=== PATIENT | female | born 1975 | race Caucasian/White ===

== ENCOUNTER 2022-04-21 23:03 | Inpatient (IN) | payer OTHER, SELFPAY ==
[2022-04-21 23:31] LABS: Arterial Blood Carboxyhemoglob 1.2 % (0-1.5); Blood Gas Oxyhemoglobin 86.6 % (94-97); Blood O2 Saturation 88.5 % (92-98.5)
[2022-04-22 00:19] LABS: Absolute Lymphocytes (CBC) 0.9 K/uL (0.7-4.9); Hematocrit 38.1 % (36.0-45.0); Lymphocytes % 4.6 % (15.3-44.8); MCV 88.7 fL (80-100); MPV 7.1 fL (7.6-11.3)
[2022-04-22] MEDS ORDERED: NA CHLORIDE 0.9% 1,000 ML ONE ×2 (00:25→04:56)
[2022-04-22 00:34] LABS: Potassium 5.2 mmol/L (3.5-5.1); Troponin High Sensitivity 7.5 pg/mL (<58.9)
--- NOTE | 2022-04-22 00:50 | EDPHYS ---
Physician Documentation [facility] Name: Angelique Villalobos Age: 46 yrs Sex: Female : 1975 Arrival Date: 04/21/2022 Time: 23:09 Bed 17 Private MD: ED Physician Fady Quintero HPI: 04/21 23:35 This 46 yrs old Female presents to ER via Unassigned with complaints of low oxygen, rn difficulty breathing. 23:35 The patient has shortness of breath at rest. Onset: The symptoms/episode began/occurred rn this morning. Duration: The symptoms are continuous. The patient's shortness of breath is aggravated by nothing, is alleviated by nothing. Severity of symptoms: At their worst the symptoms were moderate in the emergency department the symptoms are unchanged. It is unknown whether or not the patient has had similar symptoms in the past. It is unknown whether or not the patient has recently seen a physician. Per EMS, called out to [facility] for low O2 and difficulty breathing. 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 Historical: - Allergies: 04/22 02:22 No Known Allergies; kl - Home Meds: 02:22 albuterol sulfate 2.5 mg/0.5 mL Inhl nebu 0.5 mL every 6 hours [Active]; aspirin 81 mg kl Oral cap 1 cap once daily [Active]; atorvastatin 20 mg oral tab [Active]; baclofen 5 mg Oral tab 1 tab 3 times per day [Active]; clonidine HCl 0.1 mg Oral tab 1 tab 3 times per day [Active]; Lovenox 60 mg/0.6 mL Sub-Q syrg 0.3 mL every 12 hours [Active]; 02:25 linezolid 600 mg oral tab 1 tab every 12 hours [Active]; Miralax 17 gram/dose Oral powd kl daily [Active]; Neurontin 100 mg Oral cap 1 cap 3 times per day [Active]; - PMHx: 02:25 anoxic brain injury; kl - Immunization history:: Adult Immunizations up to date. - Social history:: Smoking status: unknown. - History obtained from: EMS. ROS: 04/21 23:35 Unable to obtain ROS due to previous anoxic brain injury. rn Exam: 23:35 Constitutional: Patient with pallor of skin, diaphoretic, and obtunded. Head/Face: rn Normocephalic, atraumatic. Eyes: Periorbital areas with no swelling, redness, or edema. ENT: dry MM, no stridor, tracheostomy with clog in inner cannula Cardiovascular: Tachycardic, regular. No pulse deficits. Respiratory: + tachypnea with poor inspiratory air flow and high resistance to bagging Abdomen/GI: Soft, non-tender Skin: Pallor with diaphoresis or face MS/ Extremity: Pulses equal, no cyanosis. Neuro: Awake, opens and closes eyes, does not move extremities. 04/22 05:04 ECG was reviewed by the Attending Physician. rn Vital Signs: 04/21 23:35 BP 133 / 68; Pulse 122; Resp 21; Temp 97.9(TE); Pulse Ox 91% ; 04/22 00:15 BP 119 / 86; Pulse 125; Resp 21; Pulse Ox 100% on 50% Simple Mask; kl 01:00 BP 115 / 81; Pulse 112; Resp 24; Pulse Ox 100% ; kl 01:30 BP 112 / 79; Pulse 110; Resp 24; Pulse Ox 100% ; kl 04/21 23:35 inner caula removed per RT resitance resolved while bagginh kl Procedures: 04/22 12:42 Central Line: the site was prepped with Betadine, in sterile fashion, a triple lumen cy catheter was inserted, in the right femoral vein, in 1 attempts. placement was verified, the site was dressed with Tegaderm, using sterile technique, the patient tolerated the procedure, well. MDM: 04/21 23:09 Patient medically screened. rn 04/22 00:46 Differential diagnosis: pneumonia, pulmonary edema, mechanical obstruction of rn tracheostomy. Data reviewed: vital signs, nurses notes, lab test result(s), EKG, radiologic studies, plain films, and as a result, I will admit patient. Counseling: I had a detailed discussion with the patient and/or guardian regarding: the historical points, exam findings, and any diagnostic results supporting the discharge/admit diagnosis, lab results, radiology results, the need for further work-up and treatment in the hospital. Response to treatment: the patient's symptoms have markedly improved after treatment, and as a result, I will admit patient. Admission orders: after a detailed discussion of the patient's condition and case, the admit orders are written by me. ED course: Pt with bibasilar infiltrates consistent with pneumonia, has 2 or more SIRS criteria met, but no organ dysfunction criteria met, thus does not meet criteria for Severe sepsis. Will admit for pneumonia, with mechanical obstruction of tracheostomy. . 04/21 23:10 Order name: ABG; Complete Time: 23:34 04/21 23:10 Order name: SARS-COV-2 Antigen Rapid; Complete Time: 02:39 04/21 23:10 Order name: CBC with Diff; Complete Time: 00:44 04/21 23:10 Order name: Basic Metabolic Panel; Complete Time: 00:44 04/21 23:10 Order name: Troponin High Sensitivity; Complete Time: 00:44 04/21 23:10 Order name: Lactate; Complete Time: 00:44 04/21 23:10 Order name: XRAY Chest (1 view) 04/22 00:18 Order name: Blood Culture Adult (2) 04/22 01:46 Order name: Blood Culture [facility] 04/22 10:31 Order name: Sputum Culture [facility] 04/21 23:10 Order name: Suction; Complete Time: 05:09 04/21 23:10 Order name: IV Start; Complete Time: 05:09 04/21 23:11 Order name: EKG; Complete Time: 23:12 04/21 23:11 Order name: EKG - Nurse/Tech; Complete Time: 05:09 rn EC:04 Rate is 95 beats/min. Rhythm is regular. QRS [place] is Normal. CO interval is normal. QRS rn interval is normal. QT interval is normal. No Q waves. T waves are Normal. No ST changes noted. Clinical impression: Normal ECG. Interpreted by me. Reviewed by me. Administered Medications: 00:20 Drug: NS 0.9% 1000 ml Route: IV; Rate: 1000 ml; Site: left antecubital; jb4 01:39 Drug: Rocephin (cefTRIAXone) 1 grams Route: IV; Rate: calculated rate; Site: left kl antecubital; 01:46 Drug: Zithromax (azithromycin) 500 mg Route: IVPB; Infused Over: 1 hrs; Site: left kl antecubital; 04:52 Drug: NS 0.9% 1000 ml Route: IV; Rate: 1000 ml; Site: left antecubital; 5 Disposition: 00:49 Critical Care:. rn Disposition Summary: 04/22/22 00:49 Hospitalization Ordered Hospitalization Status: Inpatient Admission rn Provider: Tim Conde rn Condition: Stable rn Problem: new rn Symptoms: have improved rn Bed/Room Type: Standard rn Location: Telemetry/MedSurg (Inpatient)(04/22/22 16:25) eb Room Assignment: 221(04/22/22 16:36) eb Diagnosis - Pneumonia, unspecified organism rn - Tracheostomy complications - Mechanical obstruction rn - Hypoxemia rn Forms: - Medication Reconciliation Form rn - SBAR form or rn time excluding procedures: 00:49 Critical care time: Bedside Care: 30 minutes, Consultation: 5 minutes. Total time: 35 rn minutes Signatures: Dispatcher [employer] EDAyala Pineda RN RN Demetra Bo RN RN Bar Sifuentes MD MD cha Nieto, Roman, MD MD rn Bryson, James, RN RN Tawanna Roman Sarah RN RN aries5 Elyse Henley PA PA sb3 Corrections: (The following items were deleted from the chart) 01:48 00:49 Telemetry/MedSurg (Inpatient) rn mw 01:48 00:49 rn mw 16:25 01:48 BR ER HOLD mw eb 16:25 01:48 ERHOLD- mw eb 16:36 16:25 205 eb eb
--- NOTE | 2022-04-22 00:50 | ER ---
Nurse's Notes [facility] Name: Angelique Villalobos Age: 46 yrs Sex: Female : 1975 Arrival Date: 04/21/2022 Time: 23:09 Bed 17 Private MD: Diagnosis: Pneumonia, unspecified organism;Tracheostomy complications-Mechanical obstruction;Hypoxemia Presentation: 04/21 23:35 Chief complaint: EMS states: respiratory distress difficulty administring respirations kl via trach pt resident of [facility] x 2 days S/P anoxic brain injury. Coronavirus screen: Vaccine status:. Ebola Screen: Patient negative for fever greater than or equal to 101.5 degrees Fahrenheit, and additional compatible Ebola Virus Disease symptoms. Initial Sepsis Screen: Does the patient meet any 2 criteria? HR > 90 bpm. Does the patient have a suspected source of infection? No. Patient's initial sepsis screen is negative. Risk Assessment: Do you want to hurt yourself or someone else? Patient reports no desire to harm self or others. Onset of symptoms was April 21, 2022 at 18:00. Care prior to arrival: o2. 23:35 Method Of Arrival: EMS: [facility] 23:35 Acuity: DELMER 3 kl Historical: - Allergies: 04/22 02:22 No Known Allergies; kl - Home Meds: 02:22 albuterol sulfate 2.5 mg/0.5 mL Inhl nebu 0.5 mL every 6 hours [Active]; aspirin 81 mg kl Oral cap 1 cap once daily [Active]; atorvastatin 20 mg oral tab [Active]; baclofen 5 mg Oral tab 1 tab 3 times per day [Active]; clonidine HCl 0.1 mg Oral tab 1 tab 3 times per day [Active]; Lovenox 60 mg/0.6 mL Sub-Q syrg 0.3 mL every 12 hours [Active]; 02:25 linezolid 600 mg oral tab 1 tab every 12 hours [Active]; Miralax 17 gram/dose Oral powd kl daily [Active]; Neurontin 100 mg Oral cap 1 cap 3 times per day [Active]; - PMHx: 02:25 anoxic brain injury; kl - Immunization history:: Adult Immunizations up to date. - Social history:: Smoking status: unknown. - History obtained from: EMS. Screenin:21 Abuse screen: Denies threats or abuse. Nutritional screening: No deficits noted. Tuberculosis screening: No symptoms or risk factors identified. Fall Risk None identified. Assessment: 04/21 23:40 General: Appears distressed, slender, Behavior is anxious. Pain: Unable to use pain kl scale. Neuro: Strong Agitation-Sedation Scale (RASS): +1 Restless Level of Consciousness is awake, alert. Cardiovascular: Capillary refill < 3 seconds Rhythm is sinus tachycardia. Respiratory: Airway via trache Respiratory effort is labored, Breath sounds are coarse bilaterally. GI: PEG tube Bowel sounds present X 4 quads. : No deficits noted. EENT: Derm: Skin is intact, Skin is diaphoretic, Skin is flushed, Skin temperature is warm IV noted to left upper arm last dated 04/10/22 2nd IV noted to left forearm dated 04/10/22 IVs unable to flush IVs removed. Musculoskeletal: Bilateral foot drop noted heel protectors in place. Vital Signs: 23:35 BP 133 / 68; Pulse 122; Resp 21; Temp 97.9(TE); Pulse Ox 91% ; 04/22 00:15 BP 119 / 86; Pulse 125; Resp 21; Pulse Ox 100% on 50% Simple Mask; kl 01:00 BP 115 / 81; Pulse 112; Resp 24; Pulse Ox 100% ; kl 01:30 BP 112 / 79; Pulse 110; Resp 24; Pulse Ox 100% ; 04/21 23:35 inner caula removed per RT resitance resolved while bagginh ED Course: 23:09 Patient arrived in ED. rn 23:09 Fady Quintero MD is Attending Physician. rn 23:41 XRAY Chest (1 view) In Process Unspecified. EDMS 23:53 Triage completed. 04/22 00:27 Troponin High Sensitivity Sent. kl 00:28 Lactate Sent. kl 00:28 Basic Metabolic Panel Sent. kl 00:49 Tim Conde MD is Hospitalizing Provider. rn 01:46 Blood Culture Adult (2) Sent. kl 02:21 No provider procedures requiring assistance completed. Patient admitted, IV remains in kl place. 02:21 Arm band placed on left ankle. kl 02:28 Blood Culture Sent. kl 02:28 Patient has correct armband on for positive identification. kl 04:52 Magali Reyes, RN is Primary Nurse. sm5 08:00 Primary Nurse role handed off by Magali Reyes RN 11:29 Aravind Stringer, RN is Primary Nurse. bp 12:08 Missed attempt(s): 20 gauge in right antecubital area. Bleeding controlled, band aid mb7 applied, catheter tip intact. Administered Medications: 00:20 Drug: NS 0.9% 1000 ml Route: IV; Rate: 1000 ml; Site: left antecubital; jb4 01:39 Drug: Rocephin (cefTRIAXone) 1 grams Route: IV; Rate: calculated rate; Site: left kl antecubital; 01:46 Drug: Zithromax (azithromycin) 500 mg Route: IVPB; Infused Over: 1 hrs; Site: left kl antecubital; 04:52 Drug: NS 0.9% 1000 ml Route: IV; Rate: 1000 ml; Site: left antecubital; sm5 Medication: 02:28 VIS not applicable for this client. Outcome: 00:49 Decision to Hospitalize by Provider. rn 02:21 Admitted to ER Hold. Please see [facility] for further documentation. 02:21 Condition: improved 17:16 Admitted to Med/surg accompanied by tech, via stretcher, room 221, with oxygen, with bp chart, Report called to YONAS HERRERA 17:47 Patient left the ED. bp Signatures: Dispatcher [employer] EDMS Ayala Canchola, RN Fady Rich MD MD rn Bryson, James, RN RN jb4 Aravind Stringer, Tawanna Leal RN, Mary mb7 Magali Reyes, RN RN sm5
[2022-04-22] MEDS ORDERED: CEFTRIAXONE 1000 MG/VIAL ONE (00:57)
[2022-04-22] MEDS ORDERED: AZITHROMYCIN 500 MG INJ IVPB ONE (00:57)
[2022-04-22] MEDS ORDERED: NA CHLORIDE 0.9% 50 ML ONE (00:58)
[2022-04-22] MEDS ORDERED: NA CHLORIDE 0.9% 100 ML ONE ×3 (00:58→08:58)
--- NOTE | 2022-04-22 01:34 | P.HP ---
Certification for Inpatient Patient admitted to: Inpatient With expected LOS: >2 Midnights Patient will require the following post-hospital care: [facility] Practitioner: I am a practitioner with admitting privileges, knowledge of patient current condition, hospital course, and medical plan of care. Services: Services provided to patient in accordance with Admission requirements found in Title 42 Section 412.3 of the Code of Federal Regulations Patient History Date of Service: 04/22/22 Reason for admission: Pneumonia, Hypoxia History of Present Illness: Patient is a 46-year-old female with anoxic brain injury dependent on tracheostomy who presented to the ED via EMS after patient was noted to be hypoxic at [facility]. EMS reports that her CO2 is greater than 150 and her oxygen saturation was 12%. Upon arrival to the ER, suction was done and patient's oxygen saturation improved greatly. She was also noted to be tachycardic. ABG with pH of 7.37, PCO2 48.2, P O2 61.7. chest x-ray showed patchy bibasilar opacities concerning for pneumonia. Labs significant for WBC 19.4, potassium 5.2, glucose 199, BUN 26. Lactate within normal limits. She was started on Rocephin azithromycin in the ED. I spoke with her daughter on the phone who states that about 2-1/2 months ago, patient had an opiate overdose and later experienced a bilateral pontine stroke resulting in her current deficits. She was only discharged from [facility] few days ago and taken to [facility]. Patient states that her baseline is that she can understand you but cannot follow commands. She can blink to communicate although is less cooperative with nursing staff. Daughter reports that she has been undergoing treatment for aspiration pneumonia for quite some time. It appears that patient takes linezolid daily. 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 Home medications list reviewed: Yes - Past Medical/Surgical History Diabetic: No -: Anoxic Brain Injury -: Hysterectomy -: G Tube -: Tracheostomy Psychosocial/ Personal History: Patient lives at [facility]. She has a daughter. - Social History Smoking Status: Former smoker Alcohol use: No CD- Drugs: No Caffeine use: No Place of Residence: [facility] Review of Systems is unable to be obtained Physical Examination - Physical Exam General: Alert, In no apparent distress HEENT: Normocephalic, Sclerae nonicteric Neck: JVD not distended, Other (tracheostomy) Respiratory: Dull Cardiovascular: No edema, Other (tachycardic) Gastrointestinal: Normal bowel sounds, No tenderness Musculoskeletal: No tenderness Integumentary: No rashes Neurological: Abnormal strength, Abnormal affect - Studies Laboratory Data (last 24 hrs) 04/21/22 23:58: Sodium 138, Potassium 5.2 H, BUN 26 H, Creatinine 0.94, Glucose 199 H 04/21/22 23:58: WBC 19.4 H, Hgb 12.6, Hct 38.1, Plt Count 506 H Assessment and Plan - Problems (Diagnosis) (1) Tracheostomy obstruction Current Visit: Yes Status: Acute (2) Pneumonia Current Visit: Yes Status: Acute Qualifiers: Pneumonia type: due to unspecified organism Laterality: bilateral Lung location: unspecified part of lung Qualified Code(s): J18.9 - Pneumonia, unspecified organism (3) History of anoxic brain injury Current Visit: Yes Status: Chronic (4) Leukocytosis Current Visit: Yes Status: Acute Qualifiers: Leukocytosis type: unspecified Qualified Code(s): D72.829 - Elevated white blood cell count, unspecified (5) Tachycardia Current Visit: Yes Status: Acute (6) Hypoxia Current Visit: Yes Status: Acute - Plan -Unasyn for likely aspiration pneumonia. Patient is tachycardic with leukocytosis but lactate WNL and no organ dysfunction. Blood & Sputum culture ordered. -Unsure of patient's baseline mental status but she was hypoxic for several hours, potentially days, with elevated CO2 and could likely have further damage -Monitor pulse ox and on telemetry. Scheduled breathing treatment. Suction as needed -Resume tube feeds -Monitor and replete electrolytes per protocol -Reconcile and continue home medications -Lovenox for VTE ppx -Full code Discharge Plan: [facility] Plan to discharge in: Greater than 2 days - Advance Directives Does patient have a Living Will: No Does patient have a Durable POA for Healthcare: No - Code Status/Comfort Care Code Status Assessed: Yes (Full) Critical Care: No Time Spent Managing Pts Care (In Minutes): 70
[2022-04-22 02:27] LABS: SARS-CoV-2 Antigen Rapid Res Negative (Negative)
[2022-04-22] MEDS: IPRATROPIUM BROM 0.5MG/2.5ML NEB SCH ×4 (05:05→19:50)
[2022-04-22] MEDS: ALBUTEROL 2.5 MG/3 ML NEB SOL NEB SCH ×4 (05:05→19:50)
[2022-04-22 05:20] VITALS: BMI 23.8
[2022-04-22] MEDS: AMPICILLIN/SULBACT 1.5 GM in NA CHLORIDE 0.9% 100 ML IVPB SCH ×3 (06:00→19:30)
[2022-04-22] MEDS ORDERED: AMPICILLIN/SULBACT 1.5GM VIAL ONE ×2 (06:44→08:58)
[2022-04-22] MEDS: ENOXAPARIN 60 MG/0.6 ML SQ SCH ×2 (06:44→21:29)
[2022-04-22] MEDS ORDERED: ENOXAPARIN 60 MG/0.6 ML SQ ONE (06:45)
[2022-04-22] MEDS ORDERED: ALBUTEROL 2.5 MG/3 ML NEB SOL ONE ×2 (08:03→13:19)
[2022-04-22] MEDS ORDERED: IPRATROPIUM BROM 0.5MG/2.5ML ONE ×2 (08:03→13:19)
[2022-04-22] MEDS ORDERED: ALBUTEROL 2.5 MG/3 ML NEB SOL NEB SCH (12:00)
--- NOTE | 2022-04-22 12:12 | RAD REPORT ---
EXAM DESCRIPTION: RAD - Chest Single View - 04/21/2022 11:35 pm CLINICAL HISTORY: Hypoxia COMPARISON: None. FINDINGS: Single frontal view of the chest. Tubes and lines: Right PICC. Leads overlie the chest. Cardiomediastinal silhouette: Heart is not enlarged. Lungs: Patchy bibasilar opacities. Low lung volumes. No pneumothorax. Bones: No definite acute abnormality. Upper abdomen: Gastrostomy tube. No acute findings. IMPRESSION: 1. Patchy bibasilar opacities concerning for pneumonia. Electronically signed by: Rustam Almanzar 04/21/2022 11:50 PM CDT Due to temporary technical issues with the PACS/Fluency reporting system, reports are being signed by the in house radiologists without review as a courtesy to insure prompt reporting. The interpreting radiologist is fully responsible for the content of the report.
[2022-04-22] MEDS: HYDROMORPHONE HCL 1 MG/ML INJ IV PRN (13:45)
[2022-04-22] MEDS: BACLOFEN 10 MG TAB PO SCH ×2 (14:00→21:28)
[2022-04-22] MEDS ORDERED: cloNIDine HCL 0.1 MG TAB ONE (14:00)
[2022-04-22] MEDS: GABAPENTIN 100 MG CAP PO SCH ×2 (14:00→21:28)
[2022-04-22] MEDS: cloNIDine HCL 0.1 MG TAB PO SCH ×2 (14:00→21:28)
[2022-04-22] MEDS ORDERED: HYDROMORPHONE HCL 1 MG/ML INJ ONE (14:01)
--- NOTE | 2022-04-22 15:19 | EKG ---
Test Date: 2022-04-22 Test Time: 04:57:53 Wine Specialist: VANNESA MEASUREMENT RESULTS: Intervals: Rate: 95 MD: 176 QRSD: 76 QT: 372 QTc: 467 [place]: P: 76 MD: 176 QRS: 83 T: 67 INTERPRETIVE STATEMENTS: Normal sinus rhythm Normal ECG No previous ECG available for comparison Electronically Signed On 04-22-22 15:18:31 CDT by Eddie Freeman
--- NOTE | 2022-04-22 18:45 | RAD REPORT ---
EXAM DESCRIPTION: CT - Chest Angio - 04/22/2022 5:34 pm CLINICAL HISTORY: Chest pain. Rule out PE COMPARISON: No comparisons TECHNIQUE: CT angiogram of the pulmonary arteries was performed with MIP. All CT scans are performed using dose optimization technique as appropriate and may include automated exposure control or mA/KV adjustment according to patient size. FINDINGS: No evidence of pulmonary thromboembolism. No acute aortic finding demonstrated. Tracheostomy tube is noted. Tip is above the ketty. There is mucous plugging seen in the lower lobe posterior bronchitis bilaterally, greater on the left. Moderate opacities both posterior lung bases p robably represent atelectasis. No significant pericardial or pleural fluid. No concerning bony finding. IMPRESSION: No evidence of pulmonary thromboembolism. Mucous plugging is noted in both posterior lower lobe bronchi with associated bibasilar atelectasis.
[2022-04-22] MEDS: ATORVASTATIN 20 MG TAB PO SCH (21:28)
[2022-04-23] MEDS ORDERED: NA CHLORIDE 0.9% 100 ML ONE ×2 (00:59→05:31)
[2022-04-23] MEDS: AMPICILLIN/SULBACT 1.5 GM in NA CHLORIDE 0.9% 100 ML IVPB SCH ×5 (01:10→23:16)
[2022-04-23] MEDS: ALBUTEROL 2.5 MG/3 ML NEB SOL NEB SCH ×4 (01:50→19:50)
[2022-04-23] MEDS: IPRATROPIUM BROM 0.5MG/2.5ML NEB SCH ×4 (01:50→19:50)
[2022-04-23] MEDS ORDERED: AMPICILLIN/SULBACT 1.5GM VIAL ONE (05:28)
[2022-04-23 06:34] LABS: Absolute Lymphocytes (CBC) 1.4 K/uL (0.7-4.9); Hematocrit 27.1 % (36.0-45.0); Lymphocytes % 25.1 % (15.3-44.8); MCV 87.3 fL (80-100); MPV 6.8 fL (7.6-11.3); RBC Red Blood Cell Count 3.11 M/uL (3.86-4.86)
[2022-04-23 06:52] LABS: Phosphorus 2.8 mg/dL (2.5-4.9); Potassium 3.4 mmol/L (3.5-5.1)
[2022-04-23] MEDS: ENOXAPARIN 60 MG/0.6 ML SQ SCH ×2 (09:37→22:36)
[2022-04-23] MEDS: POLYETHYL GLY 3350 17 GM/DOSE PO SCH (09:38)
[2022-04-23] MEDS: GABAPENTIN 100 MG CAP PO SCH ×3 (09:38→22:38)
[2022-04-23] MEDS: cloNIDine HCL 0.1 MG TAB PO SCH ×3 (09:38→22:37)
[2022-04-23] MEDS: ASPIRIN EC 81 MG TAB PO SCH (09:38)
[2022-04-23] MEDS: BACLOFEN 10 MG TAB PO SCH ×3 (09:38→22:36)
[2022-04-23] MEDS: JEVITY 1.2 CAL LIQUID 1,000 ML BOT FT SCH ×4 (09:39→22:38)
[2022-04-23] MEDS: KCL 20 MEQ/100 mL IVPB 20 MEQ/100 ML BAG IV SCH ×2 (09:39→11:30)
--- NOTE | 2022-04-23 14:06 | P.PN ---
Subjective Date of Service: 04/23/22 Subjective: No new changes, Other (s/p anoxic brain injury and noncommunicative verbally.) Review of Systems is unable to be obtained Physical Examination - Vital Signs Temperature: 98.6 F Blood Pressure: 140/75 Pulse: 112 Respirations: 20 Pulse Ox (%): 99 - Physical Exam General: Alert, In no apparent distress HEENT: Atraumatic, PERRLA, EOMI Neck: Supple, JVD not distended, Other ( tracheostomy in place with trach collar) Respiratory: Diminished Cardiovascular: Regular rate/rhythm, Normal S1 S2 Gastrointestinal: Normal bowel sounds, No tenderness, Other ( peg tube in place) Musculoskeletal: No tenderness Integumentary: No rashes Neurological: Abnormal gait, Abnormal speech, Abnormal strength, Abnormal tone, Abnormal sensation Urinary: Randolph catheter - Studies Microbiology Data (last 24 hrs): 04/22/22 00:20 Sputum Sputum Gram Stain - Final 04/22/22 01:20 Blood - Blood Anaerobic Blood Culture - Final Medications List Reviewed: Yes Assessment & Plan - Problems (Diagnosis) (1) Aspiration pneumonia Current Visit: Yes Status: Acute (2) Status post tracheostomy Current Visit: Yes Status: Acute (3) History of anoxic brain injury Current Visit: Yes Status: Chronic (4) S/P percutaneous endoscopic gastrostomy (PEG) tube placement Current Visit: Yes Status: Acute - Plan plan: 1. Continue with antibiotics for pneumonia 2. Scopolamine patch for secretions 3. Continue with Atrovent nebs to decrease secretions as well. 4. Patient should be stable to go back to [facility]. Clinically back to baseline according to daughter who I spoke with. 5. They are wanting physical therapy and speech therapy 6. Gi DVT prophylaxis Discharge Plan: Home Plan to discharge in: 48 Hours - Advance Directives Does patient have a Living Will: No Does patient have a Durable POA for Healthcare: No - Code Status/Comfort Care Code Status Assessed: Yes Code Status: Full Code Critical Care: No Time Spent Managing PTS Care (In Minutes): 35
[2022-04-23] MEDS: ATORVASTATIN 20 MG TAB PO SCH (22:37)
[2022-04-24] MEDS: ALBUTEROL 2.5 MG/3 ML NEB SOL NEB SCH ×4 (01:45→19:50)
[2022-04-24] MEDS: IPRATROPIUM BROM 0.5MG/2.5ML NEB SCH ×4 (01:45→19:50)
[2022-04-24] MEDS: AMPICILLIN/SULBACT 1.5 GM in NA CHLORIDE 0.9% 100 ML IVPB SCH (05:07)
[2022-04-24 06:18] LABS: Absolute Lymphocytes (CBC) 1.5 K/uL (0.7-4.9); Lymphocytes % 23.5 % (15.3-44.8); MCV 87.1 fL (80-100); MPV 7.3 fL (7.6-11.3); RBC Red Blood Cell Count 3.21 M/uL (3.86-4.86)
[2022-04-24 06:27] LABS: Magnesium 1.9 mg/dL (1.8-2.4); Potassium 3.3 mmol/L (3.5-5.1)
--- NOTE | 2022-04-24 07:29 | RAD REPORT ---
EXAM DESCRIPTION: RAD - Chest Single View - 04/24/2022 6:56 am CLINICAL HISTORY: pneumonia COMPARISON: Chest Single View dated 04/21/2022; Chest Angio dated 04/22/2022 FINDINGS: Lines: None. Lungs: Mild basilar opacities similar to 04/21/2022. Pleural: No significant pleural effusions or pneumothorax. Cardiac: The heart size is within normal limits. Bones: No acute fractures. Other: Tracheostomy. IMPRESSION: Similar mild basilar airspace disease that may reflect a combination of atelectasis, pne umonia, or aspiration pneumonitis.
[2022-04-24] MEDS ORDERED: POTASSIUM 25 MEQ EFFERV TAB PO ONE ×2 (08:00→17:00)
[2022-04-24] MEDS: POLYETHYL GLY 3350 17 GM/DOSE PO SCH (08:35)
[2022-04-24] MEDS: GABAPENTIN 100 MG CAP PO SCH ×3 (08:35→20:54)
[2022-04-24] MEDS: ENOXAPARIN 60 MG/0.6 ML SQ SCH ×2 (08:35→20:57)
[2022-04-24] MEDS: BACLOFEN 10 MG TAB PO SCH ×3 (08:36→20:56)
[2022-04-24] MEDS: ASPIRIN EC 81 MG TAB PO SCH (08:36)
[2022-04-24] MEDS: JEVITY 1.2 CAL LIQUID 1,000 ML BOT FT SCH ×4 (08:36→20:57)
[2022-04-24] MEDS: cloNIDine HCL 0.1 MG TAB PO SCH ×3 (08:45→20:54)
[2022-04-24] MEDS: PIPER TAZO 3.375 GM in NA CHLORIDE 0.9% 100 ML IV SCH (17:24)
[2022-04-24 18:53] LABS: Urine Bilirubin Negative (Negative); Urine Blood Negative (Negative); Urine Clarity Clear (Clear); Urine Color Yellow (Yellow); Urine Glucose Negative (Negative); Urine Protein Negative (Negative); Urine Urobilinogen 0.2 mg/dL (0.2-1.0); Urine pH 7.5 (5.0-7.0)
[2022-04-24 20:53] VITALS: O2SAT 100
[2022-04-24] MEDS: ATORVASTATIN 20 MG TAB PO SCH (20:55)
[2022-04-24] MEDS: SCOPOLAMINE HYDROBROMIDE PATCH TD ONE ×2 (22:02→22:07)
[2022-04-25] MEDS: PIPER TAZO 3.375 GM in NA CHLORIDE 0.9% 100 ML IV SCH (00:31)
[2022-04-25] MEDS: IPRATROPIUM BROM 0.5MG/2.5ML NEB SCH ×3 (01:30→14:00)
[2022-04-25] MEDS: ALBUTEROL 2.5 MG/3 ML NEB SOL NEB SCH ×3 (01:30→14:00)
--- NOTE | 2022-04-25 08:05 | P.PN ---
Date of Service: 04/24/22 Subjective Subjective: No new changes, Other (s/p anoxic brain injury and noncommunicative verbally.) Review of Systems is unable to be obtained Physical Examination - Vital Signs reviewed - Physical Exam General: Alert, In no apparent distress Neck: Supple, JVD not distended, Other ( tracheostomy in place with trach collar) Respiratory: Diminished Cardiovascular: Regular rate/rhythm, Normal S1 S2 Gastrointestinal: Normal bowel sounds, No tenderness, Other ( peg tube in place) Musculoskeletal: No tenderness Neurological: Abnormal gait, Abnormal speech, Abnormal strength, Abnormal tone, Abnormal sensation Assessment & Plan - Problems (Diagnosis) (1) Aspiration pneumonia Current Visit: Yes Status: Acute (2) Status post tracheostomy Current Visit: Yes Status: Acute (3) History of anoxic brain injury Current Visit: Yes Status: Chronic (4) S/P percutaneous endoscopic gastrostomy (PEG) tube placement Current Visit: Yes Status: Acute - Plan continue with plan of care as mentioned below: 1. Continue with antibiotics for pneumonia 2. Scopolamine patch for secretions 3. Continue with Atrovent nebs to decrease secretions as well. 4. Patient should be stable to go back to [facility]. Clinically back to baseline according to daughter who I spoke with. 5. They are wanting physical therapy and speech therapy 6. Gi DVT prophylaxis Discharge Plan: [facility] Plan to discharge in: 48 Hours - Advance Directives Does patient have a Living Will: No Does patient have a Durable POA for Healthcare: No - Code Status/Comfort Care Code Status Assessed: Yes Code Status: Full Code Critical Care: No Time Spent Managing PTS Care (In Minutes): 35
[2022-04-25] MEDS ORDERED: CEFEPIME 1 GM in NA CHLORIDE 0.9% 100 ML IV SCH (09:00)
[2022-04-25] MEDS: GABAPENTIN 100 MG CAP PO SCH ×2 (09:58→14:02)
[2022-04-25] MEDS: ASPIRIN EC 81 MG TAB PO SCH (09:58)
[2022-04-25] MEDS: POLYETHYL GLY 3350 17 GM/DOSE PO SCH (09:58)
[2022-04-25] MEDS: BACLOFEN 10 MG TAB PO SCH ×2 (09:58→14:02)
[2022-04-25] MEDS: cloNIDine HCL 0.1 MG TAB PO SCH ×2 (09:58→13:56)
[2022-04-25] MEDS: ENOXAPARIN 60 MG/0.6 ML SQ SCH (09:58)
[2022-04-25] MEDS: JEVITY 1.2 CAL LIQUID 1,000 ML BOT FT SCH ×3 (09:59→17:00)
[2022-04-25 11:15] LABS: Albumin 2.6 g/dL (3.4-5.0); Bilirubin Total 0.2 mg/dL (0.2-1.0); Potassium 4.1 mmol/L (3.5-5.1); Protein, Total 6.5 g/dL (6.4-8.2)
--- NOTE | 2022-04-25 12:44 | RAD REPORT ---
EXAM DESCRIPTION: RAD - Chest Single View - 04/25/2022 12:37 pm CLINICAL HISTORY: PICC line placement COMPARISON: Chest Single View dated 04/24/2022; Chest Single View dated 04/21/2022 FINDINGS: Portable chest was obtained following placement of a right upper extremity PICC line. The catheter tip projects over the SVC/right atrium junction.
[2022-04-25 16:29] VITALS: TEMP 97.5
[2022-04-25] MEDS ORDERED: Meropenem 500 MG in NA CHLORIDE 0.9% 100 ML IV SCH (17:00)
--- NOTE | 2022-04-25 17:09 | P.DS ---
Admission Date: 04/22/22 Discharge Date: 04/25/22 Disposition: TRANSFER TO JAIL Discharge Condition: GOOD Reason for Admission: Pneumonia, Hypoxia Consultations: 1. Infectious Diseases Hospital Course: DIAGNOSES: # Sepsis secondary to Multi-Drug Resistant Enterobacter Cloacae Pneumonia (Aspiration?) # Acute on Chronic Hypoxemic Respiratory Failure secondary to Mucous Plugging +/- Pneumonia # KDIGO Stage I Acute Kidney Injury (resolved) # Mucous Plugging # History of Opioid Overdose complicated by Anoxic Brain Injury now Trach/PEG- dependent HOSPITAL COURSE: Ms. Angelique Villalobos is a 46 year old female with a past medical history significant for opioid overdose complicated by an anoxic brain injury now dependent on tracheostomy and PEG tube who was admitted to the [facility] on 04/22/2022 for hypoxia. Upon further evaluation, chest x-ray revealed, "patchy bibasilar opacities conc erning for pneumonia." A CT chest angiogram revealed, "no evidence of pulmonary thromboembolism. Mucous plugging is noted in both posterior lower lobe bronchi with associated bibasilar atelectasis." She was treated with IV antibiotics, with improvement in her vital signs as well as her leukocytosis. Her sputum culture returned positive for multidrug resistant Enterobacter Cloacae pneumonia (thought to be aspiration-induced). Infectious Diseases was consulted, and recommended 7-days of meropenem 500 mg IV q8hr. With the assistance of Case Management, outpatient IV antibiotics were coordination. On 04/25/2022, she was seen on rounds and deemed medically stable for discharge back to [facility]. She was discharged with an instruction sheet for the outside facility to administer the meropenem for her pneumonia as well as for them to given scopolamine and ipratropium for her copious secretions. Today, I personally spent 20 minutes on her case. Vital Signs/Physical Exam: Temp Pulse Resp BP Pulse Ox 97.5 F 106 H 16 130/62 99 04/25/22 16:00 04/25/22 16:00 04/25/22 16:00 04/25/22 16:04/25/22 16:00 General: Alert, In no apparent distress, Other (nonverbal at baseline) HEENT: Atraumatic, Mucous membr. moist/pink, Other (trach in place - clean, dry, and intact), Sclerae nonicteric Neck: Supple, JVD not distended Respiratory: Diminished Cardiovascular: No edema, Regular rate/rhythm, Normal S1 S2, No gallops, No rubs, No murmurs Gastrointestinal: Hypoactive, Soft and benign, No tenderness, No rebound, No guarding, Other (PEG tube in place - clean, dry, and intact) Musculoskeletal: No clubbing Integumentary: No rashes Neurological: Other (nonverbal) Laboratory Data at Discharge: WBC 6.5 K/uL (4.3-10.9) D 04/24/22 05:09 Hgb 9.6 g/dL (12.0-15.0) L 04/24/22 05:09 Hct 28.0 % (36.0-45.0) L 04/24/22 05:09 Plt Count 347 K/uL (152-406) 04/24/22 05:09 Sodium 139 mmol/L (136-145) 04/25/22 10:40 Potassium 4.1 mmol/L (3.5-5.1) 04/25/22 10:40 BUN 13 mg/dL (7-18) 04/25/22 10:40 Creatinine 0.57 mg/dL (0.55-1.3) 04/25/22 10:40 Glucose 129 mg/dL (74-106) H 04/25/22 10:40 Phosphorus 2.8 mg/dL (2.5-4.9) 04/23/22 06:15 Magnesium 1.9 mg/dL (1.8-2.4) 04/24/22 05:09 Total Bilirubin 0.2 mg/dL (0.2-1.0) 04/25/22 10:40 AST 32 U/L (15-37) 04/25/22 10:40 ALT 28 U/L (12-78) 04/25/22 10:40 Alkaline Phosphatase 71 U/L (45-117) 04/25/22 10:40 Home Medications: Albuterol Neb [Proventil 0.083% Neb Soln] 1 amp NEB Q6HR 04/22/22 Aspirin [Aspirin EC 81 MG] 81 mg PO DAILY 04/22/22 Atorvastatin Calcium 20 mg PO DAILY 04/22/22 Baclofen 5 mg PO TID 04/22/22 Enoxaparin Sodium [Lovenox 60 MG INJ*] 60 mg SQ BID* 04/22/22 Gabapentin [Neurontin*] 100 mg PO TID 04/22/22 Polyethylene Glycol 3350 [Miralax] 17 gm PO DAILY 04/22/22 cloNIDine HCL [Clonidine HCl] 0.1 mg PO TID 04/22/22 Ipratropium Neb [Atrovent*] 0.5 mg NEB [id number] amp 04/25/22 Jevity 1.2 Danie Liquid 240 ml FT QID bot 04/25/22 Meropenem-0.9% Sodium Chloride [Meropenem-0.9% NaCl 500 mg/50] 500 mg IV Q8HR 7 Days #1050 ml 04/25/22 Scopolamine Hydrobromide [Transderm-Scop*] 1 pat TD Q3D@0900 patch 04/25/22 New Medications: Meropenem-0.9% Sodium Chloride [Meropenem-0.9% NaCl 500 mg/50] 500 mg IV Q8HR 7 Days #1050 ml Diet: Tube Feeds Activity: Bedrest Followup: Wiliam Nuñez MD [ACTIVE - CAN ADMIT] - NONE,NONE [Primary Care Provider] - Time spent managing pt's care (in minutes): 20
--- NOTE | 2022-04-25 18:29 | CON ---
History Of Present Illness: This is a 46-year-old female with significant history of anoxic brain in [facility], tracheostomy dependent, coming to the emergency room with hypoxia. The patient has been admitt ed to hospital with aspiration pneumonia. The patient is unable to give any history. Most of the hi story was obtained through medical records and staff. The patient is lying in bed with trach in plac e. Past Medical History: Anoxic brain injury, hysterectomy, G-tube placement, tracheostomy. Social History: Former smoker. No alcohol use. Family History: Noncontributory. Medications: Unasyn. See MAR for other medications. Allergies: NO KNOWN DRUG ALLERGIES. Review of Systems: Unable to obtain. Physical Examination: General: This is a 46-year-old female, lying in bed, not in any acute cardiopulmonary distress. Vital Signs: Temperature 97, pulse 70, respirations 14, blood pressure 99/53. HEENT: Unremarkable. Neck: Supple. Trach in place. Lungs: Basal crackles. Heart: S1, S2. Regular. Abdomen: Soft, nontender. Bowel sounds present. Extremity: No edema. Laboratory Data: Shows WBC 6.5 down from 19.4, hemoglobin 9.6, platelets are 347. Chemistry shows s odium 139, potassium 4.1, chloride 106, bicarb 29, BUN 13, creatinine 0.5, glucose 129. Sputum cultu res are growing Enterobacter cloacae from 04/22, resistant to Unasyn, sensitive to Merrem and Zosyn. Assessment And Plan: A 46-year-old female with [facility], coming in with aspiration pneumonia. Sputum culture growing multidrug resistant Enterobacter santi acae, sensitive to meropenem and Zosyn. Currently being treated with Unasyn. Continue antibiotic tr eatment. Consider switching to meropenem as the patient is resistant to Unasyn, total treatment of 7 days. We will follow the patient. Continue supportive care and antibiotic. Monitor for signs of i nfection with WBC and fever trend. No other recommendation at this time. NF/MODL Voice ID: [id number] Report ID: [id number]
[2022-04-25 20:06] VITALS: BP 127/79
[2022-04-25] MEDS: HYDROMORPHONE HCL 1 MG/ML INJ IV PRN (20:09)
[2022-04-27] MEDS ORDERED: SCOPOLAMINE HYDROBROMIDE PATCH TD SCH (09:00)
== END 2022-04-25 21:12 | DRG 871 ==
LOC: ER 23:03 → ERHOLD 04-22 02:23 → 2ND 04-22 17:15
PROVIDERS: ADMIT Internal Medicine Sleep Medicine; ATTEND Internal Medicine Sleep Medicine
PROC: 02HV33Z Insertion of Infusion Device into Superior Vena Cava, Percutaneous Approach (ICD-10-PCS; principal; 2022-04-25)
PROC: 3E04329 Introduction of Other Anti-infective into Central Vein, Percutaneous Approach (ICD-10-PCS; 2022-04-25)
DX: A41.9 Sepsis, unspecified organism (principal); J15.6 Pneumonia due to other Gram-negative bacteria; J69.0 Pneumonitis due to inhalation of food and vomit; J96.21 Acute and chronic respiratory failure with hypoxia; G93.1 Anoxic brain damage, not elsewhere classified; Z16.24 Resistance to multiple antibiotics; Z93.0 Tracheostomy status; Z93.1 Gastrostomy status; F11.11 Opioid abuse, in remission; Z20.822 Contact with and (suspected) exposure to COVID-19
CPT/HCPCS: 36415; 36569; 71045; 71275; 80048; 80053; 81003; 82805; 82947; 83605; 83735; 83880; 84100; 84132; 84145; 84484; 85025; 87040; 87070; 87077; 87186; 87205; 87811; 93005; 94760; 96374; 96375; 97161; 99285; J0295; J0456; J0692; J1170; J1650; J2543; J3480; J7030; Q9967; U0003

== ENCOUNTER 2022-04-29 11:02 | Inpatient (IN) | payer OTHER, SELFPAY ==
--- OUTSIDE RECORDS SUMMARY | 2022-04-29 11:05 | XMS REPORT | Continuity of Care Document ---
:1975 Author Organization [facility] [place] t Address [address] [place] [id number] Care Team Providers Name Role Phone [email or web address] Attending Clinician Unavailable [email or web address] Admitting Clinician Unavailable Payers Payer Name Policy Type Policy Number Effective Date Expiration Date S juanjose MEDICAID - 000 [id number] - PENDING Problems This patient has no known problems. Allergies, Adverse Reactions, Alerts This patient has no known allergies or adverse reactions. Medications This patient has no known medications. Procedures This patient has no known procedures. Encounters Start End Encounter Admission Attending Care Care Encounter Source Date/Time Date/Time Type Type Clinicians Facility Department ID 2022-04-26 2022-04-26 Outpatient GC_BAHC_Tod PRIV PRIV [id number] [facility] 00:00:00 00:00:00 d_J [id number] Medica l 2022-04-22 2022-04-22 Outpatient GC_BAHC_Tod PRIV PRIV [id number] [facility] 00:00:00 00:00:00 d_J [id number] Medica l Results This patient has no known results.
[2022-04-29] MEDS ORDERED: NA CHLORIDE 0.9% 2,000 ML ONE (11:08)
[2022-04-29] MEDS ORDERED: ACETAMINOPHEN 650MG/RECT SUPP PR ONE (11:13)
[2022-04-29 11:23] LABS: Absolute Lymphocytes (CBC) 2.9 K/uL (0.7-4.9); Hematocrit 37.8 % (36.0-45.0); Lymphocytes % 10.2 % (15.3-44.8); MCV 87.3 fL (80-100); MPV 7.4 fL (7.6-11.3); RBC Red Blood Cell Count 4.33 M/uL (3.86-4.86)
[2022-04-29 11:30] LABS: Protime INR 0.96
[2022-04-29 11:41] LABS: Albumin 3.2 g/dL (3.4-5.0); Bilirubin Total 0.4 mg/dL (0.2-1.0); Potassium 5.1 mmol/L (3.5-5.1); Protein, Total 8.4 g/dL (6.4-8.2)
[2022-04-29] MEDS ORDERED: NA CHLORIDE 0.9% 100 ML ONE (12:20)
[2022-04-29] MEDS ORDERED: CEFEPIME 1 GM/VIAL ONE (12:21)
[2022-04-29] MEDS ORDERED: NA CHLORIDE 0.9% 250 ML ONE (12:23)
[2022-04-29] MEDS ORDERED: VANCOMYCIN 1 GM/VIAL ONE (12:23)
[2022-04-29 12:45] LABS: Blood Morphology Comment NOT SEEN (NOT SEEN); Platelet Estimate INCR; White Blood Cell Scan OK (OK)
--- NOTE | 2022-04-29 12:45 | ER ---
Nurse's Notes [facility] Name: Angelique Villalobos Age: 46 yrs Sex: Female : 1975 Arrival Date: 04/29/2022 Time: 10:58 Bed 4 Private MD: Diagnosis: Other specified sepsis Presentation: 04/29 11:00 Acuity: DELMER 2 iw 11:00 Chief complaint: EMS states: toned out for respiratory distress, [place] staff reported pt iw was cyanotic, EMS reports temp of 101.7 axillary, pt has hx of anoxic brain injury, tracheostomy in place, pt cannot follow commands other than blinking her eyes , can understand. Coronavirus screen: Client presents with at least one sign or symptom that may indicate coronavirus-19. Ebola Screen: Patient negative for fever greater than or equal to 101.5 degrees Fahrenheit, and additional compatible Ebola Virus Disease symptoms Patient denies exposure to infectious person. Patient denies travel to an Ebola-affected area in the 21 days before illness onset. No symptoms or risks identified at this time. Initial Sepsis Screen: Does the patient meet any 2 criteria? RR > 20 per min. Temp <36.0*C (96.8*F)) or > 38.3*C (100.9*F). HR > 90 bpm. Does the patient have a suspected source of infection? Yes: Productive cough/pneumonia If YES to both, name of provider notified: Bronson Major MD Risk Assessment: Do you want to hurt yourself or someone else? Patient reports no desire to harm self or others. 11:00 Method Of Arrival: EMS: [facility] iw 11:58 Onset of symptoms was April 29, 2022. iw Historical: - Allergies: 11:37 No Known Allergies; iw - Home Meds: 11:32 albuterol sulfate 2.5 mg/0.5 mL Inhl nebu 0.5 mL every 6 hours [Active]; aspirin 81 mg iw Oral cap 1 cap once daily [Active]; atorvastatin 20 mg Oral tab [Active]; baclofen 5 mg Oral tab 1 tab 3 times per day [Active]; clonidine HCl 0.1 mg Oral tab 1 tab 3 times per day [Active]; linezolid 600 mg Oral tab 1 tab every 12 hours [Active]; Lovenox 60 mg/0.6 mL Sub-Q syrg 0.3 mL every 12 hours [Active]; Miralax 17 gram/dose Oral powd daily [Active]; Neurontin 100 mg Oral cap 1 cap 3 times per day [Active]; - PMHx: 11:32 anoxic brain injury; iw - PSHx: 11:32 PEG tube; tracheostomy; iw Screenin:00 Abuse screen: Denies threats or abuse. Nutritional screening: No deficits noted. vg1 Tuberculosis screening: No symptoms or risk factors identified. Fall Risk No fall in past 12 months (0 pts). No secondary diagnosis (0 pts). IV access (20 points). Ambulatory Aid- None/Bed Rest/Nurse Assist (0 pts). Gait- Normal/Bed Rest/Wheelchair (0 pts) Mental Status- Total Hale Fall Scale indicates No Risk (0-24 pts). Assessment: 11:00 General: Appears distressed, uncomfortable, Behavior is cooperative. Pain: Unable to vg1 use pain scale. pt non verbal due to trach placement. Neuro: Level of Consciousness is awake, alert, Oriented to person. Cardiovascular: Rhythm is sinus tachycardia. Respiratory: Airway via trache Respiratory effort is labored, Respiratory pattern is tachypnea Breath sounds with rhonchi bilaterally. GI: Abdomen is flat, non-distended, PEG tube in place, Site clean. : No signs and/or symptoms were reported regarding the genitourinary system. EENT: No signs and/or symptoms were reported regarding the EENT system. Derm: Skin is clammy, diaphoretic, Skin is pale, appears to be bluish/purple to SALINA hands and feet. Musculoskeletal: Swelling present in right hand and left hand. 12:17 Reassessment: Patient appears in no apparent distress at this time. No changes from vg1 previously documented assessment. Patient and/or family updated on plan of care and expected duration. Pain level reassessed. pt awake and alert. 13:05 Reassessment: Patient appears in no apparent distress at this time. Patient and/or vg1 family updated on plan of care and expected duration. Pain level reassessed. pt awake and alert. 13:06 Respiratory: Respiratory effort is unlabored, Respiratory pattern is regular. Derm: vg1 Skin is dry, Skin is pink, Rash noted that is red, on back pt appears to have an ulcer to Right hip and appears to have pressure ulcer near sacrum. 14:00 Reassessment: Patient appears in no apparent distress at this time. No changes from vg1 previously documented assessment. Patient and/or family updated on plan of care and expected duration. Pain level reassessed. 15:00 Reassessment: Patient appears in no apparent distress at this time. No changes from vg1 previously documented assessment. resting with eyes closed. 16:00 Reassessment: Patient appears in no apparent distress at this time. pt reacts to verbal vg1 stimuli. Vital Signs: 11:00 BP 134 / 95; Pulse 172; Resp 32 S; Temp 103.5(R); Pulse Ox 94% on Simple Mask; Weight iw 56.7 kg (R); 11:30 BP 124 / 96; Pulse 179; Resp 35; Pulse Ox 98% on 15% Trachiostomy; vg1 11:57 Weight 58.97 kg; vg1 12:00 BP 156 / 91; Pulse 134; Resp 18; Pulse Ox 97% on 15% Trachiostomy; vg1 12:30 BP 107 / 96; Pulse 122; Resp 15; Pulse Ox 99% on 15% Trachiostomy; vg1 13:00 BP 130 / 89; Pulse 111; Resp 12; Temp 98.1(C); Pulse Ox 100% on 15% Trachiostomy; vg1 14:30 BP 128 / 88; Pulse 98; Resp 12; Pulse Ox 100% on 15% trachiostomy; vg1 15:00 BP 121 / 89; Pulse 94; Resp 13 S; Pulse Ox 99% ; jg9 15:30 BP 123 / 94; Pulse 94; Resp 12; Pulse Ox 100% on 15% Trachiostomy; vg1 16:00 BP 132 / 87; Pulse 93; Resp 10; Temp 97.4(C); Pulse Ox 100% on 15% Trachiostomy; vg1 ED Course: 10:58 Patient arrived in ED. em1 11:00 Patient has correct armband on for positive identification. Placed in gown. Bed in low vg1 position. Call light in reach. Side rails up X2. Client placed on continuous cardiac and pulse oximetry monitoring. NIBP monitoring applied. 11:04 [facility] Fairchild [facility]. jl9 11:04 Bronson Major MD is Attending Physician. jl9 11:29 Triage completed. iw 11:34 Arm band placed on. iw 11:44 Inserted. Accessed using ,sterile technique, per hospital protocol. Clean \\T\\ dry. vg1 Dressing intact. Good blood return. Flushes easily. 11:44 Assisted provider with central line placement. Set up central line tray. Triple lumen vg1 line placed in left femoral. Line placed by Bronson Major MD Placement verified by blood return, Dressed with Tegaderm, Blood was collected. Patient tolerated well. Was handwashing/sanitizing done immediately prior to procedure? Yes. Was patient positioned to in a way to prevent air embolism? Yes. Was procedure site sterilized? Yes, with Was the site allowed to dry? Yes. Was local anesthetic and/or sedation utilized? No. During the procedure, did the Practitioner(s) maintain a sterile field? Yes. Were unused ports clamped during insertion? Yes. Was a 2nd qualified MD obtained after 3 unsuccessful insertion attempts? No. Was blood aspirated from each lumen? Yes. After the procedure, did the Practitioner(s) clean the site and apply a sterile dressing? Yes. 11:50 Mallorie Sevilla, RN is Primary Nurse. vg1 11:50 Flu Sent. kc6 11:50 SARS-COV-2 RT PCR (Document "Date of Onset" if Symptomatic) Sent. kc6 12:40 Randolph cath inserted, using sterile technique, 16 Fr., balloon inflated, to gravity vg1 drainage, urine specimen collected. other completed by professional nursing assistant and instructor with RN present returned cloudy urine. Patient tolerated well. 12:44 Calvin Quintero MD is Hospitalizing Provider. kdr 12:59 Chest Single View XRAY In Process Unspecified. EDMS 13:41 CT Chest, Abdomen, Pelvis - W/Contrast In Process Unspecified. EDMS 17:14 Patient admitted, IV remains in place. vg1 Administered Medications: 11:15 Drug: Tylenol Suppository 650 mg Route: WV; vg1 13:19 Follow up: Response: Temperature is decreased vg1 11:15 Drug: NS 0.9% (30 ml/kg) 30 ml/kg Route: IV; Rate: bolus; Site: PICC; vg1 13:58 Follow up: IV Status: Completed infusion; IV Intake: 2000ml vg1 12:25 Drug: Cefepime 1 grams Route: IVPB; Rate: 200 ml/hr; Infused Over: 30 mins; Site: left vg1 femoral; 12:57 Follow up: IV Status: Completed infusion; IV Intake: 100ml vg1 13:04 Drug: vancoMYCIN 1 grams Route: IVPB; Infused Over: 2 hrs; Site: left femoral; vg1 15:25 Follow up: IV Status: Completed infusion; IV Intake: 250ml vg1 Medication: 17:13 VIS not applicable for this client. vg1 Intake: 12:57 IV: 100ml; Total: 100ml. vg1 13:58 IV: 2000ml; Total: 2100ml. vg1 15:25 IV: 2250ml; Total: 4350ml. vg1 15:25 IV: 250ml; Total: 4600ml. vg1 Output: 15:25 Urine: 250ml (Randolph); Total: 250ml. vg1 Outcome: 12:45 Decision to Hospitalize by Provider. kdr 17:13 Admitted to ICU accompanied by nurse, via stretcher, room 6, with oxygen, with chart, vg1 Report called to Tatyana HERRERA 17:13 Condition: stable 17:13 Instructed on the need for admit. 17:14 Patient left the ED. vg1 Signatures: Dispatcher [employer] EDMS Bronson Major MD MD kdr Williams, Irene, RN RN iw Marshall Espinoza Victoria, RN SHARON aaron1 Magda Newman RN RN [id number] Etienne Fairchild9 Ramona Jernigan kc6 Corrections: (The following items were deleted from the chart) 11:58 11:00 BP 134 / 95; Pulse 172bpm; Resp 32bpm; Spontaneous; Pulse Ox 94% Simple Mask; iw Temp 103.5F Rectal; iw 13:06 12:17 Reassessment: Patient appears in no apparent distress at this time. No changes vg1 from previously documented assessment. Patient and/or family updated on plan of care and expected duration. Pain level reassessed. Patient is alert, oriented x 3, equal unlabored respirations, skin warm/dry/pink. vg1 13:10 13:05 Reassessment: Patient appears in no apparent distress at this time. Patient vg1 and/or family updated on plan of care and expected duration. Pain level reassessed. vg1 13:16 11:00 Respiratory: Airway via trache Respiratory effort is labored, Respiratory pattern vg1 is tachypnea vg1 13:16 11:00 GI: Abdomen is flat, non-distended, vg1 vg1 13:19 13:06 Derm: Skin is dry, Skin is pink, vg1 vg1 16:09 16:00 BP 132 / 87; Pulse 93bpm; Resp 10bpm; Pulse Ox 100% 02 15% Trachiostomy; Temp vg1 97.4F; vg1
--- NOTE | 2022-04-29 12:45 | EDPHYS ---
Physician Documentation [facility] Name: Angelique Villalobos Age: 46 yrs Sex: Female : 1975 Arrival Date: 04/29/2022 Time: 10:58 Bed 4 Private MD: ED Physician Bronson Major HPI: 04/29 16:22 This 46 yrs old Female presents to ER via EMS with complaints of Fever, Respiratory kdr Distress. 16:22 Patient was sent from [facility] this morning when it was noted that she kdr had a fever. Also appear to be having moderate respiratory distress. It is unclear exactly how long she been ill.. Onset: The symptoms/episode began/occurred just prior to arrival, today. Severity of symptoms: At their worst the symptoms were moderate severe incapacitating in the emergency department the symptoms are unchanged are worse markedly. It is unknown whether or not the patient has had similar symptoms in the past. The patient has been recently seen by a physician: Patient was recently admitted for recent pneumonia. She was discharged from the hospital here in the last week. Historical: - Allergies: 11:37 No Known Allergies; iw - Home Meds: 11:32 albuterol sulfate 2.5 mg/0.5 mL Inhl nebu 0.5 mL every 6 hours [Active]; aspirin 81 mg iw Oral cap 1 cap once daily [Active]; atorvastatin 20 mg Oral tab [Active]; baclofen 5 mg Oral tab 1 tab 3 times per day [Active]; clonidine HCl 0.1 mg Oral tab 1 tab 3 times per day [Active]; linezolid 600 mg Oral tab 1 tab every 12 hours [Active]; Lovenox 60 mg/0.6 mL Sub-Q syrg 0.3 mL every 12 hours [Active]; Miralax 17 gram/dose Oral powd daily [Active]; Neurontin 100 mg Oral cap 1 cap 3 times per day [Active]; - PMHx: 11:32 anoxic brain injury; iw - PSHx: 11:32 PEG tube; tracheostomy; iw ROS: 16:22 Constitutional: Negative for weight loss. Patient has had fever prior to arrival Eyes: kdr Negative for injury, pain, redness, and discharge, Neck: Patient has a tracheostomy tube in place Cardiovascular: Negative for chest pain, palpitations, and edema, Abdomen/GI: Negative for abdominal pain, nausea, vomiting, diarrhea, and constipation, Back: Negative for injury and pain. 16:22 Constitutional: The only review of systems obtainable was from EMS 16:22 Respiratory: Positive for cough, shortness of breath, wheezing. 16:22 Abdomen/GI: Positive for Negative for nausea, vomiting, and diarrhea. Exam: 16:00 ECG was reviewed by the Attending Physician. kdr 16:22 Constitutional: This is a well developed, well nourished patient who is poorly kdr responsive. She does open her eyes on command and appears to blink once or twice as indicated or instructed Head/Face: Normocephalic, atraumatic. Eyes: Pupils equal round and reactive to light, extra-ocular motions intact. Lids and lashes normal. Conjunctiva and sclera are non-icteric and not injected. Cornea within normal limits. Periorbital areas with no swelling, redness, or edema. 16:22 Chest/axilla: Normal chest wall appearance and motion. Nontender with no deformity. No lesions are appreciated. Cardiovascular: Regular rate and rhythm with a normal S1 and S2. No gallops, murmurs, or rubs. Normal PMI, no JVD. No pulse deficits. 16:22 Neck: Trachea: Today tracheostomy tube in place which appears to be functional and working out has appropriate. 16:22 Chest/axilla: Inspection: no acute changes. 16:22 Respiratory: mild respiratory distress is noted, moderate respiratory distress is noted, Respirations: labored breathing, that is mild, Breath sounds: bronchial sounds, decreased breath sounds, rhonchi, that are moderate, are heard diffusely, stridor, is not appreciated, + upper airway congestion. Vital Signs: 11:00 BP 134 / 95; Pulse 172; Resp 32 S; Temp 103.5(R); Pulse Ox 94% on Simple Mask; Weight iw 56.7 kg (R); 11:30 BP 124 / 96; Pulse 179; Resp 35; Pulse Ox 98% on 15% Trachiostomy; vg1 11:57 Weight 58.97 kg; vg1 12:00 BP 156 / 91; Pulse 134; Resp 18; Pulse Ox 97% on 15% Trachiostomy; vg1 12:30 BP 107 / 96; Pulse 122; Resp 15; Pulse Ox 99% on 15% Trachiostomy; vg1 13:00 BP 130 / 89; Pulse 111; Resp 12; Temp 98.1(C); Pulse Ox 100% on 15% Trachiostomy; vg1 14:30 BP 128 / 88; Pulse 98; Resp 12; Pulse Ox 100% on 15% trachiostomy; vg1 15:00 BP 121 / 89; Pulse 94; Resp 13 S; Pulse Ox 99% ; jg9 15:30 BP 123 / 94; Pulse 94; Resp 12; Pulse Ox 100% on 15% Trachiostomy; vg1 16:00 BP 132 / 87; Pulse 93; Resp 10; Temp 97.4(C); Pulse Ox 100% on 15% Trachiostomy; vg1 MDM: 11:04 Patient medically screened. jl9 16:00 Data reviewed: vital signs, nurses notes, EMS record, lab test result(s), radiologic kdr studies. Counseling: I had a detailed discussion with the patient and/or guardian regarding: the historical points, exam findings, and any diagnostic results supporting the discharge/admit diagnosis, lab results, radiology results. 04/29 11:06 Order name: Blood Culture Adult (2) iw 04/29 11:06 Order name: CBC with Diff; Complete Time: 13:13 iw 04/29 11:06 Order name: CMP; Complete Time: 12:41 iw 04/29 11:06 Order name: Lactate; Complete Time: 12:41 iw 04/29 11:06 Order name: Protime (+inr); Complete Time: 12:41 iw 04/29 11:06 Order name: Ptt, Activated; Complete Time: 12:41 iw 04/29 11:06 Order name: Urine Culture iw 04/29 11:06 Order name: Urine Microscopic Only; Complete Time: 14:09 iw 04/29 11:06 Order name: Chest Single View XRAY; Complete Time: 13:13 iw 04/29 11:35 Order name: CBC Smear Scan; Complete Time: 13:13 EDMS 04/29 11:36 Order name: SARS-COV-2 RT PCR (Document "Date of Onset" if Symptomatic); Complete Time: eb 13:13 04/29 11:36 Order name: Flu; Complete Time: 12:41 eb 04/29 12:58 Order name: Urine Dipstick-Ancillary; Complete Time: 13:13 EDNV 04/29 14:45 Order name: Lactate Sepsis 2 HR Follow-up; Complete Time: 15:59 EDMS 04/29 11:06 Order name: Accucheck; Complete Time: 11:51 04/29 11:06 Order name: Cardiac monitoring; Complete Time: 11:51 iw 04/29 11:06 Order name: Cath; Complete Time: 12:59 04/29 11:06 Order name: EKG - Nurse/Tech; Complete Time: 11:51 04/29 11:06 Order name: IV Saline Lock - Large Bore; Complete Time: 11:51 iw 04/29 11:06 Order name: Labs collected and sent; Complete Time: 11:51 iw 04/29 11:06 Order name: O2 Per Protocol; Complete Time: 11:51 04/29 11:06 Order name: O2 Sat Monitoring; Complete Time: 11:51 iw 04/29 11:06 Order name: Urine Dipstick-Ancillary (obtain specimen); Complete Time: 12:59 04/29 11:06 Order name: Urine Test (obtain specimen); Complete Time: 12:59 04/29 13:21 Order name: CT Chest, Abdomen, Pelvis - W/Contrast; Complete Time: 14:09 [facility] 04/29 16:29 Order name: CONS Physician Consult EDMS EC:00 Rate is 181 beats/min. Rhythm is regular, Sinus tachycardia with No ectopy. QRS [place] is kdr Normal. [place] interval is normal. QRS interval is normal. QT interval is normal. Clinical impression: NSR w/ Non-specific ST/T Changes and Sinus tachycardia. Administered Medications: 11:15 Drug: Tylenol Suppository 650 mg Route: [place]; vg1 13:19 Follow up: Response: Temperature is decreased vg1 11:15 Drug: NS 0.9% (30 ml/kg) 30 ml/kg Route: IV; Rate: bolus; Site: PICC; vg1 13:58 Follow up: IV Status: Completed infusion; IV Intake: 2000ml vg1 12:25 Drug: Cefepime 1 grams Route: IVPB; Rate: 200 ml/hr; Infused Over: 30 mins; Site: left vg1 femoral; 12:57 Follow up: IV Status: Completed infusion; IV Intake: 100ml vg1 13:04 Drug: vancoMYCIN 1 grams Route: IVPB; Infused Over: 2 hrs; Site: left femoral; vg1 15:25 Follow up: IV Status: Completed infusion; IV Intake: 250ml vg1 Disposition Summary: 04/29/22 12:45 Hospitalization Ordered Hospitalization Status: Inpatient Admission kdr Provider: Calvin Quintero Location: Intensive Care Unit kdr Condition: Serious kdr Problem: new kdr Symptoms: have improved kdr Bed/Room Type: Standard kdr Room Assignment: 6-(04/29/22 17:00) em1 Diagnosis - Other specified sepsis kdr Forms: - Medication Reconciliation Form kdr - SBAR form kdr Critical care time excluding procedures: 16:22 Critical care time: Bedside Care: 30 minutes, Consultation: 15 minutes, Family kdr Intervention: 10 minutes. Total time: 55 minutes Signatures: Dispatcher [employer] EDMS Bronson Major MD MD kdr Vaishali Caldwell RN Marshall Underwood em1 Curtis Watson RN RN ja1 Mallorie Sevilla RN RN [email or web address] Etienne Fairchild jl9 Corrections: (The following items were deleted from the chart) 16:49 12:45 kdr ja1 17:00 16:49 3- ja1 em1
[2022-04-29 12:58] LABS: Urine Blood Negative (Negative); Urine Glucose Negative (Negative); Urine Protein 1+ (Negative)
--- NOTE | 2022-04-29 13:10 | RAD REPORT ---
EXAM DESCRIPTION: RAD - Chest Single View - 04/29/2022 12:57 pm CLINICAL HISTORY: FEVER Chest pain. COMPARISON: Chest Single View dated 04/25/2022; Chest Single View dated 04/24/2022; Chest Single View d ated 04/21/2022 FINDINGS: Portable technique limits examination quality. Interstitial markings are mildly prominent. The heart is upper limit normal in size. Right-sided PICC line has tip in the SVC.Tracheostomy tube tip is above the ketty.
[2022-04-29 13:45] LABS: Calcium Oxalate Crystals- Ur Few /HPF (None Seen); Urine Bacteria <20 /HPF (<20); Urine Mucus 1+ /HPF (None Seen); Urine RBC <5 /HPF (None Seen)
[2022-04-29 13:46] LABS: Urine Yeast with Hyphae Many /HPF (None Seen)
--- NOTE | 2022-04-29 13:57 | RAD REPORT ---
EXAM DESCRIPTION: CT - Chest Abdomen Pelvis W Cont - 04/29/2022 1:40 pm CLINICAL HISTORY: Sepsis/fever COMPARISON: CT chest April 22, 2022 TECHNIQUE: Computed axial tomography of the chest, abdomen and pelvis was obtained. 100 cc Isovue-30 0 was administered intravenously. Oral contrast was not requested. This limits evaluation of bowel. All CT scans are performed using dose optimization technique as appropriate and may include automated exposure control or mA/KV adjustment according to patient size. FINDINGS: Mucus plug left lower lobe bronchus with left lower lobe atelectasis. The right lung is clear. Tracheostomy tube in place. No mediastinal or hilar lymphadenopathy. No pleural effusion. A pericardial effusion is not present. Liver, spleen, pancreas, adrenals kidneys are unremarkable. Gastrostomy tube in place. Randolph catheter within the bladder. No abscess. No ascites IMPRESSION: Mucus plug left lower lobe bronchus with left lower lobe atelectasis
--- NOTE | 2022-04-29 16:37 | P.HP ---
Certification for Inpatient Patient admitted to: Inpatient With expected LOS: >2 Midnights Practitioner: I am a practitioner with admitting privileges, knowledge of patient current condition, hospital course, and medical plan of care. Services: Services provided to patient in accordance with Admission requirements found in Title 42 Section 412.3 of the Code of Federal Regulations Patient History Date of Service: 04/29/22 History of Present Illness: 46yo F, PMH: anoxxic brain injury, trach dependent Brought to ED via EMS due to worsened mentation, hypoxia, and tachycardia. Patient recently discharged ~4 days ago to [facility]. Patient was treated for resistant pneumonia, discharged with IV merrem. On arrival, found to be in SVT with HR: 180, normal BP, signficant leukocytosis and lactate: 5.9. Imaging and workup concerning for ongoing pneumonia. UA noted some yeast, no bacteria. CT notable for left lower lobe atelectasis and mucous plug, similar to previous CT last week. Given IV cefepime, vanc, received sepsis bolus. lactate improved. Patient admitted for further management Baseline is reportedly that she can understand but cannot follow commands, blinks to communicate. Has been having difficulty / treatment for aspiration pneumonia for quite some time. 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 Allergies No Known Allergies Allergy (Unverified 04/22/22 04:01) Home Medications: Albuterol Neb [Proventil 0.083% Neb Soln] 1 amp NEB Q6HR 04/22/22 Aspirin [Aspirin EC 81 MG] 81 mg PO DAILY 04/22/22 Atorvastatin Calcium 20 mg PO DAILY 04/22/22 Baclofen 5 mg PO TID 04/22/22 Enoxaparin Sodium [Lovenox 60 MG INJ*] 60 mg SQ BID* 04/22/22 Gabapentin [Neurontin*] 100 mg PO TID 04/22/22 Polyethylene Glycol 3350 [Miralax] 17 gm PO DAILY 04/22/22 cloNIDine HCL [Clonidine HCl] 0.1 mg PO TID 04/22/22 Ipratropium Neb [Atrovent*] 0.5 mg NEB [id number] amp 04/25/22 Jevity 1.2 Danie Liquid 240 ml FT QID bot 04/25/22 Meropenem-0.9% Sodium Chloride [Meropenem-0.9% NaCl 500 mg/50] 500 mg IV Q8HR 7 Days #1050 ml 04/25/22 Scopolamine Hydrobromide [Transderm-Scop*] 1 pat TD Q3D@0900 patch 04/25/22 - Past Medical/Surgical History Diabetic: No -: Anoxic Brain Injury -: Hysterectomy -: G Tube -: Tracheostomy Psychosocial/ Personal History: Patient lives at [facility]. She has a daughter. - Family History Family History: Reviewed- Non-Contributory - Social History Smoking Status: Unknown if ever smoked Alcohol use: No CD- Drugs: No Caffeine use: No Place of Residence: [facility] Review of Systems is unable to be obtained Physical Examination - Physical Exam General: Other (nonverbal, blinks eyes, intermittently follows commands (opens/ closes eyes when asked)) HEENT: Other (trach), EOMI, Sclerae nonicteric Respiratory: Crackles/rales (bilaterally) Cardiovascular: No edema, Other (sinus tachycardia) Capillary refill: <2 Seconds Gastrointestinal: Soft and benign, Non-distended, No tenderness Musculoskeletal: No erythema, No tenderness Integumentary: No breakdown, No significant lesion Neurological: Other (quadraplegia, awakens to sound, intermittently follows commands ) Urinary: Randolph catheter - Studies Laboratory Data (last 24 hrs) 04/29/22 14:04: Lactic Acid 0.9 04/29/22 12:55: Urine pH 7.0, Ur Specific [place] 1.020, Glucose (UA)(Auto) Negative, Urine Ketones Negative, Urine Blood Negative, Urine Nitrite Negative, Ur Leukocyte Esterase Negative, Urine Total Protein 1+ H 04/29/22 12:55: Urine RBC <5, Urine WBC <5, Ur Squamous Epith Cells 5-10, Calcium Oxalate Crystal Few, Amorphous Crystals 1+ H, Urine Bacteria <20, Hyaline Casts 0-5, Urine Mucus 1+, Ur Yeast w Hyphae Many H 04/29/22 11:36: SARS-CoV-2 Rap RNA(RT-PCR) Negative 04/29/22 11:10: PT 10.6, INR 0.96, APTT 27.6 04/29/22 11:10: Lactic Acid 5.9 H* 04/29/22 11:10: Sodium 141, Potassium 5.1, Chloride 103, Carbon Dioxide 29, Anion Gap 14.1, BUN 29 H, Creatinine 1.13, Est GFR (CKD-EPI) 61 L, Glucose 220 H, Calcium 10.0, Total Bilirubin 0.4, AST 42 H, ALT 47, Alkaline Phosphatase 116, Serum Total Protein 8.4 H, Albumin 3.2 L, Globulin 5.2 H, Albumin/Globulin Ratio 0.6 L 04/29/22 11:10: WBC 28.6 H* D, RBC 4.33 D, Hgb 12.6 D, Hct 37.8 D, MCV 87.3, MCH 29.1, MCHC 33.4, RDW 15.1, Plt Count 643 H D, MPV 7.4 L, Neutrophils % 85.3 H, Lymphocytes % 10.2 L, Monocytes % 3.6, Eosinophils % 0.6, Basophils % 0.3, Absolute Neutrophils 24.4 H, Absolute Lymphocytes 2.9, Absolute Monocytes 1.0, Absolute Eosinophils 0.2, Absolute Basophils 0.1, Platelet Estimate Incr, Morphology Comment Not seen, Smear Scan Ok Microbiology Data (last 24 hrs): 04/29/22 11:47 Nasopharnyx Influenza Type A Antigen Screen - Final 04/29/22 11:47 Nasopharnyx Influenza Type B Antigen Screen - Final Assessment and Plan - Advance Directives Does patient have a Living Will: No Does patient have a Durable POA for Healthcare: No Physician Review Additional Text: Problem List severe sepsis secondary to MDR enterobacter; pneumonia suspected acute respiratory distress with hypoxia secondary to pneumonia and mucous plugging Mucous plugging, with left lower lobe atelectasis History of Opioid Overdose complicated by Anoxic Brain Injury now Trach/PEG- dependent; quadriplegic patient's heart rate and lactate improved after sepsis bolus given cefepime in ED reviewed prior hospitalizaton. sputum: MDR enterobacter; with possible carbapenem resistance; discharged on 500mg q8h merrem may need higher dose merrem vs treatment with vabomere empiric vanc and antifungal given severe sepsis, recent antibiotic and hospitalization pulm consulted, ID consulted trend procal sputum, blood, urine cultures full code per NH sheet patient somewhat responds / follows commands, reportedly baseline is communicates by blinking given severity of presentation - svt, severe sepsis, nonverbal, will admit to ICU VTE: lovenox Code; full Dispo; prison, ~4 days Critical Care: Yes (35 minutes) Time Spent Managing Pts Care (In Minutes): 75
[2022-04-29] MEDS: MICAFUNGIN SODIUM 100 MG in NA CHLORIDE 0.9% 100 ML IV SCH (17:42)
[2022-04-29] MEDS: MEROPENEM/VABORBACTAM 4 GM in NA CHLORIDE 0.9% 250 ML IV SCH (17:42)
[2022-04-29] MEDS ORDERED: MICAFUNGIN SODIUM 100 MG VIAL IV SCH (18:00)
[2022-04-29] MEDS ORDERED: VANCOMYCIN 1.5 GM in NA CHLORIDE 0.9% 500 ML IVPB SCH ×2 (18:00→21:00)
[2022-04-29] MEDS: Ringers Lactate 1,000 ML IV SCH (18:09)
[2022-04-29] MEDS: IPRATROPIUM BROM 0.5MG/2.5ML NEB SCH (20:00)
[2022-04-29] MEDS: ALBUTEROL 2.5 MG/3 ML NEB SOL NEB SCH (20:00)
[2022-04-30] MEDS: MEROPENEM/VABORBACTAM 4 GM in NA CHLORIDE 0.9% 250 ML IV SCH ×3 (00:57→16:21)
[2022-04-30] MEDS: IPRATROPIUM BROM 0.5MG/2.5ML NEB SCH ×4 (02:00→19:40)
[2022-04-30] MEDS: ALBUTEROL 2.5 MG/3 ML NEB SOL NEB SCH ×4 (02:00→19:40)
[2022-04-30] MEDS: Ringers Lactate 1,000 ML IV SCH ×2 (02:37→11:00)
[2022-04-30 04:58] LABS: Absolute Lymphocytes (CBC) 1.1 K/uL (0.7-4.9); Hematocrit 24.6 % (36.0-45.0); Lymphocytes % 20.6 % (15.3-44.8); MCV 86.1 fL (80-100); MPV 6.7 fL (7.6-11.3); RBC Red Blood Cell Count 2.86 M/uL (3.86-4.86)
[2022-04-30 05:17] LABS: Albumin 2.3 g/dL (3.4-5.0); Bilirubin Total 0.4 mg/dL (0.2-1.0); Magnesium 1.8 mg/dL (1.8-2.4); Phosphorus 2.8 mg/dL (2.5-4.9); Potassium 3.2 mmol/L (3.5-5.1); Protein, Total 5.6 g/dL (6.4-8.2)
--- NOTE | 2022-04-30 06:02 | P.PN ---
Date of Service: 04/30/22 Subjective: Much improved Vitals stable More alert Breathing more comfortably ROS: 10 point ROS as noted above, otherwise negative Physical exam GEN: Alert, closes eyes/opens when asked HEENT: Normal conjunctiva, sclera anicteric CV: Regular rate and rhythm, trace edema Pulm: non-labored respirations on trach collar - 8L ABD: Soft, nontender, nondistended, gastric tube in place, no surrounding erythema Neuro: Quadriplegia, blinks eyes when asked garza in place Problem List severe sepsis secondary to MDR enterobacter; pneumonia suspected acute respiratory distress with hypoxia secondary to pneumonia and mucous plugging Mucous plugging, with left lower lobe atelectasis History of Opioid Overdose complicated by Anoxic Brain Injury now Trach/PEG- dependent; quadriplegic patient's heart rate and lactate improved after sepsis bolus given cefepime in ED reviewed prior hospitalizaton. sputum: MDR enterobacter; with possible carbapenem resistance; discharged on 500mg q8h merrem started vabomere on admission empiric vanc and antifungal given due to severe sepsis, recent antibiotic and hospitalization dc vanc pulm consulted, ID consulted trend procal sputum, blood, urine cultures sent full code per NH sheet patient somewhat responds / follows commands, reportedly baseline is communicates by blinking improving VTE: lovenox Code; full Dispo; senior living, ~3 days ok to transfer out of ICU Time Spent Managing Pts Care (In Minutes): 35
[2022-04-30] MEDS ORDERED: Magnesium Sulfate 2gm IVPB 2 G/50 ML BAG IV ONE (06:27)
[2022-04-30] MEDS: KCL 20 MEQ/100 mL IVPB 20 MEQ/100 ML BAG IV SCH ×2 (06:48→08:23)
[2022-04-30] MEDS: JEVITY 1.2 CAL LIQUID 1,000 ML BOT FT SCH ×5 (08:23→20:51)
[2022-04-30] MEDS: MICAFUNGIN SODIUM 100 MG in NA CHLORIDE 0.9% 100 ML IV SCH (08:34)
[2022-04-30] MEDS: SCOPOLAMINE HYDROBROMIDE PATCH TD SCH (08:48)
--- NOTE | 2022-04-30 12:52 | P.CNS ---
Date of Consult: 04/30/22 Reason for Consult: Possible sepsis History of Present Illness: Age 46 Hx of anoxic encephalopathy , SP [facility], [facility] patient was recently discharged from the hospital with that is just an infection on Meropenem about four days ago on arrival patient was found to be supravent ricular tachycardia normal blood pressure leukocytosis elevated lactate level admitted with a diagnosis of possible sepsis. She is straight dependent nonverbal. Agreement current choice of antibiotics ID has been consulted Allergies No Known Allergies Allergy (Unverified 04/22/22 04:01) Home Medications: Albuterol Neb [Proventil 0.083% Neb Soln] 1 amp NEB Q6HR 04/22/22 Aspirin [Aspirin EC 81 MG] 81 mg PO DAILY 04/22/22 Atorvastatin Calcium 20 mg PO DAILY 04/22/22 Baclofen 5 mg PO TID 04/22/22 Enoxaparin Sodium [Lovenox 60 MG INJ*] 60 mg SQ Q12H 04/22/22 Gabapentin [Neurontin*] 100 mg PO TID 04/22/22 Polyethylene Glycol 3350 [Miralax] 17 gm PO DAILY 04/22/22 cloNIDine HCL [Clonidine HCl] 0.1 mg PO TID 04/22/22 Ipratropium Neb [Atrovent*] 0.5 mg NEB [id number] amp 04/25/22 Jevity 1.2 Danie Liquid 240 ml FT QID bot 04/25/22 Meropenem-0.9% Sodium Chloride [Meropenem-0.9% NaCl 500 mg/50] 500 mg IV Q8HR 7 Days #1050 ml 04/25/22 Scopolamine Hydrobromide [Transderm-Scop*] 1 pat TD Q3D@0900 patch 04/25/22 Linezolid 600 mg PO Q12H 04/29/22 Sertraline [Zoloft*] 100 mg PO BEDTIME 04/29/22 - Past Medical/Surgical History Diabetic: No -: Anoxic Brain Injury -: Hysterectomy -: G Tube -: Tracheostomy Psychosocial/ Personal History: Patient lives at [facility]. She has a daughter. - Social History Smoking Status: Unknown if ever smoked Alcohol use: No CD- Drugs: No Caffeine use: No Place of Residence: [facility]illed Nursing Review of Systems is unable to be obtained Physical Examination Temp Pulse Resp BP Pulse Ox 97 F 87 13 112/75 100 04/30/22 08:00 04/30/22 10:00 04/30/22 10:00 04/30/22 10:00 04/30/22 10:00 General: Alert, Unresponsive Respiratory: Diminished, Expiratory wheezes Cardiovascular: Normal S1 S2, Edema Integumentary: Other (Patient has a rash on her back) - Problems (1) Sepsis Current Visit: Yes Status: Acute Plan: clarisse is 46 years of age a snf resident and he admitted again with their tachycardia possible sepsis [facility] [place] resident and is on meropenem and Lovenox. Patient has significant leukocytosis chest x-ray shows minimal infiltrate at the left base oxygenation satisfactory blood pressure satisfactory labs reviewed chest x-ray reviewedNo significant abnormality noted on abdominal chest and pelvic CT scan. Patient is at risk for resistant infections including fungus ID has been consultedRepeat cultures are pending hemodynamically stable prognosis poorPatient may be able to benefit from a percussion best as she is unable to clear her secretions Blood gases are normal Qualifiers: Sepsis type: sepsis due to unspecified organism Sepsis acute organ dysfunction status: unspecified Qualified Code(s): A41.9 - Sepsis, unspecified organism
--- NOTE | 2022-04-30 14:45 | CON ---
History Of Present Illness: The patient is here from shelter with sepsis and leukocytosis. The patient was sent home on meropenem, which was found to be resistant to the bacteria, the patient was growing. I was consulted to recommend new medication. Assessment And Plan: Multidrug resistant Enterobacter with suspected pneumonia and respiratory failu re. We will recommend Levemir for 10 days. Continue antibiotic and supportive care. Continue monit oring for any signs of infection. Leukocytosis has improved since and we will follow the patient as needed. Thank you Dr. Quintero for consult. DONOVAN/MICHAELLE Voice ID: [id number] Report ID: [id number]
[2022-04-30 14:47] LABS: Arterial Blood Carboxyhemoglob 1.3 % (0-1.5); Blood Gas Oxyhemoglobin 95.2 % (94-97); Blood O2 Saturation 97.5 % (92-98.5)
[2022-04-30] MEDS ORDERED: VANCOMYCIN 1 GM in NA CHLORIDE 0.9% 250 ML IVPB SCH (18:00)
[2022-04-30] MEDS ORDERED: KCL 20 MEQ/100 mL IVPB 20 MEQ/100 ML BAG IV SCH (18:00)
[2022-05-01] MEDS: MEROPENEM/VABORBACTAM 4 GM in NA CHLORIDE 0.9% 250 ML IV SCH ×3 (00:46→17:17)
[2022-05-01] MEDS: ALBUTEROL 2.5 MG/3 ML NEB SOL NEB SCH ×4 (01:30→20:45)
[2022-05-01] MEDS: IPRATROPIUM BROM 0.5MG/2.5ML NEB SCH ×4 (01:30→20:45)
[2022-05-01 05:24] LABS: Hematocrit 27.9 % (36.0-45.0); Lymphocytes % 19.1 % (15.3-44.8); MCV 86.3 fL (80-100); MPV 7.3 fL (7.6-11.3); RBC Red Blood Cell Count 3.24 M/uL (3.86-4.86)
[2022-05-01 05:41] LABS: Albumin 2.7 g/dL (3.4-5.0); Bilirubin Total 0.4 mg/dL (0.2-1.0); Magnesium 1.9 mg/dL (1.8-2.4); Phosphorus 2.1 mg/dL (2.5-4.9); Potassium 3.6 mmol/L (3.5-5.1); Protein, Total 6.4 g/dL (6.4-8.2)
--- NOTE | 2022-05-01 05:56 | P.PN ---
Date of Service: 05/01/22 Subjective: Improving Nonverbal Follows commands No acute events overnight ROS: 10 point ROS as noted above, otherwise negative Physical exam GEN: Alert, closes eyes/opens when asked HEENT: Normal conjunctiva, sclera anicteric CV: Regular rate and rhythm, trace edema Pulm: non-labored respirations on trach collar - 5L ABD: Soft, nontender, nondistended, gastric tube in place, no surrounding erythema Neuro: Quadriplegia, blinks eyes when asked garza in place Problem List severe sepsis secondary to MDR enterobacter; pneumonia suspected acute respiratory distress with hypoxia secondary to pneumonia and mucous plugging Mucous plugging, with left lower lobe atelectasis History of Opioid Overdose complicated by Anoxic Brain Injury now Trach/PEG- dependent; quadriplegic patient's heart rate and lactate improved after sepsis bolus given cefepime in ED reviewed prior hospitalizaton. sputum: MDR enterobacter; with possible carbapenem resistance; discharged on 500mg q8h merrem started vabomere on admission empiric vanc and antifungal given due to severe sepsis, recent antibiotic and hospitalization dc vanc 04/30 pulm consulted, ID consulted trend procal sputum, blood, urine cultures sent Sputum growing GNR full code per NH sheet improving VTE: lovenox Code; full Dispo; assisted, ~2 days Downgrade to telemetry bed Time Spent Managing Pts Care (In Minutes): 35
[2022-05-01] MEDS: KCL 20 MEQ/100 mL IVPB 20 MEQ/100 ML BAG IV SCH ×2 (06:43→09:00)
[2022-05-01] MEDS ORDERED: POTASS/SODIUM PHOSPHATE 1 PKT POWD.PACK PO ONE (07:00)
[2022-05-01] MEDS: JEVITY 1.2 CAL LIQUID 1,000 ML BOT FT SCH ×4 (09:00→20:53)
[2022-05-01] MEDS: MICAFUNGIN SODIUM 100 MG in NA CHLORIDE 0.9% 100 ML IV SCH (09:00)
[2022-05-01] MEDS: GABAPENTIN 100 MG CAP PO SCH (20:53)
[2022-05-01] MEDS: cloNIDine HCL 0.1 MG TAB PO SCH (20:53)
[2022-05-01] MEDS: SERTRALINE HCL 100 MG TAB PO SCH (20:53)
[2022-05-01] MEDS: ENOXAPARIN 60 MG/0.6 ML SQ SCH (20:53)
[2022-05-02] MEDS: MEROPENEM/VABORBACTAM 4 GM in NA CHLORIDE 0.9% 250 ML IV SCH ×3 (01:24→17:15)
[2022-05-02] MEDS: IPRATROPIUM BROM 0.5MG/2.5ML NEB SCH ×4 (01:45→19:40)
[2022-05-02] MEDS: ALBUTEROL 2.5 MG/3 ML NEB SOL NEB SCH ×4 (01:45→19:40)
[2022-05-02 05:28] LABS: Phosphorus 2.7 mg/dL (2.5-4.9); Potassium 4.1 mmol/L (3.5-5.1)
--- NOTE | 2022-05-02 06:39 | P.PN ---
Date of Service: 05/02/22 Subjective: no acute events overnight pt noted to cry yesterday, intermittent tachycardia tolerating tube feeds at decreased rate ROS: 10 point ROS as noted above, otherwise negative Physical exam GEN: Alert, closes eyes/opens when asked HEENT: Normal conjunctiva, sclera anicteric CV: Regular rate and rhythm, trace edema Pulm: non-labored respirations on trach collar - 5L ABD: Soft, nontender, nondistended, gastric tube in place, no surrounding erythe ma Neuro: Quadriplegic, blinks eyes when asked garza in place PICC in place, no surrounding erythema Problem List severe sepsis secondary to MDR enterobacter; pneumonia suspected Sputum with MRSA, stenotrophomonas acute respiratory distress with hypoxia secondary to pneumonia and mucous plugging Mucous plugging, with left lower lobe atelectasis History of Opioid Overdose complicated by Anoxic Brain Injury now Trach/PEG- dependent; quadriplegic patient's heart rate and lactate improved after sepsis bolus given cefepime in ED reviewed prior hospitalizaton. sputum: MDR enterobacter; with possible carbapenem resistance; discharged on 500mg q8h merrem; possibly underdosed started vabomere on admission empiric vanc and antifungal given as weljl due to severe sepsis, recent antibiotic and hospitalization sputum growing MRSA, stenotrophomonas; sensitivities reviewed - bactrim only option didn't grow on prior cultures from last week but possibly colonized with these bacteria, difficult to differentiate if truly causing current sepsis. patient responded well/quickly after initial antibiotics pulm consulted, ID consulted trend procal full code per NH sheet trach without inner cannula, RT unable to deep suction. ENT consulted - to replace trach VTE: lovenox Code: full Dispo: long term, ~2 days Time Spent Managing Pts Care (In Minutes): 35
[2022-05-02] MEDS: ATORVASTATIN 20 MG TAB PO SCH (07:54)
[2022-05-02] MEDS: cloNIDine HCL 0.1 MG TAB PO SCH ×3 (07:55→21:00)
[2022-05-02] MEDS: BACLOFEN 10 MG TAB FT SCH ×3 (07:55→21:54)
[2022-05-02] MEDS: ASPIRIN EC 81 MG TAB PO SCH (07:55)
[2022-05-02] MEDS: JEVITY 1.2 CAL LIQUID 1,000 ML BOT FT SCH ×4 (07:55→21:50)
[2022-05-02] MEDS: ENOXAPARIN 60 MG/0.6 ML SQ SCH ×2 (07:56→21:49)
[2022-05-02] MEDS: GABAPENTIN 100 MG CAP PO SCH ×3 (07:56→21:50)
[2022-05-02] MEDS ORDERED: NA CHLORIDE 0.9% 0 ML ONE (08:02)
[2022-05-02] MEDS: MICAFUNGIN SODIUM 100 MG in NA CHLORIDE 0.9% 100 ML IV SCH (08:20)
[2022-05-02] MEDS ORDERED: VANCOMYCIN 1.5 GM in NA CHLORIDE 0.9% 500 ML IVPB ONE (09:00)
[2022-05-02] MEDS: SULFAMETH/TRIMETHOPRIM 200 MG/5 ML UDBOT FT SCH ×2 (13:41→21:50)
--- NOTE | 2022-05-02 13:52 | EKG ---
Test Date: 2022-04-29 Test Time: 11:04:02 Curriculum Designer: MEASUREMENT RESULTS: Intervals: Rate: 181 [place]: QRSD: 62 QT: 254 QTc: 441 [place]: P: [place]: QRS: 76 T: 90 INTERPRETIVE STATEMENTS: Supraventricular tachycardia ST & Marked T wave abnormality, consider inferolateral ischemia Abnormal ECG Compared to ECG 04/22/2022 04:57:53 T-wave abnormality now present Possible ischemia now present Sinus rhythm no longer present Electronically Signed On 05-02-22 13:47:53 CDT by Eddie Freeman
--- NOTE | 2022-05-02 14:27 | P.PN ---
Date of Service: 05/02/22 ENT Consultation Please see dictated H&P. Impression/Plan: 1. Acute respiratory distress with mucus plugging of tracheostomy-- stable s/p change to DCT Shiley size 6 tube. 2. Continue respiratory therapy/nurse suctioning with flexible suction tube. 3. Will see as needed. Thank you, Dr. Quintero for this most interesting patient.
--- NOTE | 2022-05-02 18:30 | PN ---
Subjective: The patient is lying in bed. No new acute event. Chart reviewed. Vital signs stable. Lab data reviewed. Objective: Lungs: Basal crackles. Heart: S1, S2. Regular. Abdomen: Soft, nontender. Bowel sounds present. Trach collar in place. Laboratory Data: WBC normal to 5.2, hemoglobin 9.6, platelets 285. Assessment And Plan: Sputum cultures are growing methicillin-resistant Staphylococcus aureus, ____. The patient has been started on Bactrim, continue that for 10 days. Consider stopping micafun gin. Continue Vabomere for 7 days. We will follow the patient closely. No other recommendations at this time. NF/MODL Voice ID: [id number] Report ID: [id number]
[2022-05-02] MEDS: VANCOMYCIN 1 GM in NA CHLORIDE 0.9% 250 ML IVPB SCH (21:49)
[2022-05-02] MEDS: SERTRALINE HCL 100 MG TAB PO SCH (21:50)
[2022-05-03] MEDS: MEROPENEM/VABORBACTAM 4 GM in NA CHLORIDE 0.9% 250 ML IV SCH ×3 (00:44→17:24)
[2022-05-03] MEDS: ALBUTEROL 2.5 MG/3 ML NEB SOL NEB SCH ×4 (01:40→20:00)
[2022-05-03] MEDS: IPRATROPIUM BROM 0.5MG/2.5ML NEB SCH ×4 (01:40→20:00)
[2022-05-03 05:04] LABS: Lymphocytes % 22.2 % (15.3-44.8); MCV 86.8 fL (80-100); MPV 7.2 fL (7.6-11.3); RBC Red Blood Cell Count 3.11 M/uL (3.86-4.86)
[2022-05-03 05:18] LABS: Magnesium 2.1 mg/dL (1.8-2.4); Phosphorus 2.6 mg/dL (2.5-4.9); Potassium 3.7 mmol/L (3.5-5.1)
[2022-05-03] MEDS ORDERED: POTASSIUM 25 MEQ EFFERV TAB PO ONE (07:16)
[2022-05-03] MEDS: JEVITY 1.2 CAL LIQUID 1,000 ML BOT FT SCH ×4 (08:21→20:57)
[2022-05-03] MEDS: SCOPOLAMINE HYDROBROMIDE PATCH TD SCH (08:21)
[2022-05-03] MEDS: ATORVASTATIN 20 MG TAB PO SCH (08:22)
[2022-05-03] MEDS: VANCOMYCIN 1 GM in NA CHLORIDE 0.9% 250 ML IVPB SCH (08:22)
[2022-05-03] MEDS: GABAPENTIN 100 MG CAP PO SCH ×3 (08:23→20:55)
[2022-05-03] MEDS: ASPIRIN EC 81 MG TAB PO SCH (08:23)
[2022-05-03] MEDS: ENOXAPARIN 60 MG/0.6 ML SQ SCH ×2 (08:23→20:55)
[2022-05-03] MEDS: SULFAMETH/TRIMETHOPRIM 200 MG/5 ML UDBOT FT SCH ×2 (08:23→20:56)
[2022-05-03] MEDS: cloNIDine HCL 0.1 MG TAB PO SCH ×3 (08:23→20:56)
[2022-05-03] MEDS: BACLOFEN 10 MG TAB FT SCH ×3 (08:55→20:55)
[2022-05-03] MEDS: HYDROMORPHONE HCL 2 MG/ML inj IV PRN ×2 (11:46→17:40)
--- NOTE | 2022-05-03 11:50 | P.PN ---
Subjective Date of Service: 05/03/22 Patient not able to give any subjective complaint. No significant fever since admission. No issues overnight. She is tolerating tube feeding. Physical Examination - Vital Signs Temperature: 98.2 F Blood Pressure: 100/65 Pulse: 86 Respirations: 16 Pulse Ox (%): 99 Assessment And Plan - Plan Physical exam GEN: Awake, responds to questions by blinking. HEENT:sclera anicteric CV: Regular rate and rhythm. Pulm: non-labored respirations on trach collar - 5L, clear to auscultation bilaterally. ABD: Soft, nontender, nondistended, gastric tube in place, no surrounding erythema Neuro: Quadriplegic. Skin: PICC in place, no surrounding erythema. Problem List severe sepsis secondary to MDR enterobacter; pneumonia suspected Sputum with MRSA, stenotrophomonas acute respiratory distress with hypoxia secondary to mucous plugging Mucous plugging, with left lower lobe atelectasis History of Opioid Overdose complicated by Anoxic Brain Injury now Trach/PEG- dependent; quadriplegic patient's heart rate and lactate improved after sepsis bolus Given cefepime in ED reviewed prior hospitalizaton. sputum: MDR enterobacter; with possible carbapenem resistance; chest imaging shows no infiltrate. Highly suspect colonization. Previously discharged on 500mg q8h merrem; possibly underdosed. Patient seen by ENT and tracheostomy replaced so it can be suctioned. Lungs currently clear to auscultation. Patient is stable on oxygen by trach collar. Tracheal suctioning as needed. started vabomere on admission. Patient is currently on vancomycin, Bactrim and meropenem. Case discussed with ID. Dr. Nuñez recommended to discontinue the Vanco, UA showed yeast. Start Diflucan. pulm and ID are following. Procalcitonin unremarkable. Repeat chest x-ray to follow atelectasis. full code. VTE: lovenox Code: full Dispo: long term.
--- NOTE | 2022-05-03 11:53 | P.PN ---
Subjective Date of Service: 05/03/22 Chief Complaint: Respiratory distress Patient developed sudden onset of respiratory distress she is diaphoretic tachypneic and tachycardic Review of Systems is unable to be obtained Physical Examination - Vital Signs Temperature: 98.2 F Blood Pressure: 100/65 Pulse: 86 Respirations: 16 Pulse Ox (%): 99 - Physical Exam General: Severe distress Respiratory: Clear to auscultation bilaterally, Diminished Cardiovascular: Normal S1 S2, Edema Capillary refill: >2 Seconds Gastrointestinal: Soft and benign Assessment And Plan - Current Problems (Diagnosis) (1) Sepsis Current Visit: Yes Status: Acute Plan: Patient will have sudden onset of respiratory distress seen by ID coverage and discontinued patient is now on Bactrim and another broad-spectrum antibiotic cultures reviewed positive for MRSA and maltophilia vital signs are stable blood pressure slightly low ordered a stat chest x-ray white count is now normal Qualifiers: Qualified Code(s): A41.9 - Sepsis, unspecified organism
--- NOTE | 2022-05-03 12:25 | RAD REPORT ---
EXAM DESCRIPTION: RAD - Chest Single View - 05/03/2022 12:13 pm CLINICAL HISTORY: Respiratory distress COMPARISON: Chest Single View dated 04/29/2022; Chest Single View dated 04/25/2022; Chest Single View da may 04/24/2022; Chest Single View dated 04/21/2022; Chest Abdomen Pelvis W Cont dated 04/29/2022; Chest A ngio dated 04/22/2022 FINDINGS: Lines: Tracheostomy. PICC with tip overlying the SVC. Lungs: Worsened airspace disease at the left lung base. Relative opacification of the right lung base favored to be due to overlying breast prostheses. Pleural: No significant pleural effusions or pneumothorax. Cardiac: Loop recorder overlies the heart. Bones: No acute fractures. Other: Bilateral breast prostheses. IMPRESSION: Worsening consolidation in the left lower lobe could represent increasing atelectasis an d/or pneumonia.
--- NOTE | 2022-05-03 13:00 | CON ---
Date of Consultation: 05/02/2022 Chief Complaint: Mucus plugging of the existing tracheostomy tube. History Of Present Illness: The patient was admitted on 04/29/2022 for severe sepsis and pneumonia with acute respiratory distress and hypoxia and mucus plugging of tracheostomy tube with left lower lobe atelectasis. The Respiratory Therapy Department was having difficulty with pulmonary toilet due to the tube getting frequently plugged. These were indications to consult ENT for further evaluation and possibly changing the existing tracheostomy tube. Upon arrival to bedside, the patient is in no acute distress and pulse oximetry was demonstrating 100% on oxygen. The patient is nonverbal secondary to anoxic brain injury. Thus, I was not able to get any history from the patient, but the nurse stated that the patient was having frequent mucus plugging and had to be suctioned about every 2-3 hours. Home Medications: Albuterol, aspirin, atorvastatin, baclofen, enoxaparin sodium, gabapentin, polyethylene glycol, clonidine HCL, ipratropium nebulizer, Jevity via PEG, scopolamine patch, meropenem. Past Medical History: Anoxic brain injury secondary to overdose resulting in quadriplegia and chronic trach and PEG, hysterectomy, tracheostomy. Review of Systems: Unable to be obtained secondary to the patient's medical condition, but according to the records, the patient is having some mucus plugging of the tracheostomy tube. Physical Examination: General: The patient is nonverbal and blinks eyes with command. Head: Atraumatic, normocephalic. Eyes: PERRLA/EOMI. Nose: Moist intranasal mucosa. Midline septum. Throat: Dry oral mucosa. Midline uvula. Neck: Tracheostomy intact. Palpable landmarks. No evidence of swelling. Procedure: After lying the patient supine, I removed a size 8 Portex tracheostomy tube and suctioned out the airway. The patient had an adequate well-formed stoma with a small amount of granulation tissue noted around the inferior edge of the stoma. We had a size 8 and a size 6 Shiley cuffed tubes in the room; however, the outer diameter of the Shiley is 1 mm larger on the size 8 tube, thus I elected to use the smaller size 6 tube. The Shiley cuff was checked and then once we added lubrication after deflating the cuff, I then gently inserted it into the tracheal stoma opening and then it was secured to the neck with the trach collar. The patient had slight oozing of the granulation tissue. Thus, I instructed the nurse to place Surgicel packing at the inferior edge of the stoma and leave the tail out so that the packing could be located. She tolerated the procedure well. Copious amount of secretions was removed from the airway with a flexible orogastric tube. Diagnoses: Mucus plugging of the Portex tracheostomy tube - successful trach change with a size 6 Shiley cuffed tube. Airway was stable throughout the trach change and suctioning. Recommendations: 1. Recommend Respiratory Therapy to frequently suction every 3 hours or so. 2. Careful attention that the secretions do not become dried out with scopolamine as it will be difficult for pulmonary toilet. 3. We will see the patient as needed. This was communicated with Dr. Quintero. Thank you for this most interesting consultation. SHRAVAN Voice ID: [id number] Report ID: [id number] ANA
--- NOTE | 2022-05-03 14:13 | PN ---
Subjective: The patient is lying in bed. No new acute event, in ICU. Objective: Vital Signs: Temperature 98, pulse 86, respirations 16, blood pressure 100/65. Neck: Trach collar in place. Lungs: Basal crackles. Heart: S1, S2. Regular. Abdomen: Soft, nontender. Bowel sounds present. Extremity: Trace edema. Laboratory Data: WBC 4.7, hemoglobin 9.2, platelets 263. Chemistry shows sodium 142, potassium 3.7, chloride 107, bicarb 32, BUN 8, creatinine 0.6, procalcitonin is 0.15. Sputum culture, MRSA with Stenotrophomonas maltophilia. Previous sputum culture grew Enterobacter cl oacae. Current Medications: Include Levemir and Bactrim. Assessment And Plan: Pneumonitis. Continue Levemir and Bactrim. Monitor blood counts. Total cours e of antibiotic 10 days. The patient to continue antibiotic on transfer from the hospital. We will follow the patient closely. No other recommendation at this time. NF/MODL Voice ID: [id number] Report ID: [id number]
[2022-05-03] MEDS: SERTRALINE HCL 100 MG TAB PO SCH (20:55)
[2022-05-03] MEDS: LORazepam 2 MG/ML VIAL IV PRN (21:32)
[2022-05-04] MEDS: MEROPENEM/VABORBACTAM 4 GM in NA CHLORIDE 0.9% 250 ML IV SCH ×2 (00:39→09:35)
[2022-05-04] MEDS: ALBUTEROL 2.5 MG/3 ML NEB SOL NEB SCH ×4 (01:00→20:10)
[2022-05-04] MEDS: IPRATROPIUM BROM 0.5MG/2.5ML NEB SCH ×4 (01:00→20:10)
[2022-05-04 04:59] LABS: Absolute Lymphocytes (CBC) 1.7 K/uL (0.7-4.9); Hematocrit 26.5 % (36.0-45.0); Lymphocytes % 26.4 % (15.3-44.8); MCV 88.2 fL (80-100); MPV 7.2 fL (7.6-11.3); RBC Red Blood Cell Count 3.01 M/uL (3.86-4.86)
[2022-05-04 05:23] LABS: Magnesium 2.1 mg/dL (1.8-2.4); Phosphorus 2.1 mg/dL (2.5-4.9); Potassium 3.5 mmol/L (3.5-5.1)
[2022-05-04] MEDS: ATORVASTATIN 20 MG TAB PO SCH (08:24)
[2022-05-04] MEDS: POTASS/SODIUM PHOSPHATE 1 PKT POWD.PACK PO SCH ×3 (08:24→10:51)
[2022-05-04] MEDS: GABAPENTIN 100 MG CAP PO SCH ×3 (08:24→21:21)
[2022-05-04] MEDS: ASPIRIN EC 81 MG TAB PO SCH (08:25)
[2022-05-04] MEDS: cloNIDine HCL 0.1 MG TAB PO SCH ×3 (08:25→21:00)
[2022-05-04] MEDS: BACLOFEN 10 MG TAB FT SCH ×3 (08:25→21:21)
[2022-05-04] MEDS: SULFAMETH/TRIMETHOPRIM 200 MG/5 ML UDBOT FT SCH ×2 (08:25→21:22)
[2022-05-04] MEDS: JEVITY 1.2 CAL LIQUID 1,000 ML BOT FT SCH ×4 (08:25→21:23)
[2022-05-04] MEDS: ENOXAPARIN 60 MG/0.6 ML SQ SCH (08:25)
[2022-05-04] MEDS ORDERED: POTASSIUM 25 MEQ EFFERV TAB PO ONE (09:00)
--- NOTE | 2022-05-04 12:26 | P.PN ---
Subjective Date of Service: 05/04/22 Chief Complaint: Respiratory distress Patient is doing better more settled apparently she has this episodes of sympathetic activity significant secretions Review of Systems is unable to be obtained Physical Examination - Vital Signs Temperature: 98.1 F Blood Pressure: 93/59 Pulse: 91 Respirations: 15 Pulse Ox (%): 99 - Physical Exam General: Alert, In no apparent distress Respiratory: Clear to auscultation bilaterally, Diminished Cardiovascular: Edema - Studies Microbiology Data (last 24 hrs): 04/29/22 11:47 Blood - Blood Aerobic Blood Culture - Final No growth in 5 days. 04/29/22 11:47 Blood - Blood Anaerobic Blood Culture - Final No growth in 5 days. 04/29/22 11:37 Blood - Blood Aerobic Blood Culture - Final No growth in 5 days. 04/29/22 11:37 Blood - Blood Anaerobic Blood Culture - Final No growth in 5 days. Assessment And Plan - Current Problems (Diagnosis) (1) Sepsis Current Visit: Yes Status: Acute Plan: Patient is improving no clinical evidence of sepsis right now cultures are so far negative continue with Bactrim and doxycycline plan for discharge home need a humidifier signs are stable on 5 L nasal cannula oxygen I think she will also benefit from a vest labs reviewed white count is normal discussed with the daughter no history of thromboembolism can change to Xarelto 10 mg daily DC Lovenox discussed with ID can DC her spectrum antibiotic changed to doxycycline and leave her on Bactrim to have has tracheobronchitis White count declined fairly quickly to normal multiple blood cultures have been negative and the Enterobacter in the previous visit was isolated from the sputum again no cultures have been positive discussed with daughter she also wants to change to another facility Qualifiers: Sepsis type: sepsis due to unspecified organism Sepsis acute organ dysfunction status: unspecified Qualified Code(s): A41.9 - Sepsis, unspecified organism
[2022-05-04] MEDS: HYDROMORPHONE HCL 2 MG/ML inj IV PRN (13:14)
--- NOTE | 2022-05-04 15:04 | P.PN ---
Subjective Date of Service: 05/04/22 Chief Complaint: Respiratory distress Patient not able to give any subjective complaint. No issues overnight. She is tolerating tube feeding. She is tolerating oxygen by trach collar. Borderline hypotensive. Physical Examination - Vital Signs Temperature: 98.1 F Blood Pressure: 93/59 Pulse: 91 Respirations: 12 Pulse Ox (%): 96 - Studies Microbiology Data (last 24 hrs): 04/29/22 11:47 Blood - Blood Aerobic Blood Culture - Final No growth in 5 days. 04/29/22 11:47 Blood - Blood Anaerobic Blood Culture - Final No growth in 5 days. 04/29/22 11:37 Blood - Blood Aerobic Blood Culture - Final No growth in 5 days. 04/29/22 11:37 Blood - Blood Anaerobic Blood Culture - Final No growth in 5 days. Assessment And Plan - Plan Physical exam GEN: Awake. HEENT:sclera anicteric. Neck: Trach collar CV: Regular rate and rhythm. Pulm: non-labored respirations on trach collar - 5L, bilateral upper airway transmitted sounds ABD: Soft, nontender, nondistended, gastric tube in place, no surrounding erythema Neuro: Quadriplegic. Skin: PICC in place, no surrounding erythema. Problem List severe sepsis secondary to MDR enterobacter; pneumonia suspected Sputum with MRSA, stenotrophomonas acute respiratory distress with hypoxia secondary to mucous plugging Mucous plugging, with left lower lobe atelectasis History of Opioid Overdose complicated by Anoxic Brain Injury now Trach/PEG- dependent; quadriplegic patient's heart rate and lactate improved after sepsis bolus Given cefepime in ED reviewed prior hospitalizaton. sputum: MDR enterobacter; with possible carbapenem resistance; chest imaging shows no infiltrate. Highly suspect colonization. Patient seen by ENT and tracheostomy replaced so it can be suctioned. Patient tolerating oxygen by trach collar with good SaO2. Tracheal suctioning as needed. Infectious disease and pulmonary reviewed case. Antibiotics switched to oral doxycycline and Bactrim UA showed yeast. Diflucan. Procalcitonin unremarkable. full code. VTE: lovenox Code: full Dispo: group home.
[2022-05-04 16:24] VITALS: BMI 22.4
--- NOTE | 2022-05-04 16:40 | PN ---
Subjective: The patient is lying in bed. No new acute event for over last 24 hours. Objective: Vital signs: Reviewed. Lungs: Basal crackles. Heart: S1, S2. Regular. Abdomen: Soft, nontender. Bowel sounds present. Extremities: Trace edema. Laboratory Data: Shows WBC 6.4, hemoglobin 8.8, platelets 274. BUN 8, creatinine 0.6. Currently on meropenem and Bactrim. Assessment And Plan: Respiratory failure, sepsis, currently on merrem for Enterobacter and sputum cu lture from 04/29 growing MRSA Stenotrophomonas, currently on Bactrim for that. Continue current karolina tment. Course can be finished by this Monday. We will follow the patient closely. NF/MODL Voice ID: [id number] Report ID: [id number]
[2022-05-04] MEDS: RIVAROXABAN 10 MG TABLET PO SCH (17:31)
[2022-05-04] MEDS: LORazepam 2 MG/ML VIAL IV PRN (18:10)
[2022-05-04] MEDS: DOXYCYCLINE 100 MG CAP PO SCH (21:21)
[2022-05-04] MEDS: SERTRALINE HCL 100 MG TAB PO SCH (21:21)
[2022-05-05] MEDS: ALBUTEROL 2.5 MG/3 ML NEB SOL NEB SCH ×4 (01:40→19:08)
[2022-05-05] MEDS: IPRATROPIUM BROM 0.5MG/2.5ML NEB SCH ×4 (01:40→19:08)
[2022-05-05 05:35] LABS: Magnesium 2.2 mg/dL (1.8-2.4); Phosphorus 2.7 mg/dL (2.5-4.9); Potassium 3.8 mmol/L (3.5-5.1)
[2022-05-05] MEDS: ASPIRIN EC 81 MG TAB PO SCH (07:39)
[2022-05-05] MEDS: GABAPENTIN 100 MG CAP PO SCH ×3 (07:39→20:32)
[2022-05-05] MEDS: FLUCONAZOLE 100 MG TAB PO SCH (07:40)
[2022-05-05] MEDS: ATORVASTATIN 20 MG TAB PO SCH (07:40)
[2022-05-05] MEDS: JEVITY 1.2 CAL LIQUID 1,000 ML BOT FT SCH ×4 (07:41→20:32)
[2022-05-05] MEDS: cloNIDine HCL 0.1 MG TAB PO SCH ×3 (07:43→20:31)
[2022-05-05] MEDS: SULFAMETH/TRIMETHOPRIM 200 MG/5 ML UDBOT FT SCH ×2 (09:00→20:31)
[2022-05-05] MEDS ORDERED: POTASSIUM 25 MEQ EFFERV TAB PO ONE (09:00)
[2022-05-05] MEDS: DOXYCYCLINE 100 MG CAP PO SCH ×2 (09:00→20:33)
[2022-05-05] MEDS: BACLOFEN 10 MG TAB FT SCH ×3 (09:00→20:32)
--- NOTE | 2022-05-05 13:03 | P.DS ---
Admission Date: 04/29/22 Discharge Date: 05/06/22 Disposition: TRANSFER TO RETIREMENT Discharge Condition: FAIR Reason for Admission: Respiratory distress Brief History of Present Illness: 46yo F, PMH: anoxic brain injury, trach dependent brought to ED via EMS due to worsened mentation, hypoxia, and tachycardia. Patient recently discharged 4 days prior to [facility]. Patient was treated for resistant pneumonia, discharged with IV merrem. On arrival, found to be in SVT with HR: 180, normal BP, signficant leukocytosis and lactate: 5.9. Imaging and workup concerning for ongoing pneumonia. UA noted some yeast, no bacteria. CT notable for left lower lobe atelectasis and mucous plug, similar to previous CT last week. Given IV cefepime, vanc, received sepsis bolus. lactate improved. Patient admitted for further management Hospital Course: Problem List severe sepsis secondary to MDR enterobacter; pneumonia suspected Sputum with MRSA, stenotrophomonas acute respiratory distress with hypoxia secondary to pneumonia and mucous plugging Mucous plugging, with left lower lobe atelectasis History of Opioid Overdose complicated by Anoxic Brain Injury now Trach/PEG-de pendent; quadriplegic Patient admitted to the medical floor Her heart rate and lactate improved after sepsis bolus She was given cefepime in ED sputum culture prior hospitalization: MDR enterobacter; with possible carbapenem resistance; discharged on 500mg q8h merrem. Patient started on vabomere on admission empiric vanc and antifungal given as well due to severe sepsis, recent antib iotic and hospitalization sputum culture grew MRSA, stenotrophomonas; sensitivities reviewed - bactrim only option didn't grow on prior cultures from last week Leukocytosis responded quickly after initial antibiotics suggesting it is mostly reactive. pulm consulted, ID consulted who assisted with management. ENT also consulted due to difficulty with suctioning. Tracheostomy was changed to Shiley 6. Patient was successfully suctioned. Mucous plugging resolved. And she was stable on 5 L oxygen by trach collar. Recommend moisturized oxygen. Clinical condition improved. Leukocytosis resolved. She has been stable on oxygen by trach collar. Mucous plugging resolved. At this point ID and pulmonary recommended Bactrim and doxycycline voa PEG. Patient clinically stable for discharge. Vital Signs/Physical Exam: Temp Pulse Resp BP Pulse Ox 97.6 F 82 11 L 108/66 96 05/05/22 08:00 05/05/22 10:00 05/05/22 10:00 05/05/22 10:00 05/05/22 10:00 General: In no apparent distress HEENT: Other (Oxygen by trach collar) Neck: JVD not distended Respiratory: Other (Bilateral upper airway transmitted sounds) Cardiovascular: No edema, Regular rate/rhythm, Normal S1 S2 Gastrointestinal: Soft and benign, Non-distended Musculoskeletal: No swelling Neurological: Other (Quadriplegic) Laboratory Data at Discharge: WBC 6.4 K/uL (4.3-10.9) D 05/04/22 04:35 Hgb 8.8 g/dL (12.0-15.0) L 05/04/22 04:35 Hct 26.5 % (36.0-45.0) L 05/04/22 04:35 Plt Count 274 K/uL (152-406) 05/04/22 04:35 PT 10.6 SECONDS (9.5-12.5) 04/29/22 11:10 INR 0.96 04/29/22 11:10 APTT 27.6 SECONDS (24.3-36.9) 04/29/22 11:10 Sodium 135 mmol/L (136-145) L 05/05/22 04:55 Potassium 3.8 mmol/L (3.5-5.1) 05/05/22 04:55 BUN 8 mg/dL (7-18) 05/05/22 04:55 Creatinine 0.64 mg/dL (0.55-1.3) 05/05/22 04:55 Glucose 95 mg/dL (74-106) 05/05/22 04:55 Phosphorus 2.7 mg/dL (2.5-4.9) 05/05/22 04:55 Magnesium 2.2 mg/dL (1.8-2.4) 05/05/22 04:55 Total Bilirubin 0.4 mg/dL (0.2-1.0) 05/01/22 04:15 AST 39 U/L (15-37) H 05/01/22 04:15 ALT 34 U/L (12-78) 05/01/22 04:15 Alkaline Phosphatase 78 U/L (45-117) 05/01/22 04:15 Home Medications: Albuterol Neb [Proventil 0.083% Neb Soln] 1 amp NEB Q6HR 04/22/22 Aspirin [Aspirin EC 81 MG] 81 mg PO DAILY 04/22/22 Atorvastatin Calcium 20 mg PO DAILY 04/22/22 Baclofen 5 mg PO TID 04/22/22 Enoxaparin Sodium [Lovenox 60 MG INJ*] 60 mg SQ Q12H 04/22/22 Gabapentin [Neurontin*] 100 mg PO TID 04/22/22 Polyethylene Glycol 3350 [Miralax] 17 gm PO DAILY 04/22/22 cloNIDine HCL [Clonidine HCl] 0.1 mg PO TID 04/22/22 Ipratropium Neb [Atrovent*] 0.5 mg NEB [id number] amp 04/25/22 Jevity 1.2 Danie Liquid 240 ml FT QID bot 04/25/22 Sertraline [Zoloft*] 100 mg PO BEDTIME 04/29/22 Doxycycline Hyclate 100 mg PO BID #14 tab 05/05/22 Fluconazole 200 mg PO DAILY #14 05/05/22 Rivaroxaban [Xarelto*] 10 mg PO DAILY AT SUPPER 05/05/22 Sulfameth/Trimethoprim [Bactrim Pedi Suspension*] 20 ml FT BID 7 Days udbot 05/05/22 New Medications: Doxycycline Hyclate 100 mg PO BID #14 tab Fluconazole 200 mg PO DAILY #14 Physician Discharge Instructions: PROBLEM: Pneumonia GOAL: Clear understanding of disease process INSTRUCTIONS: Diet: Tube feed Activity: Bedrest DME DME: Date Ordered: Name of Company: [employer] Services Needed: [facility] Name of Company: Date or Referral: IMMUNIZATION Influenza Vaccine Indicated: Influenza Vaccine Given: Date Given: Pneumonia Vaccine Indicated: Pneumonia Vaccine Given: Date Given: Frequent turning Q2 hours to avoid pressure ulcers. Use aerosolized oxygen for tracheostomy, Diet: Tube feed Activity: Bedrest Followup: NONE,NONE [Primary Care Provider] - 1 Week Time spent managing pt's care (in minutes): 40
[2022-05-05] MEDS ORDERED: LACTULOSE 20 GM/30 ML UCUP PO PRN (15:44)
[2022-05-05] MEDS: RIVAROXABAN 10 MG TABLET PO SCH (16:10)
[2022-05-05 16:37] LABS: SARS-CoV-2 Antigen Rapid Res Negative (Negative)
--- NOTE | 2022-05-05 18:16 | P.PN ---
Subjective Date of Service: 05/05/22 Chief Complaint: Respiratory distress Patient not able to give any subjective complaint. No issues overnight. She is tolerating tube feeding. She is tolerating oxygen by trach collar. No major changes from yesterday. Nursing staff report last bowel movement was about 3 days ago. Physical Examination - Vital Signs Temperature: 99.5 F Blood Pressure: 104/74 Pulse: 94 Respirations: 13 Pulse Ox (%): 97 Assessment And Plan - Plan Physical exam GEN: Awake. HEENT:sclera anicteric. Neck: Trach collar CV: Regular rate and rhythm. Pulm: non-labored respirations on trach collar - 5L, bilateral upper airway transmitted sounds ABD: Soft, nontender, nondistended, gastric tube in place, no surrounding erythema Neuro: Quadriplegic. Skin: PICC in place, no surrounding erythema. Problem List severe sepsis secondary to MDR enterobacter; pneumonia suspected Sputum with MRSA, stenotrophomonas acute respiratory distress with hypoxia secondary to mucous plugging Mucous plugging, with left lower lobe atelectasis History of Opioid Overdose complicated by Anoxic Brain Injury now Trach/PEG- dependent; quadriplegic Functional constipation Patient seen by ENT and tracheostomy replaced so it can be suctioned. Patient t olerating oxygen by trach collar with good SaO2. Tracheal suctioning as needed. Infectious disease and pulmonary reviewed case and antibiotics switched to oral doxycycline and Bactrim UA showed yeast. On Diflucan. Procalcitonin unremarkable. Lactulose for functional constipation. Repeat COVID test was negative Clinically stable for discharge. VTE: lovenox Code: full Dispo: [facility].
[2022-05-05] MEDS: LACTULOSE 20 GM/30 ML UCUP PO SCH (20:30)
[2022-05-05] MEDS: SERTRALINE HCL 100 MG TAB PO SCH (20:33)
[2022-05-06] MEDS: IPRATROPIUM BROM 0.5MG/2.5ML NEB SCH ×2 (02:14→07:47)
[2022-05-06] MEDS: ALBUTEROL 2.5 MG/3 ML NEB SOL NEB SCH ×2 (02:14→07:47)
[2022-05-06] MEDS: LACTULOSE 20 GM/30 ML UCUP PO SCH ×2 (04:00→07:33)
[2022-05-06 04:16] VITALS: TEMP 98.4
[2022-05-06] MEDS: HYDROMORPHONE HCL 2 MG/ML inj IV PRN (08:07)
[2022-05-06 08:48] VITALS: O2SAT 96
[2022-05-06] MEDS: cloNIDine HCL 0.1 MG TAB PO SCH (09:00)
[2022-05-06] MEDS: SULFAMETH/TRIMETHOPRIM 200 MG/5 ML UDBOT FT SCH (09:00)
[2022-05-06] MEDS: BACLOFEN 10 MG TAB FT SCH (09:00)
[2022-05-06] MEDS: DOXYCYCLINE 100 MG CAP PO SCH (09:01)
[2022-05-06] MEDS: GABAPENTIN 100 MG CAP PO SCH (09:02)
[2022-05-06] MEDS: ASPIRIN EC 81 MG TAB PO SCH (09:02)
[2022-05-06] MEDS: FLUCONAZOLE 100 MG TAB PO SCH (09:02)
[2022-05-06] MEDS: ATORVASTATIN 20 MG TAB PO SCH (09:02)
[2022-05-06 09:03] VITALS: BP 103/85
== END 2022-05-06 10:30 | DRG 871 ==
LOC: ER 11:02 → ERHOLD 16:26 → 3RD-ICU 16:57
PROVIDERS: ADMIT Hospitalist; ATTEND Hospitalist
PROC: 0B21XFZ Change Tracheostomy Device in Trachea, External Approach (ICD-10-PCS; principal; 2022-05-02)
DX: A41.9 Sepsis, unspecified organism (principal); G82.50 Quadriplegia, unspecified; J15.212 Pneumonia due to Methicillin resistant Staphylococcus aureus; J15.6 Pneumonia due to other Gram-negative bacteria; E87.2 Acidosis; Z16.24 Resistance to multiple antibiotics; J98.11 Atelectasis; G93.1 Anoxic brain damage, not elsewhere classified; B37.49 Other urogenital candidiasis; R65.20 Severe sepsis without septic shock; R06.03 Acute respiratory distress; R09.02 Hypoxemia; K59.04 Chronic idiopathic constipation; Z93.1 Gastrostomy status; Z93.0 Tracheostomy status; Z20.822 Contact with and (suspected) exposure to COVID-19
CPT/HCPCS: 36415; 51702; 71045; 71260; 74177; 80048; 80053; 81003; 81015; 82805; 82947; 83605; 83735; 84100; 84132; 84145; 85025; 85610; 85730; 87040; 87070; 87077; 87086; 87088; 87186; 87205; 87804; 87811; 93005; 94640; 99285; J0692; J1170; J1650; J2248; J3370; J3475; J3480; J7030; J7040; J7050; J7120; Q9967; U0003

== ENCOUNTER 2022-05-06 17:55 | Inpatient (IN) | payer OTHER, SELFPAY ==
--- OUTSIDE RECORDS SUMMARY | 2022-05-06 17:57 | XMS REPORT | Continuity of Care Document ---
:1975 Author Organization [facility] t Address [address] [place] [id number] Care Team Providers Name Role Phone [email or web address] [...] Date/Time Type Type Clinicians Facility Department ID 2022-05-06 2022-05-06 Outpatient GC_BAHC_Tod PRIV PRIV [id number] [facility] 00:00:00 00:00:00 d_J [id number] Medica l 2022-04-26 2022-04-26 Outpatient GC_BAHC_Tod PRIV PRIV [id number] [facility] 00:00:00 00:00:00 d_J [id number] Medica l 2022-04-22 2022-04-22 Outpatient GC_BAHC_Tod PRIV PRIV [id number] [facility] 00:00:00 00:00:00 d_J [id number] Medica l Results This patient has no known results.
[2022-05-06] MEDS ORDERED: CEFEPIME 2 GM VIAL ONE (18:27)
[2022-05-06] MEDS ORDERED: NA CHLORIDE 0.9% 100 ML ONE (18:28)
[2022-05-06] MEDS ORDERED: NA CHLORIDE 0.9% 1,000 ML ONE ×3 (18:28→21:05)
[2022-05-06] MEDS ORDERED: ADENOSINE 6 MG/ 2ML VIAL IV ONE (18:28)
[2022-05-06 18:34] LABS: Absolute Lymphocytes (CBC) 1.2 K/uL (0.7-4.9); Hematocrit 38.8 % (36.0-45.0); Lymphocytes % 4.9 % (15.3-44.8); MCV 89.6 fL (80-100); MPV 7.8 fL (7.6-11.3); RBC Red Blood Cell Count 4.32 M/uL (3.86-4.86)
[2022-05-06] MEDS ORDERED: ACETAMINOPHEN 650MG/RECT SUPP PR ONE (18:38)
--- NOTE | 2022-05-06 18:50 | ER ---
Nurse's Notes [facility] Name: Angelique Villalobos Age: 46 yrs Sex: Female : 1975 Arrival Date: 05/06/2022 Time: 17:57 Bed 3 Private MD: Diagnosis: Dyspnea;respiratory distress;Severe sepsis with septic shock Presentation: 05/06 17:57 Chief complaint: EMS states: Pt just discharged back to assisted this morning. 911 ss called because of low O2. Upon EMS arrival, O2 \T\ 4L NC was 78% HR 170. EMS states patient is in respiratory distress, diaphoretic and unable to obtain IV access en route. Trach in place. HX of anoxic brain injury. Coronavirus screen: Client presents with at least one sign or symptom that may indicate coronavirus-19. Ebola Screen: Patient denies exposure to infectious person. Patient denies travel to an Ebola-affected area in the 21 days before illness onset. Initial Sepsis Screen: Does the patient meet any 2 criteria? RR > 20 per min. HR > 90 bpm. Yes Does the patient have a suspected source of infection? Yes: Productive cough/pneumonia. Risk Assessment: Do you want to hurt yourself or someone else? Unable to obtain. Onset of symptoms was May 06, 2022. 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 - Social history:: Smoking status: unknown. - Unable to obtain history due to: non verbal . Screenin:00 Abuse screen: Denies threats or abuse. jh6 18:53 Fall Risk Secondary diagnosis (15 points) seizures, impaired mobility, CVA, Mental jh6 Status-. 19:00 Nutritional screening: feeding tube noted to pt. vc1 19:56 Tuberculosis screening: No symptoms or risk factors identified. vc1 Assessment: 18:00 General: Appears distressed, uncomfortable, unkempt, Behavior is restless. jh6 18:00 Pain: Unable to use pain scale. Does not appear to understand pain scale. Neuro: Level jh6 of Consciousness is awake, Oriented to none. Cardiovascular: Capillary refill is > 3 seconds Pt skin diaphoretic warm to touch. pt has purulent drainage from Trach on arrival . respiratory called for bipap. Respiratory: Airway via trache Trachea midline Respiratory effort is labored, Respiratory pattern is symmetrical, tachypnea the patient has severe shortness of breath. 18:02 General: Appears distressed, uncomfortable, ill, slender. Neuro: Level of Consciousness ss is awake, alert, lethargic, Contractures noted to bilateral upper and lower extremities.. Cardiovascular: Capillary refill is > 3 seconds is sluggish in bilateral fingers. Respiratory: Respiratory effort is even, shallow, Respiratory pattern is tachypnea Sputum is copious amount of sputum poured out of Trach after patient coughed. GI: PEG tube in place, clamped. Derm: Skin is diaphoretic, Skin temperature is cool. 18:59 Reassessment: Dr. Rivas notified of elevated LActate 12.6. ss 19:53 Reassessment: No changes from previously documented assessment. Patient weighed on ER vc1 stretcher. Cardiovascular:. Respiratory: Airway via trache Trachea midline Respiratory effort is even, labored, shallow, Respiratory pattern is symmetrical, tachypnea Sputum is Green tinged. Derm: Skin is diaphoretic, Skin temperature is cool. 20:17 Reassessment: No changes from previously documented assessment. vc1 21:27 Reassessment: No changes from previously documented assessment. Waiting on Lab to draw vc1 repeat lactic, report given to ICU receiving nurse. Vital Signs: 18:02 BP 107 / 77; Pulse 171; Resp 42; Pulse Ox 95% on trach collar; ss 18:15 BP 110 / 58; Pulse 168; Resp 36; Temp 105.5(R); Pulse Ox 100% ; jh6 18:30 BP 117 / 69; Pulse 154; Resp 35; Pulse Ox 98% on BiPAP; jh6 18:33 Temp 105.5(R); jh6 18:45 BP 120 / 89; Pulse 162; Resp 28 S; Pulse Ox 100% on BiPAP; jh6 18:53 BP 120 / 89; Pulse 163; Resp 33; ss 19:38 Weight 53.5 kg; vc1 19:55 BP 122 / 87; Pulse 151; Resp 29; Temp 102.4(C); Pulse Ox 100% on BiPAP; vc1 20:18 BP 134 / 84; Pulse 135; Resp 26; Temp 100.8(C); vc1 21:28 BP 116 / 81; Pulse 120; Resp 20; Temp 100.5; Pulse Ox 100% ; vc1 22:00 Temp 100.5(C); vc1 ED Course: 17:57 Patient arrived in ED. 3 17:57 Curtis Rivas MD is Attending Physician. jr11 18:00 Placed in gown. Bed in low position. Side rails up X2. jh6 18:02 Triage completed. ss 18:03 Arm band placed on right wrist. ss 18:10 First set of blood cultures drawn by me. Missed attempt(s): 22 gauge in right 3 antecubital area. Bleeding controlled, band aid applied, catheter tip intact. 18:15 Inserted MIDLINE 18 gauge 10 CM POWERGLIDE to R upper arm. Inserted by MARGARITA Hernandez using aseptic technique. 18:17 Initial lab(s) drawn, by me, sent to lab. Second set of blood cultures drawn by me. 3 18:22 Daughter Raiza Reyez called from her cell [phone]/ She would like to be called eb with an update on why she was brought back/ She's been trying to come unable to find a ride/ she will be here Monday. 18:49 Kristy Nolan MD is Hospitalizing Provider. jr11 18:52 Randolph cath inserted, using sterile technique, 16 Fr., by ED staff, balloon inflated, to [facility] gravity drainage, urine specimen collected. 18:54 Fritz Hill is Hospitalizing Provider. la1 19:05 Chest Single View XRAY In Process Unspecified. EDMS 19:35 Tessy Serrato, SHARON is Primary Nurse. vc1 19:55 No provider procedures requiring assistance completed. Patient admitted, IV remains in vc1 place. Administered Medications: 18:24 Drug: NS 0.9% 1000 ml Route: IV; Rate: 1 bolus; Site: right upper arm; 6 19:24 Follow up: IV Status: Completed infusion; IV Intake: 100ml vc1 18:32 Drug: Cefepime 2 grams Route: IVPB; Rate: 200 ml/hr; Infused Over: 30 mins; Site: right [facility] upper arm; 19:02 Follow up: IV Status: Completed infusion; IV Intake: 100ml vc1 18:32 Drug: Tylenol 650 mg Route: PO; 6 22:00 Follow up: Temp 100.5 Catheter; Response: No adverse reaction; Temperature is decreased vc1 18:55 Not Given (Physician Discretion): Adenocard (adenosine) 6 mg IVP once 19:53 Drug: NS 0.9% (30 ml/kg) 30 ml/kg Route: IV; Rate: bolus; Site: right upper arm; vc1 20:53 Follow up: IV Intake: 1605ml vc1 21:00 Follow up: IV Status: Completed infusion; IV Intake: 1000ml vc1 Medication: 19:56 VIS not applicable for this client. vc1 Intake: 19:02 IV: 100ml; Total: 100ml. vc1 19:24 IV: 100ml; Total: 200ml. vc1 20:53 IV: 1605ml; Total: 1805ml. vc1 21:00 IV: 1000ml; Total: 2805ml. vc1 Outcome: 18:50 Decision to Hospitalize by Provider. jr11 22:30 Admitted to ICU accompanied by nurse, accompanied by tech, via stretcher, room 6, Other vc1 accompanied by RT 22:30 Condition: stable 22:30 Instructed on the need for admit. 22:30 Patient left the ED. vc1 Signatures: Dispatcher [employer] EDMS Mecca Garzon RN RN ss Attema, Lee, AGRICULTURE LABORER-C AGRICULTURE LABORER-Cla1 Jayshree Salinas [facility] Tawanna Hernandez Jennifer RN RN 6 Tessy Serrato RN RN vc1 Curtis Rivas MD MD jr11
--- NOTE | 2022-05-06 18:50 | EDPHYS ---
Physician Documentation [facility] Name: Angelique Villalobos Age: 46 yrs Sex: Female : 1975 Arrival Date: 05/06/2022 Time: 17:57 Bed 3 Private MD: ED Physician Curtis Rivas HPI: 05/06 18:01 This 46 yrs old Female presents to ER via Unassigned with complaints of dyspnea. jr11 18:01 This 46 yrs old Female presents to ER via Unassigned with complaints of dyspnea. jr11 18:01 The patient has shortness of breath at rest. 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 Duration: The symptoms are continuous, and are markedly worse than the original presentation. The patient's shortness of breath has no apparent modifying factors. Patient was discharged from this facility approximately 7 hours ago, per EMS, 2 hours of respiratory distress diaphoresis, noted to be in SVT, shocked at 100 biphasic twice no change. Patient is here with copious secretions coming out of her trach, appear purulent. Patient was transferred for respiratory distress.. 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 - Social history:: Smoking status: unknown. - Unable to obtain history due to: non verbal . ROS: 18:01 Unable to obtain ROS due to non verbal . jr11 Exam: 18:01 Constitutional: chronically ill in severe distress 2/2 WOB Head/Face: Normocephalic, jr11 atraumatic. Eyes: Extra-ocular motions intact. Lids and lashes normal. Conjunctiva and sclera are non-icteric and not injected. Cornea within normal limits. Periorbital areas with no swelling, redness, or edema. ENT: trach in place with purulent sputum out of trach Chest/axilla: Normal chest wall appearance and motion. Nontender with no deformity. No lesions are appreciated. Cardiovascular: tachy regular Respiratory: diffuse rhonchi, severe distress Abdomen/GI: PEG c/d/i Skin: diaphoretic MS/ Extremity: contractions x 4 Neuro: Awake, alert, not moving all ext Vital Signs: 18:02 BP 107 / 77; Pulse 171; Resp 42; Pulse Ox 95% on trach collar; ss 18:15 BP 110 / 58; Pulse 168; Resp 36; Temp 105.5(R); Pulse Ox 100% ; jh6 18:30 BP 117 / 69; Pulse 154; Resp 35; Pulse Ox 98% on BiPAP; jh6 18:33 Temp 105.5(R); jh6 18:45 BP 120 / 89; Pulse 162; Resp 28 S; Pulse Ox 100% on BiPAP; jh6 18:53 BP 120 / 89; Pulse 163; Resp 33; ss 19:38 Weight 53.5 kg; vc1 19:55 BP 122 / 87; Pulse 151; Resp 29; Temp 102.4(C); Pulse Ox 100% on BiPAP; vc1 20:18 BP 134 / 84; Pulse 135; Resp 26; Temp 100.8(C); vc1 21:28 BP 116 / 81; Pulse 120; Resp 20; Temp 100.5; Pulse Ox 100% ; vc1 22:00 Temp 100.5(C); vc1 Procedures: 18:28 Peripheral line: by aseptic technique a peripheral line was placed in the right upper la1 arm, 18g 10cm Midline catheter inserted via dynamic US guidance, confirmed placement with visualization on US and blood return, flushes easily. . MDM: 17:57 Patient medically screened. 11 18:01 Differential diagnosis: SVT, respiratory distress, sepsis. Antibiotic administration: jr The patient is discharged and will get outpatient antibiotics, cefepime . Data reviewed: vital signs, nurses notes. 18:18 ED course: EKG Interpreted by me shows likely an SVT 166 normal QRS normal QTC.. [facility] 05/06 17:59 Order name: Blood Culture Adult (2) [facility] 05/06 17:59 Order name: CBC with Diff; Complete Time: 19:40 [facility] 05/06 17:59 Order name: CMP; Complete Time: 19:06 [facility] 05/06 17:59 Order name: Lactate; Complete Time: 19:06 [facility] 05/06 17:59 Order name: Protime (+inr); Complete Time: 18:50 [facility] 05/06 17:59 Order name: Ptt, Activated; Complete Time: 18:50 [facility] 05/06 17:59 Order name: Urine Culture [facility] 05/06 17:59 Order name: Urine Microscopic Only; Complete Time: 19:17 [facility] 05/06 17:59 Order name: ABG; Complete Time: 19:06 [facility] 05/06 18:01 Order name: Troponin High Sensitivity; Complete Time: 18:58 [facility] 05/06 18:01 Order name: BNP; Complete Time: 18:58 [facility] 05/06 18:34 Order name: Sputum Culture [facility] 05/06 18:48 Order name: Glucose, Ancillary Testing; Complete Time: 18:50 EDMS 05/06 19:22 Order name: Manual Differential; Complete Time: 19:40 EDMS 05/06 17:59 Order name: Chest Single View XRAY; Complete Time: 19:19 [facility] 05/06 17:59 Order name: Accucheck; Complete Time: 18:55 [facility] 05/06 17:59 Order name: Cardiac monitoring; Complete Time: 18:17 [facility] 05/06 17:59 Order name: EKG - Nurse/Tech; Complete Time: 18:17 [facility] 05/06 17:59 Order name: IV Saline Lock - Large Bore; Complete Time: 18:17 [facility] 05/06 17:59 Order name: Labs collected and sent; Complete Time: 18:32 [facility] 05/06 17:59 Order name: O2 Per Protocol; Complete Time: 18:17 05/06 17:59 Order name: BIPAP [facility] 05/06 19:23 Order name: Chest Wo Con CT [facility] 05/06 20:53 Order name: CT; Complete Time: 21:16 EDMS 05/06 22:24 Order name: Lactate Sepsis 2 HR Follow-up; Complete Time: 22:30 EDMS 05/06 17:59 Order name: O2 Sat Monitoring; Complete Time: 18:17 [facility] 05/06 17:59 Order name: Suction; Complete Time: 18:17 Administered Medications: 18:24 Drug: NS 0.9% 1000 ml Route: IV; Rate: 1 bolus; Site: right upper arm; [facility] 19:24 Follow up: IV Status: Completed infusion; IV Intake: 100ml vc1 18:32 Drug: Cefepime 2 grams Route: IVPB; Rate: 200 ml/hr; Infused Over: 30 mins; Site: right [facility] upper arm; 19:02 Follow up: IV Status: Completed infusion; IV Intake: 100ml vc1 18:32 Drug: Tylenol 650 mg Route: PO; [facility] 22:00 Follow up: Temp 100.5 Catheter; Response: No adverse reaction; Temperature is decreased vc1 18:55 Not Given (Physician Discretion): Adenocard (adenosine) 6 mg IVP once ss 19:53 Drug: NS 0.9% (30 ml/kg) 30 ml/kg Route: IV; Rate: bolus; Site: right upper arm; vc1 20:53 Follow up: IV Intake: 1605ml vc1 21:00 Follow up: IV Status: Completed infusion; IV Intake: 1000ml vc1 Disposition: 18:48 Critical Care:. jr11 Disposition Summary: 05/06/22 18:50 Hospitalization Ordered Hospitalization Status: Inpatient Admission jr11 Location: Intensive Care Unit jr11 Condition: Serious jr11 Problem: new jr11 Symptoms: have worsened jr11 Bed/Room Type: Standard [facility] Provider: Fritz Hill(05/06/22 18:54) stephon Room Assignment: 6-(05/06/22 19:50) Diagnosis - Dyspnea jr11 - respiratory distress jr11 - Severe sepsis with septic shock jr11 Forms: - Medication Reconciliation Form jr11 - SBAR form jr11 Critical care time excluding procedures: 18:48 Critical care time: Bedside Care: 16 minutes, Consultation: 7 minutes, Family jr11 Intervention: 8 minutes. Total time: 31 minutes Addendum: 05/08/2022 13:59 PA/BIAS BINDING CUTTER's history reviewed, patient interviewed, and examined. I agree with assessment j r11 and care plan and confirm the diagnosis (es) above. Signatures: Dispatcher [employer] EDNM Demetra Tesfaye RN RN mw Mecca Garzon RN RN ss David Pineda FNP-C MEAT [id number] Magda Ferraro RN RN jh6 Tessy Serrato RN RN vc1 Curtis Rivas MD MD jr11 Corrections: (The following items were deleted from the chart) 05/06 18:54 18:50 Kristy Nolan jr11 la1 19:50 18:50 jr11 mw
[2022-05-06 18:55] LABS: Albumin 3.3 g/dL (3.4-5.0); Bilirubin Total 0.7 mg/dL (0.2-1.0); Potassium 5.1 mmol/L (3.5-5.1); Protein, Total 8.8 g/dL (6.4-8.2)
[2022-05-06 18:57] LABS: Troponin High Sensitivity 25.6 pg/mL (<58.9)
[2022-05-06 19:00] LABS: Arterial Blood Carboxyhemoglob 1.3 % (0-1.5); Blood Gas Oxyhemoglobin 94.1 % (94-97); Blood O2 Saturation 96.1 % (92-98.5)
[2022-05-06 19:11] LABS: Calcium Oxalate Crystals- Ur Few /HPF (None Seen); Urine Bacteria <20 /HPF (<20); Urine Mucus 4+ /HPF (None Seen); Urine RBC 21-50 /HPF (None Seen)
--- NOTE | 2022-05-06 19:17 | RAD REPORT ---
EXAM DESCRIPTION: RAD - Chest Single View - 05/06/2022 7:04 pm CLINICAL HISTORY: SOB, respiratory distress COMPARISON: Portable 05/03/2022 TECHNIQUE: AP portable chest image was obtained 05/06/2022 7:04 pm . FINDINGS: Trach tube is in place. No pulmonary edema, infiltrate or acute lung parenchymal process s een. Resuscitation paddles overlie the chest. The Heart and vasculature are normal. No measurable ple ural effusion and no pneumothorax. No acute bony abnormality seen. No acute aortic findings suspected . IMPRESSION: No acute cardiopulmonary process.
[2022-05-06 19:22] LABS: Blood Morphology Comment NOT SEEN (NOT SEEN); Platelet Estimate INCR; Toxic Granulation 1+
--- NOTE | 2022-05-06 20:07 | P.HP ---
Certification for Inpatient Patient admitted to: Inpatient With expected LOS: >2 Midnights Patient will require the following post-hospital care: None Practitioner: I am a practitioner with admitting privileges, knowledge of patient current condition, hospital course, and medical plan of care. Services: Services provided to patient in accordance with Admission requirements found in Title 42 Section 412.3 of the Code of Federal Regulations Patient History Date of Service: 05/06/22 Reason for admission: Septic shock History of Present Illness: 46-year-old female with history of anoxic brain injury who is trach dependent with PEG tube in place presents emergency department for respiratory distress, diaphoresis, tachycardia. She was discharged earlier today from the ICU here back to her [facility], they noted that she was having labored breathing and appeared very ill was transported by EMS back to the hospital. Upon arrival to the emergency department patient tachycardic with heart rate around 170, tachypneic, dyspneic, diaphoretic and febrile to 105.5 rectal. Sepsis protocol was initiated her labs were significant for acute renal failure with creatinine of 2.02 GFR of 30 glucose 347 lactic acid 12.6 mild elevations in AST/ALT White blood cell count spiked to 24.5 urine with no bacteria presents blood and sputum cultures were obtained ABG shows respiratory alkalosis. Patient was discharged on Bactrim/Doxy p.o. discussed case with infectious disease recommends IV Vabomere as well as inhaled colistin. Patient need to be admitted to the ICU for septic shock. She is receiving 30 cc/kg IV fluids after lactate came back greater than 4 she is not hypotensive at this time will repeat lactate after IV fluids completed. Her blood cultures during her previous admission were negative sputum culture returned MRSA as well as stenotrophomonas maltophilia. Chest x-ray was unremarkable CT chest without contrast ordered for further e valuation. Per chart review patient had previously been diagnosed with paroxysmal sympathetic hypersensitivity which also explain her symptoms although we will certainly need to rule out infectious causes patient does have copious amounts of purulent sputum per her trach. Allergies No Known Allergies Allergy (Unverified 04/22/22 04:01) Home Medications: Albuterol Neb [Proventil 0.083% Neb Soln] 1 amp NEB Q6HR 04/22/22 Aspirin [Aspirin EC 81 MG] 81 mg PO DAILY 04/22/22 Atorvastatin Calcium 20 mg PO DAILY 04/22/22 Baclofen 5 mg PO TID 04/22/22 Enoxaparin Sodium [Lovenox 60 MG INJ*] 60 mg SQ Q12H 04/22/22 Gabapentin [Neurontin*] 100 mg PO TID 04/22/22 Polyethylene Glycol 3350 [Miralax] 17 gm PO DAILY 04/22/22 cloNIDine HCL [Clonidine HCl] 0.1 mg PO TID 04/22/22 Ipratropium Neb [Atrovent*] 0.5 mg NEB [id number] amp 04/25/22 Jevity 1.2 Danie Liquid 240 ml FT QID bot 04/25/22 Sertraline [Zoloft*] 100 mg PO BEDTIME 04/29/22 Doxycycline Hyclate 100 mg PO BID #14 tab 05/05/22 Fluconazole 200 mg PO DAILY #14 05/05/22 Rivaroxaban [Xarelto*] 10 mg PO DAILY AT SUPPER 05/05/22 Sulfameth/Trimethoprim [Bactrim Pedi Suspension*] 20 ml FT BID 7 Days udbot 05/05/22 - Past Medical/Surgical History Diabetic: No -: Anoxic Brain Injury -: Paroxysmal sympathetic hyperactivity -: Hysterectomy -: G Tube -: Tracheostomy Psychosocial/ Personal History: Patient lives at [facility]. She has a daughter. - Family History Father History Unknown: Yes - Social History Smoking Status: Unknown if ever smoked Alcohol use: No CD- Drugs: No Caffeine use: No Place of Residence: Home Review of Systems is unable to be obtained Physical Examination - Physical Exam General: Moderate distress HEENT: Atraumatic, Mucous membr. moist/pink Neck: Supple, No LAD Respiratory: Diminished, Crackles/rales Cardiovascular: No edema, Regular rate/rhythm (Sinus tachycardia rate 160) Capillary refill: <2 Seconds Gastrointestinal: Normal bowel sounds, Other (PEG tube in place) Musculoskeletal: No swelling, No contractures, No erythema Integumentary: No breakdown, No significant lesion Neurological: Other (Dystonia), Abnormal speech (Patient nonverbal after anoxic brain injury communicates by blinking at baseline), Abnormal strength (Contractures noted) - Studies Laboratory Data (last 24 hrs) 05/06/22 18:17: PT 11.0, INR 1.00, APTT 34.9 05/06/22 18:17: Sodium 132 L, Potassium 5.1, BUN 16, Creatinine 2.02 H D, Glucose 347 H, Total Bilirubin 0.7, AST 68 H, ALT 79 H, Alkaline Phosphatase 119 H 05/06/22 18:17: WBC 24.5 H* D, Hgb 12.6 D, Hct 38.8 D, Plt Count 616 H D Assessment and Plan - Plan Assessment: Septic shock secondary to suspected pneumonia Acute hypoxic respiratory failure secondary to suspected pneumonia/copious secretions/mucous plugging Acute renal failure secondary to septic shock Elevated AST/ALT secondary to septic shock Recent positive sputum culture for MRSA, stenotrophomonas History of opioid overdose complicated by anoxic brain injury with trach/PEG/quadriplegia History of paroxysmal sympathetic hyperactivity syndrome Plan: Septic shock secondary to suspected pneumonia: Patient with copious purulent secretions from her trach chest x-ray is unremarkable CT without contrast currently pending for further evaluation she does have a history of aspiration pneumonia, mucous plugging and pneumonias. She received IV meropenem and Bactrim during hospitalization I discussed the case with infectious disease who recommended IV Vabomere, inhaled colistin 150 mg twice daily. Blood cultures, sputum cultures, urine obtained continue broad-spectrum antibiotics. Patient's presentation does also line up with paroxysmal sympathetic hyperactivity syndrome given her dystonia, tachycardia, fever, diaphoresis, tachypnea which can also have a leukocytosis although infection also significantly likely given recent positive sputum cultures and elevated neutrophils. We will continue treatment for septic shock. Initial lactate 12.6 patient is not hypotensive IV fluid bolus given in the emergency department will follow repeat lactate. Acute hypoxic respiratory failure secondary to suspected pneumonia/copious secretions/mucous plugging: Continue as above currently on BiPAP via trach tolerating this well. Pulmonology consulted. Respiratory alkalosis on ABG patient was tachypneic upon arrival. Acute renal failure secondary to septic shock: IV fluid bolus ordered in ED, nephrology to be consulted. Continue IV fluids overnight. Elevated AST/ALT secondary to septic shock: Continue treatment for septic shock monitor daily CMP. Recent positive sputum culture for MRSA, stenotrophomonas: Repeat sputum culture obtained continue antibiotics as above. History of opioid overdose complicated by anoxic brain injury with trach/PEG/quadriplegia History of paroxysmal sympathetic hyperactivity syndrome: Likely contributing to clinical scenario, patient also with significant concern for infection. Treat underlying cause/infection. DVT PPX: Heparin Code status: Full Discharge Plan: Home Plan to discharge in: Greater than 2 days - Advance Directives Does patient have a Living Will: No Does patient have a Durable POA for Healthcare: No - Code Status/Comfort Care Code Status Assessed: Yes (Full code) Critical Care: No Time Spent Managing Pts Care (In Minutes): 70
--- NOTE | 2022-05-06 20:51 | RAD REPORT ---
EXAM DESCRIPTION: CT - Thorax Wo Con - 05/06/2022 8:40 pm CLINICAL HISTORY: Sepsis COMPARISON: Chest Abdomen Pelvis W Cont dated 04/29/2022; Chest Single View dated 05/06/2022 TECHNIQUE: Axial 5 mm thick images of the chest were obtained without IV contrast. All CT scans are performed using dose optimization technique as appropriate and may include automated exposure control or mA/KV adjustment according to patient size. FINDINGS: Left lower lobe atelectasis has progressed from the April 29 imaging. Medial left base pos itioning limits monitoring or surveillance using plain film. Mucous plugging seen on the April 29 edmund dy in the left lower lobe bronchus is absent or less evident on the current examination. Patient coul d have superimposed consolidation. Minimal atelectasis changes are present in the posteromedial right lower lung field. No other significant lung parenchymal process identified. No pleural thickening or pleural effusion. No pneumothorax. No abnormal mediastinal or hilar masses or lymphadenopathy seen. No gross aortic or pulmonary artery finding suspected. Trach tube is in place appearing well positioned. No chest wall mass or abnormal axillary lymphadenopathy. IMPRESSION: Worsening of the left lower lobe opacification since April 29. This is suspected to be a spiration or infectious pneumonia superimposed on atelectasis.
[2022-05-06] MEDS ORDERED: ONDANSETRON 4 MG/2 ML VIAL IV PRN (21:06)
[2022-05-06] MEDS ORDERED: ALBUTEROL 2.5 MG/3 ML NEB SOL NEB PRN (21:06)
[2022-05-06] MEDS ORDERED: SODIUM CHLORIDE 0.9% 20 ML VIAL IV SCH (22:00)
[2022-05-06] MEDS ORDERED: COLISTIMETHATE NA 150 MG/VIAL IH SCH (22:00)
[2022-05-06] MEDS: COLISTIMETHATE NA 150 MG/VIAL IH SCH (23:00)
[2022-05-06] MEDS: SODIUM CHLORIDE 0.9% 20 ML VIAL IV SCH (23:00)
[2022-05-06] MEDS: HEPARIN 5000 UNIT/ML 1 ML VIAL SQ SCH (23:10)
[2022-05-06] MEDS: MEROPENEM/VABORBACTAM 4 GM in NA CHLORIDE 0.9% 250 ML IV SCH (23:10)
[2022-05-06] MEDS: NA CHLORIDE 0.9% 1,000 ML IV SCH (23:26)
[2022-05-07] MEDS: MEROPENEM/VABORBACTAM 4 GM in NA CHLORIDE 0.9% 250 ML IV SCH ×3 (01:00→21:41)
[2022-05-07 04:44] LABS: Absolute Lymphocytes (CBC) 1.9 K/uL (0.7-4.9); Hematocrit 32.4 % (36.0-45.0); Lymphocytes % 8.9 % (15.3-44.8); MCV 87.2 fL (80-100); MPV 7.8 fL (7.6-11.3); RBC Red Blood Cell Count 3.72 M/uL (3.86-4.86)
[2022-05-07] MEDS ORDERED: MEROPENEM/VABORBACTAM 4 GM in NA CHLORIDE 0.9% 250 ML IV SCH (05:00)
[2022-05-07] MEDS ORDERED: MEROPENEM IV ONE (06:00)
[2022-05-07] MEDS ORDERED: NA CHLORIDE 0.9% IV ONE (06:00)
[2022-05-07] MEDS ORDERED: VABORBACTAM IV ONE (06:00)
[2022-05-07] MEDS: NA CHLORIDE 0.9% 1,000 ML IV SCH ×2 (06:14→16:13)
[2022-05-07 06:52] LABS: Albumin 2.9 g/dL (3.4-5.0); Bilirubin Total 0.6 mg/dL (0.2-1.0); Protein, Total 7.7 g/dL (6.4-8.2)
[2022-05-07 06:57] LABS: Magnesium 2.2 mg/dL (1.8-2.4); Potassium 4.9 mmol/L (3.5-5.1)
[2022-05-07] MEDS: COLISTIMETHATE NA 150 MG/VIAL IH SCH ×2 (08:00→20:00)
[2022-05-07] MEDS ORDERED: SODIUM CHLORIDE 0.9% 20 ML VIAL IV SCH ×2 (08:00)
[2022-05-07] MEDS: SODIUM CHLORIDE 0.9% 20 ML VIAL IV SCH ×2 (08:00→20:00)
[2022-05-07] MEDS ORDERED: NA CHLORIDE 0.9% IV SCH ×2 (09:00→14:00)
[2022-05-07] MEDS ORDERED: VABORBACTAM IV SCH ×2 (09:00→14:00)
[2022-05-07] MEDS ORDERED: MEROPENEM IV SCH ×2 (09:00→14:00)
--- NOTE | 2022-05-07 09:52 | P.CNS ---
Date of Consult: 05/07/22 Reason for Consult: renal failure Requesting Physician: elijah yoo Chief Complaint: Septic shock History of Present Illness: 46F w/ PMHx of brain injury s/p trach + PEG who p/w acute on chronic respiratory distress, diaphoresis, tachycardia, admitted for severe sepsis 2/2 aspiration pneumonia. Referred to Nephrology for JANINE. SCr on adm 2.0. She was started on abx & IV fluids. SCr improved to 1.1. Allergies No Known Allergies Allergy (Unverified 04/22/22 04:01) Home Medications: Albuterol Neb [Proventil 0.083% Neb Soln] 1 amp NEB Q6HR 04/22/22 Aspirin [Aspirin EC 81 MG] 81 mg PO DAILY 04/22/22 Atorvastatin Calcium 20 mg PO DAILY 04/22/22 Baclofen 5 mg PO TID 04/22/22 Enoxaparin Sodium [Lovenox 60 MG INJ*] 60 mg SQ Q12H 04/22/22 Gabapentin [Neurontin*] 100 mg PO TID 04/22/22 Polyethylene Glycol 3350 [Miralax] 17 gm PO DAILY 04/22/22 cloNIDine HCL [Clonidine HCl] 0.1 mg PO TID 04/22/22 Ipratropium Neb [Atrovent*] 0.5 mg NEB [id number] amp 04/25/22 Jevity 1.2 Danie Liquid 240 ml FT QID bot 04/25/22 Sertraline [Zoloft*] 100 mg PO BEDTIME 04/29/22 Doxycycline Hyclate 100 mg PO BID #14 tab 05/05/22 Fluconazole 200 mg PO DAILY #14 05/05/22 Rivaroxaban [Xarelto*] 10 mg PO DAILY AT SUPPER 05/05/22 Sulfameth/Trimethoprim [Bactrim Pedi Suspension*] 20 ml FT BID 7 Days udbot 05/05/22 - Past Medical/Surgical History Diabetic: No -: Anoxic Brain Injury -: Paroxysmal sympathetic hyperactivity -: Hysterectomy -: G Tube -: Tracheostomy Psychosocial/ Personal History: Patient lives at [facility]. She has a daughter. - Family History Father History Unknown: Yes Notes: unable to assess r/t pt condition - Social History Smoking Status: Unknown if ever smoked Alcohol use: No CD- Drugs: No Caffeine use: No Place of Residence: Long-Term Review of Systems is unable to be obtained (2/2 AMS) Physical Examination Temp Pulse Resp BP Pulse Ox 98.8 F 118 H 23 H 113/73 100 05/07/22 04:00 05/07/22 06:00 05/07/22 06:00 05/07/22 06:00 05/07/22 06:00 General: Other (appears chronically ill) HEENT: Atraumatic, Normocephalic, Other (+trach) Neck: Other (+trach) Respiratory: Other (symmetric chest expansion) Cardiovascular: No rubs, No murmurs Gastrointestinal: Soft and benign, No rebound Musculoskeletal: No clubbing Integumentary: No warmth Neurological: Normal tone Urinary: Other (no bladder distention) External genitalia: Deferred Rectal: Deferred Laboratory Data (last 24 hrs) 05/06/22 18:17: PT 11.0, INR 1.00, APTT 34.9 05/06/22 18:17: Sodium 132 L, Potassium 5.1, BUN 16, Creatinine 2.02 H D, Glucose 347 H, Total Bilirubin 0.7, AST 68 H, ALT 79 H, Alkaline Phosphatase 119 H 05/06/22 18:17: WBC 24.5 H* D, Hgb 12.6 D, Hct 38.8 D, Plt Count 616 H D Conclusions/Impression: # JANINE 2/2 prerenal state +/- septic ATN SCr on adm 2.0. She was started on abx & IV fluids. SCr improved to 1.1. Urinalysis no pyuria Cont NS gtt same rate, avoid net neg fluid balance Cont garza MAP goal > 65 Monitor I/O, renal panel # Severe sepsis 2/2 aspiration pna Abx per primary team IV fluids as above +Mucus plugging. Pulmo toilet. F/u cultures # Anoxic brain injury w/ quadriplegia s/p trach + PEG Per other services # Anemia Monitor H/H # Acidosis Improved, monitor
[2022-05-07] MEDS: HEPARIN 5000 UNIT/ML 1 ML VIAL SQ SCH ×2 (10:08→21:06)
--- NOTE | 2022-05-07 12:12 | P.PN ---
Subjective Date of Service: 05/07/22 Chief Complaint: Septic shock Patient cannot give any subjective complaint. She has been afebrile today. Nursing staff report copious thick brownish sputum suctioned from the tracheostomy. Physical Examination - Vital Signs Temperature: 96.6 F Blood Pressure: 120/76 Pulse: 118 Respirations: 21 Pulse Ox (%): 99 - Studies Laboratory Data (last 24 hrs) 05/06/22 18:17: PT 11.0, INR 1.00, APTT 34.9 05/06/22 18:17: Sodium 132 L, Potassium 5.1, BUN 16, Creatinine 2.02 H D, Glucose 347 H, Total Bilirubin 0.7, AST 68 H, ALT 79 H, Alkaline Phosphatase 119 H 05/06/22 18:17: WBC 24.5 H* D, Hgb 12.6 D, Hct 38.8 D, Plt Count 616 H D Microbiology Data (last 24 hrs): 05/06/22 06:11 Sputum Sputum Gram Stain - Final Assessment And Plan - Plan Physical exam GEN: Awake. HEENT:sclera anicteric. Neck: Trach-vent CV: Tachycardia, regular rhythm. Pulm: non-labored respirations on trach -vent, bilateral upper airway transmitted sounds ABD: Soft, nontender, nondistended, gastric tube in place, no surrounding erythema Neuro: Quadriplegic. Problem List severe sepsis. Aspiration pneumonia History of MRSA Acute respiratory failure with hypoxia Left lower lobe atelectasis History of anoxic Brain Injury Tracheostomy dependent Quadriplegic Plan: Tracheostomy replaced during previous hospitalization. Currently stable on the vent. Aggressive antibiotic therapy-Vabomere. Tracheal suctioning as needed. IV fluid. Infectious disease consulted. Meropenem to treat aspiration pneumonia. Follow cultures. Pulmonary consult. Start Diflucan. Glycopyrrolate as needed for excessive respiratory secretions. Constipation prophylaxis. Wean off vent as tolerated.
[2022-05-07] MEDS ORDERED: GLYCOPYRROLATE 0.2 MG/ML SYR IV PRN (12:19)
[2022-05-07] MEDS: GABAPENTIN 100 MG CAP PO SCH ×2 (13:33→21:13)
[2022-05-07] MEDS: BACLOFEN 10 MG TAB PO SCH ×2 (13:33→21:12)
[2022-05-07] MEDS: FLUCONAZOLE 100 MG TAB PO SCH (13:33)
[2022-05-07] MEDS: JEVITY 1.2 CAL LIQUID 1,000 ML BOT FT SCH ×3 (13:36→21:16)
[2022-05-07] MEDS ORDERED: HOME MED 1 EA UNK (Baclofen [Baclofen] 5 MG Tablet) PO SCH (14:00)
[2022-05-07] MEDS ORDERED: LORazepam 2 MG/ML VIAL IV PRN (15:28)
[2022-05-07] MEDS: RIVAROXABAN 10 MG TABLET PO SCH (16:46)
[2022-05-08] MEDS: NA CHLORIDE 0.9% 1,000 ML IV SCH ×3 (01:50→22:09)
[2022-05-08] MEDS: MEROPENEM/VABORBACTAM 4 GM in NA CHLORIDE 0.9% 250 ML IV SCH ×3 (06:15→20:47)
[2022-05-08 07:44] LABS: Absolute Lymphocytes (CBC) 1.3 K/uL (0.7-4.9); Hematocrit 23.6 % (36.0-45.0); Lymphocytes % 12.7 % (15.3-44.8); MCV 87.1 fL (80-100); MPV 7.7 fL (7.6-11.3); RBC Red Blood Cell Count 2.71 M/uL (3.86-4.86)
[2022-05-08] MEDS: SODIUM CHLORIDE 0.9% 20 ML VIAL IV SCH ×2 (08:00→20:00)
[2022-05-08 08:06] LABS: Albumin 2.2 g/dL (3.4-5.0); Bilirubin Total 0.2 mg/dL (0.2-1.0); Potassium 3.5 mmol/L (3.5-5.1); Protein, Total 5.8 g/dL (6.4-8.2)
[2022-05-08] MEDS: COLISTIMETHATE NA 150 MG/VIAL IH SCH ×2 (08:12→19:17)
[2022-05-08] MEDS: BACLOFEN 10 MG TAB PO SCH ×3 (08:13→20:48)
[2022-05-08] MEDS: HEPARIN 5000 UNIT/ML 1 ML VIAL SQ SCH (08:13)
[2022-05-08] MEDS: GABAPENTIN 100 MG CAP PO SCH ×3 (08:14→20:48)
[2022-05-08] MEDS: FLUCONAZOLE 100 MG TAB PO SCH (08:14)
[2022-05-08] MEDS: JEVITY 1.2 CAL LIQUID 1,000 ML BOT FT SCH ×4 (08:15→20:48)
--- NOTE | 2022-05-08 08:35 | P.CNS ---
Date of Consult: 05/08/22 Reason for Consult: Respiratory failure Chief Complaint: Respiratory failure History of Present Illness: Patient is 46 years of age was recently discharged came back again respiratory distress tachycardic just recently discharged was also febrile he is more se ttled right now on the ventilator appeared to be septic again 4 Allergies No Known Allergies Allergy (Unverified 04/22/22 04:01) Home Medications: Albuterol Neb [Proventil 0.083% Neb Soln] 1 amp NEB Q6HR 04/22/22 Aspirin [Aspirin EC 81 MG] 81 mg PO DAILY 04/22/22 Atorvastatin Calcium 20 mg PO DAILY 04/22/22 Baclofen 5 mg PO TID 04/22/22 Enoxaparin Sodium [Lovenox 60 MG INJ*] 60 mg SQ Q12H 04/22/22 Gabapentin [Neurontin*] 100 mg PO TID 04/22/22 Polyethylene Glycol 3350 [Miralax] 17 gm PO DAILY 04/22/22 cloNIDine HCL [Clonidine HCl] 0.1 mg PO TID 04/22/22 Ipratropium Neb [Atrovent*] 0.5 mg NEB [id number] amp 04/25/22 Jevity 1.2 Danie Liquid 240 ml FT QID bot 04/25/22 Sertraline [Zoloft*] 100 mg PO BEDTIME 04/29/22 Doxycycline Hyclate 100 mg PO BID #14 tab 05/05/22 Fluconazole 200 mg PO DAILY #14 05/05/22 Rivaroxaban [Xarelto*] 10 mg PO DAILY AT SUPPER 05/05/22 Sulfameth/Trimethoprim [Bactrim Pedi Suspension*] 20 ml FT BID 7 Days udbot 05/05/22 - Past Medical/Surgical History Diabetic: No -: Anoxic Brain Injury -: Paroxysmal sympathetic hyperactivity -: Hysterectomy -: G Tube -: Tracheostomy Psychosocial/ Personal History: Patient lives at [facility]. She has a daughter. - Family History Father History Unknown: Yes Notes: unable to assess r/t pt condition - Social History Smoking Status: Unknown if ever smoked Alcohol use: No CD- Drugs: No Caffeine use: No Place of Residence: Assisted Review of Systems is unable to be obtained Physical Examination Temp Pulse Resp BP Pulse Ox 97.2 F 93 H 18 101/66 99 05/08/22 04:00 05/08/22 06:00 05/08/22 06:00 05/08/22 06:00 05/08/22 06:00 General: Alert, Moderate distress Respiratory: Expiratory wheezes, Rhonchi/gurgles Cardiovascular: No edema, Normal S1 S2, Edema Gastrointestinal: Normal bowel sounds, Soft and benign - Problems (1) Respiratory failure Current Visit: Yes Status: Acute Plan: Patient is 46 years of age with anoxic encephalopathy readmissions again with respiratory distress patient was treated on broad-spectrum antibiotics CT scan shows left lower lobe atelectasis that was present on previous admission there is no pneumonia present patient had copious secretions also febrile patient had an elevated white count elevated lactic acid all in and all appearance appeared to be severe sepsis presented in the same way in her previous admission repeat sputum cultures have been ordered patient has a metabolic acidosis anion gap elevated lactate very high risk for opportunistic fungal infection start on micafungin also cover with vancomycin vital signs are currently stable prognosis poor patient is on nebulized Cplostin also mildly anemic doing better on BiPAP Qualifiers: Chronicity: acute on chronic
[2022-05-08] MEDS ORDERED: FLUCONAZOLE 200 MG PO SCH (09:00)
[2022-05-08] MEDS ORDERED: MICAFUNGIN SODIUM 100 MG VIAL IV SCH (09:00)
[2022-05-08] MEDS ORDERED: FLUCONAZOLE 100 MG TAB PO SCH (09:00)
[2022-05-08] MEDS: MICAFUNGIN SODIUM 100 MG in NA CHLORIDE 0.9% 100 ML IV SCH (09:18)
[2022-05-08] MEDS: GLYCOPYRROLATE 0.2 MG/ML SYR IV SCH ×3 (10:21→20:48)
--- NOTE | 2022-05-08 10:24 | P.PN ---
Subjective Date of Service: 05/08/22 Chief Complaint: Respiratory failure Subjective: No new changes Physical Examination - Vital Signs Temperature: 97.7 F Blood Pressure: 112/73 Pulse: 97 Respirations: 17 Pulse Ox (%): 97 - Physical Exam General: Other (Appears chronically ill) HEENT: Atraumatic, Normocephalic Neck: Other (+trach) Respiratory: Other (symmetric chest expansion) Cardiovascular: No rubs, No murmurs Gastrointestinal: Other (+PEG) Musculoskeletal: No clubbing Integumentary: No warmth Neurological: Other (No new focal deficits) Urinary: Other (no bladder distention) External genitalia: Deferred Rectal: Deferred - Studies Microbiology Data (last 24 hrs): 05/06/22 06:11 Sputum Sputum Gram Stain - Final Assessment And Plan - Plan # JANINE 2/2 prerenal state +/- septic ATN SCr on adm 2.0. She was started on abx & IV fluids. SCr improved to 0.6. Urinalysis no pyuria Cont NS gtt same rate, avoid net neg fluid balance Cont garza MAP goal > 65 Monitor I/O, renal panel # Severe sepsis 2/2 aspiration pna Abx per primary team IV fluids as above +Mucus plugging. Pulmo toilet. F/u cultures # Hypernatremia Wt 53.1 kgs Total body water 26.5L Free water deficit 1.2L plus ongoing losses Increase NS gtt to 125 cc/hr # Anoxic brain injury w/ quadriplegia s/p trach + PEG Per other services # Anemia Monitor H/H # Acidosis Improved, monitor
--- NOTE | 2022-05-08 12:52 | P.PN ---
Subjective Date of Service: 05/08/22 Chief Complaint: Respiratory failure Patient cannot give any subjective complaint. No fever past 48 hours Nursing staff report copious secretions from the tracheostomy. Good urine output. Physical Examination - Vital Signs Temperature: 97.7 F Blood Pressure: 112/73 Pulse: 97 Respirations: 17 Pulse Ox (%): 97 - Studies Microbiology Data (last 24 hrs): 05/06/22 06:11 Sputum Sputum Gram Stain - Final 05/06/22 06:11 Sputum Culture & Sensitivity - Final Enterobacter Cloacae Assessment And Plan - Plan Physical exam GEN: Awake. HEENT:sclera anicteric. Neck: Trach-vent CV: Tachycardia, regular rhythm. Pulm: non-labored respirations on trach -vent, bilateral upper airway transmitted sounds ABD: Soft, nontender, nondistended, gastric tube in place, no surrounding erythema Neuro: Quadriplegic. Problem List severe sepsis. Aspiration pneumonia History of MRSA Acute respiratory failure with hypoxia Left lower lobe atelectasis History of anoxic Brain Injury Tracheostomy dependent Quadriplegic Acute renal failure UTI Plan: Tracheostomy replaced during previous hospitalization. Currently stable on the vent. Aggressive antibiotic therapy-Vabomere. Pulmonary toilet Tracheal suctioning as needed. Continue IV fluid. Infectious disease consulted. Meropenem to treat aspiration pneumonia. Sputum culture is growing Enterobacter. UA suggest UTI, urine culture is growing mixed organisms. I highly suspect these bacterial growth are colonization Pulmonary input appreciated Continue Diflucan. Glycopyrrolate as needed for excessive respiratory secretions. Constipation prophylaxis. Wean off vent as tolerated.
[2022-05-08] MEDS: RIVAROXABAN 10 MG TABLET PO SCH (15:59)
[2022-05-09 05:06] LABS: Absolute Lymphocytes (CBC) 1.4 K/uL (0.7-4.9); Hematocrit 25.1 % (36.0-45.0); Lymphocytes % 20.5 % (15.3-44.8); MCV 87.4 fL (80-100); MPV 7.5 fL (7.6-11.3); RBC Red Blood Cell Count 2.87 M/uL (3.86-4.86)
[2022-05-09 05:14] LABS: Albumin 2.3 g/dL (3.4-5.0); Bilirubin Total 0.2 mg/dL (0.2-1.0); Magnesium 1.7 mg/dL (1.8-2.4); Potassium 3.8 mmol/L (3.5-5.1); Protein, Total 6.4 g/dL (6.4-8.2)
[2022-05-09] MEDS: NA CHLORIDE 0.9% 1,000 ML IV SCH ×3 (06:14→16:39)
[2022-05-09] MEDS: MEROPENEM/VABORBACTAM 4 GM in NA CHLORIDE 0.9% 250 ML IV SCH ×3 (06:51→21:05)
[2022-05-09] MEDS: GLYCOPYRROLATE 0.2 MG/ML SYR IV SCH ×2 (06:52→09:41)
[2022-05-09] MEDS: SODIUM CHLORIDE 0.9% 20 ML VIAL IV SCH ×2 (08:00→20:00)
[2022-05-09] MEDS: COLISTIMETHATE NA 150 MG/VIAL IH SCH ×2 (08:00→20:00)
[2022-05-09] MEDS: MICAFUNGIN SODIUM 100 MG in NA CHLORIDE 0.9% 100 ML IV SCH (09:41)
[2022-05-09] MEDS: GABAPENTIN 100 MG CAP PO SCH ×3 (09:41→21:04)
[2022-05-09] MEDS: BACLOFEN 10 MG TAB PO SCH ×3 (09:41→21:04)
[2022-05-09] MEDS: JEVITY 1.2 CAL LIQUID 1,000 ML BOT FT SCH ×4 (09:42→21:04)
--- NOTE | 2022-05-09 10:59 | P.PN ---
Subjective Date of Service: 05/09/22 Chief Complaint: Respiratory failure Patient cannot give any subjective complaint. No fever. She is stable on CPAP Nursing staff report persistent brown-colored secretions from the tracheostomy. Good urine output. Physical Examination - Vital Signs Temperature: 97.7 F Blood Pressure: 112/73 Pulse: 97 Respirations: 17 Pulse Ox (%): 97 - Studies Microbiology Data (last 24 hrs): 05/06/22 18:50 Catheterized Urine [place] Count - Final >100,000 CFU/ML. 05/06/22 18:50 Catheterized Urine - Final 05/06/22 06:11 Sputum Sputum Gram Stain - Final 05/06/22 06:11 Sputum Culture & Sensitivity - Final Enterobacter Cloacae Assessment And Plan - Plan Physical exam GEN: Awake. HEENT:sclera anicteric. Neck: Trach-vent CV: Tachycardia, regular rhythm. Pulm: non-labored respirations on trach -vent, clear to auscultation. ABD: Soft, nontender, nondistended, gastric tube in place, no surrounding erythema Neuro: Quadriplegic. Problem List severe sepsis. Aspiration pneumonia History of MRSA Acute respiratory failure with hypoxia Left lower lobe atelectasis History of anoxic Brain Injury Tracheostomy dependent Quadriplegic Acute renal failure UTI Plan: Tracheostomy replaced during previous hospitalization. Currently stable on CPAP Aggressive antibiotic therapy-Vabomere. Pulmonary toilet Tracheal suctioning as needed. Discontinue IV fluid. PEG tube feeding. Glycopyrrolate as needed for excessive tracheal secretions Infectious disease consulted. Meropenem to treat aspiration pneumonia. Sputum culture is growing Enterobacter. UA suggest UTI, urine culture is growing mixed organisms. I highly suspect these bacterial growth are colonization Pulmonary input appreciated Continue Diflucan. Constipation prophylaxis. Wean off CPAP to oxygen by trach collar as tolerated. Social service consulted to assist with disposition.
--- NOTE | 2022-05-09 12:00 | P.PN ---
Subjective Date of Service: 05/09/22 Chief Complaint: Respiratory failure Subjective: Improving (Patient is doing much better on BiPAP still has some secretions) Review of Systems is unable to be obtained Physical Examination - Vital Signs Temperature: 97.7 F Blood Pressure: 131/85 Pulse: 110 Respirations: 16 Pulse Ox (%): 100 - Physical Exam General: Unresponsive Respiratory: Diminished Cardiovascular: No edema, Regular rate/rhythm, Edema - Studies Microbiology Data (last 24 hrs): 05/06/22 18:50 Catheterized Urine [place] Count - Final >100,000 CFU/ML. 05/06/22 18:50 Catheterized Urine - Final 05/06/22 06:11 Sputum Sputum Gram Stain - Final 05/06/22 06:11 Sputum Culture & Sensitivity - Final Enterobacter Cloacae Assessment And Plan - Current Problems (Diagnosis) (1) Respiratory failure Current Visit: Yes Status: Acute Plan: Patient admitted with recurrent respiratory failure so far she has yeast in her urine most likely she has a systemic fungal infection Enterobacter isolated in the sputum antibiotics can be narrowed down DC nebulized colistin white count is now back to normal vital signs oxygenation stable there is no evidence of pneumonia on the CT scan DC glycopyrrolate and to thicken up the secretions probably has Enterobacter tracheobronchitis and most likely systemic candidiasis Qualifiers: Chronicity: acute on chronic
[2022-05-09] MEDS: MIDAZOLAM HCL 2 MG/2 ML INJ IV PRN (13:00)
[2022-05-09] MEDS: ALBUTEROL 2.5 MG/3 ML NEB SOL NEB SCH ×2 (14:00→20:35)
[2022-05-09] MEDS: RIVAROXABAN 10 MG TABLET PO SCH (16:39)
--- NOTE | 2022-05-09 18:54 | P.PN ---
Date of Service: 05/10/22 Subjective: no acute events overnight ROS: 10 point ROS unable to be obtained Physical Exam: GEN: Awake, NAD HEENT: Normal conjunctiva, sclera anicteric CV: regular rate/rhythm, no edema Pulm: non-labored respirations on trach collar ABD: Soft, nontender, nondistended, gastric tube in place, no surrounding erythema Neuro: Quadriplegic, blinks eyes when asked vitals reviewed Problem List Severe Sepsis secondary to possible Aspiration pneumonia Acute respiratory failure with hypoxia History of MRSA Left lower lobe atelectasis History of anoxic Brain Injury Tracheostomy dependent Quadriplegic Acute renal failure UTI continue Vabomere - cover resistant enterobacter ID consulted - recommends 10 days total vabomere, continue cilastin with vabomere and additional 10 days after vabomere completion sputum: enterobacter UA: bacteruria Urine Cx: mixed jhonny; most likely colonization; +yeast continue micafungin per pulm recommendations; suspect systemic fungal infection Oxygenation improving, tolerating trach collar vitals more consistently in normal range, slight tachypnea pulm consulted continue pulm toilet tracheostomy was replaced during previous hospitalization without complications copious upper airway secretions, suctioning as needed JANINE - likely sepsis / ATN improving nephrology following Continue PEG tube feeds VTE: chronic xarelto Code: full Dispo: back to [facility], ~2-3 days Time Spent Managing Pts Care (In Minutes): 35
--- NOTE | 2022-05-09 19:27 | CON ---
History Of Present Illness: This is a 46-year-old female, who has significant past medical history o f anoxic brain injury, trach dependent, PEG tube placed, coming in the emergency room with respirator y distress and septic. The patient was transferred to ICU. She was recently discharged from care to [facility]. This is her second time coming back with same symptoms. She did respond well to Vabo mere before when she had enterobacter, which was resistant to everything, but Vabomere she was respon ding well. Past Medical History: As per HPI. Social History: Unknown. Family History: None known. Medications: Colistin and Vabomere. Review of Systems: Unable to obtain. Physical Examination: General: The patient lying in bed, on ventilator with the trach in place. Vital Signs: Temperature 97, pulse 110, respirations 16, blood pressure 131/85. HEENT: Unremarkable. Neck: Supple. Lungs: Basal crackles. Heart: S1, S2. Regular. Abdomen: Soft, nontender. Bowel sounds present. Extremities: Trace edema. Laboratory Data: CT chest done this admission shows worsening of left lower opacifications since Apr ust 5th with possible aspiration or infectious pneumonia. Assessment And Plan: Status post septic shock. Currently, the patient on Vabomere and colistin. We will recommend to continue. Continue total of 14 days. Monitor for signs of infection and sepsis. Once the patient has stabilized, possible discharge on Vabomere and colistin. Consider discharging the patient on colistin inhalation to complete the course of 14 days after 7 days of IV antibiotic tr eatment. We will follow the patient closely. Thank you for consult. NF/MODL Voice ID: [id number] Report ID: [id number]
[2022-05-09] MEDS: IPRATROPIUM BROM 0.5MG/2.5ML NEB PRN (20:35)
[2022-05-10] MEDS: IPRATROPIUM BROM 0.5MG/2.5ML NEB PRN ×3 (01:45→14:20)
[2022-05-10] MEDS: ALBUTEROL 2.5 MG/3 ML NEB SOL NEB SCH ×4 (01:45→19:30)
--- NOTE | 2022-05-10 02:18 | PN ---
Date of Progress Note: 05/09/2022 Chief Complaint: Acute kidney injury. Subjective: The patient has nonoliguric urine output. She developed sepsis and hypotension. Serum creatinine on admission was 2.0. Patient responded to IV fluids. Review of Systems: Unobtainable. Objective: Lungs: Equal chest expansion. Heart: S1, S2. Abdomen: Soft, PEG tube present. Extremities: No edema. Impression And Plan: 1.Acute kidney injury secondary to prerenal state complicated by septic acute tubular necrosis. Ser um creatinine on admission was 2.0. Patient was started on IV fluids and on antibiotics. Serum crea tinine has improved to baseline to 0.6. Urinalysis showed pyuria. Patient is on antibiotics. Plan is to follow up on culture. 2.Patient will require hydration. Continue to monitor and adjust fluids as needed. Patient will st art tube feeding. 3.Severe sepsis secondary to aspiration pneumonia. Patient had IV fluids volume resuscitation. Pul [facility] toilet was ordered by primary team. 4.Hypernatremia. Adjust IV fluids as needed. Free water deficit was 1.2 L. Continue to adjust mercedes atment according to lab result. EB/MODL Voice ID: [id number] Report ID: [id number]
[2022-05-10 05:17] LABS: Absolute Lymphocytes (CBC) 1.1 K/uL (0.7-4.9); Hematocrit 23.4 % (36.0-45.0); Lymphocytes % 21.7 % (15.3-44.8); MCV 85.8 fL (80-100); MPV 6.8 fL (7.6-11.3); RBC Red Blood Cell Count 2.73 M/uL (3.86-4.86)
[2022-05-10 05:35] LABS: Albumin 2.3 g/dL (3.4-5.0); Bilirubin Total 0.2 mg/dL (0.2-1.0); Magnesium 1.8 mg/dL (1.8-2.4); Potassium 3.3 mmol/L (3.5-5.1); Protein, Total 6.3 g/dL (6.4-8.2)
[2022-05-10] MEDS: MEROPENEM/VABORBACTAM 4 GM in NA CHLORIDE 0.9% 250 ML IV SCH ×3 (05:51→21:51)
--- NOTE | 2022-05-10 06:52 | RAD REPORT ---
EXAM DESCRIPTION: RAD - Chest Single View - 05/10/2022 5:34 am CLINICAL HISTORY: f/u opacitiesshortness of breath, respiratory distress COMPARISON: Portable chest May 06, CT chest May 06 TECHNIQUE: AP portable chest image was obtained 05/10/2022 5:34 am . FINDINGS: Retrocardiac left base opacification has improved. This area remains limited in evaluation on portable imaging. Overlying breast implants increased density across both lower lung [place]. Trac h tube remains in place. Upper lung [place] are clear. Heart and vasculature are normal. No measurable pleural effusion and no pneumothorax. No acute bony abnormality seen. No acute aortic findings suspe cted. IMPRESSION: Partial clearing of the left lower lobe consolidation/infiltrate. Retrocardiac left base assessment is always limited on portable imaging. If clinically warranted, a r epeat CT chest study could be performed for more sensitive assessment of the left lung base parenchym a.
[2022-05-10] MEDS: SODIUM CHLORIDE 0.9% 20 ML VIAL IV SCH ×2 (08:00→19:57)
--- NOTE | 2022-05-10 08:26 | EKG ---
Test Date: 2022-05-06 Test Time: 18:12:02 Network Security Consultant: SHERRON MEASUREMENT RESULTS: Intervals: Rate: 166 ME: 144 QRSD: 70 QT: 286 QTc: 475 [place]: P: 85 ME: 144 QRS: 95 T: 81 INTERPRETIVE STATEMENTS: Sinus tachycardia Rightward axis Cannot rule out Anterior infarct, age undetermined Abnormal ECG Compared to ECG 04/29/2022 11:04:02 Right-axis deviation now present Myocardial infarct finding now present Supraventricular tachycardia no longer present T-wave abnormality no longer present Possible ischemia no longer present Electronically Signed On 05-10-22 08:13:00 CDT by Kris Coronado
[2022-05-10] MEDS: JEVITY 1.2 CAL LIQUID 1,000 ML BOT FT SCH ×4 (09:00→21:50)
[2022-05-10] MEDS: BACLOFEN 10 MG TAB PO SCH ×3 (10:28→21:50)
[2022-05-10] MEDS: GABAPENTIN 100 MG CAP PO SCH ×3 (10:28→21:50)
[2022-05-10] MEDS: MICAFUNGIN SODIUM 100 MG in NA CHLORIDE 0.9% 100 ML IV SCH (10:29)
[2022-05-10] MEDS: COLISTIMETHATE NA 150 MG/VIAL IH SCH ×2 (10:29→19:30)
--- NOTE | 2022-05-10 10:47 | P.PN ---
Subjective Date of Service: 05/10/22 Chief Complaint: Respiratory failure Subjective pt admiteed with sepsis and JANINE today cr down to 0.37 started on tube feeding ,will dc IVF on Colistin , monitor RFT Physical exam General: open eyes, not oriented, chronically ill, thin HEENT PERRLA, moist mucose membrane neck: tracheotomy CHEST; CTAB, no wheezes or rales HEART : RRR. Normal S1,2 no murmur or rub Abd: soft, Nt, PEG tube Ext: no edema Skin : No rash A/P # JANINE 2/2 prerenal state +/- septic ATN resolved SCr on adm 2.0. She was started on abx & IV fluids. Urinalysis no pyuria Cont NS gtt same rate, avoid net neg fluid balance Cont garza MAP goal > 65 Monitor I/O, renal panel # Severe sepsis 2/2 aspiration pna Abx per primary team on Colistin monitor renal function # Hypernatremia resolved cont free water via pEG # Anoxic brain injury w/ quadriplegia s/p trach + PEG Per other services # Anemia Monitor H/H Total time spent 35 minutes including documentation, reviewing labs , placing orders and discussing with medical team Physical Examination - Vital Signs Temperature: 98.4 F Blood Pressure: 122/77 Pulse: 84 Respirations: 16 Pulse Ox (%): 100 - Studies Microbiology Data (last 24 hrs): 05/06/22 18:50 Catheterized Urine [place] Count - Final >100,000 CFU/ML. 05/06/22 18:50 Catheterized Urine - Final
[2022-05-10] MEDS: NA CHLORIDE 0.9% 1,000 ML IV SCH (11:00)
--- NOTE | 2022-05-10 11:52 | P.PN ---
Subjective Date of Service: 05/10/22 Chief Complaint: Respiratory failure Subjective: Improving (Patient is doing much better on the BiPAP having some thick secretions no evidence of active ongoing sepsis) Review of Systems is unable to be obtained Physical Examination - Vital Signs Temperature: 98.4 F Blood Pressure: 122/77 Pulse: 84 Respirations: 16 Pulse Ox (%): 100 - Physical Exam General: Unresponsive Respiratory: Clear to auscultation bilaterally, Diminished Cardiovascular: Regular rate/rhythm, Edema - Studies Microbiology Data (last 24 hrs): 05/06/22 18:50 Catheterized Urine [place] Count - Final >100,000 CFU/ML. 05/06/22 18:50 Catheterized Urine - Final Assessment And Plan - Current Problems (Diagnosis) (1) Respiratory failure Current Visit: Yes Status: Acute Plan: Doing much better on BiPAP trial of BiPAP with a trach collar use as needed BiPAP White count is back to normal seen by ID continue with present antibiotics mild hypokalemia electrolyte protocol cultures negative so far urine shows 4+ yeast afebrile hemodynamically stable trach collar alternating with BiPAP White count is down to normal Qualifiers: Chronicity: acute on chronic
[2022-05-10] MEDS: MIDAZOLAM HCL 2 MG/2 ML INJ IV PRN ×2 (14:14→19:09)
[2022-05-10] MEDS: TRAMADOL HCL 50 MG TAB FT PRN (16:40)
[2022-05-10] MEDS: RIVAROXABAN 10 MG TABLET PO SCH (16:41)
[2022-05-11] MEDS: ALBUTEROL 2.5 MG/3 ML NEB SOL NEB SCH ×3 (02:00→14:00)
[2022-05-11 05:14] LABS: Absolute Lymphocytes (CBC) 1.4 K/uL (0.7-4.9); Hematocrit 26.7 % (36.0-45.0); Lymphocytes % 23.7 % (15.3-44.8); MCV 86.6 fL (80-100); MPV 7.5 fL (7.6-11.3); RBC Red Blood Cell Count 3.09 M/uL (3.86-4.86)
[2022-05-11 05:47] LABS: Albumin 2.4 g/dL (3.4-5.0); Bilirubin Total 0.2 mg/dL (0.2-1.0); Potassium 3.8 mmol/L (3.5-5.1); Protein, Total 6.4 g/dL (6.4-8.2)
--- NOTE | 2022-05-11 05:47 | P.PN ---
Date of Service: 05/11/22 Subjective: intermittent tachycardic episodes during episodes, patient seems to be uncomfortable, unable to communicate daughter visited today, patient with notable change in expression / recognized daughter continue with copioius secretions ROS: 10 point ROS unable to be obtained Physical Exam: GEN: Awake, NAD HEENT: Normal conjunctiva, sclera anicteric CV: regular rate/rhythm with intermittent tachycardia, b/l hand edema Pulm: non-labored respirations on trach collar ABD: Soft, nontender, nondistended, gastric tube in place, no surrounding erythema Neuro: Quadriplegic, blinks eyes when asked vitals reviewed Problem List Severe Sepsis secondary to possible Aspiration pneumonia Acute respiratory failure with hypoxia History of MRSA Left lower lobe atelectasis History of anoxic Brain Injury Tracheostomy dependent Quadriplegic Acute renal failure UTI continue Vabomere - cover resistant enterobacter ID consulted - recommends 10 days total vabomere, continue cilastin with vabomere and additional 10 days after vabomere completion sputum: enterobacter UA: bacteruria Urine Cx: mixed jhonny; most likely colonization; +yeast continue micafungin per pulm recommendations; suspect systemic fungal infect ion Oxygenation improving, tolerating trach collar vitals more consistently in normal range, slight tachypnea pulm consulted continue pulm toilet - reviewed notes from [facility] hospitalization, avoid al buterol, was receiving atrovent nebs tracheostomy was replaced during previous hospitalization without complications copious upper airway secretions, suctioning as needed; will discuss further with pulmonology JANINE - likely sepsis / ATN improving slightly nephrology following Continue PEG tube feeds VTE: chronic xarelto Code: full - reviewed with daughter on 05/11 Dispo: continue ICU care, downgrade in next 1-2 days back to senior living, ~2-3 days Time Spent Managing Pts Care (In Minutes): 35
[2022-05-11] MEDS: MEROPENEM/VABORBACTAM 4 GM in NA CHLORIDE 0.9% 250 ML IV SCH ×3 (06:24→21:46)
[2022-05-11] MEDS: COLISTIMETHATE NA 150 MG/VIAL IH SCH ×2 (08:00→21:09)
[2022-05-11] MEDS: SODIUM CHLORIDE 0.9% 20 ML VIAL IV SCH ×2 (08:00→20:00)
[2022-05-11] MEDS: MICAFUNGIN SODIUM 100 MG in NA CHLORIDE 0.9% 100 ML IV SCH (09:30)
[2022-05-11] MEDS: JEVITY 1.2 CAL LIQUID 1,000 ML BOT FT SCH ×4 (09:31→21:45)
[2022-05-11] MEDS: GABAPENTIN 100 MG CAP PO SCH ×3 (09:31→21:46)
[2022-05-11] MEDS: BACLOFEN 10 MG TAB PO SCH ×3 (09:31→21:46)
[2022-05-11] MEDS: MIDAZOLAM HCL 2 MG/2 ML INJ IV PRN ×2 (11:10→22:03)
--- NOTE | 2022-05-11 12:30 | PN ---
Subjective: The patient in ICU. Heart rate is 140, being managed by the ICU team. The patient open s eyes spontaneously. No other new events since yesterday. Objective: Vital Signs: Blood pressure 124/71, temperature 97.5, heart rate 140, respiration 23. Lungs: Basal crackles. Heart: S1, S2. Regular. Abdomen: Soft, nontender. Bowel sounds present. Extremity: Trace edema. Laboratory Data: WBC 6, hemoglobin 9, platelets are 346. Chemistry shows sodium 140, potassium 3.8, chloride 106, bicarb 28, BUN 5, creatinine 0.4, glucose 105, albumin level is 2.4. Assessment And Plan: Respiratory failure, sepsis, left lower lobe pneumonia, tachycardia, prognosis guarded. Continue current treatment. Continue Levemir for 7 days and Colistin for 14 days. Monitor the patient for signs of infection with WBC and fever. NF/MODL Voice ID: [id number] Report ID: [id number]
[2022-05-11] MEDS: D5 0.45 NS 1,000 ML with POTASSIUM CL 10 MEQ IV SCH ×2 (12:56)
[2022-05-11] MEDS ORDERED: D5 0.45 NS 0 ML IV ONE (13:05)
--- NOTE | 2022-05-11 16:28 | PN ---
Date of Progress Note: 05/11/2022 Subjective: The patient was admitted with acute kidney injury secondary to prerenal, recovered after hydration. Physical Examination: Vital Signs: Blood pressure 124/90, pulse of 97. The patient had tracheostomy. Chest: Clear to auscultation. Heart: S1, S2. Regular. Abdomen: Soft, nontender. Extremity: No edema. Laboratory Data: WBC 6, H and H 9/26.7. Sodium 140, potassium 3.8, bicarb 28, BUN 5, creatinine 0.4 , calcium 9.1. Albumin 2.4. Current Medications: The patient on include meropenem, albuterol, midazolam, Jevity, Zofran, ipratro pium. Assessment And Plan: 1.Acute kidney injury secondary to prerenal, poor perfusion ATN, recovered, resolved. 2.Hypertension, controlled, optimal. Continue current medication. 3.Sepsis secondary to pneumonia. Follow up with Pulmonary. 4.Hypernatremia. Sodium stabilized. We will follow up. 5.Contraction alkalosis. Continue current treatment. We will start the patient on D5 half and we w ill follow up. DWIGHT Voice ID: [id number] Report ID: [id number]
[2022-05-11] MEDS: PANTOPRAZOLE 40 MG INJ IVP SCH (16:31)
[2022-05-11] MEDS: TRAMADOL HCL 50 MG TAB FT PRN ×2 (16:31→22:03)
[2022-05-11] MEDS: RIVAROXABAN 15 MG TABLET PO SCH (16:31)
[2022-05-12 05:44] LABS: Albumin 2.4 g/dL (3.4-5.0); Bilirubin Total 0.3 mg/dL (0.2-1.0); Magnesium 2.3 mg/dL (1.8-2.4); Potassium 3.7 mmol/L (3.5-5.1); Protein, Total 6.6 g/dL (6.4-8.2)
--- NOTE | 2022-05-12 05:55 | P.PN ---
Date of Service: 05/12/22 Subjective: Febrile last night to 100.8, during one of her episodes of diaphoresis and tachycardia Otherwise seems to be more stable Tolerating trach collar ROS: 10 point ROS unable to be obtained Physical Exam: GEN: Awake, NAD HEENT: Normal conjunctiva, sclera anicteric CV: regular rate/rhythm with intermittent tachycardia, b/l hand edema Pulm: non-labored respirations on trach collar ABD: Soft, nontender, nondistended, gastric tube in place, no surrounding erythema Neuro: Quadriplegic, blinks eyes when asked, seems to comprehend vitals reviewed Problem List Severe Sepsis secondary to possible Aspiration pneumonia Acute respiratory failure with hypoxia - pneumonia vs mucous plug Left lower lobe atelectasis History of MRSA History of anoxic Brain Injury Tracheostomy dependent Quadriplegic Acute renal failure UTI paroxysmal sympathetic hypersensitivity , suspected continue Vabomere - cover resistant enterobacter ID consulted - recommends 10 days total vabomere, continue cilastin with vabomere and additional 10 days after vabomere completion sputum: enterobacter UA: bacteruria Urine Cx: mixed jhonny; most likely colonization; +yeast continue micafungin per pulm recommendations; suspect systemic fungal infection; yeast noted in urine Oxygenation improving, tolerating trach collar vitals more consistently in normal range, with episodic tachycardia /diaphoresis, slight increase in temperature During her long hospitalization after her brain injury, she was suspected to have paroxysmal sympathetic hypersensitivity, was noted to have these episodes then was evaluated by Cardiology at that time, recommended low dose metoprolol as needed; episodes seem to resolve quickly pulm consulted continue pulm toilet - reviewed notes from [facility] hospitalization, avoid albuterol, was receiving atrovent nebs only tracheostomy was replaced during previous hospitalization without complications copious upper airway secretions, suctioning as needed; will discuss further with pulmonology JANINE - likely sepsis / ATN improved nephrology following Continue PEG tube feeds VTE: chronic xarelto Code: full - reviewed with daughter on 05/11 Dispo: can stepdown from ICU, but requires close monitoring for frequent suctioning back to [facility], ~2 days Time Spent Managing Pts Care (In Minutes): 35
[2022-05-12] MEDS: MEROPENEM/VABORBACTAM 4 GM in NA CHLORIDE 0.9% 250 ML IV SCH ×3 (06:08→21:03)
[2022-05-12 06:33] LABS: Absolute Lymphocytes (CBC) 1.6 K/uL (0.7-4.9); Hematocrit 30.6 % (36.0-45.0); Lymphocytes % 25.9 % (15.3-44.8); MCV 86.8 fL (80-100); MPV 7.5 fL (7.6-11.3); RBC Red Blood Cell Count 3.53 M/uL (3.86-4.86)
--- NOTE | 2022-05-12 06:59 | RAD REPORT ---
EXAM DESCRIPTION: [facility]hael Single View05/12/2022 6:48 am CLINICAL HISTORY: Fever COMPARISON: May 10, 2022 FINDINGS: Worsening left lower lobe atelectasis Right lung appears clear. The heart is normal size. Tracheostomy tube in place IMPRESSION: Worsening in left lower lobe atelectasis
[2022-05-12] MEDS: SODIUM CHLORIDE 0.9% 20 ML VIAL IV SCH ×2 (08:00→21:30)
[2022-05-12] MEDS: MICAFUNGIN SODIUM 100 MG in NA CHLORIDE 0.9% 100 ML IV SCH (08:29)
[2022-05-12] MEDS: D5 0.45 NS 1,000 ML with POTASSIUM CL 10 MEQ IV SCH ×2 (08:29)
[2022-05-12] MEDS: COLISTIMETHATE NA 150 MG/VIAL IH SCH ×2 (08:30→21:45)
[2022-05-12] MEDS: JEVITY 1.2 CAL LIQUID 1,000 ML BOT FT SCH ×4 (08:34→21:02)
[2022-05-12] MEDS ORDERED: POTASSIUM 25 MEQ EFFERV TAB PO ONE (09:00)
[2022-05-12] MEDS: PANTOPRAZOLE 40 MG INJ IVP SCH (09:11)
[2022-05-12] MEDS: GABAPENTIN 100 MG CAP PO SCH ×3 (09:11→21:01)
[2022-05-12] MEDS: BACLOFEN 10 MG TAB PO SCH ×3 (09:11→21:01)
--- NOTE | 2022-05-12 13:29 | PN ---
Date of Progress Note: 05/12/2022 Subjective: The patient was admitted with respiratory failure, acute kidney injury secondary to prerenal. After hydration, kidney function has been improving significantly. Physical Examination: Vital Signs: When I saw the patient; the patient on trach collar, blood pressure 105/74, pulse of 77. Chest: Clear to auscultation. Heart: S1, S2. Regular. Abdomen: Soft, nontender. Extremity: Trace edema. Neuro: The patient on trach collar. Laboratory Data: WBC 6.3, H and H 10.1/30.6. Sodium 139, potassium 3.7, bicarb 29, BUN 6, creatinine 0.4, calcium 8.9, magnesium 2.3, albumin 2.4, corrected calcium is 10.1. Current Medications: The patient on include baclofen, meropenem, cholestyramine, micafungin, Xarelto, gabapentin, breathing treatment, tramadol, KCl. Assessment And Plan: 1. Acute kidney injury secondary to prerenal, recovered, resolved. 2. Hypokalemia, status post supplement. Continue current supplement. 3. Hypernatremia secondary to dehydration. Continued to improve. Sodium is trending down. We will continue IV fluid. 4. Contraction alkalosis. Chloride continued to trend down. Continue half- normal with hydration. 5. Respiratory failure. Follow up with primary. Continue vent support. 6. Pneumonia. Continue current antibiotic. We will follow up with primary. Time spent examining the patient [id number], reviewing the data lab and radiology, placing orders, discussing with the patient, explaining risks, benefits, alternatives, discussing with the staff member including nursing discussing with the hospitalist more than 35 minutes. DWIGHT Voice ID: [id number] Report ID: [id number] ANA
--- NOTE | 2022-05-12 14:44 | PN ---
Subjective: The patient lying in bed. No new acute event. Chart reviewed. More alert and awake. Objective: Vital Signs: Temperature 98, pulse 77, respiration 15, blood pressure 105/74. Lungs: Basal crackles. Heart: S1, S2. Regular. Abdomen: Soft, nontender. Bowel sounds present. Extremity: No edema. Laboratory Data: Reviewed. Assessment And Plan: The patient is currently on Levemir and colistin and micafungin. Continue supp ortive care and respiratory hygiene. Monitor signs for infection with WBC and fever trends. NF/MODL Voice ID: [id number] Report ID: [id number]
[2022-05-12] MEDS: RIVAROXABAN 15 MG TABLET PO SCH (18:28)
[2022-05-13] MEDS: D5 0.45 NS 1,000 ML with POTASSIUM CL 10 MEQ IV SCH ×2 (03:39)
[2022-05-13 05:41] LABS: Absolute Lymphocytes (CBC) 1.9 K/uL (0.7-4.9); Hematocrit 32.3 % (36.0-45.0); Lymphocytes % 29.3 % (15.3-44.8); MCV 85.5 fL (80-100); MPV 6.9 fL (7.6-11.3); RBC Red Blood Cell Count 3.77 M/uL (3.86-4.86)
[2022-05-13 05:52] LABS: Albumin 2.5 g/dL (3.4-5.0); Bilirubin Total 0.3 mg/dL (0.2-1.0); Magnesium 2.2 mg/dL (1.8-2.4); Potassium 4.5 mmol/L (3.5-5.1); Protein, Total 6.8 g/dL (6.4-8.2)
--- NOTE | 2022-05-13 05:53 | P.PN ---
Date of Service: 05/13/22 Subjective: tolerating trach collar intermittently with crying episodes patient not wanting to communicate, does understand ROS: 10 point ROS unable to be obtained Physical Exam: GEN: Awake, NAD HEENT: Normal conjunctiva, sclera anicteric CV: regular rate/rhythm with intermittent tachycardia, mild b/l hand edema Pulm: non-labored respirations on trach collar ABD: Soft, nontender, nondistended, gastric tube in place, no surrounding erythema Neuro: Quadriplegic, blinks eyes when asked, comprehends, selectively answers questions vitals reviewed Problem List Severe Sepsis secondary to possible Aspiration pneumonia Acute respiratory failure with hypoxia - pneumonia vs mucous plug Left lower lobe atelectasis History of MRSA History of anoxic Brain Injury Tracheostomy dependent Quadriplegic Acute renal failure UTI paroxysmal sympathetic hypersensitivity , suspected continue vabomere - cover resistant enterobacter ID consulted - recommends 10 days total vabomere, continue cilastin with vabomere and additional 10 days after vabomere completion sputum: enterobacter UA: bacteruria Urine Cx: mixed jhonny; most likely colonization; +yeast continue micafungin per pulm recommendations; suspect systemic fungal infection; yeast noted in urine Oxygenation improving, tolerating trach collar paroxysmal sympathetic hypersensitivity vitals more consistently in normal range, with episodic tachycardia /diaphor esis, slight increase in temperature review of EMR from [facility] - patient with these episodes with hyperthermia / tachycardia, tachypnea, diaphoresis. Difficult to ascertain if episode vs sepsis cultures from trach/sputum have grown multiple organisms - suspect colonization During her long hospitalization after her brain injury, she was suspected to have paroxysmal sympathetic hypersensitivity, was noted to have these episodes then was evaluated by Cardiology at that time, recommended low dose metoprolol as needed; episodes seem to resolve quickly pulm consulted continue pulm toilet - reviewed notes from [facility] hospitalization, avoid albuterol, was receiving atrovent nebs only tracheostomy was replaced during previous hospitalization without complications copious upper airway secretions, suctioning as needed neuro consulted - poor prognosis JANINE - likely sepsis / ATN improved nephrology following Continue PEG tube feeds VTE: chronic xarelto Code: full - reviewed with daughter on 05/11 Dispo: can stepdown from ICU, but requires close monitoring for frequent [facility]ing back to [facility], ~1-2 days patient high risk bounce back, will have a paroxysm sympathethic hypersensitivi ty episode and be sent back to hospital for sepsis. Neuro spoke with daughter; discussed poor prognosis, continued increased risk for infection, poor quality of life Time Spent Managing Pts Care (In Minutes): 35
[2022-05-13] MEDS: MEROPENEM/VABORBACTAM 4 GM in NA CHLORIDE 0.9% 250 ML IV SCH ×3 (06:11→21:19)
[2022-05-13] MEDS: SODIUM CHLORIDE 0.9% 20 ML VIAL IV SCH ×2 (08:00→20:00)
[2022-05-13] MEDS: COLISTIMETHATE NA 150 MG/VIAL IH SCH ×2 (09:00→20:15)
[2022-05-13] MEDS: PANTOPRAZOLE 40 MG INJ IVP SCH (09:26)
[2022-05-13] MEDS: MICAFUNGIN SODIUM 100 MG in NA CHLORIDE 0.9% 100 ML IV SCH (09:27)
[2022-05-13] MEDS: GABAPENTIN 100 MG CAP PO SCH ×3 (09:29→20:24)
[2022-05-13] MEDS: BACLOFEN 10 MG TAB PO SCH ×3 (09:33→20:24)
[2022-05-13] MEDS: JEVITY 1.2 CAL LIQUID 1,000 ML BOT FT SCH ×4 (09:33→20:25)
[2022-05-13] MEDS: TRAMADOL HCL 50 MG TAB FT PRN ×2 (09:34→18:14)
--- NOTE | 2022-05-13 10:22 | P.PN ---
Subjective Date of Service: 05/13/22 Chief Complaint: Respiratory failure Subjective: No new changes, Other (Remains bedridden) Physical Examination - Vital Signs Temperature: 97.6 F Blood Pressure: 116/80 Pulse: 90 Respirations: 16 Pulse Ox (%): 100 - Physical Exam General: Other (Appears chronically ill) HEENT: Atraumatic, Normocephalic Neck: Supple, Other (+trach) Respiratory: Other (Symmetric chest expansion) Cardiovascular: No rubs, No murmurs Gastrointestinal: Soft and benign, Other (+PEG) Musculoskeletal: No clubbing Integumentary: No warmth Neurological: Other (No new focal deficits) Urinary: Other (No bladder distention) External genitalia: Deferred Rectal: Deferred Assessment And Plan - Plan # JANINE 2/2 prerenal state +/- septic ATN Resolved Keep MAP > 65 PEG feeding as below Monitor I/O, renal panel # Severe sepsis 2/2 likely aspiration pna Abx per primary team & ID +Mucus plugging. Pulmo toilet. # Hypernatremia Resolved Wt 53.1 kgs Total body water 26.5L Cont PEG tube feeds/water flushes same rate # Anoxic brain injury w/ quadriplegia s/p trach + PEG Per other services # ? Paroxysmal sympathetic hyperactivity Per other services # Anemia Monitor H/H
[2022-05-13] MEDS: RIVAROXABAN 15 MG TABLET PO SCH (18:14)
--- NOTE | 2022-05-13 19:42 | CON ---
Reason For Consultation: Consultation called because the patient has autonomic type dysfunction. History Of Present Illness: Ms. 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 She has had a very extensive stay at multiple long-term care facilities and has PEG tube and tracheostomy. The patient apparently has episodes of very elevated pulse rate and changes in bl ood pressure, possibly secondary to severe brainstem dysfunction related to her strokes. She is curr ently in the ICU at [facility] breathing on her own with a tracheostomy. She is admitted with sepsis from aspiration pneumonia and is on antibiotics per Primary Team. Past Medical History: Prior drug use that led to strokes, dyslipidemia, significant anoxic brain inj ury, and sympathetic hyperactivity. Past Surgical History: Hysterectomy, tracheostomy, G-tube placement. Medications: Albuterol nebulizer every 6 hours, aspirin 81 mg daily, atorvastatin 20 mg daily, baclo fen 5 mg 3 times daily, Lovenox 60 mg every 12 hours, gabapentin 100 mg 3 times daily, MiraLAX 17 g d aily, clonidine 0.1 mg daily, Atrovent 0.5 mg nebulizer as needed, Jevity 1.2 Danie 4 times daily, Zolo ft 100 mg at bedtime, doxycycline 100 mg twice daily, fluconazole 200 mg daily, Xarelto 10 mg daily, and Bactrim suspension 20 mL per feeding tube twice daily. Family History: Noncontributory. Social History: The patient has a daughter who is 20 years old and is the next of kin. appa rently overdosed. She is unable to swallow or use any drugs or alcohol. Review of Systems: Unable to obtain as the patient is nonverbal. Physical Examination: Vital Signs: Blood pressure 116/80, pulse 90, respiratory rate 16, temperature 97.6, oxygen saturati on 100% on trach collar 28% FiO2. Weight 136 pounds, height 5 feet 2 inches. General: Ms. Villalobos is lying in bed. She has extension contractures in the upper and lower extre mities and unable to move them voluntarily. HEENT: She is normocephalic. She has a trach collar in place and PEG tube in place. Extremities: No significant edema in the extremities. Neurological: She is able to blink to command and move her eyes. Otherwise, no verbalization. Cran ial nerves: Facial movement, very minimal. There is wrinkling of the forehead and movement of the ey es as noted. Slight mouth movement noted. She does have some shoulder shrug, but very subtle. Othe rwise, hypertonic in all extremities. Hyperreflexic, unable to ambulate, unable to assess any form o f coordination. Laboratory Studies: Complete blood count with differential shows white blood cell count 6.2, hemoglo bin 10. INR 1. Chemistries show procalcitonin is down to 0.5 from a high of 1.05. Liver function s tudies with slightly elevated AST, otherwise normal. Lactic acid was 2.5 on the 12th. Assessment: Ms. Villalobos is a 46-year-old patient with multiple strokes involving posterior circula tion, in particular brainstem and cerebellum that left her quadriplegic. She has a trach and PEG tub e. She has multiple comorbid conditions as noted. She has autonomic dysfunction that is paroxysmal, likely secondary to damage to autonomic areas in the brainstem. The patient's code status is full c ode. Discussed this with their daughter. The patient has very poor prognosis for any significant re covery. She is at high risk of continuing aspiration and more pneumonia and then sepsis. The patien t's daughter lives 2 hours away and she wants her to be closer to her and the family may make decisio ns at that point about code status. My advice to her was that the patient be put on hospice and daughter would discuss that with the rest of her family. This was discussed with the hospitalist as well. HOANG/MICHAELLE Voice ID: [id number] Report ID: [id number]
[2022-05-14] MEDS: D5 0.45 NS 1,000 ML with POTASSIUM CL 10 MEQ IV SCH ×2 (02:27)
[2022-05-14] MEDS: TRAMADOL HCL 50 MG TAB FT PRN ×2 (02:28→20:28)
[2022-05-14] MEDS: MEROPENEM/VABORBACTAM 4 GM in NA CHLORIDE 0.9% 250 ML IV SCH ×3 (05:38→23:40)
--- NOTE | 2022-05-14 05:57 | P.PN ---
Date of Service: 05/14/22 Subjective: No acute events overnight Oral/tracheal secretions have decreased Afebrile ROS: 10 point ROS unable to be obtained Physical Exam: GEN: Awake, NAD HEENT: Normal conjunctiva, sclera anicteric CV: regular rate/rhythm, no edema Pulm: non-labored respirations on trach collar ABD: Soft, nontender, nondistended, gastric tube in place, no surrounding erythema Neuro: Quadriplegic, blinks eyes when asked, comprehends, selectively answers questions vitals reviewed Problem List Severe Sepsis secondary to possible Aspiration pneumonia Acute respiratory failure with hypoxia - pneumonia vs mucous plug Left lower lobe atelectasis History of MRSA History of anoxic Brain Injury Tracheostomy dependent Quadriplegic Acute renal failure UTI paroxysmal sympathetic hypersensitivity , suspected continue vabomere - cover resistant enterobacter ID consulted - recommends 10 days total vabomere (day10= 05/16), continue cilastin with vabomere and additional 10 days after vabomere completion sputum: enterobacter UA: bacteruria, Urine Cx: mixed jhonny; most likely colonization; +yeast continue micafungin per pulm recommendations; suspect systemic fungal infection; yeast noted in urine Oxygenation improving, tolerating trach collar Oral/tracheal secretions have decreased; requiring less frequent suctioning paroxysmal sympathetic hypersensitivity vitals more consistently in normal range, with episodic tachycardia /diaphoresis, slight increase in temperature review of EMR from [facility] - patient with these episodes with hyperthermia / tachycardia, tachypnea, diaphoresis. Difficult to ascertain if episode vs sepsis cultures from trach/sputum have grown multiple organisms - suspect colonization During her long hospitalization after her brain injury, she was suspected to have paroxysmal sympathetic hypersensitivity, was noted to have these episodes then was evaluated by Cardiology at that time, recommended low dose metoprolol as needed; episodes seem to resolve quickly continue pulm toilet reviewed notes from [facility] hospitalization: avoid albuterol, was receiving atrovent nebs only tracheostomy was replaced during previous hospitalization without complications neuro consulted - poor prognosis JANINE - likely sepsis / ATN improved nephrology following Continue PEG tube feeds VTE: chronic xarelto Code: full - reviewed with daughter on 05/11 Dispo: back to longterm, ~2 days patient high risk bounce back, will have a paroxysm sympathethic hypersensitivity episode and be sent back to hospital for sepsis. Neuro spoke with daughter; discussed poor prognosis, continued increased risk for infection, poor quality of life Time Spent Managing Pts Care (In Minutes): 35
--- NOTE | 2022-05-14 07:54 | RAD REPORT ---
EXAM DESCRIPTION: RAD - Chest Single View - 05/14/2022 6:54 am CLINICAL HISTORY: f/u atelectasis, trach collar, mucous plugging COMPARISON: Portable chest May 12 and May 10, CT chest May 06 TECHNIQUE: AP portable chest image was obtained 05/14/2022 6:54 am . FINDINGS: Lung volumes are similar to comparison. Retrocardiac volume loss changes are still present . Bilateral lung base opacification has not changed. Overlying breast implants do increase density ov er each lower lung field. Overall, no new or progressive lung parenchymal process is felt to be prese nt. Trach tube remains in place. Heart and vasculature are normal. No measurable pleural effusion and no pneumothorax. No acute bony abnormality seen. No acute aortic findings suspected. IMPRESSION: Stable portable chest examination as detailed.
[2022-05-14] MEDS: SODIUM CHLORIDE 0.9% 20 ML VIAL IV SCH ×2 (08:00→20:00)
[2022-05-14] MEDS: PANTOPRAZOLE 40 MG INJ IVP SCH (08:03)
[2022-05-14] MEDS: GABAPENTIN 100 MG CAP PO SCH ×3 (08:04→20:28)
[2022-05-14] MEDS: cloNIDine HCL 0.1 MG TAB PO SCH ×3 (08:04→20:27)
[2022-05-14] MEDS: JEVITY 1.2 CAL LIQUID 1,000 ML BOT FT SCH ×4 (08:04→20:27)
[2022-05-14] MEDS: COLISTIMETHATE NA 150 MG/VIAL IH SCH ×2 (08:18→20:25)
[2022-05-14] MEDS: BACLOFEN 10 MG TAB PO SCH ×3 (09:16→20:28)
[2022-05-14] MEDS: MICAFUNGIN SODIUM 100 MG in NA CHLORIDE 0.9% 100 ML IV SCH (09:16)
[2022-05-14] MEDS: RIVAROXABAN 15 MG TABLET PO SCH (16:49)
[2022-05-14] MEDS: SERTRALINE HCL 100 MG TAB PO SCH (20:28)
--- NOTE | 2022-05-15 00:13 | PN ---
Date of Progress Note: 05/14/2022 Chief Complaint: Acute kidney injury. Subjective: Patient remains in ICU. She is hemodynamically stable. She has nonoliguric urine outpu t. She developed acute kidney injury secondary to severe prerenal azotemia associated with ATN secon daxa to sepsis. Review of Systems: Unobtainable. Objective: Respiratory: Normal symmetric chest expansion. Normal respiratory effort. Gastrointestinal: Abdomen soft, benign. PEG tube present. Musculoskeletal: No clubbing, no cyanosis. Neck: Trach present. Impression And Plan: 1.Acute kidney injury secondary to prerenal state complicated by acute tubular necrosis. Renal func tion has improved. Continue to monitor blood pressure. Avoid nephrotoxic medication. 2.Severe sepsis, likely secondary to aspiration pneumonia. Antibiotics per primary team. The patie nt is on pulmonary toilet. 3.Hypernatremia, resolved. Patient received IV fluids to control hypernatremia. 4.Anoxic brain injury with quadriplegia, status post trach and PEG. Further recommendation from Vincent rology and primary team. 5.Anemia. Monitor H and H and plan transfusion accordingly. EB/MODL Voice ID: [id number] Report ID: [id number]
[2022-05-15] MEDS: D5 0.45 NS 1,000 ML with POTASSIUM CL 10 MEQ IV SCH ×2 (00:15)
--- NOTE | 2022-05-15 05:51 | P.PN ---
Date of Service: 05/15/22 Subjective: No acute events overnight Seems to be more stable awake/alert slightly more secretions at night vs day ROS: 10 point ROS unable to be obtained Physical Exam: GEN: Awake, NAD HEENT: Normal conjunctiva, sclera anicteric CV: regular rate/rhythm, no edema Pulm: non-labored respirations on trach collar ABD: Soft, nontender, nondistended, gastric tube in place, no surrounding erythema Neuro: Quadriplegic, blinks eyes when asked, comprehends, selectively answers questions vitals reviewed Problem List Severe Sepsis secondary to possible Aspiration pneumonia Acute respiratory failure with hypoxia - pneumonia vs mucous plug Left lower lobe atelectasis History of MRSA History of anoxic Brain Injury Tracheostomy dependent Quadriplegic Acute renal failure UTI paroxysmal sympathetic hypersensitivity , suspected continue vabomere - cover resistant enterobacter ID consulted - recommends 10 days total vabomere (day 10= 05/16), continue cilastin with vabomere and additional 10 days after vabomere completion sputum: enterobacter UA: bacteruria, Urine Cx: mixed jhonny; most likely colonization; +yeast continue micafungin per pulm recommendations; suspect systemic fungal infection; yeast noted in urine Oxygenation improving, tolerating trach collar Oral/tracheal secretions have decreased; requiring less frequent suctioning paroxysmal sympathetic hypersensitivity vitals more consistently in normal range, with episodic tachycardia /diaphoresis, slight increase in temperature review of EMR from [facility] - patient with these episodes with hyperthermia / tachycardia, tachypnea, diaphoresis. Difficult to ascertain if episode vs sepsis cultures from trach/sputum have grown multiple organisms - suspect colonization During her long hospitalization after her brain injury, she was suspected to have paroxysmal sympathetic hypersensitivity, was noted to have these episodes then was evaluated by Cardiology at that time, recommended low dose metoprolol as needed; episodes seem to resolve quickly continue pulm toilet reviewed notes from [facility] hospitalization: avoid albuterol, was receiving atrovent nebs only tracheostomy was replaced during previous hospitalization without complications neuro consulted - poor prognosis JANINE - likely sepsis / ATN improved nephrology following Continue PEG tube feeds VTE: chronic xarelto Code: full - reviewed with daughter on 05/11 Dispo: back to long-term, ~1-2 days patient high risk bounce back, will have a paroxysm sympathethic hypersensitivity episode and be sent back to hospital for sepsis. Neuro spoke with daughter; discussed poor prognosis, continued increased risk for infection, poor quality of life Time Spent Managing Pts Care (In Minutes): 35
[2022-05-15] MEDS: MEROPENEM/VABORBACTAM 4 GM in NA CHLORIDE 0.9% 250 ML IV SCH ×3 (06:23→22:28)
[2022-05-15] MEDS: SODIUM CHLORIDE 0.9% 20 ML VIAL IV SCH (08:00)
[2022-05-15] MEDS: JEVITY 1.2 CAL LIQUID 1,000 ML BOT FT SCH ×4 (08:00→21:03)
[2022-05-15] MEDS: COLISTIMETHATE NA 150 MG/VIAL IH SCH ×2 (08:12→19:20)
[2022-05-15] MEDS: GABAPENTIN 100 MG CAP PO SCH ×3 (09:00→21:03)
[2022-05-15] MEDS: BACLOFEN 10 MG TAB PO SCH ×3 (09:00→21:03)
[2022-05-15] MEDS: cloNIDine HCL 0.1 MG TAB PO SCH ×3 (09:00→21:07)
[2022-05-15] MEDS: PANTOPRAZOLE 40 MG INJ IVP SCH (09:00)
[2022-05-15] MEDS: MICAFUNGIN SODIUM 100 MG in NA CHLORIDE 0.9% 100 ML IV SCH (09:01)
[2022-05-15] MEDS: RIVAROXABAN 15 MG TABLET PO SCH (17:04)
[2022-05-15] MEDS: SERTRALINE HCL 100 MG TAB PO SCH (21:03)
[2022-05-15] MEDS: TRAMADOL HCL 50 MG TAB FT PRN (21:06)
--- NOTE | 2022-05-15 22:58 | PN ---
Date of Progress Note: 05/15/2022 Chief Complaint: Acute kidney injury. Subjective: The patient remains in ICU. She has severe encephalopathy. She is hemodynamically stable. The patient developed acute kidney injury secondary to severe prerenal azotemia associated with nonoliguric ATN in the setting of severe sepsis. Review of Systems: Unobtainable. Physical Examination: Lungs: Normal chest expansion. Gastrointestinal: Abdomen soft, benign. PEG tube present. Musculoskeletal: No clubbing. No cyanosis. Neck: Trach present. Impression And Plan: 1. Acute kidney injury secondary to prerenal state, complicated by acute tubular necrosis. Renal function has improved to baseline. Continue to monitor blood pressure. Avoid nephrotoxic medications. 2. Severe sepsis likely secondary to aspiration pneumonia. Antibiotics per Primary Team. Continue pulmonary toilet. 3. Hypernatremia, resolved. The patient received IV fluids to control hypernatremia. 4. Anoxic brain injury with quadriplegia, status post trach and PEG. Further recommendation per Primary Team and Neurology. EB/MODL Voice ID: [id number] Report ID: [id number] MTDJuanita
[2022-05-16] MEDS: MIDAZOLAM HCL 2 MG/2 ML INJ IV PRN (00:26)
[2022-05-16 05:08] LABS: Absolute Lymphocytes (CBC) 2.2 K/uL (0.7-4.9); Hematocrit 32.2 % (36.0-45.0); MPV 6.8 fL (7.6-11.3); RBC Red Blood Cell Count 3.83 M/uL (3.86-4.86)
[2022-05-16 05:31] LABS: Magnesium 2.4 mg/dL (1.8-2.4); Potassium 4.3 mmol/L (3.5-5.1)
--- NOTE | 2022-05-16 06:00 | P.PN ---
Date of Service: 05/16/22 Subjective: stable improving ROS: 10 point ROS unable to be obtained Physical Exam: GEN: Awake, NAD HEENT: Normal conjunctiva, sclera anicteric CV: regular rate/rhythm, no edema Pulm: non-labored respirations on trach collar ABD: Soft, nontender, nondistended, gastric tube in place, no surrounding erythema Neuro: Quadriplegic, blinks eyes when asked, comprehends vitals reviewed Problem List Severe Sepsis secondary to possible Aspiration pneumonia, resolved Acute respiratory failure with hypoxia - pneumonia vs mucous plug Left lower lobe atelectasis History of MRSA History of anoxic Brain Injury Tracheostomy dependent Quadriplegic Acute renal failure UTI paroxysmal sympathetic hypersensitivity , suspected sepsis vabomere - completed 10-11 days, completed: 05/16. continue coly-mycin 10 days after vabomere completion sputum: enterobacter UA: bacteruria, Urine Cx: mixed jhonny; most likely colonization; +yeast continue micafungin per pulm recommendations; suspect systemic fungal infection; yeast noted in urine Oxygenation improving, tolerating trach collar Oral/tracheal secretions have decreased; requiring less frequent suctioning paroxysmal sympathetic hypersensitivity vitals more consistently in normal range, with episodic tachycardia /diaphoresis, slight increase in temperature review of EMR from [facility] - patient with these episodes with hyperthermia / tachycardia, tachypnea, diaphoresis. Difficult to ascertain if episode vs sepsis cultures from trach/sputum have grown multiple organisms - suspect colonization During her long hospitalization after her brain injury, she was suspected to have paroxysmal sympathetic hypersensitivity, was noted to have these episodes then was evaluated by Cardiology at that time, recommended low dose metoprolol as needed; episodes seem to resolve quickly continue pulm toilet reviewed notes from [facility] hospitalization: avoid albuterol, was receiving atrovent nebs only tracheostomy was replaced during previous hospitalization without complicat ions neuro consulted - poor prognosis JANINE - sepsis / ATN improved nephrology following Continue PEG tube feeds VTE: chronic xarelto Code: full - reviewed with daughter on 05/11 Dispo: back to [facility], ~1-2 days patient high risk bounce back, will have a paroxysmal sympathetic hypersensitivity episode and be sent back to hospital for sepsis. Neuro spoke with daughter; discussed poor prognosis, continued increased risk for infection, poor quality of life Time Spent Managing Pts Care (In Minutes): 35
[2022-05-16] MEDS: MEROPENEM/VABORBACTAM 4 GM in NA CHLORIDE 0.9% 250 ML IV SCH ×3 (06:20→22:02)
[2022-05-16] MEDS: COLISTIMETHATE NA 150 MG/VIAL IH SCH ×2 (08:35→20:20)
[2022-05-16] MEDS: cloNIDine HCL 0.1 MG TAB PO SCH ×3 (09:00→21:00)
[2022-05-16] MEDS: PANTOPRAZOLE 40 MG INJ IVP SCH (09:33)
[2022-05-16] MEDS: GABAPENTIN 100 MG CAP PO SCH ×3 (09:34→20:07)
[2022-05-16] MEDS: BACLOFEN 10 MG TAB PO SCH ×3 (09:34→20:07)
[2022-05-16] MEDS: MICAFUNGIN SODIUM 100 MG in NA CHLORIDE 0.9% 100 ML IV SCH (09:35)
[2022-05-16] MEDS: JEVITY 1.2 CAL LIQUID 1,000 ML BOT FT SCH ×4 (09:35→20:07)
--- NOTE | 2022-05-16 16:05 | PN ---
Subjective: The patient is lying in bed. No new acute event. Chart reviewed. Continues to stay on Ventimask. Objective: Vital Signs: Reviewed. Lungs: Basal crackles. Heart: S1, S2. Regular. Abdomen: Soft, nontender. Extremities: No edema. Laboratory Data: Shows WBC 6.2, hemoglobin 10.9, platelets 412. Medications: The patient is currently on colistin and Levemir, which should be ending today. Assessment And Plan: Respiratory failure and sepsis, improving. Continue supportive care. Continue colistin inhalation for 10 more days after finishing Levemir today. We will follow the patient douglas joe. NF/MODL Voice ID: [id number] Report ID: [id number]
[2022-05-16] MEDS: RIVAROXABAN 15 MG TABLET PO SCH (17:11)
[2022-05-16] MEDS: SERTRALINE HCL 100 MG TAB PO SCH (20:07)
--- NOTE | 2022-05-17 00:55 | PN ---
Date of Progress Note: 05/16/2022 Chief Complaint: Acute kidney injury. History Of Present Illness: Patient remains in ICU. She has severe encephalopathy, she is hemodynam ically stable. She cannot provide review of systems. She developed acute kidney injury secondary to severe prerenal azotemia associated with nonoliguric ATN in setting of hypotension and sepsis. Review of Systems: Unobtainable. Physical Examination: Lungs: Clear to auscultation bilaterally. Heart: S1, S2. Abdomen: Soft. Extremities: Slight edema in both ankles. Impression And Plan: 1.Acute kidney injury secondary to prerenal state complicated by acute tubular necrosis. Continue t o monitor renal function. Avoid nephrotoxic medication. 2.Severe sepsis, aspiration pneumonia. Continue antibiotics. Dose adjusted to renal function. 3.Hypernatremia, resolved. Patient completed IV fluids to control hypernatremia. 4.Anoxic brain injury with quadriplegia, status post trach and PEG. Further recommendation from [facility] and Neurology. EB/MODL Voice ID: [id number] Report ID: [id number]
[2022-05-17] MEDS: MEROPENEM/VABORBACTAM 4 GM in NA CHLORIDE 0.9% 250 ML IV SCH (05:43)
[2022-05-17] MEDS: SODIUM CHLORIDE 0.9% 20 ML VIAL IV SCH ×2 (08:00→20:00)
[2022-05-17] MEDS: COLISTIMETHATE NA 150 MG/VIAL IH SCH ×2 (08:00→21:00)
[2022-05-17] MEDS: GABAPENTIN 100 MG CAP PO SCH ×3 (08:28→21:17)
[2022-05-17] MEDS: PANTOPRAZOLE 40 MG INJ IVP SCH (08:28)
[2022-05-17] MEDS: cloNIDine HCL 0.1 MG TAB PO SCH ×3 (08:28→21:00)
[2022-05-17] MEDS: JEVITY 1.2 CAL LIQUID 1,000 ML BOT FT SCH ×4 (08:29→21:17)
[2022-05-17] MEDS: BACLOFEN 10 MG TAB PO SCH ×3 (08:30→21:17)
[2022-05-17] MEDS: MICAFUNGIN SODIUM 100 MG in NA CHLORIDE 0.9% 100 ML IV SCH (10:02)
--- NOTE | 2022-05-17 14:02 | P.PN ---
Subjective Date of Service: 05/17/22 Chief Complaint: Respiratory failure Patient cannot give any subjective complaint. No changes from yesterday. Patient appears comfortable. Nursing staff report tracheal suctioning was done only twice over the past 24 hours. Tracheal secretions appear to be clear. Physical Examination - Vital Signs Temperature: 97.0 F Blood Pressure: 99/65 Pulse: 98 Respirations: 17 Pulse Ox (%): 94 Assessment And Plan - Plan Physical exam GEN: Awake. HEENT:sclera anicteric. Neck: Trach-collar CV: Tachycardia, regular rhythm. Pulm: non-labored respirations on trach -collar, upper airway transmitted sounds. ABD: Soft, nontender, nondistended, gastric tube in place, no surrounding erythema Neuro: Quadriplegic. Problem List severe sepsis. Aspiration pneumonia History of MRSA Acute respiratory failure with hypoxia Left lower lobe atelectasis History of anoxic Brain Injury Tracheostomy dependent Quadriplegic Acute renal failure UTI Plan: Tracheostomy replaced during previous hospitalization. Currently stable on oxygen by trach collar. Antibiotics changed from Vabomere to colistimethate. Tracheal secretions significantly improved. Off anticholinergics Tracheal suctioning as needed. Continue PEG tube feeding. Infectious disease and pulmonary are following. Sputum culture is growing Enterobacter. UA suggest UTI, urine culture is growing mixed organisms. I highly suspect these bacterial growth are colonizat ion. Off Diflucan. JANINE resolved. Constipation prophylaxis. Social service consulted to assist with disposition. Patient much clinically improved. May need to disposition to SNF.
--- NOTE | 2022-05-17 16:54 | PN ---
Date of Progress Note: 05/17/2022 Subjective: The patient was admitted with acute kidney injury, prerenal. After hydration, kidney function has been improved. The patient is still on tracheostomy. Physical Examination: Vital Signs: Blood pressure 99/65, pulse of 98, afebrile. Chest: Clear to auscultation. Heart: S1, S2. Regular. Abdomen: Soft, nontender. Extremity: No edema. The patient is on trach. Laboratory Data: H and H 10.9/32.2. Sodium 138, potassium 4.3, bicarb 29, BUN 12, creatinine 0.5, calcium 9.4, magnesium 2.4. Current Medications: The patient on include; 1. Baclofen. 2. Xarelto. 3. Clonidine 0.1 t.i.d. 4. Zoloft. 5. Midazolam. 6. Pantoprazole. 7. Tramadol. Assessment And Plan: 1. Acute kidney injury secondary to prerenal, recovered, resolved. 2. Hypokalemia, status post supplement, resolved. 3. Hypernatremia secondary to depletional/dehydration, has been recovered, resolved. 4. Contraction alkalosis, status post hydration, resolved. 5. Respiratory failure. Continue to follow up with Pulmonary. 6. Pneumonia, status post treatment. Time spent examining the patient [id number], reviewing the data lab and radiology, placing orders, discussing with the patient, explaining risks, benefits, alternatives, discussing with the staff member including nursing discussing with the hospitalist more than 35 minutes. DWIGHT Voice ID: [id number] Report ID: [id number] ANA
[2022-05-17] MEDS: RIVAROXABAN 15 MG TABLET PO SCH (17:00)
[2022-05-17] MEDS: SERTRALINE HCL 100 MG TAB PO SCH (21:17)
[2022-05-18] MEDS: SODIUM CHLORIDE 0.9% 20 ML VIAL IV SCH ×2 (08:00→20:00)
[2022-05-18] MEDS: COLISTIMETHATE NA 150 MG/VIAL IH SCH ×2 (08:00→20:35)
[2022-05-18] MEDS: MICAFUNGIN SODIUM 100 MG in NA CHLORIDE 0.9% 100 ML IV SCH (09:13)
[2022-05-18] MEDS: BACLOFEN 10 MG TAB PO SCH ×3 (09:13→21:08)
[2022-05-18] MEDS: cloNIDine HCL 0.1 MG TAB PO SCH ×3 (09:13→21:00)
[2022-05-18] MEDS: GABAPENTIN 100 MG CAP PO SCH ×3 (09:13→21:08)
[2022-05-18] MEDS: JEVITY 1.2 CAL LIQUID 1,000 ML BOT FT SCH ×4 (09:14→21:09)
[2022-05-18] MEDS: PANTOPRAZOLE 40 MG INJ IVP SCH (09:14)
--- NOTE | 2022-05-18 11:40 | PN ---
Date of Progress Note: 05/18/2022 Subjective: The patient was admitted with acute kidney injury and hyponatremia. Acute kidney injury was prerenal, treated, recovered. Physical Examination: Vital Signs: When I saw the patient; blood pressure 113/74, pulse of 88. Chest: Clear to auscultation. Heart: S1, S2. Regular. Abdomen: Soft, nontender. Extremity: No edema. The patient on trach. Neuro: The patient opens eyes spontaneously. Laboratory Data: WBC 6.2, H and H 10.9/32.2. Sodium 138, potassium 4.3, bicarb 29, BUN 12, creatini ne 0.5, calcium 9.4, magnesium 2.4. Current Medications: The patient on include; 1.Baclofen. 2.Micafungin. 3.Clonidine 0.1 t.i.d. 4.Xarelto. 5.Gabapentin. 6.Zoloft. 7.Jevity. 8.Pantoprazole. Assessment And Plan: 1.Acute kidney injury secondary to prerenal, ATN, recovered, resolved. 2.Hypokalemia, status post supplement, resolved. 3.Hyponatremia, depletional, resolved. 4.Contraction alkalosis, stabilized. 5.Respiratory failure secondary to pneumonia. We will follow up with Pulmonary. Continue current tr keena. DARLENE/MICHAELLE Voice ID: [id number] Report ID: [id number]
--- NOTE | 2022-05-18 12:05 | P.PN ---
Subjective Date of Service: 05/18/22 Chief Complaint: Respiratory failure Patient cannot give any subjective complaint. No changes from yesterday. Patient appears comfortable. Minimal tracheal secretions. Physical Examination - Vital Signs Temperature: 97.2 F Blood Pressure: 113/74 Pulse: 86 Respirations: 17 Pulse Ox (%): 96 Assessment And Plan - Plan Physical exam GEN: Awake. HEENT:sclera anicteric. Neck: Trach-collar CV: Tachycardia, regular rhythm. Pulm: non-labored respirations on trach -collar, upper airway transmitted sounds. ABD: Soft, nontender, nondistended, gastric tube in place, no surrounding erythema Neuro: Quadriplegic. Problem List severe sepsis. Aspiration pneumonia History of MRSA Acute respiratory failure with hypoxia Left lower lobe atelectasis History of anoxic Brain Injury Tracheostomy dependent Quadriplegic Acute renal failure UTI Plan: Tracheostomy replaced during previous hospitalization. Currently stable on oxygen by trach collar. Vabomere discontinued. Colistimethate day 13. Tracheal secretions significantly improved. Off anticholinergics Tracheal suctioning as needed. Continue PEG tube feeding. Infectious disease and pulmonary are following. Infectious disease recommended 4 more days of colistimethate. Sputum culture is growing Enterobacter. UA suggest UTI, urine culture is growing mixed organisms. I highly suspect these bacterial growth are colonization. Off Diflucan. JANINE resolved. Constipation prophylaxis. Social service consulted to assist with disposition. Patient much clinically improved. May need to disposition to SNF.
[2022-05-18] MEDS: RIVAROXABAN 15 MG TABLET PO SCH (16:32)
[2022-05-18] MEDS: SERTRALINE HCL 100 MG TAB PO SCH (21:08)
[2022-05-19] MEDS: MIDAZOLAM HCL 2 MG/2 ML INJ IV PRN ×4 (01:33→15:53)
[2022-05-19] MEDS: TRAMADOL HCL 50 MG TAB FT PRN ×2 (04:29→13:15)
[2022-05-19 05:24] LABS: Potassium 5.6 mmol/L (3.5-5.1)
[2022-05-19] MEDS: COLISTIMETHATE NA 150 MG/VIAL IH SCH ×2 (07:49→19:53)
[2022-05-19] MEDS: SODIUM CHLORIDE 0.9% 20 ML VIAL IV SCH ×2 (08:00→20:00)
[2022-05-19] MEDS ORDERED: HYDROMORPHONE HCL 0.5 MG/0.5 ML INJ IV ONE (08:10)
[2022-05-19] MEDS: GABAPENTIN 100 MG CAP PO SCH ×3 (08:12→20:57)
[2022-05-19] MEDS: cloNIDine HCL 0.1 MG TAB PO SCH ×3 (08:12→20:57)
[2022-05-19] MEDS: PANTOPRAZOLE 40 MG INJ IVP SCH (08:12)
[2022-05-19] MEDS: JEVITY 1.2 CAL LIQUID 1,000 ML BOT FT SCH (08:12)
[2022-05-19] MEDS: BACLOFEN 10 MG TAB PO SCH ×3 (08:12→20:57)
[2022-05-19] MEDS: MICAFUNGIN SODIUM 100 MG in NA CHLORIDE 0.9% 100 ML IV SCH (08:54)
[2022-05-19] MEDS ORDERED: SOD POLYSTYREN SUL 15 GM/60 ML UCUP PO ONE (08:58)
[2022-05-19] MEDS: NA CHLORIDE 0.9% 1,000 ML IV SCH (11:47)
[2022-05-19] MEDS: NEPRO 1,000 ML BOT FT SCH ×3 (12:59→20:58)
--- NOTE | 2022-05-19 13:02 | RAD REPORT ---
EXAM DESCRIPTION: Mayt Single View05/19/2022 12:19 pm CLINICAL HISTORY: Chest pain COMPARISON: May 14, 2022 FINDINGS: No significant change in the prominently left basilar lung opacity probably atelectasis or pneumonia Heart is normal size. Tracheostomy tube in place
--- NOTE | 2022-05-19 13:44 | PN ---
Date of Progress Note: 05/19/2022 Subjective: The patient was admitted with acute kidney injury, hypernatremia, and hypokalemia. Kidney function has been improved after hydration. Today, the patient developed hyperkalemia. The patient not on any supplement, but apparently in the last couple of days, the patient had spastic episode on whole body, intermittent. Physical Examination: Vital Signs: When I saw the patient; blood pressure 141/91, pulse of 110. The patient on tracheostomy. Chest: Harsh crackles bilateral. Heart: S1, S2. Systolic murmur. Abdomen: Soft, nontender. Extremity: No edema. Neuro: The patient had spastic condition when I examined her. Laboratory Data: WBC 6.2, H and H 10.9/32.2. Sodium 136, potassium 5.6, bicarb 25, BUN 19, creatinine 0.7, calcium 10.4. Chest x-ray was done on the ; marginal cardiomegaly, no significant congestion. Current Medications: The patient on include; 1. Baclofen. 2. Micafungin. 3. Colistimethate. 4. Xarelto. 5. Clonidine 0.1 t.i.d. 6. Gabapentin. 7. Zoloft. 8. Jevity. 9. Breathing treatment. Assessment And Plan: 1. Acute kidney injury secondary to prerenal, recovered, resolved. 2. Hypernatremia secondary to depletion, resolved. 3. Hyperkalemia with spastic episode. The patient received Kayexalate already. I am going to go ahead and send for TSH and CK to evaluate for under clinical or subclinical seizure and we will follow up. I am going to give the patient gentle hydration. 4. Hypokalemia, resolved. 5. Hypercalcemia. We will change to Nepro and we will start hydration. Time spent examining the patient [id number], reviewing the data lab and radiology, placing orders, discussing with the patient, explaining risks, benefits, alternatives, discussing with the staff member including nursing discussing with the hospitalist more than 35 minutes. DWIGHT Voice ID: [id number] Report ID: [id number] ANA
[2022-05-19] MEDS ORDERED: BACLOFEN 10 MG TAB PO ONE (14:15)
--- NOTE | 2022-05-19 14:32 | P.PN ---
Subjective Date of Service: 05/19/22 Chief Complaint: Respiratory failure Patient experiencing multiple sympathetic episodes today with intermittent periods of rigidity and tachycardia. Minimal tracheal secretions. Physical Examination - Vital Signs Temperature: 97 F Blood Pressure: 116/88 Pulse: 123 Respirations: 12 Pulse Ox (%): 92 Assessment And Plan - Plan Physical exam GEN: Awake. HEENT:sclera anicteric. Neck: Trach-collar CV: Tachycardia, regular rhythm. Pulm: non-labored respirations on trach -collar, upper airway transmitted sounds. ABD: Soft, nontender, nondistended, gastric tube in place, no surrounding erythema Neuro: Quadriplegic. Problem List severe sepsis. Aspiration pneumonia History of MRSA Acute respiratory failure with hypoxia Left lower lobe atelectasis History of anoxic Brain Injury Tracheostomy dependent Quadriplegic Acute renal failure UTI Plan: Tracheostomy replaced during previous hospitalization. Currently stable on oxygen by trach collar. Vabomere discontinued. Colistimethate day 14. 3 more days to complete antibiotic treatment Tracheal secretions significantly improved. Off anticholinergics Tracheal suctioning as needed. Continue PEG tube feeding. Infectious disease and pulmonary are following. Sputum culture grew Enterobacter. UA suggest UTI, urine culture is growing mixed organisms. I highly suspect these bacterial growth are colonization. Off Diflucan. JANINE resolved. Constipation prophylaxis. Social service consulted assisting with disposition. Baclofen and Versed for sympathetic episodes and intermittent rigidity.
[2022-05-19] MEDS: RIVAROXABAN 15 MG TABLET PO SCH (16:15)
--- NOTE | 2022-05-19 18:29 | PN ---
Subjective: The patient is lying in bed. No new acute event. Chart reviewed. As per staff, the arvin mast's heart rate has been running 130 plus minus. Otherwise, no fever. Objective: Lungs: Basal crackles. Heart: S1, S2. Regular. Abdomen: Soft, nontender. Bowel sounds present. Extremity: Trace edema. Laboratory Data: WBC 6.2, hemoglobin 10.9, platelets are 412. Chemistry shows sodium 136, potassium 5.4, chloride 104, bicarb 25, BUN 19, creatinine 0.7, glucose is 131. Assessment And Plan: We will repeat panculture. If the patient continued to have elevated heart rat e, continue colistin total of 10 days. We will follow the patient closely. Respiratory failure, sep sis, atelectasis, urinary tract infection, quadriplegia. We will continue current treatment. No oth er recommendation at this time. Continue pulmonary hygiene. NF/MODL Voice ID: [id number] Report ID: [id number]
[2022-05-19] MEDS: SERTRALINE HCL 100 MG TAB PO SCH (20:58)
[2022-05-20 05:13] LABS: Absolute Lymphocytes (CBC) 1.8 K/uL (0.7-4.9); Hematocrit 31.1 % (36.0-45.0); MCV 83.5 fL (80-100); MPV 6.9 fL (7.6-11.3); RBC Red Blood Cell Count 3.73 M/uL (3.86-4.86)
[2022-05-20 05:37] LABS: Albumin 2.6 g/dL (3.4-5.0); Bilirubin Total 0.3 mg/dL (0.2-1.0); Potassium 3.6 mmol/L (3.5-5.1); Thyroid Stimulating Hormone 1.42 uIU/mL (0.360-3.740)
[2022-05-20] MEDS: SODIUM CHLORIDE 0.9% 20 ML VIAL IV SCH ×2 (08:00→20:00)
[2022-05-20] MEDS: IPRATROPIUM BROM 0.5MG/2.5ML NEB PRN (08:34)
[2022-05-20] MEDS: COLISTIMETHATE NA 150 MG/VIAL IH SCH ×2 (08:34→19:50)
[2022-05-20] MEDS: BACLOFEN 10 MG TAB PO SCH ×3 (08:47→21:02)
[2022-05-20] MEDS: GABAPENTIN 100 MG CAP PO SCH ×3 (08:47→21:01)
[2022-05-20] MEDS: PANTOPRAZOLE 40 MG INJ IVP SCH (08:47)
[2022-05-20] MEDS: cloNIDine HCL 0.1 MG TAB PO SCH ×3 (08:48→21:01)
[2022-05-20] MEDS: NA CHLORIDE 0.9% 1,000 ML IV SCH (08:49)
[2022-05-20] MEDS: NEPRO 1,000 ML BOT FT SCH ×4 (08:51→21:02)
[2022-05-20] MEDS: MICAFUNGIN SODIUM 100 MG in NA CHLORIDE 0.9% 100 ML IV SCH (09:30)
--- NOTE | 2022-05-20 11:49 | P.PN ---
Subjective Date of Service: 05/20/22 Chief Complaint: Respiratory failure Subjective: No new changes, Other (remains bedridden) Physical Examination - Vital Signs Temperature: 98.1 F Blood Pressure: 102/70 Pulse: 96 Respirations: 12 Pulse Ox (%): 100 - Physical Exam General: Other (chronically ill-appearing. Bedridden.) HEENT: Atraumatic, Normocephalic Neck: Other (+trach) Respiratory: Diminished, Other (symmetric chest expansion) Cardiovascular: No rubs, No murmurs Gastrointestinal: Other (+PEG) Musculoskeletal: No clubbing Integumentary: No warmth Neurological: Other (no new focal deficits) Urinary: Other (no bladder distention) External genitalia: Deferred Rectal: Deferred Assessment And Plan - Plan # JANINE 2/2 prerenal state +/- septic ATN Resolved Keep MAP > 65 Cont PEG feeding as below Monitor I/O, renal panel # Severe sepsis 2/2 likely aspiration pna Resolviing Abx per primary team & ID +Mucus plugging. Pulmo toilet. # Hypernatremia Resolved Wt 53.1 kgs Total body water 26.5L Cont PEG tube feeds/water flushes same rate # Anoxic brain injury w/ quadriplegia s/p trach + PEG Per other services # ? Paroxysmal sympathetic hyperactivity Per other services # Anemia Monitor H/H
[2022-05-20] MEDS: RIVAROXABAN 15 MG TABLET PO SCH (16:22)
--- NOTE | 2022-05-20 17:36 | P.PN ---
Subjective Date of Service: 05/20/22 Chief Complaint: Respiratory failure Patient appears more comfortable today. No issues overnight. Heart rate is better. Minimal tracheal secretions. Physical Examination - Vital Signs Temperature: 96.9 F Blood Pressure: 112/74 Pulse: 87 Respirations: 13 Pulse Ox (%): 98 Assessment And Plan - Plan Physical exam GEN: Awake. HEENT:sclera anicteric. Neck: Trach-collar CV: Tachycardia, regular rhythm. Pulm: non-labored respirations on trach -collar, upper airway transmitted sounds. ABD: Soft, nontender, nondistended, gastric tube in place, no surrounding erythema Neuro: Quadriplegic. Problem List severe sepsis. Aspiration pneumonia History of MRSA Acute respiratory failure with hypoxia Left lower lobe atelectasis History of anoxic Brain Injury Tracheostomy dependent Quadriplegic Acute renal failure UTI Plan: Tracheostomy replaced during previous hospitalization. Currently stable on oxygen by trach collar. Vabomere discontinued. Colistimethate day 15. 2 more days to complete antibiotic treatment Tracheal secretions significantly improved. Off anticholinergics Tracheal suctioning as needed. Continue PEG tube feeding. Infectious disease and pulmonary are following. Sputum culture grew Enterobacter. UA suggest UTI, urine culture is growing mixed organisms. I highly suspect these bacterial growth are colonization. Off Diflucan. JANINE resolved. Constipation prophylaxis. Social service consulted assisting with disposition. Baclofen and Versed for sympathetic episodes and intermittent rigidity.
[2022-05-20] MEDS: SERTRALINE HCL 100 MG TAB PO SCH (21:03)
[2022-05-21] MEDS: NA CHLORIDE 0.9% 1,000 ML IV SCH (05:22)
[2022-05-21] MEDS: COLISTIMETHATE NA 150 MG/VIAL IH SCH ×2 (07:41→20:05)
[2022-05-21] MEDS: IPRATROPIUM BROM 0.5MG/2.5ML NEB PRN (07:41)
[2022-05-21] MEDS: SODIUM CHLORIDE 0.9% 20 ML VIAL IV SCH ×2 (08:00→20:00)
[2022-05-21] MEDS: NEPRO 1,000 ML BOT FT SCH ×4 (08:41→21:14)
[2022-05-21] MEDS: cloNIDine HCL 0.1 MG TAB PO SCH ×3 (08:41→21:13)
[2022-05-21] MEDS: GABAPENTIN 100 MG CAP PO SCH ×3 (08:41→21:14)
[2022-05-21] MEDS: PANTOPRAZOLE 40 MG INJ IVP SCH (08:41)
[2022-05-21] MEDS: BACLOFEN 10 MG TAB PO SCH ×3 (08:41→21:14)
[2022-05-21] MEDS: MICAFUNGIN SODIUM 100 MG in NA CHLORIDE 0.9% 100 ML IV SCH (09:04)
--- NOTE | 2022-05-21 12:03 | P.PN ---
Subjective Date of Service: 05/21/22 Chief Complaint: Respiratory failure Patient appears comfortable No issues overnight. Minimal tracheal secretions. Physical Examination - Vital Signs Temperature: 98.1 F Blood Pressure: 142/89 Pulse: 96 Respirations: 12 Pulse Ox (%): 100 Assessment And Plan - Plan Physical exam GEN: Awake. HEENT:sclera anicteric. Neck: Trach-collar CV: Tachycardia, regular rhythm. Pulm: non-labored respirations on trach -collar, upper airway transmitted sounds. ABD: Soft, nontender, nondistended, gastric tube in place, no surrounding erythema Neuro: Quadriplegic. Problem List severe sepsis. Aspiration pneumonia History of MRSA Acute respiratory failure with hypoxia Left lower lobe atelectasis History of anoxic Brain Injury Tracheostomy dependent Quadriplegic Acute renal failure UTI Plan: Tracheostomy replaced during previous hospitalization. Currently stable on oxygen by trach collar. Vabomere discontinued. Colistimethate day 16. 1 more days to complete antibiotic treatment Tracheal secretions significantly improved. Off anticholinergics Tracheal suctioning as needed. Continue PEG tube feeding. Infectious disease and pulmonary are following. Sputum culture grew Enterobacter. UA suggest UTI, urine culture is growing mixed organisms. I highly suspect these bacterial growth are colonization. Off Diflucan. JANINE resolved. Constipation prophylaxis. Baclofen and Versed for sympathetic episodes and intermittent rigidity. Disposition to care home: [facility] on Monday.
--- NOTE | 2022-05-21 12:36 | PN ---
Date of Progress Note: 05/21/2022 Subjective: Patient was admitted with acute kidney injury, poor perfusion, ATN, hypernatremia, hypok alemia. Patient is treated. Kidney function has been normalized. Physical Examination: Vital Signs: Blood pressure 142/89, pulse of 98. Chest: Clear to auscultation. Neck: Has a trach. Abdomen: Soft, nontender. Extremities: No edema. Laboratory Data: H and H 10.5/31.1. Sodium 139, potassium 3.6, bicarb 30, BUN 21, creatinine 0.4, c alcium 8.9. Current Medications: The patient on include colistimethate, micafungin, Xarelto, clonidine, gabapent in, Zoloft, ipratropium. Assessment And Plan: 1.Acute kidney injury secondary to prerenal, resolved. 2.Hypernatremia secondary to depletion, resolved. 3.Hyperkalemia secondary to type of feeding, currently hypokalemia. We will continue current feedin g and we will monitor. 4.Rhabdomyolysis has been ruled out. 5.Hypercalcemia, resolved, after IV hydration. I am going to discontinue IV fluid. 6.Respiratory failure. Continue trach. Follow up with the primary. DARLENE/MICHAELLE Voice ID: [id number] Report ID: [id number]
[2022-05-21] MEDS: RIVAROXABAN 15 MG TABLET PO SCH (16:57)
[2022-05-21] MEDS ORDERED: METOPROLOL TARTRATE 5 MG/5 ML INJ IV STA (20:24)
[2022-05-21] MEDS: SERTRALINE HCL 100 MG TAB PO SCH (21:15)
[2022-05-21] MEDS: MIDAZOLAM HCL 2 MG/2 ML INJ IV PRN (21:42)
[2022-05-22 04:57] LABS: Absolute Lymphocytes (CBC) 1.8 K/uL (0.7-4.9); Hematocrit 32.8 % (36.0-45.0); Lymphocytes % 17.5 % (15.3-44.8); MCV 83.9 fL (80-100); MPV 7.3 fL (7.6-11.3)
[2022-05-22 05:09] LABS: Potassium 3.2 mmol/L (3.5-5.1)
[2022-05-22] MEDS: SODIUM CHLORIDE 0.9% 20 ML VIAL IV SCH ×2 (08:00→20:00)
[2022-05-22] MEDS: COLISTIMETHATE NA 150 MG/VIAL IH SCH ×2 (08:38→19:45)
[2022-05-22] MEDS: IPRATROPIUM BROM 0.5MG/2.5ML NEB PRN (08:38)
[2022-05-22] MEDS: MICAFUNGIN SODIUM 100 MG in NA CHLORIDE 0.9% 100 ML IV SCH (08:58)
[2022-05-22] MEDS: GABAPENTIN 100 MG CAP PO SCH ×3 (08:58→21:17)
[2022-05-22] MEDS: BACLOFEN 10 MG TAB PO SCH ×3 (08:58→21:16)
[2022-05-22] MEDS: PANTOPRAZOLE 40 MG INJ IVP SCH (08:59)
[2022-05-22] MEDS: NEPRO 1,000 ML BOT FT SCH (08:59)
[2022-05-22] MEDS: cloNIDine HCL 0.1 MG TAB PO SCH ×3 (08:59→21:16)
--- NOTE | 2022-05-22 13:10 | P.PN ---
Subjective Date of Service: 05/22/22 Chief Complaint: Respiratory failure No major changes from yesterday. Clinically stable. Minimal tracheal secretions. Physical Examination - Vital Signs Temperature: 97.2 F Blood Pressure: 113/71 Pulse: 91 Respirations: 17 Pulse Ox (%): 97 Assessment And Plan - Plan Physical exam GEN: Awake. HEENT:sclera anicteric. Neck: Trach-collar CV: Tachycardia, regular rhythm. Pulm: non-labored respirations on trach -collar, upper airway transmitted sounds. ABD: Soft, nontender, nondistended, gastric tube in place, no surrounding erythema Neuro: Quadriplegic. Problem List severe sepsis. Aspiration pneumonia History of MRSA Acute respiratory failure with hypoxia Left lower lobe atelectasis History of anoxic Brain Injury Tracheostomy dependent Quadriplegic Acute renal failure UTI Plan: Tracheostomy replaced during previous hospitalization. Currently stable on oxygen by trach collar. Vabomere discontinued. Colistimethate day 16. Patient should complete antibiotic therapy by tomorrow. Tracheal secretions significantly improved. Off anticholinergics Tracheal suctioning as needed. Continue PEG tube feeding. Infectious disease and pulmonary are following. Sputum culture grew Enterobacter. UA suggest UTI, urine culture is growing mixed organisms. I highly suspect these bacterial growth are colonization. Off Diflucan. JANINE resolved. Constipation prophylaxis. Baclofen and Versed for sympathetic episodes and intermittent rigidity. Disposition to senior care: [facility] on Monday.
[2022-05-22] MEDS: JEVITY 1.2 CAL LIQUID 1,000 ML BOT FT SCH ×3 (13:17→21:17)
--- NOTE | 2022-05-22 14:31 | PN ---
Date of Progress Note: 05/22/2022 Subjective: The patient was admitted with acute kidney injury and hypernatremia. The patient after hydration recovered, resolved. The patient developed hyperkalemia secondary to , recovered . Physical Examination: Vital Signs: Blood pressure 113/71, pulse of 91. Chest: Decreased entry bilateral base. Heart: S1, S2. Systolic murmur. The patient had tracheostomy. Abdomen: Soft, nontender. Extremities: No edema. Neuro: The patient opens eyes spontaneously. Laboratory Data: WBC 10, H and H 11/32.8. Sodium 142, potassium 3.2, bicarb 27, BUN 20, creatinine 0.5, calcium 9.4. Current Medications: The patient on include micafungin, baclofen, clonidine, metoprolol, gabapentin, midazolam, Zoloft, Nepro. Assessment And Plan: 1.Acute kidney injury secondary to prerenal, recovered, resolved. 2.Hypertension, controlled. 3.Hypernatremia secondary to depletion, resolved. 4.Hypokalemia with history of hyperkalemia. We will switch back to the [facility]. We are not going to supplement right now. 5.Hypercalcemia secondary to dehydration, resolved. DARLENE/MICHAELLE Voice ID: [id number] Report ID: [id number]
[2022-05-22] MEDS: RIVAROXABAN 15 MG TABLET PO SCH (16:37)
[2022-05-22] MEDS: SERTRALINE HCL 100 MG TAB PO SCH (21:16)
[2022-05-23 05:31] LABS: Potassium 3.7 mmol/L (3.5-5.1)
[2022-05-23 06:37] VITALS: BMI 23.2
[2022-05-23] MEDS: SODIUM CHLORIDE 0.9% 20 ML VIAL IV SCH (08:00)
[2022-05-23] MEDS: COLISTIMETHATE NA 150 MG/VIAL IH SCH (08:00)
[2022-05-23] MEDS: GABAPENTIN 100 MG CAP PO SCH ×2 (08:26→13:05)
[2022-05-23] MEDS: cloNIDine HCL 0.1 MG TAB PO SCH ×2 (08:26→13:07)
[2022-05-23] MEDS: BACLOFEN 10 MG TAB PO SCH ×2 (08:27→13:05)
[2022-05-23] MEDS: JEVITY 1.2 CAL LIQUID 1,000 ML BOT FT SCH ×2 (08:27→13:05)
[2022-05-23] MEDS: MICAFUNGIN SODIUM 100 MG in NA CHLORIDE 0.9% 100 ML IV SCH (08:27)
[2022-05-23] MEDS: PANTOPRAZOLE 40 MG INJ IVP SCH (08:27)
--- NOTE | 2022-05-23 10:49 | P.DS ---
Admission Date: 05/06/22 Discharge Date: 05/23/22 Disposition: TRANSFER TO LONGTERM Discharge Condition: FAIR Reason for Admission: Respiratory failure Brief History of Present Illness: 46-year-old female with history of anoxic brain injury who is trach dependent with PEG tube in place presents emergency department for respiratory distress, diaphoresis, tachycardia. She was discharged earlier today from the ICU here back to her care home, they noted that she was having labored breathing and appeared very ill and was transported by EMS back to the hospital. She was also having copious secretions from the tracheostomy. Upon arrival to the emergency department patient tachycardic with heart rate around 170, tachypneic, dyspneic, diaphoretic and febrile to 105.5 rectal. Sepsis protocol was initiated her labs were significant for acute renal failure with creatinine of 2.02 GFR of 30 glucose 347 lactic acid 12.6 mild elevations in AST/ALT White blood cell count spiked to 24.5 urine with no bacteria presents blood and sputum cultures were obtained ABG shows respiratory alkalosis. Patient was discharged on Bactrim/Doxy p.o. Case discussed with infectious disease will recommended IV Vabomere as well as inhaled colistin. Patient need to be admitted to the ICU for septic shock. She is received 30 cc/kg IV fluids after lactate came back greater than 4. She was not hypotensive. Her blood cultures during her previous admission were negative, sputum culture returned MRSA as well as stenotrophomonas maltophilia. Chest x-ray was unremarkable, CT chest without contrast ordered for further evaluation. Per chart review patient had previously been diagnosed with paroxysmal sympathetic hypersensitivity which also explain her symptoms. Hospital Course: Diagnosis severe sepsis. Aspiration pneumonia History of MRSA Acute respiratory failure with hypoxia Left lower lobe atelectasis History of anoxic Brain Injury Tracheostomy dependent Quadriplegic Acute renal failure UTI Plan: Tracheostomy replaced during previous hospitalization. Patient was treated with Vabomere and colostomy for several days. She was initially placed on on the vent and later transitioned to oxygen by trach collar. Her tracheal secretion improved significantly with treatment and currently has minimal secretions even without anticholinergics.. Continued PEG tube feeding. Infectious disease and pulmonary saw patient and assisted with management Sputum culture grew Enterobacter. UA suggest UTI, urine culture grew mixed organisms. I highly suspect these bacterial growth are colonization. He was also treated with micafungin for several days for suspected fungal UTI and also respiratory fungal infection. She had JANINE which resolved. She was placed on constipation prophylaxis and had regular bowel movement Baclofen and Versed were used to treat sympathetic episodes and intermittent rigidity. She is clinically stable for discharge. Vital Signs/Physical Exam: Temp Pulse Resp BP Pulse Ox 97.3 F 77 17 117/73 99 05/23/22 04:00 05/23/22 04:00 05/23/22 04:00 05/23/22 08:26 05/23/22 04:00 General: Other (Awake, nonverbal) HEENT: Other Neck: Other (Tracheostomy) Respiratory: Clear to auscultation bilaterally, Normal air movement Cardiovascular: No edema, Regular rate/rhythm, Normal S1 S2 Gastrointestinal: Soft and benign, Non-distended Musculoskeletal: No swelling, Other Integumentary: No cyanosis Neurological: Other (Quadriplegia) Laboratory Data at Discharge: WBC 10.00 K/uL (4.3-10.9) D 05/22/22 04:43 Hgb 11.0 g/dL (12.0-15.0) L 05/22/22 04:43 Hct 32.8 % (36.0-45.0) L 05/22/22 04:43 Plt Count 395 K/uL (152-406) 05/22/22 04:43 PT 11.0 SECONDS (9.5-12.5) 05/06/22 18:17 INR 1.00 05/06/22 18:17 APTT 34.9 SECONDS (24.3-36.9) 05/06/22 18:17 Sodium 142 mmol/L (136-145) 05/23/22 04:53 Potassium 3.7 mmol/L (3.5-5.1) 05/23/22 04:53 BUN 16 mg/dL (7-18) 05/23/22 04:53 Creatinine 0.45 mg/dL (0.55-1.3) L 05/23/22 04:53 Glucose 126 mg/dL (74-106) H 05/23/22 04:53 Magnesium 2.4 mg/dL (1.8-2.4) 05/16/22 04:41 Total Bilirubin 0.3 mg/dL (0.2-1.0) 05/20/22 04:56 AST 32 U/L (15-37) 05/20/22 04:56 ALT 36 U/L (12-78) 05/20/22 04:56 Alkaline Phosphatase 136 U/L (45-117) H 05/20/22 04:56 Home Medications: Albuterol Neb [Proventil 0.083% Neb Soln] 1 amp NEB Q6HR 04/22/22 Aspirin [Aspirin EC 81 MG] 81 mg PO DAILY 04/22/22 Atorvastatin Calcium 20 mg PO DAILY 04/22/22 Baclofen 5 mg PO TID 04/22/22 Gabapentin [Neurontin*] 100 mg PO TID 04/22/22 Polyethylene Glycol 3350 [Miralax] 17 gm PO DAILY 04/22/22 cloNIDine HCL [Clonidine HCl] 0.1 mg PO TID 04/22/22 Ipratropium Neb [Atrovent*] 0.5 mg NEB [id number] amp 04/25/22 Jevity 1.2 Danie Liquid 240 ml FT QID bot 04/25/22 Sertraline [Zoloft*] 100 mg PO BEDTIME 04/29/22 Rivaroxaban [Xarelto*] 10 mg PO DAILY AT SUPPER 05/05/22 Physician Discharge Instructions: Seizure precautions. Diet: Regular Activity: Fall precautions Followup: Be Mcadams MD [Primary Care Provider] - 1-2 Weeks Time spent managing pt's care (in minutes): 40
[2022-05-23 10:50] VITALS: O2SAT 99
[2022-05-23 11:08] VITALS: TEMP 96.5
--- NOTE | 2022-05-23 12:40 | PN ---
Subjective: The patient is seen in ICU 6. Much more awake at this time. No other acute event over the weekend. Not in any acute distress. Objective: Vital signs; temperature 96.5, pulse 74, respiration 15, blood pressure 117/73. Examinat ion remained unchanged. Laboratory Data: Lab data shows WBC 10, hemoglobin 11, platelets are 395. Chemistry; sodium 142, po tassium 3.7, chloride 109, bicarb 28, BUN 16, creatinine 0.4, glucose 126. The patient currently on colistin and micafungin. Assessment And Plan: Acute respiratory failure with multidrug resistant organism infection. Current ly on colistin, day 17. The patient can be discharged. Continue pulmonary hygiene. Continue suppor tive care and symptomatic treatment. We will follow the patient as needed. NF/MODL Voice ID: [id number] Report ID: [id number]
[2022-05-23 13:08] VITALS: BP 99/72
--- NOTE | 2022-05-23 20:52 | PN ---
Date of Progress Note: 05/23/2022 Chief Complaint: Acute kidney injury. History Of Present Illness: The patient was found to have acute kidney injury upon admission. It wa s associated with volume depletion, hypernatremia, dehydration. The patient received IV fluids and r enal function has improved. The patient was found to have hyperkalemia and was treated for hyperkale anthony. Jevity tube feeding was changed to avoid hyperkalemic episode. Review of Systems: Unobtainable. The patient has encephalopathy, cannot provide review of systems. Physical Examination: Lungs: Clear to auscultation bilaterally. Heart: S1, S2. Abdomen: Soft. Extremities: No edema. Impression And Plan: 1.Acute kidney injury. Renal function has improved. Continue to monitor electrolytes and azotemia. Avoid nephrotoxic medication. 2.Hypertension, controlled. 3.Hypernatremia secondary to dehydration, resolved with IV fluids. 4.Hypokalemia with history of hyperkalemia. The patient currently is on enteral tube feeding. Padmaja tor electrolytes. Potassium level today is within normal limits. 5.Hypercalcemia secondary to volume contraction. Dehydration resolved with adequate hydration. EB/MODL Voice ID: [id number] Report ID: [id number]
== END 2022-05-23 15:40 | DRG 871 ==
LOC: ER 17:55 → ERHOLD 19:34 → 3RD-ICU 21:00
PROVIDERS: ADMIT Internal Medicine; ATTEND Internal Medicine
PROC: 5A09557 Assistance with Respiratory Ventilation, Greater than 96 Consecutive Hours, Continuous Positive Airway Pressure (ICD-10-PCS; principal; 2022-05-06)
DX: A41.9 Sepsis, unspecified organism (principal); R65.21 Severe sepsis with septic shock; J69.0 Pneumonitis due to inhalation of food and vomit; G82.50 Quadriplegia, unspecified; J96.21 Acute and chronic respiratory failure with hypoxia; N17.0 Acute kidney failure with tubular necrosis; I47.1 Supraventricular tachycardia; E87.2 Acidosis; N39.0 Urinary tract infection, site not specified; E87.0 Hyperosmolality and hypernatremia; G93.40 Encephalopathy, unspecified; Z16.24 Resistance to multiple antibiotics; E87.3 Alkalosis; E87.6 Hypokalemia; E86.0 Dehydration; E83.52 Hypercalcemia; D64.9 Anemia, unspecified; Z86.14 Personal history of Methicillin resistant Staphylococcus aureus infection; Z93.0 Tracheostomy status; Z93.1 Gastrostomy status; Z79.82 Long term (current) use of aspirin; Z79.899 Other long term (current) drug therapy; Z90.710 Acquired absence of both cervix and uterus
CPT/HCPCS: 36415; 51702; 71045; 71250; 80048; 80053; 81015; 82550; 82805; 82947; 83605; 83735; 83880; 84132; 84145; 84443; 84484; 85025; 85610; 85730; 87040; 87070; 87077; 87086; 87088; 87186; 87205; 93005; 94660; 94760; 96365; 96367; 99291; C9113; J0153; J0692; J0770; J1170; J1644; J2248; J2250; J3480; J7030; J7050; J7799

== ENCOUNTER 2022-05-25 05:38 | Inpatient (IN) | payer OTHER ==
--- OUTSIDE RECORDS SUMMARY | 2022-05-25 05:41 | XMS REPORT | Continuity of Care Document ---
:1975 Author Organization [facility] t Address [address] [place] [address] [address] [place] [address] Care Team Providers Name Role Phone GC_BAHC_Todd_J Attending Clinician Unavailable Magda Duval Attending Clinician [phone] GC_BAHC_Todd_Jaqui Admitting Clinician Unavailable Payers Payer Name Policy Type Policy Number Effective Date Expiration Date Na sow MEDICAID - 000 [id number] - PENDING Problems [...] 2022-05-06 2022-05-06 Outpatient GC_BAHC_Tod PRIV PRIV [id number] [facility] 00:00:00 00:00:00 d_J [id number] Medica l 2022-04-26 2022-04-26 Outpatient GC_BAHC_Tod PRIV PRIV [id number] [facility] 00:00:00 00:00:00 d_J [id number] Medica l 2022-04-26 2022-04-26 Outpatient Mukund, PRIV PRIV [id number] 00:00:00 00:00:00 Magda [id number] 2022-04-22 2022-04-22 Outpatient GC_BAHC_Tod PRIV PRIV [id number] [facility] 00:00:00 00:00:00 d_J [id number] Medica l Results This patient has no known results.
[2022-05-25 06:13] LABS: Arterial Blood Carboxyhemoglob 1.3 % (0-1.5); Blood Gas Oxyhemoglobin 96.8 % (94-97); Blood O2 Saturation 98.9 % (92-98.5)
[2022-05-25 06:26] LABS: Hematocrit 36.3 % (36.0-45.0); MCV 85.3 fL (80-100); RBC Red Blood Cell Count 4.25 M/uL (3.86-4.86)
[2022-05-25 06:27] LABS: Absolute Lymphocytes (CBC) 0.9 K/uL (0.7-4.9); Lymphocytes % 6.5 % (15.3-44.8); MPV 7.4 fL (7.6-11.3); Protime INR 1.11
[2022-05-25 06:34] LABS: Albumin 3.5 g/dL (3.4-5.0); Bilirubin Total 0.4 mg/dL (0.2-1.0); Potassium 4.3 mmol/L (3.5-5.1); Protein, Total 9.1 g/dL (6.4-8.2)
--- NOTE | 2022-05-25 06:34 | ER ---
Nurse's Notes [facility] Name: Angelique Villalobos Age: 46 yrs Sex: Female : 1975 Arrival Date: 05/25/2022 Time: 05:45 Bed 2 Private MD: Diagnosis: Fever, unspecified;Sepsis, unspecified organism;Tracheostomy status;Pneumonia due to other specified bacteria;Acute kidney failure, unspecified;Elevated white blood cell count;Severe sepsis without septic shock Presentation: 05/25 05:45 Chief complaint: EMS states: called out for shortness of breath to [address] pt has trach. ems reported that when they suctioned pt approx 30 mL feeding solution. upon arrival to ER pt is extremely diaphoretic, wet inspiration and expirations. Coronavirus screen: Client presents with at least one sign or symptom that may indicate coronavirus-19. Ebola Screen: No symptoms or risks identified at this time. Initial Sepsis Screen: Does the patient meet any 2 criteria? RR > 20 per min. HR > 90 bpm. Yes Does the patient have a suspected source of infection? Yes: Productive cough/pneumonia If YES to both, name of provider notified: Bar Gorman MD. Risk Assessment: Do you want to hurt yourself or someone else? Unable to obtain. Onset of symptoms was May 25, 2022. 05:45 Method Of Arrival: EMS: [facility] as6 05:45 Acuity: DELMER 2 as6 Historical: - Allergies: 07:20 No Known Allergies; as6 - PMHx: 07:20 anoxic brain injury; as6 - PSHx: 07:20 PEG tube; tracheostomy; as6 - Immunization history:: Adult Immunizations not up to date. - Social history:: Smoking status: unknown. - Family history:: not pertinent. Screenin:21 Abuse screen: Denies threats or abuse. Denies injuries from another. Nutritional as6 screening: No deficits noted. Tuberculosis screening: No symptoms or risk factors identified. Fall Risk None identified. Assessment: 05:45 General: Appears ill, unkempt, Behavior is flat. Pain: Unable to use pain scale. Does as6 not appear to understand pain scale. Neuro: Level of Consciousness is awake. Cardiovascular: Rhythm is sinus tachycardia. Respiratory: Airway via trache Respiratory effort is labored, Respiratory pattern is tachypnea Breath sounds with crackles bilaterally. Derm: Skin is diaphoretic. Musculoskeletal: posturing. Vital Signs: 05:45 Temp 98.3(C); Weight 58.97 kg; as6 05:49 BP 117 / 87; Pulse 154; Resp 33; Pulse Ox 98% ; vc1 ED Course: 05:45 Patient arrived in ED. cy 06:00 Assisted provider with central line placement. Set up central line tray. Triple lumen as6 line placed in right femoral. Line placed by Bar Gorman MD Placement verified by blood return, Dressed with Tegaderm, Blood was collected. Patient tolerated well. 06:10 Randolph cath inserted, using sterile technique, 16 Fr., by nm, balloon inflated, to as6 gravity drainage, urine specimen collected. 06:11 Bar Gorman MD is Attending Physician. cy 06:27 Kurt Francisco, SHARON is Primary Nurse. as6 06:31 Calvin Quintero MD is Hospitalizing Provider. cy 06:33 Triage completed. as6 06:35 Chest Single View XRAY In Process Unspecified. EDMS 06:57 Placed in gown. Bed in low position. Call light in reach. Side rails up X2. Client as6 placed on continuous cardiac and pulse oximetry monitoring. NIBP monitoring applied. 07:21 Arm band placed on. as6 08:36 Patient admitted, IV remains in place. tw2 Administered Medications: 06:47 Drug: NS 0.9% (30 ml/kg) 30 ml/kg Route: IV; Rate: bolus; Site: right femoral; as6 09:42 Follow up: IV Status: Completed infusion; IV Intake: 1500ml tw2 06:47 Drug: Cefepime 2 grams Route: IVPB; Rate: 200 ml/hr; Infused Over: 30 mins; Site: right as6 femoral; 06:52 Drug: Pepcid (famotidine) 20 mg Route: IVP; Site: right femoral; as6 07:08 Drug: vancoMYCIN 1 grams Route: IVPB; Infused Over: 2 hrs; Site: right femoral; as6 07:08 Drug: Tylenol Suppository 650 mg Route: DE; as6 Medication: 13:30 VIS not applicable for this client. jl7 Intake: 09:42 IV: 1500ml; Total: 1500ml. tw2 Outcome: 06:33 Decision to Hospitalize by Provider. cy 08:36 Admitted to ER Hold. Please see [facility] for further documentation. tw2 08:36 Condition: stable 08:36 Instructed on the need for admit. 13:30 Patient left the ED. jl7 Signatures: Dispatcher [employer] EDBar Hoang MD MD cha Wise, Tara RN RN tw2 Robyn Kapadia RN RN jl7 Kurt Francisco RN RN as6 Tessy Serrato RN RN vc1
--- NOTE | 2022-05-25 06:35 | EDPHYS ---
Physician Documentation [facility] Name: Angelique Villalobos Age: 46 yrs Sex: Female : 1975 Arrival Date: 05/25/2022 Time: 05:45 Bed 2 Private MD: ED Physician Bar Gorman HPI: 05/25 06:25 This 46 yrs old Female presents to ER via Unassigned with complaints of cy fever, dyspnea, trach. 06:25 The patient or guardian reports cough, difficulty breathing. Onset: The cy symptoms/episode began/occurred 1 day(s) ago. Modifying factors: The symptoms are alleviated by nothing. the symptoms are aggravated by nothing. dyspnea, trach, tachy , sepsis. Associated signs and symptoms: Pertinent positives: fever. The patient reports fever, that was measured at 100 degrees Fahrenheit. Modifying factors: there are no obvious modifying factors. Severity of symptoms: At their worst the symptoms were moderate severe in the emergency department the symptoms are unchanged. Historical: - Allergies: 07:20 No Known Allergies; as6 - PMHx: 07:20 anoxic brain injury; as6 - PSHx: 07:20 PEG tube; tracheostomy; as6 - Immunization history:: Adult Immunizations not up to date. - Social history:: Smoking status: unknown. - Family history:: not pertinent. ROS: 06:25 Eyes: Negative for injury, pain, redness, and discharge, ENT: Negative for injury, cy pain, and discharge, Neck: Negative for injury, pain, and swelling, Abdomen/GI: Negative for abdominal pain, nausea, vomiting, diarrhea, and constipation, Back: Negative for injury and pain, : Negative for injury, bleeding, discharge, and swelling, Skin: Negative for injury, rash, and discoloration, Allergy/Immunology: Negative for hives, rash, and allergies, Endocrine: Negative for neck swelling, polydipsia, polyuria, polyphagia, and marked weight changes, Hematologic/Lymphatic: Negative for swollen nodes, abnormal bleeding, and unusual bruising. 06:25 Constitutional: Positive for fever. 06:25 Cardiovascular: Positive for palpitations. 06:25 Respiratory: Positive for shortness of breath. 06:25 Neuro: Positive for altered mental status. Exam: 06:25 Constitutional: This is a well developed, well nourished patient who is awake, alert, cy and in no acute distress. Head/Face: Normocephalic, atraumatic. Eyes: Pupils equal round and reactive to light, extra-ocular motions intact. Lids and lashes normal. Conjunctiva and sclera are non-icteric and not injected. Cornea within normal limits. Periorbital areas with no swelling, redness, or edema. ENT: Nares patent. No nasal discharge, no septal abnormalities noted. Tympanic membranes are normal and external auditory canals are clear. Oropharynx with no redness, swelling, or masses, exudates, or evidence of obstruction, uvula midline. Mucous membranes moist. Neck: Trachea midline, no thyromegaly or masses palpated, and no cervical lymphadenopathy. Supple, full range of motion without nuchal rigidity, or vertebral point tenderness. No Meningismus. Chest/axilla: Normal chest wall appearance and motion. Nontender with no deformity. No lesions are appreciated. Cardiovascular: Regular rate and rhythm with a normal S1 and S2. No gallops, murmurs, or rubs. Normal PMI, no JVD. No pulse deficits. Back: No spinal tenderness. No costovertebral tenderness. Full range of motion. Female : Normal external genitalia. Skin: Warm, dry with normal turgor. Normal color with no rashes, no lesions, and no evidence of cellulitis. MS/ Extremity: Pulses equal, no cyanosis. Neurovascular intact. Full, normal range of motion. Neuro: Awake and alert, GCS 15, oriented to person, place, time, and situation. Cranial nerves II-XII grossly intact. Motor strength 5/5 in all extremities. Sensory grossly intact. Cerebellar exam normal. Normal gait. Psych: Awake, alert, with orientation to person, place and time. Behavior, mood, and affect are within normal limits. 06:25 ECG was reviewed by the Attending Physician. 06:25 Respiratory: moderate respiratory distress is noted, Respirations: labored breathing, that is moderate, Breath sounds: bronchial sounds, that are moderate, are scattered, rhonchi, that are moderate, stridor, is not appreciated, Respiratory rate: 33 Vital Signs: 05:45 Temp 98.3(C); Weight 58.97 kg; as6 05:49 BP 117 / 87; Pulse 154; Resp 33; Pulse Ox 98% ; vc1 Procedures: 06:31 Central Line: the site was prepped with Betadine, in sterile fashion, a triple lumen cy catheter was inserted, in the left femoral vein, in 1 attempts. placement was verified, by blood return, the site was dressed with using sterile technique, the patient tolerated the procedure, well. MDM: 06:12 Patient medically screened. [facility] 06:29 Differential diagnosis: bronchitis, flu, URI, viral Infection, bacterial infection, cy URI, bronchitis, pneumonia UTI. Antibiotic administration: cefepime/vancomycin. Differential Diagnosis altered mental status, sepsis. Data reviewed: vital signs, nurses notes, lab test result(s), EKG, radiologic studies, plain films. Data interpreted: library monitor: rate is 154 beats/min, rhythm is regular, Pulse oximetry: on 98% oxygen by non-rebreather. Test interpretation: by ED physician or midlevel provider: ECG, plain radiologic studies. Counseling: I had a detailed discussion with the patient and/or guardian regarding: the historical points, exam findings, and any diagnostic results supporting the discharge/admit diagnosis, lab results, radiology results, the need for further work-up and treatment in the hospital. 05/25 06:06 Order name: Blood Culture Adult (2) [facility] 05/25 06:06 Order name: CBC with Diff; Complete Time: : [facility] 05/25 06:06 Order name: CMP; Complete Time: : [facility] 05/25 06:06 Order name: Lactate; Complete Time: 07: [facility] 05/25 06:06 Order name: Protime (+inr); Complete Time: : [facility] 05/25 06:06 Order name: Ptt, Activated; Complete Time: 07: [facility] 05/25 06:06 Order name: Urine Culture [facility] 05/25 06:06 Order name: Urine Microscopic Only; Complete Time: : [facility] 05/25 06:06 Order name: ABG; Complete Time: : [facility] 05/25 06:19 Order name: Basic Metabolic Panel [facility] 05/25 06:19 Order name: Troponin HS [facility] 05/25 06:19 Order name: BNP [facility] 05/25 06:19 Order name: SARS-COV-2 RT PCR (Document "Date of Onset" if Symptomatic) [facility] 05/25 06:55 Order name: Urine Dipstick-Ancillary; Complete Time: 07:09 EDMS 05/25 06:06 Order name: Chest Single View XRAY mw2 05/25 06:06 Order name: Accucheck; Complete Time: 06:27 mw2 05/25 06:06 Order name: Cardiac monitoring; Complete Time: 06:27 mw2 05/25 06:19 Order name: EKG; Complete Time: 06:20 [facility] 05/25 09:23 Order name: Glucose, Ancillary Testing EDMD 05/25 10:04 Order name: Lactate Sepsis 2 HR Follow-up EDMS 05/25 10:07 Order name: Phosphorus EDMS 05/25 10:07 Order name: Magnesium EDMS 05/25 10:08 Order name: Lipid Profile EDMD 05/25 10:12 Order name: Vancomycin Level Trough EDMS 05/25 10:22 Order name: Hemoglobin A1c EDMS 05/25 06:06 Order name: Cath; Complete Time: 06:27 mw2 05/25 06:06 Order name: EKG - Nurse/Tech; Complete Time: 06:27 2 05/25 06:06 Order name: IV Saline Lock - Large Bore; Complete Time: 06:27 mw2 05/25 06:06 Order name: Labs collected and sent; Complete Time: 06:27 mw2 05/25 06:06 Order name: O2 Per Protocol; Complete Time: 06:27 mw2 05/25 06:06 Order name: O2 Sat Monitoring; Complete Time: 06:27 mw2 05/25 06:06 Order name: Urine Dipstick-Ancillary (obtain specimen); Complete Time: 06:57 mw2 05/25 06:19 Order name: IV Saline Lock; Complete Time: 06:27 [facility] 05/25 06:19 Order name: [place]; Complete Time: 06:27 [facility] EC:25 Rate is 133 beats/min. Rhythm is regular. QRS [place] is Normal. HI interval is normal. [facility] QRS interval is normal. QT interval is normal. No Q waves. T waves are Normal. No ST changes noted. Clinical impression: NSR w/ Non-specific ST/T Changes, Sinus tachycardia, and No evidence of ischemia. Interpreted by me. Reviewed by me. Administered Medications: 06:47 Drug: NS 0.9% (30 ml/kg) 30 ml/kg Route: IV; Rate: bolus; Site: right femoral; as6 09:42 Follow up: IV Status: Completed infusion; IV Intake: 1500ml tw2 06:47 Drug: Cefepime 2 grams Route: IVPB; Rate: 200 ml/hr; Infused Over: 30 mins; Site: right as6 femoral; 06:52 Drug: Pepcid (famotidine) 20 mg Route: IVP; Site: right femoral; as6 07:08 Drug: vancoMYCIN 1 grams Route: IVPB; Infused Over: 2 hrs; Site: right femoral; as6 07:08 Drug: Tylenol Suppository 650 mg Route: HI; as6 Disposition Summary: 05/25/22 06:33 Hospitalization Ordered Hospitalization Status: Inpatient Admission cy Provider: Calvin Quintero cha Condition: Stable cy Problem: new cy Symptoms: have improved cy Bed/Room Type: Standard cy Location: Intensive Care Unit(05/25/22 12:25) bd Room Assignment: 7-(05/25/22 12:25) bd Diagnosis - Fever, unspecified cy - Sepsis, unspecified organism cy - Tracheostomy status cy - Pneumonia due to other specified bacteria cy - Acute kidney failure, unspecified cy - Elevated white blood cell count cy - Severe sepsis without septic shock cy Forms: - Medication Reconciliation Form cy - SBAR form cy Critical care time excluding procedures: 07:02 Critical care time: Bedside Care: 30 minutes, Consultation: 10 minutes, Family cy Intervention: 5 minutes. Total time: 45 minutes Signatures: Dispatcher [employer] Nicole Marin Corey, MD MD cha [place], MyKena mw2 Kurt Francisco RN RN as6 Fern Canchola RN RN ll4 Tamela León RN tw2 Corrections: (The following items were deleted from the chart) 07:58 06:33 Intensive Care Unit cy ll4 07:58 06:33 cy ll4 12:25 07:58 [facility] ER HOLD ll4 bd 12:25 07:58 ERHOLD- ll4 bd
[2022-05-25] MEDS ORDERED: CEFEPIME 2 GM VIAL ONE (06:45)
[2022-05-25] MEDS ORDERED: NA CHLORIDE 0.9% 1,000 ML ONE (06:46)
[2022-05-25] MEDS ORDERED: VANCOMYCIN 1 GM/VIAL ONE (06:46)
[2022-05-25] MEDS ORDERED: NA CHLORIDE 0.9% 250 ML ONE (06:46)
[2022-05-25] MEDS ORDERED: NA CHLORIDE 0.9% 500 ML ONE (06:46)
[2022-05-25] MEDS ORDERED: ACETAMINOPHEN 650MG/RECT SUPP PR ONE (06:46)
[2022-05-25] MEDS ORDERED: FAMOTIDINE 20 MG/2 ML VIAL IV ONE (06:46)
[2022-05-25] MEDS ORDERED: NA CHLORIDE 0.9% 0 ML ONE (06:46)
[2022-05-25 06:54] LABS: Urine Blood Negative (Negative); Urine Glucose Negative (Negative); Urine Protein Negative (Negative); Urine pH 7.5 (5.0-7.0)
[2022-05-25 07:02] LABS: Urine Bacteria None Seen /HPF (<20); Urine RBC None Seen /HPF (None Seen)
[2022-05-25] MEDS ORDERED: ACETAMINOPHEN 500 MG TAB PO PRN (08:31)
[2022-05-25] MEDS ORDERED: ONDANSETRON 4 MG/2 ML VIAL IV PRN (08:31)
--- NOTE | 2022-05-25 08:43 | P.HP ---
Certification for Inpatient Patient admitted to: Inpatient With expected LOS: >2 Midnights Patient will require the following post-hospital care: None Practitioner: I am a practitioner with admitting privileges, knowledge of patient current condition, hospital course, and medical plan of care. Services: Services provided to patient in accordance with Admission requirements found in Title 42 Section 412.3 of the Code of Federal Regulations Patient History Date of Service: 05/25/22 Reason for admission: Dyspnea History of Present Illness: Patient is a 46-year-old female with a past medical history significant for anoxic brain injury, constipation, trach dependence with PEG tube who presents with complaint of dyspnea and difficulty breathing. Patient nonverbal, contracted in upper and lower extremities. Per nursing staff patient had difficulty breathing despite being suctioned. Also reported associated signs and symptoms of fever and cough. No other signs or symptoms noted. Symptoms are aggravated or relieved by nothing. Patient was brought to the hospital for medical evaluation and due to worsening symptoms. Allergies No Known Allergies Allergy (Unverified 04/22/22 04:01) Home Medications: Albuterol Neb [Proventil 0.083% Neb Soln] 1 amp NEB Q6HR 04/22/22 Aspirin [Aspirin EC 81 MG] 81 mg PO DAILY 04/22/22 Atorvastatin Calcium 20 mg PO DAILY 04/22/22 Baclofen 5 mg PO TID 04/22/22 Gabapentin [Neurontin*] 100 mg PO TID 04/22/22 Polyethylene Glycol 3350 [Miralax] 17 gm PO DAILY 04/22/22 cloNIDine HCL [Clonidine HCl] 0.1 mg PO TID 04/22/22 Ipratropium Neb [Atrovent*] 0.5 mg NEB [id number] amp 04/25/22 Jevity 1.2 Danie Liquid 240 ml FT QID bot 04/25/22 Sertraline [Zoloft*] 100 mg PO BEDTIME 04/29/22 Rivaroxaban [Xarelto*] 10 mg PO DAILY AT SUPPER 05/05/22 Acetylcysteine 600 mg IH TID 05/25/22 - Past Medical/Surgical History Diabetic: No -: Anoxic Brain Injury -: Paroxysmal sympathetic hyperactivity -: Hysterectomy -: G Tube -: Tracheostomy Psychosocial/ Personal History: Patient lives at [facility]. She has a daughter. - Family History Father Notes: unable to assess r/t pt condition - Social History Alcohol use: No CD- Drugs: No Caffeine use: No Review of Systems is unable to be obtained (Patient nonverbal.) Physical Examination - Physical Exam General: Alert, Mild distress, Confused HEENT: Atraumatic, Normocephalic, PERRLA Neck: Supple, 2+ carotid pulse no bruit, JVD not distended Respiratory: Clear to auscultation bilaterally, Diminished Cardiovascular: No edema, Other (Tachycardia.) Capillary refill: <2 Seconds Gastrointestinal: Normal bowel sounds, Soft and benign Musculoskeletal: No erythema, No tenderness, Contractures Integumentary: No rashes, No breakdown, Skin breakdown, Pressure ulcer Neurological: Normal affect, Abnormal speech Lymphatics: No axilla or inguinal lymphadenopathy - Studies Laboratory Data (last 24 hrs) 05/25/22 06:00: PT 12.2, INR 1.11, APTT 31.6 05/25/22 06:00: Sodium 139, Potassium 4.3, BUN 19 H, Creatinine 1.36 H, Glucose 153 H, Total Bilirubin 0.4, AST 59 H, ALT 49, Alkaline Phosphatase 130 H 05/25/22 06:00: WBC 13.20 H D, Hgb 11.9 L, Hct 36.3, Plt Count 557 H D Assessment and Plan - Plan --Sepsis POA. Blood cultures pending. Patient placed on antibiotics. -- Acute on chronic respiratory failure with hypoxia. Patient is trach dependent. Sputum culture pending. Continue antibiotics and neb treatment with Atrovent\albuterol. Continue trach care. --History of anoxic brain injury. Pt with trach/PEG tube and has quadriplegia. Continue PEG tube feeding. Continue supportive care. -- HLD. Continue statin. --History of constipation. Continue home medication. --Tachycardia. Patient has a history of paroxysmal sympathetic hyperactivity syndrome. Pulse rate trended down in the ER. Telemetry to monitor for any significant arrhythmia. --Hypertension. Stable. Continue home medication --Leukocytosis. Blood cultures pending. Continue antibiotics. --Anemia of chronic disease. H&H stable. We will continue to monitor hemoglobin and transfuse if less than 7.0. --History of opioid overdose. Continue supportive care. --Stage II left buttocks pressure ulcer. Wound care consult initiated. -- DVT prophylaxis with Xarelto. Discharge Plan: Fpc Plan to discharge in: Greater than 2 days - Advance Directives Does patient have a Living Will: No Does patient have a Durable POA for Healthcare: No - Code Status/Comfort Care Code Status Assessed: Yes Code Status: Full Code Physician Review: Patient Assessed, Agree with Above Assessment and Plan Critical Care: Yes
[2022-05-25] MEDS ORDERED: VANCOMYCIN 500 MG in NA CHLORIDE 0.9% 100 ML IVPB ONE (09:00)
[2022-05-25] MEDS ORDERED: HOME MED 1 EA UNK (Baclofen [Baclofen] 5 MG Tablet) PO SCH (09:00)
[2022-05-25] MEDS: INSULIN -REGULAR HUMAN 50 UNIT/0.5 ML ML SQ SCH ×4 (09:00→21:00)
[2022-05-25] MEDS ORDERED: VANCOMYCIN 1 GM in NA CHLORIDE 0.9% 250 ML IVPB SCH (09:00)
[2022-05-25] MEDS: cloNIDine HCL 0.1 MG TAB PO SCH ×3 (09:00→20:24)
[2022-05-25] MEDS ORDERED: JEVITY 1.2 CAL LIQUID 1,000 ML BOT FT SCH (09:00)
[2022-05-25] MEDS ORDERED: CEFEPIME 1 GM in NA CHLORIDE 0.9% 100 ML IV SCH (09:00)
[2022-05-25] MEDS ORDERED: ATORVASTATIN 20 MG TAB ONE (09:41)
[2022-05-25] MEDS ORDERED: ASPIRIN EC 81 MG TAB PO ONE (09:41)
[2022-05-25] MEDS ORDERED: POLYETHYL GLY 3350 17 GM/DOSE ONE (09:42)
[2022-05-25] MEDS ORDERED: NA CHLORIDE 0.9% 100 ML ONE (09:47)
[2022-05-25] MEDS: ASPIRIN EC 81 MG TAB PO SCH (09:55)
[2022-05-25] MEDS: ATORVASTATIN 20 MG TAB PO SCH (09:55)
[2022-05-25] MEDS: POLYETHYL GLY 3350 17 GM/DOSE PO SCH (09:55)
[2022-05-25] MEDS: GABAPENTIN 100 MG CAP PO SCH ×3 (09:55→21:10)
[2022-05-25] MEDS: BACLOFEN 10 MG TAB PO SCH ×3 (10:00→21:09)
--- NOTE | 2022-05-25 10:05 | RAD REPORT ---
EXAM DESCRIPTION: RAD - Chest Single View - 05/25/2022 6:33 am CLINICAL HISTORY: SOB Chest pain. COMPARISON: Chest Single View dated 05/19/2022; Chest Single View dated 05/14/2022; Chest Single View dated 05/12/2022; Chest Single View dated 05/10/2022 FINDINGS: Portable technique limits examination quality. The lungs are grossly clear. The heart is upper limit of normal in size. Tracheostomy tube tip is abo ve the ketty.
[2022-05-25 10:06] LABS: Magnesium 2.1 mg/dL (1.8-2.4); Phosphorus 4.1 mg/dL (2.5-4.9)
[2022-05-25 10:09] LABS: Potassium 4.1 mmol/L (3.5-5.1)
[2022-05-25 10:15] LABS: Troponin High Sensitivity 65.5 pg/mL (<58.9)
[2022-05-25 10:37] VITALS: BMI 25.4
[2022-05-25] MEDS: JEVITY 1.2 CAL LIQUID 1,000 ML BOT FT SCH ×3 (11:50→23:17)
[2022-05-25] MEDS: IPRATROPIUM BROM 0.5MG/2.5ML NEB SCH ×2 (13:40→19:55)
[2022-05-25] MEDS ORDERED: ALBUTEROL 2.5 MG/3 ML NEB SOL NEB SCH ×2 (14:00→20:00)
[2022-05-25] MEDS: RIVAROXABAN 10 MG TABLET PO SCH (16:35)
[2022-05-25] MEDS: CEFEPIME 1 GM in NA CHLORIDE 0.9% 100 ML IV SCH (21:09)
[2022-05-25] MEDS: SERTRALINE HCL 100 MG TAB PO SCH (21:10)
[2022-05-26] MEDS: INSULIN -REGULAR HUMAN 50 UNIT/0.5 ML ML SQ SCH ×5 (00:56→17:50)
[2022-05-26] MEDS: IPRATROPIUM BROM 0.5MG/2.5ML NEB SCH ×4 (01:50→20:59)
[2022-05-26 04:18] LABS: Absolute Lymphocytes (CBC) 1.3 K/uL (0.7-4.9); Hematocrit 27.1 % (36.0-45.0); Lymphocytes % 25.5 % (15.3-44.8); MCV 85.1 fL (80-100); MPV 7.3 fL (7.6-11.3); RBC Red Blood Cell Count 3.18 M/uL (3.86-4.86)
[2022-05-26 04:32] LABS: Potassium 3.8 mmol/L (3.5-5.1)
[2022-05-26 05:19] LABS: Calcium Oxalate Crystals- Ur Few /HPF (None Seen); Specific Gravity 1.026 (1.005-1.030); Urine Bacteria <20 /HPF (<20); Urine Bilirubin NEGATIVE (Negative); Urine Blood Negative (Negative); Urine Clarity Turbid (Clear); Urine Color Yellow (Yellow); Urine Glucose NEGATIVE (Negative); Urine Mucus 2+ /HPF (None Seen); Urine Protein TRACE (Negative); Urine Urobilinogen Normal (Normal); Urine pH 5.5 (5.0-7.0)
[2022-05-26] MEDS: JEVITY 1.2 CAL LIQUID 1,000 ML BOT FT SCH ×3 (05:50→17:29)
--- NOTE | 2022-05-26 06:25 | P.PN ---
Date of Service: 05/26/22 Subjective: no acute events overnight, stable afebrile ROS: 10 point ROS unable to be obtained Physical exam GEN: awake, alert HEENT: Normal conjunctiva, sclera anicteric; nonverbal CV: Regular rate and rhythm, no edema Pulm: Non-labored respirations on trach ABD: Soft, nontender, nondistended, G tube in place Integumentary: No rashes, +stage 2 pressure ulcer on buttocks Neuro: nonverbal, blinks / opens eyes to answer questions Problem List Sepsis vs paroxysmal sympathetic hyperactivity episode possible aspiration History of MRSA Left lower lobe atelectasis, chronic History of anoxic Brain Injury Tracheostomy dependent Quadriplegic unclear etiology of infection. CXR clear no obvious source possibly having paroxysmal sympathetic hyperactivity episode empiric antibiotics f/u cultures afebrile no leukocytosis today ID consulted wean O2 as tolerated continue tracheal suctioning avoid albuterol overall seems to be close to baseline when recently discharged /stable continue chronic meds continue PEG tube feeds family requesting ST/PT/OT stage 2 buttock pressure ulcer, worsened in last 2 days patient has been out of hospital VTE: xarelto Code: full Dispo: back to [facility] ~2-3 days Time Spent Managing Pts Care (In Minutes): 35
[2022-05-26] MEDS: CEFEPIME 1 GM in NA CHLORIDE 0.9% 100 ML IV SCH ×2 (07:57→20:46)
[2022-05-26] MEDS: cloNIDine HCL 0.1 MG TAB PO SCH ×3 (07:59→21:00)
[2022-05-26] MEDS: GABAPENTIN 100 MG CAP PO SCH ×3 (07:59→20:46)
[2022-05-26] MEDS: ASPIRIN EC 81 MG TAB PO SCH (07:59)
[2022-05-26] MEDS: BACLOFEN 10 MG TAB PO SCH ×3 (08:00→20:46)
[2022-05-26] MEDS: ATORVASTATIN 20 MG TAB PO SCH (08:00)
[2022-05-26] MEDS: POLYETHYL GLY 3350 17 GM/DOSE PO SCH (08:01)
--- NOTE | 2022-05-26 09:13 | RAD REPORT ---
EXAM DESCRIPTION: CT - Thorax Wo Con - 05/26/2022 8:58 am CLINICAL HISTORY: hypoxia, possible aspiration, h/o mucous plugging COMPARISON: Thorax Wo Con dated 05/06/2022; Chest Single View dated 05/25/2022 TECHNIQUE: Axial 5 mm thick images of the chest were obtained without IV contrast. All CT scans are performed using dose optimization technique as appropriate and may include automated exposure control or mA/KV adjustment according to patient size. FINDINGS: Left lower lobe atelectasis and parenchymal opacification have improved. Bronchial wall th ickening and segmental bronchus mucous plugging identified. Left upper lobe is clear. No new or progr essive right lung field finding. No pleural thickening or pleural effusion. No pneumothorax. No abnormal mediastinal or hilar masses or lymphadenopathy seen. No gross aortic or pulmonary artery abnormality. Heart size is normal. Assessment is limited in the absence of IV contrast. No chest wall mass or abnormal axillary lymphadenopathy. Trach tube is in place well positioned. IMPRESSION: Left lower lobe atelectasis and lung parenchymal opacification have improved since 05/06 imaging. Left lower lobe bronchial wall thickening and mucous plugging changes are still evident.
[2022-05-26] MEDS: HYDROCODONE/APAP 5/325 MG TAB PO PRN ×2 (09:15→17:18)
[2022-05-26] MEDS ORDERED: INSULIN -REGULAR HUMAN 50 UNIT/0.5 ML ML SQ SCH (10:00)
--- NOTE | 2022-05-26 13:59 | EKG ---
Test Date: 2022-05-25 Test Time: 06:15:22 [employer] Mechanic: RONY MEASUREMENT RESULTS: Intervals: Rate: 133 ID: [id number] QRSD: 70 QT: 386 QTc: 574 [place]: P: 79 ID: [id number] QRS: 81 T: 78 INTERPRETIVE STATEMENTS: Sinus tachycardia Right atrial enlargement Cannot rule out Anterior infarct, age undetermined Abnormal ECG Compared to ECG 05/06/2022 18:12:02 Atrial abnormality now present Right-axis deviation no longer present Myocardial infarct finding still present Electronically Signed On 05-26-22 13:58:13 CDT by Eddie Freeman
[2022-05-26] MEDS: RIVAROXABAN 10 MG TABLET PO SCH (17:18)
[2022-05-26] MEDS ORDERED: METOPROLOL TARTRATE 5 MG/5 ML INJ IV ONE (18:52)
[2022-05-26] MEDS ORDERED: MIDAZOLAM HCL 2 MG/2 ML INJ IV ONE (19:41)
[2022-05-26] MEDS: SERTRALINE HCL 100 MG TAB PO SCH (20:46)
[2022-05-26] MEDS ORDERED: VANCOMYCIN 1 GM in NA CHLORIDE 0.9% 250 ML IVPB SCH (21:00)
[2022-05-27] MEDS: JEVITY 1.2 CAL LIQUID 1,000 ML BOT FT SCH ×5 (00:09→22:08)
[2022-05-27] MEDS: IPRATROPIUM BROM 0.5MG/2.5ML NEB SCH ×4 (01:58→20:10)
[2022-05-27 05:12] LABS: Absolute Lymphocytes (CBC) 1.4 K/uL (0.7-4.9); Hematocrit 28.8 % (36.0-45.0); Lymphocytes % 25.9 % (15.3-44.8); MCV 83.8 fL (80-100); MPV 7.6 fL (7.6-11.3); RBC Red Blood Cell Count 3.43 M/uL (3.86-4.86)
[2022-05-27 05:35] LABS: Albumin 2.9 g/dL (3.4-5.0); Bilirubin Total 0.3 mg/dL (0.2-1.0); Magnesium 2.2 mg/dL (1.8-2.4); Potassium 3.8 mmol/L (3.5-5.1); Protein, Total 7.2 g/dL (6.4-8.2)
[2022-05-27] MEDS: INSULIN -REGULAR HUMAN 50 UNIT/0.5 ML ML SQ SCH ×4 (05:57→17:05)
--- NOTE | 2022-05-27 06:08 | P.PN ---
Date of Service: 05/27/22 Subjective: patient was tearful last night, became tachycardic; valium given with improvement; suspected paroxysmal sympathetic hyperactivity ROS: 10 point ROS unable to be obtained Physical exam GEN: awake, alert HEENT: Normal conjunctiva, sclera anicteric; nonverbal CV: Regular rate and rhythm, no edema Pulm: Non-labored respirations on trach - 5L ABD: Soft, nontender, nondistended, G tube in place Integumentary: No rashes, +stage 2 pressure ulcer on buttocks Neuro: nonverbal, blinks / opens eyes to answer questions Problem List Sepsis vs paroxysmal sympathetic hyperactivity episode possible aspiration History of MRSA Left lower lobe atelectasis, chronic History of anoxic Brain Injury Tracheostomy dependent Quadriplegic Stage 2 pressure ulcer on buttocks suspect respiratory distress / change in vitals secodnary to mucus plug and paroxysmal hyperactivity episode no obvious source on CXR, urine without bacteria CT chest (05/26): stable from prior, slight improvement, no evidence of acute process possibly having paroxysmal sympathetic hyperactivity episode empiric antibiotic for now - cefepime - continue for 7 days f/u cultures - negative so far afebrile no leukocytosis ID consulted wean O2 as tolerated continue tracheal suctioning avoid albuterol overall seems to be close to baseline when recently discharged /stable continue chronic meds continue PEG tube feeds Daughter requesting ST/PT/OT - unclear if understands the prognosis. Prognosis was explained during prior episode by myself and further by Neurology continue with full code per daughter stage 2 buttock pressure ulcer, worsened in last 2 days patient has been out of hospital VTE: xarelto Code: full Dispo: back to [place] ~2-3 days Time Spent Managing Pts Care (In Minutes): 35
[2022-05-27] MEDS: GABAPENTIN 100 MG CAP PO SCH ×3 (08:44→22:07)
[2022-05-27] MEDS: cloNIDine HCL 0.1 MG TAB PO SCH ×3 (08:44→22:06)
[2022-05-27] MEDS: ATORVASTATIN 20 MG TAB PO SCH (08:44)
[2022-05-27] MEDS: ASPIRIN EC 81 MG TAB PO SCH (08:44)
[2022-05-27] MEDS: CEFEPIME 1 GM in NA CHLORIDE 0.9% 100 ML IV SCH ×2 (08:44→22:07)
[2022-05-27] MEDS: BACLOFEN 10 MG TAB PO SCH ×3 (08:45→22:07)
[2022-05-27] MEDS: POLYETHYL GLY 3350 17 GM/DOSE PO SCH (08:45)
[2022-05-27] MEDS ORDERED: POTASSIUM 25 MEQ EFFERV TAB PO ONE (09:18)
[2022-05-27] MEDS: RIVAROXABAN 10 MG TABLET PO SCH (17:05)
--- NOTE | 2022-05-27 18:51 | CON ---
History Of Present Illness: This is one of multiple admissions of this patient for respiratory distr ess and questionable sepsis. Patient is a 46-year-old female with severe anoxic brain injury, trach dependent, PEG tube in place, coming in with shortness of breath. Patient was empirically started on IV antibiotics, cefepime. Chest x-ray does not show any new infiltrates. Patient since admission h as improved after the deplugging of her mucus from the trach. Past Medical History: Anoxic brain injury, paroxysmal sympathetic hyperactivity, hysterectomy, G-tub e placement, tracheostomy. Social History: Nonsmoker, nondrinker. Family History: Noncontributory. Medications: Cefepime. See MAR for other medications. Allergies: NO KNOWN DRUG ALLERGIES. Review of Systems: Unable to obtain. Physical Examination: General: This is a 46-year-old female, lying in ICU bed, not in any acute distress. On 5 L oxygen d oing 98% sat. Vital Signs: Temperature 98, pulse 89, respirations 16, blood pressure 114/80. HEENT: Unremarkable. Neck: Supple: Basal crackles. HEART: S1, S2. Regular. Abdomen: Soft, nontender. Bowel sounds present. Extremities: Trace edema. Laboratory Data: Shows WBC 5.5, down from 13; hemoglobin 9.7; platelets are 387. Chemistry shows so dium 139, potassium 3.8, chloride 105, bicarb 28, BUN 16, creatinine 0.5, glucose 115. Albumin is 2. 9. Procal is 0.77. Micro Data: Blood cultures on 05/25, negative to date. Sputum cultures done on May 26, negative to date. Assessment And Plan: Respiratory distress, most likely secondary to mucus plug with possible obstruc tive pneumonitis. Continue cefepime total of 7 days. Monitor for signs for infection with fever and WBC trend. Prognosis is guarded. We will follow patient as needed. Thank you Dr. Quintero for consult. NF/MODL Voice ID: [id number] Report ID: [id number]
[2022-05-27] MEDS: SERTRALINE HCL 100 MG TAB PO SCH (22:07)
[2022-05-28] MEDS: IPRATROPIUM BROM 0.5MG/2.5ML NEB SCH ×4 (01:45→20:40)
[2022-05-28 05:20] LABS: Absolute Lymphocytes (CBC) 1.5 K/uL (0.7-4.9); Hematocrit 27.5 % (36.0-45.0); Lymphocytes % 33.2 % (15.3-44.8); MCV 82.9 fL (80-100); MPV 7.4 fL (7.6-11.3); RBC Red Blood Cell Count 3.32 M/uL (3.86-4.86)
[2022-05-28 05:37] LABS: Potassium 3.9 mmol/L (3.5-5.1)
[2022-05-28] MEDS: JEVITY 1.2 CAL LIQUID 1,000 ML BOT FT SCH ×3 (06:00→17:25)
[2022-05-28] MEDS: INSULIN -REGULAR HUMAN 50 UNIT/0.5 ML ML SQ SCH ×4 (06:00→17:23)
--- NOTE | 2022-05-28 06:11 | P.PN ---
Date of Service: 05/28/22 Subjective: stable occasional tachycardia/diaphoresis - more consistent with paroxysmal hyperactivity syndrome ROS: 10 point ROS unable to be obtained Physical exam GEN: awake, alert HEENT: Normal conjunctiva, sclera anicteric; nonverbal CV: Regular rate and rhythm, no edema Pulm: Non-labored respirations on trach collar ABD: Soft, nontender, nondistended, G tube in place, no surrounding erythema/drainage Integumentary: No rashes, +stage 2 pressure ulcer on buttocks Neuro: nonverbal, blinks / opens eyes to answer questions Problem List Sepsis vs paroxysmal sympathetic hyperactivity episode possible aspiration History of MRSA Left lower lobe atelectasis, chronic History of anoxic Brain Injury Tracheostomy dependent Quadriplegic Stage 2 pressure ulcer on buttocks suspect respiratory distress / change in vitals secodnary to mucus plug and paroxysmal hyperactivity episode no obvious source on CXR, urine without bacteria CT chest (05/26): stable from prior, slight improvement, no evidence of acute process possibly having paroxysmal sympathetic hyperactivity episode empiric antibiotic for now - cefepime - continue for 7 days f/u cultures - negative so far afebrile, no leukocytosis ID consulted wean O2 as tolerated continue tracheal suctioning avoid albuterol overall seems to be close to baseline when recently discharged /stable continue chronic meds continue PEG tube feeds - <= 5ml residual Daughter requested ST/PT/OT - unclear if understands the prognosis. Prognosis was explained during prior episode by myself and further by Neurology continue with full code per daughter stage 2 buttock pressure ulcer, worsened in last 2 days patient has been out of hospital VTE: xarelto Code: full Dispo: back to [facility] ~2 days Time Spent Managing Pts Care (In Minutes): 35
[2022-05-28] MEDS: cloNIDine HCL 0.1 MG TAB PO SCH ×3 (09:28→21:15)
[2022-05-28] MEDS: GABAPENTIN 100 MG CAP PO SCH ×3 (09:28→21:17)
[2022-05-28] MEDS: BACLOFEN 10 MG TAB PO SCH ×3 (09:29→21:16)
[2022-05-28] MEDS: ATORVASTATIN 20 MG TAB PO SCH (09:29)
[2022-05-28] MEDS: ASPIRIN EC 81 MG TAB PO SCH (09:29)
[2022-05-28] MEDS: POLYETHYL GLY 3350 17 GM/DOSE PO SCH (09:30)
[2022-05-28] MEDS: CEFEPIME 1 GM in NA CHLORIDE 0.9% 100 ML IV SCH ×2 (09:30→21:17)
[2022-05-28] MEDS ORDERED: POTASSIUM 25 MEQ EFFERV TAB PO ONE (12:00)
[2022-05-28] MEDS: RIVAROXABAN 10 MG TABLET PO SCH (17:25)
[2022-05-28] MEDS: SERTRALINE HCL 100 MG TAB PO SCH (21:17)
[2022-05-29] MEDS: JEVITY 1.2 CAL LIQUID 1,000 ML BOT FT SCH ×4 (00:35→18:08)
[2022-05-29] MEDS: IPRATROPIUM BROM 0.5MG/2.5ML NEB SCH ×4 (02:20→20:10)
[2022-05-29 05:47] LABS: Absolute Lymphocytes (CBC) 1.2 K/uL (0.7-4.9); Hematocrit 33.3 % (36.0-45.0); Lymphocytes % 21.1 % (15.3-44.8); MCV 83.5 fL (80-100); MPV 7.7 fL (7.6-11.3); RBC Red Blood Cell Count 3.99 M/uL (3.86-4.86)
[2022-05-29 05:49] LABS: Potassium 4.1 mmol/L (3.5-5.1)
[2022-05-29] MEDS: INSULIN -REGULAR HUMAN 50 UNIT/0.5 ML ML SQ SCH ×2 (06:00)
--- NOTE | 2022-05-29 06:00 | P.PN ---
Date of Service: 05/29/22 Subjective: stable no acute events overnight ROS: 10 point ROS unable to be obtained Physical exam GEN: awake, alert HEENT: Normal conjunctiva, sclera anicteric; nonverbal CV: Regular rate and rhythm, no edema Pulm: Non-labored respirations on trach collar ABD: Soft, nontender, nondistended, G tube in place, no surrounding erythema/drainage Neuro: nonverbal, blinks / opens eyes to answer questions garza in place Problem List Sepsis vs paroxysmal sympathetic hyperactivity episode possible aspiration History of MRSA Left lower lobe atelectasis, chronic History of anoxic Brain Injury Tracheostomy dependent Quadriplegic Stage 2 pressure ulcer on buttocks suspect respiratory distress / change in vitals secodnary to mucus plug and paroxysmal hyperactivity episode no obvious source on CXR, urine without bacteria CT chest (05/26): stable from prior, slight improvement, no evidence of acute process likely having paroxysmal sympathetic hyperactivity episode empiric antibiotic for now - cefepime - continue for 7 days f/u cultures - negative so far sputum: +MRSA, prior sputum culture grew MRSA, patient afebrile, no leukocytosis, this is likely colonization ID consulted wean O2 as tolerated continue tracheal suctioning avoid albuterol - trigger paroxysmal sympathetic hyperactivity overall seems to be close to baseline when recently discharged /stable continue chronic meds continue PEG tube feeds - <= 5ml residual Daughter requested ST/PT/OT - unclear if understands the prognosis. Prognosis was explained during prior episode by myself and further by Neurology continue with full code per daughter stage 2 buttock pressure ulcer, worsened in last 2 days patient has been out of hospital VTE: xarelto Code: full Dispo: back to [facility] Monday if remains stable; nobody to accept her over holiday weekend Time Spent Managing Pts Care (In Minutes): 35
[2022-05-29] MEDS: POLYETHYL GLY 3350 17 GM/DOSE PO SCH (07:30)
[2022-05-29] MEDS: cloNIDine HCL 0.1 MG TAB PO SCH ×3 (08:35→20:16)
[2022-05-29] MEDS: ATORVASTATIN 20 MG TAB PO SCH (08:35)
[2022-05-29] MEDS: BACLOFEN 10 MG TAB PO SCH ×3 (08:35→20:16)
[2022-05-29] MEDS: CEFEPIME 1 GM in NA CHLORIDE 0.9% 100 ML IV SCH ×2 (08:35→20:17)
[2022-05-29] MEDS: GABAPENTIN 100 MG CAP PO SCH ×3 (08:35→20:15)
[2022-05-29] MEDS: ASPIRIN EC 81 MG TAB PO SCH (08:35)
[2022-05-29] MEDS: RIVAROXABAN 10 MG TABLET PO SCH (16:37)
[2022-05-29] MEDS: SERTRALINE HCL 100 MG TAB PO SCH (20:16)
[2022-05-30] MEDS: IPRATROPIUM BROM 0.5MG/2.5ML NEB SCH ×4 (02:10→19:45)
[2022-05-30] MEDS: JEVITY 1.2 CAL LIQUID 1,000 ML BOT FT SCH ×4 (04:04→17:01)
[2022-05-30 05:01] LABS: Absolute Lymphocytes (CBC) 1.4 K/uL (0.7-4.9); Hematocrit 30.4 % (36.0-45.0); Lymphocytes % 30.9 % (15.3-44.8); MPV 7.6 fL (7.6-11.3); RBC Red Blood Cell Count 3.61 M/uL (3.86-4.86)
--- NOTE | 2022-05-30 06:38 | P.PN ---
Date of Service: 05/30/22 Subjective: stable, no fevers, no paroxysmal sympathetic hyperactivity episodes Garza removed yesterday ROS: 10 point ROS unable to be obtained Physical exam GEN: awake, alert HEENT: Normal conjunctiva, sclera anicteric; nonverbal CV: Regular rate and rhythm, no edema Pulm: Non-labored respirations on trach collar ABD: Soft, nontender, nondistended, G tube in place, no surrounding erythema/drainage Neuro: nonverbal, blinks / opens eyes to answer questions garza in place Problem List Sepsis vs paroxysmal sympathetic hyperactivity episode possible mucous plugging History of MRSA Left lower lobe atelectasis, chronic History of anoxic Brain Injury Tracheostomy dependent Quadriplegic Stage 2 pressure ulcer on buttocks suspect respiratory distress / change in vitals secondary to mucus plug and/or paroxysmal hyperactivity episode no obvious source on CXR, urine without bacteria cultures remains negative. Sputum: +MRSA, only on cefepime. this is colonization; had prior +MRSA on previous hospitalization CT chest (05/26): stable from prior, slight improvement, no evidence of acute process likely having paroxysmal sympathetic hyperactivity episode empiric antibiotic for now - cefepime - continue for 7 days - end date: 05/31 ID consulted continue tracheal suctioning avoid albuterol - trigger paroxysmal sympathetic hyperactivity continue ipratropium overall seems to be close to baseline when recently discharged /stable continue chronic meds continue PEG tube feeds - <= 5ml residual Daughter requested ST/PT/OT - unclear if understands the prognosis. Prognosis was explained during prior episode by myself and further by Neurology continue with full code per daughter stage 2 buttock pressure ulcer, worsened in only 2 days patient has been out of hospital VTE: xarelto Code: full Dispo: back to [facility] tomorrow, completes 7 days of antibiotics on 05/31 Time Spent Managing Pts Care (In Minutes): 35
--- NOTE | 2022-05-30 07:20 | RAD REPORT ---
EXAM DESCRIPTION: Raphael Single View05/30/2022 6:58 am CLINICAL HISTORY: Chest pain COMPARISON: May 26 FINDINGS: Mild left lower lobe atelectasis appears mostly resolved Right lung appears clear of acute infiltrate. Heart is normal size. Tracheostomy tube in place
[2022-05-30] MEDS: GABAPENTIN 100 MG CAP PO SCH ×3 (08:20→21:28)
[2022-05-30] MEDS: BACLOFEN 10 MG TAB PO SCH ×3 (08:20→21:28)
[2022-05-30] MEDS: cloNIDine HCL 0.1 MG TAB PO SCH ×3 (08:20→21:27)
[2022-05-30] MEDS: ATORVASTATIN 20 MG TAB PO SCH (08:20)
[2022-05-30] MEDS: CEFEPIME 1 GM in NA CHLORIDE 0.9% 100 ML IV SCH ×2 (08:21→21:28)
[2022-05-30] MEDS: ASPIRIN EC 81 MG TAB PO SCH (08:21)
[2022-05-30] MEDS: POLYETHYL GLY 3350 17 GM/DOSE PO SCH (08:21)
[2022-05-30] MEDS: HYDROCODONE/APAP 5/325 MG TAB PO PRN (11:33)
[2022-05-30] MEDS: RIVAROXABAN 10 MG TABLET PO SCH (17:01)
[2022-05-30] MEDS: SERTRALINE HCL 100 MG TAB PO SCH (21:28)
[2022-05-31] MEDS: JEVITY 1.2 CAL LIQUID 1,000 ML BOT FT SCH ×2 (00:13→06:20)
[2022-05-31] MEDS: IPRATROPIUM BROM 0.5MG/2.5ML NEB SCH ×2 (01:20→08:54)
[2022-05-31] MEDS: cloNIDine HCL 0.1 MG TAB PO SCH ×2 (08:25→14:06)
[2022-05-31] MEDS: ATORVASTATIN 20 MG TAB PO SCH (08:25)
[2022-05-31] MEDS: ASPIRIN EC 81 MG TAB PO SCH (08:25)
[2022-05-31] MEDS: GABAPENTIN 100 MG CAP PO SCH ×2 (08:25→14:06)
[2022-05-31] MEDS: POLYETHYL GLY 3350 17 GM/DOSE PO SCH (08:26)
[2022-05-31] MEDS: BACLOFEN 10 MG TAB PO SCH ×2 (08:26→14:06)
[2022-05-31] MEDS: CEFEPIME 1 GM in NA CHLORIDE 0.9% 100 ML IV SCH (08:26)
[2022-05-31 12:06] VITALS: BP 110/77; TEMP 97.4
--- NOTE | 2022-05-31 12:18 | P.DS ---
Admission Date: 05/25/22 Discharge Date: 05/31/22 Disposition: TRANSFER TO ASSISTED Discharge Condition: FAIR Reason for Admission: Dyspnea Brief History of Present Illness: Patient is a 46-year-old female with a past medical history significant for anoxic brain injury, constipation, trach dependence with PEG tube was transferred from the long term to the emergency department due to reported dyspnea and difficulty breathing. Patient nonverbal, contracted in upper and lower extremities. Per nursing staff patient had difficulty breathing despite being suctioned. Also reported are associated signs and symptoms of fever and cough. Chest x-ray reported as clear. Patient was hospitalized for further management. Hospital Course: Problem List Sepsis vs paroxysmal sympathetic hyperactivity episode possible mucous plugging History of MRSA Left lower lobe atelectasis, chronic History of anoxic Brain Injury Tracheostomy dependent Quadriplegic Stage 2 pressure ulcer on buttocks Respiratory distress / change in vitals secondary to mucus plug and/or paroxysmal hyperactivity episode no obvious source on CXR, urine without bacteria cultures remains negative. Sputum: +MRSA, only on cefepime. this is colonization; had prior +MRSA on previous hospitalization CT chest (05/26): stable from prior, slight improvement, no evidence of acute process She has been experiencing paroxysmal sympathetic hyperactivity episode Patient was treated with empiric cefepime and completed 7 days of treatment. Seen by ID who assisted with management. Periodic tracheal suctioning avoided albuterol which may trigger paroxysmal sympathetic hyperactivity She was treated with ipratropium continued chronic meds continued PEG tube feeds - <= 5ml residual Daughter requested ST/PT/OT - unclear if understands the prognosis. Prognosis was explained during prior episode by myself and further by Neurology continue with full code per daughter stage 2 buttock pressure ulcer: wound care done She is clinically stable for discharge. Vital Signs/Physical Exam: Temp Pulse Resp BP Pulse Ox 97.4 F 83 17 110/77 96 05/31/22 08:00 05/31/22 12:00 05/31/22 12:00 05/31/22 12:00 05/31/22 08:00 General: Other (Awake) Neck: Other (Tracheostomy collar) Respiratory: Clear to auscultation bilaterally, Normal air movement Cardiovascular: No edema, Regular rate/rhythm, Normal S1 S2 Gastrointestinal: Soft and benign, Non-distended Musculoskeletal: No swelling Integumentary: Pressure ulcer (Sacral stage II) Neurological: Other (Quadriplegic) Laboratory Data at Discharge: WBC 4.60 K/uL (4.3-10.9) D 05/30/22 04:30 Hgb 10.2 g/dL (12.0-15.0) L 05/30/22 04:30 Hct 30.4 % (36.0-45.0) L 05/30/22 04:30 Plt Count 401 K/uL (152-406) 05/30/22 04:30 PT 12.2 SECONDS (9.5-12.5) 05/25/22 06:00 INR 1.11 05/25/22 06:00 APTT 31.6 SECONDS (24.3-36.9) 05/25/22 06:00 Sodium 138 mmol/L (136-145) 05/30/22 04:30 Potassium 4.0 mmol/L (3.5-5.1) 05/30/22 04:30 BUN 13 mg/dL (7-18) 05/30/22 04:30 Creatinine 0.53 mg/dL (0.55-1.3) L 05/30/22 04:30 Glucose 116 mg/dL (74-106) H 05/30/22 04:30 Phosphorus 4.0 mg/dL (2.5-4.9) 05/27/22 04:25 Magnesium 2.0 mg/dL (1.8-2.4) 05/28/22 04:45 Total Bilirubin 0.3 mg/dL (0.2-1.0) 05/27/22 04:25 AST 36 U/L (15-37) 05/27/22 04:25 ALT 39 U/L (12-78) 05/27/22 04:25 Alkaline Phosphatase 94 U/L (45-117) 05/27/22 04:25 Triglycerides 107 mg/dL (<150) 05/25/22 09:35 Cholesterol 146 mg/dL (<200) 05/25/22 09:35 HDL Cholesterol 46 mg/dL (40-60) 05/25/22 09:35 Cholesterol/HDL Ratio 3.17 05/25/22 09:35 Home Medications: Aspirin [Aspirin EC 81 MG] 81 mg PO DAILY 04/22/22 Atorvastatin Calcium 20 mg PO DAILY 04/22/22 Baclofen 5 mg PO TID 04/22/22 Gabapentin [Neurontin*] 100 mg PO TID 04/22/22 Polyethylene Glycol 3350 [Miralax] 17 gm PO DAILY 04/22/22 cloNIDine HCL [Clonidine HCl] 0.1 mg PO TID 04/22/22 Ipratropium Neb [Atrovent*] 0.5 mg NEB [id number] amp 04/25/22 Jevity 1.2 Danie Liquid 240 ml FT QID bot 04/25/22 Sertraline [Zoloft*] 100 mg PO BEDTIME 04/29/22 Rivaroxaban [Xarelto*] 10 mg PO DAILY AT SUPPER 05/05/22 Acetylcysteine 600 mg IH TID 05/25/22 Physician Discharge Instructions: Patient with paroxysmal hyperactivity syndrome, occasionally and unexpectedly will have tachycardia, tachypnea, hyperthermia temporarily due to her brain injury. Improves with PRN benzodiazepine +/- low dose beta lala if blood pressure will tolerate. Avoid albuterol, seems to trigger these episodes - noted in initial hospitalization and improved when stopped here on prior hospitalizations. Please check gastric residual before feeding. Please hold tube feed for gastric residual >150 ml. Recheck in 1 hour and resume feeding if residual is less than 150 ml, otherwise skip meal to the next one. Frequent turning every 2 hours to avoid pressure ulcers. Diet: Tube feed Followup: Unknown,U [Primary Care Provider] - Time spent managing pt's care (in minutes): 35
[2022-05-31 12:40] VITALS: O2SAT 97
--- NOTE | 2022-05-31 13:58 | PN ---
Subjective: The patient is lying in bed. Being transferred back to senior care. Objective: Vitals are stable. The patient is not in any distress. No new changes in examination. Assessment And Plan: Respiratory failure. Continue cefepime for 1 more week. Continue pulmonary hy giene. Prognosis is guarded. We will follow the patient as needed. NF/MODL Voice ID: [id number] Report ID: [id number]
[2022-05-31] MEDS ORDERED: HYDROCODONE/APAP 5/325 MG TAB PO ONE (15:05)
--- NOTE | 2022-06-01 08:07 | PN ---
Subjective: The patient is lying in bed. No new acute event. Chart reviewed. Objective: Vital Signs: Temperature 97.9, pulse 58, respirations 14, blood pressure 109/76. Lungs: Basal crackles. Heart: S1, S2 regular. Abdomen: Soft, nontender. Bowel sounds present. Extremities: No edema. Laboratory Data: WBC 4.6, hemoglobin 10.2, platelets 401. Assessment/plan: Respiratory failure, pneumonia. The patient improving on cefepime and we will cont inue total course of 10 days. Continue supportive care and monitor for signs of infection with WBC a nd fever trend. No other recommendation at this time. NF/MODL Voice ID: [id number] Report ID: [id number]
== END 2022-05-31 15:20 | DRG 871 ==
LOC: ER 05:38 → ERHOLD 08:24 → 3RD-ICU 13:15
PROVIDERS: ADMIT Hospitalist; ATTEND Hospitalist
PROC: 06HY33Z Insertion of Infusion Device into Lower Vein, Percutaneous Approach (ICD-10-PCS; principal; 2022-05-25)
DX: A41.9 Sepsis, unspecified organism (principal); G82.50 Quadriplegia, unspecified; J96.21 Acute and chronic respiratory failure with hypoxia; J18.9 Pneumonia, unspecified organism; J98.11 Atelectasis; G93.1 Anoxic brain damage, not elsewhere classified; G90.8 Other disorders of autonomic nervous system; Z93.0 Tracheostomy status; L89.302 Pressure ulcer of unspecified buttock, stage 2; Z93.1 Gastrostomy status; E78.5 Hyperlipidemia, unspecified; I10 Essential (primary) hypertension; D63.8 Anemia in other chronic diseases classified elsewhere; Z22.322 Carrier or suspected carrier of Methicillin resistant Staphylococcus aureus; Z20.822 Contact with and (suspected) exposure to COVID-19
CPT/HCPCS: 36415; 51702; 71045; 71250; 80048; 80053; 80061; 80202; 81001; 81003; 81015; 82805; 82947; 83036; 83605; 83735; 83880; 84100; 84145; 84484; 85025; 85610; 85730; 87040; 87070; 87077; 87086; 87088; 87186; 87205; 92610; 93005; 94640; 96365; 96366; 96375; 97161; 97165; 99251; 99285; J0692; J2250; J3370; J7030; J7040; J7050; U0003

== ENCOUNTER 2022-06-08 16:25 | Inpatient (IN) | payer OTHER, SELFPAY ==
--- OUTSIDE RECORDS SUMMARY | 2022-06-08 16:36 | XMS REPORT | Continuity of Care Document ---
:1975 Author Organization [facility] t Address [address] [place] [address] Care Team Providers Name Role Phone ANAMARIA_KARIN_Mukund_Jaqui Attending Clinician Unavailable Magda Duval Attending Clinician [phone] Lorna Douglass Attending Clinician Unavailable TIFFANIE_Mukund_Jaqui Admitting Clinician Unavailable Manuel Rose Admitting Clinician Unavailable Payers Payer Name Policy Type Policy Number Effective Date Expiration Date S [facility] [place]ICAID - 000 [id number] - PENDING Problems This patient has no known problems. Allergies, Adverse Reactions, Alerts Allergy Allergy Status Severity Reaction(s) Onset Inactive Treating Comm ents Source Name Type Date Date Clinician No DA Active U [facility]ergy 02-09 [facility] No Known DA Active U [facility] Allergie 02-09 Moca s 00:00: Healthc [address] Medications This patient has no known medications. Procedures Procedure Date / Time Performed Performing Clinician Adiel ford [id number] 2022-03-21 00:00:00 HERLINDA [facility] [id number] 2022-03-20 00:00:00 MAIAN01 [facility] [id number] 2022-02-17 00:00:00 LEESE.01 [facility] [id number] 2022-02-17 00:00:00 LEESE.01 [facility] [id number] 2022-02-17 00:00:00 LEESE.01 [facility] [id number] 2022-02-09 00:00:00 LEESE.01 [facility] Encounters Start End Encounter Admission Attending Care Care Encounter Source Date/Time Date/Time Type Type Clinicians Facility Department ID 2022-06-07 2022-06-07 Outpatient [facility]Tod PRIV PRIV [id number] [facility] 00:00:00 00:00:00 d_J [id number] Medica l 2022-05-24 2022-05-24 Outpatient Mukund, PRIV PRIV [id number] 00:00:00 00:00:00 Magda [id number] 2022-05-06 2022-05-06 Outpatient [facility]Tod PRIV PRIV [id number] [facility] 00:00:00 00:00:00 d_J [id number] Medica l 2022-04-26 2022-04-26 Outpatient [facility]_Tod PRIV PRIV [id number] [facility] 00:00:00 00:00:00 d_J [id number] Medica l 2022-04-26 2022-04-26 Outpatient Mukund, PRIV PRIV [id number] 00:00:00 00:00:00 Magda [id number] 2022-04-22 2022-04-22 Outpatient [facility]Tod PRIV PRIV [id number] [facility] 00:00:00 00:00:00 d_J [id number] Medica l 2022-02-09 2022-04-20 Inpatient Lorna Pina HCANW CARDIAC [id number] [facility] 05:41:00 17:44:00 57 [facility] are [facility] 2022-02-09 2022-04-20 Inpatient Lorna Pina HCANW CARDIAC [id number] [facility] 05:41:00 17:44:00 [id number] [facility] Results Test Description Test Time Test Comments Results Result Comments Source GLUBED 2022-04-20 16:03:00 Test Item Value Reference Range Interpretation Comme nts GLUBED (test code = GLUBED) 101 MG/DL 70-105 N [id number] 11:04:00 Test Item Value Reference Range Interpretation Comments GLUBED (test code = GLUBED) 179 MG/DL 70-105 H BASIC METABOLIC [id number] 08:00:00 Test Item Value Reference Range Interpretation Comments SODIUM (test code 137 mmol/L 135-145 N = NA) POTASSIUM (test 4.0 mmol/L 3.6-5.0 N code = K) CHLORIDE (test 103 mmol/L 101-111 N code = CL) CARBON DIOXIDE 28 mmol/L 21-31 N (test code = CO2) GLUCOSE (test code 134 mg/dl 70-100 H = GLU) BLOOD UREA 10 mg/dl 6-20 N NITROGEN (test code = BUN) GLOMERULAR >=60 max >60 The estimated FILTRATION RATE estimate glomerular (test code = GFR) filtration rate is computed usingpatient ra ce, age (>18), sex, and serum creatinin e. If anyof the neede d data elements a re missing the Laboratory jarvis ot compute an estimation of t he glomerular filtration rate . CREATININE (test 0.68 mg/dL 0.44-1.03 N code = CREAT) CALCIUM (test code 9.0 mg/dL 8.5-10.5 N = CA) CBC W/AUTO [id number] 06:57:00 Test Item Value Reference Range Interpretation Comments WHITE BLOOD CELL (test code = 5.5 x10 3/uL 3.2-11.5 N WBC) RED BLOOD CELL (test code = 3.47 x10(6)/m 3.70-5.10 L RBC) HEMOGLOBIN (test code = HGB) 9.8 g/dL 12.0-15.0 L HEMATOCRIT (test code = HCT) 30.7 % 35.7-44.8 L MEAN CELL VOLUME (test code = 89 fL 80-100 N MCV) MEAN CELL HGB (test code = MCH) 28.2 pg 26.2-33.8 N MEAN CELL HGB CONCENTRATION 31.9 g/dL 30.0-34.0 N (test code = MCHC) RED CELL DISTRIBUTION WIDTH 14.0 % 11.3-14.5 N (test code = RDW) PLATELET COUNT (test code = 337 x10 3/uL 130-408 N PLT) MEAN PLATELET VOLUME (test code 9.4 fL 8.6-12.6 N = MPV) NEUTROPHIL % (test code = NT%) 55.6 % 40.0-70.0 N LYMPHOCYTE % (test code = LY%) 26.7 % 20-40 N MONOCYTE % (test code = MO%) 11.3 % 1-10 H EOSINOPHIL % (test code = EO%) 5.5 % 0.0-5.0 H BASOPHIL % (test code = BA%) 0.7 % 0.0-1.0 N NUCLEATED RBC % (test code = 0.0 % 0.0-0.9 N NRBC%) NEUTROPHIL # (test code = NT#) 3.1 x10 3/uL 1.6-7.2 N LYMPHOCYTE # (test code = LY#) 1.47 x10 3/uL 1.1-2.7 N MONOCYTE # (test code = MO#) 0.6 x10 3/uL 0.3-0.8 N EOSINOPHIL # (test code = EO#) 0.3 x10 3/uL 0.0-0.5 N IMMATURE GRANULOCYTE % (test 0.2 % 0.0-2.0 N code = IG%) BASOPHIL # (test code = BA#) 0.0 x10 3/uL 0.0-0.1 N [id number] 06:14:00 Test Item Value Reference Range Interpretation Comments GLUBED (test code = GLUBED) 106 MG/DL 70-105 H [id number] 20:22:00 Test Item Value Reference Range Interpretation Comments GLUBED (test code = GLUBED) 120 MG/DL 70-105 H [id number] 15:21:00 Test Item Value Reference Range Interpretation Comments GLUBED (test code = GLUBED) 125 MG/DL 70-105 H [id number] 11:16:00 Test Item Value Reference Range Interpretation Comments GLUBED (test code = GLUBED) 153 MG/DL 70-105 H [id number] 06:36:00 Test Item Value Reference Range Interpretation Comments GLUBED (test code = GLUBED) 135 MG/DL 70-105 H [id number] 22:08:00 Test Item Value Reference Range Interpretation Comments GLUBED (test code = GLUBED) 105 MG/DL 70-105 N [id number] 16:11:00 Test Item Value Reference Range Interpretation Comments GLUBED (test code = GLUBED) 123 MG/DL 70-105 H [id number] 12:14:00 Test Item Value Reference Range Interpretation Comments GLUBED (test code = GLUBED) 117 MG/DL 70-105 H CBC W/AUTO [id number] 06:20:00 Test Item Value Reference Range Interpretation Comments WHITE BLOOD CELL (test code = 7.8 x10 3/uL 3.2-11.5 N WBC) RED BLOOD CELL (test code = 3.90 x10(6)/m 3.70-5.10 N RBC) HEMOGLOBIN (test code = HGB) 11.2 g/dL 12.0-15.0 L HEMATOCRIT (test code = HCT) 35.4 % 35.7-44.8 L MEAN CELL VOLUME (test code = 91 fL 80-100 N MCV) MEAN CELL HGB (test code = MCH) 28.7 pg 26.2-33.8 N MEAN CELL HGB CONCENTRATION 31.6 g/dL 30.0-34.0 N (test code = MCHC) RED CELL DISTRIBUTION WIDTH 14.4 % 11.3-14.5 N (test code = RDW) PLATELET COUNT (test code = 357 x10 3/uL 130-408 N PLT) MEAN PLATELET VOLUME (test code 9.3 fL 8.6-12.6 N = MPV) NEUTROPHIL % (test code = NT%) 57.7 % 40.0-70.0 N LYMPHOCYTE % (test code = LY%) 29.9 % 20-40 N MONOCYTE % (test code = MO%) 8.7 % 1-10 N EOSINOPHIL % (test code = EO%) 2.8 % 0.0-5.0 N BASOPHIL % (test code = BA%) 0.5 % 0.0-1.0 N NUCLEATED RBC % (test code = 0.0 % 0.0-0.9 N NRBC%) NEUTROPHIL # (test code = NT#) 4.5 x10 3/uL 1.6-7.2 N LYMPHOCYTE # (test code = LY#) 2.33 x10 3/uL 1.1-2.7 N MONOCYTE # (test code = MO#) 0.7 x10 3/uL 0.3-0.8 N EOSINOPHIL # (test code = EO#) 0.2 x10 3/uL 0.0-0.5 N IMMATURE GRANULOCYTE % (test 0.4 % 0.0-2.0 N code = IG%) BASOPHIL # (test code = BA#) 0.0 x10 3/uL 0.0-0.1 N BASIC METABOLIC [id number] 06:19:00 Test Item Value Reference Range Interpretation Comments SODIUM (test code 137 mmol/L 135-145 N = NA) POTASSIUM (test 3.8 mmol/L 3.6-5.0 N code = K) CHLORIDE (test 103 mmol/L 101-111 N code = CL) CARBON DIOXIDE 26 mmol/L 21-31 N (test code = CO2) GLUCOSE (test code 144 mg/dl 70-100 H = GLU) BLOOD UREA 19 mg/dl 6-20 N NITROGEN (test code = BUN) GLOMERULAR >=60 max >60 The estimated FILTRATION RATE estimate glomerular (test code = GFR) filtration rate is computed usingpatient ra ce, age (>18), sex, and serum creatinin e. If anyof the neede d data elements a re missing the Laboratory jarvis ot compute an estimation of t he glomerular filtration rate . CREATININE (test 0.81 mg/dL 0.44-1.03 N code = CREAT) CALCIUM (test code 9.1 mg/dL 8.5-10.5 N = CA) [id number] 06:05:00 Test Item Value Reference Range Interpretation Comments GLUBED (test code = GLUBED) 128 MG/DL 70-105 H [id number] 00:55:00 Test Item Value Reference Range Interpretation Comments GLUBED (test code = GLUBED) 128 MG/DL 70-105 H - XR CHEST 1 [id number] 18:02:00 [facility] 1975 Sex: FPatient Name: JERI VILLALOBOS Unit No: [id number] EXAMS: CPT: [id number] XR CHEST 1 V [id number] STUDY: - XR CHEST 1 V INDICATION: sob and tachycardia TECHNIQUE: AP views of the chest. COMPARISON: Chest radiograph from 04/13/2022. FINDINGS: Tracheostomy cannula as seen previously. No mediastinal shift or enlargement. Normal cardiac silhouette. Mild symmetric low lung volume. Patchy opacity in left lower lung retrocardiac region which may represent pneumonia and/or atelectasis. A right infrahilar opacity is less conspicuous compared to prior exam. No definite pleural effusion or pneumothorax. IMPRESSION: 1. Persistent left lower lung patchy opacity medially which may represent atelectasis and/or pneumonia. 2. Right lower lung infrahilar opacity is less compared to prior exam. at 1802 Reported and signed by: NONI CHENEY MD CC: Lorna Douglass MD; Re Vaughn MD Technologist: Oly Deleon Time: DAP (Gy m2): Air Kerma (mGy): Trscr Dt/Tm: 04/17/2022 (1801) by:Robin Orig Print D/T: S: 04/17/2022 (1804) BATCH NO: N/A Name: JERI VILLALOBOS [facility] Phys: Ruiz Wolfe MD [address] : 1975 Age: 46 Sex: F [place], [place] [address] Loc: N.[id number] 1 Exam Date: 04/17/2022 Status: ADM IN PH: FAX: PAGE 1 Signed Report [id number] 15:58:00 Test Item Value Reference Range Interpretation Comments GLUBED (test code = GLUBED) 142 MG/DL 70-105 H [id number] 11:34:00 Test Item Value Reference Range Interpretation Comments GLUBED (test code = GLUBED) 113 MG/DL 70-105 H BASIC METABOLIC [id number] 07:39:00 Test Item Value Reference Range Interpretation Comments SODIUM (test code 134 mmol/L 135-145 L = NA) POTASSIUM (test 4.5 mmol/L 3.6-5.0 N code = K) CHLORIDE (test 100 mmol/L 101-111 L code = CL) CARBON DIOXIDE 27 mmol/L 21-31 N (test code = CO2) GLUCOSE (test code 116 mg/dl 70-100 H = GLU) BLOOD UREA 11 mg/dl 6-20 N NITROGEN (test code = BUN) GLOMERULAR >=60 max >60 The estimated FILTRATION RATE estimate glomerular (test code = GFR) filtration rate is computed usingpatient ra ce, age (>18), sex, and serum creatinin e. If anyof the neede d data elements a re missing the Laboratory jarvis ot compute an estimation of t he glomerular filtration rate . CREATININE (test 0.64 mg/dL 0.44-1.03 N code = CREAT) CALCIUM (test code 9.3 mg/dL 8.5-10.5 N = CA) CBC W/AUTO [id number] 07:21:00 Test Item Value Reference Range Interpretation Comments WHITE BLOOD CELL (test code = 6.5 x10 3/uL 3.2-11.5 N WBC) RED BLOOD CELL (test code = 4.23 x10(6)/m 3.70-5.10 N RBC) HEMOGLOBIN (test code = HGB) 11.9 g/dL 12.0-15.0 L HEMATOCRIT (test code = HCT) 37.5 % 35.7-44.8 N MEAN CELL VOLUME (test code = 89 fL 80-100 N MCV) MEAN CELL HGB (test code = MCH) 28.1 pg 26.2-33.8 N MEAN CELL HGB CONCENTRATION 31.7 g/dL 30.0-34.0 N (test code = MCHC) RED CELL DISTRIBUTION WIDTH 14.4 % 11.3-14.5 N (test code = RDW) PLATELET COUNT (test code = 374 x10 3/uL 130-408 N PLT) MEAN PLATELET VOLUME (test code 9.3 fL 8.6-12.6 N = MPV) NEUTROPHIL % (test code = NT%) 61.0 % 40.0-70.0 N LYMPHOCYTE % (test code = LY%) 26.3 % 20-40 N MONOCYTE % (test code = MO%) 8.8 % 1-10 N EOSINOPHIL % (test code = EO%) 3.1 % 0.0-5.0 N BASOPHIL % (test code = BA%) 0.5 % 0.0-1.0 N NUCLEATED RBC % (test code = 0.0 % 0.0-0.9 N NRBC%) NEUTROPHIL # (test code = NT#) 4.0 x10 3/uL 1.6-7.2 N LYMPHOCYTE # (test code = LY#) 1.70 x10 3/uL 1.1-2.7 N MONOCYTE # (test code = MO#) 0.6 x10 3/uL 0.3-0.8 N EOSINOPHIL # (test code = EO#) 0.2 x10 3/uL 0.0-0.5 N IMMATURE GRANULOCYTE % (test 0.3 % 0.0-2.0 N code = IG%) BASOPHIL # (test code = BA#) 0.0 x10 3/uL 0.0-0.1 N [id number] 05:50:00 Test Item Value Reference Range Interpretation Comments GLUBED (test code = GLUBED) 146 MG/DL 70-105 H [id number] 23:41:00 Test Item Value Reference Range Interpretation Comments GLUBED (test code = GLUBED) 103 MG/DL 70-105 N [id number] 15:36:00 Test Item Value Reference Range Interpretation Comments GLUBED (test code = GLUBED) 120 MG/DL 70-105 H [id number] 12:03:00 Test Item Value Reference Range Interpretation Comments GLUBED (test code = GLUBED) 134 MG/DL 70-105 H BASIC METABOLIC [id number] 07:51:00 Test Item Value Reference Range Interpretation Comments SODIUM (test code 137 mmol/L 135-145 N = NA) POTASSIUM (test 4.5 mmol/L 3.6-5.0 N code = K) CHLORIDE (test 103 mmol/L 101-111 N code = CL) CARBON DIOXIDE 24 mmol/L 21-31 N (test code = CO2) GLUCOSE (test code 139 mg/dl 70-100 H = GLU) BLOOD UREA 9 mg/dl 6-20 N NITROGEN (test code = BUN) GLOMERULAR >=60 max >60 The estimated FILTRATION RATE estimate glomerular (test code = GFR) filtration rate is computed usingpatient ra ce, age (>18), sex, and serum creatinin e. If anyof the neede d data elements a re missing the Laboratory jarvis ot compute an estimation of t he glomerular filtration rate . CREATININE (test 0.69 mg/dL 0.44-1.03 N code = CREAT) CALCIUM (test code 9.7 mg/dL 8.5-10.5 N = CA) CBC W/AUTO [id number] 07:48:00 Test Item Value Reference Range Interpretation Comments WHITE BLOOD CELL (test 8.1 x10 3/uL 3.2-11.5 N code = WBC) RED BLOOD CELL (test 4.41 x10(6)/m 3.70-5.10 N code = RBC) HEMOGLOBIN (test code = 12.7 g/dL 12.0-15.0 YVET TE HGB) POWELL-BRAULIO HEMATOCRIT (test code = 38.9 % 35.7-44.8 N HCT) MEAN CELL VOLUME (test 88 fL 80-100 N code = MCV) MEAN CELL HGB (test 28.8 pg 26.2-33.8 N code = MCH) MEAN CELL HGB 32.6 g/dL 30.0-34.0 N CONCENTRATION (test code = MCHC) RED CELL DISTRIBUTION 14.1 % 11.3-14.5 N WIDTH (test code = RDW) PLATELET COUNT (test 406 x10 3/uL 130-408 N code = PLT) MEAN PLATELET VOLUME 9.7 fL 8.6-12.6 N (test code = MPV) NEUTROPHIL % (test code 68.3 % 40.0-70.0 N = NT%) IMMATURE GRANULOCYTE % 0.1 % 0.0-2.0 N (test code = IG%) LYMPHOCYTE % (test code 20.9 % 20-40 N = LY%) MONOCYTE % (test code = 8.0 % 1-10 N MO%) EOSINOPHIL % (test code 2.2 % 0.0-5.0 N = EO%) BASOPHIL % (test code = 0.5 % 0.0-1.0 N BA%) NUCLEATED RBC % (test 0.0 % 0.0-0.9 N code = NRBC%) NEUTROPHIL # (test code 5.6 x10 3/uL 1.6-7.2 N = NT#) LYMPHOCYTE # (test code 1.70 x10 3/uL 1.1-2.7 N = LY#) MONOCYTE # (test code = 0.7 x10 3/uL 0.3-0.8 N MO#) EOSINOPHIL # (test code 0.2 x10 3/uL 0.0-0.5 N = EO#) BASOPHIL # (test code = 0.0 x10 3/uL 0.0-0.1 N BA#) [id number] 06:59:00 Test Item Value Reference Range Interpretation Comments GLUBED (test code = GLUBED) 125 MG/DL 70-105 H [id number] 00:00:00 Test Item Value Reference Range Interpretation Comments GLUBED (test code = GLUBED) 125 MG/DL 70-105 H [id number] 19:47:00 Test Item Value Reference Range Interpretation Comments GLUBED (test code = GLUBED) 106 MG/DL 70-105 H [id number] 16:21:00 Test Item Value Reference Range Interpretation Comments GLUBED (test code = GLUBED) 153 MG/DL 70-105 H [id number] 12:30:00 Test Item Value Reference Range Interpretation Comments GLUBED (test code = GLUBED) 114 MG/DL 70-105 H [id number] 05:46:00 Test Item Value Reference Range Interpretation Comments GLUBED (test code = GLUBED) 136 MG/DL 70-105 H CBC W/AUTO [id number] 04:49:00 Test Item Value Reference Range Interpretation Comments WHITE BLOOD CELL (test code = 5.6 x10 3/uL 3.2-11.5 N WBC) RED BLOOD CELL (test code = 3.53 x10(6)/m 3.70-5.10 L RBC) HEMOGLOBIN (test code = HGB) 10.1 g/dL 12.0-15.0 L HEMATOCRIT (test code = HCT) 31.3 % 35.7-44.8 L MEAN CELL VOLUME (test code = 89 fL 80-100 N MCV) MEAN CELL HGB (test code = MCH) 28.6 pg 26.2-33.8 N MEAN CELL HGB CONCENTRATION 32.3 g/dL 30.0-34.0 N (test code = MCHC) RED CELL DISTRIBUTION WIDTH 14.4 % 11.3-14.5 N (test code = RDW) PLATELET COUNT (test code = 286 x10 3/uL 130-408 N PLT) MEAN PLATELET VOLUME (test code 10.4 fL 8.6-12.6 N = MPV) NEUTROPHIL % (test code = NT%) 61.3 % 40.0-70.0 N IMMATURE GRANULOCYTE % (test 0.4 % 0.0-2.0 N code = IG%) LYMPHOCYTE % (test code = LY%) 25.0 % 20-40 N MONOCYTE % (test code = MO%) 9.2 % 1-10 N EOSINOPHIL % (test code = EO%) 3.6 % 0.0-5.0 N BASOPHIL % (test code = BA%) 0.5 % 0.0-1.0 N NUCLEATED RBC % (test code = 0.0 % 0.0-0.9 N NRBC%) NEUTROPHIL # (test code = NT#) 3.5 x10 3/uL 1.6-7.2 N LYMPHOCYTE # (test code = LY#) 1.41 x10 3/uL 1.1-2.7 N MONOCYTE # (test code = MO#) 0.5 x10 3/uL 0.3-0.8 N EOSINOPHIL # (test code = EO#) 0.2 x10 3/uL 0.0-0.5 N BASOPHIL # (test code = BA#) 0.0 x10 3/uL 0.0-0.1 N BASIC METABOLIC [id number] 04:33:00 Test Item Value Reference Range Interpretation Comments SODIUM (test code 137 mmol/L 135-145 N = NA) POTASSIUM (test 4.2 mmol/L 3.6-5.0 N code = K) CHLORIDE (test 104 mmol/L 101-111 N code = CL) CARBON DIOXIDE 26 mmol/L 21-31 N (test code = CO2) GLUCOSE (test code 104 mg/dl 70-100 H = GLU) BLOOD UREA 8 mg/dl 6-20 N NITROGEN (test code = BUN) GLOMERULAR >=60 max >60 The estimated FILTRATION RATE estimate glomerular (test code = GFR) filtration rate is computed usingpatient ra ce, age (>18), sex, and serum creatinin e. If anyof the neede d data elements a re missing the Laboratory jarvis ot compute an estimation of t he glomerular filtration rate . CREATININE (test 0.65 mg/dL 0.44-1.03 N code = CREAT) CALCIUM (test code 8.9 mg/dL 8.5-10.5 N = CA) [id number] 20:48:00 Test Item Value Reference Range Interpretation Comments GLUBED (test code = GLUBED) 89 MG/DL 70-105 N [id number] 17:18:00 Test Item Value Reference Range Interpretation Comments GLUBED (test code = GLUBED) 117 MG/DL 70-105 H [id number] 11:19:00 Test Item Value Reference Range Interpretation Comments GLUBED (test code = GLUBED) 113 MG/DL 70-105 H [id number] 06:05:00 Test Item Value Reference Range Interpretation Comments GLUBED (test code = GLUBED) 118 MG/DL 70-105 H BASIC METABOLIC [id number] 04:57:00 Test Item Value Reference Range Interpretation Comments SODIUM (test code 137 mmol/L 135-145 N = NA) POTASSIUM (test 3.3 mmol/L 3.6-5.0 L code = K) CHLORIDE (test 105 mmol/L 101-111 N code = CL) CARBON DIOXIDE 26 mmol/L 21-31 N (test code = CO2) GLUCOSE (test code 127 mg/dl 70-100 H = GLU) BLOOD UREA 8 mg/dl 6-20 N NITROGEN (test code = BUN) GLOMERULAR >=60 max >60 The estimated FILTRATION RATE estimate glomerular (test code = GFR) filtration rate is computed usingpatient ra ce, age (>18), sex, and serum creatinin e. If anyof the neede d data elements a re missing the Laboratory jarvis ot compute an estimation of t he glomerular filtration rate . CREATININE (test 0.62 mg/dL 0.44-1.03 N code = CREAT) CALCIUM (test code 8.5 mg/dL 8.5-10.5 N = CA) [id number] 04:57:00 Test Item Value Reference Range Interpretation Comments PHOSPHOROUS (test code = PHOS) 3.8 mg/dl 2.5-4.6 N [id number] 04:57:00 Test Item Value Reference Range Interpretation Comments MAGNESIUM (test code = MAG) 1.8 mg/dl 1.8-2.5 N CBC W/AUTO [id number] 04:44:00 Test Item Value Reference Range Interpretation Comments WHITE BLOOD CELL (test code = 4.9 x10 3/uL 3.2-11.5 N WBC) RED BLOOD CELL (test code = 3.31 x10(6)/m 3.70-5.10 L RBC) HEMOGLOBIN (test code = HGB) 9.7 g/dL 12.0-15.0 L HEMATOCRIT (test code = HCT) 29.3 % 35.7-44.8 L MEAN CELL VOLUME (test code = 89 fL 80-100 N MCV) MEAN CELL HGB (test code = MCH) 29.3 pg 26.2-33.8 N MEAN CELL HGB CONCENTRATION 33.1 g/dL 30.0-34.0 N (test code = MCHC) RED CELL DISTRIBUTION WIDTH 13.9 % 11.3-14.5 N (test code = RDW) PLATELET COUNT (test code = 239 x10 3/uL 130-408 N PLT) MEAN PLATELET VOLUME (test code 9.4 fL 8.6-12.6 N = MPV) NEUTROPHIL % (test code = NT%) 55.8 % 40.0-70.0 N IMMATURE GRANULOCYTE % (test 0.2 % 0.0-2.0 N code = IG%) LYMPHOCYTE % (test code = LY%) 30.5 % 20-40 N MONOCYTE % (test code = MO%) 9.2 % 1-10 N EOSINOPHIL % (test code = EO%) 3.7 % 0.0-5.0 N BASOPHIL % (test code = BA%) 0.6 % 0.0-1.0 N NUCLEATED RBC % (test code = 0.0 % 0.0-0.9 N NRBC%) NEUTROPHIL # (test code = NT#) 2.7 x10 3/uL 1.6-7.2 N LYMPHOCYTE # (test code = LY#) 1.49 x10 3/uL 1.1-2.7 N MONOCYTE # (test code = MO#) 0.5 x10 3/uL 0.3-0.8 N EOSINOPHIL # (test code = EO#) 0.2 x10 3/uL 0.0-0.5 N BASOPHIL # (test code = BA#) 0.0 x10 3/uL 0.0-0.1 N [id number] 01:16:00 Test Item Value Reference Range Interpretation Comments GLUBED (test code = GLUBED) 84 MG/DL 70-105 N [id number] 17:04:00 Test Item Value Reference Range Interpretation Comments GLUBED (test code = GLUBED) 112 MG/DL 70-105 H [id number] 12:18:00 Test Item Value Reference Range Interpretation Comments GLUBED (test code = GLUBED) 107 MG/DL 70-105 H - XR CHEST 1 [id number] 08:45:00 [facility] : 1975 Sex: FPatient Name: JERI VILLALOBOS Unit No: [id number] EXAMS: CPT: [id number] XR CHEST 1 V 72289 CHEST RADIOGRAPH - 1 view CLINICAL HISTORY: f/u hypoxemia. COMPARISON: 04/12/2022 FINDINGS: Patient is rotated. Heart size unchanged. Bibasilar atelectasis and/or infiltrates, left greater than right. No large pleural effusion seen. IMPRESSION: Right basilar atelectasis and/or infiltrates, left greater than right. Findings are relatively stable. Recommend continued follow-up. at 0845 Reported and signed by: Maximiliano Cleaning MD CC: Jorje Ellre MD; Manuel Rose DO Technologist: Dyan Deleon Time: DAP (Gy m2): Air Kerma (mGy): Trscr Dt/Tm: 04/13/2022 (0845) by:harpreet OSHEA Orig Print D/T: S: 04/13/2022 (0848) BATCH NO: N/A Name: JERI VILLALOBOS [facility] Phys: Jorje Brasher MD [address] : 1975 Age: 46 Sex: F [place] [id number] Loc: N.[id number] 1 Exam Date: 04/13/2022 Status: ADM IN PH: FAX: PAGE 1 Signed [id number] 08:10:00 Test Item Value Reference Range Interpretation Comments GLUBED (test code = GLUBED) 102 MG/DL 70-105 N ARTERIAL BLOOD [id number] 04:42:00 Test Item Value Reference Range Interpretation Comments ARTERIAL BLOOD GAS PH 7.444 7.350-7.450 N (test code = PHA) ARTERIAL BLOOD GAS 34.0 mmHg 35-45 L PCO2 (test code = PCO2A) ARTERIAL BLOOD GAS 136.0 mmHg 75-100 H PO2 (test code = PO2A) BICARBONATE TOTAL 22.8 mmol/L 22-26 N HCO3 (test code = HCO3) BASE EXCESS (test -0.7 mmol/L See_Comment N [Automate d message] code = MARY) The system [employer] generated this result transmit may reference range : (+/-)2.0. The reference range was not used to interpret this result as normal/abnormal . ABG O2 SATURATION 98.2 % 95.0-100.0 N (test code = SATA) ABG TYPE (test code = Arterial TYPEA) ARTERIAL FIO2 (test 35.0 % code = FIO2A) ABG VENT MODE (test PRVC code = MODEA) ABG VENT RESP RATE 16 /MIN (test code = RRA) ABG TIDAL VOLUME 440.0 ML (test code = TIDAL VOLUME) ABG PEEP (test code = 5.0 cmH2O PEEP) ABG SITE (test code = Right Radial SITEA) ALLENS TEST (test Yes code = ALLENS) TOTAL HGB (test code 12.4 g/dL 12.0-18.0 N = THB) BASIC METABOLIC [id number] 04:11:00 Test Item Value Reference Range Interpretation Comments SODIUM (test code 135 mmol/L 135-145 N = NA) POTASSIUM (test 3.2 mmol/L 3.6-5.0 L code = K) CHLORIDE (test 104 mmol/L 101-111 N code = CL) CARBON DIOXIDE 24 mmol/L 21-31 N (test code = CO2) GLUCOSE (test code 107 mg/dl 70-100 H = GLU) BLOOD UREA 14 mg/dl 6-20 N NITROGEN (test code = BUN) GLOMERULAR >=60 max >60 The estimated FILTRATION RATE estimate glomerular (test code = GFR) filtration rate is computed usingpatient ra ce, age (>18), sex, and serum creatinin e. If anyof the neede d data elements a re missing the Laboratory jarvis ot compute an estimation of t he glomerular filtration rate . CREATININE (test 0.74 mg/dL 0.44-1.03 N code = CREAT) CALCIUM (test code 8.7 mg/dL 8.5-10.5 N = CA) Spec Comments: Repeat Serum Magnesium level in AM if not alreadyComments to Phleb: ordered.[id number] 04:11:00 Test Item Value Reference Range Interpretation Comments MAGNESIUM (test code = MAG) 1.8 mg/dl 1.8-2.5 N Spec Comments: Repeat Serum Magnesium level in AM if not alreadyComments to Phleb: ordered.CALCIUM [id number] 03:19:00 Test Item Value Reference Range Interpretation Comments CALCIUM IONIZED (test code = WESLY) 1.20 mmol/L 1.13-1.32 N CBC W/AUTO [id number] 03:06:00 Test Item Value Reference Range Interpretation Comments WHITE BLOOD CELL (test code = 6.8 x10 3/uL 3.2-11.5 N WBC) RED BLOOD CELL (test code = 3.32 x10(6)/m 3.70-5.10 L RBC) HEMOGLOBIN (test code = HGB) 9.5 g/dL 12.0-15.0 L HEMATOCRIT (test code = HCT) 29.2 % 35.7-44.8 L MEAN CELL VOLUME (test code = 88 fL 80-100 N MCV) MEAN CELL HGB (test code = MCH) 28.6 pg 26.2-33.8 N MEAN CELL HGB CONCENTRATION 32.5 g/dL 30.0-34.0 N (test code = MCHC) RED CELL DISTRIBUTION WIDTH 14.5 % 11.3-14.5 N (test code = RDW) PLATELET COUNT (test code = 238 x10 3/uL 130-408 N PLT) MEAN PLATELET VOLUME (test code 9.3 fL 8.6-12.6 N = MPV) NEUTROPHIL % (test code = NT%) 64.9 % 40.0-70.0 N IMMATURE GRANULOCYTE % (test 0.3 % 0.0-2.0 N code = IG%) LYMPHOCYTE % (test code = LY%) 21.3 % 20-40 N MONOCYTE % (test code = MO%) 11.3 % 1-10 H EOSINOPHIL % (test code = EO%) 1.6 % 0.0-5.0 N BASOPHIL % (test code = BA%) 0.6 % 0.0-1.0 N NUCLEATED RBC % (test code = 0.0 % 0.0-0.9 N NRBC%) NEUTROPHIL # (test code = NT#) 4.4 x10 3/uL 1.6-7.2 N LYMPHOCYTE # (test code = LY#) 1.46 x10 3/uL 1.1-2.7 N MONOCYTE # (test code = MO#) 0.8 x10 3/uL 0.3-0.8 N EOSINOPHIL # (test code = EO#) 0.1 x10 3/uL 0.0-0.5 N BASOPHIL # (test code = BA#) 0.0 x10 3/uL 0.0-0.1 N ARTERIAL BLOOD [id number] 20:54:00 Test Item Value Reference Range Interpretation Comments ARTERIAL BLOOD GAS PH 7.512 7.350-7.450 H (test code = PHA) ARTERIAL BLOOD GAS 29.2 mmHg 35-45 L PCO2 (test code = PCO2A) ARTERIAL BLOOD GAS 133.0 mmHg 75-100 H PO2 (test code = PO2A) BICARBONATE TOTAL 22.9 mmol/L 22-26 N HCO3 (test code = HCO3) BASE EXCESS (test 1.1 mmol/L See_Comment N [Automate d message] code = MARY) The system [employer] generated this result transmit may reference range : (+/-)2.0. The reference range was not used to interpret this result as normal/abnormal . ABG O2 SATURATION 98.4 % 95.0-100.0 N (test code = SATA) ABG TYPE (test code = Arterial TYPEA) ARTERIAL FIO2 (test 40.0 % code = FIO2A) ABG VENT MODE (test PRVC code = MODEA) ABG VENT RESP RATE 20 /MIN (test code = RRA) ABG TIDAL VOLUME 440.0 ML (test code = TIDAL VOLUME) ABG PEEP (test code = 6.0 cmH2O PEEP) ABG SITE (test code = Right Radial SITEA) ALLENS TEST (test Yes code = ALLENS) TOTAL HGB (test code 15.2 g/dL 12.0-18.0 N = THB) [id number] 16:48:00 Test Item Value Reference Range Interpretation Comments GLUBED (test code = GLUBED) 132 MG/DL 70-105 H COMPREHENSIVE METABOLIC [id number] 16:32:00 Test Item Value Reference Range Interpretation Comments SODIUM (test code = 136 mmol/L 135-145 N NA) POTASSIUM (test 4.3 mmol/L 3.6-5.0 N code = K) CHLORIDE (test code 103 mmol/L 101-111 N = CL) CARBON DIOXIDE 23 mmol/L 21-31 N (test code = CO2) GLUCOSE (test code 112 mg/dl 70-100 H = GLU) BLOOD UREA NITROGEN 17 mg/dl 6-20 N (test code = BUN) GLOMERULAR >=60 max >60 The estimated FILTRATION RATE estimate glomerular (test code = GFR) filtration rate is computed usingpatient ra ce, age (>18), sex, and serum creatinin e. If anyof the ne eded data elements a re missing the Laboratory jarvis ot compute an estimation of t he glomerular filtration rate . CREATININE (test 0.82 mg/dL 0.44-1.03 N code = CREAT) TOTAL PROTEIN (test 7.3 g/dL 6.7-8.2 N code = PROT) ALBUMIN (test code 3.1 g/dL 3.2-5.5 L = ALB) CALCIUM (test code 9.2 mg/dL 8.5-10.5 N = CA) BILIRUBIN TOTAL 0.60 mg/dL 0.2-1.3 N (test code = BILT) SGOT/AST (test code 51 U/L 10-42 H = AST) SGPT/ALT (test code 34 U/L 10-60 N = ALT) ALKALINE 93 U/L 42-121 N PHOSPHATASE (test code = ALKP) [id number] 16:32:00 Test Item Value Reference Range Interpretation Comments PHOSPHOROUS (test code = PHOS) 3.7 mg/dl 2.5-4.6 N [id number] 16:32:00 Test Item Value Reference Range Interpretation Comments MAGNESIUM (test code = MAG) 2.2 mg/dl 1.8-2.5 N [id number] 11:37:00 Test Item Value Reference Range Interpretation Comments GLUBED (test code = GLUBED) 139 MG/DL 70-105 H - CT HEAD/BRAIN W/O [id number] 10:15:00 [facility] 1975 Sex: FPatient Name: JERI VILLALOBOS Unit No: [id number] EXAMS: CPT: [id number] CT HEAD/BRAIN W/O CONT [id number] EXAM: CT BRAIN WITHOUT CONTRAST DATE: 04/12/2022 9:04 AM INDICATION: Altered mental status COMPARISON: None. TECHNIQUE: CT imaging was performed with iterative reconstruction techniques and/or automated exposure control to reduce radiation dose. Axial CT images of the brain were obtained. Sagittal and coronal reformats. IV contrast: None. DLP: Refer to CT protocol form FINDINGS: There is no edema, hemorrhage, mass lesion or other acute intracranial abnormality. 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 Mccain-white matter differentiation is otherwise preserved. No midline shift, herniation, or intraventricular megaly is seen. The basal cisterns are patent Retention cysts are seen in bilateral posterior ethmoid air cells. There is also debris mucosal thickening in the left sphenoid sinus. Paranasal sinuses otherwise clear the mastoid air cells are clear. There is no fracture of the skull, skull base, or visible facial bones. IMPRESSION: No acute intracranial abnormalities. at 1015 Reported and signed by: MD Mindi CC: Manuel Rose DO Technologist: Sarah Perez CTDI: 44.26 DLP: 733.2 Trscr Dt/Tm: 04/12/2022 (1015) by:[email or web address] Orig Print D/T: S: 04/12/2022 (1018) BATCH NO: N/A Name: JERI VILLALOBOS [facility] Phys: SIDFA. - Manuel Rose [address] [facility] : 1975 Age: 46 Sex: F [place] [address] Loc: N.2058 1 Exam Date: 04/12/2022 Status: ADM IN PH: FAX: PAGE 1 Signed ReportARTERIAL BLOOD [id number] 10:07:00 Test Item Value Reference Range Interpretation Comments ARTERIAL BLOOD GAS PH 7.493 7.350-7.450 H (test code = PHA) ARTERIAL BLOOD GAS 22.6 mmHg 35-45 LL PCO2 (test code = PCO2A) ARTERIAL BLOOD GAS 155.8 mmHg 75-100 H PO2 (test code = PO2A) BICARBONATE TOTAL 17.0 mmol/L 22-26 L HCO3 (test code = HCO3) BASE EXCESS (test -4.1 mmol/L See_Comment L [Automate d message] code = MARY) The system [employer] generated this result transmit may reference range : (+/-)2.0. The reference range was not used to interpret this result as normal/abnormal . ABG TYPE (test code = Arterial TYPEA) ARTERIAL FIO2 (test 35.0 % code = FIO2A) ABG L/M (test code = 8.00 L/MIN L/M) ABG VENT MODE (test Trach Collar code = MODEA) ABG SITE (test code = Right Radial QUES SITEA) ALLENS TEST (test Yes code = ALLENS) BLOOD GAS [id number] 10:07:00 Test Item Value Reference Range Interpretation Comments ARTERIAL BLOOD GAS PH 7.463 7.350-7.450 H (test code = PHA) ARTERIAL BLOOD GAS 28.2 mmHg 35-45 L PCO2 (test code = PCO2A) BICARBONATE TOTAL 19.7 mmol/L 22-26 L HCO3 (test code = HCO3) BASE EXCESS (test -2.7 mmol/L See_Comment L [Automate d message] code = MARY) The system [employer] generated this result transmit may reference range : (+/-)2.0. The reference range was not used to interpret this result as normal/abnormal . ABG O2 SATURATION 98.5 % 95.0-100.0 N (test code = SATA) ABG TYPE (test code = Arterial TYPEA) ARTERIAL FIO2 (test 35.0 % code = FIO2A) ABG L/M (test code = 8.00 L/MIN L/M) ABG VENT MODE (test Trach Collar code = MODEA) ABG SITE (test code = Right Radial QUES SITEA) ALLENS TEST (test Yes code = ALLENS) SODIUM (POC) (test 139 mmol/L 137-145 N code = NA/ABG) POTASSIUM (POC) (test 5.40 mmol/L 3.4-4.5 H code = K/ABG) CHLORIDE (ARTERIAL) 103 mmol/L 98-107 N (test code = CL/ABG) GLUCOSE (test code = 180 mg/dL 74-100 H GLU/ABG) IONIZED CALCIUM (test 1.16 mmol/L 1.12-1.32 N code = CAIABG) POC LACTIC ACID (test 8.76 mmol/L HH Test p erformed by code = POCLAC) Respiratory T herapy TOTAL HGB (test code 13.5 g/dL 12.0-18.0 N = THB) - CTA CHEST FOR [id number] 10:06:00 [facility] : 1975 Sex: FPatient Name: JERI VILLALOBOS Unit No: [id number] EXAMS: CPT: [id number] [place] [id number] CTA CHEST WITH CONTRAST: INDICATIONS:Overdose. Tachycardia. COMPARISON: None available TECHNIQUE: Axial CT chest with IV contrast was performed. Coronal and sagittal reformats reconstructed. Bolus tracking series followed by contrast- enhanced CT. Data set analyzed on a 3-D workstation with image post processing. CT radiation dose optimization is achieved for this examination by the use of a CT protocol in accordance with ACR practice standards and adherence to special events manager's recommendations. Contrast: 100cc Isovue-300. Total DPL: 388.21mGy*cm. FINDINGS: Bilateral breast implants. A tracheostomy tube is in carlo ce. No enlarged supraclavicular or axillary lymph node. The visualized central airway is unremarkable. No hilar or mediastinal lymphadenopathy. Cardiac size is normal. No coronary calcifications. Focalconsolidation in the left lower lobe, similar to prior. No pleural effusion. The thoracic aorta is of normal caliber without dissection or aneurysm. The pulmonary artery are opacified and no pulmonary emboli seen. A PEG tube is in place. IMPRESSION: No pulmonary emboli. Left lower lobe pneumonia, relatively stable. at 1006 Reported and signedby: Jalen Black MD CC: Manuel Rose DO Technologist: Sarah Perez CTDI: 10.48 DLP: 388.21 Trscr Dt/Tm: 04/12/2022 (1006) by:[email or web address] Orig Print D/T: S: 04/12/2022 (1009) BATCH NO: N/A Name: JERI VILLALOBOS [facility] Phys: TRANG.Mabel - Manuel Rose [address] : 1975 Age: 46 Sex: F [place], [place] [address] Loc: N.2058 1 Exam Date: 04/12/2022 Status: ADM IN PH: FAX: PAGE 1 Signed ReportCOMPREHENSIVE METABOLIC [id number] 09:41:00 Test Item Value Reference Range Interpretation Comments SODIUM (test code = 139 mmol/L 135-145 N NA) POTASSIUM (test 5.2 mmol/L 3.6-5.0 H code = K) CHLORIDE (test code 101 mmol/L 101-111 N = CL) CARBON DIOXIDE 21 mmol/L 21-31 N (test code = CO2) GLUCOSE (test code 167 mg/dl 70-100 H = GLU) BLOOD UREA NITROGEN 15 mg/dl 6-20 N (test code = BUN) GLOMERULAR >=60 max >60 The estimated FILTRATION RATE estimate glomerular (test code = GFR) filtration rate is computed usingpatient ra ce, age (>18), sex, and serum creatinin e. If anyof the ne eded data elements a re missing the Laboratory jarvis ot compute an estimation of t he glomerular filtration rate . CREATININE (test 0.92 mg/dL 0.44-1.03 N code = CREAT) TOTAL PROTEIN (test 8.6 g/dL 6.7-8.2 H code = PROT) ALBUMIN (test code 3.6 g/dL 3.2-5.5 N = ALB) CALCIUM (test code 10.2 mg/dL 8.5-10.5 N = CA) BILIRUBIN TOTAL 0.60 mg/dL 0.2-1.3 N (test code = BILT) SGOT/AST (test code 45 U/L 10-42 H = AST) SGPT/ALT (test code 36 U/L 10-60 N = ALT) ALKALINE 124 U/L 42-121 H PHOSPHATASE (test code = ALKP) Spec Comments: TRANSPORT TECHNICIAN ProtocolCREATINE KINASE (CK)2022-04-12 09:41:00 Test Item Value Reference Range Interpretation Comments CREATINE KINASE (CK) (test code = CK) 80 U/L 0-210 N Spec Comments: TRANSPORT TECHNICIAN [id number] 09:41:00 Test Item Value Reference Range Interpretation Comments MAGNESIUM (test code = MAG) 2.0 mg/dl 1.8-2.5 N Spec Comments: TRANSPORT TECHNICIAN ProtocolCBC W/AUTO [id number] 09:37:00 Test Item Value Reference Range Interpretation Comments WHITE BLOOD CELL (test code = 13.3 x10 3/uL 3.2-11.5 H WBC) RED BLOOD CELL (test code = 4.76 x10(6)/m 3.70-5.10 N RBC) HEMOGLOBIN (test code = HGB) 13.7 g/dL 12.0-15.0 HEMATOCRIT (test code = HCT) 42.6 % 35.7-44.8 N MEAN CELL VOLUME (test code = 90 fL 80-100 N MCV) MEAN CELL HGB (test code = MCH) 28.8 pg 26.2-33.8 N MEAN CELL HGB CONCENTRATION 32.2 g/dL 30.0-34.0 N (test code = MCHC) RED CELL DISTRIBUTION WIDTH 14.4 % 11.3-14.5 N (test code = RDW) PLATELET COUNT (test code = 456 x10 3/uL 130-408 H PLT) MEAN PLATELET VOLUME (test code 10.2 fL 8.6-12.6 N = MPV) NEUTROPHIL % (test code = NT%) 56.8 % 40.0-70.0 N IMMATURE GRANULOCYTE % (test 0.5 % 0.0-2.0 N code = IG%) LYMPHOCYTE % (test code = LY%) 33.5 % 20-40 N MONOCYTE % (test code = MO%) 6.8 % 1-10 N EOSINOPHIL % (test code = EO%) 1.9 % 0.0-5.0 N BASOPHIL % (test code = BA%) 0.5 % 0.0-1.0 N NUCLEATED RBC % (test code = 0.0 % 0.0-0.9 N NRBC%) NEUTROPHIL # (test code = NT#) 7.5 x10 3/uL 1.6-7.2 H LYMPHOCYTE # (test code = LY#) 4.44 x10 3/uL 1.1-2.7 H MONOCYTE # (test code = MO#) 0.9 x10 3/uL 0.3-0.8 H EOSINOPHIL # (test code = EO#) 0.3 x10 3/uL 0.0-0.5 N BASOPHIL # (test code = BA#) 0.1 x10 3/uL 0.0-0.1 N Spec Comments: TRANSPORT TECHNICIAN [id number] 09:37:00 Test Item Value Reference Range Interpretation Comments TROPONIN-I (test code = TROPI) <0.020 ng/mL 0.000-0.034 N CBC W/AUTO [id number] 08:38:00 Test Item Value Reference Range Interpretation Comments WHITE BLOOD CELL (test code = 6.0 x10 3/uL 3.2-11.5 N WBC) RED BLOOD CELL (test code = 3.99 x10(6)/m 3.70-5.10 N RBC) HEMOGLOBIN (test code = HGB) 11.6 g/dL 12.0-15.0 L HEMATOCRIT (test code = HCT) 34.9 % 35.7-44.8 L MEAN CELL VOLUME (test code = 88 fL 80-100 N MCV) MEAN CELL HGB (test code = MCH) 29.1 pg 26.2-33.8 N MEAN CELL HGB CONCENTRATION 33.2 g/dL 30.0-34.0 N (test code = MCHC) RED CELL DISTRIBUTION WIDTH 14.3 % 11.3-14.5 N (test code = RDW) PLATELET COUNT (test code = 227 x10 3/uL 130-408 N PLT) MEAN PLATELET VOLUME (test code 10.1 fL 8.6-12.6 N = MPV) NEUTROPHIL % (test code = NT%) 55.1 % 40.0-70.0 N LYMPHOCYTE % (test code = LY%) 27.5 % 20-40 N MONOCYTE % (test code = MO%) 12.4 % 1-10 H EOSINOPHIL % (test code = EO%) 3.0 % 0.0-5.0 N BASOPHIL % (test code = BA%) 0.7 % 0.0-1.0 N NUCLEATED RBC % (test code = 0.0 % 0.0-0.9 N NRBC%) NEUTROPHIL # (test code = NT#) 3.3 x10 3/uL 1.6-7.2 N LYMPHOCYTE # (test code = LY#) 1.64 x10 3/uL 1.1-2.7 N MONOCYTE # (test code = MO#) 0.7 x10 3/uL 0.3-0.8 N EOSINOPHIL # (test code = EO#) 0.2 x10 3/uL 0.0-0.5 N IMMATURE GRANULOCYTE % (test 1.3 % 0.0-2.0 N code = IG%) BASOPHIL # (test code = BA#) 0.0 x10 3/uL 0.0-0.1 N PLATELET ESTIMATE (test code = ADEQUATE ADEQUATE PLTEST) DIFFERENTIAL [id number] 08:38:00 Test Item Value Reference Range Interpretation Comments PLATELET MORPHOLOGY (test code = Normal NORMAL PLTMORPH) - XR CHEST 1 [id number] 08:34:00 [facility] : 1975 Sex: FPatient Name: JERI VILLALOBOS Unit No: [id number] EXAMS: CPT: [id number] XR CHEST 1 V 01858 CHEST RADIOGRAPH, ONE VIEW: FRONTAL HISTORY: Shortness of breath. COMPARISON: April 01 2022. FINDINGS: Biapical lung scarring. Basilar congestion. Borderline cardiomegaly. IMPRESSION: Basilar congestion and underlying cardiomegaly. at 0834 Reported and signedby: Jalen Black MD CC: Manuel Rose DO Technologist: Galdino Deleon Time: DAP (Gy m2): Air Kerma (mGy): Trscr Dt/Tm: 04/12/2022 (0834) by:[email or web address] Orig Print D/T: S: 04/12/2022 (0837) BATCH NO: N/A Name: JERI VILLALOBOS [facility] Phys: SIDFA.01 - MiltonManuel D [address] : 1975 Age: 46 Sex: F [place], [place] [address] Loc: N.0385 1 Exam Date: 04/12/2022 Status: ADM IN PH: FAX: PAGE 1 Signed ReportBASIC METABOLIC [id number] 08:21:00 Test Item Value Reference Range Interpretation Comments SODIUM (test code 137 mmol/L 135-145 N = NA) POTASSIUM (test 4.7 mmol/L 3.6-5.0 N code = K) CHLORIDE (test 102 mmol/L 101-111 N code = CL) CARBON DIOXIDE 23 mmol/L 21-31 N (test code = CO2) GLUCOSE (test code 129 mg/dl 70-100 H = GLU) BLOOD UREA 13 mg/dl 6-20 N NITROGEN (test code = BUN) GLOMERULAR >=60 max >60 The estimated FILTRATION RATE estimate glomerular (test code = GFR) filtration rate is computed usingpatient ra ce, age (>18), sex, and serum creatinin e. If anyof the neede d data elements a re missing the Laboratory jarvis ot compute an estimation of t he glomerular filtration rate . CREATININE (test 0.63 mg/dL 0.44-1.03 N code = CREAT) CALCIUM (test code 9.4 mg/dL 8.5-10.5 N = CA) [id number] 08:07:00 Test Item Value Reference Range Interpretation Comments GLUBED (test code = GLUBED) 116 MG/DL 70-105 H [id number] 06:06:00 Test Item Value Reference Range Interpretation Comments CREATININE (test code = CREAT) 0.63 mg/dL 0.44-1.03 N [id number] 06:03:00 Test Item Value Reference Range Interpretation Comments GLUBED (test code = GLUBED) 124 MG/DL 70-105 H [id number] 21:32:00 Test Item Value Reference Range Interpretation Comments GLUBED (test code = GLUBED) 125 MG/DL 70-105 H [id number] 15:13:00 Test Item Value Reference Range Interpretation Comments GLUBED (test code = GLUBED) 138 MG/DL 70-105 H [id number] 12:10:00 Test Item Value Reference Range Interpretation Comments GLUBED (test code = GLUBED) 129 MG/DL 70-105 H [id number] 07:01:00 Test Item Value Reference Range Interpretation Comments GLUBED (test code = GLUBED) 129 MG/DL 70-105 H [id number] 06:14:00 Test Item Value Reference Range Interpretation Comments CREATININE (test code = CREAT) 0.61 mg/dL 0.44-1.03 N [id number] 21:53:00 Test Item Value Reference Range Interpretation Comments GLUBED (test code = GLUBED) 132 MG/DL 70-105 H [id number] 17:28:00 Test Item Value Reference Range Interpretation Comments GLUBED (test code = GLUBED) 124 MG/DL 70-105 H [id number] 08:46:00 Test Item Value Reference Range Interpretation Comments CREATININE (test code = CREAT) 0.67 mg/dL 0.44-1.03 N [id number] 06:18:00 Test Item Value Reference Range Interpretation Comments GLUBED (test code = GLUBED) 137 MG/DL 70-105 H [id number] 20:49:00 Test Item Value Reference Range Interpretation Comments GLUBED (test code = GLUBED) 122 MG/DL 70-105 H [id number] 16:26:00 Test Item Value Reference Range Interpretation Comments GLUBED (test code = GLUBED) 135 MG/DL 70-105 H [id number] 11:42:00 Test Item Value Reference Range Interpretation Comments GLUBED (test code = GLUBED) 139 MG/DL 70-105 H [id number] 09:59:00 Test Item Value Reference Range Interpretation Comments CREATININE (test code = CREAT) 0.63 mg/dL 0.44-1.03 N VANCOMYCIN [id number] 09:49:00 Test Item Value Reference Range Interpretation Comments VANCOMYCIN TROUGH 18.2 ug/ml 10.0-20.0 N Please ref er to (test code = VANCT) Medicati on Administration Record (MAR) forlast d ose date and time. [id number] 20:27:00 Test Item Value Reference Range Interpretation Comments GLUBED (test code = GLUBED) 134 MG/DL 70-105 H [id number] 15:35:00 Test Item Value Reference Range Interpretation Comments GLUBED (test code = GLUBED) 110 MG/DL 70-105 H [id number] 12:06:00 Test Item Value Reference Range Interpretation Comments GLUBED (test code = GLUBED) 122 MG/DL 70-105 H [id number] 06:35:00 Test Item Value Reference Range Interpretation Comments CREATININE (test code = CREAT) 0.55 mg/dL 0.44-1.03 N [id number] 05:42:00 Test Item Value Reference Range Interpretation Comments GLUBED (test code = GLUBED) 87 MG/DL 70-105 N [id number] 20:26:00 Test Item Value Reference Range Interpretation Comments GLUBED (test code = GLUBED) 116 MG/DL 70-105 H [id number] 15:57:00 Test Item Value Reference Range Interpretation Comments GLUBED (test code = GLUBED) 126 MG/DL 70-105 H [id number] 11:55:00 Test Item Value Reference Range Interpretation Comments GLUBED (test code = GLUBED) 137 MG/DL 70-105 H BASIC METABOLIC [id number] 09:48:00 Test Item Value Reference Range Interpretation Comments SODIUM (test code 135 mmol/L 135-145 N = NA) POTASSIUM (test 4.0 mmol/L 3.6-5.0 N code = K) CHLORIDE (test 101 mmol/L 101-111 N code = CL) CARBON DIOXIDE 25 mmol/L 21-31 N (test code = CO2) GLUCOSE (test code 128 mg/dl 70-100 H = GLU) BLOOD UREA 13 mg/dl 6-20 N NITROGEN (test code = BUN) GLOMERULAR >=60 max >60 The estimated FILTRATION RATE estimate glomerular (test code = GFR) filtration rate is computed usingpatient ra ce, age (>18), sex, and serum creatinin e. If anyof the neede d data elements a re missing the Laboratory jarvis ot compute an estimation of t he glomerular filtration rate . CREATININE (test 0.53 mg/dL 0.44-1.03 N code = CREAT) CALCIUM (test code 8.9 mg/dL 8.5-10.5 N = CA) VANCOMYCIN [id number] 09:44:00 Test Item Value Reference Range Interpretation Comments VANCOMYCIN TROUGH 19.9 ug/ml 10.0-20.0 N Please ref er to (test code = VANCT) Medicati on Administration Record (MAR) forlast d ose date and time. CBC W/AUTO [id number] 09:22:00 Test Item Value Reference Range Interpretation Comments WHITE BLOOD CELL (test code = 7.0 x10 3/uL 3.2-11.5 N WBC) RED BLOOD CELL (test code = 3.88 x10(6)/m 3.70-5.10 N RBC) HEMOGLOBIN (test code = HGB) 10.9 g/dL 12.0-15.0 L HEMATOCRIT (test code = HCT) 33.6 % 35.7-44.8 L MEAN CELL VOLUME (test code = 87 fL 80-100 N MCV) MEAN CELL HGB (test code = MCH) 28.1 pg 26.2-33.8 N MEAN CELL HGB CONCENTRATION 32.4 g/dL 30.0-34.0 N (test code = MCHC) RED CELL DISTRIBUTION WIDTH 14.4 % 11.3-14.5 N (test code = RDW) PLATELET COUNT (test code = 299 x10 3/uL 130-408 N PLT) MEAN PLATELET VOLUME (test code 9.4 fL 8.6-12.6 N = MPV) NEUTROPHIL % (test code = NT%) 69.1 % 40.0-70.0 N IMMATURE GRANULOCYTE % (test 0.3 % 0.0-2.0 N code = IG%) LYMPHOCYTE % (test code = LY%) 20.7 % 20-40 N MONOCYTE % (test code = MO%) 7.2 % 1-10 N EOSINOPHIL % (test code = EO%) 2.1 % 0.0-5.0 N BASOPHIL % (test code = BA%) 0.6 % 0.0-1.0 N NUCLEATED RBC % (test code = 0.0 % 0.0-0.9 N NRBC%) NEUTROPHIL # (test code = NT#) 4.9 x10 3/uL 1.6-7.2 N LYMPHOCYTE # (test code = LY#) 1.46 x10 3/uL 1.1-2.7 N MONOCYTE # (test code = MO#) 0.5 x10 3/uL 0.3-0.8 N EOSINOPHIL # (test code = EO#) 0.2 x10 3/uL 0.0-0.5 N BASOPHIL # (test code = BA#) 0.0 x10 3/uL 0.0-0.1 N [id number] 07:10:00 Test Item Value Reference Range Interpretation Comments CREATININE (test code = CREAT) 0.65 mg/dL 0.44-1.03 N [id number] 04:46:00 Test Item Value Reference Range Interpretation Comments GLUBED (test code = GLUBED) 122 MG/DL 70-105 H [id number] 16:41:00 Test Item Value Reference Range Interpretation Comments GLUBED (test code = GLUBED) 128 MG/DL 70-105 H [id number] 11:51:00 Test Item Value Reference Range Interpretation Comments GLUBED (test code = GLUBED) 130 MG/DL 70-105 H VANCOMYCIN [id number] 09:01:00 Test Item Value Reference Range Interpretation Comments VANCOMYCIN TROUGH 11.4 ug/ml 10.0-20.0 N Please ref er to (test code = VANCT) Medicati on Administration Record (MAR) forlast d ose date and time. BASIC METABOLIC [id number] 08:56:00 Test Item Value Reference Range Interpretation Comments SODIUM (test code 135 mmol/L 135-145 N = NA) POTASSIUM (test 4.2 mmol/L 3.6-5.0 N code = K) CHLORIDE (test 102 mmol/L 101-111 N code = CL) CARBON DIOXIDE 26 mmol/L 21-31 N (test code = CO2) GLUCOSE (test code 126 mg/dl 70-100 H = GLU) BLOOD UREA 12 mg/dl 6-20 N NITROGEN (test code = BUN) GLOMERULAR >=60 max >60 The estimated FILTRATION RATE estimate glomerular (test code = GFR) filtration rate is computed usingpatient ra ce, age (>18), sex, and serum creatinin e. If anyof the neede d data elements a re missing the Laboratory jarvis ot compute an estimation of t he glomerular filtration rate . CREATININE (test 0.59 mg/dL 0.44-1.03 N code = CREAT) CALCIUM (test code 9.2 mg/dL 8.5-10.5 N = CA) CBC W/AUTO [id number] 08:52:00 Test Item Value Reference Range Interpretation Comments WHITE BLOOD CELL (test code = 7.7 x10 3/uL 3.2-11.5 N WBC) RED BLOOD CELL (test code = 4.46 x10(6)/m 3.70-5.10 N RBC) HEMOGLOBIN (test code = HGB) 12.6 g/dL 12.0-15.0 N HEMATOCRIT (test code = HCT) 39.4 % 35.7-44.8 N MEAN CELL VOLUME (test code = 88 fL 80-100 N MCV) MEAN CELL HGB (test code = MCH) 28.3 pg 26.2-33.8 N MEAN CELL HGB CONCENTRATION 32.0 g/dL 30.0-34.0 N (test code = MCHC) RED CELL DISTRIBUTION WIDTH 14.8 % 11.3-14.5 H (test code = RDW) PLATELET COUNT (test code = 327 x10 3/uL 130-408 N PLT) MEAN PLATELET VOLUME (test code 9.1 fL 8.6-12.6 N = MPV) NEUTROPHIL % (test code = NT%) 68.9 % 40.0-70.0 N LYMPHOCYTE % (test code = LY%) 22.0 % 20-40 N MONOCYTE % (test code = MO%) 6.4 % 1-10 N EOSINOPHIL % (test code = EO%) 1.8 % 0.0-5.0 N BASOPHIL % (test code = BA%) 0.5 % 0.0-1.0 N NUCLEATED RBC % (test code = 0.0 % 0.0-0.9 N NRBC%) NEUTROPHIL # (test code = NT#) 5.3 x10 3/uL 1.6-7.2 N LYMPHOCYTE # (test code = LY#) 1.69 x10 3/uL 1.1-2.7 N MONOCYTE # (test code = MO#) 0.5 x10 3/uL 0.3-0.8 N EOSINOPHIL # (test code = EO#) 0.1 x10 3/uL 0.0-0.5 N IMMATURE GRANULOCYTE % (test 0.4 % 0.0-2.0 N code = IG%) BASOPHIL # (test code = BA#) 0.0 x10 3/uL 0.0-0.1 N [id number] 06:04:00 Test Item Value Reference Range Interpretation Comments GLUBED (test code = GLUBED) 129 MG/DL 70-105 H [id number] 23:59:00 Test Item Value Reference Range Interpretation Comments GLUBED (test code = GLUBED) 118 MG/DL 70-105 H [id number] 15:29:00 Test Item Value Reference Range Interpretation Comments GLUBED (test code = GLUBED) 137 MG/DL 70-105 H [id number] 10:42:00 Test Item Value Reference Range Interpretation Comments GLUBED (test code = GLUBED) 160 MG/DL 70-105 H [id number] 06:44:00 Test Item Value Reference Range Interpretation Comments GLUBED (test code = GLUBED) 143 MG/DL 70-105 H [id number] 06:32:00 Test Item Value Reference Range Interpretation Comments CREATININE (test code = CREAT) 0.61 mg/dL 0.44-1.03 N [id number] 22:14:00 Test Item Value Reference Range Interpretation Comments GLUBED (test code = GLUBED) 134 MG/DL 70-105 H [id number] 15:26:00 Test Item Value Reference Range Interpretation Comments GLUBED (test code = GLUBED) 127 MG/DL 70-105 H [id number] 10:51:00 Test Item Value Reference Range Interpretation Comments GLUBED (test code = GLUBED) 136 MG/DL 70-105 H [id number] 07:11:00 Test Item Value Reference Range Interpretation Comments CREATININE (test code = CREAT) 0.70 mg/dL 0.44-1.03 N [id number] 05:48:00 Test Item Value Reference Range Interpretation Comments GLUBED (test code = GLUBED) 104 MG/DL 70-105 N [id number] 20:44:00 Test Item Value Reference Range Interpretation Comments GLUBED (test code = GLUBED) 93 MG/DL 70-105 N [id number] 16:59:00 Test Item Value Reference Range Interpretation Comments GLUBED (test code = GLUBED) 110 MG/DL 70-105 H [id number] 12:41:00 Test Item Value Reference Range Interpretation Comments GLUBED (test code = GLUBED) 107 MG/DL 70-105 H [id number] 06:04:00 Test Item Value Reference Range Interpretation Comments GLUBED (test code = GLUBED) 100 MG/DL 70-105 N [id number] 20:16:00 Test Item Value Reference Range Interpretation Comments GLUBED (test code = GLUBED) 104 MG/DL 70-105 N [id number] 16:43:00 Test Item Value Reference Range Interpretation Comments GLUBED (test code = GLUBED) 139 MG/DL 70-105 H [id number] 12:11:00 Test Item Value Reference Range Interpretation Comments GLUBED (test code = GLUBED) 112 MG/DL 70-105 H [id number] 08:07:00 Test Item Value Reference Range Interpretation Comments CREATININE (test code = CREAT) 0.59 mg/dL 0.44-1.03 N [id number] 05:27:00 Test Item Value Reference Range Interpretation Comments GLUBED (test code = GLUBED) 135 MG/DL 70-105 H [id number] 00:46:00 Test Item Value Reference Range Interpretation Comments GLUBED (test code = GLUBED) 117 MG/DL 70-105 H [id number] 16:35:00 Test Item Value Reference Range Interpretation Comments GLUBED (test code = GLUBED) 104 MG/DL 70-105 N [id number] 11:28:00 Test Item Value Reference Range Interpretation Comments GLUBED (test code = GLUBED) 138 MG/DL 70-105 H MISC [id number] 11:03:00 Test Item Value Reference Range Interpretation Comments MISC CHEMISTRY Procaalcitoni n = 0.11 ng/mL (test code = HIGH Ref range = 0.00-0.08 MISCCHEM) Jeri Villalobos : 1975 Patient ReportP atient ID: Age: 46 Account Numb er: [id number] n ID: [id number] Sex: Female Ordering Physic aakash:Ordered Items: Procalci toninDate Collected: 12/2021 Date Received: 03/29 DateReported: 0 03/30/2022 Fasting: Not GivenProcalcito ninTest Current Result and Flag Previous Result and Date UnitsReference IntervalProcalc wyifem12 0.11 High ng/mL 0.00 -0.08A procalcitonin ( PCT) level above 2.0 ng/mL on the firstday of ICU admission is associated with a high risk forprogression to severe sepsis and/or s eptic shock.A PCT level below 0.5 ng/mL on the first day o f ICUadmission is associated w ith a low risk for progression to severe sepsis and/or s eptic shock.Note: Con centrations <0.5 ng/mL do n ot exclude aninfection, on account of localized infec tions (withoutsystemi c signs) which can be associat ed with such lowconcentratio ns, or a systemic infect ion in its initialstages ( <6 hours).Furtherm ore, increased procalcitonin c an occur withoutinfectio n. PCT concentrations between 0.5 and 2.0 ng/mLshould be interpreted taking into acc ount the patient'shistor y. It is recommended to retest PCT within 6-24 freeman rsif any concentrations <2 ng/mL are obtained.Discla imerThe Previous Result is listed for the most recent testperformed by [facility] in t he past 5 years where there iss ufficient patient demogra [facility] data tomatch the res ult to the patient. Result s from certain testsare exclud ed from the Previous Result display.Icon Legend Out of R eference Range Critical or Stephany rtPerforming Labs01: HD - [place] b[address], [place], [place],[address] D ir: Tiburcio Stevens MDFor Inquiries , the physician may contact Branch:[phone] Lab: [phone] ient DetailsLedGlenna parada:Date o f : 1975Age: 46Sex: FemalePatient I D:Alternate Patient ID:Phys serafinan DetailsHCA [facility] [address] [facility] [place], [place]Phone: Llg ount Number: [phone] an ID: SIDDIQINPI:Spec imen DetailsSpecimen ID: [id number] ontrol ID: [id number] rnate Control Number: [id number] Collected: 12/2021 1328 LocalDate Recei elba: 03/29/2022 0000 ETDate Ent ered: 03/29/2022 2125 ETDate Reported: 03/30 1509 ETRte: 00Date C reated and Stored 03/30/22 1514 ET Final Report Page 1of 1 [id number] 07:01:00 Test Item Value Reference Range Interpretation Comments CREATININE (test code = CREAT) 0.56 mg/dL 0.44-1.03 N [id number] 06:29:00 Test Item Value Reference Range Interpretation Comments GLUBED (test code = GLUBED) 130 MG/DL 70-105 H [id number] 21:10:00 Test Item Value Reference Range Interpretation Comments GLUBED (test code = GLUBED) 99 MG/DL 70-105 N [id number] 16:24:00 Test Item Value Reference Range Interpretation Comments GLUBED (test code = GLUBED) 104 MG/DL 70-105 N [id number] 11:40:00 Test Item Value Reference Range Interpretation Comments GLUBED (test code = GLUBED) 110 MG/DL 70-105 H COMPREHENSIVE METABOLIC [id number] 07:12:00 Test Item Value Reference Range Interpretation Comments SODIUM (test code = 138 mmol/L 135-145 N NA) POTASSIUM (test 4.1 mmol/L 3.6-5.0 N code = K) CHLORIDE (test code 107 mmol/L 101-111 N = CL) CARBON DIOXIDE 27 mmol/L 21-31 N (test code = CO2) GLUCOSE (test code 110 mg/dl 70-100 H = GLU) BLOOD UREA NITROGEN 7 mg/dl 6-20 N (test code = BUN) GLOMERULAR >=60 max >60 The estimated FILTRATION RATE estimate glomerular (test code = GFR) filtration rate is computed usingpatient ra ce, age (>18), sex, and serum creatinin e. If anyof the ne eded data elements a re missing the Laboratory jarvis ot compute an estimation of t he glomerular filtration rate . CREATININE (test 0.51 mg/dL 0.44-1.03 N code = CREAT) TOTAL PROTEIN (test 6.3 g/dL 6.7-8.2 L code = PROT) ALBUMIN (test code 2.5 g/dL 3.2-5.5 L = ALB) CALCIUM (test code 8.7 mg/dL 8.5-10.5 N = CA) BILIRUBIN TOTAL 0.40 mg/dL 0.2-1.3 N (test code = BILT) SGOT/AST (test code 35 U/L 10-42 N = AST) SGPT/ALT (test code 24 U/L 10-60 N = ALT) ALKALINE 81 U/L 42-121 N PHOSPHATASE (test code = ALKP) [id number] 06:23:00 Test Item Value Reference Range Interpretation Comments GLUBED (test code = GLUBED) 122 MG/DL 70-105 H [id number] 21:53:00 Test Item Value Reference Range Interpretation Comments GLUBED (test code = GLUBED) 112 MG/DL 70-105 H [id number] 15:53:00 Test Item Value Reference Range Interpretation Comments GLUBED (test code = GLUBED) 117 MG/DL 70-105 H PATHOLOGY REVIEW [id number] 11:04:00 Test Item Value Reference Range Interpretation Comments NAME OF TEST PROCALCITONIN (test code = NAMEMISC) GENETIC TEST NO (test code = GENETIC2) PERFORM SITE LCA (test code = LABPERS) TEST COST (test 0.00 code = LABCOST) LIST CPT CODES 000 (test code = MISCCPT) APPROVAL (test YES code = APPROVAL) PATH REVIEW Discussed with Dr. COMMENT (test William Desai atient code = PATH is spiking feve rs. REVIEW COM) Dr. Inga wong els Procalcitonin i s necessary for currentpatient care. Procalcitonin o rder is approved. SIGNATURE (test Kale Jewell, code = M.D. SIGNATURE) [id number] 10:36:00 Test Item Value Reference Range Interpretation Comments GLUBED (test code = GLUBED) 100 MG/DL 70-105 N COMPREHENSIVE METABOLIC [id number] 07:52:00 Test Item Value Reference Range Interpretation Comments SODIUM (test code = 135 mmol/L 135-145 N NA) POTASSIUM (test 4.3 mmol/L 3.6-5.0 N code = K) CHLORIDE (test code 105 mmol/L 101-111 N = CL) CARBON DIOXIDE 24 mmol/L 21-31 N (test code = CO2) GLUCOSE (test code 120 mg/dl 70-100 H = GLU) BLOOD UREA NITROGEN 7 mg/dl 6-20 N (test code = BUN) GLOMERULAR >=60 max >60 The estimated FILTRATION RATE estimate glomerular (test code = GFR) filtration rate is computed usingpatient ra ce, age (>18), sex, and serum creatinin e. If anyof the ne eded data elements a re missing the Laboratory jarvis ot compute an estimation of t he glomerular filtration rate . CREATININE (test 0.53 mg/dL 0.44-1.03 N code = CREAT) TOTAL PROTEIN (test 5.7 g/dL 6.7-8.2 L code = PROT) ALBUMIN (test code 2.4 g/dL 3.2-5.5 L = ALB) CALCIUM (test code 8.6 mg/dL 8.5-10.5 N = CA) BILIRUBIN TOTAL 0.40 mg/dL 0.2-1.3 N (test code = BILT) SGOT/AST (test code 32 U/L 10-42 N = AST) SGPT/ALT (test code 21 U/L 10-60 N = ALT) ALKALINE 83 U/L 42-121 N PHOSPHATASE (test code = ALKP) CBC W/AUTO [id number] 07:38:00 Test Item Value Reference Range Interpretation Comments WHITE BLOOD CELL (test code = 7.9 x10 3/uL 3.2-11.5 N WBC) RED BLOOD CELL (test code = 4.02 x10(6)/m 3.70-5.10 N RBC) HEMOGLOBIN (test code = HGB) 11.4 g/dL 12.0-15.0 L HEMATOCRIT (test code = HCT) 35.2 % 35.7-44.8 L MEAN CELL VOLUME (test code = 88 fL 80-100 N MCV) MEAN CELL HGB (test code = MCH) 28.4 pg 26.2-33.8 N MEAN CELL HGB CONCENTRATION 32.4 g/dL 30.0-34.0 N (test code = MCHC) RED CELL DISTRIBUTION WIDTH 14.4 % 11.3-14.5 N (test code = RDW) PLATELET COUNT (test code = 353 x10 3/uL 130-408 N PLT) MEAN PLATELET VOLUME (test code 9.9 fL 8.6-12.6 N = MPV) NEUTROPHIL % (test code = NT%) 71.1 % 40.0-70.0 H LYMPHOCYTE % (test code = LY%) 20.0 % 20-40 N MONOCYTE % (test code = MO%) 6.2 % 1-10 N EOSINOPHIL % (test code = EO%) 1.8 % 0.0-5.0 N BASOPHIL % (test code = BA%) 0.4 % 0.0-1.0 N NUCLEATED RBC % (test code = 0.0 % 0.0-0.9 N NRBC%) NEUTROPHIL # (test code = NT#) 5.6 x10 3/uL 1.6-7.2 N LYMPHOCYTE # (test code = LY#) 1.57 x10 3/uL 1.1-2.7 N MONOCYTE # (test code = MO#) 0.5 x10 3/uL 0.3-0.8 N EOSINOPHIL # (test code = EO#) 0.1 x10 3/uL 0.0-0.5 N IMMATURE GRANULOCYTE % (test 0.5 % 0.0-2.0 N code = IG%) BASOPHIL # (test code = BA#) 0.0 x10 3/uL 0.0-0.1 N [id number] 06:28:00 Test Item Value Reference Range Interpretation Comments GLUBED (test code = GLUBED) 106 MG/DL 70-105 H [id number] 21:04:00 Test Item Value Reference Range Interpretation Comments GLUBED (test code = GLUBED) 122 MG/DL 70-105 H [id number] 15:47:00 Test Item Value Reference Range Interpretation Comments GLUBED (test code = GLUBED) 114 MG/DL 70-105 H MISCELLANEOUS LAB SEND [id number] 11:46:00 Test Item Value Reference Range Interpretation Comments MISCELLANEOUS LAB SEND PATHOLOGY REVIEW REQ OUT (test code = MISCLABSO) Test: Procalcitonin, serumOrdering physician contact information: Dr Xiong [phone] test: [id number] 11:03:00 Test Item Value Reference Range Interpretation Comments GLUBED (test code = GLUBED) 120 MG/DL 70-105 H COMPREHENSIVE METABOLIC [id number] 10:43:00 Test Item Value Reference Range Interpretation Comments SODIUM (test code = 137 mmol/L 135-145 N NA) POTASSIUM (test 4.1 mmol/L 3.6-5.0 code = K) CHLORIDE (test code 105 mmol/L 101-111 N = CL) CARBON DIOXIDE 23 mmol/L 21-31 N (test code = CO2) GLUCOSE (test code 127 mg/dl 70-100 H = GLU) BLOOD UREA NITROGEN 10 mg/dl 6-20 N (test code = BUN) GLOMERULAR >=60 max >60 The estimated FILTRATION RATE estimate glomerular (test code = GFR) filtration rate is computed usingpatient ra ce, age (>18), sex, and serum creatinin e. If anyof the ne eded data elements a re missing the Laboratory jarvis ot compute an estimation of t he glomerular filtration rate . CREATININE (test 0.51 mg/dL 0.44-1.03 N code = CREAT) TOTAL PROTEIN (test 6.2 g/dL 6.7-8.2 L code = PROT) ALBUMIN (test code 2.5 g/dL 3.2-5.5 L = ALB) CALCIUM (test code 8.8 mg/dL 8.5-10.5 N = CA) BILIRUBIN TOTAL 0.40 mg/dL 0.2-1.3 N (test code = BILT) SGOT/AST (test code 29 U/L 10-42 N = AST) SGPT/ALT (test code 20 U/L 10-60 N = ALT) ALKALINE 64 U/L 42-121 N PHOSPHATASE (test code = ALKP) VANCOMYCIN [id number] 10:42:00 Test Item Value Reference Range Interpretation Comments VANCOMYCIN TROUGH 16.2 ug/ml 10.0-20.0 N Please ref er to (test code = VANCT) Medicati on Administration Record (MAR) forlast d ose date and time. [id number] 05:41:00 Test Item Value Reference Range Interpretation Comments GLUBED (test code = GLUBED) 121 MG/DL 70-105 H [id number] 03:50:00 Test Item Value Reference Range Interpretation Comments GLUBED (test code = GLUBED) 96 MG/DL 70-105 N [id number] 20:35:00 Test Item Value Reference Range Interpretation Comments GLUBED (test code = GLUBED) 127 MG/DL 70-105 H [id number] 16:32:00 Test Item Value Reference Range Interpretation Comments GLUBED (test code = GLUBED) 116 MG/DL 70-105 H [id number] 11:29:00 Test Item Value Reference Range Interpretation Comments GLUBED (test code = GLUBED) 114 MG/DL 70-105 H URINALYSIS [id number] 08:26:00 Test Item Value Reference Range Interpretation Comments UA COLOR (test code = YELLOW YELLOW COLU) UA APPEARANCE (test HAZY CLEAR code = APPU) UA GLUCOSE DIPSTICK NEGATIVE NEGATIVE (test code = DGLUU) UA BILIRUBIN DIPSTICK NEGATIVE NEGATIVE (test code = BILU) UA KETONE DIPSTICK NEGATIVE NEGATIVE (test code = KETU) UA SPECIFIC GRAVITY 1.026 1.001-1.030 (test code = SGU) UA BLOOD DIPSTICK NEGATIVE NEGATIVE (test code = KITA) UA PH DIPSTICK (test 5.0 5.0-9.0 code = RICHARD) UA PROTEIN DIPSTICK NEGATIVE NEGATIVE (test code = PROU) UA UROBILINOGEN NEGATIVE See_Comment [Automated message] DIPSTICK (test code = The sy stem which URO) generated this result transmitted ref erence range: <=1.0. T he reference range was not used to interpr et this result as normal/abnormal . UA NITRITE DIPSTICK NEGATIVE NEGATIVE (test code = SRIDHAR) UA ASCORBIC ACID POSITIVE A High levels of ascorbic DIPSTICK (test code = acid m ay cause false AAU) negativeresults for blood, glucose & nitrite. UA LEUKOCYTE ESTERASE 1+ NEGATIVE A DIPSTICK (test code = LEUU) UA WBC (test code = 0-5 /HPF 0-5 WBCU) UA RBC (test code = 0-5 /HPF 0-5 RBCU) UA EPITHELIAL CELLS FEW /LPF NONE-FEW (test code = EPIU) UA BACTERIA (test None /HPF NONE SEEN code = BACU) UA CALCIUM OXALATE OCC /HPF NONE SEEN CRYSTALS (test code = CAOXU) CBC W/AUTO [id number] 07:32:00 Test Item Value Reference Range Interpretation Comments WHITE BLOOD CELL (test code = 8.0 x10 3/uL 3.2-11.5 N WBC) RED BLOOD CELL (test code = 3.58 x10(6)/m 3.70-5.10 L RBC) HEMOGLOBIN (test code = HGB) 10.3 g/dL 12.0-15.0 L HEMATOCRIT (test code = HCT) 32.5 % 35.7-44.8 L MEAN CELL VOLUME (test code = 91 fL 80-100 N MCV) MEAN CELL HGB (test code = MCH) 28.8 pg 26.2-33.8 N MEAN CELL HGB CONCENTRATION 31.7 g/dL 30.0-34.0 N (test code = MCHC) RED CELL DISTRIBUTION WIDTH 14.4 % 11.3-14.5 N (test code = RDW) PLATELET COUNT (test code = 378 x10 3/uL 130-408 N PLT) MEAN PLATELET VOLUME (test code 10.1 fL 8.6-12.6 N = MPV) NEUTROPHIL % (test code = NT%) 65.4 % 40.0-70.0 N LYMPHOCYTE % (test code = LY%) 23.7 % 20-40 N MONOCYTE % (test code = MO%) 7.5 % 1-10 N EOSINOPHIL % (test code = EO%) 2.6 % 0.0-5.0 N BASOPHIL % (test code = BA%) 0.4 % 0.0-1.0 N NUCLEATED RBC % (test code = 0.0 % 0.0-0.9 N NRBC%) NEUTROPHIL # (test code = NT#) 5.2 x10 3/uL 1.6-7.2 N LYMPHOCYTE # (test code = LY#) 1.89 x10 3/uL 1.1-2.7 N MONOCYTE # (test code = MO#) 0.6 x10 3/uL 0.3-0.8 N EOSINOPHIL # (test code = EO#) 0.2 x10 3/uL 0.0-0.5 N IMMATURE GRANULOCYTE % (test 0.4 % 0.0-2.0 N code = IG%) BASOPHIL # (test code = BA#) 0.0 x10 3/uL 0.0-0.1 N RECOLLECT - [id number] 06:14:00 Test Item Value Reference Range Interpretation Comments GLUBED (test code = GLUBED) 126 MG/DL 70-105 H COMPREHENSIVE METABOLIC [id number] 05:55:00 Test Item Value Reference Range Interpretation Comments SODIUM (test code = 141 mmol/L 135-145 N NA) POTASSIUM (test 5.3 mmol/L 3.6-5.0 H code = K) CHLORIDE (test code 111 mmol/L 101-111 N = CL) CARBON DIOXIDE 21 mmol/L 21-31 N (test code = CO2) GLUCOSE (test code 146 mg/dl 70-100 H = GLU) BLOOD UREA NITROGEN 18 mg/dl 6-20 N (test code = BUN) GLOMERULAR >=60 max >60 The estimated FILTRATION RATE estimate glomerular (test code = GFR) filtration rate is computed usingpatient ra ce, age (>18), sex, and serum creatinin e. If anyof the ne eded data elements a re missing the Laboratory jarvis ot compute an estimation of t he glomerular filtration rate . CREATININE (test 0.66 mg/dL 0.44-1.03 N code = CREAT) TOTAL PROTEIN (test 5.8 g/dL 6.7-8.2 L code = PROT) ALBUMIN (test code 2.5 g/dL 3.2-5.5 L = ALB) CALCIUM (test code 9.1 mg/dL 8.5-10.5 N = CA) BILIRUBIN TOTAL 0.50 mg/dL 0.2-1.3 N (test code = BILT) SGOT/AST (test code 36 U/L 10-42 N = AST) SGPT/ALT (test code 19 U/L 10-60 N = ALT) ALKALINE 68 U/L 42-121 N PHOSPHATASE (test code = ALKP) [id number] 20:47:00 Test Item Value Reference Range Interpretation Comments GLUBED (test code = GLUBED) 127 MG/DL 70-105 H [id number] 15:48:00 Test Item Value Reference Range Interpretation Comments GLUBED (test code = GLUBED) 138 MG/DL 70-105 H - XR CHEST 1 [id number] 12:31:00 [facility] : 1975 Sex: FPatient Name: JERI VILLALOBOS Unit No: [id number] EXAMS: CPT: [id number] XR CHEST 1 V 54213 CHEST, 1 VIEW: HISTORY: f/u. Fevers COMPARISON: March 23, 2022 and March 12, 2022 FINDINGS: Tracheostomy tube is in place. Heart is normal in size. Mild opacification left lung base probably representing some atelectasis. Right lung is clear. IMPRESSION: Mild opacification left lung base likely representing some atelectasis. Pneumonia cannot be entirely excluded. at 1231 Reported and signed by: Laurent Robles MD CC: Salas Salazar MD; Manuel Rose DO Technologist: Saira Deleon Time: DAP (Gy m2): Air Kerma (mGy): Trscr Dt/Tm: 03/26/2022 (1231) by:[email or web address] Orig Print D/T: S: 03/26/2022 (1234) BATCH NO: N/A Name: JERI VILLALOBOS [facility] Phys: Salas Fan [address] [place] : 1975 Age: 46 Sex: F [place], [place] [address] Loc: N.[id number] 1 Exam Date: 03/26/2022 Status: ADM IN PH: FAX: PAGE 1 Signed [id number] 11:50:00 Test Item Value Reference Range Interpretation Comments GLUBED (test code = GLUBED) 165 MG/DL 70-105 H [id number] 06:35:00 Test Item Value Reference Range Interpretation Comments GLUBED (test code = GLUBED) 106 MG/DL 70-105 H BASIC METABOLIC [id number] 06:29:00 Test Item Value Reference Range Interpretation Comments SODIUM (test code 141 mmol/L 135-145 N = NA) POTASSIUM (test 3.8 mmol/L 3.6-5.0 N code = K) CHLORIDE (test 108 mmol/L 101-111 N code = CL) CARBON DIOXIDE 27 mmol/L 21-31 N (test code = CO2) GLUCOSE (test code 97 mg/dl 70-100 N = GLU) BLOOD UREA 16 mg/dl 6-20 N NITROGEN (test code = BUN) GLOMERULAR >=60 max >60 The estimated FILTRATION RATE estimate glomerular (test code = GFR) filtration rate is computed usingpatient ra ce, age (>18), sex, and serum creatinin e. If anyof the neede d data elements a re missing the Laboratory jarvis ot compute an estimation of t he glomerular filtration rate . CREATININE (test 0.51 mg/dL 0.44-1.03 N code = CREAT) CALCIUM (test code 8.7 mg/dL 8.5-10.5 N = CA) CBC W/AUTO [id number] 06:28:00 Test Item Value Reference Range Interpretation Comments WHITE BLOOD CELL (test code = 7.7 x10 3/uL 3.2-11.5 N WBC) RED BLOOD CELL (test code = 3.42 x10(6)/m 3.70-5.10 L RBC) HEMOGLOBIN (test code = HGB) 9.8 g/dL 12.0-15.0 L HEMATOCRIT (test code = HCT) 30.5 % 35.7-44.8 L MEAN CELL VOLUME (test code = 89 fL 80-100 N MCV) MEAN CELL HGB (test code = MCH) 28.7 pg 26.2-33.8 N MEAN CELL HGB CONCENTRATION 32.1 g/dL 30.0-34.0 N (test code = MCHC) RED CELL DISTRIBUTION WIDTH 14.4 % 11.3-14.5 N (test code = RDW) PLATELET COUNT (test code = 340 x10 3/uL 130-408 N PLT) MEAN PLATELET VOLUME (test code 11.0 fL 8.6-12.6 N = MPV) NEUTROPHIL % (test code = NT%) 69.6 % 40.0-70.0 N IMMATURE GRANULOCYTE % (test 0.3 % 0.0-2.0 N code = IG%) LYMPHOCYTE % (test code = LY%) 18.7 % 20-40 L MONOCYTE % (test code = MO%) 6.6 % 1-10 N EOSINOPHIL % (test code = EO%) 4.5 % 0.0-5.0 N BASOPHIL % (test code = BA%) 0.3 % 0.0-1.0 N NUCLEATED RBC % (test code = 0.0 % 0.0-0.9 N NRBC%) NEUTROPHIL # (test code = NT#) 5.4 x10 3/uL 1.6-7.2 N LYMPHOCYTE # (test code = LY#) 1.45 x10 3/uL 1.1-2.7 N MONOCYTE # (test code = MO#) 0.5 x10 3/uL 0.3-0.8 N EOSINOPHIL # (test code = EO#) 0.4 x10 3/uL 0.0-0.5 N BASOPHIL # (test code = BA#) 0.0 x10 3/uL 0.0-0.1 N [id number] 20:02:00 Test Item Value Reference Range Interpretation Comments GLUBED (test code = GLUBED) 101 MG/DL 70-105 N [id number] 16:31:00 Test Item Value Reference Range Interpretation Comments GLUBED (test code = GLUBED) 141 MG/DL 70-105 H [id number] 11:51:00 Test Item Value Reference Range Interpretation Comments GLUBED (test code = GLUBED) 155 MG/DL 70-105 H [id number] 06:28:00 Test Item Value Reference Range Interpretation Comments GLUBED (test code = GLUBED) 138 MG/DL 70-105 H CBC W/AUTO [id number] 06:20:00 Test Item Value Reference Range Interpretation Comments WHITE BLOOD CELL (test code = 14.8 x10 3/uL 3.2-11.5 H WBC) RED BLOOD CELL (test code = 3.87 x10(6)/m 3.70-5.10 N RBC) HEMOGLOBIN (test code = HGB) 11.0 g/dL 12.0-15.0 L HEMATOCRIT (test code = HCT) 34.5 % 35.7-44.8 L MEAN CELL VOLUME (test code = 89 fL 80-100 N MCV) MEAN CELL HGB (test code = MCH) 28.4 pg 26.2-33.8 N MEAN CELL HGB CONCENTRATION 31.9 g/dL 30.0-34.0 N (test code = MCHC) RED CELL DISTRIBUTION WIDTH 14.3 % 11.3-14.5 N (test code = RDW) PLATELET COUNT (test code = 312 x10 3/uL 130-408 N PLT) MEAN PLATELET VOLUME (test code 10.8 fL 8.6-12.6 N = MPV) NEUTROPHIL % (test code = NT%) 84.8 % 40.0-70.0 H LYMPHOCYTE % (test code = LY%) 8.9 % 20-40 L MONOCYTE % (test code = MO%) 4.9 % 1-10 N EOSINOPHIL % (test code = EO%) 0.8 % 0.0-5.0 N BASOPHIL % (test code = BA%) 0.3 % 0.0-1.0 N NUCLEATED RBC % (test code = 0.0 % 0.0-0.9 N NRBC%) NEUTROPHIL # (test code = NT#) 12.5 x10 3/uL 1.6-7.2 H LYMPHOCYTE # (test code = LY#) 1.31 x10 3/uL 1.1-2.7 N MONOCYTE # (test code = MO#) 0.7 x10 3/uL 0.3-0.8 N EOSINOPHIL # (test code = EO#) 0.1 x10 3/uL 0.0-0.5 N IMMATURE GRANULOCYTE % (test 0.3 % 0.0-2.0 N code = IG%) BASOPHIL # (test code = BA#) 0.0 x10 3/uL 0.0-0.1 N BASIC METABOLIC [id number] 06:11:00 Test Item Value Reference Range Interpretation Comments SODIUM (test code 140 mmol/L 135-145 N = NA) POTASSIUM (test 3.7 mmol/L 3.6-5.0 N code = K) CHLORIDE (test 110 mmol/L 101-111 N code = CL) CARBON DIOXIDE 24 mmol/L 21-31 N (test code = CO2) GLUCOSE (test code 168 mg/dl 70-100 H = GLU) BLOOD UREA 15 mg/dl 6-20 N NITROGEN (test code = BUN) GLOMERULAR >=60 max >60 The estimated FILTRATION RATE estimate glomerular (test code = GFR) filtration rate is computed usingpatient ra ce, age (>18), sex, and serum creatinin e. If anyof the neede d data elements a re missing the Laboratory jarvis ot compute an estimation of t he glomerular filtration rate . CREATININE (test 0.54 mg/dL 0.44-1.03 N code = CREAT) CALCIUM (test code 8.8 mg/dL 8.5-10.5 N = CA) [id number] 20:18:00 Test Item Value Reference Range Interpretation Comments GLUBED (test code = GLUBED) 156 MG/DL 70-105 H [id number] 16:21:00 Test Item Value Reference Range Interpretation Comments GLUBED (test code = GLUBED) 120 MG/DL 70-105 H [id number] 11:13:00 Test Item Value Reference Range Interpretation Comments GLUBED (test code = GLUBED) 151 MG/DL 70-105 H BASIC METABOLIC [id number] 07:25:00 Test Item Value Reference Range Interpretation Comments SODIUM (test code 138 mmol/L 135-145 N = NA) POTASSIUM (test 4.2 mmol/L 3.6-5.0 code = K) CHLORIDE (test 108 mmol/L 101-111 N code = CL) CARBON DIOXIDE 24 mmol/L 21-31 N (test code = CO2) GLUCOSE (test code 120 mg/dl 70-100 H = GLU) BLOOD UREA 15 mg/dl 6-20 N NITROGEN (test code = BUN) GLOMERULAR >=60 max >60 The estimated FILTRATION RATE estimate glomerular (test code = GFR) filtration rate is computed usingpatient ra ce, age (>18), sex, and serum creatinin e. If anyof the neede d data elements a re missing the Laboratory jarvis ot compute an estimation of t he glomerular filtration rate . CREATININE (test 0.66 mg/dL 0.44-1.03 N code = CREAT) CALCIUM (test code 8.7 mg/dL 8.5-10.5 N = CA) CBC W/AUTO [id number] 07:09:00 Test Item Value Reference Range Interpretation Comments WHITE BLOOD CELL (test code = 15.4 x10 3/uL 3.2-11.5 H WBC) RED BLOOD CELL (test code = 3.91 x10(6)/m 3.70-5.10 N RBC) HEMOGLOBIN (test code = HGB) 11.2 g/dL 12.0-15.0 L HEMATOCRIT (test code = HCT) 35.3 % 35.7-44.8 L MEAN CELL VOLUME (test code = 90 fL 80-100 N MCV) MEAN CELL HGB (test code = MCH) 28.6 pg 26.2-33.8 N MEAN CELL HGB CONCENTRATION 31.7 g/dL 30.0-34.0 N (test code = MCHC) RED CELL DISTRIBUTION WIDTH 14.0 % 11.3-14.5 N (test code = RDW) PLATELET COUNT (test code = 300 x10 3/uL 130-408 N PLT) MEAN PLATELET VOLUME (test code 11.1 fL 8.6-12.6 N = MPV) NEUTROPHIL % (test code = NT%) 86.8 % 40.0-70.0 H IMMATURE GRANULOCYTE % (test 0.6 % 0.0-2.0 N code = IG%) LYMPHOCYTE % (test code = LY%) 8.5 % 20-40 L MONOCYTE % (test code = MO%) 3.1 % 1-10 N EOSINOPHIL % (test code = EO%) 0.7 % 0.0-5.0 N BASOPHIL % (test code = BA%) 0.3 % 0.0-1.0 N NUCLEATED RBC % (test code = 0.0 % 0.0-0.9 N NRBC%) NEUTROPHIL # (test code = NT#) 13.3 x10 3/uL 1.6-7.2 H LYMPHOCYTE # (test code = LY#) 1.31 x10 3/uL 1.1-2.7 N MONOCYTE # (test code = MO#) 0.5 x10 3/uL 0.3-0.8 N EOSINOPHIL # (test code = EO#) 0.1 x10 3/uL 0.0-0.5 N BASOPHIL # (test code = BA#) 0.0 x10 3/uL 0.0-0.1 N [id number] 06:45:00 Test Item Value Reference Range Interpretation Comments GLUBED (test code = GLUBED) 139 MG/DL 70-105 H [id number] 21:24:00 Test Item Value Reference Range Interpretation Comments GLUBED (test code = GLUBED) 118 MG/DL 70-105 H [id number] 16:08:00 Test Item Value Reference Range Interpretation Comments GLUBED (test code = GLUBED) 169 MG/DL 70-105 H - XR CHEST 1 [id number] 14:06:00 [facility] 1975 Sex: FPatient Name: JERI VILLALOBOS Unit No: [id number] EXAMS: CPT: [id number] XR CHEST 1 V 53630 XR CHEST 1 VIEW HISTORY: tachycardia COMPARISON: 03/12/2022. FINDINGS: Cardiac silhouette is normal size. Pulmonaryvasculature is within normal limits. Mild haziness seen in the lung bases, particularly on the left.No large effusion seen. No pneumothorax. IMPRESSION: Bibasilar haziness particularly on the left similar to prior study. at 1406 Reported and signed by: Anni Haas MD CC: Sally Garrison MD; Manuel Rose DO Technologist: Galdino Deleon Time: DAP (Gy m2): Air Kerma (mGy): Trscr Dt/Tm: 03/23/2022 (1406) by:[email or web address] Orig Print D /T: S: 03/23/2022 (0815) BATCH NO: N/A Name: JERI VILLALOBOS [facility] Phys: [id number] - Kentrell Garrison,Sally B [address] : 1975 Age: 46 Sex: F [place] [address] Loc: N.0385 1 Exam Date: 03/23/2022 Status: ADM IN PH: FAX: PAGE 1 Signed [id number] 13:49:00 Test Item Value Reference Range Interpretation Comments MAGNESIUM (test code = MAG) 1.8 mg/dl 1.8-2.5 N [id number] 13:49:00 Test Item Value Reference Range Interpretation Comments TROPONIN-I (test code = TROPI) <0.020 ng/mL 0.000-0.034 N [id number] 12:08:00 Test Item Value Reference Range Interpretation Comments GLUBED (test code = GLUBED) 143 MG/DL 70-105 H [id number] 05:56:00 Test Item Value Reference Range Interpretation Comments GLUBED (test code = GLUBED) 142 MG/DL 70-105 H BASIC METABOLIC [id number] 05:52:00 Test Item Value Reference Range Interpretation Comments SODIUM (test code 139 mmol/L 135-145 N = NA) POTASSIUM (test 3.2 mmol/L 3.6-5.0 L code = K) CHLORIDE (test 108 mmol/L 101-111 N code = CL) CARBON DIOXIDE 26 mmol/L 21-31 N (test code = CO2) GLUCOSE (test code 168 mg/dl 70-100 H = GLU) BLOOD UREA 16 mg/dl 6-20 N NITROGEN (test code = BUN) GLOMERULAR >=60 max >60 The estimated FILTRATION RATE estimate glomerular (test code = GFR) filtration rate is computed usingpatient ra ce, age (>18), sex, and serum creatinin e. If anyof the neede d data elements a re missing the Laboratory jarvis ot compute an estimation of t he glomerular filtration rate . CREATININE (test 0.54 mg/dL 0.44-1.03 N code = CREAT) CALCIUM (test code 8.5 mg/dL 8.5-10.5 N = CA) CBC W/AUTO [id number] 05:50:00 Test Item Value Reference Range Interpretation Comments WHITE BLOOD CELL (test code = 7.0 x10 3/uL 3.2-11.5 N WBC) RED BLOOD CELL (test code = 3.81 x10(6)/m 3.70-5.10 N RBC) HEMOGLOBIN (test code = HGB) 10.8 g/dL 12.0-15.0 L HEMATOCRIT (test code = HCT) 34.1 % 35.7-44.8 L MEAN CELL VOLUME (test code = 90 fL 80-100 N MCV) MEAN CELL HGB (test code = MCH) 28.3 pg 26.2-33.8 N MEAN CELL HGB CONCENTRATION 31.7 g/dL 30.0-34.0 N (test code = MCHC) RED CELL DISTRIBUTION WIDTH 13.2 % 11.3-14.5 N (test code = RDW) PLATELET COUNT (test code = 263 x10 3/uL 130-408 N PLT) MEAN PLATELET VOLUME (test code 11.0 fL 8.6-12.6 N = MPV) NEUTROPHIL % (test code = NT%) 72.7 % 40.0-70.0 H LYMPHOCYTE % (test code = LY%) 18.6 % 20-40 L MONOCYTE % (test code = MO%) 4.7 % 1-10 N EOSINOPHIL % (test code = EO%) 3.4 % 0.0-5.0 N BASOPHIL % (test code = BA%) 0.3 % 0.0-1.0 N NUCLEATED RBC % (test code = 0.0 % 0.0-0.9 N NRBC%) NEUTROPHIL # (test code = NT#) 5.1 x10 3/uL 1.6-7.2 N LYMPHOCYTE # (test code = LY#) 1.31 x10 3/uL 1.1-2.7 N MONOCYTE # (test code = MO#) 0.3 x10 3/uL 0.3-0.8 N EOSINOPHIL # (test code = EO#) 0.2 x10 3/uL 0.0-0.5 N IMMATURE GRANULOCYTE % (test 0.3 % 0.0-2.0 N code = IG%) BASOPHIL # (test code = BA#) 0.0 x10 3/uL 0.0-0.1 N [id number] 20:04:00 Test Item Value Reference Range Interpretation Comments GLUBED (test code = GLUBED) 114 MG/DL 70-105 H [id number] 16:03:00 Test Item Value Reference Range Interpretation Comments GLUBED (test code = GLUBED) 104 MG/DL 70-105 N [id number] 11:10:00 Test Item Value Reference Range Interpretation Comments GLUBED (test code = GLUBED) 129 MG/DL 70-105 H CBC W/AUTO [id number] 07:01:00 Test Item Value Reference Range Interpretation Comments WHITE BLOOD CELL (test code = 6.1 x10 3/uL 3.2-11.5 N WBC) RED BLOOD CELL (test code = 3.69 x10(6)/m 3.70-5.10 L RBC) HEMOGLOBIN (test code = HGB) 10.8 g/dL 12.0-15.0 L HEMATOCRIT (test code = HCT) 33.1 % 35.7-44.8 L MEAN CELL VOLUME (test code = 90 fL 80-100 N MCV) MEAN CELL HGB (test code = MCH) 29.3 pg 26.2-33.8 N MEAN CELL HGB CONCENTRATION 32.6 g/dL 30.0-34.0 N (test code = MCHC) RED CELL DISTRIBUTION WIDTH 13.0 % 11.3-14.5 N (test code = RDW) PLATELET COUNT (test code = 231 x10 3/uL 130-408 N PLT) MEAN PLATELET VOLUME (test code 11.2 fL 8.6-12.6 N = MPV) NEUTROPHIL % (test code = NT%) 58.6 % 40.0-70.0 N LYMPHOCYTE % (test code = LY%) 30.4 % 20-40 N MONOCYTE % (test code = MO%) 6.1 % 1-10 N EOSINOPHIL % (test code = EO%) 4.3 % 0.0-5.0 N BASOPHIL % (test code = BA%) 0.3 % 0.0-1.0 N NUCLEATED RBC % (test code = 0.0 % 0.0-0.9 N NRBC%) NEUTROPHIL # (test code = NT#) 3.6 x10 3/uL 1.6-7.2 N LYMPHOCYTE # (test code = LY#) 1.85 x10 3/uL 1.1-2.7 N MONOCYTE # (test code = MO#) 0.4 x10 3/uL 0.3-0.8 N EOSINOPHIL # (test code = EO#) 0.3 x10 3/uL 0.0-0.5 N IMMATURE GRANULOCYTE % (test 0.3 % 0.0-2.0 N code = IG%) BASOPHIL # (test code = BA#) 0.0 x10 3/uL 0.0-0.1 N [id number] 06:53:00 Test Item Value Reference Range Interpretation Comments GLUBED (test code = GLUBED) 104 MG/DL 70-105 N BASIC METABOLIC [id number] 06:37:00 Test Item Value Reference Range Interpretation Comments SODIUM (test code 142 mmol/L 135-145 N = NA) POTASSIUM (test 3.5 mmol/L 3.6-5.0 L code = K) CHLORIDE (test 112 mmol/L 101-111 H code = CL) CARBON DIOXIDE 24 mmol/L 21-31 N (test code = CO2) GLUCOSE (test code 98 mg/dl 70-100 N = GLU) BLOOD UREA 19 mg/dl 6-20 N NITROGEN (test code = BUN) GLOMERULAR >=60 max >60 The estimated FILTRATION RATE estimate glomerular (test code = GFR) filtration rate is computed usingpatient ra ce, age (>18), sex, and serum creatinin e. If anyof the neede d data elements a re missing the Laboratory jarvis ot compute an estimation of t he glomerular filtration rate . CREATININE (test 0.61 mg/dL 0.44-1.03 N code = CREAT) CALCIUM (test code 8.5 mg/dL 8.5-10.5 N = CA) [id number] 20:39:00 Test Item Value Reference Range Interpretation Comments GLUBED (test code = GLUBED) 97 MG/DL 70-105 N [id number] 16:19:00 Test Item Value Reference Range Interpretation Comments GLUBED (test code = GLUBED) 104 MG/DL 70-105 N - CONT INJ GS/BURNS/[id number] 11:43:00 [facility] : 1975 Sex: FPatient Name: JERI VILLALOBOS Unit No: [id number] EXAMS: CPT: [id number] CONT INJ GS/BURNS/JJ/GJ [id number] EXAM:XR ABDOMEN CONTRAST INJECTION 2 VIEWS DATE: 03/21/2022 10:13 AM INDICATION: Tube study. COMPARISON: Prior study dated 03/20/2022. TECHNIQUE: Pre and postcontrast abdominal radiographs, before and after contrast injection through gastrostomy tube. FINDINGS: The initial hedge fund manager radiograph demonstrates gastrostomy tube in the left upper quadrant. Residual contrast noted throughout the colon. Appropriate opacification of the stomach after contrast injection through the gastrostomy tube compatible with appropriate positioning. No extravasation. No definite radiographic evidence of free peritoneal contrast. Visualized bowel gas pattern nonobstructive. Lung bases clear. No acute osseous abnormality or fracture. IMPRESSION: Gastrostomy tube appears appropriately positioned as above. Electronically Signedby GLORIA DHALIWAL MD on 03/21/2022 at 1143 Reported and signed by: GLORIA DHALIWAL MD CC: Manuel Rose DO; Archie Sunshine MD Technologist: Logan Deleon Time: DAP (Gy m2): Air Kerma (mGy): Trscr Dt/Tm: 03/21/2022 (1143) by:[email or web address] Orig Print D/T: S: 03/21/2022 (1146) BATCH NO: N/A Name: JERI VILLALOBOS [facility] Phys: Archie Rider MD [address] : 1975 Age: 46 Sex: F [place] [address] Loc: N.0385 1 Exam Date: 03/21/2022 Status: ADM IN PH: FAX: PAGE 1 Signed [id number] 11:36:00 Test Item Value Reference Range Interpretation Comments GLUBED (test code = GLUBED) 102 MG/DL 70-105 N BASIC METABOLIC [id number] 06:31:00 Test Item Value Reference Range Interpretation Comments SODIUM (test code 144 mmol/L 135-145 N = NA) POTASSIUM (test 3.3 mmol/L 3.6-5.0 L code = K) CHLORIDE (test 112 mmol/L 101-111 H code = CL) CARBON DIOXIDE 23 mmol/L 21-31 N (test code = CO2) GLUCOSE (test code 91 mg/dl 70-100 N = GLU) BLOOD UREA 23 mg/dl 6-20 H NITROGEN (test code = BUN) GLOMERULAR >=60 max >60 The estimated FILTRATION RATE estimate glomerular (test code = GFR) filtration rate is computed usingpatient ra ce, age (>18), sex, and serum creatinin e. If anyof the neede d data elements a re missing the Laboratory jarvis ot compute an estimation of t he glomerular filtration rate . CREATININE (test 0.62 mg/dL 0.44-1.03 N code = CREAT) CALCIUM (test code 8.6 mg/dL 8.5-10.5 N = CA) [id number] 06:29:00 Test Item Value Reference Range Interpretation Comments GLUBED (test code = GLUBED) 83 MG/DL 70-105 N CBC W/AUTO [id number] 06:02:00 Test Item Value Reference Range Interpretation Comments WHITE BLOOD CELL (test code = 5.3 x10 3/uL 3.2-11.5 N WBC) RED BLOOD CELL (test code = 3.66 x10(6)/m 3.70-5.10 L RBC) HEMOGLOBIN (test code = HGB) 10.5 g/dL 12.0-15.0 L HEMATOCRIT (test code = HCT) 34.4 % 35.7-44.8 L MEAN CELL VOLUME (test code = 94 fL 80-100 N MCV) MEAN CELL HGB (test code = MCH) 28.7 pg 26.2-33.8 N MEAN CELL HGB CONCENTRATION 30.5 g/dL 30.0-34.0 N (test code = MCHC) RED CELL DISTRIBUTION WIDTH 12.9 % 11.3-14.5 N (test code = RDW) PLATELET COUNT (test code = 212 x10 3/uL 130-408 N PLT) MEAN PLATELET VOLUME (test code 10.8 fL 8.6-12.6 N = MPV) NEUTROPHIL % (test code = NT%) 48.7 % 40.0-70.0 N IMMATURE GRANULOCYTE % (test 0.4 % 0.0-2.0 N code = IG%) LYMPHOCYTE % (test code = LY%) 38.4 % 20-40 MONOCYTE % (test code = MO%) 6.9 % 1-10 N EOSINOPHIL % (test code = EO%) 5.2 % 0.0-5.0 H BASOPHIL % (test code = BA%) 0.4 % 0.0-1.0 N NUCLEATED RBC % (test code = 0.0 % 0.0-0.9 N NRBC%) NEUTROPHIL # (test code = NT#) 2.6 x10 3/uL 1.6-7.2 N LYMPHOCYTE # (test code = LY#) 2.05 x10 3/uL 1.1-2.7 N MONOCYTE # (test code = MO#) 0.4 x10 3/uL 0.3-0.8 N EOSINOPHIL # (test code = EO#) 0.3 x10 3/uL 0.0-0.5 N BASOPHIL # (test code = BA#) 0.0 x10 3/uL 0.0-0.1 N [id number] 04:02:00 Test Item Value Reference Range Interpretation Comments GLUBED (test code = GLUBED) 88 MG/DL 70-105 N [id number] 21:27:00 Test Item Value Reference Range Interpretation Comments GLUBED (test code = GLUBED) 86 MG/DL 70-105 N [id number] 17:12:00 Test Item Value Reference Range Interpretation Comments GLUBED (test code = GLUBED) 80 MG/DL 70-105 N - CONT INJ GS/BURNS/[id number] 14:19:00 [facility] : 1975 Sex: FPatient Name: JERI VILLALOBOS Unit No: [id number] EXAMS: CPT: [id number] CONT INJ GS/BURNS/JJ/GJ [id number] EXAM:XR ABDOMEN 1 VIEW DATE: 03/20/2022 12:22 PM INDICATION: NG tube ADDITIONAL INFORMATION: None. COMPARISON: Abdominal radiograph on 03/11/2022. TECHNIQUE: Limited AP view of the abdomen for tube placement assessment. Contrast instilled through the PEG tube during the exam. Number of images: 1. FINDINGS: Feeding tube: Gastrostomy tube in expected position. Instillation of contrast reveals an intraluminal position without evidence of extravasation. Enteric suction tube: None. Other tubes, lines and hardware: None. Abdomen: There is a nonobstructive bowel gas pattern. IMPRESSION: Gastrostomy tube in adequate position with no extravasation identified. Nonobstructive bowel gas pattern. at 1419 Reported and signed by: Yung Abel MD CC: Manuel Rose DO; Archie Sunshine MD Technologist: Oly Deleon Time: DAP (Gy m2): Air Kerma (mGy): Trscr Dt/Tm: 03/20/2022 (1419) by:[email or web address] Orig Print D/T: S: 03/20/2022 (9153) BATCH NO: N/A Name: JERI VILLALOBOS [facility] Phys: Archie Rider MD [address] : 1975 Age: 46 Sex: F [place] [address] Loc: N.0385 1 Exam Date: 03/20/2022 Status: ADM IN PH: FAX: PAGE 1 Signed [id number] 11:21:00 Test Item Value Reference Range Interpretation Comments GLUBED (test code = GLUBED) 100 MG/DL 70-105 N BASIC METABOLIC [id number] 09:13:00 Test Item Value Reference Range Interpretation Comments SODIUM (test code 145 mmol/L 135-145 N = NA) POTASSIUM (test 4.0 mmol/L 3.6-5.0 N code = K) CHLORIDE (test 111 mmol/L 101-111 N code = CL) CARBON DIOXIDE 24 mmol/L 21-31 N (test code = CO2) GLUCOSE (test code 102 mg/dl 70-100 H = GLU) BLOOD UREA 31 mg/dl 6-20 H NITROGEN (test code = BUN) GLOMERULAR >=60 max >60 The estimated FILTRATION RATE estimate glomerular (test code = GFR) filtration rate is computed usingpatient ra ce, age (>18), sex, and serum creatinin e. If anyof the neede d data elements a re missing the Laboratory jarvis ot compute an estimation of t he glomerular filtration rate . CREATININE (test 0.79 mg/dL 0.44-1.03 N code = CREAT) CALCIUM (test code 8.8 mg/dL 8.5-10.5 N = CA) [id number] 09:13:00 Test Item Value Reference Range Interpretation Comments PHOSPHOROUS (test code = PHOS) 3.5 mg/dl 2.5-4.6 N [id number] 09:13:00 Test Item Value Reference Range Interpretation Comments MAGNESIUM (test code = MAG) 2.1 mg/dl 1.8-2.5 N CBC W/AUTO [id number] 08:42:00 Test Item Value Reference Range Interpretation Comments WHITE BLOOD CELL (test code = 7.6 x10 3/uL 3.2-11.5 N WBC) RED BLOOD CELL (test code = 3.71 x10(6)/m 3.70-5.10 N RBC) HEMOGLOBIN (test code = HGB) 10.7 g/dL 12.0-15.0 L HEMATOCRIT (test code = HCT) 35.2 % 35.7-44.8 L MEAN CELL VOLUME (test code = 95 fL 80-100 N MCV) MEAN CELL HGB (test code = MCH) 28.8 pg 26.2-33.8 N MEAN CELL HGB CONCENTRATION 30.4 g/dL 30.0-34.0 N (test code = MCHC) RED CELL DISTRIBUTION WIDTH 12.9 % 11.3-14.5 N (test code = RDW) PLATELET COUNT (test code = 221 x10 3/uL 130-408 N PLT) MEAN PLATELET VOLUME (test code 11.4 fL 8.6-12.6 N = MPV) NEUTROPHIL % (test code = NT%) 66.5 % 40.0-70.0 N IMMATURE GRANULOCYTE % (test 0.3 % 0.0-2.0 N code = IG%) LYMPHOCYTE % (test code = LY%) 24.1 % 20-40 N MONOCYTE % (test code = MO%) 5.6 % 1-10 N EOSINOPHIL % (test code = EO%) 3.1 % 0.0-5.0 N BASOPHIL % (test code = BA%) 0.4 % 0.0-1.0 N NUCLEATED RBC % (test code = 0.0 % 0.0-0.9 N NRBC%) NEUTROPHIL # (test code = NT#) 5.1 x10 3/uL 1.6-7.2 N LYMPHOCYTE # (test code = LY#) 1.84 x10 3/uL 1.1-2.7 N MONOCYTE # (test code = MO#) 0.4 x10 3/uL 0.3-0.8 N EOSINOPHIL # (test code = EO#) 0.2 x10 3/uL 0.0-0.5 N BASOPHIL # (test code = BA#) 0.0 x10 3/uL 0.0-0.1 N [id number] 06:38:00 Test Item Value Reference Range Interpretation Comments GLUBED (test code = GLUBED) 115 MG/DL 70-105 H [id number] 21:09:00 Test Item Value Reference Range Interpretation Comments GLUBED (test code = GLUBED) 115 MG/DL 70-105 H UR SODIUM [id number] 17:49:00 Test Item Value Reference Range Interpretation Comments UR SODIUM RANDOM 43 mmol/L No Normal R julia (test code = MACKENZIE) establishe d. UR CHLORIDE [id number] 17:49:00 Test Item Value Reference Range Interpretation Comments UR CHLORIDE RANDOM (test code = 22 mmol/L 15-300 N CLU) UR CREATININE [id number] 17:49:00 Test Item Value Reference Range Interpretation Comments UR CREATININE RANDOM (test code = 135 mg/dL 40-300 N CREATU) URINALYSIS [id number] 17:48:00 Test Item Value Reference Range Interpretation Comments UA COLOR (test code Kady YELLOW = COLU) UA APPEARANCE (test Turbid CLEAR code = APPU) UA GLUCOSE DIPSTICK NEGATIVE NEGATIVE (test code = DGLUU) UA BILIRUBIN NEGATIVE NEGATIVE DIPSTICK (test code = BILU) UA KETONE DIPSTICK NEGATIVE NEGATIVE (test code = KETU) UA SPECIFIC GRAVITY 1.025 1.001-1.030 (test code = SGU) UA BLOOD DIPSTICK NEGATIVE NEGATIVE (test code = KITA) UA PH DIPSTICK 6.0 5.0-9.0 (test code = RICHARD) UA PROTEIN DIPSTICK 2+ NEGATIVE A (test code = PROU) UA UROBILINOGEN 2.0 See_Comment A [Automated message] DIPSTICK (test code The syst em which = URO) generated this result transmitted ref erence range: <=1.0. T he reference range was not used to int erpret this result as normal/abnormal . UA NITRITE DIPSTICK NEGATIVE NEGATIVE (test code = SRIDHAR) UA ASCORBIC ACID POSITIVE A High levels of DIPSTICK (test code ascorbic acid may = AAU) cause false negativeresults for blood, glucose & nitrite. UA LEUKOCYTE 2+ NEGATIVE A ESTERASE DIPSTICK (test code = LEUU) UA WBC (test code = 11-20 /HPF 0-5 WBCU) UA RBC (test code = 11-20 /HPF 0-5 RBCU) UA EPITHELIAL CELLS MOD /LPF NONE-FEW (test code = EPIU) UA BACTERIA (test 1+ /HPF NONE SEEN A code = BACU) UA YEAST (test code NONE SEEN /HPF NONE SEEN = YEASTU) [id number] 16:41:00 Test Item Value Reference Range Interpretation Comments GLUBED (test code = GLUBED) 87 MG/DL 70-105 N - CT CHEST W/O [id number] 15:49:00 [facility] : 1975 Sex: FPatient Name: JERI VILLALOBOS Unit No: [id number] EXAMS: CPT: [id number] CT CHEST W/O CONTRAST [id number] TECHNIQUE: CT scan of the chest performed from the thoracic inlet through the upper abdomen without the administration of IV contrast. DLP: 409 mGy/cm. The study was performed with radiation dose optimization per ACR practice guidelines and special events manager's recommendations which includes: automated exposure control, adjustment of the mA and/or KV according to patient size, and/or use of iterative reconstruction technique. COMPARISON: CT chest dated 02/25/2022 CLINICAL HISTORY: Pneumonia FINDINGS: A tracheostomy tube is in good position. Mild consolidation is seen in the left lower lobe, significantly improved from the previous study. Atelectasis in the lung bases has also improved. No pleural effusion or pneumothorax. The heart and vasculature have unremarkable non- contrast appearance. There is no pericardial effusion. No large mediastinal mass is seen although evaluation is limited without IV contrast.Bilateral breast implants are intact. The visualized upper abdomen has unremarkable noncontrast appearance. No acute or aggressive bony lesion identified. IMPRESSION: Significant improvement of the left lower lobe consolidation and bibasilar atelectasis. at 1549 Reported and signed by: Ryan Cheney MD CC: Ruiz Vaughn MD; Manuel Rose DO Technologist: CELESTINE Stubbs CTDI: 11.16 DLP: 408.91 Trscr Dt/Tm: 03/19/2022 ([id number]) by:Lyly Orig Print D/T: S: 03/19/2022 ([id number]) BATCH NO: N/A Name: JERI [facility]ILLALOB[facility] Phys: Ruiz Wolfe MD [address] [facility] : 1975 Age: 46 Sex: F [place] [id number] Loc: [id number] 1 Exam Date: 03/19/2022 Status: ADM IN PH: FAX: PAGE 1 Signed [id number] 11:40:00 Test Item Value Reference Range Interpretation Comments GLUBED (test code = GLUBED) 138 MG/DL 70-105 H [id number] 05:46:00 Test Item Value Reference Range Interpretation Comments GLUBED (test code = GLUBED) 112 MG/DL 70-105 H BASIC METABOLIC [id number] 05:04:00 Test Item Value Reference Range Interpretation Comments SODIUM (test code 152 mmol/L 135-145 H = NA) POTASSIUM (test 3.7 mmol/L 3.6-5.0 N code = K) CHLORIDE (test 114 mmol/L 101-111 H code = CL) CARBON DIOXIDE 29 mmol/L 21-31 N (test code = CO2) GLUCOSE (test code 141 mg/dl 70-100 H = GLU) BLOOD UREA 33 mg/dl 6-20 H NITROGEN (test code = BUN) GLOMERULAR >=60 max >60 The estimated FILTRATION RATE estimate glomerular (test code = GFR) filtration rate is computed usingpatient ra ce, age (>18), sex, and serum creatinin e. If anyof the neede d data elements a re missing the Laboratory jarvis ot compute an estimation of t he glomerular filtration rate . CREATININE (test 0.88 mg/dL 0.44-1.03 N code = CREAT) CALCIUM (test code 9.2 mg/dL 8.5-10.5 N = CA) CBC W/AUTO [id number] 04:55:00 Test Item Value Reference Range Interpretation Comments WHITE BLOOD CELL (test code = 7.7 x10 3/uL 3.2-11.5 N WBC) RED BLOOD CELL (test code = 4.25 x10(6)/m 3.70-5.10 N RBC) HEMOGLOBIN (test code = HGB) 11.8 g/dL 12.0-15.0 L HEMATOCRIT (test code = HCT) 40.0 % 35.7-44.8 N MEAN CELL VOLUME (test code = 94 fL 80-100 N MCV) MEAN CELL HGB (test code = MCH) 27.8 pg 26.2-33.8 N MEAN CELL HGB CONCENTRATION 29.5 g/dL 30.0-34.0 L (test code = MCHC) RED CELL DISTRIBUTION WIDTH 13.2 % 11.3-14.5 N (test code = RDW) PLATELET COUNT (test code = 237 x10 3/uL 130-408 N PLT) MEAN PLATELET VOLUME (test code 11.1 fL 8.6-12.6 N = MPV) NEUTROPHIL % (test code = NT%) 61.2 % 40.0-70.0 N LYMPHOCYTE % (test code = LY%) 28.0 % 20-40 N MONOCYTE % (test code = MO%) 5.4 % 1-10 N EOSINOPHIL % (test code = EO%) 4.7 % 0.0-5.0 N BASOPHIL % (test code = BA%) 0.4 % 0.0-1.0 N NUCLEATED RBC % (test code = 0.0 % 0.0-0.9 N NRBC%) NEUTROPHIL # (test code = NT#) 4.7 x10 3/uL 1.6-7.2 N LYMPHOCYTE # (test code = LY#) 2.14 x10 3/uL 1.1-2.7 N MONOCYTE # (test code = MO#) 0.4 x10 3/uL 0.3-0.8 N EOSINOPHIL # (test code = EO#) 0.4 x10 3/uL 0.0-0.5 N IMMATURE GRANULOCYTE % (test 0.3 % 0.0-2.0 N code = IG%) BASOPHIL # (test code = BA#) 0.0 x10 3/uL 0.0-0.1 N [id number] 20:55:00 Test Item Value Reference Range Interpretation Comments GLUBED (test code = GLUBED) 102 MG/DL 70-105 N [id number] 16:05:00 Test Item Value Reference Range Interpretation Comments GLUBED (test code = GLUBED) 95 MG/DL 70-105 N BASIC METABOLIC [id number] 07:53:00 Test Item Value Reference Range Interpretation Comments SODIUM (test code 148 mmol/L 135-145 H = NA) POTASSIUM (test 4.3 mmol/L 3.6-5.0 N code = K) CHLORIDE (test 119 mmol/L 101-111 H code = CL) CARBON DIOXIDE 23 mmol/L 21-31 N (test code = CO2) GLUCOSE (test code 134 mg/dl 70-100 H = GLU) BLOOD UREA 34 mg/dl 6-20 H NITROGEN (test code = BUN) GLOMERULAR >=60 max >60 The estimated FILTRATION RATE estimate glomerular (test code = GFR) filtration rate is computed usingpatient ra ce, age (>18), sex, and serum creatinin e. If anyof the neede d data elements a re missing the Laboratory jarvis ot compute an estimation of t he glomerular filtration rate . CREATININE (test 0.93 mg/dL 0.44-1.03 N code = CREAT) CALCIUM (test code 9.3 mg/dL 8.5-10.5 N = CA) CBC W/AUTO [id number] 07:36:00 Test Item Value Reference Range Interpretation Comments WHITE BLOOD CELL (test code = 8.4 x10 3/uL 3.2-11.5 N WBC) RED BLOOD CELL (test code = 4.36 x10(6)/m 3.70-5.10 N RBC) HEMOGLOBIN (test code = HGB) 12.3 g/dL 12.0-15.0 N HEMATOCRIT (test code = HCT) 41.6 % 35.7-44.8 N MEAN CELL VOLUME (test code = 95 fL 80-100 N MCV) MEAN CELL HGB (test code = MCH) 28.2 pg 26.2-33.8 N MEAN CELL HGB CONCENTRATION 29.6 g/dL 30.0-34.0 L (test code = MCHC) RED CELL DISTRIBUTION WIDTH 13.2 % 11.3-14.5 N (test code = RDW) PLATELET COUNT (test code = 196 x10 3/uL 130-408 N PLT) MEAN PLATELET VOLUME (test code 11.0 fL 8.6-12.6 N = MPV) NEUTROPHIL % (test code = NT%) 65.5 % 40.0-70.0 N LYMPHOCYTE % (test code = LY%) 24.2 % 20-40 N MONOCYTE % (test code = MO%) 6.0 % 1-10 N EOSINOPHIL % (test code = EO%) 3.6 % 0.0-5.0 N BASOPHIL % (test code = BA%) 0.5 % 0.0-1.0 N NUCLEATED RBC % (test code = 0.0 % 0.0-0.9 N NRBC%) NEUTROPHIL # (test code = NT#) 5.5 x10 3/uL 1.6-7.2 N LYMPHOCYTE # (test code = LY#) 2.02 x10 3/uL 1.1-2.7 N MONOCYTE # (test code = MO#) 0.5 x10 3/uL 0.3-0.8 N EOSINOPHIL # (test code = EO#) 0.3 x10 3/uL 0.0-0.5 N IMMATURE GRANULOCYTE % (test 0.2 % 0.0-2.0 N code = IG%) BASOPHIL # (test code = BA#) 0.0 x10 3/uL 0.0-0.1 N DIFFERENTIAL [id number] 07:36:00 Test Item Value Reference Range Interpretation Comments PLATELET MORPHOLOGY (test code = Normal NORMAL PLTMORPH) [id number] 06:50:00 Test Item Value Reference Range Interpretation Comments GLUBED (test code = GLUBED) 114 MG/DL 70-105 H [id number] 00:10:00 Test Item Value Reference Range Interpretation Comments GLUBED (test code = GLUBED) 117 MG/DL 70-105 H BASIC METABOLIC [id number] 13:11:00 Test Item Value Reference Range Interpretation Comments SODIUM (test code 152 mmol/L 135-145 H = NA) POTASSIUM (test 4.1 mmol/L 3.6-5.0 N code = K) CHLORIDE (test 111 mmol/L 101-111 N code = CL) CARBON DIOXIDE 30 mmol/L 21-31 N (test code = CO2) GLUCOSE (test code 137 mg/dl 70-100 H = GLU) BLOOD UREA 30 mg/dl 6-20 H NITROGEN (test code = BUN) GLOMERULAR >=60 max >60 The estimated FILTRATION RATE estimate glomerular (test code = GFR) filtration rate is computed usingpatient ra ce, age (>18), sex, and serum creatinin e. If anyof the neede d data elements a re missing the Laboratory jarvis ot compute an estimation of t he glomerular filtration rate . CREATININE (test 0.90 mg/dL 0.44-1.03 N code = CREAT) CALCIUM (test code 9.4 mg/dL 8.5-10.5 N = CA) CBC W/AUTO [id number] 13:02:00 Test Item Value Reference Range Interpretation Comments WHITE BLOOD CELL (test code = 10.0 x10 3/uL 3.2-11.5 N WBC) RED BLOOD CELL (test code = 4.46 x10(6)/m 3.70-5.10 N RBC) HEMOGLOBIN (test code = HGB) 12.7 g/dL 12.0-15.0 N HEMATOCRIT (test code = HCT) 41.8 % 35.7-44.8 N MEAN CELL VOLUME (test code = 94 fL 80-100 N MCV) MEAN CELL HGB (test code = MCH) 28.5 pg 26.2-33.8 N MEAN CELL HGB CONCENTRATION 30.4 g/dL 30.0-34.0 N (test code = MCHC) RED CELL DISTRIBUTION WIDTH 13.1 % 11.3-14.5 N (test code = RDW) PLATELET COUNT (test code = 242 x10 3/uL 130-408 N PLT) MEAN PLATELET VOLUME (test code 11.1 fL 8.6-12.6 N = MPV) NEUTROPHIL % (test code = NT%) 69.4 % 40.0-70.0 N LYMPHOCYTE % (test code = LY%) 21.6 % 20-40 N MONOCYTE % (test code = MO%) 5.8 % 1-10 N EOSINOPHIL % (test code = EO%) 2.5 % 0.0-5.0 N BASOPHIL % (test code = BA%) 0.5 % 0.0-1.0 N NUCLEATED RBC % (test code = 0.0 % 0.0-0.9 N NRBC%) NEUTROPHIL # (test code = NT#) 7.0 x10 3/uL 1.6-7.2 N LYMPHOCYTE # (test code = LY#) 2.16 x10 3/uL 1.1-2.7 N MONOCYTE # (test code = MO#) 0.6 x10 3/uL 0.3-0.8 N EOSINOPHIL # (test code = EO#) 0.3 x10 3/uL 0.0-0.5 N IMMATURE GRANULOCYTE % (test 0.2 % 0.0-2.0 N code = IG%) BASOPHIL # (test code = BA#) 0.1 x10 3/uL 0.0-0.1 N [id number] 05:54:00 Test Item Value Reference Range Interpretation Comments GLUBED (test code = GLUBED) 130 MG/DL 70-105 H [id number] 01:01:00 Test Item Value Reference Range Interpretation Comments GLUBED (test code = GLUBED) 135 MG/DL 70-105 H [id number] 18:22:00 Test Item Value Reference Range Interpretation Comments GLUBED (test code = GLUBED) 121 MG/DL 70-105 H [id number] 12:16:00 Test Item Value Reference Range Interpretation Comments GLUBED (test code = GLUBED) 118 MG/DL 70-105 H [id number] 06:15:00 Test Item Value Reference Range Interpretation Comments GLUBED (test code = GLUBED) 117 MG/DL 70-105 H [id number] 20:47:00 Test Item Value Reference Range Interpretation Comments GLUBED (test code = GLUBED) 107 MG/DL 70-105 H [id number] 15:49:00 Test Item Value Reference Range Interpretation Comments GLUBED (test code = GLUBED) 118 MG/DL 70-105 H [id number] 13:23:00 Test Item Value Reference Range Interpretation Comments GLUBED (test code = GLUBED) 135 MG/DL 70-105 H [id number] 08:39:00 Test Item Value Reference Range Interpretation Comments GLUBED (test code = GLUBED) 120 MG/DL 70-105 H BASIC METABOLIC [id number] 07:52:00 Test Item Value Reference Range Interpretation Comments SODIUM (test code 148 mmol/L 135-145 H = NA) POTASSIUM (test 4.2 mmol/L 3.6-5.0 N code = K) CHLORIDE (test 109 mmol/L 101-111 N code = CL) CARBON DIOXIDE 30 mmol/L 21-31 N (test code = CO2) GLUCOSE (test code 144 mg/dl 70-100 H = GLU) BLOOD UREA 31 mg/dl 6-20 H NITROGEN (test code = BUN) GLOMERULAR >=60 max >60 The estimated FILTRATION RATE estimate glomerular (test code = GFR) filtration rate is computed usingpatient ra ce, age (>18), sex, and serum creatinin e. If anyof the neede d data elements a re missing the Laboratory jarvis ot compute an estimation of t he glomerular filtration rate . CREATININE (test 0.93 mg/dL 0.44-1.03 N code = CREAT) CALCIUM (test code 9.3 mg/dL 8.5-10.5 N = CA) CBC W/AUTO [id number] 07:37:00 Test Item Value Reference Range Interpretation Comments WHITE BLOOD CELL (test code = 10.6 x10 3/uL 3.2-11.5 N WBC) RED BLOOD CELL (test code = 4.26 x10(6)/m 3.70-5.10 N RBC) HEMOGLOBIN (test code = HGB) 12.2 g/dL 12.0-15.0 N HEMATOCRIT (test code = HCT) 40.0 % 35.7-44.8 N MEAN CELL VOLUME (test code = 94 fL 80-100 N MCV) MEAN CELL HGB (test code = MCH) 28.6 pg 26.2-33.8 N MEAN CELL HGB CONCENTRATION 30.5 g/dL 30.0-34.0 N (test code = MCHC) RED CELL DISTRIBUTION WIDTH 13.2 % 11.3-14.5 N (test code = RDW) PLATELET COUNT (test code = 173 x10 3/uL 130-408 N PLT) MEAN PLATELET VOLUME (test code 11.3 fL 8.6-12.6 N = MPV) NEUTROPHIL % (test code = NT%) 75.5 % 40.0-70.0 H LYMPHOCYTE % (test code = LY%) 17.3 % 20-40 L MONOCYTE % (test code = MO%) 5.4 % 1-10 N EOSINOPHIL % (test code = EO%) 1.0 % 0.0-5.0 N BASOPHIL % (test code = BA%) 0.5 % 0.0-1.0 N NUCLEATED RBC % (test code = 0.0 % 0.0-0.9 N NRBC%) NEUTROPHIL # (test code = NT#) 8.0 x10 3/uL 1.6-7.2 H LYMPHOCYTE # (test code = LY#) 1.83 x10 3/uL 1.1-2.7 N MONOCYTE # (test code = MO#) 0.6 x10 3/uL 0.3-0.8 N EOSINOPHIL # (test code = EO#) 0.1 x10 3/uL 0.0-0.5 N IMMATURE GRANULOCYTE % (test 0.3 % 0.0-2.0 N code = IG%) BASOPHIL # (test code = BA#) 0.1 x10 3/uL 0.0-0.1 N [id number] 06:16:00 Test Item Value Reference Range Interpretation Comments GLUBED (test code = GLUBED) 128 MG/DL 70-105 H [id number] 20:22:00 Test Item Value Reference Range Interpretation Comments GLUBED (test code = GLUBED) 120 MG/DL 70-105 H [id number] 14:13:00 Test Item Value Reference Range Interpretation Comments GLUBED (test code = GLUBED) 136 MG/DL 70-105 H BASIC METABOLIC [id number] 09:20:00 Test Item Value Reference Range Interpretation Comments SODIUM (test code 146 mmol/L 135-145 H = NA) POTASSIUM (test 3.8 mmol/L 3.6-5.0 N code = K) CHLORIDE (test 109 mmol/L 101-111 N code = CL) CARBON DIOXIDE 31 mmol/L 21-31 N (test code = CO2) GLUCOSE (test code 172 mg/dl 70-100 H = GLU) BLOOD UREA 30 mg/dl 6-20 H NITROGEN (test code = BUN) GLOMERULAR >=60 max >60 The estimated FILTRATION RATE estimate glomerular (test code = GFR) filtration rate is computed usingpatient ra ce, age (>18), sex, and serum creatinin e. If anyof the neede d data elements a re missing the Laboratory jarvis ot compute an estimation of t he glomerular filtration rate . CREATININE (test 0.76 mg/dL 0.44-1.03 N code = CREAT) CALCIUM (test code 9.4 mg/dL 8.5-10.5 N = CA) CBC W/AUTO [id number] 08:59:00 Test Item Value Reference Range Interpretation Comments WHITE BLOOD CELL (test code = 10.5 x10 3/uL 3.2-11.5 N WBC) RED BLOOD CELL (test code = 4.14 x10(6)/m 3.70-5.10 N RBC) HEMOGLOBIN (test code = HGB) 11.9 g/dL 12.0-15.0 L HEMATOCRIT (test code = HCT) 38.0 % 35.7-44.8 N MEAN CELL VOLUME (test code = 92 fL 80-100 N MCV) MEAN CELL HGB (test code = MCH) 28.7 pg 26.2-33.8 N MEAN CELL HGB CONCENTRATION 31.3 g/dL 30.0-34.0 N (test code = MCHC) RED CELL DISTRIBUTION WIDTH 13.4 % 11.3-14.5 N (test code = RDW) PLATELET COUNT (test code = 228 x10 3/uL 130-408 N PLT) MEAN PLATELET VOLUME (test code 9.8 fL 8.6-12.6 N = MPV) NEUTROPHIL % (test code = NT%) 72.7 % 40.0-70.0 H IMMATURE GRANULOCYTE % (test 0.2 % 0.0-2.0 N code = IG%) LYMPHOCYTE % (test code = LY%) 19.8 % 20-40 L MONOCYTE % (test code = MO%) 5.8 % 1-10 N EOSINOPHIL % (test code = EO%) 1.1 % 0.0-5.0 N BASOPHIL % (test code = BA%) 0.4 % 0.0-1.0 N NUCLEATED RBC % (test code = 0.0 % 0.0-0.9 N NRBC%) NEUTROPHIL # (test code = NT#) 7.7 x10 3/uL 1.6-7.2 H LYMPHOCYTE # (test code = LY#) 2.08 x10 3/uL 1.1-2.7 N MONOCYTE # (test code = MO#) 0.6 x10 3/uL 0.3-0.8 N EOSINOPHIL # (test code = EO#) 0.1 x10 3/uL 0.0-0.5 N BASOPHIL # (test code = BA#) 0.0 x10 3/uL 0.0-0.1 N [id number] 05:46:00 Test Item Value Reference Range Interpretation Comments GLUBED (test code = GLUBED) 149 MG/DL 70-105 H [id number] 20:39:00 Test Item Value Reference Range Interpretation Comments GLUBED (test code = GLUBED) 115 MG/DL 70-105 H [id number] 17:26:00 Test Item Value Reference Range Interpretation Comments GLUBED (test code = GLUBED) 125 MG/DL 70-105 H BASIC METABOLIC [id number] 12:37:00 Test Item Value Reference Range Interpretation Comments SODIUM (test code 143 mmol/L 135-145 N = NA) POTASSIUM (test 4.1 mmol/L 3.6-5.0 N code = K) CHLORIDE (test 107 mmol/L 101-111 N code = CL) CARBON DIOXIDE 30 mmol/L 21-31 N (test code = CO2) GLUCOSE (test code 120 mg/dl 70-100 H = GLU) BLOOD UREA 28 mg/dl 6-20 H NITROGEN (test code = BUN) GLOMERULAR >=60 max >60 The estimated FILTRATION RATE estimate glomerular (test code = GFR) filtration rate is computed usingpatient ra ce, age (>18), sex, and serum creatinin e. If anyof the neede d data elements a re missing the Laboratory jarvis ot compute an estimation of t he glomerular filtration rate . CREATININE (test 0.81 mg/dL 0.44-1.03 N code = CREAT) CALCIUM (test code 9.4 mg/dL 8.5-10.5 N = CA) CBC W/AUTO [id number] 12:25:00 Test Item Value Reference Range Interpretation Comments WHITE BLOOD CELL (test code = 13.9 x10 3/uL 3.2-11.5 H WBC) RED BLOOD CELL (test code = 4.70 x10(6)/m 3.70-5.10 N RBC) HEMOGLOBIN (test code = HGB) 13.8 g/dL 12.0-15.0 N HEMATOCRIT (test code = HCT) 43.3 % 35.7-44.8 N MEAN CELL VOLUME (test code = 92 fL 80-100 N MCV) MEAN CELL HGB (test code = MCH) 29.4 pg 26.2-33.8 N MEAN CELL HGB CONCENTRATION 31.9 g/dL 30.0-34.0 N (test code = MCHC) RED CELL DISTRIBUTION WIDTH 13.5 % 11.3-14.5 N (test code = RDW) PLATELET COUNT (test code = 248 x10 3/uL 130-408 N PLT) MEAN PLATELET VOLUME (test code 9.9 fL 8.6-12.6 N = MPV) NEUTROPHIL % (test code = NT%) 80.1 % 40.0-70.0 H LYMPHOCYTE % (test code = LY%) 14.2 % 20-40 L MONOCYTE % (test code = MO%) 5.0 % 1-10 N EOSINOPHIL % (test code = EO%) 0.1 % 0.0-5.0 N BASOPHIL % (test code = BA%) 0.2 % 0.0-1.0 N NUCLEATED RBC % (test code = 0.0 % 0.0-0.9 N NRBC%) NEUTROPHIL # (test code = NT#) 11.2 x10 3/uL 1.6-7.2 H LYMPHOCYTE # (test code = LY#) 1.97 x10 3/uL 1.1-2.7 N MONOCYTE # (test code = MO#) 0.7 x10 3/uL 0.3-0.8 N EOSINOPHIL # (test code = EO#) 0.0 x10 3/uL 0.0-0.5 N IMMATURE GRANULOCYTE % (test 0.4 % 0.0-2.0 N code = IG%) BASOPHIL # (test code = BA#) 0.0 x10 3/uL 0.0-0.1 N Spec Comments: TRANSPORT TECHNICIAN [id number] 12:16:00 Test Item Value Reference Range Interpretation Comments GLUBED (test code = GLUBED) 120 MG/DL 70-105 H LACTIC [id number] 11:58:00 Test Item Value Reference Range Interpretation Comments LACTIC ACID (test code = LACT) 1.5 mmol/L 0.5-2.0 N [id number] 06:32:00 Test Item Value Reference Range Interpretation Comments GLUBED (test code = GLUBED) 142 MG/DL 70-105 H [id number] 04:46:00 Test Item Value Reference Range Interpretation Comments GLUBED (test code = GLUBED) 133 MG/DL 70-105 H [id number] 21:12:00 Test Item Value Reference Range Interpretation Comments GLUBED (test code = GLUBED) 143 MG/DL 70-105 H [id number] 16:54:00 Test Item Value Reference Range Interpretation Comments GLUBED (test code = GLUBED) 118 MG/DL 70-105 H [id number] 12:48:00 Test Item Value Reference Range Interpretation Comments GLUBED (test code = GLUBED) 137 MG/DL 70-105 H - XR CHEST 1 [id number] 07:19:00 [facility] [place] : 1975 Sex: FPatient Name: JERI VILLALOBOS Clifford Unit No: [id number] EXAMS: CPT: [id number] XR CHEST 1 V [id number] Comparison study: 03/09/2022 History: fu pneumonia CHEST 1 VIEW FINDINGS: There is been no significant change in the left lower lobe subsegmental atelectasis and/or infiltrates. The right lung is clear. The heart size is magnified by the AP technique. The pulmonary vasculature is within normal limits. No pneumothora x or pleural effusion is present. No acute fracture is identified. IMPRESSION: 1. No significant change. at 0719 Reported and signed by: Travis Bashir MD CC: Ruiz Vaughn MD; Manuel Rose DO Technologist: Nahomi Deleon Time: DAP (Gy m2): Air Kerma (mGy): Trscr Dt/Tm: 03/12/2022 (718) by:[email or web address] Orig Print D/T: S: 03/12/2022 (0722) BATCH NO: N/A Name: JERI VILLALOBOS [facility] Phys: Ruiz Wolfe MD [address] [facility] : 1975 Age: 46 Sex: F [place] [address] Loc:N.0385 1 Exam Date: 03/12/2022 Status: ADM IN PH: FAX: PAGE 1 Signed ReportCBC W/AUTO [id number] 07:06:00 Test Item Value Reference Range Interpretation Comments WHITE BLOOD CELL (test code = 13.9 x10 3/uL 3.2-11.5 H WBC) RED BLOOD CELL (test code = 5.15 x10(6)/m 3.70-5.10 H RBC) HEMOGLOBIN (test code = HGB) 15.0 g/dL 12.0-15.0 HEMATOCRIT (test code = HCT) 46.4 % 35.7-44.8 H MEAN CELL VOLUME (test code = 90 fL 80-100 N MCV) MEAN CELL HGB (test code = MCH) 29.1 pg 26.2-33.8 N MEAN CELL HGB CONCENTRATION 32.3 g/dL 30.0-34.0 N (test code = MCHC) RED CELL DISTRIBUTION WIDTH 13.7 % 11.3-14.5 N (test code = RDW) PLATELET COUNT (test code = 258 x10 3/uL 130-408 N PLT) MEAN PLATELET VOLUME (test code 9.7 fL 8.6-12.6 N = MPV) NEUTROPHIL % (test code = NT%) 79.4 % 40.0-70.0 H IMMATURE GRANULOCYTE % (test 0.4 % 0.0-2.0 N code = IG%) LYMPHOCYTE % (test code = LY%) 13.6 % 20-40 L MONOCYTE % (test code = MO%) 5.7 % 1-10 N EOSINOPHIL % (test code = EO%) 0.5 % 0.0-5.0 N BASOPHIL % (test code = BA%) 0.4 % 0.0-1.0 N NUCLEATED RBC % (test code = 0.0 % 0.0-0.9 N NRBC%) NEUTROPHIL # (test code = NT#) 11.1 x10 3/uL 1.6-7.2 H LYMPHOCYTE # (test code = LY#) 1.90 x10 3/uL 1.1-2.7 N MONOCYTE # (test code = MO#) 0.8 x10 3/uL 0.3-0.8 N EOSINOPHIL # (test code = EO#) 0.1 x10 3/uL 0.0-0.5 N BASOPHIL # (test code = BA#) 0.1 x10 3/uL 0.0-0.1 N PLATELET ESTIMATE (test code = ADEQUATE ADEQUATE PLTEST) DIFFERENTIAL [id number] 07:06:00 Test Item Value Reference Range Interpretation Comments PLATELET MORPHOLOGY (test code = Normal NORMAL PLTMORPH) BASIC METABOLIC [id number] 06:45:00 Test Item Value Reference Range Interpretation Comments SODIUM (test code 142 mmol/L 135-145 N = NA) POTASSIUM (test 4.7 mmol/L 3.6-5.0 N code = K) CHLORIDE (test 104 mmol/L 101-111 N code = CL) CARBON DIOXIDE 28 mmol/L 21-31 N (test code = CO2) GLUCOSE (test code 140 mg/dl 70-100 H = GLU) BLOOD UREA 25 mg/dl 6-20 H NITROGEN (test code = BUN) GLOMERULAR >=60 max >60 The estimated FILTRATION RATE estimate glomerular (test code = GFR) filtration rate is computed usingpatient ra ce, age (>18), sex, and serum creatinin e. If anyof the neede d data elements a re missing the Laboratory jarvis ot compute an estimation of t he glomerular filtration rate . CREATININE (test 0.86 mg/dL 0.44-1.03 N code = CREAT) CALCIUM (test code 9.9 mg/dL 8.5-10.5 N = CA) [id number] 06:45:00 Test Item Value Reference Range Interpretation Comments MAGNESIUM (test code = MAG) 2.4 mg/dl 1.8-2.5 N [id number] 06:32:00 Test Item Value Reference Range Interpretation Comments GLUBED (test code = GLUBED) 125 MG/DL 70-105 H [id number] 21:02:00 Test Item Value Reference Range Interpretation Comments GLUBED (test code = GLUBED) 125 MG/DL 70-105 H [id number] 17:37:00 Test Item Value Reference Range Interpretation Comments GLUBED (test code = GLUBED) 119 MG/DL 70-105 H - XR ABDOMEN [id number] 12:22:00 [facility] : 1975 Sex: FPatient Name: JERI VILLALOBOS Unit No: [id number] EXAMS: CPT: [id number] XR ABDOMEN 1V [id number] ABDOMEN RADIOGRAPH, 1 VIEW: Supine. HISTORY: DISLODGED PEG TUBE? COMPARISON: February 11, 2020. FINDINGS: A PEG tube projected over the left upper abdomen. The abdominal gas pattern unobstructed. No significant calcifications are encountered. Difficult to evaluate free air on supine film. IMPRESSION: A PEG tube projected over the left upper abdomen. If continued clinical concern, a PEG tube check is recommended at 1222 Reported and signed by: Jalen Black MD CC:Brittney Bryant DO; Manuel Rose DO Technologist: Papito Deleon Time: DAP (Gy m2): Air Kerma (mGy): Trscr Dt/Tm: 03/11/2022 (1222) by:[email or web address] Orig Print D/T: S: 03/11/2022 (1225) BATCH NO: N/A Name: JERI VILLALOBOS [facility] Phys: Brittney Zamarripa DO [address] : 1975 Age: 46 Sex: F [place] [address] Loc: N.0385 1 Exam Date: 03/11/2022 Status: ADM IN PH: FAX: PAGE 1 Signed [id number] 12:21:00 Test Item Value Reference Range Interpretation Comments GLUBED (test code = GLUBED) 124 MG/DL 70-105 H [id number] 04:22:00 Test Item Value Reference Range Interpretation Comments GLUBED (test code = GLUBED) 109 MG/DL 70-105 H [id number] 22:04:00 Test Item Value Reference Range Interpretation Comments GLUBED (test code = GLUBED) 117 MG/DL 70-105 H [id number] 15:19:00 Test Item Value Reference Range Interpretation Comments GLUBED (test code = GLUBED) 126 MG/DL 70-105 H [id number] 10:52:00 Test Item Value Reference Range Interpretation Comments GLUBED (test code = GLUBED) 141 MG/DL 70-105 H [id number] 05:53:00 Test Item Value Reference Range Interpretation Comments GLUBED (test code = GLUBED) 151 MG/DL 70-105 H [id number] 21:42:00 Test Item Value Reference Range Interpretation Comments GLUBED (test code = GLUBED) 131 MG/DL 70-105 H [id number] 15:26:00 Test Item Value Reference Range Interpretation Comments GLUBED (test code = GLUBED) 136 MG/DL 70-105 H [id number] 11:43:00 Test Item Value Reference Range Interpretation Comments GLUBED (test code = GLUBED) 137 MG/DL 70-105 H - XR CHEST 1 [id number] 07:21:00 [facility] VILLALOBOSNahum Horton : 1975 Sex: FPatient Name: MIRELA VILLALOBOSNahum Horton Unit No: [id number] EXAMS: CPT: [id number] XR CHEST 1 V [id number] CHEST 1 VIEW:COMPARISON: 03/04/2022 CLINICAL HISTORY: Follow-up pneumonia FINDINGS: Left lower lobe pneumonia has mildly improved. Mild opacity seen in the right lower lobe, probably atelectasis, improved as well. Small left pleural effusion suspected. No pneumothorax. Heart size is with in normal limit. No acute bony abnormality seen. IMPRESSION: Improved left lower lobe pneumonia and right basilar atelectasis. Small left pleural effusion. at 0721 Reported and signed by: Ryan Cheney MD CC: Ruiz Vaughn MD; Manuel Rose DO Technologist: Virgilio Muñoz Time: DAP (Gy m2): Air Kerma (mGy): Trscr Dt/Tm: 03/09/2022 (720) by:Lyly Orig Print D/T: S: 03/09/2022 (0724) BATCH NO: N/A Name: FABIJERI [facility] [place] Phys: Ruiz Wolfe MD [address] [facility] : 1975 Age: 46 Sex: F [place], [place] [address] [facility] [id number] Loc: N.[id number] 1 Exam Date: 03/09/2022 Status: ADM IN PH: FAX: PAGE 1 Signed [id number] 06:09:00 Test Item Value Reference Range Interpretation Comments GLUBED (test code = GLUBED) 160 MG/DL 70-105 H [id number] 20:33:00 Test Item Value Reference Range Interpretation Comments GLUBED (test code = GLUBED) 115 MG/DL 70-105 H [id number] 15:34:00 Test Item Value Reference Range Interpretation Comments GLUBED (test code = GLUBED) 99 MG/DL 70-105 N [id number] 12:13:00 Test Item Value Reference Range Interpretation Comments GLUBED (test code = GLUBED) 112 MG/DL 70-105 H CBC W/AUTO [id number] 06:41:00 Test Item Value Reference Range Interpretation Comments WHITE BLOOD CELL (test code = 8.8 x10 3/uL 3.2-11.5 N WBC) RED BLOOD CELL (test code = 4.35 x10(6)/m 3.70-5.10 N RBC) HEMOGLOBIN (test code = HGB) 12.4 g/dL 12.0-15.0 N HEMATOCRIT (test code = HCT) 38.5 % 35.7-44.8 N MEAN CELL VOLUME (test code = 89 fL 80-100 N MCV) MEAN CELL HGB (test code = MCH) 28.5 pg 26.2-33.8 N MEAN CELL HGB CONCENTRATION 32.2 g/dL 30.0-34.0 N (test code = MCHC) RED CELL DISTRIBUTION WIDTH 13.7 % 11.3-14.5 N (test code = RDW) PLATELET COUNT (test code = 323 x10 3/uL 130-408 N PLT) MEAN PLATELET VOLUME (test code 10.0 fL 8.6-12.6 N = MPV) NEUTROPHIL % (test code = NT%) 66.4 % 40.0-70.0 N LYMPHOCYTE % (test code = LY%) 23.6 % 20-40 N MONOCYTE % (test code = MO%) 6.8 % 1-10 N EOSINOPHIL % (test code = EO%) 2.0 % 0.0-5.0 N BASOPHIL % (test code = BA%) 0.6 % 0.0-1.0 N NUCLEATED RBC % (test code = 0.0 % 0.0-0.9 N NRBC%) NEUTROPHIL # (test code = NT#) 5.9 x10 3/uL 1.6-7.2 N LYMPHOCYTE # (test code = LY#) 2.08 x10 3/uL 1.1-2.7 N MONOCYTE # (test code = MO#) 0.6 x10 3/uL 0.3-0.8 N EOSINOPHIL # (test code = EO#) 0.2 x10 3/uL 0.0-0.5 N IMMATURE GRANULOCYTE % (test 0.6 % 0.0-2.0 N code = IG%) BASOPHIL # (test code = BA#) 0.1 x10 3/uL 0.0-0.1 N BASIC METABOLIC [id number] 06:23:00 Test Item Value Reference Range Interpretation Comments SODIUM (test code 138 mmol/L 135-145 N = NA) POTASSIUM (test 4.0 mmol/L 3.6-5.0 N code = K) CHLORIDE (test 100 mmol/L 101-111 L code = CL) CARBON DIOXIDE 30 mmol/L 21-31 N (test code = CO2) GLUCOSE (test code 149 mg/dl 70-100 H = GLU) BLOOD UREA 20 mg/dl 6-20 N NITROGEN (test code = BUN) GLOMERULAR >=60 max >60 The estimated FILTRATION RATE estimate glomerular (test code = GFR) filtration rate is computed usingpatient ra ce, age (>18), sex, and serum creatinin e. If anyof the neede d data elements a re missing the Laboratory jarvis ot compute an estimation of t he glomerular filtration rate . CREATININE (test 0.68 mg/dL 0.44-1.03 N code = CREAT) CALCIUM (test code 9.4 mg/dL 8.5-10.5 N = CA) [id number] 06:16:00 Test Item Value Reference Range Interpretation Comments GLUBED (test code = GLUBED) 114 MG/DL 70-105 H [id number] 20:48:00 Test Item Value Reference Range Interpretation Comments GLUBED (test code = GLUBED) 119 MG/DL 70-105 H [id number] 16:26:00 Test Item Value Reference Range Interpretation Comments GLUBED (test code = GLUBED) 132 MG/DL 70-105 H [id number] 13:48:00 Test Item Value Reference Range Interpretation Comments GLUBED (test code = GLUBED) 126 MG/DL 70-105 H CBC W/AUTO [id number] 10:41:00 Test Item Value Reference Range Interpretation Comments WHITE BLOOD CELL (test code = 7.6 x10 3/uL 3.2-11.5 N WBC) RED BLOOD CELL (test code = 4.09 x10(6)/m 3.70-5.10 N RBC) HEMOGLOBIN (test code = HGB) 11.6 g/dL 12.0-15.0 L HEMATOCRIT (test code = HCT) 36.4 % 35.7-44.8 N MEAN CELL VOLUME (test code = 89 fL 80-100 N MCV) MEAN CELL HGB (test code = MCH) 28.4 pg 26.2-33.8 N MEAN CELL HGB CONCENTRATION 31.9 g/dL 30.0-34.0 N (test code = MCHC) RED CELL DISTRIBUTION WIDTH 13.8 % 11.3-14.5 N (test code = RDW) PLATELET COUNT (test code = 262 x10 3/uL 130-408 N PLT) MEAN PLATELET VOLUME (test code 10.3 fL 8.6-12.6 N = MPV) NEUTROPHIL % (test code = NT%) 64.7 % 40.0-70.0 N IMMATURE GRANULOCYTE % (test 0.3 % 0.0-2.0 N code = IG%) LYMPHOCYTE % (test code = LY%) 25.0 % 20-40 MONOCYTE % (test code = MO%) 7.0 % 1-10 N EOSINOPHIL % (test code = EO%) 2.5 % 0.0-5.0 N BASOPHIL % (test code = BA%) 0.5 % 0.0-1.0 N NUCLEATED RBC % (test code = 0.0 % 0.0-0.9 N NRBC%) NEUTROPHIL # (test code = NT#) 4.9 x10 3/uL 1.6-7.2 N LYMPHOCYTE # (test code = LY#) 1.89 x10 3/uL 1.1-2.7 N MONOCYTE # (test code = MO#) 0.5 x10 3/uL 0.3-0.8 N EOSINOPHIL # (test code = EO#) 0.2 x10 3/uL 0.0-0.5 N BASOPHIL # (test code = BA#) 0.0 x10 3/uL 0.0-0.1 N DIFFERENTIAL [id number] 10:41:00 Test Item Value Reference Range Interpretation Comments PLATELET MORPHOLOGY (test code = Normal NORMAL PLTMORPH) BASIC METABOLIC [id number] 07:30:00 Test Item Value Reference Range Interpretation Comments SODIUM (test code 134 mmol/L 135-145 L = NA) POTASSIUM (test 4.4 mmol/L 3.6-5.0 N code = K) CHLORIDE (test 99 mmol/L 101-111 L code = CL) CARBON DIOXIDE 27 mmol/L 21-31 N (test code = CO2) GLUCOSE (test code 103 mg/dl 70-100 H = GLU) BLOOD UREA 17 mg/dl 6-20 N NITROGEN (test code = BUN) GLOMERULAR >=60 max >60 The estimated FILTRATION RATE estimate glomerular (test code = GFR) filtration rate is computed usingpatient ra ce, age (>18), sex, and serum creatinin e. If anyof the neede d data elements a re missing the Laboratory jarvis ot compute an estimation of t he glomerular filtration rate . CREATININE (test 0.62 mg/dL 0.44-1.03 N code = CREAT) CALCIUM (test code 8.7 mg/dL 8.5-10.5 N = CA) [id number] 05:19:00 Test Item Value Reference Range Interpretation Comments GLUBED (test code = GLUBED) 109 MG/DL 70-105 H [id number] 17:24:00 Test Item Value Reference Range Interpretation Comments GLUBED (test code = GLUBED) 118 MG/DL 70-105 H BASIC METABOLIC [id number] 09:47:00 Test Item Value Reference Range Interpretation Comments SODIUM (test code 134 mmol/L 135-145 L = NA) POTASSIUM (test 4.2 mmol/L 3.6-5.0 N code = K) CHLORIDE (test 100 mmol/L 101-111 L code = CL) CARBON DIOXIDE 24 mmol/L 21-31 N (test code = CO2) GLUCOSE (test code 117 mg/dl 70-100 H = GLU) BLOOD UREA 12 mg/dl 6-20 N NITROGEN (test code = BUN) GLOMERULAR >=60 max >60 The estimated FILTRATION RATE estimate glomerular (test code = GFR) filtration rate is computed usingpatient ra ce, age (>18), sex, and serum creatinin e. If anyof the neede d data elements a re missing the Laboratory jarvis ot compute an estimation of t he glomerular filtration rate . CREATININE (test 0.65 mg/dL 0.44-1.03 N code = CREAT) CALCIUM (test code 9.1 mg/dL 8.5-10.5 N = CA) CBC W/AUTO [id number] 09:00:00 Test Item Value Reference Range Interpretation Comments WHITE BLOOD CELL (test code = 11.0 x10 3/uL 3.2-11.5 N WBC) RED BLOOD CELL (test code = 4.27 x10(6)/m 3.70-5.10 N RBC) HEMOGLOBIN (test code = HGB) 12.2 g/dL 12.0-15.0 N HEMATOCRIT (test code = HCT) 37.6 % 35.7-44.8 N MEAN CELL VOLUME (test code = 88 fL 80-100 N MCV) MEAN CELL HGB (test code = MCH) 28.6 pg 26.2-33.8 N MEAN CELL HGB CONCENTRATION 32.4 g/dL 30.0-34.0 N (test code = MCHC) RED CELL DISTRIBUTION WIDTH 13.5 % 11.3-14.5 N (test code = RDW) PLATELET COUNT (test code = 293 x10 3/uL 130-408 N PLT) MEAN PLATELET VOLUME (test code 10.5 fL 8.6-12.6 N = MPV) NEUTROPHIL % (test code = NT%) 81.5 % 40.0-70.0 H IMMATURE GRANULOCYTE % (test 0.3 % 0.0-2.0 N code = IG%) LYMPHOCYTE % (test code = LY%) 11.5 % 20-40 L MONOCYTE % (test code = MO%) 5.3 % 1-10 N EOSINOPHIL % (test code = EO%) 0.9 % 0.0-5.0 N BASOPHIL % (test code = BA%) 0.5 % 0.0-1.0 N NUCLEATED RBC % (test code = 0.0 % 0.0-0.9 N NRBC%) NEUTROPHIL # (test code = NT#) 9.0 x10 3/uL 1.6-7.2 H LYMPHOCYTE # (test code = LY#) 1.27 x10 3/uL 1.1-2.7 N MONOCYTE # (test code = MO#) 0.6 x10 3/uL 0.3-0.8 N EOSINOPHIL # (test code = EO#) 0.1 x10 3/uL 0.0-0.5 N BASOPHIL # (test code = BA#) 0.1 x10 3/uL 0.0-0.1 N [id number] 06:10:00 Test Item Value Reference Range Interpretation Comments GLUBED (test code = GLUBED) 118 MG/DL 70-105 H [id number] 01:06:00 Test Item Value Reference Range Interpretation Comments GLUBED (test code = GLUBED) 110 MG/DL 70-105 H [id number] 15:52:00 Test Item Value Reference Range Interpretation Comments GLUBED (test code = GLUBED) 121 MG/DL 70-105 H [id number] 11:55:00 Test Item Value Reference Range Interpretation Comments GLUBED (test code = GLUBED) 131 MG/DL 70-105 H [id number] 06:06:00 Test Item Value Reference Range Interpretation Comments GLUBED (test code = GLUBED) 119 MG/DL 70-105 H CBC W/AUTO [id number] 05:35:00 Test Item Value Reference Range Interpretation Comments WHITE BLOOD CELL (test code = 7.7 x10 3/uL 3.2-11.5 N WBC) RED BLOOD CELL (test code = 3.86 x10(6)/m 3.70-5.10 N RBC) HEMOGLOBIN (test code = HGB) 11.2 g/dL 12.0-15.0 L HEMATOCRIT (test code = HCT) 33.9 % 35.7-44.8 L MEAN CELL VOLUME (test code = 88 fL 80-100 N MCV) MEAN CELL HGB (test code = MCH) 29.0 pg 26.2-33.8 N MEAN CELL HGB CONCENTRATION 33.0 g/dL 30.0-34.0 N (test code = MCHC) RED CELL DISTRIBUTION WIDTH 13.3 % 11.3-14.5 N (test code = RDW) PLATELET COUNT (test code = 303 x10 3/uL 130-408 N PLT) MEAN PLATELET VOLUME (test code 10.6 fL 8.6-12.6 N = MPV) NEUTROPHIL % (test code = NT%) 69.6 % 40.0-70.0 N IMMATURE GRANULOCYTE % (test 0.3 % 0.0-2.0 N code = IG%) LYMPHOCYTE % (test code = LY%) 19.3 % 20-40 L MONOCYTE % (test code = MO%) 6.9 % 1-10 N EOSINOPHIL % (test code = EO%) 3.4 % 0.0-5.0 N BASOPHIL % (test code = BA%) 0.5 % 0.0-1.0 N NUCLEATED RBC % (test code = 0.0 % 0.0-0.9 N NRBC%) NEUTROPHIL # (test code = NT#) 5.3 x10 3/uL 1.6-7.2 N LYMPHOCYTE # (test code = LY#) 1.48 x10 3/uL 1.1-2.7 N MONOCYTE # (test code = MO#) 0.5 x10 3/uL 0.3-0.8 N EOSINOPHIL # (test code = EO#) 0.3 x10 3/uL 0.0-0.5 N BASOPHIL # (test code = BA#) 0.0 x10 3/uL 0.0-0.1 N BASIC METABOLIC [id number] 05:20:00 Test Item Value Reference Range Interpretation Comments SODIUM (test code 131 mmol/L 135-145 L = NA) POTASSIUM (test 4.3 mmol/L 3.6-5.0 N code = K) CHLORIDE (test 97 mmol/L 101-111 L code = CL) CARBON DIOXIDE 26 mmol/L 21-31 N (test code = CO2) GLUCOSE (test code 110 mg/dl 70-100 H = GLU) BLOOD UREA 14 mg/dl 6-20 N NITROGEN (test code = BUN) GLOMERULAR >=60 max >60 The estimated FILTRATION RATE estimate glomerular (test code = GFR) filtration rate is computed usingpatient ra ce, age (>18), sex, and serum creatinin e. If anyof the neede d data elements a re missing the Laboratory jarvis ot compute an estimation of t he glomerular filtration rate . CREATININE (test 0.59 mg/dL 0.44-1.03 N code = CREAT) CALCIUM (test code 8.5 mg/dL 8.5-10.5 N = CA) [id number] 20:55:00 Test Item Value Reference Range Interpretation Comments GLUBED (test code = GLUBED) 100 MG/DL 70-105 N [id number] 16:42:00 Test Item Value Reference Range Interpretation Comments GLUBED (test code = GLUBED) 117 MG/DL 70-105 H [id number] 11:49:00 Test Item Value Reference Range Interpretation Comments GLUBED (test code = GLUBED) 140 MG/DL 70-105 H - XR CHEST 1 [id number] 08:08:00 [facility] 1975 Sex: FPatient Name: JERI VILLALOBOS Unit No: [id number] EXAMS: CPT: [id number] XR CHEST 1 V [id number] COMPARISON: 03/01/2022 FINDINGS: Atelectasis or pneumonia has developed at the right base. Left lower lobe pneumoniaappears unchanged. Heart size magnified by portable technique, without vascular congestion. Bony thorax appears unremarkable. No significant right costophrenic angle blunting. Mild left costophrenic angle blunting. CONCLUSION: Development of right lower lobe atelectasis or pneumonia. Persistent left lower lobe pneumonia. at 0808 Reported and signed by: Ward Hawkins MD CC: Ruiz Vaughn MD; Manuel Rose DO Technologist: Oly Deleon Time: DAP (Gy m2): Air Kerma (mGy): Trscr Dt/Tm: 03/04/2022 (0808) by:[email or web address] Orig Print D/T: S: 03/04/2022 (810) BATCH NO: N/A Name: JERI VILLALOBOS [facility] Phys: Ruiz Wolfe MD [address] [facility] : 1975 Age: 46 Sex: F [place] [address] Loc: N.0385 1 Exam Date: 03/04/2022 Status: ADM IN PH: FAX: PAGE 1 Signed [id number] 05:53:00 Test Item Value Reference Range Interpretation Comments GLUBED (test code = GLUBED) 89 MG/DL 70-105 N [id number] 20:59:00 Test Item Value Reference Range Interpretation Comments GLUBED (test code = GLUBED) 131 MG/DL 70-105 H [id number] 15:42:00 Test Item Value Reference Range Interpretation Comments GLUBED (test code = GLUBED) 112 MG/DL 70-105 H [id number] 12:47:00 Test Item Value Reference Range Interpretation Comments GLUBED (test code = GLUBED) 128 MG/DL 70-105 H BASIC METABOLIC [id number] 08:10:00 Test Item Value Reference Range Interpretation Comments SODIUM (test code 133 mmol/L 135-145 L = NA) POTASSIUM (test 4.7 mmol/L 3.6-5.0 N code = K) CHLORIDE (test 102 mmol/L 101-111 N code = CL) CARBON DIOXIDE 24 mmol/L 21-31 N (test code = CO2) GLUCOSE (test code 110 mg/dl 70-100 H = GLU) BLOOD UREA 19 mg/dl 6-20 N NITROGEN (test code = BUN) GLOMERULAR >=60 max >60 The estimated FILTRATION RATE estimate glomerular (test code = GFR) filtration rate is computed usingpatient ra ce, age (>18), sex, and serum creatinin e. If anyof the neede d data elements a re missing the Laboratory jarvis ot compute an estimation of t he glomerular filtration rate . CREATININE (test 0.62 mg/dL 0.44-1.03 N code = CREAT) CALCIUM (test code 8.6 mg/dL 8.5-10.5 N = CA) CBC W/AUTO [id number] 08:09:00 Test Item Value Reference Range Interpretation Comments WHITE BLOOD CELL (test code = 8.9 x10 3/uL 3.2-11.5 N WBC) RED BLOOD CELL (test code = 4.06 x10(6)/m 3.70-5.10 N RBC) HEMOGLOBIN (test code = HGB) 11.8 g/dL 12.0-15.0 L HEMATOCRIT (test code = HCT) 36.8 % 35.7-44.8 N MEAN CELL VOLUME (test code = 91 fL 80-100 N MCV) MEAN CELL HGB (test code = MCH) 29.1 pg 26.2-33.8 N MEAN CELL HGB CONCENTRATION 32.1 g/dL 30.0-34.0 N (test code = MCHC) RED CELL DISTRIBUTION WIDTH 13.6 % 11.3-14.5 N (test code = RDW) PLATELET COUNT (test code = 324 x10 3/uL 130-408 N PLT) MEAN PLATELET VOLUME (test code 10.5 fL 8.6-12.6 N = MPV) NEUTROPHIL % (test code = NT%) 71.6 % 40.0-70.0 H LYMPHOCYTE % (test code = LY%) 17.4 % 20-40 L MONOCYTE % (test code = MO%) 8.0 % 1-10 N EOSINOPHIL % (test code = EO%) 2.4 % 0.0-5.0 N BASOPHIL % (test code = BA%) 0.4 % 0.0-1.0 N NUCLEATED RBC % (test code = 0.0 % 0.0-0.9 N NRBC%) NEUTROPHIL # (test code = NT#) 6.4 x10 3/uL 1.6-7.2 N LYMPHOCYTE # (test code = LY#) 1.55 x10 3/uL 1.1-2.7 N MONOCYTE # (test code = MO#) 0.7 x10 3/uL 0.3-0.8 N EOSINOPHIL # (test code = EO#) 0.2 x10 3/uL 0.0-0.5 N IMMATURE GRANULOCYTE % (test 0.2 % 0.0-2.0 N code = IG%) BASOPHIL # (test code = BA#) 0.0 x10 3/uL 0.0-0.1 N [id number] 06:19:00 Test Item Value Reference Range Interpretation Comments GLUBED (test code = GLUBED) 111 MG/DL 70-105 H [id number] 20:56:00 Test Item Value Reference Range Interpretation Comments GLUBED (test code = GLUBED) 138 MG/DL 70-105 H [id number] 15:58:00 Test Item Value Reference Range Interpretation Comments GLUBED (test code = GLUBED) 137 MG/DL 70-105 H [id number] 12:19:00 Test Item Value Reference Range Interpretation Comments GLUBED (test code = GLUBED) 149 MG/DL 70-105 H [id number] 05:55:00 Test Item Value Reference Range Interpretation Comments GLUBED (test code = GLUBED) 114 MG/DL 70-105 H [id number] 21:40:00 Test Item Value Reference Range Interpretation Comments GLUBED (test code = GLUBED) 101 MG/DL 70-105 N [id number] 16:13:00 Test Item Value Reference Range Interpretation Comments GLUBED (test code = GLUBED) 126 MG/DL 70-105 H [id number] 11:40:00 Test Item Value Reference Range Interpretation Comments GLUBED (test code = GLUBED) 114 MG/DL 70-105 H - XR CHEST 1 [id number] 08:41:00 [facility] : 1975 Sex: FPatient Name: JERI VILLALOBOS Unit No: [id number] EXAMS: CPT: [id number] XR CHEST 1 V [id number] EXAM: XR CHEST1 VIEW DATE: 03/01/2022 5:00 AM INDICATION: Follow-up pneumonia COMPARISON: Chest radiograph on 02/22/[address] chest on 02/25/2022. TECHNIQUE: AP chest. FINDINGS: Lines, tubes and hardware: An tracheostomy appliance is seen above the ketty. Lungs and pleura: Left lower lobe infiltrates have increased w hen compared to the prior chest radiograph on 02/22/2022. Comparison of the extent of the pneumonia from the prior CT on 02/25/2022 is difficult due to differences in imaging technique. The right lung appears be clear. Heart and mediastinum: The heart size is normal. The mediastinal contours are normal.Bones and soft tissues: No acute abnormality. IMPRESSION: Left lower lobe infiltrates increased fromprior chest radiograph on 02/22/2022. Of note comparison of the extent of pneumonia from the prior CTon 02/25/2022 is difficult due to differences in imaging technique. at 0841 Reported and signed by: Yung Abel MD CC: Ruiz Vaughn MD; Manuel Rose DO Technologist: Logan Deleon Time: DAP (Gy m2): Air Kerma (mGy): Trscr Dt/Tm: 03/01/2022 (0841) by:[email or web address] Orig Print D/T: S: 03/01/2022 (0844) BATCH NO: N/A Name: JERI VILLALOBOS [facility] Phys: Ruiz Wolfe MD [address] [facility] : 1975 Age: 46 Sex: F [place], [place] [address] Loc: N.0385 1 Exam Date: 03/01/2022 Status: ADM IN PH: FAX: PAGE 1 Signed ReportBASIC METABOLIC [id number] 07:31:00 Test Item Value Reference Range Interpretation Comments SODIUM (test code 136 mmol/L 135-145 N = NA) POTASSIUM (test 4.4 mmol/L 3.6-5.0 N code = K) CHLORIDE (test 103 mmol/L 101-111 N code = CL) CARBON DIOXIDE 28 mmol/L 21-31 N (test code = CO2) GLUCOSE (test code 136 mg/dl 70-100 H = GLU) BLOOD UREA 15 mg/dl 6-20 N NITROGEN (test code = BUN) GLOMERULAR >=60 max >60 The estimated FILTRATION RATE estimate glomerular (test code = GFR) filtration rate is computed usingpatient ra ce, age (>18), sex, and serum creatinin e. If anyof the neede d data elements a re missing the Laboratory jarvis ot compute an estimation of t he glomerular filtration rate . CREATININE (test 0.63 mg/dL 0.44-1.03 N code = CREAT) CALCIUM (test code 8.7 mg/dL 8.5-10.5 N = CA) CBC W/AUTO [id number] 07:11:00 Test Item Value Reference Range Interpretation Comments WHITE BLOOD CELL (test code = 10.7 x10 3/uL 3.2-11.5 N WBC) RED BLOOD CELL (test code = 3.96 x10(6)/m 3.70-5.10 N RBC) HEMOGLOBIN (test code = HGB) 11.3 g/dL 12.0-15.0 L HEMATOCRIT (test code = HCT) 35.1 % 35.7-44.8 L MEAN CELL VOLUME (test code = 89 fL 80-100 N MCV) MEAN CELL HGB (test code = MCH) 28.5 pg 26.2-33.8 N MEAN CELL HGB CONCENTRATION 32.2 g/dL 30.0-34.0 N (test code = MCHC) RED CELL DISTRIBUTION WIDTH 13.1 % 11.3-14.5 N (test code = RDW) PLATELET COUNT (test code = 374 x10 3/uL 130-408 N PLT) MEAN PLATELET VOLUME (test code 10.1 fL 8.6-12.6 N = MPV) NEUTROPHIL % (test code = NT%) 77.5 % 40.0-70.0 H LYMPHOCYTE % (test code = LY%) 14.2 % 20-40 L MONOCYTE % (test code = MO%) 4.7 % 1-10 N EOSINOPHIL % (test code = EO%) 2.8 % 0.0-5.0 N BASOPHIL % (test code = BA%) 0.4 % 0.0-1.0 N NUCLEATED RBC % (test code = 0.0 % 0.0-0.9 N NRBC%) NEUTROPHIL # (test code = NT#) 8.3 x10 3/uL 1.6-7.2 H LYMPHOCYTE # (test code = LY#) 1.53 x10 3/uL 1.1-2.7 N MONOCYTE # (test code = MO#) 0.5 x10 3/uL 0.3-0.8 N EOSINOPHIL # (test code = EO#) 0.3 x10 3/uL 0.0-0.5 N IMMATURE GRANULOCYTE % (test 0.4 % 0.0-2.0 N code = IG%) BASOPHIL # (test code = BA#) 0.0 x10 3/uL 0.0-0.1 N [id number] 06:14:00 Test Item Value Reference Range Interpretation Comments GLUBED (test code = GLUBED) 116 MG/DL 70-105 H [id number] 20:06:00 Test Item Value Reference Range Interpretation Comments GLUBED (test code = GLUBED) 103 MG/DL 70-105 N [id number] 17:02:00 Test Item Value Reference Range Interpretation Comments GLUBED (test code = GLUBED) 95 MG/DL 70-105 N [id number] 11:29:00 Test Item Value Reference Range Interpretation Comments GLUBED (test code = GLUBED) 137 MG/DL 70-105 H BASIC METABOLIC [id number] 07:06:00 Test Item Value Reference Range Interpretation Comments SODIUM (test code 138 mmol/L 135-145 N = NA) POTASSIUM (test 4.1 mmol/L 3.6-5.0 N code = K) CHLORIDE (test 104 mmol/L 101-111 N code = CL) CARBON DIOXIDE 29 mmol/L 21-31 N (test code = CO2) GLUCOSE (test code 129 mg/dl 70-100 H = GLU) BLOOD UREA 15 mg/dl 6-20 N NITROGEN (test code = BUN) GLOMERULAR >=60 max >60 The estimated FILTRATION RATE estimate glomerular (test code = GFR) filtration rate is computed usingpatient ra ce, age (>18), sex, and serum creatinin e. If anyof the neede d data elements a re missing the Laboratory jarvis ot compute an estimation of t he glomerular filtration rate . CREATININE (test 0.60 mg/dL 0.44-1.03 N code = CREAT) CALCIUM (test code 8.5 mg/dL 8.5-10.5 N = CA) CBC W/AUTO [id number] 06:47:00 Test Item Value Reference Range Interpretation Comments WHITE BLOOD CELL (test code = 9.4 x10 3/uL 3.2-11.5 N WBC) RED BLOOD CELL (test code = 3.63 x10(6)/m 3.70-5.10 L RBC) HEMOGLOBIN (test code = HGB) 10.6 g/dL 12.0-15.0 L HEMATOCRIT (test code = HCT) 32.3 % 35.7-44.8 L MEAN CELL VOLUME (test code = 89 fL 80-100 N MCV) MEAN CELL HGB (test code = MCH) 29.2 pg 26.2-33.8 N MEAN CELL HGB CONCENTRATION 32.8 g/dL 30.0-34.0 N (test code = MCHC) RED CELL DISTRIBUTION WIDTH 13.0 % 11.3-14.5 N (test code = RDW) PLATELET COUNT (test code = 360 x10 3/uL 130-408 N PLT) MEAN PLATELET VOLUME (test code 9.9 fL 8.6-12.6 N = MPV) NEUTROPHIL % (test code = NT%) 73.3 % 40.0-70.0 H LYMPHOCYTE % (test code = LY%) 17.1 % 20-40 L MONOCYTE % (test code = MO%) 5.2 % 1-10 N EOSINOPHIL % (test code = EO%) 3.7 % 0.0-5.0 N BASOPHIL % (test code = BA%) 0.4 % 0.0-1.0 N NUCLEATED RBC % (test code = 0.0 % 0.0-0.9 N NRBC%) NEUTROPHIL # (test code = NT#) 6.9 x10 3/uL 1.6-7.2 N LYMPHOCYTE # (test code = LY#) 1.61 x10 3/uL 1.1-2.7 N MONOCYTE # (test code = MO#) 0.5 x10 3/uL 0.3-0.8 N EOSINOPHIL # (test code = EO#) 0.4 x10 3/uL 0.0-0.5 N IMMATURE GRANULOCYTE % (test 0.3 % 0.0-2.0 N code = IG%) BASOPHIL # (test code = BA#) 0.0 x10 3/uL 0.0-0.1 N [id number] 06:12:00 Test Item Value Reference Range Interpretation Comments GLUBED (test code = GLUBED) 135 MG/DL 70-105 H [id number] 00:40:00 Test Item Value Reference Range Interpretation Comments GLUBED (test code = GLUBED) 105 MG/DL 70-105 N [id number] 21:06:00 Test Item Value Reference Range Interpretation Comments GLUBED (test code = GLUBED) 103 MG/DL 70-105 N CBC W/AUTO [id number] 11:26:00 Test Item Value Reference Range Interpretation Comments WHITE BLOOD CELL (test code = 12.3 x10 3/uL 3.2-11.5 H WBC) RED BLOOD CELL (test code = 3.56 x10(6)/m 3.70-5.10 L RBC) HEMOGLOBIN (test code = HGB) 10.4 g/dL 12.0-15.0 L HEMATOCRIT (test code = HCT) 31.6 % 35.7-44.8 L MEAN CELL VOLUME (test code = 89 fL 80-100 N MCV) MEAN CELL HGB (test code = MCH) 29.2 pg 26.2-33.8 N MEAN CELL HGB CONCENTRATION 32.9 g/dL 30.0-34.0 N (test code = MCHC) RED CELL DISTRIBUTION WIDTH 12.6 % 11.3-14.5 N (test code = RDW) PLATELET COUNT (test code = 318 x10 3/uL 130-408 N PLT) MEAN PLATELET VOLUME (test code 10.7 fL 8.6-12.6 N = MPV) NEUTROPHIL % (test code = NT%) % 40.0-70.0 LYMPHOCYTE % (test code = LY%) % 20-40 MONOCYTE % (test code = MO%) % 1-10 EOSINOPHIL % (test code = EO%) % 0.0-5.0 BASOPHIL % (test code = BA%) % 0.0-1.0 NUCLEATED RBC % (test code = % 0.0-0.9 NRBC%) NEUTROPHIL # (test code = NT#) x10 3/uL 1.6-7.2 LYMPHOCYTE # (test code = LY#) x10 3/uL 1.1-2.7 MONOCYTE # (test code = MO#) x10 3/uL 0.3-0.8 EOSINOPHIL # (test code = EO#) x10 3/uL 0.0-0.5 RECOLLECT CLOTTEDWBC [id number] 11:26:00 Test Item Value Reference Range Interpretation Comments TOTAL CELLS COUNTED (test code 100 #CELLS = TCC) RBC MORPHOLOGY COMMENT (test ABN NORMAL A code = MOC) PLATELET MORPHOLOGY (test code NORM NORMAL = PLTMORPH) SEGMENTED NEUTROPHILS (test 89 % 43-65 H code = SEG) LYMPHOCYTE (test code = LYMPH) 8 % 20.5-45.5 L MONOCYTE (test code = MON) 2 % 5.5-11.7 L EOSINOPHIL (test code = EOS) 1 % 0.9-2.9 N BAND ABSOLUTE (test code = 0.00 10 3/uL 0.00-0.70 N BAND#) NEUTROPHIL ABSOLUTE (test code 10.95 10 3/uL 1.6-7.2 H = SEG#) LYMPH ABSOLUTE (test code = 1.0 10 3/uL 1.1-4.8 L LYMPH#) ATYPICAL LYMPH ABSOLUTE (test 0.00 10 3/uL 0.00-0.00 N code = ALYMPH#) MONOCYTE ABSOLUTE (test code = 0.24 10 3/uL 0.3-0.8 L MON#) BASOPHIL ABSOLUTE (test code = 0.00 10 3/uL 0.00-0.1 N BASO#) EOSINOPHIL ABSOLUTE (test code 0.12 10 3/uL 0.00-0.50 N = EOS#) METAMYELOCYTE ABSOLUTE (test 0.00 10 3/uL 0.00-0.00 N code = META#) MYELOCYTE ABSOLUTE (test code = 0.00 10 3/uL 0.00-0.00 N MYELO#) PROMYELOCYTE ABSOLUTE (test 0.00 10 3/uL 0.00-0.00 N code = PROM#) BLASTS ABSOLUTE (test code = 0.00 10 3/uL 0.00-0.00 N BLAST#) OTHER CELLS ABSOLUTE (test code 0.00 10 3/uL 0.00-0.00 N = OCT#) POLYCHROMASIA (test code = 1+ NONE SEEN A POLC) RECOLLECT CLOTTEDCBC W/AUTO [id number] 08:54:00 Test Item Value Reference Range Interpretation Comments WHITE BLOOD CELL Test not 3.2-11.5 N Previously (test code = WBC) performed x10 reported result: 3/uL 10.2 x10\S\3/uLEdite d by: [id number] on 02/27/22:851~~ Corrected Repor t ~~Reason (required):CLOT TE D RED BLOOD CELL (test Test not 3.70-5.10 L Previou sly code = RBC) performed reported result : x10(6)/m 3.59 x10(6)/mEdited by: [id number] on 02/27/22:851~~ Corrected Repor t ~~Reason (required):CLOT TE D HEMOGLOBIN (test code Test not 12.0-15.0 L Previo usly = HGB) performed g/dL reported resu lt: 10.3 g/dLEdited by: [id number] on 02/27/22~~ Corrected Repor t ~~Reason (required):CLOT TE D HEMATOCRIT (test code Test not 35.7-44.8 L Previo usly = HCT) performed % reported result : 32.5 %Edited by : [id number] on 02/27/22:852~~ Corrected Repor t ~~Reason (required):CLOT TE D MEAN CELL VOLUME Test not 80-100 N Previously (test code = MCV) performed fL reported r esult: 91 fLEdited by: [id number] on 02/27/22:852~~ Corrected Repor t ~~Reason (required):CLOT TE D MEAN CELL HGB (test Test not 26.2-33.8 N Previous ly code = MCH) performed pg reported result : 28.7 pgEdited b y: [id number] on 02/27/22:0853~~ Corrected Repor t ~~Reason (required):CLOT TE D MEAN CELL HGB Test not 30.0-34.0 N Previously CONCENTRATION (test performed g/dL report ed result: code = MCHC) 31.7 g/dLEdited by: [id number] on 02/27/22:0853~~ Corrected Repor t ~~Reason (required):CLOT TE D RED CELL DISTRIBUTION Test not 11.3-14.5 WIDTH (test code = performed % RDW) PLATELET COUNT (test Test not 130-408 code = PLT) performed x10 3/uL MEAN PLATELET VOLUME Test not 8.6-12.6 N Previou sly (test code = MPV) performed fL reported r esult: 11.6 fLEdited b y: [id number] on 02/27/22:0854~~ Corrected Repor t ~~Reason (required):CLOT TE D NEUTROPHIL % (test Test not 40.0-70.0 code = NT%) performed % LYMPHOCYTE % (test Test not 20-40 code = LY%) performed % MONOCYTE % (test code Test not 1-10 = MO%) performed % EOSINOPHIL % (test Test not 0.0-5.0 code = EO%) performed % BASOPHIL % (test code Test not 0.0-1.0 = BA%) performed % NUCLEATED RBC % (test Test not 0.0-0.9 code = NRBC%) performed % NEUTROPHIL # (test Test not 1.6-7.2 code = NT#) performed x10 3/uL LYMPHOCYTE # (test Test not 1.1-2.7 code = LY#) performed x10 3/uL MONOCYTE # (test code Test not 0.3-0.8 = MO#) performed x10 3/uL EOSINOPHIL # (test Test not 0.0-0.5 code = EO#) performed x10 3/uL CORRECTED WBC (test Test not 3.2-11.5 code = CWBC) performed x10 3/uL IMMATURE GRANULOCYTE Test not 0.0-2.0 % (test code = IG%) performed % IMMATURE GRANULOCYTE Test not 0-0.03 # (test code = IG#) performed x10 3/uL BASOPHIL # (test code Test not 0.0-0.1 = BA#) performed x10 3/uL PATHOLOGIST REVIEW Test not TRIGGER (test code = performed PATHTRIGGER) PLATELET ESTIMATE Test not ADEQUATE (test code = PLTEST) performed BASIC METABOLIC [id number] 08:53:00 Test Item Value Reference Range Interpretation Comments SODIUM (test code 139 mmol/L 135-145 N = NA) POTASSIUM (test 4.6 mmol/L 3.6-5.0 N code = K) CHLORIDE (test 107 mmol/L 101-111 N code = CL) CARBON DIOXIDE 25 mmol/L 21-31 N (test code = CO2) GLUCOSE (test code 124 mg/dl 70-100 H = GLU) BLOOD UREA 17 mg/dl 6-20 N NITROGEN (test code = BUN) GLOMERULAR >=60 max >60 The estimated FILTRATION RATE estimate glomerular (test code = GFR) filtration rate is computed usingpatient ra ce, age (>18), sex, and serum creatinin e. If anyof the neede d data elements a re missing the Laboratory jarvis ot compute an estimation of t he glomerular filtration rate . CREATININE (test 0.63 mg/dL 0.44-1.03 N code = CREAT) CALCIUM (test code 8.6 mg/dL 8.5-10.5 N = CA) [id number] 06:09:00 Test Item Value Reference Range Interpretation Comments GLUBED (test code = GLUBED) 127 MG/DL 70-105 H [id number] 20:53:00 Test Item Value Reference Range Interpretation Comments GLUBED (test code = GLUBED) 117 MG/DL 70-105 H [id number] 17:43:00 Test Item Value Reference Range Interpretation Comments GLUBED (test code = GLUBED) 92 MG/DL 70-105 N [id number] 12:05:00 Test Item Value Reference Range Interpretation Comments GLUBED (test code = GLUBED) 132 MG/DL 70-105 H BASIC METABOLIC [id number] 10:55:00 Test Item Value Reference Range Interpretation Comments SODIUM (test code 142 mmol/L 135-145 N = NA) POTASSIUM (test 4.8 mmol/L 3.6-5.0 N code = K) CHLORIDE (test 112 mmol/L 101-111 H code = CL) CARBON DIOXIDE 24 mmol/L 21-31 N (test code = CO2) GLUCOSE (test code 110 mg/dl 70-100 H = GLU) BLOOD UREA 18 mg/dl 6-20 N NITROGEN (test code = BUN) GLOMERULAR >=60 max >60 The estimated FILTRATION RATE estimate glomerular (test code = GFR) filtration rate is computed usingpatient ra ce, age (>18), sex, and serum creatinin e. If anyof the neede d data elements a re missing the Laboratory jarvis ot compute an estimation of t he glomerular filtration rate . CREATININE (test 0.62 mg/dL 0.44-1.03 N code = CREAT) CALCIUM (test code 8.3 mg/dL 8.5-10.5 L = CA) CBC W/AUTO [id number] 10:42:00 Test Item Value Reference Range Interpretation Comments WHITE BLOOD CELL (test code = 10.9 x10 3/uL 3.2-11.5 N WBC) RED BLOOD CELL (test code = 3.45 x10(6)/m 3.70-5.10 L RBC) HEMOGLOBIN (test code = HGB) 9.7 g/dL 12.0-15.0 L HEMATOCRIT (test code = HCT) 32.3 % 35.7-44.8 L MEAN CELL VOLUME (test code = 94 fL 80-100 N MCV) MEAN CELL HGB (test code = MCH) 28.1 pg 26.2-33.8 N MEAN CELL HGB CONCENTRATION 30.0 g/dL 30.0-34.0 N (test code = MCHC) RED CELL DISTRIBUTION WIDTH 12.5 % 11.3-14.5 N (test code = RDW) PLATELET COUNT (test code = 313 x10 3/uL 130-408 N PLT) MEAN PLATELET VOLUME (test code 10.9 fL 8.6-12.6 N = MPV) NEUTROPHIL % (test code = NT%) 77.4 % 40.0-70.0 H LYMPHOCYTE % (test code = LY%) 14.6 % 20-40 L MONOCYTE % (test code = MO%) 4.3 % 1-10 N EOSINOPHIL % (test code = EO%) 2.8 % 0.0-5.0 N BASOPHIL % (test code = BA%) 0.6 % 0.0-1.0 N NUCLEATED RBC % (test code = 0.0 % 0.0-0.9 N NRBC%) NEUTROPHIL # (test code = NT#) 8.4 x10 3/uL 1.6-7.2 H LYMPHOCYTE # (test code = LY#) 1.59 x10 3/uL 1.1-2.7 N MONOCYTE # (test code = MO#) 0.5 x10 3/uL 0.3-0.8 N EOSINOPHIL # (test code = EO#) 0.3 x10 3/uL 0.0-0.5 N IMMATURE GRANULOCYTE % (test 0.3 % 0.0-2.0 N code = IG%) BASOPHIL # (test code = BA#) 0.1 x10 3/uL 0.0-0.1 N [id number] 06:15:00 Test Item Value Reference Range Interpretation Comments GLUBED (test code = GLUBED) 115 MG/DL 70-105 H [id number] 03:49:00 Test Item Value Reference Range Interpretation Comments CREATININE (test code = CREAT) 0.61 mg/dL 0.44-1.03 N - DUP VEIN [id number] 23:43:00 [facility] 1975 Sex: FPatient Name: JERI VILLALOBOS Unit No: [id number] EXAMS: CPT: [id number] DUP VEIN [place] [address] BILATERAL LOWER EXTREMITY VENOUS DOPPLER AND COLOR FLOW DUPLEX IMAGING AND WAVE FORM ANALYSIS / PLETHYSMOGRAPHY CONCLUSIONS: 1. Normal venous Doppler study and duplex imaging of the deep veins of the right and left lower extremities. The Wave Form Analysis is normal bilaterally. 2. There is no evidence of deep venous thrombosis or deep venous obstruction in the right and left lower extremities. HISTORY AND INDICATIONS FOR STUDY: The patient is a 46-year-old female with history of significant bilateral lower extremity edema. There is no documentation of prior episodes of deep vein thrombosis. This study is performed to evaluate the patency of the deep veins of the right and left lower extremities. electrician technician: Wilman Phoenix RVT TECHNICAL NOTES: 1. Venous Doppler waveform analysis and real-time color duplex imaging of the deep veins of the right and left lower extremities were performed. Compression ma neuvers were also used to evaluate vein patency. 2. Bilateral common femoral veins, bilateral superficial femoral veins, bilateral deep femoral veins, bilateral popliteal veins, bilateral peroneal veins, bilateral posterior tibial veins, and bilateral superficial veins were evaluated on this study. COMPARISON STUDY: No prior studies are available. FINDINGS: 1. Bilateral common femoral veins, bilateral superficial femoral veins, bilateral deep femoral veins, bilateral popliteal veins, bilateral peroneal veins, bilateral posterior tibial veins, and bilateral superficial veins were evaluated on this study. 2. All visualized deep veins in both lower extremities demonstrated normal, spontaneous antegrade flow without evidence of intraluminal defects or abnormalities. The vessel f[place] were thin, smooth, and compressible. 3. There is no evidence of any acute or chronic deep venous thrombosis or deep venous obstruction in the visualized veins of the right or left lower extremity. at 2343 Reported and signed by: LISANDRA PADRON MD Name: JERI VILLALOBOS [facility] Phys: SIDFA. - [place],Manuel Grant [address] [facility] : 1975 Age: 46Sex: F [place], [place] [address] Loc: N.[id number] 1 Exam Date: 02/24/2022 Status: ADM IN PH: FAX: PAGE 1 Signed Report (CONTINUED) Patient Name: JERI VILLALOBOS Unit No: [id number] EXAMS:CPT: [id number] DUP VEIN [place] [address] (Continued) CC: Manuel Rose DO Technologist: Wilman Stubbs Probe: Trscr Dt/Tm: 02/25/2022 (2343) by:BasilHR Orig Print D/T: S: 02/25/2022 (2346) BATCH NO: N/A Name: JERI VILLALOBOS [facility] Phys: [email or web address].[id number] - [place],Manuel A D [address] : 1975 Age: 46 Sex: F [place], [place] [address] Loc: N.0385 1 Exam Date: 02/24/2022 Status: ADM IN PH: FAX: PAGE 2 Signed [id number] 20:34:00 Test Item Value Reference Range Interpretation Comments GLUBED (test code = GLUBED) 128 MG/DL 70-105 H [id number] 16:31:00 Test Item Value Reference Range Interpretation Comments GLUBED (test code = GLUBED) 116 MG/DL 70-105 H [id number] 11:44:00 Test Item Value Reference Range Interpretation Comments GLUBED (test code = GLUBED) 113 MG/DL 70-105 H - CT CHEST W/O [id number] 11:33:00 [facility] 1975 Sex: FPatient Name: JERI VILLALOBOS Unit No: [id number] EXAMS: CPT: [id number] CT CHEST W/O CONTRAST 30849 EXAM:CT CHEST WITHOUT CONTRAST DATE: 02/25/2022 5:26 PM INDICATION: Pneumonia, fevers ADDITIONAL INFORMATION: None. COMPARISON: Multiple chest radiographs, most recently on 02/22/2022 CTA chest on 02/09/2022 TECHNIQUE: CT imaging was performed with iterative reconstruction techniques and/or automated exposurecontrol to reduce radiation dose. Volumetric CT of the chest is acquired without contrast. Axial, coronal and sagittal images are provided. IV contrast: None. DLP (mGy-cm): 487.09 FINDINGS: Pecan Picker: Noncontributory. Lines, tubes and hardware: A tracheostomy appliance is seen, with the tip above the ketty. A gastrostomy tube is also seen within the gastric body. Lower neck: The visible portions or the lower neck and thyroid are unremarkable. Axilla: Multiple bilateral axillary lymph nodes are seen, with fatty alexis, many of which are partially calcification, consistent with prior granulomatous disease. Airway: Patent. Lungs and pleura: There is an opacity seen encompassing the majority of the left lower lobe, with multiple air bronchograms seen within the opacity, consistent with pneumonia. Dependent opacities are also seen in the right lower lobe, which may represent atelectasis and/or consolidation. No pleural effusion or pneumothorax is identified. Mediastinum, alexis and intrathoracic lymph nodes: Normal. Heart, pericardium and great vessels: Unremarkable. Upper abdomen: There is a moderate diffuse colonic stool burden. The upper abdomen is otherwise unremarkable. Bones: No acute abnormality. Small anterior endplate osteophytes are seen in the upper thoracic spine. The disc spaces are otherwise preserved. Name: FABIJERI [facility] Phys: SIDFA. - Manuel Rose [address] [facility] : 1975 Age: 46 Sex: F [place], [place] [address] Loc: N.0385 1 Exam Date: 02/25/2022 Status: ADM IN PH: FAX: PAGE 1 Signed Report (CONTINUED) Patient Name: MIRELA VILLALOBOSNahum Horton Unit No: [id number] EXAMS: CPT: [id number] CT CHEST W/O CONTRAST 52864 (Continued) Soft tissues: Bila teral breast implants are seen. IMPRESSION: Extensive opacities in the majority of the left lower lobe with multiple air bronchograms, consistent with pneumonia. Dependent opacities in the right lower lobe represent atelectasis and/or consolidation. at 1133 Reported and signed by: Yung Abel MD CC: Manuel Rose DO Technologist: Marcela CTDI: 12.60 DLP: 487.09 Trscr Dt/Tm: 02/25/2022 (1133) by:[email or web address] Orig Print D/T: S: 02/25/2022 (1136) BATCH NO: N/A Name: JERI VILLALOBOS [facility] Phys: [id number] - [place],Manuel A D [address] : 1975 Age: 46 Sex: F [place], [place] [address] Loc: N.0385 1 Exam Date: 02/25/2022 Status: ADM IN PH: FAX: PAGE 2 Signed Report - DUP VEIN [id number] 11:14:00 [facility] : 1975 Sex: FPatient Name: JERI VILLALOBOS Unit No: [id number] EXAMS: CPT: [id number] DUP VEIN [place] [address] EXAM: US BILATERAL UPPER EXTREMITY VENOUS DOPPLER DATE: 02/25/2022 5:23 PM INDICATION: Upper extremity swelling ADDITIONAL INFORMATION: None. COMPARISON: Right upper extremity venous ultrasound on 02/14/2022 TECHNIQUE: Multiplanar grayscale, color Doppler, and spectral Doppler ultrasound of the bilateral upper extremity veins. FINDINGS: Right Upper Extremity Veins: Internal Jugular: Evaluation of the right proximaljugular vein is limited due to obscuration by the tracheostomy appliance. The remaining portions of the jugular vein are unremarkable. Subclavian: Patent. Axillary: Patent. Brachial: Patent. Basilic: A line is present within the basilic vein. Small amount of nonocclusive thrombus is seen surrounding the line. Cephalic: Patent. Left Upper Extremity Veins: Internal Jugular: Evaluation of the proximal jugular vein is limited due to obscuration by the tracheostomy appliance. The remaining portions of the internal jugular vein are patent. Subclavian: Patent. Axillary: Patent. Brachial: Patent. Basilic: Patent. Cephalic: Patent. Other: None. IMPRESSION: No deep venous thrombosis (DVT) in the bilateral upper extremities. Partially occlusive superficial vein thrombosis surrounding the right basilic venous line. at 1114 Reported and signed by: Yung Abel MD Name: FABIJERI [facility] Phys: SIDFA. - [place],Manuel A D [address] : 1975 Age: 46 Sex: F [place] [address] Loc: N.0385 1 Exam Date:02/25/2022 Status: ADM IN PH: FAX: PAGE 1 Signed Report (CONTINUED) Patient Name: JERI VILLALOBOS [place] Unit No: [id number] EXAMS: CPT: [id number] DUP VEIN [place] [address] (Continued) CC: Manuel Rose DO Technologist: Wilman Stubbs Probe: Trscr Dt/Tm: 02/25/2022 (1114) by:[email or web address] Orig Print D/T: S: 02/25/2022 (1117) BATCH NO: N/A Name: JERI VILLALOBOS [facility] Phys: SIDFA.diqi,Manuel A D [address] : 1975 Age: 46 Sex: F [place] [address] Loc: N.[phone] Exam Date: 02/25/2022 Status: ADM IN PH: FAX: PAGE 2 Signed Report BASIC METABOLIC [id number] 08:25:00 Test Item Value Reference Range Interpretation Comments SODIUM (test code 143 mmol/L 135-145 N = NA) POTASSIUM (test 4.0 mmol/L 3.6-5.0 N code = K) CHLORIDE (test 113 mmol/L 101-111 H code = CL) CARBON DIOXIDE 24 mmol/L 21-31 N (test code = CO2) GLUCOSE (test code 134 mg/dl 70-100 H = GLU) BLOOD UREA 22 mg/dl 6-20 H NITROGEN (test code = BUN) GLOMERULAR >=60 max >60 The estimated FILTRATION RATE estimate glomerular (test code = GFR) filtration rate is computed usingpatient ra ce, age (>18), sex, and serum creatinin e. If anyof the neede d data elements a re missing the Laboratory jarvis ot compute an estimation of t he glomerular filtration rate . CREATININE (test 0.63 mg/dL 0.44-1.03 N code = CREAT) CALCIUM (test code 8.3 mg/dL 8.5-10.5 L = CA) REDRAWCBC W/AUTO [id number] 07:31:00 Test Item Value Reference Range Interpretation Comments WHITE BLOOD CELL (test code = 12.7 x10 3/uL 3.2-11.5 H WBC) RED BLOOD CELL (test code = 3.33 x10(6)/m 3.70-5.10 L RBC) HEMOGLOBIN (test code = HGB) 9.3 g/dL 12.0-15.0 L HEMATOCRIT (test code = HCT) 30.5 % 35.7-44.8 L MEAN CELL VOLUME (test code = 92 fL 80-100 N MCV) MEAN CELL HGB (test code = MCH) 27.9 pg 26.2-33.8 N MEAN CELL HGB CONCENTRATION 30.5 g/dL 30.0-34.0 N (test code = MCHC) RED CELL DISTRIBUTION WIDTH 12.7 % 11.3-14.5 N (test code = RDW) PLATELET COUNT (test code = 396 x10 3/uL 130-408 N PLT) MEAN PLATELET VOLUME (test code 10.4 fL 8.6-12.6 N = MPV) WBC [id number] 07:31:00 Test Item Value Reference Range Interpretation Comments TOTAL CELLS COUNTED (test code = 100 #CELLS TCC) RBC MORPHOLOGY COMMENT (test Normal NORMAL code = MOC) PLATELET MORPHOLOGY (test code = Normal NORMAL PLTMORPH) SEGMENTED NEUTROPHILS (test code 69 % 43-65 H = SEG) BAND NEUTROPHIL (test code = 1 % 0-1 N BAND) LYMPHOCYTE (test code = LYMPH) 21 % 20.5-45.5 N MONOCYTE (test code = MON) 5 % 5.5-11.7 L EOSINOPHIL (test code = EOS) 4 % 0.9-2.9 H BAND ABSOLUTE (test code = 0.13 10 3/uL 0.00-0.70 N BAND#) NEUTROPHIL ABSOLUTE (test code = 8.76 10 3/uL 1.6-7.2 H SEG#) LYMPH ABSOLUTE (test code = 2.7 10 3/uL 1.1-4.8 N LYMPH#) ATYPICAL LYMPH ABSOLUTE (test 0.00 10 3/uL 0.00-0.00 N code = ALYMPH#) MONOCYTE ABSOLUTE (test code = 0.63 10 3/uL 0.3-0.8 N MON#) BASOPHIL ABSOLUTE (test code = 0.00 10 3/uL 0.00-0.1 N BASO#) EOSINOPHIL ABSOLUTE (test code = 0.50 10 3/uL 0.00-0.50 N EOS#) METAMYELOCYTE ABSOLUTE (test 0.00 10 3/uL 0.00-0.00 N code = META#) MYELOCYTE ABSOLUTE (test code = 0.00 10 3/uL 0.00-0.00 N MYELO#) PROMYELOCYTE ABSOLUTE (test code 0.00 10 3/uL 0.00-0.00 N = PROM#) BLASTS ABSOLUTE (test code = 0.00 10 3/uL 0.00-0.00 N BLAST#) OTHER CELLS ABSOLUTE (test code 0.00 10 3/uL 0.00-0.00 N = OCT#) [id number] 05:47:00 Test Item Value Reference Range Interpretation Comments GLUBED (test code = GLUBED) 135 MG/DL 70-105 H [id number] 20:40:00 Test Item Value Reference Range Interpretation Comments GLUBED (test code = GLUBED) 121 MG/DL 70-105 H [id number] 17:03:00 Test Item Value Reference Range Interpretation Comments GLUBED (test code = GLUBED) 113 MG/DL 70-105 H VANCOMYCIN [id number] 13:43:00 Test Item Value Reference Range Interpretation Comments VANCOMYCIN TROUGH 15.9 ug/ml 10.0-20.0 N Please ref er to (test code = VANCT) Medicati on Administration Record (MAR) forlast d ose date and time. [id number] 11:50:00 Test Item Value Reference Range Interpretation Comments GLUBED (test code = GLUBED) 139 MG/DL 70-105 H BASIC METABOLIC [id number] 07:47:00 Test Item Value Reference Range Interpretation Comments SODIUM (test code 149 mmol/L 135-145 H = NA) POTASSIUM (test 3.7 mmol/L 3.6-5.0 N code = K) CHLORIDE (test 114 mmol/L 101-111 H code = CL) CARBON DIOXIDE 30 mmol/L 21-31 N (test code = CO2) GLUCOSE (test code 138 mg/dl 70-100 H = GLU) BLOOD UREA 26 mg/dl 6-20 H NITROGEN (test code = BUN) GLOMERULAR >=60 max >60 The estimated FILTRATION RATE estimate glomerular (test code = GFR) filtration rate is computed usingpatient ra ce, age (>18), sex, and serum creatinin e. If anyof the neede d data elements a re missing the Laboratory jarvis ot compute an estimation of t he glomerular filtration rate . CREATININE (test 0.68 mg/dL 0.44-1.03 N code = CREAT) CALCIUM (test code 8.4 mg/dL 8.5-10.5 L = CA) CBC W/AUTO [id number] 07:37:00 Test Item Value Reference Range Interpretation Comments WHITE BLOOD CELL (test code = 10.8 x10 3/uL 3.2-11.5 N WBC) RED BLOOD CELL (test code = 3.68 x10(6)/m 3.70-5.10 L RBC) HEMOGLOBIN (test code = HGB) 10.4 g/dL 12.0-15.0 L HEMATOCRIT (test code = HCT) 34.2 % 35.7-44.8 L MEAN CELL VOLUME (test code = 93 fL 80-100 N MCV) MEAN CELL HGB (test code = MCH) 28.3 pg 26.2-33.8 N MEAN CELL HGB CONCENTRATION 30.4 g/dL 30.0-34.0 N (test code = MCHC) RED CELL DISTRIBUTION WIDTH 12.6 % 11.3-14.5 N (test code = RDW) PLATELET COUNT (test code = 404 x10 3/uL 130-408 N PLT) MEAN PLATELET VOLUME (test code 10.2 fL 8.6-12.6 N = MPV) NEUTROPHIL % (test code = NT%) 68.6 % 40.0-70.0 N LYMPHOCYTE % (test code = LY%) 22.8 % 20-40 N MONOCYTE % (test code = MO%) 5.5 % 1-10 N EOSINOPHIL % (test code = EO%) 2.2 % 0.0-5.0 N BASOPHIL % (test code = BA%) 0.6 % 0.0-1.0 N NUCLEATED RBC % (test code = 0.0 % 0.0-0.9 N NRBC%) NEUTROPHIL # (test code = NT#) 7.4 x10 3/uL 1.6-7.2 H LYMPHOCYTE # (test code = LY#) 2.46 x10 3/uL 1.1-2.7 N MONOCYTE # (test code = MO#) 0.6 x10 3/uL 0.3-0.8 N EOSINOPHIL # (test code = EO#) 0.2 x10 3/uL 0.0-0.5 N IMMATURE GRANULOCYTE % (test 0.3 % 0.0-2.0 N code = IG%) BASOPHIL # (test code = BA#) 0.1 x10 3/uL 0.0-0.1 N [id number] 06:21:00 Test Item Value Reference Range Interpretation Comments GLUBED (test code = GLUBED) 141 MG/DL 70-105 H [id number] 21:37:00 Test Item Value Reference Range Interpretation Comments GLUBED (test code = GLUBED) 135 MG/DL 70-105 H [id number] 17:38:00 Test Item Value Reference Range Interpretation Comments GLUBED (test code = GLUBED) 144 MG/DL 70-105 H [id number] 11:57:00 Test Item Value Reference Range Interpretation Comments GLUBED (test code = GLUBED) 141 MG/DL 70-105 H VANCOMYCIN [id number] 07:35:00 Test Item Value Reference Range Interpretation Comments VANCOMYCIN TROUGH 10.8 ug/ml 10.0-20.0 N Please ref er to (test code = VANCT) Medicati on Administration Record (MAR) forlast d ose date and time. [id number] 06:05:00 Test Item Value Reference Range Interpretation Comments GLUBED (test code = GLUBED) 139 MG/DL 70-105 H CBC W/AUTO [id number] 05:22:00 Test Item Value Reference Range Interpretation Comments WHITE BLOOD CELL (test code = 19.8 x10 3/uL 3.2-11.5 H WBC) RED BLOOD CELL (test code = 3.97 x10(6)/m 3.70-5.10 N RBC) HEMOGLOBIN (test code = HGB) 11.3 g/dL 12.0-15.0 L HEMATOCRIT (test code = HCT) 36.4 % 35.7-44.8 N MEAN CELL VOLUME (test code = 92 fL 80-100 N MCV) MEAN CELL HGB (test code = MCH) 28.5 pg 26.2-33.8 N MEAN CELL HGB CONCENTRATION 31.0 g/dL 30.0-34.0 N (test code = MCHC) RED CELL DISTRIBUTION WIDTH 12.4 % 11.3-14.5 N (test code = RDW) PLATELET COUNT (test code = 321 x10 3/uL 130-408 N PLT) MEAN PLATELET VOLUME (test code 10.5 fL 8.6-12.6 N = MPV) NEUTROPHIL % (test code = NT%) 77.6 % 40.0-70.0 H IMMATURE GRANULOCYTE % (test 0.5 % 0.0-2.0 N code = IG%) LYMPHOCYTE % (test code = LY%) 15.2 % 20-40 L MONOCYTE % (test code = MO%) 5.5 % 1-10 N EOSINOPHIL % (test code = EO%) 0.8 % 0.0-5.0 N BASOPHIL % (test code = BA%) 0.4 % 0.0-1.0 N NUCLEATED RBC % (test code = 0.0 % 0.0-0.9 N NRBC%) NEUTROPHIL # (test code = NT#) 15.4 x10 3/uL 1.6-7.2 H LYMPHOCYTE # (test code = LY#) 3.01 x10 3/uL 1.1-2.7 H MONOCYTE # (test code = MO#) 1.1 x10 3/uL 0.3-0.8 H EOSINOPHIL # (test code = EO#) 0.2 x10 3/uL 0.0-0.5 N BASOPHIL # (test code = BA#) 0.1 x10 3/uL 0.0-0.1 N BASIC METABOLIC [id number] 05:11:00 Test Item Value Reference Range Interpretation Comments SODIUM (test code 145 mmol/L 135-145 N = NA) POTASSIUM (test 3.7 mmol/L 3.6-5.0 N code = K) CHLORIDE (test 108 mmol/L 101-111 N code = CL) CARBON DIOXIDE 31 mmol/L 21-31 N (test code = CO2) GLUCOSE (test code 146 mg/dl 70-100 H = GLU) BLOOD UREA 32 mg/dl 6-20 H NITROGEN (test code = BUN) GLOMERULAR >=60 max >60 The estimated FILTRATION RATE estimate glomerular (test code = GFR) filtration rate is computed usingpatient ra ce, age (>18), sex, and serum creatinin e. If anyof the neede d data elements a re missing the Laboratory jarvis ot compute an estimation of t he glomerular filtration rate . CREATININE (test 0.74 mg/dL 0.44-1.03 N code = CREAT) CALCIUM (test code 8.5 mg/dL 8.5-10.5 N = CA) [id number] 21:02:00 Test Item Value Reference Range Interpretation Comments GLUBED (test code = GLUBED) 164 MG/DL 70-105 H LACTIC [id number] 18:08:00 Test Item Value Reference Range Interpretation Comments LACTIC ACID (test code = LACT) 1.2 mmol/L 0.5-2.0 N - XR CHEST 1 [id number] 14:36:00 [facility] : 1975 Sex: FPatient Name: JERI VILLALOBOS Unit No: [id number] EXAMS: CPT: [id number] XR CHEST 1 V 20190 EXAM: XR CHEST 1 VIEW DATE: 02/22/2022 1:39 PM INDICATION: Sepsis COMPARISON: Chest radiograph on 02/21/2022. TECHNIQUE: AP chest. FINDINGS: Lines, tubes and hardware: A tracheostomy tube is identified with tip overlying the thoracic trachea. Lungs and pleura: No significant change in the left lower lobe atelectasisand/or infiltrates. The lungs are otherwise clear. Vasculature is normal. The costophrenic sulci aresharp without effusion. No pneumothorax is identified. Heart and mediastinum: The heart size is normal. The mediastinal contours are normal. Bones and soft tissues: No acute abnormality. IMPRESSION: No significant change in left lower lobe subsegmental atelectasis or infiltrates. The lungs are otherwise clear. at 1436 Reported and signed by:Yung Abel MD CC: Manuel Rose DO Technologist: Stephanie Deleon Time: DAP (Gy m2): Air Kerma(mGy): Trscr Dt/Tm: 02/22/2022 (1436) by:[email or web address] Orig Print D/T: S: 02/22/2022 (1439) BATCH NO: N/A Name: JERI VILLALOBOS [facility] Phys: SIDFA. - [place],Manuel Sidhu D [address] [facility] : 1975 Age: 46 Sex: F [place], [place] [address] Loc: N.0353 1 Exam Date: 02/22/2022 Status: ADM IN PH: FAX: PAGE 1 Signed ReportUA RFLX MICR CULT IF [id number] 13:49:00 Test Item Value Reference Range Interpretation Comments UA COLOR (test code = YELLOW YELLOW COLU) UA APPEARANCE (test Turbid CLEAR code = APPU) UA GLUCOSE DIPSTICK NEGATIVE NEGATIVE (test code = DGLUU) UA BILIRUBIN DIPSTICK NEGATIVE NEGATIVE (test code = BILU) UA KETONE DIPSTICK NEGATIVE NEGATIVE (test code = KETU) UA SPECIFIC GRAVITY 1.026 1.001-1.030 (test code = SGU) UA BLOOD DIPSTICK NEGATIVE NEGATIVE (test code = KITA) UA PH DIPSTICK (test 5.0 5.0-9.0 code = RICHARD) UA PROTEIN DIPSTICK NEGATIVE NEGATIVE (test code = PROU) UA UROBILINOGEN NEGATIVE See_Comment [Automated message] The DIPSTICK (test code = system which generated URO) this result tra nsmitted reference range : <=1.0. The reference r julia was not used to int erpret this result as normal/abnormal . UA NITRITE DIPSTICK NEGATIVE NEGATIVE (test code = SRIDHAR) UA ASCORBIC ACID POSITIVE A High levels of ascorbic DIPSTICK (test code = acid m ay cause false AAU) negativeresults for blood, glucose & nitrite. UA LEUKOCYTE ESTERASE NEGATIVE NEGATIVE DIPSTICK (test code = LEUU) UA WBC (test code = 0-5 /HPF 0-5 WBCUR) UA RBC (test code = 0-5 /HPF 0-5 RBCU) UA EPITHELIAL CELLS MOD /LPF NONE-FEW (test code = EPIU) UA BACTERIA (test 1+ /HPF NONE SEEN A code = BACU) UA AMORPHOUS SEDIMENT FEW /HPF NONE SEEN (test code = AMORU) UA YEAST (test code = OCC /HPF NONE SEEN YEASTU) Indication for culture: Temperature > 100.4 FSpecimen Description: CATHETERIZED (STRAIGHT)[id number] 11:40:00 Test Item Value Reference Range Interpretation Comments GLUBED (test code = GLUBED) 168 MG/DL 70-105 H BASIC METABOLIC [id number] 06:49:00 Test Item Value Reference Range Interpretation Comments SODIUM (test code 144 mmol/L 135-145 N = NA) POTASSIUM (test 4.4 mmol/L 3.6-5.0 N code = K) CHLORIDE (test 105 mmol/L 101-111 N code = CL) CARBON DIOXIDE 26 mmol/L 21-31 N (test code = CO2) GLUCOSE (test code 163 mg/dl 70-100 H = GLU) BLOOD UREA 41 mg/dl 6-20 H NITROGEN (test code = BUN) GLOMERULAR >=60 max >60 The estimated FILTRATION RATE estimate glomerular (test code = GFR) filtration rate is computed usingpatient ra ce, age (>18), sex, and serum creatinin e. If anyof the neede d data elements a re missing the Laboratory jarvis ot compute an estimation of t he glomerular filtration rate . CREATININE (test 0.83 mg/dL 0.44-1.03 N code = CREAT) CALCIUM (test code 9.5 mg/dL 8.5-10.5 N = CA) [id number] 06:49:00 Test Item Value Reference Range Interpretation Comments MAGNESIUM (test code = MAG) 2.4 mg/dl 1.8-2.5 N CBC W/AUTO [id number] 06:34:00 Test Item Value Reference Range Interpretation Comments WHITE BLOOD CELL (test code = 20.5 x10 3/uL 3.2-11.5 H WBC) RED BLOOD CELL (test code = 4.60 x10(6)/m 3.70-5.10 N RBC) HEMOGLOBIN (test code = HGB) 13.0 g/dL 12.0-15.0 N HEMATOCRIT (test code = HCT) 40.3 % 35.7-44.8 N MEAN CELL VOLUME (test code = 88 fL 80-100 N MCV) MEAN CELL HGB (test code = MCH) 28.3 pg 26.2-33.8 N MEAN CELL HGB CONCENTRATION 32.3 g/dL 30.0-34.0 N (test code = MCHC) RED CELL DISTRIBUTION WIDTH 12.2 % 11.3-14.5 N (test code = RDW) PLATELET COUNT (test code = 483 x10 3/uL 130-408 H PLT) MEAN PLATELET VOLUME (test code 10.7 fL 8.6-12.6 N = MPV) NEUTROPHIL % (test code = NT%) 79.9 % 40.0-70.0 H LYMPHOCYTE % (test code = LY%) 13.1 % 20-40 L MONOCYTE % (test code = MO%) 5.1 % 1-10 N EOSINOPHIL % (test code = EO%) 0.6 % 0.0-5.0 N BASOPHIL % (test code = BA%) 0.4 % 0.0-1.0 N NUCLEATED RBC % (test code = 0.0 % 0.0-0.9 N NRBC%) NEUTROPHIL # (test code = NT#) 16.4 x10 3/uL 1.6-7.2 H LYMPHOCYTE # (test code = LY#) 2.68 x10 3/uL 1.1-2.7 N MONOCYTE # (test code = MO#) 1.1 x10 3/uL 0.3-0.8 H EOSINOPHIL # (test code = EO#) 0.1 x10 3/uL 0.0-0.5 N IMMATURE GRANULOCYTE % (test 0.9 % 0.0-2.0 N code = IG%) BASOPHIL # (test code = BA#) 0.1 x10 3/uL 0.0-0.1 N [id number] 05:45:00 Test Item Value Reference Range Interpretation Comments GLUBED (test code = GLUBED) 172 MG/DL 70-105 H [id number] 19:41:00 Test Item Value Reference Range Interpretation Comments GLUBED (test code = GLUBED) 138 MG/DL 70-105 H [id number] 15:35:00 Test Item Value Reference Range Interpretation Comments GLUBED (test code = GLUBED) 155 MG/DL 70-105 H [id number] 12:37:00 Test Item Value Reference Range Interpretation Comments GLUBED (test code = GLUBED) 157 MG/DL 70-105 H - XR CHEST 1 [id number] 09:18:00 [facility] [place] : 1975 Sex: FPatient Name: JERI VILLALOBOS Clifford Unit No: [id number] EXAMS: CPT: [id number] XR CHEST 1 V [id number] EXAM: XR CHEST1 VIEW DATE: 02/21/2022 8:14 AM INDICATION: Increased tracheal secretions COMPARISON: Chest radiograph on 02/11/2022 TECHNIQUE: AP chest. FINDINGS: Lines, tubes and hardware: A tracheostomy tube is identified with tip overlying the thoracic trachea. Lungs and pleura: No significant change in the left lower lobe atelectasis and/or infiltrates. The lungs are otherwise clear. Vasculature is normal. Costophrenic sulcus is sharp. No pneumothorax is identified. Heart and mediastinum: The heart size is normal. The mediastinal contours are normal. Bones and soft tissues: No acute abnormality. IMPRESSION: No significant change in left lower lobe subsegmental atelectasis or infiltrates. The lungs are otherwise clear. at 0918 Reported and signed by:Yung Abel MD CC: Manuel Rose DO Technologist: Logan Deleon Time: DAP (Gy m2): Air Kerma (mGy): Trscr Dt/Tm: 02/21/2022 (917) by:[email or web address] Orig Print D/T: S: 02/21/2022 (920) BATCH NO: N/A Name: FABIJERI [facility] Phys: SIDFA. [place],Manuel Grant [address] : 1975 Age: 46 Sex: F [place] [address] Loc: N.0353 1 Exam Date: 02/21/2022 Status: ADM IN PH: FAX: PAGE 1 Signed ReportCBC W/AUTO [id number] 07:45:00 Test Item Value Reference Range Interpretation Comments WHITE BLOOD CELL (test code = 14.6 x10 3/uL 3.2-11.5 H WBC) RED BLOOD CELL (test code = 4.36 x10(6)/m 3.70-5.10 N RBC) HEMOGLOBIN (test code = HGB) 12.2 g/dL 12.0-15.0 N HEMATOCRIT (test code = HCT) 38.8 % 35.7-44.8 N MEAN CELL VOLUME (test code = 89 fL 80-100 N MCV) MEAN CELL HGB (test code = MCH) 28.0 pg 26.2-33.8 N MEAN CELL HGB CONCENTRATION 31.4 g/dL 30.0-34.0 N (test code = MCHC) RED CELL DISTRIBUTION WIDTH 12.2 % 11.3-14.5 N (test code = RDW) PLATELET COUNT (test code = 543 x10 3/uL 130-408 H PLT) MEAN PLATELET VOLUME (test code 10.1 fL 8.6-12.6 N = MPV) NEUTROPHIL % (test code = NT%) 69.3 % 40.0-70.0 N LYMPHOCYTE % (test code = LY%) 20.8 % 20-40 N MONOCYTE % (test code = MO%) 7.3 % 1-10 N EOSINOPHIL % (test code = EO%) 1.2 % 0.0-5.0 N BASOPHIL % (test code = BA%) 0.5 % 0.0-1.0 N NUCLEATED RBC % (test code = 0.0 % 0.0-0.9 N NRBC%) NEUTROPHIL # (test code = NT#) 10.1 x10 3/uL 1.6-7.2 H LYMPHOCYTE # (test code = LY#) 3.03 x10 3/uL 1.1-2.7 H MONOCYTE # (test code = MO#) 1.1 x10 3/uL 0.3-0.8 H EOSINOPHIL # (test code = EO#) 0.2 x10 3/uL 0.0-0.5 N IMMATURE GRANULOCYTE % (test 0.9 % 0.0-2.0 N code = IG%) BASOPHIL # (test code = BA#) 0.1 x10 3/uL 0.0-0.1 N BASIC METABOLIC [id number] 07:22:00 Test Item Value Reference Range Interpretation Comments SODIUM (test code 143 mmol/L 135-145 N = NA) POTASSIUM (test 3.9 mmol/L 3.6-5.0 N code = K) CHLORIDE (test 104 mmol/L 101-111 N code = CL) CARBON DIOXIDE 29 mmol/L 21-31 N (test code = CO2) GLUCOSE (test code 136 mg/dl 70-100 H = GLU) BLOOD UREA 31 mg/dl 6-20 H NITROGEN (test code = BUN) GLOMERULAR >=60 max >60 The estimated FILTRATION RATE estimate glomerular (test code = GFR) filtration rate is computed usingpatient ra ce, age (>18), sex, and serum creatinin e. If anyof the neede d data elements a re missing the Laboratory jarvis ot compute an estimation of t he glomerular filtration rate . CREATININE (test 0.84 mg/dL 0.44-1.03 N code = CREAT) CALCIUM (test code 9.1 mg/dL 8.5-10.5 N = CA) [id number] 07:09:00 Test Item Value Reference Range Interpretation Comments GLUBED (test code = GLUBED) 160 MG/DL 70-105 H [id number] 20:59:00 Test Item Value Reference Range Interpretation Comments GLUBED (test code = GLUBED) 122 MG/DL 70-105 H BASIC METABOLIC [id number] 16:30:00 Test Item Value Reference Range Interpretation Comments SODIUM (test code 141 mmol/L 135-145 N = NA) POTASSIUM (test 4.0 mmol/L 3.6-5.0 N code = K) CHLORIDE (test 104 mmol/L 101-111 N code = CL) CARBON DIOXIDE 26 mmol/L 21-31 N (test code = CO2) GLUCOSE (test code 148 mg/dl 70-100 H = GLU) BLOOD UREA 33 mg/dl 6-20 H NITROGEN (test code = BUN) GLOMERULAR >=60 max >60 The estimated FILTRATION RATE estimate glomerular (test code = GFR) filtration rate is computed usingpatient ra ce, age (>18), sex, and serum creatinin e. If anyof the neede d data elements a re missing the Laboratory jarvis ot compute an estimation of t he glomerular filtration rate . CREATININE (test 0.78 mg/dL 0.44-1.03 N code = CREAT) CALCIUM (test code 9.0 mg/dL 8.5-10.5 N = CA) CBC W/AUTO [id number] 16:02:00 Test Item Value Reference Range Interpretation Comments WHITE BLOOD CELL (test code = 14.2 x10 3/uL 3.2-11.5 H WBC) RED BLOOD CELL (test code = 4.21 x10(6)/m 3.70-5.10 N RBC) HEMOGLOBIN (test code = HGB) 12.0 g/dL 12.0-15.0 HEMATOCRIT (test code = HCT) 37.4 % 35.7-44.8 N MEAN CELL VOLUME (test code = 89 fL 80-100 N MCV) MEAN CELL HGB (test code = MCH) 28.5 pg 26.2-33.8 N MEAN CELL HGB CONCENTRATION 32.1 g/dL 30.0-34.0 N (test code = MCHC) RED CELL DISTRIBUTION WIDTH 12.2 % 11.3-14.5 N (test code = RDW) PLATELET COUNT (test code = 501 x10 3/uL 130-408 H PLT) MEAN PLATELET VOLUME (test code 9.3 fL 8.6-12.6 N = MPV) NEUTROPHIL % (test code = NT%) 72.5 % 40.0-70.0 H IMMATURE GRANULOCYTE % (test 0.3 % 0.0-2.0 N code = IG%) LYMPHOCYTE % (test code = LY%) 19.1 % 20-40 L MONOCYTE % (test code = MO%) 6.4 % 1-10 N EOSINOPHIL % (test code = EO%) 1.1 % 0.0-5.0 N BASOPHIL % (test code = BA%) 0.6 % 0.0-1.0 N NUCLEATED RBC % (test code = 0.0 % 0.0-0.9 N NRBC%) NEUTROPHIL # (test code = NT#) 10.3 x10 3/uL 1.6-7.2 H LYMPHOCYTE # (test code = LY#) 2.71 x10 3/uL 1.1-2.7 H MONOCYTE # (test code = MO#) 0.9 x10 3/uL 0.3-0.8 H EOSINOPHIL # (test code = EO#) 0.2 x10 3/uL 0.0-0.5 N BASOPHIL # (test code = BA#) 0.1 x10 3/uL 0.0-0.1 N [id number] 15:05:00 Test Item Value Reference Range Interpretation Comments GLUBED (test code = GLUBED) 142 MG/DL 70-105 H [id number] 10:44:00 Test Item Value Reference Range Interpretation Comments GLUBED (test code = GLUBED) 150 MG/DL 70-105 H [id number] 06:45:00 Test Item Value Reference Range Interpretation Comments GLUBED (test code = GLUBED) 153 MG/DL 70-105 H [id number] 21:00:00 Test Item Value Reference Range Interpretation Comments GLUBED (test code = GLUBED) 135 MG/DL 70-105 H [id number] 12:11:00 Test Item Value Reference Range Interpretation Comments GLUBED (test code = GLUBED) 127 MG/DL 70-105 H - XR CHEST 1 [id number] 07:51:00 [facility] : 1975 Sex: FPatient Name: JERI VILLALOBOS Unit No: [id number] EXAMS: CPT: [id number] XR CHEST 1 V 51949 Comparison study: 02/15/2022 History: Respiratory failure CHEST 1 VIEW FINDINGS: A tracheostomy tube is present. There is been no significant change in the left lower lobe subsegmental atelectasis and/or infiltrates.The right lung is clear. The heart size is magnified by the AP technique. The pulmonary vasculature is within normal limits. No pneumothorax or pleural effusion is present. No acute fracture is identified. IMPRESSION: 1. No significant change in the left lower lobe subsegmental atelectasis and/or infiltrates. at 0751 Reported and signed by: Travis Bashir MD CC: Love Kumar MD; Shun Bronson NP Technologist: Neris Deleon Time: DAP (Gy m2): Air Kerma (mGy): Trscr Dt/Tm: 02/19/2022 (0751) by:[email or web address] Orig Print D/T: S: 02/19/2022 (0754) BATCH NO: N/A Name: JERI VILLALOBOS [facility] Phys: Shun Garcia [employer] [address] : 1975 Age: 46 Sex: F [place], [place] [address] [id number] Loc: N.2050 1 Exam Date: 02/19/2022 Status: ADM IN PH: FAX: PAGE 1 Signed Report [id number] 06:40:00 Test Item Value Reference Range Interpretation Comments GLUBED (test code = GLUBED) 152 MG/DL 70-105 H BASIC METABOLIC [id number] 04:44:00 Test Item Value Reference Range Interpretation Comments SODIUM (test code 139 mmol/L 135-145 N = NA) POTASSIUM (test 4.2 mmol/L 3.6-5.0 N code = K) CHLORIDE (test 101 mmol/L 101-111 N code = CL) CARBON DIOXIDE 27 mmol/L 21-31 N (test code = CO2) GLUCOSE (test code 142 mg/dl 70-100 H = GLU) BLOOD UREA 35 mg/dl 6-20 H NITROGEN (test code = BUN) GLOMERULAR >=60 max >60 The estimated FILTRATION RATE estimate glomerular (test code = GFR) filtration rate is computed usingpatient ra ce, age (>18), sex, and serum creatinin e. If anyof the neede d data elements a re missing the Laboratory jarvis ot compute an estimation of t he glomerular filtration rate . CREATININE (test 0.84 mg/dL 0.44-1.03 N code = CREAT) CALCIUM (test code 9.5 mg/dL 8.5-10.5 N = CA) [id number] 04:44:00 Test Item Value Reference Range Interpretation Comments PHOSPHOROUS (test code = PHOS) 5.5 mg/dl 2.5-4.6 H [id number] 04:44:00 Test Item Value Reference Range Interpretation Comments MAGNESIUM (test code = MAG) 2.3 mg/dl 1.8-2.5 N CBC W/AUTO [id number] 04:30:00 Test Item Value Reference Range Interpretation Comments WHITE BLOOD CELL (test code = 13.0 x10 3/uL 3.2-11.5 H WBC) RED BLOOD CELL (test code = 4.75 x10(6)/m 3.70-5.10 N RBC) HEMOGLOBIN (test code = HGB) 13.5 g/dL 12.0-15.0 N HEMATOCRIT (test code = HCT) 41.2 % 35.7-44.8 N MEAN CELL VOLUME (test code = 87 fL 80-100 N MCV) MEAN CELL HGB (test code = MCH) 28.4 pg 26.2-33.8 N MEAN CELL HGB CONCENTRATION 32.8 g/dL 30.0-34.0 N (test code = MCHC) RED CELL DISTRIBUTION WIDTH 11.9 % 11.3-14.5 N (test code = RDW) PLATELET COUNT (test code = 532 x10 3/uL 130-408 H PLT) MEAN PLATELET VOLUME (test code 9.2 fL 8.6-12.6 N = MPV) NEUTROPHIL % (test code = NT%) 67.9 % 40.0-70.0 N LYMPHOCYTE % (test code = LY%) 22.5 % 20-40 N MONOCYTE % (test code = MO%) 6.9 % 1-10 N EOSINOPHIL % (test code = EO%) 1.8 % 0.0-5.0 N BASOPHIL % (test code = BA%) 0.5 % 0.0-1.0 N NUCLEATED RBC % (test code = 0.0 % 0.0-0.9 N NRBC%) NEUTROPHIL # (test code = NT#) 8.9 x10 3/uL 1.6-7.2 H LYMPHOCYTE # (test code = LY#) 2.93 x10 3/uL 1.1-2.7 H MONOCYTE # (test code = MO#) 0.9 x10 3/uL 0.3-0.8 H EOSINOPHIL # (test code = EO#) 0.2 x10 3/uL 0.0-0.5 N IMMATURE GRANULOCYTE % (test 0.4 % 0.0-2.0 N code = IG%) BASOPHIL # (test code = BA#) 0.1 x10 3/uL 0.0-0.1 N [id number] 00:35:00 Test Item Value Reference Range Interpretation Comments GLUBED (test code = GLUBED) 136 MG/DL 70-105 H [id number] 16:43:00 Test Item Value Reference Range Interpretation Comments GLUBED (test code = GLUBED) 140 MG/DL 70-105 H [id number] 07:44:00 Test Item Value Reference Range Interpretation Comments GLUBED (test code = GLUBED) 152 MG/DL 70-105 H [id number] 07:44:00 Test Item Value Reference Range Interpretation Comments GLUBED (test code = GLUBED) 97 MG/DL 70-105 N [id number] 06:24:00 Test Item Value Reference Range Interpretation Comments GLUBED (test code = GLUBED) 142 MG/DL 70-105 H CBC W/AUTO [id number] 06:08:00 Test Item Value Reference Range Interpretation Comments WHITE BLOOD CELL (test code = 10.5 x10 3/uL 3.2-11.5 N WBC) RED BLOOD CELL (test code = 4.93 x10(6)/m 3.70-5.10 N RBC) HEMOGLOBIN (test code = HGB) 13.5 g/dL 12.0-15.0 N HEMATOCRIT (test code = HCT) 43.4 % 35.7-44.8 N MEAN CELL VOLUME (test code = 88 fL 80-100 N MCV) MEAN CELL HGB (test code = MCH) 27.4 pg 26.2-33.8 N MEAN CELL HGB CONCENTRATION 31.1 g/dL 30.0-34.0 N (test code = MCHC) RED CELL DISTRIBUTION WIDTH 12.0 % 11.3-14.5 N (test code = RDW) PLATELET COUNT (test code = 473 x10 3/uL 130-408 H PLT) MEAN PLATELET VOLUME (test code 9.2 fL 8.6-12.6 N = MPV) NEUTROPHIL % (test code = NT%) 66.5 % 40.0-70.0 N LYMPHOCYTE % (test code = LY%) 22.1 % 20-40 N MONOCYTE % (test code = MO%) 7.9 % 1-10 N EOSINOPHIL % (test code = EO%) 2.6 % 0.0-5.0 N BASOPHIL % (test code = BA%) 0.6 % 0.0-1.0 N NUCLEATED RBC % (test code = 0.0 % 0.0-0.9 N NRBC%) NEUTROPHIL # (test code = NT#) 7.0 x10 3/uL 1.6-7.2 N LYMPHOCYTE # (test code = LY#) 2.31 x10 3/uL 1.1-2.7 N MONOCYTE # (test code = MO#) 0.8 x10 3/uL 0.3-0.8 N EOSINOPHIL # (test code = EO#) 0.3 x10 3/uL 0.0-0.5 N IMMATURE GRANULOCYTE % (test 0.3 % 0.0-2.0 N code = IG%) BASOPHIL # (test code = BA#) 0.1 x10 3/uL 0.0-0.1 N BASIC METABOLIC [id number] 04:29:00 Test Item Value Reference Range Interpretation Comments SODIUM (test code 139 mmol/L 135-145 N = NA) POTASSIUM (test 4.4 mmol/L 3.6-5.0 N code = K) CHLORIDE (test 101 mmol/L 101-111 N code = CL) CARBON DIOXIDE 28 mmol/L 21-31 N (test code = CO2) GLUCOSE (test code 131 mg/dl 70-100 H = GLU) BLOOD UREA 28 mg/dl 6-20 H NITROGEN (test code = BUN) GLOMERULAR >=60 max >60 The estimated FILTRATION RATE estimate glomerular (test code = GFR) filtration rate is computed usingpatient ra ce, age (>18), sex, and serum creatinin e. If anyof the neede d data elements a re missing the Laboratory jarvis ot compute an estimation of t he glomerular filtration rate . CREATININE (test 0.82 mg/dL 0.44-1.03 N code = CREAT) CALCIUM (test code 10.0 mg/dL 8.5-10.5 N = CA) [id number] 04:29:00 Test Item Value Reference Range Interpretation Comments PHOSPHOROUS (test code = PHOS) 5.0 mg/dl 2.5-4.6 H [id number] 04:29:00 Test Item Value Reference Range Interpretation Comments MAGNESIUM (test code = MAG) 2.3 mg/dl 1.8-2.5 N [id number] 00:48:00 Test Item Value Reference Range Interpretation Comments GLUBED (test code = GLUBED) 103 MG/DL 70-105 N [id number] 16:28:00 Test Item Value Reference Range Interpretation Comments GLUBED (test code = GLUBED) 96 MG/DL 70-105 N - DUP EXTRACRANIAL [id number] 09:49:00 [facility] : 1975 Sex: FPatient Name: JERI VILLALOBOS Unit No: [id number] EXAMS: CPT: [id number] DUP EXTRACRANIAL [place] [address] BILATERAL CAROTID ARTERY ULTRASOUND DUPLEX SCAN AND WAVE FORM SPECTRAL ANALYSIS CONCLUSIONS: 1. Bilateral, mild atherosclerotic carotid stenotic disease. 2. There are no measured areas of stenosis greater than 50% in the Right carotid bulb, internal, or common carotid artery. Normal antegrade flow is presentin the Right Vertebral artery. 3. There are no measured areas of stenosis greater than 50% in the Left carotid bulb, internal, or common carotid artery. Normal antegrade flow is present in the Left Vertebral artery. 4. The Carotid Artery Wave Form Spectral Analysis is normal bilaterally HISTORY AND INDICATIONS FOR STUDY: This study is performed to evaluate the presence and extent of carotid atherosclerotic disease. Technical note: The common, external, and internal carotid arteries were evaluated bilaterally. Ultrasound, grayscale, color Doppler, and spectral waveform analysis of peak and end-diastolic velocities were performed at multiple levels. Comparison Study: None available FINDINGS: RIGHTCAROTID Ultrasound and duplex imaging of the right carotid bulb and right internal carotid artery exhibit mild changes of atherosclerotic disease. The actual measured area of stenosis is 35%. The Wave Form Spectral Analysis is normal without evidence of hemodynamically significant lesions, and this is consistent with stenosis of less than 50%. The Peak Systolic Velocity is less than 1.25 m/sec, and the Peak Diastolic Velocity is less than 0.4 m/sec. The VICA / VCCA ratio is 0.6. LEFT CAROTID Ultrasound and duplex imaging of the left carotid bulb and left internal carotid artery exhibit mild changes of atherosclerotic disease. The actual measured area of stenosis is 22%. The Wave Form Spectral Analysis is normal without evidence of hemodynamically significant lesions, and this is consistent with stenosis of less than 50%. The Peak Systolic Velocity is less than 1.25 m/sec, and the Peak DiastolicVelocity is less than 0.4 m/sec. The VICA / VCCA ratio is 0.8. Name: MIRELA VILLALOBOSNhaum HAN NorthwestPhys: Tiburcio Angel MD [address] [facility] : 1975 Age: 46 Sex: F [place] [address] Loc: N.2050 1 Exam Date: 02/16/2022 Status: ADM IN PH: FAX: PAGE 1 Signed Report(CONTINUED) Patient Name: JERI VILLALOBOS Unit No: [id number] EXAMS: CPT: [id number] DUP EXTRACRANIAL [place] [address] (Continued) VERTEBRAL ARTERY FLOW Normal antegrade vertebral artery flow bilaterally. at 0949 Reported and signed by: LISANDRA PADRON MD CC: Love Kumar MD; Tiburcio Cartagena MD Technologist: Anu So Probe: Trscr Dt/Tm: 02/17/2022 (0949) by:BasilHR Orig Print D/T: S: 02/17/2022 (0953) BATCH NO: N/A Name: MIRELA VILLALOBOSNahum Horton [facility] Phys: Tiburcio Angel MD [address] [facility] : 1975 Age: 46 Sex: F [place] [address] Loc: N.2050 1 Exam Date: 02/16/2022 Status: ADM IN PH: FAX: PAGE 2 [id number] 07:58:00 Test Item Value Reference Range Interpretation Comments GLUBED (test code = GLUBED) 110 MG/DL 70-105 H HCG [id number] 03:51:00 Test Item Value Reference Range Interpretation Comments HCG SERUM (test 0.5 mIU/ml Interpretive Data:HCG code = HCG) Quant BhCG Refe rence Ranges <5.0 mIU /ml Non- Ap prox. Gestational Age Reference Range (hCG in m IU/mL) 0.2-1.0 weeks 5 -50 1-2 weeks 50-500 2 -3 weeks 100-5,000 3-4 w eeks 500-10,000 4-5 weeks 1,000-50,000 5- 6 weeks 10,000-100,000 6-8 weeks 15,000-200,000 8-12 weeks 10,000-100,000 A test result that is inconsistent wi th the clinical pictur eand patient history should be interpreted wit h caution. This test is no t intended for use as a burns rrogate marker foraidin g in the diagnosis of mo nitoring the treatment o fcancer patients PROTHROMBIN [id number] 03:39:00 Test Item Value Reference Range Interpretation Comments PROTHROMBIN TIME 12.5 SECONDS 10.7-13.1 N PATIENT (test code = PTP) INTERNATIONAL NORMAL 1.1 The INR is to be RATIO (test code = used only for INR) monitoring oral anticoagulantth erap y. INDICATION I NR VALUE ---- ---- ---- --------1. Prophylaxis, de ep venous thrombos is, 2.0 - 2.5 inclu ding high-risk surgery.2. Prophylaxis, de ep venous thrombos is, 2.0 - 3.0 hip surgery, treatm ent for deep venous thrombosis or pulmonary prevention of systemic emboli sm in patients wit h valvular heart disease, atrial fibrillation, tissue heart va lve, or acute myocar dial infarction.3. Mechanical prosthesis hear t valves, 3.0 - 4 .5 recurrent syste chong embolism. THROMBOPLASTIN TIME [id number] 03:39:00 Test Item Value Reference Range Interpretation Comments THROMBOPLASTIN TIME PARTIAL (test 29 SECONDS 25-38 N code = PTT) BASIC METABOLIC [id number] 03:39:00 Test Item Value Reference Range Interpretation Comments SODIUM (test code 139 mmol/L 135-145 N = NA) POTASSIUM (test 4.2 mmol/L 3.6-5.0 N code = K) CHLORIDE (test 105 mmol/L 101-111 N code = CL) CARBON DIOXIDE 26 mmol/L 21-31 N (test code = CO2) GLUCOSE (test code 114 mg/dl 70-100 H = GLU) BLOOD UREA 23 mg/dl 6-20 H NITROGEN (test code = BUN) GLOMERULAR >=60 max >60 The estimated FILTRATION RATE estimate glomerular (test code = GFR) filtration rate is computed usingpatient ra ce, age (>18), sex, and serum creatinin e. If anyof the neede d data elements a re missing the Laboratory jarvis ot compute an estimation of t he glomerular filtration rate . CREATININE (test 0.70 mg/dL 0.44-1.03 N code = CREAT) CALCIUM (test code 9.3 mg/dL 8.5-10.5 N = CA) CBC W/AUTO [id number] 03:26:00 Test Item Value Reference Range Interpretation Comments WHITE BLOOD CELL (test code = 10.4 x10 3/uL 3.2-11.5 N WBC) RED BLOOD CELL (test code = 4.28 x10(6)/m 3.70-5.10 N RBC) HEMOGLOBIN (test code = HGB) 12.1 g/dL 12.0-15.0 N HEMATOCRIT (test code = HCT) 37.0 % 35.7-44.8 N MEAN CELL VOLUME (test code = 86 fL 80-100 N MCV) MEAN CELL HGB (test code = MCH) 28.3 pg 26.2-33.8 N MEAN CELL HGB CONCENTRATION 32.7 g/dL 30.0-34.0 N (test code = MCHC) RED CELL DISTRIBUTION WIDTH 12.3 % 11.3-14.5 N (test code = RDW) PLATELET COUNT (test code = 381 x10 3/uL 130-408 N PLT) MEAN PLATELET VOLUME (test code 9.1 fL 8.6-12.6 N = MPV) NEUTROPHIL % (test code = NT%) 68.9 % 40.0-70.0 N IMMATURE GRANULOCYTE % (test 0.3 % 0.0-2.0 N code = IG%) LYMPHOCYTE % (test code = LY%) 20.1 % 20-40 N MONOCYTE % (test code = MO%) 7.7 % 1-10 N EOSINOPHIL % (test code = EO%) 2.5 % 0.0-5.0 N BASOPHIL % (test code = BA%) 0.5 % 0.0-1.0 N NUCLEATED RBC % (test code = 0.0 % 0.0-0.9 N NRBC%) NEUTROPHIL # (test code = NT#) 7.2 x10 3/uL 1.6-7.2 N LYMPHOCYTE # (test code = LY#) 2.09 x10 3/uL 1.1-2.7 N MONOCYTE # (test code = MO#) 0.8 x10 3/uL 0.3-0.8 N EOSINOPHIL # (test code = EO#) 0.3 x10 3/uL 0.0-0.5 N BASOPHIL # (test code = BA#) 0.1 x10 3/uL 0.0-0.1 N [id number] 00:22:00 Test Item Value Reference Range Interpretation Comments GLUBED (test code = GLUBED) 112 MG/DL 70-105 H [id number] 16:32:00 Test Item Value Reference Range Interpretation Comments GLUBED (test code = GLUBED) 112 MG/DL 70-105 H [id number] 12:51:00 Test Item Value Reference Range Interpretation Comments GLUBED (test code = GLUBED) 118 MG/DL 70-105 H [id number] 07:34:00 Test Item Value Reference Range Interpretation Comments GLUBED (test code = GLUBED) 97 MG/DL 70-105 N COMPREHENSIVE METABOLIC [id number] 07:32:00 Test Item Value Reference Range Interpretation Comments SODIUM (test code = 139 mmol/L 135-145 N NA) POTASSIUM (test 3.9 mmol/L 3.6-5.0 N code = K) CHLORIDE (test code 104 mmol/L 101-111 N = CL) CARBON DIOXIDE 22 mmol/L 21-31 N (test code = CO2) GLUCOSE (test code 109 mg/dl 70-100 H = GLU) BLOOD UREA NITROGEN 17 mg/dl 6-20 N (test code = BUN) GLOMERULAR >=60 max >60 The estimated FILTRATION RATE estimate glomerular (test code = GFR) filtration rate is computed usingpatient ra ce, age (>18), sex, and serum creatinin e. If anyof the ne eded data elements a re missing the Laboratory jarvis ot compute an estimation of t he glomerular filtration rate . CREATININE (test 0.65 mg/dL 0.44-1.03 N code = CREAT) TOTAL PROTEIN (test 6.4 g/dL 6.7-8.2 L code = PROT) ALBUMIN (test code 2.8 g/dL 3.2-5.5 L = ALB) CALCIUM (test code 8.7 mg/dL 8.5-10.5 N = CA) BILIRUBIN TOTAL 0.90 mg/dL 0.2-1.3 N (test code = BILT) SGOT/AST (test code 41 U/L 10-42 N = AST) SGPT/ALT (test code 34 U/L 10-60 N = ALT) ALKALINE 54 U/L 42-121 N PHOSPHATASE (test code = ALKP) [id number] 04:16:00 Test Item Value Reference Range Interpretation Comments CREATININE (test code = CREAT) 0.63 mg/dL 0.44-1.03 N [id number] 04:16:00 Test Item Value Reference Range Interpretation Comments PHOSPHOROUS (test code = PHOS) 3.9 mg/dl 2.5-4.6 N [id number] 04:16:00 Test Item Value Reference Range Interpretation Comments MAGNESIUM (test code = MAG) 2.0 mg/dl 1.8-2.5 N [id number] 00:03:00 Test Item Value Reference Range Interpretation Comments GLUBED (test code = GLUBED) 110 MG/DL 70-105 H UA RFLX MICR CULT IF [id number] 13:51:00 Test Item Value Reference Range Interpretation Comments UA COLOR (test code YELLOW YELLOW = COLU) UA APPEARANCE (test Cloudy CLEAR code = APPU) UA GLUCOSE DIPSTICK NEGATIVE NEGATIVE (test code = DGLUU) UA BILIRUBIN NEGATIVE NEGATIVE DIPSTICK (test code = BILU) UA KETONE DIPSTICK NEGATIVE NEGATIVE (test code = KETU) UA SPECIFIC GRAVITY 1.015 1.001-1.030 (test code = SGU) UA BLOOD DIPSTICK NEGATIVE NEGATIVE (test code = KITA) UA PH DIPSTICK 7.0 5.0-9.0 (test code = RICHARD) UA PROTEIN DIPSTICK NEGATIVE NEGATIVE (test code = PROU) UA UROBILINOGEN NEGATIVE See_Comment [Automated message] DIPSTICK (test code The syst em which = URO) generated this result transmitted ref erence range: <=1.0. T he reference range was not used to int erpret this result as normal/abnormal . UA NITRITE DIPSTICK NEGATIVE NEGATIVE (test code = SRIDHAR) UA ASCORBIC ACID POSITIVE A High levels of DIPSTICK (test code ascorbic acid may = AAU) cause false negativeresults for blood, glucose & nitrite. UA LEUKOCYTE 1+ NEGATIVE A ESTERASE DIPSTICK (test code = LEUU) UA WBC (test code = 21-50 /HPF 0-5 A WBCUR) UA RBC (test code = 6-10 /HPF 0-5 RBCU) UA EPITHELIAL CELLS FEW /LPF NONE-FEW (test code = EPIU) UA BACTERIA (test 1+ /HPF NONE SEEN A code = BACU) UA MUCUS (test code 2+ /LPF NONE SEEN = MUCU) UA AMORPHOUS 4+ /HPF NONE SEEN SEDIMENT (test code = AMORU) UA TRICHOMONAS MODERATE /HPF NONE SEEN A (test code = TRICHU) Indication for culture: RiskForSepsis-no oth srcSpecimen Description: CATHETERIZED (STRAIGHT)[id number] 11:24:00 Test Item Value Reference Range Interpretation Comments GLUBED (test code = GLUBED) 106 MG/DL 70-105 H - DUP VEIN UNI [id number] 10:04:00 [facility] 1975 Sex: FPatient Name: JERI VILLALOBOS Unit No: [id number] EXAMS: CPT: [id number] [address] RIGHT UPPER EXTREMITY VENOUS COLOR DOPPLER SCAN AND IMAGING WITH WAVE FORM ANALYSIS / PLETHYSMOGRAPHY CONCLUSIONS: 1. Normal Venous Doppler Study of the RIGHT Upper Extremity. 2. No evidence of Deep Venous Thrombosis or Obstruction in the visualized veins of the right upper extremity. Of note the study is limited secondary to overlying bandage over the mid portion of the brachial vein and the exam is limited given that patient is contracted not allowing for proper positioning. If concern for DVT remains high may consider repeating examination with dressing removed. HISTORY AND INDICATIONS FOR THIS STUDY: This study is performed to evaluate the patency of the deep veins of the right upper extremity. TECHNICAL NOTE: Real time venous Doppler studies with real time color duplex imaging, wave form analysis, andcompression maneuvers were performed to evaluate the patency of the deep veins of the Right Upper Extremity. Per Vascular Lab protocol, the Left Subclavian vein was also scanned. COMPARISON STUDY: NoneAvailable FINDINGS: 1. No evidence of Deep Venous Thrombosis or Obstruction in the Right Subclavian Vein, Right Axillary Vein, or in the Right Brachial Vein. There is no evidence of intraluminal filling defects. The vessel f[place] are thin and smooth. Real time Doppler wave form analysis indicates normal antegrade flow patterns. 2. The Right Internal Jugular Vein is patent without evidence of thrombosis or obstruction. at 1004 Reported and signed by: LISANDRA PADRON MD CC: Love Kumar MD; Steph Kumari MD Technologist: FAMILIA Chavarria Probe: Trscr Dt/Tm: 02/15/2022 (1004) by:Basil Orig Print D/T: S: 02/15/2022 (1007) BATCH NO: N/A Name: JERI VILLALOBOS [facility] Phys: JUANCARLOS. - Steph Kumari MD [address] [facility] : 1975 Age: 46 Sex: F [place], [place] [address] Loc: N.1 1 Exam Date: 02/14/2022 Status:ADM IN PH: FAX: PAGE 1 Signed [id number] 07:23:00 Test Item Value Reference Range Interpretation Comments GLUBED (test code = GLUBED) 134 MG/DL 70-105 H - XR CHEST 1 [id number] 06:40:00 [facility] : 1975 Sex: FPatient Name: JERI VILLALOBOS Unit No: [id number] EXAMS: CPT: [id number] XR CHEST 1 V 95474 Portable chest, 02/15/2022. Clinical: Aspiration. Comment: The airway and gastric tubes remain in place. The right lung is free of active disease. There is a left basilar consolidation and/or atelectasis. There is noevidence of decompensation. No pneumothorax is detected. The regional skeleton appears stable. IMPRESSION: Increasing opacification of the left base since 02/13/2022. at 0640 Reported and signed by: Curtis Llamas MD CC: Love Kumar MD;Jorje Eller MD Technologist: Virgilio Deleon Time: DAP (Gy m2): Air Kerma (mGy): Trscr Dt/Tm: 02/15/2022 (0640) by:[email or web address] Orig Print D/T: S: 02/15/2022 (0643) BATCH NO: N/A Name: JERI VILLALOBOS [facility] Phys: Jorje Brasher MD [address] [facility] : 1975 Age: 46 Sex: F [place], [place] [address] Loc: N.2050 09 Exam Date: 02/15/2022 Status: ADM IN PH: FAX: PAGE 1 Signed [id number] 06:14:00 Test Item Value Reference Range Interpretation Comments GLUBED (test code = GLUBED) 179 MG/DL 70-105 H BASIC METABOLIC [id number] 04:28:00 Test Item Value Reference Range Interpretation Comments SODIUM (test code 139 mmol/L 135-145 N = NA) POTASSIUM (test 3.7 mmol/L 3.6-5.0 N code = K) CHLORIDE (test 108 mmol/L 101-111 N code = CL) CARBON DIOXIDE 25 mmol/L 21-31 N (test code = CO2) GLUCOSE (test code 110 mg/dl 70-100 H = GLU) BLOOD UREA 14 mg/dl 6-20 N NITROGEN (test code = BUN) GLOMERULAR >=60 max >60 The estimated FILTRATION RATE estimate glomerular (test code = GFR) filtration rate is computed usingpatient ra ce, age (>18), sex, and serum creatinin e. If anyof the neede d data elements a re missing the Laboratory jarvis ot compute an estimation of t he glomerular filtration rate . CREATININE (test 0.64 mg/dL 0.44-1.03 N code = CREAT) CALCIUM (test code 8.5 mg/dL 8.5-10.5 N = CA) [id number] 04:28:00 Test Item Value Reference Range Interpretation Comments PHOSPHOROUS (test code = PHOS) 3.7 mg/dl 2.5-4.6 N [id number] 04:28:00 Test Item Value Reference Range Interpretation Comments MAGNESIUM (test code = MAG) 1.7 mg/dl 1.8-2.5 L CBC W/AUTO [id number] 04:18:00 Test Item Value Reference Range Interpretation Comments WHITE BLOOD CELL (test code = 13.7 x10 3/uL 3.2-11.5 H WBC) RED BLOOD CELL (test code = 3.83 x10(6)/m 3.70-5.10 N RBC) HEMOGLOBIN (test code = HGB) 11.0 g/dL 12.0-15.0 L HEMATOCRIT (test code = HCT) 33.2 % 35.7-44.8 L MEAN CELL VOLUME (test code = 87 fL 80-100 N MCV) MEAN CELL HGB (test code = MCH) 28.7 pg 26.2-33.8 N MEAN CELL HGB CONCENTRATION 33.1 g/dL 30.0-34.0 N (test code = MCHC) RED CELL DISTRIBUTION WIDTH 12.3 % 11.3-14.5 N (test code = RDW) PLATELET COUNT (test code = 276 x10 3/uL 130-408 N PLT) MEAN PLATELET VOLUME (test code 9.2 fL 8.6-12.6 N = MPV) NEUTROPHIL % (test code = NT%) 79.8 % 40.0-70.0 H LYMPHOCYTE % (test code = LY%) 11.8 % 20-40 L MONOCYTE % (test code = MO%) 6.0 % 1-10 N EOSINOPHIL % (test code = EO%) 1.9 % 0.0-5.0 N BASOPHIL % (test code = BA%) 0.2 % 0.0-1.0 N NUCLEATED RBC % (test code = 0.0 % 0.0-0.9 N NRBC%) NEUTROPHIL # (test code = NT#) 10.9 x10 3/uL 1.6-7.2 H LYMPHOCYTE # (test code = LY#) 1.62 x10 3/uL 1.1-2.7 N MONOCYTE # (test code = MO#) 0.8 x10 3/uL 0.3-0.8 N EOSINOPHIL # (test code = EO#) 0.3 x10 3/uL 0.0-0.5 N IMMATURE GRANULOCYTE % (test 0.3 % 0.0-2.0 N code = IG%) BASOPHIL # (test code = BA#) 0.0 x10 3/uL 0.0-0.1 N SED [id number] 02:39:00 Test Item Value Reference Range Interpretation Comments SED RATE (test code = SEDW) 57 mm/hr 0-20 H HIGH SENSITIVITY [id number] 01:33:00 Test Item Value Reference Range Interpretation Comments HIGH SENSITIVITY CRP (test code = 5.257 mg/dl 0.000-0.747 H CRPHS) [id number] 00:38:00 Test Item Value Reference Range Interpretation Comments GLUBED (test code = GLUBED) 96 MG/DL 70-105 N [id number] 16:56:00 Test Item Value Reference Range Interpretation Comments GLUBED (test code = GLUBED) 124 MG/DL 70-105 H ARTERIAL BLOOD [id number] 10:08:00 Test Item Value Reference Range Interpretation Comments ARTERIAL BLOOD GAS PH 7.459 7.350-7.450 H (test code = PHA) ARTERIAL BLOOD GAS 34.5 mmHg 35-45 L PCO2 (test code = PCO2A) ARTERIAL BLOOD GAS 132.3 mmHg 75-100 H PO2 (test code = PO2A) BICARBONATE TOTAL 23.9 mmol/L 22-26 N HCO3 (test code = HCO3) BASE EXCESS (test 0.5 mmol/L See_Comment N [Automate d message] code = MARY) The system [employer] generated this result transmit may reference range : (+/-)2.0. The reference range was not used to interpret this result as normal/abnormal . ABG O2 SATURATION 98.4 % 95.0-100.0 N (test code = SATA) ABG TYPE (test code = Arterial TYPEA) ARTERIAL FIO2 (test 35.0 % code = FIO2A) ABG VENT MODE (test CPAP code = MODEA) ABG PEEP (test code = 5.0 cmH2O PEEP) ABG SITE (test code = Right Radial SITEA) ALLENS TEST (test Yes code = ALLENS) TOTAL HGB (test code 12.5 g/dL 12.0-18.0 N = THB) [id number] 08:45:00 Test Item Value Reference Range Interpretation Comments GLUBED (test code = GLUBED) 112 MG/DL 70-105 H [id number] 04:22:00 Test Item Value Reference Range Interpretation Comments PHOSPHOROUS (test code = PHOS) 4.5 mg/dl 2.5-4.6 N [id number] 04:22:00 Test Item Value Reference Range Interpretation Comments MAGNESIUM (test code = MAG) 1.9 mg/dl 1.8-2.5 N BASIC METABOLIC [id number] 04:14:00 Test Item Value Reference Range Interpretation Comments SODIUM (test code 139 mmol/L 135-145 N = NA) POTASSIUM (test 4.0 mmol/L 3.6-5.0 N code = K) CHLORIDE (test 108 mmol/L 101-111 N code = CL) CARBON DIOXIDE 23 mmol/L 21-31 N (test code = CO2) GLUCOSE (test code 113 mg/dl 70-100 H = GLU) BLOOD UREA 13 mg/dl 6-20 N NITROGEN (test code = BUN) GLOMERULAR >=60 max >60 The estimated FILTRATION RATE estimate glomerular (test code = GFR) filtration rate is computed usingpatient ra ce, age (>18), sex, and serum creatinin e. If anyof the neede d data elements a re missing the Laboratory jarvis ot compute an estimation of t he glomerular filtration rate . CREATININE (test 0.63 mg/dL 0.44-1.03 N code = CREAT) CALCIUM (test code 8.6 mg/dL 8.5-10.5 N = CA) CBC W/AUTO [id number] 04:03:00 Test Item Value Reference Range Interpretation Comments WHITE BLOOD CELL (test code = 10.7 x10 3/uL 3.2-11.5 N WBC) RED BLOOD CELL (test code = 4.15 x10(6)/m 3.70-5.10 N RBC) HEMOGLOBIN (test code = HGB) 11.7 g/dL 12.0-15.0 L HEMATOCRIT (test code = HCT) 35.1 % 35.7-44.8 L MEAN CELL VOLUME (test code = 85 fL 80-100 N MCV) MEAN CELL HGB (test code = MCH) 28.2 pg 26.2-33.8 N MEAN CELL HGB CONCENTRATION 33.3 g/dL 30.0-34.0 N (test code = MCHC) RED CELL DISTRIBUTION WIDTH 12.3 % 11.3-14.5 N (test code = RDW) PLATELET COUNT (test code = 272 x10 3/uL 130-408 N PLT) MEAN PLATELET VOLUME (test code 9.3 fL 8.6-12.6 N = MPV) NEUTROPHIL % (test code = NT%) 75.3 % 40.0-70.0 H LYMPHOCYTE % (test code = LY%) 14.9 % 20-40 L MONOCYTE % (test code = MO%) 6.7 % 1-10 N EOSINOPHIL % (test code = EO%) 2.2 % 0.0-5.0 N BASOPHIL % (test code = BA%) 0.5 % 0.0-1.0 N NUCLEATED RBC % (test code = 0.0 % 0.0-0.9 N NRBC%) NEUTROPHIL # (test code = NT#) 8.0 x10 3/uL 1.6-7.2 H LYMPHOCYTE # (test code = LY#) 1.59 x10 3/uL 1.1-2.7 N MONOCYTE # (test code = MO#) 0.7 x10 3/uL 0.3-0.8 N EOSINOPHIL # (test code = EO#) 0.2 x10 3/uL 0.0-0.5 N IMMATURE GRANULOCYTE % (test 0.4 % 0.0-2.0 N code = IG%) BASOPHIL # (test code = BA#) 0.1 x10 3/uL 0.0-0.1 N [id number] 23:41:00 Test Item Value Reference Range Interpretation Comments GLUBED (test code = GLUBED) 89 MG/DL 70-105 N [id number] 18:22:00 Test Item Value Reference Range Interpretation Comments GLUBED (test code = GLUBED) 126 MG/DL 70-105 H - XR CHEST 1 [id number] 06:29:00 [facility] : 1975 Sex: FPatient Name: JERI VILLALOBOS Unit No: [id number] EXAMS: CPT: [id number] XR CHEST 1 V [id number] Portable chest, 02/13/2022. Clinical: Aspiration. Comment: The airway and gastric tubes remain in place. There are bilateral pulmonary opacities primarily within the right base and left lung. There is no evidence of decompensation. No pneumothorax is detected. The regional skeleton appears stable. IMPRESSION: Interval improvement since 02/12/2022. at 0629 Reported and signed by: Curtis Llamas MD CC: Love Kumar MD; Tejas Zapata Technologist: Papito Deleon Time: DAP (Gy m2): Air Kerma (mGy): Trscr Dt/Tm: 02/13/2022 (628) by:[email or web address] Orig Print D/T: S: 02/13/2022 (32) BATCH NO: N/A Name: JERI VILLALOBOS [facility] Phys: Tejas Bermeo [address] : 1975 Age: 46 Sex: F [place] [address] Loc: N.2050 1 Exam Date: 02/13/2022 Status: ADM IN PH: FAX: PAGE 1 Signed ReportCOMPREHENSIVE METABOLIC [id number] 04:15:00 Test Item Value Reference Range Interpretation Comments SODIUM (test code = 138 mmol/L 135-145 N NA) POTASSIUM (test 3.5 mmol/L 3.6-5.0 L code = K) CHLORIDE (test code 111 mmol/L 101-111 N = CL) CARBON DIOXIDE 23 mmol/L 21-31 N (test code = CO2) GLUCOSE (test code 110 mg/dl 70-100 H = GLU) BLOOD UREA NITROGEN 12 mg/dl 6-20 N (test code = BUN) GLOMERULAR >=60 max >60 The estimated FILTRATION RATE estimate glomerular (test code = GFR) filtration rate is computed usingpatient ra ce, age (>18), sex, and serum creatinin e. If anyof the ne eded data elements a re missing the Laboratory jarvis ot compute an estimation of t he glomerular filtration rate . CREATININE (test 0.59 mg/dL 0.44-1.03 N code = CREAT) TOTAL PROTEIN (test 5.9 g/dL 6.7-8.2 L code = PROT) ALBUMIN (test code 2.6 g/dL 3.2-5.5 L = ALB) CALCIUM (test code 8.0 mg/dL 8.5-10.5 L = CA) BILIRUBIN TOTAL 0.80 mg/dL 0.2-1.3 N (test code = BILT) SGOT/AST (test code 45 U/L 10-42 H = AST) SGPT/ALT (test code 34 U/L 10-60 N = ALT) ALKALINE 48 U/L 42-121 N PHOSPHATASE (test code = ALKP) [id number] 04:15:00 Test Item Value Reference Range Interpretation Comments PHOSPHOROUS (test code = PHOS) 3.4 mg/dl 2.5-4.6 N [id number] 04:15:00 Test Item Value Reference Range Interpretation Comments MAGNESIUM (test code = MAG) 1.9 mg/dl 1.8-2.5 N CBC W/AUTO [id number] 04:06:00 Test Item Value Reference Range Interpretation Comments WHITE BLOOD CELL (test code = 9.0 x10 3/uL 3.2-11.5 N WBC) RED BLOOD CELL (test code = 3.82 x10(6)/m 3.70-5.10 N RBC) HEMOGLOBIN (test code = HGB) 10.8 g/dL 12.0-15.0 L HEMATOCRIT (test code = HCT) 32.6 % 35.7-44.8 L MEAN CELL VOLUME (test code = 85 fL 80-100 N MCV) MEAN CELL HGB (test code = MCH) 28.3 pg 26.2-33.8 N MEAN CELL HGB CONCENTRATION 33.1 g/dL 30.0-34.0 N (test code = MCHC) RED CELL DISTRIBUTION WIDTH 12.1 % 11.3-14.5 N (test code = RDW) PLATELET COUNT (test code = 243 x10 3/uL 130-408 N PLT) MEAN PLATELET VOLUME (test code 9.4 fL 8.6-12.6 N = MPV) NEUTROPHIL % (test code = NT%) 71.6 % 40.0-70.0 H IMMATURE GRANULOCYTE % (test 0.2 % 0.0-2.0 N code = IG%) LYMPHOCYTE % (test code = LY%) 17.8 % 20-40 L MONOCYTE % (test code = MO%) 6.7 % 1-10 N EOSINOPHIL % (test code = EO%) 3.3 % 0.0-5.0 N BASOPHIL % (test code = BA%) 0.4 % 0.0-1.0 N NUCLEATED RBC % (test code = 0.0 % 0.0-0.9 N NRBC%) NEUTROPHIL # (test code = NT#) 6.5 x10 3/uL 1.6-7.2 N LYMPHOCYTE # (test code = LY#) 1.61 x10 3/uL 1.1-2.7 N MONOCYTE # (test code = MO#) 0.6 x10 3/uL 0.3-0.8 N EOSINOPHIL # (test code = EO#) 0.3 x10 3/uL 0.0-0.5 N BASOPHIL # (test code = BA#) 0.0 x10 3/uL 0.0-0.1 N [id number] 00:07:00 Test Item Value Reference Range Interpretation Comments GLUBED (test code = GLUBED) 109 MG/DL 70-105 H [id number] 18:06:00 Test Item Value Reference Range Interpretation Comments GLUBED (test code = GLUBED) 113 MG/DL 70-105 H [id number] 12:18:00 Test Item Value Reference Range Interpretation Comments GLUBED (test code = GLUBED) 111 MG/DL 70-105 H - XR CHEST 1 [id number] 06:13:00 [facility] : 1975 Sex: FPatient Name: JERI VILLALOBOS Unit No: [id number] EXAMS: CPT: [id number] XR CHEST 1 V [id number] Portable chest, 02/12/2022. Clinical: Pneumonia. Comment: The airway and gastric tubes remain in place. There are bilateral consolidations primarily within the left lung and right base. There is no evidence of pneumothorax. The regional skeleton appears stable. IMPRESSION: No significant change since 02/10/2022. at 0613 Reported and signed by: Curtis Llamas MD CC: Love Kumar MD; Steph Kumari MD Technologist: Papito Grider Fluoro Time: DAP (Gy m2): Air Kerma (mGy): Trscr Dt/Tm: 02/12/2022 (612) by:[email or web address] Orig Print D/T: S: 02/12/2022 (06) BATCHNO: N/A Name: FABIJERI [facility] Phys: JUANCARLOS. Steph Kumari MD [address] [facility] :1975 Age: 46 Sex: F [place] [address] Loc: N.2050 1 Exam Date: 02/12/2022 Status: ADM IN PH: FAX: PAGE 1 Signed ReportCALCIUM [id number] 06:12:00 Test Item Value Reference Range Interpretation Comments CALCIUM IONIZED (test code = WESLY) 1.14 mmol/L 1.13-1.32 N [id number] 05:52:00 Test Item Value Reference Range Interpretation Comments PHOSPHOROUS (test code = PHOS) 2.7 mg/dl 2.5-4.6 N [id number] 05:52:00 Test Item Value Reference Range Interpretation Comments MAGNESIUM (test code = MAG) 1.7 mg/dl 1.8-2.5 L CBC W/AUTO [id number] 05:18:00 Test Item Value Reference Range Interpretation Comments WHITE BLOOD CELL (test code = 9.6 x10 3/uL 3.2-11.5 N WBC) RED BLOOD CELL (test code = 4.26 x10(6)/m 3.70-5.10 N RBC) HEMOGLOBIN (test code = HGB) 12.1 g/dL 12.0-15.0 N HEMATOCRIT (test code = HCT) 36.9 % 35.7-44.8 N MEAN CELL VOLUME (test code = 87 fL 80-100 N MCV) MEAN CELL HGB (test code = MCH) 28.4 pg 26.2-33.8 N MEAN CELL HGB CONCENTRATION 32.8 g/dL 30.0-34.0 N (test code = MCHC) RED CELL DISTRIBUTION WIDTH 12.2 % 11.3-14.5 N (test code = RDW) PLATELET COUNT (test code = 234 x10 3/uL 130-408 N PLT) MEAN PLATELET VOLUME (test code 9.3 fL 8.6-12.6 N = MPV) NEUTROPHIL % (test code = NT%) 75.7 % 40.0-70.0 H LYMPHOCYTE % (test code = LY%) 15.2 % 20-40 L MONOCYTE % (test code = MO%) 6.8 % 1-10 N EOSINOPHIL % (test code = EO%) 1.8 % 0.0-5.0 N BASOPHIL % (test code = BA%) 0.3 % 0.0-1.0 N NUCLEATED RBC % (test code = 0.0 % 0.0-0.9 N NRBC%) NEUTROPHIL # (test code = NT#) 7.3 x10 3/uL 1.6-7.2 H LYMPHOCYTE # (test code = LY#) 1.47 x10 3/uL 1.1-2.7 N MONOCYTE # (test code = MO#) 0.7 x10 3/uL 0.3-0.8 N EOSINOPHIL # (test code = EO#) 0.2 x10 3/uL 0.0-0.5 N IMMATURE GRANULOCYTE % (test 0.2 % 0.0-2.0 N code = IG%) BASOPHIL # (test code = BA#) 0.0 x10 3/uL 0.0-0.1 N COMPREHENSIVE METABOLIC [id number] 05:12:00 Test Item Value Reference Range Interpretation Comments SODIUM (test code = 141 mmol/L 135-145 N NA) POTASSIUM (test 3.7 mmol/L 3.6-5.0 N code = K) CHLORIDE (test code 107 mmol/L 101-111 N = CL) CARBON DIOXIDE 22 mmol/L 21-31 N (test code = CO2) GLUCOSE (test code 122 mg/dl 70-100 H = GLU) BLOOD UREA NITROGEN 12 mg/dl 6-20 N (test code = BUN) GLOMERULAR >=60 max >60 The estimated FILTRATION RATE estimate glomerular (test code = GFR) filtration rate is computed usingpatient ra ce, age (>18), sex, and serum creatinin e. If anyof the ne eded data elements a re missing the Laboratory jarvis ot compute an estimation of t he glomerular filtration rate . CREATININE (test 0.84 mg/dL 0.44-1.03 N code = CREAT) TOTAL PROTEIN (test 6.4 g/dL 6.7-8.2 L code = PROT) ALBUMIN (test code 2.9 g/dL 3.2-5.5 L = ALB) CALCIUM (test code 8.1 mg/dL 8.5-10.5 L = CA) BILIRUBIN TOTAL 1.20 mg/dL 0.2-1.3 N (test code = BILT) SGOT/AST (test code 48 U/L 10-42 H = AST) SGPT/ALT (test code 35 U/L 10-60 N = ALT) ALKALINE 56 U/L 42-121 N PHOSPHATASE (test code = ALKP) [id number] 01:02:00 Test Item Value Reference Range Interpretation Comments GLUBED (test code = GLUBED) 110 MG/DL 70-105 H HGBA1C - GLYCOSYLATED [id number] 19:19:00 Test Item Value Reference Range Interpretation Comments GLYCOSYLATED HEMOGLOBIN 5.6 % 4.0-6.0 N Inte rpretive Data: (HA1C) (test code = Caution should be GLYHGB) exercised when interpreting th e HgbA1c in patients wit h hemolytic anemi a, iron deficiency and when the total hemoglobi n is < 9g/dL, due to a decrease in average age of red blood cells - MRI BRAIN W/O [id number] 16:41:00 [facility] MIRELA VILLALOBOSNahum Horton : 1975 Sex: FPatient Name: JERI VILLALOBOS Unit No: [id number] EXAMS: CPT: [id number] MRI BRAIN W/O CONTRAST [id number] EXAM: MRI brain without intravenous contrast HISTORY: Reported pontine and cerebellar infarcts. COMPARISON: Head CT 02/11/2022 TECHNIQUE: Multiplanar and multisequence acquisitions of the brain were obtained without intravenous contrast. FINDINGS: Scalp: No abnormal signal. No masses. Bone marrow: Normal in signal intensity. Extra-axial: No masses, fluid collections or hemorrhage. Brain sulci: Appropriate for age. Ventricles: Normal in size . No hydrocephalus. Parenchyma: There is diffuse restricted diffusion throughout the marie, compatible with acute pontine infarct. There is a large wedge-shaped jono on of restricted diffusion in the inferior right cerebellar hemisphere. No supratentorial ischemia. No masses or acute hemorrhage. Suprasellar region: No abnormalities. Craniocervical junction: No abnormalities. Patent foramen magnum. No Chiari one malformation. Vessels: Normal flow-voids in the arteries and sinuses. IMPRESSION: Large region of restricted diffusion involving the marie, confirming theacute pontine infarct described on same day head CT. Wedge shaped region of restricted diffusion in the inferior right cerebellar hemisphere, also compatible with acute infarct. This was also reportedpreviously. No acute hemorrhage or mass effect at this time. Don Marshall DO Neuroradiology Electr onically Signed by DON MARSHALL MD on 02/11/2022 at 1641 Reported and signed by: DON MARSHALL MD Name: JERI VILLALOBOS [facility] Phys: JUANCARLOS. - Steph Kumari MD [address] [facility] : 1975 Age: 46 Sex: F [place], [place] [address] Loc: [id number] 1 Exam Date: 02/11/2022 Status: ADM IN PH: FAX: PAGE 1 Signed Report (CONTINUED) Patient Name: JERI VILLALOBOS Unit No: [id number] EXAMS: CPT: [id number] MRI BRAIN W/O CONTRAST 14097 (Continued) CC: Love Kumar MD; Steph Kumari MD Technologist: Natty Barker Dt/Tm: 02/11/2022 (1640) by:[email or web address] Orig Print D/T: S: 02/11/2022 (164) BATCH NO: N/A Name: JERI VILLALOBOS [facility] Phys: JUANCARLOS. Steph Kumari MD [address] [facility] : 1975 Age: 46 Sex: F [place], [place] [address] Loc: [id number] Exam Date: 02/11/2022 Status: ADM IN PH: FAX: PAGE 2 Signed ReportPROTHROMBIN [id number] 16:14:00 Test Item Value Reference Range Interpretation Comments PROTHROMBIN TIME 11.9 SECONDS 10.7-13.1 N PATIENT (test code = PTP) INTERNATIONAL NORMAL 1.0 The INR is to be RATIO (test code = used only for INR) monitoring oral anticoagulantth erap y. INDICATION INR VALUE ---- ---- ---- --------1. Prophylaxis, de ep venous thrombos is, 2.0 - 2.5 inclu ding high-risk surgery.2. Prophylaxis, de ep venous thrombos is, 2.0 - 3.0 hip surgery, treatm ent for deep venous thrombosis or pulmonary prevention of systemic emboli sm in patients wit h valvular heart disease, atrial fibrillation, tissue heart va lve, or acute myocar dial infarction.3. Mechanical prosthesis hear t valves, 3.0 - 4 .5 recurrent syste chong embolism. THROMBOPLASTIN TIME [id number] 16:14:00 Test Item Value Reference Range Interpretation Comments THROMBOPLASTIN TIME PARTIAL (test 31 SECONDS 25-38 N code = PTT) COMPREHENSIVE METABOLIC [id number] 16:03:00 Test Item Value Reference Range Interpretation Comments SODIUM (test code = 136 mmol/L 135-145 N NA) POTASSIUM (test 3.4 mmol/L 3.6-5.0 L code = K) CHLORIDE (test code 106 mmol/L 101-111 N = CL) CARBON DIOXIDE 23 mmol/L 21-31 N (test code = CO2) GLUCOSE (test code 130 mg/dl 70-100 H = GLU) BLOOD UREA NITROGEN 12 mg/dl 6-20 N (test code = BUN) GLOMERULAR >=60 max >60 The estimated FILTRATION RATE estimate glomerular (test code = GFR) filtration rate is computed usingpatient ra ce, age (>18), sex, and serum creatinin e. If anyof the ne eded data elements a re missing the Laboratory jarvis ot compute an estimation of t he glomerular filtration rate . CREATININE (test 0.65 mg/dL 0.44-1.03 N code = CREAT) TOTAL PROTEIN (test 6.2 g/dL 6.7-8.2 L code = PROT) ALBUMIN (test code 2.8 g/dL 3.2-5.5 L = ALB) CALCIUM (test code 7.9 mg/dL 8.5-10.5 L = CA) BILIRUBIN TOTAL 0.80 mg/dL 0.2-1.3 N (test code = BILT) SGOT/AST (test code 39 U/L 10-42 N = AST) SGPT/ALT (test code 35 U/L 10-60 N = ALT) ALKALINE 54 U/L 42-121 N PHOSPHATASE (test code = ALKP) Spec Comments: MUST BE FASTINGLIPID PROFILE (CORONARY RISK)2022-02-11 16:03:00 Test Item Value Reference Range Interpretation Comments TRIGLYCERIDES (test 123 mg/dL 35-160 N code = TRIG) CHOLESTEROL (test code 159 mg/dL 0-200 N = CHOL) HDL CHOLESTEROL (test 35 mg/dL 29-89 N code = HDL) LIPOPROTEIN LDL (test 100 mg/dl 0-100 N LDL NO RMAL code = LDLC) RANGE:Desirable <100 mg/dLBorderline Risk 130-159 mg/dLHi gh Risk >160 mg/dL CORONARY RISK FACTOR 4.54 Interpr etive Datai1: (test code = RISK) LDL Calc LDL Normal Range Desirable <100 mg/dl Borderlin e High 130-159 mg/dl > 160 mg/dl High Risk >160 mg/dl i2: Chol/ HDL Ratio of Total Cholesterol to HDL Risk Men Women Very Low (1/2 avg) < 3.4 <3.3 Low Risk 4 .0 3.8 Avg Risk 5.0 4. 5 Moderate Risk ( 2x avg) 9.5 7.0 Hi gh Risk (3x risk) >23 >11 Spec Comments: MUST BE [id number] 16:03:00 Test Item Value Reference Range Interpretation Comments MAGNESIUM (test code = MAG) 2.1 mg/dl 1.8-2.5 N Spec Comments: MUST BE [id number] 15:49:00 Test Item Value Reference Range Interpretation Comments TROPONIN-I (test code = TROPI) <0.020 ng/mL 0.000-0.034 N CBC W/AUTO [id number] 15:34:00 Test Item Value Reference Range Interpretation Comments WHITE BLOOD CELL (test code = 10.8 x10 3/uL 3.2-11.5 N WBC) RED BLOOD CELL (test code = 4.09 x10(6)/m 3.70-5.10 N RBC) HEMOGLOBIN (test code = HGB) 12.0 g/dL 12.0-15.0 N HEMATOCRIT (test code = HCT) 35.1 % 35.7-44.8 L MEAN CELL VOLUME (test code = 86 fL 80-100 N MCV) MEAN CELL HGB (test code = MCH) 29.3 pg 26.2-33.8 N MEAN CELL HGB CONCENTRATION 34.2 g/dL 30.0-34.0 H (test code = MCHC) RED CELL DISTRIBUTION WIDTH 12.4 % 11.3-14.5 N (test code = RDW) PLATELET COUNT (test code = 212 x10 3/uL 130-408 N PLT) MEAN PLATELET VOLUME (test code 9.0 fL 8.6-12.6 N = MPV) NEUTROPHIL % (test code = NT%) 81.9 % 40.0-70.0 H LYMPHOCYTE % (test code = LY%) 11.3 % 20-40 L MONOCYTE % (test code = MO%) 4.8 % 1-10 N EOSINOPHIL % (test code = EO%) 1.3 % 0.0-5.0 N BASOPHIL % (test code = BA%) 0.4 % 0.0-1.0 N NUCLEATED RBC % (test code = 0.0 % 0.0-0.9 N NRBC%) NEUTROPHIL # (test code = NT#) 8.9 x10 3/uL 1.6-7.2 H LYMPHOCYTE # (test code = LY#) 1.23 x10 3/uL 1.1-2.7 N MONOCYTE # (test code = MO#) 0.5 x10 3/uL 0.3-0.8 N EOSINOPHIL # (test code = EO#) 0.1 x10 3/uL 0.0-0.5 N IMMATURE GRANULOCYTE % (test 0.3 % 0.0-2.0 N code = IG%) BASOPHIL # (test code = BA#) 0.0 x10 3/uL 0.0-0.1 N - CT HEAD/BRAIN W/O [id number] 13:11:00 [facility] 1975 Sex: FPatient Name: JERI VILLALOBOS Unit No: [id number] EXAMS: CPT: [id number] CT HEAD/BRAIN W/O CONT [id number] Comparison study: 02/09/2022 HISTORY: anoxic brain injury CT SCAN OF THE HEAD WITHOUT CONTRAST FINDINGS:CT scan of brain was performed without contrast. One or more of the following dose reduction techniques were used: Automated exposure control, adjustment of the mA and/or KV according to patient size, a nd/or utilization of iterative reconstruction technique. Extensive low-density is present involving the marie consistent with an infarct. A 4.7 cm low-density area is present in the right cerebellum consistent with an infarct. Low-density is present in the left cerebellum consistent with an infarct. High density is present within the basilar artery suspicious of thrombus. The cortical sulci, cisterns and ventricles are within normal limits. No intra-axial mass or hemorrhage is present. No extra-axialfluid collections are present. The visualized aspects of the orbits and skull are unremarkable. Mildto moderate maxillary, ethmoid and sphenoid sinus mucosal thickening is present. The visualized sinuses are otherwise clear. IMPRESSION: 1. 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 2. Sinus mucosal thickening. 3. Critical results: Findings called to the ICU nurse 02/11/2022 at 1311 hours. at 1311 Reported and signed by: Travis Bashir MD CC: Love Kumar MD; Steph Kumari MD Technologist: Poncho. CTDI: 43.49 DLP: 800.24 Trscr Dt/Tm: 02/11/2022 (1311) by:[email or web address] Orig Print D/T: S: 02/11/2022 (1315) BATCH NO: N/A Name: JERI VILLALOBOS [facility] Phys: [email or web address] - Steph Kumari MD [address] [facility] : 1975 Age: 46 Sex: F [place] [address] Loc: N.2050 09 Exam Date: 02/11/2022 Status: ADM IN PH: FAX: PAGE 1 Signed [id number] 11:47:00 Test Item Value Reference Range Interpretation Comments GLUBED (test code = GLUBED) 98 MG/DL 70-105 N COMPREHENSIVE METABOLIC [id number] 06:39:00 Test Item Value Reference Range Interpretation Comments SODIUM (test code = 132 mmol/L 135-145 L NA) POTASSIUM (test 3.2 mmol/L 3.6-5.0 L code = K) CHLORIDE (test code 106 mmol/L 101-111 N = CL) CARBON DIOXIDE 21 mmol/L 21-31 N (test code = CO2) GLUCOSE (test code 114 mg/dl 70-100 H = GLU) BLOOD UREA NITROGEN 10 mg/dl 6-20 N (test code = BUN) GLOMERULAR >=60 max >60 The estimated FILTRATION RATE estimate glomerular (test code = GFR) filtration rate is computed usingpatient ra ce, age (>18), sex, and serum creatinin e. If anyof the ne eded data elements a re missing the Laboratory jarvis ot compute an estimation of t he glomerular filtration rate . CREATININE (test 0.75 mg/dL 0.44-1.03 N code = CREAT) TOTAL PROTEIN (test 5.9 g/dL 6.7-8.2 L code = PROT) ALBUMIN (test code 3.0 g/dL 3.2-5.5 L = ALB) CALCIUM (test code 7.9 mg/dL 8.5-10.5 L = CA) BILIRUBIN TOTAL 1.20 mg/dL 0.2-1.3 N (test code = BILT) SGOT/AST (test code 36 U/L 10-42 N = AST) SGPT/ALT (test code 35 U/L 10-60 N = ALT) ALKALINE 59 U/L 42-121 N PHOSPHATASE (test code = ALKP) CALCIUM [id number] 06:33:00 Test Item Value Reference Range Interpretation Comments CALCIUM IONIZED (test code = WESLY) 1.12 mmol/L 1.13-1.32 L CBC W/AUTO [id number] 06:27:00 Test Item Value Reference Range Interpretation Comments WHITE BLOOD CELL (test code = 10.5 x10 3/uL 3.2-11.5 N WBC) RED BLOOD CELL (test code = 4.20 x10(6)/m 3.70-5.10 N RBC) HEMOGLOBIN (test code = HGB) 11.9 g/dL 12.0-15.0 L HEMATOCRIT (test code = HCT) 36.4 % 35.7-44.8 N MEAN CELL VOLUME (test code = 87 fL 80-100 N MCV) MEAN CELL HGB (test code = MCH) 28.3 pg 26.2-33.8 N MEAN CELL HGB CONCENTRATION 32.7 g/dL 30.0-34.0 N (test code = MCHC) RED CELL DISTRIBUTION WIDTH 12.2 % 11.3-14.5 N (test code = RDW) PLATELET COUNT (test code = 228 x10 3/uL 130-408 N PLT) MEAN PLATELET VOLUME (test code 9.4 fL 8.6-12.6 N = MPV) NEUTROPHIL % (test code = NT%) 79.0 % 40.0-70.0 H LYMPHOCYTE % (test code = LY%) 14.0 % 20-40 L MONOCYTE % (test code = MO%) 5.1 % 1-10 N EOSINOPHIL % (test code = EO%) 1.2 % 0.0-5.0 N BASOPHIL % (test code = BA%) 0.4 % 0.0-1.0 N NUCLEATED RBC % (test code = 0.0 % 0.0-0.9 N NRBC%) NEUTROPHIL # (test code = NT#) 8.3 x10 3/uL 1.6-7.2 H LYMPHOCYTE # (test code = LY#) 1.46 x10 3/uL 1.1-2.7 N MONOCYTE # (test code = MO#) 0.5 x10 3/uL 0.3-0.8 N EOSINOPHIL # (test code = EO#) 0.1 x10 3/uL 0.0-0.5 N IMMATURE GRANULOCYTE % (test 0.3 % 0.0-2.0 N code = IG%) BASOPHIL # (test code = BA#) 0.0 x10 3/uL 0.0-0.1 N [id number] 05:34:00 Test Item Value Reference Range Interpretation Comments PHOSPHOROUS (test code = PHOS) 2.1 mg/dl 2.5-4.6 L [id number] 05:34:00 Test Item Value Reference Range Interpretation Comments MAGNESIUM (test code = MAG) 1.9 mg/dl 1.8-2.5 N ARTERIAL BLOOD [id number] 05:23:00 Test Item Value Reference Range Interpretation Comments ARTERIAL BLOOD GAS PH 7.459 7.350-7.450 H (test code = PHA) ARTERIAL BLOOD GAS 30.6 mmHg 35-45 L PCO2 (test code = PCO2A) ARTERIAL BLOOD GAS 134.6 mmHg 75-100 H PO2 (test code = PO2A) BICARBONATE TOTAL 21.2 mmol/L 22-26 L HCO3 (test code = HCO3) BASE EXCESS (test -1.6 mmol/L See_Comment N [Automate d message] code = MARY) The system [employer] generated this result transmit may reference range : (+/-)2.0. The reference range was not used to interpret this result as normal/abnormal . ABG O2 SATURATION 98.3 % 95.0-100.0 N (test code = SATA) ABG TYPE (test code = Arterial TYPEA) ARTERIAL FIO2 (test 35.0 % code = FIO2A) ABG VENT MODE (test PRVC code = MODEA) ABG VENT RESP RATE 16 /MIN (test code = RRA) ABG TIDAL VOLUME 450.0 ML (test code = TIDAL VOLUME) ABG PEEP (test code = 5.0 cmH2O PEEP) ABG SITE (test code = Right Radial SITEA) ALLENS TEST (test Yes code = ALLENS) TOTAL HGB (test code 13.3 g/dL 12.0-18.0 N = THB) [id number] 16:35:00 Test Item Value Reference Range Interpretation Comments GLUBED (test code = GLUBED) 71 MG/DL 70-105 N [id number] 12:07:00 Test Item Value Reference Range Interpretation Comments GLUBED (test code = GLUBED) 148 MG/DL 70-105 H [id number] 11:42:00 Test Item Value Reference Range Interpretation Comments GLUBED (test code = GLUBED) 59 MG/DL 70-105 L COVID 19 INHOUSE [id number] 10:50:00 Test Item Value Reference Range Interpretation Comments COVID 19 INHOUSE AG NEGATIVE Negative Negative results should be (test code = treated as pres umptive [id number]) andconfirmed wi th a molecular assay , if necessary for patientmanageme nt. Negative result s do not rule out COVID- 19 andshould not b e used as the sole basis for treatment orpat ient management deci sions, including infec tion controldecision s. Negative results should be considered in t hecontext of a patient's recent exposures, hist ory and thepresence of clnical signs and sympt oms consistent withCOVID-19.Sp ecimen Source: Nasopha ryngeal (ELECTRIC RAZOR MECHANIC) Swab COAGULATION TIME [id number] 08:14:00 Test Item Value Reference Range Interpretation Comments COAGULATION TIME ACTIVATED (test 159 SECONDS 91-151 H code = ACT) - XR ABDOMEN [id number] 07:53:00 [facility] : 1975 Sex: FPatient Name: JERI VILLALOBOS Unit No: [id number] EXAMS: CPT: [id number] XR ABDOMEN 1V [id number] COMPARISON: None available CLINICAL HISTORY: OG TUBE PLACEMENT RADIOGRAPHS: 2 views abdomen for OG tube FINDINGS: The enteric tube is in the distal stomach. No dilated small bowel loops are seen. There is contrastin the urinary bladder. There is no radiopaque foreign body or soft tissue gas. There is no osseous e rosion. IMPRESSION: Enteric tube is in the distal stomach. at 0753 Reported and signed by: Cynthia Scott MD CC: Love Kumar MD; Tejas Zapata Technologist: Magali Deleon Time: DAP (Gy m2): Air Kerma (mGy): Trscr Dt/Tm: 02/10/2022 (0753) by:[email or web address] Orig Print D/T: S: 02/10/2022 (0756) BATCH NO: N/A Name: JERI VILLALOBOS [facility] Phys: SANTejas Butt [address] : 1975 Age: 46 [place] [address] Loc: N.2051 1 Exam Date: 02/10/2022 Status: ADM IN PH: FAX: PAGE 1 Signed Report- XR CHEST 1 [id number] 07:41:00 [facility] : 1975 Sex: FPatient Name: JERI VILLALOBOS Unit No: [id number] EXAMS: CPT: [id number] XR CHEST 1 V 84759 AP CHEST 1 VIEW COMPARISON: February 09, 2022 HISTORY: intubation , infiltrates FINDINGS: ET tube is 3.7 cm above the ketty. NG tube is below the diaphragm. Airspace disease throughout the left mid to lower lobe is again seen, unchanged. Smaller infiltrates in the right side were better seen on recent CT. There is no visible gross pneumothorax. The bones are stable. The heart is stable. IMPRESSION: 1. ET tube is above the ketty. 2. Multifocal airspace disease is again visible. at 0741 Reported and signed by: Cynthia Scott MD CC: Manuel Rose DO; Billy Wu NP Technologist: Virgilio Deleon Time: DAP (Gy m2): Air Kerma (mGy): Trscr Dt/Tm: 02/10/2022 (0741) by:[email or web address] Orig Print D/T: S: 02/10/2022 (0744) BATCH NO: N/A Name: JERI VILLALOBOS [facility] Phys: WHAnisa Gillis NP [address] : 1975 Age: 46 Sex: F [place] [address] Loc: N.2050 09 Exam Date: 02/10/2022 Status: ADM IN PH: FAX: PAGE 1 Signed [id number] 07:14:00 Test Item Value Reference Range Interpretation Comments PHOSPHOROUS (test code = PHOS) 2.3 mg/dl 2.5-4.6 L [id number] 07:14:00 Test Item Value Reference Range Interpretation Comments MAGNESIUM (test code = MAG) 1.8 mg/dl 1.8-2.5 N CALCIUM [id number] 06:51:00 Test Item Value Reference Range Interpretation Comments CALCIUM IONIZED (test code = WESLY) 1.11 mmol/L 1.13-1.32 L COMPREHENSIVE METABOLIC [id number] 06:02:00 Test Item Value Reference Range Interpretation Comments SODIUM (test code = 135 mmol/L 135-145 N NA) POTASSIUM (test 4.0 mmol/L 3.6-5.0 N code = K) CHLORIDE (test code 107 mmol/L 101-111 N = CL) CARBON DIOXIDE 18 mmol/L 21-31 L (test code = CO2) GLUCOSE (test code 94 mg/dl 70-100 N = GLU) BLOOD UREA NITROGEN 15 mg/dl 6-20 N (test code = BUN) GLOMERULAR >=60 max >60 The estimated FILTRATION RATE estimate glomerular (test code = GFR) filtration rate is computed usingpatient ra ce, age (>18), sex, and serum creatinin e. If anyof the ne eded data elements a re missing the Laboratory jarvis ot compute an estimation of t he glomerular filtration rate . CREATININE (test 0.89 mg/dL 0.44-1.03 N code = CREAT) TOTAL PROTEIN (test 5.7 g/dL 6.7-8.2 L code = PROT) ALBUMIN (test code 3.0 g/dL 3.2-5.5 L = ALB) CALCIUM (test code 8.3 mg/dL 8.5-10.5 L = CA) BILIRUBIN TOTAL 2.20 mg/dL 0.2-1.3 H (test code = BILT) SGOT/AST (test code 47 U/L 10-42 H = AST) SGPT/ALT (test code 45 U/L 10-60 N = ALT) ALKALINE 55 U/L 42-121 N PHOSPHATASE (test code = ALKP) ARTERIAL BLOOD [id number] 05:43:00 Test Item Value Reference Range Interpretation Comments ARTERIAL BLOOD GAS PH 7.493 7.350-7.450 H (test code = PHA) ARTERIAL BLOOD GAS 25.9 mmHg 35-45 L PCO2 (test code = PCO2A) ARTERIAL BLOOD GAS 214.5 mmHg 75-100 H PO2 (test code = PO2A) BICARBONATE TOTAL 19.4 mmol/L 22-26 L HCO3 (test code = HCO3) BASE EXCESS (test -2.5 mmol/L See_Comment L [Automate d message] code = MARY) The system [employer] generated this result transmitted ref erence range: (+/-)2.0 . The reference range was not used to int erpret this result as normal/abnormal . ABG O2 SATURATION 98.9 % 95.0-100.0 N (test code = SATA) ABG TYPE (test code = Arterial TYPEA) ARTERIAL FIO2 (test 40.0 % code = FIO2A) ABG VENT MODE (test PRVC code = MODEA) ABG VENT RESP RATE 20 /MIN (test code = RRA) ABG TIDAL VOLUME 450.0 ML (test code = TIDAL VOLUME) ABG PEEP (test code = 5.0 cmH2O PEEP) ABG SITE (test code = Left Radial SITEA) ALLENS TEST (test Yes code = ALLENS) TOTAL HGB (test code 12.6 g/dL 12.0-18.0 N = THB) CBC W/AUTO [id number] 05:06:00 Test Item Value Reference Range Interpretation Comments WHITE BLOOD CELL (test code = 10.2 x10 3/uL 3.2-11.5 WBC) RED BLOOD CELL (test code = 4.40 x10(6)/m 3.70-5.10 N RBC) HEMOGLOBIN (test code = HGB) 12.6 g/dL 12.0-15.0 HEMATOCRIT (test code = HCT) 37.3 % 35.7-44.8 N MEAN CELL VOLUME (test code = 85 fL 80-100 N MCV) MEAN CELL HGB (test code = MCH) 28.6 pg 26.2-33.8 N MEAN CELL HGB CONCENTRATION 33.8 g/dL 30.0-34.0 N (test code = MCHC) RED CELL DISTRIBUTION WIDTH 12.5 % 11.3-14.5 N (test code = RDW) PLATELET COUNT (test code = 240 x10 3/uL 130-408 N PLT) MEAN PLATELET VOLUME (test code 9.4 fL 8.6-12.6 N = MPV) NEUTROPHIL % (test code = NT%) 72.6 % 40.0-70.0 H IMMATURE GRANULOCYTE % (test 0.3 % 0.0-2.0 N code = IG%) LYMPHOCYTE % (test code = LY%) 20.5 % 20-40 N MONOCYTE % (test code = MO%) 5.8 % 1-10 N EOSINOPHIL % (test code = EO%) 0.4 % 0.0-5.0 N BASOPHIL % (test code = BA%) 0.4 % 0.0-1.0 N NUCLEATED RBC % (test code = 0.0 % 0.0-0.9 N NRBC%) NEUTROPHIL # (test code = NT#) 7.4 x10 3/uL 1.6-7.2 H LYMPHOCYTE # (test code = LY#) 2.09 x10 3/uL 1.1-2.7 N MONOCYTE # (test code = MO#) 0.6 x10 3/uL 0.3-0.8 N EOSINOPHIL # (test code = EO#) 0.0 x10 3/uL 0.0-0.5 N BASOPHIL # (test code = BA#) 0.0 x10 3/uL 0.0-0.1 N DRUGS OF ABUSE SCREEN [id number] 19:54:00 Test Item Value Reference Range Interpretation Comments UR COCAINE (test code NEGATIVE NEGATIVE This i s a toxicology = COCAU) qualitative scr eening test only, whic hmay detect parent c ompound or metabolite or relatedsubstanc e. If confirmatory te sting is desired, please request drug screen con firmation. These results a re unconfirmed and should be used only for m edical purposes.Unconf irmed screening resul ts must not be used fornon-medical purposes (ex-employment testing). Cut-off concent ration for Cocaine is 300 ng/mLRecommende d screening cut-o ff concentrations by [facility] and [facility]. UR CANABINOIDS (test POSITIVE NEGATIVE A This is a toxicology code = CANU) qualitative scr eening test only which may detect parent compound or metabolite or relatedsubstanc e. If confirmatory te sting is desired, please request drug screen con firmation. These results areunconfirmed and should be used only fo r medical purposes.Unconf irmed screening resul ts must not be used fornon-medical purposes (ex-employment testing). Cut-off concent ration for THC is 50 ng/mLRecommende d screening cut-o ff concentrations by thebstance Ab use and [facility]. UR AMPHETAMINE (test POSITIVE NEGATIVE A The ing estion of natural code = AMPHU) herbal and carlo nt productscontain ing Ephedra/Ephedra -Metabolit es can produce in urineone or mor e substances capa ble of cross-reacting withAmphetamine /Methamphe tamine immunoas says. This testprovides a preliminary res ult only. A more specificalterna tive chemical method must be used to obtain aconfirmed analytical resu lt. This is a toxicology qualitative scr eening test only which may detect parent compound or metabolite or relatedsubstanc e. If confirmatory te sting is desired, please request drug screen con firmation. These results areunconfirmed and should be used only fo r medical purposes.Unconf irmed screening resul ts must not be used fornon-medical purposes (ex-employment testing). Cut-off concent ration for Amphetamines is 1000 ng/mLRecommende d screening cut-o ff concentrations by [facility] and [facility]. UR BARBITURATE (test NEGATIVE NEGATIVE This is a toxicology code = BARBQLU) qualitative screening test only which may detect parent compound or metabolite or relatedsubstanc e. If confirmatory te sting is desired, please request drug screen con firmation. These results areunconfirmed and should be used only fo r medical purposes.Unconf irmed screening resul ts must not be used fornon-medical purposes (ex-employment testing). Cut-off concent ration for Barbiturates is 200 ng/mLRecommende d screening cut-o ff concentrations by [facility] use and [facility]. UR BENZODIAZEPINE NEGATIVE NEGATIVE This is a toxicology (test code = BENZU) qualitat pablo screening test only which may detect parent compound or metabolite or relatedsubstanc e. If confirmatory te sting is desired, please request drug screen con firmation. These results areunconfirmed and should be used only fo r medical purposes.Unconf irmed screening resul ts must not be used fornon-medical purposes (ex-employment testing). Cut-off concent ration for Benzodiazepines is 200 ng/mLRecommende d screening cut-o ff concentrations by thebstance Ab use and [facility]. UR OPIATES QUAL (test NEGATIVE NEGATIVE This i s a toxicology code = OPIAQLU) qualitative screening test only which may detect parent compound or metabolite or relatedsubstanc e. If confirmatory te sting is desired, please request drug screen con firmation. These results areunconfirmed and should be used only fo r medical purposes.Unconf irmed screening resul ts must not be used fornon-medical purposes (ex-employment testing). Cut-off concent ration for Opiates is 300 ng/mLRecommende d screening cut-o ff concentrations by [facility] use and [facility]. UR PHENCYCLIDINE NEGATIVE NEGATIVE This is a t oxicology (PCP) (test code = qualitati ve screening PHENCU) test only which may detect parent compound or metabolite or relatedsubstanc e. If confirmatory te sting is desired, please request drug screen con firmation. These results areunconfirmed and should be used only fo r medical purposes.Unconf irmed screening resul ts must not be used fornon-medical purposes (ex-employment testing). Cut-off concent ration for PCP is 25 ng/mLRecommende d screening cut-o ff concentrations by [facility] use and [facility]. URINALYSIS [id number] 19:43:00 Test Item Value Reference Range Interpretation Comments UA COLOR (test code = YELLOW YELLOW COLU) UA APPEARANCE (test Clear CLEAR code = APPU) UA GLUCOSE DIPSTICK NEGATIVE NEGATIVE (test code = DGLUU) UA BILIRUBIN DIPSTICK NEGATIVE NEGATIVE (test code = BILU) UA KETONE DIPSTICK 1+ NEGATIVE A (test code = KETU) UA SPECIFIC GRAVITY 1.044 1.001-1.030 (test code = SGU) UA BLOOD DIPSTICK (test NEGATIVE NEGATIVE code = KITA) UA PH DIPSTICK (test 6.0 5.0-9.0 code = RICHARD) UA PROTEIN DIPSTICK NEGATIVE NEGATIVE (test code = PROU) UA UROBILINOGEN NEGATIVE See_Comment [Automated message] DIPSTICK (test code = The sy stem which URO) generated this result transmitted ref erence range: <=1.0. T he reference range was not used to int erpret this result as normal/abnormal . UA NITRITE DIPSTICK NEGATIVE NEGATIVE (test code = SRIDHAR) UA ASCORBIC ACID NEGATIVE DIPSTICK (test code = AAU) UA LEUKOCYTE ESTERASE NEGATIVE NEGATIVE DIPSTICK (test code = LEUU) UA WBC (test code = 0-5 /HPF 0-5 WBCU) UA RBC (test code = 0-5 /HPF 0-5 RBCU) UA EPITHELIAL CELLS None /LPF NONE-FEW (test code = EPIU) UA BACTERIA (test code 1+ /HPF NONE SEEN A = BACU) UA MUCUS (test code = 1+ /LPF NONE SEEN MUCU) [id number] 17:19:00 Test Item Value Reference Range Interpretation Comments GLUBED (test code = GLUBED) 95 MG/DL 70-105 N ARTERIAL BLOOD [id number] 16:39:00 Test Item Value Reference Range Interpretation Comments ARTERIAL BLOOD GAS PH 7.422 7.350-7.450 N (test code = PHA) ARTERIAL BLOOD GAS 33.2 mmHg 35-45 L PCO2 (test code = PCO2A) ARTERIAL BLOOD GAS 256.2 mmHg 75-100 H PO2 (test code = PO2A) BICARBONATE TOTAL 21.1 mmol/L 22-26 L HCO3 (test code = HCO3) BASE EXCESS (test -2.5 mmol/L See_Comment L [Automate d message] code = MARY) The system ic h generated this result transmit may reference range : (+/-)2.0. The reference range was not used to interpret this result as normal/abnormal . ABG O2 SATURATION 99.1 % 95.0-100.0 N (test code = SATA) ABG TYPE (test code = Arterial TYPEA) ARTERIAL FIO2 (test 60.0 % code = FIO2A) ABG VENT MODE (test PRVC code = MODEA) ABG VENT RESP RATE 20 /MIN (test code = RRA) ABG TIDAL VOLUME 450.0 ML (test code = TIDAL VOLUME) ABG PEEP (test code = 5.0 cmH2O PEEP) ABG SITE (test code = Right Radial SITEA) ALLENS TEST (test Yes code = ALLENS) TOTAL HGB (test code 13.8 g/dL 12.0-18.0 N = THB) - XR CHEST 1 [id number] 14:10:00 [facility] 1975 Sex: FPatient Name: JERI VILLALOBOS Unit No: [id number] EXAMS: CPT: [id number] XR CHEST 1 V 75362 XR CHEST 1 VIEW HISTORY: ETT PLACEMENT COMPARISON: 02/09/2022. FINDINGS: ET tube tip is approximately 3.5 cm from the ketty. NG tube tip courses below the diaphragm with the tip excluded from view. Cardiac silhouette is magnified by projection. Dense airspace consolidation is seen in the left lung and to a lesser degree in the right lung. There is vascular prominence. No large effusion seen. No pneumothorax. IMPRESSION: 1. Dense airspace consolidation particularly in the left lung similar to earlier study. 2. ETand NG tubes as described above. at 1410 Reported and signed by: Anni Haas MD CC: Love Kumar MD; Manuel Rose DO Technologist: Bronson Deleon Time: DAP (Gy m2): Air Kerma (mGy): Trscr Dt/Tm: 02/09/2022 (1410) by:[email or web address] Orig Print D/T: S: 02/09/2022 (0610) BATCH NO: N/A Name: JERI VILLALOBOS [facility] Phys: [email or web address] - Love Kumar V [address] : 1975 Age: 46 Sex: F [place], [place] [address] Loc: N.2051 1 Exam Date: 02/09/2022 Status: ADM IN PH: FAX: PAGE 1 Signed Report- CT C-SPINE W/O [id number] 13:29:00 [facility] 1975 Sex: FPatient Name: JERI VILLALOBOS Unit No: [id number] EXAMS: CPT: [id number] CT C-SPINE W/O CONT 07205 CT CERVICAL SPINE Multiplanar imaging of the cervical spine was performed without contrast. Radiation dose optimization was achieved by protocols in accordance with standard of practice, department policies and special events manager's recommendations with one or more of the following: Automated exposure control, adjustment of KVP and MAS by age and weight, iterative reconstruction technique. DLP: 277 mGy/cm HISTORY PROVIDED: Altered mental status overdose COMPARISON: No previous cervical spine imaging available forreview FINDINGS: Craniocervical junction: The foramen magnum is widely patent. The cerebellar tonsils are in normal position. The C1-C2 relationship is normal. C2-C3: There is mild disc bulging. There is mild bilateral facet arthrosis. There is no spinal or foraminal stenosis. C3-C4: There is mild disc bulging. There is advanced left- sided facet arthrosis with left foraminal narrowing. There is mildright facet arthrosis. Right foramen is satisfactorily patent. Central canal is satisfactorily patent. C4-C5: There is disc bulging and slight anterolisthesis with mild central canal narrowing. There is severe hypertrophic right facet arthrosis with right foraminal narrowing. There is mild left facet arthrosis. Left foramen is nicely patent. C5-C6: There is advanced disc degeneration with spondylosis. Disc osteophyte complex posteriorly encroaches upon the central canal and neuroforamina. There is no significant facet arthrosis. C6-C7: There is disc degeneration with spondylosis. There is disc bulging encroaching upon the central canal. There is no significant facet arthrosis. The neuroforamina are satisfactorily patent. Negative for acute abnormality. C7-T1: The disc is normal in size and configuration. There is no disc herniation or bulge. Facets demonstrate no significant arthrosis. There isno spinal or foraminal stenosis. There is no fracture. CONCLUSION: Multilevel disc degeneration and spondylosis. Name: FABI,JERI [facility] Phys: Ruiz Wolfe MD [address] [facility] : 1975 Age: 46 Sex: F [place] [address] Loc: N.2050 09 Exam Date: 02/09/2022 Status: ADM IN PH: FAX: PAGE 1 Signed Report (CONTINUED) Patient Name: JERI VILLALOBOS Unit No: [id number] EXAMS: CPT: [id number] CT C-SPINE W/O CONT 83748 (Continued) Multilevel facet arthrosis. at 1329 Reported and signed by: Derick Norton MD CC: Ruiz Vaughn MD; Manuel Rose DO Technologist: Sarah Perez CTDI: 13.02 DLP: 277.12 Trscr Dt/Tm: 02/09/2022 (1329) by:Cheri Smith Print D/T: S: 02/09/2022 (9502) BATCH NO: N/A Name: JERI VILLALOBOS [facility] Phys: Ruiz Wolfe MD [address] [facility] : 1975 Age: 46 Sex: F [place] [address] Loc: N.2050 09 Exam Date: 02/09/2022 Status: ADM IN PH: FAX: PAGE 2 Signed Report- CTA CHEST FOR [id number] 13:24:00 [facility] : 1975 Sex: FPatient Name: JERI VILLALOBOS Unit No: [id number] EXAMS: CPT: [id number] [place] [address] CTA CHESTWITH CONTRAST: INDICATIONS:Pulmonary embolism. COMPARISON: None available TECHNIQUE: Axial CT chest with IV contrast was performed. Coronal and sagittal reformats reconstructed. Bolus tracking series followed by contrast- enhanced CT. Data set analyzed on a 3-D workstation with image post processing. CT radiation dose optimization is achieved for this examination by the use of a CT protocol in accordance with ACR practice standards and adherence to special events manager's recommendations. Contrast: 100cc Isovue-300. Total DPL: 1497.94mGy*cm. FINDINGS: Breast implants. A 1 cm right supraclavicular lymph node.The visualized central airway is unremarkable. No hilar or mediastinal lymphadenopathy. Cardiac sizeis normal. No coronary calcifications. Large groundglass opacities and infiltrates in the left upperlobe and lingula lobe. A lesser extent of groundglass opacities and infiltrates in the right upper and middle lobe. Bibasilar atelectasis. No large pleural effusion. The thoracic aorta is of normal caliber without dissection or aneurysm. The pulmonary artery are opacified and no pulmonary emboli seen. IMPRESSION: Large groundglass opacities and infiltrates in the left upper lobe and lingula lobe. A lesser extent of groundglass opacities and infiltrates in the right upper and middle lobe. Findings degenerative of a multifocal pneumonia. No pulmonary emboli seen. at 1324 Reported and signed by: Jalen Black MD Name: JERI VILLALOBOS [facility] Phys: Ruiz Wolfe MD [address] [facility] : 1975 Age: 46 Sex: F [place], [place] [address] Loc: N.2050 1 Exam Date: 02/09/2022 Status: ADM IN PH: FAX: PAGE 1 Signed Report (CONTINUED) Patient Name: JERI VILLALOBOS Unit No: [id number] EXAMS: CPT: [id number] [place] [address] (Continued) CC: Ruiz Vaughn MD; Manuel Rose DO Technologist: Sarah Perez CTDI: 07.31 DLP: 398.57 Trscr Dt/Tm: 02/09/2022 (1324) by:[email or web address] Orig Print D/T: S: 02/09/2022 (1327) BATCH NO: N/A Name: JERI VILLALOBOS [facility] Phys: Ruiz Wolfe MD [address] [facility] : 1975 Age: 46 Sex: F [place] [address] Loc: N.2050 1 Exam Date: 02/09/2022 Status: ADM IN PH: FAX: PAGE 2 Signed Report- CT HEAD/BRAIN W/O [id number] 13:17:00 [facility] : 1975 Sex: FPatient Name: JERI VILLALOBOS Unit No: [id number] EXAMS: CPT: [id number] CT HEAD/BRAIN W/O CONT 85528 CT HEAD Multiplanar imaging was performed without contrast. Radiation dose optimization was achieved by protocols in accordance with standard of practice, department policies and special events manager's recommendations with one or more of the following: Automated exposure control, adjustment of KVP and MAS by age and weight, iterative reconstruction technique. DLP: 736 mGy/cm HISTORY PROVIDED: Overdose altered mental status COMPARISON: No previous brain imaging. FINDINGS: The brain and the ventricles and the subarachnoid spaces appear normal for age. There is no suspicion of recent or previous ischemic infarction or recent or previous intracranial hemorrhage. There is no intracranial mass or pathologic extra-axial fluid collection. The ventricles are normal in size. There is no hydrocephalus or ventricular compression or midline shift. The pineal gland and pituitary gland appear normal and the regional basalcisterns are clear. The 4th ventricle is midline and the cerebellar tonsils are in normal position. The paranasal sinuses and mastoid air cells do not show any significant mucosal thickening or fluid. CONCLUSION: Negative for acute intracranial abnormality Thank you for allowing me to participate in the care of your patient. Derick Norton MD Neuroradiology at 1317 Reported and signed by: Derick Norton MD Name: JERI VILLALOBOS [facility] Phys: Ruiz Wolfe MD [address] : 1975 Age: 46 Sex: F [place] [address] Loc: N.2050 1 Exam Date: 02/09/2022 Status: ADM IN PH: FAX: PAGE 1 Signed Report (CONTINUED) Patient Name: JERI VILLALOBOS Unit No: [id number] EXAMS: CPT: [id number] CT HEAD/BRAIN W/O CONT 61476 (Continued) CC: Ruiz Vaughn MD; Manuel Rose DO Technologist: Nick. CTDI: 45.45 DLP: 736.2 Trscr Dt/Tm: 02/09/2022 (1317) by:Cheri Orig Print D/T: S: 02/09/2022 (1320) BATCH NO: N/A Name: JERI VILLALOBOS [facility] Phys: Ruiz Wolfe MD [address] : 1975 Age: 46 Sex: F [place], [place] [address] Loc: N.1 1 ExamDate: 02/09/2022 Status: ADM IN PH: FAX: PAGE 2 Signed ReportLACTIC [id number] 11:06:00 Test Item Value Reference Range Interpretation Comments LACTIC ACID (test code = LACT) 1.6 mmol/L 0.5-2.0 N ARTERIAL BLOOD [id number] 09:33:00 Test Item Value Reference Range Interpretation Comments ARTERIAL BLOOD GAS 7.352 7.350-7.450 N PH (test code = PHA) ARTERIAL BLOOD GAS 33.9 mmHg 35-45 L PCO2 (test code = PCO2A) ARTERIAL BLOOD GAS 58.5 mmHg 75-100 L PO2 (test code = PO2A) BICARBONATE TOTAL 18.4 mmol/L 22-26 L HCO3 (test code = HCO3) BASE EXCESS (test -6.2 mmol/L See_Comment L [Automate d code = MARY) message] The [employer] stem which generated this result transmitted reference range : (+/-)2.0. The reference range was not used to interpret this result as normal/abnormal . ABG O2 SATURATION 89.5 % 95.0-100.0 L (test code = SATA) ABG TYPE (test code Arterial = TYPEA) ARTERIAL FIO2 (test 100.0 % code = FIO2A) ABG L/M (test code = 15.00 L/MIN L/M) ABG VENT MODE (test Non-Rebreather code = MODEA) ABG SITE (test code Left Radial = SITEA) ALLENS TEST (test Yes code = ALLENS) TOTAL HGB (test code 14.2 g/dL 12.0-18.0 N = THB) CBC W/AUTO [id number] 07:34:00 Test Item Value Reference Range Interpretation Comments WHITE BLOOD CELL (test code = 24.4 x10 3/uL 3.2-11.5 H WBC) RED BLOOD CELL (test code = 4.98 x10(6)/m 3.70-5.10 N RBC) HEMOGLOBIN (test code = HGB) 14.4 g/dL 12.0-15.0 N HEMATOCRIT (test code = HCT) 42.9 % 35.7-44.8 N MEAN CELL VOLUME (test code = 86 fL 80-100 N MCV) MEAN CELL HGB (test code = MCH) 28.9 pg 26.2-33.8 N MEAN CELL HGB CONCENTRATION 33.6 g/dL 30.0-34.0 N (test code = MCHC) RED CELL DISTRIBUTION WIDTH 12.3 % 11.3-14.5 N (test code = RDW) PLATELET COUNT (test code = 273 x10 3/uL 130-408 N PLT) MEAN PLATELET VOLUME (test code 8.8 fL 8.6-12.6 N = MPV) WBC [id number] 07:34:00 Test Item Value Reference Range Interpretation Comments TOTAL CELLS COUNTED (test code 200 #CELLS = TCC) RBC MORPHOLOGY COMMENT (test Normal NORMAL code = MOC) PLATELET MORPHOLOGY (test code Normal NORMAL = PLTMORPH) SEGMENTED NEUTROPHILS (test 90 % 43-65 H code = SEG) BAND NEUTROPHIL (test code = 2 % 0-1 H BAND) LYMPHOCYTE (test code = LYMPH) 3 % 20.5-45.5 L MONOCYTE (test code = MON) 6 % 5.5-11.7 N BAND ABSOLUTE (test code = 0.49 10 3/uL 0.00-0.70 N BAND#) NEUTROPHIL ABSOLUTE (test code 21.96 10 3/uL 1.6-7.2 H = SEG#) LYMPH ABSOLUTE (test code = 0.7 10 3/uL 1.1-4.8 L LYMPH#) ATYPICAL LYMPH ABSOLUTE (test 0.00 10 3/uL 0.00-0.00 N code = ALYMPH#) MONOCYTE ABSOLUTE (test code = 1.46 10 3/uL 0.3-0.8 H MON#) BASOPHIL ABSOLUTE (test code = 0.00 10 3/uL 0.00-0.1 N BASO#) EOSINOPHIL ABSOLUTE (test code 0.00 10 3/uL 0.00-0.50 N = EOS#) METAMYELOCYTE ABSOLUTE (test 0.00 10 3/uL 0.00-0.00 N code = META#) MYELOCYTE ABSOLUTE (test code = 0.00 10 3/uL 0.00-0.00 N MYELO#) PROMYELOCYTE ABSOLUTE (test 0.00 10 3/uL 0.00-0.00 N code = PROM#) BLASTS ABSOLUTE (test code = 0.00 10 3/uL 0.00-0.00 N BLAST#) OTHER CELLS ABSOLUTE (test code 0.00 10 3/uL 0.00-0.00 N = OCT#) COMPREHENSIVE METABOLIC [id number] 06:52:00 Test Item Value Reference Range Interpretation Comments SODIUM (test code = 135 mmol/L 135-145 N NA) POTASSIUM (test 4.0 mmol/L 3.6-5.0 N code = K) CHLORIDE (test code 102 mmol/L 101-111 N = CL) CARBON DIOXIDE 25 mmol/L 21-31 N (test code = CO2) GLUCOSE (test code 172 mg/dl 70-100 H = GLU) BLOOD UREA NITROGEN 15 mg/dl 6-20 N (test code = BUN) GLOMERULAR >=60 max >60 The estimated FILTRATION RATE estimate glomerular (test code = GFR) filtration rate is computed usingpatient ra ce, age (>18), sex, and serum creatinin e. If anyof the ne eded data elements a re missing the Laboratory jarvis ot compute an estimation of t he glomerular filtration rate . CREATININE (test 0.86 mg/dL 0.44-1.03 N code = CREAT) TOTAL PROTEIN (test 7.1 g/dL 6.7-8.2 N code = PROT) ALBUMIN (test code 3.6 g/dL 3.2-5.5 N = ALB) CALCIUM (test code 8.7 mg/dL 8.5-10.5 N = CA) BILIRUBIN TOTAL 0.80 mg/dL 0.2-1.3 N (test code = BILT) SGOT/AST (test code 51 U/L 10-42 H = AST) SGPT/ALT (test code 65 U/L 10-60 H = ALT) ALKALINE 66 U/L 42-121 N PHOSPHATASE (test code = ALKP) [id number] 05:45:00 Test Item Value Reference Range Interpretation Comments GLUBED (test code = GLUBED) 150 MG/DL 70-105 H - XR CHEST 1 [id number] 03:56:00 [facility] 1975 Sex: FPatient Name: JERI VILLALOBOS Unit No: [id number] EXAMS: CPT: [id number] XR CHEST 1 V 28547 CHEST 1 VIEW CLINICAL HISTORY: Shortness of breath COMPARISON: None. A single frontal view of the chest is submitted. FINDINGS: The cardiac silhouette is normal in size. Vascularity appears normal. There are diffusehazy infiltrates in the left lung and mild infiltrates in the right lung base consistent with pneumonia. No pleural effusion or pneumothorax is seen. No osseous abnormalities are seen. IMPRESSION: Bilateral infiltrates consistent with pneumonia. at 0356 Reported and signed by: Shelton Dumont MD CC: Chris Hayes MD Technologist: Marshall Deleon Time: DAP (Gy m2): Air Kerma (mGy): Trscr Dt/Tm: 02/09/2022 (0356) by:[email or web address] Orig PrintD/T: S: 02/09/2022 (0400) BATCH NO: N/A Name: JERI VILLALOBOS [facility] Phys: Chris Blas MD [address] [place] : 1975 Age: 46 Sex: F [place] [address] Loc: N.ERS Exam Date: 02/09/2022 Status: REG ER PH: FAX: PAGE 1 Signed Report
[2022-06-08 16:55] LABS: Absolute Lymphocytes (CBC) 5.7 K/uL (0.7-4.9); Hematocrit 38.7 % (36.0-45.0); Lymphocytes % 24.3 % (15.3-44.8); MCV 84.1 fL (80-100); MPV 7.9 fL (7.6-11.3)
[2022-06-08] MEDS ORDERED: ACETAMINOPHEN 325 MG/SUPP PR ONE (16:57)
[2022-06-08] MEDS ORDERED: NA CHLORIDE 0.9% 2,000 ML ONE (16:57)
[2022-06-08 17:04] LABS: Protime INR 1.1
[2022-06-08 17:07] LABS: Urine Blood Negative (Negative); Urine Glucose Negative (Negative); Urine Protein 2+ (Negative)
[2022-06-08 17:12] LABS: Albumin 3.5 g/dL (3.4-5.0); Bilirubin Total 0.2 mg/dL (0.2-1.0); Potassium 4.9 mmol/L (3.5-5.1); Protein, Total 9.1 g/dL (6.4-8.2)
[2022-06-08] MEDS ORDERED: LORazepam 2 MG/ML VIAL ONE (17:25)
--- NOTE | 2022-06-08 17:33 | RAD REPORT ---
EXAM DESCRIPTION: RAD - Chest Single View - 06/08/2022 5:16 pm CLINICAL HISTORY: FEVER COMPARISON: Chest Single View dated 05/30/2022; Chest Single View dated 05/25/2022; Chest Single View d ated 05/19/2022; Chest Single View dated 05/14/2022; Thorax Wo Con dated 05/26/2022 FINDINGS: Lines: Tracheostomy. Lungs: Residual opacities at the left lung base. Relative opacification of the lung bases likely ecce ntrically due in part to the patient's breast prostheses. Pleural: No significant pleural effusions or pneumothorax. Cardiac: The heart size is within normal limits. Mediastinum: Within normal limits. Bones: No acute fractures. Other: None IMPRESSION: Mild retrocardiac consolidation is similar to 05/25/2022. No definite new process identi fied. The breast prostheses positioning simulates basilar airspace disease.
[2022-06-08] MEDS ORDERED: CEFEPIME 1 GM/VIAL ONE (17:40)
[2022-06-08] MEDS ORDERED: WATER FOR INJ,STERILE 20 ML ONE (17:43)
[2022-06-08] MEDS ORDERED: NA CHLORIDE 0.9% 250 ML ONE (17:43)
[2022-06-08] MEDS ORDERED: VANCOMYCIN 1 GM/VIAL ONE (17:43)
[2022-06-08] MEDS ORDERED: NA CHLORIDE 0.9% 100 ML ONE (17:48)
[2022-06-08 17:49] LABS: Urine Bacteria <20 /HPF (<20); Urine Crystals Unidentified Few /HPF (None Seen); Urine Mucus 4+ /HPF (None Seen); Urine WBC Clump Few /HPF (None Seen)
--- NOTE | 2022-06-08 18:07 | ER ---
Nurse's Notes [facility] Name: Angelique Villalobos Age: 46 yrs Sex: Female : 1975 Arrival Date: 06/08/2022 Time: 16:28 Bed 8 Private MD: Diagnosis: Severe sepsis with septic shock;Fever, unspecified Presentation: 06/08 16:26 Chief complaint: EMS states: pt from [facility]. called us for difficulty breathing. tw2 when we got there she was diaphoretic, tachypneic, hr in 200's, we gave total of 24 mg Adenosine, noticed slight change in HR, then it went right back up. we got 103.4 ax temp, we gave 1L NS, was 95% upon arrival. multiple unsuccessful attempt at iv, established IO to LEFT upper arm. Coronavirus screen: At this time, the client does not indicate any symptoms associated with coronavirus-19. Ebola Screen: Patient denies travel to an Ebola-affected area in the 21 days before illness onset. Initial Sepsis Screen: Does the patient meet any 2 criteria? RR > 20 per min. Temp <36.0*C (96.8*F)) or > 38.3*C (100.9*F). HR > 90 bpm. Yes Does the patient have a suspected source of infection? Yes: Productive cough/pneumonia. Risk Assessment: Do you want to hurt yourself or someone else? Patient reports no desire to harm self or others. Onset of symptoms was June 08, 2022. 16:26 Method Of Arrival: EMS: [facility] tw2 16:29 Note provider at bedside at this time. and RT at bedside. tw2 16:29 Acuity: DELMER 2 tw2 Triage Assessment: 16:26 General: Appears ill, Behavior is. Pain: Unable to use pain scale. pt non verbal. tw2 Neuro: Level of Consciousness is awake, Oriented to person. Respiratory: Airway is patent Respiratory effort is labored, Respiratory pattern is tachypnea. GI: No signs and/or symptoms were reported involving the gastrointestinal system. Derm: Skin is diaphoretic. Musculoskeletal: Range of motion: limited in all extremities. 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 - Social history:: Smoking status: . - Unable to obtain history due to: patient distress. Screenin:20 Abuse screen: Denies threats or abuse. Nutritional screening: No deficits noted. tw2 Tuberculosis screening: No symptoms or risk factors identified. Fall Risk Secondary diagnosis (15 points) impaired mobility. Assessment: 17:23 Reassessment: see triage assessment. tw2 17:31 Reassessment: critical lab of 8.[address] Quintero notified. bm7 17:52 Reassessment: No changes from previously documented assessment. Patient and/or family tw2 updated on plan of care and expected duration. Pain level reassessed. 18:32 Reassessment: No changes from previously documented assessment. Patient and/or family tw2 updated on plan of care and expected duration. Pain level reassessed. 19:20 General: Appears Behavior is flat, quiet. Neuro: decerebrate position. Respiratory:. ha1 Respiratory: respiratory tracheostomy in place. blow by O2 at 10 L. EENT:. 19:20 : Garza in place to gravity drainage Urine is clear. ha1 Vital Signs: 16:27 BP 153 / 98; Pulse 187; Resp 44; Temp 103.7(A); Pulse Ox 98% on blow by for trach; tw2 16:46 Weight 58.97 kg (R); tw2 17:16 BP 170 / 96; Pulse 167; Resp 40; Temp 104.2(C); Pulse Ox 99% on blow by for trach; tw2 17:51 BP 163 / 90; Pulse 170; Resp 36; Temp 104.2(C); Pulse Ox 99% on blow by collar for tw2 trach; 18:32 BP 165 / 88; Pulse 169; Resp 37; Temp 104.0(C); Pulse Ox 98% ; tw2 18:45 BP 129 / 85; Pulse 153; Resp 31; Temp 103.9(C); Pulse Ox 97% ; tw2 20:29 BP 129 / 88; Pulse 137; Resp 28; Temp 101.8(C); Pulse Ox 99% ; ha1 21:07 BP 143 / 84; Pulse 132; Resp 25; Temp 102(C); Pulse Ox 99% 10 lpm ; ha1 18:32 blow by for trach collar tw2 18:45 blow by mask for trach collar tw2 20:29 blow by trach ha1 ED Course: 16:28 Patient arrived in ED. tw2 16:28 Placed in gown. Bed in low position. Side rails up X2. panel monitor on. Pulse ox on. tw2 NIBP on. 16:29 Fady Quintero MD is Attending Physician. rn 16:29 Triage completed. tw2 16:30 Arm band placed on. tw2 16:46 Tamela León, SHARON is Primary Nurse. tw2 17:00 Garza cath inserted, using sterile technique, 16 Fr., by la, balloon inflated, to tw2 gravity drainage, urine specimen collected. other Criticore garza. 17:05 Inserted saline lock: ,using aseptic technique. 20 gauge, 10 CM POWERGLIDE VIA US ss guided to R upper arm. . Aseptic technique used. 17:18 Chest Single View XRAY In Process Unspecified. EDMS 17:50 Blood Culture Adult (2) Sent. tw2 18:05 Shelton Roland MD is Hospitalizing Provider. rn 19:20 garza to gravity. ha1 19:20 left upper IO placed by EMS discontinued. bleeding controlled. no redness at site. ha1 21:06 No provider procedures requiring assistance completed. ha1 Administered Medications: 17:00 Drug: Acetaminophen Suppository 650 mg Route: MO; tw2 18:28 Follow up: Response: No adverse reaction tw2 17:05 Drug: NS 0.9% (30 ml/kg) 30 ml/kg Route: IV; Rate: bolus; Site: right upper arm; tw2 18:27 Follow up: Response: No adverse reaction; IV Status: Infusion continued; IV Intake: tw2 2000ml 17:17 Drug: Ativan (LORazepam) 1 mg Route: IVP; Site: right upper arm; tw2 18:27 Follow up: Response: No adverse reaction tw2 17:50 Drug: Cefepime 1 grams Route: IVPB; Rate: 200 ml/hr; Infused Over: 30 mins; Site: right tw2 upper arm; 18:27 Follow up: Response: No adverse reaction; IV Status: Completed infusion; IV Intake: tw2 100ml 18:28 Drug: vancoMYCIN 1 grams Route: IVPB; Infused Over: 2 hrs; Site: right upper arm; tw2 20:51 Follow up: IV Status: Completed infusion; IV Intake: 250ml ha1 18:31 Drug: Midazolam 2 mg Route: IVP; Site: right upper arm; tw2 21:07 Follow up: Response: No adverse reaction ha1 Medication: 17:23 VIS not applicable for this client. tw2 Intake: 18:27 IV: 100ml; Total: 100ml. tw2 18:27 IV: 2000ml; Total: 2100ml. tw2 20:51 IV: 250ml; Total: 2350ml. ha1 Outcome: 18:06 Decision to Hospitalize by Provider. rn 21:06 Admitted to ICU accompanied by nurse, room 2, Report called to Oly Herrera ha1 21:06 Condition: stable 21:06 Discharge instructions given to patient, Instructed on the need for admit, Demonstrated understanding of instructions, follow-up care. 21:42 Patient left the ED. ha1 Signatures: Dispatcher [employer] EDMS Fady Quintero MD MD rn Smirch, Shelby, RN RN ss Tamela León RN RN 2 Ofelia Borges, SHARON HERRERA 7 Deena Barton, SHARON RN ha1 Corrections: (The following items were deleted from the chart) 17:20 17:07 Graza cath inserted, using sterile technique, 16 Fr., by me, balloon inflated, to tw2 gravity drainage, urine specimen collected. other Criticore garza ss 17: 14:26 Chief complaint: EMS states: pt from [facility]. called us for difficulty tw2 breathing. when we got there she was diaphoretic, tachypneic, hr in 200's, we gave total of 24 mg Adenosine, noticed slight change in HR, then it went right back up. we got 103.4 ax temp, we gave 1L NS, was 95% upon arrival. multiple unsuccessful attempt at iv, established IO to LEFT upper arm. tw2 : 14:26 Coronavirus screen: At this time, the client does not indicate any symptoms tw2 associated with coronavirus-19. tw2 : 14:26 Ebola Screen: Patient denies travel to an Ebola-affected area in the 21 days tw2 before illness onset. tw2 :27 14:26 Method Of Arrival: EMS: [facility] tw2 14:26 Initial Sepsis Screen: Does the patient meet any 2 criteria? RR > 20 per min. tw2 Temp <36.0*C (96.8*F)) or > 38.3*C (100.9*F). HR > 90 bpm. Yes Does the patient have a suspected source of infection? Yes: Productive cough/pneumonia 2 14:26 Risk Assessment: Do you want to hurt yourself or someone else? Patient reports no tw2 desire to harm self or others. tw2 14:26 Onset of symptoms was June 08, 2022 tw2 14:26 General: Appears ill, Behavior is tw2 14:26 Pain: Unable to use pain scale. pt non verbal tw2 14:26 Derm: Skin is diaphoretic, tw2 14:26 Neuro: Level of Consciousness is awake, Oriented to person, tw2 14:26 Respiratory: Airway is patent Respiratory effort is labored, Respiratory pattern tw2 is tachypnea 2 14:26 GI: No signs and/or symptoms were reported involving the gastrointestinal system. tw2 14:26 Musculoskeletal: Range of motion: limited in all extremities, tw2
--- NOTE | 2022-06-08 18:07 | EDPHYS ---
Physician Documentation [facility] Name: Angelique Villalobos Age: 46 yrs Sex: Female : 1975 Arrival Date: 06/08/2022 Time: 16:28 Bed 8 Private MD: ED Physician Fady Quintero HPI: 06/08 17:42 This 46 yrs old Female presents to ER via EMS with complaints of Fever, High heart rate.rn 17:42 The patient reports fever, that was measured at 104 degrees Fahrenheit. Onset: The rn symptoms/episode began/occurred at an unknown time. Modifying factors: there are no obvious modifying factors. Associated signs and symptoms:. Unable to obtain HPI due to patient distress. The patient has experienced similar episodes in the past. 17:42 Pt given 24 mg adenosine for suspected SVT, without improvement.. 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 - Social history:: Smoking status: . - Unable to obtain history due to: patient distress. ROS: 17:42 Unable to obtain ROS due to patient distress. rn Exam: 17:42 Constitutional: This is a well developed, well nourished patient who is awake, alert rn Head/Face: Normocephalic, atraumatic. ENT: dry MM, no stridor Cardiovascular: Tachycardic, regular Respiratory: + tachypnea Abdomen/GI: soft, non-distended, non-tender Skin: Warm, diaphoretic MS/ Extremity: Pulses equal, no cyanosis. Neuro: Awake, non-verbal, has some movement in extremities. 18:29 ECG was reviewed by the Attending Physician. rn Vital Signs: 16:27 BP 153 / 98; Pulse 187; Resp 44; Temp 103.7(A); Pulse Ox 98% on blow by for trach; tw2 16:46 Weight 58.97 kg (R); tw2 17:16 BP 170 / 96; Pulse 167; Resp 40; Temp 104.2(C); Pulse Ox 99% on blow by for trach; tw2 17:51 BP 163 / 90; Pulse 170; Resp 36; Temp 104.2(C); Pulse Ox 99% on blow by collar for tw2 trach; 18:32 BP 165 / 88; Pulse 169; Resp 37; Temp 104.0(C); Pulse Ox 98% ; tw2 18:45 BP 129 / 85; Pulse 153; Resp 31; Temp 103.9(C); Pulse Ox 97% ; tw2 20:29 BP 129 / 88; Pulse 137; Resp 28; Temp 101.8(C); Pulse Ox 99% ; ha1 21:07 BP 143 / 84; Pulse 132; Resp 25; Temp 102(C); Pulse Ox 99% 10 lpm ; ha1 18:32 blow by for trach collar tw2 18:45 blow by mask for trach collar tw2 20:29 blow by trach ha1 MDM: 16:29 Patient medically screened. rn 17:10 ED course: Dr. Roland came by, recognized patient, notified me of previous visits and rn diagnosis of hyperadrenergic response, similar to ones in past, states usually appears septic. . 18:02 Differential diagnosis: viral Infection, bacterial infection, URI, pneumonia UTI. Data rn reviewed: vital signs, nurses notes, lab test result(s), radiologic studies, CT scan, and as a result, I will admit patient. Counseling: I had a detailed discussion with the patient and/or guardian regarding: the historical points, exam findings, and any diagnostic results supporting the discharge/admit diagnosis, lab results, radiology results, the need for further work-up and treatment in the hospital. Response to treatment: the patient's symptoms have mildly improved after treatment, and as a result, I will admit patient. ED course: Pt with questionable UTI, definitely SIRS criteria with hyperthermia, tachycardia, and tachypnea. Lactate elevated at 8.8, 30ml/kg ordered, abx given after cultures, BP elevated and not hypotensive, no reason for pressors, sepsis reevaluation complete. . 06/08 16:31 Order name: Blood Culture Adult (2) rn 06/08 16:31 Order name: CBC with Diff; Complete Time: 18:02 rn 06/08 16:31 Order name: CMP; Complete Time: 18:02 rn 06/08 16:31 Order name: Lactate; Complete Time: 18:02 rn 06/08 16:31 Order name: Protime (+inr); Complete Time: 18:02 rn 06/08 16:31 Order name: Ptt, Activated; Complete Time: 18:02 rn 06/08 16:31 Order name: Urine Culture rn 06/08 16:31 Order name: Urine Microscopic Only; Complete Time: 18:02 rn 06/08 17:03 Order name: Glucose, Ancillary Testing; Complete Time: 18:02 EDVT 06/08 17:07 Order name: Urine Dipstick-Ancillary; Complete Time: 18:02 EDVT 06/08 17:25 Order name: COVID-19 SARS RT PCR (Document "Date of Onset" if Symptomatic); Complete bd Time: 18:06/08 19:22 Order name: Lactate ha1 06/08 20:03 Order name: Lactate EDVT 06/08 16:31 Order name: Chest Single View XRAY; Complete Time: 18:02 rn 06/08 16:31 Order name: Accucheck; Complete Time: 16:52 rn 06/08 16:31 Order name: Cardiac monitoring; Complete Time: 16:52 rn 06/08 16:31 Order name: EKG - Nurse/Tech; Complete Time: 16:52 rn 06/08 16:31 Order name: IV Saline Lock - Large Bore; Complete Time: 16:52 rn 06/08 16:31 Order name: Labs collected and sent; Complete Time: 17:19 rn 06/08 16:31 Order name: O2 Per Protocol; Complete Time: 16:52 rn 06/08 17:16 Order name: RC AEROSOL MAXIMUM/DAY EDVT 06/08 17:16 Order name: RC AEROSOL MAXIMUM/DAY EDVT 06/08 21:19 Order name: Lactate Sepsis 2 HR Follow-up EDVT 06/08 16:31 Order name: O2 Sat Monitoring; Complete Time: 16:52 rn 06/08 16:31 Order name: Urine Dipstick-Ancillary (obtain specimen); Complete Time: 17:19 rn EC:29 Rate is 188 beats/min. Rhythm is regular. QRS [place] is Normal. QRS interval is normal. rn QT interval is normal. No Q waves. T waves are Normal. No ST changes noted. Clinical impression: SVT. Interpreted by me. Reviewed by me. Administered Medications: 17:00 Drug: Acetaminophen Suppository 650 mg Route: OR; tw2 18:28 Follow up: Response: No adverse reaction tw2 17:05 Drug: NS 0.9% (30 ml/kg) 30 ml/kg Route: IV; Rate: bolus; Site: right upper arm; tw2 18:27 Follow up: Response: No adverse reaction; IV Status: Infusion continued; IV Intake: tw2 2000ml 17:17 Drug: Ativan (LORazepam) 1 mg Route: IVP; Site: right upper arm; tw2 18:27 Follow up: Response: No adverse reaction tw2 17:50 Drug: Cefepime 1 grams Route: IVPB; Rate: 200 ml/hr; Infused Over: 30 mins; Site: right tw2 upper arm; 18:27 Follow up: Response: No adverse reaction; IV Status: Completed infusion; IV Intake: tw2 100ml 18:28 Drug: vancoMYCIN 1 grams Route: IVPB; Infused Over: 2 hrs; Site: right upper arm; tw2 20:51 Follow up: IV Status: Completed infusion; IV Intake: 250ml ha1 18:31 Drug: Midazolam 2 mg Route: IVP; Site: right upper arm; tw2 21:07 Follow up: Response: No adverse reaction ha1 Disposition Summary: 06/08/22 18:06 Hospitalization Ordered Hospitalization Status: Inpatient Admission rn Provider: Shelton Roland rn Location: Intensive Care Unit rn Condition: Fair rn Problem: new rn Symptoms: have improved rn Bed/Room Type: Standard rn Room Assignment: 2-(06/08/22 20:19) cg Diagnosis - Severe sepsis with septic shock rn - Fever, unspecified rn Forms: - Medication Reconciliation Form rn - SBAR form external grinder time excluding procedures: 18:02 Critical care time: Bedside Care: 30 minutes, Consultation: 5 minutes. Total time: 35 rn minutes Signatures: Dispatcher [employer] EDFady Beltre MD MD rn David Pineda, PRACTICE SPECIALIST-C PRACTICE SPECIALIST-Cla1 Marleny Sevilla RN RN Tamela Quiñones RN RN tw2 Deena Barton RN ha1 Corrections: (The following items were deleted from the chart) 18:32 17:42 Constitutional: This is a well developed, well nourished patient who is awake, rn alert, and in no acute distress. rn 20:19 18:06 rn cg
[2022-06-08] MEDS ORDERED: MIDAZOLAM HCL 2 MG/2 ML INJ ONE (18:39)
--- NOTE | 2022-06-08 20:07 | P.HP ---
Certification for Inpatient Patient admitted to: Inpatient With expected LOS: >2 Midnights Patient will require the following post-hospital care: None Practitioner: I am a practitioner with admitting privileges, knowledge of patient current condition, hospital course, and medical plan of care. Services: Services provided to patient in accordance with Admission requirements found in Title 42 Section 412.3 of the Code of Federal Regulations <David Pineda - Last Filed: 06/08/22 20:00> Patient History Date of Service: 06/08/22 Reason for admission: Septic shock History of Present Illness: 46-year-old female with history of anoxic brain injury, quadriplegia, status post Trach/PEG tube placement with history of paroxysmal sympathetic hyperactivity episodes presents the emergency department for tachycardia, fever, hypertension, spasticity, diaphoresis which [facility]. She has had multiple similar episodes in the past. She met SIRS criteria for leukocytosis, tachycardia, tachypnea and fever although no source of infection has been identified, initial lactic acid is 8.8 which has been typical for her sympathetic hyperactivity episodes in the past. She was given broad-spectrum antibiotics with vancomycin/cefepime as well as 30 cc/kg IV fluid bolus as septic shock has not been completely ruled out at the time. Patient was given IV benzos with Ativan/Versed and has had some improvement in her symptoms. Will admit for further evaluation and management of suspected sympathetic hyperactivity episode versus septic shock. - Past Medical/Surgical History Diabetic: No -: Anoxic Brain Injury -: Paroxysmal sympathetic hyperactivity -: Hysterectomy -: G Tube -: Tracheostomy Psychosocial/ Personal History: Patient lives at [facility]. She has a daughter. - Family History Father Notes: unable to assess r/t pt condition - Social History Alcohol use: No CD- Drugs: No Caffeine use: No Place of Residence: [facility] <David Pineda - Last Filed: 06/08/22 20:00> Date of Service: 06/09/22 <Shelton Roland - Last Filed: 06/09/22 14:48> Allergies No Known Allergies Allergy (Unverified 04/22/22 04:01) Home Medications: Aspirin [Aspirin EC 81 MG] 81 mg PO DAILY 04/22/22 Atorvastatin Calcium 20 mg PO DAILY 04/22/22 Baclofen 5 mg PO TID 04/22/22 Gabapentin [Neurontin*] 100 mg PO TID 04/22/22 Polyethylene Glycol 3350 [Miralax] 17 gm PO DAILY 04/22/22 cloNIDine HCL [Clonidine HCl] 0.1 mg PO TID 04/22/22 Ipratropium Neb [Atrovent*] 0.5 mg NEB [id number] amp 04/25/22 Jevity 1.2 Danie Liquid 240 ml FT QID bot 04/25/22 Sertraline [Zoloft*] 100 mg PO BEDTIME 04/29/22 Rivaroxaban [Xarelto*] 10 mg PO DAILY AT SUPPER 05/05/22 Acetylcysteine 600 mg IH TID 05/25/22 Review of Systems is unable to be obtained (Hx anoxic brain injury, not verbally responsive at baseline) <David Pineda - Last Filed: 06/08/22 20:00> Physical Examination - Physical Exam General: Alert, Other (Diaphoretic, spastic ) HEENT: Atraumatic, PERRLA, Mucous membr. moist/pink, EOMI, Sclerae nonicteric Neck: Supple, 2+ carotid pulse no bruit, No LAD, Without JVD or thyroid abnormality Respiratory: Diminished Cardiovascular: Normal S1 S2, Irregular heart rate/rhythm (Sinus tachycardia 150s) Capillary refill: <2 Seconds Gastrointestinal: Normal bowel sounds, No tenderness Musculoskeletal: No tenderness Integumentary: No rashes, Other (diaphoretic) Neurological: Other (not verbally conunicative, hx anoxic brain injury, spastic muscle contractures noted.) - Studies Laboratory Data (last 24 hrs) 06/08/22 16:44: PT 12.1, INR 1.10, APTT 27.2 06/08/22 16:44: Sodium 149 H, Potassium 4.9, BUN 28 H, Creatinine 1.41 H, Glucose 250 H, Total Bilirubin 0.2, AST 34, ALT 33, Alkaline Phosphatase 110 06/08/22 16:44: WBC 23.30 H*, Hgb 12.4, Hct 38.7, Plt Count 663 H <David Pineda - Last Filed: 06/08/22 20:00> - Studies Laboratory Data (last 24 hrs) 06/08/22 16:44: PT 12.1, INR 1.10, APTT 27.2 06/08/22 16:44: Sodium 149 H, Potassium 4.9, BUN 28 H, Creatinine 1.41 H, Glucose 250 H, Total Bilirubin 0.2, AST 34, ALT 33, Alkaline Phosphatase 110 06/08/22 16:44: WBC 23.30 H*, Hgb 12.4, Hct 38.7, Plt Count 663 H <Shelton Roland - Last Filed: 06/09/22 14:48> Assessment and Plan - Plan Assessment: Septic shock versus paroxysmal sympathetic hyperactivity syndrome History of anoxic brain injury status post trach/PEG with quadriplegia Plan: Septic shock versus paroxysmal sympathetic hyperactivity syndrome: SIRS criteria present / initial lactic acid 8.8 no hypotension currently noted no source of infection suspected or identified. It is believed the patient's symptoms and findings are related to paroxysmal sympathetic hyperactivity syndrome. She was treated for septic shock with broad-spectrum antibiotics and IV fluid bolus in the emergency department, blood cultures were obtained. Will continue abx and follow blood cultures. She received IV benzos in the ED which have improved her symptoms. Continue home meds when verified including baclofen/clonidine. Neurology consult in place. History of anoxic brain injury status post trach/PEG with quadriplegia: Noted/stable DVT PPX: Lovenox Code status:Full code Discharge Plan: [facility] Plan to discharge in: 72 Hours - Advance Directives Does patient have a Living Will: No Does patient have a Durable POA for Healthcare: No - Code Status/Comfort Care Code Status Assessed: Yes (Full code) Critical Care: No Time Spent Managing Pts Care (In Minutes): 70 <David Pineda - Last Filed: 06/08/22 20:00> Physician Review: Patient Assessed, Agree with Above Assessment and Plan <Shelton Roland - Last Filed: 06/09/22 14:48>
[2022-06-08] MEDS: VANCOMYCIN 1 GM in NA CHLORIDE 0.9% 250 ML IVPB SCH ×2 (20:48→21:00)
[2022-06-08] MEDS ORDERED: ONDANSETRON 4 MG/2 ML VIAL IV PRN (20:48)
[2022-06-08] MEDS: Ringers Lactate 1,000 ML IV SCH (20:48)
[2022-06-08] MEDS ORDERED: Ringers Lactate 1,000 ML IV ONE (21:04)
[2022-06-08 22:23] VITALS: BMI 20.3
[2022-06-08] MEDS ORDERED: VANCOMYCIN 0.25 GM in NA CHLORIDE 0.9% 100 ML IVPB ONE (23:00)
[2022-06-09] MEDS: ACETAMINOPHEN 650MG/RECT SUPP PR PRN (00:09)
[2022-06-09] MEDS: Ringers Lactate 1,000 ML IV SCH (04:48)
[2022-06-09 04:50] LABS: Hematocrit 32.7 % (36.0-45.0); Lymphocytes % 15.6 % (15.3-44.8); MCV 82.4 fL (80-100); MPV 7.6 fL (7.6-11.3); RBC Red Blood Cell Count 3.97 M/uL (3.86-4.86)
[2022-06-09 05:11] LABS: Albumin 2.9 g/dL (3.4-5.0); Bilirubin Total 0.2 mg/dL (0.2-1.0); Magnesium 2.1 mg/dL (1.8-2.4); Phosphorus 3.5 mg/dL (2.5-4.9); Potassium 3.7 mmol/L (3.5-5.1); Protein, Total 7.3 g/dL (6.4-8.2)
[2022-06-09] MEDS: D5 0.45 NS 1,000 ML IV SCH (06:48)
[2022-06-09] MEDS: ACETYLCYST 20% 4 ML VIAL IH SCH ×3 (08:00→20:00)
[2022-06-09] MEDS: IPRATROPIUM BROM 0.5MG/2.5ML NEB SCH ×3 (08:00→20:50)
[2022-06-09] MEDS ORDERED: ACETYLCYST 20% 4 ML VIAL IH SCH (08:00)
[2022-06-09] MEDS: JEVITY 1.2 CAL LIQUID 1,000 ML BOT FT SCH ×4 (08:36→20:21)
[2022-06-09] MEDS: CEFEPIME 2 GM in NA CHLORIDE 0.9% 100 ML IV SCH ×2 (08:47→16:55)
[2022-06-09] MEDS: BACLOFEN 10 MG TAB PO SCH ×3 (08:47→20:20)
[2022-06-09] MEDS: cloNIDine HCL 0.1 MG TAB PO SCH ×3 (08:48→20:21)
[2022-06-09] MEDS: ASPIRIN EC 81 MG TAB PO SCH (08:48)
[2022-06-09] MEDS: POLYETHYL GLY 3350 17 GM/DOSE PO SCH (08:48)
[2022-06-09] MEDS: GABAPENTIN 100 MG CAP PO SCH ×3 (08:48→20:19)
[2022-06-09] MEDS: ATORVASTATIN 20 MG TAB PO SCH (08:48)
[2022-06-09] MEDS: VANCOMYCIN 1.25 GM in NA CHLORIDE 0.9% 250 ML IVPB SCH ×2 (08:49→20:17)
[2022-06-09] MEDS ORDERED: CEFEPIME 1 GM in NA CHLORIDE 0.9% 100 ML IV SCH ×2 (09:00→18:00)
[2022-06-09] MEDS ORDERED: ENOXAPARIN 40 MG/0.4 ML SQ SCH (09:00)
--- NOTE | 2022-06-09 14:21 | P.PN ---
Subjective Date of Service: 06/09/22 Chief Complaint: Septic shock Subjective: No new changes No acute events overnight. She is nonverbal at baseline. She is following simple commands (i.e. blinking). She has been stable overnight per RN. Review of Systems is unable to be obtained Physical Examination - Vital Signs Temperature: 98.6 F Blood Pressure: 101/58 Pulse: 89 Respirations: 18 Pulse Ox (%): 99 - Physical Exam General: Alert, In no apparent distress, Unresponsive HEENT: Atraumatic, Mucous membr. moist/pink, Other (tracheostomy in place), Sclerae nonicteric Neck: Supple, JVD not distended Respiratory: Clear to auscultation bilaterally, Diminished Cardiovascular: No edema, Regular rate/rhythm, Normal S1 S2, No gallops, No rubs, No murmurs Gastrointestinal: Normal bowel sounds, Soft and benign, Non-distended, No tenderness, No rebound, No guarding, Other (PEG-tube in place) Musculoskeletal: No clubbing Integumentary: No rashes Neurological: Normal speech, Cranial nerves 3-12 intact, Normal affect - Studies Laboratory Data (last 24 hrs) 06/08/22 16:44: PT 12.1, INR 1.10, APTT 27.2 06/08/22 16:44: Sodium 149 H, Potassium 4.9, BUN 28 H, Creatinine 1.41 H, Glucose 250 H, Total Bilirubin 0.2, AST 34, ALT 33, Alkaline Phosphatase 110 06/08/22 16:44: WBC 23.30 H*, Hgb 12.4, Hct 38.7, Plt Count 663 H Assessment And Plan - Plan # Lactic Acidosis possibly secondary to Acute Episode of Paroxysmal Sympathetic Hyperactive Syndrome vs Septic Shock? # History of Opioid Overdose complicated by Anoxic Brain Injury now Trach/PEG- dependent # History of MRSA, Enterobacter Cloacae, and Stentrphoomonas Maltophilia Infections She met SIRS criteria based on temperature > 100.9 F, HR > 90 bpm, RR > 20 breaths/min, WBC > 12,00, but there is no suspected source as of now. - Sepsis order set was initiated - Lactate trend: 8.8 -> 2.7 -> 2.2 -> 1.9 - Blood cultures drawn before antibiotics were given - Broad spectrum antibiotics started: Vancomycin + Cefepime - In regards to fluids: - 30 mL/kg of IV fluids was given based on patient's actual body weight - Ordered sputum cultures, CT chest/abdomen/pelvis, and EEG to evaluate other etiologies - Continue home clonidine, gabapentin - Sepsis reassessment completed at by David Pineda NP overnight # KDIGO Stage I Acute Kidney Injury (resolved) # Hypernatremia secondary to Dehydration - IV fluids with D5W-1/2 NS @ 50 mL/hr - Monitor creatinine and urine output Shelton Roland M.D. Discharge Plan: Longterm Plan to discharge in: Greater than 2 days
--- NOTE | 2022-06-09 15:48 | RAD REPORT ---
EXAM DESCRIPTION: CT - CT CHEST,ABD,PELVIS W/O - 06/09/2022 3:19 pm CLINICAL HISTORY: Chest and abdomen pain. possible sepsis - unknown source COMPARISON: Thorax Wo Con dated 05/26/2022 TECHNIQUE: A limited noncontrast study was performed. All CT scans are performed using dose optimization technique as appropriate and may include automated exposure control or mA/KV adjustment according to patient size. FINDINGS: Tracheostomy is noted with tip above the ketty.Mucous plugging is seen posterior left nidhi g base bronchus with moderate airspace opacity posterior left base likely pneumonia.No pleural or per icardial effusion.No intrathoracic adenopathy. The liver, spleen, pancreas, adrenal glands and kidneys are within normal limits. No bowel obstruction, free air, free fluid or abscess. Appendectomy. Moderate stool throughout the co jennifer. No pathologic lymphadenopathy in the abdomen or pelvis. Urinary bladder catheter. No worrisome osseous finding. IMPRESSION: Posterior left lung base bronchus mucous plugging/ aspiration with posterior left lung b ase pneumonia suspected.
[2022-06-09] MEDS: RIVAROXABAN 10 MG TABLET PO SCH (16:55)
[2022-06-09] MEDS: SERTRALINE HCL 100 MG TAB PO SCH (20:19)
[2022-06-10] MEDS: CEFEPIME 2 GM in NA CHLORIDE 0.9% 100 ML IV SCH ×3 (01:50→16:54)
[2022-06-10] MEDS: IPRATROPIUM BROM 0.5MG/2.5ML NEB SCH ×4 (02:00→20:20)
--- NOTE | 2022-06-10 03:24 | P.INFCA ---
Sepsis Focused Assessment - Focused Assessment Complete? Sepsis Focused Assessment Completed?: Yes - Sepsis Screen Result Septic Shock: Positive - Evaluation Current stage of sepsis: Resolved - Vital Signs Reviewed: Yes Temperature: 97.3 F Heart rate: 70 Blood Pressure: 95/59 Respiratory Rate: 15 O2 Sat by Pulse Oximetry: 100 - Examination Date exam was performed: 06/09/22 Time exam was performed: 01:00 Heart: Regular rate/rhythm Lungs: Diminished air movement Peripheral pulses: 3+ Normal Peripheral pulse location: Radial Capillary refill: <2 Seconds Skin examination: Normal turgor
[2022-06-10] MEDS: D5 0.45 NS 1,000 ML IV SCH ×2 (03:59→22:38)
[2022-06-10 05:24] LABS: Absolute Lymphocytes (CBC) 1.1 K/uL (0.7-4.9); Hematocrit 27.5 % (36.0-45.0); Lymphocytes % 22.2 % (15.3-44.8); MCV 83.5 fL (80-100); MPV 8.1 fL (7.6-11.3); RBC Red Blood Cell Count 3.29 M/uL (3.86-4.86)
[2022-06-10 05:38] LABS: Albumin 2.2 g/dL (3.4-5.0); Bilirubin Total 0.3 mg/dL (0.2-1.0); Magnesium 1.8 mg/dL (1.8-2.4); Phosphorus 3.2 mg/dL (2.5-4.9); Potassium 3.3 mmol/L (3.5-5.1); Protein, Total 5.8 g/dL (6.4-8.2)
[2022-06-10] MEDS ORDERED: MAGNESIUM SULFATE 1 gm IVPB 1 GM/100 ML BAG IV ONE (07:17)
[2022-06-10] MEDS ORDERED: POTASSIUM 25 MEQ EFFERV TAB PO ONE (07:18)
[2022-06-10] MEDS: POLYETHYL GLY 3350 17 GM/DOSE PO SCH (08:06)
[2022-06-10] MEDS: ASPIRIN EC 81 MG TAB PO SCH (08:06)
[2022-06-10] MEDS: ATORVASTATIN 20 MG TAB PO SCH (08:06)
[2022-06-10] MEDS: cloNIDine HCL 0.1 MG TAB PO SCH ×3 (08:07→20:36)
[2022-06-10] MEDS: JEVITY 1.2 CAL LIQUID 1,000 ML BOT FT SCH ×4 (08:08→20:37)
[2022-06-10] MEDS: BACLOFEN 10 MG TAB PO SCH ×3 (08:10→20:36)
[2022-06-10] MEDS: GABAPENTIN 100 MG CAP PO SCH ×3 (08:45→20:36)
[2022-06-10] MEDS: ACETYLCYST 20% 4 ML VIAL IH SCH ×3 (09:41→20:20)
[2022-06-10] MEDS: VANCOMYCIN 1.25 GM in NA CHLORIDE 0.9% 250 ML IVPB SCH (09:44)
[2022-06-10] MEDS ORDERED: VANCOMYCIN 1 GM in NA CHLORIDE 0.9% 250 ML IVPB SCH (10:00)
[2022-06-10 10:21] LABS: Arterial Blood Carboxyhemoglob 1.1 % (0-1.5); Blood Gas Oxyhemoglobin 96.2 % (94-97); Blood O2 Saturation 98.2 % (92-98.5)
--- NOTE | 2022-06-10 11:11 | P.PN ---
Subjective Date of Service: 06/10/22 Chief Complaint: Septic shock No acute events overnight. She is nonverbal at baseline. No changes overnight per RN. Review of Systems is unable to be obtained Physical Examination - Vital Signs Temperature: 97 F Blood Pressure: 101/70 Pulse: 74 Respirations: 12 Pulse Ox (%): 100 - Studies Microbiology Data (last 24 hrs): 06/08/22 17:03 Catheterized Urine [place] Count - Final No growth. 06/08/22 17:03 Catheterized Urine - Final No growth. Assessment And Plan - Plan - Physical Exam General: Alert, In no apparent distress, Unresponsive HEENT: Atraumatic, Mucous membr. moist/pink, Other (tracheostomy in place), Sclerae nonicteric Neck: Supple, JVD not distended Respiratory: Clear to auscultation bilaterally, Diminished Cardiovascular: No edema, Regular rate/rhythm, Normal S1 S2, No gallops, No rubs, No murmurs Gastrointestinal: Normal bowel sounds, Soft and benign, Non-distended, No tenderness, No rebound, No guarding, Other (PEG-tube in place) Musculoskeletal: No clubbing Integumentary: No rashes Neurological: Normal speech, Cranial nerves 3-12 intact, Normal affect - Plan # Lactic Acidosis possibly secondary to Acute Episode of Paroxysmal Sympathetic Hyperactive Syndrome vs Septic Shock secondary to Left Lower Lobe Pneumonia # History of Opioid Overdose complicated by Anoxic Brain Injury now Trach/PEG- dependent # History of MRSA, Enterobacter Cloacae, and Stentrphoomonas Maltophilia Infections She met SIRS criteria based on temperature > 100.9 F, HR > 90 bpm, RR > 20 breaths/min, WBC > 12,00, but there is no suspected source as of now. - Sepsis order set was initiated - Lactate trend: 8.8 -> 2.7 -> 2.2 -> 1.9 - Blood cultures drawn before antibiotics were given - Broad spectrum antibiotics started: Vancomycin + Cefepime - In regards to fluids: - 30 mL/kg of IV fluids was given based on patient's actual body weight - Ordered sputum cultures, CT chest/abdomen/pelvis, and EEG to evaluate other etiologies - CT chest/abdomen/pelvis = "posterior left lung base bronchus mucous plugging/ aspiration with posterior left lung base pneumonia suspected." - Continue home clonidine, gabapentin - Sepsis reassessment completed at 01:00 AM on 06/09/2022 by David Pineda NP # KDIGO Stage I Acute Kidney Injury (resolved) # Hypernatremia secondary to Dehydration - IV fluids with D5W-1/2 NS @ 50 mL/hr - Monitor creatinine and urine output Shelton Roland M.D.
[2022-06-10] MEDS: RIVAROXABAN 10 MG TABLET PO SCH (16:54)
[2022-06-10] MEDS: SERTRALINE HCL 100 MG TAB PO SCH (20:36)
[2022-06-10] MEDS: VANCOMYCIN 1 GM in NA CHLORIDE 0.9% 250 ML IVPB SCH (20:36)
[2022-06-11] MEDS: MIDAZOLAM HCL 2 MG/2 ML INJ IV PRN ×2 (00:05→17:03)
[2022-06-11] MEDS: IPRATROPIUM BROM 0.5MG/2.5ML NEB SCH ×4 (01:35→20:50)
[2022-06-11] MEDS: CEFEPIME 2 GM in NA CHLORIDE 0.9% 100 ML IV SCH ×3 (01:59→17:02)
[2022-06-11 05:22] LABS: Absolute Lymphocytes (CBC) 0.9 K/uL (0.7-4.9); Lymphocytes % 7.6 % (15.3-44.8); MCV 83.1 fL (80-100); MPV 8.9 fL (7.6-11.3); RBC Red Blood Cell Count 3.84 M/uL (3.86-4.86)
[2022-06-11 05:35] LABS: Albumin 2.9 g/dL (3.4-5.0); Bilirubin Total 0.3 mg/dL (0.2-1.0); Phosphorus 2.8 mg/dL (2.5-4.9); Protein, Total 7.2 g/dL (6.4-8.2)
[2022-06-11] MEDS: ACETYLCYST 20% 4 ML VIAL IH SCH ×3 (08:07→20:50)
[2022-06-11] MEDS: POLYETHYL GLY 3350 17 GM/DOSE PO SCH (09:14)
[2022-06-11] MEDS: ASPIRIN EC 81 MG TAB PO SCH (09:15)
[2022-06-11] MEDS: BACLOFEN 10 MG TAB PO SCH ×3 (09:15→21:23)
[2022-06-11] MEDS: GABAPENTIN 100 MG CAP PO SCH ×3 (09:15→21:17)
[2022-06-11] MEDS: JEVITY 1.2 CAL LIQUID 1,000 ML BOT FT SCH ×4 (09:15→21:14)
[2022-06-11] MEDS: ATORVASTATIN 20 MG TAB PO SCH (09:15)
[2022-06-11] MEDS: cloNIDine HCL 0.1 MG TAB PO SCH ×3 (09:18→21:12)
[2022-06-11] MEDS: D5 0.45 NS 1,000 ML IV SCH (12:55)
[2022-06-11] MEDS: VANCOMYCIN 1 GM in NA CHLORIDE 0.9% 250 ML IVPB SCH ×2 (12:55→21:11)
[2022-06-11] MEDS: RIVAROXABAN 10 MG TABLET PO SCH (17:02)
--- NOTE | 2022-06-11 17:36 | P.PN ---
Subjective Date of Service: 06/11/22 Chief Complaint: Septic shock No acute events overnight. She is nonverbal at baseline. No changes overnight per RN. I have tried to contact her daughter, Ms. Spaulding, twice; however, both of my calls went straight to voicemail. I will be happy to speak with her if she calls back. Review of Systems is unable to be obtained Physical Examination - Vital Signs Temperature: 99.9 F Blood Pressure: 110/75 Pulse: 85 Respirations: 15 Pulse Ox (%): 96 Assessment And Plan - Plan - Physical Exam General: Alert, In no apparent distress, Unresponsive HEENT: Atraumatic, Mucous membr. moist/pink, Other (tracheostomy in place), Sclerae nonicteric Neck: Supple, JVD not distended Respiratory: Clear to auscultation bilaterally, Diminished Cardiovascular: No edema, Regular rate/rhythm, Normal S1 S2, No gallops, No rubs, No murmurs Gastrointestinal: Normal bowel sounds, Soft and benign, Non-distended, No tenderness, No rebound, No guarding, Other (PEG-tube in place) Musculoskeletal: No clubbing Integumentary: No rashes Neurological: Normal speech, Cranial nerves 3-12 intact, Normal affect - Plan # Lactic Acidosis possibly secondary to Acute Episode of Paroxysmal Sympathetic Hyperactive Syndrome vs Septic Shock secondary to Left Lower Lobe Pneumonia # History of Opioid Overdose complicated by Anoxic Brain Injury now Trach/PEG- dependent # History of MRSA, Enterobacter Cloacae, and Stentrphoomonas Maltophilia Infections She met SIRS criteria based on temperature > 100.9 F, HR > 90 bpm, RR > 20 breaths/min, WBC > 12,00, but there is no suspected source as of now. - Sepsis order set was initiated - Lactate trend: 8.8 -> 2.7 -> 2.2 -> 1.9 - Blood cultures drawn before antibiotics were given - Broad spectrum antibiotics started: Vancomycin + Cefepime - In regards to fluids: - 30 mL/kg of IV fluids was given based on patient's actual body weight - Ordered sputum cultures, CT chest/abdomen/pelvis, and EEG to evaluate other etiologies - CT chest/abdomen/pelvis = "posterior left lung base bronchus mucous plugging/ aspiration with posterior left lung base pneumonia suspected." - Continue home clonidine, gabapentin - Sepsis reassessment completed at 01:00 AM on 06/09/2022 by David Pineda NP # KDIGO Stage I Acute Kidney Injury (resolved) # Hypernatremia secondary to Dehydration - IV fluids with D5W-1/2 NS @ 50 mL/hr - Monitor creatinine and urine output Discussed her case with Dr. Conde, who feels that she may benefit from a non- invasive ventilator. Requested CM assistance in options on funding for an NIV. Shelton Roland M.D.
[2022-06-11] MEDS: SERTRALINE HCL 100 MG TAB PO SCH (21:12)
[2022-06-12] MEDS: CEFEPIME 2 GM in NA CHLORIDE 0.9% 100 ML IV SCH ×3 (00:40→17:20)
[2022-06-12] MEDS: IPRATROPIUM BROM 0.5MG/2.5ML NEB SCH ×4 (02:00→20:20)
[2022-06-12] MEDS: D5 0.45 NS 1,000 ML IV SCH ×3 (06:34→19:23)
[2022-06-12 06:44] LABS: Absolute Lymphocytes (CBC) 1.1 K/uL (0.7-4.9); Hematocrit 28.4 % (36.0-45.0); Lymphocytes % 19.5 % (15.3-44.8); MCV 82.1 fL (80-100); MPV 8.3 fL (7.6-11.3); RBC Red Blood Cell Count 3.47 M/uL (3.86-4.86)
[2022-06-12 07:03] LABS: Albumin 2.6 g/dL (3.4-5.0); Bilirubin Total 0.3 mg/dL (0.2-1.0); Magnesium 1.9 mg/dL (1.8-2.4); Phosphorus 3.7 mg/dL (2.5-4.9); Potassium 3.4 mmol/L (3.5-5.1); Protein, Total 6.7 g/dL (6.4-8.2)
[2022-06-12] MEDS: ACETYLCYST 20% 4 ML VIAL IH SCH ×3 (09:32→20:20)
[2022-06-12] MEDS: GABAPENTIN 100 MG CAP PO SCH ×3 (10:23→20:02)
[2022-06-12] MEDS: ASPIRIN EC 81 MG TAB PO SCH (10:23)
[2022-06-12] MEDS: cloNIDine HCL 0.1 MG TAB PO SCH ×3 (10:23→20:02)
[2022-06-12] MEDS: ATORVASTATIN 20 MG TAB PO SCH (10:23)
[2022-06-12] MEDS: POLYETHYL GLY 3350 17 GM/DOSE PO SCH (10:23)
[2022-06-12] MEDS: VANCOMYCIN 1 GM in NA CHLORIDE 0.9% 250 ML IVPB SCH ×2 (10:24→20:04)
[2022-06-12] MEDS: JEVITY 1.2 CAL LIQUID 1,000 ML BOT FT SCH ×4 (10:25→20:03)
[2022-06-12] MEDS: BACLOFEN 10 MG TAB PO SCH ×3 (10:55→20:03)
--- NOTE | 2022-06-12 15:40 | P.PN ---
Subjective Date of Service: 06/12/22 Chief Complaint: Septic shock No acute events overnight. She is nonverbal at baseline. Her cultures have returned positive for MRSA and gram-negative rods. I have updated her daughter, Ms. Spaulding, who states that she is currently enrolling Ms. Villalobos in Medicaid. Review of Systems is unable to be obtained Physical Examination - Vital Signs Temperature: 99 F Blood Pressure: 133/91 Pulse: 92 Respirations: 18 Pulse Ox (%): 100 Assessment And Plan - Plan - Physical Exam General: Alert, In no apparent distress, Unresponsive HEENT: Atraumatic, Mucous membr. moist/pink, Other (tracheostomy in place), Sclerae nonicteric Neck: Supple, JVD not distended Respiratory: Clear to auscultation bilaterally, Diminished Cardiovascular: No edema, Regular rate/rhythm, Normal S1 S2, No gallops, No rubs, No murmurs Gastrointestinal: Normal bowel sounds, Soft and benign, Non-distended, No tenderness, No rebound, No guarding, Other (PEG-tube in place) Musculoskeletal: No clubbing Integumentary: No rashes Neurological: Normal speech, Cranial nerves 3-12 intact, Normal affect - Plan # Lactic Acidosis possibly secondary to Acute Episode of Paroxysmal Sympathetic Hyperactive Syndrome vs Septic Shock secondary to MRSA/Gram-Negative Left Lower Lobe Pneumonia # History of Opioid Overdose complicated by Anoxic Brain Injury now Trach/PEG- dependent # History of MRSA, Enterobacter Cloacae, and Stentrphoomonas Maltophilia Infections She met SIRS criteria based on temperature > 100.9 F, HR > 90 bpm, RR > 20 breaths/min, WBC > 12,00, but there is no suspected source as of now. - Sepsis order set was initiated - Lactate trend: 8.8 -> 2.7 -> 2.2 -> 1.9 - Blood cultures drawn before antibiotics were given - Broad spectrum antibiotics started: Vancomycin + Cefepime - In regards to fluids: - 30 mL/kg of IV fluids was given based on patient's actual body weight - Ordered sputum cultures, CT chest/abdomen/pelvis, and EEG to evaluate other etiologies - CT chest/abdomen/pelvis = "posterior left lung base bronchus mucous plugging/ aspiration with posterior left lung base pneumonia suspected." - Continue home clonidine, gabapentin - Sepsis reassessment completed at 01:00 AM on 06/09/2022 by David Pineda NP # KDIGO Stage I Acute Kidney Injury (resolved) # Hypernatremia secondary to Dehydration - IV fluids with D5W-1/2 NS @ 50 mL/hr - Monitor creatinine and urine output Discussed her case with Dr. Conde, who feels that she may benefit from a non- invasive ventilator. Requested CM assistance in options on funding for an NIV. Shelton Roland M.D.
[2022-06-12] MEDS: RIVAROXABAN 10 MG TABLET PO SCH (17:20)
[2022-06-12] MEDS: SERTRALINE HCL 100 MG TAB PO SCH (20:03)
[2022-06-13] MEDS: CEFEPIME 2 GM in NA CHLORIDE 0.9% 100 ML IV SCH ×3 (00:47→18:20)
[2022-06-13] MEDS: IPRATROPIUM BROM 0.5MG/2.5ML NEB SCH ×4 (01:25→19:45)
[2022-06-13 05:02] LABS: Absolute Lymphocytes (CBC) 1.2 K/uL (0.7-4.9); Hematocrit 28.1 % (36.0-45.0); Lymphocytes % 16.8 % (15.3-44.8); MCV 80.2 fL (80-100); MPV 8.2 fL (7.6-11.3)
[2022-06-13 05:09] LABS: Potassium 3.8 mmol/L (3.5-5.1)
[2022-06-13] MEDS: ACETYLCYST 20% 4 ML VIAL IH SCH ×3 (08:20→19:45)
[2022-06-13] MEDS: POLYETHYL GLY 3350 17 GM/DOSE PO SCH (09:00)
[2022-06-13] MEDS: GABAPENTIN 100 MG CAP PO SCH ×3 (09:15→21:09)
[2022-06-13] MEDS: cloNIDine HCL 0.1 MG TAB PO SCH ×3 (09:15→21:09)
[2022-06-13] MEDS: ATORVASTATIN 20 MG TAB PO SCH (09:15)
[2022-06-13] MEDS: ASPIRIN EC 81 MG TAB PO SCH (09:15)
[2022-06-13] MEDS: JEVITY 1.2 CAL LIQUID 1,000 ML BOT FT SCH ×4 (09:16→21:09)
[2022-06-13] MEDS: D5 0.45 NS 1,000 ML IV SCH ×2 (09:20→16:40)
[2022-06-13] MEDS: BACLOFEN 10 MG TAB PO SCH ×3 (09:29→21:09)
[2022-06-13] MEDS: VANCOMYCIN 1 GM in NA CHLORIDE 0.9% 250 ML IVPB SCH ×2 (09:46→21:09)
[2022-06-13] MEDS: RIVAROXABAN 10 MG TABLET PO SCH (18:20)
[2022-06-13] MEDS: SERTRALINE HCL 100 MG TAB PO SCH (21:09)
[2022-06-14] MEDS: MIDAZOLAM HCL 2 MG/2 ML INJ IV PRN ×3 (00:03→08:49)
[2022-06-14] MEDS: CEFEPIME 2 GM in NA CHLORIDE 0.9% 100 ML IV SCH ×2 (00:53→08:01)
[2022-06-14] MEDS: IPRATROPIUM BROM 0.5MG/2.5ML NEB SCH ×4 (01:40→20:00)
[2022-06-14] MEDS: D5 0.45 NS 1,000 ML IV SCH ×2 (03:47→17:00)
[2022-06-14] MEDS: ACETAMINOPHEN 650MG/RECT SUPP PR PRN (04:29)
[2022-06-14] MEDS ORDERED: MIDAZOLAM HCL 2 MG/2 ML INJ ONE (05:01)
[2022-06-14 06:32] LABS: Absolute Lymphocytes (CBC) 1.6 K/uL (0.7-4.9); Hematocrit 33.2 % (36.0-45.0); Lymphocytes % 7.7 % (15.3-44.8); MCV 80.6 fL (80-100); MPV 8.4 fL (7.6-11.3); RBC Red Blood Cell Count 4.12 M/uL (3.86-4.86)
[2022-06-14 06:44] LABS: Magnesium 1.6 mg/dL (1.8-2.4); Potassium 4.4 mmol/L (3.5-5.1)
--- NOTE | 2022-06-14 07:04 | RAD REPORT ---
EXAM DESCRIPTION: RAD - Chest Single View - 06/14/2022 5:33 am CLINICAL HISTORY: pneumonia COMPARISON: Portable 06/08/2022 ; CT chest 06/09/2022 TECHNIQUE: AP portable chest image was obtained 06/14/2022 5:33 am . FINDINGS: Left lower lobe atelectasis/infiltrate has improved but not resolved. Upper left lung fiel d is clear. No new or progressive right lung field. Breast implants increased density over both lower lung [place]. Trach tube is in place. Heart and vasculature are normal. No measurable pleural effusion and no pneum othorax. No acute bony abnormality seen. No acute aortic findings suspected. IMPRESSION: Left lower lobe atelectasis/infiltrate pattern has improved but not resolved.
[2022-06-14] MEDS ORDERED: METOPROLOL TARTRATE 5 MG/5 ML INJ IV STA (07:11)
[2022-06-14] MEDS ORDERED: NA CHLORIDE 0.9% 250 ML IV ONE (07:11)
[2022-06-14] MEDS ORDERED: FENTANYL CITR 100 MCG/2 ML IV PRN (07:11)
[2022-06-14 07:38] LABS: Blood Morphology Comment NOT SEEN (NOT SEEN); Platelet Estimate ADEQ
[2022-06-14] MEDS: ATORVASTATIN 20 MG TAB PO SCH (08:00)
[2022-06-14] MEDS: POLYETHYL GLY 3350 17 GM/DOSE PO SCH (08:00)
[2022-06-14] MEDS: cloNIDine HCL 0.1 MG TAB PO SCH ×3 (08:00→20:54)
[2022-06-14] MEDS: ASPIRIN EC 81 MG TAB PO SCH (08:00)
[2022-06-14] MEDS: JEVITY 1.2 CAL LIQUID 1,000 ML BOT FT SCH ×4 (08:01→20:55)
[2022-06-14] MEDS: GABAPENTIN 100 MG CAP PO SCH ×3 (08:01→20:54)
[2022-06-14] MEDS: BACLOFEN 10 MG TAB PO SCH ×3 (08:01→20:54)
[2022-06-14] MEDS: ACETYLCYST 20% 4 ML VIAL IH SCH ×3 (08:20→20:00)
[2022-06-14] MEDS: Meropenem 1,000 MG in NA CHLORIDE 0.9% 100 ML IV SCH ×2 (09:14→16:30)
[2022-06-14 09:27] VITALS: O2SAT 100
[2022-06-14] MEDS: VANCOMYCIN 1 GM in NA CHLORIDE 0.9% 250 ML IVPB SCH (10:14)
--- NOTE | 2022-06-14 12:45 | P.PN ---
Subjective Date of Service: 06/13/22 Subjective: No new changes Patient is clinically doing okay. Cultures possibly colonization. Holding off on antibiotics at this time. Review of Systems is unable to be obtained Physical Examination - Vital Signs Temperature: 101.9 F Blood Pressure: 102/61 Pulse: 110 Respirations: 17 Pulse Ox (%): 99 - Physical Exam General: Alert, In no apparent distress HEENT: Atraumatic, PERRLA, EOMI Neck: Supple, JVD not distended Respiratory: Clear to auscultation bilaterally, Normal air movement Cardiovascular: Regular rate/rhythm, Normal S1 S2 Gastrointestinal: Normal bowel sounds, No tenderness Musculoskeletal: No tenderness Integumentary: No rashes Neurological: Other (Patient with traumatic brain injury), Abnormal speech, Abnormal tone, Abnormal affect - Studies Microbiology Data (last 24 hrs): 06/08/22 17:46 Blood - Blood Aerobic Blood Culture - Final No growth in 5 days. 06/08/22 17:46 Blood - Blood Anaerobic Blood Culture - Final No growth in 5 days. 06/08/22 16:44 Blood - Blood Aerobic Blood Culture - Final No growth in 5 days. 06/08/22 16:44 Blood - Blood Anaerobic Blood Culture - Final No growth in 5 days. Medications List Reviewed: Yes Assessment & Plan - Problems (Diagnosis) (1) Pseudomonas aeruginosa colonization Current Visit: Yes Status: Acute (2) S/P percutaneous endoscopic gastrostomy (PEG) tube placement Current Visit: No Status: Acute (3) Status post tracheostomy Current Visit: No Status: Acute (4) History of anoxic brain injury Current Visit: No Status: Chronic - Plan Plan: 1. Continue with IV antibiotics 2. Cultures positive. No fever or white count so possible colonization 3. Repeat chest x-ray 4. Continue with tube feeds and additional supportive care 5. Appreciate pulmonary consultation 6. Continue with nebs as needed 7. O2 per protocol 8. Continue with gentle hydration 9. Repeat labs including CBC and renal function in a.m. 10. GI and DVT prophylaxis Discharge Plan: Home Plan to discharge in: Greater than 2 days - Advance Directives Does patient have a Living Will: No Does patient have a Durable POA for Healthcare: No - Code Status/Comfort Care Code Status Assessed: Yes Code Status: Full Code Physician Review: Patient Assessed, Agree with Above Assessment and Plan Critical Care: No Time Spent Managing PTS Care (In Minutes): 35
[2022-06-14] MEDS: RIVAROXABAN 10 MG TABLET PO SCH (16:30)
[2022-06-14] MEDS: VANCOMYCIN 750 MG in NA CHLORIDE 0.9% 150 ML IVPB SCH (20:53)
[2022-06-14] MEDS: SERTRALINE HCL 100 MG TAB PO SCH (20:54)
[2022-06-14] MEDS ORDERED: VANCOMYCIN 500 MG/VIAL ONE ×2 (20:58→21:01)
[2022-06-15] MEDS: Meropenem 1,000 MG in NA CHLORIDE 0.9% 100 ML IV SCH ×2 (01:50→08:33)
[2022-06-15] MEDS: IPRATROPIUM BROM 0.5MG/2.5ML NEB SCH ×3 (02:40→14:10)
--- NOTE | 2022-06-15 06:48 | EKG ---
Test Date: 2022-06-08 Test Time: 16:41:12 [employer] Worker: MIKE MEASUREMENT RESULTS: Intervals: Rate: 188 MA: QRSD: 64 QT: 240 QTc: 424 [place]: P: MA: QRS: 86 T: 66 INTERPRETIVE STATEMENTS: Supraventricular tachycardia with fusion complexes Nonspecific ST and T wave abnormality Abnormal ECG Compared to ECG 05/25/2022 06:15:22 Fusion complex(es) now present ST (T wave) deviation now present Sinus tachycardia no longer present Atrial abnormality no longer present Myocardial infarct finding no longer present Electronically Signed On 06-15-22 06:33:23 CDT by Kris Coronado
[2022-06-15] MEDS: ACETYLCYST 20% 4 ML VIAL IH SCH ×2 (08:00→14:10)
[2022-06-15] MEDS: cloNIDine HCL 0.1 MG TAB PO SCH ×2 (08:33→14:37)
[2022-06-15] MEDS: GABAPENTIN 100 MG CAP PO SCH (08:33)
[2022-06-15] MEDS: ATORVASTATIN 20 MG TAB PO SCH (08:34)
[2022-06-15] MEDS: ASPIRIN EC 81 MG TAB PO SCH (08:34)
[2022-06-15] MEDS: BACLOFEN 10 MG TAB PO SCH ×2 (08:35→14:29)
[2022-06-15] MEDS: D5 0.45 NS 1,000 ML IV SCH (08:35)
[2022-06-15] MEDS: JEVITY 1.2 CAL LIQUID 1,000 ML BOT FT SCH ×2 (08:35→14:28)
[2022-06-15] MEDS ORDERED: VANCOMYCIN 500 MG/VIAL ONE (08:39)
[2022-06-15] MEDS: POLYETHYL GLY 3350 17 GM/DOSE PO SCH (09:00)
[2022-06-15] MEDS: VANCOMYCIN 750 MG in NA CHLORIDE 0.9% 150 ML IVPB SCH (09:21)
[2022-06-15 14:35] VITALS: TEMP 97.4
[2022-06-15 14:37] VITALS: BP 128/87
--- NOTE | 2022-06-16 12:52 | RAD REPORT ---
EXAM DESCRIPTION: RAD - Chest Single View - 06/15/2022 2:27 am CLINICAL HISTORY: Left picc line placement TECHNIQUE: Frontal view of the chest. COMPARISON: XR Chest dated 06/14/2022 FINDINGS: Lungs: Patchy left basilar opacification, mildly progressed. Pleural space: Unremarkable. No pneumothorax. Heart: Unremarkable. No cardiomegaly. Mediastinum: Unremarkable. Bones/joints: Unremarkable. Soft tissues: Bilateral breast implants. Tubes, lines and devices: Tracheostomy tube in place. Interval placement of a left upper extremit y PICC. The tip projects over the cavoatrial junction. IMPRESSION: 1. Left upper extremity PICC tip projects over the cavoatrial junction. 2. Patchy left basilar opacification (atelectasis and/or infiltrate), mildly progressed. Electronically signed by: Caridad Baumann MD 06/15/2022 2:53 AM CDT Due to temporary technical issues with the PACS/Fluency reporting system, reports are being signed by the in house radiologists without review as a courtesy to insure prompt reporting. The interpreting radiologist is fully responsible for the content of the report.
--- NOTE | 2022-06-17 07:24 | EEG ---
CHART: [id number] TEST ID#: [id number] DATE OF STUDY: 06/10/2022 THE EEG WAS RECORDED PORTABLE IN THE ICU ON A 17 CHANNEL MACHINE. ELECTRODES WERE APPLIED IN THE USUAL MANNER USING THE INTERNATIONAL 10-20 SYSTEM. THE WAKING BACKGROUND RHYTHM IN THIS RECORD CONSISTS OF FAIRLY WELL DEVELOPED AND FAIRLY WELL ORGANIZED WAVES OF 8.5-9 HZ., MAXIMAL IN THE POSTERIOR HEAD REGIONS WHICH ATTENUATE NORMALLY WITH EYE OPENING. MODERATE VOLTAGE 1.5-3 HZ ACTIVITY IS EXPRESSED IN THE FRONTAL REGIONS. LOW VOLTAGE 18-22 HZ ACTIVITY IS ALSO EXPRESSED IN THE FRONTAL REGIONS. THERE ARE NO FOCAL OR LATERALIZING FEATURES. NO EPILEPTIFORM ACTIVITY APPEARS. SLEEP DID NOT OCCUR. HYPERVENTILATION WAS NOT PERFORMED. PHOTIC STIMULATION PRODUCED FAIR DRIVING BILATERALLY. IMPRESSION: THIS IS A MILD TO MODERATE ABNORMAL AWAKE ROUTINE EEG DUE TO MODERATELY VOLTAGE FRONTAL SLOW (DELTA) ACTIVITY. THIS IS A NON-SPECIFIC FINDING INDICATING THE PRESENCE OF A MODERATE DIFFUSE DISTRUBANCE IN CERBRAL FUNCTION.
== END 2022-06-15 16:00 | DRG 871 ==
LOC: ER 16:25 → ERHOLD 19:12 → 3RD-ICU 21:14 → 4TH 06-11 13:45 → 3RD-ICU 06-11 15:50
PROVIDERS: ADMIT Internal Medicine; ATTEND Hospitalist
PROC: 02HV33Z Insertion of Infusion Device into Superior Vena Cava, Percutaneous Approach (ICD-10-PCS; principal; 2022-06-15)
DX: A41.02 Sepsis due to Methicillin resistant Staphylococcus aureus (principal); R65.21 Severe sepsis with septic shock; G82.50 Quadriplegia, unspecified; I47.1 Supraventricular tachycardia; E87.2 Acidosis; N17.9 Acute kidney failure, unspecified; E87.0 Hyperosmolality and hypernatremia; G90.8 Other disorders of autonomic nervous system; E86.0 Dehydration; A41.52 Sepsis due to Pseudomonas; B96.5 Pseudomonas (aeruginosa) (mallei) (pseudomallei) as the cause of diseases classified elsewhere; Z93.0 Tracheostomy status; Z93.1 Gastrostomy status; Z86.14 Personal history of Methicillin resistant Staphylococcus aureus infection; Z79.82 Long term (current) use of aspirin; Z90.710 Acquired absence of both cervix and uterus; Z87.820 Personal history of traumatic brain injury; Z79.899 Other long term (current) drug therapy; Z20.822 Contact with and (suspected) exposure to COVID-19
CPT/HCPCS: 36415; 36569; 51702; 71045; 71250; 74176; 80048; 80053; 80202; 81003; 81015; 82805; 82947; 83605; 83735; 84100; 84132; 84145; 85025; 85610; 85730; 87040; 87070; 87077; 87086; 87088; 87186; 87205; 93005; 95816; 96365; 96366; 96367; 96375; 99285; J0692; J1650; J2185; J2250; J3010; J3370; J3475; J7030; J7050; J7120; J7799; U0003

== ENCOUNTER 2022-06-16 02:22 | Emergency (ER) | payer OTHER ==
--- OUTSIDE RECORDS SUMMARY | 2022-06-16 02:32 | XMS REPORT | Continuity of Care Document ---
:[address] [facility] t Address [address] [place] [address] Care Team Providers Name Role Phone ANAMARIA_KARIN_Mukund_Jaqui Attending Clinician Unavailable Keyshawn Betancourt Attending Clinician [phone] Magda Duval Attending Clinician [phone] Lorna Douglass Attending Clinician Unavailable ANAMARIA_KARIN_Mukund_Jaqui Admitting Clinician Unavailable Manuel Rose Admitting Clinician Unavailable Payers Payer Name Policy Type Policy Number Effective Date Expiration Date S [facility] MEDICAID - 000 MOVED-MGRHOLD - PENDING Problems This patient has no known problems. Allergies, Adverse Reactions, Alerts Allergy Allergy Status Severity Reaction(s) Onset Inactive Treating Comm ents Source Name Type Date Date Clinician No DA Active U [facility] Allergy 02-09 [place] [facility] 00:00: [facility] ion [address] No Known DA Active U [facility] Allergie 02-09 [place] s 00:00: [facility] [address] Medications This patient has no known medications. Procedures Procedure Date / Time Performed Performing Clinician Adiel ford [id number] 2022-03-21 00:00:[address] [facility] [id number] 2022-03-20 00:00:[address] [facility] [id number] 2022-02-17 00:00:[address] [facility] [id number] 2022-02-17 00:00:[address] [facility] [id number] 2022-02-17 00:00:[address] [facility] [id number] 2022-02-09 00:00:[address] [facility] Encounters Start End Encounter Admission Attending Care Care Encounter Source Date/Time Date/Time Type Type Clinicians Facility Department ID 2022-06-09 2022-06-09 Outpatient GC_[facility]_Tod PRIV PRIV [id number] [facility] 00:00:00 00:00:00 d_J [id number] Medica l 2022-06-07 2022-06-07 Outpatient GC_BAHC_Tod PRIV PRIV [id number] [facility] 00:00:00 00:00:00 d_J [id number] Medica l 2022-06-02 2022-06-02 Outpatient [place], PRIV PRIV [id number] 00:00:00 00:00:00 Keyshawn Alcantar [id number] 2022-05-24 2022-05-24 Outpatient Mukund, PRIV PRIV [id number] 00:00:00 00:00:00 Magda [id number]-9 [id number] 2022-05-06 2022-05-06 Outpatient GC_BAHC_Tod PRIV PRIV [id number] [facility] 00:00:00 00:00:00 d_J [id number] Medica l 2022-04-26 2022-04-26 Outpatient GC_BAHC_Tod PRIV PRIV [id number] [facility] 00:00:00 00:00:00 d_J [id number] Medica l 2022-04-26 2022-04-26 Outpatient Mukund, PRIV PRIV [id number]-1 00:00:00 00:00:00 Magda [id number] 2022-04-22 2022-04-22 Outpatient GC_BAHC_Tod PRIV PRIV [id number] [facility] 00:00:00 00:00:00 d_J [id number] Medica l 2022-02-09 2022-04-20 Inpatient Lorna Pina HCANW CARDIAC [id number] [facility] 05:41:00 [facility]44[facility] 2022-02-09 2022-04-20 Inpatient Lorna PinaNLouisa CARDIAC [id number] [facility] 05:41:00 17:44:00 [id number] [facility] Results Test Description Test Time Test Comments Results Result Comments Source GLUBED 2022-04-20 16:03:00 Test Item Value Reference Range Interpretation Comme nts GLUBED (test code = GLUBED) 101 MG/DL 70-105 N [id number] 11:04:00 Test Item Value Reference Range Interpretation Comments GLUBED (test code = GLUBED) 179 MG/DL 70-105 H BASIC METABOLIC [id number] 08:00:00 Test Item Value Reference Range Interpretation [...] mg/dL 8.5-10.5 N = CA) CBC W/AUTO [id number] 06:57:00 Test Item Value Reference Range Interpretation [...] = BA#) 0.0 x10 3/uL 0.0-0.1 N [id number] 06:14:00 Test Item Value Reference Range Interpretation Comments GLUBED (test code = GLUBED) 106 MG/DL 70-105 H [id number] 20:22:00 Test Item Value Reference Range Interpretation Comments GLUBED (test code = GLUBED) 120 MG/DL 70-105 H [id number] 15:21:00 Test Item Value Reference Range Interpretation Comments GLUBED (test code = GLUBED) 125 MG/DL 70-105 H [id number] 11:16:00 Test Item Value Reference Range Interpretation Comments GLUBED (test code = GLUBED) 153 MG/DL 70-105 H [id number] 06:36:00 Test Item Value Reference Range Interpretation Comments GLUBED (test code = GLUBED) 135 MG/DL 70-105 H [id number] 22:08:00 Test Item Value Reference Range Interpretation Comments GLUBED (test code = GLUBED) 105 MG/DL 70-105 N [id number] 16:11:00 Test Item Value Reference Range Interpretation Comments GLUBED (test code = GLUBED) 123 MG/DL 70-105 H [id number] 12:14:00 Test Item Value Reference Range Interpretation Comments GLUBED (test code = GLUBED) 117 MG/DL 70-105 H CBC W/AUTO [id number] 06:20:00 Test Item Value Reference Range Interpretation [...] 0.0 x10 3/uL 0.0-0.1 N BASIC METABOLIC [id number] 06:19:00 Test Item Value Reference Range Interpretation [...] code 9.1 mg/dL 8.5-10.5 N = CA) [id number] 06:05:00 Test Item Value Reference Range Interpretation Comments GLUBED (test code = GLUBED) 128 MG/DL 70-105 H [id number] 00:55:00 Test Item Value Reference Range Interpretation Comments GLUBED (test code = GLUBED) 128 MG/DL 70-105 H - XR CHEST 1 [id number] 18:02:00 [facility] : 1975 Sex: FPatient Name: JERI VILLALOBOS Unit No: [id number] EXAMS: CPT: [id number] XR CHEST 1 V 99244 STUDY: - XR CHEST 1 V INDICATION: sob and tachycardia TECHNIQUE: AP views of the chest. COMPARISON: Chest radiograph from 04/13/2022. FINDINGS: Tracheostomy cannula as seen previously. No mediastinal shift or enlargement. Normal cardiac silhouette. Mild symmetric low lung volume. Patchy opacity in left lower lung re trocardiac region which may represent pneumonia and/or atelectasis. [...] NONI CHENEY MD CC: Lorna Douglass MD; Ruiz Vaughn MD Technologist: Oly Deleon Time: DAP (Gy m2): Air Kerma (mGy): Trscr Dt/Tm: 04/17/2022 (180) by:Robin Orig Print D/T: S: 04/17/2022 (1804) BATCH NO: N/A Name: [facility] Phys: Ruiz Wolfe MD [address] : 1975 Age: 46 Sex: F [place] [id number] Loc: N.0377 1 Exam Date: 04/17/2022 Status: ADM IN PH: FAX: PAGE1 Signed Report [id number] 15:58:00 Test Item Value Reference Range Interpretation Comments GLUBED (test code = GLUBED) 142 MG/DL 70-105 H [id number] 11:34:00 Test Item Value Reference Range Interpretation Comments GLUBED (test code = GLUBED) 113 MG/DL 70-105 H BASIC METABOLIC [id number] 07:39:00 Test Item Value Reference Range Interpretation [...] mg/dL 8.5-10.5 N = CA) CBC W/AUTO [id number] 07:21:00 Test Item Value Reference Range Interpretation [...] = BA#) 0.0 x10 3/uL 0.0-0.1 N [id number] 05:50:00 Test Item Value Reference Range Interpretation Comments GLUBED (test code = GLUBED) 146 MG/DL 70-105 H [id number] 23:41:00 Test Item Value Reference Range Interpretation Comments GLUBED (test code = GLUBED) 103 MG/DL 70-105 N [id number] 15:36:00 Test Item Value Reference Range Interpretation Comments GLUBED (test code = GLUBED) 120 MG/DL 70-105 H [id number] 12:03:00 Test Item Value Reference Range Interpretation Comments GLUBED (test code = GLUBED) 134 MG/DL 70-105 H BASIC METABOLIC [id number] 07:51:00 Test Item Value Reference Range Interpretation [...] mg/dL 8.5-10.5 N = CA) CBC W/AUTO [id number] 07:48:00 Test Item Value Reference Range Interpretation [...] = 0.0 x10 3/uL 0.0-0.1 N BA#) [id number] 06:59:00 Test Item Value Reference Range Interpretation Comments GLUBED (test code = GLUBED) 125 MG/DL 70-105 H [id number] 00:00:00 Test Item Value Reference Range Interpretation Comments GLUBED (test code = GLUBED) 125 MG/DL 70-105 H [id number] 19:47:00 Test Item Value Reference Range Interpretation Comments GLUBED (test code = GLUBED) 106 MG/DL 70-105 H [id number] 16:21:00 Test Item Value Reference Range Interpretation Comments GLUBED (test code = GLUBED) 153 MG/DL 70-105 H [id number] 12:30:00 Test Item Value Reference Range Interpretation Comments GLUBED (test code = GLUBED) 114 MG/DL 70-105 H [id number] 05:46:00 Test Item Value Reference Range Interpretation Comments GLUBED (test code = GLUBED) 136 MG/DL 70-105 H CBC W/AUTO [id number] 04:49:00 Test Item Value Reference Range Interpretation [...] 0.0 x10 3/uL 0.0-0.1 N BASIC METABOLIC [id number] 04:33:00 Test Item Value Reference Range Interpretation [...] code 8.9 mg/dL 8.5-10.5 N = CA) [id number] 20:48:00 Test Item Value Reference Range Interpretation Comments GLUBED (test code = GLUBED) 89 MG/DL 70-105 N [id number] 17:18:00 Test Item Value Reference Range Interpretation Comments GLUBED (test code = GLUBED) 117 MG/DL 70-105 H [id number] 11:19:00 Test Item Value Reference Range Interpretation Comments GLUBED (test code = GLUBED) 113 MG/DL 70-105 H [id number] 06:05:00 Test Item Value Reference Range Interpretation Comments GLUBED (test code = GLUBED) 118 MG/DL 70-105 H BASIC METABOLIC [id number] 04:57:00 Test Item Value Reference Range Interpretation [...] code 8.5 mg/dL 8.5-10.5 N = CA) [id number] 04:57:00 Test Item Value Reference Range Interpretation Comments PHOSPHOROUS (test code = PHOS) 3.8 mg/dl 2.5-4.6 N [id number] 04:57:00 Test Item Value Reference Range Interpretation Comments MAGNESIUM (test code = MAG) 1.8 mg/dl 1.8-2.5 N CBC W/AUTO [id number] 04:44:00 Test Item Value Reference Range Interpretation [...] = BA#) 0.0 x10 3/uL 0.0-0.1 N [id number] 01:16:00 Test Item Value Reference Range Interpretation Comments GLUBED (test code = GLUBED) 84 MG/DL 70-105 N [id number] 17:04:00 Test Item Value Reference Range Interpretation Comments GLUBED (test code = GLUBED) 112 MG/DL 70-105 H [id number] 12:18:00 Test Item Value Reference Range Interpretation Comments GLUBED (test code = GLUBED) 107 MG/DL 70-105 H - XR CHEST 1 [id number] 08:45:00 [facility] : 1975 Sex: FPatient Name: JERI VILLALOBOS Unit No: [id number] EXAMS: CPT: [id number] XR CHEST 1 V 48616 CHEST RADIOGRAPH - 1 view CLINICAL HISTORY: f/u hypoxemia. COMPARISON: 04/12/2022 FINDINGS: Patient is rotated. Heart size unchanged. Bibasilar atelectasis and/or infiltrates, left greater than right. No large pleural effusion seen. IMPRESSION: Right basilar atelectasis and/or infiltrates, left greater than right. Findings are relatively stable. Recommend continued follow-up. Electronically Signed by Maximiliano Acuña 04/13/2022 at 0845 Reported and signed by: Maximiliano Cleaning MD CC: Jorje Eller MD; Manuel Rose DOTechnologist: Dyan Deleon Time: DAP (Gy m2): Air Kerma (mGy): Trscr Dt/Tm: 04/13/2022 (0845) by :Ibis Orig Print D/T: S: 04/13/2022 (0848) BATCH NO: N/A Name: JERI VILLALOBOS [facility] Phys: Jorje Brasher MD [address] [facility] : 1975 Age: 46 Sex: F [place] [address] Loc: N.2058 1 Exam Date: 04/13/2022 Status: ADM IN PH: FAX: PAGE 1 Signed Report [id number] 08:10:00 Test Item Value Reference Range Interpretation Comments GLUBED (test code = GLUBED) 102 MG/DL 70-105 N ARTERIAL BLOOD [id number] 04:42:00 Test Item Value Reference Range Interpretation [...] d message] code = MARY) The system [employer] generated this result transmit may reference range [...] g/dL 12.0-18.0 N = THB) BASIC METABOLIC [id number] 04:11:00 Test Item Value Reference Range Interpretation [...] in AM if not alreadyComments to Phleb: ordered.[id number] 04:11:00 Test Item Value Reference Range Interpretation Comments MAGNESIUM (test code = MAG) 1.8 mg/dl 1.8-2.5 N Spec Comments: Repeat Serum Magnesium level in AM if not alreadyComments to Phleb: ordered.CALCIUM [id number] 03:19:00 Test Item Value Reference Range Interpretation Comments CALCIUM IONIZED (test code = WESLY) 1.20 mmol/L 1.13-1.32 N CBC W/AUTO [id number] 03:06:00 Test Item Value Reference Range Interpretation [...] 0.0 x10 3/uL 0.0-0.1 N ARTERIAL BLOOD [id number] 20:54:00 Test Item Value Reference Range Interpretation [...] d message] code = MARY) The system [employer] generated this result transmit may reference range [...] code 15.2 g/dL 12.0-18.0 N = THB) [id number] 16:48:00 Test Item Value Reference Range Interpretation Comments GLUBED (test code = GLUBED) 132 MG/DL 70-105 H COMPREHENSIVE METABOLIC [id number] 16:32:00 Test Item Value Reference Range Interpretation [...] 42-121 N PHOSPHATASE (test code = ALKP) [id number] 16:32:00 Test Item Value Reference Range Interpretation Comments PHOSPHOROUS (test code = PHOS) 3.7 mg/dl 2.5-4.6 N [id number] 16:32:00 Test Item Value Reference Range Interpretation Comments MAGNESIUM (test code = MAG) 2.2 mg/dl 1.8-2.5 N [id number] 11:37:00 Test Item Value Reference Range Interpretation Comments GLUBED (test code = GLUBED) 139 MG/DL 70-105 H - CT HEAD/BRAIN W/O [id number] 10:15:00 [facility] : 1975 Sex: FPatient Name: JERI VILLALOBOS Unit No: [id number] EXAMS: CPT: [id number] CT HEAD/BRAIN W/O CONT [id number] EXAM: CT BRAIN WITHOUT CONTRAST DATE: 04/12/2022 [...] intracranial abnormality. 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 Mccain-white matter differentiation is otherwise preserved. No midline shift, herniation, or intraventricular megaly is seen. The basal cisterns are patent Retention cysts are seen in bilateral posterior ethmoid air cells. There is also debris mucosal thickening in the left sphenoid sinus. Paranasal sinuses otherwise clear the mastoid air cells are clear. There is no fractureof the skull, skull base, or visible facial bones. IMPRESSION: No acute intracranial abnormalities. at 1015 Reported and signed by: Yung Abel MD CC: Manuel Rose DO Technologist: Sarah Perez CTDI: 44.26 DLP: 733.2 Trscr Dt/Tm: 04/12/2022 (1015) by:[email or web address] Orig Print D/T: S: 04/12/2022 (1018) BATCH NO: N/A Name: JERI VILLALOBOS [facility] Phys: SIDFA.01 - Manuel Rose [address] [place] : 1975 Age: 46 Sex: F [place] [address] Loc: N.8 1 Exam Date: 04/12/2022 Status: ADM IN PH: FAX: PAGE 1 Signed ReportARTERIAL BLOOD [id number] 10:07:00 Test Item Value Reference Range Interpretation [...] d message] code = MARY) The system [employer] generated this result transmit may reference range [...] (test Yes code = ALLENS) BLOOD GAS [id number] 10:07:00 Test Item Value Reference Range Interpretation Comments ARTERIAL BLOOD GAS PH 7.463 7.350-7.450 H (test code = PHA) ARTERIAL BLOOD GAS 28.2 mmHg 35-45 L PCO2 (test code = PCO2A) BICARBONATE TOTAL 19.7 mmol/L 22-26 L HCO3 (test code = HCO3) BASE EXCESS (test -2.7 mmol/L See_Comment L [Automate d message] code = MARY) The system [employer] generated this result transmit may reference range [...] N = THB) - CTA CHEST FOR [id number] 10:06:00 [facility] : 1975 Sex: FPatient Name: JERI VILLALOBOS Unit No: [id number] EXAMS: CPT: [id number] [place] [address] CTA CHEST WITH CONTRAST: INDICATIONS:Overdose. Tachycardia. COMPARISON: None available TECHNIQUE: Axial CT chest with IV contrast was performed. Coronal and sagittal reformats reconstructed. Bolus tracking seriesfollowed by contrast- enhanced CT. Data set analyzed on a 3-D workstation with image post processing. CT radiation dose optimization is achieved for this examination by the use of a CT protocol in accordance with ACR practice standards and adherence to addiction counselor's recommendations. Contrast: 100cc Isovue-300. Total DPL: 388.21mGy*cm. FINDINGS: Bilateral breast implants. A tracheostomy tube is in place. No enlarged supraclavicular or axillary lymph node. The visualized central airway is unremarkable. No hilar or mediastinal lymphadenopathy. Cardiac size is normal. No coronary calcifications. Focal consolidation in the left lower lobe, similar to [...] (1009) BATCH NO: N/A Name: JERI VILLALOBOS [facility] Phys: HETAL Manuel Rose [address] : 1975 Age: 46 Sex: F [place], [place] [address] Loc: N.2058 1 Exam Date: 04/12/2022 Status: ADM IN PH: FAX: PAGE 1 Signed ReportCOMPREHENSIVE METABOLIC PANEL 2022-04-12 09:41:00 Test Item Value Reference Range Interpretation [...] PHOSPHATASE (test code = ALKP) 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 ProtocolCREATINE KINASE (CK)2022-04-12 09:41:00 Test Item Value Reference Range Interpretation Comments CREATINE KINASE (CK) (test code = CK) 80 U/L 0-210 N 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 [id number] 09:41:00 Test Item Value Reference Range Interpretation Comments MAGNESIUM (test code = MAG) 2.0 mg/dl 1.8-2.5 N 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 ProtocolCBC W/AUTO [id number] 09:37:00 Test Item Value Reference Range Interpretation [...] 0.1 x10 3/uL 0.0-0.1 N 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 [id number] 09:37:00 Test Item Value Reference Range Interpretation Comments TROPONIN-I (test code = TROPI) <0.020 ng/mL 0.000-0.034 N CBC W/AUTO [id number] 08:38:00 Test Item Value Reference Range Interpretation [...] (test code = ADEQUATE ADEQUATE PLTEST) DIFFERENTIAL [id number] 08:38:00 Test Item Value Reference Range Interpretation Comments PLATELET MORPHOLOGY (test code = Normal NORMAL PLTMORPH) - XR CHEST 1 [id number] 08:34:00 [facility] FABI, PIA N : 1975 Sex: FPatient Name: JERI VILLALOBOS Unit No: [id number] EXAMS: CPT: [id number] XR CHEST 1 V 91179 CHEST RADIOGRAPH, ONE VIEW: FRONTAL HISTORY: Shortness of breath. COMPARISON: April 01 2022. FINDINGS: Biapical lung scarring. Basilar congestion. Borderline cardiomegaly. IMPRESSION: Basilar congestion and underlying cardiomegaly. at 0834 Reported and signedby: Jalen Black MD CC: Manuel Rose DO Technologist: Galdino Deleon Time: DAP (Gy m2): Air Kerma(mGy): Trscr Dt/Tm: 04/12/2022 (0834) by:[email or web address] Orig Print D/T: S: 04/12/2022 (0837) BATCH NO: N/A Name: JERI VILLALOBOS [facility] Phys: SIDFA. [place],Manuel Grant [address] [place] : 1975 Age: 46 Sex: F [place] [address] Loc: N.0385 1 Exam Date: 04/12/2022 Status: ADM IN PH: FAX: PAGE 1 Signed ReportBASIC METABOLIC [id number] 08:21:00 Test Item Value Reference Range Interpretation [...] code 9.4 mg/dL 8.5-10.5 N = CA) [id number] 08:07:00 Test Item Value Reference Range Interpretation Comments GLUBED (test code = GLUBED) 116 MG/DL 70-105 H [id number] 06:06:00 Test Item Value Reference Range Interpretation Comments CREATININE (test code = CREAT) 0.63 mg/dL 0.44-1.03 N [id number] 06:03:00 Test Item Value Reference Range Interpretation Comments GLUBED (test code = GLUBED) 124 MG/DL 70-105 H [id number] 21:32:00 Test Item Value Reference Range Interpretation Comments GLUBED (test code = GLUBED) 125 MG/DL 70-105 H [id number] 15:13:00 Test Item Value Reference Range Interpretation Comments GLUBED (test code = GLUBED) 138 MG/DL 70-105 H [id number] 12:10:00 Test Item Value Reference Range Interpretation Comments GLUBED (test code = GLUBED) 129 MG/DL 70-105 H [id number] 07:01:00 Test Item Value Reference Range Interpretation Comments GLUBED (test code = GLUBED) 129 MG/DL 70-105 H [id number] 06:14:00 Test Item Value Reference Range Interpretation Comments CREATININE (test code = CREAT) 0.61 mg/dL 0.44-1.03 N [id number] 21:53:00 Test Item Value Reference Range Interpretation Comments GLUBED (test code = GLUBED) 132 MG/DL 70-105 H [id number] 17:28:00 Test Item Value Reference Range Interpretation Comments GLUBED (test code = GLUBED) 124 MG/DL 70-105 H [id number] 08:46:00 Test Item Value Reference Range Interpretation Comments CREATININE (test code = CREAT) 0.67 mg/dL 0.44-1.03 N [id number] 06:18:00 Test Item Value Reference Range Interpretation Comments GLUBED (test code = GLUBED) 137 MG/DL 70-105 H [id number] 20:49:00 Test Item Value Reference Range Interpretation Comments GLUBED (test code = GLUBED) 122 MG/DL 70-105 H [id number] 16:26:00 Test Item Value Reference Range Interpretation Comments GLUBED (test code = GLUBED) 135 MG/DL 70-105 H [id number] 11:42:00 Test Item Value Reference Range Interpretation Comments GLUBED (test code = GLUBED) 139 MG/DL 70-105 H [id number] 09:59:00 Test Item Value Reference Range Interpretation Comments CREATININE (test code = CREAT) 0.63 mg/dL 0.44-1.03 N VANCOMYCIN [id number] 09:49:00 Test Item Value Reference Range Interpretation Comments VANCOMYCIN TROUGH 18.2 ug/ml 10.0-20.0 N Please ref er to (test code = VANCT) Medicati on Administration Record (MAR) forlast d ose date and time. [id number] 20:27:00 Test Item Value Reference Range Interpretation Comments GLUBED (test code = GLUBED) 134 MG/DL 70-105 H [id number] 15:35:00 Test Item Value Reference Range Interpretation Comments GLUBED (test code = GLUBED) 110 MG/DL 70-105 H [id number] 12:06:00 Test Item Value Reference Range Interpretation Comments GLUBED (test code = GLUBED) 122 MG/DL 70-105 H [id number] 06:35:00 Test Item Value Reference Range Interpretation Comments CREATININE (test code = CREAT) 0.55 mg/dL 0.44-1.03 N [id number] 05:42:00 Test Item Value Reference Range Interpretation Comments GLUBED (test code = GLUBED) 87 MG/DL 70-105 N [id number] 20:26:00 Test Item Value Reference Range Interpretation Comments GLUBED (test code = GLUBED) 116 MG/DL 70-105 H [id number] 15:57:00 Test Item Value Reference Range Interpretation Comments GLUBED (test code = GLUBED) 126 MG/DL 70-105 H [id number] 11:55:00 Test Item Value Reference Range Interpretation Comments GLUBED (test code = GLUBED) 137 MG/DL 70-105 H BASIC METABOLIC [id number] 09:48:00 Test Item Value Reference Range Interpretation [...] 8.9 mg/dL 8.5-10.5 N = CA) VANCOMYCIN [id number] 09:44:00 Test Item Value Reference Range Interpretation Comments VANCOMYCIN TROUGH 19.9 ug/ml 10.0-20.0 N Please ref er to (test code = VANCT) Medicati on Administration Record (MAR) forlast d ose date and time. CBC W/AUTO [id number] 09:22:00 Test Item Value Reference Range Interpretation [...] = BA#) 0.0 x10 3/uL 0.0-0.1 N [id number] 07:10:00 Test Item Value Reference Range Interpretation Comments CREATININE (test code = CREAT) 0.65 mg/dL 0.44-1.03 N [id number] 04:46:00 Test Item Value Reference Range Interpretation Comments GLUBED (test code = GLUBED) 122 MG/DL 70-105 H [id number] 16:41:00 Test Item Value Reference Range Interpretation Comments GLUBED (test code = GLUBED) 128 MG/DL 70-105 H [id number] 11:51:00 Test Item Value Reference Range Interpretation Comments GLUBED (test code = GLUBED) 130 MG/DL 70-105 H VANCOMYCIN [id number] 09:01:00 Test Item Value Reference Range Interpretation Comments VANCOMYCIN TROUGH 11.4 ug/ml 10.0-20.0 N Please ref er to (test code = VANCT) Medicati on Administration Record (MAR) forlast d ose date and time. BASIC METABOLIC [id number] 08:56:00 Test Item Value Reference Range Interpretation [...] mg/dL 8.5-10.5 N = CA) CBC W/AUTO [id number] 08:52:00 Test Item Value Reference Range Interpretation [...] = BA#) 0.0 x10 3/uL 0.0-0.1 N [id number] 06:04:00 Test Item Value Reference Range Interpretation Comments GLUBED (test code = GLUBED) 129 MG/DL 70-105 H [id number] 23:59:00 Test Item Value Reference Range Interpretation Comments GLUBED (test code = GLUBED) 118 MG/DL 70-105 H [id number] 15:29:00 Test Item Value Reference Range Interpretation Comments GLUBED (test code = GLUBED) 137 MG/DL 70-105 H [id number] 10:42:00 Test Item Value Reference Range Interpretation Comments GLUBED (test code = GLUBED) 160 MG/DL 70-105 H [id number] 06:44:00 Test Item Value Reference Range Interpretation Comments GLUBED (test code = GLUBED) 143 MG/DL 70-105 H [id number] 06:32:00 Test Item Value Reference Range Interpretation Comments CREATININE (test code = CREAT) 0.61 mg/dL 0.44-1.03 N [id number] 22:14:00 Test Item Value Reference Range Interpretation Comments GLUBED (test code = GLUBED) 134 MG/DL 70-105 H [id number] 15:26:00 Test Item Value Reference Range Interpretation Comments GLUBED (test code = GLUBED) 127 MG/DL 70-105 H [id number] 10:51:00 Test Item Value Reference Range Interpretation Comments GLUBED (test code = GLUBED) 136 MG/DL 70-105 H [id number] 07:11:00 Test Item Value Reference Range Interpretation Comments CREATININE (test code = CREAT) 0.70 mg/dL 0.44-1.03 N [id number] 05:48:00 Test Item Value Reference Range Interpretation Comments GLUBED (test code = GLUBED) 104 MG/DL 70-105 N [id number] 20:44:00 Test Item Value Reference Range Interpretation Comments GLUBED (test code = GLUBED) 93 MG/DL 70-105 N [id number] 16:59:00 Test Item Value Reference Range Interpretation Comments GLUBED (test code = GLUBED) 110 MG/DL 70-105 H [id number] 12:41:00 Test Item Value Reference Range Interpretation Comments GLUBED (test code = GLUBED) 107 MG/DL 70-105 H [id number] 06:04:00 Test Item Value Reference Range Interpretation Comments GLUBED (test code = GLUBED) 100 MG/DL 70-105 N [id number] 20:16:00 Test Item Value Reference Range Interpretation Comments GLUBED (test code = GLUBED) 104 MG/DL 70-105 N [id number] 16:43:00 Test Item Value Reference Range Interpretation Comments GLUBED (test code = GLUBED) 139 MG/DL 70-105 H [id number] 12:11:00 Test Item Value Reference Range Interpretation Comments GLUBED (test code = GLUBED) 112 MG/DL 70-105 H [id number] 08:07:00 Test Item Value Reference Range Interpretation Comments CREATININE (test code = CREAT) 0.59 mg/dL 0.44-1.03 N [id number] 05:27:00 Test Item Value Reference Range Interpretation Comments GLUBED (test code = GLUBED) 135 MG/DL 70-105 H [id number] 00:46:00 Test Item Value Reference Range Interpretation Comments GLUBED (test code = GLUBED) 117 MG/DL 70-105 H [id number] 16:35:00 Test Item Value Reference Range Interpretation Comments GLUBED (test code = GLUBED) 104 MG/DL 70-105 N [id number] 11:28:00 Test Item Value Reference Range Interpretation Comments GLUBED (test code = GLUBED) 138 MG/DL 70-105 H MISC [id number] 11:03:00 Test Item Value Reference Range Interpretation Comments MISC CHEMISTRY Procaalcitoni n = 0.11 ng/mL (test code = HIGH Ref range = 0.00-0.08 MISCCHEM) Jeri Villalobos : 1975 Patient ReportP atient ID: Age: 46 Account Numb er: [id number] n ID: [id number] Sex: Female Ordering Physic aakash:Ordered Items: Procalci toninDate Collected: 12/2021 Date Received: 03/29 DateReported: 0 03/30/2022 Fasting: Not GivenProcalcito ninTest Current Result and Flag Previous Result and Date UnitsReference IntervalProcalc ilnjuq98 0.11 High ng/mL 0.00 -0.08A procalcitonin ( [...] years where there iss ufficient patient demogra phic data tomatch the res ult to the patient. Result s from certain testsare exclud ed from the Previous Result display.Icon Legend Out of R eference Range Critical or Stephany rtPerforming Labs01: [facility] [address], [place], [place],[address] D ir: Tiburcio Stevens MDFor Inquiries , the physician may contact Branch: Lab: [phone] ient DetailsLedbette r, PiaPhone:Date o f : 1975Age: 46Sex: FemalePatient I D:Alternate Patient ID:Phys serafinan DetailsH[facility] [address], [place], [place]Phone: Wzb ount Number: [id number] an ID: SIDDIQINPI:Spec imen DetailsSpecimen ID: [id number] ontrol ID: [id number] rnate Control Number: [id number] Collected: 12/2021 1328 LocalDate Recei elba: 03/29/2022 0000 ETDate Ent ered: 03/29/2022 2125 ETDate Reported: 03/30 1509 ETRte: 00Date C reated and Stored 03/30/22 1514 ET Final Report Page 1of 1 [id number] 07:01:00 Test Item Value Reference Range Interpretation Comments CREATININE (test code = CREAT) 0.56 mg/dL 0.44-1.03 N [id number] 06:29:00 Test Item Value Reference Range Interpretation Comments GLUBED (test code = GLUBED) 130 MG/DL 70-105 H [id number] 21:10:00 Test Item Value Reference Range Interpretation Comments GLUBED (test code = GLUBED) 99 MG/DL 70-105 N [id number] 16:24:00 Test Item Value Reference Range Interpretation Comments GLUBED (test code = GLUBED) 104 MG/DL 70-105 N [id number] 11:40:00 Test Item Value Reference Range Interpretation Comments GLUBED (test code = GLUBED) 110 MG/DL 70-105 H COMPREHENSIVE METABOLIC [id number] 07:12:00 Test Item Value Reference Range Interpretation [...] 42-121 N PHOSPHATASE (test code = ALKP) [id number] 06:23:00 Test Item Value Reference Range Interpretation Comments GLUBED (test code = GLUBED) 122 MG/DL 70-105 H [id number] 21:53:00 Test Item Value Reference Range Interpretation Comments GLUBED (test code = GLUBED) 112 MG/DL 70-105 H [id number] 15:53:00 Test Item Value Reference Range Interpretation Comments GLUBED (test code = GLUBED) 117 MG/DL 70-105 H PATHOLOGY REVIEW [id number] 11:04:00 Test Item Value Reference Range Interpretation Comments NAME OF TEST PROCALCITONIN (test code = NAMEMISC) GENETIC TEST NO (test code = GENETIC2) PERFORM SITE LCA (test code = LABPERS) TEST COST (test 0.00 code = LABCOST) LIST CPT CODES 000 (test code = MISCCPT) APPROVAL (test YES code = APPROVAL) PATH REVIEW Discussed with Dr. MARES (test G. Inga. Lloyd atient code = PATH is spiking feve rs. REVIEW COM) Dr. Xiong fe els Procalcitonin i s necessary for currentpatient care. Procalcitonin o rder is approved. SIGNATURE (test Kale Jewell, code = M.D. SIGNATURE) [id number] 10:36:00 Test Item Value Reference Range Interpretation Comments GLUBED (test code = GLUBED) 100 MG/DL 70-105 N COMPREHENSIVE METABOLIC [id number] 07:52:00 Test Item Value Reference Range Interpretation [...] PHOSPHATASE (test code = ALKP) CBC W/AUTO [id number] 07:38:00 Test Item Value Reference Range Interpretation [...] = BA#) 0.0 x10 3/uL 0.0-0.1 N [id number] 06:28:00 Test Item Value Reference Range Interpretation Comments GLUBED (test code = GLUBED) 106 MG/DL 70-105 H [id number] 21:04:00 Test Item Value Reference Range Interpretation Comments GLUBED (test code = GLUBED) 122 MG/DL 70-105 H [id number] 15:47:00 Test Item Value Reference Range Interpretation Comments GLUBED (test code = GLUBED) 114 MG/DL 70-105 H MISCELLANEOUS LAB SEND [id number] 11:46:00 Test Item Value Reference Range Interpretation Comments MISCELLANEOUS LAB SEND PATHOLOGY REVIEW REQ OUT (test code = MISCLABSO) Test: Procalcitonin, serumOrdering physician contact information: Dr Xiong [phone] test: [id number] 11:03:00 Test Item Value Reference Range Interpretation Comments GLUBED (test code = GLUBED) 120 MG/DL 70-105 H COMPREHENSIVE METABOLIC [id number] 10:43:00 Test Item Value Reference Range Interpretation [...] N PHOSPHATASE (test code = ALKP) VANCOMYCIN [id number] 10:42:00 Test Item Value Reference Range Interpretation Comments VANCOMYCIN TROUGH 16.2 ug/ml 10.0-20.0 N Please ref er to (test code = VANCT) Medicati on Administration Record (MAR) forlast d ose date and time. [id number] 05:41:00 Test Item Value Reference Range Interpretation Comments GLUBED (test code = GLUBED) 121 MG/DL 70-105 H [id number] 03:50:00 Test Item Value Reference Range Interpretation Comments GLUBED (test code = GLUBED) 96 MG/DL 70-105 N [id number] 20:35:00 Test Item Value Reference Range Interpretation Comments GLUBED (test code = GLUBED) 127 MG/DL 70-105 H [id number] 16:32:00 Test Item Value Reference Range Interpretation Comments GLUBED (test code = GLUBED) 116 MG/DL 70-105 H [id number] 11:29:00 Test Item Value Reference Range Interpretation Comments GLUBED (test code = GLUBED) 114 MG/DL 70-105 H URINALYSIS [id number] 08:26:00 Test Item Value Reference Range Interpretation [...] CRYSTALS (test code = CAOXU) CBC W/AUTO [id number] 07:32:00 Test Item Value Reference Range Interpretation [...] 0.0 x10 3/uL 0.0-0.1 N RECOLLECT - [id number] 06:14:00 Test Item Value Reference Range Interpretation Comments GLUBED (test code = GLUBED) 126 MG/DL 70-105 H COMPREHENSIVE METABOLIC [id number] 05:55:00 Test Item Value Reference Range Interpretation [...] 42-121 N PHOSPHATASE (test code = ALKP) [id number] 20:47:00 Test Item Value Reference Range Interpretation Comments GLUBED (test code = GLUBED) 127 MG/DL 70-105 H [id number] 15:48:00 Test Item Value Reference Range Interpretation Comments GLUBED (test code = GLUBED) 138 MG/DL 70-105 H - XR CHEST 1 [id number] 12:31:00 [facility] : 1975 Sex: FPatient Name: JERI VILLALOBOS [facility] Unit No: [id number] EXAMS: CPT: [id number] XR CHEST 1 V 68826 CHEST, 1 VIEW: HISTORY: f/u. Fevers COMPARISON: [...] Air Kerma (mGy): Trscr Dt/Tm: 03/26/2022 (1231) by: [email or web address] Orig Print D/T: S: 03/26/2022 (1234) BATCH NO: N/A Name: JERI VILLALOBOS [facility] Phys: [place] [address] [facility] : 1975 Age: 46 Sex: F [place], [place] [address] Loc: N.0385 1 Exam Date: 03/26/2022 Status: ADM IN PH: FAX: PAGE 1 Signed R [id number] 11:50:00 Test Item Value Reference Range Interpretation Comments GLUBED (test code = GLUBED) 165 MG/DL 70-105 H [id number] 06:35:00 Test Item Value Reference Range Interpretation Comments GLUBED (test code = GLUBED) 106 MG/DL 70-105 H BASIC METABOLIC [id number] 06:29:00 Test Item Value Reference Range Interpretation [...] mg/dL 8.5-10.5 N = CA) CBC W/AUTO [id number] 06:28:00 Test Item Value Reference Range Interpretation [...] = BA#) 0.0 x10 3/uL 0.0-0.1 N [id number] 20:02:00 Test Item Value Reference Range Interpretation Comments GLUBED (test code = GLUBED) 101 MG/DL 70-105 N [id number] 16:31:00 Test Item Value Reference Range Interpretation Comments GLUBED (test code = GLUBED) 141 MG/DL 70-105 H [id number] 11:51:00 Test Item Value Reference Range Interpretation Comments GLUBED (test code = GLUBED) 155 MG/DL 70-105 H [id number] 06:28:00 Test Item Value Reference Range Interpretation Comments GLUBED (test code = GLUBED) 138 MG/DL 70-105 H CBC W/AUTO [id number] 06:20:00 Test Item Value Reference Range Interpretation [...] 0.0 x10 3/uL 0.0-0.1 N BASIC METABOLIC [id number] 06:11:00 Test Item Value Reference Range Interpretation [...] code 8.8 mg/dL 8.5-10.5 N = CA) [id number] 20:18:00 Test Item Value Reference Range Interpretation Comments GLUBED (test code = GLUBED) 156 MG/DL 70-105 H [id number] 16:21:00 Test Item Value Reference Range Interpretation Comments GLUBED (test code = GLUBED) 120 MG/DL 70-105 H [id number] 11:13:00 Test Item Value Reference Range Interpretation Comments GLUBED (test code = GLUBED) 151 MG/DL 70-105 H BASIC METABOLIC [id number] 07:25:00 Test Item Value Reference Range Interpretation [...] mg/dL 8.5-10.5 N = CA) CBC W/AUTO [id number] 07:09:00 Test Item Value Reference Range Interpretation [...] = BA#) 0.0 x10 3/uL 0.0-0.1 N [id number] 06:45:00 Test Item Value Reference Range Interpretation Comments GLUBED (test code = GLUBED) 139 MG/DL 70-105 H [id number] 21:24:00 Test Item Value Reference Range Interpretation Comments GLUBED (test code = GLUBED) 118 MG/DL 70-105 H [id number] 16:08:00 Test Item Value Reference Range Interpretation Comments GLUBED (test code = GLUBED) 169 MG/DL 70-105 H - XR CHEST 1 [id number] 14:06:00 [facility] : 1975 Sex: FPatient Name: JERI VILLALOBOS Unit No: [id number] EXAMS: CPT: [id number] XR CHEST 1 V 68023 XR CHEST 1 VIEW HISTORY: tachycardia COMPARISON: 03/12/2022. FINDINGS: Cardiac silhouette is normal size. Pulmonaryvasculature is within normal limits. Mild haziness seen in the lung bases, particularly on the left.No large effusion seen. No pneumothorax. IMPRESSION: Bibasilar haziness particularly on the left similar to prior study. at 1406 Reportedand signed by: Anni Haas MD CC: Sally Garrison MD; Manuel Rose DO Technologist: Galdino Deleon Time: DAP (Gy m2): Air Kerma (mGy): Trscr Dt/Tm: 03/23/2022 (1406) by:[email or web address] Orig Print D/T: S: 03/23/2022 (1405) BATCH NO: N/A Name: JERI VILLALOBOS [facility] Phys: [id number] - Kentrell Garrison,Sally B [address] [place] : 1975 Age: 46 Sex: F [place], [place] [address] Loc: N.0385 1 Exam Date: 03/23/2022 Status: ADM IN PH: FAX: PAGE 1 Signed [id number] 13:49:00 Test Item Value Reference Range Interpretation Comments MAGNESIUM (test code = MAG) 1.8 mg/dl 1.8-2.5 N [id number] 13:49:00 Test Item Value Reference Range Interpretation Comments TROPONIN-I (test code = TROPI) <0.020 ng/mL 0.000-0.034 N [id number] 12:08:00 Test Item Value Reference Range Interpretation Comments GLUBED (test code = GLUBED) 143 MG/DL 70-105 H [id number] 05:56:00 Test Item Value Reference Range Interpretation Comments GLUBED (test code = GLUBED) 142 MG/DL 70-105 H BASIC METABOLIC [id number] 05:52:00 Test Item Value Reference Range Interpretation [...] mg/dL 8.5-10.5 N = CA) CBC W/AUTO [id number] 05:50:00 Test Item Value Reference Range Interpretation [...] = BA#) 0.0 x10 3/uL 0.0-0.1 N [id number] 20:04:00 Test Item Value Reference Range Interpretation Comments GLUBED (test code = GLUBED) 114 MG/DL 70-105 H [id number] 16:03:00 Test Item Value Reference Range Interpretation Comments GLUBED (test code = GLUBED) 104 MG/DL 70-105 N [id number] 11:10:00 Test Item Value Reference Range Interpretation Comments GLUBED (test code = GLUBED) 129 MG/DL 70-105 H CBC W/AUTO [id number] 07:01:00 Test Item Value Reference Range Interpretation [...] = BA#) 0.0 x10 3/uL 0.0-0.1 N [id number] 06:53:00 Test Item Value Reference Range Interpretation Comments GLUBED (test code = GLUBED) 104 MG/DL 70-105 N BASIC METABOLIC [id number] 06:37:00 Test Item Value Reference Range Interpretation [...] code 8.5 mg/dL 8.5-10.5 N = CA) [id number] 20:39:00 Test Item Value Reference Range Interpretation Comments GLUBED (test code = GLUBED) 97 MG/DL 70-105 N [id number] 16:19:00 Test Item Value Reference Range Interpretation Comments GLUBED (test code = GLUBED) 104 MG/DL 70-105 N - CONT INJ GS/BURNS/JJ/[id number] 11:43:00 [facility] : 1975 Sex: FPatient Name: JERI VILLALOBOS Unit No: [id number] EXAMS: CPT: [id number] CONT INJ GS/BURNS/JJ/GJ 10839 EXAM: XR ABDOMEN CONTRAST INJECTION 2 VIEWS DATE: 03/21/2022 10:13 AM INDICATION: Tube study. COMPARISON: Prior study dated 03/20/2022. TECHNIQUE: Pre and postcontrast abdominal radiographs, before and after contrast injection through gastrostomy tube. FINDINGS: The initial funds transfer clerk radiograph demonstrates gastrostomy tube in the left upper quadrant. Residual contrast noted throughout the colon. Appropriate opacification of the stomach after contrast injection through the gastrostomy tube compatible with appropriate positioning. No extravasation. No definite radiographic evidence of free peritoneal contrast. V isualized bowel gas pattern nonobstructive. Lung bases clear. No acute osseous abnormality or fracture. IMPRESSION: Gastrostomy tube appears appropriately positioned as above. at 1143 Reported and signed by: GLORIA DHALIWAL MD CC: Manuel Rose DO; Archie Sunshine MD Technologist: Logan Gill Fluoro Time: DAP (Gy m2): Air Kerma (mGy): Trscr Dt/Tm: 03/21/2022 (1143) by:[email or web address] Orig Print D/T: S: 03/21/2022 (1146) BATCH NO: N/A Name: JERI VILLALOBOS [facility] Phys: Archie Rider MD [address] [facility] : 1975 Age: 46 Sex: F [place] [address] Loc: N.0385 1 Exam Date: 03/21/2022 Status: ADM IN PH:FAX: PAGE 1 Signed [id number] 11:36:00 Test Item Value Reference Range Interpretation Comments GLUBED (test code = GLUBED) 102 MG/DL 70-105 N BASIC METABOLIC [id number] 06:31:00 Test Item Value Reference Range Interpretation [...] code 8.6 mg/dL 8.5-10.5 N = CA) [id number] 06:29:00 Test Item Value Reference Range Interpretation Comments GLUBED (test code = GLUBED) 83 MG/DL 70-105 N CBC W/AUTO [id number] 06:02:00 Test Item Value Reference Range Interpretation [...] = BA#) 0.0 x10 3/uL 0.0-0.1 N [id number] 04:02:00 Test Item Value Reference Range Interpretation Comments GLUBED (test code = GLUBED) 88 MG/DL 70-105 N [id number] 21:27:00 Test Item Value Reference Range Interpretation Comments GLUBED (test code = GLUBED) 86 MG/DL 70-105 N [id number] 17:12:00 Test Item Value Reference Range Interpretation Comments GLUBED (test code = GLUBED) 80 MG/DL 70-105 N - CONT INJ GS/BURNS/JJ/[id number] 14:19:00 [facility] : 1975 Sex: FPatient Name: JERI VILLALOBOS Unit No: [id number] EXAMS: CPT: [id number] CONT INJ GS/BURNS/JJ/GJ 15468 EXAM:XR ABDOMEN 1 VIEW DATE: 03/20/2022 12:22 PM INDICATION: NG tube ADDITIONAL INFORMATION: None. COMPARISON: Abdominal radiograph on 03/11/2022. TECHNIQUE: Limited AP view of the abdomen for tube placement assessment. Contrast instilled through the PEG tube during the exam. Number of images: 1. FINDINGS: Feeding tube: Gastrostomy tube in expected position. Instillation of contrast reveals an intraluminalposition without evidence of extravasation. Enteric suction tube: None. Other tubes, lines and hardware: None. Abdomen: There is a nonobstructive bowel gas pattern. IMPRESSION: Gastrostomy tube in adequate position with no extravasation identified. Nonobstructive bowel gas pattern. ElectronicallySigned by Yung Abel MD on 03/20/2022 at 1419 Reported and signed by: Yung Abel MD CC: Manuel Stewart DO; Archie Sunshine MD Technologist: Oly Deleon Time: DAP (Gy m2): Air Kerma (mGy): TrscrDt/Tm: 03/20/2022 (5597) by:[email or web address] Orig Print D/T: S: 03/20/2022 (4737) BATCH NO: N/A Name: JERI VILLALOBOS [facility] Phys: [id number] - Archie Sunshine MD [address] [facility] : 1975 Age: 46 Sex: F [address]: [id number] Loc: N.0385 1 Exam Date: 03/20/2022 Status: ADM IN PH: FAX: PAGE 1 Signed [id number] 11:21:00 Test Item Value Reference Range Interpretation Comments GLUBED (test code = GLUBED) 100 MG/DL 70-105 N BASIC METABOLIC [id number] 09:13:00 Test Item Value Reference Range Interpretation [...] code 8.8 mg/dL 8.5-10.5 N = CA) [id number] 09:13:00 Test Item Value Reference Range Interpretation Comments PHOSPHOROUS (test code = PHOS) 3.5 mg/dl 2.5-4.6 N [id number] 09:13:00 Test Item Value Reference Range Interpretation Comments MAGNESIUM (test code = MAG) 2.1 mg/dl 1.8-2.5 N CBC W/AUTO [id number] 08:42:00 Test Item Value Reference Range Interpretation [...] = BA#) 0.0 x10 3/uL 0.0-0.1 N [id number] 06:38:00 Test Item Value Reference Range Interpretation Comments GLUBED (test code = GLUBED) 115 MG/DL 70-105 H [id number] 21:09:00 Test Item Value Reference Range Interpretation Comments GLUBED (test code = GLUBED) 115 MG/DL 70-105 H UR SODIUM [id number] 17:49:00 Test Item Value Reference Range Interpretation Comments UR SODIUM RANDOM 43 mmol/L No Normal R julia (test code = MACKENZIE) establishe d. UR CHLORIDE [id number] 17:49:00 Test Item Value Reference Range Interpretation Comments UR CHLORIDE RANDOM (test code = 22 mmol/L 15-300 N CLU) UR CREATININE [id number] 17:49:00 Test Item Value Reference Range Interpretation Comments UR CREATININE RANDOM (test code = 135 mg/dL 40-300 N CREATU) URINALYSIS [id number] 17:48:00 Test Item Value Reference Range Interpretation [...] NONE SEEN /HPF NONE SEEN = YEASTU) [id number] 16:41:00 Test Item Value Reference Range Interpretation Comments GLUBED (test code = GLUBED) 87 MG/DL 70-105 N - CT CHEST W/O [id number] 15:49:00 [facility] : 1975 Sex: FPatient Name: JERI VILLALOBOS [facility] Unit No: [id number] EXAMS: CPT: [id number] CT CHEST W/O CONTRAST [address]20 TECHNIQUE: CT scan of the chest performed from the thoracic inlet through the upper abdomen without the administration of IV contrast. DLP: 409 mGy/cm. The study was performed with radiation dose optimization per ACR practice guidelines and addiction counselor's recommendations which includes: automated exposure control, adjustment [...] seen although evaluation is limited without IV contrast. Bilateral breast implants are intact. The visualized upper abdomen has unremarkable noncontrast appearance. No acute or aggressive bony lesion identified. IMPRESSION: Significant improvement of the leftlower lobe consolidation and bibasilar atelectasis. at 1549 Reported and signed by: Ryan Cheney MD CC: Ruiz Vaughn MD; Manuel Rose DOTechnologist: CELESTINE Stubbs CTDI: 11.16 DLP: 408.91 Trscr Dt/Tm: 03/19/2022 (9969) by:Lyly Orig Print D/T: S: 03/19/2022 (0157) BATCH NO: N/A Name: JERI VILLALOBOS [facility] Phys: Ruiz Wolfe MD [address] [facility] : 1975 Age: 46 Sex: F [address]: [id number] Loc: N.0385 1 Exam Date: 03/19/2022 Status: ADM IN PH: FAX: PAGE 1 Signed [id number] 11:40:00 Test Item Value Reference Range Interpretation Comments GLUBED (test code = GLUBED) 138 MG/DL 70-105 H [id number] 05:46:00 Test Item Value Reference Range Interpretation Comments GLUBED (test code = GLUBED) 112 MG/DL 70-105 H BASIC METABOLIC [id number] 05:04:00 Test Item Value Reference Range Interpretation [...] mg/dL 8.5-10.5 N = CA) CBC W/AUTO [id number] 04:55:00 Test Item Value Reference Range Interpretation [...] = BA#) 0.0 x10 3/uL 0.0-0.1 N [id number] 20:55:00 Test Item Value Reference Range Interpretation Comments GLUBED (test code = GLUBED) 102 MG/DL 70-105 N [id number] 16:05:00 Test Item Value Reference Range Interpretation Comments GLUBED (test code = GLUBED) 95 MG/DL 70-105 N BASIC METABOLIC [id number] 07:53:00 Test Item Value Reference Range Interpretation [...] mg/dL 8.5-10.5 N = CA) CBC W/AUTO [id number] 07:36:00 Test Item Value Reference Range Interpretation [...] BA#) 0.0 x10 3/uL 0.0-0.1 N DIFFERENTIAL [id number] 07:36:00 Test Item Value Reference Range Interpretation Comments PLATELET MORPHOLOGY (test code = Normal NORMAL PLTMORPH) [id number] 06:50:00 Test Item Value Reference Range Interpretation Comments GLUBED (test code = GLUBED) 114 MG/DL 70-105 H [id number] 00:10:00 Test Item Value Reference Range Interpretation Comments GLUBED (test code = GLUBED) 117 MG/DL 70-105 H BASIC METABOLIC [id number] 13:11:00 Test Item Value Reference Range Interpretation [...] mg/dL 8.5-10.5 N = CA) CBC W/AUTO [id number] 13:02:00 Test Item Value Reference Range Interpretation [...] = BA#) 0.1 x10 3/uL 0.0-0.1 N [id number] 05:54:00 Test Item Value Reference Range Interpretation Comments GLUBED (test code = GLUBED) 130 MG/DL 70-105 H [id number] 01:01:00 Test Item Value Reference Range Interpretation Comments GLUBED (test code = GLUBED) 135 MG/DL 70-105 H [id number] 18:22:00 Test Item Value Reference Range Interpretation Comments GLUBED (test code = GLUBED) 121 MG/DL 70-105 H [id number] 12:16:00 Test Item Value Reference Range Interpretation Comments GLUBED (test code = GLUBED) 118 MG/DL 70-105 H [id number] 06:15:00 Test Item Value Reference Range Interpretation Comments GLUBED (test code = GLUBED) 117 MG/DL 70-105 H [id number] 20:47:00 Test Item Value Reference Range Interpretation Comments GLUBED (test code = GLUBED) 107 MG/DL 70-105 H [id number] 15:49:00 Test Item Value Reference Range Interpretation Comments GLUBED (test code = GLUBED) 118 MG/DL 70-105 H [id number] 13:23:00 Test Item Value Reference Range Interpretation Comments GLUBED (test code = GLUBED) 135 MG/DL 70-105 H [id number] 08:39:00 Test Item Value Reference Range Interpretation Comments GLUBED (test code = GLUBED) 120 MG/DL 70-105 H BASIC METABOLIC [id number] 07:52:00 Test Item Value Reference Range Interpretation [...] mg/dL 8.5-10.5 N = CA) CBC W/AUTO [id number] 07:37:00 Test Item Value Reference Range Interpretation [...] = BA#) 0.1 x10 3/uL 0.0-0.1 N [id number] 06:16:00 Test Item Value Reference Range Interpretation Comments GLUBED (test code = GLUBED) 128 MG/DL 70-105 H [id number] 20:22:00 Test Item Value Reference Range Interpretation Comments GLUBED (test code = GLUBED) 120 MG/DL 70-105 H [id number] 14:13:00 Test Item Value Reference Range Interpretation Comments GLUBED (test code = GLUBED) 136 MG/DL 70-105 H BASIC METABOLIC [id number] 09:20:00 Test Item Value Reference Range Interpretation [...] mg/dL 8.5-10.5 N = CA) CBC W/AUTO [id number] 08:59:00 Test Item Value Reference Range Interpretation [...] = BA#) 0.0 x10 3/uL 0.0-0.1 N [id number] 05:46:00 Test Item Value Reference Range Interpretation Comments GLUBED (test code = GLUBED) 149 MG/DL 70-105 H [id number] 20:39:00 Test Item Value Reference Range Interpretation Comments GLUBED (test code = GLUBED) 115 MG/DL 70-105 H [id number] 17:26:00 Test Item Value Reference Range Interpretation Comments GLUBED (test code = GLUBED) 125 MG/DL 70-105 H BASIC METABOLIC [id number] 12:37:00 Test Item Value Reference Range Interpretation [...] mg/dL 8.5-10.5 N = CA) CBC W/AUTO [id number] 12:25:00 Test Item Value Reference Range Interpretation [...] 0.0 x10 3/uL 0.0-0.1 N 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 [id number] 12:16:00 Test Item Value Reference Range Interpretation Comments GLUBED (test code = GLUBED) 120 MG/DL 70-105 H LACTIC [id number] 11:58:00 Test Item Value Reference Range Interpretation Comments LACTIC ACID (test code = LACT) 1.5 mmol/L 0.5-2.0 N [id number] 06:32:00 Test Item Value Reference Range Interpretation Comments GLUBED (test code = GLUBED) 142 MG/DL 70-105 H [id number] 04:46:00 Test Item Value Reference Range Interpretation Comments GLUBED (test code = GLUBED) 133 MG/DL 70-105 H [id number] 21:12:00 Test Item Value Reference Range Interpretation Comments GLUBED (test code = GLUBED) 143 MG/DL 70-105 H [id number] 16:54:00 Test Item Value Reference Range Interpretation Comments GLUBED (test code = GLUBED) 118 MG/DL 70-105 H [id number] 12:48:00 Test Item Value Reference Range Interpretation Comments GLUBED (test code = GLUBED) 137 MG/DL 70-105 H - XR CHEST 1 [id number] 07:19:00 [facility] 1975 Sex: FPatient Name: JERI VILLALOBOS Unit No: [id number] EXAMS: CPT: [id number] XR CHEST 1 V 28601 Comparison study: 03/09/2022 History: fu pneumonia CHEST [...] Trscr Dt/Tm: 03/12/2022 (718) by:[email or web address] Orig Print D/T:S: 03/12/2022 (0722) BATCH NO: N/A Name: JERI VILLALOBOS [facility] Phys: Re Wolfe MD [address] : 1975 Age: 46 Sex: F [place], [place] [address] Loc: N.0385 1 Exam Date: 03/12/2022 Status: ADM IN PH: FAX: PAGE 1 Signed ReportCBC W/AUTO [id number] 07:06:00 Test Item Value Reference Range Interpretation [...] (test code = ADEQUATE ADEQUATE PLTEST) DIFFERENTIAL [id number] 07:06:00 Test Item Value Reference Range Interpretation Comments PLATELET MORPHOLOGY (test code = Normal NORMAL PLTMORPH) BASIC METABOLIC [id number] 06:45:00 Test Item Value Reference Range Interpretation [...] code 9.9 mg/dL 8.5-10.5 N = CA) [id number] 06:45:00 Test Item Value Reference Range Interpretation Comments MAGNESIUM (test code = MAG) 2.4 mg/dl 1.8-2.5 N [id number] 06:32:00 Test Item Value Reference Range Interpretation Comments GLUBED (test code = GLUBED) 125 MG/DL 70-105 H [id number] 21:02:00 Test Item Value Reference Range Interpretation Comments GLUBED (test code = GLUBED) 125 MG/DL 70-105 H [id number] 17:37:00 Test Item Value Reference Range Interpretation Comments GLUBED (test code = GLUBED) 119 MG/DL 70-105 H - XR ABDOMEN [id number] 12:22:00 [facility] : 1975 Sex: FPatient Name: JERI VILLALOBOS Unit No: [id number] EXAMS: CPT: [id number] XR ABDOMEN 1V 79724 ABDOMEN RADIOGRAPH, 1 VIEW: Supine. HISTORY: DISLODGED [...] (1225) BATCH NO: N/A Name: JERI VILLALOBOS [facility] Phys: Brittney Zamarripa DO [address] [facility] : 1975 Age: 46 Sex: F [place], [place] [address] Loc: N.0385 1 Exam Date: 03/11/2022 Status: ADM IN PH: FAX: PAGE 1 Signed [id number] 12:21:00 Test Item Value Reference Range Interpretation Comments GLUBED (test code = GLUBED) 124 MG/DL 70-105 H [id number] 04:22:00 Test Item Value Reference Range Interpretation Comments GLUBED (test code = GLUBED) 109 MG/DL 70-105 H [id number] 22:04:00 Test Item Value Reference Range Interpretation Comments GLUBED (test code = GLUBED) 117 MG/DL 70-105 H [id number] 15:19:00 Test Item Value Reference Range Interpretation Comments GLUBED (test code = GLUBED) 126 MG/DL 70-105 H [id number] 10:52:00 Test Item Value Reference Range Interpretation Comments GLUBED (test code = GLUBED) 141 MG/DL 70-105 H [id number] 05:53:00 Test Item Value Reference Range Interpretation Comments GLUBED (test code = GLUBED) 151 MG/DL 70-105 H [id number] 21:42:00 Test Item Value Reference Range Interpretation Comments GLUBED (test code = GLUBED) 131 MG/DL 70-105 H [id number] 15:26:00 Test Item Value Reference Range Interpretation Comments GLUBED (test code = GLUBED) 136 MG/DL 70-105 H [id number] 11:43:00 Test Item Value Reference Range Interpretation Comments GLUBED (test code = GLUBED) 137 MG/DL 70-105 H - XR CHEST 1 [id number] 07:21:00 [facility] : 1975 Sex: FPatient Name: JERI VILLALOBOS Unit No: [id number] EXAMS: CPT: [id number] XR CHEST 1 V 44376 CHEST 1 VIEW: COMPARISON: 03/04/2022 CLINICAL HISTORY: Follow-up pneumonia FINDINGS: Left [...] Cheney MD CC: Ruiz Vaughn MD; Manuel Nesbittqi Technologist: Virgilio Muñoz Time: DAP (Gy m2): Air Kerma (mGy): Trscr Dt/Tm: 03/09/2022 (07) by:Lyly Orig Print D/T: S: 03/09/2022 (0724) BATCH NO: N/A Name: JERI VILLALOBOS [facility] Phys: Ruiz Wolfe MD [address] [facility] : 1975 Age: 46 Sex: F [place], [place] [address] Loc: N.0385 1 Exam Date: 03/09/2022 Status: ADM IN PH: FAX: PAGE 1 Signed [id number] 06:09:00 Test Item Value Reference Range Interpretation Comments GLUBED (test code = GLUBED) 160 MG/DL 70-105 H [id number] 20:33:00 Test Item Value Reference Range Interpretation Comments GLUBED (test code = GLUBED) 115 MG/DL 70-105 H [id number] 15:34:00 Test Item Value Reference Range Interpretation Comments GLUBED (test code = GLUBED) 99 MG/DL 70-105 N [id number] 12:13:00 Test Item Value Reference Range Interpretation Comments GLUBED (test code = GLUBED) 112 MG/DL 70-105 H CBC W/AUTO [id number] 06:41:00 Test Item Value Reference Range Interpretation [...] 0.1 x10 3/uL 0.0-0.1 N BASIC METABOLIC [id number] 06:23:00 Test Item Value Reference Range Interpretation [...] code 9.4 mg/dL 8.5-10.5 N = CA) [id number] 06:16:00 Test Item Value Reference Range Interpretation Comments GLUBED (test code = GLUBED) 114 MG/DL 70-105 H [id number] 20:48:00 Test Item Value Reference Range Interpretation Comments GLUBED (test code = GLUBED) 119 MG/DL 70-105 H [id number] 16:26:00 Test Item Value Reference Range Interpretation Comments GLUBED (test code = GLUBED) 132 MG/DL 70-105 H [id number] 13:48:00 Test Item Value Reference Range Interpretation Comments GLUBED (test code = GLUBED) 126 MG/DL 70-105 H CBC W/AUTO [id number] 10:41:00 Test Item Value Reference Range Interpretation [...] BA#) 0.0 x10 3/uL 0.0-0.1 N DIFFERENTIAL [id number] 10:41:00 Test Item Value Reference Range Interpretation Comments PLATELET MORPHOLOGY (test code = Normal NORMAL PLTMORPH) BASIC METABOLIC [id number] 07:30:00 Test Item Value Reference Range Interpretation [...] code 8.7 mg/dL 8.5-10.5 N = CA) [id number] 05:19:00 Test Item Value Reference Range Interpretation Comments GLUBED (test code = GLUBED) 109 MG/DL 70-105 H [id number] 17:24:00 Test Item Value Reference Range Interpretation Comments GLUBED (test code = GLUBED) 118 MG/DL 70-105 H BASIC METABOLIC [id number] 09:47:00 Test Item Value Reference Range Interpretation [...] mg/dL 8.5-10.5 N = CA) CBC W/AUTO [id number] 09:00:00 Test Item Value Reference Range Interpretation [...] = BA#) 0.1 x10 3/uL 0.0-0.1 N [id number] 06:10:00 Test Item Value Reference Range Interpretation Comments GLUBED (test code = GLUBED) 118 MG/DL 70-105 H [id number] 01:06:00 Test Item Value Reference Range Interpretation Comments GLUBED (test code = GLUBED) 110 MG/DL 70-105 H [id number] 15:52:00 Test Item Value Reference Range Interpretation Comments GLUBED (test code = GLUBED) 121 MG/DL 70-105 H [id number] 11:55:00 Test Item Value Reference Range Interpretation Comments GLUBED (test code = GLUBED) 131 MG/DL 70-105 H [id number] 06:06:00 Test Item Value Reference Range Interpretation Comments GLUBED (test code = GLUBED) 119 MG/DL 70-105 H CBC W/AUTO [id number] 05:35:00 Test Item Value Reference Range Interpretation [...] 0.0 x10 3/uL 0.0-0.1 N BASIC METABOLIC [id number] 05:20:00 Test Item Value Reference Range Interpretation [...] code 8.5 mg/dL 8.5-10.5 N = CA) [id number] 20:55:00 Test Item Value Reference Range Interpretation Comments GLUBED (test code = GLUBED) 100 MG/DL 70-105 N [id number] 16:42:00 Test Item Value Reference Range Interpretation Comments GLUBED (test code = GLUBED) 117 MG/DL 70-105 H [id number] 11:49:00 Test Item Value Reference Range Interpretation Comments GLUBED (test code = GLUBED) 140 MG/DL 70-105 H - XR CHEST 1 [id number] 08:08:00 [facility] [place] : 1975 Sex: FPatient Name: JERI VILLALOBOS Unit No: [id number] EXAMS: CPT: [id number] XR CHEST 1 V 47604 COMPARISON: 03/01/2022 FINDINGS: Atelectasis or pneumonia has [...] m2): Air Kerma (mGy): Trscr Dt/Tm: 03/04/2022 (807) by:[email or web address] Orig Print D/T: S: 03/04/2022 (810) BATCH NO: N/A Name: JERI VILLALOBOS [facility] Phys: Ruiz Wolfe MD [address] [facility] : 1975 Age: 46 Sex: F [place], [place] [address] Loc: N.0385 1 Exam Date: 03/04/2022 Status: ADM IN PH: FAX: PAGE 1 Signed [id number] 05:53:00 Test Item Value Reference Range Interpretation Comments GLUBED (test code = GLUBED) 89 MG/DL 70-105 N [id number] 20:59:00 Test Item Value Reference Range Interpretation Comments GLUBED (test code = GLUBED) 131 MG/DL 70-105 H [id number] 15:42:00 Test Item Value Reference Range Interpretation Comments GLUBED (test code = GLUBED) 112 MG/DL 70-105 H [id number] 12:47:00 Test Item Value Reference Range Interpretation Comments GLUBED (test code = GLUBED) 128 MG/DL 70-105 H BASIC METABOLIC [id number] 08:10:00 Test Item Value Reference Range Interpretation [...] mg/dL 8.5-10.5 N = CA) CBC W/AUTO [id number] 08:09:00 Test Item Value Reference Range Interpretation [...] = BA#) 0.0 x10 3/uL 0.0-0.1 N [id number] 06:19:00 Test Item Value Reference Range Interpretation Comments GLUBED (test code = GLUBED) 111 MG/DL 70-105 H [id number] 20:56:00 Test Item Value Reference Range Interpretation Comments GLUBED (test code = GLUBED) 138 MG/DL 70-105 H [id number] 15:58:00 Test Item Value Reference Range Interpretation Comments GLUBED (test code = GLUBED) 137 MG/DL 70-105 H [id number] 12:19:00 Test Item Value Reference Range Interpretation Comments GLUBED (test code = GLUBED) 149 MG/DL 70-105 H [id number] 05:55:00 Test Item Value Reference Range Interpretation Comments GLUBED (test code = GLUBED) 114 MG/DL 70-105 H [id number] 21:40:00 Test Item Value Reference Range Interpretation Comments GLUBED (test code = GLUBED) 101 MG/DL 70-105 N [id number] 16:13:00 Test Item Value Reference Range Interpretation Comments GLUBED (test code = GLUBED) 126 MG/DL 70-105 H [id number] 11:40:00 Test Item Value Reference Range Interpretation Comments GLUBED (test code = GLUBED) 114 MG/DL 70-105 H - XR CHEST 1 [id number] 08:41:00 [facility] : 1975 Sex: FPatient Name: JERI VILLALOBOS Unit No: [id number] EXAMS: CPT: [id number] XR CHEST 1 V 84345 EXAM: XR CHEST 1 VIEW DATE: 03/01/2022 5:00 AM INDICATION: Follow-up pneumonia COMPARISON: Chest radiograph on 02/22/[address] chest on 02/25/2022. TECHNIQUE: AP chest. FINDINGS: Lines, tubes and hardware: An tracheostomy appliance is seen above the ketty. Lungs and pleura: Left lower lobe infiltrates have increased when compared to the prior chest radiograph on [...] Yung Abel MD CC: Ruiz Vaughn MD; Merlin Maravilla DO Technologist: Logan Gill Fluoro Time: DAP (Gy m2): Air Kerma (mGy): Trscr Dt/Tm: 03/01/2022 (0841) by:[email or web address] Orig Print D/T: S: 03/01/2022 (0844) BATCH NO: N/A Name: JERI VILLALOBOS [facility] Phys: Ruiz Wolfe MD [address] : 1975 Age: 46 Sex: F [place], [place] [address] Loc: N.0385 1 Exam Date: 03/01/2022 Status: ADM IN PH: FAX: PAGE 1 Signed ReportBASIC METABOLIC [id number] 07:31:00 Test Item Value Reference Range Interpretation [...] mg/dL 8.5-10.5 N = CA) CBC W/AUTO [id number] 07:11:00 Test Item Value Reference Range Interpretation [...] = BA#) 0.0 x10 3/uL 0.0-0.1 N [id number] 06:14:00 Test Item Value Reference Range Interpretation Comments GLUBED (test code = GLUBED) 116 MG/DL 70-105 H [id number] 20:06:00 Test Item Value Reference Range Interpretation Comments GLUBED (test code = GLUBED) 103 MG/DL 70-105 N [id number] 17:02:00 Test Item Value Reference Range Interpretation Comments GLUBED (test code = GLUBED) 95 MG/DL 70-105 N [id number] 11:29:00 Test Item Value Reference Range Interpretation Comments GLUBED (test code = GLUBED) 137 MG/DL 70-105 H BASIC METABOLIC [id number] 07:06:00 Test Item Value Reference Range Interpretation [...] mg/dL 8.5-10.5 N = CA) CBC W/AUTO [id number] 06:47:00 Test Item Value Reference Range Interpretation [...] = BA#) 0.0 x10 3/uL 0.0-0.1 N [id number] 06:12:00 Test Item Value Reference Range Interpretation Comments GLUBED (test code = GLUBED) 135 MG/DL 70-105 H [id number] 00:40:00 Test Item Value Reference Range Interpretation Comments GLUBED (test code = GLUBED) 105 MG/DL 70-105 N [id number] 21:06:00 Test Item Value Reference Range Interpretation Comments GLUBED (test code = GLUBED) 103 MG/DL 70-105 N CBC W/AUTO [id number] 11:26:00 Test Item Value Reference Range Interpretation [...] = EO#) x10 3/uL 0.0-0.5 RECOLLECT CLOTTEDWBC [id number] 11:26:00 Test Item Value Reference Range Interpretation [...] NONE SEEN A POLC) RECOLLECT CLOTTEDCBC W/AUTO [id number] 08:54:00 Test Item Value Reference Range Interpretation Comments WHITE BLOOD CELL Test not 3.2-11.5 N Previously (test code = WBC) performed x10 reported result: 3/uL 10.2 x10\S\3/uLEdite d by: [id number] on 02/27/22:851~~ Corrected Repor t ~~Reason (required):CLOT TE D RED BLOOD CELL (test Test not 3.70-5.10 L Previou sly code = RBC) performed reported result : x10(6)/m 3.59 x10(6)/mEdited by: [id number] on 02/27/22:851~~ Corrected Repor t ~~Reason (required):CLOT TE D HEMOGLOBIN (test code Test not 12.0-15.0 L Previo usly = HGB) performed g/dL reported resu lt: 10.3 g/dLEdited by: [id number] on 02/27/22:851~~ Corrected Repor t ~~Reason (required):CLOT TE D HEMATOCRIT (test code Test not 35.7-44.8 L Previo usly = HCT) performed % reported result : 32.5 %Edited by : [id number] on 02/27/22:0853~~ Corrected Repor t ~~Reason (required):CLOT TE D MEAN CELL VOLUME Test not 80-100 N Previously (test code = MCV) performed fL reported r esult: 91 fLEdited by: [id number] on 02/27/22:0853~~ Corrected Repor t ~~Reason (required):CLOT TE D MEAN CELL HGB (test Test not 26.2-33.8 N Previous ly code = MCH) performed pg reported result : 28.7 pgEdited b y: [id number] on 02/27/22:0853~~ Corrected Repor t ~~Reason (required):CLOT TE D MEAN CELL HGB Test not 30.0-34.0 N Previously CONCENTRATION (test performed g/dL report ed result: code = MCHC) 31.7 g/dLEdited by: [id number] on 02/27/22:53~~ Corrected Repor t ~~Reason (required):CLOT TE D RED CELL DISTRIBUTION Test not 11.3-14.5 WIDTH (test code = performed % RDW) PLATELET COUNT (test Test not 130-408 code = PLT) performed x10 3/uL MEAN PLATELET VOLUME Test not 8.6-12.6 N Previou sly (test code = MPV) performed fL reported r esult: 11.6 fLEdited b y: [id number] on 02/27/22:0854~~ Corrected Repor t ~~Reason (required):CLOT [...] (test code = PLTEST) performed BASIC METABOLIC [id number] 08:53:00 Test Item Value Reference Range Interpretation [...] code 8.6 mg/dL 8.5-10.5 N = CA) [id number] 06:09:00 Test Item Value Reference Range Interpretation Comments GLUBED (test code = GLUBED) 127 MG/DL 70-105 H [id number] 20:53:00 Test Item Value Reference Range Interpretation Comments GLUBED (test code = GLUBED) 117 MG/DL 70-105 H [id number] 17:43:00 Test Item Value Reference Range Interpretation Comments GLUBED (test code = GLUBED) 92 MG/DL 70-105 N [id number] 12:05:00 Test Item Value Reference Range Interpretation Comments GLUBED (test code = GLUBED) 132 MG/DL 70-105 H BASIC METABOLIC [id number] 10:55:00 Test Item Value Reference Range Interpretation [...] mg/dL 8.5-10.5 L = CA) CBC W/AUTO [id number] 10:42:00 Test Item Value Reference Range Interpretation [...] = BA#) 0.1 x10 3/uL 0.0-0.1 N [id number] 06:15:00 Test Item Value Reference Range Interpretation Comments GLUBED (test code = GLUBED) 115 MG/DL 70-105 H [id number] 03:49:00 Test Item Value Reference Range Interpretation Comments CREATININE (test code = CREAT) 0.61 mg/dL 0.44-1.03 N - DUP VEIN [id number] 23:43:00 [facility] : 1975 Sex: FPatient Name: JERI VILLALOBOS Unit No: [id number] EXAMS: CPT: [id number] DUP VEIN [place] [address] BILATERAL LOWER EXTREMITY VENOUS DOPPLER AND COLOR [...] of the right and left lower extremities. breed to wean production technician: Wilman Phoenix RVT TECHNICAL NOTES: 1. [...] and signed by: LISANDRA PADRON MD Name: FABIJERI [facility] Phys: SIDFA.01 - [place],Manuel A D [address] [facility] : 1975 Age: 46 Sex: F [address]: [id number] Loc: N.0385 1 Exam Date: 02/24/2022 Status: ADM IN PH: FAX: PAGE 1 Signed Report (CONTINUED) Patient Name: JERI VILLALOBOS Unit No: [id number] EXAMS: CPT: [id number] DUP VEIN [place] [address] (Continued) CC: Manuel Rose DO Technologist: Wilman Stubbs Probe:Trscr Dt/Tm: 02/25/2022 (2343) by:BasilHR Orig Print D/T: S: 02/25/2022 (2346) BATCH NO: N/A Name:JERI VILLALOBOS [facility] Phys: HETALFA. - [place],Manuel Grant [address] : 1975 Age: 46 Sex: F [place], [place] [address] Loc: N.0385 1 Exam Date: 02/24/2022 Status: ADM IN PH: FAX: PAGE 2 Signed [id number] 20:34:00 Test Item Value Reference Range Interpretation Comments GLUBED (test code = GLUBED) 128 MG/DL 70-105 H [id number] 16:31:00 Test Item Value Reference Range Interpretation Comments GLUBED (test code = GLUBED) 116 MG/DL 70-105 H [id number] 11:44:00 Test Item Value Reference Range Interpretation Comments GLUBED (test code = GLUBED) 113 MG/DL 70-105 H - CT CHEST W/O [id number] 11:33:00 [facility] : 1975 Sex: FPatient Name: JERI VILLALOBOS Unit No: [id number] EXAMS: CPT: [id number] CT CHEST W/O CONTRAST 55510 EXAM: CT CHEST WITHOUT CONTRAST DATE: 02/25/2022 5:26 PM [...] IV contrast: None. 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 Lines, tubes and hardware: A tracheostomy [...] abdomen is otherwise unremarkable. Bones: No acute abnormality.Small anterior endplate osteophytes are seen in the upper thoracic spine. The disc spaces are otherwise preserved. Name: JERI VILLALOBOS [facility] Phys: [id number] - [place],Manuel A D [address] : 1975 Age: 46 Sex: F [place], [place] [address] Loc: N.0385 1 Exam Date: 02/25/2022 Status: ADM IN PH: FAX: PAGE 1 Signed Report (CONTINUED) Patient Name: JERI VILLALOBOS Unit No: [id number] EXAMS: CPT: [id number] CT CHEST W/O CONTRAST 75380 (Continued) Soft tissues: Bilateral breast implants are seen. IMPRESSION: Extensive opacities [...] S: 02/25/2022 (1136) BATCH NO: N/A Name: FABIJERI [facility] Phys: SIDFA. Manuel Rose [address] : 1975 Age: 46 Sex: F [place], [place] [address] Loc: N.0385 1Exa Date: 02/25/2022 Status: ADM IN PH: FAX: PAGE 2 Signed Report- DUP VEIN [id number] 11:14:00 [facility] 1975 Sex: FPatient Name: FABIJERI Horton Unit No: [id number] EXAMS: CPT: [id number] DUP VEIN [place] [address] EXAM: US BILATERAL UPPER EXTREMITY VENOUS DOPPLER DATE: 02/25/2022 5:23 PM INDICATION: Upper extremity swelling ADDITIONAL INFORMATION: None. COMPARISON: Right upper extremity venous ultrasound on 02/14/2022 TECHNIQUE: Multiplanar grayscale, color Doppler, and spectral Doppler ultrasound of the bilateral upper extremity veins. FINDINGS: Right Upper Extremity Veins: Internal Jugular: Evaluation of the right proximal jugular vein is limited due to obscuration by the tracheostomy appliance. The remaining portions of the jugular vein are unremarkable. Subclavian: Patent. Axillary: Patent. Brachial: Patent. Basilic: A line is present within the basilic vein. Small amount of nonocclusive thrombus is seen surrounding theline. Cephalic: Patent. Left Upper Extremity Veins: Internal Jugular: Evaluation of the proximal jugular vein is limited due to obscuration by the tracheostomy appliance. The remaining portions of the i nternal jugular vein are patent. Subclavian: Patent. Axillary: Patent. Brachial: Patent. Basilic: Patent. Cephalic: Patent. Other: None. IMPRESSION: No deep venous thrombosis (DVT) in the bilateral upper extremities. Partially occlusive superficial vein thrombosis surrounding the right basilic venous line. at 1114 Reported and signed by: Yung Abel MD Name: JERI VILLALOBOS [facility] Phys: HETAL Manuel Rose [address] [facility] 1975 Age: 46 Sex: F [place] [address] Loc: N.0385 1 Exam Date: 02/25/2022 Status: ADM IN PH: FAX: PAGE 1 Signed Report (CONTINUED) Patient Name: JERI VILLALOBOS UnitNo: [id number] EXAMS: CPT: [id number] DUP VEIN [place] [address] (Continued) CC: Manuel Rose DO Technologist: Wilman Stubbs Probe: Mj Dt/Tm: 02/25/2022 (1114) by:[email or web address] Orig Print D/T: S: 02/25/2022 (1117) BATCH NO: N/A Name: JERI VILLALOBOS [facility] Phys: SID. - [place],Manuel A D [address] [facility] : 1975 Age: 46 Sex: F [place] [address] Loc: N.0385 1 Exam Date: 02/25/2022 Status: ADM IN PH: FAX: PAGE 2 Signed ReportBASI METABOLIC [id number] 08:25:00 Test Item Value Reference Range Interpretation [...] mg/dL 8.5-10.5 L = CA) REDRAWCBC W/AUTO [id number] 07:31:00 Test Item Value Reference Range Interpretation [...] 10.4 fL 8.6-12.6 N = MPV) WBC [id number] 07:31:00 Test Item Value Reference Range Interpretation [...] 0.00 10 3/uL 0.00-0.00 N = OCT#) [id number] 05:47:00 Test Item Value Reference Range Interpretation Comments GLUBED (test code = GLUBED) 135 MG/DL 70-105 H [id number] 20:40:00 Test Item Value Reference Range Interpretation Comments GLUBED (test code = GLUBED) 121 MG/DL 70-105 H [id number] 17:03:00 Test Item Value Reference Range Interpretation Comments GLUBED (test code = GLUBED) 113 MG/DL 70-105 H VANCOMYCIN [id number] 13:43:00 Test Item Value Reference Range Interpretation Comments VANCOMYCIN TROUGH 15.9 ug/ml 10.0-20.0 N Please ref er to (test code = VANCT) Medicati on Administration Record (MAR) forlast d ose date and time. [id number] 11:50:00 Test Item Value Reference Range Interpretation Comments GLUBED (test code = GLUBED) 139 MG/DL 70-105 H BASIC METABOLIC [id number] 07:47:00 Test Item Value Reference Range Interpretation [...] mg/dL 8.5-10.5 L = CA) CBC W/AUTO [id number] 07:37:00 Test Item Value Reference Range Interpretation [...] = BA#) 0.1 x10 3/uL 0.0-0.1 N [id number] 06:21:00 Test Item Value Reference Range Interpretation Comments GLUBED (test code = GLUBED) 141 MG/DL 70-105 H [id number] 21:37:00 Test Item Value Reference Range Interpretation Comments GLUBED (test code = GLUBED) 135 MG/DL 70-105 H [id number] 17:38:00 Test Item Value Reference Range Interpretation Comments GLUBED (test code = GLUBED) 144 MG/DL 70-105 H [id number] 11:57:00 Test Item Value Reference Range Interpretation Comments GLUBED (test code = GLUBED) 141 MG/DL 70-105 H VANCOMYCIN [id number] 07:35:00 Test Item Value Reference Range Interpretation Comments VANCOMYCIN TROUGH 10.8 ug/ml 10.0-20.0 N Please ref er to (test code = VANCT) Medicati on Administration Record (MAR) forlast d ose date and time. [id number] 06:05:00 Test Item Value Reference Range Interpretation Comments GLUBED (test code = GLUBED) 139 MG/DL 70-105 H CBC W/AUTO [id number] 05:22:00 Test Item Value Reference Range Interpretation [...] 0.1 x10 3/uL 0.0-0.1 N BASIC METABOLIC [id number] 05:11:00 Test Item Value Reference Range Interpretation [...] code 8.5 mg/dL 8.5-10.5 N = CA) [id number] 21:02:00 Test Item Value Reference Range Interpretation Comments GLUBED (test code = GLUBED) 164 MG/DL 70-105 H LACTIC [id number] 18:08:00 Test Item Value Reference Range Interpretation Comments LACTIC ACID (test code = LACT) 1.2 mmol/L 0.5-2.0 N - XR CHEST 1 [id number] 14:36:00 [facility] : 1975 Sex: FPatient Name: JERI VILLALOBOS Unit No: [id number] EXAMS: CPT: [id number] XR CHEST 1 V 83270 EXAM: XR CHEST 1 VIEW DATE: 02/22/2022 [...] and soft tissues: No acute abnormality. IMPRESSION: Nosignificant change in left lower lobe subsegmental atelectasis or infiltrates. The lungs are otherwise clear. at 1436 Reported and signed by: Yung Abel MD CC: Manuel Rose DO Technologist: Stephanie Deleon Time: DAP (Gy m2): Air Kerma (mGy): Trscr Dt/Tm: 02/22/2022 (1436) by:[email or web address] Orig Print D/T: S: 02/22/2022 (3545) BATCH NO: N/A Name: JERI VILLALOBOS [facility] Phys: SIDFA. - [place],Manuel Grant [address] [place] : 1975 Age: 46 Sex: F [place], [place] [address] Loc: N.0353 1 Exam Date: 02/22/2022 Status: ADM IN PH: FAX: PAGE 1 Signed ReportUA RFLX MICR CULT IF [id number] 13:49:00 Test Item Value Reference Range Interpretation [...] culture: Temperature > 100.4 FSpecimen Description: CATHETERIZED (STRAIGHT)[id number] 11:40:00 Test Item Value Reference Range Interpretation Comments GLUBED (test code = GLUBED) 168 MG/DL 70-105 H BASIC METABOLIC [id number] 06:49:00 Test Item Value Reference Range Interpretation [...] code 9.5 mg/dL 8.5-10.5 N = CA) [id number] 06:49:00 Test Item Value Reference Range Interpretation Comments MAGNESIUM (test code = MAG) 2.4 mg/dl 1.8-2.5 N CBC W/AUTO [id number] 06:34:00 Test Item Value Reference Range Interpretation [...] = BA#) 0.1 x10 3/uL 0.0-0.1 N [id number] 05:45:00 Test Item Value Reference Range Interpretation Comments GLUBED (test code = GLUBED) 172 MG/DL 70-105 H [id number] 19:41:00 Test Item Value Reference Range Interpretation Comments GLUBED (test code = GLUBED) 138 MG/DL 70-105 H [id number] 15:35:00 Test Item Value Reference Range Interpretation Comments GLUBED (test code = GLUBED) 155 MG/DL 70-105 H [id number] 12:37:00 Test Item Value Reference Range Interpretation Comments GLUBED (test code = GLUBED) 157 MG/DL 70-105 H - XR CHEST 1 [id number] 09:18:00 [facility] MIRELA VILLALOBOSNahum Horton : 1975 Sex: FPatient Name: JERI VILLALOBOS Unit No: [id number] EXAMS: CPT: [id number] XR CHEST 1 V 34465 EXAM: XR CHEST 1 VIEW DATE: 02/21/2022 8:14 AM INDICATION: Increased [...] m2): Air Kerma (mGy): Trscr Dt/Tm: 02/21/2022 (0918) by:[email or web address] Orig Print D/T: S: 02/21/2022 (09) BATCH NO: N/AName: JERI VILLALOBOS [facility] Phys: SIDFA. - Manuel Rose [address] [facility] : 1975 Age: 46 Sex: F [place], [place] [address] Loc: N.0353 1 Exam Date: 02/21/2022tatus: ADM IN PH: FAX: PAGE 1 Signed ReportCBC W/AUTO [id number] 07:45:00 Test Item Value Reference Range Interpretation [...] 0.1 x10 3/uL 0.0-0.1 N BASIC METABOLIC [id number] 07:22:00 Test Item Value Reference Range Interpretation [...] code 9.1 mg/dL 8.5-10.5 N = CA) [id number] 07:09:00 Test Item Value Reference Range Interpretation Comments GLUBED (test code = GLUBED) 160 MG/DL 70-105 H [id number] 20:59:00 Test Item Value Reference Range Interpretation Comments GLUBED (test code = GLUBED) 122 MG/DL 70-105 H BASIC METABOLIC [id number] 16:30:00 Test Item Value Reference Range Interpretation [...] mg/dL 8.5-10.5 N = CA) CBC W/AUTO [id number] 16:02:00 Test Item Value Reference Range Interpretation [...] = BA#) 0.1 x10 3/uL 0.0-0.1 N [id number] 15:05:00 Test Item Value Reference Range Interpretation Comments GLUBED (test code = GLUBED) 142 MG/DL 70-105 H [id number] 10:44:00 Test Item Value Reference Range Interpretation Comments GLUBED (test code = GLUBED) 150 MG/DL 70-105 H [id number] 06:45:00 Test Item Value Reference Range Interpretation Comments GLUBED (test code = GLUBED) 153 MG/DL 70-105 H [id number] 21:00:00 Test Item Value Reference Range Interpretation Comments GLUBED (test code = GLUBED) 135 MG/DL 70-105 H [id number] 12:11:00 Test Item Value Reference Range Interpretation Comments GLUBED (test code = GLUBED) 127 MG/DL 70-105 H - XR CHEST 1 [id number] 07:51:00 [facility] : 1975 Sex: FPatient Name: JERI VILLALOBOS Unit No: [id number] EXAMS: CPT: [id number] XR CHEST 1 V 85086 Comparison study: 02/15/2022 History: Respiratory failure CHEST [...] (0754) BATCH NO: N/A Name: JERI VILLALOBOS [facility] Phys: Shun Garcia NP [address] [facility] : 1975 Age: 46 Sex: F [place] [address] Loc: N.1 1 Exam Date: 02/19/2022 Status: ADM IN PH: FAX: PAGE 1 Signed Report [id number] 06:40:00 Test Item Value Reference Range Interpretation Comments GLUBED (test code = GLUBED) 152 MG/DL 70-105 H BASIC METABOLIC [id number] 04:44:00 Test Item Value Reference Range Interpretation [...] code 9.5 mg/dL 8.5-10.5 N = CA) [id number] 04:44:00 Test Item Value Reference Range Interpretation Comments PHOSPHOROUS (test code = PHOS) 5.5 mg/dl 2.5-4.6 H [id number] 04:44:00 Test Item Value Reference Range Interpretation Comments MAGNESIUM (test code = MAG) 2.3 mg/dl 1.8-2.5 N CBC W/AUTO [id number] 04:30:00 Test Item Value Reference Range Interpretation [...] = BA#) 0.1 x10 3/uL 0.0-0.1 N [id number] 00:35:00 Test Item Value Reference Range Interpretation Comments GLUBED (test code = GLUBED) 136 MG/DL 70-105 H [id number] 16:43:00 Test Item Value Reference Range Interpretation Comments GLUBED (test code = GLUBED) 140 MG/DL 70-105 H [id number] 07:44:00 Test Item Value Reference Range Interpretation Comments GLUBED (test code = GLUBED) 152 MG/DL 70-105 H [id number] 07:44:00 Test Item Value Reference Range Interpretation Comments GLUBED (test code = GLUBED) 97 MG/DL 70-105 N [id number] 06:24:00 Test Item Value Reference Range Interpretation Comments GLUBED (test code = GLUBED) 142 MG/DL 70-105 H CBC W/AUTO [id number] 06:08:00 Test Item Value Reference Range Interpretation [...] 0.1 x10 3/uL 0.0-0.1 N BASIC METABOLIC [id number] 04:29:00 Test Item Value Reference Range Interpretation [...] code 10.0 mg/dL 8.5-10.5 N = CA) [id number] 04:29:00 Test Item Value Reference Range Interpretation Comments PHOSPHOROUS (test code = PHOS) 5.0 mg/dl 2.5-4.6 H [id number] 04:29:00 Test Item Value Reference Range Interpretation Comments MAGNESIUM (test code = MAG) 2.3 mg/dl 1.8-2.5 N [id number] 00:48:00 Test Item Value Reference Range Interpretation Comments GLUBED (test code = GLUBED) 103 MG/DL 70-105 N [id number] 16:28:00 Test Item Value Reference Range Interpretation Comments GLUBED (test code = GLUBED) 96 MG/DL 70-105 N - DUP EXTRACRANIAL [id number] 09:49:00 [facility] : 1975 Sex: FPatient Name: JERI VILLALOBOS Unit No: [id number] EXAMS: CPT: [id number] DUP EXTRACRANIAL [place] 86277 BILATERAL CAROTID ARTERY ULTRASOUND DUPLEX SCAN AND WAVE FORM SPECTRAL ANALYSIS CONCLUSIONS: 1. Bilateral, mild atherosclerotic carotid stenotic disease. 2. There are no measured areas of stenosis greater than 50% in the Right carotid bulb, internal, or common carotid artery. Normal antegrade flow is present in the Right Vertebral artery. 3. There are no measured areas of stenosis greater than 50% in the Left carotid bulb, internal, or common carotid artery. Normal antegrade flow is present in the Left Vertebral artery. 4. The Carotid Artery Wave Form Spectral Analysis is normal bilaterally HISTORY AND I NDICATIONS FOR STUDY: This study is performed to evaluate the presence and extent of carotid atherosclerotic disease. Technical note: The common, external, and internal carotid arteries were evaluatedbilaterally. Ultrasound, grayscale, color Doppler, and spectral waveform analysis of peak and end-farshad stolic velocities were performed at multiple levels. Comparison Study: None available FINDINGS: RIGHT CAROTID Ultrasound and duplex imaging of the right [...] VICA / VCCA ratio is 0.8. Name: JERI VILLALOBOS [place] Phys: Tiburcio Angel MD [address] [facility] : 1975 Age: 46 Sex: F [place] [address] Loc: N.2050 1 Exam Date: 02/16/2022 Status: ADM IN PH: FAX: PAGE 1 Signed Report (C ONTINUED) Patient Name: JERI VILLALOBOS Unit No: [id number] EXAMS: CPT: [id number] DUP EXTRACRANIAL [place] [address] (Continued) VERTEBRAL ARTERY FLOW Normal antegrade vertebral artery flow bilaterally. at 0949 Reported and signed by: LISANDRA [facility]: Love Kumar MD; Tiburcio Cartagena MD Technologist: Anu So Probe: Trscr Dt/Tm: 02/17/2022 (0949) by:BasilHR Orig Print D/T: S: 02/17/2022 (0953) BATCH NO: N/A Name: JERI VILLALOBOS [facility] Phys: Tiburcio Angel MD [address] : 1975 Age: 46 Sex: F [place], [place] [address]Uayj No: [id number] Loc: N.2051 1 Exam Date: 02/16/2022 Status: ADM IN PH: FAX: PAGE 2 Signed [id number] 07:58:00 Test Item Value Reference Range Interpretation Comments GLUBED (test code = GLUBED) 110 MG/DL 70-105 H HCG [id number] 03:51:00 Test Item Value Reference Range Interpretation Comments HCG SERUM (test 0.5 mIU/ml Interpretive Data:HCG code = HCG) Quant BhCG Refe rence Ranges <5.0 mIU /ml Non- Ap prox. Gestational Age Reference Range (hCG in m IU/mL) 0.2-1.0 weeks 5 -50 1-2 weeks 50-500 2- 3 weeks 100-5,000 3-4 w eeks 500-10,000 4-5 [...] nitoring the treatment o fcancer patients PROTHROMBIN [id number] 03:39:00 Test Item Value Reference Range Interpretation [...] .5 recurrent syste chong embolism. THROMBOPLASTIN TIME [id number] 03:39:00 Test Item Value Reference Range Interpretation Comments THROMBOPLASTIN TIME PARTIAL (test 29 SECONDS 25-38 N code = PTT) BASIC METABOLIC [id number] 03:39:00 Test Item Value Reference Range Interpretation [...] mg/dL 8.5-10.5 N = CA) CBC W/AUTO [id number] 03:26:00 Test Item Value Reference Range Interpretation [...] = BA#) 0.1 x10 3/uL 0.0-0.1 N [id number] 00:22:00 Test Item Value Reference Range Interpretation Comments GLUBED (test code = GLUBED) 112 MG/DL 70-105 H [id number] 16:32:00 Test Item Value Reference Range Interpretation Comments GLUBED (test code = GLUBED) 112 MG/DL 70-105 H [id number] 12:51:00 Test Item Value Reference Range Interpretation Comments GLUBED (test code = GLUBED) 118 MG/DL 70-105 H [id number] 07:34:00 Test Item Value Reference Range Interpretation Comments GLUBED (test code = GLUBED) 97 MG/DL 70-105 N COMPREHENSIVE METABOLIC [id number] 07:32:00 Test Item Value Reference Range Interpretation [...] 42-121 N PHOSPHATASE (test code = ALKP) [id number] 04:16:00 Test Item Value Reference Range Interpretation Comments CREATININE (test code = CREAT) 0.63 mg/dL 0.44-1.03 N [id number] 04:16:00 Test Item Value Reference Range Interpretation Comments PHOSPHOROUS (test code = PHOS) 3.9 mg/dl 2.5-4.6 N [id number] 04:16:00 Test Item Value Reference Range Interpretation Comments MAGNESIUM (test code = MAG) 2.0 mg/dl 1.8-2.5 N [id number] 00:03:00 Test Item Value Reference Range Interpretation Comments GLUBED (test code = GLUBED) 110 MG/DL 70-105 H UA RFLX MICR CULT IF [id number] 13:51:00 Test Item Value Reference Range Interpretation [...] for culture: RiskForSepsis-no oth srcSpecimen Description: CATHETERIZED (STRAIGHT)[id number] 11:24:00 Test Item Value Reference Range Interpretation Comments GLUBED (test code = GLUBED) 106 MG/DL 70-105 H - DUP VEIN UNI [id number] 10:04:00 [facility] : 1975 Sex: FPatient Name: JERI VILLALOBOS Unit No: [id number] EXAMS: CPT: [id number] [address] RIGHT UPPEREXTREMITY VENOUS COLOR DOPPLER SCAN AND IMAGING WITH [...] removed. HISTORY AND INDICATIONS FOR THIS STUDY: Thisstudy is performed to evaluate the patency of the deep veins of the right upper extremity. TECHNICALNOTE: Real time venous Doppler studies with real time color duplex imaging, wave form analysis, and compression maneuvers were performed to evaluate the patency of the deep veins of the Right Upper Extremity. Per Vascular Lab protocol, the Left Subclavian vein was also scanned. COMPARISON STUDY: None Available FINDINGS: 1. No evidence of Deep Venous [...] Steph Kumari MD Technologist: FAMILIA Chavarria Probe: [facility] Dt/Tm: 02/15/2022 (1004) by:BasilHR Orig Print D/T: S: 02/15/2022 (1007) BATCH NO: N/A Name: JERI VILLALOBOS [facility] Phys: JUANCARLOSRy - Steph Kumari MD [address] : 1975 Age: 46 Sex: F [place], [place] [address] Loc: N.2050 09 Exam Date: 02/14/2022 Status: ADM IN PH: FAX: PAGE 1 Signed [id number] 07:23:00 Test Item Value Reference Range Interpretation Comments GLUBED (test code = GLUBED) 134 MG/DL 70-105 H - XR CHEST 1 [id number] 06:40:00 [facility] : 1975 Sex: FPatient Name: JERI VILLALOBOS Unit No: [id number] EXAMS: CPT: [id number] XR CHEST 1 V 88953 Portable chest, 02/15/2022. Clinical: Aspiration. Comment: The [...] Love Kumar MD;Jorje Eller MD Technologist: Virgilio M. Fluoro Time: DAP (Gy m2): Air Kerma (mGy): Trscr Dt/Tm: 02/15/2022 (0640) by:[email or web address] Orig Print D/T: S: 02/15/2022 (0643) BATCH NO: N/A Name: [facility] Phys: Jorje Brasher MD [address] [place] : 1975 Age: 46 Sex: F [place], [place] [address] Loc: N.2050 09 Exam Date: 02/15/2022 Status: ADM IN PH: FAX: PAGE 1 Signed [id number] 06:14:00 Test Item Value Reference Range Interpretation Comments GLUBED (test code = GLUBED) 179 MG/DL 70-105 H BASIC METABOLIC [id number] 04:28:00 Test Item Value Reference Range Interpretation [...] code 8.5 mg/dL 8.5-10.5 N = CA) [id number] 04:28:00 Test Item Value Reference Range Interpretation Comments PHOSPHOROUS (test code = PHOS) 3.7 mg/dl 2.5-4.6 N [id number] 04:28:00 Test Item Value Reference Range Interpretation Comments MAGNESIUM (test code = MAG) 1.7 mg/dl 1.8-2.5 L CBC W/AUTO [id number] 04:18:00 Test Item Value Reference Range Interpretation [...] BA#) 0.0 x10 3/uL 0.0-0.1 N SED [id number] 02:39:00 Test Item Value Reference Range Interpretation Comments SED RATE (test code = SEDW) 57 mm/hr 0-20 H HIGH SENSITIVITY [id number] 01:33:00 Test Item Value Reference Range Interpretation Comments HIGH SENSITIVITY CRP (test code = 5.257 mg/dl 0.000-0.747 H CRPHS) [id number] 00:38:00 Test Item Value Reference Range Interpretation Comments GLUBED (test code = GLUBED) 96 MG/DL 70-105 N [id number] 16:56:00 Test Item Value Reference Range Interpretation Comments GLUBED (test code = GLUBED) 124 MG/DL 70-105 H ARTERIAL BLOOD [id number] 10:08:00 Test Item Value Reference Range Interpretation [...] d message] code = MARY) The system [employer] generated this result transmit may reference range [...] code 12.5 g/dL 12.0-18.0 N = THB) [id number] 08:45:00 Test Item Value Reference Range Interpretation Comments GLUBED (test code = GLUBED) 112 MG/DL 70-105 H [id number] 04:22:00 Test Item Value Reference Range Interpretation Comments PHOSPHOROUS (test code = PHOS) 4.5 mg/dl 2.5-4.6 N [id number] 04:22:00 Test Item Value Reference Range Interpretation Comments MAGNESIUM (test code = MAG) 1.9 mg/dl 1.8-2.5 N BASIC METABOLIC [id number] 04:14:00 Test Item Value Reference Range Interpretation [...] mg/dL 8.5-10.5 N = CA) CBC W/AUTO [id number] 04:03:00 Test Item Value Reference Range Interpretation [...] = BA#) 0.1 x10 3/uL 0.0-0.1 N [id number] 23:41:00 Test Item Value Reference Range Interpretation Comments GLUBED (test code = GLUBED) 89 MG/DL 70-105 N [id number] 18:22:00 Test Item Value Reference Range Interpretation Comments GLUBED (test code = GLUBED) 126 MG/DL 70-105 H - XR CHEST 1 [id number] 06:29:00 [facility]AB[facility] : 1975 Sex: FPatient Name: JERI VILLALOBOS Unit No: [id number] EXAMS: CPT: [id number] XR CHEST 1 V 30056 Portable chest, 02/13/2022. Clinical: Aspiration. Comment: The [...] (628) by:[email or web address] Orig Print D/T: S: 02/13/2022 (0632) BATCH NO: N/A Name: JERI VILLALOBOS [facility] Phys: SANRO01 - [place] [address] [facility] : 1975 Age: 46 Sex: F [place], [place] [address] Loc: N.2051 1 Exam Date: 02/13/2022 Status: ADM IN PH: FAX: PAGE 1 Signed ReportCOMPREHENSIVE METABOLIC [id number] 04:15:00 Test Item Value Reference Range Interpretation [...] 42-121 N PHOSPHATASE (test code = ALKP) [id number] 04:15:00 Test Item Value Reference Range Interpretation Comments PHOSPHOROUS (test code = PHOS) 3.4 mg/dl 2.5-4.6 N [id number] 04:15:00 Test Item Value Reference Range Interpretation Comments MAGNESIUM (test code = MAG) 1.9 mg/dl 1.8-2.5 N CBC W/AUTO [id number] 04:06:00 Test Item Value Reference Range Interpretation [...] = BA#) 0.0 x10 3/uL 0.0-0.1 N [id number] 00:07:00 Test Item Value Reference Range Interpretation Comments GLUBED (test code = GLUBED) 109 MG/DL 70-105 H [id number] 18:06:00 Test Item Value Reference Range Interpretation Comments GLUBED (test code = GLUBED) 113 MG/DL 70-105 H [id number] 12:18:00 Test Item Value Reference Range Interpretation Comments GLUBED (test code = GLUBED) 111 MG/DL 70-105 H - XR CHEST 1 [id number] 06:13:00 [facility] : 1975 Sex: FPatient Name: JERI VILLALOBOS Unit No: [id number] EXAMS: CPT: [id number] XR CHEST 1 V 48369 Portable chest, 02/12/2022. Clinical: Pneumonia. Comment: The airway and gastric tubes remain in place. There are bilateral consolidations primarily within the left lung and right base. There is no evidence of pneumothorax. The regional skeleton appears stable. IMPRESSION: No significant change since 02/10/2022. at 0613 Reported and signed by: Curtis Llamas MD CC: Love Kumar MD; Steph Kumari MD Technologist: Papito Deleon Time: DAP (Gy m2): AirKerma (mGy): Trscr Dt/Tm: 02/12/2022 (06) by:[email or web address] Orig Print D/T: S: 02/12/2022 (0616) BATCHNO: N/A Name: JERI VILLALOBOS [facility] Phys: JUANCARLOS. - Steph Kumari MD [address] [facility] :1975 Age: 46 Sex: F [place], [place] [address] Loc: N.2050 09 Exam Date: 02/12/2022 Status: ADM IN PH: FAX: PAGE 1 Signed ReportCALCIUM [id number] 06:12:00 Test Item Value Reference Range Interpretation Comments CALCIUM IONIZED (test code = WESLY) 1.14 mmol/L 1.13-1.32 N [id number] 05:52:00 Test Item Value Reference Range Interpretation Comments PHOSPHOROUS (test code = PHOS) 2.7 mg/dl 2.5-4.6 N [id number] 05:52:00 Test Item Value Reference Range Interpretation Comments MAGNESIUM (test code = MAG) 1.7 mg/dl 1.8-2.5 L CBC W/AUTO [id number] 05:18:00 Test Item Value Reference Range Interpretation [...] 0.0 x10 3/uL 0.0-0.1 N COMPREHENSIVE METABOLIC [id number] 05:12:00 Test Item Value Reference Range Interpretation [...] 42-121 N PHOSPHATASE (test code = ALKP) [id number] 01:02:00 Test Item Value Reference Range Interpretation Comments GLUBED (test code = GLUBED) 110 MG/DL 70-105 H HGBA1C - GLYCOSYLATED [id number] 19:19:00 Test Item Value Reference Range Interpretation [...] red blood cells - MRI BRAIN W/O [id number] 16:41:00 [facility] : 1975 Sex: FPatient Name: JERI VILLALOBOS Unit No: [id number] EXAMS: CPT: [id number] MRI BRAIN W/O CONTRAST 10247 EXAM: MRI brain without intravenous contrast HISTORY: Reported pontine and cerebellar infarcts. COMPARISON: Head CT 02/11/2022 TECHNIQUE: Multiplanar and multisequence acquisitions of the brain were obtained without intravenous contrast. FINDINGS: Scalp: No abnormal signal. No masses. Bone marrow: Normalin signal intensity. Extra-axial: No masses, fluid collections [...] of restricted diffusion involving the marie, confirming the acute pontine infarct described on same day head CT. Wedge shaped region of restricted diffusion in the inferior right cerebellar hemisphere, also compatible with acute infarct. This was also reported previously. No acute hemorrhage or mass effect at this time. Don Marshall DO Neuroradiology at 1641 Reported and signed by: DON MARSHALL MD Name: JERI VILLALOBOS [facility] Phys: JUANCARLOS.Steph Mcmahon MD [address] [facility] : 1975Age: 46 Sex: F [place] [address] Loc: N.2050 1 Exam Date: 02/11/2022 Status: ADM IN : FAX: PAGE 1 Signed Report (CONTINUED) Patient Name: JERI VILLALOBOS Unit No: [id number]: CPT: [id number] MRI BRAIN W/O CONTRAST 21992 (Continued) CC: Love Kumar MD; Steph Kumari MD Technologist: Natty Barker Dt/Tm: 02/11/2022 (1640) by:[email or web address] Orig Print D/T: S: 02/11/2022 (1643) BATCH NO: N/A Name: JERI VILLALOBOS [facility] Phys: JUANCARLOS.Steph Mcmahon MD [address] [facility] : 1975 Age: 46 Sex: F [place] [address] Loc: N.2050 1 Exam Date: 02/11/2022 Status: ADM IN : FAX: PAGE 2 Signed ReportPROTHROMBIN [id number] 16:14:00 Test Item Value Reference Range Interpretation [...] .5 recurrent syste chong embolism. THROMBOPLASTIN TIME [id number] 16:14:00 Test Item Value Reference Range Interpretation Comments THROMBOPLASTIN TIME PARTIAL (test 31 SECONDS 25-38 N code = PTT) COMPREHENSIVE METABOLIC [id number] 16:03:00 Test Item Value Reference Range Interpretation [...] Risk 4 .0 3.8 Avg Risk 5.0 4 .5 Moderate Risk ( 2x avg) 9.5 7.0 Hi gh Risk (3x risk) >23 >11 Spec Comments: MUST BE [id number] 16:03:00 Test Item Value Reference Range Interpretation Comments MAGNESIUM (test code = MAG) 2.1 mg/dl 1.8-2.5 N Spec Comments: MUST BE [id number] 15:49:00 Test Item Value Reference Range Interpretation Comments TROPONIN-I (test code = TROPI) <0.020 ng/mL 0.000-0.034 N CBC W/AUTO [id number] 15:34:00 Test Item Value Reference Range Interpretation [...] 3/uL 0.0-0.1 N - CT HEAD/BRAIN W/O [id number] 13:11:00 [facility] N : 1975 Sex: FPatient Name: JERI VILLALOBOS Unit No: [id number] EXAMS: CPT: [id number] CT HEAD/BRAIN W/O CONT [id number] Comparison study: 02/09/2022 HISTORY: anoxic brain injury CT SCAN OF THE HEAD WITHOUT CONTRAST FINDINGS: CT scan of brain was performed without contrast. One or more of the following dose reduction techniques were used: Automated exposure control, adjustment of the mA and/or KV according to patient size, and/or utilization of iterative reconstruction technique. Extensive low- density is present involving the marie consistent with an infarct. A 4.7 cm low- density area is present in the right cerebellum consistent with an infarct. Low- density is present in the left cerebellum consistent with an infarct. High density is present within the basilar artery suspicious of thrombus. The cortical sulci, cisternsand ventricles are within normal limits. No intra-axial mass or hemorrhage is present. No extra-axial fluid collections are present. The visualized aspects of the orbits and skull are unremarkable. Mild to moderate maxillary, ethmoid and sphenoid sinus mucosal thickening is present. The visualized sinuses are otherwise clear. IMPRESSION: 1. 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 2. Sinus mucosal thickening. 3. Critical results: Findings called to the ICU nurse 02/11/2022 at 1311 hours. at 1311 Reported and signed by: Travis Bashir MD CC: Love Kumar MD; Steph Kumari MD Technologist: Bree Grider CTDI: 43.49 DLP: 800.24 Trscr Dt/Tm: 02/11/2022 (1311) by:[email or web address] Orig Print D/T: S: 02/11/2022 (1315) BATCH NO: N/A Name: FABIJERI [facility] Phys: JUANCARLOS. - Steph Kumari MD [address] [facility] : 1975 Age: 46 Sex: F [place], [place] [address] Loc: N.2050 09 Exam Date: 02/11/2022 Status: ADM IN PH: FAX: PAGE 1 Signed Report [id number] 11:47:00 Test Item Value Reference Range Interpretation Comments GLUBED (test code = GLUBED) 98 MG/DL 70-105 N COMPREHENSIVE METABOLIC [id number] 06:39:00 Test Item Value Reference Range Interpretation [...] N PHOSPHATASE (test code = ALKP) CALCIUM [id number] 06:33:00 Test Item Value Reference Range Interpretation Comments CALCIUM IONIZED (test code = WESLY) 1.12 mmol/L 1.13-1.32 L CBC W/AUTO [id number] 06:27:00 Test Item Value Reference Range Interpretation [...] = BA#) 0.0 x10 3/uL 0.0-0.1 N [id number] 05:34:00 Test Item Value Reference Range Interpretation Comments PHOSPHOROUS (test code = PHOS) 2.1 mg/dl 2.5-4.6 L [id number] 05:34:00 Test Item Value Reference Range Interpretation Comments MAGNESIUM (test code = MAG) 1.9 mg/dl 1.8-2.5 N ARTERIAL BLOOD [id number] 05:23:00 Test Item Value Reference Range Interpretation [...] d message] code = MARY) The system [employer] generated this result transmit may reference range [...] code 13.3 g/dL 12.0-18.0 N = THB) [id number] 16:35:00 Test Item Value Reference Range Interpretation Comments GLUBED (test code = GLUBED) 71 MG/DL 70-105 N [id number] 12:07:00 Test Item Value Reference Range Interpretation Comments GLUBED (test code = GLUBED) 148 MG/DL 70-105 H [id number] 11:42:00 Test Item Value Reference Range Interpretation Comments GLUBED (test code = GLUBED) 59 MG/DL 70-105 L COVID 19 INHOUSE [id number] 10:50:00 Test Item Value Reference Range Interpretation Comments COVID 19 INHOUSE AG NEGATIVE Negative Negative results should be (test code = treated as pres umptive [id number]) andconfirmed wi th a molecular assay , [...] oms consistent withCOVID-19.Sp ecimen Source: Nasopha ryngeal (THERMODYNAMICS ENGINEER) Swab COAGULATION TIME [id number] 08:14:00 Test Item Value Reference Range Interpretation Comments COAGULATION TIME ACTIVATED (test 159 SECONDS 91-151 H code = ACT) - XR ABDOMEN [id number] 07:53:00 [facility] 1975 Sex: FPatient Name: JERI VILLALOBOS Unit No: [id number] EXAMS: CPT: [id number] XR ABDOMEN 1V 10633 COMPARISON: None available CLINICAL HISTORY: OG TUBE PLACEMENT RADIOGRAPHS: 2 views abdomen for OG tube FINDINGS:The enteric tube is in the distal stomach. No dilated small bowel loops are seen. There is contrast in the urinary bladder. There is no radiopaque foreign body or soft tissue gas. There is no osseous er osion. IMPRESSION: Enteric tube is in the distal stomach. at 0753 Reported and signed by: Cynthia Scott MD CC: Love Kumar MD; Tejas Zapata Technologist: Magali Gill Fluoro Time: DAP (Gy m2): Air Kerma (mGy): Trscr Dt/Tm: 0 02/10/2022 (0753) by:[email or web address] Orig Print D/T: S: 02/10/2022 (0756) BATCH NO: N/A Name: JERI VILLALOBOS [facility] Phys: SANEKATERINA MichelgoTejas [address] [place] : 1975 Age: 46 Sex: F [place], [place] [address] Loc: N.2051 1 Exam Date: 02/10/2022 Status: ADM IN PH: FAX: PAGE 1 Signed Report- XR CHEST 1 [id number] 07:41:00 [facility] : 1975 Sex: FPatient Name: JERI VILLALOBOS Unit No: [id number] EXAMS: CPT: [id number] XR CHEST 1 V 91651 AP CHEST 1 VIEW COMPARISON: February 09, [...] Cynthia Scott MD CC: Manuel Rose DO; Ra wood Wu NP Technologist: Virgilio Gill Fluoro Time: DAP (Gy m2): Air Kerma (mGy): Trscr Dt/Tm: 02/10/2022 (0741) by:[email or web address] Orig Print D/T: S: 02/10/2022 (0744) BATCH NO: N/A Name: JERI VILLALOBOS [facility] Phys: [id number] - Anisa Wu THERMODYNAMICS ENGINEER [address] : 1975 Age: 46 Sex: F [place], [place] [address] Loc: N.2050 09 Exam Date: 02/10/2022 Status: ADM IN PH: FAX: PAGE 1 Signed [id number] 07:14:00 Test Item Value Reference Range Interpretation Comments PHOSPHOROUS (test code = PHOS) 2.3 mg/dl 2.5-4.6 L [id number] 07:14:00 Test Item Value Reference Range Interpretation Comments MAGNESIUM (test code = MAG) 1.8 mg/dl 1.8-2.5 N CALCIUM [id number] 06:51:00 Test Item Value Reference Range Interpretation Comments CALCIUM IONIZED (test code = WESLY) 1.11 mmol/L 1.13-1.32 L COMPREHENSIVE METABOLIC [id number] 06:02:00 Test Item Value Reference Range Interpretation [...] PHOSPHATASE (test code = ALKP) ARTERIAL BLOOD [id number] 05:43:00 Test Item Value Reference Range Interpretation [...] d message] code = MARY) The system [employer] generated this result transmitted ref erence range: [...] g/dL 12.0-18.0 N = THB) CBC W/AUTO [id number] 05:06:00 Test Item Value Reference Range Interpretation [...] 3/uL 0.0-0.1 N DRUGS OF ABUSE SCREEN [id number] 19:54:00 Test Item Value Reference Range Interpretation [...] ng/mLRecommende d screening cut-o ff concentrations by the[facility] use and [facility]. UR CANABINOIDS (test POSITIVE NEGATIVE A [...] ng/mLRecommende d screening cut-o ff concentrations by [facility] use and [facility]. UR AMPHETAMINE (test POSITIVE NEGATIVE A The ing estion of natural code = AMPHU) herbal and carlo nt productscontain ing Ephedra/Ephedra -Metabolit es can produce in urineone or mor e substances capa ble of cross-reacting withAmphetamine /Methamphe juan luis immunoanalilia says. This testprovides a preliminary res ult [...] ng/mLRecommende d screening cut-o ff concentrations by [facility] use and [facility]. UR BARBITURATE (test NEGATIVE NEGATIVE This [...] ff concentrations by thebstance Ab use and [facility]. UR BENZODIAZEPINE NEGATIVE NEGATIVE This is a [...] ng/mLRecommende d screening cut-o ff concentrations by [facility] use and [facility]. UR OPIATES QUAL (test NEGATIVE NEGATIVE This [...] ng/mLRecommende d screening cut-o ff concentrations by the[facility] use and [facility]. UR PHENCYCLIDINE NEGATIVE NEGATIVE This is a [...] ng/mLRecommende d screening cut-o ff concentrations by the[facility] Ab use and [facility]. URINALYSIS [id number] 19:43:00 Test Item Value Reference Range Interpretation [...] code = 1+ /LPF NONE SEEN MUCU) [id number] 17:19:00 Test Item Value Reference Range Interpretation Comments GLUBED (test code = GLUBED) 95 MG/DL 70-105 N ARTERIAL BLOOD [id number] 16:39:00 Test Item Value Reference Range Interpretation [...] d message] code = MARY) The system [employer] generated this result transmit may reference range [...] N = THB) - XR CHEST 1 [id number] 14:10:00 [facility] : 1975 Sex: FPatient Name: JERI VILLALOBOS Unit No: [id number] EXAMS: CPT: [id number] XR CHEST 1 V 45955 XR CHEST 1 VIEW HISTORY: ETT PLACEMENT [...] left lung similar to earlier study. 2. ET and NG tubes as described above. at 1410 Reported and signed by: Anni Haas MD CC: Love Kumar MD; Manuel Rose DO Technologist: Bronson Deleon Time: DAP (Gy m2): Air Kerma (mGy): Trscr Dt/Tm: 02/09/2022 (141) by:[email or web address] Orig Print D/T: S: 02/09/2022 (3527) BATCH NO: N/A Name: JERI VILLALOBOS [facility] Phys: DAMIAN Love Kumar V [address] [facility] : 1975 Age: 46 Sex: F [place], [place] [address] Loc: N.2051 1 Exam Date: 02/09/2022 Status: ADM IN PH: FAX: PAGE 1 Signed Report- CT C-SPINE W/O [id number] 13:29:00 [facility] : 1975 Sex: FPatient Name: JERI VILLALOBOS Unit No: [id number] EXAMS: CPT: [id number] CT C-SPINE W/O CONT 90834 CT CERVICAL SPINE Multiplanar imaging of the cervical spine was performed without contrast. Radiation dose optimization was achieved by protocols in accordance with standard of practice, department policies and addiction counselor's recommendations with one or more of the [...] arthrosis with left foraminal narrowing. There is mild right facet arthrosis. Right foramen is satisfactorily patent. [...] is no significant facet arthrosis. The neuroforamina ar e satisfactorily patent. Negative for acute abnormality. C7-T1: The disc is normal in size and configuration. There is no disc herniation or bulge. Facets demonstrate no significant arthrosis. There isno spinal or foraminal stenosis. There is no fracture. CONCLUSION: Multilevel disc degeneration and spondylosis. Name: FABIJERI Horton [facility] Phys: Ruiz Wolfe MD [address] 1975 Age: 46 Sex: F [place], [place] [address] Loc: N.2051 1 Exam Date: 02/09/2022 Status: ADM IN PH: FAX: PAGE 1 Signed Report (CONTINUED) Patient Name: MIRELA VILLALOBOSNahum Horton Unit No: [id number] EXAMS: CPT: [id number] CT C-SPINE W/O CONT 11019 (Continued) Multilevel facet arthrosis. at 1329 Reported and signed by: Derick Norton MD CC: Ruiz Vaughn MD; Manuel Rose DO Technologist: Sarah Perez CTDI: 13.02 DLP:277.12 Trscr Dt/Tm: 02/09/2022 (6395) by:Cheri Orig Print D/T: S: 02/09/2022 (7959) BATCH NO: N/A Name: JERI VILLALOBOS [facility] Phys: Ruiz Wolfe MD [address] [place] : 1975 Age: 46 Sex: F [place], [place] [address] Loc: N.2051 1 Exam Date: 02/09/2022 Status: ADM IN PH: FAX: PAGE 2 Signed Report- CTA CHEST FOR [id number] 13:24:00 [facility] : 1975 Sex: FPatient Name: JERI VILLALOBOS Unit No: [id number] EXAMS: CPT: [id number] [place] [address] CTA CHEST WITH CONTRAST: INDICATIONS:Pulmonary embolism. COMPARISON: None available TECHNIQUE: Axial CT chestwith IV contrast was performed. Coronal and sagittal reformats reconstructed. Bolus tracking series followed by contrast- enhanced CT. Data set analyzed on a 3-D workstation with image post processing. CT radiation dose optimization is achieved for this examination by the use of a CT protocol in accordance with ACR practice standards and adherence to addiction counselor's recommendations. Contrast: 100cc Isovue-300. Total DPL: 1497.94mGy*cm. FINDINGS: Breast implants. A 1 cm right supraclavicular lymph node. The visualized central airway is unremarkable. No hilar or mediastinal lymphadenopathy. Cardiac size is normal. No coronary calcifications. Large groundglass opacities and infiltrates in the left upper lobe and lingula lobe. A lesser extent of groundglass opacities and infiltrates in the right upperand middle lobe. Bibasilar atelectasis. No large pleural effusion. The thoracic aorta is of normal caliber without dissection or aneurysm. The pulmonary artery are opacified and no pulmonary emboli seen. IMPRESSION: Large groundglass opacities and infiltrates in the left upper lobe and lingula lobe. Alesser extent of groundglass opacities and infiltrates in the right upper and middle lobe. Findings degenerative of a multifocal pneumonia. No pulmonary emboli seen. at 1324 Reported and signed by: Jalen Black MD Name: JERI VILLALOBOS [place] Phys: Ruiz Wolfe MD [address] [facility] : 1975 Age: 46 Sex: F [place] [address] Loc: N.2050 1 Exam Date: 02/09/2022 Status: ADM IN PH: FAX: PAGE 1 Signed Report (CONTINUED) Patient Name: FABIJERI Horton Unit No: [id number] EXAMS: CPT: [id number] [place] [address] (Continued) CC: Ruiz Vaughn MD; Manuel Rose DO Technologist: Sarah Perez CTDI: 11.06 DLP: 398.57 Trscr Dt/Tm: 02/09/2022 (1324) by:[email or web address] Orig Print D/T: S: 02/09/2022 (1327) BATCH NO: N/A Name: [facility] [place] Phys: Ruiz Wolfe MD [address] [facility] : 1975 Age: 46 Sex: F [place] [address] Loc: N.2050 1 Exam Date: 02/09/2022 Status: ADM IN PH: FAX: PAGE 2 Signed Report- CT HEAD/BRAIN W/O [id number] 13:17:00 [facility] : 1975 Sex: FPatient Name: JERI VILLALOBOS Unit No: [id number] EXAMS: CPT: [id number] CT HEAD/BRAIN W/O CONT 16672 CT HEAD Multiplanar imaging was performed without contrast. Radiation dose optimization was achieved by protocols in accordance with standard of practice, department policies and addiction counselor's recommendations with one or more of the following: Automated exposure control, adjustment of KVP and MAS by ageand weight, iterative reconstruction technique. DLP: 736 mGy/cm [...] pituitary gland appear normal and the regional basal cisterns are clear. The 4th ventricle is midline [...] by: Derick Norton MD Name: JERI VILLALOBOS [facility] Phys: Ruiz Wolfe MD [address] [place] : 1975 Age: 46 Sex: F [place], [place] [address] Loc: N.2051 1 Exam Date: 02/09/2022 Status: ADM IN PH: FAX: PAGE 1 Signed Report (CONTINUED) Patient Name: JERI VILLALOBOS Unit No: [id number] EXAMS: CPT: [id number] CT HEAD/BRAIN W/O CONT 92108 (Continued) CC: Ruiz Vaughn MD; Manuel Rose DO Technologist: Sarah Perez CTDI: 45.45 DLP: 736.2 Trscr Dt/Tm: 02/09/2022 (1317) by:Cheri Orig Print D/T: S: 02/09/2022(7475) BATCH NO: N/A Name: JERI VILLALOBOS [facility] Phys: Ruiz Wolfe MD [address] [place] [address] : 1975 Age: 46 Sex: F [place] [address] Loc: N.2050 1 Exam Date: 02/09/2022 Status: ADM IN PH: FAX: PAGE 2 Signed ReportLACTIC [id number] 11:06:00 Test Item Value Reference Range Interpretation Comments LACTIC ACID (test code = LACT) 1.6 mmol/L 0.5-2.0 N ARTERIAL BLOOD [id number] 09:33:00 Test Item Value Reference Range Interpretation [...] [Automate d code = MARY) message] The sy stem which generated this result transmitted reference [...] g/dL 12.0-18.0 N = THB) CBC W/AUTO [id number] 07:34:00 Test Item Value Reference Range Interpretation [...] 8.8 fL 8.6-12.6 N = MPV) WBC [id number] 07:34:00 Test Item Value Reference Range Interpretation [...] 3/uL 0.00-0.00 N = OCT#) COMPREHENSIVE METABOLIC [id number] 06:52:00 Test Item Value Reference Range Interpretation [...] 42-121 N PHOSPHATASE (test code = ALKP) [id number] 05:45:00 Test Item Value Reference Range Interpretation Comments GLUBED (test code = GLUBED) 150 MG/DL 70-105 H - XR CHEST 1 [id number] 03:56:00 [facility] : 1975 Sex: FPatient Name: JERI VILLALOBOS Unit No: [id number] EXAMS: CPT: [id number] XR CHEST 1 V 68314 CHEST 1 VIEW CLINICAL HISTORY: Shortness of [...] (0400) BATCH NO: N/A Name: JERI VILLALOBOS [facility] Phys: Chris Blas MD [address] [facility] : 1975 Age: 46 Sex: F [place] [address] Loc: N.ERS Exam Date: 02/09/2022 Status: REG ER PH: FAX: PAGE 1 Signed Report
--- NOTE | 2022-06-16 02:45 | EDPHYS ---
Physician Documentation [facility] Name: Angelique Villalobos Age: 46 yrs Sex: Female : 1975 Arrival Date: 06/16/2022 Time: 02:23 Bed 3 Private MD: ED Physician Cameron Seay HPI: 06/16 02:33 This 46 yrs old Female presents to ER via Unassigned with complaints of Fever and ms3 tachycardia. 02:33 46-year-old female with anoxic brain injury, paroxysmal sympathetic hyperactivity, ms3 quadriplegia presents via [facility] for fever of 103.7 and tachycardia. Per EMS patient's heart rate 170. Patient is at baseline due to anoxic brain injury. Patient is nonverbal and unable to obtain HPI from patient.. Historical: - Allergies: 03:12 albuterol sulfate; jb4 - PMHx: 03:12 anoxic brain injury; MRSA; Hyperlipidemia; CVA; jb4 - PSHx: 03:12 PEG tube; tracheostomy; jb4 - Immunization history:: Adult Immunizations unknown. - Social history:: Smoking status: unknown. ROS: 02:33 Unable to obtain ROS due to Anoxic brain injury. ms3 Exam: 02:35 Head/Face: Normocephalic, atraumatic. ms3 02:35 Constitutional: The patient appears obviously ill, pale. 02:35 Neck: External neck: Tracheostomy, Trachea: is midline with no obvious abnormalities. 02:35 Chest/axilla: 02:35 Cardiovascular: Rate: tachycardic, Rhythm: regular, Pulses: no pulse deficits are appreciated, Heart sounds: normal. 02:35 Respiratory: the patient does not display signs of respiratory distress, Respirations: Rales right lobe. 02:35 Abdomen/GI: Inspection: abdomen appears normal, Bowel sounds: normal, Palpation: soft, PEG in place. 02:35 Musculoskeletal/extremity: Decerebrate posturing. 02:35 Skin: 02:46 ECG was reviewed by the Attending Physician. ms3 04:30 Skin: sacral decubitus ulcers present, right hip ulcer. ms3 Vital Signs: 02:23 BP 148 / 76; Pulse 176; Resp 35; Pulse Ox 97% on Venturi mask; Weight 58.97 kg (M); jb4 03:00 BP 110 / 72; Pulse 160; Resp 42; Temp 102.1(C); Pulse Ox 96% on Venturi mask; jb4 03:30 BP 132 / 72; Pulse 140; Resp 30; Temp 101.8(C); Pulse Ox 100% on Venturi mask; jb4 03:45 BP 154 / 71; Pulse 133; Resp 24; Temp 100.7(C); Pulse Ox 92% on Venturi mask; jb4 04:00 BP 147 / 75; Pulse 131; Resp 26; Temp 99.6(C); Pulse Ox 99% on Venturi mask; jb4 04:15 BP 154 / 81; Pulse 132; Resp 24; Temp 99.5(C); Pulse Ox 100% on R/A; jb4 04:30 BP 155 / 84; Pulse 125; Resp 23; Temp 99.0(C); Pulse Ox 100% on Venturi mask; jb4 04:45 BP 149 / 77; Pulse 126; Resp 22; Temp 98.9(C); Pulse Ox 100% on Venturi mask; jb4 05:30 BP 116 / 67; Pulse 117; Resp 16; Temp 98.7(C); Pulse Ox 100% on Venturi mask; jb4 06:30 BP 132 / 77; Pulse 111; Resp 17; Temp 98.0(C); Pulse Ox 100% on Venturi mask; jb4 02:23 venti mask applie to trach jb4 MDM: 02:35 Differential diagnosis: bacterial infection, URI, UTI, Sepsis. ms3 02:43 Patient medically screened. ms3 05:17 ED course: Patient meets septic shock criteria at this time A. Pneumonia B HR >90, Temp ms3 102.1. C LA >4. Patient has had blood cultures drawn, Meropenem given, 30 mL/Kg fluids given. . ED course: Sepsis re-evaluation complete. 05:42 Data reviewed: vital signs, nurses notes, lab test result(s), EKG, radiologic studies, ms3 and as a result, I will transfer. Data interpreted: conveyor monitor: rate is 115 beats/min, rhythm is normal sinus rhythm, regular, with no ectopy, Interpretation: normal rate, normal rhythm. Counseling: I had a detailed discussion with the patient and/or guardian regarding:. ED course: Discussed case with Dr De La Rosa and he accepts patient to ICU.. 06/16 02:32 Order name: Blood Culture Adult (2) ms3 06/16 02:32 Order name: CBC with Diff; Complete Time: 03:48 ms3 06/16 02:32 Order name: CMP; Complete Time: 03:15 ms3 06/16 02:32 Order name: Lactate; Complete Time: 03:48 ms3 06/16 02:32 Order name: Protime (+inr); Complete Time: 03:15 ms3 06/16 02:32 Order name: Ptt, Activated; Complete Time: 03:15 ms3 06/16 02:32 Order name: Urine Microscopic Only; Complete Time: 05:38 ms3 06/16 02:32 Order name: CXR XRAY ms3 06/16 03:09 Order name: Manual Differential; Complete Time: 03:48 EDMS 06/16 03:11 Order name: SARS-COV-2 RT PCR (Document "Date of Onset" if Symptomatic); Complete Time: tw5 05:38 06/16 03:36 Order name: ABG; Complete Time: 05:38 ms3 06/16 03:58 Order name: Urine Dipstick-Ancillary; Complete Time: 05:38 EDMS 06/16 04:19 Order name: Urine Culture EDMS 06/16 06:12 Order name: Lactate Sepsis 2 HR Follow-up EDMS 06/16 02:32 Order name: Accucheck; Complete Time: 03:16 ms3 06/16 02:32 Order name: Cardiac monitoring; Complete Time: 02:42 ms3 06/16 02:32 Order name: EKG - Nurse/Tech; Complete Time: 03:07 ms3 06/16 02:32 Order name: IV Saline Lock - Large Bore; Complete Time: 02:42 ms3 06/16 02:32 Order name: Labs collected and sent; Complete Time: 02:42 ms3 06/16 02:32 Order name: O2 Per Protocol; Complete Time: 02:42 ms3 06/16 02:32 Order name: O2 Sat Monitoring; Complete Time: 02:42 ms3 06/16 03:08 Order name: Tomasa; Complete Time: 03:08 jb4 06/16 04:29 Order name: RC AEROSOL TUBING EDMS 06/16 04:29 Order name: RC AEROSOL MAXIMUM/DAY EDMS EC:46 Rate is 176 beats/min. Rhythm is regular. QRS Fidelity is Normal. Clinical impression: ms3 Sinus tachycardia. Interpreted by me. Reviewed by me. Administered Medications: 02:45 CANCELLED (Physician Discretion): Midazolam 2 mg IVP once ms3 02:46 Not Given (Physician Discretion): NS 0.9% 1000 ml IV at 1000 ml once ms3 03:07 Drug: Acetaminophen Suppository 650 mg Route: CA; jb4 03:47 Follow up: Response: No adverse reaction; Marked relief of symptoms; Temperature is jb4 decreased 03:11 Drug: Midazolam 2 mg Route: IVP; Site: left upper arm; tw5 03:47 Follow up: Response: No adverse reaction jb4 03:15 Drug: NS 0.9% (30 ml/kg) 30 ml/kg Route: IV; Rate: bolus; Site: PICC; jb4 03:59 Drug: Meropenem 1 grams Route: IV; Rate: calculated rate; Site: PICC; jb4 Disposition: 06/17 02:55 Chart complete. ms3 Disposition Summary: 06/16/22 05:16 Transfer Ordered Transfer Location: [facility] ms3 Reason: Higher level of care ms3 Condition: Stable(06/16/22 05:16) ms3 Problem: new(06/16/22 05:16) ms3 Symptoms: are unchanged(06/16/22 05:16) ms3 Accepting Physician: Dr De La Rosa(06/16/22 07:10) jb4 Diagnosis - Fever, unspecified(06/16/22 05:16) ms3 - Tachycardia, unspecified(06/16/22 05:16) ms3 - Severe sepsis with septic shock ms3 Forms: - Medication Reconciliation Form ms3 - SBAR form ms3 Signatures: Dispatcher [employer] EDMS Preston Segura RN RN jb4 Lucero Chi RN RN eb1 Cameron Seay DO DO ms3 Emile Corie tw5 Elyse Henley PASera PASera sb4 Corrections: (The following items were deleted from the chart) 06/16 02:45 02:42 Midazolam 2 mg IVP once ordered. ms3 ms3 03:03 02:44 Intensive Care Unit ms3 eb1 03:03 02:44 ms3 eb1 05:16 02:44 Inpatient Admission ms3 ms3 05:16 02:44 Kristy Nolan ms3 ms3 05:16 02:44 Stable ms3 ms3 05:16 02:44 new ms3 ms3 05:16 02:44 are unchanged ms3 ms3 05:16 02:44 Standard ms3 ms3 05:16 02:44 Fever, unspecified ms3 ms3 05:16 02:44 Tachycardia, unspecified ms3 ms3 05:16 03:03 [facility] ER HOLD eb1 ms3 05:16 03:03 ERHOLD- eb1 ms3 05:44 05:16 ms3 ms3 07:10 05:44 Dr De La Rosa ms3 jb4
[2022-06-16 02:57] LABS: Absolute Lymphocytes (CBC) 2.4 K/uL (0.7-4.9); Hematocrit 32.7 % (36.0-45.0); MCV 81.5 fL (80-100); MPV 7.9 fL (7.6-11.3); RBC Red Blood Cell Count 4.01 M/uL (3.86-4.86)
[2022-06-16] MEDS ORDERED: NA CHLORIDE 0.9% 1,000 ML ONE ×2 (02:59→03:27)
[2022-06-16 03:00] LABS: Protime INR 1.04
[2022-06-16] MEDS ORDERED: ACETAMINOPHEN 650MG/RECT SUPP PR ONE (03:00)
[2022-06-16] MEDS ORDERED: MIDAZOLAM HCL 2 MG/2 ML INJ ONE (03:05)
[2022-06-16 03:13] LABS: Albumin 3.1 g/dL (3.4-5.0); Bilirubin Total 0.3 mg/dL (0.2-1.0); Potassium 4.2 mmol/L (3.5-5.1); Protein, Total 8.1 g/dL (6.4-8.2)
[2022-06-16 03:27] LABS: Blood Morphology Comment NOT SEEN (NOT SEEN); Platelet Estimate ADEQ
[2022-06-16] MEDS ORDERED: Meropenem 1000 MG/VIAL IV ONE (03:48)
[2022-06-16] MEDS ORDERED: NA CHLORIDE 0.9% 100 ML ONE (03:53)
[2022-06-16 03:58] LABS: Urine Blood Negative (Negative); Urine Glucose Negative (Negative); Urine Protein Negative (Negative); Urine Specific Gravity 1.025 (1.005-1.030)
[2022-06-16 04:03] LABS: Arterial Blood Carboxyhemoglob 0.9 % (0-1.5); Blood Gas Oxyhemoglobin 96.2 % (94-97); Blood O2 Saturation 98.3 % (92-98.5)
[2022-06-16 04:13] LABS: Urine Bacteria <20 /HPF (<20); Urine Mucus Slight /HPF (None Seen); Urine RBC <5 /HPF (None Seen)
--- NOTE | 2022-06-16 05:17 | ER ---
Nurse's Notes [facility] [place] Name: Angelique Villalobos Age: 46 yrs Sex: Female : 1975 Arrival Date: 06/16/2022 Time: : Bed 3 Private MD: Diagnosis: Fever, unspecified;Tachycardia, unspecified;Severe sepsis with septic shock Presentation: 06/16 02:23 Chief complaint: EMS states: [facility] staff called due to pt having an jb4 elevated heart rate. Pt was recently discharged from ICU. Has rhonchi SLAINA, hr in the 170-180's. Multiple pressure ulcers on heels, sacrum, and shoulders. Pt had an axillary temp of 103. Pt non-responsive. 02: Coronavirus screen: Client presents with at least one sign or symptom that may indicate jb4 coronavirus-19. Standard/surgical mask placed on the client. Ebola Screen: No symptoms or risks identified at this time. Initial Sepsis Screen: Does the patient meet any 2 criteria? RR > 20 per min. Temp <36.0*C (96.8*F)) or > 38.3*C (100.9*F). HR > 90 bpm. Yes Does the patient have a suspected source of infection? Yes: Skin breakdown/wound If YES to both, name of provider notified: Cameron Seay DO Risk Assessment: Do you want to hurt yourself or someone else? Patient reports no desire to harm self or others. Onset of symptoms was June 16, 2022. Transition of care: patient was received from another setting of care (long-term care facility), [facility]. 02: Method Of Arrival: EMS: [facility] jb4 02 Acuity: DELMER 1 jb4 Historical: - Allergies: 03:12 albuterol sulfate; jb4 - PMHx: 03:12 anoxic brain injury; MRSA; Hyperlipidemia; CVA; jb4 - PSHx: 03:12 PEG tube; tracheostomy; jb4 - Immunization history:: Adult Immunizations unknown. - Social history:: Smoking status: unknown. Screenin:30 Abuse screen: Denies threats or abuse. Nutritional screening: No deficits noted. jb4 Tuberculosis screening: No symptoms or risk factors identified. Fall Risk None identified. Assessment: 02:30 General: Appears distressed, ill, unkempt, Behavior is unresponsive. Pain: Unable to jb4 use pain scale. FLACC scale score is 0 out of 10. Neuro: Level of Consciousness is unresponsive. Cardiovascular: Pt is warm and diaphoretic. Rhythm is SVT. Respiratory: Airway is patent via trache Respiratory effort is even, labored, Respiratory pattern is symmetrical, tachypnea Breath sounds with rhonchi bilaterally. GI: No signs and/or symptoms were reported involving the gastrointestinal system. : No signs and/or symptoms were reported regarding the genitourinary system. EENT: No signs and/or symptoms were reported regarding the EENT system. Derm: Skin is diaphoretic, Skin is normal, Skin temperature is warm Decubitus located on bilateral heel(s). Derm: Decubitus located on right hip(s). Derm: Decubitus located on shoulder. Musculoskeletal: Range of motion: limited in all extremities, Decerebrate posturing. 03:31 Reassessment: No changes from previously documented assessment. jb4 03:59 Reassessment: Pt is now responsive to painful stimuli. Remains in decerebrate posturing.jb4 04:27 Reassessment: Symptoms have improved., pt is not as diaphoretic as earlier. jb4 Respiratory: Airway is patent Respiratory effort is even, unlabored, Respiratory pattern is symmetrical, tachypnea. 05:47 Cardiovascular: Patient's skin is warm and dry. Rhythm is sinus tachycardia. jb4 Respiratory: Airway is patent Respiratory effort is even, unlabored, Respiratory pattern is regular, symmetrical. 06:30 Reassessment:. Reassessment: Pt is now more awake, is opening her eyes and trying to jb4 move in bed. No s/s of pain or distress noted at this time. Vital Signs: 02:23 BP 148 / 76; Pulse 176; Resp 35; Pulse Ox 97% on Venturi mask; Weight 58.97 kg (M); jb4 03:00 BP 110 / 72; Pulse 160; Resp 42; Temp 102.1(C); Pulse Ox 96% on Venturi mask; jb4 03:30 BP 132 / 72; Pulse 140; Resp 30; Temp 101.8(C); Pulse Ox 100% on Venturi mask; jb4 03:45 BP 154 / 71; Pulse 133; Resp 24; Temp 100.7(C); Pulse Ox 92% on Venturi mask; jb4 04:00 BP 147 / 75; Pulse 131; Resp 26; Temp 99.6(C); Pulse Ox 99% on Venturi mask; jb4 04:15 BP 154 / 81; Pulse 132; Resp 24; Temp 99.5(C); Pulse Ox 100% on R/A; jb4 04:30 BP 155 / 84; Pulse 125; Resp 23; Temp 99.0(C); Pulse Ox 100% on Venturi mask; jb4 04:45 BP 149 / 77; Pulse 126; Resp 22; Temp 98.9(C); Pulse Ox 100% on Venturi mask; jb4 05:30 BP 116 / 67; Pulse 117; Resp 16; Temp 98.7(C); Pulse Ox 100% on Venturi mask; jb4 06:30 BP 132 / 77; Pulse 111; Resp 17; Temp 98.0(C); Pulse Ox 100% on Venturi mask; jb4 02:23 venti mask applie to trach jb4 ED Course: 02:23 Patient arrived in ED. ds4 02:30 Accessed PICC line. Clean \\T\\ dry. Dressing intact. Good blood return. Flushes easily. jb4 02:30 Arm band placed on right wrist. jb4 02:30 Patient has correct armband on for positive identification. Placed in gown. Bed in low jb4 position. Call light in reach. Side rails up X 1. Client placed on continuous cardiac and pulse oximetry monitoring. NIBP monitoring applied. receiving teller on. 02:31 Cameron Seay DO is Attending Physician. ms3 02:43 Kristy Nolan MD is Hospitalizing Provider. ms3 02:48 CXR XRAY In Process Unspecified. EDMS 03:08 Preston Segura, RN is Primary Nurse. jb4 03:08 Randolph cath inserted, using sterile technique, 16 Fr., by me, balloon inflated, urine tw5 specimen collected. returned clear yellow urine. 03:12 Triage completed. jb4 03:48 SARS-COV-2 RT PCR (Document "Date of Onset" if Symptomatic) Sent. eb1 04:45 Initiated transfer to [facility], spoke with Renae. wm 05:52 Pt accepted for transfer by Dr. Palmer \\T\\ [id number], per Renae Maher. 07:08 No provider procedures requiring assistance completed. Patient transferred, IV remains jb4 in place. Administered Medications: 02:45 CANCELLED (Physician Discretion): Midazolam 2 mg IVP once ms3 02:46 Not Given (Physician Discretion): NS 0.9% 1000 ml IV at 1000 ml once ms3 03:07 Drug: Acetaminophen Suppository 650 mg Route: NM; jb4 03:47 Follow up: Response: No adverse reaction; Marked relief of symptoms; Temperature is jb4 decreased 03:11 Drug: Midazolam 2 mg Route: IVP; Site: left upper arm; tw5 03:47 Follow up: Response: No adverse reaction jb4 03:15 Drug: NS 0.9% (30 ml/kg) 30 ml/kg Route: IV; Rate: bolus; Site: PICC; jb4 03:59 Drug: Meropenem 1 grams Route: IV; Rate: calculated rate; Site: PICC; jb4 Medication: 03:18 VIS not applicable for this client. jb4 Outcome: 02:44 Decision to Hospitalize by Provider. ms3 05:16 ER care complete, transfer ordered by MD. ms3 07:08 Transferred by ground EMS to [facility], Transfer form completed. X-rays sent jb4 w/ patient. 07:08 Condition: stable 07:08 Discharge instructions given to 07:10 Patient left the ED. jb4 Signatures: Dispatcher [employer] EDMS Suresh Gooden ds4 Preston Segura RN RN jb4 Lucero Chi RN RN eb1 Cameron Seay DO DO ms3 Heather Todd Tiffany tw5 Corrections: (The following items were deleted from the chart) 03:20 03:19 General: Appears jb4 jb4
--- NOTE | 2022-06-16 13:37 | EKG ---
Test Date: 2022-06-16 Test Time: 02:46:25 Payroll Examiner: RONY MEASUREMENT RESULTS: Intervals: Rate: 176 IA: QRSD: 62 QT: 266 QTc: 455 Bradford: P: IA: QRS: 51 T: 81 INTERPRETIVE STATEMENTS: Supraventricular tachycardia Cannot rule out Anterior infarct, age undetermined Abnormal ECG Compared to ECG 06/08/2022 16:41:12 Myocardial infarct finding now present Fusion complex(es) no longer present ST (T wave) deviation no longer present Electronically Signed On 06-16-22 13:36:21 CDT by Eddie Freeman
--- NOTE | 2022-06-16 15:50 | RAD REPORT ---
EXAM DESCRIPTION: Chest Single View CLINICAL HISTORY: 46 years Female FEVER TECHNIQUE: One view of the chest is compared to the prior day's exam. FINDINGS: Tracheostomy tube and left-sided PICC line remain in place. Stable retrocardiac infiltrate. No new airspace consolidation. No pleural effusion or pneumothorax. T he cardiomediastinal silhouette and central pulmonary vasculature are normal. No acute osseous abnorm alities. IMPRESSION: Stable retrocardiac infiltrate. Electronically signed by: Shelia Butler MD 06/16/2022 3:18 AM CDT Due to temporary technical issues with the PACS/Fluency reporting system, reports are being signed by the in house radiologists without review as a courtesy to insure prompt reporting. The interpreting radiologist is fully responsible for the content of the report.
[2022-06-17 23:40] VITALS: O2SAT 100
[2022-06-17 23:50] VITALS: BP 132/77; TEMP 98
== END 2022-06-16 07:10 | disposition short-term general hospital (02) ==
LOC: ER 02:22
DX: R50.9 Fever, unspecified (principal); R65.21 Severe sepsis with septic shock; R00.0 Tachycardia, unspecified; Z20.822 Contact with and (suspected) exposure to COVID-19; Z87.820 Personal history of traumatic brain injury
CPT/HCPCS: 36415; 51702; 71045; 80053; 81003; 81015; 82805; 83605; 85025; 85610; 85730; 87040; 87086; 87088; 93005; 99291; 99292; J2185; J2250; J7030; U0003

== ENCOUNTER 2022-07-11 10:35 | Inpatient (IN) | payer OTHER, SELFPAY ==
--- OUTSIDE RECORDS SUMMARY | 2022-07-11 10:49 | XMS REPORT | Continuity of Care Document ---
:1975 Author Organization [facility] t Address [address] [place] [address] Care Team Providers Name Role Phone Estela HODGSON, Maynor Sesay Attending Clinician Unavailable Belem Griggs MD Attending Clinician Unavailable Dajuan HODGSON, Aaron Attending Clinician Alisson Koo MD Attending Clinician ALISSON KOO Attending Clinician Unavailable BELEM GRIGGS Attending Clinician Unavailable Rosaura Attending Clinician Unavailable Keyshawn Betancourt Attending Clinician [phone] Magda Duval Attending Clinician [phone] Lorna Douglass Attending Clinician Unavailable BELEM GRIGGS Admitting Clinician Unavailable Rosaura Admitting Clinician Unavailable Manuel Rose Admitting Clinician Unavailable Payers Payer Name Policy Type Policy Number Effective Date Expiration Date [facility] MEDICAID - 000 [id number] - PENDING Problems Condition Condition Condition Status Onset Resolution Last Treating Co mments Source Name Details Category Date Date Treatment Clinician Date Severe Severe Disease Active [facility] Unintentio Unintentio Problem Active [facility] nal weight nal Weight 9- Me dical loss Loss 00:00: 00 Total Total Problem Active [facility] self-care Self-care -14 Medi simone deficit Deficit 00:00: 00 Lives in a Lives in a Problem Active [facility] nursing Nursing -14 Medical home Home 00:00: 00 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 Dysreflexi 08 Me dical a a 00:00: 00 Irritant Irritant Problem Active [facility] a contact Contact 06-02 Medical dermatitis Dermatitis 00:00: due to Due to 00 contact Contact with urine with Urine and/or And/or feces Feces 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 [facility] a of of 06-02 Medical autonomic Autonomic 00:00: nervous Nervous 00 system System Hypercoagu Hypercoagu Problem Active [facility] lability lability -12 Medica l state State 00:00: 00 Restlessne Restlessne Problem Active [facility] ss and ss and 12 Medical agitation Agitation 00:00: 00 Tetraplegi Tetraplegi Problem Active [facility] a a 8-12 Medical 00:00: 00 Dysphagia Dysphagia Problem Active Emily via as a late as a Late -12 Medi simone effect of Effect of 00:00: cerebrovas Cerebrovas 00 cular cular accident Accident Pneumonia Pneumonia Problem Active Emily via 8-12 Medical 00:00: 00 Spasm Spasm Problem Active [facility] 8-12 Medical 00:00: 00 Functional Functional Problem Active [facility] quadripleg Quadripleg 8-12 Me dical ia ia 00:00: 00 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 Incontinen 8-12 Me dical ce ce 00:00: 00 Unable to Unable to Problem Active [facility] via communicat Communicat 8-12 Me dical e e 00:00: 00 Unable to Unable to Problem Active [facility] via communicat Communicat 8-12 Me dical e needs e Needs 00:00: and wishes and Wishes 00 Hyperlipid Hyperlipid Problem Active [facility] emia emia Medical Major Major Problem Active [facility] depressive Depressive Me dical disorder Disorder History of History of Problem Active [facility] drug abuse Drug Abuse Me dical Cerebellar Cerebellar Problem Active [facility] stroke Stroke Medical syndrome Syndrome Chronic Chronic Problem Active [facility] hypoxemic Hypoxemic Medi simone respirator Respirator y failure y Failure Gastrostom Gastrostom Problem Active [facility] y y Medical History of History of Problem Active [facility] cerebellar Cerebellar Me dical stroke Stroke History of History of Problem Active [facility] anoxic Anoxic Medical brain 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 Emily via restless Restless Medica l legs Legs syndrome Syndrome Late Late Problem Active [facility] effects of Effects of Me dical cerebral Cerebral ischemic Ischemic stroke Stroke Allergies, Adverse Reactions, Alerts Allergy Allergy Status Severity Reaction(s) Onset Inactive Treating Comm ents Source Name Type Date Date Clinician Albutero Drug Active Severe Ventricul [facility] Sulfate [facility] Tachycard Medica l [facility] ia Center ALBUTERO Allergy Active High [facility] 06[facility]16 [facility] SULFATE 00:00: Medical 00 Center No DA Active [facility] Allergy 18 Lissie Informat 00:00: Healthc ion [address] [facility] No Known DA Active [facility] Allergie -18 Lissie s 00:00: Healthc [address] Social History Social Habit Start Date Stop Date Quantity Comments Source Tobacco use and 2022-06-21 2022-06-[address] [facility] kes exposure 00:00:00 00:00:00 [facility] Center Alcohol intake 2022-06-21 2022-06-21 Ex-drinker THONG Stackk es 00:00:00 00:00:00 (finding) [facility] Sex Assigned At [address] [facility] 00:00:00 00:[facility]:00 [facility] Smoking Status Start Date Stop Date Source Former smoker 2022-06-21 00:00:00 2022-06-21 00:00:00 THONG Davis jannie [facility] Medications Ordered Filled Start Stop Current Ordering Indication Dosage Frequency Signature Comments Components Source Medication Medication Date Date Medication? Clinician (SIG) Name Name acetylcyste 2021-09 Yes thick 4mL Q.[id number] Take [address] [address] ine 20% 0-01 bronchial [id number] by L ukes (MucoMYST) 15:09: secretions 3D nebulizati Medical 200 mg/mL 23 on 3 Center (20 %) (three) nebulizer times solution daily. baclofen 2021-09 Yes muscle 5mg Q.[id number] Take [address] [facility] (LIORESAL) 0-01 spasticity [id number] by mouth 3 [facility] 10 MG 15:09: of spinal 3D (three) Medi simone tablet 23 origin times Center daily. aspirin 81 2021-09 Yes 81mg QD Take [address] MG chewable 0-01 by mouth Luke s tablet 15:09: daily. Medical 23 Center clonazePAM 2021-09 Yes .5mg Q.5D Take 0.[address] (KlonoPIN) 0-01 mg by [facility] 0.5 MG 15:09: mouth 2 Medical tablet 23 (two) Center times daily. cloNIDine 2021-09 Yes .1mg Q.[id number] Take 0.[address] [facility] HCL 0-01 [id number] mg by [facility] (CATAPRES) 15:09: 3D mouth 3 Medi simone 0.1 MG 23 (three) Center tablet times daily. gabapentin 2021-09 Yes 100mg Q.[id number] Take [address] (NEURONTIN) 0-01 [id number] mg by L ukes 100 MG 15:09: 3D mouth 3 Medical capsule 23 (three) Center times daily. ipratropium 2021-09 Yes 500ug Take [address] (ATROVENT) 0-01 mcg by [facility] 0.02 % 15:09: nebulizati Medic al nebulizer 23 on every 6 Cent er solution (six) hours. atorvastati 2021-09 Yes hypertrigly 20mg QD Take [address] n (LIPITOR) 0-01 ceridemia by mouth [facility] 20 MG 15:09: daily. Medical tablet 23 Center polyethylen 2021-09 Yes 17g QD Take [address] e glycol 0-01 by mouth [facility] (GLYCOLAX) 15:09: daily. Medic al 17 gram 23 Center packet sertraline 2021-09 Yes 100mg QD Take [address] (ZOLOFT) 0-01 mg by [facility] 100 MG 15:09: mouth Medical tablet 23 daily. Center metoprolol 2021- No 25mg Q.5D Take [address] tartrate 06-24 by mouth 2 Luke s (LOPRESSOR) 10:03: 00:00 (two) Medi simone 25 MG 42 :00 times Center tablet daily. rivaroxaban 2021- No QD Take by [facility] (XARELTO) 06-24 mouth [facility] 10 mg 10:03: 00:00 nightly. Medical tablet 42 :00 Center neomycin-ba Yes 1{packe Q.5D Apply [address] citracnZn-p 06-24 t} packet [facility] olymyxnB 00:00: topically Medi simone (NEOSPORIN) 00 2 (two) Cente r 3.5-400-5,0 times 00 daily. mg-unit-uni t OiPk packet enoxaparin Yes 40mg Q24H Inject 0.[address] (LOVENOX) 06-24 mLs (40 mg Luke s 40 mg/0.4 00:00: total) Medica l mL Syrg 00 subcutaneo Center usly daily. propranoloL 2022- Yes 60mg Take [address] [facility] (INDERAL) 06-24 tablet (60 Lisseth es 60 MG 00:00: 23:59 mg total) Medica l tablet 00 :00 by mouth Center every 8 (eight) hours. polyvinyl 2021- Yes 1[drp] Place [address] alcohol 06-2430 drop into [facility] (LIQUITEARS 00:00: 23:59 both eyes Medical ARTIFICIAL 00 :00 4 (four) Cente r TEARS) 1.4 times % daily as ophthalmic needed for solution up to 30 days. sertraline sertraline No 1 Q1D sertraline [facility] 100 mg 100 mg 100 mg Medical tablet Take tablet Take tablet 1 tablet 1 tablet Take 1 every day every day tablet by oral by oral every day route. route. by oral route. Xarelto 10 Xarelto 10 No 1 Q1D Xarelto 10 [facility] mg tablet mg tablet mg tablet Medical Take 1 Take 1 Take 1 tablet tablet tablet every day every day every day by oral by oral by oral route at route at route at bedtime. bedtime. bedtime. acetylcyste acetylcyste No acetylcyst [facility] ine 200 ine 200 eine 200 Medic al mg/mL (20 mg/mL (20 mg/mL (20 %) solution %) solution %) INHALE 3 INHALE 3 solution MILLILITERS MILLILITERS INHALE 3 BY BY MILLILITER NEBULIZATIO NEBULIZATIO S BY N ROUTE 3 N ROUTE 3 NEBULIZATI TIMES PER TIMES PER ON ROUTE 3 DAY DAY TIMES PER DAY atorvastati atorvastati No 1 Q1D atorvastat [facility] n 20 mg n 20 mg in 20 mg Medic al tablet Take tablet Take tablet 1 tablet 1 tablet Take 1 every day every day tablet by oral by oral every day route. route. by oral route. baclofen 5 baclofen 5 No 1 TID baclofen 5 [facility] mg tablet mg tablet mg tablet Medical Take 1 Take 1 Take 1 tablet 3 tablet 3 tablet 3 times a day times a day times a by oral by oral day by route. route. oral route. clonidine clonidine No 1 TID clonidine [facility] HCl 0.1 mg HCl 0.1 mg HCl 0.1 mg Medical tablet Take tablet Take tablet 1 tablet 3 1 tablet 3 Take 1 times a day times a day tablet 3 by oral by oral times a route. route. day by oral route. gabapentin gabapentin No 1capsul Q8H gabapentin [facility] 100 mg 100 mg e(s) 100 mg Medical capsule capsule capsule Take 1 Take 1 Take 1 capsule capsule capsule every 8 every 8 every 8 hours by hours by hours by oral route. oral route. oral route. ipratropium ipratropium No 1mL Q6H ipratropiu [facility] bromide bromide m bromide Medi simone 0.02 % 0.02 % 0.02 % solution solution solution for for for inhalation inhalation inhalation Inhale 1 mL Inhale 1 mL Inhale 1 every 6 every 6 mL every 6 hours by hours by hours by inhalation inhalation inhalation route. route. route. Miralax 17 Miralax 17 No 17g Q1D Miralax 17 [facility] gram/dose gram/dose gram/dose Medical oral powder oral powder oral Take 17 g Take 17 g powder every day every day Take 17 g by oral by oral every day route. route. by oral route. Vital Signs Vital Name Observation Time Observation Value Comments Source WEIGHT 2022-06-24 05:41:00 54.749 kg WEIGHT 2022-06-21 04:07:00 57.38 kg WEIGHT 2022-06-19 05:00:00 56.7 kg WEIGHT 2022-06-18 05:05:00 59.875 kg WEIGHT 2022-06-17 02:00:00 50.4 kg HEIGHT 2022-06-16 09:30:00 160 cm WEIGHT 2022-06-16 09:00:00 53.1 kg WEIGHT 2022-06-24 05:41:00 54.749 kg WEIGHT 2022-06-21 04:07:00 57.38 kg WEIGHT 2022-06-19 05:00:00 56.7 kg WEIGHT 2022-06-18 05:05:00 59.875 kg WEIGHT 2022-06-17 02:00:00 50.4 kg HEIGHT 2022-06-16 09:30:00 160 cm WEIGHT 2022-06-16 09:00:00 53.1 kg BP Diastolic 2022-06-07 00:00:00 78 mm[Hg] [facility] Height 2022-06-07 00:00:00 62 [in_i] [facility] BMI (Body Mass Index) 2022-06-07 00:00:00 20.2 kg/m2 [facility] BP Systolic 2022-06-07 00:00:00 135 mm[Hg] [facility] Body Weight 2022-06-07 00:00:00 1768 [oz_av] [facility] Heart rate 2022-06-25 12:00:00 88 /min [facility] Systolic blood 2022-06-25 11:00:00 105 mm[Hg] [facility] Diastolic blood 2022-06-25 11:00:00 63 mm[Hg] [facility] Body temperature 2022-06-25 11:00:00 36.5 Pari [facility] Respiratory rate 2022-06-25 11:00:00 19 /min [facility] Oxygen saturation in 2022-06-25 11:00:00 98 /min [facility] Arterial blood by Medical Ce nter Pulse oximetry Body weight 2022-06-24 05:41:00 54.749 kg [facility] BMI 2022-06-24 05:41:00 21.38 kg/m2 [facility] Body height 2022-06-16 09:30:00 160 cm [facility] Procedures Procedure Date / Time Performing Clinician Source Performed POCT-GLUCOSE METER 2022-06-25 11:16:00 Opal [facility] POCT-GLUCOSE METER 2022-06-25 06:17:00 Opal [facility] PHOSPHORUS 2022-06-25 05:29:00 Shira [facility] CBC W/PLT COUNT & AUTO 2022-06-25 05:29:00 [facility] COMPREHENSIVE METABOLIC 2022-06-25 05:29:00 [facility]/FREE T4 IF INDICATED 2022-06-25 05:29:00 Opal [facility] CBC W/PLT COUNT & AUTO 2022-06-25 05:29:00 [facility] DIFFERENTIAL [facility] Center POCT-GLUCOSE METER 2022-06-25 00:39:00 Opal [facility] POCT-GLUCOSE METER 2022-06-24 18:00:00 Opal [facility] CBC W/PLT COUNT & AUTO 2022-06-24 15:41:00 Opal [facility] PROTHROMBIN TIME/INR 2022-06-24 15:41:00 Opal [facility] CBC W/PLT COUNT & AUTO 2022-06-24 15:41:00 Opal [facility] XR CHEST 1 VIEW PORTABLE 2022-06-24 14:22:00 Opal [facility] BEDSIDE Center ECG 12-LEAD 2022-06-24 13:42:56 Unknown, Hl7 Doctor [facility] ECG 12-LEAD 2022-06-24 13:41:12 Unknown, Hl7 Doctor [facility] POCT-GLUCOSE METER 2022-06-24 11:13:00 Opal [facility] POCT-GLUCOSE METER 2022-06-24 06:34:00 Opal [facility] PHOSPHORUS 2022-06-24 03:37:00 [facility] W/PLT COUNT & AUTO 2022-06-24 03:37:00 Bilal [facility] DIFFERENTIAL Dario [facility] 2022-06-24 03:37:00 [facility] PANEL [facility] CBC W/PLT COUNT & AUTO 2022-06-24 03:37:00 [facility] POCT-GLUCOSE METER 2022-06-24 00:27:00 Opal [facility] POCT-GLUCOSE METER 2022-06-23 17:44:00 Opal [facility] SARS-COV2/RT-PCR ([facility] & 2022-06-23 13:18:00 [facility] POCT-GLUCOSE METER 2022-06-23 11:05:00 Opal [facility] POCT-GLUCOSE METER 2022-06-23 06:57:00 Opal [facility] POCT-GLUCOSE METER 2022-06-23 06:35:00 Opal [facility] PHOSPHORUS 2022-06-23 03:36:00 [facility] W/[facility]T COUNT & AUTO 2022-06-23 03:36:00 Bilal [facility] DIFFERENTIAL Dario [facility] 2022-06-23 03:36:00 [facility] CBC W/PLT COUNT & AUTO 2022-06-23 03:36:00 Bilal [facility] DIFFERENTIAL [facility] POCT-GLUCOSE METER 2022-06-22 23:34:00 Opal [facility] POCT-GLUCOSE METER 2022-06-22 17:55:00 Opal [facility] EEG 2-12 HR CONTINUOUS 2022-06-22 14:06:00 Opal [facility] MONITORING WITH VIDEO Center POCT-GLUCOSE METER 2022-06-22 11:43:00 Opal [facility] VANCOMYCIN LEVEL, TROUGH 2022-06-22 09:36:00 [facility] POCT-GLUCOSE METER 2022-06-22 07:38:00 Opal [facility] EEG 12-26 HR CONTINUOUS 2022-06-22 06:38:00 Opal [facility] MONITORING WITH VIDEO Center POCT-GLUCOSE METER 2022-06-22 04:35:00 Opal [facility] PHOSPHORUS 2022-06-22 03:01:00 Saulcarerebecca [facility] CBC W/PLT COUNT & AUTO 2022-06-22 03:01:00 [facility] DIFFERENTIAL [facility] COMPREHENSIVE METABOLIC 2022-06-22 03:01:00 [facility] PANEL [facility] CBC W/PLT COUNT & AUTO 2022-06-22 03:01:00 [facility] DIFFERENTIAL [facility] POCT-GLUCOSE METER 2022-06-22 00:24:00 Opal [facility] POCT-GLUCOSE METER 2022-06-21 17:59:00 Opal [facility] POCT-GLUCOSE METER 2022-06-21 10:57:00 Opal [facility] POCT-GLUCOSE METER 2022-06-21 06:42:00 Opal [facility] PHOSPHORUS 2022-06-21 04:04:00 Ciccarello, Shira [facility] CBC W/PLT COUNT & AUTO 2022-06-21 04:04:00 [facility]gan[facility]ENTIAL [facility] 2022-06-21 04:04:00 Morgan [facility] PANEL [facility] CBC W/PLT COUNT & AUTO 2022-06-21 04:04:00 Morgan [facility] DIFFERENTIAL [facility] POCT-GLUCOSE METER 2022-06-21 02:03:00 Alisson Koo [facility] CT BRAIN WITHOUT IV 2022-06-20 21:41:00 Lucy [facility] CONTRAST [place] HIGH SENSITIVITY 2022-06-20 20:18:00 [facility] 2022-06-20 20:14:00 Lucy [facility] CBC W/PLT COUNT & AUTO 2022-06-20 20:14:00 [facility] DIFFERENTIAL [place] LACTIC ACID, VENOUS 2022-06-20 20:14:00 Lucy [facility] MAGNESIUM 2022-06-20 20:14:00 Lucy [facility] PHOSPHORUS 2022-06-20 20:14:00 [facility] CBC W/PLT COUNT & AUTO 2022-06-20 20:14:00 Lucy [facility] DIFFERENTIAL [place] POCT-BLOOD GASES, VENOUS 2022-06-20 20:04:00 [facility] PO[facility]-SODIUM 2022-06-20 20:04:00 Opal [facility] POCT-POTASSIUM 2022-06-20 20:04:00 Opal [facility] POCT-HEMOGLOBIN 2022-06-20 20:04:00 Opal [facility] POCT-HEMATOCRIT 2022-06-20 20:04:00 Opal [facility] POCT-GLUCOSE 2022-06-20 20:04:00 Opal [facility] XR CHEST 1 VIEW PORTABLE 2022-06-20 19:46:00 Opal [facility] BEDSIDE [place] POCT-GLUCOSE METER 2022-06-20 19:22:00 Opal [facility] POCT-GLUCOSE METER 2022-06-20 17:49:00 Opal [facility] POCT-GLUCOSE METER 2022-06-20 10:54:00 Opal [facility] POCT-GLUCOSE METER 2022-06-20 05:34:00 Opal [facility] PHOSPHORUS 2022-06-20 03:29:00 [facility] POCT-GLUCOSE METER 2022-06-20 00:18:00 Opal [facility] POCT-GLUCOSE METER 2022-06-19 18:23:00 Opal [facility] POCT-GLUCOSE METER 2022-06-19 12:01:00 Opal [facility] POCT-GLUCOSE METER 2022-06-19 06:46:00 Opal [facility] CBC (HEMOGRAM ONLY) 2022-06-19 05:19:00 [facility] BASIC METABOLIC PANEL 2022-06-19 05:19:00 [facility] MAGNESIUM 2022-06-19 05:19:00 [facility] PHOSPHORUS 2022-06-19 05:19:00 [facility] POCT-GLUCOSE METER 2022-06-19 00:34:00 Opal [facility] POCT-GLUCOSE METER 2022-06-18 18:12:00 Opal [facility] VANCOMYCIN LEVEL, TROUGH 2022-06-18 18:02:00 MarlenyShira [facility] POCT-GLUCOSE METER 2022-06-18 12:04:00 Opal [facility] POCT-GLUCOSE METER 2022-06-18 05:56:00 Aaron Moreau [facility] CBC (HEMOGRAM ONLY) 2022-06-18 04:58:00 Marleny [facility] BASIC METABOLIC PANEL 2022-06-18 04:58:00 [facility] 2022-06-18 04:58:00 [facility]US 2022-06-18 04:58:00 [facility] POCT-GLUCOSE METER 2022-06-17 21:47:00 Aaron Moreau [facility] POCT-GLUCOSE METER 2022-06-17 19:12:00 Aaron Moreau [facility] BASIC METABOLIC PANEL 2022-06-17 16:44:00 [facility] HEMO[facility] AND 2022-06-17 16:44:00 [facility] MAGNESIUM 2022-06-17 14:53:00 [facility] BASIC METABOLIC PANEL 2022-06-17 13:54:00 [facility] 2D ECHO W/ DOPPLER 2022-06-17 11:23:00 [facility] (CW/PW/COLOR) [facility] POCT-GLUCOSE METER 2022-06-17 11:12:00 Belem Griggs [facility] VENOUS DOPPLER LEGS 2022-06-17 10:00:00 [facility] POCT-GLUCOSE METER 2022-06-17 05:52:00 Indu [facility] CBC (HEMOGRAM ONLY) 2022-06-17 04:05:00 Marleny [facility] Hospital BASIC METABOLIC PANEL 2022-06-17 04:05:00 Marleny [facility] MAGNESIUM 2022-06-17 04:05:00 Marleny [facility] PHOSPHORUS 2022-06-17 04:05:00 Marleny [facility] XR CHEST 1 VIEW PORTABLE 2022-06-17 00:55:00 Shira [facility] POCT-GLUCOSE METER 2022-06-16 23:35:00 Indu [facility] POCT-GLUCOSE METER 2022-06-16 17:19:[address] [facility] [address] BRAIN WITHOUT IV 2022-06-16 13:55:00 Marleny [facility] XR CHEST 1 VIEW PORTABLE 2022-06-16 13:05:00 Shira [facility] BLOOD CULTURE 2022-06-16 12:20:00 [facility] hospitalre[facility] BLOOD CULTURE 2022-06-16 10:58:00 [facility] hospital[facility] SPUTUM CULTURE + GRAM 2022-06-16 09:48:00 Marleny [facility] SARS-COV2/RT-PCR (HS & 2022-06-16 09:48:00 Shira Farmer [facility] REF [facility] CBC (HEMOGRAM ONLY) 2022-06-16 09:48:00 Marleny [facility] BASIC METABOLIC PANEL 2022-06-16 09:48:00 [facility] hospital[facility] HEPATIC FUNCTION PANEL 2022-06-16 09:48:00 Ciccarello, [facility] [place] LACTIC ACID, VENOUS 2022-06-16 09:48:00 Salukeenan private hospitalShira [facility]ernandez [facility] [place] PROCALCITONIN 2022-06-16 09:48:00 [facility] hospitalShira fernandez [facility] [place] URINALYSIS W/ REFLEX 2022-06-16 09:48:00 [facility] URINE CULTURE [facility] BLOOD GAS, VENOUS 2022-06-16 09:48:00 [facility] hospitalShira fernandez [facility] [id number] 2022-03-21 00:00:00 MITVI [facility] [id number] 2022-03-20 00:00:00 MAIAN01 [facility] [id number] 2022-02-17 00:00:00 LEESE.01 [facility] [id number] 2022-02-17 00:00:00 LEESE.01 [facility] [id number] 2022-02-17 00:00:00 LEESE.01 [facility] Tracheostomy 2022-02-17 00:00:00 [facility] [id number] 2022-02-09 00:00:00 LEESE.01 [facility] Gastrostomy [facility] Plan of Care Planned Activity Planned Date Details Comments Source Future Scheduled 2022-05-26 INFLUENZA VACCINE (#1) [facility] 00:00:00 [code = INFLUENZA Medical Ce nter VACCINE (#1)] Future Scheduled 2021 Lipid panel (procedure) [facility] 00:00:00 [code = 14803435] Medical Ce nter Future Scheduled 2021-09-[address] [facility] Test 00:00:00 (12+) [code = Medical Center DEPRESSION SCREENING (12+)] Future Scheduled 1997 Screening for malignant [facility] Test 00:00:00 neoplasm of cervix Medical C enter (procedure) [code = 146776719] Future Scheduled 1995-12-27 DTAP/TDAP/TD VACCINES [facility] 00:00:00 (1 - Tdap) [code = Medical C enter DTAP/TDAP/TD VACCINES (1 - Tdap)] Future Scheduled 1994 HEPATITIS C SCREENING [facility] 00:00:00 [facility] Future Scheduled [address] [facility] 00:00:00 0-64 YRS (1 - PCV) Medical C enter [code = PNEUMOCOCCAL VACCINE 0-64 YRS (1 - PCV)] Future Scheduled 1977-06-27 COVID-19 VACCINE (#1) [facility] 00:[facility]:00 [code = COVID-[address] VACCINE (#1)] Future Scheduled 1976 CT Colonography (combo) [facility] Test 00:00:00 [code = CT Colonography [facility] (combo)] Future Scheduled 1976 Screening for malignant [facility] 00:00:00 neoplasm of colon Medical Ce nter (procedure) [code = 452225458] Future Scheduled 1976 Screening for malignant [facility] Test 00:00:00 neoplasm of colon Medical Ce nter (procedure) [code = 362055283] Future Scheduled 1976 Screening for malignant [facility] Test 00:00:00 neoplasm of colon Medical Ce nter (procedure) [code = 745710848] Future Scheduled 1976 Screening for malignant [facility] 00:00:00 neoplasm of colon Medical Ce nter (procedure) [code = 290450184] Future Scheduled 1975 Sigmoidoscopy [code = [facility] S[facility]oscopy] Medical Cente r Encounters Start End Encounter Admission Attending Care Care Encounter Source Date/Time Date/Time Type Type Clinicians Facility Department ID 2022-06-16 2022-06-25 Hospital ER CasiMaynor Waddell [facility] [id number] [facility] 08[facility] 15:09:00 Encounter Belem Griggs Fang[facility] 2022-06-25 Inpatient ER AYO KOO General Med [id number] [facility] 08:21:00 15:09:00 [facility] 2022-06-24 2022-06-24 Orders [facility] [id number] 00:00:00 00:00:00 Only [facility] 2022-06-16 2022-06-16 Outpatient DENITAJavierTATIANNA [id number] [place] 00:00:00 00:00:00 JNJANNY Almazanchana garcia 2022-06-16 2022-06-16 Outpatient GC_BAHC_Tod PRIV PRIV [id number] [facility] 00:00:00 00:00:00 d_J [id number] Medica l 2022-06-09 2022-06-09 Outpatient GC_BAHC_Tod PRIV PRIV [id number] [facility] 00:00:00 00:00:00 d_J [id number] Medica l 2022-06-07 2022-06-07 Outpatient GC_BAHC_Tod PRIV PRIV 246 [id number] [facility] 00:00:00 00:00:00 d_J [id number] Medica l 2022-06-07 2022-06-07 Magda [facility] [id number] [facility] 00:00:00 00:00:00 VALENTINO Duval: Health - Med ical [address] [address] , Ph. 2022-06-02 2022-06-02 Outpatient BASILIO Betancourt [facility] [id number] 00:00:00 00:00:00 Keyshawn Alcantar [id number] 2022-06-02 2022-06-02 Keyshawn Alcantar [facility] [id number] [facility] 00:00:00 00:00:00 [facility] - Med ical MD: [address] [address] , Ph. 2022-05-24 2022-05-24 Outpatient BASILIO Duval PRIV [id number] 00:00:00 00:00:00 Magda [id number] 2022-05-24 2022-05-24 Magda [facility] [id number] [facility] 00:00:00 00:00:00 VALENTINO Duval: Health - Med ical [address] [address] , Ph. 2022-05-06 2022-05-06 Outpatient GC_BAHC_Tod PRIV PRIV 246 [id number] [facility] 00:00:00 00:00:00 d_J [id number] Medica l 2022-04-26 2022-04-26 Outpatient GC_BAHC_Tod PRIV PRIV 246 [id number] [facility] 00:00:00 00:00:00 d_J [id number] Medica l 2022-04-26 2022-04-26 Outpatient Mukund, PRIV PRIV [id number] 00:00:00 00:00:00 Magda [id number] 2022-04-22 2022-04-22 Outpatient GC_BAHC_Tod PRIV PRIV [id number] [facility] 00:00:00 00:00:00 d_J [id number] Medica l 2022-02-09 2022-04-20 Inpatient EM Lorna Douglass HCANW CARDIAC [id number] [facility] 05:41:00 17:44:00 57 [facility] 2022-02-09 2022-04-20 Inpatient EM Lorna Douglass HCANW CARDIAC [id number] [facility] 05:41:00 17:44:00 [id number] [facility] Results Test Description Test Time Test Comments Results Result Comments Source POC-Glucose meter 2022-06-25 11:27:31 Test Item Value Reference Range Interpretation Comme [facility] POC-Glucose Meter (test code = 138 mg/dL 70-110 H : TESTED AT [facility] [address] [facility] 1539) [facility], [facility] 30: Trekking Guide/Techni amaya ID = [id number] for Crista Hillman Lab Interpretation (test code = Abnormal 44533-8) [facility] [id number] 11:27:31 Test Item Value Reference Range Interpretation Comments POC-GLUCOSE METER 138 mg/dL 70-110 H : TESTED A T [facility] 6720 (BEAKER) (test code = [place], 1538) [address]: Trekking Guide/Techni amaya ID = [id number] for Martha Hillman TSH/FREE T4 IF [id number] 06:57:34 Test Item Value Reference Range Interpretation Comments THYROID STIMULATING HORMONE 0.620 uIU/mL 0.350-4.940 (BEAKER) (test code = 772) Trekking Guide ID - AMADO [id number] 06:47:51 Test Item Value Reference Range Interpretation Comments PHOSPHORUS (BEAKER) (test code = 5.0 mg/dL 2.3-4.7 H 604) Trekking Guide ID - AMADO MCOMPREHENSIVE METABOLIC [id number] 06:47:50 Test Item Value Reference Range Interpretation Comments TOTAL PROTEIN 7.4 gm/dL 6.0-8.3 (BEAKER) (test code = 770) ALBUMIN (BEAKER) 3.6 g/dL 3.5-5.0 (test code = 1145) ALKALINE 83 U/L 40-150 PHOSPHATASE (BEAKER) (test code = 346) BILIRUBIN TOTAL 0.3 mg/dL 0.2-1.2 (BEAKER) (test code = 377) SODIUM (BEAKER) 141 meq/L 136-145 (test code = 381) POTASSIUM (BEAKER) 4.2 meq/L 3.5-5.1 (test code = 379) CHLORIDE (BEAKER) 101 meq/L 98-107 (test code = 382) CO2 (BEAKER) (test 34 meq/L 22-29 H code = 355) BLOOD UREA 20 mg/dL 7-21 NITROGEN (BEAKER) (test code = 354) CREATININE 0.59 mg/dL 0.57-1.25 (BEAKER) (test code = 358) GLUCOSE RANDOM 110 mg/dL 70-105 H (BEAKER) (test code = 652) CALCIUM (BEAKER) 10.1 mg/dL 8.4-10.2 (test code = 697) AST (SGOT) 34 U/L 5-34 (BEAKER) (test code = 353) ALT (SGPT) 28 U/L 6-55 (BEAKER) (test code = 347) EGFR (BEAKER) 113 Interpretatio n of eGFR (test code = 1092) mL/min/1.[address] age Description sq m Result G1 Leigh l or high >=90 G2 Mildly decreased 60-89 G3a Mildl y to moderately 45-5 9 G3b Moderately to s everely 30-44 G4 Severl y decreased 15-29 G5 Kidney failure <15Reported eGF R is based on the CKD-EPI 2020 equation that d oes not use a race coefficientEsti mated GFR is not as accur ate as Creatinine Neda pedro in predicting glom erular filtration rate . Estimated GFR is not appl icable for dialysis patien ts Trekking Guide ID - AMADO MPOCT-GLUCOSE [id number] 06:29:35 Test Item Value Reference Range Interpretation Comments POC-GLUCOSE METER 142 mg/dL 70-110 H : TESTED A T [facility] 6720 ([facility]) (test code = [place] C[place] [facility], 1538) [address]: Trekking Guide/Techni amaya ID = [id number] for Shira Zamora CBC W/PLT COUNT & AUTO [id number] 06:13:59 Test Item Value Reference Range Interpretation Comments WHITE BLOOD CELL COUNT (BEAKER) 6.6 K/ L 3.5-10.5 (test code = 775) RED BLOOD CELL COUNT (BEAKER) 3.74 M/ L 3.93-5.22 L (test code = 761) HEMOGLOBIN (BEAKER) (test code = 10.1 GM/DL 11.2-15.7 L 410) HEMATOCRIT (BEAKER) (test code = 31.7 % 34.1-44.9 L 411) MEAN CORPUSCULAR VOLUME (BEAKER) 85 fL 79-95 (test code = 753) MEAN CORPUSCULAR HEMOGLOBIN 27.0 pg 25.6-32.2 (BEAKER) (test code = 751) MEAN CORPUSCULAR HEMOGLOBIN CONC 31.9 GM/DL 32.2-35.5 L (BEAKER) (test code = 752) RED CELL DISTRIBUTION WIDTH 14.8 % 11.7-14.4 H (BEAKER) (test code = 412) PLATELET COUNT (BEAKER) (test 351 K/CU MM 150-450 code = 756) MEAN PLATELET VOLUME (BEAKER) 10.0 fL 9.4-12.3 (test code = 754) NUCLEATED RED BLOOD CELLS 0 /100 WBC 0-0 (BEAKER) (test code = 413) NEUTROPHILS RELATIVE PERCENT 61 % (BEAKER) (test code = 429) LYMPHOCYTES RELATIVE PERCENT 27 % (BEAKER) (test code = 430) MONOCYTES RELATIVE PERCENT 9 % (BEAKER) (test code = 431) EOSINOPHILS RELATIVE PERCENT 3 % (BEAKER) (test code = 432) BASOPHILS RELATIVE PERCENT 1 % (BEAKER) (test code = 437) NEUTROPHILS ABSOLUTE COUNT 3.99 K/ L 1.56-6.13 (BEAKER) (test code = 670) LYMPHOCYTES ABSOLUTE COUNT 1.75 K/ L 1.18-3.74 (BEAKER) (test code = 414) MONOCYTES ABSOLUTE COUNT (BEAKER) 0.58 K/ L 0.24-0.36 H (test code = 415) EOSINOPHILS ABSOLUTE COUNT 0.18 K/ L 0.04-0.36 (BEAKER) (test code = 416) BASOPHILS ABSOLUTE COUNT (BEAKER) 0.04 K/ L 0.01-0.08 (test code = 417) IMMATURE GRANULOCYTES-RELATIVE 0.30 % 0.00-1.00 PERCENT (BEAKER) (test code = 2801) POCT-GLUCOSE [id number] 00:50:48 Test Item Value Reference Range Interpretation Comments POC-GLUCOSE METER 125 mg/dL 70-110 H : TESTED A T [facility] 6720 (BEAKER) (test code = [facility], 1538) [address]: Trekking Guide/Techni amaya ID = [id number] for Sera, Shira POCT-GLUCOSE [id number] 18:12:31 Test Item Value Reference Range Interpretation Comments POC-GLUCOSE METER 132 mg/dL 70-110 H : TESTED A T [facility] 6720 (BEAKER) (test code = [facility] [employer] [facility], 1538) [address]: Trekking Guide/Techni amaya ID = [id number] for Hillman, Martha PROTHROMBIN [id number] 17:11:45 Test Item Value Reference Range Interpretation Comments PROTIME (BEAKER) 13.0 seconds 11.9-14.2 (test code = 759) INR (BEAKER) (test 1.04 See_Comment [Automat ed message] code = 370) The system [employer] generated this result transmitted ref erence range: <=5.90. The reference range was not used to int erpret this result as normal/abnormal . RECOMMENDED COUMADIN/WARFARIN INR THERAPY RANGESSTANDARD DOSE: 2.0 - 3.0 Includes: PROPHYLAXIS for venous thrombosis, systemic embolization; TREATMENT for venous thrombosis and/or pulmonary embolus.HIGH RISK: Target INR is 2.5-3.5 for patients with mechanical heart valves.CBC W/PLT COUNT & AUTO [id number] 16:51:46 Test Item Value Reference Range Interpretation Comments WHITE BLOOD CELL COUNT (BEAKER) 10.2 K/ L 3.5-10.5 (test code = 775) RED BLOOD CELL COUNT (BEAKER) 3.90 M/ L 3.93-5.22 L (test code = 761) HEMOGLOBIN (BEAKER) (test code = 10.3 GM/DL 11.2-15.7 L 410) HEMATOCRIT (BEAKER) (test code = 32.7 % 34.1-44.9 L 411) MEAN CORPUSCULAR VOLUME (BEAKER) 83.8 fL 79.4-94.8 (test code = 753) MEAN CORPUSCULAR HEMOGLOBIN 26.4 pg 25.6-32.2 (BEAKER) (test code = 751) MEAN CORPUSCULAR HEMOGLOBIN CONC 31.5 GM/DL 32.2-35.5 L (BEAKER) (test code = 752) RED CELL DISTRIBUTION WIDTH 14.7 % 11.7-14.4 H (BEAKER) (test code = 412) PLATELET COUNT (BEAKER) (test 406 K/CU MM 150-450 code = 756) MEAN PLATELET VOLUME (BEAKER) 10.5 fL 9.4-12.3 (test code = 754) NUCLEATED RED BLOOD CELLS 0 /100 WBC 0-0 (BEAKER) (test code = 413) NEUTROPHILS RELATIVE PERCENT 78 % (BEAKER) (test code = 429) LYMPHOCYTES RELATIVE PERCENT 16 % (BEAKER) (test code = 430) MONOCYTES RELATIVE PERCENT 4 % (BEAKER) (test code = 431) EOSINOPHILS RELATIVE PERCENT 1 % (BEAKER) (test code = 432) BASOPHILS RELATIVE PERCENT 0 % (BEAKER) (test code = 437) NEUTROPHILS ABSOLUTE COUNT 7.94 K/ L 1.56-6.13 H (BEAKER) (test code = 670) LYMPHOCYTES ABSOLUTE COUNT 1.58 K/ L 1.18-3.74 (BEAKER) (test code = 414) MONOCYTES ABSOLUTE COUNT (BEAKER) 0.45 K/ L 0.24-0.36 H (test code = 415) EOSINOPHILS ABSOLUTE COUNT 0.14 K/ L 0.04-0.36 (BEAKER) (test code = 416) BASOPHILS ABSOLUTE COUNT (BEAKER) 0.04 K/ L 0.01-0.08 (test code = 417) IMMATURE GRANULOCYTES-RELATIVE 0 % 0-1 PERCENT (BEAKER) (test code = 2801) RAD, CHEST, 1 VIEW, NON [id number] 14:54:00Reason for exam:->SOBShould this be performed at the bedside?->Yes [facility] : 1975 Sex: FFINAL REPORT RAD, CHEST, 1 VIEW, NON DEPT INDICATION: SOB COMPARISON: 06/20/2022 TECHNIQUE: Portable frontal view of the chest. FINDINGS: Support Lines and Devices: Stable. Lungs and pleura: Unchanged airspace and pleural opacities. No pneumothorax identified. Heart and mediastinum: Stable contours. Stable surgical changes. Additional findings: None. IMPRESSION: No significant change from prior exam. No focal consolidation. Signed: Benjamin Hercules MDReport Verified Date/Time: 06/24/2022 14:54:31 Reading Location: [address] Reading Room -GLUCOSE [id number] 11:25:55 Test Item Value Reference Range Interpretation Comments POC-GLUCOSE METER 141 mg/dL 70-110 H : TESTED A T [facility] 6720 (BEAKER) (test code = [place] [facility], 1538) [address]: Trekking Guide/Techni amaya ID = [id number] for Martha Hillman POCT-GLUCOSE [id number] 06:47:49 Test Item Value Reference Range Interpretation Comments POC-GLUCOSE METER 119 mg/dL 70-110 H : TESTED A T [facility] 6720 (BEAKER) (test code = [place] [facility], 1538) [address]: Trekking Guide/Techni amaya ID = [id number] for TIM ABDULLAHI COMPREHENSIVE METABOLIC [id number] 04:52:02 Test Item Value Reference Range Interpretation Comments TOTAL PROTEIN 7.2 gm/dL 6.0-8.3 (BEAKER) (test code = 770) ALBUMIN (BEAKER) 3.4 g/dL 3.5-5.0 L (test code = 1145) ALKALINE 81 U/L 40-150 PHOSPHATASE (BEAKER) (test code = 346) BILIRUBIN TOTAL 0.2 mg/dL 0.2-1.2 (BEAKER) (test code = 377) SODIUM (BEAKER) 138 meq/L 136-145 (test code = 381) POTASSIUM (BEAKER) 3.8 meq/L 3.5-5.1 (test code = 379) CHLORIDE (BEAKER) 99 meq/L 98-107 (test code = 382) CO2 (BEAKER) (test 31 meq/L 22-29 H code = 355) BLOOD UREA 14 mg/dL 7-21 NITROGEN (BEAKER) (test code = 354) CREATININE 0.53 mg/dL 0.57-1.25 L (BEAKER) (test code = 358) GLUCOSE RANDOM 132 mg/dL 70-105 H (BEAKER) (test code = 652) CALCIUM (BEAKER) 9.8 mg/dL 8.4-10.2 (test code = 697) AST (SGOT) 31 U/L 5-34 (BEAKER) (test code = 353) ALT (SGPT) 27 U/L 6-55 (BEAKER) (test code = 347) EGFR (BEAKER) 116 Interpretatio n of eGFR (test code = 1092) mL/min/1.[address] age Description sq m Result G1 Norm al or high >=90 G2 Mildly decreased 60-89 G3a Mildl y to moderately 45-5 9 G3b Moderately to s everely 30-44 G4 Severl y decreased 15-29 G5 Kidne y failure <15Reported eGF R is based on the CKD-EPI 2020 equation that d oes not use a race coefficientEsti mated GFR is not as accur ate as Creatinine Neda pedro in predicting glom erular filtration rate . Estimated GFR is not appl icable for dialysis patien ts Trekking Guide ID - MEE [id number] 04:52:02 Test Item Value Reference Range Interpretation Comments PHOSPHORUS (BEAKER) (test code = 3.9 mg/dL 2.3-4.7 604) Trekking Guide ID - MEE LCBC W/PLT COUNT & AUTO [id number] 04:10:24 Test Item Value Reference Range Interpretation Comments WHITE BLOOD CELL COUNT (BEAKER) 8.4 K/ L 3.5-10.5 (test code = 775) RED BLOOD CELL COUNT (BEAKER) 3.49 M/ L 3.93-5.22 L (test code = 761) HEMOGLOBIN (BEAKER) (test code = 9.8 GM/DL 11.2-15.7 L 410) HEMATOCRIT (BEAKER) (test code = 30.8 % 34.1-44.9 L 411) MEAN CORPUSCULAR VOLUME (BEAKER) 88.3 fL 79.4-94.8 (test code = 753) MEAN CORPUSCULAR HEMOGLOBIN 28.1 pg 25.6-32.2 (BEAKER) (test code = 751) MEAN CORPUSCULAR HEMOGLOBIN CONC 31.8 GM/DL 32.2-35.5 L (BEAKER) (test code = 752) RED CELL DISTRIBUTION WIDTH 15.0 % 11.7-14.4 H (BEAKER) (test code = 412) PLATELET COUNT (BEAKER) (test 353 K/CU MM 150-450 code = 756) MEAN PLATELET VOLUME (BEAKER) 10.7 fL 9.4-12.3 (test code = 754) NUCLEATED RED BLOOD CELLS 0 /100 WBC 0-0 (BEAKER) (test code = 413) NEUTROPHILS RELATIVE PERCENT 69 % (BEAKER) (test code = 429) LYMPHOCYTES RELATIVE PERCENT 22 % (BEAKER) (test code = 430) MONOCYTES RELATIVE PERCENT 6 % (BEAKER) (test code = 431) EOSINOPHILS RELATIVE PERCENT 3 % (BEAKER) (test code = 432) BASOPHILS RELATIVE PERCENT 1 % (BEAKER) (test code = 437) NEUTROPHILS ABSOLUTE COUNT 5.82 K/ L 1.56-6.13 (BEAKER) (test code = 670) LYMPHOCYTES ABSOLUTE COUNT 1.80 K/ L 1.18-3.74 (BEAKER) (test code = 414) MONOCYTES ABSOLUTE COUNT (BEAKER) 0.49 K/ L 0.24-0.36 H (test code = 415) EOSINOPHILS ABSOLUTE COUNT 0.22 K/ L 0.04-0.36 (BEAKER) (test code = 416) BASOPHILS ABSOLUTE COUNT (BEAKER) 0.04 K/ L 0.01-0.08 (test code = 417) IMMATURE GRANULOCYTES-RELATIVE 0 % 0-1 PERCENT (BEAKER) (test code = 2801) SARS-CoV2/RT-PCR (Asymptomatic ONLY)2022-06-24 04:05:11 Test Item Value Reference Interpretation Comments Range SARS-COV2/RT-PCR Negative Negative The SARS-Co V-2 (test code = target nucleic 85651-7) acids are not detected in thi s specimen. Negat pablo results do not preclude SARS-C oV-2 infection and should not be u sed as the sole bas is for patient management decisions. Nega tive results must be combined with clinical observations, patient history , and epidemiolog ical information. A false negative result may occu r if a specimen is improperly collected, transported or handled. This S ARS CoV-2 test is a rapid, real-liliane e RT-PCR test intended for th e qualitative detection of nucleic acid fr om SARS-CoV-2 in a nasopharyngeal swab specimen colle may from individual s suspected of COVID-19 by the ir healthcare provider. TONY (test code = This test has been TONY) authorized by FDA under an EUA for use by authorized laboratories. This test is only authorized for the duration of the declaration that circumstances exist justifying the authorization of emergency use of in vitro diagnostic tests for detection and/or diagnosis of COVID-19 under Section 564(b)(1) of the Federal Food, Drug and Cosmetic Act, 21 U.S.C. 360bbb-3(b)(1), unless the authorization is terminated or revoked sooner. Fact Sheet for Healthcare Providers: https://www.[employer]/Documents/Xp ert%20Xpress%20SAR S%20CoV-2/Fact%20S heets/302-3802%20S ARS-COV-2%20HEALTH CARE%20PROVIDERS%2 0FACT%20SHEET.pdf Fact Sheet for Healthcare Patients: https://www.[employer]/Documents/Xp ert%20Xpress%20SAR S%20CoV-2/Fact%20S heets/302-3801%20S ARS-COV-2%20PATIEN T%20FACT%20SHEET.p df Lab Interpretation Normal (test code = 20338-1) [facility])2022-06-24 04:05:11 Test Item Value Reference Range Interpretation Comments SARS-COV2/RT-PCR Negative Negative The SARS-Co V-2 target (test code = nucleic acids a re not 1046496) detected in thi s specimen. Negative result s do not preclude SARS-C oV-2 infection and s hould not be used as the chelsy e basis for patient managem ent decisions. Nega tive results must be combine d with clinical observ ations, patient history , and epidemiological information. A false negativ e result may occur if a spec imen is improperly tomi ected, transported or handled. This SARS CoV-2 test is a rapid, real-time RT-PC R test intended for th e qualitative detection of nu cleic acid from SARS-CoV-2 in a nasopharyngeal swab specimen collected from individuals suspected of CO VID-19 by their healthcar e provider. This test has been authorized by FDA under an EUA for use by authorized laboratories. This test is only authorized for the duration of the declaration that circumstances exist justifying the authorization of emergency use of in vitro diagnostic tests for detection and/or diagnosis of COVID-19 under Section 564(b)(1) of the Federal Food, Drug and Cosmetic Act, 21 U.S.C. 360bbb-3(b)(1), unless the authorization is terminated or revoked sooner. Fact Sheet for Healthcare Providers: https://www.[employer]/Documents/Xpert%20Xpress%20SARS%20CoV-2/Fact%20Sheets/302-3802%84DXSF-VJE-2%2 0HEALTHCARE%20PROVIDERS%20FACT%20SHEET.pdf Fact Sheet for Healthcare Patients: https://www.[employer]/Documents/Xpert%20X press%20SARS%20CoV-2/Fact%20Sheets/302-3801%56MDSO-CVN-6%20PATIENT%20FACT%20SHEJimbo WorkmanpdfPOCT-GLUCOSE [id number] 00:46:12 Test Item Value Reference Range Interpretation Comments POC-GLUCOSE METER 122 mg/dL 70-110 H : TESTED A T [facility] 6720 ([facility]) (test code = [facility], 1538) [address]: Trekking Guide/Techni amaya ID = [id number] for TIM ABDULLAHI POCT-GLUCOSE [id number] 17:56:17 Test Item Value Reference Range Interpretation Comments POC-GLUCOSE METER 121 mg/dL 70-110 H : TESTED A T [facility] 6720 (BEAKER) (test code = [facility], 1538) [address]: Trekking Guide/Techni amaya ID = [id number] for Verna Hillmania POCT-GLUCOSE [id number] 11:17:17 Test Item Value Reference Range Interpretation Comments POC-GLUCOSE METER 116 mg/dL 70-110 H : TESTED A T [facility] 6720 (BEAKER) (test code = [facility], 1538) [address]: Trekking Guide/Techni amaya ID = [id number] for Hillman, [place] COMPREHENSIVE METABOLIC [id number] 09:13:54 Test Item Value Reference Range Interpretation Comments TOTAL PROTEIN 6.6 gm/dL 6.0-8.3 (BEAKER) (test code = 770) ALBUMIN (BEAKER) 3.2 g/dL 3.5-5.0 L (test code = 1145) ALKALINE 68 U/L 40-150 PHOSPHATASE (BEAKER) (test code = 346) BILIRUBIN TOTAL 0.2 mg/dL 0.2-1.2 (BEAKER) (test code = 377) SODIUM (BEAKER) 140 meq/L 136-145 (test code = 381) POTASSIUM (BEAKER) 3.9 meq/L 3.5-5.1 (test code = 379) CHLORIDE (BEAKER) 104 meq/L 98-107 (test code = 382) CO2 (BEAKER) (test 29 meq/L 22-29 code = 355) BLOOD UREA 13 mg/dL 7-21 NITROGEN (BEAKER) (test code = 354) CREATININE 0.49 mg/dL 0.57-1.25 L (BEAKER) (test code = 358) GLUCOSE RANDOM 100 mg/dL 70-105 (BEAKER) (test code = 652) CALCIUM (BEAKER) 9.5 mg/dL 8.4-10.2 (test code = 697) AST (SGOT) 28 U/L 5-34 (BEAKER) (test code = 353) ALT (SGPT) 23 U/L 6-55 (BEAKER) (test code = 347) EGFR (BEAKER) 118 Interpretatio n of eGFR (test code = 1092) mL/min/1.[address] age Description sq m Result G1 Leigh l or high >=90 G2 Mildly decreased 60-89 G3a Mildl y to moderately 45-5 9 G3b Moderately to s everely 30-44 G4 Severl y decreased 15-29 G5 Kidney failure <15Reported eGF R is based on the CKD-EPI 2021 equation that d oes not use a race coefficientEsti mated GFR is not as accur ate as Creatinine Neda pedro in predicting glom erular filtration rate . Estimated GFR is not appl icable for dialysis patien ts Trekking Guide ID - AMADO [id number] 09:13:54 Test Item Value Reference Range Interpretation Comments PHOSPHORUS (BEAKER) (test code = 3.1 mg/dL 2.3-4.7 604) Trekking Guide ID - AMADO MPOCT-GLUCOSE [id number] 07:11:48 Test Item Value Reference Range Interpretation Comments POC-GLUCOSE METER 100 mg/dL 70-110 : TESTED A T [facility] 6720 (BEAKER) (test code = [place], 1538) [id number]: Trekking Guide/Techni amaya ID = [id number] for TIM ABDULLAHI POCT-GLUCOSE [id number] 06:46:51 Test Item Value Reference Range Interpretation Comments POC-GLUCOSE METER 111 mg/dL 70-110 H : TESTED A T [facility] 6720 (BEAKER) (test code = [place] [facility], 1538) [address]: Trekking Guide/Techni amaya ID = [id number] for Ramona Hurley CBC W/PLT COUNT & AUTO [id number] 04:22:31 Test Item Value Reference Range Interpretation Comments WHITE BLOOD CELL COUNT 5.0 K/ L 3.5-10.5 (BEAKER) (test code = 775) RED BLOOD CELL COUNT 3.27 M/ L 3.93-5.22 L (BEAKER) (test code = 761) HEMOGLOBIN (BEAKER) 8.7 GM/DL 11.2-15.7 L (test code = 410) HEMATOCRIT (BEAKER) 29.3 % 34.1-44.9 L (test code = 411) MEAN CORPUSCULAR 89.6 fL 79.4-94.8 Discordant MCV VOLUME (BEAKER) (test result s from code = 753) previous. Clini simone correlation required. MEAN CORPUSCULAR 26.6 pg 25.6-32.2 HEMOGLOBIN (BEAKER) (test code = 751) MEAN CORPUSCULAR 29.7 GM/DL 32.2-35.5 L HEMOGLOBIN CONC (BEAKER) (test code = 752) RED CELL DISTRIBUTION 14.7 % 11.7-14.4 H WIDTH (BEAKER) (test code = 412) PLATELET COUNT 303 K/CU MM 150-450 (BEAKER) (test code = 756) MEAN PLATELET VOLUME 9.8 fL 9.4-12.3 (BEAKER) (test code = 754) NUCLEATED RED BLOOD 0 /100 WBC 0-0 CELLS (BEAKER) (test code = 413) NEUTROPHILS RELATIVE 52 % PERCENT (BEAKER) (test code = 429) LYMPHOCYTES RELATIVE 36 % PERCENT (BEAKER) (test code = 430) MONOCYTES RELATIVE 9 % PERCENT (BEAKER) (test code = 431) EOSINOPHILS RELATIVE 3 % PERCENT (BEAKER) (test code = 432) BASOPHILS RELATIVE 1 % PERCENT (BEAKER) (test code = 437) NEUTROPHILS ABSOLUTE 2.56 K/ L 1.56-6.13 COUNT (BEAKER) (test code = 670) LYMPHOCYTES ABSOLUTE 1.78 K/ L 1.18-3.74 COUNT (BEAKER) (test code = 414) MONOCYTES ABSOLUTE 0.43 K/ L 0.24-0.36 H COUNT (BEAKER) (test code = 415) EOSINOPHILS ABSOLUTE 0.16 K/ L 0.04-0.36 COUNT (BEAKER) (test code = 416) BASOPHILS ABSOLUTE 0.04 K/ L 0.01-0.08 COUNT (BEAKER) (test code = 417) IMMATURE 0 % 0-1 GRANULOCYTES-RELATIVE PERCENT (BEAKER) (test code = 2801) POCT-GLUCOSE [id number] 23:45:27 Test Item Value Reference Range Interpretation Comments POC-GLUCOSE METER 98 mg/dL 70-110 : TESTED A T [facility]20 ([facility]) (test code = [facility], 1538) 27[address]: Trekking Guide/Techni amaya ID = [id number] for Mushtaq enInesRamona POCT-GLUCOSE [id number] 18:07:58 Test Item Value Reference Range Interpretation Comments POC-GLUCOSE METER 114 mg/dL 70-110 H : TESTED A T [facility] 6720 (BEAKER) (test code = [facility], 1538) 92726: Trekking Guide/Techni amaya ID = [id number] for Loc lson, Balaji POCT-GLUCOSE [id number] 11:54:44 Test Item Value Reference Range Interpretation Comments POC-GLUCOSE METER 135 mg/dL 70-110 H : TESTED A T [facility] 6720 (BEAKER) (test code = [facility], 1538) 60177: Trekking Guide/Techni amaya ID = [id number] for KAMI [place] DARRELL VANCOMYCIN LEVEL, [id number] 10:09:47 Test Item Value Reference Range Interpretation Comments VANCOMYCIN TROUGH (BEAKER) (test 21.9 ug/mL 10.0-20.0 H code = 522) Trekking Guide ID - TOM WPOCT-GLUCOSE [id number] 07:50:39 Test Item Value Reference Range Interpretation Comments POC-GLUCOSE METER 115 mg/dL 70-110 H : TESTED A T [facility] 6720 (BEAKER) (test code = [place], 1538) [address]: Trekking Guide/Techni amaya ID = [id number] for DARRELL ARGUETA [id number] 04:52:14 Test Item Value Reference Range Interpretation Comments PHOSPHORUS (BEAKER) (test code = 2.7 mg/dL 2.3-4.7 604) Trekking Guide ID Norman SANTOS WCOMPREHENSIVE METABOLIC [id number] 04:52:13 Test Item Value Reference Range Interpretation Comments TOTAL PROTEIN 6.3 gm/dL 6.0-8.3 (BEAKER) (test code = 770) ALBUMIN (BEAKER) 3.1 g/dL 3.5-5.0 L (test code = 1145) ALKALINE 77 U/L 40-150 PHOSPHATASE (BEAKER) (test code = 346) BILIRUBIN TOTAL 0.3 mg/dL 0.2-1.2 (BEAKER) (test code = 377) SODIUM (BEAKER) 141 meq/L 136-145 (test code = 381) POTASSIUM (BEAKER) 3.7 meq/L 3.5-5.1 (test code = 379) CHLORIDE (BEAKER) 105 meq/L 98-107 (test code = 382) CO2 (BEAKER) (test 31 meq/L 22-29 H code = 355) BLOOD UREA 11 mg/dL 7-21 NITROGEN (BEAKER) (test code = 354) CREATININE 0.50 mg/dL 0.57-1.25 L (BEAKER) (test code = 358) GLUCOSE RANDOM 133 mg/dL 70-105 H (BEAKER) (test code = 652) CALCIUM (BEAKER) 8.8 mg/dL 8.4-10.2 (test code = 697) AST (SGOT) 27 U/L 5-34 (BEAKER) (test code = 353) ALT (SGPT) 24 U/L 6-55 (BEAKER) (test code = 347) EGFR (BEAKER) 118 Interpretati on of eGFR (test code = 1092) mL/min/1.[address] age Description sq m Result G1 Leigh l or high >=90 G2 Mildly decreased 60-89 G3a Mildl y to moderately 45-5 9 G3b Moderately to s everely 30-44 G4 Severl y decreased 15-29 G5 Kidney failure <15Reported eGF R is based on the CKD-EPI 2020 equation that d oes not use a race coefficientEsti mated GFR is not as accur ate as Creatinine Neda vasquez in predicting glom erular filtration rate . Estimated GFR is not appl icable for dialysis patien ts Trekking Guide ID - TOM WPOCT-GLUCOSE [id number] 04:48:19 Test Item Value Reference Range Interpretation Comments POC-GLUCOSE METER 121 mg/dL 70-110 H : TESTED A T [facility] (BEAKER) (test code = [facility], 1538) [address]: Trekking Guide/Techni amaya ID = [id number] for Ilana Blanco CBC W/PLT COUNT & AUTO [id number] 04:04:07 Test Item Value Reference Range Interpretation Comments WHITE BLOOD CELL COUNT (BEAKER) 5.8 K/ L 3.5-10.5 (test code = 775) RED BLOOD CELL COUNT (BEAKER) 3.30 M/ L 3.93-5.22 L (test code = 761) HEMOGLOBIN (BEAKER) (test code = 8.9 GM/DL 11.2-15.7 L 410) HEMATOCRIT (BEAKER) (test code = 28.2 % 34.1-44.9 L 411) MEAN CORPUSCULAR VOLUME (BEAKER) 85.5 fL 79.4-94.8 (test code = 753) MEAN CORPUSCULAR HEMOGLOBIN 27.0 pg 25.6-32.2 (BEAKER) (test code = 751) MEAN CORPUSCULAR HEMOGLOBIN CONC 31.6 GM/DL 32.2-35.5 L (BEAKER) (test code = 752) RED CELL DISTRIBUTION WIDTH 14.7 % 11.7-14.4 H (BEAKER) (test code = 412) PLATELET COUNT (BEAKER) (test 329 K/CU MM 150-450 code = 756) MEAN PLATELET VOLUME (BEAKER) 10.2 fL 9.4-12.3 (test code = 754) NUCLEATED RED BLOOD CELLS 0 /100 WBC 0-0 (BEAKER) (test code = 413) NEUTROPHILS RELATIVE PERCENT 70 % (BEAKER) (test code = 429) LYMPHOCYTES RELATIVE PERCENT 21 % (BEAKER) (test code = 430) MONOCYTES RELATIVE PERCENT 6 % (BEAKER) (test code = 431) EOSINOPHILS RELATIVE PERCENT 2 % (BEAKER) (test code = 432) BASOPHILS RELATIVE PERCENT 1 % (BEAKER) (test code = 437) NEUTROPHILS ABSOLUTE COUNT 4.01 K/ L 1.56-6.13 (BEAKER) (test code = 670) LYMPHOCYTES ABSOLUTE COUNT 1.19 K/ L 1.18-3.74 (BEAKER) (test code = 414) MONOCYTES ABSOLUTE COUNT (BEAKER) 0.35 K/ L 0.24-0.36 (test code = 415) EOSINOPHILS ABSOLUTE COUNT 0.14 K/ L 0.04-0.36 (BEAKER) (test code = 416) BASOPHILS ABSOLUTE COUNT (BEAKER) 0.04 K/ L 0.01-0.08 (test code = 417) IMMATURE GRANULOCYTES-RELATIVE 0 % 0-1 PERCENT (BEAKER) (test code = 2801) POCT-GLUCOSE [id number] 00:36:13 Test Item Value Reference Range Interpretation Comments POC-GLUCOSE METER 126 mg/dL 70-110 H : TESTED A T [facility] 6720 (BEAKER) (test code = [facility], 1538) 02216: Trekking Guide/Techni amaya ID = [id number] for Ilana Blanco POCT-GLUCOSE [id number] 18:10:20 Test Item Value Reference Range Interpretation Comments POC-GLUCOSE METER 94 mg/dL 70-110 : TESTED A T [facility] 6720 (BEAKER) (test code = [facility], 1538) 57855: Trekking Guide/Techni amaya ID = [id number] for Corie Donovan COMPREHENSIVE METABOLIC [id number] 16:49:26 Test Item Value Reference Range Interpretation Comments TOTAL PROTEIN 6.3 gm/dL 6.0-8.3 (BEAKER) (test code = 770) ALBUMIN (BEAKER) 3.0 g/dL 3.5-5.0 L (test code = 1145) ALKALINE 69 U/L 40-150 PHOSPHATASE (BEAKER) (test code = 346) BILIRUBIN TOTAL 0.2 mg/dL 0.2-1.2 (BEAKER) (test code = 377) SODIUM (BEAKER) 140 meq/L 136-145 (test code = 381) POTASSIUM (BEAKER) 3.5 meq/L 3.5-5.1 (test code = 379) CHLORIDE (BEAKER) 105 meq/L 98-107 (test code = 382) CO2 (BEAKER) (test 25 meq/L 22-29 code = 355) BLOOD UREA 11 mg/dL 7-21 NITROGEN (BEAKER) (test code = 354) CREATININE 0.53 mg/dL 0.57-1.25 L (BEAKER) (test code = 358) GLUCOSE RANDOM 120 mg/dL 70-105 H (BEAKER) (test code = 652) CALCIUM (BEAKER) 9.0 mg/dL 8.4-10.2 (test code = 697) AST (SGOT) 35 U/L 5-34 H (BEAKER) (test code = 353) ALT (SGPT) 23 U/L 6-55 (BEAKER) (test code = 347) EGFR (BEAKER) 116 Interpretatio n of eGFR (test code = 1092) mL/min/1.[address] age Description sq m Result G1 Leigh l or high >=90 G2 Mildly decreased 60-89 G3a Mildl y to moderately 45-5 9 G3b Moderately to s everely 30-44 G4 Sever ly decreased 15-29 G5 Kidney failure <15Repo rted eGFR is based on the CKD-EPI 1 equation t hat does not use a race coefficientEsti mated GFR is not as accur ate as Creatinine Neda pedro in predicting glom erular filtration rate . Estimated GFR is not appl icable for dialysis patien ts Trekking Guide ID - [id number] 16:49:26 Test Item Value Reference Range Interpretation Comments PHOSPHORUS (BEAKER) (test code = 2.9 mg/dL 2.3-4.7 604) Trekking Guide ID - ADMINBLOOD [id number] 14:00:56 Test Item Value Reference Range Interpretation Comments CULTURE (BEAKER) (test No growth in 5 days code = 1095) The specimen volume collected for this blood culture was below the optimum (10 mL per bottle or 20 mL total). Use of lower volumes may adversely affect recovery and/or detection times of some organisms.BLOOD [id number] 13:00:49 Test Item Value Reference Range Interpretation Comments CULTURE (BEAKER) (test No growth in 5 days code = 1095) POCT-GLUCOSE [id number] 11:08:44 Test Item Value Reference Range Interpretation Comments POC-GLUCOSE METER 130 mg/dL 70-110 H : TESTED A T [facility] 6720 (BEAKER) (test code = [facility] Billy [facility], 153) 85568: Trekking Guide/Techni amaya ID = [id number] for Corie Munoz POCT-GLUCOSE [id number] 07:00:22 Test Item Value Reference Range Interpretation Comments POC-GLUCOSE METER 134 mg/dL 70-110 H : TESTED A T [facility] 6720 (BEAKER) (test code = [place] [facility], 1538) 79838: Trekking Guide/Techni amaya ID = [id number] for Rochelle marioLeighton uribe CBC W/PLT COUNT & AUTO [id number] 05:42:30 Test Item Value Reference Range Interpretation Comments WHITE BLOOD CELL COUNT (BEAKER) 7.9 K/ L 3.5-10.5 (test code = 775) RED BLOOD CELL COUNT (BEAKER) 3.23 M/ L 3.93-5.22 L (test code = 761) HEMOGLOBIN (BEAKER) (test code = 8.6 GM/DL 11.2-15.7 L 410) HEMATOCRIT (BEAKER) (test code = 27.6 % 34.1-44.9 L 411) MEAN CORPUSCULAR VOLUME (BEAKER) 85.4 fL 79.4-94.8 (test code = 753) MEAN CORPUSCULAR HEMOGLOBIN 26.6 pg 25.6-32.2 (BEAKER) (test code = 751) MEAN CORPUSCULAR HEMOGLOBIN CONC 31.2 GM/DL 32.2-35.5 L (BEAKER) (test code = 752) RED CELL DISTRIBUTION WIDTH 14.6 % 11.7-14.4 H (BEAKER) (test code = 412) PLATELET COUNT (BEAKER) (test 310 K/CU MM 150-450 code = 756) MEAN PLATELET VOLUME (BEAKER) 10.5 fL 9.4-12.3 (test code = 754) NUCLEATED RED BLOOD CELLS 0 /100 WBC 0-0 (BEAKER) (test code = 413) NEUTROPHILS RELATIVE PERCENT 77 % (BEAKER) (test code = 429) LYMPHOCYTES RELATIVE PERCENT 16 % (BEAKER) (test code = 430) MONOCYTES RELATIVE PERCENT 5 % (BEAKER) (test code = 431) EOSINOPHILS RELATIVE PERCENT 2 % (BEAKER) (test code = 432) BASOPHILS RELATIVE PERCENT 0 % (BEAKER) (test code = 437) NEUTROPHILS ABSOLUTE COUNT 6.08 K/ L 1.56-6.13 (BEAKER) (test code = 670) LYMPHOCYTES ABSOLUTE COUNT 1.23 K/ L 1.18-3.74 (BEAKER) (test code = 414) MONOCYTES ABSOLUTE COUNT (BEAKER) 0.40 K/ L 0.24-0.36 H (test code = 415) EOSINOPHILS ABSOLUTE COUNT 0.12 K/ L 0.04-0.36 (BEAKER) (test code = 416) BASOPHILS ABSOLUTE COUNT (BEAKER) 0.03 K/ L 0.01-0.08 (test code = 417) IMMATURE GRANULOCYTES-RELATIVE 0 % 0-1 PERCENT (BEAKER) (test code = 2801) POCT-GLUCOSE [id number] 02:15:13 Test Item Value Reference Range Interpretation Comments POC-GLUCOSE METER 98 mg/dL 70-110 : TESTED A T [facility] 6720 (BEAKER) (test code = [facility], 1538) 89045: Trekking Guide/Techni amaya ID = [id number] for Puli do, Nestar POCT-GLUCOSE [id number] 00:10:22 Test Item Value Reference Range Interpretation Comments POC-GLUCOSE METER 83 mg/dL 70-110 : TESTED A T [facility] 6720 (BEAKER) (test code = [facility] [employer] [facility], 1538) 59923: Trekking Guide/Techni amaya ID = [id number] for Puli do, Nestar CT, BRAIN, WITHOUT [id number] 22:00:00Reason for Exam (Free Text) - Addiitonal information for Radiologist->new rigidity [facility] 1975 Sex: FFINAL REPORT EXAMINATION: CT, CT, brain, without IV contrast CLINICAL DATA: This 46-year-old female has developed symptoms of new rigidity. There is concern for septic shock. PROCEDURE NOTE:Spiral images were done through the head without intravenous contrast. Axial and sagittal and coronal images were reviewed. The estimated radiation dose was equal to a total DLP of 656 mGy*cm. Individualized radiation dose reduction techniques were employed. COMPARISON: June 16, 2022 FINDINGS: Widespread encephalomalacia is present in the right cerebellum in the posterior inferior cerebellar artery distribution and extending towards the right cerebellar nuclei and the right middle cerebellar peduncle. There is dramatic low attenuation in the marie compatible with a chronic, large infarct. It can be seen on coronal image #39 measuring about 18.7 mm in transverse dimension and showing a verticalheight of 8.7 mm. From front to back, it occupies almost the entire marie on both sides of midline from the anterior margin of the marie to within several millimeters of the posterior aspect of the marie measuring 24 mm in AP dimension. An old, chronic pontine infarct is considered most likely. Image detail is better today than on the previous study. I do not think it has changed since June 16, 2022. No MRI is available. At the cerebral hemispheres, mccain-white differentiation is well preserved with no diffuse brain swelling or edema seen and with no frontal lobe or parietal lobe or occipital lobeinfarct noted. No intracranial hemorrhage is seen. No subdural or epidural blood or subarachnoid hemorrhage at the basilar cisterns or elsewhere can be seen. No midline shift or mass effect obstructive hydrocephalus is seen at the level of the ventricles. No sinus or mastoid disease is seen. No skull fracture is seen. IMPRESSION:1. A chronic infarct involving almost the entire mid marie is seen.2. A chronic infarct involving the right posterior inferior cerebellar artery distribution and right cerebellar nuclei and posterior aspect of the right middle cerebellar peduncle is seen.3. No developing territorial ischemia or diffuse brain swelling or edema is seen in the cerebral hemispheres and no acutehemorrhage or midline shift is seen within the head. Signed: Fidel Anne Verified Date/Time: 06/20/2022 22:00:15 RAD, CHEST, 1 VIEW, NON [id number] 21:29:00Reason for exam:->resp [facility] 1975 Sex: FFINAL REPORT Exam: RAD, CHEST, 1 VIEW, NON DEPTDate: 06/20/2022 9:27 PM Indication:resp distressComparison: 06/17/2022 FINDINGS: Lines/Tubes/Devices: Tracheostomy in place. Left PICC line in place with distal tip projecting over the cavoatrial junction. Lungs/pleura:Lungs are well inflated. Interval development of vascular prominence. Retrocardiac streaky opacity. Trace left effusion. No pneumothorax. Heart/Mediastinum:The cardiomediastinal silhouette is normal in size and contour. Bones/Soft Tissues: No acute osseous abnormality. Upper abdomen: Unremarkable. IMPRESSION:Tracheostomy and left PICC as above.Interval development of vascular prominence, congestion.Retrocardiac streaky opacity, likely atelectasis versus scarring.Trace left effusion. Signed: Erwin Nichols Verified Date/Time: 06/20/2022 21:29:34 Reading Location: [address] Transitional Reading Room HIGH SENSITIVITY TROPONIN [id number] 21:08:36 Test Item Value Reference Range Interpretation Comments HIGH SENSITIVITY < pg/ml See_Comment [Automated message] TROPONIN I (test code = The system which [id number]) generated this result transmitted ref erence range: <=17. Th e reference range was not used to interpr et this result as normal/abnormal . Trekking Guide ID - BSThe SCUTCHER TENDER STAT High Sensitivity Troponin-I results should be used in conjunctionwith other diagnostic information such as ECG, clinical observations and information, and patient symptoms to aid in the diagnosis of RI.COMPREHENSIVE METABOLIC [id number] 21:07:21 Test Item Value Reference Range Interpretation Comments TOTAL PROTEIN 8.1 gm/dL 6.0-8.3 (BEAKER) (test code = 770) ALBUMIN (BEAKER) 3.8 g/dL 3.5-5.0 (test code = 1145) ALKALINE 93 U/L 40-150 PHOSPHATASE (BEAKER) (test code = 346) BILIRUBIN TOTAL 0.4 mg/dL 0.2-1.2 (BEAKER) (test code = 377) SODIUM (BEAKER) 139 meq/L 136-145 (test code = 381) POTASSIUM (BEAKER) 5.0 meq/L 3.5-5.1 (test code = 379) CHLORIDE (BEAKER) 102 meq/L 98-107 (test code = 382) CO2 (BEAKER) (test 27 meq/L 22-29 code = 355) BLOOD UREA 9 mg/dL 7-21 NITROGEN (BEAKER) (test code = 354) CREATININE 0.63 mg/dL 0.57-1.25 (BEAKER) (test code = 358) GLUCOSE RANDOM 129 mg/dL 70-105 H (BEAKER) (test code = 652) CALCIUM (BEAKER) 10.1 mg/dL 8.4-10.2 (test code = 697) AST (SGOT) 39 U/L 5-34 H (BEAKER) (test code = 353) ALT (SGPT) 33 U/L 6-55 (BEAKER) (test code = 347) EGFR (BEAKER) 111 Interpretatio n of eGFR (test code = 1092) mL/min/1.[address] age Description sq m Result G1 Leigh l or high >=90 G2 Mildly decreased 60-89 G3a Mildl y to moderately 45-5 9 G3b Moderately to s everely 30-44 G4 Severl y decreased 15-29 G5 Kidney failure <15Reported eGF R is based on the CKD-EPI 2020 equation that d oes not use a race coefficientEsti mated GFR is not as accur ate as Creatinine Neda vasquez in predicting glom erular filtration rate . Estimated GFR is not appl icable for dialysis patien ts Trekking Guide ID - [id number] 21:04:56 Test Item Value Reference Range Interpretation Comments PHOSPHORUS (BEAKER) (test code = 3.3 mg/dL 2.3-4.7 604) Trekking Guide ID - [id number] 21:04:55 Test Item Value Reference Range Interpretation Comments MAGNESIUM (BEAKER) (test code = 1.7 mg/dL 1.6-2.6 627) Trekking Guide ID - BSCBC W/PLT COUNT & AUTO [id number] 20:50:12 Test Item Value Reference Range Interpretation Comments WHITE BLOOD CELL COUNT (BEAKER) 7.4 K/ L 3.5-10.5 (test code = 775) RED BLOOD CELL COUNT (BEAKER) 4.05 M/ L 3.93-5.22 (test code = 761) HEMOGLOBIN (BEAKER) (test code = 10.8 GM/DL 11.2-15.7 L 410) HEMATOCRIT (BEAKER) (test code = 35.4 % 34.1-44.9 411) MEAN CORPUSCULAR VOLUME (BEAKER) 87.4 fL 79.4-94.8 (test code = 753) MEAN CORPUSCULAR HEMOGLOBIN 26.7 pg 25.6-32.2 (BEAKER) (test code = 751) MEAN CORPUSCULAR HEMOGLOBIN CONC 30.5 GM/DL 32.2-35.5 L (BEAKER) (test code = 752) RED CELL DISTRIBUTION WIDTH 14.5 % 11.7-14.4 H (BEAKER) (test code = 412) PLATELET COUNT (BEAKER) (test 529 K/CU MM 150-450 H code = 756) MEAN PLATELET VOLUME (BEAKER) 10.5 fL 9.4-12.3 (test code = 754) NUCLEATED RED BLOOD CELLS 0 /100 WBC 0-0 (BEAKER) (test code = 413) NEUTROPHILS RELATIVE PERCENT 50 % (BEAKER) (test code = 429) LYMPHOCYTES RELATIVE PERCENT 40 % (BEAKER) (test code = 430) MONOCYTES RELATIVE PERCENT 7 % (BEAKER) (test code = 431) EOSINOPHILS RELATIVE PERCENT 3 % (BEAKER) (test code = 432) BASOPHILS RELATIVE PERCENT 1 % (BEAKER) (test code = 437) NEUTROPHILS ABSOLUTE COUNT 3.66 K/ L 1.56-6.13 (BEAKER) (test code = 670) LYMPHOCYTES ABSOLUTE COUNT 2.91 K/ L 1.18-3.74 (BEAKER) (test code = 414) MONOCYTES ABSOLUTE COUNT (BEAKER) 0.51 K/ L 0.24-0.36 H (test code = 415) EOSINOPHILS ABSOLUTE COUNT 0.20 K/ L 0.04-0.36 (BEAKER) (test code = 416) BASOPHILS ABSOLUTE COUNT (BEAKER) 0.06 K/ L 0.01-0.08 (test code = 417) IMMATURE GRANULOCYTES-RELATIVE 0 % 0-1 PERCENT (BEAKER) (test code = 2801) LACTIC ACID, [id number] 20:43:09 Test Item Value Reference Range Interpretation Comments LACTATE BLOOD VENOUS (2) (BEAKER) 2.63 mmol/L 0.50-2.20 H (test code = 2872) Trekking Guide ID - [id number] 20:22:02 Test Item Value Reference Range Interpretation Comments POC-Glucose (test code = 134 mg/dL 70-110 H : T ESTED AT [facility] 1855) [address] [facility] [place], [address]: Trekking Guide/Techni amaya ID = [id number] for TAL RIVERO Lab Interpretation (test Abnormal code = 76021-4) [id number] 20:22:02 Test Item Value Reference Range Interpretation Comments POC-GLUCOSE (BEAKER) 134 mg/dL 70-110 H : TESTE D AT [facility] 6720 (test code = 1855) [place], [address]: Trekking Guide/Techni amaya ID = [id number] for SUBI A, TAL [id number] 20:22:01 Test Item Value Reference Range Interpretation Comments POC-Hemoglobin (test code 11.6 g/dL 12.0-15.0 L : TESTED AT [facility] = 1856) [address] [place] [address], [address]: Trekking Guide/Techni amaya ID = [id number] for JOSEFA, TAL Lab Interpretation (test Abnormal code = 91625-1) [facility] CenterDzuwpdDLJP-[id number] 20:22:01 Test Item Value Reference Range Interpretation Comments POC-Hematocrit (test code 34 % 36-45 L : = 1857) Trekking Guide/Techni amaya ID = [id number] for JOSEFA, TAL Lab Interpretation (test Abnormal code = 29753-1) [facility] CenterFsngqmUFFJ-[id number] 20:22:01 Test Item Value Reference Range Interpretation Comments POC-HEMOGLOBIN 11.6 g/dL 12.0-15.0 L : [facility] [place] [address] [facility] (test code [facility], = 1856) [address]: Trekking Guide/Techni amaya ID = [id number] for SUBI A, TAL [id number]-[id number] 20:22:01 Test Item Value Reference Range Interpretation Comments POC-HEMATOCRIT 34 % 36-45 L : Trekking Guide/Te chnician ID = (BEAKER) (test code = 399885 for JOSEFA, TAL 1857) [id number] 20:21:54 Test Item Value Reference Range Interpretation Comments POC-Potassium (test code 4.8 meq/L 3.6-5.5 : T ESTED AT [facility] = 1540) [address] [place] [address], [address]: Trekking Guide/Techni amaya ID = [id number] for JOSEFA, TAL Lab Interpretation (test Normal code = 62519-9) [facility] CenterPOCT-[id number] 20:21:54 Test Item Value Reference Range Interpretation Comments POC-POTASSIUM 4.8 meq/L 3.6-5.5 : TESTED AT [facility] 67 (BEAKER) (test code [facility], = 1540) [address]: Trekking Guide/Techni amaya ID = [id number] for SUBI A, TAL POC-Blood gases, [id number] 20:21:53 Test Item Value Reference Range Interpretation Comments Temp. Celsius-POC (test 99.3 code = 1834) FIO2-POC (test code = 100 1835) pH, Venous-POC (test 7.410 7.320-7.420 : TESTE D AT [facility] code = 1842) [address] [facility] [place] [address] PCO2, Venous-POC (test 50.2 See_Comment If pO 2 is >180, pCO2 code = 1843) may be positive ly biased [Automat ed message] The sy stem which generated this result transmit may reference range : 41.0 - 51.0 mm Hg. The reference r julia was not used to interpret this result as normal/abnormal . PO2, Venous-POC (test 34.0 See_Comment [Auto mated message] code = 1844) The system [employer] h generated this result transmit may reference range : 25.0 - 40.0 mm Hg. The reference r julia was not used to interpret this result as normal/abnormal . SO2, Venous-POC (test 63.0 % 40.0-70.0 code = 1845) HCO3, Venous-POC (test 31.7 meq/L 21.0-29.0 H code = 1846) BE, Venous-POC (test 7.0 meq/L -2.0-3.0 H : code = 1847) Trekking Guide/Techni amaya ID = [id number] for JOSEFA, TAL Lab Interpretation Abnormal (test code = 71112-5) [facility]-[id number] 20:21:53 Test Item Value Reference Range Interpretation Comments POC-Sodium (test code = 140 meq/L 135-148 : TE STED AT [facility] 1542) [address] [facility] [place], [address]: Trekking Guide/Techni amaya ID = [id number] for JOSEFA, TAL Lab Interpretation (test Normal code = 48807-0) [facility]-BLOOD GASES, [id number] 20:21:53 Test Item Value Reference Range Interpretation Comments TEMP, CELSIUS-POC 99.3 (BEAKER) (test code = 1834) FIO2-POC (BEAKER) 100 (test code = 1835) PH, VENOUS-POC 7.410 7.320-7.420 : TESTED AT [facility] 6720 (BEAKER) (test code [facility], = 1842) [address] PCO2, VENOUS-POC 50.2 mm Hg 41.0-51.0 If pO2 is > 180, pCO2 may (BEAKER) (test code be posit ively biased = 1843) PO2, VENOUS-POC 34.0 mm Hg 25.0-40.0 (BEAKER) (test code = 1844) SO2, VENOUS-POC 63.0 % 40.0-70.0 (BEAKER) (test code = 1845) HCO3, VENOUS-POC 31.7 meq/L 21.0-29.0 H (BEAKER) (test code = 1846) BASE EXCESS, 7.0 meq/L -2.0-3.0 H : Trekking Guide/Tech nician ID VENOUS-POC (BEAKER) = [id number] for JOSEFA, (test code = 1847) TAL [id number] 20:21:53 Test Item Value Reference Range Interpretation Comments POC-SODIUM (BEAKER) 140 meq/L 135-148 : TESTED AT [place] [address] (test code = 1542) [facility], [address]: Trekking Guide/Techni amaya ID = [id number] for SUBI A, TAL POCT-GLUCOSE [id number] 18:00:18 Test Item Value Reference Range Interpretation Comments POC-GLUCOSE METER 104 mg/dL 70-110 : TESTED A T [facility] 6720 ([facility]) (test code = [facility], 1538) [address]: Trekking Guide/Techni amaya ID = [id number] for Jackie, Corie POCT-GLUCOSE [id number] 11:05:54 Test Item Value Reference Range Interpretation Comments POC-GLUCOSE METER 106 mg/dL 70-110 : TESTED A T [facility] 6720 ([facility]) (test code = [facility], 1538) [address]: Trekking Guide/Techni amaya ID = [id number] for Mc Fee, Corie POCT-GLUCOSE [id number] 05:47:41 Test Item Value Reference Range Interpretation Comments POC-GLUCOSE METER 98 mg/dL 70-110 : [facility] (test code = [facility], 1538) [address]: Trekking Guide/Techni amaya ID = [id number] for VEGA SINGHLUPE [id number] 04:09:51 Test Item Value Reference Range Interpretation Comments PHOSPHORUS (AKER) (test code = 3.5 mg/dL 2.3-4.7 604) Trekking Guide ID - PIAYA LPOCT-GLUCOSE [id number] 00:30:03 Test Item Value Reference Range Interpretation Comments POC-GLUCOSE METER 96 mg/dL 70-110 : TESTED A T [facility] 6720 ([facility]) (test code = [facility], 1538) 67891: Trekking Guide/Techni amaya ID = [id number] for KELLIE BASILIO, TOSHIA POCT-GLUCOSE [id number] 18:35:26 Test Item Value Reference Range Interpretation Comments POC-GLUCOSE METER 100 mg/dL 70-110 : TESTED A T [facility] 6720 ([facility]) (test code = [facility], 1538) 31176: Trekking Guide/Techni amaya ID = [id number] for Estela Arvizu POCT-GLUCOSE [id number] 12:12:23 Test Item Value Reference Range Interpretation Comments POC-GLUCOSE METER 96 mg/dL 70-110 : [facility] T [facility] (test code = [facility], 1538) 70744: Trekking Guide/Techni amaya ID = [id number] for Estela Hebert SPUTUM CULTURE + GRAM [id number] 09:19:53 Test Item Value Reference Interpretation Comments Range CULTURE (AKER) METHICILLIN A 2+ Methicil dajuan (test code = 1095) RESISTANT resistant STAPHYLOCOCCUS Staphylococcu s AUREUS aureus Clindamycin (test S code = 10) Erythromycin (test S code = 4) Linezolid (test code S = 40) Nitrofurantoin (test S code = 23) Oxacillin (test code R = 14) Rifampin (test code = S 43) Tetracycline (test S code = 2) Trimethoprim + S Sulfamethoxazole (test code = 47) Vancomycin (test code S = 13) CULTURE ([facility]) BURKHOLDERIA A 1+ Burkhold eria (test code = 1095) SPECIES speciesMo st closely resembl es - Burkholderia contaminans Amikacin (test code = See_Comment R [Auto mated 1) message] The system which generated this result transmit may reference range : Susceptible 0-1 6 , Resistant <0 or >16 . The reference range was not used to interpret this result as normal/abnormal . Cefepime (test code = See_Comment R [Auto mated 51) message] The system which generated this result transmit may reference range : Susceptible 0-8 , Resistant <0 or >8 . The reference range was not u sed to interpret th is result as normal/abnormal . Ceftazidime (test See_Comment S [Automate d code = 27) message] The system which generated this result transmit may reference range : Susceptible 0-8 , Resistant <0 or >8 . The reference range was not u sed to interpret th is result as normal/abnormal . Ceftriaxone (test See_Comment R [Automate d code = 52) message] The system which generated this result transmit may reference range : Susceptible 0-8 , Resistant <0 or >8 . The reference range was not u sed to interpret th is result as normal/abnormal . Ciprofloxacin (test See_Comment R [Automa may code = 7) message] The system which generated this result transmit may reference range : Susceptible 0-1 , Resistant <0 or >1 . The reference range was not u sed to interpret th is result as normal/abnormal . Gentamicin (test code See_Comment R [Auto mated = 18) message] The system which generated this result transmit may reference range : Susceptible 0-4 , Resistant <0 or >4 . The reference range was not u sed to interpret th is result as normal/abnormal . Imipenem (test code = See_Comment S [Auto mated 19) message] The system which generated this result transmit may reference range : Susceptible 0-4 , Resistant <0 or >4 . The reference range was not u sed to interpret th is result as normal/abnormal . Levofloxacin (test See_Comment R [Automat ed code = 22) message] The system which generated this result transmit may reference range : Susceptible 0-2 , Resistant <0 or >2 . The reference range was not u sed to interpret th is result as normal/abnormal . Meropenem (test code See_Comment S [Autom ated = 34) message] The system which generated this result transmit may reference range : Susceptible 0-4 , Resistant <0 or >4 . The reference range was not u sed to interpret th is result as normal/abnormal . Piperacillin + See_Comment S [Automated Tazobactam (test code messag e] The = 29) system which generated this result transmit may reference range : Susceptible 0-1 6 , Resistant <0 or >16 . The reference range was not used to interpret this result as normal/abnormal . Tetracycline (test See_Comment R [Automat ed code = 2) message] The system which generated this result transmit may reference range : Susceptible 0-4 , Resistant <0 or >4 . The reference range was not u sed to interpret th is result as normal/abnormal . Tobramycin (test code See_Comment R [Auto mated = 25) message] The system which generated this result transmit may reference range : Susceptible 0-4 , Resistant <0 or >4 . The reference range was not u sed to interpret th is result as normal/abnormal . Trimethoprim + See_Comment S [Automated Sulfamethoxazole message] Th e (test code = 47) system whic h generated this result transmit may reference range : Susceptible 0-4 0 , Resistant <0 or >40 . The reference range was not used to interpret this result as normal/abnormal . GRAM STAIN RESULT <1+ WBCs (BEAKER) (test code = 1123) GRAM STAIN RESULT No organisms seen (BEAKER) (test code = 592808) POCT-GLUCOSE [id number] 06:59:08 Test Item Value Reference Range Interpretation Comments POC-GLUCOSE METER 116 mg/dL 70-110 H : TESTED A T [facility] 6720 (BEAKER) (test code = [place] [facility], 1538) 94[address]: Trekking Guide/Techni amaya ID = [id number] for TIM ABDULLAHI [id number] 06:17:56 Test Item Value Reference Range Interpretation Comments MAGNESIUM (BEAKER) (test code = 1.8 mg/dL 1.6-2.6 627) Trekking Guide ID - MEE [id number] 06:17:56 Test Item Value Reference Range Interpretation Comments PHOSPHORUS (BEAKER) (test code = 3.4 mg/dL 2.3-4.7 604) Trekking Guide ID - MEE LBASIC METABOLIC [id number] 06:17:55 Test Item Value Reference Range Interpretation Comments SODIUM (BEAKER) 142 meq/L 136-145 (test code = 381) POTASSIUM 3.7 meq/L 3.5-5.1 (BEAKER) (test code = 379) CHLORIDE (BEAKER) 108 meq/L 98-107 H (test code = 382) CO2 (BEAKER) 29 meq/L 22-29 (test code = 355) BLOOD UREA 10 mg/dL 7-21 NITROGEN (BEAKER) (test code = 354) CREATININE 0.47 mg/dL 0.57-1.25 L (BEAKER) (test code = 358) GLUCOSE RANDOM 105 mg/dL 70-105 (BEAKER) (test code = 652) CALCIUM (BEAKER) 8.7 mg/dL 8.4-10.2 (test code = 697) EGFR (BEAKER) 120 Interpretatio n of eGFR (test code = mL/min/1.73 values Stage De scription 1092) sq m Result G1 Leigh l or high >=90 G2 Mildly decreased 60-89 G3a Mildl y to moderately 45-5 9 G3b Moderately to s everely 30-44 G4 Severl y decreased 15-29 G5 Kidney failure <15Reported eGF R is based on the CKD-EPI 2020 equation that d oes not use a race coefficientEsti mated GFR is not as accur ate as Creatinine Neda pedro in predicting glom erular filtration rate . Estimated GFR is not appl icable for dialysis patien ts Trekking Guide ID - PIAYA LCBC (HEMOGRAM ONLY)2022-06-19 05:33:41 Test Item Value Reference Range Interpretation Comments WHITE BLOOD CELL COUNT (BEAKER) 4.1 K/ L 3.5-10.5 (test code = 775) RED BLOOD CELL COUNT (BEAKER) 3.12 M/ L 3.93-5.22 L (test code = 761) HEMOGLOBIN (BEAKER) (test code = 8.2 GM/DL 11.2-15.7 L 410) HEMATOCRIT (BEAKER) (test code = 26.9 % 34.1-44.9 L 411) MEAN CORPUSCULAR VOLUME (BEAKER) 86.2 fL 79.4-94.8 (test code = 753) MEAN CORPUSCULAR HEMOGLOBIN 26.3 pg 25.6-32.2 (BEAKER) (test code = 751) MEAN CORPUSCULAR HEMOGLOBIN CONC 30.5 GM/DL 32.2-35.5 L (BEAKER) (test code = 752) RED CELL DISTRIBUTION WIDTH 14.4 % 11.7-14.4 (BEAKER) (test code = 412) PLATELET COUNT ([facility]) (test 293 K/CU MM 150-450 code = 756) MEAN PLATELET VOLUME (BEAKER) 10.0 fL 9.4-12.3 (test code = 754) NUCLEATED RED BLOOD CELLS 0 /100 WBC 0-0 (AKER) (test code = 413) POCT-GLUCOSE [id number] 01:04:38 Test Item Value Reference Range Interpretation Comments POC-GLUCOSE METER 91 mg/dL 70-110 : TESTED A T [facility] 6720 ([facility]) (test code = [facility], 1538) 40846: Trekking Guide/Techni amaya ID = [id number] for TIM NELSON VANCOMYCIN LEVEL, [id number] 19:31:03 Test Item Value Reference Range Interpretation Comments VANCOMYCIN TROUGH ([facility]) (test 8.7 ug/mL 10.0-20.0 L code = 522) Trekking Guide ID Norman FISCHER MPOCT-GLUCOSE [id number] 18:23:15 Test Item Value Reference Range Interpretation Comments POC-GLUCOSE METER 128 mg/dL 70-110 H : TESTED A T [facility] 6720 ([facility]) (test code = [facility], 1538) 30188: Trekking Guide/Techni amaya ID = [id number] for HECTOR JOSEPH POCT-GLUCOSE [id number] 12:17:27 Test Item Value Reference Range Interpretation Comments POC-GLUCOSE METER 110 mg/dL 70-110 : TESTED A T [facility] 6720 ([facility]) (test code = [facility], 1538) 64258: Trekking Guide/Techni amaya ID = [id number] for Estela Arvizu [id number] 06:23:38 Test Item Value Reference Range Interpretation Comments MAGNESIUM (BEAKER) (test code = 1.8 mg/dL 1.6-2.6 627) Trekking Guide ID - AMADO [id number] 06:23:38 Test Item Value Reference Range Interpretation Comments PHOSPHORUS (BEAKER) (test code = 2.9 mg/dL 2.3-4.7 604) Trekking Guide ID Norman FISCHER MBASIC METABOLIC [id number] 06:23:37 Test Item Value Reference Range Interpretation Comments SODIUM (BEAKER) 143 meq/L 136-145 (test code = 381) POTASSIUM 3.8 meq/L 3.5-5.1 (BEAKER) (test code = 379) CHLORIDE (BEAKER) 108 meq/L 98-107 H (test code = 382) CO2 (BEAKER) 31 meq/L 22-29 H (test code = 355) BLOOD UREA 10 mg/dL 7-21 NITROGEN (BEAKER) (test code = 354) CREATININE 0.48 mg/dL 0.57-1.25 L (BEAKER) (test code = 358) GLUCOSE RANDOM 99 mg/dL 70-105 (BEAKER) (test code = 652) CALCIUM (BEAKER) 8.7 mg/dL 8.4-10.2 (test code = 697) EGFR (BEAKER) 119 Interpretatio n of eGFR (test code = mL/min/1.73 values Stage De scription 1092) sq m Result G1 Leigh l or high >=90 G2 Mildly decreased 60-89 G3a Mildl y to moderately 45-5 9 G3b Moderately to s everely 30-44 G4 Severl y decreased 15-29 G5 Kidney failure <15Reported eGF R is based on the CKD-EPI 2020 equation that d oes not use a race coefficientEsti mated GFR is not as accur ate as Creatinine Neda vasquez in predicting glom erular filtration rate . Estimated GFR is not appl icable for dialysis patien ts Trekking Guide ID - AMADO MPOCT-GLUCOSE [id number] 06:08:11 Test Item Value Reference Range Interpretation Comments POC-GLUCOSE METER 94 mg/dL 70-110 : TESTED A T [facility] 6720 (BEAKER) (test code = [place] [facility], 1538) 23062: Trekking Guide/Techni amaya ID = [id number] for Ilana Rodgers do CBC (HEMOGRAM ONLY)2022-06-18 05:51:19 Test Item Value Reference Range Interpretation Comments WHITE BLOOD CELL COUNT (BEAKER) 7.1 K/ L 3.5-10.5 (test code = 775) RED BLOOD CELL COUNT (BEAKER) 2.83 M/ L 3.93-5.22 L (test code = 761) HEMOGLOBIN (BEAKER) (test code = 7.6 GM/DL 11.2-15.7 L 410) HEMATOCRIT (BEAKER) (test code = 25.0 % 34.1-44.9 L 411) MEAN CORPUSCULAR VOLUME (BEAKER) 88.3 fL 79.4-94.8 (test code = 753) MEAN CORPUSCULAR HEMOGLOBIN 26.9 pg 25.6-32.2 (BEAKER) (test code = 751) MEAN CORPUSCULAR HEMOGLOBIN CONC 30.4 GM/DL 32.2-35.5 L (BEAKER) (test code = 752) RED CELL DISTRIBUTION WIDTH 14.4 % 11.7-14.4 (BEAKER) (test code = 412) PLATELET COUNT (BEAKER) (test 264 K/CU MM 150-450 code = 756) MEAN PLATELET VOLUME (BEAKER) 9.9 fL 9.4-12.3 (test code = 754) NUCLEATED RED BLOOD CELLS 0 /100 WBC 0-0 (BEAKER) (test code = 413) POCT-GLUCOSE [id number] 22:15:43 Test Item Value Reference Range Interpretation Comments POC-GLUCOSE METER 99 mg/dL 70-110 : TESTED A T [facility] 6720 (BEAKER) (test code = [facility], 1538) 97174: Trekking Guide/Techni amaya ID = [id number] for TIM NELSON POCT-GLUCOSE [id number] 19:24:14 Test Item Value Reference Range Interpretation Comments POC-GLUCOSE METER 93 mg/dL 70-110 : TESTED A T [facility] 6720 (BEAKER) (test code = [facility], 1538) 75077: Trekking Guide/Techni amaya ID = [id number] for Alexia Davila 2D Echo W/Doppler(CW/PW/Color)2022-06-17 17:42:49Ejection FractionSLE ECHO HEARTLAB MKCKESSON [facility] 2022-06-17 17:10:48 Test Item Value Reference Range Interpretation Comments SODIUM (BEAKER) 142 meq/L 136-145 (test code = 381) POTASSIUM 3.8 meq/L 3.5-5.1 (BEAKER) (test code = 379) CHLORIDE (BEAKER) 108 meq/L 98-107 H (test code = 382) CO2 (BEAKER) 29 meq/L 22-29 (test code = 355) BLOOD UREA 12 mg/dL 7-21 NITROGEN (BEAKER) (test code = 354) CREATININE 0.51 mg/dL 0.57-1.25 L (BEAKER) (test code = 358) GLUCOSE RANDOM 123 mg/dL 70-105 H (BEAKER) (test code = 652) CALCIUM (BEAKER) 8.3 mg/dL 8.4-10.2 L (test code = 697) EGFR (BEAKER) 117 Interpretatio n of eGFR (test code = mL/min/1.73 values Stage De scription 1092) sq m Result G1 Leigh l or high >=90 G2 Mildly decreased 60-89 G3a Mildl y to moderately 45-5 9 G3b Moderately to s everely 30-44 G4 Severl y decreased 15-29 G5 Kidney failure <15Reported eGF R is based on the CKD-EPI 2020 equation that d oes not use a race coefficientEsti mated GFR is not as accur ate as Creatinine Neda pedro in predicting glom erular filtration rate . Estimated GFR is not appl icable for dialysis patien ts Trekking Guide ID - BSHEMOGLOBIN AND [id number] 16:53:14 Test Item Value Reference Range Interpretation Comments HEMOGLOBIN (BEAKER) (test code = 8.0 GM/DL 11.2-15.7 L 410) HEMATOCRIT (BEAKER) (test code = 25.1 % 34.1-44.9 L 411) Trekking Guide ID - [id number] doppler legs [id number] 16:05:02Ejection FractionSLEH ECHO HEARTLAB MKCKESSON [facility] 2022-06-17 15:14:24 Test Item Value Reference Range Interpretation Comments MAGNESIUM (BEAKER) (test code = 2.0 mg/dL 1.6-2.6 627) Trekking Guide ID - BSBASIC METABOLIC [id number] 14:35:34 Test Item Value Reference Range Interpretation Comments SODIUM (BEAKER) 126 meq/L 136-145 L (test code = 381) POTASSIUM 3.5 meq/L 3.5-5.1 (BEAKER) (test code = 379) CHLORIDE (BEAKER) 95 meq/L 98-107 L (test code = 382) CO2 (BEAKER) 27 meq/L 22-29 (test code = 355) BLOOD UREA 10 mg/dL 7-21 NITROGEN (BEAKER) (test code = 354) CREATININE 0.45 mg/dL 0.57-1.25 L (BEAKER) (test code = 358) GLUCOSE RANDOM 86 mg/dL 70-105 (BEAKER) (test code = 652) CALCIUM (BEAKER) 8.0 mg/dL 8.4-10.2 L (test code = 697) EGFR (BEAKER) 121 Interpretatio n of eGFR (test code = mL/min/1.73 values Stage De scription 1092) sq m Result G1 Leigh l or high >=90 G2 Mildly decreased 60-89 G3a Mildl y to moderately 45-5 9 G3b Moderately to s everely 30-44 G4 Severl y decreased 15-29 G5 Kidney failure <15Reported eGF R is based on the CKD-EPI 2020 equation that d oes not use a race coefficientEsti mated GFR is not as accur ate as Creatinine Neda pedro in predicting glom erular filtration rate . Estimated GFR is not appl icable for dialysis patien ts Trekking Guide ID - PIAYA LPOCT-GLUCOSE [id number] 13:16:09 Test Item Value Reference Range Interpretation Comments POC-GLUCOSE METER 121 mg/dL 70-110 H : Notified RN/MD: (CHU) (test code = TESTED AT [facility] 0565 8511) [facility], [address]: Trekking Guide/Techni amaya ID = [id number] for Meme Medellin RAD, CHEST, 1 VIEW, NON [id number] 08:21:00Reason for exam:->eval for pulmonary congestionShould this be performed at the bedside?->Yes [facility] 1975 Sex: FFINAL REPORT Chest AP portable Comparison exam: 06/16/2022 History provided: Evaluation for pulmonary congestion Heart size normal. Airspace disease has developed within the left lower lobe which merits short-term follow- up. Right lung clear. Normal vascularity. Tracheostomy tube and left-sided PICC line in place. Signed: Diomedes Wiggins MDReport Verified Date/Time: 06/17/2022 08:21:08 ReadingLocation: [facility] Diagnostic Imaging Reading Room - [facility] 1.310.12 POCT- GLUCOSE [id number] 06:03:37 Test Item Value Reference Range Interpretation Comments POC-GLUCOSE METER 83 mg/dL 70-110 : TESTED A T [facility] 6720 (BEAKER) (test code = [place] [facility], 1538) 918[address]: Trekking Guide/Techni amaya ID = [id number] for [facility] or (contract), [facility] BASIC METABOLIC [id number] 05:03:41 Test Item Value Reference Range Interpretation Comments SODIUM (BEAKER) 144 meq/L 136-145 (test code = 381) POTASSIUM 3.1 meq/L 3.5-5.1 L (BEAKER) (test code = 379) CHLORIDE (BEAKER) 110 meq/L 98-107 H (test code = 382) CO2 (BEAKER) 25 meq/L 22-29 (test code = 355) BLOOD UREA 10 mg/dL 7-21 NITROGEN (BEAKER) (test code = 354) CREATININE 0.51 mg/dL 0.57-1.25 L (BEAKER) (test code = 358) GLUCOSE RANDOM 87 mg/dL 70-105 (BEAKER) (test code = 652) CALCIUM (BEAKER) 8.5 mg/dL 8.4-10.2 (test code = 697) EGFR (BEAKER) 117 Interpretatio n of eGFR (test code = mL/min/1.73 values Stage De scription 1092) sq m Result G1 Leigh l or high >=90 G2 Mildly decreased 60-89 G3a Mild ly to moderately 45-5 9 G3b Moderately to s everely 30-44 G4 Severl y decreased 15-29 G5 Kidney failure <15Reported eGF R is based on the CKD-EPI 2020 equation that d oes not use a race coefficientEsti mated GFR is not as accur ate as Creatinine Neda pedro in predicting glom erular filtration rate . Estimated GFR is not appl icable for dialysis patien ts Trekking Guide ID - MEE [id number] 05:03:41 Test Item Value Reference Range Interpretation Comments MAGNESIUM (BEAKER) (test code = 1.7 mg/dL 1.6-2.6 627) Trekking Guide ID - MEE [id number] 05:03:41 Test Item Value Reference Range Interpretation Comments PHOSPHORUS (BEAKER) (test code = 2.8 mg/dL 2.3-4.7 604) Trekking Guide ID - MEE LCBC (HEMOGRAM ONLY)2022-06-17 04:27:39 Test Item Value Reference Range Interpretation Comments WHITE BLOOD CELL COUNT (BEAKER) 5.0 K/ L 3.5-10.5 (test code = 775) RED BLOOD CELL COUNT (BEAKER) 2.91 M/ L 3.93-5.22 L (test code = 761) HEMOGLOBIN (BEAKER) (test code = 7.7 GM/DL 11.2-15.7 L 410) HEMATOCRIT (BEAKER) (test code = 25.5 % 34.1-44.9 L 411) MEAN CORPUSCULAR VOLUME (BEAKER) 87.6 fL 79.4-94.8 (test code = 753) MEAN CORPUSCULAR HEMOGLOBIN 26.5 pg 25.6-32.2 (BEAKER) (test code = 751) MEAN CORPUSCULAR HEMOGLOBIN CONC 30.2 GM/DL 32.2-35.5 L (BEAKER) (test code = 752) RED CELL DISTRIBUTION WIDTH 14.2 % 11.7-14.4 (BEAKER) (test code = 412) PLATELET COUNT (BEAKER) (test 268 K/CU MM 150-450 code = 756) MEAN PLATELET VOLUME (BEAKER) 9.6 fL 9.4-12.3 (test code = 754) NUCLEATED RED BLOOD CELLS 0 /100 WBC 0-0 (BEAKER) (test code = 413) POCT-GLUCOSE [id number] 23:45:59 Test Item Value Reference Range Interpretation Comments POC-GLUCOSE METER 80 mg/dL 70-110 : [facility] (test code = [place], 1538) [address]: Trekking Guide/Techni amaya ID = [id number] for Konf or (contract), Lil [facility]wyn RAD, CHEST, 1 VIEW, NON [id number] 23:30:00Reason for exam:->eval pulmonary congestionShould this be performed at the bedside?->Yes [facility] : 1975 Sex: FFINAL REPORT History: eval pulmonary congestion. Comparison: None. Findings: A single view of the chest is submitted. The cardiomediastinal contours are unremarkable. Retrocardiac opacity may reflect atelectasis. Pneumonitis should be excluded clinically. There is no pneumothorax, large pleu ral effusion, evidence of overt pulmonary edema or acute bony abnormality. A tracheostomy tube is ingood position above the ketty. A left PICC line tip overlies the SVC. Signed: Jo Pereira Verified Date/Time: 06/16/2022 23:30:48 -GLUCOSE [id number] 17:30:55 Test Item Value Reference Range Interpretation Comments POC-GLUCOSE METER 78 mg/dL 70-110 : TESTED A T [facility] 6720 (CHU) (test code = [place], 1538) [address]: Trekking Guide/Techni amaya ID = [id number] for Louisa Kilpatrick CT, BRAIN, WITHOUT [id number] 14:28:00Reason for Exam (Free Text) - Addiitonal information for Radiologist->hx of stroke / anoxic /brain injury [facility] : 1975 Sex: FFINAL REPORT CT, BRAIN, WITHOUT CONTRAST CLINICAL INDICATION: Unlisted Reason for Exam COMPARISON: None TECHNIQUE: Noncontrast axial CT imaging of the brain and skull. DOSE REDUCTION: Dose modulation, iterative reconstruction, and/or weight-based adjustment of the mA/kV was utilized to reduce the radiation dose to as low as reasonably achievable. FINDINGS:Chronic appearing infarct of the ventral marie. Age-indeterminate infarct of the right cerebellar hemisphere. No acute intracranial hemorrhage. Scattered foci of hypoattenuation are present throughout the periventricular and subcortical white matter, and, although nonspecific by imaging, statistically represent mild chronic microvascular ischemic changes in this age group. No hydrocephalus. Orbits are within normal limits. No obstructive paranasal sinus disease. IMPRESSION:1.No acute intracranial hemorrhage.2.Chronic appearing infarctof the ventral marie. 3.Age- indeterminate infarct of the right cerebellar hemisphere. If there is concern for acute right cerebellar infarct, MRI is suggested. If there is persistent clinical concern for intracranial pathology, MR examination is recommended for further characterization. Signed: Magali Baez MDRepeva Verified Date/Time: 06/16/2022 14:28:06 SARS-COV2/RT-PCR ([facility])2022-06-16 11:20:51 Test Item Value Reference Range Interpretation Comments SARS-COV2/RT-PCR Negative Negative The SARS-Co V-2 target (test code = nucleic acids a re not [id number]) detected in thi s specimen. Negative result s do not preclude SARS-C oV-2 infection and s hould not be used as the chelsy e basis for patient managem ent decisions. Nega tive results must be combine d with clinical observ ations, patient history , and epidemiological information. A false negativ e result may occur if a spec imen is improperly tomi ected, transported or handled. This SARS CoV-2 test is a rapid, real-time RT-PC R test intended for th e qualitative detection of nu cleic acid from SARS-CoV-2 in a nasopharyngeal swab specimen collected from individuals suspected of CO VID-19 by their healthcar e provider. This test has been authorized by FDA under an EUA for use by authorized laboratories. This test is only authorized for the duration of the declaration that circumstances exist justifying the authorization of emergency use of in vitro diagnostic tests for detection and/or diagnosis of COVID-19 under Section 564(b)(1) of the Federal Food, Drug and Cosmetic Act, 21 U.S.C. 360bbb-3(b)(1), unless the authorization is terminated or revoked sooner. Fact Sheet for Healthcare Providers: https://www.[employer].co m/Documents/Xpert%20Xpress%20SARS%20CoV-2/Fact%20Sheets/302-3092%77HCIH-SSF-3%20 HEALTHCARE%20PROVIDERS%20FACT%20SHEET.pdf Fact Sheet for Healthcare Patients: https://www.[employer]/Documents/Xpert%20Xp ress%20SARS%20CoV-2/Fact%20Sheets/3023801%44DBCM-DZT-2%20PATIENT%20FACT%20SHEET .[id number] 10:39:32 Test Item Value Reference Range Interpretation Comments PROCALCITONIN (BEAKER) (test code 1.03 ng/mL <0.05 H = 3036) SEPSIS RISK (ng/mL)Low: 0.05-0.50Intermediate: 0.51-2.00High: >=2.01BASIC METABOLIC [id number] 10:30:08 Test Item Value Reference Range Interpretation Comments SODIUM (BEAKER) 145 meq/L 136-145 (test code = 381) POTASSIUM 3.7 meq/L 3.5-5.1 (BEAKER) (test code = 379) CHLORIDE (BEAKER) 111 meq/L 98-107 H (test code = 382) CO2 (BEAKER) 26 meq/L 22-29 (test code = 355) BLOOD UREA 7 mg/dL 7-21 NITROGEN (BEAKER) (test code = 354) CREATININE 0.64 mg/dL 0.57-1.25 (BEAKER) (test code = 358) GLUCOSE RANDOM 107 mg/dL 70-105 H (BEAKER) (test code = 652) CALCIUM (BEAKER) 9.2 mg/dL 8.4-10.2 (test code = 697) EGFR (BEAKER) 111 Interpretatio n of eGFR (test code = mL/min/1.73 values Stage De scription 1092) sq m Result G1 Leigh l or high >=90 G2 Mildly decreased 60-89 G3a Mildl y to moderately 45-5 9 G3b Moderately to s everely 30-44 G4 Severl y decreased 15-29 G5 Kidne y failure <15Reported eGF R is based on the CKD-EPI 2020 equation that d oes not use a race coefficientEsti mated GFR is not as accur ate as Creatinine Neda vasquez in predicting glom erular filtration rate . Estimated GFR is not appl icable for dialysis patien ts Trekking Guide ID - AMADO EPATIC FUNCTION [id number] 10:30:08 Test Item Value Reference Range Interpretation Comments TOTAL PROTEIN (BEAKER) (test code = 6.8 gm/dL 6.0-8.3 770) ALBUMIN (BEAKER) (test code = 1145) 3.2 g/dL 3.5-5.0 L BILIRUBIN TOTAL (BEAKER) (test code 0.3 mg/dL 0.2-1.2 = 377) BILIRUBIN DIRECT (BEAKER) (test 0.2 mg/dL 0.1-0.5 code = 706) ALKALINE PHOSPHATASE (BEAKER) (test 85 U/L 40-150 code = 346) AST (SGOT) (BEAKER) (test code = 35 U/L 5-34 H 353) ALT (SGPT) (BEAKER) (test code = 40 U/L 6-55 347) Trekking Guide ID - AMADO MUrinalysis w/Microscopic + Reflex to [id number] 10:24:21 Test Item Value Reference Range Interpretation Comments Color, UA (test code Light Yellow = 5778-6) Clarity, UA (test Clear code = 5767-9) Specific [place], UA 1.017 1.001-1.035 (test code = 5811-5) pH, UA (test code = 6.0 5.0-8.0 5803-2) Protein, UA (test 10 mg/dL Negative A code = 96694-4) Glucose, UA (test Negative Negative code = 365) Ketones, UA (test 40 mg/dL Negative A code = 2514-8) Bilirubin, UA (test Negative Negative code = 35181-5) Blood, UA (test code Negative Negative = 65232-2) Nitrite, UA (test Negative Negative code = 5802-4) Leukocytes, UA (test Trace Negative A code = 5799-2) Urobilinogen, UA 0.2 mg/dL 0.2-1.0 (test code = 72254-4) RBC, UA (test code = 2 See_Comment [Autom ated 58240-2) message] The system which generated this result transmit may reference range : /HPF. The reference range was not used to interpret this result as normal/abnormal . WBC, UA (test code = 9 See_Comment [Autom ated 5821-4) message] The system which generated this result transmit may reference range : /HPF. The reference range was not used to interpret this result as normal/abnormal . Bacteria, UA (test Rare code = 75437-7) Mucus (test code = Rare 8247-9) Squam Epithel, UA 1 See_Comment [Automate d (test code = 47587-7) messag e] The system which generated this result transmit may reference range : /HPF. The reference range was not used to interpret this result as normal/abnormal . Hyaline Casts, UA 4 See_Comment [Automate d (test code = 51384-2) messag e] The system which generated this result transmit may reference range : /LPF. The reference range was not used to interpret this result as normal/abnormal . Crystals, Urine (test None Seen code = 51831-9) Specimen Source (test code = 2795) TONY (test code = TONY) Trekking Guide ID - [auto]Trekking Guide ID - tech Lab Interpretation Abnormal (test code = 28650-9) [facility] [id number] 10:24:21 Test Item Value Reference Range Interpretation Comments COLOR (BEAKER) (test code = 470) Light Yellow CLARITY (BEAKER) (test code = Clear 469) SPECIFIC GRAVITY UA (BEAKER) 1.017 1.001-1.035 (test code = 468) PH UA (BEAKER) (test code = 467) 6.0 5.0-8.0 PROTEIN UA (BEAKER) (test code = 10 mg/dL Negative A 464) GLUCOSE UA (BEAKER) (test code = Negative Negative 365) KETONES UA (BEAKER) (test code = 40 mg/dL Negative A 371) BILIRUBIN UA (BEAKER) (test code Negative Negative = 462) BLOOD UA (BEAKER) (test code = Negative Negative 461) NITRITE UA (BEAKER) (test code = Negative Negative 465) LEUKOCYTE ESTERASE UA (BEAKER) Trace Negative A (test code = 466) UROBILINOGEN UA (BEAKER) (test 0.2 mg/dL 0.2-1.0 code = 463) RBC UA (BEAKER) (test code = 2 /HPF 519) WBC UA (BEAKER) (test code = 9 /HPF 520) BACTERIA (BEAKER) (test code = Rare 517) MUCUS (BEAKER) (test code = Rare 1574) SQUAMOUS EPITHELIAL (BEAKER) 1 /HPF (test code = 516) HYALINE CASTS (BEAKER) (test 4 /LPF code = 514) CRYSTALS, URINE (BEAKER) (test None Seen code = 1521) SOURCE(BEAKER) (test code = 2795) Trekking Guide ID - [auto]Trekking Guide ID - techLACTIC ACID, [id number] 10:21:26 Test Item Value Reference Range Interpretation Comments LACTATE BLOOD VENOUS (2) (BEAKER) 1.86 mmol/L 0.50-2.20 (test code = 2872) Trekking Guide JANNY FISCHER [facility] (HEMOGRAM ONLY)2022-06-16 09:56:33 Test Item Value Reference Range Interpretation Comments WHITE BLOOD CELL COUNT (BEAKER) 14.7 K/ L 3.5-10.5 H (test code = 775) RED BLOOD CELL COUNT (BEAKER) 3.66 M/ L 3.93-5.22 L (test code = 761) HEMOGLOBIN (BEAKER) (test code = 9.9 GM/DL 11.2-15.7 L 410) HEMATOCRIT (BEAKER) (test code = 31.2 % 34.1-44.9 L 411) MEAN CORPUSCULAR VOLUME (BEAKER) 85.2 fL 79.4-94.8 (test code = 753) MEAN CORPUSCULAR HEMOGLOBIN 27.0 pg 25.6-32.2 (BEAKER) (test code = 751) MEAN CORPUSCULAR HEMOGLOBIN CONC 31.7 GM/DL 32.2-35.5 L (BEAKER) (test code = 752) RED CELL DISTRIBUTION WIDTH 14.2 % 11.7-14.4 (BEAKER) (test code = 412) PLATELET COUNT (BEAKER) (test 367 K/CU MM 150-450 code = 756) MEAN PLATELET VOLUME (BEAKER) 10.0 fL 9.4-12.3 (test code = 754) NUCLEATED RED BLOOD CELLS 0 /100 WBC 0-0 (BEAKER) (test code = 413) BLOOD GAS, [id number] 09:55:57 Test Item Value Reference Range Interpretation Comments PH VENOUS (BEAKER) (test code = 7.41 7.32-7.42 701) PCO2 VENOUS (BEAKER) (test code = 44 mm Hg 41-51 755) PO2 VENOUS (BEAKER) (test code = 58 mm Hg 25-40 H 702) O2 SATURATION VENOUS (BEAKER) 90.2 % 40.0-70.0 H (test code = 703) HCO3 VENOUS (BEAKER) (test code = 27 mmol/L 21-29 705) BASE EXCESS VENOUS (BEAKER) (test 1.9 mmol/L -2.0-3.0 code = 704) PATIENT TEMPERATURE (BEAKER) (test 37.0 code = 1818) [id number] 16:03:00 Test Item Value Reference Range Interpretation Comments GLUBED (test code = GLUBED) 101 MG/DL 70-105 N [id number] 11:04:00 Test Item Value Reference Range Interpretation Comments GLUBED (test code = GLUBED) 179 MG/DL 70-105 H BASIC METABOLIC [id number] 08:00:00 Test Item Value Reference Range Interpretation [...] mg/dL 8.5-10.5 N = CA) CBC W/AUTO [id number] 06:57:00 Test Item Value Reference Range Interpretation [...] = BA#) 0.0 x10 3/uL 0.0-0.1 N [id number] 06:14:00 Test Item Value Reference Range Interpretation Comments GLUBED (test code = GLUBED) 106 MG/DL 70-105 H [id number] 20:22:00 Test Item Value Reference Range Interpretation Comments GLUBED (test code = GLUBED) 120 MG/DL 70-105 H [id number] 15:21:00 Test Item Value Reference Range Interpretation Comments GLUBED (test code = GLUBED) 125 MG/DL 70-105 H [id number] 11:16:00 Test Item Value Reference Range Interpretation Comments GLUBED (test code = GLUBED) 153 MG/DL 70-105 H [id number] 06:36:00 Test Item Value Reference Range Interpretation Comments GLUBED (test code = GLUBED) 135 MG/DL 70-105 H [id number] 22:08:00 Test Item Value Reference Range Interpretation Comments GLUBED (test code = GLUBED) 105 MG/DL 70-105 N [id number] 16:11:00 Test Item Value Reference Range Interpretation Comments GLUBED (test code = GLUBED) 123 MG/DL 70-105 H [id number] 12:14:00 Test Item Value Reference Range Interpretation Comments GLUBED (test code = GLUBED) 117 MG/DL 70-105 H CBC W/AUTO [id number] 06:20:00 Test Item Value Reference Range Interpretation [...] 0.0 x10 3/uL 0.0-0.1 N BASIC METABOLIC [id number] 06:19:00 Test Item Value Reference Range Interpretation [...] code 9.1 mg/dL 8.5-10.5 N = CA) [id number] 06:05:00 Test Item Value Reference Range Interpretation Comments GLUBED (test code = GLUBED) 128 MG/DL 70-105 H [id number] 00:55:00 Test Item Value Reference Range Interpretation Comments GLUBED (test code = GLUBED) 128 MG/DL 70-105 H - XR CHEST 1 [id number] 18:02:00 [facility] : 1975 Sex: FPatient Name: JERI VILLALOBOS Unit No: [id number] EXAMS: CPT: [id number] XR CHEST 1 V 71976 STUDY: - XR CHEST 1 V INDICATION: sob and tachycardia TECHNIQUE: AP views of the chest. COMPARISON: Chest radiograph from 04/13/2022. FINDINGS: Tracheostomy cannula as seen previously. No mediastinal shift or enlargement. Normal cardiac silhouette. Mild symmetric low lung volume. Patchy opacity in left lower lung r etrocardiac region which may represent pneumonia and/or atelectasis. A right infrahilar opacity is less conspicuous compared to prior exam. No definite pleural effusion or pneumothorax. IMPRESSION: 1.Persistent left lower lung patchy opacity medially which may represent atelectasis and/or pneumonia.2. Right lower lung infrahilar opacity is less compared to prior exam. at 1802 Reported and signed by: NONI CHENEY MD CC: Lorna Douglass MD; Ruiz Vaughn MD Technologist: Oly Deleon Time: DAP (Gy m2): Air Kerma (mGy): Trscr Dt/Tm: 04/17/2022 (1801) by:Robin Orig Print D/T: S: 04/17/2022 (1804) BATCH NO: N/A Name: JERI VILLALOBOS [facility] Phys: Ruiz Wolfe MD [address] [facility] : 1975 Age: 46 Sex: F [place], [place] [address] Loc: N.0377 1 Exam Date: 04/17/2022 Status: ADM IN PH: FAX: PAGE 1 Signed [id number] 15:58:00 Test Item Value Reference Range Interpretation Comments GLUBED (test code = GLUBED) 142 MG/DL 70-105 H [id number] 11:34:00 Test Item Value Reference Range Interpretation Comments GLUBED (test code = GLUBED) 113 MG/DL 70-105 H BASIC METABOLIC [id number] 07:39:00 Test Item Value Reference Range Interpretation [...] mg/dL 8.5-10.5 N = CA) CBC W/AUTO [id number] 07:21:00 Test Item Value Reference Range Interpretation [...] = BA#) 0.0 x10 3/uL 0.0-0.1 N [id number] 05:50:00 Test Item Value Reference Range Interpretation Comments GLUBED (test code = GLUBED) 146 MG/DL 70-105 H [id number] 23:41:00 Test Item Value Reference Range Interpretation Comments GLUBED (test code = GLUBED) 103 MG/DL 70-105 N [id number] 15:36:00 Test Item Value Reference Range Interpretation Comments GLUBED (test code = GLUBED) 120 MG/DL 70-105 H [id number] 12:03:00 Test Item Value Reference Range Interpretation Comments GLUBED (test code = GLUBED) 134 MG/DL 70-105 H BASIC METABOLIC [id number] 07:51:00 Test Item Value Reference Range Interpretation [...] mg/dL 8.5-10.5 N = CA) CBC W/AUTO [id number] 07:48:00 Test Item Value Reference Range Interpretation [...] = 0.0 x10 3/uL 0.0-0.1 N BA#) [id number] 06:59:00 Test Item Value Reference Range Interpretation Comments GLUBED (test code = GLUBED) 125 MG/DL 70-105 H [id number] 00:00:00 Test Item Value Reference Range Interpretation Comments GLUBED (test code = GLUBED) 125 MG/DL 70-105 H [id number] 19:47:00 Test Item Value Reference Range Interpretation Comments GLUBED (test code = GLUBED) 106 MG/DL 70-105 H [id number] 16:21:00 Test Item Value Reference Range Interpretation Comments GLUBED (test code = GLUBED) 153 MG/DL 70-105 H [id number] 12:30:00 Test Item Value Reference Range Interpretation Comments GLUBED (test code = GLUBED) 114 MG/DL 70-105 H [id number] 05:46:00 Test Item Value Reference Range Interpretation Comments GLUBED (test code = GLUBED) 136 MG/DL 70-105 H CBC W/AUTO [id number] 04:49:00 Test Item Value Reference Range Interpretation [...] 0.0 x10 3/uL 0.0-0.1 N BASIC METABOLIC [id number] 04:33:00 Test Item Value Reference Range Interpretation [...] code 8.9 mg/dL 8.5-10.5 N = CA) [id number] 20:48:00 Test Item Value Reference Range Interpretation Comments GLUBED (test code = GLUBED) 89 MG/DL 70-105 N [id number] 17:18:00 Test Item Value Reference Range Interpretation Comments GLUBED (test code = GLUBED) 117 MG/DL 70-105 H [id number] 11:19:00 Test Item Value Reference Range Interpretation Comments GLUBED (test code = GLUBED) 113 MG/DL 70-105 H [id number] 06:05:00 Test Item Value Reference Range Interpretation Comments GLUBED (test code = GLUBED) 118 MG/DL 70-105 H BASIC METABOLIC [id number] 04:57:00 Test Item Value Reference Range Interpretation [...] code 8.5 mg/dL 8.5-10.5 N = CA) [id number] 04:57:00 Test Item Value Reference Range Interpretation Comments PHOSPHOROUS (test code = PHOS) 3.8 mg/dl 2.5-4.6 N [id number] 04:57:00 Test Item Value Reference Range Interpretation Comments MAGNESIUM (test code = MAG) 1.8 mg/dl 1.8-2.5 N CBC W/AUTO [id number] 04:44:00 Test Item Value Reference Range Interpretation [...] = BA#) 0.0 x10 3/uL 0.0-0.1 N [id number] 01:16:00 Test Item Value Reference Range Interpretation Comments GLUBED (test code = GLUBED) 84 MG/DL 70-105 N [id number] 17:04:00 Test Item Value Reference Range Interpretation Comments GLUBED (test code = GLUBED) 112 MG/DL 70-105 H [id number] 12:18:00 Test Item Value Reference Range Interpretation Comments GLUBED (test code = GLUBED) 107 MG/DL 70-105 H - XR CHEST 1 [id number] 08:45:00 [facility] 1975 Sex: FPatient Name: JERI VILLALOBOS Unit No: [id number] EXAMS: CPT: [id number] XR CHEST 1 V 33102 CHEST RADIOGRAPH - 1 view CLINICAL HISTORY: [...] MD CC: Jorje Eller MD; Manuel Rose DO Technologist: Dyan Deleon Time: DAP (Gy m2): Air Kerma (mGy): Trscr Dt/Tm: 04/13/2022 (0845) by: Ibis Orig Print D/T: S: 04/13/2022 (0848) BATCH NO: N/A Name: JERI VILLALOBOS [facility] Phys: Jorje Brasher MD [address] [facility] : 1975 Age: 46 Sex: F [place] [address] Loc: N.2058 1 Exam Date: 04/13/2022 Status: ADM IN PH: FAX: PAGE 1 Signed Report [id number] 08:10:00 Test Item Value Reference Range Interpretation Comments GLUBED (test code = GLUBED) 102 MG/DL 70-105 N ARTERIAL BLOOD [id number] 04:42:00 Test Item Value Reference Range Interpretation [...] d message] code = MARY) The system [employer] generated this result transmit may reference range [...] g/dL 12.0-18.0 N = THB) BASIC METABOLIC [id number] 04:11:00 Test Item Value Reference Range Interpretation [...] in AM if not alreadyComments to Phleb: ordered.[id number] 04:11:00 Test Item Value Reference Range Interpretation Comments MAGNESIUM (test code = MAG) 1.8 mg/dl 1.8-2.5 N Spec Comments: Repeat Serum Magnesium level in AM if not alreadyComments to Phleb: ordered.CALCIUM [id number] 03:19:00 Test Item Value Reference Range Interpretation Comments CALCIUM IONIZED (test code = WESLY) 1.20 mmol/L 1.13-1.32 N CBC W/AUTO [id number] 03:06:00 Test Item Value Reference Range Interpretation [...] 0.0 x10 3/uL 0.0-0.1 N ARTERIAL BLOOD [id number] 20:54:00 Test Item Value Reference Range Interpretation [...] d message] code = MARY) The system [employer] generated this result transmit may reference range [...] code 15.2 g/dL 12.0-18.0 N = THB) [id number] 16:48:00 Test Item Value Reference Range Interpretation Comments GLUBED (test code = GLUBED) 132 MG/DL 70-105 H COMPREHENSIVE METABOLIC [id number] 16:32:00 Test Item Value Reference Range Interpretation [...] 42-121 N PHOSPHATASE (test code = ALKP) [id number] 16:32:00 Test Item Value Reference Range Interpretation Comments PHOSPHOROUS (test code = PHOS) 3.7 mg/dl 2.5-4.6 N [id number] 16:32:00 Test Item Value Reference Range Interpretation Comments MAGNESIUM (test code = MAG) 2.2 mg/dl 1.8-2.5 N [id number] 11:37:00 Test Item Value Reference Range Interpretation Comments GLUBED (test code = GLUBED) 139 MG/DL 70-105 H - CT HEAD/BRAIN W/O [id number] 10:15:00 [facility] : 1975 Sex: FPatient Name: JERI VILLALOBOS Unit No: [id number] EXAMS: CPT: [id number] CT HEAD/BRAIN W/O CONT 03224 EXAM: CT BRAIN WITHOUT CONTRAST DATE: 04/12/2022 [...] (1018) BATCH NO: N/A Name: [facility] S[facility]. - Manuel Rose [address] [facility] : 1975 Age: 46 Sex: F [place] [address] Loc: N.2058 1 Exam Date: 04/12/2022 Status: ADM IN PH: FAX: PAGE 1 Signed ReportARTERIAL BLOOD [id number] 10:07:00 Test Item Value Reference Range Interpretation [...] d message] code = MARY) The system [employer] generated this result transmit may reference range [...] (test Yes code = ALLENS) BLOOD GAS W/[id number] 10:07:00 Test Item Value Reference Range Interpretation Comments ARTERIAL BLOOD GAS PH 7.463 7.350-7.450 H (test code = PHA) ARTERIAL BLOOD GAS 28.2 mmHg 35-45 L PCO2 (test code = PCO2A) BICARBONATE TOTAL 19.7 mmol/L 22-26 L HCO3 (test code = HCO3) BASE EXCESS (test -2.7 mmol/L See_Comment L [Automate d message] code = MARY) The system [employer] generated this result transmit may reference range [...] N = THB) - CTA CHEST FOR [id number] 10:06:00 [facility] : 1975 Sex: FPatient Name: JERI VILLALOBOS Unit No: [id number] EXAMS: CPT: [id number] [place] [address] CTA CHESTWITH CONTRAST: INDICATIONS:Overdose. Tachycardia. COMPARISON: None available TECHNIQUE: [...] with ACR practice standards and adherence to site administrator's recommendations. Contrast: 100cc Isovue-300. Total DPL: 388.21mGy*cm. [...] The pulmonary artery are opacified and no pulmonaryemboli seen. A PEG tube is in place. IMPRESSION: No pulmonary emboli. Left lower lobe pneumonia, relatively stable. at 1006 Reported and signedby: Jalen Black MD CC: Manuel Rose DO Technologist: Sarah Perez CTDI: 10.48 DLP: 388.21 Trscr Dt/Tm: 04/12/2022 (1006) by:[email or web address] Orig Print D/T: S: 04/12/2022 (1009) BATCH NO: N/A Name: JERI VILLALOBOS [facility] Phys: SIDFA.01 - [place],Manuel Sidhu D [address] : 1975 Age: 46 Sex: F [place], [place] [address] Loc: N.2058 1 Exam Date: 04/12/2022 Status: ADM IN PH: FAX: PAGE 1 Signed ReportCOMPREHENSIVE METABOLIC [id number] 09:41:00 Test Item Value Reference Range Interpretation [...] PHOSPHATASE (test code = ALKP) Spec Comments: PONY EDGER ProtocolCREATINE KINASE (CK)2022-04-12 09:41:00 Test Item Value Reference Range Interpretation Comments CREATINE KINASE (CK) (test code = CK) 80 U/L 0-210 N Spec Comments: PONY EDGER [id number] 09:41:00 Test Item Value Reference Range Interpretation Comments MAGNESIUM (test code = MAG) 2.0 mg/dl 1.8-2.5 N Spec Comments: PONY EDGER ProtocolCBC W/AUTO [id number] 09:37:00 Test Item Value Reference Range Interpretation [...] 0.1 x10 3/uL 0.0-0.1 N Spec Comments: PONY EDGER [id number] 09:37:00 Test Item Value Reference Range Interpretation Comments TROPONIN-I (test code = TROPI) <0.020 ng/mL 0.000-0.034 N CBC W/AUTO [id number] 08:38:00 Test Item Value Reference Range Interpretation [...] (test code = ADEQUATE ADEQUATE PLTEST) DIFFERENTIAL [id number] 08:38:00 Test Item Value Reference Range Interpretation Comments PLATELET MORPHOLOGY (test code = Normal NORMAL PLTMORPH) - XR CHEST 1 [id number] 08:34:00 [facility] : 1975 Sex: FPatient Name: JERI VILLALOBOS Unit No: [id number] EXAMS: CPT: [id number] XR CHEST 1 V 87056 CHEST RADIOGRAPH, ONE VIEW: FRONTAL HISTORY: Shortness of breath. COMPARISON: April 01 2022. FINDINGS: Biapical lungscarring. Basilar congestion. Borderline cardiomegaly. IMPRESSION: Basilar congestion and underlyingcardiomegaly. at 0834 Reported and signed by: Jalen Black MD CC: Manuel Rose DO Technologist: Galdino Deleon Time: DAP (Gy m2): Air Kerma(mGy): Trscr Dt/Tm: 04/12/2022 (0834) by:[email or web address] Orig Print D/T: S: 04/12/2022 (0837) BATCH NO: N/A Name: JERI VILLALOBOS [facility] Phys: SIDFA.01 - [place],[facility]uel A [facility] [address] [facility] 1975 Age: 46 Sex: F [place], [place] [address] Loc: N.0385 1 Exam Date: 04/12/2022 Status: ADM IN PH: FAX: PAGE 1 Signed ReportBASIC METABOLIC [id number] 08:21:00 Test Item Value Reference Range Interpretation [...] code 9.4 mg/dL 8.5-10.5 N = CA) [id number] 08:07:00 Test Item Value Reference Range Interpretation Comments GLUBED (test code = GLUBED) 116 MG/DL 70-105 H [id number] 06:06:00 Test Item Value Reference Range Interpretation Comments CREATININE (test code = CREAT) 0.63 mg/dL 0.44-1.03 N [id number] 06:03:00 Test Item Value Reference Range Interpretation Comments GLUBED (test code = GLUBED) 124 MG/DL 70-105 H [id number] 21:32:00 Test Item Value Reference Range Interpretation Comments GLUBED (test code = GLUBED) 125 MG/DL 70-105 H [id number] 15:13:00 Test Item Value Reference Range Interpretation Comments GLUBED (test code = GLUBED) 138 MG/DL 70-105 H [id number] 12:10:00 Test Item Value Reference Range Interpretation Comments GLUBED (test code = GLUBED) 129 MG/DL 70-105 H [id number] 07:01:00 Test Item Value Reference Range Interpretation Comments GLUBED (test code = GLUBED) 129 MG/DL 70-105 H [id number] 06:14:00 Test Item Value Reference Range Interpretation Comments CREATININE (test code = CREAT) 0.61 mg/dL 0.44-1.03 N [id number] 21:53:00 Test Item Value Reference Range Interpretation Comments GLUBED (test code = GLUBED) 132 MG/DL 70-105 H [id number] 17:28:00 Test Item Value Reference Range Interpretation Comments GLUBED (test code = GLUBED) 124 MG/DL 70-105 H [id number] 08:46:00 Test Item Value Reference Range Interpretation Comments CREATININE (test code = CREAT) 0.67 mg/dL 0.44-1.03 N [id number] 06:18:00 Test Item Value Reference Range Interpretation Comments GLUBED (test code = GLUBED) 137 MG/DL 70-105 H [id number] 20:49:00 Test Item Value Reference Range Interpretation Comments GLUBED (test code = GLUBED) 122 MG/DL 70-105 H [id number] 16:26:00 Test Item Value Reference Range Interpretation Comments GLUBED (test code = GLUBED) 135 MG/DL 70-105 H [id number] 11:42:00 Test Item Value Reference Range Interpretation Comments GLUBED (test code = GLUBED) 139 MG/DL 70-105 H [id number] 09:59:00 Test Item Value Reference Range Interpretation Comments CREATININE (test code = CREAT) 0.63 mg/dL 0.44-1.03 N VANCOMYCIN [id number] 09:49:00 Test Item Value Reference Range Interpretation Comments VANCOMYCIN TROUGH 18.2 ug/ml 10.0-20.0 N Please ref er to (test code = VANCT) Medicati on Administration Record (MAR) forlast d ose date and time. [id number] 20:27:00 Test Item Value Reference Range Interpretation Comments GLUBED (test code = GLUBED) 134 MG/DL 70-105 H [id number] 15:35:00 Test Item Value Reference Range Interpretation Comments GLUBED (test code = GLUBED) 110 MG/DL 70-105 H [id number] 12:06:00 Test Item Value Reference Range Interpretation Comments GLUBED (test code = GLUBED) 122 MG/DL 70-105 H [id number] 06:35:00 Test Item Value Reference Range Interpretation Comments CREATININE (test code = CREAT) 0.55 mg/dL 0.44-1.03 N [id number] 05:42:00 Test Item Value Reference Range Interpretation Comments GLUBED (test code = GLUBED) 87 MG/DL 70-105 N [id number] 20:26:00 Test Item Value Reference Range Interpretation Comments GLUBED (test code = GLUBED) 116 MG/DL 70-105 H [id number] 15:57:00 Test Item Value Reference Range Interpretation Comments GLUBED (test code = GLUBED) 126 MG/DL 70-105 H [id number] 11:55:00 Test Item Value Reference Range Interpretation Comments GLUBED (test code = GLUBED) 137 MG/DL 70-105 H BASIC METABOLIC [id number] 09:48:00 Test Item Value Reference Range Interpretation [...] 8.9 mg/dL 8.5-10.5 N = CA) VANCOMYCIN [id number] 09:44:00 Test Item Value Reference Range Interpretation Comments VANCOMYCIN TROUGH 19.9 ug/ml 10.0-20.0 N Please ref er to (test code = VANCT) Medicati on Administration Record (MAR) forlast d ose date and time. CBC W/AUTO [id number] 09:22:00 Test Item Value Reference Range Interpretation [...] = BA#) 0.0 x10 3/uL 0.0-0.1 N [id number] 07:10:00 Test Item Value Reference Range Interpretation Comments CREATININE (test code = CREAT) 0.65 mg/dL 0.44-1.03 N [id number] 04:46:00 Test Item Value Reference Range Interpretation Comments GLUBED (test code = GLUBED) 122 MG/DL 70-105 H [id number] 16:41:00 Test Item Value Reference Range Interpretation Comments GLUBED (test code = GLUBED) 128 MG/DL 70-105 H [id number] 11:51:00 Test Item Value Reference Range Interpretation Comments GLUBED (test code = GLUBED) 130 MG/DL 70-105 H VANCOMYCIN [id number] 09:01:00 Test Item Value Reference Range Interpretation Comments VANCOMYCIN TROUGH 11.4 ug/ml 10.0-20.0 N Please ref er to (test code = VANCT) Medicati on Administration Record (MAR) forlast d ose date and time. BASIC METABOLIC [id number] 08:56:00 Test Item Value Reference Range Interpretation [...] mg/dL 8.5-10.5 N = CA) CBC W/AUTO [id number] 08:52:00 Test Item Value Reference Range Interpretation [...] = BA#) 0.0 x10 3/uL 0.0-0.1 N [id number] 06:04:00 Test Item Value Reference Range Interpretation Comments GLUBED (test code = GLUBED) 129 MG/DL 70-105 H [id number] 23:59:00 Test Item Value Reference Range Interpretation Comments GLUBED (test code = GLUBED) 118 MG/DL 70-105 H [id number] 15:29:00 Test Item Value Reference Range Interpretation Comments GLUBED (test code = GLUBED) 137 MG/DL 70-105 H [id number] 10:42:00 Test Item Value Reference Range Interpretation Comments GLUBED (test code = GLUBED) 160 MG/DL 70-105 H [id number] 06:44:00 Test Item Value Reference Range Interpretation Comments GLUBED (test code = GLUBED) 143 MG/DL 70-105 H [id number] 06:32:00 Test Item Value Reference Range Interpretation Comments CREATININE (test code = CREAT) 0.61 mg/dL 0.44-1.03 N [id number] 22:14:00 Test Item Value Reference Range Interpretation Comments GLUBED (test code = GLUBED) 134 MG/DL 70-105 H [id number] 15:26:00 Test Item Value Reference Range Interpretation Comments GLUBED (test code = GLUBED) 127 MG/DL 70-105 H [id number] 10:51:00 Test Item Value Reference Range Interpretation Comments GLUBED (test code = GLUBED) 136 MG/DL 70-105 H [id number] 07:11:00 Test Item Value Reference Range Interpretation Comments CREATININE (test code = CREAT) 0.70 mg/dL 0.44-1.03 N [id number] 05:48:00 Test Item Value Reference Range Interpretation Comments GLUBED (test code = GLUBED) 104 MG/DL 70-105 N [id number] 20:44:00 Test Item Value Reference Range Interpretation Comments GLUBED (test code = GLUBED) 93 MG/DL 70-105 N [id number] 16:59:00 Test Item Value Reference Range Interpretation Comments GLUBED (test code = GLUBED) 110 MG/DL 70-105 H [id number] 12:41:00 Test Item Value Reference Range Interpretation Comments GLUBED (test code = GLUBED) 107 MG/DL 70-105 H [id number] 06:04:00 Test Item Value Reference Range Interpretation Comments GLUBED (test code = GLUBED) 100 MG/DL 70-105 N [id number] 20:16:00 Test Item Value Reference Range Interpretation Comments GLUBED (test code = GLUBED) 104 MG/DL 70-105 N [id number] 16:43:00 Test Item Value Reference Range Interpretation Comments GLUBED (test code = GLUBED) 139 MG/DL 70-105 H [id number] 12:11:00 Test Item Value Reference Range Interpretation Comments GLUBED (test code = GLUBED) 112 MG/DL 70-105 H [id number] 08:07:00 Test Item Value Reference Range Interpretation Comments CREATININE (test code = CREAT) 0.59 mg/dL 0.44-1.03 N [id number] 05:27:00 Test Item Value Reference Range Interpretation Comments GLUBED (test code = GLUBED) 135 MG/DL 70-105 H [id number] 00:46:00 Test Item Value Reference Range Interpretation Comments GLUBED (test code = GLUBED) 117 MG/DL 70-105 H [id number] 16:35:00 Test Item Value Reference Range Interpretation Comments GLUBED (test code = GLUBED) 104 MG/DL 70-105 N [id number] 11:28:00 Test Item Value Reference Range Interpretation Comments GLUBED (test code = GLUBED) 138 MG/DL 70-105 H MISC [id number] 11:03:00 Test Item Value Reference Range Interpretation Comments [facility] Procaalcitoni n = 0.11 ng/mL (test code = HIGH Ref range = 0.00-0.08 MISCCHEM) Jeri Villalobos : 1975 Patient ReportP atient ID: Age: 46 Account Numb er: [id number] n ID: [id number] Sex: Female Ordering Physic aakash:Ordered Items: Procalci toninDate Collected: 12/2021 Date Received: 03/29 DateReported: 0 03/30/2022 Fasting: Not GivenProcalcito ninTest Current Result and Flag Previous Result and Date UnitsReference IntervalProcalc zsahmu42 0.11 High ng/mL 0.00 -0.08A procalcitonin ( [...] years where there iss ufficient patient [facility] data tomatch the res ult to the patient. Result s from certain testsare exclud ed from the Previous Result display.Icon Legend Out of R eference Range Critical or Stephany rtPerforming Labs01: HD - [place] [address],[address] D ir: Tiburcio Stevens MDFor Inquiries , the physician may contact Branch:[phone] Lab: [phone] ient DetailsLedMirela paradaaPhone:Date o f : 1975Age: 46Sex: FemalePatient I D:Alternate Patient ID:Phys ician DetailsNorth [place] [facility] [address] [place], [place]Phone: Nct ount Number: [id number] an ID: [id number]:Spec imen DetailsSpecimen ID: [id number] ontrol ID: [id number] rnate Control Number: [id number] Collected: 12/2021 1328 LocalDate Recei elba: 03/29/2022 0000 ETDate Ent ered: 03/29/2022 2125 ETDate Reported: 03/30 1509 ETRte: 00Date C reated and Stored 03/30/22 1514 ET Final Report Page 1of 1 [id number] 07:01:00 Test Item Value Reference Range Interpretation Comments CREATININE (test code = CREAT) 0.56 mg/dL 0.44-1.03 N [id number] 06:29:00 Test Item Value Reference Range Interpretation Comments GLUBED (test code = GLUBED) 130 MG/DL 70-105 H [id number] 21:10:00 Test Item Value Reference Range Interpretation Comments GLUBED (test code = GLUBED) 99 MG/DL 70-105 N [id number] 16:24:00 Test Item Value Reference Range Interpretation Comments GLUBED (test code = GLUBED) 104 MG/DL 70-105 N [id number] 11:40:00 Test Item Value Reference Range Interpretation Comments GLUBED (test code = GLUBED) 110 MG/DL 70-105 H COMPREHENSIVE METABOLIC [id number] 07:12:00 Test Item Value Reference Range Interpretation [...] 42-121 N PHOSPHATASE (test code = ALKP) [id number] 06:23:00 Test Item Value Reference Range Interpretation Comments GLUBED (test code = GLUBED) 122 MG/DL 70-105 H [id number] 21:53:00 Test Item Value Reference Range Interpretation Comments GLUBED (test code = GLUBED) 112 MG/DL 70-105 H [id number] 15:53:00 Test Item Value Reference Range Interpretation Comments GLUBED (test code = GLUBED) 117 MG/DL 70-105 H PATHOLOGY REVIEW [id number] 11:04:00 Test Item Value Reference Range Interpretation Comments NAME OF TEST PROCALCITONIN (test code = NAMEMISC) GENETIC TEST NO (test code = GENETIC2) PERFORM SITE LCA (test code = LABPERS) TEST COST (test 0.00 code = LABCOST) LIST CPT CODES 000 (test code = MISCCPT) APPROVAL (test YES code = APPROVAL) PATH REVIEW Discussed with Dr. MARES (test BoomRy Inga. Lloyd atient code = PATH is spiking feve rs. REVIEW COM) Dr. Inga wong els Procalcitonin i s necessary for currentpatient care. Procalcitonin o rder is approved. SIGNATURE (test Kale Jewell, code = M.D. SIGNATURE) [id number] 10:36:00 Test Item Value Reference Range Interpretation Comments GLUBED (test code = GLUBED) 100 MG/DL 70-105 N COMPREHENSIVE METABOLIC [id number] 07:52:00 Test Item Value Reference Range Interpretation [...] PHOSPHATASE (test code = ALKP) CBC W/AUTO [id number] 07:38:00 Test Item Value Reference Range Interpretation [...] = BA#) 0.0 x10 3/uL 0.0-0.1 N [id number] 06:28:00 Test Item Value Reference Range Interpretation Comments GLUBED (test code = GLUBED) 106 MG/DL 70-105 H [id number] 21:04:00 Test Item Value Reference Range Interpretation Comments GLUBED (test code = GLUBED) 122 MG/DL 70-105 H [id number] 15:47:00 Test Item Value Reference Range Interpretation Comments GLUBED (test code = GLUBED) 114 MG/DL 70-105 H MISCELLANEOUS LAB SEND [id number] 11:46:00 Test Item Value Reference Range Interpretation Comments MISCELLANEOUS LAB SEND PATHOLOGY REVIEW REQ OUT (test code = MISCLABSO) Test: Procalcitonin, serumOrdering physician contact information: Dr Xiong [phone] test: [id number] 11:03:00 Test Item Value Reference Range Interpretation Comments GLUBED (test code = GLUBED) 120 MG/DL 70-105 H COMPREHENSIVE METABOLIC [id number] 10:43:00 Test Item Value Reference Range Interpretation [...] N PHOSPHATASE (test code = ALKP) VANCOMYCIN [id number] 10:42:00 Test Item Value Reference Range Interpretation Comments VANCOMYCIN TROUGH 16.2 ug/ml 10.0-20.0 N Please ref er to (test code = VANCT) Medicati on Administration Record (MAR) forlast d ose date and time. [id number] 05:41:00 Test Item Value Reference Range Interpretation Comments GLUBED (test code = GLUBED) 121 MG/DL 70-105 H [id number] 03:50:00 Test Item Value Reference Range Interpretation Comments GLUBED (test code = GLUBED) 96 MG/DL 70-105 N [id number] 20:35:00 Test Item Value Reference Range Interpretation Comments GLUBED (test code = GLUBED) 127 MG/DL 70-105 H [id number] 16:32:00 Test Item Value Reference Range Interpretation Comments GLUBED (test code = GLUBED) 116 MG/DL 70-105 H [id number] 11:29:00 Test Item Value Reference Range Interpretation Comments GLUBED (test code = GLUBED) 114 MG/DL 70-105 H URINALYSIS [id number] 08:26:00 Test Item Value Reference Range Interpretation [...] CRYSTALS (test code = CAOXU) CBC W/AUTO [id number] 07:32:00 Test Item Value Reference Range Interpretation [...] 0.0 x10 3/uL 0.0-0.1 N RECOLLECT - [id number] 06:14:00 Test Item Value Reference Range Interpretation Comments GLUBED (test code = GLUBED) 126 MG/DL 70-105 H COMPREHENSIVE METABOLIC [id number] 05:55:00 Test Item Value Reference Range Interpretation [...] 42-121 N PHOSPHATASE (test code = ALKP) [id number] 20:47:00 Test Item Value Reference Range Interpretation Comments GLUBED (test code = GLUBED) 127 MG/DL 70-105 H [id number] 15:48:00 Test Item Value Reference Range Interpretation Comments GLUBED (test code = GLUBED) 138 MG/DL 70-105 H - XR CHEST 1 [id number] 12:31:00 [facility] : 1975 Sex: FPatient Name: JERI VILLALOBOS Unit No: [id number] EXAMS: CPT: [id number] XR CHEST 1 V 07193 CHEST, 1 VIEW: HISTORY: f/u. Fevers COMPARISON: [...] MD CC: Salas Salazar MD; Manuel Rose DOTechnologist: Saira Deleon Time: DAP (Gy m2): Air Kerma (mGy): Trscr Dt/Tm: 03/26/2022 (1231) by:[email or web address] Orig Print D/T: S: 03/26/2022 (1234) BATCH NO: N/A Name: JERI VILLALOBOS [facility] Phys: Salas Fan [address] [facility] : 1975 Age: 46 Sex: F [place], [place] [address] Loc: N.0385 1 Exam Date: 03/26/2022 Status: ADM IN PH: FAX: PAGE 1 Signed [id number] 11:50:00 Test Item Value Reference Range Interpretation Comments GLUBED (test code = GLUBED) 165 MG/DL 70-105 H [id number] 06:35:00 Test Item Value Reference Range Interpretation Comments GLUBED (test code = GLUBED) 106 MG/DL 70-105 H BASIC METABOLIC [id number] 06:29:00 Test Item Value Reference Range Interpretation [...] mg/dL 8.5-10.5 N = CA) CBC W/AUTO [id number] 06:28:00 Test Item Value Reference Range Interpretation [...] = BA#) 0.0 x10 3/uL 0.0-0.1 N [id number] 20:02:00 Test Item Value Reference Range Interpretation Comments GLUBED (test code = GLUBED) 101 MG/DL 70-105 N [id number] 16:31:00 Test Item Value Reference Range Interpretation Comments GLUBED (test code = GLUBED) 141 MG/DL 70-105 H [id number] 11:51:00 Test Item Value Reference Range Interpretation Comments GLUBED (test code = GLUBED) 155 MG/DL 70-105 H [id number] 06:28:00 Test Item Value Reference Range Interpretation Comments GLUBED (test code = GLUBED) 138 MG/DL 70-105 H CBC W/AUTO [id number] 06:20:00 Test Item Value Reference Range Interpretation [...] 0.0 x10 3/uL 0.0-0.1 N BASIC METABOLIC [id number] 06:11:00 Test Item Value Reference Range Interpretation [...] code 8.8 mg/dL 8.5-10.5 N = CA) [id number] 20:18:00 Test Item Value Reference Range Interpretation Comments GLUBED (test code = GLUBED) 156 MG/DL 70-105 H [id number] 16:21:00 Test Item Value Reference Range Interpretation Comments GLUBED (test code = GLUBED) 120 MG/DL 70-105 H [id number] 11:13:00 Test Item Value Reference Range Interpretation Comments GLUBED (test code = GLUBED) 151 MG/DL 70-105 H BASIC METABOLIC [id number] 07:25:00 Test Item Value Reference Range Interpretation [...] mg/dL 8.5-10.5 N = CA) CBC W/AUTO [id number] 07:09:00 Test Item Value Reference Range Interpretation [...] = BA#) 0.0 x10 3/uL 0.0-0.1 N [id number] 06:45:00 Test Item Value Reference Range Interpretation Comments GLUBED (test code = GLUBED) 139 MG/DL 70-105 H [id number] 21:24:00 Test Item Value Reference Range Interpretation Comments GLUBED (test code = GLUBED) 118 MG/DL 70-105 H [id number] 16:08:00 Test Item Value Reference Range Interpretation Comments GLUBED (test code = GLUBED) 169 MG/DL 70-105 H - XR CHEST 1 [id number] 14:06:00 [facility] [place] : 1975 Sex: FPatient Name: MIRELA VILLALOBOSNahum Horton Unit No: [id number] EXAMS: CPT: [id number] XR CHEST 1 V 73016 XR CHEST 1 VIEW HISTORY: tachycardia COMPARISON: [...] (1406) by:[email or web address] Orig Print D/T: S: 03/23/2022 (1274) BATCH NO: N/A Name: JERI VILLALOBOS [facility] Phys: OLUOL02 - Kentrell Garrison,Sally Vargas [address] [facility] : 1975 Age: 46 Sex: F [place] [address] Loc: N.0385 1 Exam Date: 03/23/2022 Status: ADM IN PH: FAX: PAGE 1 Signed [id number] 13:49:00 Test Item Value Reference Range Interpretation Comments MAGNESIUM (test code = MAG) 1.8 mg/dl 1.8-2.5 N [id number] 13:49:00 Test Item Value Reference Range Interpretation Comments TROPONIN-I (test code = TROPI) <0.020 ng/mL 0.000-0.034 N [id number] 12:08:00 Test Item Value Reference Range Interpretation Comments GLUBED (test code = GLUBED) 143 MG/DL 70-105 H [id number] 05:56:00 Test Item Value Reference Range Interpretation Comments GLUBED (test code = GLUBED) 142 MG/DL 70-105 H BASIC METABOLIC [id number] 05:52:00 Test Item Value Reference Range Interpretation [...] mg/dL 8.5-10.5 N = CA) CBC W/AUTO [id number] 05:50:00 Test Item Value Reference Range Interpretation [...] = BA#) 0.0 x10 3/uL 0.0-0.1 N [id number] 20:04:00 Test Item Value Reference Range Interpretation Comments GLUBED (test code = GLUBED) 114 MG/DL 70-105 H [id number] 16:03:00 Test Item Value Reference Range Interpretation Comments GLUBED (test code = GLUBED) 104 MG/DL 70-105 N [id number] 11:10:00 Test Item Value Reference Range Interpretation Comments GLUBED (test code = GLUBED) 129 MG/DL 70-105 H CBC W/AUTO [id number] 07:01:00 Test Item Value Reference Range Interpretation [...] = BA#) 0.0 x10 3/uL 0.0-0.1 N [id number] 06:53:00 Test Item Value Reference Range Interpretation Comments GLUBED (test code = GLUBED) 104 MG/DL 70-105 N BASIC METABOLIC [id number] 06:37:00 Test Item Value Reference Range Interpretation [...] code 8.5 mg/dL 8.5-10.5 N = CA) [id number] 20:39:00 Test Item Value Reference Range Interpretation Comments GLUBED (test code = GLUBED) 97 MG/DL 70-105 N [id number] 16:19:00 Test Item Value Reference Range Interpretation Comments GLUBED (test code = GLUBED) 104 MG/DL 70-105 N - CONT INJ GS/BURNS/JJ/[id number] 11:43:00 [facility] : 1975 Sex: FPatient Name: JERI VILLALOBOS Unit No: [id number] EXAMS: CPT: [id number] CONT INJ GS/BURNS/JJ/GJ 11139 EXAM: XR ABDOMEN CONTRAST INJECTION 2 VIEWS DATE: 03/21/2022 10:13 AM INDICATION: Tube study. COMPARISON: Prior study dated 03/20/2022. TECHNIQUE: Pre and postcontrast abdominal radiographs, before and after contrast injection through gastrostomy tube. FINDINGS: The initial waste and batting waste chopper radiograph demonstrates gastrostomy tube in the left [...] (1146) BATCH NO: N/A Name: JERI VILLALOBOS [facility] Phys: CAESARGR01 - Archie Sunshine MD [address] : 1975 Age: 46 Sex: F [place] [address] Loc: N.0385 1 Exam Date: 03/21/2022 Status: ADM IN PH: FAX: PAGE 1 Signed [id number] 11:36:00 Test Item Value Reference Range Interpretation Comments GLUBED (test code = GLUBED) 102 MG/DL 70-105 N BASIC METABOLIC [id number] 06:31:00 Test Item Value Reference Range Interpretation [...] code 8.6 mg/dL 8.5-10.5 N = CA) [id number] 06:29:00 Test Item Value Reference Range Interpretation Comments GLUBED (test code = GLUBED) 83 MG/DL 70-105 N CBC W/AUTO [id number] 06:02:00 Test Item Value Reference Range Interpretation [...] = BA#) 0.0 x10 3/uL 0.0-0.1 N [id number] 04:02:00 Test Item Value Reference Range Interpretation Comments GLUBED (test code = GLUBED) 88 MG/DL 70-105 N [id number] 21:27:00 Test Item Value Reference Range Interpretation Comments GLUBED (test code = GLUBED) 86 MG/DL 70-105 N [id number] 17:12:00 Test Item Value Reference Range Interpretation Comments GLUBED (test code = GLUBED) 80 MG/DL 70-105 N - CONT INJ GS/BURNS/JJ/[id number] 14:19:00 [facility] : 1975 Sex: FPatient Name: JERI VILLALOBOS Unit No: [id number] EXAMS: CPT: [id number] CONT INJ GS/BURNS/JJ/GJ 45827 EXAM: XR ABDOMEN 1 VIEW DATE: 03/20/2022 12:22 PM INDICATION: NG tube ADDITIONAL INFORMATION: None. COMPARISON: Abdominal radiograph on 03/11/2022. TECHNIQUE: Limited AP view of the abdomen for tube placementassessment. Contrast instilled through the PEG tube during [...] (Gy m2): Air Kerma (mGy): TrscrDt/Tm: 03/20/2022 (9677) by:[email or web address] Orig Print D/T: S: 03/20/2022 (6424) BATCH NO: N/A Name: JERI VILLALOBOS [facility] Phys: Archie Rider MD [address] : 1975 Age: 46Sex: F [place] [id number] Loc: N.0385 1 Exam Date: 03/20/2022 Status: ADM INPH: FAX: PAGE 1 Signed [id number] 11:21:00 Test Item Value Reference Range Interpretation Comments GLUBED (test code = GLUBED) 100 MG/DL 70-105 N BASIC METABOLIC [id number] 09:13:00 Test Item Value Reference Range Interpretation [...] code 8.8 mg/dL 8.5-10.5 N = CA) [id number] 09:13:00 Test Item Value Reference Range Interpretation Comments PHOSPHOROUS (test code = PHOS) 3.5 mg/dl 2.5-4.6 N [id number] 09:13:00 Test Item Value Reference Range Interpretation Comments MAGNESIUM (test code = MAG) 2.1 mg/dl 1.8-2.5 N CBC W/AUTO [id number] 08:42:00 Test Item Value Reference Range Interpretation [...] = BA#) 0.0 x10 3/uL 0.0-0.1 N [id number] 06:38:00 Test Item Value Reference Range Interpretation Comments GLUBED (test code = GLUBED) 115 MG/DL 70-105 H [id number] 21:09:00 Test Item Value Reference Range Interpretation Comments GLUBED (test code = GLUBED) 115 MG/DL 70-105 H UR SODIUM [id number] 17:49:00 Test Item Value Reference Range Interpretation Comments UR SODIUM RANDOM 43 mmol/L No Normal R julia (test code = MACKENZIE) establishe d. UR CHLORIDE [id number] 17:49:00 Test Item Value Reference Range Interpretation Comments UR CHLORIDE RANDOM (test code = 22 mmol/L 15-300 N CLU) UR CREATININE [id number] 17:49:00 Test Item Value Reference Range Interpretation Comments UR CREATININE RANDOM (test code = 135 mg/dL 40-300 N CREATU) URINALYSIS [id number] 17:48:00 Test Item Value Reference Range Interpretation [...] NONE SEEN /HPF NONE SEEN = YEASTU) [id number] 16:41:00 Test Item Value Reference Range Interpretation Comments GLUBED (test code = GLUBED) 87 MG/DL 70-105 N - CT CHEST W/O [id number] 15:49:00 [facility] : 1975 Sex: FPatient Name: JERI VILLALOBOS Unit No: [id number] EXAMS: CPT: [id number] CT CHEST W/O CONTRAST 51312 TECHNIQUE: CT scan of the chest performed from the thoracic inlet through the upper abdomen without the administration of IV contrast. DLP: 409 mGy/cm. The study was performed with radiation dose optimization per ACR practice guidelines and site administrator's recommendations which includes: automated exposure control, adjustment [...] CTDI: 11.16 DLP: 408.91 Trscr Dt/Tm: 03/19/2022 (1549) by:Lyly Orig Print D/T: S: 03/19/2022 (155) BATCH NO: N/A Name: FABIJERI [facility] Phys: Ruiz Foster MD [address] [facility] : 1975 Age: 46 Sex: F [place], [place] [address] Acct No: B [id number] Loc: N.0385 1 Exam Date: 03/19/2022 Status: ADM IN PH: FAX: PAGE 1 Signed [id number] 11:40:00 Test Item Value Reference Range Interpretation Comments GLUBED (test code = GLUBED) 138 MG/DL 70-105 H [id number] 05:46:00 Test Item Value Reference Range Interpretation Comments GLUBED (test code = GLUBED) 112 MG/DL 70-105 H BASIC METABOLIC [id number] 05:04:00 Test Item Value Reference Range Interpretation [...] mg/dL 8.5-10.5 N = CA) CBC W/AUTO [id number] 04:55:00 Test Item Value Reference Range Interpretation [...] = BA#) 0.0 x10 3/uL 0.0-0.1 N [id number] 20:55:00 Test Item Value Reference Range Interpretation Comments GLUBED (test code = GLUBED) 102 MG/DL 70-105 N [id number] 16:05:00 Test Item Value Reference Range Interpretation Comments GLUBED (test code = GLUBED) 95 MG/DL 70-105 N BASIC METABOLIC [id number] 07:53:00 Test Item Value Reference Range Interpretation [...] mg/dL 8.5-10.5 N = CA) CBC W/AUTO [id number] 07:36:00 Test Item Value Reference Range Interpretation [...] BA#) 0.0 x10 3/uL 0.0-0.1 N DIFFERENTIAL [id number] 07:36:00 Test Item Value Reference Range Interpretation Comments PLATELET MORPHOLOGY (test code = Normal NORMAL PLTMORPH) [id number] 06:50:00 Test Item Value Reference Range Interpretation Comments GLUBED (test code = GLUBED) 114 MG/DL 70-105 H [id number] 00:10:00 Test Item Value Reference Range Interpretation Comments GLUBED (test code = GLUBED) 117 MG/DL 70-105 H BASIC METABOLIC [id number] 13:11:00 Test Item Value Reference Range Interpretation [...] mg/dL 8.5-10.5 N = CA) CBC W/AUTO [id number] 13:02:00 Test Item Value Reference Range Interpretation [...] = BA#) 0.1 x10 3/uL 0.0-0.1 N [id number] 05:54:00 Test Item Value Reference Range Interpretation Comments GLUBED (test code = GLUBED) 130 MG/DL 70-105 H [id number] 01:01:00 Test Item Value Reference Range Interpretation Comments GLUBED (test code = GLUBED) 135 MG/DL 70-105 H [id number] 18:22:00 Test Item Value Reference Range Interpretation Comments GLUBED (test code = GLUBED) 121 MG/DL 70-105 H [id number] 12:16:00 Test Item Value Reference Range Interpretation Comments GLUBED (test code = GLUBED) 118 MG/DL 70-105 H [id number] 06:15:00 Test Item Value Reference Range Interpretation Comments GLUBED (test code = GLUBED) 117 MG/DL 70-105 H [id number] 20:47:00 Test Item Value Reference Range Interpretation Comments GLUBED (test code = GLUBED) 107 MG/DL 70-105 H [id number] 15:49:00 Test Item Value Reference Range Interpretation Comments GLUBED (test code = GLUBED) 118 MG/DL 70-105 H [id number] 13:23:00 Test Item Value Reference Range Interpretation Comments GLUBED (test code = GLUBED) 135 MG/DL 70-105 H [id number] 08:39:00 Test Item Value Reference Range Interpretation Comments GLUBED (test code = GLUBED) 120 MG/DL 70-105 H BASIC METABOLIC [id number] 07:52:00 Test Item Value Reference Range Interpretation [...] mg/dL 8.5-10.5 N = CA) CBC W/AUTO [id number] 07:37:00 Test Item Value Reference Range Interpretation [...] = BA#) 0.1 x10 3/uL 0.0-0.1 N [id number] 06:16:00 Test Item Value Reference Range Interpretation Comments GLUBED (test code = GLUBED) 128 MG/DL 70-105 H [id number] 20:22:00 Test Item Value Reference Range Interpretation Comments GLUBED (test code = GLUBED) 120 MG/DL 70-105 H [id number] 14:13:00 Test Item Value Reference Range Interpretation Comments GLUBED (test code = GLUBED) 136 MG/DL 70-105 H BASIC METABOLIC [id number] 09:20:00 Test Item Value Reference Range Interpretation [...] mg/dL 8.5-10.5 N = CA) CBC W/AUTO [id number] 08:59:00 Test Item Value Reference Range Interpretation [...] = BA#) 0.0 x10 3/uL 0.0-0.1 N [id number] 05:46:00 Test Item Value Reference Range Interpretation Comments GLUBED (test code = GLUBED) 149 MG/DL 70-105 H [id number] 20:39:00 Test Item Value Reference Range Interpretation Comments GLUBED (test code = GLUBED) 115 MG/DL 70-105 H [id number] 17:26:00 Test Item Value Reference Range Interpretation Comments GLUBED (test code = GLUBED) 125 MG/DL 70-105 H BASIC METABOLIC [id number] 12:37:00 Test Item Value Reference Range Interpretation [...] mg/dL 8.5-10.5 N = CA) CBC W/AUTO [id number] 12:25:00 Test Item Value Reference Range Interpretation [...] 0.0 x10 3/uL 0.0-0.1 N Spec Comments: PONY EDGER [id number] 12:16:00 Test Item Value Reference Range Interpretation Comments GLUBED (test code = GLUBED) 120 MG/DL 70-105 H LACTIC [id number] 11:58:00 Test Item Value Reference Range Interpretation Comments LACTIC ACID (test code = LACT) 1.5 mmol/L 0.5-2.0 N [id number] 06:32:00 Test Item Value Reference Range Interpretation Comments GLUBED (test code = GLUBED) 142 MG/DL 70-105 H [id number] 04:46:00 Test Item Value Reference Range Interpretation Comments GLUBED (test code = GLUBED) 133 MG/DL 70-105 H [id number] 21:12:00 Test Item Value Reference Range Interpretation Comments GLUBED (test code = GLUBED) 143 MG/DL 70-105 H [id number] 16:54:00 Test Item Value Reference Range Interpretation Comments GLUBED (test code = GLUBED) 118 MG/DL 70-105 H [id number] 12:48:00 Test Item Value Reference Range Interpretation Comments GLUBED (test code = GLUBED) 137 MG/DL 70-105 H - XR CHEST 1 [id number] 07:19:00 [facility] 1975 Sex: FPatient Name: JERI VILLALOBOS Unit No: [id number] EXAMS: CPT: [id number] XR CHEST 1 V 71977 Comparison study: 03/09/2022 History: fu pneumonia CHEST [...] (718) by:[email or web address] Orig Print D/T: S: 03/12/2022 (07) BATCH NO: N/A Name: FABIJERI N [facility] Phys: Ruiz Wolfe MD [address] [facility] : 1975 Age: 46 Sex: F [place] [address] Loc: N.0385 1 Exam Date: 03/12/2022 Status: ADM IN PH: FAX: PAGE 1 Signed ReportCBC W/AUTO [id number] 07:06:00 Test Item Value Reference Range Interpretation [...] (test code = ADEQUATE ADEQUATE PLTEST) DIFFERENTIAL [id number] 07:06:00 Test Item Value Reference Range Interpretation Comments PLATELET MORPHOLOGY (test code = Normal NORMAL PLTMORPH) BASIC METABOLIC [id number] 06:45:00 Test Item Value Reference Range Interpretation [...] code 9.9 mg/dL 8.5-10.5 N = CA) [id number] 06:45:00 Test Item Value Reference Range Interpretation Comments MAGNESIUM (test code = MAG) 2.4 mg/dl 1.8-2.5 N [id number] 06:32:00 Test Item Value Reference Range Interpretation Comments GLUBED (test code = GLUBED) 125 MG/DL 70-105 H [id number] 21:02:00 Test Item Value Reference Range Interpretation Comments GLUBED (test code = GLUBED) 125 MG/DL 70-105 H [id number] 17:37:00 Test Item Value Reference Range Interpretation Comments GLUBED (test code = GLUBED) 119 MG/DL 70-105 H - XR ABDOMEN [id number] 12:22:00 [facility] : 1975 Sex: FPatient Name: JERI VILLALOBOS Unit No: [id number] EXAMS: CPT: [id number] XR ABDOMEN 1V 58407 ABDOMEN RADIOGRAPH, 1 VIEW: Supine. HISTORY: DISLODGED [...] m2): Air Kerma (mGy): Trscr Dt/Tm: 03/11/2022 (122) by:[email or web address] Orig Print D/T: S: 03/11/2022 (122) BATCH NO:N/A Name: JERI VILLALOBOS [facility] Phys: YOLANDA - Annette,Brittney Tinsley DO [address] [facility] : 1975 Age: 46 Sex: F [place] [address] Loc: N.0385 1 Exam Date: 03/11/2022 Status: ADM IN PH: FAX: PAGE 1 Signed [id number] 12:21:00 Test Item Value Reference Range Interpretation Comments GLUBED (test code = GLUBED) 124 MG/DL 70-105 H [id number] 04:22:00 Test Item Value Reference Range Interpretation Comments GLUBED (test code = GLUBED) 109 MG/DL 70-105 H [id number] 22:04:00 Test Item Value Reference Range Interpretation Comments GLUBED (test code = GLUBED) 117 MG/DL 70-105 H [id number] 15:19:00 Test Item Value Reference Range Interpretation Comments GLUBED (test code = GLUBED) 126 MG/DL 70-105 H [id number] 10:52:00 Test Item Value Reference Range Interpretation Comments GLUBED (test code = GLUBED) 141 MG/DL 70-105 H [id number] 05:53:00 Test Item Value Reference Range Interpretation Comments GLUBED (test code = GLUBED) 151 MG/DL 70-105 H [id number] 21:42:00 Test Item Value Reference Range Interpretation Comments GLUBED (test code = GLUBED) 131 MG/DL 70-105 H [id number] 15:26:00 Test Item Value Reference Range Interpretation Comments GLUBED (test code = GLUBED) 136 MG/DL 70-105 H [id number] 11:43:00 Test Item Value Reference Range Interpretation Comments GLUBED (test code = GLUBED) 137 MG/DL 70-105 H - XR CHEST 1 [id number] 07:21:00 [facility] MIRELA VILLALOBOSNahum Horton : 1975 Sex: FPatient Name: MIRELA VILLALOBOSNahum Horton Unit No: [id number] EXAMS: CPT: [id number] XR CHEST 1 V 66182 CHEST 1 VIEW: COMPARISON: 03/04/2022 CLINICAL HISTORY: [...] Ruiz Vaughn MD; Manuel Rose DO Technologist: iVrgilio Deleon Time: DAP (Gy m2): Air Kerma (mGy): Trscr Dt/Tm: 03/09/2022 (07) by:Lyly Orig Print D/T:S: 03/09/2022 (0724) BATCH NO: N/A Name: FABIJERI Horton [facility] Phys: Ruiz Wolfe MD [address] : 1975 Age: 46 Sex: F [place], [place] [address] Loc: N.0385 1 Exam Date: 03/09/2022 Status: ADM IN PH: FAX: PAGE 1 Signed [id number] 06:09:00 Test Item Value Reference Range Interpretation Comments GLUBED (test code = GLUBED) 160 MG/DL 70-105 H [id number] 20:33:00 Test Item Value Reference Range Interpretation Comments GLUBED (test code = GLUBED) 115 MG/DL 70-105 H [id number] 15:34:00 Test Item Value Reference Range Interpretation Comments GLUBED (test code = GLUBED) 99 MG/DL 70-105 N [id number] 12:13:00 Test Item Value Reference Range Interpretation Comments GLUBED (test code = GLUBED) 112 MG/DL 70-105 H CBC W/AUTO [id number] 06:41:00 Test Item Value Reference Range Interpretation [...] 0.1 x10 3/uL 0.0-0.1 N BASIC METABOLIC [id number] 06:23:00 Test Item Value Reference Range Interpretation [...] code 9.4 mg/dL 8.5-10.5 N = CA) [id number] 06:16:00 Test Item Value Reference Range Interpretation Comments GLUBED (test code = GLUBED) 114 MG/DL 70-105 H [id number] 20:48:00 Test Item Value Reference Range Interpretation Comments GLUBED (test code = GLUBED) 119 MG/DL 70-105 H [id number] 16:26:00 Test Item Value Reference Range Interpretation Comments GLUBED (test code = GLUBED) 132 MG/DL 70-105 H [id number] 13:48:00 Test Item Value Reference Range Interpretation Comments GLUBED (test code = GLUBED) 126 MG/DL 70-105 H CBC W/AUTO [id number] 10:41:00 Test Item Value Reference Range Interpretation [...] BA#) 0.0 x10 3/uL 0.0-0.1 N DIFFERENTIAL [id number] 10:41:00 Test Item Value Reference Range Interpretation Comments PLATELET MORPHOLOGY (test code = Normal NORMAL PLTMORPH) BASIC METABOLIC [id number] 07:30:00 Test Item Value Reference Range Interpretation [...] code 8.7 mg/dL 8.5-10.5 N = CA) [id number] 05:19:00 Test Item Value Reference Range Interpretation Comments GLUBED (test code = GLUBED) 109 MG/DL 70-105 H [id number] 17:24:00 Test Item Value Reference Range Interpretation Comments GLUBED (test code = GLUBED) 118 MG/DL 70-105 H BASIC METABOLIC [id number] 09:47:00 Test Item Value Reference Range Interpretation [...] mg/dL 8.5-10.5 N = CA) CBC W/AUTO [id number] 09:00:00 Test Item Value Reference Range Interpretation [...] = BA#) 0.1 x10 3/uL 0.0-0.1 N [id number] 06:10:00 Test Item Value Reference Range Interpretation Comments GLUBED (test code = GLUBED) 118 MG/DL 70-105 H [id number] 01:06:00 Test Item Value Reference Range Interpretation Comments GLUBED (test code = GLUBED) 110 MG/DL 70-105 H [id number] 15:52:00 Test Item Value Reference Range Interpretation Comments GLUBED (test code = GLUBED) 121 MG/DL 70-105 H [id number] 11:55:00 Test Item Value Reference Range Interpretation Comments GLUBED (test code = GLUBED) 131 MG/DL 70-105 H [id number] 06:06:00 Test Item Value Reference Range Interpretation Comments GLUBED (test code = GLUBED) 119 MG/DL 70-105 H CBC W/AUTO [id number] 05:35:00 Test Item Value Reference Range Interpretation [...] 0.0 x10 3/uL 0.0-0.1 N BASIC METABOLIC [id number] 05:20:00 Test Item Value Reference Range Interpretation [...] code 8.5 mg/dL 8.5-10.5 N = CA) [id number] 20:55:00 Test Item Value Reference Range Interpretation Comments GLUBED (test code = GLUBED) 100 MG/DL 70-105 N [id number] 16:42:00 Test Item Value Reference Range Interpretation Comments GLUBED (test code = GLUBED) 117 MG/DL 70-105 H [id number] 11:49:00 Test Item Value Reference Range Interpretation Comments GLUBED (test code = GLUBED) 140 MG/DL 70-105 H - XR CHEST 1 [id number] 08:08:00 [facility] : 1975 Sex: FPatient Name: JERI VILLALOBOS Unit No: [id number] EXAMS: CPT: [id number] XR CHEST 1 V 45786 COMPARISON: 03/01/2022 FINDINGS: Atelectasis or pneumonia has developed at the right base. Left lower lobe pneumoniaappears unchanged. Heart size magnified by portable technique, without vascular congestion. Bony thorax appears unremarkable. No significant right costophrenic angle blunting. Mild left costophrenic angle blunting. CONCLUSION: Development of right lower lobe atelectasis or pneumonia. Persistent left lower lobe pneumonia. at 0808 Reportedand signed by: Ward Hawkins MD CC: Ruiz Vaughn MD; Manuel Nesbittqi Technologist: Oly Villagomez Time: DAP (Gy m2): Air Kerma (mGy): Trscr Dt/Tm: 03/04/2022 (807) by:[email or web address] Orig Print D/T: S: 03/04/2022 (810) BATCH NO: N/A Name: JERI VILLALOBOS [facility] Phys: Ruiz Wolfe MD [address] [facility] : 1975 Age: 46 Sex: F [place] [address] Loc: N.0385 1 Exam Date: 03/04/2022 Status: ADM IN PH: FAX: PAGE 1 Signed [id number] 05:53:00 Test Item Value Reference Range Interpretation Comments GLUBED (test code = GLUBED) 89 MG/DL 70-105 N [id number] 20:59:00 Test Item Value Reference Range Interpretation Comments GLUBED (test code = GLUBED) 131 MG/DL 70-105 H [id number] 15:42:00 Test Item Value Reference Range Interpretation Comments GLUBED (test code = GLUBED) 112 MG/DL 70-105 H [id number] 12:47:00 Test Item Value Reference Range Interpretation Comments GLUBED (test code = GLUBED) 128 MG/DL 70-105 H BASIC METABOLIC [id number] 08:10:00 Test Item Value Reference Range Interpretation [...] mg/dL 8.5-10.5 N = CA) CBC W/AUTO [id number] 08:09:00 Test Item Value Reference Range Interpretation [...] = BA#) 0.0 x10 3/uL 0.0-0.1 N [id number] 06:19:00 Test Item Value Reference Range Interpretation Comments GLUBED (test code = GLUBED) 111 MG/DL 70-105 H [id number] 20:56:00 Test Item Value Reference Range Interpretation Comments GLUBED (test code = GLUBED) 138 MG/DL 70-105 H [id number] 15:58:00 Test Item Value Reference Range Interpretation Comments GLUBED (test code = GLUBED) 137 MG/DL 70-105 H [id number] 12:19:00 Test Item Value Reference Range Interpretation Comments GLUBED (test code = GLUBED) 149 MG/DL 70-105 H [id number] 05:55:00 Test Item Value Reference Range Interpretation Comments GLUBED (test code = GLUBED) 114 MG/DL 70-105 H [id number] 21:40:00 Test Item Value Reference Range Interpretation Comments GLUBED (test code = GLUBED) 101 MG/DL 70-105 N [id number] 16:13:00 Test Item Value Reference Range Interpretation Comments GLUBED (test code = GLUBED) 126 MG/DL 70-105 H [id number] 11:40:00 Test Item Value Reference Range Interpretation Comments GLUBED (test code = GLUBED) 114 MG/DL 70-105 H - XR CHEST 1 [id number] 08:41:00 [facility] : 1975 Sex: FPatient Name: JERI VILLALOBOS Unit No: [id number] EXAMS: CPT: [id number] XR CHEST 1 V 23893 EXAM: XR CHEST 1 VIEW DATE: 03/01/2022 [...] abnormality. IMPRESSION: Left lower lobe infiltrates increased from prior chest radiograph on 02/22/2022. Of note comparison of the extent of pneumonia from the prior CT on 02/25/2022 is difficult due to differences in imaging technique. at 0841 Reported and signed by: Yung Abel MD CC: Ruiz Vaughn MD; Manuel Rose DO Technologist: Logan Deleon Time: DAP (Gy m2): Air Kerma (mGy): Trscr Dt/Tm: 03/01/2022 (0841) by:[email or web address] Orig Print D/T: S: 03/01/2022 (0844) BATCH NO: N/A Name: MARGARET VILLALOBOS [facility] Phys: Ruiz Wolfe MD [address] [facility] : 1975 Age: 46 Sex: F [place], [place] [address] Loc: N.0385 1 Exam Date: 03/01/2022 Status: ADM IN PH: FAX: PAGE 1 Signed ReportBASIC METABOLIC [id number] 07:31:00 Test Item Value Reference Range Interpretation [...] mg/dL 8.5-10.5 N = CA) CBC W/AUTO [id number] 07:11:00 Test Item Value Reference Range Interpretation [...] = BA#) 0.0 x10 3/uL 0.0-0.1 N [id number] 06:14:00 Test Item Value Reference Range Interpretation Comments GLUBED (test code = GLUBED) 116 MG/DL 70-105 H [id number] 20:06:00 Test Item Value Reference Range Interpretation Comments GLUBED (test code = GLUBED) 103 MG/DL 70-105 N [id number] 17:02:00 Test Item Value Reference Range Interpretation Comments GLUBED (test code = GLUBED) 95 MG/DL 70-105 N [id number] 11:29:00 Test Item Value Reference Range Interpretation Comments GLUBED (test code = GLUBED) 137 MG/DL 70-105 H BASIC METABOLIC [id number] 07:06:00 Test Item Value Reference Range Interpretation [...] mg/dL 8.5-10.5 N = CA) CBC W/AUTO [id number] 06:47:00 Test Item Value Reference Range Interpretation [...] = BA#) 0.0 x10 3/uL 0.0-0.1 N [id number] 06:12:00 Test Item Value Reference Range Interpretation Comments GLUBED (test code = GLUBED) 135 MG/DL 70-105 H [id number] 00:40:00 Test Item Value Reference Range Interpretation Comments GLUBED (test code = GLUBED) 105 MG/DL 70-105 N [id number] 21:06:00 Test Item Value Reference Range Interpretation Comments GLUBED (test code = GLUBED) 103 MG/DL 70-105 N CBC W/AUTO [id number] 11:26:00 Test Item Value Reference Range Interpretation [...] = EO#) x10 3/uL 0.0-0.5 RECOLLECT CLOTTEDWBC [id number] 11:26:00 Test Item Value Reference Range Interpretation [...] NONE SEEN A POLC) RECOLLECT CLOTTEDCBC W/AUTO [id number] 08:54:00 Test Item Value Reference Range Interpretation Comments WHITE BLOOD CELL Test not 3.2-11.5 N Previously (test code = WBC) performed x10 reported result: 3/uL 10.2 x10\S\3/uLEdite d by: [id number] on 02/27/22:851~~ Corrected Repor t ~~Reason (required):CLOT TE D RED BLOOD CELL (test Test not 3.70-5.10 L Previou sly code = RBC) performed reported result : x10(6)/m 3.59 x10(6)/mEdited by: [id number] on 02/27/22:851~~ Corrected Repor t ~~Reason (required):CLOT TE D HEMOGLOBIN (test code Test not 12.0-15.0 L Previo usly = HGB) performed g/dL reported resu lt: 10.3 g/dLEdited by: [id number] on 02/27/22~~ Corrected Repor t ~~Reason (required):CLOT TE D HEMATOCRIT (test code Test not 35.7-44.8 L Previo usly = HCT) performed % reported result : 32.5 %Edited by : [id number] on 02/27/22:852~~ Corrected Repor t ~~Reason (required):CLOT TE D MEAN CELL VOLUME Test not 80-100 N Previously (test code = MCV) performed fL reported r esult: 91 fLEdited by: [id number] on 02/27/22:852~~ Corrected Repor t ~~Reason (required):CLOT TE D MEAN CELL HGB (test Test not 26.2-33.8 N Previous ly code = MCH) performed pg reported result : 28.7 pgEdited b y: [id number] on 02/27/22:0853~~ Corrected Repor t ~~Reason (required):CLOT TE D MEAN CELL HGB Test not 30.0-34.0 N Previously CONCENTRATION (test performed g/dL report ed result: code = MCHC) 31.7 g/dLEdited by: [id number] on 02/27/22:0853~~ Corrected Repor t ~~Reason (required):CLOT TE D RED CELL DISTRIBUTION Test not 11.3-14.5 WIDTH (test code = performed % RDW) PLATELET COUNT (test Test not 130-408 code = PLT) performed x10 3/uL MEAN PLATELET VOLUME Test not 8.6-12.6 N Previou sly (test code = MPV) performed fL reported r esult: 11.6 fLEdited b y: [id number] on 02/27/22:0854~~ Corrected Repor t ~~Reason (required):CLOT [...] (test code = PLTEST) performed BASIC METABOLIC [id number] 08:53:00 Test Item Value Reference Range Interpretation [...] code 8.6 mg/dL 8.5-10.5 N = CA) [id number] 06:09:00 Test Item Value Reference Range Interpretation Comments GLUBED (test code = GLUBED) 127 MG/DL 70-105 H [id number] 20:53:00 Test Item Value Reference Range Interpretation Comments GLUBED (test code = GLUBED) 117 MG/DL 70-105 H [id number] 17:43:00 Test Item Value Reference Range Interpretation Comments GLUBED (test code = GLUBED) 92 MG/DL 70-105 N [id number] 12:05:00 Test Item Value Reference Range Interpretation Comments GLUBED (test code = GLUBED) 132 MG/DL 70-105 H BASIC METABOLIC [id number] 10:55:00 Test Item Value Reference Range Interpretation [...] mg/dL 8.5-10.5 L = CA) CBC W/AUTO [id number] 10:42:00 Test Item Value Reference Range Interpretation [...] = BA#) 0.1 x10 3/uL 0.0-0.1 N [id number] 06:15:00 Test Item Value Reference Range Interpretation Comments GLUBED (test code = GLUBED) 115 MG/DL 70-105 H [id number] 03:49:00 Test Item Value Reference Range Interpretation Comments CREATININE (test code = CREAT) 0.61 mg/dL 0.44-1.03 N - DUP VEIN [id number] 23:43:00 [facility] : 1975 Sex: FPatient Name: JERI VILLALOBOS Unit No: [id number] EXAMS: CPT: [id number] DUP VEIN [place] [address] BILATERAL LOWER EXTREMITY VENOUS DOPPLER AND COLOR [...] of the right and left lower extremities. certified technician: Wilman Vasquez RVT TECHNICAL NOTES: 1. Venous Doppler waveform analysis and real-time color duplex imaging of the deep veins of the right and left lower extremities were performed. Compression maneuvers were also used to evaluate vein patency. [...] and bilateral superficial veins were evaluated on thisstudy. 2. All visualized deep veins in both [...] by: LISANDRA PADRON MD Name: JERI VILLALOBOS [facility] Phys: [facility]. Manuel Rose [address] [facility] : 1975 Age: 46 Sex: F [place], [place] [address] Loc: N.0385 1 Exam Date: 02/24/2022 Status: ADM IN PH: FAX: PAGE 1 Signed Report (CONTINUED) Patient Name: FABIJERI Unit No: [id number] EXAMS: CPT: [id number] DUP VEIN [place] [address] (Continued) CC: Manuel Rose DO Technologist: Wilman Stubbs Probe:Trscr Dt/Tm: 02/25/2022 (2343) by:[email or web address] Orig Print D/T: S: 02/25/2022 (2346) BATCH NO: N/A Name:JERI VILLALOBOS [facility] Phys: SIDFA.01 - [place],Manuel Sidhu D [address] : 1975 Age: 46 Sex: F [place], [place] [address] Loc: N.0385 1 Exam Date: 02/24/2022 Status: ADM IN PH: FAX: PAGE 2 Signed [id number] 20:34:00 Test Item Value Reference Range Interpretation Comments GLUBED (test code = GLUBED) 128 MG/DL 70-105 H [id number] 16:31:00 Test Item Value Reference Range Interpretation Comments GLUBED (test code = GLUBED) 116 MG/DL 70-105 H [id number] 11:44:00 Test Item Value Reference Range Interpretation Comments GLUBED (test code = GLUBED) 113 MG/DL 70-105 H - CT CHEST W/O [id number] 11:33:00 [facility] : 1975 Sex: FPatient Name: JERI VILLALOBOS Unit No: [id number] EXAMS: CPT: [id number] CT CHEST W/O CONTRAST 28881 EXAM:CT CHEST WITHOUT CONTRAST DATE: 02/25/2022 5:26 PM INDICATION: Pneumonia, fevers ADDITIONAL INFORMATION: None. COMPARISON: Multiple chest radiographs, most recently on 02/22/2022 CTA chest on 02/09/2022 TECHNIQUE: CT imaging was performed with iterative reconstruction techniques and/or automated exposure control to reduce radiation dose. Volumetric CT of the chest is acquired without contrast. Axial, coronal and sagittal images are provided. IV contrast: None. DLP (mGy-cm): 487.09 FINDINGS: Plant Propagator: Noncontributory. Lines, tubes and hardware: A tracheostomy [...] spaces are otherwise preserved. Name: FABIJERI Horton [facility] Phys: SIDFA. - Manuel Rose [address] [facility] : 1975 Age: 46 Sex: F [place], [place] [address] Loc: N.0385 1 Exam Date: 02/25/2022 Status: ADM IN PH: FAX: PAGE 1 Signed Report (CONTINUED) Patient Name: FABIJERI Horton Unit No: [id number] EXAMS: CPT: [id number] CT CHEST W/O CONTRAST 92152 (Continued) Soft tissues: Bilateral breast implants are seen. IMPRESSION: Extensive opacities in the majority of the left lower lobe with multiple air bronchograms, consistent with pneumonia. Dependent opacities in the right lower lobe represent atelectasis and/or consolidation. at 1133 Reported and signed by: Yung Abel MD CC: Manuel Rose DO Technologist: Suni Velazquez CTDI: 12.60 DLP: 487.09 Trscr Dt/Tm: 02/25/2022 (1133) by:[email or web address] Orig Print D/T: S: 02/25/2022 (1136) BATCH NO: N/A Name: JERI VILLALOBOS [facility] Phys: SIDFA.01 - [place],Manuel A D [address] : 1975 Age: 46 Sex: F [place], [place] [address] Loc: N.0385 1Exam Date: 02/25/2022 Status: ADM IN PH: FAX: PAGE 2 Signed Report- DUP VEIN [id number] 11:14:00 [facility] : 1975 Sex: FPatient Name: JERI VILLALOBOS Unit No: [id number] EXAMS: CPT: [id number] DUP VEIN [place] [address] EXAM: US BILATERAL UPPER EXTREMITY VENOUS DOPPLER DATE: 02/25/2022 5:23 PM INDICATION: Upper extremity swelling ADDITIONAL INFORMATION: None. COMPARISON: Right upper extremity venous ultrasound on 02/14/2022 TECHNIQUE:Multiplanar grayscale, color Doppler, and spectral Doppler ultrasound [...] by: Yung Abel MD Name: JERI VILLALOBOS [facility] Phys: HETAL. [place],Manuel A D [address] [facility] : 1975 Age: 46 Sex: F [place] [address] Loc: N.0385 1 Exam Date:02/25/2022 Status: ADM IN PH: FAX: PAGE 1 Signed Report (CONTINUED) Patient Name: JERI VILLALOBOS Unit No: [id number] EXAMS: CPT: [id number] DUP VEIN [place] [address] (Continued) CC: Manuel Rose DO Technologist: Wilman Stubbs Probe: Trscr Dt/Tm: 02/25/2022 (1114) by:[email or web address] Orig Print D/T: S: 02/25/2022 (1117) BATCH NO: N/A Name: JERI VILLALOBOS [facility] Phys: diqi,Manuel A D [address] [facility] : 1975 Age: 46 Sex: F [place] [address] Loc: N.0385 1 Exam Date: 02/25/2022 Status: ADM IN PH: FAX: PAGE 2 Signed Report BASIC METABOLIC [id number] 08:25:00 Test Item Value Reference Range Interpretation [...] mg/dL 8.5-10.5 L = CA) REDRAWCBC W/AUTO [id number] 07:31:00 Test Item Value Reference Range Interpretation [...] 10.4 fL 8.6-12.6 N = MPV) WBC [id number] 07:31:00 Test Item Value Reference Range Interpretation [...] 0.00 10 3/uL 0.00-0.00 N = OCT#) [id number] 05:47:00 Test Item Value Reference Range Interpretation Comments GLUBED (test code = GLUBED) 135 MG/DL 70-105 H [id number] 20:40:00 Test Item Value Reference Range Interpretation Comments GLUBED (test code = GLUBED) 121 MG/DL 70-105 H [id number] 17:03:00 Test Item Value Reference Range Interpretation Comments GLUBED (test code = GLUBED) 113 MG/DL 70-105 H VANCOMYCIN [id number] 13:43:00 Test Item Value Reference Range Interpretation Comments VANCOMYCIN TROUGH 15.9 ug/ml 10.0-20.0 N Please ref er to (test code = VANCT) Medicati on Administration Record (MAR) forlast d ose date and time. [id number] 11:50:00 Test Item Value Reference Range Interpretation Comments GLUBED (test code = GLUBED) 139 MG/DL 70-105 H BASIC METABOLIC [id number] 07:47:00 Test Item Value Reference Range Interpretation [...] mg/dL 8.5-10.5 L = CA) CBC W/AUTO [id number] 07:37:00 Test Item Value Reference Range Interpretation [...] = BA#) 0.1 x10 3/uL 0.0-0.1 N [id number] 06:21:00 Test Item Value Reference Range Interpretation Comments GLUBED (test code = GLUBED) 141 MG/DL 70-105 H [id number] 21:37:00 Test Item Value Reference Range Interpretation Comments GLUBED (test code = GLUBED) 135 MG/DL 70-105 H [id number] 17:38:00 Test Item Value Reference Range Interpretation Comments GLUBED (test code = GLUBED) 144 MG/DL 70-105 H [id number] 11:57:00 Test Item Value Reference Range Interpretation Comments GLUBED (test code = GLUBED) 141 MG/DL 70-105 H VANCOMYCIN [id number] 07:35:00 Test Item Value Reference Range Interpretation Comments VANCOMYCIN TROUGH 10.8 ug/ml 10.0-20.0 N Please ref er to (test code = VANCT) Medicati on Administration Record (MAR) forlast d ose date and time. [id number] 06:05:00 Test Item Value Reference Range Interpretation Comments GLUBED (test code = GLUBED) 139 MG/DL 70-105 H CBC W/AUTO [id number] 05:22:00 Test Item Value Reference Range Interpretation [...] 0.1 x10 3/uL 0.0-0.1 N BASIC METABOLIC [id number] 05:11:00 Test Item Value Reference Range Interpretation [...] code 8.5 mg/dL 8.5-10.5 N = CA) [id number] 21:02:00 Test Item Value Reference Range Interpretation Comments GLUBED (test code = GLUBED) 164 MG/DL 70-105 H LACTIC [id number] 18:08:00 Test Item Value Reference Range Interpretation Comments LACTIC ACID (test code = LACT) 1.2 mmol/L 0.5-2.0 N - XR CHEST 1 [id number] 14:36:00 [facility] 1975 Sex: FPatient Name: JERI VILLALOBOS Unit No: [id number] EXAMS: CPT: [id number] XR CHEST 1 V 98120 EXAM: XR CHEST1 VIEW DATE: 02/22/2022 1:39 PM INDICATION: Sepsis COMPARISON: Chest radiograph on 02/21/2022. TECHNIQUE: AP chest. FINDINGS: Lines, tubes and hardware: A tracheostomy tube is identified with tip overlying the thoracic trachea. Lungs and pleura: No significant change in the left lower lobe atelectasis and/or infiltrates. The lungs are otherwise clear. Vasculature is normal. The costophrenic sulci are sharp without effusion. No pneumothorax is identified. Heart [...] (1436) by:[email or web address] Orig Print D/T: S: 02/22/2022 (143) BATCH NO: N/A Name: JERI VILLALOBOS [facility] Phys: SIDFA. - Manuel Rose [address] [facility] : 1975 Age: 46 Sex: F [place], [place] [address] Loc: N.0353 1 Exam Date: 02/22/2022 S tatus: ADM IN PH: FAX: PAGE 1 Signed ReportUA RFLX MICR CULT IF INDICATED 2022-02-22 13:49:00 Test Item Value Reference Range Interpretation [...] culture: Temperature > 100.4 FSpecimen Description: CATHETERIZED (STRAIGHT)[id number] 11:40:00 Test Item Value Reference Range Interpretation Comments GLUBED (test code = GLUBED) 168 MG/DL 70-105 H BASIC METABOLIC [id number] 06:49:00 Test Item Value Reference Range Interpretation [...] code 9.5 mg/dL 8.5-10.5 N = CA) [id number] 06:49:00 Test Item Value Reference Range Interpretation Comments MAGNESIUM (test code = MAG) 2.4 mg/dl 1.8-2.5 N CBC W/AUTO [id number] 06:34:00 Test Item Value Reference Range Interpretation [...] = BA#) 0.1 x10 3/uL 0.0-0.1 N [id number] 05:45:00 Test Item Value Reference Range Interpretation Comments GLUBED (test code = GLUBED) 172 MG/DL 70-105 H [id number] 19:41:00 Test Item Value Reference Range Interpretation Comments GLUBED (test code = GLUBED) 138 MG/DL 70-105 H [id number] 15:35:00 Test Item Value Reference Range Interpretation Comments GLUBED (test code = GLUBED) 155 MG/DL 70-105 H [id number] 12:37:00 Test Item Value Reference Range Interpretation Comments GLUBED (test code = GLUBED) 157 MG/DL 70-105 H - XR CHEST 1 [id number] 09:18:00 [facility] Clifford : 1975 Sex: FPatient Name: JERI VILLALOBOS Clifford Unit No: [id number] EXAMS: CPT: [id number] XR CHEST 1 V 52243 EXAM: XR CHEST 1 VIEW DATE: 02/21/2022 [...] otherwise clear. at 0918 Reported and signed by: Yung Abel MD CC: Manuel Rose DO Technologist: Logan Deleon Time: DAP (Gy m2): Air Kerma (mGy): Trscr Dt/Tm: 02/21/2022 (0918) by:[email or web address] Orig Print D/T: S: 02/21/2022 (09) BATCH NO: N/A Name: JERI VILLALOBOS [facility] Phys: SIDFA. - Manuel Rose [address] [facility] : 1975 Age: 46 Sex: F [place] [address] Loc: N.0353 1 Exam Date: 02/21/2022tatus: ADM IN PH: FAX: PAGE 1 Signed ReportCBC W/AUTO [id number] 07:45:00 Test Item Value Reference Range Interpretation [...] 0.1 x10 3/uL 0.0-0.1 N BASIC METABOLIC [id number] 07:22:00 Test Item Value Reference Range Interpretation [...] code 9.1 mg/dL 8.5-10.5 N = CA) [id number] 07:09:00 Test Item Value Reference Range Interpretation Comments GLUBED (test code = GLUBED) 160 MG/DL 70-105 H [id number] 20:59:00 Test Item Value Reference Range Interpretation Comments GLUBED (test code = GLUBED) 122 MG/DL 70-105 H BASIC METABOLIC [id number] 16:30:00 Test Item Value Reference Range Interpretation [...] mg/dL 8.5-10.5 N = CA) CBC W/AUTO [id number] 16:02:00 Test Item Value Reference Range Interpretation [...] = BA#) 0.1 x10 3/uL 0.0-0.1 N [id number] 15:05:00 Test Item Value Reference Range Interpretation Comments GLUBED (test code = GLUBED) 142 MG/DL 70-105 H [id number] 10:44:00 Test Item Value Reference Range Interpretation Comments GLUBED (test code = GLUBED) 150 MG/DL 70-105 H [id number] 06:45:00 Test Item Value Reference Range Interpretation Comments GLUBED (test code = GLUBED) 153 MG/DL 70-105 H [id number] 21:00:00 Test Item Value Reference Range Interpretation Comments GLUBED (test code = GLUBED) 135 MG/DL 70-105 H [id number] 12:11:00 Test Item Value Reference Range Interpretation Comments GLUBED (test code = GLUBED) 127 MG/DL 70-105 H - XR CHEST 1 [id number] 07:51:00 [facility] : 1975 Sex: FPatient Name: JERI VILLALOBOS Unit No: [id number] EXAMS: CPT: [id number] XR CHEST 1 V 34813 Comparison study: 02/15/2022 History: Respiratory failure CHEST [...] Trscr Dt/Tm: 02/19/2022 (0751) by:[email or web address] Orig Print D/T:S: 02/19/2022 (0754) BATCH NO: N/A Name: JERI VILLALOBOS [facility] Phys: SERGEY BronsonShun NP[address] : 1975 Age: 46 Sex: F [place], [place] [address] Loc: N.1 1 Exam Date: 02/19/2022 Status: ADM IN PH: FAX: PAGE 1 Signed Report [id number] 06:40:00 Test Item Value Reference Range Interpretation Comments GLUBED (test code = GLUBED) 152 MG/DL 70-105 H BASIC METABOLIC [id number] 04:44:00 Test Item Value Reference Range Interpretation [...] code 9.5 mg/dL 8.5-10.5 N = CA) [id number] 04:44:00 Test Item Value Reference Range Interpretation Comments PHOSPHOROUS (test code = PHOS) 5.5 mg/dl 2.5-4.6 H [id number] 04:44:00 Test Item Value Reference Range Interpretation Comments MAGNESIUM (test code = MAG) 2.3 mg/dl 1.8-2.5 N CBC W/AUTO [id number] 04:30:00 Test Item Value Reference Range Interpretation [...] = BA#) 0.1 x10 3/uL 0.0-0.1 N [id number] 00:35:00 Test Item Value Reference Range Interpretation Comments GLUBED (test code = GLUBED) 136 MG/DL 70-105 H [id number] 16:43:00 Test Item Value Reference Range Interpretation Comments GLUBED (test code = GLUBED) 140 MG/DL 70-105 H [id number] 07:44:00 Test Item Value Reference Range Interpretation Comments GLUBED (test code = GLUBED) 152 MG/DL 70-105 H [id number] 07:44:00 Test Item Value Reference Range Interpretation Comments GLUBED (test code = GLUBED) 97 MG/DL 70-105 N [id number] 06:24:00 Test Item Value Reference Range Interpretation Comments GLUBED (test code = GLUBED) 142 MG/DL 70-105 H CBC W/AUTO [id number] 06:08:00 Test Item Value Reference Range Interpretation [...] 0.1 x10 3/uL 0.0-0.1 N BASIC METABOLIC [id number] 04:29:00 Test Item Value Reference Range Interpretation [...] code 10.0 mg/dL 8.5-10.5 N = CA) [id number] 04:29:00 Test Item Value Reference Range Interpretation Comments PHOSPHOROUS (test code = PHOS) 5.0 mg/dl 2.5-4.6 H [id number] 04:29:00 Test Item Value Reference Range Interpretation Comments MAGNESIUM (test code = MAG) 2.3 mg/dl 1.8-2.5 N [id number] 00:48:00 Test Item Value Reference Range Interpretation Comments GLUBED (test code = GLUBED) 103 MG/DL 70-105 N [id number] 16:28:00 Test Item Value Reference Range Interpretation Comments GLUBED (test code = GLUBED) 96 MG/DL 70-105 N - DUP EXTRACRANIAL [id number] 09:49:00 [facility] : 1975 Sex: FPatient Name: JERI VILLALOBOS Unit No: [id number] EXAMS: CPT: [id number] DUP EXTRACRANIAL [place] 15508 BILATERAL CAROTID ARTERY ULTRASOUND DUPLEX SCAN AND [...] Spectral Analysis is normal bilaterally HISTORY AND IN DICATIONS FOR STUDY: This study is performed to [...] VICA / VCCA ratio is 0.8. Name: FABIJERI Horton [facility] [place] Phys: Tiburcio Angel MD [address] [facility] : 1975 Age: 46 Sex: F [place] [address] Loc: N.2050 1 Exam Date: 02/16/2022 Status: ADM IN PH: FAX: PAGE 1 Signed Report (CONTINUED) Patient Name: JERI VILLALOBOS Unit No: [id number] EXAMS: CPT: [id number] DUP EXTRACRANIAL [place] 82372 (Continued) VERTEBRAL ARTERY FLOW Normal antegrade vertebral artery flow bilaterally. at 0949 Reported and signed by: LISANDRA PADRON [facility]: Love Kumar MD; Tiburcio Cartagena MD Technologist: Anu So Probe: Trscr Dt/Tm: 02/17/2022 (0949) by:[facility] Print D/T: S: 02/17/2022 (0953) BATCH NO: N/A Name: FABI,JERI Horton [facility] Phys: Tiburcio Angel MD [address] : 1975 Age: 46 Sex: F [place], [place] [address]Rrqu No: [id number] Loc: N.2050 1 Exam Date: 02/16/2022 Status: ADM IN PH: FAX: PAGE 2 Signed Report [id number] 07:58:00 Test Item Value Reference Range Interpretation Comments GLUBED (test code = GLUBED) 110 MG/DL 70-105 H HCG [id number] 03:51:00 Test Item Value Reference Range Interpretation [...] nitoring the treatment o fcancer patients PROTHROMBIN [id number] 03:39:00 Test Item Value Reference Range Interpretation [...] .5 recurrent syste chong embolism. THROMBOPLASTIN TIME [id number] 03:39:00 Test Item Value Reference Range Interpretation Comments THROMBOPLASTIN TIME PARTIAL (test 29 SECONDS 25-38 N code = PTT) BASIC METABOLIC [id number] 03:39:00 Test Item Value Reference Range Interpretation [...] mg/dL 8.5-10.5 N = CA) CBC W/AUTO [id number] 03:26:00 Test Item Value Reference Range Interpretation [...] = BA#) 0.1 x10 3/uL 0.0-0.1 N [id number] 00:22:00 Test Item Value Reference Range Interpretation Comments GLUBED (test code = GLUBED) 112 MG/DL 70-105 H [id number] 16:32:00 Test Item Value Reference Range Interpretation Comments GLUBED (test code = GLUBED) 112 MG/DL 70-105 H [id number] 12:51:00 Test Item Value Reference Range Interpretation Comments GLUBED (test code = GLUBED) 118 MG/DL 70-105 H [id number] 07:34:00 Test Item Value Reference Range Interpretation Comments GLUBED (test code = GLUBED) 97 MG/DL 70-105 N COMPREHENSIVE METABOLIC [id number] 07:32:00 Test Item Value Reference Range Interpretation [...] 42-121 N PHOSPHATASE (test code = ALKP) [id number] 04:16:00 Test Item Value Reference Range Interpretation Comments CREATININE (test code = CREAT) 0.63 mg/dL 0.44-1.03 N [id number] 04:16:00 Test Item Value Reference Range Interpretation Comments PHOSPHOROUS (test code = PHOS) 3.9 mg/dl 2.5-4.6 N [id number] 04:16:00 Test Item Value Reference Range Interpretation Comments MAGNESIUM (test code = MAG) 2.0 mg/dl 1.8-2.5 N [id number] 00:03:00 Test Item Value Reference Range Interpretation Comments GLUBED (test code = GLUBED) 110 MG/DL 70-105 H UA RFLX MICR CULT IF [id number] 13:51:00 Test Item Value Reference Range Interpretation [...] for culture: RiskForSepsis-no oth srcSpecimen Description: CATHETERIZED (STRAIGHT)[id number] 11:24:00 Test Item Value Reference Range Interpretation Comments GLUBED (test code = GLUBED) 106 MG/DL 70-105 H - DUP VEIN UNI [id number] 10:04:00 [facility] : 1975 Sex: FPatient Name: JERI VILLALOBOS Unit No: [id number] EXAMS: CPT: [id number] [address] RIGHT UPPER EXTREMITY VENOUS COLOR DOPPLER SCAN [...] the deep veins of the Right Upper Ex tremity. Per Vascular Lab protocol, the Left Subclavian [...] MD; Steph Kumari MD Technologist: FAMILIA Chavarria Probe:Trscr Dt/Tm: 02/15/2022 (1004) by:BasilHR Orig Print D/T: S: 02/15/2022 (1007) BATCH NO: N/A Name:JERI VILLALOBOS [facility] Phys: JUANCARLOS. - Steph Kumari MD [address] [facility] : 1975 Age: 46 Sex: F [place], [place] [address] Loc: N.2050 1 Exam Date: 02/14/2022 Status: ADM IN PH: FAX: PAGE 1 Signed [id number] 07:23:00 Test Item Value Reference Range Interpretation Comments GLUBED (test code = GLUBED) 134 MG/DL 70-105 H - XR CHEST 1 [id number] 06:40:00 [facility] : 1975 Sex: FPatient Name: JERI VILLALOBOS Unit No: [id number] EXAMS: CPT: [id number] XR CHEST 1 V 87377 Portable chest, 02/15/2022. Clinical: Aspiration. Comment: The [...] (0643) BATCH NO: N/A Name: JERI VILLALOBOS [facility] Phys: Jorje Brasher MD [address] : 1975 Age: 46 Sex: F [place], [place] [address] Loc: N.2050 09 Exam Date: 02/15/2022 Status: ADM IN PH: FAX: PAGE 1 Signed Report [id number] 06:14:00 Test Item Value Reference Range Interpretation Comments GLUBED (test code = GLUBED) 179 MG/DL 70-105 H BASIC METABOLIC [id number] 04:28:00 Test Item Value Reference Range Interpretation [...] code 8.5 mg/dL 8.5-10.5 N = CA) [id number] 04:28:00 Test Item Value Reference Range Interpretation Comments PHOSPHOROUS (test code = PHOS) 3.7 mg/dl 2.5-4.6 N [id number] 04:28:00 Test Item Value Reference Range Interpretation Comments MAGNESIUM (test code = MAG) 1.7 mg/dl 1.8-2.5 L CBC W/AUTO [id number] 04:18:00 Test Item Value Reference Range Interpretation [...] BA#) 0.0 x10 3/uL 0.0-0.1 N SED [id number] 02:39:00 Test Item Value Reference Range Interpretation Comments SED RATE (test code = SEDW) 57 mm/hr 0-20 H HIGH SENSITIVITY [id number] 01:33:00 Test Item Value Reference Range Interpretation Comments HIGH SENSITIVITY CRP (test code = 5.257 mg/dl 0.000-0.747 H CRPHS) [id number] 00:38:00 Test Item Value Reference Range Interpretation Comments GLUBED (test code = GLUBED) 96 MG/DL 70-105 N [id number] 16:56:00 Test Item Value Reference Range Interpretation Comments GLUBED (test code = GLUBED) 124 MG/DL 70-105 H ARTERIAL BLOOD [id number] 10:08:00 Test Item Value Reference Range Interpretation [...] d message] code = MARY) The system [employer] generated this result transmit may reference range [...] code 12.5 g/dL 12.0-18.0 N = THB) [id number] 08:45:00 Test Item Value Reference Range Interpretation Comments GLUBED (test code = GLUBED) 112 MG/DL 70-105 H [id number] 04:22:00 Test Item Value Reference Range Interpretation Comments PHOSPHOROUS (test code = PHOS) 4.5 mg/dl 2.5-4.6 N [id number] 04:22:00 Test Item Value Reference Range Interpretation Comments MAGNESIUM (test code = MAG) 1.9 mg/dl 1.8-2.5 N BASIC METABOLIC [id number] 04:14:00 Test Item Value Reference Range Interpretation [...] mg/dL 8.5-10.5 N = CA) CBC W/AUTO [id number] 04:03:00 Test Item Value Reference Range Interpretation [...] = BA#) 0.1 x10 3/uL 0.0-0.1 N [id number] 23:41:00 Test Item Value Reference Range Interpretation Comments GLUBED (test code = GLUBED) 89 MG/DL 70-105 N [id number] 18:22:00 Test Item Value Reference Range Interpretation Comments GLUBED (test code = GLUBED) 126 MG/DL 70-105 H - XR CHEST 1 [id number] 06:29:00 [facility] : 1975 Sex: FPatient Name: JERI VILLALOBOS Unit No: [id number] EXAMS: CPT: [id number] XR CHEST 1 V 07955 Portable chest, 02/13/2022. Clinical: Aspiration. Comment: The [...] (0632) BATCH NO: N/A Name: JERI VILLALOBOS [facility] Phys: TRUDI Tejas Zapata [address] : 1975 Age: 46 Sex: F [place], [place] [address] Loc: N.2050 09 Exam Date: 02/13/2022 Status: ADM IN PH: FAX: PAGE 1 Signed ReportCOMPREHENSIVE METABOLIC [id number] 04:15:00 Test Item Value Reference Range Interpretation [...] 42-121 N PHOSPHATASE (test code = ALKP) [id number] 04:15:00 Test Item Value Reference Range Interpretation Comments PHOSPHOROUS (test code = PHOS) 3.4 mg/dl 2.5-4.6 N [id number] 04:15:00 Test Item Value Reference Range Interpretation Comments MAGNESIUM (test code = MAG) 1.9 mg/dl 1.8-2.5 N CBC W/AUTO [id number] 04:06:00 Test Item Value Reference Range Interpretation [...] = BA#) 0.0 x10 3/uL 0.0-0.1 N [id number] 00:07:00 Test Item Value Reference Range Interpretation Comments GLUBED (test code = GLUBED) 109 MG/DL 70-105 H [id number] 18:06:00 Test Item Value Reference Range Interpretation Comments GLUBED (test code = GLUBED) 113 MG/DL 70-105 H [id number] 12:18:00 Test Item Value Reference Range Interpretation Comments GLUBED (test code = GLUBED) 111 MG/DL 70-105 H - XR CHEST 1 [id number] 06:13:00 [facility] : 1975 Sex: FPatient Name: JERI VILLALOBOS [place] Unit No: [id number] EXAMS: CPT: [id number] XR CHEST 1 V 91729 Portable chest, 02/12/2022. Clinical: Pneumonia. Comment: The [...] (612) by:[email or web address] Orig Print D/T: S: 02/12/2022 (615) BATCH NO: N/A Name: JERI VILLALOBOS Clifford [facility] Phys: JUANCARLOS. Steph Kumari MD [address] [facility] : 1975 Age: 46 Sex: F [place] [address] Loc: N.2050 1 Exam Date: 02/12/2022 Status: ADM IN PH: FAX: PAGE 1 Signed ReportCALCIUM [id number] 06:12:00 Test Item Value Reference Range Interpretation Comments CALCIUM IONIZED (test code = WESLY) 1.14 mmol/L 1.13-1.32 N [id number] 05:52:00 Test Item Value Reference Range Interpretation Comments PHOSPHOROUS (test code = PHOS) 2.7 mg/dl 2.5-4.6 N [id number] 05:52:00 Test Item Value Reference Range Interpretation Comments MAGNESIUM (test code = MAG) 1.7 mg/dl 1.8-2.5 L CBC W/AUTO [id number] 05:18:00 Test Item Value Reference Range Interpretation [...] 0.0 x10 3/uL 0.0-0.1 N COMPREHENSIVE METABOLIC [id number] 05:12:00 Test Item Value Reference Range Interpretation [...] 42-121 N PHOSPHATASE (test code = ALKP) [id number] 01:02:00 Test Item Value Reference Range Interpretation Comments GLUBED (test code = GLUBED) 110 MG/DL 70-105 H HGBA1C - GLYCOSYLATED [id number] 19:19:00 Test Item Value Reference Range Interpretation [...] red blood cells - MRI BRAIN W/O [id number] 16:41:00 [facility] : 1975 Sex: FPatient Name: JERI VILLALOBOS Unit No: [id number] EXAMS: CPT: [id number] MRI BRAIN W/O CONTRAST 59472 EXAM: MRI brain without intravenous contrast HISTORY: Reported pontine and cerebellar infarcts. COMPARISON: Head CT 02/11/2022 TECHNIQUE: Multiplanar and multisequence acquisitions of the brain were obtained without intravenous contrast. FINDINGS: Scalp: No abnormal signal. No masses. Bone marrow: Normal in signal intensity. Extra-axial: No masses, fluid collections or hemorrhage. Brain sulci: Appropriatefor age. Ventricles: Normal in size . No hydrocephalus. Parenchyma: There is diffuse restricted diffusion throughout the marie, compatible with acute pontine infarct. There is a large wedge-shaped region of restricted diffusion in the inferior right cerebellar hemisphere. No supratentorial ischemia. Nomasses or acute hemorrhage. Suprasellar region: No abnormalities. [...] with acute infarct. This was also reported pre viously. No acute hemorrhage or mass effect at this time. Don Marshall DO Neuroradiology at 1641 Reported and signed by: DON MARSHALL MD Name: FABI,JERI Horton [facility] Phys: JUANCARLOS. - Steph Kumari MD [address] [facility] : 1975 Age: 46 Sex: F [place], [place] [address] Loc: N.2051 1 Exam Date: 02/11/2022 Status:ADM IN PH: FAX: PAGE 1 Signed Report (CONTINUED) Patient Name: JERI VILLALOBOS Unit No: [id number] EXAMS: CPT: [id number] MRI BRAIN W/O CONTRAST 72706 (Continued) CC: Love Kumar MD; Steph Kumari MD Technologist: Natty Barker Dt/Tm: 02/11/2022 (1640) by:[email or web address] Orig Print D/T: S: 02/11/2022 (1644) BATCH NO: N/A Name: JERI VILLALOBOS Clifford [facility] Phys: JUANCARLOS.02 - Steph Kumari MD [address] : 1975 Age: 46 Sex: F [place] [address] Loc: N.2050 09 Exam Date: 02/11/2022 Status: ADM IN PH: FAX: PAGE 2 Signed ReportPROTHROMBIN [id number] 16:14:00 Test Item Value Reference Range Interpretation [...] .5 recurrent syste chong embolism. THROMBOPLASTIN TIME [id number] 16:14:00 Test Item Value Reference Range Interpretation Comments THROMBOPLASTIN TIME PARTIAL (test 31 SECONDS 25-38 N code = PTT) [id number] 16:03:00 Test Item Value Reference Range Interpretation Comments MAGNESIUM (test code = MAG) 2.1 mg/dl 1.8-2.5 N Spec Comments: MUST BE FASTINGCOMPREHENSIVE METABOLIC [id number] 16:03:00 Test Item Value Reference Range Interpretation [...] risk) >23 >11 Spec Comments: MUST BE [id number] 15:49:00 Test Item Value Reference Range Interpretation Comments TROPONIN-I (test code = TROPI) <0.020 ng/mL 0.000-0.034 N CBC W/AUTO [id number] 15:34:00 Test Item Value Reference Range Interpretation [...] 3/uL 0.0-0.1 N - CT HEAD/BRAIN W/O [id number] 13:11:00 [facility] : 1975 Sex: FPatient Name: JERI VILLALOBOS Unit No: [id number] EXAMS: CPT: [id number] CT HEAD/BRAIN W/O CONT 72348 Comparison study: 02/09/2022 HISTORY: anoxic brain injury CT SCAN OF THE HEAD WITHOUT CONTRAST FINDINGS: CT scan of brain was performed without contrast. One or more of the following dose reduction techniques were used: Automated exposure control, adjustment of the mA and/or KV according to patient size, and /or utilization of iterative reconstruction technique. Extensive low-density is present involving the marie consistent with an infarct. A 4.7 cm low-density area is present in the right cerebellum consistent with an infarct. Low-density is present in the left cerebellum consistent with an infarct. Highdensity is present within the basilar artery suspicious [...] Findings called to the ICU nurse 02/11/2022 cv1979 hours. at 1311 Reportedand signed by: Travis Bashir MD CC: Love Kumar MD; Steph Kumari MD Technologist: Bree Grider CTDI: 43.49 DLP: 800.24 Trscr Dt/Tm: 02/11/2022 (1311) by:[email or web address] Orig Print D/T: S: 02/11/2022(1315) BATCH NO: N/A Name: JERI VILLALOBOS Clifford [facility] Phys: JUANCARLOS.02 - Steph Kumari MD [address] [facility] : 1975 Age: 46 Sex: F [place], [place] [address] Loc: N.2050 1 Exam Date: 02/11/2022 Status: ADM IN PH: FAX: PAGE 1 Signed [id number] 11:47:00 Test Item Value Reference Range Interpretation Comments GLUBED (test code = GLUBED) 98 MG/DL 70-105 N COMPREHENSIVE METABOLIC [id number] 06:39:00 Test Item Value Reference Range Interpretation [...] N PHOSPHATASE (test code = ALKP) CALCIUM [id number] 06:33:00 Test Item Value Reference Range Interpretation Comments CALCIUM IONIZED (test code = WESLY) 1.12 mmol/L 1.13-1.32 L CBC W/AUTO [id number] 06:27:00 Test Item Value Reference Range Interpretation [...] = BA#) 0.0 x10 3/uL 0.0-0.1 N [id number] 05:34:00 Test Item Value Reference Range Interpretation Comments PHOSPHOROUS (test code = PHOS) 2.1 mg/dl 2.5-4.6 L [id number] 05:34:00 Test Item Value Reference Range Interpretation Comments MAGNESIUM (test code = MAG) 1.9 mg/dl 1.8-2.5 N ARTERIAL BLOOD [id number] 05:23:00 Test Item Value Reference Range Interpretation [...] d message] code = MARY) The system [employer] generated this result transmit may reference range [...] code 13.3 g/dL 12.0-18.0 N = THB) [id number] 16:35:00 Test Item Value Reference Range Interpretation Comments GLUBED (test code = GLUBED) 71 MG/DL 70-105 N [id number] 12:07:00 Test Item Value Reference Range Interpretation Comments GLUBED (test code = GLUBED) 148 MG/DL 70-105 H [id number] 11:42:00 Test Item Value Reference Range Interpretation Comments GLUBED (test code = GLUBED) 59 MG/DL 70-105 L COVID 19 INHOUSE [id number] 10:50:00 Test Item Value Reference Range Interpretation Comments COVID 19 INHOUSE AG NEGATIVE Negative Negative results should be (test code = treated as pres umptive [id number]) andconfirmed wi a molecular assay , if necessary for [...] oms consistent withCOVID-19.Sp ecimen Source: Nasopha ryngeal (DIRECTOR OF CATERING) Swab COAGULATION TIME [id number] 08:14:00 Test Item Value Reference Range Interpretation Comments COAGULATION TIME ACTIVATED (test 159 SECONDS 91-151 H code = ACT) - XR ABDOMEN [id number] 07:53:00 [facility] : 1975 Sex: FPatient Name: JERI VILLALOBOS Unit No: [id number] EXAMS: CPT: [id number] XR ABDOMEN 1V 03977 COMPARISON: None available CLINICAL HISTORY: OG TUBE [...] (0756) BATCH NO: N/A Name: JERI VILLALOBOS [facility] Phys: SANTejas Butt [address] [facility] : 1975 Age: 46 Sex:F [place], [place] [address] Loc: N.2051 1 Exam Date: 02/10/2022 Status: ADM IN PH:FAX: PAGE 1 Signed Report- XR CHEST 1 [id number] 07:41:00 [facility] : 1975 Sex: FPatient Name: JERI VILLALOBOS Unit No: [id number] EXAMS: CPT: [id number] XR CHEST 1 V 98773 AP CHEST 1 VIEW COMPARISON: February 09, [...] is stable. IMPRESSION: 1. ET tube is abovethe ketty. 2. Multifocal airspace disease is again visible. at 0741 Reported and signed by: Cynthia Scott MD CC: Manuel Rose DO; Abel Wu NP Technologist: Virgilio Deleon Time: DAP (Gy m2): Air Kerma (mGy): Trscr Dt/Tm: 02/10/2022 (0741) by:[email or web address] Orig Print D/T: S: 02/10/2022 (0744) BATCH NO: N/A Name: JERI VILLALOBOS [facility] Phys: [id number] - Anisa Wu NP [address] : 1975 Age: 46 Sex: F [place], [place] [address] Loc: N.1 1 Exam Date: 02/10/2022 Status: ADM IN PH: FAX: PAGE 1 Signed [id number] 07:14:00 Test Item Value Reference Range Interpretation Comments PHOSPHOROUS (test code = PHOS) 2.3 mg/dl 2.5-4.6 L [id number] 07:14:00 Test Item Value Reference Range Interpretation Comments MAGNESIUM (test code = MAG) 1.8 mg/dl 1.8-2.5 N CALCIUM [id number] 06:51:00 Test Item Value Reference Range Interpretation Comments CALCIUM IONIZED (test code = WESLY) 1.11 mmol/L 1.13-1.32 L COMPREHENSIVE METABOLIC [id number] 06:02:00 Test Item Value Reference Range Interpretation [...] PHOSPHATASE (test code = ALKP) ARTERIAL BLOOD [id number] 05:43:00 Test Item Value Reference Range Interpretation [...] d message] code = MARY) The system [employer] generated this result transmitted ref erence range: [...] g/dL 12.0-18.0 N = THB) CBC W/AUTO [id number] 05:06:00 Test Item Value Reference Range Interpretation [...] 3/uL 0.0-0.1 N DRUGS OF ABUSE SCREEN [id number] 19:54:00 Test Item Value Reference Range Interpretation Comments UR COCAINE (test code NEGATIVE NEGATIVE This i s a toxicology = COCAU) qualitative scr eening test only, [facility] hmay detect parent c ompound or metabolite or relatedsubstanc e. If confirmatory te sting is desired, please request drug screen con firmation. These results a re unconfirmed and should be used only for m edical purposes.Unconf irmed screening resul ts must not be used fornon-medical purposes (ex-employment testing). Cut-off concent ration for Cocaine is 300 ng/mLRecommende d screening cut-o ff concentrations by [facility] and [facility]. UR CANABINOIDS (test POSITIVE NEGATIVE A [...] ng/mLRecommende d screening cut-o ff concentrations by theSubstance Ab use and Mental [facility]. UR AMPHETAMINE (test POSITIVE NEGATIVE A [...] ff concentrations by thebstance Ab use and Mental [facility]. UR BARBITURATE (test NEGATIVE NEGATIVE This [...] ff concentrations by thebstance Ab use and Mental [facility]. UR BENZODIAZEPINE NEGATIVE NEGATIVE This is [...] ng/mLRecommende d screening cut-o ff concentrations by [facility] Ab use [facility]. UR OPIATES QUAL (test NEGATIVE NEGATIVE [...] ng/mLRecommende d screening cut-o ff concentrations by [facility] use [facility]. UR PHENCYCLIDINE NEGATIVE NEGATIVE This is a [...] ng/mLRecommende d screening cut-o ff concentrations by [facility] Ab use [facility]. URINALYSIS [id number] 19:43:00 Test Item Value Reference Range Interpretation [...] code = 1+ /LPF NONE SEEN MUCU) [id number] 17:19:00 Test Item Value Reference Range Interpretation Comments GLUBED (test code = GLUBED) 95 MG/DL 70-105 N ARTERIAL BLOOD [id number] 16:39:00 Test Item Value Reference Range Interpretation [...] d message] code = MARY) The system [employer] generated this result transmit may reference range [...] N = THB) - XR CHEST 1 [id number] 14:10:00 [facility] : 1975 Sex: FPatient Name: JERI VILLALOBOS Unit No: [id number] EXAMS: CPT: [id number] XR CHEST 1 V 31740 XR CHEST 1 VIEW HISTORY: ETT PLACEMENT [...] Air Kerma (mGy): Trscr Dt/Tm: 02/09/2022 (1410) by:[email or web address] Print D/T: S: 02/09/2022 (1414) BATCH NO: N/A Name: JERI VILLALOBOS [facility] Phys: BRODERICK - Love Kumar V [address] : 1975 Age: 46 Sex: F [place] [address] Loc: N.2051 1 Exam Date: 02/09/2022 Status: ADM IN PH: FAX: PAGE 1 Signed Report- CT C-SPINE W/O [id number] 13:29:00 [facility] : 1975 Sex: FPatient Name: JERI VILLALOBOS Unit No: [id number] EXAMS: CPT: [id number] CT C-SPINE W/O CONT 68716 CT CERVICAL SPINE Multiplanar imaging of the cervical spine was performed without contrast. Radiation dose optimization was achieved by protocols in accordance with standard of practice, department policies and site administrator's recommendations with one or more of the [...] anterolisthesis with mild central canal narrowing. There issevere hypertrophic right facet arthrosis with right foraminal narrowing. There is mild left facet arthrosis. Left foramen is nicely patent. C5-C6: There is advanced disc degeneration with spondylosis.Disc osteophyte complex posteriorly encroaches upon the central canal and neuroforamina. There is nosignificant facet arthrosis. C6-C7: There is disc degeneration with spondylosis. There is disc bulging encroaching upon the central canal. There is no significant facet arthrosis. The neuroforamina are satisfactorily patent. Negative for acute abnormality. C7-T1: The disc is normal in size and configuration. There is no disc herniation or bulge. Facets demonstrate no significant arthrosis. There is no spinal or foraminal stenosis. There is no fracture. CONCLUSION: Multilevel disc degeneration and spondylosis. Name: JERI VILLALOBOS [facility] Phys: Ruiz Wofle MD [address] [facility] : 1975 Age: 46 Sex: F [place] [address] Loc: N.2050 09 Exam Date: 02/09/2022 Status: ADM IN PH: FAX: PAGE 1 Signed Report (CONTINUED) Patient Name: FABIJERI Horton Unit No: [id number] EXAMS: CPT: [id number] CT C-SPINE W/O CONT 88269 (Continued) Multilevel facet arthrosis. at 1329 Reported and signed by: Derick Norton MD CC: Ruiz Vaughn MD; Manuel Rose DO Technologist: Sarah Perez CTDI: 13.02 DLP: 277.12 Trscr Dt/Tm: 02/09/2022 (1329) by:Cheri Orig Print D/T: S: 02/09/2022 (5702) BATCH NO: N/A Name: JERI VILLALOBOS [facility] Phys: Ruiz Wolfe MD [address] [facility] : 1975 Age: 46 Sex: F [place] [address] Loc: N.2051 1 Exam Date: 02/09/2022 Status: ADM IN PH: FAX: PAGE 2 Signed Report- CTA CHEST FOR [id number] 13:24:00 [facility] : 1975 Sex: FPatient Name: JERI VILLALOBOS Unit No: [id number] EXAMS: CPT: [id number] [place] [address] CTA CHEST WITH CONTRAST: INDICATIONS:Pulmonary embolism. COMPARISON: [...] with ACR practice standards and adherence to site administrator's recommendations. Contrast: 100cc Isovue-300. Total DPL: 1497.94mGy*cm. [...] artery are opacified and no pulmonary emboli seen.IMPRESSION: Large groundglass opacities and infiltrates in the left upper lobe and lingula lobe. A lesser extent of groundglass opacities and infiltrates in the right upper and middle lobe. Findings degenerative of a multifocal pneumonia. No pulmonary emboli seen. at 1324 Reported and signed by: Jalen Black MD Name: FABI,JERI Horton [facility] Phys: Ruiz Wolfe MD [address] [facility] : 1975 Age: 46 Sex: F [place] [address] Loc: N.2050 1 Exam Date: 02/09/2022 Status: ADM IN PH: FAX: PAGE 1 SignedReport (CONTINUED) Patient Name: JERI VILLALOBOS Unit No: [id number] EXAMS: CPT: [id number] [place] [address] (Continued) CC: Ruiz Vaughn MD; Manuel Rose DO Technologist: Sarah Perez CTDI: 11.06 DLP: 398.57 Trscr Dt/Tm: 02/09/2022 (1324) by:[email or web address] Orig Print D/T: S: 02/09/2022 (1327) BATCH NO: N/A Name: JERI VILLALOBOS [facility] Phys: Ruiz Wolfe MD [address] [facility] : 1975 Age: 46 Sex: F [place] [address] Loc: N.2050 1 Exam Date: 02/09/2022 Status: ADM IN PH: FAX: PAGE 2 Signed Report- CT HEAD/BRAIN W/O [id number] 13:17:00 [facility] J[facility]I [place] : 1975 Sex: FPatient Name: JERI VILLALOBOS Unit No: [id number] EXAMS: CPT: [id number] CT HEAD/BRAIN W/O CONT 31070 CT HEAD Multiplanar imaging was performed without contrast. Radiation dose optimization was achieved by protocols in accordance with standard of practice, department policies and site administrator's recommendations with one or more of the [...] in size. There is no hydrocephalus or ventricularcompression or midline shift. The pineal gland and [...] by: Derick Norton MD [facility]: Ruiz Wolfe MD [address] [facility] : 1975 Age: 46 Sex: F [place] [address] Loc: N.2050 1 Exam Date: 02/09/2022 Status: ADM IN PH: FAX: PAGE 1 Signed Report (CONTINUED) Patient Name: JERI VILLALOBOS Unit No: [id number] EXAMS: CPT: [id number] CT HEAD/BRAIN W/O CONT 65387 (Continued) CC: Ruiz Vaughn MD; Manuel Rose DO Technologist: Sarah Perez CTDI: 45.45 DLP: 736.2 Trscr Dt/Tm: 02/09/2022 (1317) by:Cheri Orig Print D/T: S: 02/09/2022 (1320) BATCH NO: N/A Name: JERI VILLALOBOS [facility] Phys: Ruiz Wolfe MD [address] : 1975 Age: 46 Sex: F [place], [place] [address] Loc: N.1 1 Exam Date: 02/09/2022 Status: ADM IN PH: FAX: PAGE 2 Signed ReportLACTIC [id number] 11:06:00 Test Item Value Reference Range Interpretation Comments LACTIC ACID (test code = LACT) 1.6 mmol/L 0.5-2.0 N ARTERIAL BLOOD [id number] 09:33:00 Test Item Value Reference Range Interpretation [...] [Automate d code = MARY) message] The [employer] stem which generated this result transmitted reference [...] g/dL 12.0-18.0 N = THB) CBC W/AUTO [id number] 07:34:00 Test Item Value Reference Range Interpretation [...] 8.8 fL 8.6-12.6 N = MPV) WBC [id number] 07:34:00 Test Item Value Reference Range Interpretation [...] 3/uL 0.00-0.00 N = OCT#) COMPREHENSIVE METABOLIC [id number] 06:52:00 Test Item Value Reference Range Interpretation [...] 42-121 N PHOSPHATASE (test code = ALKP) [id number] 05:45:00 Test Item Value Reference Range Interpretation Comments GLUBED (test code = GLUBED) 150 MG/DL 70-105 H - XR CHEST 1 [id number] 03:56:00 [facility] : 1975 Sex: FPatient Name: JERI VILLALOBOS Unit No: [id number] EXAMS: CPT: [id number] XR CHEST 1 V 28403 CHEST 1 VIEW CLINICAL HISTORY: Shortness of breath COMPARISON: None. A single frontal view of the chest is submitted. FINDINGS: The cardiac silhouette is normal in size. Vascularity appears normal. There are diffuse hazy infiltrates in the left lung and mild infiltrates in the right lung base consistent with pneumonia. No pleural effusion or pneumothorax is seen. No osseous abnormalities are seen. IMPRESSION: Bilateral infiltrates consistent with pneumonia. at 0356 Reported and signed by: Shelton Dumont MD CC: Chris Hayes MD Technologist: Marshall Deleon Time: DAP (Gy m2): Air Kerma (mGy): Trscr Dt/Tm: 02/09/2022 (0356) by:[email or web address] Orig Print D/T: S: 02/09/2022 (0400) BATCH NO: N/A Name: JERI VILLALOBOS [facility] Phys: Chris Blas MD [address] : 1975 Age: 46 Sex: F [place] [address] Loc: N.ERS Exam Date: 02/09/2022 Status: REG ER PH: FAX: PAGE 1 Signed Report
[2022-07-11] MEDS ORDERED: NA CHLORIDE 0.9% 1,000 ML ONE (10:59)
[2022-07-11] MEDS ORDERED: ACETAMINOPHEN 325 MG/SUPP PR ONE (10:59)
[2022-07-11] MEDS ORDERED: NA CHLORIDE 0.9% 500 ML ONE (10:59)
[2022-07-11] MEDS ORDERED: MIDAZOLAM HCL 2 MG/2 ML INJ ONE (11:28)
[2022-07-11] MEDS ORDERED: NA CHLORIDE 0.9% 100 ML IV ONE (11:28)
[2022-07-11] MEDS ORDERED: CEFEPIME 1 GM/VIAL ONE (11:28)
[2022-07-11 11:34] LABS: Absolute Lymphocytes (CBC) 2.8 K/uL (0.7-4.9); Hematocrit 39.5 % (36.0-45.0); Lymphocytes % 6.8 % (15.3-44.8); MCV 81.8 fL (80-100); MPV 8.4 fL (7.6-11.3); RBC Red Blood Cell Count 4.83 M/uL (3.86-4.86)
[2022-07-11 11:40] LABS: Protime INR 1.05
[2022-07-11] MEDS ORDERED: VANCOMYCIN 750 MG in NA CHLORIDE 0.9% 150 ML IVPB ONE (11:45)
[2022-07-11 11:51] LABS: Albumin 3.5 g/dL (3.4-5.0); Bilirubin Total 0.5 mg/dL (0.2-1.0); Potassium 4.7 mmol/L (3.5-5.1); Protein, Total 10.2 g/dL (6.4-8.2)
[2022-07-11 11:51] LABS: Arterial Blood Carboxyhemoglob 0.8 % (0-1.5); Blood Gas Oxyhemoglobin 97.7 % (94-97); Blood O2 Saturation 99.5 % (92-98.5)
[2022-07-11 12:11] LABS: Blood Morphology Comment NOT SEEN (NOT SEEN); Platelet Estimate ADEQ; White Blood Cell Scan OK (OK)
--- NOTE | 2022-07-11 12:26 | RAD REPORT ---
[facility] 12[facility]16 pm CLINICAL HISTORY: Sepsis COMPARISON: June 26, 2022 FINDINGS: Left lower lobe opacity without obvious change Additional haziness overlying the lungs secondary to breast implants The upper lobes are clear. Heart is normal size. Tracheostomy tube in place IMPRESSION: Left lower lobe opacity appears to be without significant change. This may represent ate lectasis or pneumonia
--- NOTE | 2022-07-11 13:15 | EDPHYS ---
Physician Documentation [facility] Name: Angelique Villalobos Age: 46 yrs Sex: Female : 1975 Arrival Date: 07/11/2022 Time: 10:40 Bed 7 Private MD: ED Physician Erna Pantoja HPI: 07/11 11:07 This 46 yrs old Female presents to ER via EMS with complaints of tachycardia. sd2 11:07 46-year-old female with a history of anoxic brain injury presents via EMS from her [facility] assisted with chief complaint of fever and tachycardia. Temperature obtained rectally upon arrival was 105.1 with a heart rate of 160. She was 1 60-1 70 in route. She does have a history of SVT in the past. EMS reports they were called initially due to diaphoresis. The patient was last admitted to our facility for severe sepsis with septic shock. Hx otherwise limited due to patient's mental status. 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 . Historical: - Allergies: 10:44 albuterol sulfate; ll1 - PMHx: 10:44 CVA; Hyperlipidemia; anoxic brain injury; MRSA; ll1 - PSHx: 10:44 tracheostomy; PEG tube; ll1 - Immunization history:: Adult Immunizations up to date. - Social history:: Smoking status: Patient denies any tobacco usage or history of. ROS: 11:10 Unable to obtain ROS due to patient is in a persistent vegetative state. sd2 Exam: 11:10 Head/Face: Normocephalic, atraumatic. Eyes: EOMI, normal conjunctiva bilaterally sd2 Chest/axilla: Normal chest wall appearance and motion. Nontender with no deformity. 11:10 Abdomen/GI: Soft, non-tender, with normal bowel sounds. No guarding or rebound. No evidence of tenderness throughout. PEG tube in place. MS/ Extremity: Pulses equal, no cyanosis. Decreased tone to all 4 extremities, chronic. Contractures noted of BUEs. Psych: At mental baseline per EMS report 11:10 Constitutional: The patient appears alert, awake, in obvious distress, obviously ill, Diaphoretic 11:10 Cardiovascular: Rate: tachycardic, Rhythm: regular, Pulses: Pulses are 2+ in right radial artery, right dorsalis pedis artery, left radial artery and left dorsalis pedis artery. Edema: is not appreciated. 11:10 ECG was reviewed by the Attending Physician. Sinus tachycardia, rate 159, no STEMI criteria, significant wandering baseline and artifact due to patient's tremulousness 11:10 Respiratory: moderate respiratory distress is noted, Respirations: labored breathing, accessory muscle usage, intercostal retractions, tachypnea, Breath sounds: are clear throughout, no rales, rhonchi, no wheezing. Vital Signs: 10:45 BP 180 / ???; Pulse 160; Resp 40; Temp 105.1(R); Pulse Ox 100% on Simple Mask; Weight ll1 43.09 kg; 10:55 BP 103 / 63; ll1 11:47 BP 108 / 79; Pulse 117; Resp 28; Temp 103.7(C); Pulse Ox 100% on Simple Mask; ll1 12:11 BP 93 / 64; Pulse 110; Resp 27; Temp 102.0(C); Pulse Ox 100% ; ll1 13:29 BP 100 / 66; Pulse 105; Resp 28; Temp 100.1; Pulse Ox 100% ; ll1 15:20 BP 105 / 77; Pulse 96; Resp 24; Temp 99.7(C); Pulse Ox 97% on Simple Mask; ll1 12:11 no urine output in garza yet, Dr. Pantoja informed. ll1 MDM: 10:41 Patient medically screened. sd2 11:10 Differential Diagnosis sepsis, anemia, dehydration, electrolyte abnormality, ACS, sd2 arrhythmia, PNA, UTI among others. Data reviewed: vital signs, nurses notes. 13:12 Data reviewed: lab test result(s), EKG, radiologic studies. ED course: Labs and imaging sd2 reviewed. Labs consistent with septic shock with kidney dysfunction and lactate 10. Procalcitonin elevated. Blood cultures have been sent and reflex LA pending with broad spectrum abx given. UA is pending due to lack of urine production thus far. Full 30 cc/kg IVF bolus in progress. Pt to be admitted for further management at this time. . 07/11 10:53 Order name: Blood Culture Adult (2) sd2 07/11 10:53 Order name: CBC with Diff; Complete Time: 12:27 sd2 07/11 10:53 Order name: CMP; Complete Time: 12:27 sd2 07/11 10:53 Order name: Lactate; Complete Time: 12:27 sd2 07/11 10:53 Order name: Protime (+inr); Complete Time: 12:27 sd2 07/11 10:53 Order name: Ptt, Activated; Complete Time: 12:27 sd2 07/11 10:53 Order name: Urine Microscopic Only sd07/11 10:53 Order name: ABG; Complete Time: 17:04 sd2 07/11 10:53 Order name: Procalcitonin; Complete Time: 12:27 sd2 07/11 10:53 Order name: CK; Complete Time: 12:27 sd2 07/11 11:10 Order name: SARS-COV-2 RT PCR (Document "Date of Onset" if Symptomatic); Complete Time: sd 12:27 07/11 11:10 Order name: Influenza Screen (a \\T\\ B); Complete Time: 12:27 sd2 07/11 11:13 Order name: Glucose, Ancillary Testing; Complete Time: 11:16 EDMS 07/11 11:38 Order name: CBC Smear Scan; Complete Time: 12:27 EDMS 07/11 10:53 Order name: Chest Single View XRAY; Complete Time: 12:27 sd2 07/11 10:53 Order name: Accucheck; Complete Time: 10:57 sd2 07/11 10:53 Order name: Cardiac monitoring; Complete Time: 10:56 07/11 10:53 Order name: EKG - Nurse/Tech; Complete Time: 10:56 sd2 07/11 10:53 Order name: IV Saline Lock - Large Bore; Complete Time: 11:25 sd2 07/11 10:53 Order name: Labs collected and sent; Complete Time: 11:25 sd2 07/11 10:53 Order name: O2 Per Protocol; Complete Time: 10:56 sd2 07/11 10:53 Order name: O2 Sat Monitoring; Complete Time: 10:56 sd2 07/11 14:25 Order name: Urine Dipstick-Ancillary; Complete Time: 17:04 EDMS 07/11 17:03 Order name: CT; Complete Time: 17:04 EDMS 07/11 19:13 Order name: Lactate Sepsis 2 HR Follow-up EDNH 07/11 10:53 Order name: Urine Dipstick-Ancillary (obtain specimen); Complete Time: 19:09 sd2 07/11 10:53 Order name: Vital Signs; Complete Time: 10:56 sd07/11 10:53 Order name: Ice pack; Complete Time: 10:56 sd2 07/11 12:51 Order name: Straight Catheterization; Complete Time: 14:34 sd2 Administered Medications: 11:03 Drug: Acetaminophen Suppository 650 mg Route: LA; ll1 12:22 Follow up: Response: No adverse reaction ll1 11:20 Drug: NS 0.9% (30 ml/kg) 30 ml/kg Route: IV; Rate: bolus; Site: left antecubital; ll1 11:40 Drug: Cefepime 1 grams Route: IVPB; Rate: 200 ml/hr; Infused Over: 30 mins; Site: left ll1 antecubital; 12:21 Follow up: Response: No adverse reaction; IV Status: Completed infusion; IV Intake: ll1 100ml 11:43 Drug: Midazolam 2 mg Route: IVP; Site: right antecubital; 1 12:22 Follow up: Response: No adverse reaction ll1 12:22 Drug: vancoMYCIN 15 mg/kg Route: IVPB; Site: left antecubital; ll1 14:25 Follow up: Response: No adverse reaction; IV Status: Completed infusion; IV Intake: ll1 200ml Disposition Summary: 07/11/22 13:14 Hospitalization Ordered Hospitalization Status: Inpatient Admission sd2 Provider: Calvin Quintero2 Condition: Critical sd2 Problem: new sd2 Symptoms: have improved sd2 Bed/Room Type: [place] [address] Location: Intensive Care Unit(07/11/22 18:34) Room Assignment: 6-(07/11/22 18:34) bd Diagnosis - Severe sepsis with septic shock sd2 - Acute kidney injury sd2 - Pneumonia sd2 Forms: - Medication Reconciliation Form sd2 - SBAR form sd2 Signatures: Dispatcher [employer] Nicole Marin Jose RN RN ja1 Natanael Canchola RN RN ll1 Erna Pantoja MD MD sd2 Corrections: (The following items were deleted from the chart) 11:14 11:07 46-year-old female with a history of anoxic brain injury presents via EMS from [facility] her assisted with chief complaint of fever and tachycardia. Temperature obtained rectally upon arrival was 105.1 with a heart rate of 160. She was 1 60-1 70 in route. She does have a history of SVT in the past. EMS reports they were called initially due to diaphoresis. The patient was last admitted to our facility for severe sepsis with septic shock. Hx otherwise limited due to patient's mental status. . sd2 16:06 13:14 Intensive Care Unit [facility] ja1 16:06 13:14 [facility] ja1 18:34 16:06 [facility] ER HOLD ja1 bd 18:34 16:06 ERHOLD- ja1 bd
--- NOTE | 2022-07-11 13:15 | ER ---
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 Coronavirus ll1 screen: Vaccine status: Patient reports receiving the 2nd dose of the covid vaccine. Client denies travel out of the [place] in the last 14 days. At this time, the client does not indicate any symptoms associated with coronavirus-19. Ebola Screen: Patient denies travel to an Ebola-affected area in the 21 days before illness onset. Initial Sepsis Screen: Does the patient meet any 2 criteria? RR > 20 per min. Temp <36.0*C (96.8*F)) or > 38.3*C (100.9*F). Altered Mental Status. HR > 90 bpm. Yes Does the patient have a suspected source of infection? No. Patient's initial sepsis screen is negative. Risk Assessment: Do you want to hurt yourself or someone else? Patient reports no desire to harm self or others. Onset of symptoms was July 11, 2022. 10:45 Method Of Arrival: EMS ll1 10:45 Acuity: DELMER 1 ll1 Triage Assessment: 10:45 General: Appears uncomfortable, ill, Behavior is cooperative, appropriate for age. ll1 Pain: Denies pain. Neuro: [employer] Mechan[employer] are uto. Gait is ataxic, Speech non verbal. high temp. Cardiovascular: Heart tones S1 S2. Respiratory: Airway is compromised Trachea midline Respiratory effort is labored, Respiratory pattern is symmetrical, tachypnea. Derm: Skin is diaphoretic. Historical: - Allergies: 10:44 albuterol sulfate; ll1 - PMHx: 10:44 CVA; Hyperlipidemia; anoxic brain injury; MRSA; ll1 - PSHx: 10:44 tracheostomy; PEG tube; ll1 - Immunization history:: Adult Immunizations up to date. - Social history:: Smoking status: Patient denies any tobacco usage or history of. Screenin:18 Abuse screen: Denies threats or abuse. Nutritional screening: No deficits noted. ll1 Tuberculosis screening: No symptoms or risk factors identified. Fall Risk IV access (20 points). Gait- Impaired (20 pts.). Total Hale Fall Scale indicates High Risk Score (45 or more points). Fall prevention measures have been instituted. Side Rails Up X 2 Placed Close to Nursing Station Frequent Obs/Assessments Occuring Family Present and informed to notify staff if the need to leave the bedside As available patient and family educated on Fall Prevention Program and Strategies. Assessment: 11:47 Reassessment: No changes from previously documented assessment. Patient and/or family ll1 updated on plan of care and expected duration. Pain level reassessed. 12:11 Reassessment: No changes from previously documented assessment. Patient and/or family ll1 updated on plan of care and expected duration. Pain level reassessed. 13:00 Reassessment: No changes from previously documented assessment. Patient and/or family ll1 updated on plan of care and expected duration. Pain level reassessed. 14:00 Reassessment: No changes from previously documented assessment. Patient and/or family ll1 updated on plan of care and expected duration. Pain level reassessed. 15:00 Reassessment: No changes from previously documented assessment. Patient and/or family ll1 updated on plan of care and expected duration. Pain level reassessed. 16:00 Reassessment: No changes from previously documented assessment. Patient and/or family ll1 updated on plan of care and expected duration. Pain level reassessed. Vital Signs: 10:45 BP 180 / ???; Pulse 160; Resp 40; Temp 105.1(R); Pulse Ox 100% on Simple Mask; Weight ll1 43.09 kg; 10:55 BP 103 / 63; ll1 11:47 BP 108 / 79; Pulse 117; Resp 28; Temp 103.7(C); Pulse Ox 100% on Simple Mask; ll1 12:11 BP 93 / 64; Pulse 110; Resp 27; Temp 102.0(C); Pulse Ox 100% ; ll1 13:29 BP 100 / 66; Pulse 105; Resp 28; Temp 100.1; Pulse Ox 100% ; ll1 15:20 BP 105 / 77; Pulse 96; Resp 24; Temp 99.7(C); Pulse Ox 97% on Simple Mask; ll1 12:11 no urine output in garza yet, Dr. Pantoja informed. ll1 ED Course: 10:40 Patient arrived in ED. iw 10:41 Erna Pantoja MD is Attending Physician. sd2 10:44 Arm band placed on Patient placed in an exam room, on a stretcher. ll1 10:46 Triage completed. ll1 10:55 Natanael Canchola, RN is Primary Nurse. ll1 11:16 Accessed peripheral vein via ultrasound, utilizing dynamic ultrasound technique using jd3 20G Nexia IV catheter ,sterile technique, per hospital protocol. Clean \T\ dry. Dressing intact. Good blood return. Flushes easily. placed to the left upper arm. 11:22 Garza cath inserted, using sterile technique, 16 Fr., by nv, balloon inflated. ll1 11:38 Accessed peripheral vein via ultrasound, utilizing dynamic ultrasound technique using jd3 18G Nexia IV Catheter ,sterile technique, per hospital protocol. Clean \T\ dry. Dressing intact. Good blood return. Flushes easily. placed to the right upper arm. 12:17 Chest Single View XRAY In Process Unspecified. EDMS 13:13 Calvin Quintero MD is Hospitalizing Provider. sd2 20:20 No provider procedures requiring assistance completed. Patient admitted, IV remains in tw5 place. 20:21 Patient has correct armband on for positive identification. tw5 Administered Medications: 11:03 Drug: Acetaminophen Suppository 650 mg Route: OH; ll1 12:22 Follow up: Response: No adverse reaction ll1 11:20 Drug: NS 0.9% (30 ml/kg) 30 ml/kg Route: IV; Rate: bolus; Site: left antecubital; ll1 11:40 Drug: Cefepime 1 grams Route: IVPB; Rate: 200 ml/hr; Infused Over: 30 mins; Site: left ll1 antecubital; 12:21 Follow up: Response: No adverse reaction; IV Status: Completed infusion; IV Intake: ll1 100ml 11:43 Drug: Midazolam 2 mg Route: IVP; Site: right antecubital; ll1 12:22 Follow up: Response: No adverse reaction ll1 12:22 Drug: vancoMYCIN 15 mg/kg Route: IVPB; Site: left antecubital; ll1 14:25 Follow up: Response: No adverse reaction; IV Status: Completed infusion; IV Intake: ll1 200ml Medication: 12:19 VIS not applicable for this client. ll1 Intake: 12:21 IV: 100ml; Total: 100ml. ll1 14:25 IV: 200ml; Total: 300ml. ll1 14:00 Dr. Pantoja informed of 30 ML urine output since garza was inserted. ll1 Output: 14:00 Urine: 30ml (Garza); Total: 30ml. ll1 14:00 Dr. Pantoja informed of 30 ML urine output since garza was inserted. ll1 Outcome: 13:14 Decision to Hospitalize by Provider. sd2 20:20 Admitted to ICU Report called to bedside report tw5 20:20 Condition: stable 20:20 Instructed on the need for admit. 20:21 Patient left the ED. tw5 Signatures: Dispatcher [employer] EDVaishali Olivarez RN RN iw Davies, Jonathon, RN RN jd3 Lewis, Lynsay, RN RN ll1 Wood, Tiffany tw5 Erna Pantoja MD MD sd2 Corrections: (The following items were deleted from the chart) 10:57 10:45 BP 180 / ???; Pulse 160bpm; Resp 40bpm; Pulse Ox 100% Simple Mask; Temp 105.1F ll1 Rectal; ll1 11:48 11:47 BP 108 / 79; Pulse 117bpm; Resp 28bpm; Pulse Ox 100% Simple Mask; ll1 ll1 15:20 13:29 BP 100 / 66; Pulse 105bpm; Resp 28bpm; Pulse Ox 100%; Temp 98.1F; ll1 ll1 15:22 12:11 BP 93 / 64; Pulse 110bpm; Resp 27bpm; Pulse Ox 100%; Temp 102.0F Catheter; ll1 ll1
[2022-07-11 14:24] LABS: Urine Blood Negative (Negative); Urine Glucose Negative (Negative); Urine Protein 2+ (Negative); Urine Specific Gravity >=1.030 (1.005-1.030)
[2022-07-11] MEDS ORDERED: POLYVINYL ALCOHOL 1.4% 15 ML EACH EYE PRN (15:59)
[2022-07-11] MEDS ORDERED: POLYETHYL GLY 3350 17 GM/DOSE PO PRN (15:59)
[2022-07-11] MEDS ORDERED: POLYVINYL ALCOHOL 1.4% 15 ML OPTH PRN (15:59)
[2022-07-11] MEDS ORDERED: JEVITY 1.2 CAL LIQUID 1,000 ML BOT FT SCH (16:00)
[2022-07-11] MEDS ORDERED: VANCOMYCIN 1 GM in NA CHLORIDE 0.9% 250 ML IVPB SCH (16:00)
--- NOTE | 2022-07-11 16:12 | P.HP ---
Certification for Inpatient Patient admitted to: Inpatient With expected LOS: >2 Midnights Patient will require the following post-hospital care: None Practitioner: I am a practitioner with admitting privileges, knowledge of patient current condition, hospital course, and medical plan of care. Services: Services provided to patient in accordance with Admission requirements found in Title 42 Section 412.3 of the Code of Federal Regulations Patient History Date of Service: 07/12/22 Reason for admission: fever and Tachycardia History of Present Illness: Patient is a 46-year-old female with a past medical history significant for anoxic brain injury, Paroxysmal sympathetic hyperactivity, trach dependence with PEG tube who presents with complaint of tachycardia and fever. Patient is nonverbal, contracted in upper and lower extremities. Patient is a resident of a senior care. Per nursing staff patient had diaphoresis and NH staff called EMS. Patients HR was noted to be in the 160s. No other associated signs and symptoms were reported. Symptoms are aggravated or relieved by nothing. Patient was brought to the hospital for medical evaluation. Allergies sulfate ion Allergy (Unknown, Verified 06/25/22 18:34) unknown albuterol Adverse Reaction (Unknown, Verified 06/25/22 18:34) elevated hr Home Medications: Baclofen 5 mg PO TID 04/22/22 Gabapentin [Neurontin*] 300 mg PO TID 04/22/22 Polyethylene Glycol 3350 [Miralax] 17 gm PO DAILY 04/22/22 cloNIDine HCL [Clonidine HCl] 0.1 mg PO TID 04/22/22 Ipratropium Neb [Atrovent*] 0.5 mg NEB [id number] amp 04/25/22 Sertraline [Zoloft*] 100 mg PO BEDTIME 04/29/22 Acetaminophen [Tylenol] 650 mg FT Q6H PRN 06/25/22 Acetylcyst 20% Resp [Mucomyst 20% (FOR RESPIRATORY)*] 3 ml IH TID 06/25/22 Carboxymethylcellulose Sodium [Artificial Tears] 15 ml OP QID PRN 06/25/22 Jevity 1.2 Danie Liquid 55 ml FT CONT 06/25/22 clonazePAM [Klonopin] 1 tab PO BID 06/25/22 Acetaminophen with Codeine [Acetaminop-Codeine 120-12 mg/5] 15 ml PO Q8H 07/11/22 Aspirin Chewable [Aspirin Chewable*] 81 mg PO DAILY 07/11/22 Atorvastatin Calcium [Lipitor] 20 mg PO BEDTIME 07/11/22 Metoprolol Tartrate [Lopressor] 25 mg PO BID 07/11/22 Rivaroxaban [Xarelto] 10 mg PO BEDTIME 07/11/22 - Past Medical/Surgical History Diabetic: No -: Anoxic Brain Injury, secondary to substance overdose/fentanyl -: Paroxysmal sympathetic hyperactivity -: h/o MRSA -: Tracheostomy dependent -: bilat pontine stroke -: peg tube -: Hysterectomy -: G Tube -: Tracheostomy Psychosocial/ Personal History: Patient lives at [facility]. She has a daughter. - Family History Father Notes: unable to assess r/t pt condition Mother -: Hypertension, Lung disease, Stroke, Cancer Notes: breast ca - Social History Alcohol use: No CD- Drugs: No Caffeine use: No Review of Systems is unable to be obtained (Patient is non verbal) Physical Examination - Physical Exam General: Alert, Unresponsive (Unresponsive to verbal commands ) HEENT: Normocephalic Neck: Supple, 2+ carotid pulse no bruit, JVD not distended Respiratory: Clear to auscultation bilaterally, Diminished Cardiovascular: No edema, No gallops Capillary refill: <2 Seconds Gastrointestinal: Normal bowel sounds, Soft and benign Musculoskeletal: No swelling, No erythema, No tenderness Integumentary: No rashes, No breakdown, No significant lesion Neurological: Abnormal speech (Non-verbal ) Lymphatics: No axilla or inguinal lymphadenopathy - Studies Laboratory Data (last 24 hrs) 07/11/22 11:15: PT 11.6, INR 1.05, APTT 31.2 07/11/22 11:15: Sodium 142, Potassium 4.7, BUN 35 H, Creatinine 1.76 H, Glucose 221 H, Total Bilirubin 0.5, AST 62 H, ALT 170 H, Alkaline Phosphatase 136 H 07/11/22 11:15: WBC 42.00 H*, Hgb 12.4, Hct 39.5, Plt Count 726 H Microbiology Data (last 24 hrs): 07/11/22 11:17 Nasopharnyx Influenza Type A Antigen Screen - Final 07/11/22 11:17 Nasopharnyx Influenza Type B Antigen Screen - Final Assessment and Plan - Plan --Sepsis with Septic shock. Blood cultures pending. Patient placed on antibiotics. Continue IV hydration. CT chest\abd\pelvis pending for possible source of infection -- Chronic respiratory failure with hypoxia. Patient is trach dependent. Continue antibiotics and neb treatment with Atrovent. Continue trach care. --History of anoxic brain injury. Pt with trach/PEG tube and has quadriplegia. Continue PEG tube feeding. Continue supportive care. --Vagina candidiasis. Patient placed on Diflucan -- HLD. Continue statin. --History of constipation. Continue home medication. --Tachycardia. Patient has a history of paroxysmal sympathetic hyperactivity syndrome. Pulse rate trended down in the ER. Telemetry to monitor for any significant arrhythmia. --Hypertension. Patient currently hypotensive. Will hold off on BP meds. Continue IV hydration. --Leukocytosis. Blood cultures pending. Continue antibiotics. --History of opioid overdose. Continue supportive care. --Stage II left buttocks pressure ulcer. Wound care consult initiated. -- DVT prophylaxis with Xarelto. Discharge Plan: Home Plan to discharge in: Greater than 2 days - Advance Directives Does patient have a Living Will: No Does patient have a Durable POA for Healthcare: No Physician Review: Patient Assessed, Agree with Above Assessment and Plan Critical Care: No
--- NOTE | 2022-07-11 17:02 | RAD REPORT ---
EXAM DESCRIPTION: CT - Chest Abd Pelvis Wo Con - 07/11/2022 4:40 pm CLINICAL HISTORY: Chest and abdomen pain. Sepsis COMPARISON: CT CHEST,ABD,PELVIS W/O dated 06/09/2022 TECHNIQUE: A limited noncontrast study was performed. All CT scans are performed using dose optimization technique as appropriate and may include automated exposure control or mA/KV adjustment according to patient size. FINDINGS: Tracheostomy tube is noted.Mild opacity is present in the medial left lung base likely rep resenting atelectasis.No pleural or pericardial effusion.No intrathoracic adenopathy. The liver, spleen, pancreas, adrenal glands and kidneys are within normal limits. Gastrostomy tube. No bowel obstruction, free air, free fluid or abscess. Normal appendix. Moderate stool present in the colon. Randolph catheter noted. No pathologic lymphadenopathy in the abdomen or pelvis. No worrisome osseous finding. IMPRESSION: Tracheostomy tube with probable atelectasis in the medial left lung base. Mild infiltrat e or aspiration in this region cannot be completely ruled out although it does appear moderately impr juan relative to 06/09/2022 prior study. Elsewhere, no acute abnormality detected.
[2022-07-11] MEDS: IPRATROPIUM BROM 0.5MG/2.5ML NEB SCH (19:50)
[2022-07-11] MEDS ORDERED: VANCOMYCIN 750 MG in NA CHLORIDE 0.9% 150 ML IVPB SCH (20:00)
[2022-07-11] MEDS ORDERED: IPRATROPIUM BROM 0.5MG/2.5ML ONE (20:00)
[2022-07-11] MEDS ORDERED: FLUCONAZOLE 100 MG TAB PO ONE (21:00)
[2022-07-11] MEDS ORDERED: ACETYLCYST 20% 4 ML VIAL IH SCH (21:00)
[2022-07-11] MEDS: CEFEPIME 1 GM in NA CHLORIDE 0.9% 100 ML IV SCH (21:21)
[2022-07-11] MEDS: NA CHLORIDE 0.9% 1,000 ML IV SCH (21:26)
[2022-07-11] MEDS: clonazePAM 0.5 MG TAB PO SCH (21:27)
[2022-07-11] MEDS: GABAPENTIN 300 MG CAP PO SCH (21:27)
[2022-07-11] MEDS: BACLOFEN 10 MG TAB PO SCH (21:39)
[2022-07-12] MEDS: IPRATROPIUM BROM 0.5MG/2.5ML NEB SCH ×4 (01:20→20:40)
[2022-07-12] MEDS: NA CHLORIDE 0.9% 1,000 ML IV SCH ×3 (03:00→18:18)
[2022-07-12 04:53] LABS: Absolute Lymphocytes (CBC) 1.6 K/uL (0.7-4.9); Hematocrit 28.2 % (36.0-45.0); Lymphocytes % 17.9 % (15.3-44.8); MCV 79.9 fL (80-100); MPV 8.1 fL (7.6-11.3); RBC Red Blood Cell Count 3.54 M/uL (3.86-4.86)
[2022-07-12 05:07] LABS: Albumin 2.5 g/dL (3.4-5.0); Bilirubin Total 0.2 mg/dL (0.2-1.0); Potassium 3.4 mmol/L (3.5-5.1); Protein, Total 7.1 g/dL (6.4-8.2)
[2022-07-12 05:40] LABS: Calcium Oxalate Crystals- Ur Few /HPF (None Seen); Specific Gravity > 1.030 (1.005-1.030); Urine Bacteria <20 /HPF (<20); Urine Bilirubin NEGATIVE (Negative); Urine Blood Negative (Negative); Urine Clarity Clear (Clear); Urine Color Yellow (Yellow); Urine Glucose NEGATIVE (Negative); Urine Granular Casts 0-5 /LPF (None Seen); Urine Mucus Slight /HPF (None Seen); Urine Protein 1+ (Negative); Urine Urobilinogen Normal (Normal)
[2022-07-12] MEDS: ACETYLCYST 20% 4 ML VIAL IH SCH ×3 (08:06→20:40)
[2022-07-12] MEDS: SERTRALINE HCL 100 MG TAB PO SCH (08:25)
[2022-07-12] MEDS: GABAPENTIN 300 MG CAP PO SCH ×3 (08:25→20:08)
[2022-07-12] MEDS: FLUCONAZOLE 100 MG TAB PO SCH (08:25)
[2022-07-12] MEDS: clonazePAM 0.5 MG TAB PO SCH ×2 (08:25→20:08)
[2022-07-12] MEDS: CEFEPIME 1 GM in NA CHLORIDE 0.9% 100 ML IV SCH ×2 (08:25→20:08)
[2022-07-12] MEDS: BACLOFEN 10 MG TAB PO SCH ×3 (08:37→20:07)
[2022-07-12] MEDS ORDERED: ENOXAPARIN 40 MG/0.4 ML SQ SCH (09:00)
[2022-07-12] MEDS: ASPIRIN EC 81 MG TAB PO SCH (09:00)
[2022-07-12] MEDS ORDERED: ATORVASTATIN 20 MG TAB PO SCH (09:00)
--- NOTE | 2022-07-12 13:04 | P.PN ---
Subjective Date of Service: 07/12/22 Chief Complaint: fever and Tachycardia Patient appear calm and at baseline today. Leukocytosis resolved. No fever today. Physical Examination - Vital Signs Temperature: 97.1 F Blood Pressure: 98/65 Pulse: 85 Respirations: 15 Pulse Ox (%): 100 - Studies Microbiology Data (last 24 hrs): 07/11/22 11:17 Nasopharnyx Influenza Type A Antigen Screen - Final 07/11/22 11:17 Nasopharnyx Influenza Type B Antigen Screen - Final Assessment And Plan - Current Problems (Diagnosis) (1) Chronic respiratory failure with hypoxia Current Visit: Yes Status: Acute (2) Decubitus ulcer of sacral region, unstageable Current Visit: Yes Status: Acute (3) S/P percutaneous endoscopic gastrostomy (PEG) tube placement Current Visit: No Status: Acute (4) Status post tracheostomy Current Visit: No Status: Acute (5) History of anoxic brain injury Current Visit: No Status: Chronic - Plan Physical Exam General: Nonverbal, awake HEENT: Tracheostomy collar Neck: Supple, JVD not distended Respiratory: Clear to auscultation bilaterally, adequate breath sounds bilaterally. Cardiovascular: No edema, heart sounds 1 and 2 are normal. Gastrointestinal: Normal bowel sounds, Soft and benign, nontender Musculoskeletal: No swelling, No erythema. Integumentary: Unstageable sacral decubitus ulcer Neurological: Non-verbal, quadriplegic. Plan: Leukocytosis, lactic acidosis and fever resolved. Sepsis was transient, indicating it was reactive rather than secondary to bacterial infection. Blood cultures are negative. Patient is currently stable at baseline. Continue antibiotics for now. Supportive measures Supplemental oxygen Tracheal suctioning as needed. Wound care for decubitus ulcer. Continue PEG tube feeding and monitor residual. Monitor CBC and BMP and follow blood cultures.
[2022-07-12] MEDS: HYDROCODONE/APAP 5/325 MG TAB PO PRN (13:44)
--- NOTE | 2022-07-12 14:05 | EKG ---
Test Date: 2022-07-11 Test Time: 10:59:14 Director Of Testing: MEASUREMENT RESULTS: Intervals: Rate: 159 NM: 114 QRSD: 72 QT: 298 QTc: 484 [place]: P: 80 NM: 114 QRS: 151 T: 79 INTERPRETIVE STATEMENTS: Sinus tachycardia with fusion complexes Indeterminate axis Cannot rule out Anterior infarct, age undetermined Abnormal ECG Compared to ECG 06/16/2022 02:46:25 Fusion complex(es) now present Indeterminate axis now present Supraventricular tachycardia no longer present Myocardial infarct finding still present Electronically Signed On 07-12-22 14:02:14 CDT by Eddie Freeman
[2022-07-12] MEDS: RIVAROXABAN 10 MG TABLET PO SCH (20:07)
[2022-07-12] MEDS: ATORVASTATIN 20 MG TAB PO SCH (20:08)
[2022-07-12] MEDS: JUVEN PACKET FT SCH (20:09)
[2022-07-13] MEDS: IPRATROPIUM BROM 0.5MG/2.5ML NEB SCH ×4 (01:43→20:00)
[2022-07-13 05:10] LABS: Absolute Lymphocytes (CBC) 1.3 K/uL (0.7-4.9); Hematocrit 26.2 % (36.0-45.0); Lymphocytes % 11.3 % (15.3-44.8); MCV 80.9 fL (80-100); MPV 8.3 fL (7.6-11.3); RBC Red Blood Cell Count 3.24 M/uL (3.86-4.86)
[2022-07-13 05:19] LABS: Potassium 3.5 mmol/L (3.5-5.1)
[2022-07-13] MEDS: NA CHLORIDE 0.9% 1,000 ML IV SCH ×2 (05:49→14:17)
[2022-07-13] MEDS: HYDROCODONE/APAP 5/325 MG TAB PO PRN (05:49)
[2022-07-13] MEDS ORDERED: LORazepam 2 MG/ML VIAL IV ONE (06:46)
[2022-07-13] MEDS: ACETYLCYST 20% 4 ML VIAL IH SCH ×3 (08:15→20:00)
[2022-07-13] MEDS: SERTRALINE HCL 100 MG TAB PO SCH (08:46)
[2022-07-13] MEDS: CEFEPIME 1 GM in NA CHLORIDE 0.9% 100 ML IV SCH ×2 (08:46→20:26)
[2022-07-13] MEDS: clonazePAM 0.5 MG TAB PO SCH ×2 (08:46→20:27)
[2022-07-13] MEDS: BACLOFEN 10 MG TAB PO SCH ×3 (08:46→20:28)
[2022-07-13] MEDS: GABAPENTIN 300 MG CAP PO SCH ×3 (08:46→20:27)
[2022-07-13] MEDS: FLUCONAZOLE 100 MG TAB PO SCH (08:46)
[2022-07-13] MEDS: HYDROMORPHONE HCL 0.5 MG/0.5 ML INJ IV PRN (08:55)
[2022-07-13] MEDS: ASPIRIN EC 81 MG TAB PO SCH (09:00)
[2022-07-13] MEDS: JUVEN PACKET FT SCH ×2 (09:44→20:27)
--- NOTE | 2022-07-13 12:50 | P.PN ---
Subjective Date of Service: 07/13/22 Chief Complaint: fever and Tachycardia Patient developed an episode of tachycardia and fever today. Physical Examination - Vital Signs Temperature: 100.4 F Blood Pressure: 124/86 Pulse: 135 Respirations: 20 Pulse Ox (%): 92 Assessment And Plan - Current Problems (Diagnosis) (1) Chronic respiratory failure with hypoxia Current Visit: Yes Status: Acute (2) Decubitus ulcer of sacral region, unstageable Current Visit: Yes Status: Acute (3) S/P percutaneous endoscopic gastrostomy (PEG) tube placement Current Visit: No Status: Acute (4) Status post tracheostomy Current Visit: No Status: Acute (5) History of anoxic brain injury Current Visit: No Status: Chronic - Plan Physical Exam General: Nonverbal, awake HEENT: Tracheostomy collar Neck: Supple, JVD not distended Respiratory: Clear to auscultation bilaterally, adequate breath sounds bilaterally. Cardiovascular: No edema, heart sounds 1 and 2 are normal. Gastrointestinal: Normal bowel sounds, Soft and benign, nontender Musculoskeletal: No swelling, No erythema. Integumentary: Unstageable sacral decubitus ulcer Neurological: Non-verbal, quadriplegic. Plan: Leukocytosis, lactic acidosis and fever resolved. Sepsis was transient, indicating it was reactive rather than secondary to bacterial infection. Blood cultures are negative. Patient is currently stable at baseline with occasional sympathetic discharged related to spinal cord injury. Continue antibiotics for now. Supportive measures Supplemental oxygen Tracheal suctioning as needed. Wound care for decubitus ulcer. Continue PEG tube feeding and monitor residual. Pain medication and Ativan as needed Monitor CBC and BMP and follow blood cultures.
[2022-07-13] MEDS: COLLAGENASE 30 GM OINTMENT TOP SCH (14:17)
[2022-07-13] MEDS: RIVAROXABAN 10 MG TABLET PO SCH (20:27)
[2022-07-13] MEDS: ATORVASTATIN 20 MG TAB PO SCH (20:27)
[2022-07-14] MEDS: NA CHLORIDE 0.9% 1,000 ML IV SCH ×2 (01:32→15:00)
[2022-07-14] MEDS: IPRATROPIUM BROM 0.5MG/2.5ML NEB SCH ×3 (01:40→14:39)
[2022-07-14 04:39] LABS: Absolute Lymphocytes (CBC) 1.4 K/uL (0.7-4.9); Hematocrit 28.8 % (36.0-45.0); Lymphocytes % 20.1 % (15.3-44.8); MCV 80.6 fL (80-100); MPV 8.3 fL (7.6-11.3); RBC Red Blood Cell Count 3.58 M/uL (3.86-4.86)
[2022-07-14 04:57] LABS: Albumin 1.9 g/dL (3.4-5.0); Bilirubin Total 0.2 mg/dL (0.2-1.0); Potassium 3.4 mmol/L (3.5-5.1); Protein, Total 5.7 g/dL (6.4-8.2)
[2022-07-14] MEDS: COLLAGENASE 30 GM OINTMENT TOP SCH (05:30)
[2022-07-14 05:56] VITALS: BMI 21.9
[2022-07-14] MEDS: ACETYLCYST 20% 4 ML VIAL IH SCH ×2 (08:19→14:39)
[2022-07-14] MEDS ORDERED: ASPIRIN 81 MG CHEWABLE TABLET PO SCH (09:00)
--- NOTE | 2022-07-14 09:19 | RAD REPORT ---
EXAM DESCRIPTION: RAD - Chest Single View - 07/14/2022 9:11 am CLINICAL HISTORY: Secretions/DC Planning COMPARISON: CT chest July 11, portable chest July 11 and June 26 TECHNIQUE: AP portable chest image was obtained 07/14/2022 9:11 am . FINDINGS: Trach tube is in place in good position. No additional tube or line identifiable. Lung lung volumes are low accentuating chronically hazy lower left lung field. Overlying breast soft tissue and breast implants contribute to the lower lung field density. Left base atelectasis is evide nt. Significant change in the lower left lung field is not seen. Heart and vasculature are normal. No measurable pleural effusion and no pneumothorax. No acute bony abnormality seen. No acute aortic findings suspected. IMPRESSION: Left base atelectasis is evident. No progressive lung parenchymal finding seen. No cardiomegaly or failure findings.
[2022-07-14 09:52] VITALS: O2SAT 99
[2022-07-14] MEDS: CEFEPIME 1 GM in NA CHLORIDE 0.9% 100 ML IV SCH (10:16)
[2022-07-14] MEDS: clonazePAM 0.5 MG TAB PO SCH (10:16)
[2022-07-14] MEDS: GABAPENTIN 300 MG CAP PO SCH ×2 (10:16→14:02)
[2022-07-14] MEDS: BACLOFEN 10 MG TAB PO SCH ×2 (10:16→14:02)
[2022-07-14] MEDS: SERTRALINE HCL 100 MG TAB PO SCH (10:16)
[2022-07-14] MEDS: JUVEN PACKET FT SCH (10:22)
[2022-07-14] MEDS: FLUCONAZOLE 100 MG TAB PO SCH (10:23)
[2022-07-14] MEDS: HYDROCODONE/APAP 5/325 MG TAB PO PRN (10:23)
[2022-07-14] MEDS ORDERED: ACETAMINOPHEN 325 MG TABLET FT PRN (11:01)
[2022-07-14] MEDS ORDERED: POTASSIUM CL SA 10 MEQ TAB PO ONE (11:17)
--- NOTE | 2022-07-14 13:04 | P.DS ---
Admission Date: 07/11/22 Discharge Date: 07/14/22 Disposition: TRANSFER TO HALF-WAY Discharge Condition: FAIR Reason for Admission: fever and Tachycardia - Problems (1) Chronic respiratory failure with hypoxia Current Visit: Yes Status: Acute (2) Decubitus ulcer of sacral region, unstageable Current Visit: Yes Status: Acute (3) S/P percutaneous endoscopic gastrostomy (PEG) tube placement Current Visit: No Status: Acute (4) Status post tracheostomy Current Visit: No Status: Acute (5) History of anoxic brain injury Current Visit: No Status: Chronic Brief History of Present Illness: Patient is a 46-year-old female with a past medical history significant for anoxic brain injury, Paroxysmal sympathetic hyperactivity, trach dependence with PEG tube who presented with a report of tachycardia and fever. Patient is nonverbal, contracted in upper and lower extremities. Patient is a resident of a fdc. Per nursing staff patient had diaphoresis and [place] staff called EMS. Patients HR was noted to be in the 160s. No other associated signs and symptoms were reported. Chest x-ray shows possible atelectasis and at baseline. White cell count elevated to 40,000. Patient diagnosed with sepsis and admitted for further management. Hospital Course: Patient admitted to the ICU for close monitoring Her leukocytosis, lactic acidosis and fever resolved within 24 hours Sepsis was transient, indicating it was reactive rather than secondary to bacterial infection. Blood cultures were negative. Chest x-ray showed atelectasis which was unchanged from repeat imaging, no infiltrate. Tracheal secretions were well controlled and patient was stable on her baseline oxygen. Patient is currently stable at baseline with occasional sympathetic discharged related to spinal cord injury. She was treated with antibiotics during the hospital stay. PEG tube feeding was continued with no issues Patient is currently at baseline and deemed stable for discharge. Vital Signs/Physical Exam: Temp Pulse Resp BP Pulse Ox 97.1 F 104 H 18 130/83 95 07/14/22 08:00 07/14/22 10:00 07/14/22 11:23 07/14/22 10:00 07/14/22 11:23 General: In no apparent distress, Other (Awake) HEENT: Mucous membr. moist/pink Neck: Other (Tracheostomy collar) Respiratory: Clear to auscultation bilaterally, Normal air movement Cardiovascular: Regular rate/rhythm, Normal S1 S2 Gastrointestinal: Soft and benign, Non-distended, No tenderness Musculoskeletal: No swelling Integumentary: Other (Unstageable sacral decubitus ulcer) Neurological: Other (Quadriplegia) Laboratory Data at Discharge: WBC 7.00 K/uL (4.3-10.9) 07/14/22 04:09 Hgb 9.0 g/dL (12.0-15.0) L D 07/14/22 04:09 Hct 28.8 % (36.0-45.0) L 07/14/22 04:09 Plt Count 247 K/uL (152-406) 07/14/22 04:09 PT 11.6 SECONDS (9.5-12.5) 07/11/22 11:15 INR 1.05 07/11/22 11:15 APTT 31.2 SECONDS (24.3-36.9) 07/11/22 11:15 Sodium 144 mmol/L (136-145) 07/14/22 04:09 Potassium 3.4 mmol/L (3.5-5.1) L 07/14/22 04:09 BUN 23 mg/dL (7-18) H 07/14/22 04:09 Creatinine 0.41 mg/dL (0.55-1.3) L 07/14/22 04:09 Glucose 139 mg/dL (74-106) H 07/14/22 04:09 Total Bilirubin 0.2 mg/dL (0.2-1.0) 07/14/22 04:09 AST 22 U/L (15-37) 07/14/22 04:09 ALT 51 U/L (12-78) 07/14/22 04:09 Alkaline Phosphatase 87 U/L (45-117) 07/14/22 04:09 Home Medications: Baclofen 5 mg PO TID 04/22/22 Gabapentin [Neurontin*] 300 mg PO TID 04/22/22 Polyethylene Glycol 3350 [Miralax] 17 gm PO DAILY 04/22/22 cloNIDine HCL [Clonidine HCl] 0.1 mg PO TID 04/22/22 Ipratropium Neb [Atrovent*] 0.5 mg NEB [id number] amp 04/25/22 Sertraline [Zoloft*] 100 mg PO BEDTIME 04/29/22 Acetaminophen [Tylenol] 650 mg FT Q6H PRN 06/25/22 Acetylcyst 20% Resp [Mucomyst 20% (FOR RESPIRATORY)*] 3 ml IH TID 06/25/22 Carboxymethylcellulose Sodium [Artificial Tears] 15 ml OP QID PRN 06/25/22 Jevity 1.2 Danie Liquid 55 ml FT CONT 06/25/22 clonazePAM [Klonopin] 1 tab PO BID 06/25/22 Acetaminophen with Codeine [Acetaminop-Codeine 120-12 mg/5] 15 ml PO Q8H 07/11/22 Aspirin Chewable [Aspirin Chewable*] 81 mg PO DAILY 07/11/22 Atorvastatin Calcium [Lipitor*] 20 mg PO BEDTIME 07/11/22 Metoprolol Tartrate [Lopressor*] 25 mg PO BID 07/11/22 Rivaroxaban [Xarelto*] 10 mg PO BEDTIME 07/11/22 Collagenase [Santyl Ointment*] 1 appl TOP DAILY tube 07/14/22 Nahun [Nahun*] 1 pkt FT BID 07/14/22 Diet: Tube feed Activity: Fall precautions Followup: NONE,NONE [Primary Care Provider] - Time spent managing pt's care (in minutes): 34
[2022-07-14] MEDS ORDERED: cloNIDine HCL 0.1 MG TAB PO SCH (14:00)
[2022-07-14] MEDS: HYDROMORPHONE HCL 0.5 MG/0.5 ML INJ IV PRN (14:00)
[2022-07-14 18:04] VITALS: TEMP 97.2
[2022-07-14 19:55] VITALS: BP 108/77
[2022-07-14] MEDS ORDERED: METOPROLOL TAR 25 MG TAB PO SCH (21:00)
== END 2022-07-14 19:50 | DRG 871 ==
LOC: ER 10:35 → ERHOLD 15:09 → 3RD-ICU 19:11
PROVIDERS: ADMIT Hospitalist; ATTEND Internal Medicine
DX: A41.9 Sepsis, unspecified organism (principal); G82.50 Quadriplegia, unspecified; R65.21 Severe sepsis with septic shock; J96.11 Chronic respiratory failure with hypoxia; E87.20 Acidosis, unspecified; J98.11 Atelectasis; I10 Essential (primary) hypertension; K59.00 Constipation, unspecified; E78.5 Hyperlipidemia, unspecified; L89.322 Pressure ulcer of left buttock, stage 2; B37.31 Acute candidiasis of vulva and vagina; Z93.1 Gastrostomy status; Z93.0 Tracheostomy status; Z88.8 Allergy status to other drugs, medicaments and biological substances; Z86.73 Personal history of transient ischemic attack (TIA), and cerebral infarction without residual deficits; Z86.14 Personal history of Methicillin resistant Staphylococcus aureus infection; Z79.82 Long term (current) use of aspirin; Z79.01 Long term (current) use of anticoagulants; Z79.899 Other long term (current) drug therapy; Z90.710 Acquired absence of both cervix and uterus; Z20.822 Contact with and (suspected) exposure to COVID-19
CPT/HCPCS: 36415; 51702; 71045; 71250; 74176; 80048; 80053; 81001; 81003; 82550; 82805; 82947; 83605; 84145; 85025; 85610; 85730; 87040; 87804; 93005; 94640; 94760; 99251; 99291; 99292; J0692; J1170; J2250; J3590; J7030; J7040; U0003

== ENCOUNTER 2022-07-22 14:37 | Emergency (ER) | payer OTHER, SELFPAY ==
--- OUTSIDE RECORDS SUMMARY | 2022-07-22 14:57 | XMS REPORT | Continuity of Care Document ---
:1975 Author Organization [facility] t Address [address] [place] [address] Care Team Providers Name Role Phone Rosaura Attending Clinician Unavailable Maynor Palmer MD Attending Clinician Unavailable Belem Griggs MD Attending Clinician Unavailable Aaron Moreau MD Attending Clinician Alisson Koo MD Attending Clinician MAYNOR PALMER Attending Clinician Unavailable ALISSON KOO Attending Clinician Unavailable BELEM GRIGGS Attending Clinician Unavailable Keyshawn Betancourt Attending Clinician [phone] Magda Duval Attending Clinician [phone] Lorna Douglass Attending Clinician Unavailable Rosaura Admitting Clinician Unavailable BELEM GRIGGS Admitting Clinician Unavailable Manuel Rose Admitting Clinician Unavailable Payers Payer Name Policy Type Policy Number Effective Date Expiration Date S [facility] MEDICAID - 000 [id number] - PENDING Problems Condition Condition Condition Status Onset Resolution Last Treating Co mments Source Name Details Category Date Date Treatment Clinician Date Severe Severe Disease Active [facility] Center Unintentio Unintentio Problem Active [facility] nal weight nal Weight 9-21 Me dical loss Loss 00:00: 00 Total Total Problem Active [facility] Self-care 14 Medi simone deficit Deficit 00:00: 00 Lives in a Lives in a Problem Active [facility] nursing Nursing 9-14 Medical home Home 00:00: 00 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 Dysreflexi 06-02 Me dical a a 00:00: 00 Irritant [...] Hypercoagu Problem Active [facility] lability lability 05-06 Medica l state State 00:00: 00 Restlessne Restlessne Problem Active [facility] ss and ss and 12 Medical agitation Agitation 00:00: 00 Tetraplegi Tetraplegi Problem Active [facility] a a 12 Medical 00:00: 00 Dysphagia Dysphagia Problem Active [facility] via as a late as a Late 12 Medi simone effect of Effect of 00:00: cerebrovas Cerebrovas 00 cular cular accident Accident Pneumonia Pneumonia Problem Active Emily via -12 Medical 00:00: 00 Spasm Spasm Problem Active [...] Severe Ventricul [facility] Sulfate 00:00: Tachycard Medica l 00 ia Center ALBUTERO Allergy Active High [facility] SULFATE 00:00: Medical 00 Center No DA Active [facility] Allergy -18 [facility] Informat 00:00: Healthc ion [address] [facility] [address] No Known DA Active [facility] Allergie 18 [facility] s 00:00: Healthc [address] Social History Social Habit Start Date Stop Date Quantity Comments Source Tobacco use and 2022-06-21 2022-06-[address] [facility] exposure 00:00:00 00:00:00 [facility] Center Alcohol intake 2022-06-21 2022-06-21 Ex-drinker [facility] 00[facility]:00 00:00:00 (finding) Medical Center Sex Assigned At [address] [facility] 00:00[facility]00 00[facility]00 [facility] Smoking Status Start Date Stop Date Source Former smoker 2022-06-21 00:00:00 2022-06-21 00:00:[address] [facility] Medications Ordered Filled Start Stop Current Ordering Indication Dosage Frequency Signature Comments Components Source Medication Medication Date Date Medication? Clinician (SIG) Name Name acetylcyste 2021-09 Yes thick 4mL Q.[id number] Take [address] [address] ine 20% 0-01 bronchial [id number] by L ukes (MucoMYST) 15:09: secretions 3D nebulizati Medical 200 mg/mL 23 on 3 Center (20 %) (three) nebulizer times solution daily. baclofen 2021-09 Yes muscle 5mg Q.[id number] Take [address] (LIORESAL) 0-01 spasticity [id number] by mouth 3 [facility] 10 MG 15:09: [...] Center times daily. cloNIDine 2021-09 Yes .1mg Q.[id number] Take 0.[address] HCL 0-01 [id number] mg by [facility] (CATAPRES) 15:09: 3D mouth 3 Medi simone 0.1 MG 23 (three) Center tablet times daily. gabapentin 2021-09 Yes 100mg Q.[id number] Take [address] [address] (NEURONTIN) 0-01 [id number] mg by L ukes 100 MG 15:09: [...] 15:09: mouth Medical tablet 23 daily. Center acetylcyste 2021-09 Yes thick 4mL Q.[id number] Take [address] ine 20% 0-01 bronchial [id number] by [facility] (MucoMYST) 15:09: secretions 3D nebulizati Medical 200 mg/mL 23 on 3 Center (20 %) (three) nebulizer times solution daily. baclofen 2021-09 Yes muscle 5mg Q.[id number] Take [address] [address] (LIORESAL) 0-01 spasticity [id number] by mouth 3 [facility] 10 MG 15:09: [...] Center times daily. cloNIDine 2021-09 Yes .1mg Q.[id number] Take 0.[address] HCL 0-01 [id number] mg by [facility] (CATAPRES) 15:09: 3D mouth 3 Medi simone 0.1 MG 23 (three) Center tablet times daily. gabapentin 2021-09 Yes 100mg Q.[id number] Take [address] (NEURONTIN) 0-01 [id number] mg by L ukes 100 MG 15:09: [...] 00:00 nightly. Medical tablet 42 :00 Center metoprolol 0 2021- No 25mg Q.5D Take [address] tartrate 06-24 by mouth 2 Luke s (LOPRESSOR) 10:03: 00:00 (two) Medi simone 25 MG 42 :00 times Center tablet daily. rivaroxaban 2021- No QD Take by [facility] (XARELTO) 06-24 mouth [facility] 10 mg 10:03: 00:00 nightly. Medical tablet 42 :00 [place] neomycin-ba 0 Yes 1{packe Q.5D Apply [address] citracnZn-p 9-30 t} packet [facility] olymyxnB 00:00: topically Medi simone (NEOSPORIN) 00 2 (two) Cente r 3.5-400-5,0 times 00 daily. mg-unit-uni t OiPk packet enoxaparin 0 Yes 40mg Q24H Inject 0.[address] (LOVENOX) 9-30 mLs (40 mg Luke s 40 mg/0.4 00:00: total) Medica l mL Syrg 00 subcutaneo Center usly daily. neomycin-ba Yes 1{packe Q.5D Apply [address] citracnZn-p 9-30 t} packet [facility] olymyxnB 00:00: topically Medi simone (NEOSPORIN) 00 2 (two) Cente r 3.5-400-5,0 times 00 daily. mg-unit-uni t OiPk packet enoxaparin 0 Yes 40mg Q24H Inject 0.[address] (LOVENOX) 9-30 mLs (40 mg Luke s 40 mg/0.4 00:00: total) Medica l mL Syrg 00 [facility] [place] Center usly daily. propranoloL 2022- Yes 60mg Take [address] [facility] (INDERAL) 9-24 06-30 tablet (60 Lisseth es 60 MG 00:00: 23:59 mg total) Medica l tablet 00 :00 by mouth Center every 8 (eight) hours. propranoloL 2022- Yes 60mg Take [address] [facility] (INDERAL) 06-24 09-30 tablet (60 Lisseth es 60 MG 00:00: 23:59 mg total) Medica l tablet 00 :00 by mouth Center every 8 (eight) hours. polyvinyl 2021- Yes 1[drp] Place [address] alcohol 9-30 10-30 drop into [facility] (LIQUITEARS 00:00: 23:59 both eyes Medical ARTIFICIAL 00 :00 4 (four) Cente r TEARS) 1.4 times % daily as ophthalmic needed for solution up to 30 days. polyvinyl 2021- Yes 1[drp] Place [address] alcohol 9-30 10-30 drop into [facility] (LIQUITEARS 00:00: 23:59 both eyes Medical ARTIFICIAL 00 :00 4 (four) Cente r TEARS) 1.4 times % daily as ophthalmic needed for solution up to 30 days. Miralax 17 Miralax 17 No 17g Q1D Miralax 17 [facility] gram/dose gram/dose gram/dose Medical oral powder oral powder oral Take 17 g Take 17 g powder every day every day Take 17 g by oral by oral every day route. route. by oral route. sertraline sertraline No 1 Q1D sertraline [facility] [...] route at route at bedtime. bedtime. bedtime. acetaminoph acetaminoph No 15mL Q8H acetaminop [facility] en 120 en 120 hen 120 Medical mg-codeine mg-codeine mg-codeine 12 mg/5 mL 12 mg/5 mL 12 mg/5 mL oral oral oral solution solution solution Take 15 mL Take 15 mL Take 15 mL every 8 every 8 every 8 hours by hours by hours by oral route oral route oral route for 30 for 30 for 30 days. days. days. acetylcyste acetylcyste No acetylcyst [facility] ine 200 [...] oral day by route. route. oral route. clonazepam clonazepam No 1 TID clonazepam [facility] 0.5 mg 0.5 mg 0.5 mg Medical tablet Take tablet Take tablet 1 tablet 3 1 tablet 3 Take 1 times a day times a day tablet 3 by oral by oral times a route for route for day by 30 days. 30 days. oral route for 30 days. clonidine clonidine No 1 TID clonidine [facility] HCl 0.1 mg HCl 0.1 mg HCl 0.1 mg Medical tablet Take tablet Take tablet 1 tablet 3 1 tablet 3 Take 1 times a day times a day tablet 3 by oral by oral times a route. route. day by oral route. gabapentin gabapentin No 1capsul TID gabapentin [facility] 300 mg 300 mg e(s) 300 mg Medical capsule capsule capsule Take 1 Take 1 Take 1 capsule 3 capsule 3 capsule 3 times a day times a day times a by oral by oral day by route. route. oral route. ipratropium ipratropium No 1mL Q6H ipratropiu [facility] bromide bromide m bromide Medi simone 0.02 % 0.02 % 0.02 % solution solution solution for for for inhalation inhalation inhalation Inhale 1 mL Inhale 1 mL Inhale 1 every 6 every 6 mL every 6 hours by hours by hours by inhalation inhalation inhalation route. route. route. metoprolol metoprolol No 1 BID metoprolol [facility] tartrate 25 tartrate 25 tartrate Medical mg tablet mg tablet 25 mg Take 1 Take 1 tablet tablet tablet Take 1 twice a day twice a day tablet by oral by oral twice a route. route. day by oral route. Miralax 17 Miralax 17 No 17g Q1D Miralax 17 [facility] gram/dose gram/dose gram/dose Medical oral powder oral powder oral Take 17 g Take 17 g powder every day every day Take 17 g by oral by oral every day route. route. by oral route. sertraline sertraline No 1 Q1D sertraline [facility] 100 mg 100 mg 100 mg Medical tablet Take tablet Take tablet 1 tablet 1 tablet Take 1 every day every day tablet by oral by oral every day route. route. by oral route. acetylcyste acetylcyste No acetylcyst [facility] ine 200 [...] by inhalation inhalation inhalation route. route. route. Vital Signs Vital Name Observation Time Observation Value Comments Source BP Diastolic 2022-07-05 00:00:00 64 mm[Hg] [facility] Height 2022-07-05 00:00:00 62 [in_i] [place] [facility] BMI (Body Mass Index) 2022-07-05 00:00:00 19.8 kg/m2 [facility] BP Systolic 2022-07-05 00:00:00 108 mm[Hg] [facility] Body Weight 2022-07-05 00:00:00 1728 [oz_av] [place] [facility] WEIGHT 2022-06-24 05:41:00 54.749 kg WEIGHT 2022-06-21 [...] kg BP Diastolic 2022-06-07 00:00:00 78 mm[facility]Hg[facility] Height 2022-06-07 00:00:00 62 [in_i] [place] [facility] BMI (Body Mass Index) 2022-06-07 00:00:00 20.2 kg/m2 [facility] BP Systolic 2022-06-07 00:00:00 135 mm[Hg] [place] [facility] Body Weight 2022-06-07 00:00:00 1768 [oz_av] [place] [facility] Heart rate 2022-06-25 12:00:00 88 /min [facility] Systolic blood 2022-06-25 11:00:00 105 mm[Hg] [facility] Diastolic blood 2022-06-25 11:00:00 63 mm[Hg] [facility] Body temperature 2022-06-25 11:00:00 36.5 Pari [facility] Respiratory rate 2022-06-25 11:00:00 19 /min [facility] Oxygen saturation in 2022-06-25 11:00:00 98 /min [facility] Arterial blood by Medical Ce nter Pulse oximetry Body weight 2022-06-24 05:41:00 54.749 kg [facility] BMI 2022-06-24 05:41:00 21.38 kg/m2 [facility] Body height 2022-06-16 09:30:00 160 cm [facility] Procedures Procedure Date / Time Performing Clinician Source Performed POCT-GLUCOSE METER 2022-06-25 11:16:00 Alisson Koo [facility] POCT-GLUCOSE METER 2022-06-25 06:17:00 Opal, [facility] PHOSPHORUS 2022-06-25 05:29:00 CiccarellShira maloney [facility] CBC W/PLT COUNT & AUTO 2022-06-25 05:29:00 Bilcasi [facility] DIFFERENTIAL [facility] COMPREHENSIVE METABOLIC 2022-06-25 05:29:00 Bilut, [facility] PANEL [facility] TSH/FREE T4 IF INDICATED 2022-06-25 05:29:00 Opal [facility] CBC W/PLT COUNT & AUTO 2022-06-25 05:29:00 [facility] POCT-GLUCOSE METER 2022-06-25 00:39:00 Opal [facility] POCT-GLUCOSE METER 2022-06-24 18:00[facility] 2022-06-24 15:43:00 Opal [facility] CBC W/PLT COUNT & AUTO 2022-06-24 15:41:00 Opal [facility] PROTHROMBIN TIME/INR 2022-06-24 15:41:00 Opal [facility] CBC W/PLT COUNT & AUTO 2022-06-24 15:41:00 Opal [facility] XR CHEST 1 VIEW PORTABLE 2022-06-24 14:22:00 Opal [facility] BEDSIDE Center ECG 12-LEAD 2022-06-24 13:42:56 Opal [facility] ECG 12-LEAD 2022-06-24 13:42:56 Unknown, Hl7 [facility] ECG 12-LEAD 2022-06-24 13:42:56 Unknown, Hl7 [facility] ECG 12-LEAD 2022-06-24 13:41:12 Unknown, Hl7 [facility] ECG 12-LEAD 2022-06-24 13:41:12 Unknown, Hl7 [facility] POCT-GLUCOSE METER 2022-06-24 11:13:00 Opal [facility] POCT-GLUCOSE METER 2022-06-24 06:34:00 Opal [facility] PHOSPHORUS 2022-06-24 03:37:00 [facility] W/PLT COUNT & AUTO 2022-06-24 03:37:00 Bilal [facility] Medical [facility]ENTIAL [facility] 2022-06-24 03:37:00 [facility] PANEL [facility] CBC W/PLT COUNT & AUTO 2022-06-24 03:37:00 [facility] POCT-GLUCOSE METER 2022-06-24 00:27:00 Opal [facility] POCT-GLUCOSE METER 2022-06-23 17:44:00 Opal [facility] SARS-COV2/RT-PCR ([facility] 2022-06-23 13:18:00 Shira Farmer [facility] POCT-GLUCOSE METER 2022-06-23 11:05:00 Opal [facility] POCT-GLUCOSE METER 2022-06-23 06:57:00 pOal [facility] POCT-GLUCOSE METER 2022-06-23 06:35:00 Opal [facility] PHOSPHORUS 2022-06-23 03:36:00 Ciccarerebecca [facility] CBC W/PLT COUNT & AUTO 2022-06-23 03:36:00 Bilal [facility]ENTIAL [facility] 2022-06-23 03:36:00 Bilut, [facility] PANEL [facility] CBC W/PLT COUNT & AUTO 2022-06-23 03:36:00 Bilal [facility] DIFFERENTIAL [facility] POCT-GLUCOSE METER 2022-06-22 23:34:00 Opal [facility] POCT-GLUCOSE METER 2022-06-22 17:55:00 Opal [facility] EEG 2-12 HR CONTINUOUS 2022-06-22 14:06:00 Opal [facility] Medical MONITORING WITH VIDEO Center POCT-GLUCOSE METER 2022-06-22 11:43:00 Opal [facility] VANCOMYCIN LEVEL, TROUGH 2022-06-22 09:36:00 [facility]SE [facility] 2022-06-22 07:38:00 Opal [facility] EEG 12-26 HR CONTINUOUS 2022-06-22 06:38:00 Opal [facility] MONITORING WITH VIDEO Center POCT-GLUCOSE METER 2022-06-22 04:35:00 Opal [facility] PHOSPHORUS 2022-06-22 03:01:00 Marleny [facility] CBC W/PLT COUNT & AUTO 2022-06-22 03:01:00 Morgan [facility] DIFFERENTIAL [facility] COMPREHENSIVE METABOLIC 2022-06-22 03:01:00 Artemiout [facility] PANEL [facility] CBC W/PLT COUNT & AUTO 2022-06-22 03:01:00 Morgan [facility] DIFFERENTIAL [facility] POCT-GLUCOSE METER 2022-06-22 00:24:00 Opal [facility] POCT-GLUCOSE METER 2022-06-21 17:59:00 Opal [facility] POCT-GLUCOSE METER 2022-06-21 10:57:00 Opal [facility] POCT-GLUCOSE METER 2022-06-21 06:42:00 Opal [facility] PHOSPHORUS 2022-06-21 04:04:00 CiccarelloShira [facility] CBC W/PLT COUNT & AUTO 2022-06-21 04:04:00 [facility]al[facility]ount[facility]FFERENTIAL [facility] 2022-06-21 04:04:00 Bilal [facility] PANEL [facility] CBC W/PLT COUNT & AUTO 2022-06-21 04:04:00 Bilal [facility] DIFFERENTIAL [facility] POCT-GLUCOSE METER 2022-06-21 02:03:00 Alisson Koo [facility] CT BRAIN WITHOUT IV 2022-06-20 21:41:00 [facility] [place] HIGH SENSITIVITY 2022-06-20 20:18:00 [facility] TROPONIN I [facility] 2022-06-20 20:14:00 Lucy, [facility] CBC W/PLT COUNT & AUTO 2022-06-20 20:14:00 Bruce-Shiv [facility] DIFFERENTIAL [place] LACTIC ACID, VENOUS 2022-06-20 20:14:00 Bruce-Ittzaid, [facility] MAGNESIUM 2022-06-20 20:14:00 SachaIttzaid, [facility] PHOSPHORUS 2022-06-20 20:14:00 Lucy [facility] CBC W/PLT COUNT & AUTO 2022-06-20 20:14:00 Lucy [facility] DIFFERENTIAL [place] POCT-BLOOD GASES, VENOUS 2022-06-20 20:04:00 Opal [facility] POCT-SODIUM 2022-06-20 20:04:00 Opal [facility] POCT-POTASSIUM 2022-06-20 20:04:00 Opal [facility] POCT-HEMOGLOBIN 2022-06-20 20:04:00 Opal [facility] POCT-HEMATOCRIT 2022-06-20 20:04:00 Opal [facility] POCT-GLUCOSE 2022-06-20 20:04:00 Opal [facility] XR CHEST 1 VIEW PORTABLE 2022-06-20 19:46:00 Opal [facility] BEDSIDE [place] POCT-GLUCOSE METER 2022-06-20 19:22:00 Opal [facility] POCT-GLUCOSE METER 2022-06-20 17:49:00 Opal [facility] POCT-GLUCOSE METER 2022-06-20 10:54:00 Opal [facility] POCT-GLUCOSE METER 2022-06-20 05:34:00 Opal [facility] PHOSPHORUS 2022-06-20 03:29:00 [facility]UCOSE METER 2022-06-20 00:18:00 Opal [facility] POCT-GLUCOSE METER 2022-06-19 18:23:00 Opal [facility] POCT-GLUCOSE METER 2022-06-19 12:01:00 Opal [facility] POCT-GLUCOSE METER 2022-06-19 06:46:00 Opal [facility] CBC (HEMOGRAM ONLY) 2022-06-19 05:19:00 [facility] BASIC METABOLIC PANEL 2022-06-19 05:19:00 [facility] MAGNESIUM 2022-06-19 05:19:00 [facility] 2022-06-19 05:19:00 [facility] POCT-GLUCOSE METER 2022-06-19 00:34:00 Opal [facility] POCT-GLUCOSE METER 2022-06-18 18:12:00 Opal [facility] VANCOMYCIN LEVEL, TROUGH 2022-06-18 18:02:00 EverardoShira maloney [facility] POCT-GLUCOSE METER 2022-06-18 12:04:00 Opal [facility] POCT-GLUCOSE METER 2022-06-18 05:56:00 Aaron Moreau [facility] CBC (HEMOGRAM ONLY) 2022-06-18 04:58:00 [facility] METABOLIC PANEL 2022-06-18 04:58:00 [facility] MAGNESIUM 2022-06-18 04:58:00 Marleny [facility] PHOSPHORUS 2022-06-18 04:58:00 Marleny [facility] POCT-GLUCOSE METER 2022-06-17 21:47:00 Aaron Moreau [facility] POCT-GLUCOSE METER 2022-06-17 19:12:00 Aaron Moreau [facility] BASIC METABOLIC PANEL 2022-06-17 16:44:00 [facility] HEMOGLOB[facility] AND 2022-06-17 16:44:00 [facility] 2022-06-17 14:53:00 [facility] BASIC METABOLIC PANEL 2022-06-17 13:54:00 [facility] 2D ECHO W/ DOPPLER 2022-06-17 11:23:00 [facility] POCT-GLUCOSE METER 2022-06-17 11:12:00 Belem Griggs [facility] VENOUS DOPPLER LEGS 2022-06-17 10:00:00 [facility] POCT-GLUCOSE METER 2022-06-17 05:52:00 Indu [facility] CBC (HEMOGRAM ONLY) 2022-06-17 04:05:00 Marleny [facility] BASIC METABOLIC PANEL 2022-06-17 04:05:00 Marleny [facility] MAGNESIUM 2022-06-17 04:05:00 Marleny [facility] PHOSPHORUS 2022-06-17 04:05:00 Marleny [facility] XR CHEST 1 VIEW PORTABLE 2022-06-17 00:55:00 Shira [facility] POCT-GLUCOSE METER 2022-06-16 23:35:00 [facility]SE METER 2022-06-16 17:19:00 Indu [facility] CT BRAIN WITHOUT IV 2022-06-16 13:55:00 Marleny [facility] CONTRAST [facility] XR CHEST 1 VIEW PORTABLE 2022-06-16 13:05:00 Shira Farmer [facility] BLOOD CULTURE 2022-06-16 12:20:00 [facility] BLOOD CULTURE 2022-06-16 10:58:00 Shira Farmer [facility] SPUTUM CULTURE + GRAM 2022-06-16 09:48:00 [facility] systemrebecca [facility] SARS-COV2/RT-PCR ([facility] & 2022-06-16 09:48:00 Shira Farmer [facility] REF [facility] CBC (HEMOGRAM ONLY) 2022-06-16 09:48:00 Marleny [facility] BASIC METABOLIC PANEL 2022-06-16 09:48:00 Marleny [facility] HEPATIC FUNCTION PANEL 2022-06-16 09:48:00 [facility] LACTIC ACID, VENOUS 2022-06-16 09:48:00 [facility] PROCALCITONIN 2022-06-16 09:48:00 [facility] URINALYSIS W/ REFLEX 2022-06-16 09:48:[address] [facility] S t [facility] URINE CULTURE [facility] BLOOD GAS, VENOUS 2022-06-16 09:48:00 [facility] EKG-SCANNED 2022-06-16 00:00:00 Nubia Mitchell [facility] [id number] 2022-03-21 00:00:00 MITVI [facility] [id number] 2022-03-20 00:00:00 MAIAN01 [facility] [id number] 2022-02-17 00:00:00 LEESE.01 [facility] [id number] 2022-02-17 00:00:00 LEESE.01 [facility] [id number] 2022-02-17 00:00:00 LEESE.01 [facility] Tracheostomy 2022-02-17 00:00:00 [facility] [id number] 2022-02-09 00:00:00 LEESE.01 [facility] Gastrostomy [facility] Plan of Care Planned Activity Planned Date Details Comments Source Future Scheduled 2022-05-26 INFLUENZA VACCINE (#1) [facility] 00:00:00 [code = INFLUENZA Medical Ce nter VACCINE (#1)] Future Scheduled 2022-05-26 INFLUENZA VACCINE (#1) [facility] 00:00:00 [code = INFLUENZA Medical Ce nter VACCINE (#1)] Future Scheduled 2021 Lipid panel (procedure) [facility] 00:00:00 [code = 00914530] Medical Ce nter Future Scheduled 2021 Lipid panel (procedure) [facility] 00:00:00 [code = 61685350] Medical Ce nter Future Scheduled 2021-09-[address] [facility] 00:00:00 (12+) [code = Medical Center DEPRESSION SCREENING (12+)] Future Scheduled 2021-09-[address] [facility] 00:00:00 (12+) [code = Medical Center DEPRESSION SCREENING (12+)] Future Scheduled 1997 Screening for malignant [facility] 00:00:00 neoplasm of cervix Medical C enter (procedure) [code = 623136016] Future Scheduled 1997 Screening for malignant [facility] 00:00:00 neoplasm of cervix Medical C enter (procedure) [code = 735485593] Future Scheduled 1995-12-27 DTAP/TDAP/TD VACCINES [facility] 00:00:00 (1 - Tdap) [code = Medical C enter DTAP/TDAP/TD VACCINES (1 - Tdap)] Future Scheduled 1995-12-27 DTAP/TDAP/TD VACCINES [facility] 00:00:00 (1 - Tdap) [code = Medical C enter DTAP/TDAP/TD VACCINES (1 - Tdap)] Future Scheduled 1994 HEPATITIS C [facility]CRE[facility]ING [facility] 00:00:00 [code = HEPATITIS C Medical Center SCREENING] Future Scheduled 1994 HEPATITIS C [facility]CRE[facility]ING [facility] 00:00:00 [code = HEPATITIS C Medical Center SCREENING] Future Scheduled [address] [facility] 00:00:00 0-64 YRS (1 - PCV) Medical C enter [code = PNEUMOCOCCAL VACCINE 0-64 YRS (1 - PCV)] Future Scheduled [address] [facility] 00:00:00 0-64 YRS (1 - PCV) Medical C enter [code = PNEUMOCOCCAL VACCINE 0-64 YRS (1 - PCV)] Future Scheduled 1977-06-27 COVID-19 VACCINE (#1) [facility] 00:00:00 [code = COVID-[address] VACCINE (#1)] Future Scheduled 1977-[birth year]-27 COVID-19 VACCINE (#1) [facility] 00:[facility]:00 [code = COVID-[address] VACCINE (#1)] Future Scheduled 1976 CT Colonography (combo) [facility] 00:[facility]:00 [code = CT Colonography [facility] (combo)] Future Scheduled 1976 Screening for malignant [facility] 00:00:00 neoplasm of colon Medical Ce nter (procedure) [code = 592867634] Future Scheduled 1976 Screening for malignant [facility] 00:00:00 neoplasm of colon Medical Ce nter (procedure) [code = 433300172] Future Scheduled 1976 Screening for malignant [facility] 00:00:00 neoplasm of colon Medical Ce nter (procedure) [code = 742690025] Future Scheduled 1976 Screening for malignant [facility] 00:00:00 neoplasm of colon Medical Ce nter (procedure) [code = 547329526] Future Scheduled 1975 Sigmoidoscopy [code = [facility] Sigmoidoscopy] Medical Cente r Future Scheduled 1976 CT Colonography (combo) [facility] 00:00:00 [code = CT Colonography [facility] (combo)] Future Scheduled 1976 Screening for malignant [facility] 00:00:00 neoplasm of colon Medical Ce nter (procedure) [code = 004733600] Future Scheduled 1976 Screening for malignant [facility] 00:00:00 neoplasm of colon Medical Ce nter (procedure) [code = 431365637] Future Scheduled 1976 Screening for malignant [facility] 00:00:00 neoplasm of colon Medical Ce nter (procedure) [code = 042995359] Future Scheduled 1976 Screening for malignant [facility] 00:00:00 neoplasm of colon Medical Ce nter (procedure) [code = 917640915] Future Scheduled 1975 Sigmoidoscopy [code = [facility] Sigmoidoscopy] Medical Cente r Encounters Start End Encounter Admission Attending Care Care Encounter Source Date/Time Date/Time Type Type Clinicians Facility Department ID 2022-07-15 2022-07-15 Outpatient [facility]_Tod PRIV PRIV [id number] [facility] 00:00:00 00:00:00 d_J [id number] Medica l 2022-07-052022-07-05 Magda [facility] 011 [facility] 00:00:00 00:00:00 VALENTINO Duval: Health - Med ical [address] [address] , Ph. 2022-06-16 2022-06-25 [facility] CasiWilderMaynor stern [facility] [id number] [facility] 08:21:00 15:09:00 Encounter [facility]lem Gr[facility]-16 2022-06-25 Inpatient ER AYO KOO [facility] 2 [id number] [facility] 08:21:00 15:09:00 [facility] 2022-06-24 2022-06-24 Outpatient [facility] [id number] 00:00:00 23:59:00 Jason 2022-06-24 2022-06-24 Orders [facility] [id number] 00:00:00 00:00:00 Only [facility] 2022-06-24 2022-06-24 Orders [facility] [id number] 00:00:00 00:00:00 Only [facility] 2022-06-16 2022-06-16 Outpatient TATIANNA GRIGGS [id number] [place] 00:00:00 00:00:00 BELEM grant 2022-06-16 2022-06-16 Outpatient GC_[facility]_Tod PRIV PRIV [id number] [facility] 00:00:00 00:00:00 d_J [id number] Medica l 2022-06-09 2022-06-09 Outpatient GC_BA[facility]_Tod PRIV PRIV [id number] [facility] 00:00:00 00:00:00 d_J [id number] Medica l 2022-06-07 2022-06-07 Outpatient GC_[facility]_Tod PRIV PRIV [id number] [facility] 00:00:00 00:00:00 d_J [id number] Medica l 2022-06-07 2022-06-07 Magda [facility] [id number] [facility] 00:00:00 00:00:00 VALENTINO Duval: Health - Med ical [address] GC_[place] [address] , Ph. 2022-06-02 2022-06-02 Outpatient BASILIO Betancourt [facility] [id number] 00:00:00 00:00:00 Keyshawn Alcantar [id number] 2022-06-02 2022-06-02 Keyshawn Alcantar [facility] [id number] [facility] 00:00:00 00:00:00 Asia [facility] - Med ical MD: [address] [address] , Ph. 2022-05-24 2022-05-24 Outpatient Mukund, PRIV PRIV [id number] 00:00:00 00:00:00 Magda [id number] 2022-05-24 2022-05-24 Magda [facility] [id number] [facility] 00:00:00 00:00:00 VALENTINO Duval: Health - Med ical [address] [address] , Ph. 2022-05-06 2022-05-06 Outpatient GC_BAHC_Tod PRIV PRIV [id number] [facility] 00:00:00 00:00:00 d_J [id number] Medica l 2022-04-26 2022-04-26 Outpatient GC_BAHC_Tod PRIV PRIV [id number] [facility] 00:00:00 00:00:00 d_J [id number] Medica l 2022-04-26 2022-04-26 Outpatient Mukund, PRIV PRIV [id number] 00:00:00 00:00:00 Magda [id number] 2022-04-22 2022-04-22 Outpatient GC_BAHC_Tod PRIV PRIV [id number] [facility] 00:00:00 00:00:00 d_J [id number] Medica l 2022-02-09 2022-04-20 Inpatient EM Lorna Douglass [facility] [id number] [facility] 05:41:00 17:44:00 57 [facility] are [facility] 2022-02-09 2022-04-20 Inpatient EM Lorna Douglass [facility] CARDIAC [id number] [facility] 05:41:00 17:44:00 [id number] [facility] are [facility] Results Test Description Test Time Test Comments Results Result Comments Source BLOOD CULTURE 2022-07-15 02:58:53 Test Item Value Reference Range Interpretation Comme nts CULTURE (BEAKER) (test code = 1095) No growth in 5 days The specimen volume collected for this blood culture was below the optimum (10 mL per bottle or 20 mL total). Use of lower volumes may adversely affect recovery and/or detection times of some organisms.BLOOD [id number] 02:58:53 Test Item Value Reference Range Interpretation Comments CULTURE (BEAKER) (test No growth in 5 days code = 1095) The specimen volume collected for this blood culture was below the optimum (10 mL per bottle or 20 mL total). Use of lower volumes may adversely affect recovery and/or detection times of some organisms.POC-Glucose [id number] 11:27:31 Test Item Value Reference Range Interpretation Comments POC-Glucose Meter (test 138 mg/dL 70-110 H : TE STED AT [facility] code = 1538) [address] [facility], 770 30: Infectious Diseases Physician/Techni amaya ID = [id number] for Martha Hillman Lab Interpretation (test Abnormal code = 08079-0) [facility] [id number] 11:27:31 Test Item Value Reference Range Interpretation Comments POC-Glucose Meter (test 138 mg/dL 70-110 H : TE STED AT [facility] code = 1538) [address] [facility], 770 30: Infectious Diseases Physician/Techni amaya ID = [id number] for HillmanVerna Rodia Lab Interpretation (test Abnormal code = 04965-0) [facility] [id number] 11:27:31 Test Item Value Reference Range Interpretation Comments POC-GLUCOSE METER 138 mg/dL 70-110 H : TESTED A T [facility] 6720 (BEAKER) (test code = [place], 1538) 05779: Infectious Diseases Physician/Techni amaya ID = [id number] for Martha Hillman TSH/FREE T4 IF [id number] 06:57:34 Test Item Value Reference Range Interpretation Comments THYROID STIMULATING HORMONE 0.620 uIU/mL 0.350-4.940 (BEAKER) (test code = 772) Infectious Diseases Physician ID - AMADO [id number] 06:47:51 Test Item Value Reference Range Interpretation Comments PHOSPHORUS (BEAKER) (test code = 5.0 mg/dL 2.3-4.7 H 604) Infectious Diseases Physician ID - AMADO MCOMPREHENSIVE METABOLIC [id number] 06:47:50 Test Item Value Reference Range Interpretation [...] not appl icable for dialysis patien ts Infectious Diseases Physician ID - AMADO MPOCT-GLUCOSE [id number] 06:29:35 Test Item Value Reference Range Interpretation Comments POC-GLUCOSE METER 142 mg/dL 70-110 H : TESTED A T [facility] 6720 ([facility]) (test code = [facility], 1538) 76849: Infectious Diseases Physician/Techni amaya ID = [id number] for Shira Zamora CBC W/PLT COUNT & AUTO [id number] 06:13:59 Test Item Value Reference Range Interpretation [...] PERCENT (BEAKER) (test code = 2801) POCT-GLUCOSE [id number] 00:50:48 Test Item Value Reference Range Interpretation Comments POC-GLUCOSE METER 125 mg/dL 70-110 H : TESTED A T [facility] 6720 (BEAKER) (test code = [facility], 1538) 71793: Infectious Diseases Physician/Techni amaya ID = [id number] for Sera, Shira POCT-GLUCOSE [id number] 18:12:31 Test Item Value Reference Range Interpretation Comments POC-GLUCOSE METER 132 mg/dL 70-110 H : TESTED A T [facility] 6720 (BEAKER) (test code = [facility], 1538) 21513: Infectious Diseases Physician/Techni amaya ID = [id number] for Hillman, Marydel PROTHROMBIN TIME/[id number] 17:11:45 Test Item Value Reference Range Interpretation Comments PROTIME (BEAKER) 13.0 seconds 11.9-14.2 (test code = 759) INR (BEAKER) (test 1.04 See_Comment [Automat ed message] code = 370) The system Reevoo generated this result transmitted ref erence range: <=5.90. The reference range was not used to int erpret this result as normal/abnormal . RECOMMENDED COUMADIN/WARFARIN INR THERAPY RANGESSTANDARD DOSE: 2.0 - 3.0 Includes: PROPHYLAXIS for venous thrombosis, systemic embolization; TREATMENT for venous thrombosis and/or pulmonary embolus.HIGH RISK: Target INR is 2.5-3.5 for patients with mechanical heart valves.CBC W/PLT COUNT & AUTO [id number] 16:51:46 Test Item Value Reference Range Interpretation [...] = 2801) RAD, CHEST, 1 VIEW, NON [id number] 14:54:00Reason for exam:->SOBShould this be performed at the bedside?->Yes [facility] : 1975 Sex: FFINAL [...] exam. No focal consolidation. Signed: Benjamin Hercules [facility] Verified Date/Time: 06/24/2022 14:54:31 Reading Location: [address] Reading Room -GLUCOSE [id number] 11:25:55 Test Item Value Reference Range Interpretation Comments POC-GLUCOSE METER 141 mg/dL 70-110 H : TESTED A T [facility] 6720 (BEAKER) (test code = [place] C[place] [facility], 1538) 24192: Infectious Diseases Physician/Techni amaya ID = [id number] for Martha Hillman POCT-GLUCOSE [id number] 06:47:49 Test Item Value Reference Range Interpretation Comments POC-GLUCOSE METER 119 mg/dL 70-110 H : TESTED A T [facility] 6720 (BEAKER) (test code = [place] [facility], 1538) 68661: Infectious Diseases Physician/Techni amaya ID = [id number] for TIM ABDULLAHI COMPREHENSIVE METABOLIC [id number] 04:52:02 Test Item Value Reference Range Interpretation [...] not appl icable for dialysis patien ts Infectious Diseases Physician ID - MEE [id number] 04:52:02 Test Item Value Reference Range Interpretation Comments PHOSPHORUS (BEAKER) (test code = 3.9 mg/dL 2.3-4.7 604) Infectious Diseases Physician ID - EME LCBC W/PLT COUNT & AUTO [id number] 04:10:24 Test Item Value Reference Range Interpretation [...] SARS-Co V-2 (test code = target nucleic 89680-9) acids are not detected in thi s specimen. Nega tive results do not preclude SARS-C oV-2 infection [...] om SARS-CoV-2 in a nasopharyngeal swab specimen collec may from individual s suspected of COVID-19 [...] revoked sooner. Fact Sheet for Healthcare Providers: https://www.Cookapp/Documents/Xp ert%20Xpress%20SAR S%20CoV-2/Fact%20S heets/302-3802%20S ARS-COV-2%20HEALTH CARE%20PROVIDERS%2 0FACT%20SHEET.pdf Fact Sheet for Healthcare Patients: https://www.Cookapp/Documents/Xp ert%20Xpress%20SAR S%20CoV-2/Fact%20S heets/302-3801%20S ARS-COV-2%20PATIEN T%20FACT%20SHEET.p df Lab Interpretation Normal (test code = 89078-7) [facility] (Asymptomatic ONLY)2022-06-24 04:05:11 Test Item Value Reference Interpretation Comments Range SARS-COV2/RT-PCR Negative Negative The SARS-Co V-2 (test code = target nucleic 65814-7) acids are not detected in thi s [...] om SARS-CoV-2 in a nasopharyngeal swab specimen collec may from individual s suspected of COVID-19 [...] revoked sooner. Fact Sheet for Healthcare Providers: https://www.Cookapp/Documents/Xp ert%20Xpress%20SAR S%20CoV-2/Fact%20S heets/302-3802%20S ARS-COV-2%20HEALTH CARE%20PROVIDERS%2 0FACT%20SHEET.pdf Fact Sheet for Healthcare Patients: https://www.Cookapp/Documents/Xp ert%20Xpress%20SAR S%20CoV-2/Fact%20S heets/302-3801%20S ARS-COV-2%20PATIEN T%20FACT%20SHEET.p df Lab Interpretation Normal (test code = 54612-5) [facility] ([facility])2022-06-24 04:05:11 Test Item Value Reference Range Interpretation Comments SARS-COV2/RT-PCR Negative Negative The SARS-Co V-2 target (test code = nucleic acids a re not 0090146) detected in thi s specimen. Negative result [...] revoked sooner. Fact Sheet for Healthcare Providers: https://Voicebase.Photorank m/Documents/Xpert%20Xpress%20SARS%20CoV-2/Fact%20Sheets/302-3802%94TRDT-GFH-4%20 HEALTHCARE%20PROVIDERS%20FACT%20SHEET.pdf Fact Sheet for Healthcare Patients: https://www.Evgen/Documents/Xpert%20Xp ress%20SARS%20CoV-2/Fact%20Sheets/302-3801%97HDZC-BEW-6%20PATIENT%20FACT%20SHEET .pdfPOCT-GLUCOSE [id number] 00:46:12 Test Item Value Reference Range Interpretation Comments POC-GLUCOSE METER 122 mg/dL 70-110 H : TESTED A T [facility] 6720 (BEAKER) (test code = [facility], 1538) 97396: Infectious Diseases Physician/Techni amaya ID = [id number] for TIM ABDULLAHI POCT-GLUCOSE [id number] 17:56:17 Test Item Value Reference Range Interpretation Comments POC-GLUCOSE METER 121 mg/dL 70-110 H : TESTED A T [facility] 6720 (BEAKER) (test code = [facility], 1538) 65676: Infectious Diseases Physician/Techni amaya ID = [id number] for Martha Hillman POCT-GLUCOSE [id number] 11:17:17 Test Item Value Reference Range Interpretation Comments POC-GLUCOSE METER 116 mg/dL 70-110 H : TESTED A T [facility] 6720 (BEAKER) (test code = [facility], 1538) 69254: Infectious Diseases Physician/Techni amaya ID = [id number] for Hillman Marydel COMPREHENSIVE METABOLIC [id number] 09:13:54 Test Item Value Reference Range Interpretation [...] not appl icable for dialysis patien ts Infectious Diseases Physician ID - AMADO [id number] 09:13:54 Test Item Value Reference Range Interpretation Comments PHOSPHORUS (BEAKER) (test code = 3.1 mg/dL 2.3-4.7 604) Infectious Diseases Physician ID - AMADO MPOCT-GLUCOSE [id number] 07:11:48 Test Item Value Reference Range Interpretation Comments POC-GLUCOSE METER 100 mg/dL 70-110 : TESTED A T [facility] 6720 (BEAKER) (test code = [place], 1538) 03596: Infectious Diseases Physician/Techni amaya ID = [id number] for TIM ABDULLAHI POCT-GLUCOSE [id number] 06:46:51 Test Item Value Reference Range Interpretation Comments POC-GLUCOSE METER 111 mg/dL 70-110 H : [facility] ([facility]ER[facility] (test code = [facility], 1538) 85985: Infectious Diseases Physician/Techni amaya ID = [id number] for Ramona Hurley CBC W/PLT COUNT & AUTO [id number] 04:22:31 Test Item Value Reference Range Interpretation [...] PERCENT (BEAKER) (test code = 2801) POCT-GLUCOSE [id number] 23:45:27 Test Item Value Reference Range Interpretation Comments POC-GLUCOSE METER 98 mg/dL 70-110 : TESTED A T [facility] 6720 (BEAKER) (test code = [facility], [facility]) 80585: Infectious Diseases Physician/Techni amaya ID = [id number] for Mushtaq enInesRamona POCT-GLUCOSE [id number] 18:07:58 Test Item Value Reference Range Interpretation Comments POC-GLUCOSE METER 114 mg/dL 70-110 H : TESTED A T [facility] 6720 (BEAKER) (test code = [facility], 153) 28890: Infectious Diseases Physician/Techni amaya ID = [id number] for Wi lson, Balaji POCT-GLUCOSE [id number] 11:54:44 Test Item Value Reference Range Interpretation Comments POC-GLUCOSE METER 135 mg/dL 70-110 H : TESTED A T [facility] 6720 (BEAKER) (test code = [facility], 153) 03146: Infectious Diseases Physician/Techni amaya ID = [id number] for DARRELL ARGUETA VANCOMYCIN LEVEL, [id number] 10:09:47 Test Item Value Reference Range Interpretation Comments VANCOMYCIN TROUGH (BEAKER) (test 21.9 ug/mL 10.0-20.0 H code = 522) Infectious Diseases Physician ID - TOM WPOCT-GLUCOSE [id number] 07:50:39 Test Item Value Reference Range Interpretation Comments POC-GLUCOSE METER 115 mg/dL 70-110 H : TESTED A T [facility] 6720 (BEAKER) (test code = [place], 1538) 66526: Infectious Diseases Physician/Techni amaya ID = [id number] for DARRELL ARGUETA [id number] 04:52:14 Test Item Value Reference Range Interpretation Comments PHOSPHORUS (BEAKER) (test code = 2.7 mg/dL 2.3-4.7 604) Infectious Diseases Physician ID - TOM WCOMPREHENSIVE METABOLIC [id number] 04:52:13 Test Item Value Reference Range Interpretation [...] not appl icable for dialysis patien ts Infectious Diseases Physician ID - TOM WPOCT-GLUCOSE [id number] 04:48:19 Test Item Value Reference Range Interpretation Comments POC-GLUCOSE METER 121 mg/dL 70-110 H : [facility] (BEAKER) (test code = [place], 1538) [address]367: Infectious Diseases Physician/Techni amaya ID = [id number] for Ilana Blanco CBC W/PLT COUNT & AUTO [id number] 04:04:07 Test Item Value Reference Range Interpretation [...] PERCENT (BEAKER) (test code = 2801) POCT-GLUCOSE [id number] 00:36:13 Test Item Value Reference Range Interpretation Comments POC-GLUCOSE METER 126 mg/dL 70-110 H : TESTED A T [facility] 6720 (BEAKER) (test code = [facility], 1538) 90458: Infectious Diseases Physician/Techni amaya ID = [id number] for Liza pino Ilana POCT-GLUCOSE [id number] 18:10:20 Test Item Value Reference Range Interpretation Comments POC-GLUCOSE METER 94 mg/dL 70-110 : TESTED A T [facility] 6720 (BEAKER) (test code = [facility], 1538) 56749: Infectious Diseases Physician/Techni amaya ID = [id number] for AlissaCorie villanueva COMPREHENSIVE METABOLIC [id number] 16:49:26 Test Item Value Reference Range Interpretation [...] not appl icable for dialysis patien ts Infectious Diseases Physician ID - [id number] 16:49:26 Test Item Value Reference Range Interpretation Comments PHOSPHORUS (BEAKER) (test code = 2.9 mg/dL 2.3-4.7 604) Infectious Diseases Physician ID - ADMINBLOOD [id number] 14:00:56 Test Item Value Reference Range Interpretation Comments CULTURE (BEAKER) (test No growth in 5 days code = 1095) The specimen volume collected for this blood culture was below the optimum (10 mL per bottle or 20 mL total). Use of lower volumes may adversely affect recovery and/or detection times of some organisms.BLOOD [id number] 13:00:49 Test Item Value Reference Range Interpretation Comments CULTURE (BEAKER) (test No growth in 5 days code = 1095) POCT-GLUCOSE [id number] 11:08:44 Test Item Value Reference Range Interpretation Comments POC-GLUCOSE METER 130 mg/dL 70-110 H : TESTED A T [facility] 6720 (BEAKER) (test code = [facility], 1538) 07473: Infectious Diseases Physician/Techni amaya ID = [id number] for Corie Munoz POCT-GLUCOSE [id number] 07:00:22 Test Item Value Reference Range Interpretation Comments POC-GLUCOSE METER 134 mg/dL 70-110 H : TESTED A T [facility] 6720 (BEAKER) (test code = [facility], 1538) 60704: Infectious Diseases Physician/Techni amaya ID = [id number] for Leighton Rodriguez CBC W/PLT COUNT & AUTO [id number] 05:42:30 Test Item Value Reference Range Interpretation [...] PERCENT (BEAKER) (test code = 2801) POCT-GLUCOSE [id number] 02:15:13 Test Item Value Reference Range Interpretation Comments POC-GLUCOSE METER 98 mg/dL 70-110 : TESTED A T [facility] 6720 (BEAKER) (test code = [facility], 1538) 28575: Infectious Diseases Physician/Techni amaya ID = [id number] for Puli do, Nestar POCT-GLUCOSE [id number] 00:10:22 Test Item Value Reference Range Interpretation Comments POC-GLUCOSE METER 83 mg/dL 70-110 : TESTED A T [facility] 6720 (BEAKER) (test code = [facility] MedTest DX [facility], 1538) 55607: Infectious Diseases Physician/Techni amaya ID = [id number] for Puli do, Nestar CT, BRAIN, WITHOUT [id number] 22:00:00Reason for Exam (Free Text) - Addiitonal information for Radiologist->new rigidity [facility] 1975 Sex: FFINAL REPORT [...] 06/20/2022 22:00:15 RAD, CHEST, 1 VIEW, NON [id number] 21:29:00Reason for exam:->[facility] 1975 Sex: [...] Nichols Verified Date/Time: 06/20/2022 21:29:34 Reading Location: [address] Reading Room HIGH SENSITIVITY TROPONIN [id number] 21:08:36 Test Item Value Reference Range Interpretation Comments HIGH SENSITIVITY < pg/ml See_Comment [Automated message] TROPONIN I (test code = The system which [id number]) generated this result transmitted ref erence range: <=17. Th e reference range was not used to interpr et this result as normal/abnormal . Infectious Diseases Physician ID - BSThe VOCAL MUSIC INSTRUCTOR STAT High Sensitivity Troponin-I results should be used in conjunctionwith other diagnostic information such as ECG, clinical observations and information, and patient symptoms to aid in the diagnosis of HI.COMPREHENSIVE METABOLIC [id number] 21:07:21 Test Item Value Reference Range Interpretation [...] (test code = 347) EGFR (BEAKER) 111 Interpretati on of eGFR (test code = 1092) mL/min/1.[address] age Description sq m Result G1 Leigh l or high >=90 G2 Mildly decreased 60-89 G3a Mildl y to moderately 45- 59 G3b Moderately to s everely 30-44 G4 Severl y decreased 15-29 G5 Kidney failure <15Reported eGF R is based on the CKD-EPI 202 equation that d oes not use a race coefficientEsti mated GFR is not as accur ate as Creatinine Neda vasquez in predicting glom erular filtration rate . Estimated GFR is not appl icable for dialysis patien ts Infectious Diseases Physician ID - [id number] 21:04:56 Test Item Value Reference Range Interpretation Comments PHOSPHORUS (BEAKER) (test code = 3.3 mg/dL 2.3-4.7 604) Infectious Diseases Physician ID - [id number] 21:04:55 Test Item Value Reference Range Interpretation Comments MAGNESIUM (BEAKER) (test code = 1.7 mg/dL 1.6-2.6 627) Infectious Diseases Physician ID - BSCBC W/PLT COUNT & AUTO [id number] 20:50:12 Test Item Value Reference Range Interpretation [...] (BEAKER) (test code = 2801) LACTIC ACID, [id number] 20:43:09 Test Item Value Reference Range Interpretation Comments LACTATE BLOOD VENOUS (2) (BEAKER) 2.63 mmol/L 0.50-2.20 H (test code = 2872) Infectious Diseases Physician ID - [id number]-[id number] 20:22:02 Test Item Value Reference Range Interpretation Comments POC-Glucose (test code = 134 mg/dL 70-110 H : T ESTED AT [facility] 1855) [address] [place] [address], 770 30: Infectious Diseases Physician/Techni amaya ID = [id number] for JOSEFA, TAL Lab Interpretation (test Abnormal code = 30672-1) [id number] 20:22:02 Test Item Value Reference Range Interpretation Comments POC-Glucose (test code = 134 mg/dL 70-110 H : T ESTED AT [facility] 1855) [address] [facility], 770 30: Infectious Diseases Physician/Techni amaya ID = [id number] for JOSEFA, TAL Lab Interpretation (test Abnormal code = 64901-4) [id number] 20:22:02 Test Item Value Reference Range Interpretation Comments POC-GLUCOSE (BEAKER) 134 mg/dL 70-110 H : TESTE D AT [facility] 6720 (test code = 1855) [facility] [place], [address]: Infectious Diseases Physician/Techni amaya ID = [id number] for SUBI A, TAL [id number] 20:22:01 Test Item Value Reference Range Interpretation Comments POC-Hemoglobin (test code 11.6 g/dL 12.0-15.0 L : TESTED AT [facility] = 1856) [address] [facility], [address]: Infectious Diseases Physician/Techni amaya ID = [id number] for JOSEFA, TAL Lab Interpretation (test Abnormal code = 12514-3) [facility] HospitalRusldtUNCC-[id number] 20:22:01 Test Item Value Reference Range Interpretation Comments POC-Hematocrit (test code 34 % 36-45 L : = 1857) Infectious Diseases Physician/Techni amaya ID = [id number] for JOSEFA, TAL Lab Interpretation (test Abnormal code = 32707-4) [facility] HospitalLwiicsSRTT-[id number] 20:22:01 Test Item Value Reference Range Interpretation Comments POC-Hemoglobin (test code 11.6 g/dL 12.0-15.0 L : TESTED AT [facility] = 1856) [address] [facility], 770 30: Infectious Diseases Physician/Techni amaya ID = [id number] for JOSEFA, TAL Lab Interpretation (test Abnormal code = 67863-1) [facility] HospitalWjghlkPOYJ-[id number] 20:22:01 Test Item Value Reference Range Interpretation Comments POC-Hematocrit (test code 34 % 36-45 L : = 1857) Infectious Diseases Physician/Techni amaya ID = [id number] for JOSEFA, TAL Lab Interpretation (test Abnormal code = 51074-2) [facility] HospitalEfaseyVBSY-[id number] 20:22:01 Test Item Value Reference Range Interpretation Comments POC-HEMOGLOBIN 11.6 g/dL 12.0-15.0 L : TESTED AT [facility] 6720 (BEAKER) (test code [facility], = 1856) [address]: Infectious Diseases Physician/Techni amaya ID = [id number] for SUBI A, TAL AZVO-[id number] 20:22:01 Test Item Value Reference Range Interpretation Comments POC-HEMATOCRIT 34 % 36-45 L : Infectious Diseases Physician/Te chnician ID = (CHU) (test code = 132723 for JOSEFATAL GARCIA 1857) RCD-[id number] 20:21:54 Test Item Value Reference Range Interpretation Comments POC-Potassium (test code 4.8 meq/L 3.6-5.5 : T ESTED AT [facility] = 1540) [address] [facility], 770 30: Infectious Diseases Physician/Techni amaya ID = [id number] for JOSEFA, TAL Lab Interpretation (test Normal code = 93928-5) [facility]-[id number] 20:21:54 Test Item Value Reference Range Interpretation Comments POC-Potassium (test code 4.8 meq/L 3.6-5.5 : T ESTED AT [facility] = 1540) [address] [facility], 770 30: Infectious Diseases Physician/Techni amaya ID = [id number] for JOSEFA, TAL Lab Interpretation (test Normal code = 27187-5) [facility]-[id number] 20:21:54 Test Item Value Reference Range Interpretation Comments POC-POTASSIUM 4.8 meq/L 3.6-5.5 : TESTED AT [facility] 6720 (CHU) (test code [facility], = 1540) [address]: Infectious Diseases Physician/Techni amaya ID = [id number] for SUBI A, TAL POC-Blood gases, [id number] 20:21:53 Test Item Value Reference Range Interpretation Comments Temp. Celsius-POC (test 99.3 code = 1834) FIO2-POC (test code = 100 1835) pH, Venous-POC (test 7.410 7.320-7.420 : TESTE D AT [facility] code = 1842) 6720 [facility], [address] PCO2, Venous-POC (test 50.2 See_Comment If pO [...] mated message] code = 1844) The system Reevoo generated this result transmit may reference range : 25.0 - 40.0 mm Hg. The reference r julia was not used to interpret this result as normal/abnormal . SO2, Venous-POC (test 63.0 % 40.0-70.0 code = 1845) HCO3, Venous-POC (test 31.7 meq/L 21.0-29.0 H code = 1846) BE, Venous-POC (test 7.0 meq/L -2.0-3.0 H : code = 1847) Infectious Diseases Physician/Techni amaya ID = [id number] for JOSEFA, TAL Lab Interpretation Abnormal (test code = 54238-3) [facility]-Fybayd5053-29-59 20:21:53 Test Item Value Reference Range Interpretation Comments POC-Sodium (test code = 140 meq/L 135-148 : TE STED AT [facility] 1542) 6720 [facility] [place], [address]: Infectious Diseases Physician/Techni amaya ID = [id number] for JOSEFA, TAL Lab Interpretation (test Normal code = 07474-2) [facility]-Blood gases, [id number] 20:21:53 Test Item Value Reference Range Interpretation Comments Temp. Celsius-POC (test 99.3 code = 1834) FIO2-POC (test code = 100 1835) pH, Venous-POC (test 7.410 7.320-7.420 : TESTE D AT [facility] code = 1842) [address] [facility] [place], [address] PCO2, Venous-POC (test 50.2 See_Comment If pO [...] mated message] code = 1844) The system Reevoo generated this result transmit may reference range : 25.0 - 40.0 mm Hg. The reference r julia was not used to interpret this result as normal/abnormal . SO2, Venous-POC (test 63.0 % 40.0-70.0 code = 1845) HCO3, Venous-POC (test 31.7 meq/L 21.0-29.0 H code = 1846) BE, Venous-POC (test 7.0 meq/L -2.0-3.0 H : code = 1847) Infectious Diseases Physician/Techni amaya ID = [id number] for JOSEFA, TAL Lab Interpretation Abnormal (test code = 19899-4) [facility] HospitalPOC-[id number] 20:21:53 Test Item Value Reference Range Interpretation Comments POC-Sodium (test code = 140 meq/L 135-148 : TE STED AT [facility] 1542) [address] [facility], 770 30: Infectious Diseases Physician/Techni amaya ID = [id number] for JOSEFA, TAL Lab Interpretation (test Normal code = 49096-1) [facility], [id number] 20:21:53 Test Item Value Reference Range Interpretation Comments TEMP, CELSIUS-POC 99.3 (BEAKER) (test code = 1834) FIO2-POC (BEAKER) 100 (test code = 1835) PH, VENOUS-POC 7.410 7.320-7.420 : TESTED AT [facility] 6720 (BEAKER) (test code [facility], = 1842) [address] PCO2, VENOUS-POC 50.2 mm Hg 41.0-51.0 If pO2 is > 180, pCO2 may (BEAKER) (test code be posit ively biased = 1843) PO2, VENOUS-POC 34.0 mm Hg 25.0-40.0 (BEAKER) (test code = 1844) SO2, VENOUS-POC 63.0 % 40.0-70.0 (BEAKER) (test code = 1845) HCO3, VENOUS-POC 31.7 meq/L 21.0-29.0 H (BEAKER) (test code = 1846) BASE EXCESS, 7.0 meq/L -2.0-3.0 H : Infectious Diseases Physician/Tech nician ID VENOUS-POC (BEAKER) = [id number] for JOSEFA, (test code = 1847) TAL EJTH-[id number] 20:21:53 Test Item Value Reference Range Interpretation Comments POC-SODIUM (BEAKER) 140 meq/L 135-148 : TESTED AT [place] [address] (test code = 1542) [facility], [address]: Infectious Diseases Physician/Techni amaya ID = [id number] for TAL DOSS POCT-GLUCOSE [id number] 18:00:18 Test Item Value Reference Range Interpretation Comments POC-GLUCOSE METER 104 mg/dL 70-110 : [facility] (BEBANNER) (test code = [facility], 153) [address]: Infectious Diseases Physician/Techni amaya ID = [id number] for Diallo Munozfany POCT-GLUCOSE [id number] 11:05:54 Test Item Value Reference Range Interpretation Comments POC-GLUCOSE METER 106 mg/dL 70-110 : TESTED A T [facility] 6720 (BEBANNER) (test code = [facility], 153) [address]: Infectious Diseases Physician/Techni amaya ID = [id number] for Mc Fee, Corie POCT-GLUCOSE [id number] 05:47:41 Test Item Value Reference Range Interpretation Comments POC-GLUCOSE METER 98 mg/dL 70-110 : TESTED A T [facility] 6720 (BEBANNER) (test code = [facility], 153) [address]: Infectious Diseases Physician/Techni amaya ID = [id number] for JAIM E PRAFUL, TOSHIA [id number] 04:09:51 Test Item Value Reference Range Interpretation Comments PHOSPHORUS (BEAKER) (test code = 3.5 mg/dL 2.3-4.7 604) Infectious Diseases Physician ID - PIAYA LPOCT-GLUCOSE [id number] 00:30:03 Test Item Value Reference Range Interpretation Comments POC-GLUCOSE METER 96 mg/dL 70-110 : [facility] (BE[facility]NER) (test code = [facility], 153) [address]: Infectious Diseases Physician/Techni amaya ID = [id number] for JAIM E PRAFUL, TOSHIA POCT-GLUCOSE [id number] 18:35:26 Test Item Value Reference Range Interpretation Comments POC-GLUCOSE METER 100 mg/dL 70-110 : [facility] (BEBANNER) (test code = [facility], 1538) [address]: Infectious Diseases Physician/Techni amaya ID = [id number] for Estela Arvizu POCT-GLUCOSE [id number] 12:12:23 Test Item Value Reference Range Interpretation Comments POC-GLUCOSE METER 96 mg/dL 70-110 : TESTED A T [facility] 6720 (BEAKER) (test code = [facility], 1538) [address]: Infectious Diseases Physician/Techni amaya ID = [id number] for Estela Hebert SPUTUM CULTURE + GRAM [id number] 09:19:53 Test Item Value Reference Interpretation Comments Range CULTURE ([facility]) METHICILLIN A 2+ Methicil dajuan (test code [...] Vancomycin (test code S = 13) CULTURE ([facility]) BURKHOLDERIA A 1+ Burkhold eria (test code [...] No organisms seen (BEAKER) (test code = 256540) POCT-GLUCOSE [id number] 06:59:08 Test Item Value Reference Range Interpretation Comments POC-GLUCOSE METER 116 mg/dL 70-110 H : TESTED A T [facility] 6720 (BEAKER) (test code = [place], 1538) [address]: Infectious Diseases Physician/Techni amaya ID = [id number] for TIM ABDULLAHI [id number] 06:17:56 Test Item Value Reference Range Interpretation Comments MAGNESIUM (BEAKER) (test code = 1.8 mg/dL 1.6-2.6 627) Infectious Diseases Physician ID - MEE [id number] 06:17:56 Test Item Value Reference Range Interpretation Comments PHOSPHORUS (BEAKER) (test code = 3.4 mg/dL 2.3-4.7 604) Infectious Diseases Physician ID - MIRELARUSS LBASIC METABOLIC [id number] 06:17:55 Test Item Value Reference Range Interpretation [...] not appl icable for dialysis patien ts Infectious Diseases Physician ID - PIAYA LCBC (HEMOGRAM ONLY)2022-06-19 05:33:41 [...] code = 412) PLATELET COUNT (BEAKER) (test 293 K/CU MM 150-450 code = 756) MEAN PLATELET VOLUME (BEAKER) 10.0 fL 9.4-12.3 (test code = 754) NUCLEATED RED BLOOD CELLS 0 /100 WBC 0-0 (BEAKER) (test code = 413) POCT-GLUCOSE [id number] 01:04:38 Test Item Value Reference Range Interpretation Comments POC-GLUCOSE METER 91 mg/dL 70-110 : TESTED A T [facility] 6720 (BEAKER) (test code = [place] [facility], 1538) [address]: Infectious Diseases Physician/Techni amaya ID = [id number] for TIM NELSON VANCOMYCIN LEVEL, [id number] 19:31:03 Test Item Value Reference Range Interpretation Comments VANCOMYCIN TROUGH (BEAKER) (test 8.7 ug/mL 10.0-20.0 L code = 522) Infectious Diseases Physician ID - AMADO MPOCT-GLUCOSE [id number] 18:23:15 Test Item Value Reference Range Interpretation Comments POC-GLUCOSE METER 128 mg/dL 70-110 H : TESTED A T [facility] 6720 (BEAKER) (test code = [facility] [place], 1538) [address]: Infectious Diseases Physician/Techni amaya ID = [id number] for HECTOR JOSEPH POCT-GLUCOSE [id number] 12:17:27 Test Item Value Reference Range Interpretation Comments POC-GLUCOSE METER 110 mg/dL 70-110 : TESTED A T [facility] 6720 (BEAKER) (test code = [facility], 1538) [address]: Infectious Diseases Physician/Techni amaya ID = [id number] for Estela Arvizu [id number] 06:23:38 Test Item Value Reference Range Interpretation Comments MAGNESIUM (BEAKER) (test code = 1.8 mg/dL 1.6-2.6 627) Infectious Diseases Physician ID - AMADO [id number] 06:23:38 Test Item Value Reference Range Interpretation Comments PHOSPHORUS (BEAKER) (test code = 2.9 mg/dL 2.3-4.7 604) Infectious Diseases Physician ID - AMADO MBASIC METABOLIC [id number] 06:23:37 Test Item Value Reference Range Interpretation [...] not appl icable for dialysis patien ts Infectious Diseases Physician ID - AMADO MPOCT-GLUCOSE [id number] 06:08:11 Test Item Value Reference Range Interpretation Comments POC-GLUCOSE METER 94 mg/dL 70-110 : [facility] (BEAKER) (test code = [place] [facility], 1538) [address]: Infectious Diseases Physician/Techni amaya ID = [id number] for Ilana Rodgers do CBC (HEMOGRAM ONLY)2022-06-18 [...] 0-0 (BEAKER) (test code = 413) POCT-GLUCOSE [id number] 22:15:43 Test Item Value Reference Range Interpretation Comments POC-GLUCOSE METER 99 mg/dL 70-110 : TESTED A T [facility] 6720 (BEAKER) (test code = [place] [facility], 1538) [address]: Infectious Diseases Physician/Techni amaya ID = [id number] for TIM NELSON POCT-GLUCOSE [id number] 19:24:14 Test Item Value Reference Range Interpretation Comments POC-GLUCOSE METER 93 mg/dL 70-110 : TESTED A T [facility] 6720 (BEAKER) (test code = [facility], 1538) [address]: Infectious Diseases Physician/Techni amaya ID = [id number] for Alexia Davila 2D Echo W/Doppler(CW/PW/Color)2022-06-17 17:42:49Ejection FractionSLEH ECHO [facility] Echo W/Doppler(CW/PW/Color)2022-06-17 17:42:49Ejection FractionSLEH ECHO [facility]LAB [facility] MET[facility]OL[facility] [id number] 17:10:48 Test Item Value Reference Range Interpretation [...] (test code = 697) EGFR (BEAKER) 117 Interpretati on of eGFR (test code = mL/min/1.73 values Stage De scription 1092) sq m Result G1 Leigh l or high >=90 G2 Mildly decreased 60-89 G3a Mildl y to moderately 45- 59 G3b Moderately to s everely 30-44 G4 Severl y decreased 15-29 G5 Kidney failure <15Reported eGF R is based on the CKD-EPI 2020 equation that d oes not use a race coefficientEsti mated GFR is not as accur ate as Creatinine Neda pedro in predicting glom erular filtration rate . Estimated GFR is not appl icable for dialysis patien ts Infectious Diseases Physician ID - BSHEMOGLOBIN AND [id number] 16:53:14 Test Item Value Reference Range Interpretation Comments HEMOGLOBIN (BEAKER) (test code = 8.0 GM/DL 11.2-15.7 L 410) HEMATOCRIT (BEAKER) (test code = 25.1 % 34.1-44.9 L 411) Infectious Diseases Physician ID - [id number] doppler legs [id number] 16:05:02Ejection FractionSLEH ECHO [facility]LAB [facility]ous doppler legs [id number] 16:05:02Ejection FractionSLEH ECHO [facility]LAB [facility]angeMAGNESIUM2022-09-23 15:14:24 Test Item Value Reference Range Interpretation Comments MAGNESIUM (BEAKER) (test code = 2.0 mg/dL 1.6-2.6 627) Infectious Diseases Physician ID - BSBASIC METABOLIC [id number] 14:35:34 Test Item Value Reference Range Interpretation [...] 8.4-10.2 L (test code = 697) EGFR (CHU) 121 Interpretatio n of eGFR (test code [...] not appl icable for dialysis patien ts Infectious Diseases Physician ID - PIAYA LPOCT-GLUCOSE [id number] 13:16:09 Test Item Value Reference Range Interpretation Comments POC-GLUCOSE METER 121 mg/dL 70-110 H : Notified RN/MD: (CHU) (test code = TESTED AT [facility] 9432 9995) [facility], [address]: Infectious Diseases Physician/Techni amaya ID = [id number] for Meme Medellin RAD, CHEST, 1 VIEW, NON [id number] 08:21:00Reason for exam:->eval for pulmonary congestionShould this be performed at the bedside?->Yes [facility] 1975 Sex: FFINAL REPORT Chest AP portable Comparison exam: 06/16/2022 History provided: Evaluation for pulmonary congestion Heart size normal. Airspace disease has developed within the left lower lobe which merits short-term follow- up. Right lung clear. Normal vascularity. Tracheostomy tube and left-sided PICC line in place. Signed: Diomedes Wiggins MDReport Verified Date/Time: 06/17/2022 08:21:08 ReadingLocation: [facility] Diagnostic Imaging Reading Room - [facility] F1 1.310.12 POCT- GLUCOSE [id number] 06:03:37 Test Item Value Reference Range Interpretation Comments POC-GLUCOSE METER 83 mg/dL 70-110 : [facility] (BEAKER) (test code = [place] [facility], 1538) [address]: Infectious Diseases Physician/Techni amaya ID = [id number] for Konf or (contract), Catherine bronwyn BASIC METABOLIC [id number] 05:03:41 Test Item Value Reference Range Interpretation [...] not appl icable for dialysis patien ts Infectious Diseases Physician ID - MEE [id number] 05:03:41 Test Item Value Reference Range Interpretation Comments MAGNESIUM (BEAKER) (test code = 1.7 mg/dL 1.6-2.6 627) Infectious Diseases Physician ID - MEE [id number] 05:03:41 Test Item Value Reference Range Interpretation Comments PHOSPHORUS (BEAKER) (test code = 2.8 mg/dL 2.3-4.7 604) Infectious Diseases Physician ID - MEE LCBC (HEMOGRAM ONLY)2022-06-17 04:27:39 [...] 0-0 (BEAKER) (test code = 413) POCT-GLUCOSE [id number] 23:45:59 Test Item Value Reference Range Interpretation Comments POC-GLUCOSE METER 80 mg/dL 70-110 : TESTED A T [facility] 6720 (BEAKER) (test code = [place], 1538) [address]: Infectious Diseases Physician/Techni amaya ID = [id number] for Konf or (contract), Lil bronwyn RAD, CHEST, 1 VIEW, NON [id number] 23:30:00Reason for exam:->eval pulmonary congestionShould this be performed at the bedside?->Yes [facility] 1975 Sex: [...] line tip overlies the SVC. Signed: Jo Pereiraeport Verified Date/Time: 06/16/2022 23:30:48 -GLUCOSE [id number] 17:30:55 Test Item Value Reference Range Interpretation Comments POC-GLUCOSE METER 78 mg/dL 70-110 : TESTED A T [facility] 6720 (CHU) (test code = [place] [facility], 1538) [address]: Infectious Diseases Physician/Techni amaya ID = [id number] for Loiusa Kilpatrick CT, BRAIN, WITHOUT [id number] 14:28:00Reason for Exam (Free Text) - Addiitonal information for Radiologist->hx of stroke / anoxic /brain injury [facility] : 1975 Sex: [...] recommended for further characterization. Signed: Magali Baez MDReport Verified Date/Time: 06/16/2022 14:28:06 SARS-COV2/RT-PCR ([facility])2022-06-16 11:20:51 Test Item Value Reference Range Interpretation Comments SARS-COV2/RT-PCR Negative Negative The SARS-Co V-2 target (test code = nucleic acids a re not 4191140) detected in thi s specimen. Negative result [...] revoked sooner. Fact Sheet for Healthcare Providers: https://www.Photorank m/Documents/Xpert%20Xpress%20SARS%20CoV-2/Fact%20Sheets/3023802%93CUCS-RKO-0%20 HEALTHCARE%20PROVIDERS%20FACT%20SHEET.pdf Fact Sheet for Healthcare Patients: https://www.Evgen/Documents/Xpert%20Xp ress%20SARS%20CoV-2/Fact%20Sheets/3023801%82VIWA-SPO-0%20PATIENT%20FACT%20SHEET .cqhXEGQZQNTNBSDF5897-36-47 10:39:32 Test Item Value Reference Range Interpretation Comments PROCALCITONIN (BEAKER) (test code 1.03 ng/mL <0.05 H = 3036) SEPSIS RISK (ng/mL)Low: 0.05-0.50Intermediate: 0.51-2.00High: >=2.01BASIC METABOLIC [id number] 10:30:08 Test Item Value Reference Range Interpretation [...] not appl icable for dialysis patien ts Infectious Diseases Physician ID - AMADO MHEPATIC FUNCTION [id number] 10:30:08 Test Item Value Reference Range Interpretation [...] (test code = 40 U/L 6-55 347) Infectious Diseases Physician ID - AMADO MUrinalysis w/Microscopic + Reflex to [id number] 10:24:21 Test Item Value Reference Range Interpretation Comments Color, UA (test code Light Yellow = 5778-6) Clarity, UA (test Clear code = 5767-9) Specific [place], UA 1.017 1.001-1.035 (test code = 5811-5) pH, UA (test code = 6.0 5.0-8.0 5803-2) Protein, UA (test 10 mg/dL Negative A code = 81471-5) Glucose, UA (test Negative Negative code = 365) Ketones, UA (test 40 mg/dL Negative A code = 2514-8) Bilirubin, UA (test Negative Negative code = 45242-9) Blood, UA (test code Negative Negative = 89453-5) Nitrite, UA (test Negative Negative code = 5802-4) Leukocytes, UA (test Trace Negative A code = 5799-2) Urobilinogen, UA 0.2 mg/dL 0.2-1.0 (test code = 73981-6) RBC, UA (test code = 2 See_Comment [Autom ated 39260-1) message] The system which generated this result [...] . Bacteria, UA (test Rare code = 97712-8) Mucus (test code = Rare 8247-9) Squam Epithel, UA 1 See_Comment [Automate d (test code = 27828-5) messag e] The system which generated this result transmit may reference range : /HPF. The reference range was not used to interpret this result as normal/abnormal . Hyaline Casts, UA 4 See_Comment [Automate d (test code = 61458-1) messag e] The system which generated this result transmit may reference range : /LPF. The reference range was not used to interpret this result as normal/abnormal . Crystals, Urine (test None Seen code = 80688-3) Specimen Source (test code = 2795) TONY (test code = TONY) Infectious Diseases Physician ID - [auto]Infectious Diseases Physician ID - tech Lab Interpretation Abnormal (test code = 44007-5) [facility]sc[facility] + Reflex to Culture 2022-06-16 10:24:21 Test Item Value Reference Range Interpretation Comments Color, UA (test code Light Yellow = 5778-6) Clarity, UA (test Clear code = 5767-9) Specific [place], UA 1.017 1.001-1.035 (test code = 5811-5) pH, UA (test code = 6.0 5.0-8.0 5803-2) Protein, UA (test 10 mg/dL Negative A code = 52157-5) Glucose, UA (test Negative Negative code = 365) Ketones, UA (test 40 mg/dL Negative A code = 2514-8) Bilirubin, UA (test Negative Negative code = 99800-1) Blood, UA (test code Negative Negative = 70669-4) Nitrite, UA (test Negative Negative code = 5802-4) Leukocytes, UA (test Trace Negative A code = 5799-2) Urobilinogen, UA 0.2 mg/dL 0.2-1.0 (test code = 35381-6) RBC, UA (test code = 2 See_Comment [Autom ated 39512-8) message] The system which generated this result [...] . Bacteria, UA (test Rare code = 21270-9) Mucus (test code = Rare 8247-9) Squam Epithel, UA 1 See_Comment [Automate d (test code = 72673-4) messag e] The system which generated this result transmit may reference range : /HPF. The reference range was not used to interpret this result as normal/abnormal . Hyaline Casts, UA 4 See_Comment [Automate d (test code = 31001-5) messag e] The system which generated this result transmit may reference range : /LPF. The reference range was not used to interpret this result as normal/abnormal . Crystals, Urine (test None Seen code = 76581-7) Specimen Source (test code = 2795) TONY (test code = TONY) Infectious Diseases Physician ID - [auto]Infectious Diseases Physician ID - tech Lab Interpretation Abnormal (test code = 35605-1) [facility]UR[facility]IS W/ REFLEX URINE [id number] 10:24:21 Test Item Value Reference Range Interpretation [...] = 1521) SOURCE(BEAKER) (test code = 2795) Infectious Diseases Physician ID - [auto]Infectious Diseases Physician ID - techLACTIC ACID, [id number] 10:21:26 Test Item Value Reference Range Interpretation Comments LACTATE BLOOD VENOUS (2) (BEAKER) 1.86 mmol/L 0.50-2.20 (test code = 2872) Infectious Diseases Physician ID - AMADO MCBC (HEMOGRAM ONLY)2022-06-16 09:56:33 Test Item Value [...] (BEAKER) (test code = 413) BLOOD GAS, [id number] 09:55:57 Test Item Value Reference Range Interpretation [...] TEMPERATURE (BEAKER) (test 37.0 code = 1818) [id number] 16:03:00 Test Item Value Reference Range Interpretation Comments GLUBED (test code = GLUBED) 101 MG/DL 70-105 N [id number] 11:04:00 Test Item Value Reference Range Interpretation Comments GLUBED (test code = GLUBED) 179 MG/DL 70-105 H BASIC METABOLIC [id number] 08:00:00 Test Item Value Reference Range Interpretation [...] mg/dL 8.5-10.5 N = CA) CBC W/AUTO [id number] 06:57:00 Test Item Value Reference Range Interpretation [...] = BA#) 0.0 x10 3/uL 0.0-0.1 N [id number] 06:14:00 Test Item Value Reference Range Interpretation Comments GLUBED (test code = GLUBED) 106 MG/DL 70-105 H [id number] 20:22:00 Test Item Value Reference Range Interpretation Comments GLUBED (test code = GLUBED) 120 MG/DL 70-105 H [id number] 15:21:00 Test Item Value Reference Range Interpretation Comments GLUBED (test code = GLUBED) 125 MG/DL 70-105 H [id number] 11:16:00 Test Item Value Reference Range Interpretation Comments GLUBED (test code = GLUBED) 153 MG/DL 70-105 H [id number] 06:36:00 Test Item Value Reference Range Interpretation Comments GLUBED (test code = GLUBED) 135 MG/DL 70-105 H [id number] 22:08:00 Test Item Value Reference Range Interpretation Comments GLUBED (test code = GLUBED) 105 MG/DL 70-105 N [id number] 16:11:00 Test Item Value Reference Range Interpretation Comments GLUBED (test code = GLUBED) 123 MG/DL 70-105 H [id number] 12:14:00 Test Item Value Reference Range Interpretation Comments GLUBED (test code = GLUBED) 117 MG/DL 70-105 H CBC W/AUTO [id number] 06:20:00 Test Item Value Reference Range Interpretation [...] 0.0 x10 3/uL 0.0-0.1 N BASIC METABOLIC [id number] 06:19:00 Test Item Value Reference Range Interpretation [...] code 9.1 mg/dL 8.5-10.5 N = CA) [id number] 06:05:00 Test Item Value Reference Range Interpretation Comments GLUBED (test code = GLUBED) 128 MG/DL 70-105 H [id number] 00:55:00 Test Item Value Reference Range Interpretation Comments GLUBED (test code = GLUBED) 128 MG/DL 70-105 H - XR CHEST 1 [id number] 18:02:00 [facility] : 1975 Sex: FPatient Name: JERI VILLALOBOS Unit No: [id number] EXAMS: CPT: [id number] XR CHEST 1 V 34682 STUDY: - XR CHEST 1 V INDICATION: [...] [facility]: Ruiz Wolfe MD [address] [facility] : 1975 Age: 46 Sex: F [place], [place] [address] Loc: N.0377 1 Exam Date: 04/17/2022 Status: ADM IN PH: FAX: PAGE1 Signed Report [id number] 15:58:00 Test Item Value Reference Range Interpretation Comments GLUBED (test code = GLUBED) 142 MG/DL 70-105 H [id number] 11:34:00 Test Item Value Reference Range Interpretation Comments GLUBED (test code = GLUBED) 113 MG/DL 70-105 H BASIC METABOLIC [id number] 07:39:00 Test Item Value Reference Range Interpretation [...] mg/dL 8.5-10.5 N = CA) CBC W/AUTO [id number] 07:21:00 Test Item Value Reference Range Interpretation [...] = BA#) 0.0 x10 3/uL 0.0-0.1 N [id number] 05:50:00 Test Item Value Reference Range Interpretation Comments GLUBED (test code = GLUBED) 146 MG/DL 70-105 H [id number] 23:41:00 Test Item Value Reference Range Interpretation Comments GLUBED (test code = GLUBED) 103 MG/DL 70-105 N [id number] 15:36:00 Test Item Value Reference Range Interpretation Comments GLUBED (test code = GLUBED) 120 MG/DL 70-105 H [id number] 12:03:00 Test Item Value Reference Range Interpretation Comments GLUBED (test code = GLUBED) 134 MG/DL 70-105 H BASIC METABOLIC [id number] 07:51:00 Test Item Value Reference Range Interpretation [...] mg/dL 8.5-10.5 N = CA) CBC W/AUTO [id number] 07:48:00 Test Item Value Reference Range Interpretation [...] = 0.0 x10 3/uL 0.0-0.1 N BA#) [id number] 06:59:00 Test Item Value Reference Range Interpretation Comments GLUBED (test code = GLUBED) 125 MG/DL 70-105 H [id number] 00:00:00 Test Item Value Reference Range Interpretation Comments GLUBED (test code = GLUBED) 125 MG/DL 70-105 H [id number] 19:47:00 Test Item Value Reference Range Interpretation Comments GLUBED (test code = GLUBED) 106 MG/DL 70-105 H [id number] 16:21:00 Test Item Value Reference Range Interpretation Comments GLUBED (test code = GLUBED) 153 MG/DL 70-105 H [id number] 12:30:00 Test Item Value Reference Range Interpretation Comments GLUBED (test code = GLUBED) 114 MG/DL 70-105 H [id number] 05:46:00 Test Item Value Reference Range Interpretation Comments GLUBED (test code = GLUBED) 136 MG/DL 70-105 H CBC W/AUTO [id number] 04:49:00 Test Item Value Reference Range Interpretation [...] 0.0 x10 3/uL 0.0-0.1 N BASIC METABOLIC [id number] 04:33:00 Test Item Value Reference Range Interpretation [...] code 8.9 mg/dL 8.5-10.5 N = CA) [id number] 20:48:00 Test Item Value Reference Range Interpretation Comments GLUBED (test code = GLUBED) 89 MG/DL 70-105 N [id number] 17:18:00 Test Item Value Reference Range Interpretation Comments GLUBED (test code = GLUBED) 117 MG/DL 70-105 H [id number] 11:19:00 Test Item Value Reference Range Interpretation Comments GLUBED (test code = GLUBED) 113 MG/DL 70-105 H [id number] 06:05:00 Test Item Value Reference Range Interpretation Comments GLUBED (test code = GLUBED) 118 MG/DL 70-105 H BASIC METABOLIC [id number] 04:57:00 Test Item Value Reference Range Interpretation [...] code 8.5 mg/dL 8.5-10.5 N = CA) [id number] 04:57:00 Test Item Value Reference Range Interpretation Comments PHOSPHOROUS (test code = PHOS) 3.8 mg/dl 2.5-4.6 N [id number] 04:57:00 Test Item Value Reference Range Interpretation Comments MAGNESIUM (test code = MAG) 1.8 mg/dl 1.8-2.5 N CBC W/AUTO [id number] 04:44:00 Test Item Value Reference Range Interpretation [...] = BA#) 0.0 x10 3/uL 0.0-0.1 N [id number] 01:16:00 Test Item Value Reference Range Interpretation Comments GLUBED (test code = GLUBED) 84 MG/DL 70-105 N [id number] 17:04:00 Test Item Value Reference Range Interpretation Comments GLUBED (test code = GLUBED) 112 MG/DL 70-105 H [id number] 12:18:00 Test Item Value Reference Range Interpretation Comments GLUBED (test code = GLUBED) 107 MG/DL 70-105 H - XR CHEST 1 [id number] 08:45:00 [facility] : 1975 Sex: FPatient Name: JERI VILLALOBOS Unit No: [id number] EXAMS: CPT: [id number] XR CHEST 1 V 51511 CHEST RADIOGRAPH - 1 view CLINICAL HISTORY: f/u hypoxemia. COMPARISON: 04/12/2022 FINDINGS: Patient is rotated. Heart size unchanged. Bibasilar atelectasis and/or infiltrates, left greater than right. No large pleuraleffusion seen. IMPRESSION: Right basilar atelectasis and/or infiltrates, left greater than right. Findings are relatively stable. Recommend continued follow-up. at 0845 Reported and signed by: Maximiliano Cleaning MD CC: Jorje Eller MD; Manuel Rose DO Technologist: Dyan Rincon Fluoro Time: DAP (Gy m2): Air Kerma (mGy): Trscr Dt/Tm: 04/13/2022 (0845) by:harpreet OSHEA Orig Print D/T: S: 04/13/2022 (0848) BATCH NO: N/A Name: JERI VILLALOBOS [facility] Phys: Jorje Brasher MD [address] [place] : 1975 Age: 46 Sex: F [place] [address] Loc: N.2058 1 Exam Date: 04/13/2022 Status: ADM IN PH: FAX: PAGE 1 Signed ReportGLUBED 2022-04-13 08:10:00 Test Item Value Reference Range Interpretation Comments GLUBED (test code = GLUBED) 102 MG/DL 70-105 N ARTERIAL BLOOD [id number] 04:42:00 Test Item Value Reference Range Interpretation [...] d message] code = MARY) The system Reevoo generated this result transmit may reference range [...] g/dL 12.0-18.0 N = THB) BASIC METABOLIC [id number] 04:11:00 Test Item Value Reference Range Interpretation [...] in AM if not alreadyComments to Phleb: ordered.[id number] 04:11:00 Test Item Value Reference Range Interpretation Comments MAGNESIUM (test code = MAG) 1.8 mg/dl 1.8-2.5 N Spec Comments: Repeat Serum Magnesium level in AM if not alreadyComments to Phleb: ordered.CALCIUM [id number] 03:19:00 Test Item Value Reference Range Interpretation Comments CALCIUM IONIZED (test code = WESLY) 1.20 mmol/L 1.13-1.32 N CBC W/AUTO [id number] 03:06:00 Test Item Value Reference Range Interpretation [...] 0.0 x10 3/uL 0.0-0.1 N ARTERIAL BLOOD [id number] 20:54:00 Test Item Value Reference Range Interpretation [...] See_Comment N [Automate d message] code = AMRY) The system Reevoo generated this result transmit may reference range [...] code 15.2 g/dL 12.0-18.0 N = THB) [id number] 16:48:00 Test Item Value Reference Range Interpretation Comments GLUBED (test code = GLUBED) 132 MG/DL 70-105 H COMPREHENSIVE METABOLIC [id number] 16:32:00 Test Item Value Reference Range Interpretation [...] 42-121 N PHOSPHATASE (test code = ALKP) [id number] 16:32:00 Test Item Value Reference Range Interpretation Comments PHOSPHOROUS (test code = PHOS) 3.7 mg/dl 2.5-4.6 N [id number] 16:32:00 Test Item Value Reference Range Interpretation Comments MAGNESIUM (test code = MAG) 2.2 mg/dl 1.8-2.5 N [id number] 11:37:00 Test Item Value Reference Range Interpretation Comments GLUBED (test code = GLUBED) 139 MG/DL 70-105 H - CT HEAD/BRAIN W/O [id number] 10:15:00 [facility] : 1975 Sex: FPatient Name: JERI VILLALOBOS Unit No: [id number] EXAMS: CPT: [id number] CT HEAD/BRAIN W/O CONT 95028 EXAM: CT BRAIN WITHOUT CONTRAST DATE: 04/12/2022 [...] The basal cisterns are patent Retention cysts areseen in bilateral posterior ethmoid air cells. There [...] (1018) BATCH NO: N/A Name: JERI VILLALOBOS [facility] Phys: SIDFA. Manuel Rose [address] [facility] : 1975 Age: 46 Sex: F [place] [address] Loc: N.2058 1 Exam Date: 04/12/2022 Status: ADM IN PH: FAX: PAGE 1Signed ReportARTERIAL BLOOD [id number] 10:07:00 Test Item Value Reference Range Interpretation [...] d message] code = MARY) The system Reevoo generated this result transmit may reference range [...] (test Yes code = ALLENS) BLOOD GAS W/[id number] 10:07:00 Test Item Value Reference Range Interpretation Comments ARTERIAL BLOOD GAS PH 7.463 7.350-7.450 H (test code = PHA) ARTERIAL BLOOD GAS 28.2 mmHg 35-45 L PCO2 (test code = PCO2A) BICARBONATE TOTAL 19.7 mmol/L 22-26 L HCO3 (test code = HCO3) BASE EXCESS (test -2.7 mmol/L See_Comment L [Automate d message] code = MARY) The system Reevoo generated this result transmit may reference range [...] N = THB) - CTA CHEST FOR [id number] 10:06:00 [facility] : 1975 Sex: FPatient Name: JERI VILLALOBOS Unit No: [id number] EXAMS: CPT: [id number] [place] [address] CTA CHESTWITH CONTRAST: INDICATIONS:Overdose. Tachycardia. COMPARISON: None available TECHNIQUE: Axial CT chest with IV contrast was performed. Coronal and sagittal reformats reconstructed. Bolus tracking series followed by contrast-enhanced CT. Data set analyzed on a 3-D workstation with image post processing. CT radiation dose optimization is achieved for this examination by the use of a CT protocol in accordance with ACR practice standards and adherence to floor supervisor's recommendations. Contrast: 100cc Isovue-300. Total DPL: 388.21mGy*cm. [...] pneumonia, relatively stable. at 1006 Reported and signed by: Jalen Black MD CC: Manuel Rose DO Technologist: Sarah Perez CTDI: 10.48 DLP: 388.21 Trscr Dt/Tm: 04/12/2022 (1006) by:[email or web address] Orig Print D/T: S: 04/12/2022 (1009) BATCH NO: N/A Name: JERI VILLALOBOS [facility] Phys: HETAL. 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 [id number] 09:41:00 Test Item Value Reference Range Interpretation Comments MAGNESIUM (test code = MAG) 2.0 mg/dl 1.8-2.5 N 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 [facility]AUTO [id number] 09:37:00 Test Item Value Reference Range Interpretation [...] 0.1 x10 3/uL 0.0-0.1 N 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 [id number] 09:37:00 Test Item Value Reference Range Interpretation Comments TROPONIN-I (test code = TROPI) <0.020 ng/mL 0.000-0.034 N CBC W/AUTO [id number] 08:38:00 Test Item Value Reference Range Interpretation [...] (test code = ADEQUATE ADEQUATE PLTEST) DIFFERENTIAL [id number] 08:38:00 Test Item Value Reference Range Interpretation Comments PLATELET MORPHOLOGY (test code = Normal NORMAL PLTMORPH) - XR CHEST 1 [id number] 08:34:00 [facility] [place] : 1975 Sex: FPatient Name: JERI VILLALOBOS Unit No: [id number] EXAMS: CPT: [id number] XR CHEST 1 V 62613 CHEST RADIOGRAPH, ONE VIEW: FRONTAL HISTORY: Shortness of breath. COMPARISON: April 01 2022. FINDINGS: Biapical lungscarring. Basilar congestion. Borderline cardiomegaly. IMPRESSION: Basilar congestion and underlyingcardiomegaly. at 0834 Reported and signed by: Jalen Black MD CC: Manuel Rose DO Technologist: Galdino Deleon Time: DAP (Gy m2): Air Kerma (mGy): Trscr Dt/Tm: 04/12/2022 (0834) by:[email or web address] Orig Print D/T: S: 04/12/2022 (0837) BATCH NO: N/A Name: JERI VILLALOBOS [place] [facility] Phys: SIDFA.01 - [place],Manuel Grant [address] : 1975 Age: 46 Sex: F [place], [place] [address] [id number] Loc: N.0385 1 Exam Date: 04/12/2022tatus: ADM IN PH: FAX: PAGE 1 Signed ReportBASIC METABOLIC [id number] 08:21:00 Test Item Value Reference Range Interpretation [...] code 9.4 mg/dL 8.5-10.5 N = CA) [id number] 08:07:00 Test Item Value Reference Range Interpretation Comments GLUBED (test code = GLUBED) 116 MG/DL 70-105 H [id number] 06:06:00 Test Item Value Reference Range Interpretation Comments CREATININE (test code = CREAT) 0.63 mg/dL 0.44-1.03 N [id number] 06:03:00 Test Item Value Reference Range Interpretation Comments GLUBED (test code = GLUBED) 124 MG/DL 70-105 H [id number] 21:32:00 Test Item Value Reference Range Interpretation Comments GLUBED (test code = GLUBED) 125 MG/DL 70-105 H [id number] 15:13:00 Test Item Value Reference Range Interpretation Comments GLUBED (test code = GLUBED) 138 MG/DL 70-105 H [id number] 12:10:00 Test Item Value Reference Range Interpretation Comments GLUBED (test code = GLUBED) 129 MG/DL 70-105 H [id number] 07:01:00 Test Item Value Reference Range Interpretation Comments GLUBED (test code = GLUBED) 129 MG/DL 70-105 H [id number] 06:14:00 Test Item Value Reference Range Interpretation Comments CREATININE (test code = CREAT) 0.61 mg/dL 0.44-1.03 N [id number] 21:53:00 Test Item Value Reference Range Interpretation Comments GLUBED (test code = GLUBED) 132 MG/DL 70-105 H [id number] 17:28:00 Test Item Value Reference Range Interpretation Comments GLUBED (test code = GLUBED) 124 MG/DL 70-105 H [id number] 08:46:00 Test Item Value Reference Range Interpretation Comments CREATININE (test code = CREAT) 0.67 mg/dL 0.44-1.03 N [id number] 06:18:00 Test Item Value Reference Range Interpretation Comments GLUBED (test code = GLUBED) 137 MG/DL 70-105 H [id number] 20:49:00 Test Item Value Reference Range Interpretation Comments GLUBED (test code = GLUBED) 122 MG/DL 70-105 H [id number] 16:26:00 Test Item Value Reference Range Interpretation Comments GLUBED (test code = GLUBED) 135 MG/DL 70-105 H [id number] 11:42:00 Test Item Value Reference Range Interpretation Comments GLUBED (test code = GLUBED) 139 MG/DL 70-105 H [id number] 09:59:00 Test Item Value Reference Range Interpretation Comments CREATININE (test code = CREAT) 0.63 mg/dL 0.44-1.03 N VANCOMYCIN [id number] 09:49:00 Test Item Value Reference Range Interpretation Comments VANCOMYCIN TROUGH 18.2 ug/ml 10.0-20.0 N Please ref er to (test code = VANCT) Medicati on Administration Record (MAR) forlast d ose date and time. [id number] 20:27:00 Test Item Value Reference Range Interpretation Comments GLUBED (test code = GLUBED) 134 MG/DL 70-105 H [id number] 15:35:00 Test Item Value Reference Range Interpretation Comments GLUBED (test code = GLUBED) 110 MG/DL 70-105 H [id number] 12:06:00 Test Item Value Reference Range Interpretation Comments GLUBED (test code = GLUBED) 122 MG/DL 70-105 H [id number] 06:35:00 Test Item Value Reference Range Interpretation Comments CREATININE (test code = CREAT) 0.55 mg/dL 0.44-1.03 N [id number] 05:42:00 Test Item Value Reference Range Interpretation Comments GLUBED (test code = GLUBED) 87 MG/DL 70-105 N [id number] 20:26:00 Test Item Value Reference Range Interpretation Comments GLUBED (test code = GLUBED) 116 MG/DL 70-105 H [id number] 15:57:00 Test Item Value Reference Range Interpretation Comments GLUBED (test code = GLUBED) 126 MG/DL 70-105 H [id number] 11:55:00 Test Item Value Reference Range Interpretation Comments GLUBED (test code = GLUBED) 137 MG/DL 70-105 H BASIC METABOLIC [id number] 09:48:00 Test Item Value Reference Range Interpretation [...] 8.9 mg/dL 8.5-10.5 N = CA) VANCOMYCIN [id number] 09:44:00 Test Item Value Reference Range Interpretation Comments VANCOMYCIN TROUGH 19.9 ug/ml 10.0-20.0 N Please ref er to (test code = VANCT) Medicati on Administration Record (MAR) forlast d ose date and time. CBC W/AUTO [id number] 09:22:00 Test Item Value Reference Range Interpretation [...] = BA#) 0.0 x10 3/uL 0.0-0.1 N [id number] 07:10:00 Test Item Value Reference Range Interpretation Comments CREATININE (test code = CREAT) 0.65 mg/dL 0.44-1.03 N [id number] 04:46:00 Test Item Value Reference Range Interpretation Comments GLUBED (test code = GLUBED) 122 MG/DL 70-105 H [id number] 16:41:00 Test Item Value Reference Range Interpretation Comments GLUBED (test code = GLUBED) 128 MG/DL 70-105 H [id number] 11:51:00 Test Item Value Reference Range Interpretation Comments GLUBED (test code = GLUBED) 130 MG/DL 70-105 H VANCOMYCIN [id number] 09:01:00 Test Item Value Reference Range Interpretation Comments VANCOMYCIN TROUGH 11.4 ug/ml 10.0-20.0 N Please ref er to (test code = VANCT) Medicati on Administration Record (MAR) forlast d ose date and time. BASIC METABOLIC [id number] 08:56:00 Test Item Value Reference Range Interpretation [...] mg/dL 8.5-10.5 N = CA) CBC W/AUTO [id number] 08:52:00 Test Item Value Reference Range Interpretation [...] = BA#) 0.0 x10 3/uL 0.0-0.1 N [id number] 06:04:00 Test Item Value Reference Range Interpretation Comments GLUBED (test code = GLUBED) 129 MG/DL 70-105 H [id number] 23:59:00 Test Item Value Reference Range Interpretation Comments GLUBED (test code = GLUBED) 118 MG/DL 70-105 H [id number] 15:29:00 Test Item Value Reference Range Interpretation Comments GLUBED (test code = GLUBED) 137 MG/DL 70-105 H [id number] 10:42:00 Test Item Value Reference Range Interpretation Comments GLUBED (test code = GLUBED) 160 MG/DL 70-105 H [id number] 06:44:00 Test Item Value Reference Range Interpretation Comments GLUBED (test code = GLUBED) 143 MG/DL 70-105 H [id number] 06:32:00 Test Item Value Reference Range Interpretation Comments CREATININE (test code = CREAT) 0.61 mg/dL 0.44-1.03 N [id number] 22:14:00 Test Item Value Reference Range Interpretation Comments GLUBED (test code = GLUBED) 134 MG/DL 70-105 H [id number] 15:26:00 Test Item Value Reference Range Interpretation Comments GLUBED (test code = GLUBED) 127 MG/DL 70-105 H [id number] 10:51:00 Test Item Value Reference Range Interpretation Comments GLUBED (test code = GLUBED) 136 MG/DL 70-105 H [id number] 07:11:00 Test Item Value Reference Range Interpretation Comments CREATININE (test code = CREAT) 0.70 mg/dL 0.44-1.03 N [id number] 05:48:00 Test Item Value Reference Range Interpretation Comments GLUBED (test code = GLUBED) 104 MG/DL 70-105 N [id number] 20:44:00 Test Item Value Reference Range Interpretation Comments GLUBED (test code = GLUBED) 93 MG/DL 70-105 N [id number] 16:59:00 Test Item Value Reference Range Interpretation Comments GLUBED (test code = GLUBED) 110 MG/DL 70-105 H [id number] 12:41:00 Test Item Value Reference Range Interpretation Comments GLUBED (test code = GLUBED) 107 MG/DL 70-105 H [id number] 06:04:00 Test Item Value Reference Range Interpretation Comments GLUBED (test code = GLUBED) 100 MG/DL 70-105 N [id number] 20:16:00 Test Item Value Reference Range Interpretation Comments GLUBED (test code = GLUBED) 104 MG/DL 70-105 N [id number] 16:43:00 Test Item Value Reference Range Interpretation Comments GLUBED (test code = GLUBED) 139 MG/DL 70-105 H [id number] 12:11:00 Test Item Value Reference Range Interpretation Comments GLUBED (test code = GLUBED) 112 MG/DL 70-105 H [id number] 08:07:00 Test Item Value Reference Range Interpretation Comments CREATININE (test code = CREAT) 0.59 mg/dL 0.44-1.03 N [id number] 05:27:00 Test Item Value Reference Range Interpretation Comments GLUBED (test code = GLUBED) 135 MG/DL 70-105 H [id number] 00:46:00 Test Item Value Reference Range Interpretation Comments GLUBED (test code = GLUBED) 117 MG/DL 70-105 H [id number] 16:35:00 Test Item Value Reference Range Interpretation Comments GLUBED (test code = GLUBED) 104 MG/DL 70-105 N [id number] 11:28:00 Test Item Value Reference Range Interpretation Comments GLUBED (test code = GLUBED) 138 MG/DL 70-105 H MISC [id number] 11:03:00 Test Item Value Reference Range Interpretation Comments MISC CHEMISTRY Procaalcitoni n = 0.11 ng/mL (test code = HIGH Ref range = 0.00-0.08 MISCCHEM) Jeri Villalobos : 1975 Patient ReportP atient ID: Age: 46 Account Numb er: [id number] n ID: [id number] Sex: Female Ordering Physic aakash:Ordered Items: Procalci toninDate Collected: 12/2021 Date Received: 03/29 DateReported: 0 03/30/2022 Fasting: Not GivenProcalcito ninTest Current Result and Flag Previous Result and Date UnitsReference IntervalProcalc 0.11 High ng/mL 0.00 -0.08A procalcitonin ( [...] or Stephany rtPerforming Labs01: [place] - [place] [address],[address] D ir: Tiburcio Stveens MDFor Inquiries , the physician may contact Branch: Lab: [phone] ient DetailsLedbettliliana cervantes PiaPhone:Date o f : 04/03/1976Age: 46Sex: FemalePatient I D:Alternate Patient ID:Ramírez muhammad DetailsA [facility] [address] [place], [place]Phone: acc ount Number: [id number] an ID: SIDDIQINPI:Honorio rayo DetailsSpecimen ID: [id number] ontrol ID: [id number] rnate Control Number: [id number] Collected: 12/2021 1328 LocalDate Recei elba: 03/29/2022 0000 ETDate Ent ered: 03/29/2022 2125 ETDate Reported: 03/30 1509 ETRte: 00Date C reated and Stored 03/30/22 1514 ET Final Report Page 1of 1 [id number] 07:01:00 Test Item Value Reference Range Interpretation Comments CREATININE (test code = CREAT) 0.56 mg/dL 0.44-1.03 N [id number] 06:29:00 Test Item Value Reference Range Interpretation Comments GLUBED (test code = GLUBED) 130 MG/DL 70-105 H [id number] 21:10:00 Test Item Value Reference Range Interpretation Comments GLUBED (test code = GLUBED) 99 MG/DL 70-105 N [id number] 16:24:00 Test Item Value Reference Range Interpretation Comments GLUBED (test code = GLUBED) 104 MG/DL 70-105 N [id number] 11:40:00 Test Item Value Reference Range Interpretation Comments GLUBED (test code = GLUBED) 110 MG/DL 70-105 H COMPREHENSIVE METABOLIC [id number] 07:12:00 Test Item Value Reference Range Interpretation [...] 42-121 N PHOSPHATASE (test code = ALKP) [id number] 06:23:00 Test Item Value Reference Range Interpretation Comments GLUBED (test code = GLUBED) 122 MG/DL 70-105 H [id number] 21:53:00 Test Item Value Reference Range Interpretation Comments GLUBED (test code = GLUBED) 112 MG/DL 70-105 H [id number] 15:53:00 Test Item Value Reference Range Interpretation Comments GLUBED (test code = GLUBED) 117 MG/DL 70-105 H PATHOLOGY REVIEW [id number] 11:04:00 Test Item Value Reference Range Interpretation Comments NAME OF TEST PROCALCITONIN (test code = NAMEMISC) GENETIC TEST NO (test code = GENETIC2) PERFORM SITE LCA (test code = LABPERS) TEST COST (test 0.00 code = LABCOST) LIST CPT CODES 000 (test code = MISCCPT) APPROVAL (test YES code = APPROVAL) PATH REVIEW Discussed with Dr. MARES (test William Xiong. Lloyd atient code = PATH is spiking feve rs. REVIEW COM) Dr. Inga wong els Procalcitonin i s necessary for currentpatient care. Procalcitonin o rder is approved. SIGNATURE (test Kale Jewell, code = M.D. SIGNATURE) [id number] 10:36:00 Test Item Value Reference Range Interpretation Comments GLUBED (test code = GLUBED) 100 MG/DL 70-105 N COMPREHENSIVE METABOLIC [id number] 07:52:00 Test Item Value Reference Range Interpretation [...] PHOSPHATASE (test code = ALKP) CBC W/AUTO [id number] 07:38:00 Test Item Value Reference Range Interpretation [...] = BA#) 0.0 x10 3/uL 0.0-0.1 N [id number] 06:28:00 Test Item Value Reference Range Interpretation Comments GLUBED (test code = GLUBED) 106 MG/DL 70-105 H [id number] 21:04:00 Test Item Value Reference Range Interpretation Comments GLUBED (test code = GLUBED) 122 MG/DL 70-105 H [id number] 15:47:00 Test Item Value Reference Range Interpretation Comments GLUBED (test code = GLUBED) 114 MG/DL 70-105 H MISCELLANEOUS LAB SEND [id number] 11:46:00 Test Item Value Reference Range Interpretation Comments MISCELLANEOUS LAB SEND PATHOLOGY REVIEW REQ OUT (test code = MISCLABSO) Test: Procalcitonin, serumOrdering physician contact information: Dr Xiong [phone] test: [id number] 11:03:00 Test Item Value Reference Range Interpretation Comments GLUBED (test code = GLUBED) 120 MG/DL 70-105 H COMPREHENSIVE METABOLIC [id number] 10:43:00 Test Item Value Reference Range Interpretation [...] N PHOSPHATASE (test code = ALKP) VANCOMYCIN [id number] 10:42:00 Test Item Value Reference Range Interpretation Comments VANCOMYCIN TROUGH 16.2 ug/ml 10.0-20.0 N Please ref er to (test code = VANCT) Medicati on Administration Record (MAR) forlast d ose date and time. [id number] 05:41:00 Test Item Value Reference Range Interpretation Comments GLUBED (test code = GLUBED) 121 MG/DL 70-105 H [id number] 03:50:00 Test Item Value Reference Range Interpretation Comments GLUBED (test code = GLUBED) 96 MG/DL 70-105 N [id number] 20:35:00 Test Item Value Reference Range Interpretation Comments GLUBED (test code = GLUBED) 127 MG/DL 70-105 H [id number] 16:32:00 Test Item Value Reference Range Interpretation Comments GLUBED (test code = GLUBED) 116 MG/DL 70-105 H [id number] 11:29:00 Test Item Value Reference Range Interpretation Comments GLUBED (test code = GLUBED) 114 MG/DL 70-105 H URINALYSIS [id number] 08:26:00 Test Item Value Reference Range Interpretation [...] CRYSTALS (test code = CAOXU) CBC W/AUTO [id number] 07:32:00 Test Item Value Reference Range Interpretation [...] 0.0 x10 3/uL 0.0-0.1 N RECOLLECT - [id number] 06:14:00 Test Item Value Reference Range Interpretation Comments GLUBED (test code = GLUBED) 126 MG/DL 70-105 H COMPREHENSIVE METABOLIC [id number] 05:55:00 Test Item Value Reference Range Interpretation [...] 42-121 N PHOSPHATASE (test code = ALKP) [id number] 20:47:00 Test Item Value Reference Range Interpretation Comments GLUBED (test code = GLUBED) 127 MG/DL 70-105 H [id number] 15:48:00 Test Item Value Reference Range Interpretation Comments GLUBED (test code = GLUBED) 138 MG/DL 70-105 H - XR CHEST 1 [id number] 12:31:00 [facility]RELA VILLALOBOSNahum Horton : 1975 Sex: FPatient Name: MIRELA VILLALOBOSNahum Horton Unit No: [id number] EXAMS: CPT: [id number] XR CHEST 1 V 72733 CHEST, 1 VIEW:HISTORY: f/u. Fevers COMPARISON: March 23, 2022 and [...] S: 03/26/2022 (1234) BATCH NO: N/A Name: FABIJERI Horton [facility] Phys: ALATAMIKA.Salas Costa [address] [facility] : 1975 Age: 46 Sex: F [place], [place] [address] [id number] Loc: N.0385 1 Exam Date: 03/26/2022 Status: ADM IN PH: FAX: PAGE 1 Signed [id number] 11:50:00 Test Item Value Reference Range Interpretation Comments GLUBED (test code = GLUBED) 165 MG/DL 70-105 H [id number] 06:35:00 Test Item Value Reference Range Interpretation Comments GLUBED (test code = GLUBED) 106 MG/DL 70-105 H BASIC METABOLIC [id number] 06:29:00 Test Item Value Reference Range Interpretation [...] mg/dL 8.5-10.5 N = CA) CBC W/AUTO [id number] 06:28:00 Test Item Value Reference Range Interpretation [...] = BA#) 0.0 x10 3/uL 0.0-0.1 N [id number] 20:02:00 Test Item Value Reference Range Interpretation Comments GLUBED (test code = GLUBED) 101 MG/DL 70-105 N [id number] 16:31:00 Test Item Value Reference Range Interpretation Comments GLUBED (test code = GLUBED) 141 MG/DL 70-105 H [id number] 11:51:00 Test Item Value Reference Range Interpretation Comments GLUBED (test code = GLUBED) 155 MG/DL 70-105 H [id number] 06:28:00 Test Item Value Reference Range Interpretation Comments GLUBED (test code = GLUBED) 138 MG/DL 70-105 H CBC W/AUTO [id number] 06:20:00 Test Item Value Reference Range Interpretation [...] 0.0 x10 3/uL 0.0-0.1 N BASIC METABOLIC [id number] 06:11:00 Test Item Value Reference Range Interpretation [...] code 8.8 mg/dL 8.5-10.5 N = CA) [id number] 20:18:00 Test Item Value Reference Range Interpretation Comments GLUBED (test code = GLUBED) 156 MG/DL 70-105 H [id number] 16:21:00 Test Item Value Reference Range Interpretation Comments GLUBED (test code = GLUBED) 120 MG/DL 70-105 H [id number] 11:13:00 Test Item Value Reference Range Interpretation Comments GLUBED (test code = GLUBED) 151 MG/DL 70-105 H BASIC METABOLIC [id number] 07:25:00 Test Item Value Reference Range Interpretation [...] mg/dL 8.5-10.5 N = CA) CBC W/AUTO [id number] 07:09:00 Test Item Value Reference Range Interpretation [...] = BA#) 0.0 x10 3/uL 0.0-0.1 N [id number] 06:45:00 Test Item Value Reference Range Interpretation Comments GLUBED (test code = GLUBED) 139 MG/DL 70-105 H [id number] 21:24:00 Test Item Value Reference Range Interpretation Comments GLUBED (test code = GLUBED) 118 MG/DL 70-105 H [id number] 16:08:00 Test Item Value Reference Range Interpretation Comments GLUBED (test code = GLUBED) 169 MG/DL 70-105 H - XR CHEST 1 [id number] 14:06:00 [facility] : 1975 Sex: FPatient Name: JERI VILLALOBOS Unit No: [id number] EXAMS: CPT: [id number] XR CHEST 1 V 12331 XR CHEST 1 VIEW HISTORY: tachycardia COMPARISON: 03/12/2022. FINDINGS: Cardiac silhouette is normal size. Pulmonaryvasculature is within normal limits. Mild haziness seen in the lung bases, particularly on the left.No large effusion seen. No pneumothorax. IMPRESSION: Bibasilar haziness particularly on the left similar to prior study. at 1406 Reported and signed by: Anni Haas MD CC: Sally Garrison MD; Manuel Rose DO Technologist: Fluoro Time: DAP (Gy m2): Air Kerma (mGy): Trscr Dt/Tm: 03/23/2022 (1406) by:[email or web address] Orig PrintD/T: S: 03/23/2022 (9483) BATCH NO: N/A Name: JERI VILLALOBOS [facility] Phys: [id number] - Kentrell Garrison,Sally Vargas [address] : 1975 Age: 46 Sex: F [place] [address] Loc: N.0385 1 Exam Date: 03/23/2022 Status: ADM IN PH: FAX: PAGE 1 Signed [id number] 13:49:00 Test Item Value Reference Range Interpretation Comments MAGNESIUM (test code = MAG) 1.8 mg/dl 1.8-2.5 N [id number] 13:49:00 Test Item Value Reference Range Interpretation Comments TROPONIN-I (test code = TROPI) <0.020 ng/mL 0.000-0.034 N [id number] 12:08:00 Test Item Value Reference Range Interpretation Comments GLUBED (test code = GLUBED) 143 MG/DL 70-105 H [id number] 05:56:00 Test Item Value Reference Range Interpretation Comments GLUBED (test code = GLUBED) 142 MG/DL 70-105 H BASIC METABOLIC [id number] 05:52:00 Test Item Value Reference Range Interpretation [...] mg/dL 8.5-10.5 N = CA) CBC W/AUTO [id number] 05:50:00 Test Item Value Reference Range Interpretation [...] = BA#) 0.0 x10 3/uL 0.0-0.1 N [id number] 20:04:00 Test Item Value Reference Range Interpretation Comments GLUBED (test code = GLUBED) 114 MG/DL 70-105 H [id number] 16:03:00 Test Item Value Reference Range Interpretation Comments GLUBED (test code = GLUBED) 104 MG/DL 70-105 N [id number] 11:10:00 Test Item Value Reference Range Interpretation Comments GLUBED (test code = GLUBED) 129 MG/DL 70-105 H CBC W/AUTO [id number] 07:01:00 Test Item Value Reference Range Interpretation [...] = BA#) 0.0 x10 3/uL 0.0-0.1 N [id number] 06:53:00 Test Item Value Reference Range Interpretation Comments GLUBED (test code = GLUBED) 104 MG/DL 70-105 N BASIC METABOLIC [id number] 06:37:00 Test Item Value Reference Range Interpretation [...] code 8.5 mg/dL 8.5-10.5 N = CA) [id number] 20:39:00 Test Item Value Reference Range Interpretation Comments GLUBED (test code = GLUBED) 97 MG/DL 70-105 N [id number] 16:19:00 Test Item Value Reference Range Interpretation Comments GLUBED (test code = GLUBED) 104 MG/DL 70-105 N - CONT INJ GS/BURNS/JJ/[id number] 11:43:00 [facility] : 1975 Sex: FPatient Name: JERI VILLALOBOS Unit No: [id number] EXAMS: CPT: [id number] CONT INJ GS/BURNS/JJ/GJ 96973 EXAM: XR ABDOMEN CONTRAST INJECTION 2 VIEWS DATE: 03/21/2022 10:13 AM INDICATION: Tube study. COMPARISON: Prior study dated 03/20/2022. TECHNIQUE: Pre and postcontrast abdominal radiographs, before and after contrast injection through gastrostomy tube. FINDINGS: The initial pricing lead radiograph demonstrates gastrostomy tube in the left upper quadrant. Residual contrast noted throughout the colon. Appropriate opacification of the stomach after contrast injection through the gastrostomy tube compatible with appropriate positioning. No extravasation. No definite radiographic evidence of free peritoneal contrast. Vi sualized bowel gas pattern nonobstructive. Lung bases clear. [...] (1146) BATCH NO: N/A Name: JERI VILLALOBOS [facility] Phys: VERGRArchie Llamas MD [address] [facility] : 1975 Age: 46 Sex: F [place] [address] Loc: N.0385 1 Exam Date: 03/21/2022 Status: ADM IN PH:FAX: PAGE 1 Signed [id number] 11:36:00 Test Item Value Reference Range Interpretation Comments GLUBED (test code = GLUBED) 102 MG/DL 70-105 N BASIC METABOLIC [id number] 06:31:00 Test Item Value Reference Range Interpretation [...] code 8.6 mg/dL 8.5-10.5 N = CA) [id number] 06:29:00 Test Item Value Reference Range Interpretation Comments GLUBED (test code = GLUBED) 83 MG/DL 70-105 N CBC W/AUTO [id number] 06:02:00 Test Item Value Reference Range Interpretation [...] = BA#) 0.0 x10 3/uL 0.0-0.1 N [id number] 04:02:00 Test Item Value Reference Range Interpretation Comments GLUBED (test code = GLUBED) 88 MG/DL 70-105 N [id number] 21:27:00 Test Item Value Reference Range Interpretation Comments GLUBED (test code = GLUBED) 86 MG/DL 70-105 N [id number] 17:12:00 Test Item Value Reference Range Interpretation Comments GLUBED (test code = GLUBED) 80 MG/DL 70-105 N - CONT INJ GS/BURNS/JJ/[id number] 14:19:00 [facility] : 1975 Sex: FPatient Name: JERI VILLALOBOS Unit No: [id number] EXAMS: CPT: [id number] CONT INJ GS/BURNS/JJ/GJ 27212 EXAM:XR ABDOMEN 1 VIEW DATE: 03/20/2022 12:22 [...] Rose DO; Archie Sunshine MD Technologist: Oly Mcdonnell Fluoro Time: DAP (Gy m2): Air Kerma (mGy): Trscr Dt/Tm: 03/20/2022 (1419) by:[email or web address] Orig Print D/T: S: 03/20/2022 (6456) BATCH NO: N/A Name: JERI VILLALOBOS [facility] Phys: VERGR01 - VerArchie cortes MD [address] : 1975 Age: 46 Sex: F [place] [address] Loc: N.0385 1 Exam Date: 03/20/2022 Status: ADM IN PH: FAX: PAGE 1 Signed [id number] 11:21:00 Test Item Value Reference Range Interpretation Comments GLUBED (test code = GLUBED) 100 MG/DL 70-105 N BASIC METABOLIC [id number] 09:13:00 Test Item Value Reference Range Interpretation [...] code 8.8 mg/dL 8.5-10.5 N = CA) [id number] 09:13:00 Test Item Value Reference Range Interpretation Comments PHOSPHOROUS (test code = PHOS) 3.5 mg/dl 2.5-4.6 N [id number] 09:13:00 Test Item Value Reference Range Interpretation Comments MAGNESIUM (test code = MAG) 2.1 mg/dl 1.8-2.5 N CBC W/AUTO [id number] 08:42:00 Test Item Value Reference Range Interpretation [...] = BA#) 0.0 x10 3/uL 0.0-0.1 N [id number] 06:38:00 Test Item Value Reference Range Interpretation Comments GLUBED (test code = GLUBED) 115 MG/DL 70-105 H [id number] 21:09:00 Test Item Value Reference Range Interpretation Comments GLUBED (test code = GLUBED) 115 MG/DL 70-105 H UR SODIUM [id number] 17:49:00 Test Item Value Reference Range Interpretation Comments UR SODIUM RANDOM 43 mmol/L No Normal R julia (test code = MACKENZIE) establishe d. UR CHLORIDE [id number] 17:49:00 Test Item Value Reference Range Interpretation Comments UR CHLORIDE RANDOM (test code = 22 mmol/L 15-300 N CLU) UR CREATININE [id number] 17:49:00 Test Item Value Reference Range Interpretation Comments UR CREATININE RANDOM (test code = 135 mg/dL 40-300 N CREATU) URINALYSIS [id number] 17:48:00 Test Item Value Reference Range Interpretation [...] NONE SEEN /HPF NONE SEEN = YEASTU) [id number] 16:41:00 Test Item Value Reference Range Interpretation Comments GLUBED (test code = GLUBED) 87 MG/DL 70-105 N - CT CHEST W/O [id number] 15:49:00 [facility] : 1975 Sex: FPatient Name: JERI VILLALOBOS Unit No: [id number] EXAMS: CPT: [id number] CT CHEST W/O CONTRAST 90852 TECHNIQUE: CT scan of the chest performed from the thoracic inlet through the upper abdomen without the administration of IV contrast. DLP: 409 mGy/cm. The study was performed with radiation dose optimization per ACR practice guidelines and floor supervisor's recommendations which includes: automated exposure control, adjustment [...] CTDI: 11.16 DLP: 408.91 Trscr Dt/Tm: 03/19/2022 (3289) by:Lyly Orig Print D/T: S: 03/19/2022 (2302) BATCH NO: N/A Name: JERI VILLALOBOS [facility] Phys: Ruiz Wolfe MD [address] [facility] : 1975 Age: 46 Sex: F [place] [address] Loc: N.0385 1 Exam Date: 03/19/2022 Status: ADM IN PH: FAX: PAGE 1 Signed [id number] 11:40:00 Test Item Value Reference Range Interpretation Comments GLUBED (test code = GLUBED) 138 MG/DL 70-105 H [id number] 05:46:00 Test Item Value Reference Range Interpretation Comments GLUBED (test code = GLUBED) 112 MG/DL 70-105 H BASIC METABOLIC [id number] 05:04:00 Test Item Value Reference Range Interpretation [...] mg/dL 8.5-10.5 N = CA) CBC W/AUTO [id number] 04:55:00 Test Item Value Reference Range Interpretation [...] = BA#) 0.0 x10 3/uL 0.0-0.1 N [id number] 20:55:00 Test Item Value Reference Range Interpretation Comments GLUBED (test code = GLUBED) 102 MG/DL 70-105 N [id number] 16:05:00 Test Item Value Reference Range Interpretation Comments GLUBED (test code = GLUBED) 95 MG/DL 70-105 N BASIC METABOLIC [id number] 07:53:00 Test Item Value Reference Range Interpretation [...] mg/dL 8.5-10.5 N = CA) CBC W/AUTO [id number] 07:36:00 Test Item Value Reference Range Interpretation [...] BA#) 0.0 x10 3/uL 0.0-0.1 N DIFFERENTIAL [id number] 07:36:00 Test Item Value Reference Range Interpretation Comments PLATELET MORPHOLOGY (test code = Normal NORMAL PLTMORPH) [id number] 06:50:00 Test Item Value Reference Range Interpretation Comments GLUBED (test code = GLUBED) 114 MG/DL 70-105 H [id number] 00:10:00 Test Item Value Reference Range Interpretation Comments GLUBED (test code = GLUBED) 117 MG/DL 70-105 H BASIC METABOLIC [id number] 13:11:00 Test Item Value Reference Range Interpretation [...] mg/dL 8.5-10.5 N = CA) CBC W/AUTO [id number] 13:02:00 Test Item Value Reference Range Interpretation [...] = BA#) 0.1 x10 3/uL 0.0-0.1 N [id number] 05:54:00 Test Item Value Reference Range Interpretation Comments GLUBED (test code = GLUBED) 130 MG/DL 70-105 H [id number] 01:01:00 Test Item Value Reference Range Interpretation Comments GLUBED (test code = GLUBED) 135 MG/DL 70-105 H [id number] 18:22:00 Test Item Value Reference Range Interpretation Comments GLUBED (test code = GLUBED) 121 MG/DL 70-105 H [id number] 12:16:00 Test Item Value Reference Range Interpretation Comments GLUBED (test code = GLUBED) 118 MG/DL 70-105 H [id number] 06:15:00 Test Item Value Reference Range Interpretation Comments GLUBED (test code = GLUBED) 117 MG/DL 70-105 H [id number] 20:47:00 Test Item Value Reference Range Interpretation Comments GLUBED (test code = GLUBED) 107 MG/DL 70-105 H [id number] 15:49:00 Test Item Value Reference Range Interpretation Comments GLUBED (test code = GLUBED) 118 MG/DL 70-105 H [id number] 13:23:00 Test Item Value Reference Range Interpretation Comments GLUBED (test code = GLUBED) 135 MG/DL 70-105 H [id number] 08:39:00 Test Item Value Reference Range Interpretation Comments GLUBED (test code = GLUBED) 120 MG/DL 70-105 H BASIC METABOLIC [id number] 07:52:00 Test Item Value Reference Range Interpretation [...] mg/dL 8.5-10.5 N = CA) CBC W/AUTO [id number] 07:37:00 Test Item Value Reference Range Interpretation [...] = BA#) 0.1 x10 3/uL 0.0-0.1 N [id number] 06:16:00 Test Item Value Reference Range Interpretation Comments GLUBED (test code = GLUBED) 128 MG/DL 70-105 H [id number] 20:22:00 Test Item Value Reference Range Interpretation Comments GLUBED (test code = GLUBED) 120 MG/DL 70-105 H [id number] 14:13:00 Test Item Value Reference Range Interpretation Comments GLUBED (test code = GLUBED) 136 MG/DL 70-105 H BASIC METABOLIC [id number] 09:20:00 Test Item Value Reference Range Interpretation [...] mg/dL 8.5-10.5 N = CA) CBC W/AUTO [id number] 08:59:00 Test Item Value Reference Range Interpretation [...] = BA#) 0.0 x10 3/uL 0.0-0.1 N [id number] 05:46:00 Test Item Value Reference Range Interpretation Comments GLUBED (test code = GLUBED) 149 MG/DL 70-105 H [id number] 20:39:00 Test Item Value Reference Range Interpretation Comments GLUBED (test code = GLUBED) 115 MG/DL 70-105 H [id number] 17:26:00 Test Item Value Reference Range Interpretation Comments GLUBED (test code = GLUBED) 125 MG/DL 70-105 H BASIC METABOLIC [id number] 12:37:00 Test Item Value Reference Range Interpretation [...] mg/dL 8.5-10.5 N = CA) CBC W/AUTO [id number] 12:25:00 Test Item Value Reference Range Interpretation [...] 0.0 x10 3/uL 0.0-0.1 N 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 [id number] 12:16:00 Test Item Value Reference Range Interpretation Comments GLUBED (test code = GLUBED) 120 MG/DL 70-105 H LACTIC [id number] 11:58:00 Test Item Value Reference Range Interpretation Comments LACTIC ACID (test code = LACT) 1.5 mmol/L 0.5-2.0 N [id number] 06:32:00 Test Item Value Reference Range Interpretation Comments GLUBED (test code = GLUBED) 142 MG/DL 70-105 H [id number] 04:46:00 Test Item Value Reference Range Interpretation Comments GLUBED (test code = GLUBED) 133 MG/DL 70-105 H [id number] 21:12:00 Test Item Value Reference Range Interpretation Comments GLUBED (test code = GLUBED) 143 MG/DL 70-105 H [id number] 16:54:00 Test Item Value Reference Range Interpretation Comments GLUBED (test code = GLUBED) 118 MG/DL 70-105 H [id number] 12:48:00 Test Item Value Reference Range Interpretation Comments GLUBED (test code = GLUBED) 137 MG/DL 70-105 H - XR CHEST 1 [id number] 07:19:00 [facility] : 1975 Sex: FPatient Name: JERI VILLALOBOS Unit No: [id number] EXAMS: CPT: [id number] XR CHEST 1 V 41239 Comparison study: 03/09/2022 History: fu pneumonia CHEST [...] (07) BATCH NO: N/A Name: FABIJERI N [facility] Phys: Ruiz Wolfe MD [address] : 1975 Age: 46 Sex: F [place] [address] Loc: N.0385 1 Exam Date: 03/12/2022 Status: ADM IN PH: FAX: PAGE 1 Signed ReportCBC W/AUTO [id number] 07:06:00 Test Item Value Reference Range Interpretation [...] (test code = ADEQUATE ADEQUATE PLTEST) DIFFERENTIAL [id number] 07:06:00 Test Item Value Reference Range Interpretation Comments PLATELET MORPHOLOGY (test code = Normal NORMAL PLTMORPH) BASIC METABOLIC [id number] 06:45:00 Test Item Value Reference Range Interpretation [...] code 9.9 mg/dL 8.5-10.5 N = CA) [id number] 06:45:00 Test Item Value Reference Range Interpretation Comments MAGNESIUM (test code = MAG) 2.4 mg/dl 1.8-2.5 N [id number] 06:32:00 Test Item Value Reference Range Interpretation Comments GLUBED (test code = GLUBED) 125 MG/DL 70-105 H [id number] 21:02:00 Test Item Value Reference Range Interpretation Comments GLUBED (test code = GLUBED) 125 MG/DL 70-105 H [id number] 17:37:00 Test Item Value Reference Range Interpretation Comments GLUBED (test code = GLUBED) 119 MG/DL 70-105 H - XR ABDOMEN [id number] 12:22:00 [facility] : 1975 Sex: FPatient Name: JERI VILLALOBOS Unit No: [id number] EXAMS: CPT: [id number] XR ABDOMEN 1V 59916 ABDOMEN RADIOGRAPH, 1 VIEW: Supine. HISTORY: DISLODGED [...] and signed by: Jalen Black MD CC: Brittney Bryant DO; Manuel Rose DO Technologist: Papito Deleon Time: DAP (Gy m2): Air Kerma (mGy): Trscr Dt/Tm: 03/11/2022 (122) by:[email or web address] Orig Print D/T: S: 03/11/2022 (1225) BATCH NO: N/A Name: JERI VILLALOBOS [facility] Phys: Brittney Zamarripa DO [address] [facility] : 1975 Age: 46 Sex: F [place], [place] [address] Loc: N.0385 1 Exam Date: 03/11/2022 Status: ADM IN PH: FAX: PAGE 1 Signed [id number] 12:21:00 Test Item Value Reference Range Interpretation Comments GLUBED (test code = GLUBED) 124 MG/DL 70-105 H [id number] 04:22:00 Test Item Value Reference Range Interpretation Comments GLUBED (test code = GLUBED) 109 MG/DL 70-105 H [id number] 22:04:00 Test Item Value Reference Range Interpretation Comments GLUBED (test code = GLUBED) 117 MG/DL 70-105 H [id number] 15:19:00 Test Item Value Reference Range Interpretation Comments GLUBED (test code = GLUBED) 126 MG/DL 70-105 H [id number] 10:52:00 Test Item Value Reference Range Interpretation Comments GLUBED (test code = GLUBED) 141 MG/DL 70-105 H [id number] 05:53:00 Test Item Value Reference Range Interpretation Comments GLUBED (test code = GLUBED) 151 MG/DL 70-105 H [id number] 21:42:00 Test Item Value Reference Range Interpretation Comments GLUBED (test code = GLUBED) 131 MG/DL 70-105 H [id number] 15:26:00 Test Item Value Reference Range Interpretation Comments GLUBED (test code = GLUBED) 136 MG/DL 70-105 H [id number] 11:43:00 Test Item Value Reference Range Interpretation Comments GLUBED (test code = GLUBED) 137 MG/DL 70-105 H - XR CHEST 1 [id number] 07:21:00 [facility] : 1975 Sex: FPatient Name: JERI VILLALOBOS Unit No: [id number] EXAMS: CPT: [id number] XR CHEST 1 V 61515 CHEST 1 VIEW: COMPARISON: 03/04/2022 CLINICAL HISTORY: Follow-up pneumonia FINDINGS: Left lower lobe pneumonia hasmildly improved. Mild opacity seen in the right lower lobe, probably atelectasis, improved as well.Small left pleural effusion suspected. No pneumothorax. Heart size is with in normal limit. No acutebony abnormality seen. IMPRESSION: Improved left lower lobe pneumonia and right basilar atelectasis. Small left pleural effusion. at 0721 Reported and signed by: Ryan Cheney MD CC: Ruiz Vaughn MD; Manuel Rose DO Technologist: Virgilio Deleon Time: DAP (Gy m2): Air Kerma (mGy): Trscr Dt/Tm: 03/09/2022 (07) by:Lyly Orig Print D/T: S: 03/09/2022 (0724) BATCH NO: N/A Name: JERI VILLALOBOS [facility] Phys: Ruiz Wolfe MD [address] [place] : 1975 Age: 46 Sex: F [place], [place] [address] Loc: N.0385 1 Exam Date: 03/09/2022 Status: ADM IN PH: FAX: PAGE 1 Signed [id number] 06:09:00 Test Item Value Reference Range Interpretation Comments GLUBED (test code = GLUBED) 160 MG/DL 70-105 H [id number] 20:33:00 Test Item Value Reference Range Interpretation Comments GLUBED (test code = GLUBED) 115 MG/DL 70-105 H [id number] 15:34:00 Test Item Value Reference Range Interpretation Comments GLUBED (test code = GLUBED) 99 MG/DL 70-105 N [id number] 12:13:00 Test Item Value Reference Range Interpretation Comments GLUBED (test code = GLUBED) 112 MG/DL 70-105 H CBC W/AUTO [id number] 06:41:00 Test Item Value Reference Range Interpretation [...] 0.1 x10 3/uL 0.0-0.1 N BASIC METABOLIC [id number] 06:23:00 Test Item Value Reference Range Interpretation [...] code 9.4 mg/dL 8.5-10.5 N = CA) [id number] 06:16:00 Test Item Value Reference Range Interpretation Comments GLUBED (test code = GLUBED) 114 MG/DL 70-105 H [id number] 20:48:00 Test Item Value Reference Range Interpretation Comments GLUBED (test code = GLUBED) 119 MG/DL 70-105 H [id number] 16:26:00 Test Item Value Reference Range Interpretation Comments GLUBED (test code = GLUBED) 132 MG/DL 70-105 H [id number] 13:48:00 Test Item Value Reference Range Interpretation Comments GLUBED (test code = GLUBED) 126 MG/DL 70-105 H CBC W/AUTO [id number] 10:41:00 Test Item Value Reference Range Interpretation [...] BA#) 0.0 x10 3/uL 0.0-0.1 N DIFFERENTIAL [id number] 10:41:00 Test Item Value Reference Range Interpretation Comments PLATELET MORPHOLOGY (test code = Normal NORMAL PLTMORPH) BASIC METABOLIC [id number] 07:30:00 Test Item Value Reference Range Interpretation [...] code 8.7 mg/dL 8.5-10.5 N = CA) [id number] 05:19:00 Test Item Value Reference Range Interpretation Comments GLUBED (test code = GLUBED) 109 MG/DL 70-105 H [id number] 17:24:00 Test Item Value Reference Range Interpretation Comments GLUBED (test code = GLUBED) 118 MG/DL 70-105 H BASIC METABOLIC [id number] 09:47:00 Test Item Value Reference Range Interpretation [...] mg/dL 8.5-10.5 N = CA) CBC W/AUTO [id number] 09:00:00 Test Item Value Reference Range Interpretation [...] = BA#) 0.1 x10 3/uL 0.0-0.1 N [id number] 06:10:00 Test Item Value Reference Range Interpretation Comments GLUBED (test code = GLUBED) 118 MG/DL 70-105 H [id number] 01:06:00 Test Item Value Reference Range Interpretation Comments GLUBED (test code = GLUBED) 110 MG/DL 70-105 H [id number] 15:52:00 Test Item Value Reference Range Interpretation Comments GLUBED (test code = GLUBED) 121 MG/DL 70-105 H [id number] 11:55:00 Test Item Value Reference Range Interpretation Comments GLUBED (test code = GLUBED) 131 MG/DL 70-105 H [id number] 06:06:00 Test Item Value Reference Range Interpretation Comments GLUBED (test code = GLUBED) 119 MG/DL 70-105 H CBC W/AUTO [id number] 05:35:00 Test Item Value Reference Range Interpretation [...] 0.0 x10 3/uL 0.0-0.1 N BASIC METABOLIC [id number] 05:20:00 Test Item Value Reference Range Interpretation [...] code 8.5 mg/dL 8.5-10.5 N = CA) [id number] 20:55:00 Test Item Value Reference Range Interpretation Comments GLUBED (test code = GLUBED) 100 MG/DL 70-105 N [id number] 16:42:00 Test Item Value Reference Range Interpretation Comments GLUBED (test code = GLUBED) 117 MG/DL 70-105 H [id number] 11:49:00 Test Item Value Reference Range Interpretation Comments GLUBED (test code = GLUBED) 140 MG/DL 70-105 H - XR CHEST 1 [id number] 08:08:00 [facility] 1975 Sex: FPatient Name: JERI VILLALOBOS Unit No: [id number] EXAMS: CPT: [id number] XR CHEST 1 V 75025 COMPARISON: 03/01/2022 FINDINGS: Atelectasis or pneumonia has [...] Vaughn MD; Manuel Rose DO Technologist: Oly H. Fluoro Time: DAP (Gy m2): Air Kerma (mGy): Trscr Dt/Tm: 03/04/2022 (807) by:[email or web address] Orig Print D/T:S: 03/04/2022 (0811) BATCH NO: N/A Name: JERI VILLALOBOS [facility] Phys: Ruiz Wolfe MD [address] [facility] : 1975 Age: 46 Sex: F [place], [place] [address] Loc: N.0385 1 Exam Date: 03/04/2022 Status: ADM IN PH: FAX: PAGE 1 Signed [id number] 05:53:00 Test Item Value Reference Range Interpretation Comments GLUBED (test code = GLUBED) 89 MG/DL 70-105 N [id number] 20:59:00 Test Item Value Reference Range Interpretation Comments GLUBED (test code = GLUBED) 131 MG/DL 70-105 H [id number] 15:42:00 Test Item Value Reference Range Interpretation Comments GLUBED (test code = GLUBED) 112 MG/DL 70-105 H [id number] 12:47:00 Test Item Value Reference Range Interpretation Comments GLUBED (test code = GLUBED) 128 MG/DL 70-105 H BASIC METABOLIC [id number] 08:10:00 Test Item Value Reference Range Interpretation [...] mg/dL 8.5-10.5 N = CA) CBC W/AUTO [id number] 08:09:00 Test Item Value Reference Range Interpretation [...] = BA#) 0.0 x10 3/uL 0.0-0.1 N [id number] 06:19:00 Test Item Value Reference Range Interpretation Comments GLUBED (test code = GLUBED) 111 MG/DL 70-105 H [id number] 20:56:00 Test Item Value Reference Range Interpretation Comments GLUBED (test code = GLUBED) 138 MG/DL 70-105 H [id number] 15:58:00 Test Item Value Reference Range Interpretation Comments GLUBED (test code = GLUBED) 137 MG/DL 70-105 H [id number] 12:19:00 Test Item Value Reference Range Interpretation Comments GLUBED (test code = GLUBED) 149 MG/DL 70-105 H [id number] 05:55:00 Test Item Value Reference Range Interpretation Comments GLUBED (test code = GLUBED) 114 MG/DL 70-105 H [id number] 21:40:00 Test Item Value Reference Range Interpretation Comments GLUBED (test code = GLUBED) 101 MG/DL 70-105 N [id number] 16:13:00 Test Item Value Reference Range Interpretation Comments GLUBED (test code = GLUBED) 126 MG/DL 70-105 H [id number] 11:40:00 Test Item Value Reference Range Interpretation Comments GLUBED (test code = GLUBED) 114 MG/DL 70-105 H - XR CHEST 1 [id number] 08:41:00 [facility] PIA N : 1975 Sex: FPatient Name: JERI VILLALOBOS Unit No: [id number] EXAMS: CPT: [id number] XR CHEST 1 V 96710 EXAM: XR CHEST1 VIEW DATE: 03/01/2022 5:00 [...] is normal. The mediastinal contours are normal. Agustin ana and soft tissues: No acute abnormality. IMPRESSION: Left lower lobe infiltrates increased from prior chest radiograph on 02/22/2022. Of note comparison of the extent of pneumonia from the prior CT on 02/25/2022 is difficult due to differences in imaging technique. at 0841 Reported and signed by: Yung Abel MD CC: Ruiz Vaughn MD; Master Rose DO Technologist: Logan Deleon Time: DAP (Gy m2): Air Kerma (mGy): Trscr Dt/Tm: 03/01/2022 (0841) by:[email or web address] Orig Print D/T: S: 03/01/2022 (0844) BATCH NO: N/A Name: JERI VILLALOBOS [facility] Phys: Ruiz Wolfe MD [address] [facility] : 1975 Age: 46 Sex: F [place], [place] [address] Loc: N.0385 1 Exam Date: 03/01/2022 Status: ADM IN PH: FAX: PAGE 1 Signed ReportBASIC METABOLIC [id number] 07:31:00 Test Item Value Reference Range Interpretation [...] mg/dL 8.5-10.5 N = CA) CBC W/AUTO [id number] 07:11:00 Test Item Value Reference Range Interpretation [...] = BA#) 0.0 x10 3/uL 0.0-0.1 N [id number] 06:14:00 Test Item Value Reference Range Interpretation Comments GLUBED (test code = GLUBED) 116 MG/DL 70-105 H [id number] 20:06:00 Test Item Value Reference Range Interpretation Comments GLUBED (test code = GLUBED) 103 MG/DL 70-105 N [id number] 17:02:00 Test Item Value Reference Range Interpretation Comments GLUBED (test code = GLUBED) 95 MG/DL 70-105 N [id number] 11:29:00 Test Item Value Reference Range Interpretation Comments GLUBED (test code = GLUBED) 137 MG/DL 70-105 H BASIC METABOLIC [id number] 07:06:00 Test Item Value Reference Range Interpretation [...] mg/dL 8.5-10.5 N = CA) CBC W/AUTO [id number] 06:47:00 Test Item Value Reference Range Interpretation [...] = BA#) 0.0 x10 3/uL 0.0-0.1 N [id number] 06:12:00 Test Item Value Reference Range Interpretation Comments GLUBED (test code = GLUBED) 135 MG/DL 70-105 H [id number] 00:40:00 Test Item Value Reference Range Interpretation Comments GLUBED (test code = GLUBED) 105 MG/DL 70-105 N [id number] 21:06:00 Test Item Value Reference Range Interpretation Comments GLUBED (test code = GLUBED) 103 MG/DL 70-105 N CBC W/AUTO [id number] 11:26:00 Test Item Value Reference Range Interpretation [...] = EO#) x10 3/uL 0.0-0.5 RECOLLECT CLOTTEDWBC [id number] 11:26:00 Test Item Value Reference Range Interpretation [...] NONE SEEN A POLC) RECOLLECT CLOTTEDCBC W/AUTO [id number] 08:54:00 Test Item Value Reference Range Interpretation Comments WHITE BLOOD CELL Test not 3.2-11.5 N Previously (test code = WBC) performed x10 reported result: 3/uL 10.2 x10\S\3/uLEdite d by: [id number] on 02/27/22:52~~ Corrected Repor t ~~Reason (required):CLOT TE D RED BLOOD CELL (test Test not 3.70-5.10 L Previou sly code = RBC) performed reported result : x10(6)/m 3.59 x10(6)/mEdited by: [id number] on 02/27/22:851~~ Corrected Repor t ~~Reason (required):CLOT TE D HEMOGLOBIN (test code Test not 12.0-15.0 L Previo usly = HGB) performed g/dL reported resu lt: 10.3 g/dLEdited by: [id number] on 02/27/22:851~~ Corrected Repor t ~~Reason (required):CLOT TE D HEMATOCRIT (test code Test not 35.7-44.8 L Previo usly = HCT) performed % reported result : 32.5 %Edited by : [id number] on 02/27/22:852~~ Corrected Repor t ~~Reason (required):CLOT TE D MEAN CELL VOLUME Test not 80-100 N Previously (test code = MCV) performed fL reported r esult: 91 fLEdited by: [id number] on 02/27/22:852~~ Corrected Repor t ~~Reason (required):CLOT TE D MEAN CELL HGB (test Test not 26.2-33.8 N Previous ly code = MCH) performed pg reported result : 28.7 pgEdited b y: [id number] on 02/27/22:852~~ Corrected Repor t ~~Reason (required):CLOT TE D MEAN CELL HGB Test not 30.0-34.0 N Previously CONCENTRATION (test performed g/dL report ed result: code = MCHC) 31.7 g/dLEdited by: [id number] on 02/27/22:0853~~ Corrected Repor t ~~Reason (required):CLOT TE D RED CELL DISTRIBUTION Test not 11.3-14.5 WIDTH (test code = performed % RDW) PLATELET COUNT (test Test not 130-408 code = PLT) performed x10 3/uL MEAN PLATELET VOLUME Test not 8.6-12.6 N Previou sly (test code = MPV) performed fL reported r esult: 11.6 fLEdited b y: [id number] on 02/27/22:0854~~ Corrected Repor t ~~Reason (required):CLOT [...] (test code = PLTEST) performed BASIC METABOLIC [id number] 08:53:00 Test Item Value Reference Range Interpretation [...] code 8.6 mg/dL 8.5-10.5 N = CA) [id number] 06:09:00 Test Item Value Reference Range Interpretation Comments GLUBED (test code = GLUBED) 127 MG/DL 70-105 H [id number] 20:53:00 Test Item Value Reference Range Interpretation Comments GLUBED (test code = GLUBED) 117 MG/DL 70-105 H [id number] 17:43:00 Test Item Value Reference Range Interpretation Comments GLUBED (test code = GLUBED) 92 MG/DL 70-105 N [id number] 12:05:00 Test Item Value Reference Range Interpretation Comments GLUBED (test code = GLUBED) 132 MG/DL 70-105 H BASIC METABOLIC [id number] 10:55:00 Test Item Value Reference Range Interpretation [...] mg/dL 8.5-10.5 L = CA) CBC W/AUTO [id number] 10:42:00 Test Item Value Reference Range Interpretation [...] = BA#) 0.1 x10 3/uL 0.0-0.1 N [id number] 06:15:00 Test Item Value Reference Range Interpretation Comments GLUBED (test code = GLUBED) 115 MG/DL 70-105 H [id number] 03:49:00 Test Item Value Reference Range Interpretation Comments CREATININE (test code = CREAT) 0.61 mg/dL 0.44-1.03 N - DUP VEIN [id number] 23:43:00 [facility] : 1975 Sex: FPatient Name: JERI VILLALOBOS Unit No: [id number] EXAMS: CPT: [id number] DUP VEIN ARTEMIO 98773 BILATERAL LOWER EXTREMITY VENOUS DOPPLER AND COLOR [...] of the right and left lower extremities. wind technician: Wilman Vasquez RVT TECHNICAL NOTES: 1. Venous Doppler waveform analysis and real-time colorduplex imaging of the deep veins of the [...] acute or chronic deep venous thrombosis or deepvenous obstruction in the visualized veins of the right or left lower extremity. at 2343 Reported and signed by: LISANDRA PADRON MD Name: JERI VILLALOBOS [facility] Phys: HETAL - Manuel Rose [facility] : 1975 Age: 46 Sex: F [place] [address] Loc: N.0385 1 Exam Date: 02/24/2022 Status: ADM IN PH: FAX: PAGE 1 Signed Report (CONTINUED) Patient Name: FABIJERI Unit No: [id number] EXAMS: CPT: [id number] DUP VEIN ARTEMIO 48990 (Continued) CC: Manuel Rose DO Technologist: Wilman Stubbs Probe: Mj Dt/Tm: 02/25/2022 (2342) by:Basil Orig Print D/T: S: 02/25/2022 (2345) BATCH NO: N/A Name: FABIJERI COTO [facility] Phys: . - Milton,Manuel A D [address] [facility] : 1975 Age: 46 Sex: F [place] [address] Loc: N.0385 1 Exam Date: 02/24/2022 Status: ADM IN PH: FAX: PAGE 2 Signed [id number] 20:34:00 Test Item Value Reference Range Interpretation Comments GLUBED (test code = GLUBED) 128 MG/DL 70-105 H [id number] 16:31:00 Test Item Value Reference Range Interpretation Comments GLUBED (test code = GLUBED) 116 MG/DL 70-105 H [id number] 11:44:00 Test Item Value Reference Range Interpretation Comments GLUBED (test code = GLUBED) 113 MG/DL 70-105 H - CT CHEST W/O [id number] 11:33:00 [facility] : 1975 Sex: FPatient Name: JERI VILLALOBOS Unit No: [id number] EXAMS: CPT: [id number] CT CHEST W/O CONTRAST 58151 EXAM: CT CHEST WITHOUT CONTRAST DATE: 02/25/2022 [...] IV contrast: None. DLP (mGy-cm): 487.09 FINDINGS: Collar Turner Operator: Noncontributory. Lines, tubes and hardware: A tracheostomy appliance is seen, with the tip above the ketty. A gastrostomy tube is also seen within the gastric body. Lower neck: The visible portions or thelower neck and thyroid are unremarkable. Axilla: Multiple [...] disc spaces are otherwise preserved. Name: FABIJERI [facility] Phys: [facility]. Manuel Rose [address] [facility] : 1975 Age: 46 Sex: F [place] [address] Loc: N.0385 1 Exam Date: 02/25/2022 Status: ADM IN PH: FAX: PAGE 1 Signed Report (CONTINUED) Patient Name: MIRELA VILLALOBOSNahum Horton Unit No: [id number] EXAMS: CPT: [id number] CT CHEST W/O CONTRAST 76043 (Continued) Soft tissues: B ilateral breast implants are seen. IMPRESSION: Extensive opacities in the majority of the left lowerlobe with multiple air bronchograms, consistent with pneumonia. Dependent opacities in the right lower lobe represent atelectasis and/or consolidation. at 1133 Reported and signed by: Yung Abel MD CC: Manuel Rose DO Technologist: Suni Velazquez CTDI: 12.60 DLP: 487.09 Trscr Dt/Tm: 02/25/2022 (1133) by:[email or web address] Orig Print D/T: S: 02/25/2022 (1136) BATCH NO: N/A Name: JERI VILLALOBOS [facility] Phys: SIDFA.01 - MiltonManuel A D [address] : 1975 Age: 46 Sex: F [place] [address] Loc: N.0385 1 Exam Date: 02/25/2022 Status: ADM IN PH: FAX: PAGE 2 Signed Report- DUP VEIN [id number] 11:14:00 [facility] : 1975 Sex: FPatient Name: JERI VILLALOBOS Unit No: [id number] EXAMS: CPT: [id number] DUP VEIN ARTEMIO 39887 EXAM: US BILATERAL UPPER EXTREMITY VENOUS DOPPLER [...] superficial vein thrombosis surrounding the right basilic venousline. at 1114 Reported and signed by: Yung Abel MD Name: JERI VILLALOBOS [facility] Phys: SIDFA.01 - [place],Manuel A D [address] : 1975 Age: 46 Sex: F [place] [address] Loc: N.0385 1 Exam Date:02/25/2022 Status: ADM IN PH: FAX: PAGE 1 Signed Report (CONTINUED) Patient Name: JERI VILLALOBOS Unit No: [id number] EXAMS: CPT: [id number] DUP VEIN ARTEMIO 38176 (Continued) CC: Manuel Rose DO Technologist: Wilman Stubbs Probe: Mj Dt/Tm: 02/25/2022 (1114) by:[email or web address] Orig Print D/T: S: 02/25/2022 (1117) BATCH NO: N/A Name: JERI VILLALOBOS [facility] Phys: SIDFA. - [place],Manuel A D [address] : 1975 Age: 46 Sex: F [place] [address] Loc: N.0385 1 Exam Date: 02/25/2022 Status: ADM IN PH: FAX: PAGE 2 Signed ReportBASIC METABOLIC [id number] 08:25:00 Test Item Value Reference Range Interpretation [...] mg/dL 8.5-10.5 L = CA) REDRAWCBC W/AUTO [id number] 07:31:00 Test Item Value Reference Range Interpretation [...] 10.4 fL 8.6-12.6 N = MPV) WBC [id number] 07:31:00 Test Item Value Reference Range Interpretation [...] 0.00 10 3/uL 0.00-0.00 N = OCT#) [id number] 05:47:00 Test Item Value Reference Range Interpretation Comments GLUBED (test code = GLUBED) 135 MG/DL 70-105 H [id number] 20:40:00 Test Item Value Reference Range Interpretation Comments GLUBED (test code = GLUBED) 121 MG/DL 70-105 H [id number] 17:03:00 Test Item Value Reference Range Interpretation Comments GLUBED (test code = GLUBED) 113 MG/DL 70-105 H VANCOMYCIN [id number] 13:43:00 Test Item Value Reference Range Interpretation Comments VANCOMYCIN TROUGH 15.9 ug/ml 10.0-20.0 N Please ref er to (test code = VANCT) Medicati on Administration Record (MAR) forlast d ose date and time. [id number] 11:50:00 Test Item Value Reference Range Interpretation Comments GLUBED (test code = GLUBED) 139 MG/DL 70-105 H BASIC METABOLIC [id number] 07:47:00 Test Item Value Reference Range Interpretation [...] mg/dL 8.5-10.5 L = CA) CBC W/AUTO [id number] 07:37:00 Test Item Value Reference Range Interpretation [...] = BA#) 0.1 x10 3/uL 0.0-0.1 N [id number] 06:21:00 Test Item Value Reference Range Interpretation Comments GLUBED (test code = GLUBED) 141 MG/DL 70-105 H [id number] 21:37:00 Test Item Value Reference Range Interpretation Comments GLUBED (test code = GLUBED) 135 MG/DL 70-105 H [id number] 17:38:00 Test Item Value Reference Range Interpretation Comments GLUBED (test code = GLUBED) 144 MG/DL 70-105 H [id number] 11:57:00 Test Item Value Reference Range Interpretation Comments GLUBED (test code = GLUBED) 141 MG/DL 70-105 H VANCOMYCIN [id number] 07:35:00 Test Item Value Reference Range Interpretation Comments VANCOMYCIN TROUGH 10.8 ug/ml 10.0-20.0 N Please ref er to (test code = VANCT) Medicati on Administration Record (MAR) forlast d ose date and time. [id number] 06:05:00 Test Item Value Reference Range Interpretation Comments GLUBED (test code = GLUBED) 139 MG/DL 70-105 H CBC W/AUTO [id number] 05:22:00 Test Item Value Reference Range Interpretation [...] 0.1 x10 3/uL 0.0-0.1 N BASIC METABOLIC [id number] 05:11:00 Test Item Value Reference Range Interpretation [...] code 8.5 mg/dL 8.5-10.5 N = CA) [id number] 21:02:00 Test Item Value Reference Range Interpretation Comments GLUBED (test code = GLUBED) 164 MG/DL 70-105 H LACTIC [id number] 18:08:00 Test Item Value Reference Range Interpretation Comments LACTIC ACID (test code = LACT) 1.2 mmol/L 0.5-2.0 N - XR CHEST 1 [id number] 14:36:00 [facility] [place] : 1975 Sex: FPatient Name: JERI VILLALOBOS [facility] Unit No: [id number] EXAMS: CPT: [id number] XR CHEST 1 V 74978 EXAM: XR CHEST 1 VIEW DATE: 02/22/2022 [...] m2): Air Kerma (mGy): Trscr Dt/Tm: 02/22/2022 (4906) by:[email or web address] Orig Print D/T: S: 02/22/2022 (1434) BATCH NO: N/A Name: JERI VILLALOBOS [facility] Phys: SIDFA.01 - Manuel Rose [address] [facility] : 1975 Age: 46 Sex: F [place] [address] Loc: N.0353 1 Exam Date: 02/22/2022 Status: [...] culture: Temperature > 100.4 FSpecimen Description: CATHETERIZED (STRAIGHT)[id number] 11:40:00 Test Item Value Reference Range Interpretation Comments GLUBED (test code = GLUBED) 168 MG/DL 70-105 H BASIC METABOLIC [id number] 06:49:00 Test Item Value Reference Range Interpretation [...] code 9.5 mg/dL 8.5-10.5 N = CA) [id number] 06:49:00 Test Item Value Reference Range Interpretation Comments MAGNESIUM (test code = MAG) 2.4 mg/dl 1.8-2.5 N CBC W/AUTO [id number] 06:34:00 Test Item Value Reference Range Interpretation [...] = BA#) 0.1 x10 3/uL 0.0-0.1 N [id number] 05:45:00 Test Item Value Reference Range Interpretation Comments GLUBED (test code = GLUBED) 172 MG/DL 70-105 H [id number] 19:41:00 Test Item Value Reference Range Interpretation Comments GLUBED (test code = GLUBED) 138 MG/DL 70-105 H [id number] 15:35:00 Test Item Value Reference Range Interpretation Comments GLUBED (test code = GLUBED) 155 MG/DL 70-105 H [id number] 12:37:00 Test Item Value Reference Range Interpretation Comments GLUBED (test code = GLUBED) 157 MG/DL 70-105 H - XR CHEST 1 [id number] 09:18:00 [facility] : 1975 Sex: FPatient Name: JERI VILLALOBOS Unit No: [id number] EXAMS: CPT: [id number] XR CHEST 1 V 03189 EXAM: XR CHEST1 VIEW DATE: 02/21/2022 8:14 [...] MD CC: Manuel Rose DO Technologist: Logan Gill Fluoro Time: DAP (Gy m2): Air Kerma (mGy): Trscr Dt/Tm: 02/21/2022 (09) by:[email or web address] Orig Print D/T: S: 02/21/2022 (920) BATCH NO: N/AName: JERI VILLALOBOS [facility] Phys: SIDFA. - [place],Manuel Grant [address] [place] : 1975 Age: 46 Sex: F [place] [address] Loc: N.0353 1 Exam Date: 02/21/2022 Status: ADM IN PH: FAX: PAGE 1 Signed ReportCBC W/AUTO [id number] 07:45:00 Test Item Value Reference Range Interpretation [...] 0.1 x10 3/uL 0.0-0.1 N BASIC METABOLIC [id number] 07:22:00 Test Item Value Reference Range Interpretation [...] code 9.1 mg/dL 8.5-10.5 N = CA) [id number] 07:09:00 Test Item Value Reference Range Interpretation Comments GLUBED (test code = GLUBED) 160 MG/DL 70-105 H [id number] 20:59:00 Test Item Value Reference Range Interpretation Comments GLUBED (test code = GLUBED) 122 MG/DL 70-105 H BASIC METABOLIC [id number] 16:30:00 Test Item Value Reference Range Interpretation [...] mg/dL 8.5-10.5 N = CA) CBC W/AUTO [id number] 16:02:00 Test Item Value Reference Range Interpretation [...] = BA#) 0.1 x10 3/uL 0.0-0.1 N [id number] 15:05:00 Test Item Value Reference Range Interpretation Comments GLUBED (test code = GLUBED) 142 MG/DL 70-105 H [id number] 10:44:00 Test Item Value Reference Range Interpretation Comments GLUBED (test code = GLUBED) 150 MG/DL 70-105 H [id number] 06:45:00 Test Item Value Reference Range Interpretation Comments GLUBED (test code = GLUBED) 153 MG/DL 70-105 H [id number] 21:00:00 Test Item Value Reference Range Interpretation Comments GLUBED (test code = GLUBED) 135 MG/DL 70-105 H [id number] 12:11:00 Test Item Value Reference Range Interpretation Comments GLUBED (test code = GLUBED) 127 MG/DL 70-105 H - XR CHEST 1 [id number] 07:51:00 [facility] : 1975 Sex: FPatient Name: JERI VILLALOBOS Unit No: [id number] EXAMS: CPT: [id number] XR CHEST 1 V 35424 Comparison study: 02/15/2022 History: Respiratory failure CHEST [...] subsegmental atelectasis and/or infiltrates. at 0751 Reported andsigned by: Travis Bashir MD CC: Love Kumar MD; Shun Bronson NP Technologist: Neris Deleon Time: DAP (Gy m2): Air Kerma (mGy): Trscr Dt/Tm: 02/19/2022 (0751) by:[email or web address] Orig Print D/T:S: 02/19/2022 (0754) BATCH NO: N/A Name: JERI VILLALOBOS [facility] Phys: Shun Garcia NP [address] [place] : 1975 Age: 46 Sex: F [place], [place] [address] Loc: N.2051 1 Exam Date: 02/19/2022 Status: ADM IN PH: FAX: PAGE 1 Signed Report [id number] 06:40:00 Test Item Value Reference Range Interpretation Comments GLUBED (test code = GLUBED) 152 MG/DL 70-105 H BASIC METABOLIC [id number] 04:44:00 Test Item Value Reference Range Interpretation [...] code 9.5 mg/dL 8.5-10.5 N = CA) [id number] 04:44:00 Test Item Value Reference Range Interpretation Comments PHOSPHOROUS (test code = PHOS) 5.5 mg/dl 2.5-4.6 H [id number] 04:44:00 Test Item Value Reference Range Interpretation Comments MAGNESIUM (test code = MAG) 2.3 mg/dl 1.8-2.5 N CBC W/AUTO [id number] 04:30:00 Test Item Value Reference Range Interpretation [...] = BA#) 0.1 x10 3/uL 0.0-0.1 N [id number] 00:35:00 Test Item Value Reference Range Interpretation Comments GLUBED (test code = GLUBED) 136 MG/DL 70-105 H [id number] 16:43:00 Test Item Value Reference Range Interpretation Comments GLUBED (test code = GLUBED) 140 MG/DL 70-105 H [id number] 07:44:00 Test Item Value Reference Range Interpretation Comments GLUBED (test code = GLUBED) 152 MG/DL 70-105 H [id number] 07:44:00 Test Item Value Reference Range Interpretation Comments GLUBED (test code = GLUBED) 97 MG/DL 70-105 N [id number] 06:24:00 Test Item Value Reference Range Interpretation Comments GLUBED (test code = GLUBED) 142 MG/DL 70-105 H CBC W/AUTO [id number] 06:08:00 Test Item Value Reference Range Interpretation [...] 0.1 x10 3/uL 0.0-0.1 N BASIC METABOLIC [id number] 04:29:00 Test Item Value Reference Range Interpretation [...] code 10.0 mg/dL 8.5-10.5 N = CA) [id number] 04:29:00 Test Item Value Reference Range Interpretation Comments PHOSPHOROUS (test code = PHOS) 5.0 mg/dl 2.5-4.6 H [id number] 04:29:00 Test Item Value Reference Range Interpretation Comments MAGNESIUM (test code = MAG) 2.3 mg/dl 1.8-2.5 N [id number] 00:48:00 Test Item Value Reference Range Interpretation Comments GLUBED (test code = GLUBED) 103 MG/DL 70-105 N [id number] 16:28:00 Test Item Value Reference Range Interpretation Comments GLUBED (test code = GLUBED) 96 MG/DL 70-105 N - DUP EXTRACRANIAL [id number] 09:49:00 [facility] 1975 Sex: FPatient Name: JERI VILLALOBOS Unit No: [id number] EXAMS: CPT: [id number] DUP EXTRACRANIAL ARTEMIO 45355 BILATERAL CAROTID ARTERY ULTRASOUND DUPLEX SCAN AND [...] evidence of hemodynamically significant lesions, and this isconsistent with stenosis of less than 50%. The Peak Systolic Velocity is less than 1.25 m/sec, and the Peak Diastolic Velocity is less than 0.4 m/sec. The VICA / VCCA ratio is 0.6. LEFT CAROTID Ultrasound and duplex imaging of the left carotid bulb and left internal carotid artery exhibit mild changesof atherosclerotic disease. The actual measured area of stenosis is 22%. The Wave Form Spectral Analysis is normal without evidence of hemodynamically significant lesions, and this is consistent with stenosis of less than 50%. The Peak Systolic Velocity is less than 1.25 m/sec, and the Peak Diastolic Velocity is less than 0.4 m/sec. The VICA / VCCA ratio is 0.8. Name: JERI VILLALOBOS [facility] Phys: Tiburcio Angel MD [address] [facility] : 1975 Age: 46 Sex: F [place], [place] [address] Loc: N.2050 1 Exam Date: 02/16/2022 Status: ADM IN PH: FAX: PAGE 1 Signed Report (CONTINUED) Patient Name: JERI VILLALOBOS Unit No: [id number] EXAMS: CPT: [id number] DUP EXTRACRANIAL ARTEMIO 41320 (Continued) VERTEBRAL ARTERY FLOW Normal antegrade vertebral artery flow bilaterally. at 0949 Reported and signed by: LISANDRA PADRON MD CC: Love Kumar MD; Tiburcio Cartagena MD Technologist: Anu So Probe: Trscr Dt/Tm: 02/17/2022 (0949) by:Basil Orig Print D/T: S: 02/17/2022 (0953) BATCH NO: N/A Name: JERI VILLALOBOS [facility] Phys: Tiburcio Angel MD [address] [facility] : 1975 Age: 46 Sex: F [place], [place] [address]Zqbf No: [id number] Loc: N.2050 1 Exam Date: 02/16/2022 Status: ADM IN PH: FAX: PAGE 2 Signed Report [id number] 07:58:00 Test Item Value Reference Range Interpretation Comments GLUBED (test code = GLUBED) 110 MG/DL 70-105 H HCG [id number] 03:51:00 Test Item Value Reference Range Interpretation [...] nitoring the treatment o fcancer patients PROTHROMBIN [id number] 03:39:00 Test Item Value Reference Range Interpretation [...] .5 recurrent syste chong embolism. THROMBOPLASTIN TIME [id number] 03:39:00 Test Item Value Reference Range Interpretation Comments THROMBOPLASTIN TIME PARTIAL (test 29 SECONDS 25-38 N code = PTT) BASIC METABOLIC [id number] 03:39:00 Test Item Value Reference Range Interpretation [...] mg/dL 8.5-10.5 N = CA) CBC W/AUTO [id number] 03:26:00 Test Item Value Reference Range Interpretation [...] = BA#) 0.1 x10 3/uL 0.0-0.1 N [id number] 00:22:00 Test Item Value Reference Range Interpretation Comments GLUBED (test code = GLUBED) 112 MG/DL 70-105 H [id number] 16:32:00 Test Item Value Reference Range Interpretation Comments GLUBED (test code = GLUBED) 112 MG/DL 70-105 H [id number] 12:51:00 Test Item Value Reference Range Interpretation Comments GLUBED (test code = GLUBED) 118 MG/DL 70-105 H [id number] 07:34:00 Test Item Value Reference Range Interpretation Comments GLUBED (test code = GLUBED) 97 MG/DL 70-105 N COMPREHENSIVE METABOLIC [id number] 07:32:00 Test Item Value Reference Range Interpretation [...] 42-121 N PHOSPHATASE (test code = ALKP) [id number] 04:16:00 Test Item Value Reference Range Interpretation Comments CREATININE (test code = CREAT) 0.63 mg/dL 0.44-1.03 N [id number] 04:16:00 Test Item Value Reference Range Interpretation Comments PHOSPHOROUS (test code = PHOS) 3.9 mg/dl 2.5-4.6 N [id number] 04:16:00 Test Item Value Reference Range Interpretation Comments MAGNESIUM (test code = MAG) 2.0 mg/dl 1.8-2.5 N [id number] 00:03:00 Test Item Value Reference Range Interpretation Comments GLUBED (test code = GLUBED) 110 MG/DL 70-105 H UA RFLX MICR CULT IF [id number] 13:51:00 Test Item Value Reference Range Interpretation [...] for culture: RiskForSepsis-no oth srcSpecimen Description: CATHETERIZED (STRAIGHT)[id number] 11:24:00 Test Item Value Reference Range Interpretation Comments GLUBED (test code = GLUBED) 106 MG/DL 70-105 H - DUP VEIN UNI [id number] 10:04:00 [facility] : 1975 Sex: FPatient Name: JERI VILLALOBOS [facility] Unit No: [id number] EXAMS: CPT: [id number] [address] RIGHT UPPER EXTREMITY VENOUS COLOR DOPPLER SCAN [...] FAMILIA Chavarria Probe: Trscr Dt/Tm: 02/15/2022 (1004) by:BasilHR Orig Print D/T: S: 02/15/2022 (1007) BATCH NO: N/A Name:JERI VILLALOBOS [facility] Phys: JUANCARLOS.02 - Steph Kumari MD [address] [facility] : 1975 Age: 46 Sex: F [place], [place] [address] Loc: N.1 1 Exam Date: 02/14/2022 Status: ADM IN PH: FAX: PAGE 1 Signed [id number] 07:23:00 Test Item Value Reference Range Interpretation Comments GLUBED (test code = GLUBED) 134 MG/DL 70-105 H - XR CHEST 1 [id number] 06:40:00 [facility] : 1975 Sex: FPatient Name: JERI VILLALOBOS Unit No: [id number] EXAMS: CPT: [id number] XR CHEST 1 V 10109 Portable chest, 02/15/2022. Clinical: Aspiration. Comment: The airway and gastric tubes remain in place. The right lung is free of active disease. There is a left basilar consolidation and/or atelectasis. There is no evidence of decompensation. No pneumothorax is detected. The regional skeleton appears stable. IMPRESSION: Increasing opacification of the left base since 02/13/2022. at 0640 Reported and signed by: Curtis Llamas MD CC: Love Kumar MD; Jorje Eller MD Technologist: Virgilio Deleon Time: DAP (Gy m2): Air Kerma (mGy): Trscr Dt/Tm: 02/15/2022 (0640) by:[email or web address] Orig Print D/T: S: 02/15/2022 (0643) BATCH NO: N/A Name: JERI VILLALOBOS [facility] Phys: Jorje Brasher MD [address] : 1975 Age: 46 Sex: F [place], [place] [address] Loc: N.2050 09 Exam Date: 02/15/2022 Status: ADM IN PH: FAX: PAGE 1 Signed [id number] 06:14:00 Test Item Value Reference Range Interpretation Comments GLUBED (test code = GLUBED) 179 MG/DL 70-105 H BASIC METABOLIC [id number] 04:28:00 Test Item Value Reference Range Interpretation [...] code 8.5 mg/dL 8.5-10.5 N = CA) [id number] 04:28:00 Test Item Value Reference Range Interpretation Comments PHOSPHOROUS (test code = PHOS) 3.7 mg/dl 2.5-4.6 N [id number] 04:28:00 Test Item Value Reference Range Interpretation Comments MAGNESIUM (test code = MAG) 1.7 mg/dl 1.8-2.5 L CBC W/AUTO [id number] 04:18:00 Test Item Value Reference Range Interpretation [...] BA#) 0.0 x10 3/uL 0.0-0.1 N SED [id number] 02:39:00 Test Item Value Reference Range Interpretation Comments SED RATE (test code = SEDW) 57 mm/hr 0-20 H HIGH SENSITIVITY [id number] 01:33:00 Test Item Value Reference Range Interpretation Comments HIGH SENSITIVITY CRP (test code = 5.257 mg/dl 0.000-0.747 H CRPHS) [id number] 00:38:00 Test Item Value Reference Range Interpretation Comments GLUBED (test code = GLUBED) 96 MG/DL 70-105 N [id number] 16:56:00 Test Item Value Reference Range Interpretation Comments GLUBED (test code = GLUBED) 124 MG/DL 70-105 H ARTERIAL BLOOD [id number] 10:08:00 Test Item Value Reference Range Interpretation [...] d message] code = MARY) The system Reevoo generated this result transmit may reference range [...] code 12.5 g/dL 12.0-18.0 N = THB) [id number] 08:45:00 Test Item Value Reference Range Interpretation Comments GLUBED (test code = GLUBED) 112 MG/DL 70-105 H [id number] 04:22:00 Test Item Value Reference Range Interpretation Comments PHOSPHOROUS (test code = PHOS) 4.5 mg/dl 2.5-4.6 N [id number] 04:22:00 Test Item Value Reference Range Interpretation Comments MAGNESIUM (test code = MAG) 1.9 mg/dl 1.8-2.5 N BASIC METABOLIC [id number] 04:14:00 Test Item Value Reference Range Interpretation [...] mg/dL 8.5-10.5 N = CA) CBC W/AUTO [id number] 04:03:00 Test Item Value Reference Range Interpretation [...] = BA#) 0.1 x10 3/uL 0.0-0.1 N [id number] 23:41:00 Test Item Value Reference Range Interpretation Comments GLUBED (test code = GLUBED) 89 MG/DL 70-105 N [id number] 18:22:00 Test Item Value Reference Range Interpretation Comments GLUBED (test code = GLUBED) 126 MG/DL 70-105 H - XR CHEST 1 [id number] 06:29:00 [facility] : 1975 Sex: FPatient Name: EJRI VILLALOBOS Unit No: [id number] EXAMS: CPT: [id number] XR CHEST 1 V 28757 Portable chest, 02/13/2022. Clinical: Aspiration. Comment: The [...] Love Kumar MD; Tejas Zapata Technologist: Papito Grider Fluoro Time: DAP (Gy m2): Air Kerma (mGy): Trscr Dt/Tm: 02/13/2022 (06) by:[email or web address] Orig Print D/T: S: 02/13/2022 (0632) BATCH NO: N/A Name: JERI VILLALOBOS [facility] Phys: TRUDI - Tejas Zapata [address] : 1975 Age: 46 Sex: F [place], [place] [address] Loc: N.2050 09 Exam Date: 02/13/2022 Status: ADM IN PH: FAX: PAGE 1 Signed ReportCOMPREHENSIVE METABOLIC [id number] 04:15:00 Test Item Value Reference Range Interpretation [...] 42-121 N PHOSPHATASE (test code = ALKP) [id number] 04:15:00 Test Item Value Reference Range Interpretation Comments PHOSPHOROUS (test code = PHOS) 3.4 mg/dl 2.5-4.6 N [id number] 04:15:00 Test Item Value Reference Range Interpretation Comments MAGNESIUM (test code = MAG) 1.9 mg/dl 1.8-2.5 N CBC W/AUTO [id number] 04:06:00 Test Item Value Reference Range Interpretation [...] = BA#) 0.0 x10 3/uL 0.0-0.1 N [id number] 00:07:00 Test Item Value Reference Range Interpretation Comments GLUBED (test code = GLUBED) 109 MG/DL 70-105 H [id number] 18:06:00 Test Item Value Reference Range Interpretation Comments GLUBED (test code = GLUBED) 113 MG/DL 70-105 H [id number] 12:18:00 Test Item Value Reference Range Interpretation Comments GLUBED (test code = GLUBED) 111 MG/DL 70-105 H - XR CHEST 1 [id number] 06:13:00 [facility] : 1975 Sex: FPatient Name: JERI VILLALOBOS Unit No: [id number] EXAMS: CPT: [id number] XR CHEST 1 V 78807 Portable chest, 02/12/2022. Clinical: Pneumonia. Comment: The [...] 02/12/2022 (0616) BATCHNO: N/A Name: JERI VILLALOBOS [facility] Phys: JUANCARLOS. - Steph Kumari MD [address] [facility] :1975 Age: 46 Sex: F [place] [address] Loc: N.2050 09 Exam Date: 02/12/2022 Status: ADM IN PH: FAX: PAGE 1 Signed ReportCALCIUM [id number] 06:12:00 Test Item Value Reference Range Interpretation Comments CALCIUM IONIZED (test code = WESLY) 1.14 mmol/L 1.13-1.32 N [id number] 05:52:00 Test Item Value Reference Range Interpretation Comments PHOSPHOROUS (test code = PHOS) 2.7 mg/dl 2.5-4.6 N [id number] 05:52:00 Test Item Value Reference Range Interpretation Comments MAGNESIUM (test code = MAG) 1.7 mg/dl 1.8-2.5 L CBC W/AUTO [id number] 05:18:00 Test Item Value Reference Range Interpretation [...] 0.0 x10 3/uL 0.0-0.1 N COMPREHENSIVE METABOLIC [id number] 05:12:00 Test Item Value Reference Range Interpretation [...] 42-121 N PHOSPHATASE (test code = ALKP) [id number] 01:02:00 Test Item Value Reference Range Interpretation Comments GLUBED (test code = GLUBED) 110 MG/DL 70-105 H HGBA1C - GLYCOSYLATED [id number] 19:19:00 Test Item Value Reference Range Interpretation [...] red blood cells - MRI BRAIN W/O [id number] 16:41:00 [facility] : 1975 Sex: FPatient Name: JERI VILLALOBOS Unit No: [id number] EXAMS: CPT: [id number] MRI BRAIN W/O CONTRAST 80807 EXAM: MRI brain without intravenous contrast HISTORY: Reported pontine and cerebellar infarcts. COMPARISON: Head CT 02/11/2022 TECHNIQUE: Multiplanar and multisequence acquisitions of the brain were obtainedwithout intravenous contrast. FINDINGS: Scalp: No abnormal signal. [...] DON MARSHALL MD Name: JERI VILLALOBOS [facility] Phys: JUANCARLOS. - Steph Kumari MD [address] [place] [address] : 1975 Age: 46 Sex: F [address]: [id number] Loc: N.2050 09 Exam Date: 02/11/2022 Status: ADM IN PH: FAX: PAGE 1 Signed Report (CONTINUED) Patient Name: JERI VILLALOBOS Unit No: [id number] EXAMS: CPT: [id number] MRI BRAIN W/O CONTRAST 95168 (Continued) CC: Love Kumar MD; Steph Kumari MD Technologist: Natty Barker Dt/Tm: 02/11/2022 (1641) by:[email or web address] Orig Print D/T: S: 02/11/2022 (1644) BATCH NO: N/A Name: JERI VILLALOBOS [facility] Phys: JUANCARLOS.02 - Steph Kumari MD [address] : 1975 Age: 46 Sex: F [place], [place] [address] Loc: N.2050 09 ExamDate: 02/11/2022 Status: ADM IN PH: FAX: PAGE 2 Signed ReportPROTHROMBIN [id number] 16:14:00 Test Item Value Reference Range Interpretation [...] Mechanical prosthesis hear t valves, 3.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 THROMBOPLASTIN TIME [id number] 16:14:00 Test Item Value Reference Range Interpretation Comments THROMBOPLASTIN TIME PARTIAL (test 31 SECONDS 25-38 N code = PTT) COMPREHENSIVE METABOLIC [id number] 16:03:00 Test Item Value Reference Range Interpretation [...] risk) >23 >11 Spec Comments: MUST BE [id number] 16:03:00 Test Item Value Reference Range Interpretation Comments MAGNESIUM (test code = MAG) 2.1 mg/dl 1.8-2.5 N Spec Comments: MUST BE [id number] 15:49:00 Test Item Value Reference Range Interpretation Comments TROPONIN-I (test code = TROPI) <0.020 ng/mL 0.000-0.034 N CBC W/AUTO [id number] 15:34:00 Test Item Value Reference Range Interpretation [...] 3/uL 0.0-0.1 N - CT HEAD/BRAIN W/O [id number] 13:11:00 [facility] : 1975 Sex: FPatient Name: JERI VILLALOBOS Unit No: [id number] EXAMS: CPT: [id number] CT HEAD/BRAIN W/O CONT 41736 Comparison study: 02/09/2022 HISTORY: anoxic brain injury [...] (1315) BATCH NO: N/A Name: JERI VILLALOBOS [facility] Phys: JUANCARLOS. Steph Kumari MD [address] [facility] : 1975 Age: 46 Sex: F [place] [address] Loc: N.2050 09 Exam Date: 02/11/2022 Status: ADM IN PH: FAX: PAGE 1 Signed [id number] 11:47:00 Test Item Value Reference Range Interpretation Comments GLUBED (test code = GLUBED) 98 MG/DL 70-105 N COMPREHENSIVE METABOLIC [id number] 06:39:00 Test Item Value Reference Range Interpretation [...] N PHOSPHATASE (test code = ALKP) CALCIUM [id number] 06:33:00 Test Item Value Reference Range Interpretation Comments CALCIUM IONIZED (test code = WESLY) 1.12 mmol/L 1.13-1.32 L CBC W/AUTO [id number] 06:27:00 Test Item Value Reference Range Interpretation [...] = BA#) 0.0 x10 3/uL 0.0-0.1 N [id number] 05:34:00 Test Item Value Reference Range Interpretation Comments PHOSPHOROUS (test code = PHOS) 2.1 mg/dl 2.5-4.6 L [id number] 05:34:00 Test Item Value Reference Range Interpretation Comments MAGNESIUM (test code = MAG) 1.9 mg/dl 1.8-2.5 N ARTERIAL BLOOD [id number] 05:23:00 Test Item Value Reference Range Interpretation [...] d message] code = MARY) The system Reevoo generated this result transmit may reference range [...] code 13.3 g/dL 12.0-18.0 N = THB) [id number] 16:35:00 Test Item Value Reference Range Interpretation Comments GLUBED (test code = GLUBED) 71 MG/DL 70-105 N [id number] 12:07:00 Test Item Value Reference Range Interpretation Comments GLUBED (test code = GLUBED) 148 MG/DL 70-105 H [id number] 11:42:00 Test Item Value Reference Range Interpretation Comments GLUBED (test code = GLUBED) 59 MG/DL 70-105 L COVID 19 INHOUSE [id number] 10:50:00 Test Item Value Reference Range Interpretation Comments COVID 19 INHOUSE AG NEGATIVE Negative Negative results should be (test code = treated as pres umptive [id number]) andconfirmed wi th a molecular assay , [...] oms consistent withCOVID-19.Sp ecimen Source: 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) Swab COAGULATION TIME [id number] 08:14:00 Test Item Value Reference Range Interpretation Comments COAGULATION TIME ACTIVATED (test 159 SECONDS 91-151 H code = ACT) - XR ABDOMEN [id number] 07:53:00 [facility] : 1975 Sex: FPatient Name: JERI VILLALOBOS Unit No: [id number] EXAMS: CPT: [id number] XR ABDOMEN 1V 38596 COMPARISON: None available CLINICAL HISTORY: OG TUBE [...] (0756) BATCH NO: N/A Name: JERI VILLALOBOS [facility] Phys: SANWILL01 Tejas Paul [address] : 1975 Age: 46 Sex:F [place], [place] [address] Loc: N.2051 1 Exam Date: 02/10/2022 Status: ADM IN PH: FAX: PAGE 1 Signed Report- XR CHEST 1 [id number] 07:41:00 [facility] : 1975 Sex: FPatient Name: JERI VILLALOBOS Unit No: [id number] EXAMS: CPT: [id number] XR CHEST 1 V 65412 AP CHEST 1 VIEW COMPARISON: February 09, [...] DO; Ra wood Wu NP Technologist: Virgilio Deleon Time: DAP (Gy m2): Air Kerma (mGy): Trscr Dt/Tm: 02/10/2022 (0741) by:[email or web address] Orig Print D/T: S: 02/10/2022 (0744) BATCH NO: N/A Name: JERI VILLALOBOS [facility] Phys: WHIRA01 - Anisa Wu NP [address] [facility] : 1975 Age: 46 Sex: F [place], [place] [address] Loc: N.2050 09 Exam Date: 02/10/2022 Status: ADM IN PH: FAX: PAGE 1 Signed [id number] 07:14:00 Test Item Value Reference Range Interpretation Comments PHOSPHOROUS (test code = PHOS) 2.3 mg/dl 2.5-4.6 L [id number] 07:14:00 Test Item Value Reference Range Interpretation Comments MAGNESIUM (test code = MAG) 1.8 mg/dl 1.8-2.5 N CALCIUM [id number] 06:51:00 Test Item Value Reference Range Interpretation Comments CALCIUM IONIZED (test code = WESLY) 1.11 mmol/L 1.13-1.32 L COMPREHENSIVE METABOLIC [id number] 06:02:00 Test Item Value Reference Range Interpretation [...] PHOSPHATASE (test code = ALKP) ARTERIAL BLOOD [id number] 05:43:00 Test Item Value Reference Range Interpretation [...] d message] code = MARY) The system Reev[employer] generated this result transmitted ref erence range: [...] g/dL 12.0-18.0 N = THB) CBC W/AUTO [id number] 05:06:00 Test Item Value Reference Range Interpretation [...] 3/uL 0.0-0.1 N DRUGS OF ABUSE SCREEN [id number] 19:54:00 Test Item Value Reference Range Interpretation [...] ng/mLRecommende d screening cut-o ff concentrations by [facility] Ab use and Mental Health [facility]. UR CANABINOIDS (test POSITIVE NEGATIVE A This [...] ng/mLRecommende d screening cut-o ff concentrations by [facility] use and [facility]. UR AMPHETAMINE (test POSITIVE NEGATIVE [...] ng/mLRecommende d screening cut-o ff concentrations by [facility] use and [facility]. UR BARBITURATE (test NEGATIVE NEGATIVE This [...] ng/mLRecommende d screening cut-o ff concentrations by [facility] use and [facility]. UR BENZODIAZEPINE NEGATIVE NEGATIVE This is [...] ng/mLRecommende d screening cut-o ff concentrations by [facility] Ab use [facility]. UR OPIATES QUAL (test NEGATIVE NEGATIVE This [...] ng/mLRecommende d screening cut-o ff concentrations by [facility] Ab use [facility]. UR PHENCYCLIDINE NEGATIVE NEGATIVE This is a [...] ng/mLRecommende d screening cut-o ff concentrations by [facility] use [facility]. URINALYSIS [id number] 19:43:00 Test Item Value Reference Range Interpretation [...] code = 1+ /LPF NONE SEEN MUCU) [id number] 17:19:00 Test Item Value Reference Range Interpretation Comments GLUBED (test code = GLUBED) 95 MG/DL 70-105 N ARTERIAL BLOOD [id number] 16:39:00 Test Item Value Reference Range Interpretation [...] d message] code = MARY) The system Reev[employer] generated this result transmit may reference range [...] N = THB) - XR CHEST 1 [id number] 14:10:00 [facility] : 1975 Sex: FPatient Name: JERI VILALLOBOS Unit No: [id number] EXAMS: CPT: [id number] XR CHEST 1 V 52276 XR CHEST 1 VIEW HISTORY: ETT PLACEMENT COMPARISON: 02/09/2022. FINDINGS: ET tube tip is approximately 3.5 cm from the ketty. NG tube tip courses below the diaphragm with the tip excluded from view. Cardiac silhouetteis magnified by projection. Dense airspace consolidation is [...] Air Kerma (mGy): Trscr Dt/Tm: 02/09/2022 (1410) by:[email or web address] Print D/T: S: 02/09/2022 (1414) BATCH NO: N/A Name: JERI VILLALOBOS [facility] Phys: DAMIAN.Derick - Love Kumar V [address] : 1975 Age: 46 Sex: F [place], [place] [address] Loc: N.2051 1 Exam Date: 02/09/2022 Status: ADM IN PH: FAX: PAGE 1 Signed Report- CT C-SPINE W/O [id number] 13:29:00 [facility] : 1975 Sex: FPatient Name: JERI VILLALOBOS Unit No: [id number] EXAMS: CPT: [id number] CT C-SPINE W/O CONT 79384 CT CERVICAL SPINE Multiplanar imaging of the cervical spine was performed without contrast. Radiation dose optimization was achieved by protocols in accordance with standard of practice, department policies and floor supervisor's recommendations with one or more of the [...] disc degeneration and spondylosis. Name: FABIJERI Horton [facility] Phys: Ruiz Wolfe MD [address] [facility] : 1975 Age: 46 Sex: F [place] [address] Loc: N.2050 09 Exam Date: 02/09/2022 Status: ADM IN PH: FAX: PAGE 1 Signed Report (CONTINUED) Patient Name: FABIJERI Horton Unit No: [id number] EXAMS: CPT: [id number] CT C-SPINE W/O CONT 35947 (Continued) Multilevel facet arthrosis. at 1329 Reported and signed by: Derick Norton MD CC: Ruiz Vaughn MD; Manuel Rose DO Technologist: Sarah Perez CTDI: 13.02 DLP: 277.12 Trscr Dt/Tm: 02/09/2022 (1329) by:Cheri Orig Print D/T: S: 02/09/2022 (1332) BATCH NO: N/AName: JERI VILLALOBOS [facility] Phys: Ruiz Wolfe MD [address] : 1975 Age: 46 Sex: F [place] [address] Loc: N.2050 09 Exam Date: 02/09/2022 Status: ADM IN PH: FAX: PAGE 2 Signed Report- CTA CHEST FOR [id number] 13:24:00 [facility] : 1975 Sex: FPatient Name: JERI VILLALOBOS Unit No: [id number] EXAMS: CPT: [id number] [place] [address] CTA CHESTWITH CONTRAST: INDICATIONS:Pulmonary embolism. COMPARISON: None [...] with ACR practice standards and adherence to floor supervisor's recommendations. Contrast: 100cc Isovue-300. Total DPL: 1497.94mGy*cm. [...] and signed by: Jalen Black MD Name: FABIJERI [facility] Phys: Ruiz Wolfe MD [address] : 1975 Age: 46 Sex: F [place], [place] Loc: N.2050 1 Exam Date: 02/09/2022 Status: ADM IN PH: FAX: PAGE 1 Signed Report (CONTINUED) Patient Name: JERI VILLALOBOS [facility] Unit No: [id number] EXAMS: CPT: [id number] [place] [address] (Continued) CC: Ruiz Vaughn MD; Manuel Rose DO Technologist: Sarah Perez CTDI: 11.06 DLP: 398.57 Trscr Dt/Tm: 02/09/2022 (1324) by:[email or web address] Orig Print D/T: S: 02/09/2022 (1327) BATCH NO: N/A Name: FABIJERI [facility] Phys: Ruiz Wolfe MD [address] [facility] : 1975 Age: 46 Sex: F [place], [place] [address] Loc: N.2050 1 Exam Date: 02/09/2022 Status: ADM IN PH: FAX: PAGE 2 Signed Report- CT HEAD/BRAIN W/O [id number] 13:17:00 [facility] AZLEName: JERI VILLALOBOS : 1975 Sex: FPatient Name: MIRELA VILLALOBOSNahum Horton Unit No: [id number] EXAMS: CPT: [id number] CT HEAD/BRAIN W/O CONT 38097 CT HEAD Multiplanar imaging was performed without contrast. Radiation dose optimization was achieved by protocols in accordance with standard of practice, department policies and floor supervisor's recommendations with one or more of the [...] not show any significant mucosal thickening or fluid.CONCLUSION: Negative for acute intracranial abnormality Thank you for allowing me to participate in the care of your patient. Derick Norton MD Neuroradiology at 1317 Reported and signed by: Derick Norton MD Name: JERI VILLALOBOS [facility] Phys: Ruiz Wolfe MD [address] [facility] : 1975 Age: 46 Sex: F [place] [id number] Loc: [id number] 09 Exam Date: 02/09/2022 Status: ADM IN PH: FAX: PAGE 1 Signed Report (CONTINUED) Patient Name: JERI VILLALOBOS Unit No: [id number] EXAMS: CPT: [id number] CT HEAD/BRAIN W/O CONT 39570 (Continued) CC: Ruiz Vaughn MD; Manuel Rose DO Technologist: Sarah Perez CTDI: 45.45 DLP: 736.2 Trscr Dt/Tm: 02/09/2022 (1317) by:Cheri Orig Print D/T: S: 02/09/2022 (1320) BATCH NO: N/A Name: JERI VILLALOBOS [facility] Phys: Ruiz Wolfe MD [address] [facility] : 1975 Age: 46 Sex: F [place] [address] Loc: N.2051 1 Exam Date: 02/09/2022 Status: ADM IN PH: FAX: PAGE 2 Signed ReportLACTIC [id number] 11:06:00 Test Item Value Reference Range Interpretation Comments LACTIC ACID (test code = LACT) 1.6 mmol/L 0.5-2.0 N ARTERIAL BLOOD [id number] 09:33:00 Test Item Value Reference Range Interpretation [...] [Automate d code = MARY) message] The [employer] stem which generated this result transmitted reference [...] g/dL 12.0-18.0 N = THB) CBC W/AUTO [id number] 07:34:00 Test Item Value Reference Range Interpretation [...] 8.8 fL 8.6-12.6 N = MPV) WBC [id number] 07:34:00 Test Item Value Reference Range Interpretation [...] 3/uL 0.00-0.00 N = OCT#) COMPREHENSIVE METABOLIC [id number] 06:52:00 Test Item Value Reference Range Interpretation [...] 42-121 N PHOSPHATASE (test code = ALKP) [id number] 05:45:00 Test Item Value Reference Range Interpretation Comments GLUBED (test code = GLUBED) 150 MG/DL 70-105 H - XR CHEST 1 [id number] 03:56:00 [facility] : 1975 Sex: FPatient Name: JERI VILLALOBOS Unit No: [id number] EXAMS: CPT: [id number] XR CHEST 1 V 47729 CHEST 1 VIEWCLINICAL HISTORY: Shortness of breath COMPARISON: None. A [...] (0400) BATCH NO: N/A Name: JERI VILLALOBOS [facility] Phys: Chris Blas MD [address] [facility] : 1975 Age: 46 Sex: [place] [address] Loc: N.ERS Exam Date: 02/09/2022 Status: REG ER PH: FAX: PAGE 1 Signed Report
--- NOTE | 2022-07-22 16:09 | RAD REPORT ---
EXAM DESCRIPTION: RAD - Chest Single View - 07/22/2022 3:58 pm CLINICAL HISTORY: COUGH COMPARISON: Chest Single View dated 07/14/2022; Chest Single View dated 07/11/2022; Chest Single Vie w dated 06/26/2022; Chest Single View dated 06/16/2022; Chest Abd Pelvis Wo Con dated 07/11/2022 FINDINGS: Lines: Tracheostomy. Lungs: Basilar densities favored to be due to overlapping breast prostheses. No consolidative airspac e disease. Pleural: No significant pleural effusions or pneumothorax. Cardiac: The heart size is within normal limits. Mediastinum: Within normal limits. Bones: No acute fractures. Other: None IMPRESSION: Basilar opacities favored secondary to the overlying breast prostheses. No definite acut e process identified.
--- NOTE | 2022-07-22 17:07 | ER ---
Nurse's Notes [facility] Name: Angelique Villalobos Age: 46 yrs Sex: Female : 1975 Arrival Date: 07/22/2022 Time: 14:39 Bed 7 Private MD: Diagnosis: Tracheostomy complications;Tachycardia, unspecified Presentation: 07/22 15:11 Chief complaint: EMS states: they were called to [facility] for the patient with ap3 elevated heart rate. when EMS arrived, they assisted in suctioning the patients Trach, when they were able to clear the patients secretions, the patients heart rate came back down into normal limits. Coronavirus screen: At this time, the client does not indicate any symptoms associated with coronavirus-19. Ebola Screen: No symptoms or risks identified at this time. 15:11 Method Of Arrival: EMS: [facility] ap3 15:23 Initial Sepsis Screen: Does the patient meet any 2 criteria? No. Patient's initial ap3 sepsis screen is negative. Does the patient have a suspected source of infection? No. Patient's initial sepsis screen is negative. Risk Assessment: Do you want to hurt yourself or someone else? Unable to obtain. Onset of symptoms is unknown. Transition of care: patient was received from another setting of care (long-term care facility), [facility]. 15:23 Acuity: DELMER 2 ap3 Triage Assessment: 15:25 General: Appears uncomfortable, Behavior is crying. Pain: Unable to use pain scale. ap3 patient is nonverbal. Neuro: Level of Consciousness is awake. Cardiovascular: Patient's skin is warm and dry. Respiratory: Airway via trache Sputum is thick, clear. AVIONICS MANAGER: 15:27 LMP N/A - unable to obtain ap3 Historical: - Allergies: 15:24 albuterol sulfate; ap3 - PMHx: 15:24 anoxic brain injury; CVA; Hyperlipidemia; MRSA; ap3 - PSHx: 15:24 PEG tube; tracheostomy; ap3 - Immunization history:: Flu vaccine is up to date. - Social history:: Smoking status: unknown. Screenin:27 Nutritional screening: No deficits noted. Tuberculosis screening: No symptoms or risk ap3 factors identified. Fall Risk None identified. Assessment: 15:10 Reassessment: cleaned pt and changed gown and linen. Suctioned trach, clear/frothy vg1 sputum. 15:40 Reassessment: Patient appears in no apparent distress at this time. Patient and/or vg1 family updated on plan of care and expected duration. Pain level reassessed. Patient is alert, oriented x 3, equal unlabored respirations, skin warm/dry/pink. pt suctioned. 15:50 Reassessment: asked for assistance with IV start; charge nurse aware. vg1 16:10 Reassessment: Patient appears in no apparent distress at this time. Patient and/or vg1 family updated on plan of care and expected duration. Pain level reassessed. Patient is alert, oriented x 3, equal unlabored respirations, skin warm/dry/pink. pt suctioned; tolerated well. 16:26 Reassessment: Curtis HERRERA at bedside attempting an IV via vein finder. vg1 16:55 Reassessment: Dr. Seay at bedside, gave VO to cancel labs and he will discharge. jl 17:00 Reassessment: Patient appears in no apparent distress at this time. Patient is alert, vg1 oriented x 3, equal unlabored respirations, skin warm/dry/pink. Pt suctioned; clear sputum, pt tolerated well. 17:45 Reassessment: Attempted to call [facility] three times for discharge report and request [facility] transportation. [facility] employees unable to hear. [facility] called for transport, [facility]n [facility] notified. 18:00 Reassessment: Patient appears in no apparent distress at this time. Patient is alert, vg1 oriented x 3, equal unlabored respirations, skin warm/dry/pink. Pt suctioned, clear sputum, tolerated well. Vital Signs: 15:11 BP 128 / 63; Pulse 97; Temp 98.8; Pulse Ox 100% ; ap3 16:27 BP 113 / 79; Pulse 105; Resp 24; Pulse Ox 100% on R/A; vg1 17:30 BP 117 / 81; Pulse 94; Resp 19; Pulse Ox 95% on R/A; vg1 18:32 BP 123 / 77; Pulse 88; Resp 18; Pulse Ox 97% on R/A; vg1 ED Course: 14:39 Patient arrived in ED. eb 14:40 Cameron Seay DO is Attending Physician. ms3 15:01 Marlys Reynolds, RN is Primary Nurse. ap3 15:24 Triage completed. ap3 15:28 Arm band placed on right wrist. ap3 15:28 Patient has correct armband on for positive identification. Placed in gown. Bed in low ap3 position. Call light in reach. Side rails up X2. Pulse ox on. NIBP on. Warm blanket given. 16:00 CXR XRAY In Process Unspecified. EDMS Administered Medications: No medications were administered Medication: 15:28 VIS not applicable for this client. ap3 Outcome: 17:06 Discharge ordered by . ms3 19:06 Patient left the ED. tw5 Signatures: Dispatcher [employer] EDMS Robyn Kapadia RN RN jl7 Marlys Reynolds RN RN ap3 Tawanna Hernandez Victoria RN RN vg1 Cameron Seay DO DO ms3 Corie Baptiste tw5 Corrections: (The following items were deleted from the chart) 16:30 16:26 Reassessment: Curtis at bedside attempting an IV via vein finder vg1 vg1 16:30 15:50 Reassessment: asked for assistance with IV start vg1 vg1 18:31 15:10 Reassessment: cleaned pt and changed gown and linen. Suction at bedside. vg1 vg1
--- NOTE | 2022-07-22 17:07 | EDPHYS ---
Physician Documentation [facility] Name: Angelique Villalobos Age: 46 yrs Sex: Female : 1975 Arrival Date: 07/22/2022 Time: 14:39 Bed 7 Private MD: ED Physician Cameron Seay HPI: 07/22 15:05 This 46 yrs old Female presents to ER via Unassigned with complaints of elevated heart ms3 rate. 15:05 46-year-old female presents via [facility] for elevated heart rate. EMS states on ms3 their arrival patient was suctioned with improvement of her symptoms. Patient's heart rate on arrival was 111 bpm. After suctioning patient's heart rate was less than 100. . 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 - Social history:: Smoking status: unknown. ROS: 17:07 Unable to obtain ROS due to patient is non-verbal. ms3 Exam: 17:07 Constitutional: The patient appears alert, awake. ms3 17:07 Head/face: Exam is negative for 17:07 Head/face: Exam is negative for acute changes, abrasion(s), contusion, ecchymosis. 17:07 Neck: External neck: no acute changes, tracheostomy in place. 17:07 Chest/axilla: Inspection: normal, Palpation: is normal. 17:07 Cardiovascular: Rate: tachycardic, Rhythm: regular, Pulses: no pulse deficits are appreciated, Heart sounds: normal. 17:07 Respiratory: the patient does not display signs of respiratory distress, Respirations: no acute changes, labored breathing, is not present, Breath sounds: no acute changes, throughout. 17:07 Abdomen/GI: Inspection: abdomen appears normal, Bowel sounds: normal. 17:07 Musculoskeletal/extremity: Extremities: contractures of UE and LE. Vital Signs: 15:11 BP 128 / 63; Pulse 97; Temp 98.8; Pulse Ox 100% ; ap3 16:27 BP 113 / 79; Pulse 105; Resp 24; Pulse Ox 100% on R/A; vg1 17:30 BP 117 / 81; Pulse 94; Resp 19; Pulse Ox 95% on R/A; vg1 18:32 BP 123 / 77; Pulse 88; Resp 18; Pulse Ox 97% on R/A; vg1 MDM: 14:51 Patient medically screened. ms3 18:13 Data reviewed: vital signs, nurses notes, radiologic studies, and as a result, I will ms3 discharge patient. Counseling: I had a detailed discussion with the patient and/or guardian regarding:. Medical screen evaluation completed. [facility] emergency medical condition absent. ED course: Patient oxygen saturation 100% on room air, respiratory rate 18, heart rate 98. Patient is alert, in no apparent distress, nontoxic-appearing at this time. Chest x-ray similar to previous x-rays. Patient much improved after suctioning.. 07/22 14:53 Order name: CXR XRAY; Complete Time: 16:18 ms3 Administered Medications: No medications were administered Disposition: 18:14 Chart complete. ms3 Disposition Summary: 07/22/22 17:06 Discharge Ordered Location: Home ms3 Condition: Stable ms3 Diagnosis - Tracheostomy complications ms3 - Tachycardia, unspecified ms3 Followup: ms3 - With: Private Physician - When: 1 - 2 days - Reason: Recheck today's complaints Discharge Instructions: - Discharge Summary Sheet ms3 - Tracheostomy ms3 - How to Clean a Tracheostomy Tube, Adult ms3 Forms: - Medication Reconciliation Form ms3 - Thank You Letter ms3 - Antibiotic Education ms3 - Prescription Opioid Use ms3 Signatures: Dispatcher [employer] Marlys Caba, RN RN ap3 Cameron Seay DO DO ms3
[2022-07-22 19:17] VITALS: TEMP 98.8
[2022-07-22 19:19] VITALS: BP 123/77; O2SAT 97
== END 2022-07-22 19:06 | disposition home or self-care (01) ==
LOC: ER 14:37
DX: J95.09 Other tracheostomy complication (principal); R00.0 Tachycardia, unspecified; Z87.820 Personal history of traumatic brain injury
CPT/HCPCS: 71045; 99283

== ENCOUNTER 2022-11-23 10:05 | Inpatient (IN) | payer OTHER, SELFPAY ==
--- OUTSIDE RECORDS SUMMARY | 2022-11-23 10:25 | XMS REPORT | Continuity of Care Document ---
:1975 Author Organization [facility] t Address [address] [facility] [place] [address] Care Team Providers Name Role Phone Rosaura Attending Clinician Unavailable UNKNOWN Attending Clinician Unavailable Estela HODGSON, Maynor Sesay Attending Clinician Unavailable Belem Griggs MD Attending Clinician Unavailable Dajuan HODGSON, Aaron Attending Clinician Alisson Koo MD Attending Clinician ALISSON KOO Attending Clinician Unavailable BELEM GRIGGS Attending Clinician Unavailable Keyshawn Betancourt Attending Clinician [phone] Magda Duval Attending Clinician [phone] Lorna Douglass Attending Clinician Unavailable Rosaura Admitting Clinician Unavailable BELEM GRIGGS Admitting Clinician Unavailable Manuel Rose Admitting Clinician Unavailable Payers Payer Name Policy Type Policy Number Effective Date Expiration Date [facility] MEDICAID - 000 [id number] - PENDING Problems Condition Condition Condition Status Onset Resolution Last Treating Co mments Source Name Details Category Date Date Treatment Clinician Date 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 Staphyloco 00 ccus ccus aureus Aureus infection Infection Urinary Urinary Problem Active [facility] tract Tract 1-27 Medical infectious Infectious 00:00: disease Disease 00 Diarrhea Diarrhea Problem Active [facility] 1-27 Medical 00:00: 00 Urinary Urinary Problem Active [facility] tract Tract 1-27 Medical infection Infection 00:00: caused by Caused by 00 Klebsiella Klebsiella Blister Blister Problem Active [facility] 1-27 Medical 00:00: 00 Anemia Anemia Problem Active [facility] 1-04 Medical 00:00: 00 Tachycardi Tachycardi Problem Active [facility] a a 1-04 Medical 00:00: 00 Pressure Pressure Problem Active 2021-09 [facility] injury of Injury of 2-14 [facility]i [facility] hip Hip 00:00: 00 Pressure Pressure Problem Active 2021-09 [facility] injury of Injury of 2-14 [facility] buttock Buttock 00:00: 00 Moderate Moderate Problem Active 2021-09 [facility] protein-ca Protein-ca 2-05 Me dical joanna joanna 00:00: malnutriti Malnutriti 00 on (weight on (Weight for age for Age 60-74 60-74 percent of Percent of standard) Standard) Pressure Pressure Problem Active 2021-09 [facility] injury of Injury of 1-06 [facility]i [facility]one sacral Sacral 00:00: region of Region of 00 back Back Severe Severe Disease Active [facility] sepsis [facility] Unintentio Unintentio Problem Active [facility] nal weight nal Weight 9-21 Me dical loss Loss 00:00: 00 Total Total Problem Active [facility] self-care Self-care 9-14 Medi simone deficit Deficit 00:00: 00 Lives in a Lives in a Problem Active [facility] nursing Nursing 9-14 Medical home Home 00:00: 00 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 Dysreflexi 9-08 Me dical a a 00:00: 00 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 00:00: hyperactiv Hyperactiv 00 ity ity Disorder Disorder Problem Active [facility] of of 9-08 Medical autonomic Autonomic 00:00: nervous Nervous 00 system System Restlessne Restlessne Problem Active [facility] ss and ss and 8-12 Medical agitation Agitation 00:00: 00 Hypercoagu Hypercoagu Problem Active [facility] lability lability 05-06 Medica l state State 00:00: 00 Tetraplegi Tetraplegi Problem Active [facility] a a 05-06 Medical 00:00: 00 Dysphagia Dysphagia Problem Active [facility] via as a late as a Late 05-06 [facility] simone effect of Effect of 00:00: cerebrovas Cerebrovas 00 cular cular accident Accident Spasm Spasm Problem Active [facility] 8-12 Medical 00:00: 00 Functional Functional Problem Active [facility] quadripleg Quadripleg 05-06 Me dical ia ia 00:00: 00 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 Incontinen 05-06 Me dical ce ce 00:00: 00 Unable to Unable to Problem Active [facility] via communicat Communicat 12 Me dical e e 00:00: 00 Unable to Unable to Problem Active [facility] via communicat Communicat 12 Me dical e needs e Needs 00:00: and wishes and Wishes 00 Cerebellar Cerebellar Problem Active [facility] stroke Stroke Medical syndrome Syndrome Hyperlipid Hyperlipid Problem Active [facility] emia emia Medical Major Major Problem Active [facility] depressive Depressive Me dical disorder Disorder History of History of Problem Active [facility] drug abuse Drug Abuse Me dical Chronic Chronic Problem Active [facility] hypoxemic Hypoxemic [facility] respirator Respirator y failure y Failure Gastrostom [...] ALBUTERO Allergy Active High [facility] 00 Center No DA Active [facility] Allergy 02-09 [place] Informat 00:00: Healthc ion [address] No Known DA Active [facility] Allergie 18 [facility] s 00:00: Health [address] Albutero Allergy Active [facility] l to Medical substanc e Social History Social Habit Start Date Stop [...] Source Former smoker 2022-06-21 00:00:00 2022-06-21 00:00:00 [facility] Medications Ordered Filled Start Stop Current Ordering Indication Dosage Frequency Signature Comments Components Source Medication Medication Date Date Medication? Clinician (SIG) Name Name acetylcyste 2021-09 Yes thick 4mL Q.[id number] Take [address] [facility] ine 20% 0-01 bronchial [id number] by [facility] (MucoMYST) 15:09: secretions 3D nebulizati Medical 200 mg/mL 23 on 3 Center (20 %) (three) nebulizer times solution daily. baclofen 2021-09 Yes muscle 5mg Q.[id number] Take [address] [facility] (LIORESAL) 0-01 spasticity [id number] by mouth 3 [facility] 10 MG 15:09: [...] Center times daily. cloNIDine 2021-09 Yes .1mg Q.[id number] Take 0.[address] [facility] HCL 0-01 [id number] mg by [facility] (CATAPRES) 15:09: 3D mouth 3 Medi simone 0.1 MG 23 (three) Center tablet times daily. gabapentin 2021-09 Yes 100mg Q.[id number] Take [address] [facility] (NEURONTIN) 0-01 [id number] mg by L [facility] 100 MG 15:09: [...] daily. Center acetylcyste 2021-09 Yes thick 4mL Q.[id number] Take [address] [facility] ine 20% 0-01 bronchial [id number] by [facility] (MucoMYST) 15:09: secretions 3D nebulizati Medical 200 mg/mL 23 on 3 Center (20 %) (three) nebulizer times solution daily. baclofen 2021-09 Yes muscle 5mg Q.[id number] Take [address] [facility] (LIORESAL) 0-01 spasticity [id number] by mouth 3 [facility] 10 MG 15:09: [...] Center times daily. cloNIDine 2021-09 Yes .1mg Q.[id number] Take 0.[address] [facility] HCL 0-01 [id number] mg by [facility] (CATAPRES) 15:09: 3D mouth 3 Medi simone 0.1 MG 23 (three) Center tablet times daily. gabapentin 2021-09 Yes 100mg Q.[id number] Take [address] [facility] (NEURONTIN) 0-01 [id number] mg by L [facility] 100 MG 15:09: [...] daily. Center acetylcyste 2021-09 Yes thick 4mL Q.[id number] Take [address] [facility] ine 20% 0-01 bronchial [id number] by [facility] (MucoMYST) 15:09: secretions 3D nebulizati Medical 200 mg/mL 23 on 3 Center (20 %) (three) nebulizer times solution daily. baclofen 2021-09 Yes muscle 5mg Q.[id number] Take [address] [facility] (LIORESAL) 0-01 spasticity [id number] by mouth 3 [facility] 10 MG 15:09: [...] Center times daily. cloNIDine 2021-09 Yes .1mg Q.[id number] Take 0.[address] [facility] HCL 0-01 [id number] mg by [facility] (CATAPRES) 15:09: 3D mouth 3 Medi simone 0.1 MG 23 (three) Center tablet times daily. gabapentin 2021-09 Yes 100mg Q.[id number] Take [address] [facility] (NEURONTIN) 0-01 [id number] mg by L [facility] 100 MG 15:09: [...] daily. Center acetylcyste 2021-09 Yes thick 4mL Q.[id number] Take [address] [facility] ine 20% 0-01 bronchial [id number] by [facility] (MucoMYST) 15:09: secretions 3D nebulizati Medical 200 mg/mL 23 on 3 Center (20 %) (three) nebulizer times solution daily. baclofen 2021-09 Yes muscle 5mg Q.[id number] Take [address] [facility] (LIORESAL) 0-01 spasticity [id number] by mouth 3 [facility] 10 MG 15:09: [...] Center times daily. cloNIDine 2021-09 Yes .1mg Q.[id number] Take 0.[address] [facility] HCL 0-01 [id number] mg by [facility] (CATAPRES) 15:09: 3D mouth 3 Medi simone 0.1 MG 23 (three) Center tablet times daily. gabapentin 2021-09 Yes 100mg Q.[id number] Take [address] [facility] (NEURONTIN) 0-01 [id number] mg by L [facility] 100 MG 15:09: [...] nightly. Medical tablet 42 :00 Center metoprolol 2021- No 25mg Q.5D Take [address] [facility] [address] tartrate 06-24 by mouth 2 [facility] (LOPRESSOR) 10:03: 00:00 (two) Medi simone 25 MG 42 :00 times Center tablet daily. rivaroxaban 2021- No QD Take by [facility] (XARELTO) 06-24 [facility] 10 mg 10:03: 00:00 nightly. Medical tablet 42 :00 Center metoprolol 2021-0 2021- No 25mg Q.5D Take [address] [facility] tartrate 06-24 by mouth 2 [facility] (LOPRESSOR) 10:03: 00:00 (two) Medi simone 25 MG 42 :00 times Center tablet daily. rivaroxaban 2021- No QD Take by [facility] (XARELTO) 06-24 [facility] 10 mg 10:03: 00:00 nightly. Medical tablet 42 :00 Center metoprolol 2021- No 25mg Q.5D Take [address] [facility] [address] tartrate 06-24 by mouth 2 [facility] (LOPRESSOR) 10:03: 00:00 (two) Medi simone 25 MG 42 :00 times Center tablet daily. rivaroxaban 2021- No QD Take by [facility] (XARELTO) 06-24 [facility] 10 mg 10:03: 00:00 nightly. Medical tablet 42 :00 [place] neomycin-ba Yes 1{packe Q.5D Apply [address] [facility] [address] citracnZn-p 9-30 t} packet [facility] olymyxnB 00:00: topically Medi ismone (NEOSPORIN) 00 2 (two) Cente r 3.5-400-5,0 [...] 00 daily. mg-unit-uni t OiPk packet enoxaparin 2-0 Yes 40mg Q24H Inject 0.[address] (LOVENOX) 9-30 mLs (40 mg [facility] 40 mg/0.4 00:00: total) Medica l [facility] daily. neomycin-ba 2-0 Yes 1{packe Q.5D Apply [address] [facility] [address] citracnZn-p 9-30 t} packet [facility] olymyxnB 00:00: topically [facility]i simone (NEOSPORIN) 00 2 (two) Cente r 3.5-400-5,0 times 00 daily. mg-unit-uni t OiPk packet enoxaparin 2-0 Yes 40mg Q24H Inject 0.[address] (LOVENOX) 9-30 mLs (40 mg [facility] 40 mg/0.4 00:00: total) Medica l [facility] [place] usly daily. neomycin-ba 2021-0 Yes 1{packe Q.5D Apply [address] [facility] [address] citracnZn-p 9-30 t} packet [facility] olymyxnB 00:00: topically [facility]i [facility]one (NEOSPORIN) 00 2 (two) Cente r 3.5-400-5,0 times 00 daily. mg-unit-uni t OiPk packet enoxaparin 2021-0 Yes 40mg Q24H Inject 0.[address] (LOVENOX) 9-30 mLs (40 mg [facility] 40 mg/0.4 00:00: total) Medica l mL Syrg 00 [facility] Center usly daily. propranoloL 2021-2022- No 60mg Take [address] [facility] (INDERAL) 06-24-30 tablet (60 [facility] 60 MG 00:00: 23:59 mg total) Medica l tablet 00 :00 by mouth Center every 8 (eight) hours. propranoloL 2021-0 2022- No 60mg Take [address] [facility] (INDERAL) 06-24-30 tablet (60 [facility] 60 MG 00:00: 23:59 mg total) Medica l tablet 00 :00 by mouth Center every 8 (eight) hours. propranoloL 2021-2022- No 60mg Take [address] [facility] (INDERAL) 9- 09-30 tablet (60 [facility] 60 MG 00:00: 23:59 mg total) Medica l tablet 00 :00 by mouth Center every 8 (eight) hours. propranoloL 2022- No 60mg Take [address] [facility] (INDERAL) 9- 09-30 tablet (60 [facility] es 60 MG 00:00: 23:59 mg total) Medica l tablet 00 :00 by mouth Center every 8 (eight) hours. polyvinyl 2021- No 1[drp] Place [address] [facility] [address] [facility] alcohol 9-30 10-30 drop into [facility] (LIQUITEARS 00:00: 23:59 both eyes Medical ARTIFICIAL 00 :00 4 (four) Cente r TEARS) 1.4 times % daily as ophthalmic needed for solution up to 30 days. polyvinyl 2021- No 1[drp] Place [address] alcohol 9-30 10-30 drop into [facility] (LIQUITEARS 00:00: 23:59 both eyes Medical ARTIFICIAL 00 :00 4 (four) Cente r TEARS) 1.4 times % daily as ophthalmic needed for solution up to 30 days. polyvinyl 2021- No 1[drp] Place [address] alcohol 9-30 10-30 drop into [facility] (LIQUITEARS 00:00: 23:59 both eyes Medical ARTIFICIAL 00 :00 4 (four) Cente r TEARS) 1.4 times % daily as ophthalmic needed for solution up to 30 days. polyvinyl 2021- No 1[drp] Place [address] alcohol [...] every day route. route. by oral route. acetaminoph acetaminoph No 15mL Q8H acetaminop [facility] [...] every day route. route. by oral route. albuterol albuterol No 3mL Q6H albuterol [facility] sulfate 2.5 sulfate 2.5 sulfate Medical mg/3 mL mg/3 mL 2.5 mg/3 (0.083 %) (0.083 %) mL (0.083 solution solution %) for for solution nebulizatio nebulizatio for n Inhale 3 n Inhale 3 nebulizati mL every 6 mL every 6 on Inhale hours by hours by 3 mL every nebulizatio nebulizatio 6 hours by n route as n route as nebulizati needed. needed. on route as needed. aspirin 81 aspirin 81 No 1 Q1D aspirin 81 [facility] mg mg mg Medical tablet,damian tablet,damian tablet,del yed release yed release ayed Take 1 Take 1 release tablet tablet Take 1 every day every day tablet by oral by oral every day route. route. by oral route. atorvastati atorvastati No 1 Q1D atorvastat [facility] [...] a route. route. day by oral route. enoxaparin enoxaparin No .6mL Q12H enoxaparin [facility] 60 mg/0.6 60 mg/0.6 60 mg/0.6 Medical mL mL mL subcutaneou subcutaneou subcutaneo s syringe s syringe us syringe Inject 0.6 Inject 0.6 Inject 0.6 mL every 12 mL every 12 mL every hours by hours by 12 hours subcutaneou subcutaneou by s route. s route. subcutaneo us route. gabapentin gabapentin No 1capsul Q8H gabapentin [facility] 100 mg 100 mg e(s) 100 mg Medical capsule capsule capsule Take 1 Take 1 Take 1 capsule capsule capsule every 8 every 8 every 8 hours by hours by hours by oral route. oral route. oral route. ipratropium ipratropium No 3mL Q6H ipratropiu [facility] 0.5 0.5 m 0.5 Medical mg-albutero mg-albutero mg-albuter l 3 mg (2.5 l 3 mg (2.5 ol 3 mg mg base)/3 mg base)/3 (2.5 mg mL mL base)/3 mL nebulizatio nebulizatio nebulizati n soln n soln on soln Inhale 3 mL Inhale 3 mL Inhale 3 every 6 every 6 mL every 6 hours by hours by hours by nebulizatio nebulizatio nebulizati n route. n route. on route. Miralax 17 Miralax 17 No 17g Q1D Miralax 17 [facility] gram/dose gram/dose gram/dose Medical oral powder oral powder oral Take 17 g Take 17 g powder every day every day Take 17 g by oral by oral every day route. route. by oral route. scopolamine scopolamine No 1patch( scopolamin [facility] 1 mg over 3 1 mg over 3 es) e 1 mg Medical days days over 3 transdermal transdermal days patch Apply patch Apply transderma 1 patch 1 patch l patch every 72 every 72 Apply 1 hours by hours by patch transdermal transdermal every 72 route. route. hours by transderma l route. sertraline sertraline No 1 Q1D sertraline [...] Q6H ipratropiu [facility] bromide bromide m bromide [facility] simone 0.02 % 0.02 % 0.02 % [...] at bedtime. bedtime. bedtime. acetaminoph acetaminoph No acetaminop [facility] en 120 en 120 hen 120 Medical mg-codeine mg-codeine mg-codeine 12 mg/5 mL 12 mg/5 mL 12 mg/5 mL oral oral oral solution solution solution GIVE 15ML GIVE 15ML GIVE 15ML VIA GTUBE VIA GTUBE VIA GTUBE EVERY 8 EVERY 8 EVERY 8 HOURS HOURS HOURS acetylcyste acetylcyste No acetylcyst [facility] ine 200 [...] route. route. oral route. clonazepam clonazepam No clonazepam [facility] 0.5 mg 0.5 mg 0.5 mg Medical tablet GIVE tablet GIVE tablet ONE TABLET ONE TABLET GIVE ONE VIA GTUBE VIA GTUBE TABLET VIA THREE TIMES THREE TIMES GTUBE A DAY A DAY THREE TIMES A DAY clonidine clonidine No 1 TID clonidine [facility] [...] every day route. route. by oral route. acetaminoph acetaminoph No acetaminop [facility] en 120 en 120 hen 120 Medical mg-codeine mg-codeine mg-codeine 12 mg/5 mL 12 mg/5 mL 12 mg/5 mL oral oral oral solution solution solution GIVE 15ML GIVE 15ML GIVE 15ML VIA GTUBE VIA GTUBE VIA GTUBE EVERY 8 EVERY 8 EVERY 8 HOURS HOURS HOURS acetylcyste acetylcyste No acetylcyst [facility] ine 200 [...] route. route. oral route. clonazepam clonazepam No clonazepam [facility] 0.5 mg 0.5 mg 0.5 mg Medical tablet GIVE tablet GIVE tablet ONE TABLET ONE TABLET GIVE ONE VIA GTUBE VIA GTUBE TABLET VIA THREE TIMES THREE TIMES GTUBE A DAY A DAY THREE TIMES A DAY clonidine clonidine No 1 TID clonidine [facility] [...] every day route. route. by oral route. acetaminoph acetaminoph No acetaminop [facility] en 120 en 120 hen 120 Medical mg-codeine mg-codeine mg-codeine 12 mg/5 mL 12 mg/5 mL 12 mg/5 mL oral oral oral solution solution solution GIVE 15ML GIVE 15ML GIVE 15ML VIA GTUBE VIA GTUBE VIA GTUBE EVERY 8 EVERY 8 EVERY 8 HOURS HOURS HOURS acetylcyste acetylcyste No acetylcyst [facility] ine 200 [...] route. route. oral route. clonazepam clonazepam No clonazepam [facility] 0.5 mg 0.5 mg 0.5 mg Medical tablet GIVE tablet GIVE tablet ONE TABLET ONE TABLET GIVE ONE VIA GTUBE VIA GTUBE TABLET VIA THREE TIMES THREE TIMES GTUBE A DAY A DAY THREE TIMES A DAY clonidine clonidine No 1 TID clonidine [facility] [...] Q6H ipratropiu [facility] bromide bromide m bromide [facility] 0.02 % 0.02 % 0.02 % solution [...] every day route. route. by oral route. acetaminoph acetaminoph No acetaminop [facility] en 120 en 120 hen 120 Medical mg-codeine mg-codeine mg-codeine 12 mg/5 mL 12 mg/5 mL 12 mg/5 mL oral oral oral solution solution solution GIVE 15ML GIVE 15ML GIVE 15ML VIA GTUBE VIA GTUBE VIA GTUBE EVERY 8 EVERY 8 EVERY 8 HOURS HOURS HOURS acetylcyste acetylcyste No acetylcyst [facility] ine 200 [...] route. route. oral route. clonazepam clonazepam No clonazepam [facility] 0.5 mg 0.5 mg 0.5 mg Medical tablet GIVE tablet GIVE tablet ONE TABLET ONE TABLET GIVE ONE VIA GTUBE VIA GTUBE TABLET VIA THREE TIMES THREE TIMES GTUBE A DAY A DAY THREE TIMES A DAY clonidine clonidine No 1 TID clonidine [facility] [...] Q6H ipratropiu [facility] bromide bromide m bromide [facility] simone 0.02 % 0.02 % 0.02 % [...] day by oral by oral by oral route. route. route. zinc zinc No 1capsul Q1D zinc [facility] sulfate 50 sulfate 50 e(s) sulfate 50 Medical mg zinc mg zinc mg zinc (220 mg) (220 mg) (220 mg) capsule capsule capsule Take 1 Take 1 Take 1 capsule capsule capsule every day every day every day by oral by oral by oral route. route. route. acetaminoph acetaminoph No acetaminop [facility] en 120 en 120 hen 120 Medical mg-codeine mg-codeine mg-codeine 12 mg/5 mL 12 mg/5 mL 12 mg/5 mL oral oral oral solution solution solution GIVE 15ML GIVE 15ML GIVE 15ML VIA GTUBE VIA GTUBE VIA GTUBE EVERY 8 EVERY 8 EVERY 8 HOURS HOURS HOURS acetylcyste acetylcyste No acetylcyst [facility] ine 200 [...] route. route. oral route. clonazepam clonazepam No clonazepam [facility] 0.5 mg 0.5 mg 0.5 mg Medical tablet GIVE tablet GIVE tablet ONE TABLET ONE TABLET GIVE ONE VIA GTUBE VIA GTUBE TABLET VIA THREE TIMES THREE TIMES GTUBE A DAY A DAY THREE TIMES A DAY clonidine clonidine No 1 TID clonidine [facility] [...] Q6H ipratropiu [facility] bromide bromide m bromide [facility] 0.02 % 0.02 % 0.02 % solution [...] day by oral by oral by oral route. route. route. zinc zinc No 1capsul Q1D zinc [facility] sulfate 50 sulfate 50 e(s) sulfate 50 Medical mg zinc mg zinc mg zinc (220 mg) (220 mg) (220 mg) capsule capsule capsule Take 1 Take 1 Take 1 capsule capsule capsule every day every day every day by oral by oral by oral route. route. route. acetaminoph acetaminoph No acetaminop [facility] en 120 en 120 hen 120 Medical mg-codeine mg-codeine mg-codeine 12 mg/5 mL 12 mg/5 mL 12 mg/5 mL oral oral oral solution solution solution GIVE 15ML GIVE 15ML GIVE 15ML VIA GTUBE VIA GTUBE VIA GTUBE EVERY 8 EVERY 8 EVERY 8 HOURS HOURS HOURS atorvastati atorvastati No 1 Q1D atorvastat [facility] [...] route. route. oral route. clonazepam clonazepam No clonazepam [facility] 0.5 mg 0.5 mg 0.5 mg Medical tablet GIVE tablet GIVE tablet ONE TABLET ONE TABLET GIVE ONE VIA GTUBE VIA GTUBE TABLET VIA THREE TIMES THREE TIMES GTUBE A DAY A DAY THREE TIMES A DAY clonidine clonidine No 1 TID clonidine [facility] [...] day by oral by oral by oral route. route. route. zinc zinc No 1capsul Q1D zinc [facility] sulfate 50 sulfate 50 e(s) sulfate 50 Medical mg zinc mg zinc mg zinc (220 mg) (220 mg) (220 mg) capsule capsule capsule Take 1 Take 1 Take 1 capsule capsule capsule every day every day every day by oral by oral by oral route. route. route. acetaminoph acetaminoph No acetaminop [facility] en 120 en 120 hen 120 Medical mg-codeine mg-codeine mg-codeine 12 mg/5 mL 12 mg/5 mL 12 mg/5 mL oral oral oral solution solution solution GIVE 15ML GIVE 15ML GIVE 15ML VIA GTUBE VIA GTUBE VIA GTUBE EVERY 8 EVERY 8 EVERY 8 HOURS HOURS HOURS atorvastati atorvastati No 1 Q1D atorvastat [facility] [...] route. route. oral route. clonazepam clonazepam No clonazepam [facility] 0.5 mg 0.5 mg 0.5 mg Medical tablet GIVE tablet GIVE tablet ONE TABLET ONE TABLET GIVE ONE VIA GTUBE VIA GTUBE TABLET VIA THREE TIMES THREE TIMES GTUBE A DAY A DAY THREE TIMES A DAY clonidine clonidine No 1 TID clonidine [facility] HCl 0.1 mg HCl 0.1 mg HCl 0.1 mg Medical tablet Take tablet Take tablet 1 tablet 3 1 tablet 3 Take 1 times a day times a day tablet 3 by oral by oral times a route as route as day by needed. needed. oral route as needed. ferrous ferrous No 5mL Q1D ferrous [facility] sulfate 300 sulfate 300 sulfate Medical mg (60 mg mg (60 mg 300 mg (60 iron)/5 mL iron)/5 mL mg iron)/5 oral liquid oral liquid mL oral Take 5 mL Take 5 mL liquid every day every day Take 5 mL by oral by oral every day route for route for by oral 30 days. 30 days. route for 30 days. gabapentin gabapentin No 1capsul TID gabapentin [facility] [...] day by oral by oral by oral route. route. route. zinc zinc No 1capsul Q1D zinc [facility] sulfate 50 sulfate 50 e(s) sulfate 50 Medical mg zinc mg zinc mg zinc (220 mg) (220 mg) (220 mg) capsule capsule capsule Take 1 Take 1 Take 1 capsule capsule capsule every day every day every day by oral by oral by oral route. route. route. acetaminoph acetaminoph No acetaminop [facility] en 120 en 120 hen 120 Medical mg-codeine mg-codeine mg-codeine 12 mg/5 mL 12 mg/5 mL 12 mg/5 mL oral oral oral solution solution solution GIVE 15ML GIVE 15ML GIVE 15ML VIA GTUBE VIA GTUBE VIA GTUBE EVERY 8 EVERY 8 EVERY 8 HOURS HOURS HOURS atorvastati atorvastati No 1 Q1D atorvastat [facility] [...] route. route. oral route. clonazepam clonazepam No clonazepam [facility] 0.5 mg 0.5 mg 0.5 mg Medical tablet GIVE tablet GIVE tablet ONE TABLET ONE TABLET GIVE ONE VIA GTUBE VIA GTUBE TABLET VIA THREE TIMES THREE TIMES GTUBE A DAY A DAY THREE TIMES A DAY clonidine clonidine No 1 TID clonidine [facility] HCl 0.1 mg HCl 0.1 mg HCl 0.1 mg Medical tablet Take tablet Take tablet 1 tablet 3 1 tablet 3 Take 1 times a day times a day tablet 3 by oral by oral times a route as route as day by needed. needed. oral route as needed. ferrous ferrous No 5mL Q1D ferrous [facility] sulfate 300 sulfate 300 sulfate Medical mg (60 mg mg (60 mg 300 mg (60 iron)/5 mL iron)/5 mL mg iron)/5 oral liquid oral liquid mL oral Take 5 mL Take 5 mL liquid every day every day Take 5 mL by oral by oral every day route for route for by oral 30 days. 30 days. route for 30 days. gabapentin gabapentin No 1capsul TID gabapentin [facility] [...] day by oral by oral by oral route. route. route. zinc zinc No 1capsul Q1D zinc [facility] sulfate 50 sulfate 50 e(s) sulfate 50 Medical mg zinc mg zinc mg zinc (220 mg) (220 mg) (220 mg) capsule capsule capsule Take 1 Take 1 Take 1 capsule capsule capsule every day every day every day by oral by oral by oral route. route. route. acetaminoph acetaminoph No acetaminop [facility] en 120 en 120 hen 120 Medical mg-codeine mg-codeine mg-codeine 12 mg/5 mL 12 mg/5 mL 12 mg/5 mL oral oral oral solution solution solution GIVE 15ML GIVE 15ML GIVE 15ML VIA GTUBE VIA GTUBE VIA GTUBE EVERY 8 EVERY 8 EVERY 8 HOURS HOURS HOURS atorvastati atorvastati No 1 Q1D atorvastat [facility] [...] route. route. oral route. clonazepam clonazepam No clonazepam [facility] 0.5 mg 0.5 mg 0.5 mg Medical tablet GIVE tablet GIVE tablet ONE TABLET ONE TABLET GIVE ONE VIA GTUBE VIA GTUBE TABLET VIA THREE TIMES THREE TIMES GTUBE A DAY A DAY THREE TIMES A DAY clonidine clonidine No 1 TID clonidine [facility] HCl 0.1 mg HCl 0.1 mg HCl 0.1 mg Medical tablet Take tablet Take tablet 1 tablet 3 1 tablet 3 Take 1 times a day times a day tablet 3 by oral by oral times a route as route as day by needed. needed. oral route as needed. ferrous ferrous No 5mL Q1D ferrous [facility] sulfate 300 sulfate 300 sulfate Medical mg (60 mg mg (60 mg 300 mg (60 iron)/5 mL iron)/5 mL mg iron)/5 oral liquid oral liquid mL oral Take 5 mL Take 5 mL liquid every day every day Take 5 mL by oral by oral every day route for route for by oral 30 days. 30 days. route for 30 days. gabapentin gabapentin No 1capsul TID gabapentin [facility] [...] day by oral by oral by oral route. route. route. zinc zinc No 1capsul Q1D zinc [facility] sulfate 50 sulfate 50 e(s) sulfate 50 Medical mg zinc mg zinc mg zinc (220 mg) (220 mg) (220 mg) capsule capsule capsule Take 1 Take 1 Take 1 capsule capsule capsule every day every day every day by oral by oral by oral route. route. route. acetaminoph acetaminoph No acetaminop [facility] en 120 en 120 hen 120 [facility] mg-codeine mg-codeine mg-codeine 12 mg/5 mL 12 mg/5 mL 12 mg/5 mL oral oral oral solution solution solution GIVE 15ML GIVE 15ML GIVE 15ML VIA GTUBE VIA GTUBE VIA GTUBE EVERY 8 EVERY 8 EVERY 8 HOURS HOURS HOURS atorvastati atorvastati No 1 Q1D atorvastat [facility] [...] route. route. oral route. clonazepam clonazepam No clonazepam [facility] 0.5 mg 0.5 mg 0.5 mg [facility] tablet GIVE tablet GIVE tablet ONE TABLET ONE TABLET GIVE ONE VIA GTUBE VIA GTUBE TABLET VIA THREE TIMES THREE TIMES GTUBE A DAY A DAY THREE TIMES A DAY clonidine clonidine No 1 TID clonidine [facility] HCl 0.1 mg HCl 0.1 mg HCl 0.1 mg Medical tablet Take tablet Take tablet 1 tablet 3 1 tablet 3 Take 1 times a day times a day tablet 3 by oral by oral times a route as route as day by needed. needed. oral route as needed. ferrous ferrous No 5mL Q1D ferrous [facility] sulfate 300 sulfate 300 sulfate Medical mg (60 mg mg (60 mg 300 mg (60 iron)/5 mL iron)/5 mL mg iron)/5 oral liquid oral liquid mL oral Take 5 mL Take 5 mL liquid every day every day Take 5 mL by oral by oral every day route for route for by oral 30 days. 30 days. route for 30 days. gabapentin gabapentin No 1capsul TID gabapentin [facility] [...] every day route. route. by oral route. zinc zinc No 1capsul Q1D zinc [facility] sulfate 50 sulfate 50 e(s) sulfate 50 Medical mg zinc mg zinc mg zinc (220 mg) (220 mg) (220 mg) capsule capsule capsule Take 1 Take 1 Take 1 capsule capsule capsule every day every day every day by oral by oral by oral route. route. route. acetaminoph acetaminoph No acetaminop [facility] en 120 en 120 hen 120 [facility] mg-codeine mg-codeine mg-codeine 12 mg/5 mL 12 mg/5 mL 12 mg/5 mL oral oral oral solution solution solution GIVE 15ML GIVE 15ML GIVE 15ML VIA GTUBE VIA GTUBE VIA GTUBE EVERY 8 EVERY 8 EVERY 8 HOURS HOURS HOURS atorvastati atorvastati No 1 Q1D atorvastat [facility] [...] route. route. oral route. clonazepam clonazepam No clonazepam [facility] 0.5 mg 0.5 mg 0.5 mg [facility] tablet GIVE tablet GIVE tablet ONE TABLET ONE TABLET GIVE ONE VIA GTUBE VIA GTUBE TABLET VIA THREE TIMES THREE TIMES GTUBE A DAY A DAY THREE TIMES A DAY clonidine clonidine No 1 TID clonidine [facility] HCl 0.1 mg HCl 0.1 mg HCl 0.1 mg Medical tablet Take tablet Take tablet 1 tablet 3 1 tablet 3 Take 1 times a day times a day tablet 3 by oral by oral times a route as route as day by needed. needed. oral route as needed. ferrous ferrous No 5mL Q1D ferrous [facility] sulfate 300 sulfate 300 sulfate [facility] mg (60 mg mg (60 mg 300 mg (60 iron)/5 mL iron)/5 mL mg iron)/5 oral liquid oral liquid mL oral Take 5 mL Take 5 mL liquid every day every day Take 5 mL by oral by oral every day route for route for by oral 30 days. 30 days. route for 30 days. gabapentin gabapentin No 1capsul TID gabapentin [facility] [...] every day route. route. by oral route. zinc zinc No 1capsul Q1D zinc [facility] sulfate 50 sulfate 50 e(s) sulfate 50 Medical mg zinc mg zinc mg zinc (220 mg) (220 mg) (220 mg) capsule capsule capsule Take 1 Take 1 Take 1 capsule capsule capsule every day every day every day by oral by oral by oral route. route. route. acetylcyste acetylcyste No acetylcyst [facility] ine [...] route. ipratropium ipratropium No 1mL Q6H ipratropiu [facility] bromide bromide m bromide [facility] simone 0.02 % 0.02 % 0.02 % solution solution solution for for for inhalation inhalation inhalation Inhale 1 mL Inhale 1 mL Inhale 1 every 6 every 6 mL every 6 hours by hours by hours by inhalation inhalation inhalation route. route. route. Vital Signs Vital Name Observation Time Observation Value Comments Source BP Diastolic 2022-10-11 00:00:00 77 mm[Hg] [facility] Height 2022-10-11 00:00:00 62 [in_i] [facility] BMI (Body Mass Index) 2022-10-11 00:00:00 18.5 kg/m2 [facility] BP Systolic 2022-10-11 00:00:00 121 mm[Hg] [facility] Weight 2022-10-11 00:00:00 1616 [oz_av] [facility] BP Diastolic 2022-10-05 00:00:00 80 mm[Hg] [facility] Height 2022-10-05 00:00:00 62 [in_i] [facility] BMI (Body Mass Index) 2022-10-05 00:00:00 18.6 kg/m2 [facility] BP Systolic 2022-10-05 00:00:00 119 mm[Hg] [facility] Weight 2022-10-05 00:00:00 1623 [oz_av] [facility] BP Diastolic 2022-10-04 00:00:00 75 mm[Hg] [facility] Height 2022-10-04 00:00:00 62 [in_i] [facility] BMI (Body Mass Index) 2022-10-04 00:00:00 18.6 kg/m2 [facility] BP Systolic 2022-10-04 00:00:00 112 mm[Hg] [facility] Body Weight 2022-10-04 00:00:00 1623 [oz_av] [facility] BP Diastolic 2022-09-27 00:00:00 67 mm[Hg] [facility] Height 2022-09-27 00:00:00 62 [in_i] [facility] BMI (Body Mass Index) 2022-09-27 00:00:00 18.5 kg/m2 [facility] BP Systolic 2022-09-27 00:00:00 109 mm[Hg] [facility] Body Weight 2022-09-27 00:00:00 1622 [oz_av] [facility] BP Diastolic 2022-09-16 00:00:00 79 mm[Hg] [facility] Height 2022-09-16 00:00:00 62 [in_i] [facility] BMI (Body Mass Index) 2022-09-16 00:00:00 18.5 kg/m2 [facility] BP Systolic 2022-09-16 00:00:00 118 mm[Hg] [facility] Body Weight 2022-09-16 00:00:00 1622 [oz_av] [facility] BP Diastolic 2022-09-13 00:00:00 71 mm[Hg] [facility] Height 2022-09-13 00:00:00 62 [in_i] [facility] BMI (Body Mass Index) 2022-09-13 00:00:00 18.5 kg/m2 [facility] BP Systolic 2022-09-13 00:00:00 100 mm[Hg] [facility] Body Weight 2022-09-13 00:00:00 1622 [oz_av] [facility] BP Diastolic 2022-09-06 00:00:00 77 mm[Hg] [facility] Height 2022-09-06 00:00:00 62 [in_i] [facility] BMI (Body Mass Index) 2022-09-06 00:00:00 18.5 kg/m2 [facility] BP Systolic 2022-09-06 00:00:00 131 mm[Hg] [facility] Body Weight 2022-09-06 00:00:00 1622 [oz_av] [facility] BP Diastolic 2022-08-23 00:00:00 74 mm[Hg] [facility] Height 2022-08-23 00:00:00 62 [in_i] [facility] BMI (Body Mass Index) 2022-08-23 00:00:00 19.6 kg/m2 [facility] BP Systolic 2022-08-23 00:00:00 121 mm[Hg] [facility] Body Weight 2022-08-23 00:00:00 1712 [oz_av] [facility] BP Diastolic 2022-08-16 00:00:00 72 mm[Hg] [facility] Height 2022-08-16 00:00:00 62 [in_i] [facility] BMI (Body Mass Index) 2022-08-16 00:00:00 19.6 kg/m2 [facility] BP Systolic 2022-08-16 00:00:00 128 mm[Hg] [facility] Body Weight 2022-08-16 00:00:00 1712 [oz_av] [facility] BP Diastolic 2022-08-09 00:00:00 71 mm[Hg] [facility] Height 2022-08-09 00:00:00 62 [in_i] [facility] BMI (Body Mass Index) 2022-08-09 00:00:00 19.6 kg/m2 [facility] BP Systolic 2022-08-09 00:00:00 123 mm[Hg] [facility] Body Weight 2022-08-09 00:00:00 1712 [oz_av] [facility] BP Diastolic 2022-08-05 00:00:00 64 mm[Hg] [facility] Height 2022-08-05 00:00:00 62 [in_i] [facility] BMI (Body Mass Index) 2022-08-05 00:00:00 19.6 kg/m2 [facility] BP Systolic 2022-08-05 00:00:00 122 mm[Hg] [facility] Body Weight 2022-08-05 00:00:00 1712 [oz_av] [facility] Height 2022-07-15 00:00:00 62 [in_i] [facility] BP Diastolic 2022-07-05 00:00:00 64 mm[Hg] [facility] Height 2022-07-05 00:00:00 62 [in_i] [facility] BMI (Body Mass Index) 2022-07-05 00:00:00 19.8 kg/m2 [facility] BP Systolic 2022-07-05 00:00:00 108 mm[Hg] [facility] Weight 2022-07-05 00:00:00 1728 [oz_av] [facility] [...] Diastolic 2022-06-07 00:00:00 78 mm[Hg] [facility] Height 2022-06-07 00:00:00 62 [in_i] [facility] BMI (Body Mass Index) 2022-06-07 00:00:00 20.2 kg/m2 [facility] BP Systolic 2022-06-07 00:00:00 135 mm[Hg] [facility] Body Weight 2022-06-07 00:00:00 1768 [oz_av] [facility] BP Diastolic 2022-06-02 00:00:00 84 mm[Hg] [facility] Height 2022-06-02 00:00:00 62 [in_i] [facility] BMI (Body Mass Index) 2022-06-02 00:00:00 23 kg/m2 [facility] BP Systolic 2022-06-02 00:00:00 115 mm[Hg] [facility] Body Weight 2022-06-02 00:00:00 2016 [oz_av] [facility] BP Diastolic 2022-05-24 00:00:00 76 mm[Hg] [facility] Height 2022-05-24 00:00:00 62 [in_i] [facility] BMI (Body Mass Index) 2022-05-24 00:00:00 23 kg/m2 [facility] BP Systolic 2022-05-24 00:00:00 120 mm[Hg] [facility] Body Weight 2022-05-24 00:00:00 2016 [oz_av] [facility] BP Diastolic 2022-04-26 00:00:00 67 mm[Hg] [facility] Height 2022-04-26 00:00:00 62 [in_i] [facility] BMI (Body Mass Index) 2022-04-26 00:00:00 23.8 kg/m2 [facility] BP Systolic 2022-04-26 00:00:00 131 mm[Hg] [facility] Body Weight 2022-04-26 00:00:00 2080 [oz_av] [facility] Heart rate 2022-06-25 12:00:00 88 /min [facility] Systolic blood 2022-06-25 11:00:00 105 mm[Hg] [facility] Diastolic blood 2022-06-25 11:00:00 63 mm[Hg] [facility] Body temperature 2022-06-25 11:00:00 36.5 Pari [facility] Respiratory rate 2022-06-25 11:00:00 19 /min [facility] Oxygen saturation in 2022-06-25 11:00:00 98 /min [facility] Arterial blood by Medical Ce nter Pulse oximetry Body weight 2022-06-24 05:41:00 54.749 kg [facility] BMI 2022-06-24 05:41:00 21.38 kg/m2 [facility] Body height 2022-06-16 09:30:00 160 cm [facility] Procedures Procedure Date / Time Performing Clinician Source Performed POCT-GLUCOSE METER 2022-06-25 11:16:00 Opal [facility] POCT-GLUCOSE METER 2022-06-25 06:17:00 [facility] 2022-06-25 05:29:00 [facility] [place] CBC W/PLT COUNT & AUTO 2022-06-25 05:29:00 Morgan [facility]OL[facility] 2022-06-25 05:29:00 Morgan [facility]FREE T4 IF INDICATED 2022-06-25 05:29:00 [facility] W/PLT COUNT & AUTO 2022-06-25 05:29:00 [facility] POCT-GLUCOSE METER 2022-06-25 00:39:00 Opal [facility] POCT-GLUCOSE METER 2022-06-24 18:00:00 Opal [facility] BLOOD CULTURE 2022-06-24 15:43:00 Opal [facility] CBC W/PLT COUNT & AUTO 2022-06-24 15:41:00 [facility]/INR 2022-06-24 15:41:00 Opal [facility] CBC W/PLT COUNT & AUTO 2022-06-24 15:41:00 Opal [facility] XR CHEST 1 VIEW PORTABLE 2022-06-24 14:22:00 Opal [facility] BEDSIDE Center ECG 12-LEAD 2022-06-24 13:42:56 Unknown, H[facility]7 [facility] ECG 12-LEAD 2022-06-24 13:42:56 Unknown, [facility] ECG 12-LEAD 2022-06-24 13:42:56 Opal [facility] ECG 12-LEAD 2022-06-24 13:41:12 Unknown, H[facility]7 [facility] ECG 12-LEAD 2022-06-24 13:41:12 Unknown, 7 [facility] POCT-GLUCOSE METER 2022-06-24 11:13:00 Opal [facility] POCT-GLUCOSE METER 2022-06-24 06:34:00 [facility] 2022-06-24 03:37:00 [facility] CBC W/PLT COUNT & AUTO 2022-06-24 03:37:00 Morgan [facility] DIFFERENTIAL Dario [place] COMPREHENSIVE METABOLIC 2022-06-24 03:37:00 Bilcasi [facility]EL [facility] CBC W/PLT COUNT & AUTO 2022-06-24 03:37[facility] POCT-GLUCOSE METER 2022-06-24 00:27:00 Opal [facility] POCT-GLUCOSE METER 2022-06-23 17:44:00 [facility]OV[facility]RT-[facility] ([facility] & 2022-06-23 13:18:00 Shira Farmer [facility] LABS) [facility] POCT-GLUCOSE METER 2022-06-23 11:05:00 Opal [facility] POCT-GLUCOSE METER 2022-06-23 06:57:00 Opal [facility] POCT-GLUCOSE METER 2022-06-23 06:35:00 Opal [facility] PHOSPHORUS 2022-06-23 03:36:00 [facility] W/PLT COUNT & AUTO 2022-06-23 03:36:00 [facility] COMPREHENSIVE METABOLIC 2022-06-23 03:36:00 [facility] CBC W/PLT COUNT & AUTO 2022-06-23 03:36:[address] [facility] DIFFERENTIAL [facility] POCT-GLUCOSE METER 2022-06-22 23:34:00 Opal [facility] POCT-GLUCOSE METER 2022-06-22 17:55:00 Opal [facility] EEG 2-12 HR CONTINUOUS 2022-06-22 14:06:00 Opal [facility] MONITORING WITH VIDEO Center POCT-GLUCOSE METER 2022-06-22 11:43:00 Opal [facility] VANCOMYCIN LEVEL, TROUGH 2022-06-22 09:36:00 Melodie Mcguire [facility] POCT-GLUCOSE METER 2022-06-22 07:38:00 Opal [facility] EEG 12-26 HR CONTINUOUS 2022-06-22 06:38:00 Opal [facility] MONITORING WITH VIDEO Center POCT-GLUCOSE METER 2022-06-22 04:35:00 Opal [facility] PHOSPHORUS 2022-06-22 03:01:00 [facility] W/PLT COUNT & AUTO 2022-06-22 03:01:00 [facility] 2022-06-22 03:01:00 Bilcasi [facility] PANEL [facility] CBC W/PLT COUNT & AUTO 2022-06-22 03:01:00 [facility]Wood [facility] DIFFERENTIAL [facility] POCT-GLUCOSE METER 2022-06-22 00:24:00 Opal [facility] POCT-GLUCOSE METER 2022-06-21 17:59:00 Opal [facility] POCT-GLUCOSE METER 2022-06-21 10:57:00 Opal [facility] POCT-GLUCOSE METER 2022-06-21 06:42:00 Opal [facility] PHOSPHORUS 2022-06-21 04:04:00 Shira Farmer [facility] CBC W/PLT COUNT & AUTO 2022-06-21 04:04:00 Artemiocasi [facility] DIFFERENTIAL [facility] 2022-06-21 04:04:00 Artemiocasi [facility] PANEL [facility] CBC W/PLT COUNT & AUTO 2022-06-21 04:04:00 Artemiocasi [facility] DIFFERENTIAL [facility] POCT-GLUCOSE METER 2022-06-21 02:03:00 Opal [facility] CT BRAIN WITHOUT IV 2022-06-20 21:41:00 Lucy [facility] CONTRAST [place] HIGH SENSITIVITY 2022-06-20 20:18:00 Lucy, [facility] TROPONIN I [facility] 2022-06-20 20:14:00 Bruce-Ittzaid, [facility] PANEL [place] CBC W/PLT COUNT & AUTO 2022-06-20 20:14:00 Lucy [facility] Medical DIFFERENTIAL [place] LACTIC ACID, VENOUS 2022-06-20 20:14:00 Lucy [facility] MAGNESIUM 2022-06-20 20:14:00 Lucy [facility] PHOSPHORUS 2022-06-20 20:14:00 Lucy [facility] CBC W/PLT COUNT & AUTO 2022-06-20 20:[facility]-BLOOD GASES, VENOUS 2022-06-20 20:04:00 Opal [facility] POCT-SODIUM 2022-06-20 20:04:00 Opal [facility] POCT-POTASSIUM 2022-06-20 20:04:00 Opal [facility] POCT-HEMOGLOBIN 2022-06-20 20:04:00 Opal [facility] POCT-HEMATOCRIT 2022-06-20 20:04:00 Opal [facility] POCT-GLUCOSE 2022-06-20 20:04:00 Opal [facility] XR CHEST 1 VIEW PORTABLE 2022-06-20 19:46:00 Opal [facility] BEDSIDE [place] POCT-GLUCOSE METER 2022-06-20 19:22:00 Opal [facility] POCT-GLUCOSE METER 2022-06-20 17:49:00 Opal [facility] POCT-GLUCOSE METER 2022-06-20 10:54:00 Opal [facility] POCT-GLUCOSE METER 2022-06-20 05:34:00 Opal [facility] PHOSPHORUS 2022-06-20 03:29:00 Marleny [facility] POCT-GLUCOSE METER 2022-06-20 00:18:00 [facility] PO[facility]UCOSE METER 2022-06-19 18:23:00 Opal [facility] POCT-GLUCOSE METER 2022-06-19 12:01:00 [facility] PO[facility]UCOSE METER 2022-06-19 06:46[facility] 2022-06-19 05:19:00 Ciccarellhaider [facility] BASIC METABOLIC PANEL 2022-06-19 05:19:00 Ciccarello [facility] MAGNESIUM 2022-06-19 05:19:00 [facility]US 2022-06-19 05:19:00 [facility] POCT-GLUCOSE METER 2022-06-19 00:34:00 [facility]SE METER 2022-06-18 18:12:00 Opal [facility] VANCOMYCIN LEVEL, TROUGH 2022-06-18 18:02:00 CiccaremimiShira maloney [facility] POCT-GLUCOSE METER 2022-06-18 12:04:00 Opal [facility] POCT-GLUCOSE METER 2022-06-18 05:56:00 Aaron Moreau [facility] CBC (HEMOGRAM ONLY) 2022-06-18 04:58:00 [facility]OLIC PANEL 2022-06-18 04:58:00 [facility] MAGNESIUM 2022-06-18 04:58:00 [facility] PHOS[facility]ORUS 2022-06-18 04:58:00 [facility] POCT-GLUCOSE METER 2022-06-17 21:47:00 Aaron Moreau [facility] POCT-GLUCOSE METER 2022-06-17 19:12:00 Aaron Moreau [facility] BASIC METABOLIC PANEL 2022-06-17 16:44:00 [facility] HEMOGLOBIN AND 2022-06-17 16:44:00 [facility] HEMATOCRIT [facility] MAGNESIUM 2022-06-17 14:53:00 [facility] BASIC METABOLIC PANEL 2022-06-17 13:54:00 [facility] 2D ECHO W/ DOPPLER 2022-06-17 11:23:00 [facility] (CW/PW/COLOR) [facility] POCT-GLUCOSE METER 2022-06-17 11:12:00 Indu [facility] VENOUS DOPPLER LEGS 2022-06-17 10:00:00 [facility] POCT-GLUCOSE METER 2022-06-17 05:52:00 Indu [facility] CBC (HEMOGRAM ONLY) 2022-06-17 04:05:00 [facility] BASIC METABOLIC PANEL 2022-06-17 04:05:00 [facility] MAGNESIUM 2022-06-17 04:05:00 [facility] PHOSPHORUS 2022-06-17 04:05:00 [facility] XR CHEST 1 VIEW PORTABLE 2022-06-17 00:55:00 Shira Farmer [facility] / BEDSIDE [facility] POCT-GLUCOSE METER 2022-06-16 23:35:00 Indu [facility] POCT-GLUCOSE METER 2022-06-16 17:19:00 Belem Griggs [facility] CT BRAIN WITHOUT IV 2022-06-16 13:55:00 [facility] CONTRAST [facility] XR CHEST 1 VIEW PORTABLE 2022-06-16 13:05:00 Shira Farmer [facility] / BEDSIDE [facility] BLOOD CULTURE 2022-06-16 12:20:00 Marleny [facility] BLOOD CULTURE 2022-06-16 10:58:00 Marleny [facility] SPUTUM CULTURE + GRAM 2022-06-16 09:48:00 Marleny [facility] SARS-COV2/RT-PCR ([facility] & 2022-06-16 09:48:00 Shira Farmer [facility] REF LABS) [facility] CBC (HEMOGRAM ONLY) 2022-06-16 09:48:00 Marleny [facility] BASIC METABOLIC PANEL 2022-06-16 09:48:00 Marleny [facility] HEPATIC FUNCTION PANEL 2022-06-16 09:48:00 Marleny [facility] LACTIC ACID, VENOUS 2022-06-16 09:48:00 [facility] PROCALCITONIN 2022-06-16 09:48:00 [facility] URINALYSIS W/ REFLEX 2022-06-16 09:48:00 Shira Farmer [facility] URINE CULTURE [facility] BLOOD GAS, VENOUS 2022-06-16 09:48:00 Shira Farmer [facility] EKG-SCANNED 2022-06-16 00:00:00 ProviderNubia [facility] [id number] 2022-03-21 00:00:00 MITVI [facility] [id number] 2022-03-20 00:00:00 MAIAN01 [facility] [id number] 2022-02-17 00:00:00 LEESE.01 [facility] [id number] 2022-02-17 00:00:00 LEESE.01 [facility] [id number] 2022-02-17 00:00:00 LEESE.01 [facility] Tracheostomy 2022-02-17 00:00:00 [facility] [id number] 2022-02-09 00:00:00 LEESE.01 [facility] Gastrostomy [facility] Plan of Care Planned Activity Planned Date Details Comments Source Future Scheduled 2023-06-[address] [facility] 00:00[facility]00 [facility] (12+) [code = Tobacco Cessation Counseling and Screening (12+)] Future Scheduled 2023-06-[address] [facility] 00:00:00 [facility] (12+) [code = Tobacco Cessation Counseling and Screening (12+)] Future Scheduled 2022-09-[address] [facility] 00:00:00 (12+) [code = Medical Center DEPRESSION SCREENING (12+)] Future Scheduled 2022-09-[address] [facility] 00:00:00 (12+) [code = Medical Center DEPRESSION SCREENING (12+)] Future Scheduled 2022-05-26 INFLUENZA VACCINE (#1) C [...] [facility] 00:00:00 [code = 93669951] Medical Ce nter Future Scheduled 2021 Lipid panel (procedure) [facility] 00:00:00 [code = 66611404] Medical Ce nter Future Scheduled 2021 Lipid panel (procedure) [facility] 00:00:00 [code = 42342335] Medical Ce nter Future Scheduled 2021 Lipid panel (procedure) [facility] 00:00:00 [code = [id number]] Medical Ce nter Future Scheduled 2021-09-[address] [facility] 00:00:00 (12+) [code = Medical Center DEPRESSION SCREENING (12+)] Future Scheduled 2021-09-[address] [facility] 00:00:00 (12+) [code = Medical Center DEPRESSION SCREENING (12+)] Future Scheduled 1997 Screening for malignant [facility] 00:00:00 neoplasm of cervix Medical C enter (procedure) [code = 921989620] Future Scheduled 1997 Screening for malignant [facility] Test 00:00:00 neoplasm of cervix Medical C enter (procedure) [code = 090546274] Future Scheduled 1997 Screening for malignant [facility] Test 00:00:00 neoplasm of cervix Medical C enter (procedure) [code = 479140409] Future Scheduled 1997 Screening for malignant [facility] Test 00:00:00 neoplasm of cervix Medical C enter (procedure) [code = 377405532] Future Scheduled 1995-12-27 DTAP/TDAP/TD VACCINES [facility] [...] [facility] 00:00:00 [code = CT Colonography [facility] (combo)] Future Scheduled 1976 Screening for malignant [facility] 00:00:00 neoplasm of colon Medical Ce nter (procedure) [code = 739593619] Future Scheduled 1976 Screening for malignant [facility] Test 00:00:00 neoplasm of colon Medical Ce nter (procedure) [code = 043670391] Future Scheduled 1976 Screening for malignant [facility] Test 00:00:00 neoplasm of colon Medical Ce nter (procedure) [code = 357633817] Future Scheduled 1976 Screening for malignant [facility] Test 00:00:00 neoplasm of colon Medical Ce nter (procedure) [code = 255505055] Future Scheduled 1975 Sigmoidoscopy [facility]code [facility]] Medical Cent[facility] Future Scheduled 1976 CT Colonography (combo) [facility] 00:[facility] [code = CT [facility] ([facility])] Future Scheduled 1976 Screening for malignant [facility] 00:00:00 neoplasm of colon Medical Ce [facility]ter (procedure) [code = 583416836] Future Scheduled 1976 Screening for malignant [facility] 00:00:00 neoplasm of colon Medical Ce [facility]ter (procedure) [code = 071291824] Future Scheduled 1976 Screening for malignant [facility] 00:00:00 neoplasm of colon Medical Ce [facility]ter (procedure) [code = 302546433] Future Scheduled 1976 Screening for malignant [facility] 00:00:00 neoplasm of colon Medical Ce nter (procedure) [code = 049283871] Future Scheduled 1975 Sigmoidoscopy [facility]code = [facility]oscopy] Medical Cente r Future Scheduled 1976 CT Colonography (combo) [facility] 00:00:00 [code = CT [facility])] Future Scheduled 1976 Screening for malignant [facility] 00:00:00 neoplasm of colon [facility] Ce [facility] (procedure) [code = 840150345] Future Scheduled 1976 Screening for malignant [facility] 00:00:00 neoplasm of colon Medical Ce [facility]ter (procedure) [code = 023809475] Future Scheduled 1976 Screening for malignant [facility] 00:00:00 neoplasm of colon Medical Ce [facility]ter (procedure) [code = 601942970] Future Scheduled 1976 Screening for malignant [facility] 00:00:00 neoplasm of colon Medical Ce [facility] (procedure) [code = 465703359] Future Scheduled 1975 Sigmoidoscopy [facility]code = [facility]oscopy] Medical Cent[facility] r Future Scheduled 1976 CT Colonography (combo) [facility] 00:00:00 [code = CT Colonography [facility] (combo)] Future Scheduled 1976 Screening for malignant [facility] 00:00:00 neoplasm of colon Medical Ce nter (procedure) [code = 188136152] Future Scheduled 1976 Screening for malignant [facility] 00:00:00 neoplasm of colon Medical Ce nter (procedure) [code = 822806017] Future Scheduled 1976 Screening for malignant [facility] 00:00:00 neoplasm of colon Medical Ce nter (procedure) [code = 383722328] Future Scheduled 1976 Screening for malignant [facility] 00:00:00 neoplasm of colon Medical Ce nter (procedure) [code = 003213050] Future Scheduled 1975 Sigmoidoscopy [facility]code [facility]oscopy] Medical Cente r Encounters Start End Encounter Admission Attending Care Care Encounter Source Date/Time Date/Time Type Type Clinicians Facility Department ID 2022-11-14 2022-11-14 Outpatient [facility] [id number] [facility] 00:00:00 00:00:00 d_J [id number] Medica l 2022-10-22 2022-10-22 Outpatient [facility] 246 [id number] [facility] 00:00:00 00:00:00 d_J [id number] Medica l 2022-10-20 2022-10-20 Outpatient [facility] PRIV 246 [id number] [facility] 00:00:00 00:00:00 jose_Jaqui [id number] Medica l 2022-10-17 2022-10-17 Outpatient [facility]IV 246 [id number] [facility] 00:00:00 00:00:00 d_J [id number] Medica l 2022-10-17 2022-10-17 Outpatient [facility]IV 246 [id number] [facility] 00:00:00 00:00:00 d_J [id number] Medica l 2022-10-11 2022-10-11 [facility] [id number] [facility] 00:00:00 00:00:00 VALENTINO Duval: Health - Med ical [address] [address] , Ph. 2022-10-05 2022-10-05 Magda [facility] [id number] [facility] 00:00:00 00:00:00 VALENTINO Duval: Health - Med ical [address] [address] , Ph. 2022-10-04 2022-10-04 Keyshawn Alcantra [facility] [id number] [facility] 00:00:00 00:00:00 Asia [facility] - Med ical : [address] [address] , Ph. 2022-09-30 2022-09-30 Outpatient [facility] PRIV PRIV 246 [id number] [facility] 00:00:00 00:00:00 d_J [id number] Medica l 2022-09-30 2022-09-30 Outpatient [facility] PR[facility] PRIV 246 [id number] [facility] 00:00:00 00:00:00 d_J [id number] Medica l 2022-09-30 2022-09-30 Outpatient [facility] PR[facility] PRIV 246 [id number] [facility] 00:00:00 00:00:00 d_J [id number] Medica l 2022-09-30 2022-09-30 Outpatient [facility] PR[facility] PRIV 246 [id number] [facility] 00:00:00 00:00:00 d_J [id number] Medica l 2022-09-27 2022-09-27 Outpatient [facility] PRIV 246 [id number] [facility] 00:00:00 00:00:00 d_J [id number] Medica l 2022-09-27 2022-09-27 Outpatient [facility] PRIV 246 [id number] [facility] 00:00:00 00:00:00 d_J [id number] Medica l 2022-09-27 [facility]22[facility]09-[facility] [id number] [facility] 00:00:00 00:00:00 VALENTINO Duval: Health - Med ical [address] [address] , Ph. 2022-09-17 2022-09-17 Outpatient [facility] PR[facility] PRIV 246 [id number] [facility] 00:00:00 00:00:00 d_Jaqui [id number] Medica l 2022-09-16 2022-09-16 [facility] [id number] [facility] 00:00:00 00:00:00 VALENTINO Duval: Health - Med ical [address] [address] , Ph. 2022-09-13 2022-09-13 [facility] [id number] [facility] 00:00:00 00:00:00 VALENTINO Duval: Health - Med ical [address] [address] , Ph. 2022-09-06 2022-09-06 Outpatient [facility] PRIV PRIV 246 [id number] [facility] 00:00:00 00:00:00 d_J [id number] Medica l 2022-09-06 2022-09-06 Outpatient [facility] PR[facility] PRIV 246 [id number] [facility] 00:00:00 00:00:00 d_J [id number] Medica l 2022-09-06 2022-09-06 Outpatient [facility] PR[facility] PRIV 246 [id number] [facility] 00:00:00 00:00:00 d_J [id number] Medica l 2022-09-06 2022-09-06 Magda [facility] [id number] [facility] 00:00:00 00:00:00 VALENTINO Duval: Health - Med ical [address] [address] , Ph. 2022-09-02 2022-09-02 Outpatient [facility] PR[facility] PRIV 246 [id number] [facility] 00:00:00 00:00:00 d_J [id number] Medica l 2022-09-02 2022-09-02 Outpatient [facility] PR[facility] PRIV 246 [id number] [facility] 00:00:00 00:00:00 d_J [id number] Medica l 2022-08-23 2022-08-23 Magda [facility] [id number] [facility] 00:00:00 00:00:00 VALENTINO Duval: Health - Med ical [address] [address] , Ph. 2022-08-22 2022-08-22 Outpatient [facility] PRIV PRIV 246 [id number] [facility] 00:00:00 00:00:00 d_J [id number] Medica l 2022-08-22 2022-08-22 Outpatient [facility] PRIV PRIV 246 [id number] [facility] 00:00:00 00:00:00 d_J [id number] Medica l 2022-08-16 2022-08-16 Outpatient [facility] PRIV PRIV 246 [id number] [facility] 00:00:00 00:00:00 d_J [id number] Medica l 2022-08-16 2022-08-16 [facility] [id number] [facility] 00:00:00 00:00:00 VALENTINO Duval: Health - Med ical [address] [address] , Ph. 2022-08-13 2022-08-13 Outpatient [facility] REF [id number] [facility] 19:23:00 19:23:[address] [facility] 2022-08-09 2022-08-09 Magda [facility] 115 [facility] 00:00:00 00:00:00 VALENTINO Duval: Health - Med ical [address] [address] , Ph. 2022-08-05 2022-08-05 Mag[facility] 111 [facility] 00:00:00 00:00:00 VALENTINO Duval: Health - Med ical [address] [address] , Ph. 2022-07-31 2022-07-31 Outpatient [facility] PRIV PRIV 246 [id number] [facility] 00:00:00 00:00:00 d_J [id number] Medica l 2022-07-15 2022-07-15 Outpatient [facility] PRIV 246 [id number] [facility] 00:00:00 00:00:00 d_J [id number] Medica l 2022-07-15 2022-07-15 [facility] 021 [facility] 00:00:00 00:00:00 VALENTINO Duval: Health - Med ical [address] [address] , Ph. 2022-07-05 2022-07-05 Magda [facility] [id number] [facility] 00:00:00 00:00:00 VALENTINO Duval: Health - Med ical [address] [address] , Ph. 2022-06-16 2022-06-25 [facility] Maynor MonzonRy [facility] [id number] [facility] 15:09:00 Encounter Belem Griggs [facility]22-[facility]-16 2022-06-25 Inpatient ER [facility] [id number] [facility] 08:21:00 15:09:00 [facility] 2022-06-16 2022-06-25 Hospital [facility] Maynor MonzonRy [facility] [id number] [facility] 08:21:00 15:09:00 Encounter Belem Griggs Fang-Ying [facility] 2022-06-24 2022-06-24 Outpatient [facility] [id number] [address] [place] [address] 00:00:00 23:59:00 Jason 2022-06-24 2022-06-[address] [facility] [id number] 00:00:00 00:00:00 Only [facility] 2022-06-24 2022-06-[address] [facility] [id number] 00:00:00 00:00:00 [facility] 2022-06-16 2022-06-16 Outpatient TATIANNA GRIGGS [id number] [place]na 00:00:00 00:00:00 BELEM grant 2022-06-16 2022-06-16 Outpatient [facility] PRIV PRIV [id number] [facility] 00:00:00 00:00:00 d_Jaqui [id number] Medica l 2022-06-09 2022-06-09 Outpatient [facility] PRIV PRIV [id number] [facility] 00:00:00 00:00:00 jose_Jaqui [id number] Medica l 2022-06-07 2022-06-07 Outpatient [facility] PRIV PRIV 246 [id number] [facility] 00:00:00 00:00:00 jose_Jaqui [id number] Medica l 2022-06-07 2022-06-07 [facility] [id number] [facility] 00:00:00 00:00:00 VALENTINO Duval: Health - Med ical [address] [address] , Ph. 2022-06-02 2022-06-02 Outpatient Asia, [facility] [id number] 00:00:00 00:00:00 Keyshawn Alcantar [id number] 2022-06-02 2022-06-02 Keyshawn Alcantar [facility] [id number] [facility] 00:00:00 00:00:00 Asia [facility] - Med ical MD: [address] [address] , Ph. 2022-05-24 2022-05-24 Outpatient Mukund [facility] [id number] 00:00:00 00:00:00 Magda [id number] 2022-05-24 2022-05-24 [facility] [id number] [facility] 00:00:00 00:00:00 VALENTINO Duval: Health - Med ical [address] [address] , Ph. 2022-05-06 2022-05-06 Outpatient [facility]Tod PRIV PRIV 246 [id number] [facility] 00:00:00 00:00:00 d_J [id number] Medica l 2022-04-26 2022-04-26 Outpatient [facility] PRIV PRIV 246 [id number] [facility] 00:00:00 00:00:00 d_J [id number] Medica l 2022-04-26 2022-04-26 [facility] [id number] [facility] 00:00:00 00:00:00 VALENTINO Duval: Health - Med ical [address] [place] [address] , Ph. 2022-04-26 2022-04-26 Outpatient Mukund, PRIV PRIV [id number] 00:00:00 00:00:00 Magda [id number] 2022-04-22 2022-04-22 Outpatient [facility]_Tod PRIV PRIV 246 [id number] [facility] 00:00:00 00:00:00 d_J [id number] Medica l 2022-02-09 2022-04-20 Inpatient EM Lorna Douglass [facility] CARDIAC [id number] [facility] 05:41:00 17:44:00 57 [facility] are [facility] 2022-02-09 2022-04-20 Inpatient Lorna Pina CARDIAC [id number] [facility] 05:41:00 17:44:00 [id number] [facility] Results Test Description Test Time Test Comments Results Result Comments Source CBC W/AUTO DIFF 2022-11-04 14:13:00 Test Item Value Reference Range Interpretation Comme nts WHITE BLOOD CELL (test code = WBC) 11.3 x10 3/uL 3.2-11.5 N RED BLOOD CELL (test code = RBC) 4.09 x10(6)/m 3.70-5.10 N HEMOGLOBIN (test code = HGB) 9.8 g/dL 12.0-15.0 L HEMATOCRIT (test code = HCT) 32.9 % 35.7-44.8 L MEAN CELL VOLUME (test code = MCV) 80 fL 80-100 N MEAN CELL HGB (test code = MCH) 24.0 pg 26.2-33.8 L MEAN CELL HGB CONCENTRATION (test code = MCHC) 29.8 g/dL 30.0-34 .0 L RED CELL DISTRIBUTION WIDTH (test code = RDW) 17.4 % 11.3-14. 5 H PLATELET COUNT (test code = PLT) 349 x10 3/uL 130-408 N MEAN PLATELET VOLUME (test code = MPV) 11.1 fL 8.6-12.6 N NEUTROPHIL % (test code = NT%) 77.9 % 40.0-70.0 H LYMPHOCYTE % (test code = LY%) 13.8 % 20-40 L MONOCYTE % (test code = MO%) 5.7 % 1-10 N EOSINOPHIL % (test code = EO%) 2.0 % 0.0-5.0 N BASOPHIL % (test code = BA%) 0.2 % 0.0-1.0 N NUCLEATED RBC % (test code = NRBC%) 0.0 % 0.0-0.9 N NEUTROPHIL # (test code = NT#) 8.8 x10 3/uL 1.6-7.2 H LYMPHOCYTE # (test code = LY#) 1.56 x10 3/uL 1.1-2.7 N MONOCYTE # (test code = MO#) 0.6 x10 3/uL 0.3-0.8 N EOSINOPHIL # (test code = EO#) 0.2 x10 3/uL 0.0-0.5 N IMMATURE GRANULOCYTE % (test code = IG%) 0.4 % 0.0-2.0 N BASOPHIL # (test code = BA#) 0.0 x10 3/uL 0.0-0.1 N COMPREHENSIVE METABOLIC [id number] 12:56:00 Test Item Value Reference Range Interpretation Comments SODIUM (test code 137 mmol/L 135-145 N = NA) POTASSIUM (test 4.1 mmol/L 3.6-5.0 N code = K) CHLORIDE (test 99 mmol/L 101-111 L code = CL) CARBON DIOXIDE 30 mmol/L 21-31 N (test code = CO2) GLUCOSE (test code 126 mg/dl 70-100 H = GLU) BLOOD UREA 21 mg/dl 6-20 H NITROGEN (test code = BUN) GLOMERULAR >=60 max >60 The Glomerular FILTRATION RATE estimate Filtration R ate is a (test code = GFR) calculated parameterbased on serum Creatinin e, patient age and sex. GFR valuesless than 60 mL/min/1.73 square meters are chung cative ofChronic Kidne y Disease. Values less than 15 mL/min/1.73squa re meters indicate Kidney failure. The calculation for GFR is based on the CK D-EPI (2020) calculat ion. This formulais race indifferent and is the recommended formula for GFR by the National Kidney Foundation for Adults.The GFR will not calculate i f the sex is unknown or if thepatient's ag e is <18 years. CREATININE (test 0.42 mg/dL 0.44-1.03 L code = CREAT) TOTAL PROTEIN 7.1 g/dL 6.7-8.2 N (test code = PROT) ALBUMIN (test code 2.6 g/dL 3.2-5.5 L = ALB) CALCIUM (test code 8.9 mg/dL 8.5-10.5 N = CA) BILIRUBIN TOTAL 0.20 mg/dL 0.2-1.3 N (test code = BILT) SGOT/AST (test 23 U/L 10-42 N code = AST) SGPT/ALT (test 17 U/L 10-60 N code = ALT) ALKALINE 109 U/L 42-121 N PHOSPHATASE (test code = ALKP) BLOOD [id number] 02:58:53 Test Item Value Reference Range Interpretation Comments CULTURE (BEAKER) (test No growth in 5 days code = 1095) The specimen volume collected for this blood culture was below the optimum (10 mL per bottle or 20 mL total). Use of lower volumes may adversely affect recovery and/or detection times of some organisms.BLOOD [id number] 02:58:53 Test Item Value Reference Range Interpretation Comments CULTURE (BEAKER) (test No growth in 5 days code = 1095) The specimen volume collected for this blood culture was below the optimum (10 mL per bottle or 20 mL total). Use of lower volumes may adversely affect recovery and/or detection times of some organisms.POC-Glucose [id number] 11:27:31 Test Item Value Reference Range Interpretation Comments POC-Glucose Meter (test 138 mg/dL 70-110 H : TE STED AT [facility] code = 1538) [address] [place] [address], 770 30: Voice Network Administrator/Techni amaya ID = [id number] for Martha Hillman Lab Interpretation (test Abnormal code = 79514-8) [facility] [id number] 11:27:31 Test Item Value Reference Range Interpretation Comments POC-Glucose Meter (test 138 mg/dL 70-110 H : TE STED AT [facility] code = 1538) [address] [place] [address], 770 30: Voice Network Administrator/Techni amaya ID = [id number] for Hillman, Martha Lab Interpretation (test Abnormal code = 67833-3) [facility] [id number] 11:27:31 Test Item Value Reference Range Interpretation Comments POC-Glucose Meter (test 138 mg/dL 70-110 H : TE STED AT [facility] code = 1538) [address] [facility], 770 30: Voice Network Administrator/Techni amaya ID = [id number] for Hillman, Martha Lab Interpretation (test Abnormal code = 11285-4) [facility]-Glucose [id number] 11:27:31 Test Item Value Reference Range Interpretation Comments POC-Glucose Meter (test 138 mg/dL 70-110 H : TE STED AT [facility] code = 1538) [address] [facility], 770 30: Voice Network Administrator/Techni amaya ID = [id number] for Hillman, Mellen Lab Interpretation (test Abnormal code = 51611-5) [facility]-GLUCOSE [id number] 11:27:31 Test Item Value Reference Range Interpretation Comments POC-GLUCOSE METER 138 mg/dL 70-110 H : TESTED [facility] T [facility] 67[address] [facility] (test code = [facility] Cervantes [facility], 1538) 14562: Voice Network Administrator/Techni amaya ID = [id number] for Hillman, Martha TSH/FREE T4 IF [id number] 06:57:34 Test Item Value Reference Range Interpretation Comments THYROID STIMULATING HORMONE 0.620 uIU/mL 0.350-4.940 (BEAKER) (test code = 772) Voice Network Administrator ID - AMADO [id number] 06:47:51 Test Item Value Reference Range Interpretation Comments PHOSPHORUS (BEAKER) (test code = 5.0 mg/dL 2.3-4.7 H 604) Voice Network Administrator ID - AMADO MCOMPREHENSIVE METABOLIC [id number] 06:47:50 Test Item Value Reference Range Interpretation [...] not appl icable for dialysis patien ts Voice Network Administrator ID - AMADO MPOCT-GLUCOSE [id number] 06:29:35 Test Item Value Reference Range Interpretation Comments POC-GLUCOSE METER 142 mg/dL 70-110 H : TESTED A T [facility] 6720 (BEAKER) (test code = DELFINAEVIE Cervantes [facility], 1538) 613[address]: Voice Network Administrator/Techni amaya ID = [id number] for Shira Zamora CBC W/PLT COUNT & AUTO [id number] 06:13:59 Test Item Value Reference Range Interpretation [...] PERCENT (BEAKER) (test code = 2801) POCT-GLUCOSE [id number] 00:50:48 Test Item Value Reference Range Interpretation Comments POC-GLUCOSE METER 125 mg/dL 70-110 H : TESTED A T [facility] 6720 (BEAKER) (test code = [facility] Billy [facility], 1538) 52487: Voice Network Administrator/Techni amaya ID = [id number] for Shira Zamora POCT-GLUCOSE [id number] 18:12:31 Test Item Value Reference Range Interpretation Comments POC-GLUCOSE METER 132 mg/dL 70-110 H : TESTED A T [facility] 6720 (BEAKER) (test code = [facility] Billy [facility], 1538) 66262: Voice Network Administrator/Techni amaya ID = [id number] for Martha Hillman PROTHROMBIN TIME/[id number] 17:11:45 Test Item Value Reference Range Interpretation Comments PROTIME (BEAKER) 13.0 seconds 11.9-14.2 (test code = 759) INR (BEAKER) (test 1.04 See_Comment [Automat ed message] code = 370) The system [employer] generated this result transmitted ref erence range: <=5.90. The reference range was not used to int erpret this result as normal/abnormal . RECOMMENDED COUMADIN/WARFARIN INR THERAPY RANGESSTANDARD DOSE: 2.0 - 3.0 Includes: PROPHYLAXIS for venous thrombosis, systemic embolization; TREATMENT for venous thrombosis and/or pulmonary embolus.HIGH RISK: Target INR is 2.5-3.5 for patients with mechanical heart valves.CBC W/PLT COUNT & AUTO [id number] 16:51:46 Test Item Value Reference Range Interpretation [...] = 2801) RAD, CHEST, 1 VIEW, NON [id number] 14:54:00Reason for exam:->SOBShould this be performed at the bedside?->Yes [facility] : 1975 Sex: [...] exam. No focal consolidation. Signed: Benjamin Hercules Verified Date/Time: 06/24/2022 14:54:31 Reading Location: [address] Reading Room -GLUCOSE [id number] 11:25:55 Test Item Value Reference Range Interpretation Comments POC-GLUCOSE METER 141 mg/dL 70-110 H : TESTED A T [facility] 6720 (BEAKER) (test code = [facility] [employer] [facility], 1538) 91366: Voice Network Administrator/Techni amaya ID = [id number] for Martha Hillman POCT-GLUCOSE [id number] 06:47:49 Test Item Value Reference Range Interpretation Comments POC-GLUCOSE METER 119 mg/dL 70-110 H : TESTED A T [facility] 6720 (BEAKER) (test code = [facility], 1538) 93241: Voice Network Administrator/Techni amaya ID = [id number] for TIM ABDULLAHI COMPREHENSIVE METABOLIC [id number] 04:52:02 Test Item Value Reference Range Interpretation [...] not appl icable for dialysis patien ts Voice Network Administrator ID - MEE [id number] 04:52:02 Test Item Value Reference Range Interpretation Comments PHOSPHORUS (BEAKER) (test code = 3.9 mg/dL 2.3-4.7 604) Voice Network Administrator ID - MEE LCBC W/PLT COUNT & AUTO [id number] 04:10:24 Test Item Value Reference Range Interpretation [...] % 0-1 PERCENT (BEAKER) (test code = 0571) SARS-CoV2/RT-PCR (Asymptomatic ONLY)2022-06-24 04:05:11 Test Item Value Reference Interpretation Comments Range SARS-COV2/RT-PCR Negative Negative The SARS-Co V-2 (test code = target nucleic 64791-9) acids are not detected in thi s [...] revoked sooner. Fact Sheet for Healthcare Providers: https://www.InPlace/Documents/Xp ert%20Xpress%20SAR S%20CoV-2/Fact%20S heets/302-3802%20S ARS-COV-2%20HEALTH CARE%20PROVIDERS%2 0FACT%20SHEET.pdf Fact Sheet for Healthcare Patients: https://www.InPlace/Documents/Xp ert%20Xpress%20SAR S%20CoV-2/Fact%20S heets/302-3801%20S ARS-COV-2%20PATIEN T%20FACT%20SHEET.p df Lab Interpretation Normal (test code = 48827-8) [facility]2022-06-24 04:05:11 Test Item Value Reference Interpretation Comments Range SARS-COV2/RT-PCR Negative Negative The SARS-Co V-2 (test code = target nucleic 14587-9) acids are not detected in thi s [...] rapid, real-liliane e RT-PCR test intended for e qualitative detection of nucleic acid fr [...] revoked sooner. Fact Sheet for Healthcare Providers: https://www.InPlace/Documents/Xp ert%20Xpress%20SAR S%20CoV-2/Fact%20S heets/302-3802%20S ARS-COV-2%20HEALTH CARE%20PROVIDERS%2 0FACT%20SHEET.pdf Fact Sheet for Healthcare Patients: https://www.InPlace/Documents/Xp ert%20Xpress%20SAR S%20CoV-2/Fact%20S heets/302-3801%20S ARS-COV-2%20PATIEN T%20FACT%20SHEET.p df Lab Interpretation Normal (test code = 39035-1) [facility]2022-06-24 04:05:11 Test Item Value Reference Interpretation Comments Range SARS-COV2/RT-PCR Negative Negative The SARS-Co V-2 (test code = target nucleic 35132-9) acids are not detected in thi s [...] rapid, real-liliane e RT-PCR test intended for e qualitative detection of nucleic acid fr [...] revoked sooner. Fact Sheet for Healthcare Providers: https://www.InPlace/Documents/Xp ert%20Xpress%20SAR S%20CoV-2/Fact%20S heets/302-3802%20S ARS-COV-2%20HEALTH CARE%20PROVIDERS%2 0FACT%20SHEET.pdf Fact Sheet for Healthcare Patients: https://www.InPlace/Documents/Xp ert%20Xpress%20SAR S%20CoV-2/Fact%20S heets/302-3801%20S ARS-COV-2%20PATIEN T%20FACT%20SHEET.p df Lab Interpretation Normal (test code = 32289-6) [facility] 04:05:11 Test Item Value Reference Interpretation Comments Range SARS-COV2/RT-PCR Negative Negative The SARS-Co V-2 (test code = target nucleic 59049-5) acids are not detected in thi s [...] revoked sooner. Fact Sheet for Healthcare Providers: https://www.InPlace/Documents/Xp ert%20Xpress%20SAR S%20CoV-2/Fact%20S heets/302-3802%20S ARS-COV-2%20HEALTH CARE%20PROVIDERS%2 0FACT%20SHEET.pdf Fact Sheet for Healthcare Patients: https://www.InPlace/Documents/Xp ert%20Xpress%20SAR S%20CoV-2/Fact%20S heets/302-3801%20S ARS-COV-2%20PATIEN T%20FACT%20SHEET.p df Lab Interpretation Normal (test code = 64164-9) [facility]2022-06-24 04:05:11 Test Item Value Reference Range Interpretation Comments SARS-COV2/RT-PCR Negative Negative The SARS-Co V-2 target (test code = nucleic acids a re not 0950238) detected in thi s specimen. Negative result [...] revoked sooner. Fact Sheet for Healthcare Providers: https://www.uniRow m/Documents/Xpert%20Xpress%20SARS%20CoV-2/Fact%20Sheets/302-3802%48GFRS-NDF-6%20 HEALTHCARE%20PROVIDERS%20FACT%20SHEET.pdf Fact Sheet for Healthcare Patients: https://www.RUSBASE/Documents/Xpert%20Xp ress%20SARS%20CoV-2/Fact%20Sheets/302-3801%09SPKZ-BMZ-7%20PATIENT%20FACT%20SHEET .pdfPOCT-GLUCOSE [id number] 00:46:12 Test Item Value Reference Range Interpretation Comments POC-GLUCOSE METER 122 mg/dL 70-110 H : TESTED A T [facility] ([facility]) (test code = [employer] [facility], 1538) [id number]: Voice Network Administrator/Techni amaya ID = [id number] for TIM ABDULLAHI POCT-GLUCOSE [id number] 17:56:17 Test Item Value Reference Range Interpretation Comments POC-GLUCOSE METER 121 mg/dL 70-110 H : TESTED A T [facility] ([facility]) (test code = [employer] [facility], 1538) 64806: Voice Network Administrator/Techni amaya ID = [id number] for Martha Hillman POCT-GLUCOSE [id number] 11:17:17 Test Item Value Reference Range Interpretation Comments POC-GLUCOSE METER 116 mg/dL 70-110 H : TESTED A T [facility] 6720 (BEAKER) (test code = [facility] [place], 1538) 84485: Voice Network Administrator/Techni amaya ID = [id number] for Martha Hillman COMPREHENSIVE METABOLIC [id number] 09:13:54 Test Item Value Reference Range Interpretation [...] not appl icable for dialysis patien ts Voice Network Administrator ID - AMADO [id number] 09:13:54 Test Item Value Reference Range Interpretation Comments PHOSPHORUS (BEAKER) (test code = 3.1 mg/dL 2.3-4.7 604) Voice Network Administrator ID - AMADO MPOCT-GLUCOSE [id number] 07:11:48 Test Item Value Reference Range Interpretation Comments POC-GLUCOSE METER 100 mg/dL 70-110 : TESTED A T [facility] 6720 (BEAKER) (test code = [facility], 1538) 81716: Voice Network Administrator/Techni amaya ID = [id number] for TIM ABDULLAHI POCT-GLUCOSE [id number] 06:46:51 Test Item Value Reference Range Interpretation Comments POC-GLUCOSE METER 111 mg/dL 70-110 H : TESTED A T [facility] 6720 (BEAKER) (test code = [facility] [employer] [facility], 1538) 43020: Voice Network Administrator/Techni amaya ID = [id number] for Ng Ramona lutz CBC W/PLT COUNT & AUTO [id number] 04:22:31 Test Item Value Reference Range Interpretation [...] PERCENT (BEAKER) (test code = 2801) POCT-GLUCOSE [id number] 23:45:27 Test Item Value Reference Range Interpretation Comments POC-GLUCOSE METER 98 mg/dL 70-110 : TESTED A T [facility] 6720 (BEAKER) (test code = [facility], 1538) 54237: Voice Network Administrator/Techni amaya ID = [id number] for Mushtaq enInesRamona POCT-GLUCOSE [id number] 18:07:58 Test Item Value Reference Range Interpretation Comments POC-GLUCOSE METER 114 mg/dL 70-110 H : TESTED A T [facility] 6720 (BEAKER) (test code = [facility], 1538) 71646: Voice Network Administrator/Techni amaya ID = [id number] for Wi lson, Balaji POCT-GLUCOSE [id number] 11:54:44 Test Item Value Reference Range Interpretation Comments POC-GLUCOSE METER 135 mg/dL 70-110 H : TESTED A T [facility] 6720 (BEAKER) (test code = [facility] Billy [facility], 1538) 48355: Voice Network Administrator/Techni amaay ID = [id number] for DARRELL ARGUETA VANCOMYCIN LEVEL, [id number] 10:09:47 Test Item Value Reference Range Interpretation Comments VANCOMYCIN TROUGH (BEAKER) (test 21.9 ug/mL 10.0-20.0 H code = 522) Voice Network Administrator ID Norman SANTOS WPOCT-GLUCOSE [id number] 07:50:39 Test Item Value Reference Range Interpretation Comments POC-GLUCOSE METER 115 mg/dL 70-110 H : TESTED A T [facility] 6720 (BEAKER) (test code = [facility], 1538) 27554: Voice Network Administrator/Techni amaya ID = [id number] for DARRELL ARGUETA [id number] 04:52:14 Test Item Value Reference Range Interpretation Comments PHOSPHORUS (BEAKER) (test code = 2.7 mg/dL 2.3-4.7 604) Voice Network Administrator ID Norman SANTOS WCOMPREHENSIVE METABOLIC [id number] 04:52:13 Test Item Value Reference Range Interpretation [...] not appl icable for dialysis patien ts Voice Network Administrator ID - TOM WPOCT-GLUCOSE [id number] 04:48:19 Test Item Value Reference Range Interpretation Comments POC-GLUCOSE METER 121 mg/dL 70-110 H : TESTED A T [facility] 6720 (BEAKER) (test code = [facility], 1538) 09907: Voice Network Administrator/Techni amaya ID = [id number] for Ilana Blanco CBC W/PLT COUNT & AUTO [id number] 04:04:07 Test Item Value Reference Range Interpretation [...] PERCENT (BEAKER) (test code = 2801) POCT-GLUCOSE [id number] 00:36:13 Test Item Value Reference Range Interpretation Comments POC-GLUCOSE METER 126 mg/dL 70-110 H : TESTED A T [facility] 6720 ([facility]) (test code = [facility], 1538) 16233: Voice Network Administrator/Techni amaya ID = [id number] for Ilana Blanco POCT-GLUCOSE [id number] 18:10:20 Test Item Value Reference Range Interpretation Comments POC-GLUCOSE METER 94 mg/dL 70-110 : TESTED A T [facility] 6720 ([facility]) (test code = [facility], 1538) 62304: Voice Network Administrator/Techni amaya ID = [id number] for Corie Donovan COMPREHENSIVE METABOLIC [id number] 16:49:26 Test Item Value Reference Range Interpretation [...] not appl icable for dialysis patien ts Voice Network Administrator ID - [id number] 16:49:26 Test Item Value Reference Range Interpretation Comments PHOSPHORUS (BEAKER) (test code = 2.9 mg/dL 2.3-4.7 604) Voice Network Administrator ID - ADMINBLOOD [id number] 14:00:56 Test Item Value Reference Range Interpretation Comments CULTURE (BEAKER) (test No growth in 5 days code = 1095) The specimen volume collected for this blood culture was below the optimum (10 mL per bottle or 20 mL total). Use of lower volumes may adversely affect recovery and/or detection times of some organisms.BLOOD [id number] 13:00:49 Test Item Value Reference Range Interpretation Comments CULTURE (BEAKER) (test No growth in 5 days code = 1095) POCT-GLUCOSE [id number] 11:08:44 Test Item Value Reference Range Interpretation Comments POC-GLUCOSE METER 130 mg/dL 70-110 H : TESTED A T [facility] 6720 (BEAKER) (test code = [facility], 1538) 72397: Voice Network Administrator/Techni amaya ID = [id number] for Corie Munoz POCT-GLUCOSE [id number] 07:00:22 Test Item Value Reference Range Interpretation Comments POC-GLUCOSE METER 134 mg/dL 70-110 H : TESTED A T [facility] 6720 (BEAKER) (test code = [facility], 1538) 32704: Voice Network Administrator/Techni amaya ID = [id number] for Leighton Rodriguez CBC W/PLT COUNT & AUTO [id number] 05:42:30 Test Item Value Reference Range Interpretation [...] PERCENT (BEAKER) (test code = 2801) POCT-GLUCOSE [id number] 02:15:13 Test Item Value Reference Range Interpretation Comments POC-GLUCOSE METER 98 mg/dL 70-110 : TESTED A T [facility] 6720 (BEAKER) (test code = [facility], 1538) 61221: Voice Network Administrator/Techni amaya ID = [id number] for Ilana Rodgers do POCT-GLUCOSE [id number] 00:10:22 Test Item Value Reference Range Interpretation Comments POC-GLUCOSE METER 83 mg/dL 70-110 : TESTED A T [facility] 6720 (BEAKER) (test code = [facility], 1538) 58231: Voice Network Administrator/Techni amaya ID = [id number] for Pulholger doHeladioar CT, BRAIN, WITHOUT [id number] 22:00:00Reason for Exam (Free Text) - Addiitonal information for Radiologist->new rigidity [facility] : 1975 Sex: [...] seen within the head. Signed: Fidel Anne MDReport Verified Date/Time: 06/20/2022 22:00:15 RAD, CHEST, 1 VIEW, NON [id number] 21:29:00Reason for exam:->resp distress [facility] : 1975 Sex: FFINAL [...] Nichols Verified Date/Time: 06/20/2022 21:29:34 Reading Location: [address] Transitional Reading Room HIGH SENSITIVITY TROPONIN [id number] 21:08:36 Test Item Value Reference Range Interpretation Comments HIGH SENSITIVITY < pg/ml See_Comment [Automated message] TROPONIN I (test code = The system which 4255236) generated this result transmitted ref erence range: <=17. Th e reference range was not used to interpr et this result as normal/abnormal . Voice Network Administrator ID - BSThe HEALTH SAFETY INSTRUCTOR STAT High Sensitivity Troponin-I results should be used in conjunctionwith other diagnostic information such as ECG, clinical observations and information, and patient symptoms to aid in the diagnosis of [place].COMPREHENSIVE METABOLIC [id number] 21:07:21 Test Item Value Reference Range Interpretation [...] not appl icable for dialysis patien ts Voice Network Administrator ID - [id number] 21:04:56 Test Item Value Reference Range Interpretation Comments PHOSPHORUS (BEAKER) (test code = 3.3 mg/dL 2.3-4.7 604) Voice Network Administrator ID - [id number] 21:04:55 Test Item Value Reference Range Interpretation Comments MAGNESIUM (BEAKER) (test code = 1.7 mg/dL 1.6-2.6 627) Voice Network Administrator ID - BSCBC W/PLT COUNT & AUTO [id number] 20:50:12 Test Item Value Reference Range Interpretation [...] (BEAKER) (test code = 2801) LACTIC ACID, [id number] 20:43:09 Test Item Value Reference Range Interpretation Comments LACTATE BLOOD VENOUS (2) (BEAKER) 2.63 mmol/L 0.50-2.20 H (test code = 2872) Voice Network Administrator ID - ZLENRS-[id number] 20:22:02 Test Item Value Reference Range Interpretation Comments POC-Glucose (test code = 134 mg/dL 70-110 H : T ESTED AT [facility] 1855) 6720 [facility], 770 30: Voice Network Administrator/Techni amaya ID = [id number] for JOSEFA, TAL Lab Interpretation (test Abnormal code = 94051-4) [facility]-[id number] 20:22:02 Test Item Value Reference Range Interpretation Comments POC-Glucose (test code = 134 mg/dL 70-110 H : T ESTED AT [facility] 1855) 6720 [facility], 770 30: Voice Network Administrator/Techni amaya ID = [id number] for JOSEFA, TAL Lab Interpretation (test Abnormal code = 81671-6) [facility]-[id number] 20:22:02 Test Item Value Reference Range Interpretation Comments POC-Glucose (test code = 134 mg/dL 70-110 H : T ESTED AT [facility] 1855) 20 [facility], 770 30: Voice Network Administrator/Techni amaya ID = [id number] for JOSEFA, TAL Lab Interpretation (test Abnormal code = 80199-3) [facility]-[id number] 20:22:02 Test Item Value Reference Range Interpretation Comments POC-Glucose (test code = 134 mg/dL 70-110 H : T ESTED AT [facility] 1855) [address] [place] [address], 770 30: Voice Network Administrator/Techni amaya ID = [id number] for JOSEFA, TAL Lab Interpretation (test Abnormal code = 77769-8) [facility]-[id number] 20:22:02 Test Item Value Reference Range Interpretation Comments POC-GLUCOSE (BEAKER) 134 mg/dL 70-110 H : TESTE D AT [facility] 6720 (test code = 1855) [facility], 27520: Voice Network Administrator/Techni amaya ID = [id number] for SUBI A, TAL [id number]-[id number] 20:22:01 Test Item Value Reference Range Interpretation Comments POC-Hemoglobin (test code 11.6 g/dL 12.0-15.0 L : TESTED AT [facility] = 1856) 6720 [facility], 770 30: Voice Network Administrator/Techni amaya ID = [id number] for JOSEFA, TAL Lab Interpretation (test Abnormal code = 45532-8) [facility]-[id number] 20:22:01 Test Item Value Reference Range Interpretation Comments POC-Hematocrit (test code 34 % 36-45 L : = 1857) Voice Network Administrator/Techni amaya ID = [id number] for JOSEFA, TAL Lab Interpretation (test Abnormal code = 88657-7) [facility]-[id number] 20:22:01 Test Item Value Reference Range Interpretation Comments POC-Hemoglobin (test code 11.6 g/dL 12.0-15.0 L : TESTED AT [facility] = 1856) [address] [place] [address], 770 30: Voice Network Administrator/Techni amaya ID = [id number] for JOSEFA, TAL Lab Interpretation (test Abnormal code = 92790-1) [facility]-[id number] 20:22:01 Test Item Value Reference Range Interpretation Comments POC-Hematocrit (test code 34 % 36-45 L : = 1857) Voice Network Administrator/Techni amaya ID = [id number] for JOSEFA, TAL Lab Interpretation (test Abnormal code = 80191-9) [facility]-[id number] 20:22:01 Test Item Value Reference Range Interpretation Comments POC-Hemoglobin (test code 11.6 g/dL 12.0-15.0 L : TESTED AT [facility] = 1856) [address] [place] [address], 770 30: Voice Network Administrator/Techni amaya ID = [id number] for JOSEFA, TAL Lab Interpretation (test Abnormal code = 93346-9) [facility]-[id number] 20:22:01 Test Item Value Reference Range Interpretation Comments POC-Hematocrit (test code 34 % 36-45 L : = 1857) Voice Network Administrator/Techni amaya ID = [id number] for JOSEFA, TAL Lab Interpretation (test Abnormal code = 70799-8) [facility]-[id number] 20:22:01 Test Item Value Reference Range Interpretation Comments POC-Hemoglobin (test code 11.6 g/dL 12.0-15.0 L : TESTED AT [facility] = 1856) [address] [place] [address], 770 30: Voice Network Administrator/Techni amaya ID = [id number] for JOSEFA, TAL Lab Interpretation (test Abnormal code = 38682-4) [id number] 20:22:01 Test Item Value Reference Range Interpretation Comments POC-Hematocrit (test code 34 % 36-45 L : = 1857) Voice Network Administrator/Techni amaya ID = [id number] for JOSEFA, TAL Lab Interpretation (test Abnormal code = 28082-4) [facility]-VBXIZNNMME0696-01-26 20:22:01 Test Item Value Reference Range Interpretation Comments POC-HEMOGLOBIN 11.6 g/dL 12.0-15.0 L : TESTED AT [facility] 6720 (BEAKER) (test code [facility], = 1856) 79445: Voice Network Administrator/Techni amaya ID = [id number] for SUBI A, TAL [id number] 20:22:01 Test Item Value Reference Range Interpretation Comments POC-HEMATOCRIT 34 % 36-45 L : Voice Network Administrator/Te chnician ID = (BEAKER) (test code = 415342 for JOSEFA, TAL 1857) [id number] 20:21:54 Test Item Value Reference Range Interpretation Comments POC-Potassium (test code 4.8 meq/L 3.6-5.5 : T ESTED AT [facility] = 1540) 6720 [facility], 770 30: Voice Network Administrator/Techni amaya ID = [id number] for JOSEFA, TAL Lab Interpretation (test Normal code = 83323-0) [facility]-Nlnxwtyna5711-84-63 20:21:54 Test Item Value Reference Range Interpretation Comments POC-Potassium (test code 4.8 meq/L 3.6-5.5 : T ESTED AT [facility] = 1540) 20 [facility], 770 30: Voice Network Administrator/Techni amaya ID = [id number] for JOSEFA, TAL Lab Interpretation (test Normal code = 26971-2) [facility]-Pqwovkenj9860-11-83 20:21:54 Test Item Value Reference Range Interpretation Comments POC-Potassium (test code 4.8 meq/L 3.6-5.5 : T ESTED AT [facility] = 1540) [address] [place] [address], 770 30: Voice Network Administrator/Techni amaya ID = [id number] for JOSEFA, TAL Lab Interpretation (test Normal code = 17747-1) [facility]-Kwcypouzr2569-86-52 20:21:54 Test Item Value Reference Range Interpretation Comments POC-Potassium (test code 4.8 meq/L 3.6-5.5 : T ESTED AT [facility] = 1540) 6720 [facility] [place], 770 30: Voice Network Administrator/Techni amaya ID = [id number] for JOSEFA, TAL Lab Interpretation (test Normal code = 87066-4) [facility]-[id number] 20:21:54 Test Item Value Reference Range Interpretation Comments POC-POTASSIUM 4.8 meq/L 3.6-5.5 : TESTED AT [facility] 6720 (BEAKER) (test code [facility], = 1540) 75753: Voice Network Administrator/Techni amaya ID = [id number] for SUBI A, TAL POC-Blood gases, [id number] 20:21:53 Test Item Value Reference Range Interpretation Comments Temp. Celsius-POC (test 99.3 code = 1834) FIO2-POC (test code = 100 1835) pH, Venous-POC (test 7.410 7.320-7.420 : TESTE D AT [facility] code = 1842) 6720 [facility], [address] PCO2, Venous-POC (test 50.2 See_Comment If pO [...] mated message] code = 1844) The system whic h generated this result transmit amy reference range : 25.0 - 40.0 mm Hg. The reference r julia was not used to interpret this result as normal/abnormal . SO2, Venous-POC (test 63.0 % 40.0-70.0 code = 1845) HCO3, Venous-POC (test 31.7 meq/L 21.0-29.0 H code = 1846) BE, Venous-POC (test 7.0 meq/L -2.0-3.0 H : code = 1847) Voice Network Administrator/Techni amaya ID = [id number] for JOSEFA, TAL Lab Interpretation Abnormal (test code = 35769-8) [facility]-Lygiri8159-60-11 20:21:53 Test Item Value Reference Range Interpretation Comments POC-Sodium (test code = 140 meq/L 135-148 : TE STED AT [facility] 1542) 6720 [facility] [place], 770 30: Voice Network Administrator/Techni amaya ID = [id number] for JOSEFA, TAL Lab Interpretation (test Normal code = 39432-8) [facility]-Blood gases, [id number] 20:21:53 Test Item Value Reference Range Interpretation Comments Temp. Celsius-POC (test 99.3 code = 1834) FIO2-POC (test code = 100 1835) pH, Venous-POC (test 7.410 7.320-7.420 : TESTE D AT [facility] code = 1842) 6720 [place] [place], [address] PCO2, Venous-POC (test 50.2 See_Comment If pO [...] mated message] code = 1844) The system MR Prest[employer] h generated this result transmit may reference range : 25.0 - 40.0 mm Hg. The reference r julia was not used to interpret this result as normal/abnormal . SO2, Venous-POC (test 63.0 % 40.0-70.0 code = 1845) HCO3, Venous-POC (test 31.7 meq/L 21.0-29.0 H code = 1846) BE, Venous-POC (test 7.0 meq/L -2.0-3.0 H : code = 1847) Voice Network Administrator/Techni amaya ID = [id number] for JOSEFA, TAL Lab Interpretation Abnormal (test code = 21721-9) [facility]-[id number] 20:21:53 Test Item Value Reference Range Interpretation Comments POC-Sodium (test code = 140 meq/L 135-148 : TE STED AT [facility] 1542) 6720 [facility], 770 30: Voice Network Administrator/Techni amaya ID = [id number] for JOSEFA, TAL Lab Interpretation (test Normal code = 04337-9) [facility]-Blood gases, [id number] 20:21:53 Test Item Value Reference Range Interpretation Comments Temp. Celsius-POC (test 99.3 code = 1834) FIO2-POC (test code = 100 1835) pH, Venous-POC (test 7.410 7.320-7.420 : TESTE D AT [facility] code = 1842) 6720 [place], [address] PCO2, Venous-POC (test 50.2 See_Comment If pO [...] mated message] code = 1844) The system [employer] generated this result transmit may reference range : 25.0 - 40.0 mm Hg. The reference r julia was not used to interpret this result as normal/abnormal . SO2, Venous-POC (test 63.0 % 40.0-70.0 code = 1845) HCO3, Venous-POC (test 31.7 meq/L 21.0-29.0 H code = 1846) BE, Venous-POC (test 7.0 meq/L -2.0-3.0 H : code = 1847) Voice Network Administrator/Techni amaya ID = [id number] for JOSEFA, TAL Lab Interpretation Abnormal (test code = 76209-1) [facility]-Lfhakj0346-93-77 20:21:53 Test Item Value Reference Range Interpretation Comments POC-Sodium (test code = 140 meq/L 135-148 : TE STED AT [facility] 1542) 6720 [facility], 770 30: Voice Network Administrator/Techni amaya ID = [id number] for JOSEFA, TAL Lab Interpretation (test Normal code = 59070-3) [facility]-Blood gases, [id number] 20:21:53 Test Item Value Reference Range Interpretation Comments Temp. Celsius-POC (test 99.3 code = 1834) FIO2-POC (test code = 100 1835) pH, Venous-POC (test 7.410 7.320-7.420 : TESTE D AT [facility] code = 1842) 6720 [place], [address] PCO2, Venous-POC (test 50.2 See_Comment If pO [...] mated message] code = 1844) The system [employer] generated this result transmit may reference range : 25.0 - 40.0 mm Hg. The reference r julia was not used to interpret this result as normal/abnormal . SO2, Venous-POC (test 63.0 % 40.0-70.0 code = 1845) HCO3, Venous-POC (test 31.7 meq/L 21.0-29.0 H code = 1846) BE, Venous-POC (test 7.0 meq/L -2.0-3.0 H : code = 1847) Voice Network Administrator/Techni amaya ID = [id number] for JOSEFA, TAL Lab Interpretation Abnormal (test code = 82509-7) [facility]-[id number] 20:21:53 Test Item Value Reference Range Interpretation Comments POC-Sodium (test code = 140 meq/L 135-148 : TE STED AT [facility] 1542) 6720 [facility] [place], 770 30: Voice Network Administrator/Techni amaya ID = [id number] for JOSEFA, TAL Lab Interpretation (test Normal code = 58092-9) [facility]-BLOOD GASES, [id number] 20:21:53 Test Item Value Reference Range Interpretation Comments TEMP, CELSIUS-POC 99.3 (BEAKER) (test code = 1834) FIO2-POC (BEAKER) 100 (test code = 1835) PH, VENOUS-POC 7.410 7.320-7.420 : TESTED AT [place] [address] ([facility]) (test code [facility], = 184) [address] PCO2, VENOUS-POC 50.2 mm Hg 41.0-51.0 If pO2 is > 180, pCO2 may (BEAKER) (test code be posit ively biased = 1843) PO2, VENOUS-POC 34.0 mm Hg 25.0-40.0 (BEAKER) (test code = 1844) SO2, VENOUS-POC 63.0 % 40.0-70.0 (BEAKER) (test code = 1845) HCO3, VENOUS-POC 31.7 meq/L 21.0-29.0 H (AKER) (test code = 1846) BASE EXCESS, 7.0 meq/L -2.0-3.0 H : Voice Network Administrator/Tech nician ID VENOUS-POC (BEAKER) = [id number] for JOSEFA, (test code = 1847) TAL [id number] 20:21:53 Test Item Value Reference Range Interpretation Comments POC-SODIUM ([facility]) 140 meq/L 135-148 : TESTED AT [place] [address] (test code = 1542) [facility], [address]: Voice Network Administrator/Techni amaya ID = [id number] for SUBI A, TAL POCT-GLUCOSE [id number] 18:00:18 Test Item Value Reference Range Interpretation Comments POC-GLUCOSE METER 104 mg/dL 70-110 : TESTED A [place] [address] ([facility]) (test code = [facility], 1538) [address]: Voice Network Administrator/Techni amaya ID = [id number] for Mc Fee, Corie POCT-GLUCOSE [id number] 11:05:54 Test Item Value Reference Range Interpretation Comments POC-GLUCOSE METER 106 mg/dL 70-110 : TESTED A [place] [address] ([facility]) (test code = [facility], 153) 430[address]: Voice Network Administrator/Techni amaya ID = [id number] for Mc Fee, Corie POCT-GLUCOSE [id number] 05:47:41 Test Item Value Reference Range Interpretation Comments POC-GLUCOSE METER 98 mg/dL 70-110 : TESTED A T [facility] 6720 ([facility]) (test code = [facility], 1538) [address]: Voice Network Administrator/Techni amaya ID = [id number] for JAIM E PRAFUL, TOSHIA [id number] 04:09:51 Test Item Value Reference Range Interpretation Comments PHOSPHORUS (BEAKER) (test code = 3.5 mg/dL 2.3-4.7 604) Voice Network Administrator ID - MEE LPOCT-GLUCOSE [id number] 00:30:03 Test Item Value Reference Range Interpretation Comments POC-GLUCOSE METER 96 mg/dL 70-110 : TESTED A T [facility] 6720 ([facility]) (test code = [facility], 1538) [address]: Voice Network Administrator/Techni amaya ID = [id number] for JAIM E PRAFUL, TOSHIA POCT-GLUCOSE [id number] 18:35:26 Test Item Value Reference Range Interpretation Comments POC-GLUCOSE METER 100 mg/dL 70-110 : TESTED A T [facility] 6720 ([facility]) (test code = [facility], 1538) [address]604: Voice Network Administrator/Techni amaya ID = [id number] for Estela Arvizu POCT-GLUCOSE [id number] 12:12:23 Test Item Value Reference Range Interpretation Comments POC-GLUCOSE METER 96 mg/dL 70-110 : TESTED A T [facility] 6720 ([facility]) (test code = [facility], 1538) 78708: Voice Network Administrator/Techni amaya ID = [id number] for Estela Hebert SPUTUM CULTURE + GRAM [id number] 09:19:53 Test Item Value Reference Interpretation Comments Range CULTURE ([facility]) METHICILLIN A 2+ Methicil dajuan (test code [...] Vancomycin (test code S = 13) CULTURE ([facility]) BURKHOLDERIA A 1+ [place] eria (test code [...] No organisms seen (BEAKER) (test code = 328597) POCT-GLUCOSE [id number] 06:59:08 Test Item Value Reference Range Interpretation Comments POC-GLUCOSE METER 116 mg/dL 70-110 H : TESTED A T [facility] 6720 (BEAKER) (test code = [place] [facility], 1538) [address]: Voice Network Administrator/Techni amaya ID = [id number] for TIM ABDULLAHI [id number] 06:17:56 Test Item Value Reference Range Interpretation Comments MAGNESIUM (BEAKER) (test code = 1.8 mg/dL 1.6-2.6 627) Voice Network Administrator ID - MEE [id number] 06:17:56 Test Item Value Reference Range Interpretation Comments PHOSPHORUS (BEAKER) (test code = 3.4 mg/dL 2.3-4.7 604) Voice Network Administrator ID - MEE LBASIC METABOLIC [id number] 06:17:55 Test Item Value Reference Range Interpretation [...] (test code = 697) EGFR (BEAKER) 120 Interpretati on of eGFR (test code = [...] not appl icable for dialysis patien ts Voice Network Administrator ID - PIRUSS LCBC (HEMOGRAM ONLY)2022-06-19 05:33:41 Test Item Value [...] 0-0 (BEAKER) (test code = 413) POCT-GLUCOSE [id number] 01:04:38 Test Item Value Reference Range Interpretation Comments POC-GLUCOSE METER 91 mg/dL 70-110 : [facility] (test code = [facility], 153) [address]: Voice Network Administrator/Techni amaya ID = [id number] for TIM NELSON VANCOMYCIN LEVEL, [id number] 19:31:03 Test Item Value Reference Range Interpretation Comments VANCOMYCIN TROUGH (BEAKER) (test 8.7 ug/mL 10.0-20.0 L code = 522) Voice Network Administrator ID - AMADO MPOCT-GLUCOSE [id number] 18:23:15 Test Item Value Reference Range Interpretation Comments POC-GLUCOSE METER 128 mg/dL 70-110 H : [facility] (test code = [facility], 153) 23744: Voice Network Administrator/Techni amaya ID = [id number] for HECTOR JOSEPH POCT-GLUCOSE [id number] 12:17:27 Test Item Value Reference Range Interpretation Comments POC-GLUCOSE METER 110 mg/dL 70-110 : [facility] (test code = [facility], 1538) [address]: Voice Network Administrator/Techni amaya ID = [id number] for Estela Arvizu [id number] 06:23:38 Test Item Value Reference Range Interpretation Comments MAGNESIUM (BEAKER) (test code = 1.8 mg/dL 1.6-2.6 627) Voice Network Administrator ID - AMADO [id number] 06:23:38 Test Item Value Reference Range Interpretation Comments PHOSPHORUS (BEAKER) (test code = 2.9 mg/dL 2.3-4.7 604) Voice Network Administrator ID - AMADO MBASIC METABOLIC [id number] 06:23:37 Test Item Value Reference Range Interpretation [...] not appl icable for dialysis patien ts Voice Network Administrator ID - AMADO MPOCT-GLUCOSE [id number] 06:08:11 Test Item Value Reference Range Interpretation Comments POC-GLUCOSE METER 94 mg/dL 70-110 : TESTED [facility] T [facility] (BEAKER) (test code = [place], 1538) [address]: Voice Network Administrator/Techni amaya ID = [id number] for Ilana Rodgers do CBC (HEMOGRAM ONLY)2022-06-18 [...] 0-0 (BEAKER) (test code = 413) POCT-GLUCOSE [id number] 22:15:43 Test Item Value Reference Range Interpretation Comments POC-GLUCOSE METER 99 mg/dL 70-110 : TESTED A T [facility] 67[facility] (BEAKER) (test code = [facility], 1538) 20912: Voice Network Administrator/Techni amaya ID = [id number] for TIM NELSON POCT-GLUCOSE [id number] 19:24:14 Test Item Value Reference Range Interpretation Comments POC-GLUCOSE METER 93 mg/dL 70-110 : TESTED A T [facility] 67[facility] (BEAKER) (test code = [facility], 1538) 87842: Voice Network Administrator/Techni amaya ID = [id number] for Alexia Davila 2D Echo W/Doppler(CW/PW/Color)2022-06-17 17:42:49Ejection [facility] ECHO HEARTLAB MKCKESSON [facility] Echo W/Doppler(CW/PW/Color)2022-06-17 17:42:49Ejection [facility] ECHO HEARTLAB [facility] Echo W/Doppler(CW/PW/Color) 2022-06-17 17:42:49Ejection [facility] W/Doppler(CW/PW/Color)2022-06-17 17:42:49Ejection [facility] [id number] 17:10:48 Test Item Value Reference Range Interpretation [...] not appl icable for dialysis patien ts Voice Network Administrator ID - BSHEMOGLOBIN AND [id number] 16:53:14 Test Item Value Reference Range Interpretation Comments HEMOGLOBIN (BEAKER) (test code = 8.0 GM/DL 11.2-15.7 L 410) HEMATOCRIT (BEAKER) (test code = 25.1 % 34.1-44.9 L 411) Voice Network Administrator ID - [id number] doppler legs [id number] 16:05:02Ejection [facility] ECHO [facility] [id number] 16:05:02Ejection [facility] ECHO HEARTLAB MKCKESSON [facility] legs bilateral 2022-06-17 16:05:02Ejection [facility]raction[facility]LE[facility] ECHO HEARTLAB [facility] HospitalVen[facility] doppler legs [id number] 16:05:02Ejection [facility] ECHO HEARTLAB [facility] 2022-06-17 15:14:24 Test Item Value Reference Range Interpretation Comments MAGNESIUM (BEAKER) (test code = 2.0 mg/dL 1.6-2.6 627) Voice Network Administrator ID - BSBASIC METABOLIC [id number] 14:35:34 Test Item Value Reference Range Interpretation [...] not appl icable for dialysis patien ts Voice Network Administrator ID - PIAYA LPOCT-GLUCOSE [id number] 13:16:09 Test Item Value Reference Range Interpretation Comments POC-GLUCOSE METER 121 mg/dL 70-110 H : Notified RN/MD: (CHU) (test code = TESTED AT [facility] 67[address] 1538) [place], [address]: Voice Network Administrator/Techni amaya ID = [id number] for Meme Medellin RAD, CHEST, 1 VIEW, NON [id number] 08:21:00Reason for exam:->eval for pulmonary congestionShould this be performed at the bedside?->Yes [facility] 1975 Sex: FFINAL REPORT Chest AP portable Comparison exam: 06/16/2022 History provided: Evaluation for pulmonary congestion Heart size normal. Airspace disease has developed within the left lower lobe which merits short-term follow- up. Right lung clear. Normal vascularity. Tracheostomy tube and left-sided PICC line in place. Signed: Diomedes Wiggins Verified Date/Time: 06/17/2022 08:21:08 ReadingLocation: [facility] Diagnostic Imaging Reading Room - [facility] 1.310.12 POCT- GLUCOSE [id number] 06:03:37 Test Item Value Reference Range Interpretation Comments POC-GLUCOSE METER 83 mg/dL 70-110 : TESTED A T [facility] (BEAKER) (test code = [place], 1538) [address]: Voice Network Administrator/Techni amaya ID = [id number] for Konf or (contract), Lil bronwyn BASIC METABOLIC [id number] 05:03:41 Test Item Value Reference Range Interpretation [...] not appl icable for dialysis patien ts Voice Network Administrator ID - MEE [id number] 05:03:41 Test Item Value Reference Range Interpretation Comments MAGNESIUM (BEAKER) (test code = 1.7 mg/dL 1.6-2.6 627) Voice Network Administrator ID - MEE [id number] 05:03:41 Test Item Value Reference Range Interpretation Comments PHOSPHORUS (BEAKER) (test code = 2.8 mg/dL 2.3-4.7 604) Voice Network Administrator ID - PIAYA LCBC (HEMOGRAM ONLY)2022-06-17 04:27:39 Test Item Value [...] 0-0 (BEAKER) (test code = 413) POCT-GLUCOSE [id number] 23:45:59 Test Item Value Reference Range Interpretation Comments POC-GLUCOSE METER 80 mg/dL 70-110 : TESTED A T [facility] [address] (BEAKER) (test code = [place], 1538) [address]: Voice Network Administrator/Techni amaya ID = [id number] for Lizz or (contract)Catherine RAD, CHEST, 1 VIEW, NON [id number] 23:30:00Reason for exam:->eval pulmonary congestionShould this be performed at the bedside?->Yes [facility] : 1975 Sex: FFINAL REPORT [...] tip overlies the SVC. Signed: Jo Pereira MDReport Verified Date/Time: 06/16/2022 23:30:48 -GLUCOSE [id number] 17:30:55 Test Item Value Reference Range Interpretation Comments POC-GLUCOSE METER 78 mg/dL 70-110 : TESTED A T [facility] (CHU) (test code = [place], 1538) [address]: Voice Network Administrator/Techni amaya ID = [id number] for Louisa Kilpatrick CT, BRAIN, WITHOUT [id number] 14:28:00Reason for Exam (Free Text) - Addiitonal information for Radiologist->hx of stroke / anoxic /brain injury [facility] : 1975 Sex: FFINAL REPORT [...] Baez MDReport Verified Date/Time: 06/16/2022 14:28:06 SARS-COV2/RT-PCR ([facility])2022-06-16 11:20:51 Test Item Value Reference Range Interpretation Comments SARS-COV2/RT-PCR Negative Negative The SARS-Co V-2 target (test code = nucleic acids a re not 2482415) detected in thi s specimen. Negative result [...] revoked sooner. Fact Sheet for Healthcare Providers: https://www.uniRow m/Documents/Xpert%20Xpress%20SARS%20CoV-2/Fact%20Sheets/302-3802%26HSNZ-OLN-0%20 HEALTHCARE%20PROVIDERS%20FACT%20SHEET.pdf Fact Sheet for Healthcare Patients: https://www.RUSBASE/Documents/Xpert%20Xp ress%20SARS%20CoV-2/Fact%20Sheets/302-3801%24QWTQ-XZU-2%20PATIENT%20FACT%20SHEET .ljzLMRABFQBZGAZT2029-04-03 10:39:32 Test Item Value Reference Range Interpretation Comments PROCALCITONIN (BEAKER) (test code 1.03 ng/mL <0.05 H = 3036) SEPSIS RISK (ng/mL)Low: 0.05-0.50Intermediate: 0.51-2.00High: >=2.01BASIC METABOLIC [id number] 10:30:08 Test Item Value Reference Range Interpretation [...] not appl icable for dialysis patien ts Voice Network Administrator ID - AMADO MHEPATIC FUNCTION [id number] 10:30:08 Test Item Value Reference Range Interpretation [...] (test code = 40 U/L 6-55 347) Voice Network Administrator ID Norman FISCHER MUrinalysis w/Microscopic + Reflex to [id number] 10:24:21 Test Item Value Reference Range Interpretation Comments Color, UA (test code Light Yellow = 5778-6) Clarity, UA (test Clear code = 5767-9) Specific [place], UA 1.017 1.001-1.035 (test code = 5811-5) pH, UA (test code = 6.0 5.0-8.0 5803-2) Protein, UA (test 10 mg/dL Negative A code = 68605-4) Glucose, UA (test Negative Negative code = 365) Ketones, UA (test 40 mg/dL Negative A code = 2514-8) Bilirubin, UA (test Negative Negative code = 51682-5) Blood, UA (test code Negative Negative = 99564-2) Nitrite, UA (test Negative Negative code = 5802-4) Leukocytes, UA (test Trace Negative A code = 5799-2) Urobilinogen, UA 0.2 mg/dL 0.2-1.0 (test code = 44739-6) RBC, UA (test code = 2 See_Comment [Autom ated 39650-4) message] The system which generated this result [...] . Bacteria, UA (test Rare code = 37684-9) Mucus (test code = Rare 8247-9) Squam Epithel, UA 1 See_Comment [Automate d (test code = 52706-4) messag e] The system which generated this result transmit may reference range : /HPF. The reference range was not used to interpret this result as normal/abnormal . Hyaline Casts, UA 4 See_Comment [Automate d (test code = 32584-7) messag e] The system which generated this result transmit may reference range : /LPF. The reference range was not used to interpret this result as normal/abnormal . Crystals, Urine (test None Seen code = 37062-7) Specimen Source (test code = 2795) TONY (test code = TONY) Voice Network Administrator ID - [auto]Voice Network Administrator ID - tech Lab Interpretation Abnormal (test code = 46346-2) [facility]lex to Culture 2022-06-16 10:24:21 Test Item Value Reference Range Interpretation Comments Color, UA (test code Light Yellow = 5778-6) Clarity, UA (test Clear code = 5767-9) Specific [place], UA 1.017 1.001-1.035 (test code = 5811-5) pH, UA (test code = 6.0 5.0-8.0 5803-2) Protein, UA (test 10 mg/dL Negative A code = 24594-7) Glucose, UA (test Negative Negative code = 365) Ketones, UA (test 40 mg/dL Negative A code = 2514-8) Bilirubin, UA (test Negative Negative code = 16989-8) Blood, UA (test code Negative Negative = 93847-1) Nitrite, UA (test Negative Negative code = 5802-4) Leukocytes, UA (test Trace Negative A code = 5799-2) Urobilinogen, UA 0.2 mg/dL 0.2-1.0 (test code = 58509-8) RBC, UA (test code = 2 See_Comment [Autom ated 34169-4) message] The system which generated this result [...] . Bacteria, UA (test Rare code = 39820-1) Mucus (test code = Rare 8247-9) Squam Epithel, UA 1 See_Comment [Automate d (test code = 45937-1) messag e] The system which generated this result transmit may reference range : /HPF. The reference range was not used to interpret this result as normal/abnormal . Hyaline Casts, UA 4 See_Comment [Automate d (test code = 03309-7) messag e] The system which generated this result transmit may reference range : /LPF. The reference range was not used to interpret this result as normal/abnormal . Crystals, Urine (test None Seen code = 03013-3) Specimen Source (test code = 2795) TONY (test code = TONY) Voice Network Administrator ID - [auto]Voice Network Administrator ID - tech Lab Interpretation Abnormal (test code = 58959-5) [facility] + Reflex to Culture 2022-06-16 10:24:21 Test Item Value Reference Range Interpretation Comments Color, UA (test code Light Yellow = 5778-6) Clarity, UA (test Clear code = 5767-9) Specific [place], UA 1.017 1.001-1.035 (test code = 5811-5) pH, UA (test code = 6.0 5.0-8.0 5803-2) Protein, UA (test 10 mg/dL Negative A code = 77876-2) Glucose, UA (test Negative Negative code = 365) Ketones, UA (test 40 mg/dL Negative A code = 2514-8) Bilirubin, UA (test Negative Negative code = 36629-7) Blood, UA (test code Negative Negative = 84751-6) Nitrite, UA (test Negative Negative code = 5802-4) Leukocytes, UA (test Trace Negative A code = 5799-2) Urobilinogen, UA 0.2 mg/dL 0.2-1.0 (test code = 14495-3) RBC, UA (test code = 2 See_Comment [Autom ated 46389-2) message] The system which generated this result [...] . Bacteria, UA (test Rare code = 37438-1) Mucus (test code = Rare 8247-9) Squam Epithel, UA 1 See_Comment [Automate d (test code = 26075-7) messag e] The system which generated this result transmit may reference range : /HPF. The reference range was not used to interpret this result as normal/abnormal . Hyaline Casts, UA 4 See_Comment [Automate d (test code = 76544-9) messag e] The system which generated this result transmit may reference range : /LPF. The reference range was not used to interpret this result as normal/abnormal . Crystals, Urine (test None Seen code = 70257-7) Specimen Source (test code = 2795) TONY (test code = TONY) Voice Network Administrator ID - [auto]Voice Network Administrator ID - tech Lab Interpretation Abnormal (test code = 50347-0) [facility] + Reflex to Culture 2022-06-16 10:24:21 Test Item Value Reference Range Interpretation Comments Color, UA (test code Light Yellow = 5778-6) Clarity, UA (test Clear code = 5767-9) Specific [place], UA 1.017 1.001-1.035 (test code = 5811-5) pH, UA (test code = 6.0 5.0-8.0 5803-2) Protein, UA (test 10 mg/dL Negative A code = 57097-2) Glucose, UA (test Negative Negative code = 365) Ketones, UA (test 40 mg/dL Negative A code = 2514-8) Bilirubin, UA (test Negative Negative code = 11713-4) Blood, UA (test code Negative Negative = 94516-9) Nitrite, UA (test Negative Negative code = 5802-4) Leukocytes, UA (test Trace Negative A code = 5799-2) Urobilinogen, UA 0.2 mg/dL 0.2-1.0 (test code = 29720-3) RBC, UA (test code = 2 See_Comment [Autom ated 98066-5) message] The system which generated this result [...] . Bacteria, UA (test Rare code = 96997-4) Mucus (test code = Rare 8247-9) Squam Epithel, UA 1 See_Comment [Automate d (test code = 14638-7) messag e] The system which generated this result transmit may reference range : /HPF. The reference range was not used to interpret this result as normal/abnormal . Hyaline Casts, UA 4 See_Comment [Automate d (test code = 99784-7) messag e] The system which generated this result transmit may reference range : /LPF. The reference range was not used to interpret this result as normal/abnormal . Crystals, Urine (test None Seen code = 57349-5) Specimen Source (test code = 2795) TONY (test code = TONY) Voice Network Administrator ID - [auto]Voice Network Administrator ID - tech Lab Interpretation Abnormal (test code = 52016-3) [facility]LEX URINE [id number] 10:24:21 Test Item Value Reference Range Interpretation [...] = 1521) SOURCE(BEAKER) (test code = 2795) Voice Network Administrator ID - [auto]Voice Network Administrator ID - techLACTIC ACID, [id number] 10:21:26 Test Item Value Reference Range Interpretation Comments LACTATE BLOOD VENOUS (2) (BEAKER) 1.86 mmol/L 0.50-2.20 (test code = 7742) Voice Network Administrator ID - AMADO MCBC (HEMOGRAM ONLY)2022-06-16 09:56:33 [...] (BEAKER) (test code = 413) BLOOD GAS, [id number] 09:55:57 Test Item Value Reference Range Interpretation [...] TEMPERATURE (BEAKER) (test 37.0 code = 1818) [id number] 16:03:00 Test Item Value Reference Range Interpretation Comments GLUBED (test code = GLUBED) 101 MG/DL 70-105 N [id number] 11:04:00 Test Item Value Reference Range Interpretation Comments GLUBED (test code = GLUBED) 179 MG/DL 70-105 H BASIC METABOLIC [id number] 08:00:00 Test Item Value Reference Range Interpretation [...] mg/dL 8.5-10.5 N = CA) CBC W/AUTO [id number] 06:57:00 Test Item Value Reference Range Interpretation [...] = BA#) 0.0 x10 3/uL 0.0-0.1 N [id number] 06:14:00 Test Item Value Reference Range Interpretation Comments GLUBED (test code = GLUBED) 106 MG/DL 70-105 H [id number] 20:22:00 Test Item Value Reference Range Interpretation Comments GLUBED (test code = GLUBED) 120 MG/DL 70-105 H [id number] 15:21:00 Test Item Value Reference Range Interpretation Comments GLUBED (test code = GLUBED) 125 MG/DL 70-105 H [id number] 11:16:00 Test Item Value Reference Range Interpretation Comments GLUBED (test code = GLUBED) 153 MG/DL 70-105 H [id number] 06:36:00 Test Item Value Reference Range Interpretation Comments GLUBED (test code = GLUBED) 135 MG/DL 70-105 H [id number] 22:08:00 Test Item Value Reference Range Interpretation Comments GLUBED (test code = GLUBED) 105 MG/DL 70-105 N [id number] 16:11:00 Test Item Value Reference Range Interpretation Comments GLUBED (test code = GLUBED) 123 MG/DL 70-105 H [id number] 12:14:00 Test Item Value Reference Range Interpretation Comments GLUBED (test code = GLUBED) 117 MG/DL 70-105 H CBC W/AUTO [id number] 06:20:00 Test Item Value Reference Range Interpretation [...] 0.0 x10 3/uL 0.0-0.1 N BASIC METABOLIC [id number] 06:19:00 Test Item Value Reference Range Interpretation [...] code 9.1 mg/dL 8.5-10.5 N = CA) [id number] 06:05:00 Test Item Value Reference Range Interpretation Comments GLUBED (test code = GLUBED) 128 MG/DL 70-105 H [id number] 00:55:00 Test Item Value Reference Range Interpretation Comments GLUBED (test code = GLUBED) 128 MG/DL 70-105 H - XR CHEST 1 [id number] 18:02:00 [facility] : 1975 Sex: FPatient Name: JERI VILLALOBOS Unit No: [id number] EXAMS: CPT: [id number] XR CHEST 1 V 92651 STUDY: - XR CHEST 1 V INDICATION: [...] Douglass MD; Ruiz Vaughn MD Technologist: Oly Mcdonnell Fluoro Time: DAP (Gy m2): Air Kerma (mGy): Trscr Dt/Tm: 04/17/2022 (1801) by:Robin Orig Print D/T: S: 04/17/2022 (1804) BATCH NO: N/A Name: JERI VILLALOBOS [facility]: Ruiz Wolfe MD [address] [facility] : 1975 Age: 46 Sex: F [place], [place] [address] Loc: N.0377 1 Exam Date: 04/17/2022 Status: ADM IN PH: FAX: PAGE 1 Signed Report [id number] 15:58:00 Test Item Value Reference Range Interpretation Comments GLUBED (test code = GLUBED) 142 MG/DL 70-105 H [id number] 11:34:00 Test Item Value Reference Range Interpretation Comments GLUBED (test code = GLUBED) 113 MG/DL 70-105 H BASIC METABOLIC [id number] 07:39:00 Test Item Value Reference Range Interpretation [...] mg/dL 8.5-10.5 N = CA) CBC W/AUTO [id number] 07:21:00 Test Item Value Reference Range Interpretation [...] = BA#) 0.0 x10 3/uL 0.0-0.1 N [id number] 05:50:00 Test Item Value Reference Range Interpretation Comments GLUBED (test code = GLUBED) 146 MG/DL 70-105 H [id number] 23:41:00 Test Item Value Reference Range Interpretation Comments GLUBED (test code = GLUBED) 103 MG/DL 70-105 N [id number] 15:36:00 Test Item Value Reference Range Interpretation Comments GLUBED (test code = GLUBED) 120 MG/DL 70-105 H [id number] 12:03:00 Test Item Value Reference Range Interpretation Comments GLUBED (test code = GLUBED) 134 MG/DL 70-105 H BASIC METABOLIC [id number] 07:51:00 Test Item Value Reference Range Interpretation [...] mg/dL 8.5-10.5 N = CA) CBC W/AUTO [id number] 07:48:00 Test Item Value Reference Range Interpretation [...] = 0.0 x10 3/uL 0.0-0.1 N BA#) [id number] 06:59:00 Test Item Value Reference Range Interpretation Comments GLUBED (test code = GLUBED) 125 MG/DL 70-105 H [id number] 00:00:00 Test Item Value Reference Range Interpretation Comments GLUBED (test code = GLUBED) 125 MG/DL 70-105 H [id number] 19:47:00 Test Item Value Reference Range Interpretation Comments GLUBED (test code = GLUBED) 106 MG/DL 70-105 H [id number] 16:21:00 Test Item Value Reference Range Interpretation Comments GLUBED (test code = GLUBED) 153 MG/DL 70-105 H [id number] 12:30:00 Test Item Value Reference Range Interpretation Comments GLUBED (test code = GLUBED) 114 MG/DL 70-105 H [id number] 05:46:00 Test Item Value Reference Range Interpretation Comments GLUBED (test code = GLUBED) 136 MG/DL 70-105 H CBC W/AUTO [id number] 04:49:00 Test Item Value Reference Range Interpretation [...] 0.0 x10 3/uL 0.0-0.1 N BASIC METABOLIC [id number] 04:33:00 Test Item Value Reference Range Interpretation [...] code 8.9 mg/dL 8.5-10.5 N = CA) [id number] 20:48:00 Test Item Value Reference Range Interpretation Comments GLUBED (test code = GLUBED) 89 MG/DL 70-105 N [id number] 17:18:00 Test Item Value Reference Range Interpretation Comments GLUBED (test code = GLUBED) 117 MG/DL 70-105 H [id number] 11:19:00 Test Item Value Reference Range Interpretation Comments GLUBED (test code = GLUBED) 113 MG/DL 70-105 H [id number] 06:05:00 Test Item Value Reference Range Interpretation Comments GLUBED (test code = GLUBED) 118 MG/DL 70-105 H BASIC METABOLIC [id number] 04:57:00 Test Item Value Reference Range Interpretation [...] code 8.5 mg/dL 8.5-10.5 N = CA) [id number] 04:57:00 Test Item Value Reference Range Interpretation Comments PHOSPHOROUS (test code = PHOS) 3.8 mg/dl 2.5-4.6 N [id number] 04:57:00 Test Item Value Reference Range Interpretation Comments MAGNESIUM (test code = MAG) 1.8 mg/dl 1.8-2.5 N CBC W/AUTO [id number] 04:44:00 Test Item Value Reference Range Interpretation [...] = BA#) 0.0 x10 3/uL 0.0-0.1 N [id number] 01:16:00 Test Item Value Reference Range Interpretation Comments GLUBED (test code = GLUBED) 84 MG/DL 70-105 N [id number] 17:04:00 Test Item Value Reference Range Interpretation Comments GLUBED (test code = GLUBED) 112 MG/DL 70-105 H [id number] 12:18:00 Test Item Value Reference Range Interpretation Comments GLUBED (test code = GLUBED) 107 MG/DL 70-105 H - XR CHEST 1 [id number] 08:45:00 [facility] : 1975 Sex: FPatient Name: JERI VILLALOBOS Unit No: [id number] EXAMS: CPT: [id number] XR CHEST 1 V 71552 CHEST RADIOGRAPH - 1 view CLINICAL HISTORY: [...] (0848) BATCH NO: N/A Name: JERI VILLALOBOS [facility] Phys: Jorje Brashre MD [address] : 1975 Age: 46 Sex: F [place], [place] [address] Loc: N.2058 1 Exam Date: 04/13/2022 Status: ADM IN PH: FAX: PAGE 1 Signed [id number] 08:10:00 Test Item Value Reference Range Interpretation Comments GLUBED (test code = GLUBED) 102 MG/DL 70-105 N ARTERIAL BLOOD [id number] 04:42:00 Test Item Value Reference Range Interpretation [...] d message] code = MARY) The system [employer] generated this result transmit may reference range [...] g/dL 12.0-18.0 N = THB) BASIC METABOLIC [id number] 04:11:00 Test Item Value Reference Range Interpretation [...] in AM if not alreadyComments to Phleb: ordered.[id number] 04:11:00 Test Item Value Reference Range Interpretation Comments MAGNESIUM (test code = MAG) 1.8 mg/dl 1.8-2.5 N Spec Comments: Repeat Serum Magnesium level in AM if not alreadyComments to Phleb: ordered.CALCIUM [id number] 03:19:00 Test Item Value Reference Range Interpretation Comments CALCIUM IONIZED (test code = WESLY) 1.20 mmol/L 1.13-1.32 N CBC W/AUTO [id number] 03:06:00 Test Item Value Reference Range Interpretation [...] 0.0 x10 3/uL 0.0-0.1 N ARTERIAL BLOOD [id number] 20:54:00 Test Item Value Reference Range Interpretation [...] d message] code = MARY) The system [employer] generated this result transmit may reference range [...] code 15.2 g/dL 12.0-18.0 N = THB) [id number] 16:48:00 Test Item Value Reference Range Interpretation Comments GLUBED (test code = GLUBED) 132 MG/DL 70-105 H COMPREHENSIVE METABOLIC [id number] 16:32:00 Test Item Value Reference Range Interpretation [...] 42-121 N PHOSPHATASE (test code = ALKP) [id number] 16:32:00 Test Item Value Reference Range Interpretation Comments PHOSPHOROUS (test code = PHOS) 3.7 mg/dl 2.5-4.6 N [id number] 16:32:00 Test Item Value Reference Range Interpretation Comments MAGNESIUM (test code = MAG) 2.2 mg/dl 1.8-2.5 N [id number] 11:37:00 Test Item Value Reference Range Interpretation Comments GLUBED (test code = GLUBED) 139 MG/DL 70-105 H - CT HEAD/BRAIN W/O [id number] 10:15:00 [facility] : 1975 Sex: FPatient Name: JERI VILLALOBOS Unit No: [id number] EXAMS: CPT: [id number] CT HEAD/BRAIN W/O CONT [id number] EXAM: CT BRAIN WITHOUT CONTRAST DATE: 04/12/2022 9:04 AM INDICATION: Altered mental status COMPARISON: None. TECHNIQUE: CT imaging was performed with iterative reconstruction techniques and/or automated exposure control to reduce radiation dose. Axial CT images of the brain were obtained. Sagittal and coron al reformats. IV contrast: None. DLP: Refer to CT protocol form FINDINGS: There is no edema, hemorrhage, mass lesion or other acute intracranial abnormality. 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 Mccain- white matter differentiation is otherwise preserved. No midline [...] Perez CTDI: 44.26 DLP: 733.2 Trscr Dt/Tm: 04/12/2022(1015) by:[email or web address] Orig Print D/T: S: 04/12/2022 (1018) BATCH NO: N/A Name: JERI VILLALOBOS [facility] No [facility] Phys: TRANG. [place],Manuel Grant [address] : 1975 Age: 46 Sex: F [place] [address] Loc: N.2058 1 Exam Date: 04/12/2022 Status: ADM IN PH: FAX: PAGE 1 Signed ReportARTERIAL BLOOD GAS 2022-04-12 10:07:00 Test Item Value Reference Range Interpretation [...] d message] code = MARY) The system [employer] generated this result transmit may reference range [...] (test Yes code = ALLENS) BLOOD GAS [id number]/[id number] 10:07:00 Test Item Value Reference Range Interpretation Comments ARTERIAL BLOOD GAS PH 7.463 7.350-7.450 H (test code = PHA) ARTERIAL BLOOD GAS 28.2 mmHg 35-45 L PCO2 (test code = PCO2A) BICARBONATE TOTAL 19.7 mmol/L 22-26 L HCO3 (test code = HCO3) BASE EXCESS (test -2.7 mmol/L See_Comment L [Automate d message] code = MARY) The system [employer] generated this result transmit may reference range [...] N = THB) - CTA CHEST FOR [id number] 10:06:00 [facility] 1975 Sex: FPatient Name: JERI VILLALOBOS Unit No: [id number] EXAMS: CPT: [id number] [place] [address] CTA CHESTWITH CONTRAST: INDICATIONS:Overdose. Tachycardia. COMPARISON: None [...] with ACR practice standards and adherence to fluid pump operator's recommendations. Contrast: 100cc Isovue-300. Total DPL: 388.21mGy*cm. FINDINGS: Bilateral breast implants. A tracheostomy tube is in p lace. No enlarged supraclavicular or axillary lymph node. [...] (1009) BATCH NO: N/A Name: JERI VILLALOBOS [facility] Phys: SIDFA. - Manuel Rose [address] : 1975 Age: 46Sex: F [place], [place] [address] Loc: N.2058 1 Exam Date: 04/12/2022 Status: ADM IN PH: FAX: PAGE 1 Signed ReportCOMPREHENSIVE METABOLIC [id number] 09:41:00 Test Item Value Reference Range Interpretation [...] PHOSPHATASE (test code = ALKP) Spec Comments: DURALUMIN MECHANIC ProtocolCREATINE KINASE (CK)2022-04-12 09:41:00 Test Item Value Reference Range Interpretation Comments CREATINE KINASE (CK) (test code = CK) 80 U/L 0-210 N Spec Comments: DURALUMIN MECHANIC [id number] 09:41:00 Test Item Value Reference Range Interpretation Comments MAGNESIUM (test code = MAG) 2.0 mg/dl 1.8-2.5 N Spec Comments: DURALUMIN MECHANIC ProtocolCBC W/AUTO [id number] 09:37:00 Test Item Value Reference Range Interpretation [...] 0.1 x10 3/uL 0.0-0.1 N Spec Comments: DURALUMIN MECHANIC [id number] 09:37:00 Test Item Value Reference Range Interpretation Comments TROPONIN-I (test code = TROPI) <0.020 ng/mL 0.000-0.034 N CBC W/AUTO [id number] 08:38:00 Test Item Value Reference Range Interpretation [...] (test code = ADEQUATE ADEQUATE PLTEST) DIFFERENTIAL [id number] 08:38:00 Test Item Value Reference Range Interpretation Comments PLATELET MORPHOLOGY (test code = Normal NORMAL PLTMORPH) - XR CHEST 1 [id number] 08:34:00 [facility] VILLAL[facility]OS [place] : 1975 Sex: FPatient Name: JERI VILLALOBOS Unit No: [id number] EXAMS: CPT: [id number] XR CHEST 1 V 75142 CHEST RADIOGRAPH, ONE VIEW: FRONTAL HISTORY: Shortness of breath. COMPARISON: April 01 2022. FINDINGS: Biapical lung scarring. Basilar congestion. Borderline cardiomegaly. IMPRESSION: Basilar congestion and underlyingcardiomegaly. at 0834 Reported and signed by: Jalen Black MD CC: Manuel Rose DO Technologist: Galdino Deleon Time: DAP (Gy m2): Air Kerma (mGy): Trscr Dt/Tm: 04/12/2022 (0834) by:[email or web address] Orig Print D/T: S: 04/12/2022 (0837) BATCH NO: N/AName: FABIJERI [facility] Phys: SIDFA. [facility] [address] [facility] 1975 Age: 46 Sex: F [place], [place] [address] Loc: N.0385 1 Exam Date: 04/12/2022 Status: ADM IN PH: FAX: PAGE 1 Signed ReportBASIC METABOLIC [id number] 08:21:00 Test Item Value Reference Range Interpretation [...] code 9.4 mg/dL 8.5-10.5 N = CA) [id number] 08:07:00 Test Item Value Reference Range Interpretation Comments GLUBED (test code = GLUBED) 116 MG/DL 70-105 H [id number] 06:06:00 Test Item Value Reference Range Interpretation Comments CREATININE (test code = CREAT) 0.63 mg/dL 0.44-1.03 N [id number] 06:03:00 Test Item Value Reference Range Interpretation Comments GLUBED (test code = GLUBED) 124 MG/DL 70-105 H [id number] 21:32:00 Test Item Value Reference Range Interpretation Comments GLUBED (test code = GLUBED) 125 MG/DL 70-105 H [id number] 15:13:00 Test Item Value Reference Range Interpretation Comments GLUBED (test code = GLUBED) 138 MG/DL 70-105 H [id number] 12:10:00 Test Item Value Reference Range Interpretation Comments GLUBED (test code = GLUBED) 129 MG/DL 70-105 H [id number] 07:01:00 Test Item Value Reference Range Interpretation Comments GLUBED (test code = GLUBED) 129 MG/DL 70-105 H [id number] 06:14:00 Test Item Value Reference Range Interpretation Comments CREATININE (test code = CREAT) 0.61 mg/dL 0.44-1.03 N [id number] 21:53:00 Test Item Value Reference Range Interpretation Comments GLUBED (test code = GLUBED) 132 MG/DL 70-105 H [id number] 17:28:00 Test Item Value Reference Range Interpretation Comments GLUBED (test code = GLUBED) 124 MG/DL 70-105 H [id number] 08:46:00 Test Item Value Reference Range Interpretation Comments CREATININE (test code = CREAT) 0.67 mg/dL 0.44-1.03 N [id number] 06:18:00 Test Item Value Reference Range Interpretation Comments GLUBED (test code = GLUBED) 137 MG/DL 70-105 H [id number] 20:49:00 Test Item Value Reference Range Interpretation Comments GLUBED (test code = GLUBED) 122 MG/DL 70-105 H [id number] 16:26:00 Test Item Value Reference Range Interpretation Comments GLUBED (test code = GLUBED) 135 MG/DL 70-105 H [id number] 11:42:00 Test Item Value Reference Range Interpretation Comments GLUBED (test code = GLUBED) 139 MG/DL 70-105 H [id number] 09:59:00 Test Item Value Reference Range Interpretation Comments CREATININE (test code = CREAT) 0.63 mg/dL 0.44-1.03 N VANCOMYCIN [id number] 09:49:00 Test Item Value Reference Range Interpretation Comments VANCOMYCIN TROUGH 18.2 ug/ml 10.0-20.0 N Please ref er to (test code = VANCT) Medicati on Administration Record (MAR) forlast d ose date and time. [id number] 20:27:00 Test Item Value Reference Range Interpretation Comments GLUBED (test code = GLUBED) 134 MG/DL 70-105 H [id number] 15:35:00 Test Item Value Reference Range Interpretation Comments GLUBED (test code = GLUBED) 110 MG/DL 70-105 H [id number] 12:06:00 Test Item Value Reference Range Interpretation Comments GLUBED (test code = GLUBED) 122 MG/DL 70-105 H [id number] 06:35:00 Test Item Value Reference Range Interpretation Comments CREATININE (test code = CREAT) 0.55 mg/dL 0.44-1.03 N [id number] 05:42:00 Test Item Value Reference Range Interpretation Comments GLUBED (test code = GLUBED) 87 MG/DL 70-105 N [id number] 20:26:00 Test Item Value Reference Range Interpretation Comments GLUBED (test code = GLUBED) 116 MG/DL 70-105 H [id number] 15:57:00 Test Item Value Reference Range Interpretation Comments GLUBED (test code = GLUBED) 126 MG/DL 70-105 H [id number] 11:55:00 Test Item Value Reference Range Interpretation Comments GLUBED (test code = GLUBED) 137 MG/DL 70-105 H BASIC METABOLIC [id number] 09:48:00 Test Item Value Reference Range Interpretation [...] 8.9 mg/dL 8.5-10.5 N = CA) VANCOMYCIN [id number] 09:44:00 Test Item Value Reference Range Interpretation Comments VANCOMYCIN TROUGH 19.9 ug/ml 10.0-20.0 N Please ref er to (test code = VANCT) Medicati on Administration Record (MAR) forlast d ose date and time. CBC W/AUTO [id number] 09:22:00 Test Item Value Reference Range Interpretation [...] = BA#) 0.0 x10 3/uL 0.0-0.1 N [id number] 07:10:00 Test Item Value Reference Range Interpretation Comments CREATININE (test code = CREAT) 0.65 mg/dL 0.44-1.03 N [id number] 04:46:00 Test Item Value Reference Range Interpretation Comments GLUBED (test code = GLUBED) 122 MG/DL 70-105 H [id number] 16:41:00 Test Item Value Reference Range Interpretation Comments GLUBED (test code = GLUBED) 128 MG/DL 70-105 H [id number] 11:51:00 Test Item Value Reference Range Interpretation Comments GLUBED (test code = GLUBED) 130 MG/DL 70-105 H VANCOMYCIN [id number] 09:01:00 Test Item Value Reference Range Interpretation Comments VANCOMYCIN TROUGH 11.4 ug/ml 10.0-20.0 N Please ref er to (test code = VANCT) Medicati on Administration Record (MAR) forlast d ose date and time. BASIC METABOLIC [id number] 08:56:00 Test Item Value Reference Range Interpretation [...] mg/dL 8.5-10.5 N = CA) CBC W/AUTO [id number] 08:52:00 Test Item Value Reference Range Interpretation [...] = BA#) 0.0 x10 3/uL 0.0-0.1 N [id number] 06:04:00 Test Item Value Reference Range Interpretation Comments GLUBED (test code = GLUBED) 129 MG/DL 70-105 H [id number] 23:59:00 Test Item Value Reference Range Interpretation Comments GLUBED (test code = GLUBED) 118 MG/DL 70-105 H [id number] 15:29:00 Test Item Value Reference Range Interpretation Comments GLUBED (test code = GLUBED) 137 MG/DL 70-105 H [id number] 10:42:00 Test Item Value Reference Range Interpretation Comments GLUBED (test code = GLUBED) 160 MG/DL 70-105 H [id number] 06:44:00 Test Item Value Reference Range Interpretation Comments GLUBED (test code = GLUBED) 143 MG/DL 70-105 H [id number] 06:32:00 Test Item Value Reference Range Interpretation Comments CREATININE (test code = CREAT) 0.61 mg/dL 0.44-1.03 N [id number] 22:14:00 Test Item Value Reference Range Interpretation Comments GLUBED (test code = GLUBED) 134 MG/DL 70-105 H [id number] 15:26:00 Test Item Value Reference Range Interpretation Comments GLUBED (test code = GLUBED) 127 MG/DL 70-105 H [id number] 10:51:00 Test Item Value Reference Range Interpretation Comments GLUBED (test code = GLUBED) 136 MG/DL 70-105 H [id number] 07:11:00 Test Item Value Reference Range Interpretation Comments CREATININE (test code = CREAT) 0.70 mg/dL 0.44-1.03 N [id number] 05:48:00 Test Item Value Reference Range Interpretation Comments GLUBED (test code = GLUBED) 104 MG/DL 70-105 N [id number] 20:44:00 Test Item Value Reference Range Interpretation Comments GLUBED (test code = GLUBED) 93 MG/DL 70-105 N [id number] 16:59:00 Test Item Value Reference Range Interpretation Comments GLUBED (test code = GLUBED) 110 MG/DL 70-105 H [id number] 12:41:00 Test Item Value Reference Range Interpretation Comments GLUBED (test code = GLUBED) 107 MG/DL 70-105 H [id number] 06:04:00 Test Item Value Reference Range Interpretation Comments GLUBED (test code = GLUBED) 100 MG/DL 70-105 N [id number] 20:16:00 Test Item Value Reference Range Interpretation Comments GLUBED (test code = GLUBED) 104 MG/DL 70-105 N [id number] 16:43:00 Test Item Value Reference Range Interpretation Comments GLUBED (test code = GLUBED) 139 MG/DL 70-105 H [id number] 12:11:00 Test Item Value Reference Range Interpretation Comments GLUBED (test code = GLUBED) 112 MG/DL 70-105 H [id number] 08:07:00 Test Item Value Reference Range Interpretation Comments CREATININE (test code = CREAT) 0.59 mg/dL 0.44-1.03 N [id number] 05:27:00 Test Item Value Reference Range Interpretation Comments GLUBED (test code = GLUBED) 135 MG/DL 70-105 H [id number] 00:46:00 Test Item Value Reference Range Interpretation Comments GLUBED (test code = GLUBED) 117 MG/DL 70-105 H [id number] 16:35:00 Test Item Value Reference Range Interpretation Comments GLUBED (test code = GLUBED) 104 MG/DL 70-105 N [id number] 11:28:00 Test Item Value Reference Range Interpretation Comments GLUBED (test code = GLUBED) 138 MG/DL 70-105 H MISC [id number] 11:03:00 Test Item Value Reference Range Interpretation Comments MISC CHEMISTRY Procaalcitoni n = 0.11 ng/mL (test code = HIGH Ref range = 0.00-0.08 MISCCHEM) Jeri Villalobos : 1975 Patient ReportP atient ID: Age: 46 Account Numb er: [id number] n ID: [id number] Sex: Female Ordering Physic aakash:Ordered Items: Procalci toninDate Collected: 12/2021 Date Received: 03/29 DateReported: 0 03/30/2022 Fasting: Not GivenProcalcito ninTest Current Result and Flag Previous Result and Date UnitsReference IntervalProcalc nfqowl20 0.11 High ng/mL 0.00 -0.08A procalcitonin ( [...] Stephany rtPerforming Labs01: [facility] [address], [place], [place],[address] D ir: Tiburcio Stevens MDFor Inquiries , the physician may contact Branch: Lab: [phone] ient DetailsLedbettliliana cervantes PiaPhone:Date o f : 1975Age: 46Sex: FemalePatient I D:Alternate Patient ID:Phys ician DetailsHCA [facility] [address] [place], [place]Phone: acc ount Number: [id number] an ID: SIDDIQINPI:Honorio rayo DetailsSpecimen ID: [id number] ontrol ID: [id number] rnate Control Number: [id number] Collected: 12/2021 1328 LocalDate Recei elba: 03/29/2022 0000 ETDate Ent ered: 03/29/2022 2125 ETDate Reported: 03/30 1509 ETRte: 00Date C reated and Stored 03/30/22 1514 ET Final Report Page 1of 1 [id number] 07:01:00 Test Item Value Reference Range Interpretation Comments CREATININE (test code = CREAT) 0.56 mg/dL 0.44-1.03 N [id number] 06:29:00 Test Item Value Reference Range Interpretation Comments GLUBED (test code = GLUBED) 130 MG/DL 70-105 H [id number] 21:10:00 Test Item Value Reference Range Interpretation Comments GLUBED (test code = GLUBED) 99 MG/DL 70-105 N [id number] 16:24:00 Test Item Value Reference Range Interpretation Comments GLUBED (test code = GLUBED) 104 MG/DL 70-105 N [id number] 11:40:00 Test Item Value Reference Range Interpretation Comments GLUBED (test code = GLUBED) 110 MG/DL 70-105 H COMPREHENSIVE METABOLIC [id number] 07:12:00 Test Item Value Reference Range Interpretation [...] 42-121 N PHOSPHATASE (test code = ALKP) [id number] 06:23:00 Test Item Value Reference Range Interpretation Comments GLUBED (test code = GLUBED) 122 MG/DL 70-105 H [id number] 21:53:00 Test Item Value Reference Range Interpretation Comments GLUBED (test code = GLUBED) 112 MG/DL 70-105 H [id number] 15:53:00 Test Item Value Reference Range Interpretation Comments GLUBED (test code = GLUBED) 117 MG/DL 70-105 H PATHOLOGY REVIEW [id number] 11:04:00 Test Item Value Reference Range Interpretation Comments NAME OF TEST PROCALCITONIN (test code = NAMEMISC) GENETIC TEST NO (test code = GENETIC2) PERFORM SITE LCA (test code = LABPERS) TEST COST (test 0.00 code = LABCOST) LIST CPT CODES 000 (test code = MISCCPT) APPROVAL (test YES code = APPROVAL) PATH REVIEW Discussed with Dr. MARES (test William Desai atient code = PATH is spiking feve rs. REVIEW COM) Dr. Inga wong els Procalcitonin i s necessary for currentpatient care. Procalcitonin o rder is approved. SIGNATURE (test Kale Jewell, code = M.DRy SIGNATURE) [id number] 10:36:00 Test Item Value Reference Range Interpretation Comments GLUBED (test code = GLUBED) 100 MG/DL 70-105 N COMPREHENSIVE METABOLIC [id number] 07:52:00 Test Item Value Reference Range Interpretation [...] PHOSPHATASE (test code = ALKP) CBC W/AUTO [id number] 07:38:00 Test Item Value Reference Range Interpretation [...] = BA#) 0.0 x10 3/uL 0.0-0.1 N [id number] 06:28:00 Test Item Value Reference Range Interpretation Comments GLUBED (test code = GLUBED) 106 MG/DL 70-105 H [id number] 21:04:00 Test Item Value Reference Range Interpretation Comments GLUBED (test code = GLUBED) 122 MG/DL 70-105 H [id number] 15:47:00 Test Item Value Reference Range Interpretation Comments GLUBED (test code = GLUBED) 114 MG/DL 70-105 H MISCELLANEOUS LAB SEND [id number] 11:46:00 Test Item Value Reference Range Interpretation Comments MISCELLANEOUS LAB SEND PATHOLOGY REVIEW REQ OUT (test code = MISCLABSO) Test: Procalcitonin, serumOrdering physician contact information: Dr Xiong [phone] test: [id number] 11:03:00 Test Item Value Reference Range Interpretation Comments GLUBED (test code = GLUBED) 120 MG/DL 70-105 H COMPREHENSIVE METABOLIC [id number] 10:43:00 Test Item Value Reference Range Interpretation [...] N PHOSPHATASE (test code = ALKP) VANCOMYCIN [id number] 10:42:00 Test Item Value Reference Range Interpretation Comments VANCOMYCIN TROUGH 16.2 ug/ml 10.0-20.0 N Please ref er to (test code = VANCT) Medicati on Administration Record (MAR) forlast d ose date and time. [id number] 05:41:00 Test Item Value Reference Range Interpretation Comments GLUBED (test code = GLUBED) 121 MG/DL 70-105 H [id number] 03:50:00 Test Item Value Reference Range Interpretation Comments GLUBED (test code = GLUBED) 96 MG/DL 70-105 N [id number] 20:35:00 Test Item Value Reference Range Interpretation Comments GLUBED (test code = GLUBED) 127 MG/DL 70-105 H [id number] 16:32:00 Test Item Value Reference Range Interpretation Comments GLUBED (test code = GLUBED) 116 MG/DL 70-105 H [id number] 11:29:00 Test Item Value Reference Range Interpretation Comments GLUBED (test code = GLUBED) 114 MG/DL 70-105 H URINALYSIS [id number] 08:26:00 Test Item Value Reference Range Interpretation [...] CRYSTALS (test code = CAOXU) CBC W/AUTO [id number] 07:32:00 Test Item Value Reference Range Interpretation [...] 0.0 x10 3/uL 0.0-0.1 N RECOLLECT - [id number] 06:14:00 Test Item Value Reference Range Interpretation Comments GLUBED (test code = GLUBED) 126 MG/DL 70-105 H COMPREHENSIVE METABOLIC [id number] 05:55:00 Test Item Value Reference Range Interpretation [...] 42-121 N PHOSPHATASE (test code = ALKP) [id number] 20:47:00 Test Item Value Reference Range Interpretation Comments GLUBED (test code = GLUBED) 127 MG/DL 70-105 H [id number] 15:48:00 Test Item Value Reference Range Interpretation Comments GLUBED (test code = GLUBED) 138 MG/DL 70-105 H - XR CHEST 1 [id number] 12:31:00 [facility] : 1975 Sex: FPatient Name: JERI VILLALOBOS Unit No: [id number] EXAMS: CPT: [id number] XR CHEST 1 V 50015 CHEST, 1 VIEW:HISTORY: f/u. Fevers COMPARISON: March [...] (1234) BATCH NO: N/A Name: JERI VILLALOBOS [facility] Phys: VERENICE.Salas Costa [address] [facility] : 1975 Age: 46 Sex: F [place], [place] [address] Loc: N.0385 1 Exam Date: 03/26/2022 Status: ADM IN PH: FAX: PAGE 1 Signed [id number] 11:50:00 Test Item Value Reference Range Interpretation Comments GLUBED (test code = GLUBED) 165 MG/DL 70-105 H [id number] 06:35:00 Test Item Value Reference Range Interpretation Comments GLUBED (test code = GLUBED) 106 MG/DL 70-105 H BASIC METABOLIC [id number] 06:29:00 Test Item Value Reference Range Interpretation [...] mg/dL 8.5-10.5 N = CA) CBC W/AUTO [id number] 06:28:00 Test Item Value Reference Range Interpretation [...] = BA#) 0.0 x10 3/uL 0.0-0.1 N [id number] 20:02:00 Test Item Value Reference Range Interpretation Comments GLUBED (test code = GLUBED) 101 MG/DL 70-105 N [id number] 16:31:00 Test Item Value Reference Range Interpretation Comments GLUBED (test code = GLUBED) 141 MG/DL 70-105 H [id number] 11:51:00 Test Item Value Reference Range Interpretation Comments GLUBED (test code = GLUBED) 155 MG/DL 70-105 H [id number] 06:28:00 Test Item Value Reference Range Interpretation Comments GLUBED (test code = GLUBED) 138 MG/DL 70-105 H CBC W/AUTO [id number] 06:20:00 Test Item Value Reference Range Interpretation [...] 0.0 x10 3/uL 0.0-0.1 N BASIC METABOLIC [id number] 06:11:00 Test Item Value Reference Range Interpretation [...] code 8.8 mg/dL 8.5-10.5 N = CA) [id number] 20:18:00 Test Item Value Reference Range Interpretation Comments GLUBED (test code = GLUBED) 156 MG/DL 70-105 H [id number] 16:21:00 Test Item Value Reference Range Interpretation Comments GLUBED (test code = GLUBED) 120 MG/DL 70-105 H [id number] 11:13:00 Test Item Value Reference Range Interpretation Comments GLUBED (test code = GLUBED) 151 MG/DL 70-105 H BASIC METABOLIC [id number] 07:25:00 Test Item Value Reference Range Interpretation [...] mg/dL 8.5-10.5 N = CA) CBC W/AUTO [id number] 07:09:00 Test Item Value Reference Range Interpretation [...] = BA#) 0.0 x10 3/uL 0.0-0.1 N [id number] 06:45:00 Test Item Value Reference Range Interpretation Comments GLUBED (test code = GLUBED) 139 MG/DL 70-105 H [id number] 21:24:00 Test Item Value Reference Range Interpretation Comments GLUBED (test code = GLUBED) 118 MG/DL 70-105 H [id number] 16:08:00 Test Item Value Reference Range Interpretation Comments GLUBED (test code = GLUBED) 169 MG/DL 70-105 H - XR CHEST 1 [id number] 14:06:00 [facility] : 1975 Sex: FPatient Name: JERI VILLALOBOS Unit No: [id number] EXAMS: CPT: [id number] XR CHEST 1 V 93337 XR CHEST 1 VIEW HISTORY: tachycardia COMPARISON: 03/12/2022. FINDINGS: Cardiac silhouette is normal size. Pulmonaryvasculature is within normal limits. Mild haziness seen in the lung bases, particularly on the left.No large effusion seen. No pneumothorax. IMPRESSION: Bibasilar haziness particularly on the left similar to prior study. at 1406 Reported and signed by: Anni Haas MD CC: Sally Garrison MD; Manuel Nahum Nesbittqi Technologist: Galdino Deleon Time: DAP (Gy m2): Air Kerma (mGy): Trscr Dt/Tm: 03/23/2022 (1406) by:[email or web address] Orig Print D/T: S: 03/23/2022 (7612) BATCH NO: N/A Name: JERI VILLALOBOS [facility] Phys: OLUOL02 - Kentrell Garrison,Sally B [address] : 1975 Age: 46 Sex: F [place] [address] Loc: N.0385 1 Exam Date: 03/23/2022 Status: ADM IN PH: FAX: PAGE 1 Signed [id number] 13:49:00 Test Item Value Reference Range Interpretation Comments MAGNESIUM (test code = MAG) 1.8 mg/dl 1.8-2.5 N [id number] 13:49:00 Test Item Value Reference Range Interpretation Comments TROPONIN-I (test code = TROPI) <0.020 ng/mL 0.000-0.034 N [id number] 12:08:00 Test Item Value Reference Range Interpretation Comments GLUBED (test code = GLUBED) 143 MG/DL 70-105 H [id number] 05:56:00 Test Item Value Reference Range Interpretation Comments GLUBED (test code = GLUBED) 142 MG/DL 70-105 H BASIC METABOLIC [id number] 05:52:00 Test Item Value Reference Range Interpretation [...] mg/dL 8.5-10.5 N = CA) CBC W/AUTO [id number] 05:50:00 Test Item Value Reference Range Interpretation [...] = BA#) 0.0 x10 3/uL 0.0-0.1 N [id number] 20:04:00 Test Item Value Reference Range Interpretation Comments GLUBED (test code = GLUBED) 114 MG/DL 70-105 H [id number] 16:03:00 Test Item Value Reference Range Interpretation Comments GLUBED (test code = GLUBED) 104 MG/DL 70-105 N [id number] 11:10:00 Test Item Value Reference Range Interpretation Comments GLUBED (test code = GLUBED) 129 MG/DL 70-105 H CBC W/AUTO [id number] 07:01:00 Test Item Value Reference Range Interpretation [...] = BA#) 0.0 x10 3/uL 0.0-0.1 N [id number] 06:53:00 Test Item Value Reference Range Interpretation Comments GLUBED (test code = GLUBED) 104 MG/DL 70-105 N BASIC METABOLIC [id number] 06:37:00 Test Item Value Reference Range Interpretation [...] code 8.5 mg/dL 8.5-10.5 N = CA) [id number] 20:39:00 Test Item Value Reference Range Interpretation Comments GLUBED (test code = GLUBED) 97 MG/DL 70-105 N [id number] 16:19:00 Test Item Value Reference Range Interpretation Comments GLUBED (test code = GLUBED) 104 MG/DL 70-105 N - CONT INJ GS/BURNS/JJ/[id number] 11:43:00 [facility] : 1975 Sex: FPatient Name: JERI VILLALOBOS Unit No: [id number] EXAMS: CPT: [id number] CONT INJ GS/BURNS/JJ/GJ 10091 EXAM: XR ABDOMEN CONTRAST INJECTION 2 VIEWS DATE: 03/21/2022 10:13 AM INDICATION: Tube study. COMPARISON: Prior study dated 03/20/2022. TECHNIQUE: Pre and postcontrast abdominal radiographs, before and after contrast injection through gastrostomy tube. FINDINGS: The initial seafood fisherman radiograph demonstrates gastrostomy tube in the left [...] BATCH NO: N/A Name: JERI VILLALOBOS [facility] Phys: [id number] - Archie Sunshine MD [address] : 1975 Age: 46 Sex: F [place], [place] [address] Loc: N.0385 1 Exam Date: 03/21/2022 Status: ADM IN PH: FAX: PAGE 1 Signed [id number] 11:36:00 Test Item Value Reference Range Interpretation Comments GLUBED (test code = GLUBED) 102 MG/DL 70-105 N BASIC METABOLIC [id number] 06:31:00 Test Item Value Reference Range Interpretation [...] code 8.6 mg/dL 8.5-10.5 N = CA) [id number] 06:29:00 Test Item Value Reference Range Interpretation Comments GLUBED (test code = GLUBED) 83 MG/DL 70-105 N CBC W/AUTO [id number] 06:02:00 Test Item Value Reference Range Interpretation [...] = BA#) 0.0 x10 3/uL 0.0-0.1 N [id number] 04:02:00 Test Item Value Reference Range Interpretation Comments GLUBED (test code = GLUBED) 88 MG/DL 70-105 N [id number] 21:27:00 Test Item Value Reference Range Interpretation Comments GLUBED (test code = GLUBED) 86 MG/DL 70-105 N [id number] 17:12:00 Test Item Value Reference Range Interpretation Comments GLUBED (test code = GLUBED) 80 MG/DL 70-105 N - CONT INJ GS/BURNS/JJ/[id number] 14:19:00 [facility] : 1975 Sex: FPatient Name: JERI VILLALOBOS Unit No: [id number] EXAMS: CPT: [id number] CONT INJ GS/BURNS/JJ/GJ 90429 EXAM:XR ABDOMEN 1 VIEW DATE: 03/20/2022 12:22 PM INDICATION: NG tube ADDITIONAL INFORMATION: None. COMPARISON: Abdominal radiograph on 03/11/2022. TECHNIQUE: Limited AP view of the abdomen for tube placementassessment. Contrast instilled through the PEG tube during the exam. Number of images: 1. FINDINGS: F eeding tube: Gastrostomy tube in expected position. Instillation of contrast reveals an intraluminal position without evidence of extravasation. Enteric suction tube: None. Other tubes, lines and hardware: None. Abdomen: There is a nonobstructive bowel gas pattern. IMPRESSION: Gastrostomy tube in adequate position with no extravasation identified. Nonobstructive bowel gas pattern. ElectronicallySigned by Yung Abel MD on 03/20/2022 at 1416 Reported and signed by: Yung Abel MD CC: Manuel Stewart DO; Archie Sunshine MD Technologist: Oly Deleon Time: DAP (Gy m2): Air Kerma (mGy): TrscrDt/Tm: 03/20/2022 (3376) by:[email or web address] Orig Print D/T: S: 03/20/2022 (1423) BATCH NO: N/A Name: JERI VILLALOBOS [facility] Phys: CAESARGRArchie Llamas MD [address] : 1975 Age: 46 Sex: F [place], [place] [address] Loc: N.0385 1 Exam Date: 03/20/2022 Status: ADM IN PH: FAX: PAGE 1 Signed Report [id number] 11:21:00 Test Item Value Reference Range Interpretation Comments GLUBED (test code = GLUBED) 100 MG/DL 70-105 N BASIC METABOLIC [id number] 09:13:00 Test Item Value Reference Range Interpretation [...] code 8.8 mg/dL 8.5-10.5 N = CA) [id number] 09:13:00 Test Item Value Reference Range Interpretation Comments PHOSPHOROUS (test code = PHOS) 3.5 mg/dl 2.5-4.6 N [id number] 09:13:00 Test Item Value Reference Range Interpretation Comments MAGNESIUM (test code = MAG) 2.1 mg/dl 1.8-2.5 N CBC W/AUTO [id number] 08:42:00 Test Item Value Reference Range Interpretation [...] = BA#) 0.0 x10 3/uL 0.0-0.1 N [id number] 06:38:00 Test Item Value Reference Range Interpretation Comments GLUBED (test code = GLUBED) 115 MG/DL 70-105 H [id number] 21:09:00 Test Item Value Reference Range Interpretation Comments GLUBED (test code = GLUBED) 115 MG/DL 70-105 H UR SODIUM [id number] 17:49:00 Test Item Value Reference Range Interpretation Comments UR SODIUM RANDOM 43 mmol/L No Normal R julia (test code = MACKENZIE) establishe d. UR CHLORIDE [id number] 17:49:00 Test Item Value Reference Range Interpretation Comments UR CHLORIDE RANDOM (test code = 22 mmol/L 15-300 N CLU) UR CREATININE [id number] 17:49:00 Test Item Value Reference Range Interpretation Comments UR CREATININE RANDOM (test code = 135 mg/dL 40-300 N CREATU) URINALYSIS [id number] 17:48:00 Test Item Value Reference Range Interpretation [...] NONE SEEN /HPF NONE SEEN = YEASTU) [id number] 16:41:00 Test Item Value Reference Range Interpretation Comments GLUBED (test code = GLUBED) 87 MG/DL 70-105 N - CT CHEST W/O [id number] 15:49:00 [facility] : 1975 Sex: FPatient Name: JERI VILLALOBOS Unit No: [id number] EXAMS: CPT: [id number] CT CHEST W/O CONTRAST 57583 TECHNIQUE: CT scan of the chest performed from the thoracic inlet through the upper abdomen without the administration of IV contrast. DLP: 409 mGy/cm. The study was performed with radiation dose optimization per ACR practice guidelines and fluid pump operator's recommendations which includes: automated exposure control, adjustment [...] CTDI: 11.16 DLP: 408.91 Trscr Dt/Tm: 03/19/2022 (4829) by:BasilHNNOrig Print D/T: S: 03/19/2022 (4290) BATCH NO: N/A Name: JERI VILLALOBOS [facility] Phys: Ruiz Wolfe MD [address] [facility] : 1975 Age: 46 Sex: F [place] [address] Acct No: [id number] Loc: N.0385 1 Exam Date: 03/19/2022 Status: ADM IN PH: FAX: PAGE 1 Signed [id number] 11:40:00 Test Item Value Reference Range Interpretation Comments GLUBED (test code = GLUBED) 138 MG/DL 70-105 H [id number] 05:46:00 Test Item Value Reference Range Interpretation Comments GLUBED (test code = GLUBED) 112 MG/DL 70-105 H BASIC METABOLIC [id number] 05:04:00 Test Item Value Reference Range Interpretation [...] mg/dL 8.5-10.5 N = CA) CBC W/AUTO [id number] 04:55:00 Test Item Value Reference Range Interpretation [...] = BA#) 0.0 x10 3/uL 0.0-0.1 N [id number] 20:55:00 Test Item Value Reference Range Interpretation Comments GLUBED (test code = GLUBED) 102 MG/DL 70-105 N [id number] 16:05:00 Test Item Value Reference Range Interpretation Comments GLUBED (test code = GLUBED) 95 MG/DL 70-105 N BASIC METABOLIC [id number] 07:53:00 Test Item Value Reference Range Interpretation [...] mg/dL 8.5-10.5 N = CA) CBC W/AUTO [id number] 07:36:00 Test Item Value Reference Range Interpretation [...] BA#) 0.0 x10 3/uL 0.0-0.1 N DIFFERENTIAL [id number] 07:36:00 Test Item Value Reference Range Interpretation Comments PLATELET MORPHOLOGY (test code = Normal NORMAL PLTMORPH) [id number] 06:50:00 Test Item Value Reference Range Interpretation Comments GLUBED (test code = GLUBED) 114 MG/DL 70-105 H [id number] 00:10:00 Test Item Value Reference Range Interpretation Comments GLUBED (test code = GLUBED) 117 MG/DL 70-105 H BASIC METABOLIC [id number] 13:11:00 Test Item Value Reference Range Interpretation [...] mg/dL 8.5-10.5 N = CA) CBC W/AUTO [id number] 13:02:00 Test Item Value Reference Range Interpretation [...] = BA#) 0.1 x10 3/uL 0.0-0.1 N [id number] 05:54:00 Test Item Value Reference Range Interpretation Comments GLUBED (test code = GLUBED) 130 MG/DL 70-105 H [id number] 01:01:00 Test Item Value Reference Range Interpretation Comments GLUBED (test code = GLUBED) 135 MG/DL 70-105 H [id number] 18:22:00 Test Item Value Reference Range Interpretation Comments GLUBED (test code = GLUBED) 121 MG/DL 70-105 H [id number] 12:16:00 Test Item Value Reference Range Interpretation Comments GLUBED (test code = GLUBED) 118 MG/DL 70-105 H [id number] 06:15:00 Test Item Value Reference Range Interpretation Comments GLUBED (test code = GLUBED) 117 MG/DL 70-105 H [id number] 20:47:00 Test Item Value Reference Range Interpretation Comments GLUBED (test code = GLUBED) 107 MG/DL 70-105 H [id number] 15:49:00 Test Item Value Reference Range Interpretation Comments GLUBED (test code = GLUBED) 118 MG/DL 70-105 H [id number] 13:23:00 Test Item Value Reference Range Interpretation Comments GLUBED (test code = GLUBED) 135 MG/DL 70-105 H [id number] 08:39:00 Test Item Value Reference Range Interpretation Comments GLUBED (test code = GLUBED) 120 MG/DL 70-105 H BASIC METABOLIC [id number] 07:52:00 Test Item Value Reference Range Interpretation [...] mg/dL 8.5-10.5 N = CA) CBC W/AUTO [id number] 07:37:00 Test Item Value Reference Range Interpretation [...] = BA#) 0.1 x10 3/uL 0.0-0.1 N [id number] 06:16:00 Test Item Value Reference Range Interpretation Comments GLUBED (test code = GLUBED) 128 MG/DL 70-105 H [id number] 20:22:00 Test Item Value Reference Range Interpretation Comments GLUBED (test code = GLUBED) 120 MG/DL 70-105 H [id number] 14:13:00 Test Item Value Reference Range Interpretation Comments GLUBED (test code = GLUBED) 136 MG/DL 70-105 H BASIC METABOLIC [id number] 09:20:00 Test Item Value Reference Range Interpretation [...] mg/dL 8.5-10.5 N = CA) CBC W/AUTO [id number] 08:59:00 Test Item Value Reference Range Interpretation [...] = BA#) 0.0 x10 3/uL 0.0-0.1 N [id number] 05:46:00 Test Item Value Reference Range Interpretation Comments GLUBED (test code = GLUBED) 149 MG/DL 70-105 H [id number] 20:39:00 Test Item Value Reference Range Interpretation Comments GLUBED (test code = GLUBED) 115 MG/DL 70-105 H [id number] 17:26:00 Test Item Value Reference Range Interpretation Comments GLUBED (test code = GLUBED) 125 MG/DL 70-105 H BASIC METABOLIC [id number] 12:37:00 Test Item Value Reference Range Interpretation [...] mg/dL 8.5-10.5 N = CA) CBC W/AUTO [id number] 12:25:00 Test Item Value Reference Range Interpretation [...] 0.0 x10 3/uL 0.0-0.1 N Spec Comments: DURALUMIN MECHANIC [id number] 12:16:00 Test Item Value Reference Range Interpretation Comments GLUBED (test code = GLUBED) 120 MG/DL 70-105 H LACTIC [id number] 11:58:00 Test Item Value Reference Range Interpretation Comments LACTIC ACID (test code = LACT) 1.5 mmol/L 0.5-2.0 N [id number] 06:32:00 Test Item Value Reference Range Interpretation Comments GLUBED (test code = GLUBED) 142 MG/DL 70-105 H [id number] 04:46:00 Test Item Value Reference Range Interpretation Comments GLUBED (test code = GLUBED) 133 MG/DL 70-105 H [id number] 21:12:00 Test Item Value Reference Range Interpretation Comments GLUBED (test code = GLUBED) 143 MG/DL 70-105 H [id number] 16:54:00 Test Item Value Reference Range Interpretation Comments GLUBED (test code = GLUBED) 118 MG/DL 70-105 H [id number] 12:48:00 Test Item Value Reference Range Interpretation Comments GLUBED (test code = GLUBED) 137 MG/DL 70-105 H - XR CHEST 1 [id number] 07:19:00 [facility] : 1975 Sex: FPatient Name: JERI VILLALOBOS Unit No: [id number] EXAMS: CPT: [id number] XR CHEST 1 V 82101 Comparison study: 03/09/2022 History: fu pneumonia CHEST [...] 03/12/2022 (718) by:[email or web address] Orig Print D/T:S: 03/12/2022 (07) BATCH NO: N/A Name: JERI VILLALOBOS [facility] Phys: Re Wolfe MD [address] : 1975 Age: 46 Sex: F [place] [address] Loc: N.0385 1 Exam Date: 03/12/2022 Status: ADM IN PH: FAX: PAGE 1 Signed ReportCBC W/AUTO [id number] 07:06:00 Test Item Value Reference Range Interpretation [...] (test code = ADEQUATE ADEQUATE PLTEST) DIFFERENTIAL [id number] 07:06:00 Test Item Value Reference Range Interpretation Comments PLATELET MORPHOLOGY (test code = Normal NORMAL PLTMORPH) BASIC METABOLIC [id number] 06:45:00 Test Item Value Reference Range Interpretation [...] code 9.9 mg/dL 8.5-10.5 N = CA) [id number] 06:45:00 Test Item Value Reference Range Interpretation Comments MAGNESIUM (test code = MAG) 2.4 mg/dl 1.8-2.5 N [id number] 06:32:00 Test Item Value Reference Range Interpretation Comments GLUBED (test code = GLUBED) 125 MG/DL 70-105 H [id number] 21:02:00 Test Item Value Reference Range Interpretation Comments GLUBED (test code = GLUBED) 125 MG/DL 70-105 H [id number] 17:37:00 Test Item Value Reference Range Interpretation Comments GLUBED (test code = GLUBED) 119 MG/DL 70-105 H - XR ABDOMEN [id number] 12:22:00 [facility] : 1975 Sex: FPatient Name: JERI VILLALOBOS Unit No: [id number] EXAMS: CPT: [id number] XR ABDOMEN 1V 16993 ABDOMEN RADIOGRAPH, 1 VIEW: Supine. HISTORY: DISLODGED [...] Bryant DO; Manuel Rose DO Technologist: Papito Grider Fluoro Time: DAP (Gy m2): Air Kerma (mGy): Trscr Dt/Tm: 03/11/2022 (122) by:[email or web address] Orig Print D/T: S: 03/11/2022 (1225) BATCH NO:N/A Name: JERI VILLALOBOS [facility] Phys: ILOSH - Ilo,Brittney O DO [address] : 1975 Age: 46 Sex: F [place] [address] Loc: N.0385 1 Exam Date: 03/11/2022 Status: ADM IN PH: FAX: PAGE 1 Signed [id number] 12:21:00 Test Item Value Reference Range Interpretation Comments GLUBED (test code = GLUBED) 124 MG/DL 70-105 H [id number] 04:22:00 Test Item Value Reference Range Interpretation Comments GLUBED (test code = GLUBED) 109 MG/DL 70-105 H [id number] 22:04:00 Test Item Value Reference Range Interpretation Comments GLUBED (test code = GLUBED) 117 MG/DL 70-105 H [id number] 15:19:00 Test Item Value Reference Range Interpretation Comments GLUBED (test code = GLUBED) 126 MG/DL 70-105 H [id number] 10:52:00 Test Item Value Reference Range Interpretation Comments GLUBED (test code = GLUBED) 141 MG/DL 70-105 H [id number] 05:53:00 Test Item Value Reference Range Interpretation Comments GLUBED (test code = GLUBED) 151 MG/DL 70-105 H [id number] 21:42:00 Test Item Value Reference Range Interpretation Comments GLUBED (test code = GLUBED) 131 MG/DL 70-105 H [id number] 15:26:00 Test Item Value Reference Range Interpretation Comments GLUBED (test code = GLUBED) 136 MG/DL 70-105 H [id number] 11:43:00 Test Item Value Reference Range Interpretation Comments GLUBED (test code = GLUBED) 137 MG/DL 70-105 H - XR CHEST 1 [id number] 07:21:00 [facility] 1975 Sex: FPatient Name: JERI VILLALOBOS Unit No: [id number] EXAMS: CPT: [id number] XR CHEST 1 V 50365 CHEST 1 VIEW:COMPARISON: 03/04/2022 CLINICAL HISTORY: Follow-up [...] Vaughn MD; Manuel Rose DO Technologist: Virgilio stone Time: DAP (Gy m2): Air Kerma (mGy): Trscr Dt/Tm: 03/09/2022 (720) by:Lyly Orig Print D/T: S: 03/09/2022 (0724) BATCH NO: N/A Name: JERI VILLALOBOS [facility] Phys: Ruiz Wolfe MD [address] [facility] : 1975 Age: 46 Sex: F [place], [place] [address] Loc: N.0385 1 Exam Date: 03/09/2022 Status: ADM IN PH: FAX: PAGE 1 Signed [id number] 06:09:00 Test Item Value Reference Range Interpretation Comments GLUBED (test code = GLUBED) 160 MG/DL 70-105 H [id number] 20:33:00 Test Item Value Reference Range Interpretation Comments GLUBED (test code = GLUBED) 115 MG/DL 70-105 H [id number] 15:34:00 Test Item Value Reference Range Interpretation Comments GLUBED (test code = GLUBED) 99 MG/DL 70-105 N [id number] 12:13:00 Test Item Value Reference Range Interpretation Comments GLUBED (test code = GLUBED) 112 MG/DL 70-105 H CBC W/AUTO [id number] 06:41:00 Test Item Value Reference Range Interpretation [...] 0.1 x10 3/uL 0.0-0.1 N BASIC METABOLIC [id number] 06:23:00 Test Item Value Reference Range Interpretation [...] code 9.4 mg/dL 8.5-10.5 N = CA) [id number] 06:16:00 Test Item Value Reference Range Interpretation Comments GLUBED (test code = GLUBED) 114 MG/DL 70-105 H [id number] 20:48:00 Test Item Value Reference Range Interpretation Comments GLUBED (test code = GLUBED) 119 MG/DL 70-105 H [id number] 16:26:00 Test Item Value Reference Range Interpretation Comments GLUBED (test code = GLUBED) 132 MG/DL 70-105 H [id number] 13:48:00 Test Item Value Reference Range Interpretation Comments GLUBED (test code = GLUBED) 126 MG/DL 70-105 H CBC W/AUTO [id number] 10:41:00 Test Item Value Reference Range Interpretation [...] BA#) 0.0 x10 3/uL 0.0-0.1 N DIFFERENTIAL [id number] 10:41:00 Test Item Value Reference Range Interpretation Comments PLATELET MORPHOLOGY (test code = Normal NORMAL PLTMORPH) BASIC METABOLIC [id number] 07:30:00 Test Item Value Reference Range Interpretation [...] code 8.7 mg/dL 8.5-10.5 N = CA) [id number] 05:19:00 Test Item Value Reference Range Interpretation Comments GLUBED (test code = GLUBED) 109 MG/DL 70-105 H [id number] 17:24:00 Test Item Value Reference Range Interpretation Comments GLUBED (test code = GLUBED) 118 MG/DL 70-105 H BASIC METABOLIC [id number] 09:47:00 Test Item Value Reference Range Interpretation [...] mg/dL 8.5-10.5 N = CA) CBC W/AUTO [id number] 09:00:00 Test Item Value Reference Range Interpretation [...] = BA#) 0.1 x10 3/uL 0.0-0.1 N [id number] 06:10:00 Test Item Value Reference Range Interpretation Comments GLUBED (test code = GLUBED) 118 MG/DL 70-105 H [id number] 01:06:00 Test Item Value Reference Range Interpretation Comments GLUBED (test code = GLUBED) 110 MG/DL 70-105 H [id number] 15:52:00 Test Item Value Reference Range Interpretation Comments GLUBED (test code = GLUBED) 121 MG/DL 70-105 H [id number] 11:55:00 Test Item Value Reference Range Interpretation Comments GLUBED (test code = GLUBED) 131 MG/DL 70-105 H [id number] 06:06:00 Test Item Value Reference Range Interpretation Comments GLUBED (test code = GLUBED) 119 MG/DL 70-105 H CBC W/AUTO [id number] 05:35:00 Test Item Value Reference Range Interpretation [...] 0.0 x10 3/uL 0.0-0.1 N BASIC METABOLIC [id number] 05:20:00 Test Item Value Reference Range Interpretation [...] code 8.5 mg/dL 8.5-10.5 N = CA) [id number] 20:55:00 Test Item Value Reference Range Interpretation Comments GLUBED (test code = GLUBED) 100 MG/DL 70-105 N [id number] 16:42:00 Test Item Value Reference Range Interpretation Comments GLUBED (test code = GLUBED) 117 MG/DL 70-105 H [id number] 11:49:00 Test Item Value Reference Range Interpretation Comments GLUBED (test code = GLUBED) 140 MG/DL 70-105 H - XR CHEST 1 [id number] 08:08:00 [facility] : 1975 Sex: FPatient Name: JERI VILLALOBOS Unit No: [id number] EXAMS: CPT: [id number] XR CHEST 1 V 27502 COMPARISON: 03/01/2022 FINDINGS: Atelectasis or pneumonia has [...] Air Kerma (mGy): Trscr Dt/Tm: 03/04/2022 (0808) by:[email or web address] Orig Print D/T: S: 03/04/2022 (0811) BATCH NO: N/A Name: JERI VILLALOBOS [facility] Phys: Ruiz Wolfe MD [address] : 1975 Age: 46 Sex: F [place], [place] [address] Loc: N.0385 1 Exam Date: 03/04/2022 Status: ADM IN PH: FAX: PAGE 1 Signed [id number] 05:53:00 Test Item Value Reference Range Interpretation Comments GLUBED (test code = GLUBED) 89 MG/DL 70-105 N [id number] 20:59:00 Test Item Value Reference Range Interpretation Comments GLUBED (test code = GLUBED) 131 MG/DL 70-105 H [id number] 15:42:00 Test Item Value Reference Range Interpretation Comments GLUBED (test code = GLUBED) 112 MG/DL 70-105 H [id number] 12:47:00 Test Item Value Reference Range Interpretation Comments GLUBED (test code = GLUBED) 128 MG/DL 70-105 H BASIC METABOLIC [id number] 08:10:00 Test Item Value Reference Range Interpretation [...] mg/dL 8.5-10.5 N = CA) CBC W/AUTO [id number] 08:09:00 Test Item Value Reference Range Interpretation [...] = BA#) 0.0 x10 3/uL 0.0-0.1 N [id number] 06:19:00 Test Item Value Reference Range Interpretation Comments GLUBED (test code = GLUBED) 111 MG/DL 70-105 H [id number] 20:56:00 Test Item Value Reference Range Interpretation Comments GLUBED (test code = GLUBED) 138 MG/DL 70-105 H [id number] 15:58:00 Test Item Value Reference Range Interpretation Comments GLUBED (test code = GLUBED) 137 MG/DL 70-105 H [id number] 12:19:00 Test Item Value Reference Range Interpretation Comments GLUBED (test code = GLUBED) 149 MG/DL 70-105 H [id number] 05:55:00 Test Item Value Reference Range Interpretation Comments GLUBED (test code = GLUBED) 114 MG/DL 70-105 H [id number] 21:40:00 Test Item Value Reference Range Interpretation Comments GLUBED (test code = GLUBED) 101 MG/DL 70-105 N [id number] 16:13:00 Test Item Value Reference Range Interpretation Comments GLUBED (test code = GLUBED) 126 MG/DL 70-105 H [id number] 11:40:00 Test Item Value Reference Range Interpretation Comments GLUBED (test code = GLUBED) 114 MG/DL 70-105 H - XR CHEST 1 [id number] 08:41:00 [facility] : 1975 Sex: FPatient Name: JERI VILLALOBOS Unit No: [id number] EXAMS: CPT: [id number] XR CHEST 1 V 05818 EXAM: XR CHEST1 VIEW DATE: 03/01/2022 5:00 [...] (0844) BATCH NO: N/A Name: JERI VILLALOBOS [facility] Phys: Ruiz Wolfe MD [address] [facility] : 1975 Age: 46 Sex: F [place], [place] [address] Loc: N.0385 1 Exam Date: 03/01/2022 Status: ADM IN PH: FAX: PAGE 1 Signed ReportBASIC METABOLIC [id number] 07:31:00 Test Item Value Reference Range Interpretation [...] mg/dL 8.5-10.5 N = CA) CBC W/AUTO [id number] 07:11:00 Test Item Value Reference Range Interpretation [...] = BA#) 0.0 x10 3/uL 0.0-0.1 N [id number] 06:14:00 Test Item Value Reference Range Interpretation Comments GLUBED (test code = GLUBED) 116 MG/DL 70-105 H [id number] 20:06:00 Test Item Value Reference Range Interpretation Comments GLUBED (test code = GLUBED) 103 MG/DL 70-105 N [id number] 17:02:00 Test Item Value Reference Range Interpretation Comments GLUBED (test code = GLUBED) 95 MG/DL 70-105 N [id number] 11:29:00 Test Item Value Reference Range Interpretation Comments GLUBED (test code = GLUBED) 137 MG/DL 70-105 H BASIC METABOLIC [id number] 07:06:00 Test Item Value Reference Range Interpretation [...] mg/dL 8.5-10.5 N = CA) CBC W/AUTO [id number] 06:47:00 Test Item Value Reference Range Interpretation [...] = BA#) 0.0 x10 3/uL 0.0-0.1 N [id number] 06:12:00 Test Item Value Reference Range Interpretation Comments GLUBED (test code = GLUBED) 135 MG/DL 70-105 H [id number] 00:40:00 Test Item Value Reference Range Interpretation Comments GLUBED (test code = GLUBED) 105 MG/DL 70-105 N [id number] 21:06:00 Test Item Value Reference Range Interpretation Comments GLUBED (test code = GLUBED) 103 MG/DL 70-105 N CBC W/AUTO [id number] 11:26:00 Test Item Value Reference Range Interpretation [...] = EO#) x10 3/uL 0.0-0.5 RECOLLECT CLOTTEDWBC [id number] 11:26:00 Test Item Value Reference Range Interpretation [...] NONE SEEN A POLC) RECOLLECT CLOTTEDCBC W/AUTO [id number] 08:54:00 Test Item Value Reference Range Interpretation Comments WHITE BLOOD CELL Test not 3.2-11.5 N Previously (test code = WBC) performed x10 reported result: 3/uL 10.2 x10\S\3/uLEdite d by: [id number] on 02/27/22:52~~ Corrected Repor t ~~Reason (required):CLOT TE D RED BLOOD CELL (test Test not 3.70-5.10 L Previou sly code = RBC) performed reported result : x10(6)/m 3.59 x10(6)/mEdited by: [id number] on 02/27/22:851~~ Corrected Repor t ~~Reason (required):CLOT TE D HEMOGLOBIN (test code Test not 12.0-15.0 L Previo usly = HGB) performed g/dL reported resu lt: 10.3 g/dLEdited by: [id number] on 02/27/22:851~~ Corrected Repor t ~~Reason (required):CLOT TE D HEMATOCRIT (test code Test not 35.7-44.8 L Previo usly = HCT) performed % reported result : 32.5 %Edited by : [id number] on 02/27/22:852~~ Corrected Repor t ~~Reason (required):CLOT TE D MEAN CELL VOLUME Test not 80-100 N Previously (test code = MCV) performed fL reported r esult: 91 fLEdited by: [id number] on 02/27/22:852~~ Corrected Repor t ~~Reason (required):CLOT TE D MEAN CELL HGB (test Test not 26.2-33.8 N Previous ly code = MCH) performed pg reported result : 28.7 pgEdited b y: [id number] on 02/27/22:852~~ Corrected Repor t ~~Reason (required):CLOT TE D MEAN CELL HGB Test not 30.0-34.0 N Previously CONCENTRATION (test performed g/dL report ed result: code = MCHC) 31.7 g/dLEdited by: [id number] on 02/27/22:0853~~ Corrected Repor t ~~Reason (required):CLOT TE D RED CELL DISTRIBUTION Test not 11.3-14.5 WIDTH (test code = performed % RDW) PLATELET COUNT (test Test not 130-408 code = PLT) performed x10 3/uL MEAN PLATELET VOLUME Test not 8.6-12.6 N Previou sly (test code = MPV) performed fL reported r esult: 11.6 fLEdited b y: [id number] on 02/27/22:0854~~ Corrected Repor t ~~Reason (required):CLOT [...] (test code = PLTEST) performed BASIC METABOLIC [id number] 08:53:00 Test Item Value Reference Range Interpretation [...] code 8.6 mg/dL 8.5-10.5 N = CA) [id number] 06:09:00 Test Item Value Reference Range Interpretation Comments GLUBED (test code = GLUBED) 127 MG/DL 70-105 H [id number] 20:53:00 Test Item Value Reference Range Interpretation Comments GLUBED (test code = GLUBED) 117 MG/DL 70-105 H [id number] 17:43:00 Test Item Value Reference Range Interpretation Comments GLUBED (test code = GLUBED) 92 MG/DL 70-105 N [id number] 12:05:00 Test Item Value Reference Range Interpretation Comments GLUBED (test code = GLUBED) 132 MG/DL 70-105 H BASIC METABOLIC [id number] 10:55:00 Test Item Value Reference Range Interpretation [...] mg/dL 8.5-10.5 L = CA) CBC W/AUTO [id number] 10:42:00 Test Item Value Reference Range Interpretation [...] = BA#) 0.1 x10 3/uL 0.0-0.1 N [id number] 06:15:00 Test Item Value Reference Range Interpretation Comments GLUBED (test code = GLUBED) 115 MG/DL 70-105 H [id number] 03:49:00 Test Item Value Reference Range Interpretation Comments CREATININE (test code = CREAT) 0.61 mg/dL 0.44-1.03 N - DUP VEIN [id number] 23:43:00 [facility] : 1975 Sex: FPatient Name: JERI VILLALOBOS Unit No: [id number] EXAMS: CPT: [id number] DUP VEIN ARTEMIO 22900 BILATERAL LOWER EXTREMITY VENOUS DOPPLER AND COLOR [...] of deep vein thrombosis. This study is perfo rmed to evaluate the patency of the deep veins of the right and left lower extremities. information technology technician: Wilman Vasquez RVT TECHNICAL NOTES: 1. [...] bilateral superficial veins were evaluated on this study.COMPARISON STUDY: No prior studies are available. FINDINGS: [...] of the right or left lower extremity. ElectronicallySigned by LISANDRA PADRON MD on 02/25/2022 at 2343 Reported and signed by: LISANDRA PADRON MD Name: JERI VILLALOBOS [facility] Phys: SIDFA. - [place],Manuel A D [address] [facility] : 1975 Age: 46 Sex: F [place] [address] Loc: N.0385 1 Exam Date: 02/24/2022 Status: ADM IN PH: FAX: PAGE 1 Signed Report (CONTINUED) Patient Name: FABI,PIA N Unit No: [id number] EXAMS:CPT: [id number] DUP VEIN ARTEMIO 38028 (Continued) CC: Manuel Rose DO Technologist: Wilman Stubbs Probe: Mj Dt/Tm: 02/25/2022 (234) by:Basil Orig Print D/T: S: 02/25/2022 (2345) BATCH NO: N/A Name: JERI VILLALOBOS [facility] Phys: SIDFA.01 - [place],Manuel A D [address] : 1975 Age: 46 Sex: F [place] [address] Loc: N.0385 1 Exam Date: 02/24/2022 Status: ADM IN PH: FAX: PAGE 2 Signed [id number] 20:34:00 Test Item Value Reference Range Interpretation Comments GLUBED (test code = GLUBED) 128 MG/DL 70-105 H [id number] 16:31:00 Test Item Value Reference Range Interpretation Comments GLUBED (test code = GLUBED) 116 MG/DL 70-105 H [id number] 11:44:00 Test Item Value Reference Range Interpretation Comments GLUBED (test code = GLUBED) 113 MG/DL 70-105 H - CT CHEST W/O [id number] 11:33:00 [facility] : 1975 Sex: FPatient Name: JERI VILLALOBOS Unit No: [id number] EXAMS: CPT: [id number] CT CHEST W/O CONTRAST 08270 EXAM: CT CHEST WITHOUT CONTRAST DATE: 02/25/2022 [...] IV contrast: None. DLP (mGy-cm): 487.09 FINDINGS: Traffic Personnel Supervisor: Noncontributory. Lines, tubes and hardware: A [...] spaces are otherwise preserved. Name: JERI VILLALOBOS [facility] Phys: HETALFA. - Manuel Rose [address] [facility] : 1975 Age: 46 Sex: F [place], [place] [address] Loc: N.0385 1 Exam Date: 02/25/2022 Status: ADM IN PH: FAX: PAGE 1 Signed Report (CONTINUED) Patient Name: JERI VILLALOBOS Unit No: [id number] EXAMS: CPT: [id number] CT CHEST W/O CONTRAST 81008 (Continued) Soft tissues: Artemio ateral breast implants are seen. IMPRESSION: Extensive opacities in the majority of the left lower lobe with multiple air bronchograms, consistent with pneumonia. Dependent opacities in the right lowerlobe represent atelectasis and/or consolidation. at 1133 Reported and signed by: Yung Abel MD CC: Manuel Rose DO Technologist: Suni Velazquez CTDI: 12.60 DLP: 487.09 Trscr Dt/Tm: 02/25/2022 (1133) by:[email or web address] Orig Print D/T: S: 02/25/2022 (1136) BATCH NO: N/A Name: MIRELA VILLALOBOSNahum Solitario [facility] Phys: HETALFA. - Manuel Rose D [address] : 1975 Age: 46 Sex: F [place] [address] Loc: N.0385 1Exam Date: 02/25/2022 Status: ADM IN PH: FAX: PAGE 2 Signed Report - DUP VEIN [id number] 11:14:00 [facility] : 1975 Sex: FPatient Name: JERI VILLALOBOS Unit No: [id number] EXAMS: CPT: [id number] DUP VEIN ARTEMIO 61608 EXAM: US BILATERAL UPPER EXTREMITY VENOUS DOPPLER [...] by: Yung Abel MD Name: JERI VILLALOBOS [facility] Phys: SIDFA. - [place],Manuel A D [address] : 1975 Age: 46 Sex: F [place] [address] Loc: N.0385 1 Exam Date: 02/25/2022 Status: ADM IN PH: FAX: PAGE 1 Signed Report (CONTINUED) Patient Name: JERI VILLALOBOS Unit No: [id number] EXAMS: CPT: [id number] DUP VEIN ARTEMIO 91478 (Continued) CC: Manuel Rose DO Technologist: Wilman Stubbs Probe: Trscr Dt/Tm: 02/25/2022 (1114) by:[email or web address] Orig Print D/T: S: 02/25/2022 (1117) BATCH NO: N/A Name: JERI VILLALOBOS [facility] Phys: SIDFA. - [place],Manuel A D [address] : 1975 Age: 46 Sex: F [place] [address] Loc: N.0385 1 Exam Date: 02/25/2022 Status: ADM IN PH: FAX: PAGE 2 Signed ReportBASIC METABOLIC [id number] 08:25:00 Test Item Value Reference Range Interpretation [...] mg/dL 8.5-10.5 L = CA) REDRAWCBC W/AUTO [id number] 07:31:00 Test Item Value Reference Range Interpretation [...] 10.4 fL 8.6-12.6 N = MPV) WBC [id number] 07:31:00 Test Item Value Reference Range Interpretation [...] 0.00 10 3/uL 0.00-0.00 N = OCT#) [id number] 05:47:00 Test Item Value Reference Range Interpretation Comments GLUBED (test code = GLUBED) 135 MG/DL 70-105 H [id number] 20:40:00 Test Item Value Reference Range Interpretation Comments GLUBED (test code = GLUBED) 121 MG/DL 70-105 H [id number] 17:03:00 Test Item Value Reference Range Interpretation Comments GLUBED (test code = GLUBED) 113 MG/DL 70-105 H VANCOMYCIN [id number] 13:43:00 Test Item Value Reference Range Interpretation Comments VANCOMYCIN TROUGH 15.9 ug/ml 10.0-20.0 N Please ref er to (test code = VANCT) Medicati on Administration Record (MAR) forlast d ose date and time. [id number] 11:50:00 Test Item Value Reference Range Interpretation Comments GLUBED (test code = GLUBED) 139 MG/DL 70-105 H BASIC METABOLIC [id number] 07:47:00 Test Item Value Reference Range Interpretation [...] mg/dL 8.5-10.5 L = CA) CBC W/AUTO [id number] 07:37:00 Test Item Value Reference Range Interpretation [...] = BA#) 0.1 x10 3/uL 0.0-0.1 N [id number] 06:21:00 Test Item Value Reference Range Interpretation Comments GLUBED (test code = GLUBED) 141 MG/DL 70-105 H [id number] 21:37:00 Test Item Value Reference Range Interpretation Comments GLUBED (test code = GLUBED) 135 MG/DL 70-105 H [id number] 17:38:00 Test Item Value Reference Range Interpretation Comments GLUBED (test code = GLUBED) 144 MG/DL 70-105 H [id number] 11:57:00 Test Item Value Reference Range Interpretation Comments GLUBED (test code = GLUBED) 141 MG/DL 70-105 H VANCOMYCIN [id number] 07:35:00 Test Item Value Reference Range Interpretation Comments VANCOMYCIN TROUGH 10.8 ug/ml 10.0-20.0 N Please ref er to (test code = VANCT) Medicati on Administration Record (MAR) forlast d ose date and time. [id number] 06:05:00 Test Item Value Reference Range Interpretation Comments GLUBED (test code = GLUBED) 139 MG/DL 70-105 H CBC W/AUTO [id number] 05:22:00 Test Item Value Reference Range Interpretation [...] 0.1 x10 3/uL 0.0-0.1 N BASIC METABOLIC [id number] 05:11:00 Test Item Value Reference Range Interpretation [...] code 8.5 mg/dL 8.5-10.5 N = CA) [id number] 21:02:00 Test Item Value Reference Range Interpretation Comments GLUBED (test code = GLUBED) 164 MG/DL 70-105 H LACTIC [id number] 18:08:00 Test Item Value Reference Range Interpretation Comments LACTIC ACID (test code = LACT) 1.2 mmol/L 0.5-2.0 N - XR CHEST 1 [id number] 14:36:00 [facility] : 1975 Sex: FPatient Name: JERI VILLALOBOS Unit No: [id number] EXAMS: CPT: [id number] XR CHEST 1 V 05479 EXAM: XR CHEST1 VIEW DATE: 02/22/2022 1:39 [...] Bones and soft tissues: No acute abnormality. IMPRESSION:No significant change in left lower lobe subsegmental atelectasis or infiltrates. The lungs are otherwise clear. at 1436 Reported and signed by: Yung Abel MD CC: Manuel Rose DO Technologist: Stephanie Deleon Time: DAP (Gy m2): Air Kerma (mGy): Trscr Dt/Tm: 02/22/2022 (1436) by:[email or web address] Orig Print D/T: S: 02/22/2022 (1430) BATCH NO: N/A Name: JERI VILLALOBOS [facility] Phys: SIDFA. - [place],Manuel Grant [address] [facility] : 1975 Age: 46 Sex: F [place] [address] Loc: N.0353 1 Exam Date: 02/22/2022 Status: ADM IN PH: FAX: PAGE 1 Signed ReportUA RFLX MICR CULT IF [id number] 13:49:00 Test Item Value Reference Range Interpretation [...] culture: Temperature > 100.4 FSpecimen Description: CATHETERIZED (STRAIGHT)[id number] 11:40:00 Test Item Value Reference Range Interpretation Comments GLUBED (test code = GLUBED) 168 MG/DL 70-105 H BASIC METABOLIC [id number] 06:49:00 Test Item Value Reference Range Interpretation [...] code 9.5 mg/dL 8.5-10.5 N = CA) [id number] 06:49:00 Test Item Value Reference Range Interpretation Comments MAGNESIUM (test code = MAG) 2.4 mg/dl 1.8-2.5 N CBC W/AUTO [id number] 06:34:00 Test Item Value Reference Range Interpretation [...] = BA#) 0.1 x10 3/uL 0.0-0.1 N [id number] 05:45:00 Test Item Value Reference Range Interpretation Comments GLUBED (test code = GLUBED) 172 MG/DL 70-105 H [id number] 19:41:00 Test Item Value Reference Range Interpretation Comments GLUBED (test code = GLUBED) 138 MG/DL 70-105 H [id number] 15:35:00 Test Item Value Reference Range Interpretation Comments GLUBED (test code = GLUBED) 155 MG/DL 70-105 H [id number] 12:37:00 Test Item Value Reference Range Interpretation Comments GLUBED (test code = GLUBED) 157 MG/DL 70-105 H - XR CHEST 1 [id number] 09:18:00 [facility] : 1975 Sex: FPatient Name: JERI VILLALOBOS Unit No: [id number] EXAMS: CPT: [id number] XR CHEST 1 V 15693 EXAM: XR CHEST 1 VIEW DATE: 02/21/2022 8:14 AM INDICATION: Increased tracheal secretions COMPARISON: Chest radiograph on 02/11/2022 TECHNIQUE: AP chest. FINDINGS: Lines, tubes and hardware: A tracheostomy tube is identified with tip overlying the thoracic trachea. Lungs and pleura: No significant change in the leftlower lobe atelectasis and/or infiltrates. The lungs are otherwise clear. Vasculature is normal. Costophrenic sulcus is sharp. No pneumothorax is identified. Heart and mediastinum: The heart size is normal. The mediastinal contours are normal. Bones and soft tissues: No acute abnormality. IMPRESSION: N o significant change in left lower lobe subsegmental atelectasis or infiltrates. The lungs are otherwise clear. at 0918 Reported and signed by: Yung Abel MD CC: Manuel Rose DO Technologist: Logan Deleon Time: DAP (Gy m2): Air Kerma(mGy): Trscr Dt/Tm: 02/21/2022 (09) by:[email or web address] Orig Print D/T: S: 02/21/2022 (920) BATCH NO: N/A Name: JERI VILLALOBOS [facility] Phys: SIDFA. [place],Manuel Sidhu D [address] : 1975 Age: 46 Sex: F [place] [address] Loc: N.0353 1 Exam Date: 02/21/2022 Status: ADM IN PH: FAX: PAGE 1 Signed ReportCBC W/AUTO [id number] 07:45:00 Test Item Value Reference Range Interpretation [...] 0.1 x10 3/uL 0.0-0.1 N BASIC METABOLIC [id number] 07:22:00 Test Item Value Reference Range Interpretation [...] code 9.1 mg/dL 8.5-10.5 N = CA) [id number] 07:09:00 Test Item Value Reference Range Interpretation Comments GLUBED (test code = GLUBED) 160 MG/DL 70-105 H [id number] 20:59:00 Test Item Value Reference Range Interpretation Comments GLUBED (test code = GLUBED) 122 MG/DL 70-105 H BASIC METABOLIC [id number] 16:30:00 Test Item Value Reference Range Interpretation [...] mg/dL 8.5-10.5 N = CA) CBC W/AUTO [id number] 16:02:00 Test Item Value Reference Range Interpretation [...] = BA#) 0.1 x10 3/uL 0.0-0.1 N [id number] 15:05:00 Test Item Value Reference Range Interpretation Comments GLUBED (test code = GLUBED) 142 MG/DL 70-105 H [id number] 10:44:00 Test Item Value Reference Range Interpretation Comments GLUBED (test code = GLUBED) 150 MG/DL 70-105 H [id number] 06:45:00 Test Item Value Reference Range Interpretation Comments GLUBED (test code = GLUBED) 153 MG/DL 70-105 H [id number] 21:00:00 Test Item Value Reference Range Interpretation Comments GLUBED (test code = GLUBED) 135 MG/DL 70-105 H [id number] 12:11:00 Test Item Value Reference Range Interpretation Comments GLUBED (test code = GLUBED) 127 MG/DL 70-105 H - XR CHEST 1 [id number] 07:51:00 [facility] : 1975 Sex: FPatient Name: JERI VILLALOBOS Unit No: [id number] EXAMS: CPT: [id number] XR CHEST 1 V 64044 Comparison study: 02/15/2022 History: Respiratory failure CHEST [...] (0754) BATCH NO: N/A Name: JERI VILLALOBOS [facility] Phys: Shun Garcia [address] : 1975 Age: 46 Sex: F [place], [place] [address] Loc: N.2050 09 Exam Date: 02/19/2022 Status: ADM IN PH: FAX: PAGE 1 Signed Report [id number] 06:40:00 Test Item Value Reference Range Interpretation Comments GLUBED (test code = GLUBED) 152 MG/DL 70-105 H BASIC METABOLIC [id number] 04:44:00 Test Item Value Reference Range Interpretation [...] code 9.5 mg/dL 8.5-10.5 N = CA) [id number] 04:44:00 Test Item Value Reference Range Interpretation Comments PHOSPHOROUS (test code = PHOS) 5.5 mg/dl 2.5-4.6 H [id number] 04:44:00 Test Item Value Reference Range Interpretation Comments MAGNESIUM (test code = MAG) 2.3 mg/dl 1.8-2.5 N CBC W/AUTO [id number] 04:30:00 Test Item Value Reference Range Interpretation [...] = BA#) 0.1 x10 3/uL 0.0-0.1 N [id number] 00:35:00 Test Item Value Reference Range Interpretation Comments GLUBED (test code = GLUBED) 136 MG/DL 70-105 H [id number] 16:43:00 Test Item Value Reference Range Interpretation Comments GLUBED (test code = GLUBED) 140 MG/DL 70-105 H [id number] 07:44:00 Test Item Value Reference Range Interpretation Comments GLUBED (test code = GLUBED) 152 MG/DL 70-105 H [id number] 07:44:00 Test Item Value Reference Range Interpretation Comments GLUBED (test code = GLUBED) 97 MG/DL 70-105 N [id number] 06:24:00 Test Item Value Reference Range Interpretation Comments GLUBED (test code = GLUBED) 142 MG/DL 70-105 H CBC W/AUTO [id number] 06:08:00 Test Item Value Reference Range Interpretation [...] 0.1 x10 3/uL 0.0-0.1 N BASIC METABOLIC [id number] 04:29:00 Test Item Value Reference Range Interpretation [...] code 10.0 mg/dL 8.5-10.5 N = CA) [id number] 04:29:00 Test Item Value Reference Range Interpretation Comments PHOSPHOROUS (test code = PHOS) 5.0 mg/dl 2.5-4.6 H [id number] 04:29:00 Test Item Value Reference Range Interpretation Comments MAGNESIUM (test code = MAG) 2.3 mg/dl 1.8-2.5 N [id number] 00:48:00 Test Item Value Reference Range Interpretation Comments GLUBED (test code = GLUBED) 103 MG/DL 70-105 N [id number] 16:28:00 Test Item Value Reference Range Interpretation Comments GLUBED (test code = GLUBED) 96 MG/DL 70-105 N - DUP EXTRACRANIAL [id number] 09:49:00 [facility] : 1975 Sex: FPatient Name: JERI VILLALOBOS Unit No: [id number] EXAMS: CPT: [id number] DUP EXTRACRANIAL ARTEMIO 92109 BILATERAL CAROTID ARTERY ULTRASOUND DUPLEX SCAN AND [...] measured area of stenosis is 35%. The WaveForm Spectral Analysis is normal without evidence of [...] hemodynamically significant lesions, and this is consistent withstenosis of less than 50%. The Peak Systolic Velocity is less than 1.25 m/sec, and the Peak Diastolic Velocity is less than 0.4 m/sec. The VICA / VCCA ratio is 0.8. Name: JERI VILLALOBOS [facility] [place] Phys: Tiburcio Angel MD [address] [facility] : 1975 Age: 46 Sex: F [place] [id number] Loc: N.2050 09 Exam Date: 02/16/2022 Status: ADM IN PH: FAX: PAGE 1 Signed Report (CONTINUED) Patient Name: JERI VILLALOBOS Unit No: [id number] EXAMS: CPT: [id number] DUP EXTRACRANIAL ARTEMIO 89836 (Continued) VERTEBRAL ARTERY FLOW Normal antegrade vertebral artery flow bilaterally. at 0949 Reported and signed by: LISANDRA PADRON MD CC: Love Kumar MD; Tiburcio Cartagena MD Technologist: Anu So Probe: Trscr Dt/Tm: 02/17/2022 (0949) by:BasilHR Orig Print D/T: S: 02/17/2022 (0953) BATCH NO: N/A Name: JERI VILLALOBOS [facility] Phys: Tiburcio Angel MD [address] [facility] : 1975 Age: 46 Sex: F [place], [place] [address] Loc: N.2050 09 Exam Date: 02/16/2022 Status: ADM IN PH: FAX: PAGE 2 Signed [id number] 07:58:00 Test Item Value Reference Range Interpretation Comments GLUBED (test code = GLUBED) 110 MG/DL 70-105 H HCG [id number] 03:51:00 Test Item Value Reference Range Interpretation [...] nitoring the treatment o fcancer patients PROTHROMBIN [id number] 03:39:00 Test Item Value Reference Range Interpretation [...] .5 recurrent syste chong embolism. THROMBOPLASTIN TIME [id number] 03:39:00 Test Item Value Reference Range Interpretation Comments THROMBOPLASTIN TIME PARTIAL (test 29 SECONDS 25-38 N code = PTT) BASIC METABOLIC [id number] 03:39:00 Test Item Value Reference Range Interpretation [...] mg/dL 8.5-10.5 N = CA) CBC W/AUTO [id number] 03:26:00 Test Item Value Reference Range Interpretation [...] = BA#) 0.1 x10 3/uL 0.0-0.1 N [id number] 00:22:00 Test Item Value Reference Range Interpretation Comments GLUBED (test code = GLUBED) 112 MG/DL 70-105 H [id number] 16:32:00 Test Item Value Reference Range Interpretation Comments GLUBED (test code = GLUBED) 112 MG/DL 70-105 H [id number] 12:51:00 Test Item Value Reference Range Interpretation Comments GLUBED (test code = GLUBED) 118 MG/DL 70-105 H [id number] 07:34:00 Test Item Value Reference Range Interpretation Comments GLUBED (test code = GLUBED) 97 MG/DL 70-105 N COMPREHENSIVE METABOLIC [id number] 07:32:00 Test Item Value Reference Range Interpretation [...] 42-121 N PHOSPHATASE (test code = ALKP) [id number] 04:16:00 Test Item Value Reference Range Interpretation Comments CREATININE (test code = CREAT) 0.63 mg/dL 0.44-1.03 N [id number] 04:16:00 Test Item Value Reference Range Interpretation Comments PHOSPHOROUS (test code = PHOS) 3.9 mg/dl 2.5-4.6 N [id number] 04:16:00 Test Item Value Reference Range Interpretation Comments MAGNESIUM (test code = MAG) 2.0 mg/dl 1.8-2.5 N [id number] 00:03:00 Test Item Value Reference Range Interpretation Comments GLUBED (test code = GLUBED) 110 MG/DL 70-105 H UA RFLX MICR CULT IF [id number] 13:51:00 Test Item Value Reference Range Interpretation [...] for culture: RiskForSepsis-no oth srcSpecimen Description: CATHETERIZED (STRAIGHT)[id number] 11:24:00 Test Item Value Reference Range Interpretation Comments GLUBED (test code = GLUBED) 106 MG/DL 70-105 H - DUP VEIN UNI [id number] 10:04:00 [facility] : 1975 Sex: FPatient Name: JERI VILLALOBOS [facility] Unit No: [id number] EXAMS: CPT: [id number] [address] RIGHT UPPEREXTREMITY VENOUS COLOR DOPPLER SCAN AND [...] Vein. There is no evidence of intraluminal fillingdefects. The vessel fulton are thin and smooth. Real time Doppler wave form analysis indicates normal antegrade flow patterns. 2. The Right Internal Jugular Vein is patent without evidence of thrombosisor obstruction. at 1004 Reported and signed by: LISANDRA PADRON MD CC: Love Kumar MD; Steph Kumari MD Technologist: FAMILIA Chavarria Probe: Trscr Dt/Tm: 02/15/2022 (1004) by:BasilHR [facility] Print D/T: S: 02/15/2022 (1007) BATCH NO: N/A Name: JERI VILLALOBOS [facility] Phys: JUANCARLOS. - Steph Kumari MD [address] [facility] : 1975 Age:46 Sex: F [place], [place] [address] Loc: N.2051 1 Exam Date: 02/14/2022 Status: ADM IN PH: FAX: PAGE 1 Signed [id number] 07:23:00 Test Item Value Reference Range Interpretation Comments GLUBED (test code = GLUBED) 134 MG/DL 70-105 H - XR CHEST 1 [id number] 06:40:00 [facility] : 1975 Sex: FPatient Name: JERI VILLALOBOS Unit No: [id number] EXAMS: CPT: [id number] XR CHEST 1 V 64793 Portable chest, 02/15/2022. Clinical: Aspiration. Comment: The [...] Air Kerma (mGy): Trscr Dt/Tm: 02/15/2022 (0640) by:[email or web address] Orig Print D/T: S: 02/15/2022 (0643) BATCH NO: N/A Name: JERI VILLALOBOS [facility] Phys: Jorje Brasher MD [address] : 1975 Age: 46 Sex: F [place], [place] [address] Loc: N.1 1 Exam Date: 02/15/2022 Status: ADM IN PH: FAX: PAGE 1 Signed [id number] 06:14:00 Test Item Value Reference Range Interpretation Comments GLUBED (test code = GLUBED) 179 MG/DL 70-105 H BASIC METABOLIC [id number] 04:28:00 Test Item Value Reference Range Interpretation [...] code 8.5 mg/dL 8.5-10.5 N = CA) [id number] 04:28:00 Test Item Value Reference Range Interpretation Comments PHOSPHOROUS (test code = PHOS) 3.7 mg/dl 2.5-4.6 N [id number] 04:28:00 Test Item Value Reference Range Interpretation Comments MAGNESIUM (test code = MAG) 1.7 mg/dl 1.8-2.5 L CBC W/AUTO [id number] 04:18:00 Test Item Value Reference Range Interpretation [...] BA#) 0.0 x10 3/uL 0.0-0.1 N SED [id number] 02:39:00 Test Item Value Reference Range Interpretation Comments SED RATE (test code = SEDW) 57 mm/hr 0-20 H HIGH SENSITIVITY [id number] 01:33:00 Test Item Value Reference Range Interpretation Comments HIGH SENSITIVITY CRP (test code = 5.257 mg/dl 0.000-0.747 H CRPHS) [id number] 00:38:00 Test Item Value Reference Range Interpretation Comments GLUBED (test code = GLUBED) 96 MG/DL 70-105 N [id number] 16:56:00 Test Item Value Reference Range Interpretation Comments GLUBED (test code = GLUBED) 124 MG/DL 70-105 H ARTERIAL BLOOD [id number] 10:08:00 Test Item Value Reference Range Interpretation [...] d message] code = MARY) The system [employer] generated this result transmit may reference range [...] code 12.5 g/dL 12.0-18.0 N = THB) [id number] 08:45:00 Test Item Value Reference Range Interpretation Comments GLUBED (test code = GLUBED) 112 MG/DL 70-105 H [id number] 04:22:00 Test Item Value Reference Range Interpretation Comments PHOSPHOROUS (test code = PHOS) 4.5 mg/dl 2.5-4.6 N [id number] 04:22:00 Test Item Value Reference Range Interpretation Comments MAGNESIUM (test code = MAG) 1.9 mg/dl 1.8-2.5 N BASIC METABOLIC [id number] 04:14:00 Test Item Value Reference Range Interpretation [...] mg/dL 8.5-10.5 N = CA) CBC W/AUTO [id number] 04:03:00 Test Item Value Reference Range Interpretation [...] = BA#) 0.1 x10 3/uL 0.0-0.1 N [id number] 23:41:00 Test Item Value Reference Range Interpretation Comments GLUBED (test code = GLUBED) 89 MG/DL 70-105 N [id number] 18:22:00 Test Item Value Reference Range Interpretation Comments GLUBED (test code = GLUBED) 126 MG/DL 70-105 H - XR CHEST 1 [id number] 06:29:00 [facility] : 1975 Sex: FPatient Name: JERI VILLALOBOS Unit No: [id number] EXAMS: CPT: [id number] XR CHEST 1 V 77812 Portable chest, 02/13/2022. Clinical: Aspiration. Comment: The airway and gastric tubes remain in place. There arebilateral pulmonary opacities primarily within the right base and left lung. There is no evidence ofdecompensation. No pneumothorax is detected. The regional skeleton appears stable. IMPRESSION: Interval improvement since 02/12/2022. at 0629 Reported and signed by: Curtis Llamas MD CC: Love Kumar MD; Tejas Zapata Technologist: Papito Deleon Time: DAP (Gy m2): Air Kerma (mGy): Trscr Dt/Tm: 02/13/2022 (628) by:[email or web address] Orig Print D/T: S: 02/13/2022 (0632) BATCH NO: N/A Name: JERI VILLALOBOS [facility] Phys: TRUDI - Tejas Zapata [address] : 1975 Age: 46 Sex: F [place], [place] [address] Loc: N.2050 09 Exam Date: 02/13/2022 Status: ADM IN PH: FAX: PAGE 1 Signed ReportCOMPREHENSIVE METABOLIC [id number] 04:15:00 Test Item Value Reference Range Interpretation [...] 42-121 N PHOSPHATASE (test code = ALKP) [id number] 04:15:00 Test Item Value Reference Range Interpretation Comments PHOSPHOROUS (test code = PHOS) 3.4 mg/dl 2.5-4.6 N [id number] 04:15:00 Test Item Value Reference Range Interpretation Comments MAGNESIUM (test code = MAG) 1.9 mg/dl 1.8-2.5 N CBC W/AUTO [id number] 04:06:00 Test Item Value Reference Range Interpretation [...] = BA#) 0.0 x10 3/uL 0.0-0.1 N [id number] 00:07:00 Test Item Value Reference Range Interpretation Comments GLUBED (test code = GLUBED) 109 MG/DL 70-105 H [id number] 18:06:00 Test Item Value Reference Range Interpretation Comments GLUBED (test code = GLUBED) 113 MG/DL 70-105 H [id number] 12:18:00 Test Item Value Reference Range Interpretation Comments GLUBED (test code = GLUBED) 111 MG/DL 70-105 H - XR CHEST 1 [id number] 06:13:00 [facility] : 1975 Sex: FPatient Name: JERI VILLALOBOS Unit No: [id number] EXAMS: CPT: [id number] XR CHEST 1 V 42223 Portable chest, 02/12/2022. Clinical: Pneumonia. Comment: The airway and gastric tubes remain in place. There arebilateral consolidations primarily within the left lung and right base. There is no evidence of pneumothorax. The regional skeleton appears stable. IMPRESSION: No significant change since 02/10/2022. at 0613 Reported and signed by: Curtis Llamas MD CC: Love Kumar MD; Steph Kumari MD Technologist: Papito Deleon Time: DAP (Gy m2): Air Kerma (mGy): Trscr Dt/Tm: 02/12/2022 (0613) by:[email or web address] Orig Print D/T: S: 02/12/2022 (0616) BATCH NO: N/A Name: JERI VILLALOBOS [facility] Phys: JUANCARLOS.02 - Steph Kumari MD [address] [facility] : 1975 Age: 46 Sex: F [place] [address] Loc: N.2050 1 Exam Date: 02/12/2022 Status: ADM IN PH: FAX: PAGE 1 Signed ReportCALCIUM [id number] 06:12:00 Test Item Value Reference Range Interpretation Comments CALCIUM IONIZED (test code = WESLY) 1.14 mmol/L 1.13-1.32 N [id number] 05:52:00 Test Item Value Reference Range Interpretation Comments PHOSPHOROUS (test code = PHOS) 2.7 mg/dl 2.5-4.6 N [id number] 05:52:00 Test Item Value Reference Range Interpretation Comments MAGNESIUM (test code = MAG) 1.7 mg/dl 1.8-2.5 L CBC W/AUTO [id number] 05:18:00 Test Item Value Reference Range Interpretation [...] 0.0 x10 3/uL 0.0-0.1 N COMPREHENSIVE METABOLIC [id number] 05:12:00 Test Item Value Reference Range Interpretation [...] 42-121 N PHOSPHATASE (test code = ALKP) [id number] 01:02:00 Test Item Value Reference Range Interpretation Comments GLUBED (test code = GLUBED) 110 MG/DL 70-105 H HGBA1C - GLYCOSYLATED [id number] 19:19:00 Test Item Value Reference Range Interpretation [...] red blood cells - MRI BRAIN W/O [id number] 16:41:00 [facility] : 1975 Sex: FPatient Name: JERI VILLALOBOS Unit No: [id number] EXAMS: CPT: [id number] MRI BRAIN W/O CONTRAST 47473 EXAM: MRI brain without intravenous contrast HISTORY: [...] by: DON MARSHALL MD Name: JERI VILLALOBOS [facility] Phys: JUANCARLOS.Derick - Steph Kumari MD [address] [place] [address] : 1975Age: 46 Sex: F [address]: [id number] Loc: N.2050 09 Exam Date: 02/11/2022 Status: ADM IN PH: FAX: PAGE 1 Signed Report (CONTINUED) Patient Name: JERI VILLALOBOS Unit No: [id number] EXAMS: CPT: [id number] MRI BRAIN W/O CONTRAST 13436 (Continued) CC: Love Kumar MD; Steph Kumari MD Technologist: Natty Barker Dt/Tm: 02/11/2022 (1641) by:[email or web address] Orig Print D/T: S: 02/11/2022(1644) BATCH NO: N/A Name: JERI VILLALOBOS [facility] Phys: JUANCARLOS. - Steph Kumari MD [address] : 1975 Age: 46 Sex: F [place], [place] [address] Loc: N.2050 09 Exam Date: 02/11/2022 Status: ADM IN PH: FAX: PAGE 2 Signed ReportPROTHROMBIN [id number] 16:14:00 Test Item Value Reference Range Interpretation [...] .5 recurrent syste chong embolism. THROMBOPLASTIN TIME [id number] 16:14:00 Test Item Value Reference Range Interpretation Comments THROMBOPLASTIN TIME PARTIAL (test 31 SECONDS 25-38 N code = PTT) COMPREHENSIVE METABOLIC [id number] 16:03:00 Test Item Value Reference Range Interpretation [...] risk) >23 >11 Spec Comments: MUST BE [id number] 16:03:00 Test Item Value Reference Range Interpretation Comments MAGNESIUM (test code = MAG) 2.1 mg/dl 1.8-2.5 N Spec Comments: MUST BE [id number] 15:49:00 Test Item Value Reference Range Interpretation Comments TROPONIN-I (test code = TROPI) <0.020 ng/mL 0.000-0.034 N CBC W/AUTO [id number] 15:34:00 Test Item Value Reference Range Interpretation [...] 3/uL 0.0-0.1 N - CT HEAD/BRAIN W/O [id number] 13:11:00 [facility] : 1975 Sex: FPatient Name: JERI VILLALOBOS Unit No: [id number] EXAMS: CPT: [id number] CT HEAD/BRAIN W/O CONT 51924 Comparison study: 02/09/2022 HISTORY: anoxic brain injury [...] nurse 02/11/2022 at 1311 hours. at 1311 Reportedand signed by: Travis Bashir MD CC: Love Kumar MD; Steph Kumari MD Technologist: Bree Grider CTDI: 43.49 DLP: 800.24 Trscr Dt/Tm: 02/11/2022 (1311) by:[email or web address] Orig Print D/T: S: 02/11/2022(1315) BATCH NO: N/A Name: JERI VILLALOBOS [facility] Phys: JUANCARLOS. Steph Kumari MD [address] [facility] : 1975 Age: 46 Sex: F [place] [address] Loc: N.2050 09 Exam Date: 02/11/2022 Status: ADM IN PH: FAX: PAGE 1 Signed [id number] 11:47:00 Test Item Value Reference Range Interpretation Comments GLUBED (test code = GLUBED) 98 MG/DL 70-105 N COMPREHENSIVE METABOLIC [id number] 06:39:00 Test Item Value Reference Range Interpretation [...] N PHOSPHATASE (test code = ALKP) CALCIUM [id number] 06:33:00 Test Item Value Reference Range Interpretation Comments CALCIUM IONIZED (test code = WESLY) 1.12 mmol/L 1.13-1.32 L CBC W/AUTO [id number] 06:27:00 Test Item Value Reference Range Interpretation [...] = BA#) 0.0 x10 3/uL 0.0-0.1 N [id number] 05:34:00 Test Item Value Reference Range Interpretation Comments PHOSPHOROUS (test code = PHOS) 2.1 mg/dl 2.5-4.6 L [id number] 05:34:00 Test Item Value Reference Range Interpretation Comments MAGNESIUM (test code = MAG) 1.9 mg/dl 1.8-2.5 N ARTERIAL BLOOD [id number] 05:23:00 Test Item Value Reference Range Interpretation [...] d message] code = MARY) The system [employer] generated this result transmit may reference range [...] code 13.3 g/dL 12.0-18.0 N = THB) [id number] 16:35:00 Test Item Value Reference Range Interpretation Comments GLUBED (test code = GLUBED) 71 MG/DL 70-105 N [id number] 12:07:00 Test Item Value Reference Range Interpretation Comments GLUBED (test code = GLUBED) 148 MG/DL 70-105 H [id number] 11:42:00 Test Item Value Reference Range Interpretation Comments GLUBED (test code = GLUBED) 59 MG/DL 70-105 L COVID 19 INHOUSE [id number] 10:50:00 Test Item Value Reference Range Interpretation Comments COVID 19 INHOUSE AG NEGATIVE Negative Negative results should be (test code = treated as pres umptive NRIHE68QNPC) andconfirmed wi th a molecular assay , [...] oms consistent withCOVID-19.Sp ecimen Source: Nasopha ryngeal (ROUTE DRIVER) Swab COAGULATION TIME [id number] 08:14:00 Test Item Value Reference Range Interpretation Comments COAGULATION TIME ACTIVATED (test 159 SECONDS 91-151 H code = ACT) - XR ABDOMEN [id number] 07:53:00 [facility] 1975 Sex: FPatient Name: JERI VILLALOBOS Unit No: [id number] EXAMS: CPT: [id number] XR ABDOMEN 1V 86460 COMPARISON: None available CLINICAL HISTORY: OG TUBE [...] (0756) BATCH NO: N/A Name: JERI VILLALOBOS [facility] Phys: SANWILL01 - Tejas Zapata [address] : 1975 Age: 46 Sex:F [place], [place] [address] Loc: N.2051 1 Exam Date: 02/10/2022 Status: ADM IN PH: FAX: PAGE 1 Signed Report- XR CHEST 1 [id number] 07:41:00 [facility] : 1975 Sex: FPatient Name: JERI VILLALOBOS Unit No: [id number] EXAMS: CPT: [id number] XR CHEST 1 V 64150 AP CHEST 1 VIEW COMPARISON: February 09, 2022 HISTORY: intubation , infiltrates FINDINGS: ET tube is 3.7 cm above the ketty. NG tube is below the diaphragm. Airspace disease throughout the left mid to lower lobe is againseen, unchanged. Smaller infiltrates in the right side were better seen on recent CT. There is no visible gross pneumothorax. The bones are stable. The heart is stable. IMPRESSION: 1. ET tube is above the ketty. 2. Multifocal airspace disease is again visible. at 0741 Reported and signed by: Cynthia Scott MD CC: Manuel Rose DO; Cara Wu NP Technologist: Virgilio Deleon Time: DAP (Gy m2): Air Kerma (mGy): Trscr Dt/Tm: 02/10/2022 (0741) by:[email or web address] Orig Print D/T: S: 02/10/2022 (0744) BATCH NO: N/A Name: JERI VILLALOBOS [facility] Phys: [id number] - Anisa Wu NP [address] [facility] : 1975 Age: 46 Sex: F [place], [place] [address] Loc: N.2050 1 Exam Date: 02/10/2022 Status: ADM IN PH: FAX: PAGE 1 Signed [id number] 07:14:00 Test Item Value Reference Range Interpretation Comments PHOSPHOROUS (test code = PHOS) 2.3 mg/dl 2.5-4.6 L [id number] 07:14:00 Test Item Value Reference Range Interpretation Comments MAGNESIUM (test code = MAG) 1.8 mg/dl 1.8-2.5 N CALCIUM [id number] 06:51:00 Test Item Value Reference Range Interpretation Comments CALCIUM IONIZED (test code = WESLY) 1.11 mmol/L 1.13-1.32 L COMPREHENSIVE METABOLIC [id number] 06:02:00 Test Item Value Reference Range Interpretation [...] PHOSPHATASE (test code = ALKP) ARTERIAL BLOOD [id number] 05:43:00 Test Item Value Reference Range Interpretation [...] d message] code = MARY) The system [employer] generated this result transmitted ref erence range: [...] g/dL 12.0-18.0 N = THB) CBC W/AUTO [id number] 05:06:00 Test Item Value Reference Range Interpretation [...] 3/uL 0.0-0.1 N DRUGS OF ABUSE SCREEN [id number] 19:54:00 Test Item Value Reference Range Interpretation [...] ng/mLRecommende d screening cut-o ff concentrations by [facility] use and [facility]. UR CANABINOIDS (test POSITIVE NEGATIVE A This [...] ff concentrations by [facility] Ab use and [facility]. UR AMPHETAMINE (test POSITIVE NEGATIVE A The ing estion of natural code = AMPHU) herbal and carlo nt productscontain ing Ephedra/Ephedra -Metabolit es can produce in urineone or mor e substances capa ble of cross-reacting withAmphetamine /Methamphe jaun luis melendez says. This testprovides a preliminary res ult [...] ff concentrations by thebstance Ab use and [facility]. UR BARBITURATE (test NEGATIVE NEGATIVE This [...] ff concentrations by [facility]. UR BENZODIAZEPINE NEGATIVE NEGATIVE This is [...] ng/mLRecommende d screening cut-o ff concentrations by [facility] use [facility]. UR OPIATES QUAL (test NEGATIVE NEGATIVE [...] ng/mLRecommende d screening cut-o ff concentrations by [facility] use [facility]. UR PHENCYCLIDINE NEGATIVE NEGATIVE This is [...] ng/mLRecommende d screening cut-o ff concentrations by [facility] use [facility]. URINALYSIS [id number] 19:43:00 Test Item Value Reference Range Interpretation [...] code = 1+ /LPF NONE SEEN MUCU) [id number] 17:19:00 Test Item Value Reference Range Interpretation Comments GLUBED (test code = GLUBED) 95 MG/DL 70-105 N ARTERIAL BLOOD [id number] 16:39:00 Test Item Value Reference Range Interpretation [...] d message] code = MARY) The system [employer] generated this result transmit may reference range [...] N = THB) - XR CHEST 1 [id number] 14:10:00 [facility] : 1975 Sex: FPatient Name: JERI VILLALOBOS Unit No: [id number] EXAMS: CPT: [id number] XR CHEST 1 V 44813 XR CHEST 1 VIEW HISTORY: ETT PLACEMENT [...] Kumar MD; Manuel Rose DO Technologist: Bronson Gill Fluoro Time: DAP (Gy m2): Air Kerma (mGy): Trscr Dt/Tm: 02/09/2022 (1410) by:[email or web address] Orig Print D/T: S: 02/09/2022 (1414) BATCH NO: N/A Name: JERI VILLALOBOS [facility] Phys: DAMIAN.Derick - Love Kumar V [address] : 1975 Age: 46 Sex: F [place], [place] [address] Loc: N.2050 09 Exam Date: 02/09/2022 Status: ADM IN PH: FAX: PAGE 1 Signed Report- CT C-SPINE W/O [id number] 13:29:00 [facility] : 1975 Sex: FPatient Name: JERI VILLALOBOS Unit No: [id number] EXAMS: CPT: [id number] CT C-SPINE W/O CONT 10544 CT CERVICAL SPINE Multiplanar imaging of the cervical spine was performed without contrast. Radiation dose optimization was achieved by protocols in accordance with standard of practice, department policies and fluid pump operator's recommendations with one or more of the following: Automated exposure control, adjustment of KVP and MAS by age and weight, iterative reconstruction technique. DLP: 277 mGy/cm HISTORY PROVIDED: Altered mental status overdose COMPARISON: No previous cervical spine imaging available for review FINDINGS: Craniocervical junction: The foramen magnum is widely patent. The cerebellar tonsils are in normal position. The C1-C2 relationship is normal. C2-C3: There is mild disc bulging. Thereis mild bilateral facet arthrosis. There is no spinal or foraminal stenosis. C3-C4: There is mild disc bulging. There is advanced left-sided facet arthrosis with left foraminal narrowing. There [...] Multilevel disc degeneration and spondylosis. Name: FABIJERI [facility] Phys: Ruiz Wolfe MD [address] 1975 Age: 46 Sex: F [place] [address] Loc: N.2050 1 Exam Date: 02/09/2022 Status: ADM IN PH: FAX: PAGE 1 Signed Report (CONTINUED) Patient Name: JERI VILLALOBOS [facility] Unit No: [id number] EXAMS: CPT: [id number] CT C-SPINE W/O CONT 54402 (Continued) Multilevel facet arthrosis. at 1329 Reported and signed by: Derick Norton MD CC: Ruiz Vaughn MD; Manuel Rose DO Technologist: Sarah Perez CTDI: 13.02 DLP: 277.12 Trscr Dt/Tm: 02/09/2022 (1329) by:Cheri Smith Print D/T: S: 02/09/2022 (1332) BATCH NO: N/A Name: JERI VILLALOBOS [facility] Phys: Ruiz Wolfe MD [address] : 1975 Age: 46 Sex: F [place] [address] Loc: N.2050 1 Exam Date: 02/09/2022 Status: ADM IN PH: FAX: PAGE 2 Signed Report- CTA CHEST FOR [id number] 13:24:00 [facility] : 1975 Sex: FPatient Name: JERI VILLALOBOS Unit No: [id number] EXAMS: CPT: [id number] [place] [address] CTA CHESTWITH CONTRAST: INDICATIONS:Pulmonary embolism. COMPARISON: None [...] with ACR practice standards and adherence to fluid pump operator's recommendations. Contrast: 100cc Isovue-300. Total DPL: 1497.94mGy*cm. [...] signed by: Jalen Black MD Name: FABIJERI [facility] Phys: Ruiz Wolfe MD [address] [facility] : 1975 Age: 46 Sex: F [id number] Loc: N.2050 1 Exam Date: 02/09/2022 Status: ADM IN PH: FAX: PAGE 1 Signed Report (CONTINUED) Patient Name: JERI VILLALOBOS Unit No: [id number] EXAMS: CPT: [id number] [place] [address] (Continued) CC: Ruiz Vaughn MD; Manuel Rose DO Technologist: Sarah Perez CTDI: 11.06 DLP: 398.57 Trscr Dt/Tm: 02/09/2022 (1324) by:[email or web address] Orig Print D/T: S: 02/09/2022 (1327) BATCH NO: N/A Name: JERI VILLALOBOS [facility] Phys: Ruiz Wolfe MD [address] : 1975 Age: 46 Sex: F [place], [place] [address] Loc: N.2050 1 Exam Date: 02/09/2022 Status: ADM IN PH: FAX: PAGE 2 Signed Report- CT HEAD/BRAIN W/O [id number] 13:17:00[facility] : 1975 Sex: FPatient Name: JERI VILLALOBOS Unit No: [id number] EXAMS: CPT: [id number] CT HEAD/BRAIN W/O CONT 37101 CTHEAD Multiplanar imaging was performed without contrast. Radiation dose optimization was achieved byprotocols in accordance with standard of practice, department policies and fluid pump operator's recommendations with one or more of the [...] Thank you for allowing me to participate inthe care of your patient. Derick Norton MD Neuroradiology at 1317 Reported and signed by: Derick Norton MD Name: JERI VILLALOBOS [facility] Phys: Ruiz Wolfe MD [address] [facility] : 1975 Age: 46 Sex: F [place] [address] Loc: N.2050 09 Exam Date: 02/09/2022 Status: ADM IN PH: FAX: PAGE 1 Signed Report (CONTINUED) Patient Name: FABIJERI Unit No: [id number] EXAMS: CPT: [id number] CT HEAD/BRAIN W/O CONT 15523 (Continued) CC: Ruiz Vaughn MD; Manuel Rose DO Technologist: Sarah Perez CTDI: 45.45 DLP: 736.2 Trscr Dt/Tm: 02/09/2022 (1317) by:Cheri Smith Print D/T: S: 02/09/2022(1320) BATCH NO: N/A Name: JERI VILLALOBOS [facility] Phys: Ruiz Wolfe MD [address] [facility] : 1975 Age: 46 Sex: F [place] [address] Loc: N.2051 1 Exam Date: 02/09/2022 Status: ADM IN PH: FAX: PAGE 2 Signed ReportLACTIC [id number] 11:06:00 Test Item Value Reference Range Interpretation Comments LACTIC ACID (test code = LACT) 1.6 mmol/L 0.5-2.0 N ARTERIAL BLOOD [id number] 09:33:00 Test Item Value Reference Range Interpretation [...] [Automate d code = MARY) message] The [employer] which generated this result transmitted reference [...] g/dL 12.0-18.0 N = THB) CBC W/AUTO [id number] 07:34:00 Test Item Value Reference Range Interpretation [...] 8.8 fL 8.6-12.6 N = MPV) WBC [id number] 07:34:00 Test Item Value Reference Range Interpretation [...] 3/uL 0.00-0.00 N = OCT#) COMPREHENSIVE METABOLIC [id number] 06:52:00 Test Item Value Reference Range Interpretation [...] 42-121 N PHOSPHATASE (test code = ALKP) [id number] 05:45:00 Test Item Value Reference Range Interpretation Comments GLUBED (test code = GLUBED) 150 MG/DL 70-105 H - XR CHEST 1 [id number] 03:56:00 [facility] DOB: 1975 Sex: FPatient Name: JERI VILLALOBOS Unit No: [id number] EXAMS: CPT: [id number] XR CHEST 1 V 78230 CHEST 1 VIEW CLINICAL HISTORY: Shortness of [...] Dumont MD CC: Chris Hayes MD Technologist: Jolene. Fluoro Time: DAP (Gy m2): Air Kerma (mGy): Trscr Dt/Tm: 02/09/2022 (0356) by:[email or web address] Orig Print D/T: S: 02/09/2022 (0400) BATCH NO: N/A Name: JERI VILLALOBOS [facility] Phys: Chris Blas MD [address] : 1975 Age: 46 Sex: [place] [address] Loc: N.ERS Exam Date: 02/09/2022 Status: REG ER PH: FAX: PAGE 1 Signed Report
[2022-11-23] MEDS ORDERED: NA CHLORIDE 0.9% 2,000 ML ONE (10:59)
[2022-11-23] MEDS ORDERED: ACETAMINOPHEN 650MG/RECT SUPP PR ONE (10:59)
--- NOTE | 2022-11-23 11:45 | RAD REPORT ---
EXAM DESCRIPTION: Raphael Single View3 11:34 am CLINICAL HISTORY: Chest pain COMPARISON: 2021 FINDINGS: Left lower lobe consolidation Right lung appears clear. Heart is normal size. Tracheostomy tube in place IMPRESSION: Left lower lobe consolidation likely pneumonia
[2022-11-23 11:47] LABS: Absolute Lymphocytes (CBC) 0.8 K/uL (0.7-4.9); Hematocrit 32.2 % (36.0-45.0); Lymphocytes % 6.5 % (15.3-44.8); MCV 76.2 fL (80-100); RBC Red Blood Cell Count 4.22 M/uL (3.86-4.86)
[2022-11-23 11:49] LABS: Urine Bacteria None Seen /HPF (<20); Urine Crystals Unidentified Few /HPF (None Seen); Urine Mucus 3+ /HPF (None Seen); Urine RBC >50 /HPF (None Seen); Urine WBC Clump Many /HPF (None Seen)
[2022-11-23 11:51] LABS: Protime INR 1.07
[2022-11-23 12:01] LABS: Albumin 2.8 g/dL (3.4-5.0); Bilirubin Total 0.2 mg/dL (0.2-1.0)
--- NOTE | 2022-11-23 12:09 | EDPHYS ---
Physician Documentation [facility] Name: Angelique Villalobos Age: 46 yrs Sex: Female : 1975 Arrival Date: 11/23/2022 Time: 10:31 Bed 8 Private MD: ED Physician Bar Gorman HPI: 11/23 10:38 This 46 yrs old Female presents to ER via Ambulatory with complaints of Shortness Of jh7 Breath. 10:38 The patient has shortness of breath at rest. Onset: The symptoms/episode began/occurred jh7 acutely. Associated signs and symptoms:. 46-year-old female presents to the ER for tachypnea noted at the custodial. EMS reports that they heard a mucous plug, suction the patient, and that her respirations normalized. ANO x0 at baseline. The patient is currently trached and nonverbal.. Historical: - Allergies: 10:45 albuterol sulfate; hb - PMHx: 10:45 anoxic brain injury; CVA; Hyperlipidemia; MRSA; hb - PSHx: 10:45 PEG tube; tracheostomy; hb - Immunization history:: Adult Immunizations unknown. - Social history:: Smoking status: unknown. ROS: 10:38 Constitutional: Negative for fever, chills, and weight loss, Eyes: Negative for injury, jh7 pain, redness, and discharge. 10:38 Neck: Negative for injury, pain, and swelling, Cardiovascular: Negative for chest pain, palpitations, and edema, Abdomen/GI: Negative for abdominal pain, nausea, vomiting, diarrhea, and constipation, Back: Negative for injury and pain, MS/Extremity: Negative for injury and deformity, Skin: Negative for injury, rash, and discoloration, Neuro: Negative for headache, weakness, numbness, tingling, and seizure. 10:38 ENT: Positive for Patient has a tracheostomy. 10:38 Respiratory: Positive for shortness of breath, at rest. 10:38 All other systems are negative. Exam: 10:38 Eyes: Pupils equal round and reactive to light, extra-ocular motions intact. Lids and jh7 lashes normal. Conjunctiva and sclera are non-icteric and not injected. Cornea within normal limits. Periorbital areas with no swelling, redness, or edema. 10:38 Cardiovascular: Regular rate and rhythm with a normal S1 and S2. No gallops, murmurs, or rubs. Normal PMI, no JVD. No pulse deficits. 10:38 ENT: Nares patent. No nasal discharge, no septal abnormalities noted. Tympanic membranes are normal and external auditory canals are clear. Oropharynx with no redness, swelling, or masses, exudates, or evidence of obstruction, uvula midline. Mucous membranes moist. 10:38 Abdomen/GI: Soft, non-tender, with normal bowel sounds. No distension or tympany. No guarding or rebound. No evidence of tenderness throughout. 10:38 Back: No spinal tenderness. No costovertebral tenderness. 10:38 Constitutional: The patient appears alert, awake, restless. 10:38 Neck: Trachea: Tracheostomy present. 10:38 Respiratory: mild respiratory distress is noted, Respirations: tachypnea, 24 Breath sounds: rales, that are moderate, are located in both bases. 10:38 Musculoskeletal/extremity: Patient bedbound and does not move extremities secondary to anoxic brain injury. 10:38 Skin: Appearance: Temperature: hot, Moisture: normal moisture, flushing, that are mild. 10:38 Neuro: Orientation: Not oriented to person, place, time, situation, At baseline. Sensation: is normal. Vital Signs: 10:35 BP 102 / 79; Pulse 106; Resp 20; Temp 101.5(R); Pulse Ox 99% 40% ; Weight 54.43 kg; hb Height 5 ft. 4 in. (162.56 cm); Pain 0/10; 12:25 BP 110 / 79; Pulse 98; Resp 18; Temp 99; Pulse Ox 100% 5 lpm ; hb 15:00 BP 105 / 76; Pulse 96; Resp 17; Pulse Ox 96% 5 lpm ; hb 16:00 BP 107 / 74; Pulse 104; Resp 17; Pulse Ox 100% 5 lpm ; hb 17:00 BP 105 / 74; Pulse 100; Resp 18; Pulse Ox 97% 5 lpm ; hb 17:57 BP 102 / 74; Pulse 101; Resp 19; Pulse Ox 99% 5 lpm ; hb 10:35 Body Mass Index 20.60 (54.43 kg, 162.56 cm) hb 10:35 Hicks-Hedrick (FACES) hb 10:35 trach collar hb MDM: 10:36 Patient medically screened. [facility] 12:10 Differential diagnosis: pneumonia, pulmonary edema, Sepsis. Antibiotic administration: [facility] Rocephin and Zithromax given. Data interpreted: manager monitoring: rate is 109 beats/min, rhythm is sinus tachycardia, Pulse oximetry: on 6L(s) per nasal canula, is 100 %. Interpretation: normal. Data reviewed: vital signs, nurses notes, lab test result(s), EKG, radiologic studies, plain films. Consideration of Admission/Observation Patient was admitted/placed on observation. Management of patient was discussed with the following: Hospitalist: MARGARITA Lezama with Dr. Bulmaro Quintero. I considered the following discharge prescriptions or medication management in the emergency department Medications were administered in the Emergency Department. See MAR. Independent interpretation of the following test(s) in the Emergency Department EKG: See my EKG interpretation above X-Ray: My interpretation is LLL pneumonia. Historians other than the Patient: EMS: . Care significantly affected by the following chronic conditions: CVA. Counseling: I had a detailed discussion with the patient and/or guardian regarding: the historical points, exam findings, and any diagnostic results supporting the discharge/admit diagnosis, the need for further work-up and treatment in the hospital. Response to treatment: the patient's symptoms have mildly improved after treatment. 11/23 10:37 Order name: Chest Single View XRAY; Complete Time: 11:47 [facility] 11/23 10:44 Order name: Blood Culture Adult (2) [facility] 11/23 10:44 Order name: CBC with Diff; Complete Time: 12:01 [facility] 11/23 10:44 Order name: CMP; Complete Time: 12:02 [facility] 11/23 10:44 Order name: Lactate w/ 2H reflex if indic.; Complete Time: 12:02 [facility] 11/23 10:44 Order name: Protime (+inr); Complete Time: 12:01 [facility] 11/23 10:44 Order name: Ptt, Activated; Complete Time: 12:01 [facility] 11/23 10:44 Order name: Urine Culture [facility] 11/23 10:44 Order name: Urine Microscopic Only; Complete Time: 12:01 [facility] 11/23 10:44 Order name: EKG; Complete Time: 10:46 [facility] 11/23 10:44 Order name: Accucheck; Complete Time: 11:29 [facility] 11/23 10:44 Order name: Cardiac monitoring; Complete Time: 12:32 [facility] 11/23 10:44 Order name: Cath; Complete Time: 10:49 [facility] 11/23 10:44 Order name: EKG - Nurse/Tech; Complete Time: 13:42 [facility] 11/23 10:44 Order name: IV Saline Lock - Large Bore; Complete Time: 11:29 [facility] 11/23 10:44 Order name: Labs collected and sent; Complete Time: 11:29 [facility] 11/23 10:44 Order name: O2 Per Protocol; Complete Time: 10:50 [facility] 11/23 10:44 Order name: O2 Sat Monitoring; Complete Time: 10:50 [facility] 11/23 10:44 Order name: Urine Dipstick-Ancillary (obtain specimen); Complete Time: 11:29 [facility] 11/23 10:44 Order name: Vital Signs; Complete Time: 11:29 [facility] 11/23 11:16 Order name: COVID-19/FLU A+B; Complete Time: 12:34 [facility] 11/23 14:52 Order name: Phosphorus; Complete Time: 15:04 EDMS 11/23 14:52 Order name: Magnesium; Complete Time: 15:04 EDMS Administered Medications: 11:30 Drug: Acetaminophen Suppository 650 mg Route: RI; bp 11:30 Drug: NS 0.9% (30 ml/kg) 30 ml/kg Route: IV; Rate: bolus; Site: right hand; bp 12:32 Drug: Rocephin (cefTRIAXone) 1 grams Route: IV; Rate: 1 calculated rate; Site: right hb wrist; 12:32 Drug: AZITHromycin 500 mg Route: IVPB; Infused Over: 1 hrs; Site: right wrist; hb Disposition Summary: 11/23/22 12:08 Hospitalization Ordered Hospitalization Status: Inpatient Admission [facility] Location: Telemetry/MedSurg (Inpatient) [facility] Condition: Fair [facility] Problem: new [facility] Symptoms: are unchanged [facility] Bed/Room Type: Standard [facility] Provider: Calvin Quintero(11/23/22 12:13) [facility] Room Assignment: 211(11/23/22 16:44) ja Diagnosis - Pneumonia, unspecified organism [facility] Forms: - Medication Reconciliation Form [facility] - SBAR form [facility] Signatures: Dispatcher [employer] EDMS Aparna Somers RN RN Curtis Watson RN RN ja1 Aravind Stringer, RN RN Magda Camacho FNP [place] [id number] Corrections: (The following items were deleted from the chart) 12:13 12:08 Shelton Roland [facility] jh7 16:44 12:08 [facility] ja1
--- NOTE | 2022-11-23 12:09 | ER ---
Nurse's Notes [facility] Name: Angelique Villalobos Age: 46 yrs Sex: Female : 1975 Arrival Date: 11/23/2022 Time: 10:31 Bed 8 Private MD: Diagnosis: Pneumonia, unspecified organism Presentation: 11/23 10:35 Chief complaint: EMS states: [facility] reported SOB today. VS WNL upon arrival. Pt hb AOx0 at baseline, on 5L trach collar. Coronavirus screen: At this time, the client does not indicate any symptoms associated with coronavirus-19. Ebola Screen: No symptoms or risks identified at this time. Risk Assessment: Do you want to hurt yourself or someone else? Patient reports no desire to harm self or others. Onset of symptoms was November 23, 2022. 10:35 Method Of Arrival: Ambulatory hb 10:35 Acuity: DELMER 3 hb 10:35 Initial Sepsis Screen: Does the patient meet any 2 criteria? Temp <36.0*C (96.8*F)) or hb > 38.3*C (100.9*F). HR > 90 bpm. Does the patient have a suspected source of infection? No. Patient's initial sepsis screen is negative. Triage Assessment: 10:36 General: Appears in no apparent distress. Behavior is flat. Pain: Unable to use pain hb scale. Does not appear to understand pain scale. FLACC scale score is 0 out of 10. EENT: No deficits noted. No signs and/or symptoms were reported regarding the EENT system. Neuro: Level of Consciousness is awake, Oriented to none. Cardiovascular: Patient's skin is warm and dry. Rhythm is sinus tachycardia. Respiratory: Respiratory effort is even, unlabored, Respiratory pattern is regular, symmetrical. GI: No deficits noted. PEG in place, dressing dry and intact. : Randolph in place. Derm: Skin is pink, warm \T\ dry. Musculoskeletal: No deficits noted. all four extremities contracted. Historical: - Allergies: 10:45 albuterol sulfate; hb - PMHx: 10:45 anoxic brain injury; CVA; Hyperlipidemia; MRSA; hb - PSHx: 10:45 PEG tube; tracheostomy; hb - Immunization history:: Adult Immunizations unknown. - Social history:: Smoking status: unknown. Screenin:47 [facility] ED Fall Risk Assessment (Adult) Score/Fall Risk Level 0 - 2 = Low Risk hb Maintained a safe environment. Abuse screen: unable to assess. Nutritional screening: No deficits noted. Tuberculosis screening: No symptoms or risk factors identified. Assessment: 10:47 General: See triage assessment. hb 12:25 Reassessment: Patient appears in no apparent distress at this time. No changes from hb previously documented assessment. 15:00 Reassessment: Patient appears in no apparent distress at this time. No changes from hb previously documented assessment. 16:00 Reassessment: Patient appears in no apparent distress at this time. No changes from hb previously documented assessment. 17:00 Reassessment: Patient appears in no apparent distress at this time. No changes from hb previously documented assessment. 17:56 Reassessment: Patient appears in no apparent distress at this time. No changes from hb previously documented assessment. Vital Signs: 10:35 BP 102 / 79; Pulse 106; Resp 20; Temp 101.5(R); Pulse Ox 99% 40% ; Weight 54.43 kg; hb Height 5 ft. 4 in. (162.56 cm); Pain 0/10; 12:25 BP 110 / 79; Pulse 98; Resp 18; Temp 99; Pulse Ox 100% 5 lpm ; hb 15:00 BP 105 / 76; Pulse 96; Resp 17; Pulse Ox 96% 5 lpm ; hb 16:00 BP 107 / 74; Pulse 104; Resp 17; Pulse Ox 100% 5 lpm ; hb 17:00 BP 105 / 74; Pulse 100; Resp 18; Pulse Ox 97% 5 lpm ; hb 17:57 BP 102 / 74; Pulse 101; Resp 19; Pulse Ox 99% 5 lpm ; hb 10:35 Body Mass Index 20.60 (54.43 kg, 162.56 cm) hb 10:35 Hicks-Hedrick (FACES) hb 10:35 trach collar hb ED Course: 10:31 Patient arrived in ED. bp 10:35 Magda Togn FNP is PHCP. jh7 10:36 Bar Gorman MD is Attending Physician. jh7 10:37 Triage completed. hb 10:38 Arm band placed on. hb 10:49 Aravind Stringer, RN is Primary Nurse. bp 11:26 Inserted saline lock: 20 gauge in right wrist, using aseptic technique. Blood collected.hb 11:36 Chest Single View XRAY In Process Unspecified. EDMS 12:07 Shelton Roland MD is Hospitalizing Provider. [facility] 12:13 Calvin Quintero MD is Hospitalizing Provider. jh7 12:25 Patient has correct armband on for positive identification. hb 17:58 No provider procedures requiring assistance completed. Patient admitted, IV remains in hb place. Administered Medications: 11:30 Drug: Acetaminophen Suppository 650 mg Route: DE; bp 11:30 Drug: NS 0.9% (30 ml/kg) 30 ml/kg Route: IV; Rate: bolus; Site: right hand; bp 12:32 Drug: Rocephin (cefTRIAXone) 1 grams Route: IV; Rate: 1 calculated rate; Site: right hb wrist; 12:32 Drug: AZITHromycin 500 mg Route: IVPB; Infused Over: 1 hrs; Site: right wrist; hb Medication: 10:48 VIS not applicable for this client. hb Outcome: 12:08 Decision to Hospitalize by Provider. jh7 17:58 Admitted to Med/surg hb 17:58 Condition: stable 18:45 Patient left the ED. hb Signatures: Dispatcher [employer] EDMS Aparna Somers RN RN Aravind Grossman RN RN bp Magda Tong FNP [employer] [facility] Corrections: (The following items were deleted from the chart) 10:45 10:35 BP 102 / 79; Pulse 106bpm; Resp 20bpm; Pulse Ox 99% 02 40%; Temp 99F Axillary; hb trach collar; hb 15:00 12:25 BP 110 / 79; Pulse 98bpm; Resp 18bpm; Pulse Ox 100% 5 lpm; hb hb
[2022-11-23] MEDS ORDERED: AZITHROMYCIN 500 MG INJ IVPB ONE (12:17)
[2022-11-23] MEDS ORDERED: CEFTRIAXONE 1000 MG/VIAL ONE (12:17)
[2022-11-23] MEDS ORDERED: NA CHLORIDE 0.9% 250 ML ONE (12:17)
[2022-11-23 12:33] LABS: SARS-COV-2 RT PCR NEGATIVE (NEGATIVE)
[2022-11-23] MEDS ORDERED: ACETAMINOPHEN 650MG/RECT SUPP PR PRN (12:49)
[2022-11-23] MEDS ORDERED: ACETAMINOPHEN 325 MG TABLET PO PRN (13:16)
[2022-11-23] MEDS ORDERED: ONDANSETRON 4 MG/2 ML VIAL IV PRN (13:18)
--- NOTE | 2022-11-23 13:23 | P.HP ---
Certification for Inpatient Patient admitted to: Inpatient With expected LOS: >2 Midnights Patient will require the following post-hospital care: None Practitioner: I am a practitioner with admitting privileges, knowledge of patient current condition, hospital course, and medical plan of care. Services: Services provided to patient in accordance with Admission requirements found in Title 42 Section 412.3 of the Code of Federal Regulations Patient History Date of Service: 11/23/22 Reason for admission: SOB History of Present Illness: Patient is a 46-year-old female with a past medical history significant for anoxic brain injury, Paroxysmal sympathetic hyperactivity, trach dependence with PEG tube who presents with complaint of shortness of breath. [facility] a [facility]. No other signs and symptoms reported. Symptoms are aggravated or relieved by nothing. EMS was called and patient was noted to have a mucous plug. Patient was altered by EMS and patient's breathing improved. Patient was brought to the hospital for medical evaluation. Allergies sulfate ion Allergy (Unknown, Verified 06/25/22 18:34) unknown albuterol Adverse Reaction (Unknown, Verified 06/25/22 18:34) elevated hr Home Medications: Baclofen 5 mg PO TID 04/22/22 Gabapentin [Neurontin*] 300 mg PO TID 04/22/22 Polyethylene Glycol 3350 [Miralax] 17 gm PO DAILY 04/22/22 cloNIDine HCL [Clonidine HCl] 0.1 mg PO TID 04/22/22 Ipratropium Neb [Atrovent*] 0.5 mg NEB [id number] amp 04/25/22 Sertraline [Zoloft*] 100 mg PO BEDTIME 04/29/22 Acetaminophen [Tylenol] 650 mg FT Q6H PRN 06/25/22 Acetylcyst 20% Resp [Mucomyst 20% (FOR RESPIRATORY)*] 3 ml IH TID 06/25/22 Carboxymethylcellulose Sodium [Artificial Tears] 15 ml OP QID PRN 06/25/22 Jevity 1.2 Danie Liquid 55 ml FT CONT 06/25/22 clonazePAM [Klonopin] 1 tab PO BID 06/25/22 Acetaminophen with Codeine [Acetaminop-Codeine 120-12 mg/5] 15 ml PO Q8H 07/11/22 Aspirin Chewable [Aspirin Chewable*] 81 mg PO DAILY 07/11/22 Atorvastatin Calcium [Lipitor*] 20 mg PO BEDTIME 07/11/22 Metoprolol Tartrate [Lopressor*] 25 mg PO BID 07/11/22 Rivaroxaban [Xarelto*] 10 mg PO BEDTIME 07/11/22 Collagenase [Santyl Ointment*] 1 appl TOP DAILY tube 07/14/22 Nahun [Nahun*] 1 pkt FT BID 07/14/22 - Past Medical/Surgical History Diabetic: No -: Anoxic Brain Injury, secondary to substance overdose/fentanyl -: Paroxysmal sympathetic hyperactivity -: h/o MRSA -: Tracheostomy dependent -: bilat pontine stroke -: peg tube -: Hysterectomy -: G Tube -: Tracheostomy Psychosocial/ Personal History: Patient lives at [facility]. She has a daughter. - Family History Father Notes: unable to assess r/t pt condition Mother -: Hypertension, Lung disease, Stroke, Cancer Notes: breast ca - Social History Smoking Status: Unknown if ever smoked Alcohol use: No CD- Drugs: No Caffeine use: No Place of Residence: Residential Review of Systems is unable to be obtained (Unable to assess. Patient unresponsive.) Physical Examination - Physical Exam General: Alert, In no apparent distress, Unresponsive HEENT: Atraumatic, PERRLA, Mucous membr. moist/pink, Sclerae nonicteric Neck: Supple, 2+ carotid pulse no bruit, No LAD, Without JVD or thyroid abnormality Respiratory: Diminished Cardiovascular: No edema, Normal S1 S2, No murmurs Capillary refill: <2 Seconds Gastrointestinal: Normal bowel sounds, Soft and benign, No tenderness Musculoskeletal: No clubbing, No swelling, No tenderness Integumentary: Skin breakdown, Pressure ulcer Neurological: Normal tone, Normal affect, Abnormal speech (Patient is nonverbal) Lymphatics: No axilla or inguinal lymphadenopathy Urinary: Randolph catheter - Studies Laboratory Data (last 24 hrs) 11/23/22 11:26: PT 11.8, INR 1.07, APTT 28.9 11/23/22 11:26: Sodium 137, Potassium 4.0, BUN 22 H, Creatinine 0.62, Glucose 132 H, Total Bilirubin 0.2, AST 31, ALT 27, Alkaline Phosphatase 134 H 11/23/22 11:26: WBC 13.00 H, Hgb 10.1 L, Hct 32.2 L, Plt Count 379 Assessment and Plan - Plan -- Pneumonia. Patient placed on antibiotics, neb treatment with albuter ol\Atrovent. Patient on a trach collar. Continue trach care. Pulmonology consulted. Will await further recommendations. --Sepsis. Blood cultures pending. Continue antibiotics. -- Chronic respiratory failure with hypoxia. Patient is trach dependent. Continue antibiotics and neb treatment with Atrovent. Continue trach care. --History of anoxic brain injury. Pt with trach/PEG tube and has quadriplegia. Continue PEG tube feeding. Continue supportive care. -- HLD. Continue statin. --History of constipation. Continue home medication. --Tachycardia. Patient has a history of paroxysmal sympathetic hyperactivity syndrome. Telemetry to monitor for any significant arrhythmia. --Hypertension. Patient currently hypotensive. Will hold off on BP meds. Continue IV hydration. --Leukocytosis. Blood cultures pending. Continue antibiotics. --Pressure Ulcers. On left knee and left hip. Wound care consult initiated. -- DVT prophylaxis with Xarelto. Discharge Plan: Residential Plan to discharge in: Greater than 2 days - Advance Directives Does patient have a Living Will: No Does patient have a Durable POA for Healthcare: No - Code Status/Comfort Care Code Status Assessed: Yes Physician Review: Patient Assessed, Agree with Above Assessment and Plan Critical Care: No
[2022-11-23] MEDS ORDERED: ENOXAPARIN 40 MG/0.4 ML SQ SCH (14:00)
[2022-11-23] MEDS: ALBUTEROL 2.5 MG/3 ML NEB SOL NEB SCH ×2 (14:30→20:00)
[2022-11-23] MEDS: IPRATROPIUM BROM 0.5MG/2.5ML NEB SCH ×2 (14:30→20:00)
[2022-11-23 14:52] LABS: Phosphorus 3.8 mg/dL (2.5-4.9)
[2022-11-23] MEDS ORDERED: ALBUTEROL 2.5 MG/3 ML NEB SOL ONE (15:06)
[2022-11-23] MEDS ORDERED: IPRATROPIUM BROM 0.5MG/2.5ML ONE (15:06)
[2022-11-23] MEDS: JUVEN PACKET FT SCH (21:00)
[2022-11-23] MEDS: RIVAROXABAN 10 MG TABLET PO SCH (22:08)
[2022-11-23] MEDS: JEVITY 1.2 CAL LIQUID 1,000 ML BOT FT SCH (22:08)
[2022-11-23 23:31] VITALS: BMI 18.5
[2022-11-24] MEDS: IPRATROPIUM BROM 0.5MG/2.5ML NEB SCH ×4 (02:00→20:25)
[2022-11-24] MEDS: ALBUTEROL 2.5 MG/3 ML NEB SOL NEB SCH ×4 (02:00→20:25)
[2022-11-24 04:46] LABS: Calcium Oxalate Crystals- Ur Few /HPF (None Seen); Renal Epithelial <5 /HPF (None Seen); Specific Gravity 1.015 (1.005-1.030); Transitional Epithelial <5 /HPF (None Seen); Urine Bacteria <20 /HPF (<20); Urine Bilirubin NEGATIVE (Negative); Urine Blood Negative (Negative); Urine Clarity Turbid (Clear); Urine Color Light-Yellow (Yellow); Urine Glucose NEGATIVE (Negative); Urine Mucus 1+ /HPF (None Seen); Urine Protein NEGATIVE (Negative); Urine RBC <5 /HPF (None Seen); Urine Urobilinogen Normal (Normal)
[2022-11-24 06:53] LABS: Absolute Lymphocytes (CBC) 0.9 K/uL (0.7-4.9); Hematocrit 33.6 % (36.0-45.0); Lymphocytes % 9.4 % (15.3-44.8); MCV 77.1 fL (80-100); MPV 7.9 fL (7.6-11.3); RBC Red Blood Cell Count 4.35 M/uL (3.86-4.86)
[2022-11-24 07:07] LABS: Potassium 3.7 mmol/L (3.5-5.1)
--- NOTE | 2022-11-24 07:23 | P.PN ---
Date of Service: 11/24/22 Subjective: No acute events overnight as per nursing staff Tachycardic, tachypneic continues on trach collar afebrile ROS: 10 point ROS as noted above, otherwise negative Physical Exam: GEN: opens eyes, keeps open/big when asked HEENT: Normal conjunctiva, sclera anicteric CV: sinus tachycardia, no edema Pulm: on trach collar, mild labored respirations ABD: Soft, nontender, nondistended Integumentary: multiple large sacral decubitus ulcers Neuro: quadraplegia, awake Problem List: Pneumonia Sepsis Chronic respiratory failure with hypoxia History of anoxic brain injury HLD Tachycardia Hypertension Leukocytosis Pressure Ulcers continue empiric antibiotics - vanc/cefepime pt with h/o MDR infections ID consulted - pneumonia and sacral ulcers Pulm consulted - CXR noted pneumonia on trach collar confirm chronic meds, restart as appropriate f/u cultures telemetry VTE: DVT prophylaxis with Xarelto. Code: Full Dispo: Prison; Greater than 2 days
[2022-11-24] MEDS: ASPIRIN 81 MG CHEWABLE TABLET PO SCH (07:43)
[2022-11-24] MEDS: JUVEN PACKET FT SCH ×2 (07:44→20:19)
--- NOTE | 2022-11-24 08:41 | P.CNS ---
Date of Consult: 11/24/22 Reason for Consult: Left lower lobe pneumonia Chief Complaint: SOB History of Present Illness: Patient is 46 years of age admitted with left lower lobe pneumonia shortness of breath and fever History of anoxic encephalopathy paroxysmal sympathetic hyperactivity also has multiple decubitus ulcers Allergies sulfate ion Allergy (Unknown, Verified 06/25/22 18:34) unknown albuterol Adverse Reaction (Unknown, Verified 06/25/22 18:34) elevated hr Home Medications: Baclofen 5 mg PO TID 04/22/22 Gabapentin [Neurontin*] 300 mg PO TID 04/22/22 Polyethylene Glycol 3350 [Miralax] 17 gm PO DAILY 04/22/22 cloNIDine HCL [Clonidine HCl] 0.1 mg PO TID 04/22/22 Ipratropium Neb [Atrovent*] 0.5 mg NEB [id number] amp 04/25/22 Sertraline [Zoloft*] 100 mg PO BEDTIME 04/29/22 Acetaminophen [Tylenol] 650 mg FT Q6H PRN 06/25/22 Acetylcyst 20% Resp [Mucomyst 20% (FOR RESPIRATORY)*] 3 ml IH TID 06/25/22 Carboxymethylcellulose Sodium [Artificial Tears] 15 ml OP QID PRN 06/25/22 Jevity 1.2 Danie Liquid 55 ml FT CONT 06/25/22 clonazePAM [Klonopin] 1 tab PO BID 06/25/22 Acetaminophen with Codeine [Acetaminop-Codeine 120-12 mg/5] 15 ml PO Q8H 07/11/22 Aspirin Chewable [Aspirin Chewable*] 81 mg PO DAILY 07/11/22 Atorvastatin Calcium [Lipitor*] 20 mg PO BEDTIME 07/11/22 Metoprolol Tartrate [Lopressor*] 25 mg PO BID 07/11/22 Rivaroxaban [Xarelto*] 10 mg PO BEDTIME 07/11/22 Collagenase [Santyl Ointment*] 1 appl TOP DAILY tube 07/14/22 Nahun [Nahun*] 1 pkt FT BID 07/14/22 - Past Medical/Surgical History Diabetic: No -: Anoxic Brain Injury, secondary to substance overdose/fentanyl -: Paroxysmal sympathetic hyperactivity -: h/o MRSA -: Tracheostomy dependent -: bilat pontine stroke -: peg tube -: Hysterectomy -: G Tube -: Tracheostomy Psychosocial/ Personal History: Patient lives at [facility]. She has a daughter. - Family History Father Notes: unable to assess r/t pt condition Mother Medical History: Hypertension, Lung disease, Stroke, Cancer Notes: breast ca - Social History Smoking Status: Unknown if ever smoked Alcohol use: No CD- Drugs: No Caffeine use: No Place of Residence: Shelter Review of Systems is unable to be obtained Physical Examination Temp Pulse Resp BP Pulse Ox 98.6 F 122 H 26 H 108/71 87 L 11/24/22 08:00 11/24/22 08:00 11/24/22 08:00 11/24/22 08:00 11/24/22 08:00 General: Unresponsive Respiratory: Clear to auscultation bilaterally, Diminished, Crackles/rales (Crackles in the left lower lobe) Cardiovascular: No edema, Normal pulses, Regular rate/rhythm Laboratory Data (last 24 hrs) 11/23/22 11:26: Phosphorus 3.8, Magnesium 2.0 11/23/22 11:26: PT 11.8, INR 1.07, APTT 28.9 11/23/22 11:26: Sodium 137, Potassium 4.0, BUN 22 H, Creatinine 0.62, Glucose 132 H, Total Bilirubin 0.2, AST 31, ALT 27, Alkaline Phosphatase 134 H 11/23/22 11:26: WBC 13.00 H, Hgb 10.1 L, Hct 32.2 L, Plt Count 379 - Problems (1) Pneumonia Current Visit: No Status: Acute Plan: Patient is 46 years of age with a history of anoxic encephalopathy admitted with left lower lobe pneumonia changed to cefepime and vancomycin labs reviewed white count is elevated oxygenation satisfactory blood cultures have been ordered Qualifiers: Pneumonia type: due to unspecified organism Laterality: bilateral Lung location: unspecified part of lung Qualified Code(s): J18.9 - Pneumonia, unspecified organism
[2022-11-24] MEDS ORDERED: AZITHROMYCIN IV 500 MG in NA CHLORIDE 0.9% 250 ML IVPB SCH (09:00)
[2022-11-24] MEDS ORDERED: CEFTRIAXONE 1,000 MG in NA CHLORIDE 0.9% 50 ML IVPB SCH (09:00)
--- NOTE | 2022-11-24 09:11 | P.CNS ---
Date of Consult: 11/24/22 Chief Complaint: SOB History of Present Illness: Patient is a 46-year-old female with a past medical history significant for anoxic brain injury, Paroxysmal sympathetic hyperactivity, trach dependence with PEG tube who presents with complaint of shortness of breath. Patient is a resident of a longterm. No other signs and symptoms reported. Symptoms are aggravated or relieved by nothing. EMS was called and patient was noted to have a mucous plug. Patient was altered by EMS and patient's breathing improved. Patient was brought to the hospital for medical evaluation ID has been consulted for further IV antibiotics recommendations and management for PNA and decubitus ulcers Allergies sulfate ion Allergy (Unknown, Verified 06/25/22 18:34) unknown albuterol Adverse Reaction (Unknown, Verified 06/25/22 18:34) elevated hr Home Medications: Baclofen 5 mg PO TID 04/22/22 Gabapentin [Neurontin*] 300 mg PO TID 04/22/22 Polyethylene Glycol 3350 [Miralax] 17 gm PO DAILY 04/22/22 cloNIDine HCL [Clonidine HCl] 0.1 mg PO TID 04/22/22 Ipratropium Neb [Atrovent*] 0.5 mg NEB [id number] amp 04/25/22 Sertraline [Zoloft*] 100 mg PO BEDTIME 04/29/22 Acetaminophen [Tylenol] 650 mg FT Q6H PRN 06/25/22 Acetylcyst 20% Resp [Mucomyst 20% (FOR RESPIRATORY)*] 3 ml IH TID 06/25/22 Carboxymethylcellulose Sodium [Artificial Tears] 15 ml OP QID PRN 06/25/22 Jevity 1.2 Danie Liquid 55 ml FT CONT 06/25/22 clonazePAM [Klonopin] 1 tab PO BID 06/25/22 Acetaminophen with Codeine [Acetaminop-Codeine 120-12 mg/5] 15 ml PO Q8H 07/11/22 Aspirin Chewable [Aspirin Chewable*] 81 mg PO DAILY 07/11/22 Atorvastatin Calcium [Lipitor*] 20 mg PO BEDTIME 07/11/22 Metoprolol Tartrate [Lopressor*] 25 mg PO BID 07/11/22 Rivaroxaban [Xarelto*] 10 mg PO BEDTIME 07/11/22 Collagenase [Santyl Ointment*] 1 appl TOP DAILY tube 07/14/22 Nahun [Nahun*] 1 pkt FT BID 07/14/22 - Past Medical/Surgical History Diabetic: No -: Anoxic Brain Injury, secondary to substance overdose/fentanyl -: Paroxysmal sympathetic hyperactivity -: h/o MRSA -: Tracheostomy dependent -: bilat pontine stroke -: peg tube -: Hysterectomy -: G Tube -: Tracheostomy Psychosocial/ Personal History: Patient lives at [facility]. She has a daughter. - Family History Father Notes: unable to assess r/t pt condition Mother Medical History: Hypertension, Lung disease, Stroke, Cancer Notes: breast ca - Social History Smoking Status: Unknown if ever smoked Alcohol use: No CD- Drugs: No Caffeine use: No Place of Residence: Shelter Review of Systems is unable to be obtained (pt none verbal and not following commands. Hx of anoxic brain injury) Physical Examination Temp Pulse Resp BP Pulse Ox 98.6 F 122 H 26 H 108/71 87 L 11/24/22 08:00 11/24/22 08:00 11/24/22 08:00 11/24/22 08:00 11/24/22 08:00 General: Other (pt none verbal and not following commands. Hx of anoxic brain injury) Respiratory: Clear to auscultation bilaterally Cardiovascular: Normal S1 S2 Gastrointestinal: Hypoactive, Other (PEG in place) Musculoskeletal: Other (buttocks stage IV and b/l hips unstageable) Integumentary: Pressure ulcer (buttocks stage IV and b/l hips unstageable) Neurological: Other (pt none verbal and not following commands. Hx of anoxic brain injury) Urinary: Randolph catheter (yellow and cloudy) Laboratory Data (last 24 hrs) 11/23/22 11:26: Phosphorus 3.8, Magnesium 2.0 11/23/22 11:26: PT 11.8, INR 1.07, APTT 28.9 11/23/22 11:26: Sodium 137, Potassium 4.0, BUN 22 H, Creatinine 0.62, Glucose 132 H, Total Bilirubin 0.2, AST 31, ALT 27, Alkaline Phosphatase 134 H 11/23/22 11:26: WBC 13.00 H, Hgb 10.1 L, Hct 32.2 L, Plt Count 379 active medications Acetaminophen (Acetaminophen 650mg/Rect Supp) 650 mg ME Q6H PRN PRN Reason: TEMP > 100.4' F Acetaminophen (Acetaminophen 325 Mg Tablet) 650 mg PO Q6H PRN PRN Reason: TEMP > 100.4' F Albuterol Sulfate (Albuterol 2.5 Mg/3 Ml Neb Ashley) 2.5 mg NEB [id number] [facility] Last Admin: 11/24/22 02:00 Dose: 2.5 mg Aspirin (Aspirin 81 Mg Chewable Tablet) 81 mg PO DAILY [facility] Last Admin: 11/24/22 07:43 Dose: 81 mg Cefepime HCl 1 gm/ Sodium (Chloride) 100 mls @ 200 mls/hr IV Q12HR CHASE; Protocol Vancomycin HCl 1 gm/ Sodium (Chloride) 250 mls @ 150 mls/hr IVPB Q12HR CHASE; Protocol Ipratropium [place] (Ipratropium Brom 0.5mg/2.5ml) 0.5 mg NEB [id number] [facility] Last Admin: 11/24/22 02:00 Dose: 0.5 mg L-Arginine/L-Glutamine/HMB (Nahun Packet) 1 pkt FT BID [facility] Last Admin: 11/24/22 07:44 Dose: 1 pkt Ondansetron HCl (Ondansetron 4 Mg/2 Ml Vial) 4 mg IV Q6HP PRN PRN Reason: NAUSEA / VOMITING Rivaroxaban (Rivaroxaban 10 Mg Tablet) 10 mg PO BEDTIME [facility] Last Admin: 11/23/22 22:08 Dose: 10 mg Sodium Chloride (Flush Normal Saline 10 Ml) 10 ml IV BID [facility] Last Admin: 11/24/22 07:44 Dose: 10 ml Imagings Data: [facility] Single View11/23/2022 FINDINGS: Left lower lobe consolidation Right lung appears clear. Heart is normal size. Tracheostomy tube in place IMPRESSION: Left lower lobe consolidation likely pneumonia - Problems (1) Pneumonia Plan: Cultures: - 11/23 BC: Pending - 11/23 UC: Pending Antibiotics: - Current on IV Cefepime and Vancomycin (/- ) Recommendation: - Continue IV Cefepime and Vancomycin - ID will recommend ABX drug of choice when cultures are available Pneumonia type: due to unspecified organism (2) Decubitus ulcer of sacral region, unstageable Plan: Cultures: - 11/23 Left hip wound: Gram Neg Devan; Culture pending - 11/23 Buttock wound: Culture pending - 11/23 Buttock wound: Culture pending - 11/23 BC: Pending Antibiotics: - Current on IV Cefepime and Vancomycin (3/2- ) Recommendation: - Continue IV Cefepime and Vancomycin for total of 4-6 weeks duration - ID will recommend ABX drug of choice when cultures are available - Offload pressure with pillows when possible (3) UTI (urinary tract infection) Plan: Cultures: - 11/23 UC: Culture pending - 11/23 BC: Pending Antibiotics: - Current on IV Cefepime and Vancomycin (3/2- ) Recommendation: - Continue IV Cefepime and Vancomycin - ID will recommend ABX drug of choice when cultures are available Conclusions/Impression: - Pneumonia: On IV antibiotics - UTI: On IV antibiotics - Pressure Ulcers of left hip and buttocks: On IV antibiotics for total of 4-6 weeks duration - Moderate protein calorie malnutrition - Sepsis - Chronic respiratory failure with hypoxia - History of anoxic brain injury - HLD - History of constipation - Tachycardia - Hypertension - Leukocytosis ID will monitor the patient closely for signs of infection with fever and WBC trends Case has been discussed with Dr. Nuñez N Thank you Dr. Quintero for consultation
[2022-11-24] MEDS: VANCOMYCIN 1 GM in NA CHLORIDE 0.9% 250 ML IVPB SCH ×2 (10:00→20:18)
[2022-11-24] MEDS ORDERED: CEFEPIME 1 GM/VIAL ONE (10:02)
[2022-11-24] MEDS ORDERED: NA CHLORIDE 0.9% 100 ML ONE ×2 (10:04→10:31)
[2022-11-24] MEDS: CEFEPIME 1 GM in NA CHLORIDE 0.9% 100 ML IV SCH ×2 (10:27→20:18)
[2022-11-24] MEDS: RIVAROXABAN 10 MG TABLET PO SCH (20:19)
[2022-11-25] MEDS: IPRATROPIUM BROM 0.5MG/2.5ML NEB SCH ×4 (01:15→19:10)
[2022-11-25] MEDS: ALBUTEROL 2.5 MG/3 ML NEB SOL NEB SCH ×4 (01:15→19:10)
[2022-11-25 06:42] LABS: Potassium 3.2 mmol/L (3.5-5.1)
[2022-11-25] MEDS: JEVITY 1.2 CAL LIQUID 1,000 ML BOT FT SCH (07:27)
[2022-11-25] MEDS: JUVEN PACKET FT SCH ×2 (09:00→20:59)
[2022-11-25] MEDS ORDERED: POTASSIUM 25 MEQ EFFERV TAB PO ONE (09:00)
[2022-11-25 09:41] LABS: Absolute Lymphocytes (CBC) 0.5 K/uL (0.7-4.9); Hematocrit 28.3 % (36.0-45.0); MCV 75.9 fL (80-100); MPV 7.8 fL (7.6-11.3); RBC Red Blood Cell Count 3.74 M/uL (3.86-4.86)
[2022-11-25] MEDS: ASPIRIN 81 MG CHEWABLE TABLET PO SCH (10:05)
[2022-11-25] MEDS: CEFEPIME 1 GM in NA CHLORIDE 0.9% 100 ML IV SCH ×2 (10:06→20:58)
[2022-11-25] MEDS: VANCOMYCIN 1 GM in NA CHLORIDE 0.9% 250 ML IVPB SCH ×2 (10:06→20:58)
--- NOTE | 2022-11-25 12:07 | P.PN ---
Subjective Date of Service: 11/25/22 Chief Complaint: Left lower lobe pneumonia Patient's condition is stable seen by ID wound cultures are positive for gram- negative rods ID pending Review of Systems is unable to be obtained Physical Examination - Vital Signs Temperature: 99.2 F Blood Pressure: 126/70 Pulse: 114 Respirations: 17 Pulse Ox (%): 98 - Physical Exam General: Alert, Mild distress Respiratory: Clear to auscultation bilaterally, Normal air movement Cardiovascular: No edema, Regular rate/rhythm, Normal S1 S2 Assessment And Plan - Current Problems (Diagnosis) (1) Pneumonia Onset Date: ~11/24/22 Current Visit: No Status: Acute Plan: Patient admitted with left lower lobe pneumonia sputum cultures have been ordered patient is on Vanco and cefepime oxygenation satisfactory 98% on 5 L Qualifiers: Pneumonia type: due to unspecified organism Laterality: bilateral Lung location: unspecified part of lung Qualified Code(s): J18.9 - Pneumonia, unspecified organism (2) Decubitus skin ulcer Current Visit: Yes Status: Acute (3) Decubitus ulcer of hip, left, unstageable Current Visit: Yes Status: Acute Plan: Patient has unstageable ulcers on both her hips (4) Decubitus ulcer of hip, right, unstageable Current Visit: Yes Status: Acute Physician Review: Patient Assessed, Agree with Above Assessment and Plan
--- NOTE | 2022-11-25 17:44 | PN ---
Subjective: Opens eyes spontaneously. Objective: Vital Signs: Reviewed. Lungs: Basal crackles. Heart: S1, S2. Regular. Abdomen: Soft, nontender. Bowel sounds present. Extremity: Muscle wasting noted. Laboratory Data: Reviewed. Assessment And Plan: Multiple wounds with gram-negative rods culture is growing. Pressure wounds. Urosepsis secondary to gram-negative rods. Continue current treatment. Prognosis guarded. Consider Medihoney with alginate and wound VAC. Anemia of chronic disease. Protein-calorie malnourishment. We will follow patient as needed. NF/MODL Voice ID: [id number] Report ID: [id number]
[2022-11-25] MEDS: RIVAROXABAN 10 MG TABLET PO SCH (20:59)
[2022-11-26] MEDS: IPRATROPIUM BROM 0.5MG/2.5ML NEB SCH ×2 (01:20→08:09)
[2022-11-26] MEDS: ALBUTEROL 2.5 MG/3 ML NEB SOL NEB SCH ×2 (01:20→08:09)
[2022-11-26] MEDS: JEVITY 1.2 CAL LIQUID 1,000 ML BOT FT SCH (02:24)
[2022-11-26 06:19] LABS: Potassium 3.3 mmol/L (3.5-5.1)
[2022-11-26] MEDS ORDERED: ALBUTEROL 2.5 MG/3 ML NEB SOL NEB PRN (08:45)
--- NOTE | 2022-11-26 08:46 | P.PN ---
Subjective Date of Service: 11/26/22 Chief Complaint: Left lower lobe pneumonia/multiple decubitus ulcers No change in patient's condition dynamically stable sputum cultures not done Pseudomonas isolated from the wounds some secretions Review of Systems is unable to be obtained Physical Examination - Vital Signs Temperature: 97.9 F Blood Pressure: 107/65 Pulse: 99 Respirations: 16 Pulse Ox (%): 97 - Physical Exam General: Alert, Unresponsive Respiratory: Clear to auscultation bilaterally, Diminished Cardiovascular: No edema, Regular rate/rhythm Assessment And Plan - Current Problems (Diagnosis) (1) Pneumonia Onset Date: ~11/24/22 Current Visit: No Status: Acute Plan: Patient is improving oxygenation satisfactory titrate his sat down to 90% repeat chest x-ray ordered White count mildly elevated replace potassium we will also ordered a scope's scopolamine patch for secretions Qualifiers: Pneumonia type: due to unspecified organism Laterality: bilateral Lung location: unspecified part of lung Qualified Code(s): J18.9 - Pneumonia, unspecified organism (2) Decubitus skin ulcer Current Visit: Yes Status: Acute Plan: Multiple decubitus ulcers seen by ID will DC vancomycin continue with cefepime discussed with ID need wound vacs and Medihoney with alginate (3) Decubitus ulcer of hip, left, unstageable Current Visit: Yes Status: Acute Plan: Patient has unstageable ulcers on both her hips (4) Decubitus ulcer of hip, right, unstageable Current Visit: Yes Status: Acute Physician Review: Patient Assessed, Agree with Above Assessment and Plan
[2022-11-26] MEDS ORDERED: SCOPOLAMINE HYDROBROMIDE PATCH TD ONE (09:00)
[2022-11-26] MEDS: CEFEPIME 2 GM in NA CHLORIDE 0.9% 100 ML IV SCH ×2 (09:00→16:17)
[2022-11-26] MEDS ORDERED: POTASSIUM 25 MEQ EFFERV TAB PO ONE (09:00)
[2022-11-26] MEDS: ASPIRIN 81 MG CHEWABLE TABLET PO SCH (09:57)
[2022-11-26] MEDS: POTASSIUM 25 MEQ EFFERV TAB PO SCH (09:58)
[2022-11-26] MEDS: JUVEN PACKET FT SCH ×2 (10:04→21:00)
--- NOTE | 2022-11-26 10:33 | RAD REPORT ---
EXAM DES[facility] 10:13 am CLINICAL HISTORY: Pneumonia COMPARISON: Chest Single View dated 11/23/2022; Chest Single View dated 07/22/2022; Chest Single View dated 07/14/2022; Chest Single View dated 07/11/2022 TECHNIQUE: Portable AP view of the chest. FINDINGS: Tracheostomy tube in place. Partial improvement of aeration in the left base. Layering sma ll left-sided diffusion, new. New patchy right basilar airspace opacification. No pneumothorax. The c ardiomediastinal contours are unremarkable. IMPRESSION: Partial improvement of aeration in the left lung base, however there is new patchy right basilar airspace opacity, concerning for progressive pneumonia. New small left pleural effusion.
[2022-11-26] MEDS: RIVAROXABAN 10 MG TABLET PO SCH (21:08)
[2022-11-27] MEDS: CEFEPIME 2 GM in NA CHLORIDE 0.9% 100 ML IV SCH ×3 (00:32→17:32)
[2022-11-27] MEDS: JEVITY 1.2 CAL LIQUID 1,000 ML BOT FT SCH (00:33)
[2022-11-27 06:27] LABS: Potassium 4.7 mmol/L (3.5-5.1)
[2022-11-27] MEDS: ASPIRIN 81 MG CHEWABLE TABLET PO SCH (09:13)
[2022-11-27] MEDS: POTASSIUM 25 MEQ EFFERV TAB PO SCH (09:13)
[2022-11-27] MEDS: JUVEN PACKET FT SCH ×2 (09:14→20:49)
--- NOTE | 2022-11-27 09:58 | P.PN ---
Subjective Date of Service: 11/27/22 Chief Complaint: Left lower lobe pneumonia/multiple decubitus ulcers Patient's condition is stable no change to pill organisms isolated Review of Systems is unable to be obtained Physical Examination - Vital Signs Temperature: 98.5 F Blood Pressure: 112/66 Pulse: 100 Respirations: 18 Pulse Ox (%): 99 - Physical Exam General: Alert, Unresponsive Respiratory: Clear to auscultation bilaterally, Diminished, Dull Cardiovascular: Regular rate/rhythm, Normal S1 S2 - Studies Microbiology Data (last 24 hrs): 11/23/22 11:26 Catheterized Urine [place] Count - Final >100,000 CFU/ML. 11/23/22 11:26 Catheterized Urine - Final Meth Resistant Staph Aureus Pseudomonas Aeruginosa Assessment And Plan - Current Problems (Diagnosis) (1) Pneumonia Onset Date: ~11/24/22 Current Visit: No Status: Acute Plan: Patient is improving sputum culture is pending x-ray shows an improvement oxygenation stable Qualifiers: Pneumonia type: due to unspecified organism Laterality: bilateral Lung location: unspecified part of lung Qualified Code(s): J18.9 - Pneumonia, unspecified organism (2) Decubitus skin ulcer Current Visit: Yes Status: Acute Plan: Multiple decubitus ulcers Pseudomonas isolated continue with full dose 4 weeks of meropenemNeed a PICC line discussed with ID also has MRSA in the urine start on doxycycline wound vacs and alginate treatment as per ID Qualifiers: Laterality: unspecified laterality (3) Decubitus ulcer of hip, left, unstageable Current Visit: Yes Status: Acute Plan: Patient has unstageable ulcers on both her hips (4) Decubitus ulcer of hip, right, unstageable Current Visit: Yes Status: Acute Physician Review: Patient Assessed, Agree with Above Assessment and Plan
[2022-11-27] MEDS: DOXYCYCLINE 100 MG CAP PO SCH ×2 (11:46→20:49)
[2022-11-27] MEDS: MEDIHONEY 44 ML TOPICAL TUBE TOP SCH (11:51)
--- NOTE | 2022-11-27 17:06 | RAD REPORT ---
EXAM DESCRIPTION: RAD - Chest Single View - 11/27/2022 4:55 pm CLINICAL HISTORY: Device placement PICC line placement IMPRESSION: PICC line ascends the right neck. The tip is not included in the field of view and is either in the upper neck or higher
--- NOTE | 2022-11-27 17:08 | RAD REPORT ---
EXAM DESCRIPTION: RAD - Chest Single View - 11/27/2022 4:55 pm CLINICAL HISTORY: Device placement PICC line placement IMPRESSION: PICC line with its tip in the proximal atrium approximately 1 centimeter
[2022-11-27] MEDS: RIVAROXABAN 10 MG TABLET PO SCH (20:49)
[2022-11-28] MEDS: JEVITY 1.2 CAL LIQUID 1,000 ML BOT FT SCH (04:47)
--- NOTE | 2022-11-28 07:39 | P.PN ---
Subjective Date of Service: 11/28/22 Chief Complaint: Left lower lobe pneumonia/multiple decubitus ulcers Patient is improving condition stable no new change Review of Systems is unable to be obtained Physical Examination - Vital Signs Temperature: 98.2 F Blood Pressure: 96/66 Pulse: 101 Respirations: 18 Pulse Ox (%): 99 - Physical Exam General: Alert, Unresponsive Respiratory: Clear to auscultation bilaterally Cardiovascular: No edema, Regular rate/rhythm - Studies Microbiology Data (last 24 hrs): 11/23/22 11:26 Catheterized Urine [place] Count - Final >100,000 CFU/ML. 11/23/22 11:26 Catheterized Urine - Final Meth Resistant Staph Aureus Pseudomonas Aeruginosa Assessment And Plan - Current Problems (Diagnosis) (1) Pneumonia Onset Date: ~11/24/22 Current Visit: No Status: Acute Plan: Pneumonia improving sputum cultures pending Pseudomonas and MRSA isolated patient is on cefepime also MRSA sensitive to doxycycline Qualifiers: Pneumonia type: due to unspecified organism Laterality: bilateral Lung location: unspecified part of lung Qualified Code(s): J18.9 - Pneumonia, unspecified organism (2) Decubitus skin ulcer Current Visit: Yes Status: Acute Plan: Multiple decubitus ulcers Pseudomonas isolated continue with full dose 4 weeks of meropenemNeed a PICC line discussed with ID also has MRSA in the urine start on doxycycline wound vacs and alginate treatment as per ID Qualifiers: Laterality: unspecified laterality (3) Decubitus ulcer of hip, left, unstageable Current Visit: Yes Status: Acute Plan: Patient has unstageable ulcers on both her hips (4) Decubitus ulcer of hip, right, unstageable Current Visit: Yes Status: Acute (5) Anemia Current Visit: Yes Status: Acute Plan: Patient appears to be developing a microcytic anemia most likely iron deficient due to recurrent blood draws and hospitalizations of oral iron studies and IV iron Qualifiers: Anemia type: iron deficiency Physician Review: Patient Assessed, Agree with Above Assessment and Plan
--- NOTE | 2022-11-28 08:47 | P.PN ---
Subjective Date of Service: 11/28/22 Chief Complaint: Left lower lobe pneumonia/multiple decubitus ulcers Patient lying in bed with no major event upon examination Physical Examination - Vital Signs Temperature: 98.2 F Blood Pressure: 108/70 Pulse: 114 Respirations: 34 Pulse Ox (%): 100 - Physical Exam General: Other (pt none verbal and not following commands. Hx of anoxic brain injury) Respiratory: Clear to auscultation bilaterally, Other (5 L NC) Cardiovascular: No edema, Normal S1 S2 Gastrointestinal: Hypoactive, Other (PEG in place) Musculoskeletal: Other (buttocks stage IV and b/l hips unstageable) Integumentary: Pressure ulcer (buttocks stage IV and b/l hips unstageable) Neurological: Other (pt none verbal and not following commands. Hx of anoxic bra in injury) Urinary: Randolph catheter (Yellow and clear) - Studies current medications Acetaminophen (Acetaminophen 650mg/Rect Supp) 650 mg NM Q6H PRN PRN Reason: TEMP > 100.4' F Acetaminophen (Acetaminophen 325 Mg Tablet) 650 mg PO Q6H PRN PRN Reason: TEMP > 100.4' F Albuterol Sulfate (Albuterol 2.5 Mg/3 Ml Neb Ashley) 2.5 mg NEB [id number] PRN PRN Reason: SHORTNESS OF BREATH Aspirin (Aspirin 81 Mg Chewable Tablet) 81 mg PO DAILY [facility] Last Admin: 11/27/22 09:13 Dose: 81 mg Doxycycline Monohydrate (Doxycycline 100 Mg Cap) 100 mg PO BID [facility]; Protocol Last Admin: 11/27/22 20:49 Dose: 100 mg Emollient Gel (Medihoney 44 Ml Topical Tube) 1 appl TOP DAILY [facility] Last Admin: 11/27/22 11:51 Dose: 1 jean Cefepime HCl 2 gm/ Sodium (Chloride) 100 mls @ 200 mls/hr IV Q8HR CHASE; Protocol Last Admin: 11/28/22 00:00 Dose: 100 mls Ferric Sodium Gluconate Complex 250 mg/ Sodium Chloride 270 mls @ 135 mls/hr IV DAILY [facility] Stop: 12/01/22 09:01 L-Arginine/L-Glutamine/HMB (Nahun Packet) 1 pkt FT BID [facility] Last Admin: 11/27/22 20:49 Dose: 1 pkt Ondansetron HCl (Ondansetron 4 Mg/2 Ml Vial) 4 mg IV Q6HP PRN PRN Reason: NAUSEA / VOMITING Potassium Bicarbonate (Potassium 25 Meq Efferv Tab) 25 meq PO DAILY [facility] Last Admin: 11/27/22 09:13 Dose: 25 meq Rivaroxaban (Rivaroxaban 10 Mg Tablet) 10 mg PO BEDTIME [facility] Last Admin: 11/27/22 20:49 Dose: 10 mg Sodium Chloride (Flush Normal Saline 10 Ml) 10 ml IV BID [facility] Last Admin: 11/27/22 20:49 Dose: 10 ml Microbiology Data (last 24 hrs): Microbiology 11/23/22 11:26 Catheterized Urine [place] Count - Final >100,000 CFU/ML. 11/23/22 11:26 Catheterized Urine - Final Meth Resistant Staph Aureus Pseudomonas Aeruginosa 11/23/22 11:01 Blood - Blood Aerobic Blood Culture - Preliminary No growth in 24 hours. 11/23/22 11:01 Blood - Blood Anaerobic Blood Culture - Preliminary No growth in 24 hours. 11/23/22 11:26 Blood - Blood Aerobic Blood Culture - Preliminary No growth in 24 hours. 11/23/22 11:26 Blood - Blood Anaerobic Blood Culture - Preliminary No growth in 24 hours. Assessment And Plan - Current Problems (Diagnosis) (1) Pneumonia Plan: Cultures: - 11/26 Sputum: Gram Neg Rods; Gram Pos Cocci in prs & chs; Gram Pos Cocci in clusters - 11/23 BC: Negative Antibiotics: - Had Vancomycin 3/2 to 11/26 - Dr. Conde added Doxycycline PO on (11/26- ) - Current on IV Cefepime (11/24- ) and PO Doxycycline (11/26- ) Recommendation: - Continue Cefepime and Doxycycline Qualifiers: Pneumonia type: due to unspecified organism Laterality: bilateral Lung location: unspecified part of lung Qualified Code(s): J18.9 - Pneumonia, unspecified organism (2) Decubitus ulcer of sacral region, unstageable Plan: Cultures: - 11/23 Buttock wound: Pseudomonas aeruginosa, Susceptible to Cefepime - 11/23 BC: Negative Antibiotics: - Had Vancomycin 3/2 to 11/26 - Dr. Conde added Doxycycline PO on (11/26- ) - Current on IV Cefepime (3/2- ) and PO Doxycycline (11/26- ) Recommendation: - Continue IV Cefepime for total of 6 weeks duration - Offload pressure with pillows when possible (3) Decubitus ulcer of hip, left, unstageable Plan: Cultures: - 11/23 Left hip wound: Pseudomonas aeruginosa and Acinetobacter Sunitha/Haem, Susceptible to Cefepime - 11/23 BC: Negative Antibiotics: - Had Vancomycin 11/24 to 11/26 - Dr. Conde added Doxycycline PO on (11/26- ) - Current on IV Cefepime (11/24- ) and PO Doxycycline (11/26- ) Recommendation: - Continue IV Cefepime for total of 6 weeks duration - Offload pressure with pillows when possible (4) UTI (urinary tract infection) Plan: Cultures: - 11/23 UC: Meth Resistant Staph Aureus (MRSA) and Pseudomonas aeruginosa, Susceptible to Cefepime - 11/23 BC: Negative Antibiotics: - Had Vancomycin 11/24 to 11/26 - Dr. Conde added Doxycycline PO on (11/26- ) - Current on IV Cefepime (11/24- ) and PO Doxycycline (11/26- ) Recommendation: - Continue PO Doxycycline - Plan - Pneumonia: Continue IV and PO antibiotics - UTI: Continue PO antibiotics - Pressure Ulcers of left hip and buttocks: On IV antibiotics for total of 6 weeks duration - Moderate protein calorie malnutrition - Sepsis - Chronic respiratory failure with hypoxia - History of anoxic brain injury - HLD - History of constipation - Tachycardia - Hypertension - Leukocytosis ID will monitor the patient closely for signs of infection with fever and WBC trends Case has been discussed with Dr. Nuñez N Physician Review: Patient Assessed, Agree with Above Assessment and Plan
[2022-11-28] MEDS: ASPIRIN 81 MG CHEWABLE TABLET PO SCH (09:31)
[2022-11-28] MEDS: SOD FERRIC GLUC COMPLX/SUCROSE 250 MG in NA CHLORIDE 0.9% 250 ML IV SCH (09:31)
[2022-11-28] MEDS: DOXYCYCLINE 100 MG CAP PO SCH ×2 (09:32→21:46)
[2022-11-28] MEDS: CEFEPIME 2 GM in NA CHLORIDE 0.9% 100 ML IV SCH ×4 (09:32→16:45)
[2022-11-28] MEDS: POTASSIUM 25 MEQ EFFERV TAB PO SCH (09:32)
[2022-11-28] MEDS: MEDIHONEY 44 ML TOPICAL TUBE TOP SCH (09:34)
[2022-11-28] MEDS: JUVEN PACKET FT SCH ×2 (09:34→21:00)
[2022-11-28 09:35] LABS: Ferritin 209.5 ng/mL (8-388)
[2022-11-28] MEDS: RIVAROXABAN 10 MG TABLET PO SCH (21:46)
[2022-11-29] MEDS: CEFEPIME 2 GM in NA CHLORIDE 0.9% 100 ML IV SCH (00:49)
[2022-11-29 08:10] LABS: Potassium 4.3 mmol/L (3.5-5.1)
--- NOTE | 2022-11-29 08:11 | P.PN ---
Subjective Date of Service: 11/29/22 Chief Complaint: Left lower lobe pneumonia/multiple decubitus ulcers Patient lying in bed with no major event upon examination Physical Examination - Vital Signs Temperature: 97.2 F Blood Pressure: 105/72 Pulse: 100 Respirations: 20 Pulse Ox (%): 98 - Physical Exam General: Other (pt none verbal and not following commands. Hx of anoxic brain injury) Respiratory: Other (5 L NC and trach in place) Cardiovascular: No edema Gastrointestinal: Hypoactive (PEG in place) Musculoskeletal: Other (buttocks stage IV and b/l hips unstageable) Integumentary: Pressure ulcer (buttocks stage IV and b/l hips unstageable) Neurological: Other (pt none verbal and not following commands. Hx of anoxic brain injury) - Studies active medications Acetaminophen (Acetaminophen 650mg/Rect Supp) 650 mg AL Q6H PRN PRN Reason: TEMP > 100.4' F Acetaminophen (Acetaminophen 325 Mg Tablet) 650 mg PO Q6H PRN PRN Reason: TEMP > 100.4' F Albuterol Sulfate (Albuterol 2.5 Mg/3 Ml Neb Ashley) 2.5 mg NEB [id number] PRN PRN Reason: SHORTNESS OF BREATH Aspirin (Aspirin 81 Mg Chewable Tablet) 81 mg PO DAILY [facility] Last Admin: 11/28/22 09:31 Dose: 81 mg Doxycycline Monohydrate (Doxycycline 100 Mg Cap) 100 mg PO BID [facility]; Protocol Last Admin: 11/28/22 21:46 Dose: 100 mg Emollient Gel (Medihoney 44 Ml Topical Tube) 1 appl TOP DAILY [facility] Last Admin: 11/28/22 09:34 Dose: 1 jean Cefepime HCl 2 gm/ Sodium (Chloride) 100 mls @ 200 mls/hr IV Q8HR [facility]; Protocol Last Admin: 11/29/22 00:49 Dose: 100 mls Ferric Sodium Gluconate Complex 250 mg/ Sodium Chloride 270 mls @ 135 mls/hr IV DAILY [facility] Stop: 12/01/22 09:01 Last Admin: 11/28/22 09:31 Dose: 270 mls L-Arginine/L-Glutamine/HMB (Nahun Packet) 1 pkt FT BID [facility] Last Admin: 11/28/22 21:00 Dose: 1 pkt Ondansetron HCl (Ondansetron 4 Mg/2 Ml Vial) 4 mg IV Q6HP PRN PRN Reason: NAUSEA / VOMITING Potassium Bicarbonate (Potassium 25 Meq Efferv Tab) 25 meq PO DAILY [facility] Last Admin: 11/28/22 09:32 Dose: 25 meq Rivaroxaban (Rivaroxaban 10 Mg Tablet) 10 mg PO BEDTIME [facility] Last Admin: 11/28/22 21:46 Dose: 10 mg Sodium Chloride (Flush Normal Saline 10 Ml) 10 ml IV BID [facility] Last Admin: 11/28/22 21:46 Dose: 10 ml Microbiology Data (last 24 hrs): Microbiology 11/23/22 11:01 Blood - Blood Aerobic Blood Culture - Final No growth in 5 days. 11/23/22 11:01 Blood - Blood Anaerobic Blood Culture - Final No growth in 5 days. 11/23/22 11:26 Blood - Blood Aerobic Blood Culture - Final No growth in 5 days. 11/23/22 11:26 Blood - Blood Anaerobic Blood Culture - Final No growth in 5 days. 11/23/22 11:26 Catheterized Urine [place] Count - Final >100,000 CFU/ML. 11/23/22 11:26 Catheterized Urine - Final Meth Resistant Staph Aureus Pseudomonas Aeruginosa Assessment And Plan - Current Problems (Diagnosis) (1) Pneumonia Plan: Cultures: - 11/26 Sputum: ESBL-Klebsiella Oxytoca, Susceptible to Meropenem and Gentamycin and Pseudomonas Aeruginosa, Susceptible to Ceftazidime, Gentamycin ,and Tobramycin - 11/23 BC: Negative Antibiotics: - Had Vancomycin 3/2 to 34 - Dr. Conde added Doxycycline PO on (11/26- ) - Current on IV Cefepime (3/2- ) and PO Doxycycline (/4- ) Recommendation: - Continue Cefepime and Doxycycline - 11/26 Sputum: ESBL-Klebsiella Oxytoca, Possible colonization. ABX on hold (2) Decubitus ulcer of sacral region, unstageable Plan: Cultures: - 11/23 Buttock wound: Pseudomonas aeruginosa, Susceptible to Cefepime - 11/23 BC: Negative Antibiotics: - Had Vancomycin 3/2 to 34 - Dr. Conde added Doxycycline PO on (11/26- ) - Current on IV Cefepime (3/2- ) and PO Doxycycline (3/4- ) Recommendation: - Continue IV Cefepime for total of 6 weeks duration - Offload pressure with pillows when possible (3) Decubitus ulcer of hip, left, unstageable Plan: Cultures: - 11/23 Left hip wound: Pseudomonas aeruginosa and Acinetobacter Sunitha/Haem, Susceptible to Cefepime - 11/23 BC: Negative Antibiotics: - Had Vancomycin 11/24 to 11/26 - Dr. Conde added Doxycycline PO on (11/26- ) - Current on IV Cefepime (11/24- ) and PO Doxycycline (11/26- ) Recommendation: - Continue IV Cefepime for total of 6 weeks duration - Offload pressure with pillows when possible (4) UTI (urinary tract infection) Plan: Cultures: - 11/23 UC: Meth Resistant Staph Aureus (MRSA) and Pseudomonas aeruginosa, Susceptible to Cefepime - 11/23 BC: Negative Antibiotics: - Had Vancomycin 11/24 to 11/26 - Dr. Conde added Doxycycline PO on (11/26- ) - Current on IV Cefepime (11/24- ) and PO Doxycycline (11/26- ) Recommendation: - Continue PO Doxycycline - Plan - Pneumonia: Continue IV and PO antibiotics - UTI: Continue PO antibiotics - Pressure Ulcers of left hip and buttocks: On IV antibiotics for total of 6 weeks duration - Moderate protein calorie malnutrition - Sepsis - Chronic respiratory failure with hypoxia - History of anoxic brain injury - HLD - History of constipation - Tachycardia - Hypertension - Leukocytosis ID will monitor the patient closely for signs of infection with fever and WBC trends Case has been discussed with Clifford Hunt Physician Review: Patient Assessed, Agree with Above Assessment and Plan
[2022-11-29] MEDS: JUVEN PACKET FT SCH ×2 (09:00→20:33)
[2022-11-29] MEDS ORDERED: CEFTAZIDIME 1 GM VIAL IV SCH (09:00)
[2022-11-29] MEDS: SOD FERRIC GLUC COMPLX/SUCROSE 250 MG in NA CHLORIDE 0.9% 250 ML IV SCH (10:00)
[2022-11-29] MEDS: POTASSIUM 25 MEQ EFFERV TAB PO SCH (10:01)
[2022-11-29] MEDS: DOXYCYCLINE 100 MG CAP PO SCH ×2 (10:01→20:33)
[2022-11-29] MEDS: MEDIHONEY 44 ML TOPICAL TUBE TOP SCH (10:01)
[2022-11-29] MEDS: ASPIRIN 81 MG CHEWABLE TABLET PO SCH (10:01)
[2022-11-29] MEDS: CEFTAZIDIME 1 GM in NA CHLORIDE 0.9% 50 ML IV SCH ×2 (12:16→16:17)
--- NOTE | 2022-11-29 13:54 | P.PN ---
Subjective Date of Service: 11/29/22 Chief Complaint: Left lower lobe pneumonia/multiple decubitus ulcers Patient is nonverbal and cannot provide any history. No issues overnight. No recorded fever. She is tolerating tube feeding. Physical Examination - Vital Signs Temperature: 98.3 F Blood Pressure: 104/74 Pulse: 97 Respirations: 15 Pulse Ox (%): 97 - Physical Exam General: In no apparent distress, Other (Awake, nonverbal) HEENT: Mucous membr. moist/pink Neck: JVD not distended Respiratory: Clear to auscultation bilaterally, Normal air movement Cardiovascular: No edema, Normal S1 S2, Other (Tachycardia) Capillary refill: <2 Seconds Gastrointestinal: Soft and benign, Non-distended Musculoskeletal: Other (Contracted lower extremities) Integumentary: Other (Bilateral hip decubitus ulcers) Neurological: Other (Quadriplegia) - Studies Microbiology Data (last 24 hrs): 11/23/22 11:01 Blood - Blood Aerobic Blood Culture - Final No growth in 5 days. 11/23/22 11:01 Blood - Blood Anaerobic Blood Culture - Final No growth in 5 days. 11/23/22 11:26 Blood - Blood Aerobic Blood Culture - Final No growth in 5 days. 11/23/22 11:26 Blood - Blood Anaerobic Blood Culture - Final No growth in 5 days. Assessment And Plan - Current Problems (Diagnosis) (1) Decubitus ulcer of hip, left, unstageable Current Visit: Yes Status: Acute (2) Decubitus ulcer of hip, right, unstageable Current Visit: Yes Status: Acute (3) Decubitus ulcer of sacral region, unstageable Current Visit: No Status: Acute (4) Pneumonia Onset Date: ~11/24/22 Current Visit: No Status: Acute Qualifiers: Pneumonia type: due to unspecified organism Laterality: bilateral Lung location: unspecified part of lung Qualified Code(s): J18.9 - Pneumonia, unspecified organism (5) Quadriplegia Current Visit: Yes Status: Acute (6) UTI (urinary tract infection) Current Visit: Yes Status: Acute - Plan Currently stable. Patient with multiple organisms growing in the sputum, MRSA in the urine Patient seen by infectious disease who recommended 6 weeks of antibiotics-IV ceftazidime and oral doxycycline. Continue tube feeding. Monitor residuals. Continue local wound care. Waiting for wound vac to be applied then discharge to snf to complete antibiotic therapy.
[2022-11-29] MEDS: JEVITY 1.2 CAL LIQUID 1,000 ML BOT FT SCH (16:17)
[2022-11-29] MEDS: RIVAROXABAN 10 MG TABLET PO SCH (20:33)
[2022-11-30] MEDS: CEFTAZIDIME 1 GM in NA CHLORIDE 0.9% 50 ML IV SCH ×3 (00:24→16:37)
[2022-11-30 05:30] LABS: Absolute Lymphocytes (CBC) 1.4 K/uL (0.7-4.9); Hematocrit 30.3 % (36.0-45.0); Lymphocytes % 13.9 % (15.3-44.8); MCV 75.6 fL (80-100); RBC Red Blood Cell Count 4.01 M/uL (3.86-4.86)
[2022-11-30 05:40] LABS: Potassium 3.9 mmol/L (3.5-5.1)
[2022-11-30] MEDS: MEDIHONEY 44 ML TOPICAL TUBE TOP SCH (08:49)
[2022-11-30] MEDS: JUVEN PACKET FT SCH ×2 (08:49→21:38)
[2022-11-30] MEDS: POTASSIUM 25 MEQ EFFERV TAB PO SCH (08:49)
[2022-11-30] MEDS: SOD FERRIC GLUC COMPLX/SUCROSE 250 MG in NA CHLORIDE 0.9% 250 ML IV SCH (08:49)
[2022-11-30] MEDS: ASPIRIN 81 MG CHEWABLE TABLET PO SCH (08:49)
[2022-11-30] MEDS: JEVITY 1.2 CAL LIQUID 1,000 ML BOT FT SCH (08:50)
[2022-11-30] MEDS: DOXYCYCLINE 100 MG CAP PO SCH ×2 (08:50→21:38)
[2022-11-30] MEDS ORDERED: POTASSIUM 25 MEQ EFFERV TAB PO ONE (09:00)
--- NOTE | 2022-11-30 15:39 | P.PN ---
Subjective Date of Service: 11/30/22 Chief Complaint: Left lower lobe pneumonia/multiple decubitus ulcers No issues overnight. No recorded fever. Physical Examination - Vital Signs Temperature: 97.0 F Blood Pressure: 125/81 Pulse: 113 Respirations: 18 Pulse Ox (%): 98 Assessment And Plan - Current Problems (Diagnosis) (1) Decubitus ulcer of hip, left, unstageable Current Visit: Yes Status: Acute (2) Decubitus ulcer of hip, right, unstageable Current Visit: Yes Status: Acute (3) Decubitus ulcer of sacral region, unstageable Current Visit: No Status: Acute (4) Pneumonia Onset Date: ~11/24/22 Current Visit: No Status: Acute Qualifiers: Pneumonia type: due to unspecified organism Laterality: bilateral Lung location: unspecified part of lung Qualified Code(s): J18.9 - Pneumonia, unspecified organism (5) Quadriplegia Current Visit: Yes Status: Acute (6) UTI (urinary tract infection) Current Visit: Yes Status: Acute - Plan Currently stable. Patient with multiple organisms growing in the sputum including MRSA and Pseudomonas, also MRSA in the urine Patient seen by infectious disease who recommended 6 weeks of antibiotics-IV ceftazidime and oral doxycycline. Continue tube feeding. Monitor residuals. Continue local wound care. Discharge back to senior care pending wound VAC placement. Chest physiotherapy Tracheal suctioning as needed.
[2022-11-30] MEDS: RIVAROXABAN 10 MG TABLET PO SCH (21:38)
[2022-12-01] MEDS: CEFTAZIDIME 1 GM in NA CHLORIDE 0.9% 50 ML IV SCH ×3 (00:52→18:17)
[2022-12-01] MEDS: JEVITY 1.2 CAL LIQUID 1,000 ML BOT FT SCH ×2 (03:52→22:22)
[2022-12-01 04:41] LABS: Potassium 4.1 mmol/L (3.5-5.1)
[2022-12-01] MEDS: JUVEN PACKET FT SCH ×2 (09:00→22:14)
[2022-12-01] MEDS: MEDIHONEY 44 ML TOPICAL TUBE TOP SCH (09:00)
[2022-12-01] MEDS: SOD FERRIC GLUC COMPLX/SUCROSE 250 MG in NA CHLORIDE 0.9% 250 ML IV SCH (10:41)
[2022-12-01] MEDS: DOXYCYCLINE 100 MG CAP PO SCH ×2 (10:42→22:14)
[2022-12-01] MEDS: POTASSIUM 25 MEQ EFFERV TAB PO SCH (10:42)
[2022-12-01] MEDS: ASPIRIN 81 MG CHEWABLE TABLET PO SCH (10:42)
--- NOTE | 2022-12-01 10:53 | P.PN ---
Subjective Date of Service: 12/01/22 Chief Complaint: Left lower lobe pneumonia/multiple decubitus ulcers Patient lying in bed with no major event upon examination Physical Examination - Vital Signs Temperature: 98.3 F Blood Pressure: 118/80 Pulse: 121 Respirations: 16 Pulse Ox (%): 96 - Physical Exam General: Other (pt none verbal and not following commands. Hx of anoxic brain injury) Respiratory: Other (5 L NC and trach in place) Cardiovascular: No edema, Normal S1 S2 Gastrointestinal: Hypoactive, Other (PEG in place) Musculoskeletal: Other (buttocks stage IV and b/l hips unstageable) Integumentary: Pressure ulcer (buttocks stage IV and b/l hips unstageable) Neurological: Other (pt none verbal and not following commands. Hx of anoxic brain injury) - Studies active medications Acetaminophen (Acetaminophen 650mg/Rect Supp) 650 mg MO Q6H PRN PRN Reason: TEMP > 100.4' F Acetaminophen (Acetaminophen 325 Mg Tablet) 650 mg PO Q6H PRN PRN Reason: TEMP > 100.4' F Albuterol Sulfate (Albuterol 2.5 Mg/3 Ml Neb Ashley) 2.5 mg NEB [id number] PRN PRN Reason: SHORTNESS OF BREATH Aspirin (Aspirin 81 Mg Chewable Tablet) 81 mg PO DAILY [facility] Last Admin: 12/01/22 10:42 Dose: 81 mg Doxycycline Monohydrate (Doxycycline 100 Mg Cap) 100 mg PO BID [facility]; Protocol Last Admin: 12/01/22 10:42 Dose: 100 mg Emollient Gel (Medihoney 44 Ml Topical Tube) 1 appl TOP DAILY [facility] Last Admin: 12/01/22 09:00 Dose: 1 jean Ceftazidime 1 gm/ Sodium (Chloride) 50 mls @ 100 mls/hr IV Q8HR [facility] Last Admin: 12/01/22 10:41 Dose: 50 mls L-Arginine/L-Glutamine/HMB (Nahun Packet) 1 pkt FT BID [facility] Last Admin: 12/01/22 09:00 Dose: 1 pkt Ondansetron HCl (Ondansetron 4 Mg/2 Ml Vial) 4 mg IV Q6HP PRN PRN Reason: NAUSEA / VOMITING Potassium Bicarbonate (Potassium 25 Meq Efferv Tab) 25 meq PO DAILY [facility] Last Admin: 12/01/22 10:42 Dose: 25 meq Rivaroxaban (Rivaroxaban 10 Mg Tablet) 10 mg PO BEDTIME [facility] Last Admin: 11/30/22 21:38 Dose: 10 mg Sodium Chloride (Flush Normal Saline 10 Ml) 10 ml IV BID [facility] Last Admin: 12/01/22 09:00 Dose: 10 ml Microbiology Data (last 24 hrs): Microbiology 11/23/22 11:01 Blood - Blood Aerobic Blood Culture - Final No growth in 5 days. 11/23/22 11:01 Blood - Blood Anaerobic Blood Culture - Final No growth in 5 days. 11/23/22 11:26 Blood - Blood Aerobic Blood Culture - Final No growth in 5 days. 11/23/22 11:26 Blood - Blood Anaerobic Blood Culture - Final No growth in 5 days. 11/23/22 11:26 Catheterized Urine [place] Count - Final >100,000 CFU/ML. 11/23/22 11:26 Catheterized Urine - Final Meth Resistant Staph Aureus Pseudomonas Aeruginosa Assessment And Plan - Current Problems (Diagnosis) (1) Pneumonia Plan: Cultures: - 11/26 Sputum: ESBL-Klebsiella Oxytoca, Susceptible to Meropenem and Gentamycin and Pseudomonas Aeruginosa, Susceptible to Ceftazidime, Gentamycin ,and Tobramycin - 11/23 BC: Negative Antibiotics: - Had Vancomycin 3/2 to 34 and Cefepime (11/24-11/29) - Dr. Conde added Doxycycline PO on (11/26- ) - Current on IV Ceftazidime (11/29- ) and PO Doxycycline (11/26- ) Recommendation: - Continue Ceftazidime and Doxycycline - 11/26 Sputum: ESBL-Klebsiella Oxytoca, Possible colonization. ABX on hold Qualifiers: Pneumonia type: due to unspecified organism Laterality: bilateral Lung location: unspecified part of lung Qualified Code(s): J18.9 - Pneumonia, unspecified organism (2) Decubitus ulcer of sacral region, unstageable Plan: Cultures: - 11/23 Buttock wound: Pseudomonas aeruginosa, Susceptible to Cefepime and Ceftazidime - 11/23 BC: Negative Antibiotics: - Had Vancomycin 3/2 to 3/4 and Cefepime (2-11/29) - Dr. Conde added Doxycycline PO on (11/26- ) - Current on IV Ceftazidime (11/29- ) and PO Doxycycline (11/26- ) Recommendation: - Continue IV Ceftazidime for total of 6 weeks duration - Offload pressure with pillows when possible (3) Decubitus ulcer of hip, left, unstageable Plan: Cultures: - 11/23 Left hip wound: Pseudomonas aeruginosa and Acinetobacter Sunitha/Haem, Susceptible to Cefepime and Ceftazidime - 11/23 BC: Negative Antibiotics: - Had Vancomycin 3/2 to 4 and Cefepime (11/24-11/29) - Dr. Conde added Doxycycline PO on (11/26- ) - Current on IV Ceftazidime (11/29- ) and PO Doxycycline (11/26- ) Recommendation: - Continue IV Ceftazidim for total of 6 weeks duration - Offload pressure with pillows when possible (4) UTI (urinary tract infection) Plan: Cultures: - 11/23 UC: Meth Resistant Staph Aureus (MRSA), and Pseudomonas aeruginosa ( Susceptible to Cefepime and Ceftazidime) - 11/23 BC: Negative Antibiotics: - Had Vancomycin 2 to 11/26 and Cefepime (11/24-11/29) - Dr. Conde added Doxycycline PO on (11/26- ) - Current on IV Ceftazidime (11/29- ) and PO Doxycycline (11/26- ) Recommendation: - Continue PO Doxycycline and IV Ceftazidime - Plan - Pneumonia: Continue IV and PO antibiotics - UTI: Continue PO antibiotics - Pressure Ulcers of left hip and buttocks: On IV antibiotics for total of 6 weeks duration - Moderate protein calorie malnutrition - Sepsis - Chronic respiratory failure with hypoxia - History of anoxic brain injury - HLD - History of constipation - Tachycardia - Hypertension - Leukocytosis Plan to discharge the patient back to [facility] after the placement of the wound vac ID will monitor the patient closely for signs of infection with fever and WBC trends Case has been discussed with Dr. Nuñez N Physician Review: Patient Assessed, Agree with Above Assessment and Plan
[2022-12-01 11:27] VITALS: O2SAT 94
--- NOTE | 2022-12-01 13:10 | P.DS ---
Admission Date: 11/23/22 Discharge Date: 12/01/22 Discharge Condition: FAIR Reason for Admission: Left lower lobe pneumonia/multiple decubitus ulcers - Problems (1) Decubitus ulcer of hip, left, unstageable Current Visit: Yes Status: Acute (2) Decubitus ulcer of hip, right, unstageable Current Visit: Yes Status: Acute (3) Decubitus ulcer of sacral region, unstageable Current Visit: No Status: Acute (4) Pneumonia Onset Date: ~11/24/22 Current Visit: No Status: Acute Qualifiers: Pneumonia type: due to unspecified organism Laterality: bilateral Lung location: unspecified part of lung Qualified Code(s): J18.9 - Pneumonia, unspecified organism (5) Quadriplegia Current Visit: Yes Status: Acute (6) UTI (urinary tract infection) Current Visit: Yes Status: Acute Brief History of Present Illness: Patient is a 46-year-old female with a past medical history significant for anoxic brain injury, quadriplegia, paroxysmal sympathetic hyperactivity, trach dependence with PEG tube who presents with complaint of shortness of breath. Patient is a resident of a sn[facility]. No other signs and symptoms reported. Symptoms are aggravated or relieved by nothing. EMS was called and patient was noted to have a mucous plug. Patient was altered as reported by EMS. Chest x- ray done in the ED demonstrated possible left lower lobe pneumonia. Patient was hospitalized for further management. Hospital Course: Patient admitted to the medical floor and started on aggressive antibiotic therapy. Sputum culture grew MRSA and Pseudomonas. Urine culture grew multiple organisms. She was treated with several days of IV vancomycin and cefepime. Vancomycin was transitioned to oral doxycycline and cefepime to ceftazidime based on antibiotic sensitivity. Patient clinical condition was stable. She is now tolerating her baseline oxygen by trach collar. Patient seen and evaluated by infectious disease Dr. Nuñez who recommended 6 weeks of antibiotic therapy with oral doxycycline and IV ceftazidime. She has multiple decubitus ulcers including sacral decubitus ulcer for which wound VAC has been recommended. Overall patient has improved to baseline and deemed stable for discharge today. Vital Signs/Physical Exam: Temp Pulse Resp BP Pulse Ox 98.5 F 124 H 16 126/77 97 12/01/22 12:00 12/01/22 12:00 12/01/22 12:00 12/01/22 12:00 12/01/22 12:00 General: In no apparent distress, Cachectic, Other (Awake) HEENT: Mucous membr. moist/pink Neck: JVD not distended Respiratory: Clear to auscultation bilaterally, Normal air movement Cardiovascular: No edema, Regular rate/rhythm, Normal S1 S2 Gastrointestinal: Soft and benign, Non-distended Musculoskeletal: Other (Contracted lower extremities) Integumentary: Other (Sacral decubitus ulcer, hip decubitus ulcer) Neurological: Other (Quadriplegia) Laboratory Data at Discharge: WBC 10.10 K/uL (4.3-10.9) 11/30/22 05:03 Hgb 9.7 g/dL (12.0-15.0) L 11/30/22 05:03 Hct 30.3 % (36.0-45.0) L 11/30/22 05:03 Plt Count 361 K/uL (152-406) 11/30/22 05:03 PT 11.8 SECONDS (9.5-12.5) 11/23/22 11:26 INR 1.07 11/23/22 11:26 APTT 28.9 SECONDS (24.3-36.9) 11/23/22 11:26 Sodium 135 mmol/L (136-145) L 12/01/22 03:55 Potassium 4.1 mmol/L (3.5-5.1) 12/01/22 03:55 BUN 28 mg/dL (7-18) H 12/01/22 03:55 Creatinine 0.47 mg/dL (0.55-1.02) L 12/01/22 03:55 Glucose 160 mg/dL (74-106) H 12/01/22 03:55 Phosphorus 3.8 mg/dL (2.5-4.9) 11/23/22 11:26 Magnesium 2.0 mg/dL (1.6-2.4) 11/23/22 11:26 Total Bilirubin 0.2 mg/dL (0.2-1.0) 11/23/22 11:26 AST 31 U/L (15-37) 11/23/22 11:26 ALT 27 U/L (13-56) 11/23/22 11:26 Alkaline Phosphatase 134 U/L (45-117) H 11/23/22 11:26 Home Medications: Baclofen 5 mg PO TID 04/22/22 Gabapentin [Neurontin*] 300 mg PO TID 04/22/22 Polyethylene Glycol 3350 [Miralax] 17 gm PO DAILY 04/22/22 cloNIDine HCL [Clonidine HCl] 0.1 mg PO TID 04/22/22 Ipratropium Neb [Atrovent*] 0.5 mg NEB [id number] amp 04/25/22 Sertraline [Zoloft*] 100 mg PO BEDTIME 04/29/22 Acetaminophen [Tylenol] 650 mg FT Q6H PRN 06/25/22 Acetylcyst 20% Resp [Mucomyst 20% (FOR RESPIRATORY)*] 3 ml IH TID 06/25/22 Carboxymethylcellulose Sodium [Artificial Tears] 15 ml OP QID PRN 06/25/22 Jevity 1.2 Danie Liquid 55 ml FT CONT 06/25/22 clonazePAM [Klonopin] 1 tab PO BID 06/25/22 Aspirin Chewable [Aspirin Chewable*] 81 mg PO DAILY 07/11/22 Atorvastatin Calcium [Lipitor*] 20 mg PO BEDTIME 07/11/22 Metoprolol Tartrate [Lopressor*] 25 mg PO BID 07/11/22 Rivaroxaban [Xarelto*] 10 mg PO BEDTIME 07/11/22 Collagenase [Santyl Ointment*] 1 appl TOP DAILY tube 07/14/22 Nahun [Nahun*] 1 pkt FT BID 07/14/22 Acetaminophen [Tylenol*] 650 mg AR Q6H PRN supp 12/01/22 Ceftazidime [Fortaz*] 1 gm IVPB Q8H 35 Days ml 12/01/22 Doxycycline Hyclate 100 mg PO BID 35 Days cap 12/01/22 Medihoney [Medihoney Woundcare Gel*] 1 appl TOP DAILY tube 12/01/22 New Medications: Doxycycline Hyclate 100 mg PO BID 35 Days cap Ceftazidime [Fortaz*] 1 gm IVPB Q8H 35 Days ml Diet: Tube feed Activity: Fall precautions Followup: NONE,NONE [Primary Care Provider] - 1 Week Time spent managing pt's care (in minutes): 35
[2022-12-01] MEDS ORDERED: HYDROMORPHONE HCL 1 MG/ML INJ IV ONE (13:47)
[2022-12-01] MEDS: RIVAROXABAN 10 MG TABLET PO SCH (22:14)
[2022-12-02] MEDS: CEFTAZIDIME 1 GM in NA CHLORIDE 0.9% 50 ML IV SCH ×2 (00:27→08:27)
[2022-12-02] MEDS: DOXYCYCLINE 100 MG CAP PO SCH (08:27)
[2022-12-02] MEDS: ASPIRIN 81 MG CHEWABLE TABLET PO SCH (08:27)
[2022-12-02] MEDS: POTASSIUM 25 MEQ EFFERV TAB PO SCH (08:27)
[2022-12-02] MEDS: JUVEN PACKET FT SCH (08:28)
[2022-12-02] MEDS: MEDIHONEY 44 ML TOPICAL TUBE TOP SCH (08:28)
[2022-12-02 08:36] VITALS: BP 96/69; TEMP 98
== END 2022-12-02 09:03 | DRG 871 ==
LOC: ER 10:05 → ERHOLD 12:46 → 2ND 17:50 → 3RD-ICU 11-27 14:35 → 2ND 11-27 14:57
PROVIDERS: ADMIT Hospitalist; ATTEND Internal Medicine
PROC: 02H633Z Insertion of Infusion Device into Right Atrium, Percutaneous Approach (ICD-10-PCS; principal; 2022-11-27)
DX: A41.59 Other Gram-negative sepsis (principal); G82.50 Quadriplegia, unspecified; J18.9 Pneumonia, unspecified organism; J96.11 Chronic respiratory failure with hypoxia; N39.0 Urinary tract infection, site not specified; E44.0 Moderate protein-calorie malnutrition; Z68.1 Body mass index [BMI] 19.9 or less, adult; Z16.12 Extended spectrum beta lactamase (ESBL) resistance; A41.52 Sepsis due to Pseudomonas; A41.89 Other specified sepsis; D63.8 Anemia in other chronic diseases classified elsewhere; D50.9 Iron deficiency anemia, unspecified; E78.5 Hyperlipidemia, unspecified; L89.899 Pressure ulcer of other site, unspecified stage; L89.150 Pressure ulcer of sacral region, unstageable; L89.220 Pressure ulcer of left hip, unstageable; L89.210 Pressure ulcer of right hip, unstageable; K59.00 Constipation, unspecified; B96.1 Klebsiella pneumoniae [K. pneumoniae] as the cause of diseases classified elsewhere; Z93.0 Tracheostomy status; Z88.8 Allergy status to other drugs, medicaments and biological substances; Z86.14 Personal history of Methicillin resistant Staphylococcus aureus infection; Z79.82 Long term (current) use of aspirin; Z91.51 Personal history of suicidal behavior; Z79.01 Long term (current) use of anticoagulants; Z87.820 Personal history of traumatic brain injury; Z79.899 Other long term (current) drug therapy; Z90.710 Acquired absence of both cervix and uterus; Z20.822 Contact with and (suspected) exposure to COVID-19
CPT/HCPCS: 0240U; 36415; 36569; 71045; 80048; 80053; 80202; 81001; 81015; 82728; 83540; 83605; 83735; 84100; 84132; 84466; 85025; 85610; 85730; 87040; 87070; 87077; 87086; 87088; 87186; 87205; 94640; 99285; J0456; J0692; J0713; J1170; J2916; J3370; J7030; J7050; J7613; J7644; U0003

== ENCOUNTER 2023-01-04 02:21 | Inpatient (IN) | payer OTHER, SELFPAY ==
--- OUTSIDE RECORDS SUMMARY | 2023-01-04 02:40 | XMS REPORT | Continuity of Care Document ---
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 Systolic 2022-06-07 00:00:00 135 mm[Hg] [facility] Weight 2022-06-07 00:00:00 1768 [oz_av] [facility] BP Diastolic 2022-06-02 00:00:00 84 mm[Hg] [facility] Height 2022-06-02 00:00:00 62 [in_i] [facility] BMI (Body Mass Index) 2022-06-02 00:00:00 23 kg/m2 [facility] BP Systolic 2022-06-02 00:00:00 115 mm[Hg] [facility] Body Weight 2022-06-02 00:00:00 2016 [oz_av] [facility] BP Diastolic 2022-05-24 00:00:00 76 mm[Hg] [facility] Height 2022-05-24 00:00:00 62 [in_i] [facility] BMI (Body Mass Index) 2022-05-24 00:00:00 23 kg/m2 [facility] BP Systolic 2022-05-24 00:00:00 120 mm[Hg] [facility] Body Weight 2022-05-24 00:00:00 2016 [oz_av] [facility] BP Diastolic 2022-04-26 00:00:00 67 mm[Hg] [facility] Height 2022-04-26 00:00:00 62 [in_i] [facility] BMI (Body Mass Index) 2022-04-26 00:00:00 23.8 kg/m2 [facility] BP Systolic 2022-04-26 00:00:00 131 mm[Hg] [facility] Weight 2022-04-26 00:00:00 2080 [oz_av] [facility] Heart rate 2022-06-25 12:00:00 88 /min [facility] Systolic blood 2022-06-25 11:00:00 105 mm[Hg] [facility] Diastolic blood 2022-06-25 11:00:00 63 mm[Hg] [facility] Body temperature 2022-06-25 11:00:00 36.5 Pari [facility] Respiratory rate 2022-06-25 11:00:00 19 /min [facility] Oxygen saturation in 2022-06-25 11:00:00 98 /min [facility] Arterial blood by Medical Ce nter Pulse oximetry Body weight 2022-06-24 05:41:00 54.749 kg [facility] BMI 2022-06-24 05:41:00 21.38 kg/m2 [facility] Body height 2022-06-16 09:30:00 160 cm [facility] Procedures Procedure Date / Time Performing Clinician Source Performed POCT-GLUCOSE METER 2022-06-25 11:16:00 Hanane [facility] POCT-GLUCOSE METER 2022-06-25 06:17:00 Hanane [facility] PHOSPHORUS 2022-06-25 05:29:00 Shira Farmer [facility] CBC W/PLT COUNT & AUTO 2022-06-25 05:29:00 Bilcasi [facility] COMPREHENSIVE METABOLIC 2022-06-25 05:29:00 Morgan [facility] PANEL [facility] TSH/FREE T4 IF INDICATED 2022-06-25 05:29:00 [facility] W/[facility]T [facility] & AUTO 2022-06-25 05:29:00 Morgan [facility] POCT-GLUCOSE METER 2022-06-25 00:39:00 Hanane [facility] POCT-GLUCOSE METER 2022-06-24 18:00:00 Hanane [facility] BLOOD CULTURE 2022-06-24 15:43:00 Hanane [facility] CBC W/PLT COUNT & AUTO 2022-06-24 15:41:00 Hanane [facility] PROTHROMBIN TIME/INR 2022-06-24 15:41:00 Hanane [facility] CBC W/PLT COUNT & AUTO 2022-06-24 15:41:00 Hanane [facility] XR CHEST 1 VIEW PORTABLE 2022-06-24 14:22:00 [facility] ECG 12-LEAD 2022-06-24 13:42:56 Unknown, 7 [facility] ECG 12-LEAD 2022-06-24 13:42:56 [facility] 2022-06-24 13:42:56 Unknown, 7 [facility] ECG 12-LEAD 2022-06-24 13:41:12 Unknown, 7 [facility] ECG 12-LEAD 2022-06-24 13:41:12 Unknown, [address] POCT-GLUCOSE METER 2022-06-24 11:13:00 Hanane [facility] POCT-GLUCOSE METER 2022-06-24 06:34:00 Hanane [facility] PHOSPHORUS 2022-06-24 03:37:00 Marleny [facility] CBC W/PLT COUNT & AUTO 2022-06-24 03:37:00 Morgan [facility] DIFFERENTIAL Dario [place] COMPREHENSIVE METABOLIC 2022-06-24 03:37:00 Morgan [facility] CBC W/PLT COUNT & AUTO 2022-06-24 03:37:00 Bilcasi [facility] DIFFERENTIAL [facility] POCT-GLUCOSE METER 2022-06-24 00:27:00 Hanane [facility] POCT-GLUCOSE METER 2022-06-23 17:44:00 Hanane [facility] SARS-COV2/RT-PCR ([facility] & 2022-06-23 13:18:00 CicShria benton [facility] REF LABS) [facility] POCT-GLUCOSE METER 2022-06-23 11:05:00 Hanane [facility] POCT-GLUCOSE METER 2022-06-23 06:57:00 Hanane [facility] POCT-GLUCOSE METER 2022-06-23 06:35:00 Hanane [facility] PHOSPHORUS 2022-06-23 03:36:00 [facility] [place] [facility] W/PLT COUNT & AUTO 2022-06-23 03:36:00 Bilcasi [facility] DIFFERENTIAL [facility] COMPREHENSIVE METABOLIC 2022-06-23 03:36:00 Bilal [facility] PANEL [facility] CBC W/PLT COUNT & AUTO 2022-06-23 03:36:00 Bilcasi [facility] DIFFERENTIAL [facility] POCT-GLUCOSE METER 2022-06-22 23:34:00 Hanane [facility] POCT-GLUCOSE METER 2022-06-22 17:55:00 Hanane [facility] EEG 2-12 HR CONTINUOUS 2022-06-22 14:06:00 Hanane [facility] Medical MONITORING WITH VIDEO Center POCT-GLUCOSE METER 2022-06-22 11:43:00 Hanane [facility] VANCOMYCIN LEVEL, TROUGH 2022-06-22 09:36:00 Melodie Mcguire [facility] POCT-GLUCOSE METER 2022-06-22 07:38:00 Hanane [facility] EEG 12-26 HR CONTINUOUS 2022-06-22 06:38:00 [facility] Center POCT-GLUCOSE METER 2022-06-22 04:35:00 Hanane [facility] PHOSPHORUS 2022-06-22 03:01:00 Marleny [facility] CBC W/PLT COUNT & AUTO 2022-06-22 03:01:00 [facility] Medical DIFFERENTIAL Dario [place] COMPREHENSIVE METABOLIC 2022-06-22 03:01:00 [facility] CBC W/PLT COUNT & AUTO 2022-06-22 03:01:00 [facility] DIFFERENTIAL [facility] POCT-GLUCOSE METER 2022-06-22 00:24:00 Hanane [facility] POCT-GLUCOSE METER 2022-06-21 17:59:00 Hanane [facility] POCT-GLUCOSE METER 2022-06-21 10:57:00 Hanane [facility] POCT-GLUCOSE METER 2022-06-21 06:42:00 Hanane [facility] PHOSPHORUS 2022-06-21 04:04:00 Marleny [facility] CBC W/PLT COUNT & AUTO 2022-06-21 04:04:00 Artemiowi [facility] DIFFERENTIAL Dario [facility] 2022-06-21 04:04:00 [facility] PANEL [facility] CBC W/PLT COUNT & AUTO 2022-06-21 04:04:00 [facility] DIFFERENTIAL [facility] POCT-GLUCOSE METER 2022-06-21 02:03:00 Hanane [facility] CT BRAIN WITHOUT IV 2022-06-20 21:41:00 Lucy [facility] CONTRAST [place] HIGH SENSITIVITY 2022-06-20 20:18:00 Lucy, [facility] TROPONIN I [place] COMPREHENSIVE METABOLIC 2022-06-20 20:14:[address] [facility] CBC W/PLT COUNT & AUTO 2022-06-20 20:14:00 BruceShiv, [facility] DIFFERENTIAL [place] LACTIC ACID, VENOUS 2022-06-20 20:14:00 Lucy [facility] MAGNESIUM 2022-06-20 20:14:00 Lucy, [facility] PHOSPHORUS 2022-06-20 20:14:00 [facility] CBC W/PLT COUNT & AUTO 2022-06-20 20:14:00 Lucy [facility] DIFFERENTIAL [place] POCT-BLOOD GASES, VENOUS 2022-06-20 20:04:00 Hanane [facility] POCT-SODIUM 2022-06-20 20:04:00 Hanane [facility] POCT-POTASSIUM 2022-06-20 20:04:00 Hanane [facility] POCT-HEMOGLOBIN 2022-06-20 20:04:00 Hanane [facility] POCT-HEMATOCRIT 2022-06-20 20:04:00 Hanane [facility] POCT-GLUCOSE 2022-06-20 20:04:00 Hanane [facility] XR CHEST 1 VIEW PORTABLE 2022-06-20 19:46:00 [facility] POCT-GLUCOSE METER 2022-06-20 19:22:00 Hanane [facility] POCT-GLUCOSE METER 2022-06-20 17:49:00 Hanane [facility] POCT-GLUCOSE METER 2022-06-20 10:54:00 Hanane, [facility] POCT-GLUCOSE METER 2022-06-20 05:34:00 Hanane [facility] PHOSPHORUS 2022-06-20 03:29:00 Saulcaremimihaider [facility] POCT-GLUCOSE METER 2022-06-20 00:18:00 Hanane [facility] POCT-GLUCOSE METER 2022-06-19 18:23:00 Hanane [facility] POCT-GLUCOSE METER 2022-06-19 12:01:00 Hanane [facility] POCT-GLUCOSE METER 2022-06-19 06:46:00 Hanane [facility] CBC (HEMOGRAM ONLY) 2022-06-19 05:19:00 [facility] BASIC METABOLIC PANEL 2022-06-19 05:19:00 Ciccarerebecca [facility] MAGNESIUM 2022-06-19 05:19:00 Saulcaremimihaider [facility] PHOSPHORUS 2022-06-19 05:19:00 [facility] POCT-GLUCOSE METER 2022-06-19 00:34:00 Hanane [facility] POCT-GLUCOSE METER 2022-06-18 18:12:00 Hanane [facility] VANCOMYCIN LEVEL, TROUGH 2022-06-18 18:02:00 CiccaremimiShira tinsley [facility] POCT-GLUCOSE METER 2022-06-18 12:04:00 Hanane [facility] POCT-GLUCOSE METER 2022-06-18 05:56:00 Aaron [facility] CBC (HEMOGRAM ONLY) 2022-06-18 04:58:00 [facility] BASIC METABOLIC PANEL 2022-06-18 04:58:00 Ciccarello, [facility] MAGNESIUM 2022-06-18 04:58:00 [facility] cent[facility] PHOSPHORUS 2022-06-18 04:58:00 Marleny [facility] POCT-GLUCOSE METER 2022-06-17 21:47:00 Aaron [facility] POCT-GLUCOSE METER 2022-06-17 19:12:00 Aaron [facility] BASIC METABOLIC PANEL 2022-06-17 16:44:00 [facility] HEMOGLOBIN AND 2022-06-17 16:44:00 [facility] MAGNESIUM 2022-06-17 14:53:00 [facility] centerrebecca [facility] BASIC METABOLIC PANEL 2022-06-17 13:54:00 [facility] 2D ECHO W/ DOPPLER 2022-06-17 11:23:00 [facility] (CW/PW/COLOR) [facility] POCT-GLUCOSE METER 2022-06-17 11:12:00 [facility] VENOUS DOPPLER LEGS 2022-06-17 10:00:00 [facility] POCT-GLUCOSE METER 2022-06-17 05:52:00 [facility] CBC (HEMOGRAM ONLY) 2022-06-17 04:05:00 [facility] BASIC METABOLIC PANEL 2022-06-17 04:05:00 Marleny [facility] MAGNESIUM 2022-06-17 04:05:00 Marleny [facility] PHOSPHORUS 2022-06-17 04:05:00 [facility] XR CHEST 1 VIEW PORTABLE 2022-06-17 00:55:00 Shira Farmer [facility] POCT-GLUCOSE METER 2022-06-16 23:35:00 [facility] POCT-GLUCOSE METER 2022-06-16 17:19:00 [facility] IV 2022-06-16 13:55:00 Marleny [facility] CONTRAST [facility] XR CHEST 1 VIEW PORTABLE 2022-06-16 13:05:00 Shira Farmer [facility] BLOOD CULTURE 2022-06-16 12:20:00 Marleny [facility] BLOOD CULTURE 2022-06-16 10:58:00 Marleny [facility] SPUTUM CULTURE + GRAM 2022-06-16 09:48:00 Marleny [facility] SARS-COV2/RT-PCR ([facility] & 2022-06-16 09:48:00 Shira Farmer [facility] REF LABS) [facility] CBC (HEMOGRAM ONLY) 2022-06-16 09:48:00 Marleny [facility] BASIC METABOLIC PANEL 2022-06-16 09:48:00 [facility] centerreebcca [facility] HEPATIC FUNCTION PANEL 2022-06-16 09:48:00 [facility] center[facility] LACTIC ACID, VENOUS 2022-06-16 09:48:00 [facility] PROCALCITONIN 2022-06-16 09:48:00 [facility] URINALYSIS W/ REFLEX 2022-06-16 09:48:00 [facility] centerrebecca [facility] URINE CULTURE [facility] BLOOD GAS, VENOUS 2022-06-16 09:48:00 [facility] centerrebecca [facility] EKG-SCANNED 2022-06-16 00:00:00 Provider, Default [facility] [id number] 2022-03-21 00:00:00 MITVI [facility] [id number] 2022-03-20 00:00:00 MAIAN01 [facility] Tracheostomy 2022-02-17 00:00:00 [facility] [id number] 2022-02-17 00:00:00 LEESE.01 [facility] [id number] 2022-02-17 00:00:00 LEESE.01 [facility] [id number] 2022-02-17 00:00:00 LEESE.01 [facility] [id number] 2022-02-09 00:00:00 LEESE.01 [facility] Gastrostomy [facility] Plan of Care Planned [...] Cessation Counseling and Screening (12+)] Future Scheduled 2023-05-[address] [facility] 00:00:00 (Season Ended) [code = Medic al Center INFLUENZA VACCINE (Season Ended)] Future Scheduled 2023-05-[address] [facility] 00:00:00 (Season Ended) [code = Medic al Center INFLUENZA VACCINE (Season Ended)] Future Scheduled 2022-09-[address] [facility] 00:00:00 [code = 55630268] Medical Ce nter Future Scheduled 2021 Lipid panel (procedure) [facility] 00:00:00 [code = 27563786] Medical Ce nter Future Scheduled 2021 Lipid panel (procedure) [facility] 00:00:00 [code = 69755114] Medical Ce nter Future Scheduled 2021 Lipid panel (procedure) [facility] 00:00:00 [code = 61437941] Medical Ce nter Future Scheduled 2021 Lipid panel (procedure) [facility] 00:00:00 [code = 93039578] Medical Ce nter Future Scheduled 2021 Lipid panel (procedure) [facility] 00:00:00 [code = 18852749] Medical Ce nter Future Scheduled 2021 Lipid panel (procedure) [facility] 00:00:00 [code = 92742751] Medical Ce nter Future Scheduled 2021-09-[address] [facility] 00:00:00 (12+) [code = Medical Center DEPRESSION SCREENING (12+)] Future Scheduled 2021-09-[address] [facility] 00:00:00 (12+) [code = Medical Center DEPRESSION SCREENING (12+)] Future Scheduled 1997 Screening for malignant [facility] 00:00:00 neoplasm of cervix Medical C enter (procedure) [code = 342270337] Future Scheduled 1997 Screening for malignant [facility] 00:00:00 neoplasm of cervix Medical C enter (procedure) [code = 822758862] Future Scheduled 1997 Screening for malignant [facility] 00:00:00 neoplasm of cervix Medical C enter (procedure) [code = 118882809] Future Scheduled 1997 Screening for malignant [facility] 00:00:00 neoplasm of cervix Medical C enter (procedure) [code = 628571778] Future Scheduled 1997 Screening for malignant [facility] 00:00:00 neoplasm of cervix Medical C enter (procedure) [code = 836077993] Future Scheduled 1997 Screening for malignant [facility] 00:00:00 neoplasm of cervix Medical C enter (procedure) [code = 258261319] Future Scheduled 1997 Screening for malignant [facility] 00:00:00 neoplasm of cervix Medical C enter (procedure) [code = 401556194] Future Scheduled 1995-12-27 DTAP/TDAP/TD VACCINES [facility] [...] [facility] 00:00:00 [code = CT Colonography [facility] Center (combo)] Future Scheduled 1976 Screening for malignant [facility] 00:00:00 neoplasm of colon Medical Ce nter (procedure) [code = 446365968] Future Scheduled 1976 Screening for malignant [facility] 00:00:00 neoplasm of colon Medical Ce nter (procedure) [code = 875198363] Future Scheduled 1976 Screening for malignant [facility] 00:00:00 neoplasm of colon Medical Ce nter (procedure) [code = 176541143] Future Scheduled 1976 Screening for malignant [facility] 00:00:00 neoplasm of colon Medical Ce nter (procedure) [code = 777142799] Future Scheduled 1976 Sigmoidoscopy [code = [facility] S[facility]oscopy] Medical Cente r Future Scheduled 1976 CT Colonography (combo) [facility] 00:00:00 [code = CT Colonography [facility] (combo)] Future Scheduled 1976 Screening for malignant [facility] 00:00:00 neoplasm of colon Medical Ce nter (procedure) [code = 029508690] Future Scheduled 1976 Screening for malignant [facility] 00:00:00 neoplasm of colon Medical Ce nter (procedure) [code = 702646523] Future Scheduled 1976 Screening for malignant [facility] 00:00:00 neoplasm of colon Medical Ce nter (procedure) [code = 583435340] Future Scheduled 1976 Screening for malignant [facility] 00:00:00 neoplasm of colon Medical Ce nter (procedure) [code = 960624587] Future Scheduled 1976 Sigmoidoscopy [code [facility] S[facility]oscopy] Medical Cente r Future Scheduled 1976 CT Colonography (combo) [facility] 00:00:00 [code = CT Colonography [facility] (combo)] Future Scheduled 1976 Screening for malignant [facility] 00:00:00 neoplasm of colon Medical Ce nter (procedure) [code = 611055607] Future Scheduled 1976 Screening for malignant [facility] 00:00:00 neoplasm of colon Medical Ce nter (procedure) [code = 991971896] Future Scheduled 1976 Screening for malignant [facility] 00:00:00 neoplasm of colon Medical Ce nter (procedure) [code = 279579727] Future Scheduled 1976 Screening for malignant [facility] 00:00:00 neoplasm of colon Medical Ce nter (procedure) [code = 207814565] Future Scheduled 1976 Sigmoidoscopy [code = [facility] S[facility]oidoscopy] Medical Cente r Future Scheduled 1976 CT Colonography (combo) [facility] 00:00:00 [code = CT Colonography [facility] Center (combo)] Future Scheduled 1976 Screening for malignant [facility] 00:00:00 neoplasm of colon Medical Ce nter (procedure) [code = 191620098] Future Scheduled 1976 Screening for malignant [facility] 00:00:00 neoplasm of colon Medical Ce nter (procedure) [code = 441879860] Future Scheduled 1976 Screening for malignant [facility] 00:00:00 neoplasm of colon Medical Ce nter (procedure) [code = 848427669] Future Scheduled 1976 Screening for malignant [facility] 00:00:00 neoplasm of colon Medical Ce nter (procedure) [code = 318640421] Future Scheduled 1976 Sigmoidoscopy [code = [facility] S[facility]oscopy] Medical Cente r Future Scheduled 1976 CT Colonography (combo) [facility] 00:00:00 [code = CT Colonography [facility] (combo)] Future Scheduled 1976 Screening for malignant [facility] 00:00:00 neoplasm of colon Medical Ce nter (procedure) [code = 781772781] Future Scheduled 1976 Screening for malignant [facility] 00:00:00 neoplasm of colon Medical Ce nter (procedure) [code = 663519525] Future Scheduled 1976 Screening for malignant [facility] 00:00:00 neoplasm of colon Medical Ce nter (procedure) [code = 854316307] Future Scheduled 1976 Screening for malignant [facility] 00:00:00 neoplasm of colon Medical Ce nter (procedure) [code = 416110302] Future Scheduled 1976 Sigmoidoscopy [code = [facility] 00:[facility] Sigmoidoscopy] Medical Emmanuel r Future Scheduled 1976 CT Colonography (combo) [facility] 00:00:00 [code = CT Colonography [facility] (combo)] Future Scheduled 1976 Screening for malignant [facility] 00:00:00 neoplasm of colon Medical Ce nter (procedure) [code = 167020836] Future Scheduled 1976 Screening for malignant [facility] 00:00:00 neoplasm of colon Medical Ce nter (procedure) [code = 971933803] Future Scheduled 1976 Screening for malignant [facility] 00:00:00 neoplasm of colon Medical Ce nter (procedure) [code = 206975284] Future Scheduled 1976 Screening for malignant [facility] 00:00:00 neoplasm of colon Medical Ce nter (procedure) [code = 087262539] Future Scheduled 1976 Sigmoidoscopy [code = [facility] Sigmoidoscopy] Medical Chancee r Future Scheduled 1976 CT Colonography (combo) [facility] 00:00:00 [code = CT Colonography [facility] (combo)] Future Scheduled 1976 Screening for malignant [facility] 00:00:00 neoplasm of colon Medical Ce nter (procedure) [code = 331137769] Future Scheduled 1976 Screening for malignant [facility] 00:00:00 neoplasm of colon Medical Ce nter (procedure) [code = 595767066] Future Scheduled 1976 Screening for malignant [facility] 00:00:00 neoplasm of colon Medical Ce nter (procedure) [code = 426601766] Future Scheduled 1976 Screening for malignant [facility] 00:00:00 neoplasm of colon Medical Ce nter (procedure) [code = 285522662] Future Scheduled 1976 Sigmoidoscopy [facility]code [facility] S[facility]oscopy] Medical Cente r Encounters Start End Encounter Admission Attending Care Care Encounter Source Date/Time Date/Time Type Type Clinicians Facility Department ID 2022-12-25 2022-12-25 Outpatient [facility]Tod PRIV PRIV [id number] [facility] 00:00:00 00:00:00 d_J [id number] Medica l 2022-12-25 2022-12-25 Outpatient [facility]_Tod PRIV PRIV [id number] [facility] 00:00:00 00:00:00 d_J [id number] Medica l 2022-12-23 2022-12-23 [facility] [id number] [facility] 00:00:00 00:00:00 VALENTINO Duval: Health - Med ical [address] [address] , Ph. 2022-12-16 2022-12-16 [facility] [id number] [facility] 00:00:00 00:00:00 VALENTINO Duval: Health - Med ical [address] [address] , Ph. 2022-12-12 2022-12-12 Outpatient [facility]_Tod PRIV PRIV [id number] [facility] 00:00:00 00:00:00 d_J [id number] Medica l 2022-12-12 2022-12-12 Outpatient [facility]_Tod PRIV PRIV [id number] [facility] 00:00:00 00:00:00 d_J [id number] Medica l 2022-12-12 2022-12-12 Outpatient [facility]_Tod PRIV PRIV [id number] [facility] 00:00:00 00:00:00 d_J [id number] Medica l 2022-12-02 2022-12-02 [facility] [id number] [facility] 00:00:00 00:00:00 VALENTINO Duval: Health - Med ical [address] [address] , Ph. 2022-11-14 2022-11-14 Outpatient [facility]_Tod PRIV PRIV [id number] [facility] 00:00:00 00:00:00 d_J [id number] Medica l 2022-11-14 2022-11-14 Outpatient [facility]_Tod PRIV PRIV [id number] [facility] 00:00:00 00:00:00 d_J [id number] Medica l 2022-11-14 2022-11-14 Outpatient [facility]_Tod PRIV PRIV [id number] [facility] 00:00:00 00:00:00 d_J [id number] Medica l 2022-11-05 [facility] [id number] [facility] 00:00:00 00:00:00 VALENTINO Duval: Health - Med ical [address] [address] , Ph. 2022-10-22 2022-10-22 Outpatient [facility]_Tod PRIV PRIV [id number] [facility] 00:00:00 00:00:00 d_J [id number] Medica l 2022-10-20 2022-10-20 Outpatient GC_[facility]_Tod PRIV PRIV [id number] [facility] 00:00:00 00:00:00 d_J [id number] Medica l 2022-10-17 2022-10-17 Outpatient GC_BA[facility]_Tod PRIV PRIV 246 [id number] [facility] 00:00:00 00:00:00 d_J [id number] Medica l 2022-10-17 2022-10-17 Outpatient GC_BAHC_Tod PRIV PRIV 246 [id number] [facility] 00:00:00 00:00:00 d_J [id number] Medica l 2022-10-11 2022-10-11 Magda [facility] [id number] [facility] 00:00:00 00:00:00 VALENTINO Duval: Health - Med ical [address] [address] , Ph. 2022-10-05 2022-10-05 Magda [facility] [id number] [facility] 00:00:00 00:00:00 VALENTINO Duval: Health - Med ical [address] [place] [address] , Ph. 2022-10-04 2022-10-04 Keyshawn Alcantar [facility] - [facility] [id number] [facility] 00:00:00 00:00:00 Asia [facility] - Med ical MD: [address] [address] , Ph. 2022-09-30 2022-09-30 Outpatient GC_BAHC_Tod PRIV PRIV 246 [id number] [facility] 00:00:00 00:00:00 d_J [id number] Medica l 2022-09-30 2022-09-30 Outpatient GC_BAHC_Tod PRIV PRIV 246 [id number] [facility] 00:00:00 00:00:00 d_J [id number] Medica l 2022-09-30 2022-09-30 Outpatient GC_BAHC_Tod PRIV PRIV 246 [id number] [facility] 00:00:00 00:00:00 d_J [id number] Medica l 2022-09-30 2022-09-30 Outpatient GC_BAHC_Tod PRIV PRIV 246 [id number] [facility] 00:00:00 00:00:00 d_J [id number] Medica l 2022-09-27 2022-09-27 Outpatient GC_BA[facility]_Tod PRIV PRIV 246 [id number] [facility] 00:00:00 00:00:00 d_J [id number] Medica l 2022-09-27 2022-09-27 Outpatient GC_[facility]_Tod PRIV PRIV 246 [id number] [facility] 00:00:00 00:00:00 d_J [id number] Medica l 2022-09-27 2022-09-27 Magda [facility] [id number] [facility] 00:00:00 00:00:00 VALENTINO Duval: Health - Med ical [address] [address] , Ph. 2022-09-17 2022-09-17 Outpatient GC_[facility]_Tod PRIV PRIV 246 [id number] [facility] 00:00:00 00:00:00 d_J [id number] Medica l 2022-09-16 2022-09-16 [facility] [id number] [facility] 00:00:00 00:00:00 VALENTINO Duval: Health - Med ical [address] [place] [address] , Ph. 2022-09-13 2022-09-13 [facility] [id number] [facility] 00:00:00 00:00:00 VALENTINO Duval: Health - Med ical [address] [place] [address] , Ph. 2022-09-06 2022-09-06 Outpatient GC_BAHC_Tod PRIV PRIV 246 [id number] [facility] 00:00:00 00:00:00 d_J [id number] Medica l 2022-09-06 2022-09-06 Outpatient GC_BA[facility]_Tod PRIV PRIV 246 [id number] [facility] 00:00:00 00:00:00 d_J [id number] Medica l 2022-09-06 2022-09-06 Outpatient GC_BA[facility]_Tod PRIV PRIV 246 [id number] [facility] 00:00:00 00:00:00 d_J [id number] Medica l 2022-09-06 2022-09-06 Magda [facility] [id number] [facility] 00:00:00 00:00:00 AVLENTINO Duval: Health - Med ical [address] [address] , Ph. 2022-09-02 2022-09-02 Outpatient GC_BA[facility]_Tod PRIV PRIV 246 [id number] [facility] 00:00:00 00:00:00 d_J [id number] Medica l 2022-09-02 2022-09-02 Outpatient GC_BAHC_Tod PRIV PRIV 246 [id number] [facility] 00:00:00 00:00:00 d_J [id number] Medica l 2022-08-23 [facility]22-08-[facility] [id number] [facility] 00:00:00 00:00:00 VALENTINO Duval: Health - Med ical [address] [address] , Ph. 2022-08-22 2022-08-22 Outpatient GC_BAHC_Tod PRIV PRIV 246 [id number] [facility] 00:00:00 00:00:00 d_J [id number] Medica l 2022-08-22 2022-08-22 Outpatient GC_BAHC_Tod PRIV PRIV 246 [id number] [facility] 00:00:00 00:00:00 d_J [id number] Medica l 2022-08-16 2022-08-16 Outpatient GC_BAHC_Tod PRIV PRIV 246 [id number] [facility] 00:00:00 00:00:00 d_J [id number] Medica l 2022-08-16 2022-08-16 Magda [facility] [id number] [facility] 00:00:00 00:00:00 VALENTINO Duval: Health - Med ical [address] [place] [address] , Ph. 2022-08-13 2022-08-13 Outpatient UNKNOWN [facility] REF [id number] [facility] 19:23:00 19:23:00 74 [facility] 2022-08-09 2022-08-09 Magda [facility] 115 [facility] 00:00:00 00:00:00 VALENTINO Duval: Health - Med ical [address] [place] [address] , Ph. 2022-08-05 2022-08-05 Magda [facility] [id number] [facility] 00:00:00 00:00:00 VALENTINO Duval: Health - Med ical [address] [place] [address] , Ph. 2022-07-31 2022-07-31 Outpatient GC_BAHC_Tod PRIV PRIV 246 [id number] [facility] 00:00:00 00:00:00 d_J [id number] Medica l 2022-07-15 2022-07-15 Outpatient GC_BAHC_Tod PRIV PRIV 246 [id number] [facility] 00:00:00 00:00:00 d_J [id number] Medica l 2022-07-15 2022-07-15 Magda [facility] [id number] [facility] 00:00:00 00:00:00 VALENTINO Duval: Health - Med ical [address] [place] [address] , Ph. 2022-07-05 2022-07-05 Magda [facility] [id number] [facility] 00:00:00 00:00:00 VALENTINO Duval: Health - Med ical [address] [place] [address] , Ph. 2022-06-16 2022-06-25 [facility]ell[facility] [id number] [facility] 08:21:00 15:09:00 Encounter [facility]lem [facility]-16 2022-06-25 [facility] Maynor MonzonRy [facility] [id number] [facility] 08:21:00 15:09:00 Encounter Indu [facility] 2022-06-16 2022-06-25 [place]patient [place] [id number] [facility] 08:21:00 15:09:00 [facility] 2022-06-24 2022-06-24 Outpatient [facility] [id number] [address] [place] [address] 00:00:00 23:59:00 Armaan Medicin e 2022-06-24 2022-06-24 Orders [facility] [id number] 00:00:00 00:00:00 Only [facility] 2022-06-24 2022-06-24 Orders [facility] [id number] 00:00:00 00:00:00 Only [facility] 2022-06-16 2022-06-16 Outpatient TATIANNA GRIGGS [id number] [place] 00:00:00 00:00:00 BELEM Almazanol juanita 2022-06-16 2022-06-16 Outpatient GC_BAHC_Tod PRIV PRIV 246 [id number] [facility] 00:00:00 00:00:00 Hermes [id number] Medica l 2022-06-09 2022-06-09 Outpatient GC_BA[facility]_Tod PRIV PRIV 246 [id number] [facility] 00:00:00 00:00:00 Hermes [id number] Medica l 2022-06-07 2022-06-07 Outpatient GC_BAHC_Tod PRIV PRIV 246 [id number] [facility] 00:00:00 00:00:00 d_J [id number] Medica l 2022-06-07 2022-06-07 [facility] [id number] [facility] 00:00:00 00:00:00 VALENTINO Duval: Health - Med ical [address] [address] , Ph. 2022-06-02 2022-06-02 Outpatient Asia [facility] PRIV [id number] 00:00:00 00:00:00 Keyshawn Alcantar [id number] 2022-06-02 2022-06-02 Keyshawn Alcantar [facility] [id number] [facility] 00:00:00 00:00:00 [facility] - Med ical MD: [address] [address] , Ph. 2022-05-24 2022-05-24 Outpatient Mukund PRIV PRIV [id number] 00:00:00 00:00:00 Magda [id number] 2022-05-24 2022-05-24 [facility] [id number] [facility] 00:00:00 00:00:00 VALENTINO Duval: Health - Med ical [address] [address] , Ph. 2022-05-06 2022-05-06 Outpatient GC_BAHC_Tod PRIV PRIV 246 [id number] [facility] 00:00:00 00:00:00 d_J [id number] Medica l 2022-04-26 2022-04-26 Outpatient GC_BA[facility]_Tod PRIV PRIV 246 [id number] [facility] 00:00:00 00:00:00 d_J [id number] Medica l 2022-04-26 2022-04-26 [facility]da [facility] [id number] [facility] 00:00:00 00:00:00 VALENTINO Duval: Health - Med ical [address] [place] [address] , Ph. 2022-04-26 2022-04-26 Outpatient BASILIO Duval PRIV [id number] 00:00:00 00:00:00 Magda [id number] 2022-04-22 2022-04-22 Outpatient GC_BAHC_Tod PRIV PRIV 246 [id number] [facility] 00:00:00 00:00:00 d_J [id number] Medica l 2022-02-09 2022-04-20 Inpatient EM Lorna Douglass HCACliffordW CARDIAC [id number] [facility] 05:41:00 17:44:00 57 [facility] are [facility] 2022-02-09 2022-04-20 Inpatient Lorna PinaW CARDIAC [id number] [facility] 05:41:00 17:44:00 [id number] [facility] Results Test Description Test Time Test Comments Results Result Comments Source COMPREHENSIVE METABOLIC PANEL 2022-12-30 03:18:00 Test Item Value Reference Range Interpretation Comme nts SODIUM (test code = NA) 137 mmol/L 135-145 N POTASSIUM (test code = K) 4.0 mmol/L 3.6-5.0 N CHLORIDE (test code = CL) 99 mmol/L 101-111 L CARBON DIOXIDE (test code 33 mmol/L 21-31 H = CO2) GLUCOSE (test code = GLU) 98 mg/dl 70-100 N BLOOD UREA NITROGEN (test 12 mg/dl 6-20 N code = BUN) GLOMERULAR FILTRATION >=60 max estimate >60 T he Glomerular Filtration RATE (test code = GFR) Rate is a calculated parameterbased on serum Creatinine, pat ient age and sex. GFR values less than 60 mL/min/1.73 squ are meters are indicative ofChronic Kidney Disease. Values less than 15 mL/min/ 1.73square meters indicate Kidney failure. The ca lculation forGFR is based on the CKD-EPI (2020) calculation. This formulais race indifferent and is the recommended for dominique for GFRby the [facility]critical [facility] hospital [facility] for Adults.The GFR will not ca lculate if the sex is unkn own or if thepatient's ag e is <18 years. CREATININE (test code = 0.36 mg/dL 0.44-1.03 L CREAT) TOTAL PROTEIN (test code 6.6 g/dL 6.7-8.2 L = PROT) ALBUMIN (test code = ALB) 2.5 g/dL 3.2-5.5 L CALCIUM (test code = CA) 8.6 mg/dL 8.5-10.5 N BILIRUBIN TOTAL (test 0.30 mg/dL 0.2-1.3 N code = BILT) SGOT/AST (test code = 32 U/L 10-42 N AST) SGPT/ALT (test code = 32 U/L 10-60 N ALT) ALKALINE PHOSPHATASE 96 U/L 42-121 N (test code = ALKP) INDEX HEMOLYSIS (test 0 Index/DL See_Comment [Auto mated message] The code = HEMINDEX) system [facility] generated this result transmit may reference range: 1 NORMAL . The reference range was not used to interpret th is result as normal/abnormal . INDEX ICTERIC (test code 1 Index/DL See_Comment [A utomated message] The = ICTINDEX) system which nerated this result transmit may reference range: 1 NORMAL . The reference range was not used to interpret th is result as normal/abnormal . INDEX LIPEMIA (test code 0 Index/DL See_Comment [A utomated message] The = LIPINDEX) system which nerated this result transmit may reference range: 1 NORMAL . The reference range was not used to interpret th is result as normal/abnormal . CBC W/AUTO [id number] 03:00:00 Test Item Value Reference Range Interpretation Comments WHITE BLOOD CELL (test code = 3.2 x10 3/uL 3.2-11.5 N WBC) RED BLOOD CELL (test code = 3.53 x10(6)/m 3.70-5.10 L RBC) HEMOGLOBIN (test code = HGB) 8.9 g/dL 12.0-15.0 L HEMATOCRIT (test code = HCT) 30.3 % 35.7-44.8 L MEAN CELL VOLUME (test code = 86 fL 80-100 N MCV) MEAN CELL HGB (test code = MCH) 25.2 pg 26.2-33.8 L MEAN CELL HGB CONCENTRATION 29.4 g/dL 30.0-34.0 L (test code = MCHC) RED CELL DISTRIBUTION WIDTH 16.9 % 11.3-14.5 H (test code = RDW) PLATELET COUNT (test code = 260 x10 3/uL 130-408 N PLT) MEAN PLATELET VOLUME (test code 9.8 fL 8.6-12.6 N = MPV) NEUTROPHIL % (test code = NT%) 43.4 % 40.0-70.0 N IMMATURE GRANULOCYTE % (test 0.0 % 0.0-2.0 N code = IG%) LYMPHOCYTE % (test code = LY%) 39.9 % 20-40 N MONOCYTE % (test code = MO%) 10.4 % 1-10 H EOSINOPHIL % (test code = EO%) 6.0 % 0.0-5.0 H BASOPHIL % (test code = BA%) 0.3 % 0.0-1.0 N NUCLEATED RBC % (test code = 0.0 % 0.0-0.9 N NRBC%) NEUTROPHIL # (test code = NT#) 1.4 x10 3/uL 1.6-7.2 L LYMPHOCYTE # (test code = LY#) 1.26 x10 3/uL 1.1-2.7 N MONOCYTE # (test code = MO#) 0.3 x10 3/uL 0.3-0.8 N EOSINOPHIL # (test code = EO#) 0.2 x10 3/uL 0.0-0.5 N BASOPHIL # (test code = BA#) 0.0 x10 3/uL 0.0-0.1 N CBC W/AUTO [id number] 14:13:00 Test Item Value Reference Range Interpretation Comments WHITE BLOOD CELL (test code = 11.3 x10 3/uL 3.2-11.5 N WBC) RED BLOOD CELL (test code = 4.09 x10(6)/m 3.70-5.10 N RBC) HEMOGLOBIN (test code = HGB) 9.8 g/dL 12.0-15.0 L HEMATOCRIT (test code = HCT) 32.9 % 35.7-44.8 L MEAN CELL VOLUME (test code = 80 fL 80-100 N MCV) MEAN CELL HGB (test code = MCH) 24.0 pg 26.2-33.8 L MEAN CELL HGB CONCENTRATION 29.8 g/dL 30.0-34.0 L (test code = MCHC) RED CELL DISTRIBUTION WIDTH 17.4 % 11.3-14.5 H (test code = RDW) PLATELET COUNT (test code = 349 x10 3/uL 130-408 N PLT) MEAN PLATELET VOLUME (test code 11.1 fL 8.6-12.6 N = MPV) NEUTROPHIL % (test code = NT%) 77.9 [...] NRBC%) NEUTROPHIL # (test code = NT#) 8.8 [...] 0.0 x10 3/uL 0.0-0.1 N COMPREHENSIVE METABOLIC [id number] 12:56:00 Test Item Value Reference Range Interpretation [...] N PHOSPHATASE (test code = ALKP) BLOOD [id number] 02:58:53 Test Item Value Reference Range Interpretation Comments CULTURE (BEAKER) (test No growth in 5 days code = 1095) The specimen volume collected for this blood culture was below the optimum (10 mL per bottle or 20 mL total). Use of lower volumes may adversely affect recovery and/or detection times of some organisms.BLOOD [id number] 02:58:53 Test Item Value Reference Range Interpretation Comments CULTURE (BEAKER) (test No growth in 5 days code = 1095) The specimen volume collected for this blood culture was below the optimum (10 mL per bottle or 20 mL total). Use of lower volumes may adversely affect recovery and/or detection times of some organisms.POC-Glucose [id number] 11:27:31 Test Item Value Reference Range Interpretation Comments POC-Glucose Meter (test 138 mg/dL 70-110 H : TE STED AT [facility] code = 1538) [address] [place] [address], [facility] 30: Corporate Development Officer/Techni amaya ID = [id number] for Hillman, Martha Lab Interpretation (test Abnormal code = 28920-3) [facility]-Glucose [id number] 11:27:31 Test Item Value Reference Range Interpretation Comments POC-Glucose Meter (test 138 mg/dL 70-110 H : TE STED AT [facility] code = 1538) [address] [place] [address], [facility] 30: Corporate Development Officer/Techni amaya ID = [id number] for Hillman, Martha Lab Interpretation (test Abnormal code = 39749-4) [facility]-Glucose [id number] 11:27:31 Test Item Value Reference Range Interpretation Comments POC-Glucose Meter (test 138 mg/dL 70-110 H : TE STED AT [facility] code = 1538) [address] [place] [address], [facility] 30: Corporate Development Officer/Techni amaya ID = [id number] for Hillman, Radford Lab Interpretation (test Abnormal code = 22737-6) [facility]-Glucose [id number] 11:27:31 Test Item Value Reference Range Interpretation Comments POC-Glucose Meter (test 138 mg/dL 70-110 H : TE STED AT [facility] code = 1538) [address] [place] [address], [facility] 30: Corporate Development Officer/Techni amaya ID = [id number] for Hillman, Martha Lab Interpretation (test Abnormal code = 72081-0) [facility]-Glucose [id number] 11:27:31 Test Item Value Reference Range Interpretation Comments POC-Glucose Meter (test 138 mg/dL 70-110 H : TE STED AT [facility] code = 1538) [address] [place] [address], [facility] 30: Corporate Development Officer/Techni amaya ID = [id number] for Hillman, Radford Lab Interpretation (test Abnormal code = 50589-9) [facility]-Glucose [id number] 11:27:31 Test Item Value Reference Range Interpretation Comments POC-Glucose Meter (test 138 mg/dL 70-110 H : TE STED AT [facility] code = 1538) [address] [facility], 770 30: Corporate Development Officer/Techni amaya ID = [id number] for Hillman, Martha Lab Interpretation (test Abnormal code = 67924-6) [facility] [id number] 11:27:31 Test Item Value Reference Range Interpretation Comments POC-Glucose Meter (test 138 mg/dL 70-110 H : TE STED AT [facility] code = 1538) [address] [facility], 770 30: Corporate Development Officer/Techni amaya ID = [id number] for Hillman, Radford Lab Interpretation (test Abnormal code = 84171-1) [facility]-GLUCOSE [id number] 11:27:31 Test Item Value Reference Range Interpretation Comments POC-GLUCOSE METER 138 mg/dL 70-110 H : TESTED A T [facility] 6720 (BEAKER) (test code = [facility] Billy [facility], 1538) [address]: Corporate Development Officer/Techni amaya ID = [id number] for Hillman, Martha TSH/FREE T4 IF [id number] 06:57:34 Test Item Value Reference Range Interpretation Comments THYROID STIMULATING HORMONE 0.620 uIU/mL 0.350-4.940 (BEAKER) (test code = 772) Corporate Development Officer ID - AMADO [id number] 06:47:51 Test Item Value Reference Range Interpretation Comments PHOSPHORUS (BEAKER) (test code = 5.0 mg/dL 2.3-4.7 H 604) Corporate Development Officer ID - AMADO MCOMPREHENSIVE METABOLIC [id number] 06:47:50 Test Item Value Reference Range Interpretation [...] not appl icable for dialysis patien ts Corporate Development Officer ID - AMADO MPOCT-GLUCOSE [id number] 06:29:35 Test Item Value Reference Range Interpretation Comments POC-GLUCOSE METER 142 mg/dL 70-110 H : TESTED A T [facility] 6720 (BEAKER) (test code = DELFINAEVIE Cervantes [facility], 1538) [address]: Corporate Development Officer/Techni amaya ID = [id number] for Shira Zamora CBC W/PLT COUNT & AUTO [id number] 06:13:59 Test Item Value Reference Range Interpretation [...] PERCENT (BEAKER) (test code = 2801) POCT-GLUCOSE [id number] 00:50:48 Test Item Value Reference Range Interpretation Comments POC-GLUCOSE METER 125 mg/dL 70-110 H : TESTED A T [facility] 6720 (BEAKER) (test code = [place] Cervantes [place], 1538) [address]: Corporate Development Officer/Techni amaya ID = [id number] for Shira Zamora POCT-GLUCOSE [id number] 18:12:31 Test Item Value Reference Range Interpretation Comments POC-GLUCOSE METER 132 mg/dL 70-110 H : TESTED A T [facility] 6720 (BEAKER) (test code = [place] Cervantes [facility], 1538) [address]: Corporate Development Officer/Techni amaya ID = [id number] for Martha Hillman PROTHROMBIN TIME/[id number] 17:11:45 Test Item Value Reference Range Interpretation Comments PROTIME (BEAKER) 13.0 seconds 11.9-14.2 (test code = 759) INR (BEAKER) (test 1.04 See_Comment [Automat ed message] code = 370) The system [employer] generated this result transmitted ref erence range: <=5.90. The reference range was not used to int erpret this result as normal/abnormal . RECOMMENDED COUMADIN/WARFARIN INR THERAPY RANGESSTANDARD DOSE: 2.0 - 3.0 Includes: PROPHYLAXIS for venous thrombosis, systemic embolization; TREATMENT for venous thrombosis and/or pulmonary embolus.HIGH RISK: Target INR is 2.5-3.5 for patients with mechanical heart valves.CBC W/PLT COUNT & AUTO [id number] 16:51:46 Test Item Value Reference Range Interpretation [...] = 2801) RAD, CHEST, 1 VIEW, NON [id number] 14:54:00Reason for exam:->SOBShould this be performed at the bedside?->Yes [facility]ILLALOBOS : 1975 Sex: FFINAL [...] Hercules Verified Date/Time: 06/24/2022 14:54:31 Reading Location: [address] Reading Room -GLUCOSE [id number] 11:25:55 Test Item Value Reference Range Interpretation Comments POC-GLUCOSE METER 141 mg/dL 70-110 H : TESTED A T [facility] 6720 (BEAKER) (test code = [facility], 1538) [address]: Corporate Development Officer/Techni amaya ID = [id number] for Martha Hillman POCT-GLUCOSE [id number] 06:47:49 Test Item Value Reference Range Interpretation Comments POC-GLUCOSE METER 119 mg/dL 70-110 H : TESTED A T [facility] 6720 (BEAKER) (test code = [facility], 1538) [address]: Corporate Development Officer/Techni amaya ID = [id number] for TIM ABDULLAHI COMPREHENSIVE METABOLIC [id number] 04:52:02 Test Item Value Reference Range Interpretation [...] not appl icable for dialysis patien ts Corporate Development Officer ID - PIRUSS [id number] 04:52:02 Test Item Value Reference Range Interpretation Comments PHOSPHORUS (BEAKER) (test code = 3.9 mg/dL 2.3-4.7 604) Corporate Development Officer ID - MEE LCBC W/PLT COUNT & AUTO [id number] 04:10:24 Test Item Value Reference Range Interpretation [...] SARS-Co V-2 (test code = target nucleic 76268-8) acids are not detected in thi s [...] revoked sooner. Fact Sheet for Healthcare Providers: https://www.[employer]/Documents/Xp ert%20Xpress%20SAR S%20CoV-2/Fact%20S heets/302-3802%20S ARS-COV-2%20HEALTH CARE%20PROVIDERS%2 0FACT%20SHEET.pdf Fact Sheet for Healthcare Patients: https://www.[employer]/Documents/Xp ert%20Xpress%20SAR S%20CoV-2/Fact%20S heets/302-3801%20S ARS-COV-2%20PATIEN T%20FACT%20SHEET.p df Lab Interpretation Normal (test code = 09641-3) [facility]2022-06-24 04:05:11 Test Item Value Reference Interpretation Comments Range SARS-COV2/RT-PCR Negative Negative The SARS-Co V-2 (test code = target nucleic 08260-5) acids are not detected in thi s [...] revoked sooner. Fact Sheet for Healthcare Providers: https://www.[employer]/Documents/Xp ert%20Xpress%20SAR S%20CoV-2/Fact%20S heets/302-3802%20S ARS-COV-2%20HEALTH CARE%20PROVIDERS%2 0FACT%20SHEET.pdf Fact Sheet for Healthcare Patients: https://www.[employer]/Documents/Xp ert%20Xpress%20SAR S%20CoV-2/Fact%20S heets/302-3801%20S ARS-COV-2%20PATIEN T%20FACT%20SHEET.p df Lab Interpretation Normal (test code = 41778-4) [facility]2022-06-24 04:05:11 Test Item Value Reference Interpretation Comments Range SARS-COV2/RT-PCR Negative Negative The SARS-Co V-2 (test code = target nucleic 33102-0) acids are not detected in thi s [...] revoked sooner. Fact Sheet for Healthcare Providers: https://www.[employer]/Documents/Xp ert%20Xpress%20SAR S%20CoV-2/Fact%20S heets/302-3802%20S ARS-COV-2%20HEALTH CARE%20PROVIDERS%2 0FACT%20SHEET.pdf Fact Sheet for Healthcare Patients: https://www.[employer]/Documents/Xp ert%20Xpress%20SAR S%20CoV-2/Fact%20S heets/302-3801%20S ARS-COV-2%20PATIEN T%20FACT%20SHEET.p df Lab Interpretation Normal (test code = 59299-3) [facility] 04:05:11 Test Item Value Reference Interpretation Comments Range SARS-COV2/RT-PCR Negative Negative The SARS-Co V-2 (test code = target nucleic 82263-2) acids are not detected in thi s [...] revoked sooner. Fact Sheet for Healthcare Providers: https://www.[employer]/Documents/Xp ert%20Xpress%20SAR S%20CoV-2/Fact%20S heets/302-3802%20S ARS-COV-2%20HEALTH CARE%20PROVIDERS%2 0FACT%20SHEET.pdf Fact Sheet for Healthcare Patients: https://[employer]/Documents/Xp ert%20Xpress%20SAR S%20CoV-2/Fact%20S heets/302-3801%20S ARS-COV-2%20PATIEN T%20FACT%20SHEET.p df Lab Interpretation Normal (test code = 16070-0) [facility]24 04:05:11 Test Item Value Reference Interpretation Comments Range SARS-COV2/RT-PCR Negative Negative The SARS-Co V-2 (test code = target nucleic 83966-4) acids are not detected in thi s specimen. Negat palbo results do not preclude SARS-C oV-2 infection [...] individual s suspected of COVID-19 by the healthcare provider. TONY (test code = This [...] revoked sooner. Fact Sheet for Healthcare Providers: https://www.[employer]/Documents/Xp ert%20Xpress%20SAR S%20CoV-2/Fact%20S heets/302-3802%20S ARS-COV-2%20HEALTH CARE%20PROVIDERS%2 0FACT%20SHEET.pdf Fact Sheet for Healthcare Patients: https://[employer]/Documents/Xp ert%20Xpress%20SAR S%20CoV-2/Fact%20S heets/302-3801%20S ARS-COV-2%20PATIEN T%20FACT%20SHEET.p df Lab Interpretation Normal (test code = 78151-5) [facility]24 04:05:11 Test Item Value Reference Interpretation Comments Range SARS-COV2/RT-PCR Negative Negative The SARS-Co V-2 (test code = target nucleic 11897-0) acids are not detected in thi s [...] revoked sooner. Fact Sheet for Healthcare Providers: https://www.[employer]/Documents/Xp ert%20Xpress%20SAR S%20CoV-2/Fact%20S heets/302-3802%20S ARS-COV-2%20HEALTH CARE%20PROVIDERS%2 0FACT%20SHEET.pdf Fact Sheet for Healthcare Patients: https://www.[employer]/Documents/Xp ert%20Xpress%20SAR S%20CoV-2/Fact%20S heets/302-3801%20S ARS-COV-2%20PATIEN T%20FACT%20SHEET.p df Lab Interpretation Normal (test code = 86991-0) [facility]-24 04:05:11 Test Item Value Reference Interpretation Comments Range SARS-COV2/RT-PCR Negative Negative The SARS-Co V-2 (test code = target nucleic 72954-0) acids are not detected in thi s [...] revoked sooner. Fact Sheet for Healthcare Providers: https://www.[employer]/Documents/Xp ert%20Xpress%20SAR S%20CoV-2/Fact%20S heets/302-3802%20S ARS-COV-2%20HEALTH CARE%20PROVIDERS%2 0FACT%20SHEET.pdf Fact Sheet for Healthcare Patients: https://www.[employer]/Documents/Xp ert%20Xpress%20SAR S%20CoV-2/Fact%20S heets/302-3801%20S ARS-COV-2%20PATIEN T%20FACT%20SHEET.p df Lab Interpretation Normal (test code = 96010-9) [facility])2022-06-24 04:05:11 Test Item Value Reference Range Interpretation Comments SARS-COV2/RT-PCR Negative Negative The SARS-Co V-2 target (test code = nucleic acids a re not 8673060) detected in thi s specimen. Negative result [...] revoked sooner. Fact Sheet for Healthcare Providers: https://www.[employer]/Documents/Xpert%20Xpress%20SARS%20CoV-2/Fact%20Sheets/302-3802%51MBQA-JMS-6%20 HEALTHCARE%20PROVIDERS%20FACT%20SHEET.pdf Fact Sheet for Healthcare Patients: https://www.[employer]/Documents/Xpert%20Xp ress%20SARS%20CoV-2/Fact%20Sheets/302-3801%71MCOY-ERR-7%20PATIENT%20FACT%20SHEET .pdfPOCT-GLUCOSE [id number] 00:46:12 Test Item Value Reference Range Interpretation Comments POC-GLUCOSE METER 122 mg/dL 70-110 H : TESTED A T [facility] 6720 (SwipeClockAKER) (test code = [facility], 1538) 15310: Corporate Development Officer/Techni amaya ID = [id number] for TIM ABDULLAHI POCT-GLUCOSE [id number] 17:56:17 Test Item Value Reference Range Interpretation Comments POC-GLUCOSE METER 121 mg/dL 70-110 H : TESTED A T [facility] 6720 (BEAKER) (test code = [facility], 1538) 64148: Corporate Development Officer/Techni amaya ID = [id number] for Verna Hillmania POCT-GLUCOSE [id number] 11:17:17 Test Item Value Reference Range Interpretation Comments POC-GLUCOSE METER 116 mg/dL 70-110 H : TESTED A T [facility] 6720 (BEAKER) (test code = [facility], 1538) 23507: Corporate Development Officer/Techni amaya ID = [id number] for Hillman Martha COMPREHENSIVE METABOLIC [id number] 09:13:54 Test Item Value Reference Range Interpretation [...] not appl icable for dialysis patien ts Corporate Development Officer ID - AMADO [id number] 09:13:54 Test Item Value Reference Range Interpretation Comments PHOSPHORUS (BEAKER) (test code = 3.1 mg/dL 2.3-4.7 604) Corporate Development Officer ID - AMADO MPOCT-GLUCOSE [id number] 07:11:48 Test Item Value Reference Range Interpretation Comments POC-GLUCOSE METER 100 mg/dL 70-110 : TESTED A T [facility] 6720 (BEAKER) (test code = [place], 1538) 75279: Corporate Development Officer/Techni amaya ID = [id number] for TIM ABDULLAHI POCT-GLUCOSE [id number] 06:46:51 Test Item Value Reference Range Interpretation Comments POC-GLUCOSE METER 111 mg/dL 70-110 H : TESTED A T [facility] 6720 (BEAKER) (test code = [place] [facility], 1538) 57601: Corporate Development Officer/Techni amaya ID = [id number] for Ramona Hurley CBC W/PLT COUNT & AUTO [id number] 04:22:31 Test Item Value Reference Range Interpretation [...] PERCENT (BEAKER) (test code = 2801) POCT-GLUCOSE [id number] 23:45:27 Test Item Value Reference Range Interpretation Comments POC-GLUCOSE METER 98 mg/dL 70-110 : TESTED A T [facility] 6720 (BEAKER) (test code = [facility], 153) 46281: Corporate Development Officer/Techni amaya ID = [id number] for Mushtaq enInesRamona POCT-GLUCOSE [id number] 18:07:58 Test Item Value Reference Range Interpretation Comments POC-GLUCOSE METER 114 mg/dL 70-110 H : TESTED A T [facility] 6720 (BEAKER) (test code = [facility], 153) 12700: Corporate Development Officer/Techni amaya ID = [id number] for Wi lson, Balaji POCT-GLUCOSE [id number] 11:54:44 Test Item Value Reference Range Interpretation Comments POC-GLUCOSE METER 135 mg/dL 70-110 H : TESTED A T [facility] 6720 (BEAKER) (test code = [facility], 153) 37501: Corporate Development Officer/Techni amaya ID = [id number] for DARRELL ARGUETA VANCOMYCIN LEVEL, [id number] 10:09:47 Test Item Value Reference Range Interpretation Comments VANCOMYCIN TROUGH (BEAKER) (test 21.9 ug/mL 10.0-20.0 H code = 522) Corporate Development Officer ID - TOM WPOCT-GLUCOSE [id number] 07:50:39 Test Item Value Reference Range Interpretation Comments POC-GLUCOSE METER 115 mg/dL 70-110 H : TESTED A T [facility] 6720 (BEAKER) (test code = [place], 1538) 50412: Corporate Development Officer/Techni amaya ID = [id number] for DARRELL ARGUETA [id number] 04:52:14 Test Item Value Reference Range Interpretation Comments PHOSPHORUS (BEAKER) (test code = 2.7 mg/dL 2.3-4.7 604) Corporate Development Officer ID Norman SANTOS WCOMPREHENSIVE METABOLIC [id number] 04:52:13 Test Item Value Reference Range Interpretation [...] not appl icable for dialysis patien ts Corporate Development Officer ID - TOM WPOCT-GLUCOSE [id number] 04:48:19 Test Item Value Reference Range Interpretation Comments POC-GLUCOSE METER 121 mg/dL 70-110 H : TESTED A T [facility] 6720 (BEAKER) (test code = [place] [facility], 1538) 29282: Corporate Development Officer/Techni amaya ID = [id number] for Ilana Blanco CBC W/PLT COUNT & AUTO [id number] 04:04:07 Test Item Value Reference Range Interpretation [...] PERCENT (BEAKER) (test code = 2801) POCT-GLUCOSE [id number] 00:36:13 Test Item Value Reference Range Interpretation Comments POC-GLUCOSE METER 126 mg/dL 70-110 H : TESTED A T [facility] 6720 (BEAKER) (test code = [facility], 1538) 27829: Corporate Development Officer/Techni amaya ID = [id number] for Liza alvarez Ilana POCT-GLUCOSE [id number] 18:10:20 Test Item Value Reference Range Interpretation Comments POC-GLUCOSE METER 94 mg/dL 70-110 : TESTED A T [facility] 6720 (BEAKER) (test code = [facility], 1538) 59553: Corporate Development Officer/Techni amaya ID = [id number] for Corie Donovan COMPREHENSIVE METABOLIC [id number] 16:49:26 Test Item Value Reference Range Interpretation [...] not appl icable for dialysis patien ts Corporate Development Officer ID - NJQLBGAPQZYEYGZ6064-67-33 16:49:26 Test Item Value Reference Range Interpretation Comments PHOSPHORUS (BEAKER) (test code = 2.9 mg/dL 2.3-4.7 604) Corporate Development Officer ID - ADMINBLOOD [id number] 14:00:56 Test Item Value Reference Range Interpretation Comments CULTURE (BEAKER) (test No growth in 5 days code = 1095) The specimen volume collected for this blood culture was below the optimum (10 mL per bottle or 20 mL total). Use of lower volumes may adversely affect recovery and/or detection times of some organisms.BLOOD [id number] 13:00:49 Test Item Value Reference Range Interpretation Comments CULTURE (BEAKER) (test No growth in 5 days code = 1095) POCT-GLUCOSE [id number] 11:08:44 Test Item Value Reference Range Interpretation Comments POC-GLUCOSE METER 130 mg/dL 70-110 H : TESTED A T [facility] 6720 (BEAKER) (test code = [facility], 1538) 66816: Corporate Development Officer/Techni amaya ID = [id number] for Corie Munoz POCT-GLUCOSE [id number] 07:00:22 Test Item Value Reference Range Interpretation Comments POC-GLUCOSE METER 134 mg/dL 70-110 H : TESTED A T [facility] 6720 (BEAKER) (test code = [facility], 1538) 94315: Corporate Development Officer/Techni amaya ID = [id number] for Leighton Rodriguez CBC W/PLT COUNT & AUTO [id number] 05:42:30 Test Item Value Reference Range Interpretation [...] PERCENT (BEAKER) (test code = 2801) POCT-GLUCOSE [id number] 02:15:13 Test Item Value Reference Range Interpretation Comments POC-GLUCOSE METER 98 mg/dL 70-110 : TESTED A T [facility] 6720 (BEAKER) (test code = [facility], 1538) 36511: Corporate Development Officer/Techni amaya ID = [id number] for Puli do, Nestar POCT-GLUCOSE [id number] 00:10:22 Test Item Value Reference Range Interpretation Comments POC-GLUCOSE METER 83 mg/dL 70-110 : TESTED A T [facility] 6720 (BEAKER) (test code = [facility] [employer] [facility], 1538) 72908: Corporate Development Officer/Techni amaya ID = [id number] for Puli do, Nestar CT, BRAIN, WITHOUT [id number] 22:00:00Reason for Exam (Free Text) - Addiitonal information for Radiologist->new rigidity [facility] : 1975 Sex: [...] 06/20/2022 22:00:15 RAD, CHEST, 1 VIEW, NON [id number] 21:29:00Reason for exam:->resp distress [facility] : 1975 Sex: FFINAL [...] Nichols Verified Date/Time: 06/20/2022 21:29:34 Reading Location: [address] Transitional Reading Room Electronicallysigned by: ERWIN NICHOLS MD on 06/20/2022 09:29 PMHIGH SENSITIVITY TROPONIN [id number] 21:08:36 Test Item Value Reference Range Interpretation Comments HIGH SENSITIVITY < pg/ml See_Comment [Automated message] TROPONIN I (test code = The system which 7891887) generated this result transmitted ref erence range: <=17. Th e reference range was not used to interpr et this result as normal/abnormal . Corporate Development Officer ID - BSThe WE[employer] MECHANIC STAT High Sensitivity Troponin-I results should be used in conjunctionwith other diagnostic information such as ECG, clinical observations and information, and patient symptoms to aid in the diagnosis of PA.COMPREHENSIVE METABOLIC [id number] 21:07:21 Test Item Value Reference Range Interpretation [...] not appl icable for dialysis patien ts Corporate Development Officer ID - [id number] 21:04:56 Test Item Value Reference Range Interpretation Comments PHOSPHORUS (BEAKER) (test code = 3.3 mg/dL 2.3-4.7 604) Corporate Development Officer ID - [id number] 21:04:55 Test Item Value Reference Range Interpretation Comments MAGNESIUM (BEAKER) (test code = 1.7 mg/dL 1.6-2.6 627) Corporate Development Officer ID - BSCBC W/PLT COUNT & AUTO [id number] 20:50:12 Test Item Value Reference Range Interpretation [...] (BEAKER) (test code = 2801) LACTIC ACID, [id number] 20:43:09 Test Item Value Reference Range Interpretation Comments LACTATE BLOOD VENOUS (2) (BEAKER) 2.63 mmol/L 0.50-2.20 H (test code = 2872) Corporate Development Officer ID - [id number]-[id number] 20:22:02 Test Item Value Reference Range Interpretation Comments POC-Glucose (test code = 134 mg/dL 70-110 H : [facility] [address] [place] [address], 770 30: Corporate Development Officer/Techni amaya ID = [id number] for JOSEFA, TAL Lab Interpretation (test Abnormal code = 48581-9) [id number] 20:22:02 Test Item Value Reference Range Interpretation Comments POC-Glucose (test code = 134 mg/dL 70-110 H : T ESTED AT [facility] 1855) 6720 [facility], 770 30: Corporate Development Officer/Techni amaya ID = [id number] for JOSEFA, TAL Lab Interpretation (test Abnormal code = 96692-0) [facility] [id number] 20:22:02 Test Item Value Reference Range Interpretation Comments POC-Glucose (test code = 134 mg/dL 70-110 H : T ESTED AT [facility] 1855) 20 [facility], 770 30: Corporate Development Officer/Techni amaya ID = [id number] for JOSEFA, TAL Lab Interpretation (test Abnormal code = 90560-3) [facility] [id number] 20:22:02 Test Item Value Reference Range Interpretation Comments POC-Glucose (test code = 134 mg/dL 70-110 H : T ESTED AT [facility] 1855) [address] [place] [address], 770 30: Corporate Development Officer/Techni amaya ID = [id number] for JOSEFA, TAL Lab Interpretation (test Abnormal code = 52406-0) [facility]2022-09-26 20:22:02 Test Item Value Reference Range Interpretation Comments POC-Glucose (test code = 134 mg/dL 70-110 H : T ESTED AT [facility] 1855) [address] [place] [address], 770 30: Corporate Development Officer/Techni amaya ID = [id number] for JOSEFA, TAL Lab Interpretation (test Abnormal code = 96420-5) [facility]2022-09-26 20:22:02 Test Item Value Reference Range Interpretation Comments POC-Glucose (test code = 134 mg/dL 70-110 H : T ESTED AT [facility] 1855) [address] [place] [address], 770 30: Corporate Development Officer/Techni amaya ID = [id number] for JOSEFA, TAL Lab Interpretation (test Abnormal code = 06738-1) [facility]2022-09-26 20:22:02 Test Item Value Reference Range Interpretation Comments POC-Glucose (test code = 134 mg/dL 70-110 H : T ESTED AT [facility] 1855) [address] [place] [address], 770 30: Corporate Development Officer/Techni amaya ID = [id number] for JOSEFA, TAL Lab Interpretation (test Abnormal code = 22927-6) [facility]2022-09-26 20:22:02 Test Item Value Reference Range Interpretation Comments POC-GLUCOSE (BEAKER) 134 mg/dL 70-110 H : TESTE D AT [facility] 6720 (test code = 1855) [facility], [address]: Corporate Development Officer/Techni amaya ID = [id number] for SUBI A, TAL [id number]-[id number] 20:22:01 Test Item Value Reference Range Interpretation Comments POC-Hemoglobin (test code 11.6 g/dL 12.0-15.0 L : [facility] [address] [place] [address], 770 30: Corporate Development Officer/Techni amaya ID = [id number] for JOSEFA, TAL Lab Interpretation (test Abnormal code = 62634-8) [facility]hmGNLZ-CWKSCMIHLW2725-53-26 20:22:01 Test Item Value Reference Range Interpretation Comments POC-Hematocrit (test code 34 % 36-45 L : = 1857) Corporate Development Officer/Techni amaya ID = [id number] for JOSEFA, TAL Lab Interpretation (test Abnormal code = 73158-7) [facility] HospitalZinxmiDHIM-VYCLWGDEBJ9635-39-26 20:22:01 Test Item Value Reference Range Interpretation Comments POC-Hemoglobin (test code 11.6 g/dL 12.0-15.0 L : TESTED AT [facility] = 1856) [address] [place] [address], 770 30: Corporate Development Officer/Techni amaya ID = [id number] for JOSEFA, TAL Lab Interpretation (test Abnormal code = 47373-4) [facility] HospitalDbzgkrTHXH-NVMQLSAQXI6292-56-26 20:22:01 Test Item Value Reference Range Interpretation Comments POC-Hematocrit (test code 34 % 36-45 L : = 1857) Corporate Development Officer/Techni amaya ID = [id number] for JOSEFA, TAL Lab Interpretation (test Abnormal code = 66613-7) [facility] HospitalHjflgeFMYM-HLBRJTCEAX1184-96-26 20:22:01 Test Item Value Reference Range Interpretation Comments POC-Hemoglobin (test code 11.6 g/dL 12.0-15.0 L : TESTED AT [facility] = 1856) [address] [place] [address], 770 30: Corporate Development Officer/Techni amaya ID = [id number] for JOSEFA, TAL Lab Interpretation (test Abnormal code = 12952-6) [facility] HospitalLsqkymKIUJ-JDRFWCJCJS8251-37-26 20:22:01 Test Item Value Reference Range Interpretation Comments POC-Hematocrit (test code 34 % 36-45 L : = 1857) Corporate Development Officer/Techni amaya ID = [id number] for JOSEFA, TAL Lab Interpretation (test Abnormal code = 75605-8) [facility]-FKFWLYRWFX5172-66-12 20:22:01 Test Item Value Reference Range Interpretation Comments POC-Hemoglobin (test code 11.6 g/dL 12.0-15.0 L : TESTED AT [facility] = 1856) 67[address] [facility], 770 30: Corporate Development Officer/Techni amaya ID = [id number] for JOSEFA, TAL Lab Interpretation (test Abnormal code = 96404-2) [facility]-ICOEIUNZEC7583-91-39 20:22:01 Test Item Value Reference Range Interpretation Comments POC-Hematocrit (test code 34 % 36-45 L : = 1857) Corporate Development Officer/Techni amaya ID = [id number] for JOSEFA, TAL Lab Interpretation (test Abnormal code = 75797-8) [facility]-QXCRYXTBUH9533-29-66 20:22:01 Test Item Value Reference Range Interpretation Comments POC-Hemoglobin (test code 11.6 g/dL 12.0-15.0 L : TESTED AT [facility] = 1856) 20 [facility], 770 30: Corporate Development Officer/Techni amaya ID = [id number] for JOSEFA, TAL Lab Interpretation (test Abnormal code = 30760-8) [facility]-EMWNTSZQAG6353-70-58 20:22:01 Test Item Value Reference Range Interpretation Comments POC-Hematocrit (test code 34 % 36-45 L : = 1857) Corporate Development Officer/Techni amaya ID = [id number] for JOSEFA, TAL Lab Interpretation (test Abnormal code = 60908-4) [facility]-EFTHOLGSVB2495-65-91 20:22:01 Test Item Value Reference Range Interpretation Comments POC-Hemoglobin (test code 11.6 g/dL 12.0-15.0 L : TESTED AT [facility] = 1856) 20 [facility], 770 30: Corporate Development Officer/Techni amaya ID = [id number] for JOSEFA, TAL Lab Interpretation (test Abnormal code = 67912-6) [facility]-MQYHOJBKZW7819-22-52 20:22:01 Test Item Value Reference Range Interpretation Comments POC-Hematocrit (test code 34 % 36-45 L : = 1857) Corporate Development Officer/Techni amaya ID = [id number] for JOSEFA, TAL Lab Interpretation (test Abnormal code = 19637-2) [facility] HospitalJryvngAUHR-XRDKKXRXCY2651-32-26 20:22:01 Test Item Value Reference Range Interpretation Comments POC-Hemoglobin (test code 11.6 g/dL 12.0-15.0 L : TESTED AT [facility] = 1856) 6720 [facility], 770 30: Corporate Development Officer/Techni amaya ID = [id number] for JOSEFA, TAL Lab Interpretation (test Abnormal code = 50864-0) [facility] HospitalYwgpigNWTX-ELUHLFDRPX9800-79-26 20:22:01 Test Item Value Reference Range Interpretation Comments POC-Hematocrit (test code 34 % 36-45 L : = 1857) Corporate Development Officer/Techni amaya ID = [id number] for JOSEFA, TAL Lab Interpretation (test Abnormal code = 55030-8) [facility]-YDPSEFUSUX8920-18-75 20:22:01 Test Item Value Reference Range Interpretation Comments POC-HEMOGLOBIN 11.6 g/dL 12.0-15.0 L : TESTED AT [facility] 6720 (BEAKER) (test code [facility], = 1856) [address]: Corporate Development Officer/Techni amaya ID = [id number] for SUBI A, TAL EKEL-XYZLJNEPMK5189-10-26 20:22:01 Test Item Value Reference Range Interpretation Comments POC-HEMATOCRIT 34 % 36-45 L : Corporate Development Officer/Te chnician ID = (BEAKER) (test code = 765744 for JOSEFA, TAL 1857) RPR-Vwjelwqta6307-18-26 20:21:54 Test Item Value Reference Range Interpretation Comments POC-Potassium (test code 4.8 meq/L 3.6-5.5 : T ESTED AT [facility] = 1540) 67[address] [facility], 770 30: Corporate Development Officer/Techni amaya ID = [id number] for JOSEFA, TAL Lab Interpretation (test Normal code = 09231-0) [facility] HospitalPOC-Zkquptchd2271-02-38 20:21:54 Test Item Value Reference Range Interpretation Comments POC-Potassium (test code 4.8 meq/L 3.6-5.5 : T ESTED AT [facility] = 1540) [address] [place] [address], 770 30: Corporate Development Officer/Techni amaya ID = [id number] for JOSEFA, TAL Lab Interpretation (test Normal code = 87323-9) [facility]Eocpqwtmy3973-74-24 20:21:54 Test Item Value Reference Range Interpretation Comments POC-Potassium (test code 4.8 meq/L 3.6-5.5 : [facility] 1540[facility] [address] [place] [address], 770 30: Corporate Development Officer/Techni amaya ID = [id number] for JOSEFA, TAL Lab Interpretation (test Normal code = 64450-9) [facility] HospitalIzzeqbwif3506-70-91 20:21:54 Test Item Value Reference Range Interpretation Comments POC-Potassium (test code 4.8 meq/L 3.6-5.5 : T ESTED AT [facility] = 1540) [address] [place] [address], [facility] 30: Corporate Development Officer/Techni amaya ID = [id number] for JOSEFA, TAL Lab Interpretation (test Normal code = 54671-2) [facility] HospitalUnlevdeaj3767-17-81 20:21:54 Test Item Value Reference Range Interpretation Comments POC-Potassium (test code 4.8 meq/L 3.6-5.5 : T ESTED AT [facility] = 1540) [address] [place] [address], [facility] 30: Corporate Development Officer/Techni amaya ID = [id number] for JOSEFA, TAL Lab Interpretation (test Normal code = 80615-7) [facility] HospitalMwcdyqacl1449-56-41 20:21:54 Test Item Value Reference Range Interpretation Comments POC-Potassium (test code 4.8 meq/L 3.6-5.5 : T ESTED AT [facility] = 1540) [address] [place] [address], [facility] 30: Corporate Development Officer/Techni amaya ID = [id number] for JOSEFA, TAL Lab Interpretation (test Normal code = 84443-8) [facility] HospitalMbngyxgut8209-11-62 20:21:54 Test Item Value Reference Range Interpretation Comments POC-Potassium (test code 4.8 meq/L 3.6-5.5 : T ESTED AT [facility] = 1540) [address] [place] [address], 770 30: Corporate Development Officer/Techni amaya ID = [id number] for JOSEFA, TAL Lab Interpretation (test Normal code = 67913-0) [facility] HospitalPOCT-AMVVBDVDB8269-16-96 20:21:54 Test Item Value Reference Range Interpretation Comments POC-POTASSIUM 4.8 meq/L 3.6-5.5 : TESTED AT [facility] 6720 (BEAKER) (test code [facility], = 1540) [address]: Corporate Development Officer/Techni amaya ID = [id number] for SUBI A, TAL POC-Blood gases, wvmmvr2199-63-26 20:21:53 Test Item Value Reference Range Interpretation Comments Temp. Celsius-POC (test 99.3 code = 1834) FIO2-POC (test code = 100 1835) pH, Venous-POC (test 7.410 7.320-7.420 : TESTE D AT [facility] code = 1842) 6720 [facility], [address] PCO2, Venous-POC (test 50.2 See_Comment If pO [...] meq/L -2.0-3.0 H : code = 1847) Corporate Development Officer/Techni amaya ID = [id number] for JOSEFA, TAL Lab Interpretation Abnormal (test code = 60423-1) [facility] HospitalPOC-Cmqftw6452-95-39 20:21:53 Test Item Value Reference Range Interpretation Comments POC-Sodium (test code = 140 meq/L 135-148 : TE STED AT [facility] 1542) 67[address] [facility], 770 30: Corporate Development Officer/Techni amaya ID = [id number] for JOSEFA, TAL Lab Interpretation (test Normal code = 98143-4) [facility]-Blood gases, [id number] 20:21:53 Test Item Value Reference Range Interpretation Comments Temp. Celsius-POC (test 99.3 code = 1834) FIO2-POC (test code = 100 1835) pH, Venous-POC (test 7.410 7.320-7.420 : TESTE D AT [facility] code = 1842) [address] [place], [address] PCO2, Venous-POC (test 50.2 See_Comment If pO [...] mated message] code = 1844) The system Code Rebel h generated this result transmit may reference range : 25.0 - 40.0 mm Hg. The reference r julia was not used to interpret this result as normal/abnormal . SO2, Venous-POC (test 63.0 % 40.0-70.0 code = 1845) HCO3, Venous-POC (test 31.7 meq/L 21.0-29.0 H code = 1846) BE, Venous-POC (test 7.0 meq/L -2.0-3.0 H : code = 1847) Corporate Development Officer/Techni amaya ID = [id number] for JOSEFA, TAL Lab Interpretation Abnormal (test code = 81337-3) [facility]-[id number] 20:21:53 Test Item Value Reference Range Interpretation Comments POC-Sodium (test code = 140 meq/L 135-148 : TE STED AT [facility] 1542) [address] [facility], [address]: Corporate Development Officer/Techni amaya ID = [id number] for JOSEFA, TAL Lab Interpretation (test Normal code = 00032-9) [facility]-Blood gases, [id number] 20:21:53 Test Item Value Reference Range Interpretation Comments Temp. Celsius-POC (test 99.3 code = 1834) FIO2-POC (test code = 100 1835) pH, Venous-POC (test 7.410 7.320-7.420 : TESTE D AT [facility] code = 1842) [address] [place], [address] PCO2, Venous-POC (test 50.2 See_Comment If pO [...] mated message] code = 1844) The system Code Rebel h generated this result transmit may reference range : 25.0 - 40.0 mm Hg. The reference r julia was not used to interpret this result as normal/abnormal . SO2, Venous-POC (test 63.0 % 40.0-70.0 code = 1845) HCO3, Venous-POC (test 31.7 meq/L 21.0-29.0 H code = 1846) BE, Venous-POC (test 7.0 meq/L -2.0-3.0 H : code = 1847) Corporate Development Officer/Techni amaya ID = [id number] for JOSEFA, TAL Lab Interpretation Abnormal (test code = 96936-2) [facility]-[id number] 20:21:53 Test Item Value Reference Range Interpretation Comments POC-Sodium (test code = 140 meq/L 135-148 : TE STED AT [facility] 1542) [address] [facility] [place], [address]: Corporate Development Officer/Techni amaya ID = [id number] for JOSEFA, TAL Lab Interpretation (test Normal code = 87904-1) [facility]-Blood gases, [id number] 20:21:53 Test Item Value Reference Range Interpretation Comments Temp. Celsius-POC (test 99.3 code = 1834) FIO2-POC (test code = 100 1835) pH, Venous-POC (test 7.410 7.320-7.420 : TESTE D AT [facility] code = 1842) [address] [facility], [address] PCO2, Venous-POC (test 50.2 See_Comment If pO [...] mated message] code = 1844) The system Code Rebel h generated this result transmit may reference range : 25.0 - 40.0 mm Hg. The reference r julia was not used to interpret this result as normal/abnormal . SO2, Venous-POC (test 63.0 % 40.0-70.0 code = 1845) HCO3, Venous-POC (test 31.7 meq/L 21.0-29.0 H code = 1846) BE, Venous-POC (test 7.0 meq/L -2.0-3.0 H : code = 1847) Corporate Development Officer/Techni amaya ID = [id number] for JOSEFA, TAL Lab Interpretation Abnormal (test code = 47760-8) [facility]-[id number] 20:21:53 Test Item Value Reference Range Interpretation Comments POC-Sodium (test code = 140 meq/L 135-148 : TE STED AT [facility] 1542) [address] [facility], [address]: Corporate Development Officer/Techni amaya ID = [id number] for JOSEFA, TAL Lab Interpretation (test Normal code = 46294-4) [facility]-Blood gases, [id number] 20:21:53 Test Item Value Reference Range Interpretation Comments Temp. Celsius-POC (test 99.3 code = 1834) FIO2-POC (test code = 100 1835) pH, Venous-POC (test 7.410 7.320-7.420 : TESTE D AT [facility] code = 1842) [address] [place], [address] PCO2, Venous-POC (test 50.2 See_Comment If pO [...] mated message] code = 1844) The system [employer] generated this result transmit may reference range : 25.0 - 40.0 mm Hg. The reference r julia was not used to interpret this result as normal/abnormal . SO2, Venous-POC (test 63.0 % 40.0-70.0 code = 1845) HCO3, Venous-POC (test 31.7 meq/L 21.0-29.0 H code = 1846) BE, Venous-POC (test 7.0 meq/L -2.0-3.0 H : code = 1847) Corporate Development Officer/Techni amaya ID = [id number] for JOSEFA, TAL Lab Interpretation Abnormal (test code = 63227-1) [facility]-[id number] 20:21:53 Test Item Value Reference Range Interpretation Comments POC-Sodium (test code = 140 meq/L 135-148 : TE STED AT [facility] 1542) [address] [facility] [place], [address]: Corporate Development Officer/Techni amaya ID = [id number] for JOSEFA, TAL Lab Interpretation (test Normal code = 62575-9) [facility]-Blood gases, [id number] 20:21:53 Test Item Value Reference Range Interpretation Comments Temp. Celsius-POC (test 99.3 code = 1834) FIO2-POC (test code = 100 1835) pH, Venous-POC (test 7.410 7.320-7.420 : TESTE D AT [facility] code = 1842) [address] [place], [address] PCO2, Venous-POC (test 50.2 See_Comment If pO [...] mated message] code = 1844) The system [employer] generated this result transmit may reference range : 25.0 - 40.0 mm Hg. The reference r julia was not used to interpret this result as normal/abnormal . SO2, Venous-POC (test 63.0 % 40.0-70.0 code = 1845) HCO3, Venous-POC (test 31.7 meq/L 21.0-29.0 H code = 1846) BE, Venous-POC (test 7.0 meq/L -2.0-3.0 H : code = 1847) Corporate Development Officer/Techni amaya ID = [id number] for JOSEFA, TAL Lab Interpretation Abnormal (test code = 33008-0) [facility]-[id number] 20:21:53 Test Item Value Reference Range Interpretation Comments POC-Sodium (test code = 140 meq/L 135-148 : TE STED AT [facility] 1542) [address] [facility] [place], [address]: Corporate Development Officer/Techni amaya ID = [id number] for JOSEFA, TAL Lab Interpretation (test Normal code = 10808-6) [facility]-Blood gases, [id number] 20:21:53 Test Item Value Reference Range Interpretation Comments Temp. Celsius-POC (test 99.3 code = 1834) FIO2-POC (test code = 100 1835) pH, Venous-POC (test 7.410 7.320-7.420 : TESTE D AT [facility] code = 1842) [address] [place], [address] PCO2, Venous-POC (test 50.2 See_Comment If pO [...] mated message] code = 1844) The system [employer] generated this result transmit may reference range : 25.0 - 40.0 mm Hg. The reference r julia was not used to interpret this result as normal/abnormal . SO2, Venous-POC (test 63.0 % 40.0-70.0 code = 1845) HCO3, Venous-POC (test 31.7 meq/L 21.0-29.0 H code = 1846) BE, Venous-POC (test 7.0 meq/L -2.0-3.0 H : code = 1847) Corporate Development Officer/Techni amaya ID = [id number] for JOSEFA, TAL Lab Interpretation Abnormal (test code = 48514-8) [id number] 20:21:53 Test Item Value Reference Range Interpretation Comments POC-Sodium (test code = 140 meq/L 135-148 : TE STED AT [facility] 1542) [address] [facility], [address]: Corporate Development Officer/Techni amaya ID = [id number] for JOSEFA, TAL Lab Interpretation (test Normal code = 36271-8) [facility] [id number] 20:21:53 Test Item Value Reference Range Interpretation Comments TEMP, CELSIUS-POC 99.3 (BEAKER) (test code = 1834) FIO2-POC (BEAKER) 100 (test code = 1835) PH, VENOUS-POC 7.410 7.320-7.420 : TESTED AT [facility] 6720 (BEAKER) (test code [facility], = 1842) [address] PCO2, VENOUS-POC 50.2 mm Hg 41.0-51.0 If pO2 is > 180, pCO2 may (BEAKER) (test code be posit ively biased = 1843) PO2, VENOUS-POC 34.0 mm Hg 25.0-40.0 (BEAKER) (test code = 1844) SO2, VENOUS-POC 63.0 % 40.0-70.0 (BEAKER) (test code = 1845) HCO3, VENOUS-POC 31.7 meq/L 21.0-29.0 H (BEAKER) (test code = 1846) BASE EXCESS, 7.0 meq/L -2.0-3.0 H : Corporate Development Officer/Tech nician ID VENOUS-POC (BEAKER) = [id number] for JOSEFA, (test code = 1847) TAL [id number] 20:21:53 Test Item Value Reference Range Interpretation Comments POC-SODIUM (BEAKER) 140 meq/L 135-148 : TESTED AT [place] [address] (test code = 1542) [facility] [address]: Corporate Development Officer/Techni amaya ID = [id number] for TAL DOSS POCT-GLUCOSE [id number] 18:00:18 Test Item Value Reference Range Interpretation Comments POC-GLUCOSE METER 104 mg/dL 70-110 : [facility] (test code = [facility], 153) [address]: Corporate Development Officer/Techni amaya ID = [id number] for Mc Jackie, Corie POCT-GLUCOSE [id number] 11:05:54 Test Item Value Reference Range Interpretation Comments POC-GLUCOSE METER 106 mg/dL 70-110 : [facility] (test code = [facility], 153) [address]: Corporate Development Officer/Techni amaya ID = [id number] for Mc Fee, Corie POCT-GLUCOSE [id number] 05:47:41 Test Item Value Reference Range Interpretation Comments POC-GLUCOSE METER 98 mg/dL 70-110 : TESTED A T [facility] 6720 ([facility]) (test code = [facility], 153) [address]: Corporate Development Officer/Techni amaya ID = [id number] for JAIM E PRAFUL, TOSHIA [id number] 04:09:51 Test Item Value Reference Range Interpretation Comments PHOSPHORUS ([facility]) (test code = 3.5 mg/dL 2.3-4.7 604) Corporate Development Officer ID - PIAYA LPOCT-GLUCOSE [id number] 00:30:03 Test Item Value Reference Range Interpretation Comments POC-GLUCOSE METER 96 mg/dL 70-110 : [facility] (test code = [facility], 153) [address]: Corporate Development Officer/Techni amaya ID = [id number] for JAIM E PRAFUL, TOSHIA POCT-GLUCOSE [id number] 18:35:26 Test Item Value Reference Range Interpretation Comments POC-GLUCOSE METER 100 mg/dL 70-110 : [facility] (test code = [facility], 1538) [address]: Corporate Development Officer/Techni amaya ID = [id number] for Estela Arvizu POCT-GLUCOSE [id number] 12:12:23 Test Item Value Reference Range Interpretation Comments POC-GLUCOSE METER 96 mg/dL 70-110 : TESTED A T [facility] 6720 (BEAKER) (test code = [place], 1538) [address]: Corporate Development Officer/Techni amaya ID = [id number] for Estela Hebert SPUTUM CULTURE + GRAM [id number] 09:19:53 Test Item Value Reference Interpretation Comments Range CULTURE ([facility]) METHICILLIN A 2+ Methicil dajuan [...] Vancomycin (test code S = 13) CULTURE ([facility]) BURKHOLDERIA A 1+ Burk[place] eria [...] No organisms seen (BEAKER) (test code = 575019) POCT-GLUCOSE [id number] 06:59:08 Test Item Value Reference Range Interpretation Comments POC-GLUCOSE METER 116 mg/dL 70-110 H : TESTED A T [facility] 6720 (BEAKER) (test code = [place], 1538) [address]: Corporate Development Officer/Techni amaya ID = [id number] for TIM ABDULLAHI [id number] 06:17:56 Test Item Value Reference Range Interpretation Comments MAGNESIUM (BEAKER) (test code = 1.8 mg/dL 1.6-2.6 627) Corporate Development Officer ID - MEE [id number] 06:17:56 Test Item Value Reference Range Interpretation Comments PHOSPHORUS (BEAKER) (test code = 3.4 mg/dL 2.3-4.7 604) Corporate Development Officer ID - MEE LBASIC METABOLIC [id number] 06:17:55 Test Item Value Reference Range Interpretation [...] not appl icable for dialysis patien ts Corporate Development Officer ID - PIAYA LCBC (HEMOGRAM ONLY)2022-06-19 05:33:41 [...] 0-0 (BEAKER) (test code = 413) POCT-GLUCOSE [id number] 01:04:38 Test Item Value Reference Range Interpretation Comments POC-GLUCOSE METER 91 mg/dL 70-110 : TESTED A T [facility] 6720 (BEAKER) (test code = [place] [facility], 1538) [address]: Corporate Development Officer/Techni amaya ID = [id number] for TIM NELSON VANCOMYCIN LEVEL, [id number] 19:31:03 Test Item Value Reference Range Interpretation Comments VANCOMYCIN TROUGH (BEAKER) (test 8.7 ug/mL 10.0-20.0 L code = 522) Corporate Development Officer ID - AMADO MPOCT-GLUCOSE [id number] 18:23:15 Test Item Value Reference Range Interpretation Comments POC-GLUCOSE METER 128 mg/dL 70-110 H : TESTED A T [facility] 6720 (BEAKER) (test code = [facility], 1538) [address]: Corporate Development Officer/Techni amaya ID = [id number] for HECTOR JOSEPH POCT-GLUCOSE [id number] 12:17:27 Test Item Value Reference Range Interpretation Comments POC-GLUCOSE METER 110 mg/dL 70-110 : TESTED A T [facility] 6720 (BEAKER) (test code = [facility], 1538) [address]: Corporate Development Officer/Techni amaya ID = [id number] for Estela Arvizu [id number] 06:23:38 Test Item Value Reference Range Interpretation Comments MAGNESIUM (BEAKER) (test code = 1.8 mg/dL 1.6-2.6 627) Corporate Development Officer ID - AMADO [id number] 06:23:38 Test Item Value Reference Range Interpretation Comments PHOSPHORUS (BEAKER) (test code = 2.9 mg/dL 2.3-4.7 604) Corporate Development Officer ID - AMADO MBASIC METABOLIC [id number] 06:23:37 Test Item Value Reference Range Interpretation [...] not appl icable for dialysis patien ts Corporate Development Officer ID - AMADO MPOCT-GLUCOSE [id number] 06:08:11 Test Item Value Reference Range Interpretation Comments POC-GLUCOSE METER 94 mg/dL 70-110 : TESTED A T [facility] 6720 (BEAKER) (test code = [place] [facility], 1538) [address]: Corporate Development Officer/Techni amaya ID = [id number] for Puli do, Heladiojose CBC (HEMOGRAM ONLY)2022-06-18 05:51:19 Test Item Value [...] 0-0 (BEAKER) (test code = 413) POCT-GLUCOSE [id number] 22:15:43 Test Item Value Reference Range Interpretation Comments POC-GLUCOSE METER 99 mg/dL 70-110 : TESTED A T [facility] 6720 (BEAKER) (test code = [place] [facility], 1538) [address]: Corporate Development Officer/Techni amaya ID = [id number] for TIM NELSON POCT-GLUCOSE [id number] 19:24:14 Test Item Value Reference Range Interpretation Comments POC-GLUCOSE METER 93 mg/dL 70-110 : TESTED A T [facility] 6720 (AKER) (test code = [facility] Billy [facility], 1538) [address]: Corporate Development Officer/Techni amaya ID = [id number] for Alexia Davila 2D Echo W/Doppler(CW/PW/Color)2022-06-17 17:42:49Ejection FractionSLEH ECHO HEARTLAB [facility] W/Doppler(CW/PW/Color)2022-06-17 17:42:49Ejection FractionSLEH ECHO HEARTLAB [facility] Echo W/Doppler(CW/PW/Color) 2022-06-17 17:42:49Ejection FractionSLEH ECHO HEARTLAB [facility] Echo W/Doppler(CW/PW/Color)2022-06-17 17:42:49Ejection FractionSLEH ECHO [facility]ARTLAB [facility]Do[facility](CW/PW/Color)2022-06-17 17:42:49Ejection FractionSLEH ECHO HEARTLAB [facility] Echo W/Doppler(CW/PW/Color) 2022-06-17 17:42:49Ejection FractionSLEH ECHO HEARTLAB [facility] Echo W/Doppler(CW/PW/Color)2022-06-17 17:42:49Ejection FractionSLEH ECHO HEARTLAB [facility] [id number] 17:10:48 Test Item Value Reference Range Interpretation [...] not appl icable for dialysis patien ts Corporate Development Officer ID - BSHEMOGLOBIN AND [id number] 16:53:14 Test Item Value Reference Range Interpretation Comments HEMOGLOBIN (BEAKER) (test code = 8.0 GM/DL 11.2-15.7 L 410) HEMATOCRIT (BEAKER) (test code = 25.1 % 34.1-44.9 L 411) Corporate Development Officer ID - [id number] doppler legs [id number] 16:05:02Ejection FractionSLEH ECHO HEARTLAB [facility] [id number] 16:05:02Ejection FractionSLEH ECHO HEARTLAB [facility] bilateral 2022-06-17 16:05:02Ejection FractionSLEH ECHO HEARTLAB [facility] [id number] 16:05:02Ejection FractionSLEH ECHO HEARTLAB [facility] legs [id number] 16:05:02Ejection FractionSLEH ECHO HEARTLAB [facility] bilateral 2022-06-17 16:05:02Ejection FractionSLEH ECHO HEARTLAB [facility] legs [id number] 16:05:02Ejection FractionSLEH ECHO HEARTLAB [facility] 2022-06-17 15:14:24 Test Item Value Reference Range Interpretation Comments MAGNESIUM (BEAKER) (test code = 2.0 mg/dL 1.6-2.6 627) Corporate Development Officer ID - BSBASIC METABOLIC [id number] 14:35:34 Test Item Value Reference Range Interpretation [...] not appl icable for dialysis patien ts Corporate Development Officer ID - PIAYA LPOCT-GLUCOSE [id number] 13:16:09 Test Item Value Reference Range Interpretation Comments POC-GLUCOSE METER 121 mg/dL 70-110 H : Notified RN/MD: (CHU) (test code = TESTED AT [facility] 6779 9819) [place], [address]: Corporate Development Officer/Techni amaya ID = [id number] for Meme Medellin RAD, CHEST, 1 VIEW, NON [id number] 08:21:00Reason for exam:->eval for pulmonary congestionShould this be performed at the bedside?->Yes [facility] VILLALOBOS : 1975 Sex: FFINAL REPORT Chest AP portable Comparison exam: 06/16/2022 History provided: Evaluation for pulmonary congestion Heart size normal. Airspace disease has developed within the left lower lobe which merits short-term follow- up. Right lung clear. Normal vascularity. Tracheostomy tube and left-sided PICC line in place. Signed: Diomedes Wigginsort Verified Date/Time: 06/17/2022 08:21:08 ReadingLocation: [facility] Diagnostic Imaging Reading Room - [facility] 1.310.12 POCT- GLUCOSE [id number] 06:03:37 Test Item Value Reference Range Interpretation Comments POC-GLUCOSE METER 83 mg/dL 70-110 : TESTED A T [facility] 6720 (BEAKER) (test code = [place], 1538) [address]: Corporate Development Officer/Techni amaya ID = [id number] for Konf or (contract), Catherine bronwyn BASIC METABOLIC [id number] 05:03:41 Test Item Value Reference Range Interpretation [...] not appl icable for dialysis patien ts Corporate Development Officer ID - MEE [id number] 05:03:41 Test Item Value Reference Range Interpretation Comments MAGNESIUM (BEAKER) (test code = 1.7 mg/dL 1.6-2.6 627) Corporate Development Officer ID - MEE [id number] 05:03:41 Test Item Value Reference Range Interpretation Comments PHOSPHORUS (BEAKER) (test code = 2.8 mg/dL 2.3-4.7 604) Corporate Development Officer ID - MEE LCBC (HEMOGRAM ONLY)2022-06-17 04:27:39 [...] 0-0 (BEAKER) (test code = 413) POCT-GLUCOSE [id number] 23:45:59 Test Item Value Reference Range Interpretation Comments POC-GLUCOSE METER 80 mg/dL 70-110 : TESTED A T [facility] 6720 (BEAKER) (test code = [place], 1538) [address]: Corporate Development Officer/Techni amaya ID = [id number] for Konf or (contract), Lil bronwyn RAD, CHEST, 1 VIEW, NON [id number] 23:30:00Reason for exam:->eval pulmonary congestionShould this be performed at the bedside?->Yes [facility] VILLALOBOS : 1975 Sex: FFINAL REPORT [...] line tip overlies the SVC. Signed: [facility] Verified Date/Time: 06/16/2022 23:30:48 -GLUCOSE [id number] 17:30:55 Test Item Value Reference Range Interpretation Comments POC-GLUCOSE METER 78 mg/dL 70-110 : TESTED A T [facility] 6720 (YEIMIJOSUE) (test code = [place], 1538) [address]: Corporate Development Officer/Techni amaya ID = [id number] for Louisa Kilpatrick CT, BRAIN, WITHOUT [id number] 14:28:00Reason for Exam (Free Text) - Addiitonal information for Radiologist->hx of stroke / anoxic /brain injury [facility] JERI VILLALOBOS : 1975 Sex: FFINAL REPORT [...] Baez MDReport Verified Date/Time: 06/16/2022 14:28:06 SARS-COV2/RT-PCR ([facility])2022-06-16 11:20:51 Test Item Value Reference Range Interpretation Comments SARS-COV2/RT-PCR Negative Negative The SARS-Co V-2 target (test code = nucleic acids a re not 1911951) detected in thi s specimen. Negative result [...] revoked sooner. Fact Sheet for Healthcare Providers: https://www.[employer]irst/Documents/Xpert%20Xpress%20SARS%20CoV-2/Fact%20Sheets/302-3802%78QFPZ-EMX-6%20 HEALTHCARE%20PROVIDERS%20FACT%20SHEET.pdf Fact Sheet for Healthcare Patients: https://www.[employer]ize.com/Documents/Xpert%20Xp ress%20SARS%20CoV-2/Fact%20Sheets/302-3801%12ZCQU-VSU-9%20PATIENT%20FACT%20SHEET .qwmAEDBRQMTOENNQ1319-92-03 10:39:32 Test Item Value Reference Range Interpretation Comments PROCALCITONIN (BEAKER) (test code 1.03 ng/mL <0.05 H = 3036) SEPSIS RISK (ng/mL)Low: 0.05-0.50Intermediate: 0.51-2.00High: >=2.01BASIC METABOLIC [id number] 10:30:08 Test Item Value Reference Range Interpretation [...] not appl icable for dialysis patien ts Corporate Development Officer ID - AMADO MHEPATIC FUNCTION [id number] 10:30:08 Test Item Value Reference Range Interpretation [...] (test code = 40 U/L 6-55 347) Corporate Development Officer ID - AMADO MUrinalysis w/Microscopic + Reflex to [id number] 10:24:21 Test Item Value Reference Range Interpretation Comments Color, UA (test code Light Yellow = 5778-6) Clarity, UA (test Clear code = 5767-9) Specific [place], UA 1.017 1.001-1.035 (test code = 5811-5) pH, UA (test code = 6.0 5.0-8.0 5803-2) Protein, UA (test 10 mg/dL Negative A code = 70194-7) Glucose, UA (test Negative Negative code = 365) Ketones, UA (test 40 mg/dL Negative A code = 7034-8) Bilirubin, UA (test Negative Negative code = 22363-3) Blood, UA (test code Negative Negative = 74334-5) Nitrite, UA (test Negative Negative code = 5802-4) Leukocytes, UA (test Trace Negative A code = 5799-2) Urobilinogen, UA 0.2 mg/dL 0.2-1.0 (test code = 58877-9) RBC, UA (test code = 2 See_Comment [Autom ated 30579-5) message] The system which generated this result [...] . Bacteria, UA (test Rare code = 22739-0) Mucus (test code = Rare 8247-9) Squam Epithel, UA 1 See_Comment [Automate d (test code = 63332-7) messag e] The system which generated this result transmit may reference range : /HPF. The reference range was not used to interpret this result as normal/abnormal . Hyaline Casts, UA 4 See_Comment [Automate d (test code = 98389-0) messag e] The system which generated this result transmit may reference range : /LPF. The reference range was not used to interpret this result as normal/abnormal . Crystals, Urine (test None Seen code = 05649-8) Specimen Source (test code = 2795) TONY (test code = TONY) Corporate Development Officer ID - [auto]Corporate Development Officer ID - tech Lab Interpretation Abnormal (test code = 47233-3) [facility] + Reflex to Culture 2022-06-16 10:24:21 Test Item Value Reference Range Interpretation Comments Color, UA (test code Light Yellow = 5778-6) Clarity, UA (test Clear code = 5767-9) Specific [place], UA 1.017 1.001-1.035 (test code = 5811-5) pH, UA (test code = 6.0 5.0-8.0 5803-2) Protein, UA (test 10 mg/dL Negative A code = 36360-7) Glucose, UA (test Negative Negative code = 365) Ketones, UA (test 40 mg/dL Negative A code = 2514-8) Bilirubin, UA (test Negative Negative code = 08905-0) Blood, UA (test code Negative Negative = 29379-3) Nitrite, UA (test Negative Negative code = 5802-4) Leukocytes, UA (test Trace Negative A code = 5799-2) Urobilinogen, UA 0.2 mg/dL 0.2-1.0 (test code = 71665-3) RBC, UA (test code = 2 See_Comment [Autom ated 19851-5) message] The system which generated this result [...] . Bacteria, UA (test Rare code = 94148-9) Mucus (test code = Rare 8247-9) Squam Epithel, UA 1 See_Comment [Automate d (test code = 61053-2) messag e] The system which generated this result transmit may reference range : /HPF. The reference range was not used to interpret this result as normal/abnormal . Hyaline Casts, UA 4 See_Comment [Automate d (test code = 93257-9) messag e] The system which generated this result transmit may reference range : /LPF. The reference range was not used to interpret this result as normal/abnormal . Crystals, Urine (test None Seen code = 87436-9) Specimen Source (test code = 2795) TONY (test code = TONY) Corporate Development Officer ID - [auto]Corporate Development Officer ID - tech Lab Interpretation Abnormal (test code = 27385-6) [facility]lex [facility] Culture 2022-06-16 10:24:21 Test Item Value Reference Range Interpretation Comments Color, UA (test code Light Yellow = 5778-6) Clarity, UA (test Clear code = 5767-9) Specific [place], UA 1.017 1.001-1.035 (test code = 5811-5) pH, UA (test code = 6.0 5.0-8.0 5803-2) Protein, UA (test 10 mg/dL Negative A code = 11028-1) Glucose, UA (test Negative Negative code = 365) Ketones, UA (test 40 mg/dL Negative A code = 2514-8) Bilirubin, UA (test Negative Negative code = 65299-7) Blood, UA (test code Negative Negative = 02868-3) Nitrite, UA (test Negative Negative code = 5802-4) Leukocytes, UA (test Trace Negative A code = 5799-2) Urobilinogen, UA 0.2 mg/dL 0.2-1.0 (test code = 81344-8) RBC, UA (test code = 2 See_Comment [Autom ated 20394-4) message] The system which generated this result [...] . Bacteria, UA (test Rare code = 59009-5) Mucus (test code = Rare 8247-9) Squam Epithel, UA 1 See_Comment [Automate d (test code = 24917-2) messag e] The system which generated this result transmit may reference range : /HPF. The reference range was not used to interpret this result as normal/abnormal . Hyaline Casts, UA 4 See_Comment [Automate d (test code = 83688-8) messag e] The system which generated this result transmit may reference range : /LPF. The reference range was not used to interpret this result as normal/abnormal . Crystals, Urine (test None Seen code = 19958-6) Specimen Source (test code = 2795) TONY (test code = TONY) Corporate Development Officer ID - [auto]Corporate Development Officer ID - tech Lab Interpretation Abnormal (test code = 84063-5) [facility] Reflex [facility] Culture 2022-06-16 10:24:21 Test Item Value Reference Range Interpretation Comments Color, UA (test code Light Yellow = 5778-6) Clarity, UA (test Clear code = 5767-9) Specific [place], UA 1.017 1.001-1.035 (test code = 5811-5) pH, UA (test code = 6.0 5.0-8.0 5803-2) Protein, UA (test 10 mg/dL Negative A code = 72867-3) Glucose, UA (test Negative Negative code = 365) Ketones, UA (test 40 mg/dL Negative A code = 2514-8) Bilirubin, UA (test Negative Negative code = 42894-9) Blood, UA (test code Negative Negative = 20855-6) Nitrite, UA (test Negative Negative code = 5802-4) Leukocytes, UA (test Trace Negative A code = 5799-2) Urobilinogen, UA 0.2 mg/dL 0.2-1.0 (test code = 19795-7) RBC, UA (test code = 2 See_Comment [Autom ated 06045-7) message] The system which generated this result [...] . Bacteria, UA (test Rare code = 31149-5) Mucus (test code = Rare 8247-9) Squam Epithel, UA 1 See_Comment [Automate d (test code = 23232-7) messag e] The system which generated this result transmit may reference range : /HPF. The reference range was not used to interpret this result as normal/abnormal . Hyaline Casts, UA 4 See_Comment [Automate d (test code = 29198-0) messag e] The system which generated this result transmit may reference range : /LPF. The reference range was not used to interpret this result as normal/abnormal . Crystals, Urine (test None Seen code = 90582-9) Specimen Source (test code = 2795) TONY (test code = TONY) Corporate Development Officer ID - [auto]Corporate Development Officer ID - tech Lab Interpretation Abnormal (test code = 98937-9) [facility] Reflex [facility] Culture 2022-06-16 10:24:21 Test Item Value Reference Range Interpretation Comments Color, UA (test code Light Yellow = 5778-6) Clarity, UA (test Clear code = 5767-9) Specific [place], UA 1.017 1.001-1.035 (test code = 5811-5) pH, UA (test code = 6.0 5.0-8.0 5803-2) Protein, UA (test 10 mg/dL Negative A code = 63210-8) Glucose, UA (test Negative Negative code = 365) Ketones, UA (test 40 mg/dL Negative A code = 2514-8) Bilirubin, UA (test Negative Negative code = 92108-0) Blood, UA (test code Negative Negative = 34367-6) Nitrite, UA (test Negative Negative code = 5802-4) Leukocytes, UA (test Trace Negative A code = 5799-2) Urobilinogen, UA 0.2 mg/dL 0.2-1.0 (test code = 09289-2) RBC, UA (test code = 2 See_Comment [Autom ated 20265-6) message] The system which generated this result [...] . Bacteria, UA (test Rare code = 62268-6) Mucus (test code = Rare 8247-9) Squam Epithel, UA 1 See_Comment [Automate d (test code = 17573-0) messag e] The system which generated this result transmit may reference range : /HPF. The reference range was not used to interpret this result as normal/abnormal . Hyaline Casts, UA 4 See_Comment [Automate d (test code = 03333-0) messag e] The system which generated this result transmit may reference range : /LPF. The reference range was not used to interpret this result as normal/abnormal . Crystals, Urine (test None Seen code = 13463-1) Specimen Source (test code = 2795) TONY (test code = TONY) Corporate Development Officer ID - [auto]Corporate Development Officer ID - tech Lab Interpretation Abnormal (test code = 91259-3) [facility] Reflex to Culture 2022-06-16 10:24:21 Test Item Value Reference Range Interpretation Comments Color, UA (test code Light Yellow = 5778-6) Clarity, UA (test Clear code = 5767-9) Specific [place], UA 1.017 1.001-1.035 (test code = 5811-5) pH, UA (test code = 6.0 5.0-8.0 5803-2) Protein, UA (test 10 mg/dL Negative A code = 15786-7) Glucose, UA (test Negative Negative code = 365) Ketones, UA (test 40 mg/dL Negative A code = 2514-8) Bilirubin, UA (test Negative Negative code = 62741-6) Blood, UA (test code Negative Negative = 19581-4) Nitrite, UA (test Negative Negative code = 5802-4) Leukocytes, UA (test Trace Negative A code = 5799-2) Urobilinogen, UA 0.2 mg/dL 0.2-1.0 (test code = 40784-0) RBC, UA (test code = 2 See_Comment [Autom ated 32831-4) message] The system which generated this result [...] . Bacteria, UA (test Rare code = 76428-0) Mucus (test code = Rare 8247-9) Squam Epithel, UA 1 See_Comment [Automate d (test code = 61466-0) messag e] The system which generated this result transmit may reference range : /HPF. The reference range was not used to interpret this result as normal/abnormal . Hyaline Casts, UA 4 See_Comment [Automate d (test code = 55298-7) messag e] The system which generated this result transmit may reference range : /LPF. The reference range was not used to interpret this result as normal/abnormal . Crystals, Urine (test None Seen code = 10504-1) Specimen Source (test code = 2795) TONY (test code = TONY) Corporate Development Officer ID - [auto]Corporate Development Officer ID - tech Lab Interpretation Abnormal (test code = 64224-8) [facility] + Reflex to Culture 2022-06-16 10:24:21 Test Item Value Reference Range Interpretation Comments Color, UA (test code Light Yellow = 5778-6) Clarity, UA (test Clear code = 5767-9) Specific [place], UA 1.017 1.001-1.035 (test code = 5811-5) pH, UA (test code = 6.0 5.0-8.0 5803-2) Protein, UA (test 10 mg/dL Negative A code = 24132-8) Glucose, UA (test Negative Negative code = 365) Ketones, UA (test 40 mg/dL Negative A code = 2514-8) Bilirubin, UA (test Negative Negative code = 98766-3) Blood, UA (test code Negative Negative = 98801-1) Nitrite, UA (test Negative Negative code = 5802-4) Leukocytes, UA (test Trace Negative A code = 5799-2) Urobilinogen, UA 0.2 mg/dL 0.2-1.0 (test code = 34281-5) RBC, UA (test code = 2 See_Comment [Autom ated 62410-4) message] The system which generated this result [...] . Bacteria, UA (test Rare code = 30986-8) Mucus (test code = Rare 8247-9) Squam Epithel, UA 1 See_Comment [Automate d (test code = 08201-5) messag e] The system which generated this result transmit may reference range : /HPF. The reference range was not used to interpret this result as normal/abnormal . Hyaline Casts, UA 4 See_Comment [Automate d (test code = 33595-8) messag e] The system which generated this result transmit may reference range : /LPF. The reference range was not used to interpret this result as normal/abnormal . Crystals, Urine (test None Seen code = 50122-4) Specimen Source (test code = 2795) TONY (test code = TONY) Corporate Development Officer ID - [auto]Corporate Development Officer ID - tech Lab Interpretation Abnormal (test code = 31234-0) [facility] URINE [id number] 10:24:21 Test Item Value Reference Range Interpretation [...] = 1521) SOURCE(BEAKER) (test code = 2795) Corporate Development Officer ID - [auto]Corporate Development Officer ID - techLACTIC ACID, [id number] 10:21:26 Test Item Value Reference Range Interpretation Comments LACTATE BLOOD VENOUS (2) (BEAKER) 1.86 mmol/L 0.50-2.20 (test code = 2872) Corporate Development Officer ID - AMADO [facility] (HEMOGRAM ONLY)2022-06-16 09:56:33 [...] (BEAKER) (test code = 413) BLOOD GAS, [id number] 09:55:57 Test Item Value Reference Range Interpretation [...] TEMPERATURE (BEAKER) (test 37.0 code = 1818) [id number] 16:03:00 Test Item Value Reference Range Interpretation Comments GLUBED (test code = GLUBED) 101 MG/DL 70-105 N [id number] 11:04:00 Test Item Value Reference Range Interpretation Comments GLUBED (test code = GLUBED) 179 MG/DL 70-105 H BASIC METABOLIC [id number] 08:00:00 Test Item Value Reference Range Interpretation [...] mg/dL 8.5-10.5 N = CA) CBC W/AUTO [id number] 06:57:00 Test Item Value Reference Range Interpretation [...] = BA#) 0.0 x10 3/uL 0.0-0.1 N [id number] 06:14:00 Test Item Value Reference Range Interpretation Comments GLUBED (test code = GLUBED) 106 MG/DL 70-105 H [id number] 20:22:00 Test Item Value Reference Range Interpretation Comments GLUBED (test code = GLUBED) 120 MG/DL 70-105 H [id number] 15:21:00 Test Item Value Reference Range Interpretation Comments GLUBED (test code = GLUBED) 125 MG/DL 70-105 H [id number] 11:16:00 Test Item Value Reference Range Interpretation Comments GLUBED (test code = GLUBED) 153 MG/DL 70-105 H [id number] 06:36:00 Test Item Value Reference Range Interpretation Comments GLUBED (test code = GLUBED) 135 MG/DL 70-105 H [id number] 22:08:00 Test Item Value Reference Range Interpretation Comments GLUBED (test code = GLUBED) 105 MG/DL 70-105 N [id number] 16:11:00 Test Item Value Reference Range Interpretation Comments GLUBED (test code = GLUBED) 123 MG/DL 70-105 H [id number] 12:14:00 Test Item Value Reference Range Interpretation Comments GLUBED (test code = GLUBED) 117 MG/DL 70-105 H CBC W/AUTO [id number] 06:20:00 Test Item Value Reference Range Interpretation [...] 0.0 x10 3/uL 0.0-0.1 N BASIC METABOLIC [id number] 06:19:00 Test Item Value Reference Range Interpretation [...] code 9.1 mg/dL 8.5-10.5 N = CA) [id number] 06:05:00 Test Item Value Reference Range Interpretation Comments GLUBED (test code = GLUBED) 128 MG/DL 70-105 H [id number] 00:55:00 Test Item Value Reference Range Interpretation Comments GLUBED (test code = GLUBED) 128 MG/DL 70-105 H - XR CHEST 1 [id number] 18:02:00 [facility] : 1975 Sex: FPatient Name: JERI VILLALOBOS Unit No: [id number] EXAMS: CPT: [id number] XR CHEST 1 V 40619 STUDY: - XR CHEST 1 V INDICATION: [...] [facility]: Ruiz Wolfe MD [address] [facility] : 1975 Age: 46 Sex: F [place], [place] [address] Loc: N.0377 1 Exam Date: 04/17/2022 Status: ADM IN PH: FAX: PAGE1 Signed Report [id number] 15:58:00 Test Item Value Reference Range Interpretation Comments GLUBED (test code = GLUBED) 142 MG/DL 70-105 H [id number] 11:34:00 Test Item Value Reference Range Interpretation Comments GLUBED (test code = GLUBED) 113 MG/DL 70-105 H BASIC METABOLIC [id number] 07:39:00 Test Item Value Reference Range Interpretation [...] mg/dL 8.5-10.5 N = CA) CBC W/AUTO [id number] 07:21:00 Test Item Value Reference Range Interpretation [...] = BA#) 0.0 x10 3/uL 0.0-0.1 N [id number] 05:50:00 Test Item Value Reference Range Interpretation Comments GLUBED (test code = GLUBED) 146 MG/DL 70-105 H [id number] 23:41:00 Test Item Value Reference Range Interpretation Comments GLUBED (test code = GLUBED) 103 MG/DL 70-105 N [id number] 15:36:00 Test Item Value Reference Range Interpretation Comments GLUBED (test code = GLUBED) 120 MG/DL 70-105 H [id number] 12:03:00 Test Item Value Reference Range Interpretation Comments GLUBED (test code = GLUBED) 134 MG/DL 70-105 H BASIC METABOLIC [id number] 07:51:00 Test Item Value Reference Range Interpretation [...] mg/dL 8.5-10.5 N = CA) CBC W/AUTO [id number] 07:48:00 Test Item Value Reference Range Interpretation [...] = 0.0 x10 3/uL 0.0-0.1 N BA#) [id number] 06:59:00 Test Item Value Reference Range Interpretation Comments GLUBED (test code = GLUBED) 125 MG/DL 70-105 H [id number] 00:00:00 Test Item Value Reference Range Interpretation Comments GLUBED (test code = GLUBED) 125 MG/DL 70-105 H [id number] 19:47:00 Test Item Value Reference Range Interpretation Comments GLUBED (test code = GLUBED) 106 MG/DL 70-105 H [id number] 16:21:00 Test Item Value Reference Range Interpretation Comments GLUBED (test code = GLUBED) 153 MG/DL 70-105 H [id number] 12:30:00 Test Item Value Reference Range Interpretation Comments GLUBED (test code = GLUBED) 114 MG/DL 70-105 H [id number] 05:46:00 Test Item Value Reference Range Interpretation Comments GLUBED (test code = GLUBED) 136 MG/DL 70-105 H CBC W/AUTO [id number] 04:49:00 Test Item Value Reference Range Interpretation [...] 0.0 x10 3/uL 0.0-0.1 N BASIC METABOLIC [id number] 04:33:00 Test Item Value Reference Range Interpretation [...] code 8.9 mg/dL 8.5-10.5 N = CA) [id number] 20:48:00 Test Item Value Reference Range Interpretation Comments GLUBED (test code = GLUBED) 89 MG/DL 70-105 N [id number] 17:18:00 Test Item Value Reference Range Interpretation Comments GLUBED (test code = GLUBED) 117 MG/DL 70-105 H [id number] 11:19:00 Test Item Value Reference Range Interpretation Comments GLUBED (test code = GLUBED) 113 MG/DL 70-105 H [id number] 06:05:00 Test Item Value Reference Range Interpretation Comments GLUBED (test code = GLUBED) 118 MG/DL 70-105 H BASIC METABOLIC [id number] 04:57:00 Test Item Value Reference Range Interpretation [...] code 8.5 mg/dL 8.5-10.5 N = CA) [id number] 04:57:00 Test Item Value Reference Range Interpretation Comments PHOSPHOROUS (test code = PHOS) 3.8 mg/dl 2.5-4.6 N [id number] 04:57:00 Test Item Value Reference Range Interpretation Comments MAGNESIUM (test code = MAG) 1.8 mg/dl 1.8-2.5 N CBC W/AUTO [id number] 04:44:00 Test Item Value Reference Range Interpretation [...] = BA#) 0.0 x10 3/uL 0.0-0.1 N [id number] 01:16:00 Test Item Value Reference Range Interpretation Comments GLUBED (test code = GLUBED) 84 MG/DL 70-105 N [id number] 17:04:00 Test Item Value Reference Range Interpretation Comments GLUBED (test code = GLUBED) 112 MG/DL 70-105 H [id number] 12:18:00 Test Item Value Reference Range Interpretation Comments GLUBED (test code = GLUBED) 107 MG/DL 70-105 H - XR CHEST 1 [id number] 08:45:00 [facility] : 1975 Sex: FPatient Name: JERI VILLALOBOS Unit No: [id number] EXAMS: CPT: [id number] XR CHEST 1 V 63290 CHEST RADIOGRAPH - 1 view CLINICAL HISTORY: f/u hypoxemia. COMPARISON: 04/12/2022 FINDINGS: Patient is rotated. Heart size unchanged. Bibasilar atelectasis and/or infiltrates, left greater than right. No large pleural effusion seen. IMPRESSION: Right basilar atelectasis and/or infiltrates, left greater than right. Findings are relatively stable. Recommend continued follow-up. at 0845 Reported and signed by: Maximiliano Cleaning MD CC: Jorje Eller MD; Manuel Nesbittqi Technologist: Dyan Deleon Time: DAP (Gy m2): Air Kerma (mGy): Trscr Dt/Tm: 04/13/2022 (0845) by :Ibis Orig Print D/T: S: 04/13/2022 (0848) BATCH NO: N/A Name: JERI VILLALOBOS Clifford [facility] Phys: Jorje Brasher MD [address] [place] : 1975 Age: 46 Sex: F [place] [address] Loc: N.2058 1 Exam Date: 04/13/2022 Status: ADM IN PH: FAX: PAGE 1 Signed Report [id number] 08:10:00 Test Item Value Reference Range Interpretation Comments GLUBED (test code = GLUBED) 102 MG/DL 70-105 N ARTERIAL BLOOD [id number] 04:42:00 Test Item Value Reference Range Interpretation [...] d message] code = MARY) The system [employer] generated this result transmit may reference range [...] g/dL 12.0-18.0 N = THB) BASIC METABOLIC [id number] 04:11:00 Test Item Value Reference Range Interpretation [...] in AM if not alreadyComments to Phleb: ordered.[id number] 04:11:00 Test Item Value Reference Range Interpretation Comments MAGNESIUM (test code = MAG) 1.8 mg/dl 1.8-2.5 N Spec Comments: Repeat Serum Magnesium level in AM if not alreadyComments to Phleb: ordered.CALCIUM [id number] 03:19:00 Test Item Value Reference Range Interpretation Comments CALCIUM IONIZED (test code = WESLY) 1.20 mmol/L 1.13-1.32 N CBC W/AUTO [id number] 03:06:00 Test Item Value Reference Range Interpretation [...] 0.0 x10 3/uL 0.0-0.1 N ARTERIAL BLOOD [id number] 20:54:00 Test Item Value Reference Range Interpretation [...] d message] code = MARY) The system [employer] generated this result transmit may reference range [...] code 15.2 g/dL 12.0-18.0 N = THB) [id number] 16:48:00 Test Item Value Reference Range Interpretation Comments GLUBED (test code = GLUBED) 132 MG/DL 70-105 H COMPREHENSIVE METABOLIC [id number] 16:32:00 Test Item Value Reference Range Interpretation [...] 42-121 N PHOSPHATASE (test code = ALKP) [id number] 16:32:00 Test Item Value Reference Range Interpretation Comments PHOSPHOROUS (test code = PHOS) 3.7 mg/dl 2.5-4.6 N [id number] 16:32:00 Test Item Value Reference Range Interpretation Comments MAGNESIUM (test code = MAG) 2.2 mg/dl 1.8-2.5 N [id number] 11:37:00 Test Item Value Reference Range Interpretation Comments GLUBED (test code = GLUBED) 139 MG/DL 70-105 H - CT HEAD/BRAIN W/O [id number] 10:15:00 [facility] : 1975 Sex: FPatient Name: JERI VILLALOBOS Unit No: [id number] EXAMS: CPT: [id number] CT HEAD/BRAIN W/O CONT 26783 EXAM: CT BRAIN WITHOUT CONTRAST DATE: 04/12/2022 [...] (1018) BATCH NO: N/A Name: JERI VILLALOBOS Clifford [facility] Phys: SIDFA. - [place],Manuel Grant [address] [place] : 1975 Age: 46 Sex: F [address]: [id number] Loc: N.2058 1 Exam Date: 04/12/2022 Status: ADM IN PH: FAX: PAGE1 Signed ReportARTERIAL BLOOD [id number] 10:07:00 Test Item Value Reference Range Interpretation [...] d message] code = MARY) The system [employer] generated this result transmit may reference range [...] (test Yes code = ALLENS) BLOOD GAS [id number] 10:07:00 Test Item Value Reference Range Interpretation Comments ARTERIAL BLOOD GAS PH 7.463 7.350-7.450 H (test code = PHA) ARTERIAL BLOOD GAS 28.2 mmHg 35-45 L PCO2 (test code = PCO2A) BICARBONATE TOTAL 19.7 mmol/L 22-26 L HCO3 (test code = HCO3) BASE EXCESS (test -2.7 mmol/L See_Comment L [Automate d message] code = MARY) The system [employer] generated this result transmit may reference range [...] N = THB) - CTA CHEST FOR [id number] 10:06:00 [facility] : 1975 Sex: FPatient Name: JERI VILLALOBOS Unit No: [id number] EXAMS: CPT: [id number] [place] [address] CTA CHESTWITH CONTRAST: INDICATIONS:Overdose. Tachycardia. COMPARISON: None [...] with ACR practice standards and adherence to metal trades instructor's recommendations. Contrast: 100ccIsovue-300. Total DPL: 388.21mGy*cm. FINDINGS: Bilateral breast implants. A tracheostomy tube is in place. No enlarged supraclavicular or axillary lymph node. The visualized central airway is unremarkable. No hilar or mediastinal lymphadenopathy. Cardiac size is normal. No coronary calcifications. Focal consolidation in the left lower lobe, similar to prior. No pleural effusion. The thoracic aorta isof normal caliber without dissection or aneurysm. 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.] (test code = ADEQUATE ADEQUATE PLTEST) DIFFERENTIAL [id number] 08:38:00 Test Item Value Reference Range Interpretation Comments PLATELET MORPHOLOGY (test code = Normal NORMAL PLTMORPH) - XR CHEST 1 [id number] 08:34:00 [facility] : 1975 Sex: FPatient Name: JERI VILLALOBOS Unit No: [id number] EXAMS: CPT: [id number] XR CHEST 1 V 39729 CHEST RADIOGRAPH, ONE VIEW: FRONTAL HISTORY: Shortness [...] (0837) BATCH NO: N/A Name: JERI VILLALOBOS [facility] Phys: TRANG.01 - MiltonManuel [address] : 1975 Age: 46 Sex: F [place], [place] [address] Loc: N.0385 1 Exam Date: 04/12/2022 Status: ADM IN PH: FAX: PAGE 1 Signed ReportBASIC METABOLIC [id number] 08:21:00 Test Item Value Reference Range Interpretation [...] code 9.4 mg/dL 8.5-10.5 N = CA) [id number] 08:07:00 Test Item Value Reference Range Interpretation Comments GLUBED (test code = GLUBED) 116 MG/DL 70-105 H [id number] 06:06:00 Test Item Value Reference Range Interpretation Comments CREATININE (test code = CREAT) 0.63 mg/dL 0.44-1.03 N [id number] 06:03:00 Test Item Value Reference Range Interpretation Comments GLUBED (test code = GLUBED) 124 MG/DL 70-105 H [id number] 21:32:00 Test Item Value Reference Range Interpretation Comments GLUBED (test code = GLUBED) 125 MG/DL 70-105 H [id number] 15:13:00 Test Item Value Reference Range Interpretation Comments GLUBED (test code = GLUBED) 138 MG/DL 70-105 H [id number] 12:10:00 Test Item Value Reference Range Interpretation Comments GLUBED (test code = GLUBED) 129 MG/DL 70-105 H [id number] 07:01:00 Test Item Value Reference Range Interpretation Comments GLUBED (test code = GLUBED) 129 MG/DL 70-105 H [id number] 06:14:00 Test Item Value Reference Range Interpretation Comments CREATININE (test code = CREAT) 0.61 mg/dL 0.44-1.03 N [id number] 21:53:00 Test Item Value Reference Range Interpretation Comments GLUBED (test code = GLUBED) 132 MG/DL 70-105 H [id number] 17:28:00 Test Item Value Reference Range Interpretation Comments GLUBED (test code = GLUBED) 124 MG/DL 70-105 H [id number] 08:46:00 Test Item Value Reference Range Interpretation Comments CREATININE (test code = CREAT) 0.67 mg/dL 0.44-1.03 N [id number] 06:18:00 Test Item Value Reference Range Interpretation Comments GLUBED (test code = GLUBED) 137 MG/DL 70-105 H [id number] 20:49:00 Test Item Value Reference Range Interpretation Comments GLUBED (test code = GLUBED) 122 MG/DL 70-105 H [id number] 16:26:00 Test Item Value Reference Range Interpretation Comments GLUBED (test code = GLUBED) 135 MG/DL 70-105 H [id number] 11:42:00 Test Item Value Reference Range Interpretation Comments GLUBED (test code = GLUBED) 139 MG/DL 70-105 H [id number] 09:59:00 Test Item Value Reference Range Interpretation Comments CREATININE (test code = CREAT) 0.63 mg/dL 0.44-1.03 N VANCOMYCIN [id number] 09:49:00 Test Item Value Reference Range Interpretation Comments VANCOMYCIN TROUGH 18.2 ug/ml 10.0-20.0 N Please ref er to (test code = VANCT) Medicati on Administration Record (MAR) forlast d ose date and time. [id number] 20:27:00 Test Item Value Reference Range Interpretation Comments GLUBED (test code = GLUBED) 134 MG/DL 70-105 H [id number] 15:35:00 Test Item Value Reference Range Interpretation Comments GLUBED (test code = GLUBED) 110 MG/DL 70-105 H [id number] 12:06:00 Test Item Value Reference Range Interpretation Comments GLUBED (test code = GLUBED) 122 MG/DL 70-105 H [id number] 06:35:00 Test Item Value Reference Range Interpretation Comments CREATININE (test code = CREAT) 0.55 mg/dL 0.44-1.03 N [id number] 05:42:00 Test Item Value Reference Range Interpretation Comments GLUBED (test code = GLUBED) 87 MG/DL 70-105 N [id number] 20:26:00 Test Item Value Reference Range Interpretation Comments GLUBED (test code = GLUBED) 116 MG/DL 70-105 H [id number] 15:57:00 Test Item Value Reference Range Interpretation Comments GLUBED (test code = GLUBED) 126 MG/DL 70-105 H [id number] 11:55:00 Test Item Value Reference Range Interpretation Comments GLUBED (test code = GLUBED) 137 MG/DL 70-105 H BASIC METABOLIC [id number] 09:48:00 Test Item Value Reference Range Interpretation [...] 8.9 mg/dL 8.5-10.5 N = CA) VANCOMYCIN [id number] 09:44:00 Test Item Value Reference Range Interpretation Comments VANCOMYCIN TROUGH 19.9 ug/ml 10.0-20.0 N Please ref er to (test code = VANCT) Medicati on Administration Record (MAR) forlast d ose date and time. CBC W/AUTO [id number] 09:22:00 Test Item Value Reference Range Interpretation [...] = BA#) 0.0 x10 3/uL 0.0-0.1 N [id number] 07:10:00 Test Item Value Reference Range Interpretation Comments CREATININE (test code = CREAT) 0.65 mg/dL 0.44-1.03 N [id number] 04:46:00 Test Item Value Reference Range Interpretation Comments GLUBED (test code = GLUBED) 122 MG/DL 70-105 H [id number] 16:41:00 Test Item Value Reference Range Interpretation Comments GLUBED (test code = GLUBED) 128 MG/DL 70-105 H [id number] 11:51:00 Test Item Value Reference Range Interpretation Comments GLUBED (test code = GLUBED) 130 MG/DL 70-105 H VANCOMYCIN [id number] 09:01:00 Test Item Value Reference Range Interpretation Comments VANCOMYCIN TROUGH 11.4 ug/ml 10.0-20.0 N Please ref er to (test code = VANCT) Medicati on Administration Record (MAR) forlast d ose date and time. BASIC METABOLIC [id number] 08:56:00 Test Item Value Reference Range Interpretation [...] mg/dL 8.5-10.5 N = CA) CBC W/AUTO [id number] 08:52:00 Test Item Value Reference Range Interpretation [...] = BA#) 0.0 x10 3/uL 0.0-0.1 N [id number] 06:04:00 Test Item Value Reference Range Interpretation Comments GLUBED (test code = GLUBED) 129 MG/DL 70-105 H [id number] 23:59:00 Test Item Value Reference Range Interpretation Comments GLUBED (test code = GLUBED) 118 MG/DL 70-105 H [id number] 15:29:00 Test Item Value Reference Range Interpretation Comments GLUBED (test code = GLUBED) 137 MG/DL 70-105 H [id number] 10:42:00 Test Item Value Reference Range Interpretation Comments GLUBED (test code = GLUBED) 160 MG/DL 70-105 H [id number] 06:44:00 Test Item Value Reference Range Interpretation Comments GLUBED (test code = GLUBED) 143 MG/DL 70-105 H [id number] 06:32:00 Test Item Value Reference Range Interpretation Comments CREATININE (test code = CREAT) 0.61 mg/dL 0.44-1.03 N [id number] 22:14:00 Test Item Value Reference Range Interpretation Comments GLUBED (test code = GLUBED) 134 MG/DL 70-105 H [id number] 15:26:00 Test Item Value Reference Range Interpretation Comments GLUBED (test code = GLUBED) 127 MG/DL 70-105 H [id number] 10:51:00 Test Item Value Reference Range Interpretation Comments GLUBED (test code = GLUBED) 136 MG/DL 70-105 H [id number] 07:11:00 Test Item Value Reference Range Interpretation Comments CREATININE (test code = CREAT) 0.70 mg/dL 0.44-1.03 N [id number] 05:48:00 Test Item Value Reference Range Interpretation Comments GLUBED (test code = GLUBED) 104 MG/DL 70-105 N [id number] 20:44:00 Test Item Value Reference Range Interpretation Comments GLUBED (test code = GLUBED) 93 MG/DL 70-105 N [id number] 16:59:00 Test Item Value Reference Range Interpretation Comments GLUBED (test code = GLUBED) 110 MG/DL 70-105 H [id number] 12:41:00 Test Item Value Reference Range Interpretation Comments GLUBED (test code = GLUBED) 107 MG/DL 70-105 H [id number] 06:04:00 Test Item Value Reference Range Interpretation Comments GLUBED (test code = GLUBED) 100 MG/DL 70-105 N [id number] 20:16:00 Test Item Value Reference Range Interpretation Comments GLUBED (test code = GLUBED) 104 MG/DL 70-105 N [id number] 16:43:00 Test Item Value Reference Range Interpretation Comments GLUBED (test code = GLUBED) 139 MG/DL 70-105 H [id number] 12:11:00 Test Item Value Reference Range Interpretation Comments GLUBED (test code = GLUBED) 112 MG/DL 70-105 H [id number] 08:07:00 Test Item Value Reference Range Interpretation Comments CREATININE (test code = CREAT) 0.59 mg/dL 0.44-1.03 N [id number] 05:27:00 Test Item Value Reference Range Interpretation Comments GLUBED (test code = GLUBED) 135 MG/DL 70-105 H [id number] 00:46:00 Test Item Value Reference Range Interpretation Comments GLUBED (test code = GLUBED) 117 MG/DL 70-105 H [id number] 16:35:00 Test Item Value Reference Range Interpretation Comments GLUBED (test code = GLUBED) 104 MG/DL 70-105 N [id number] 11:28:00 Test Item Value Reference Range Interpretation Comments GLUBED (test code = GLUBED) 138 MG/DL 70-105 H MISC [id number] 11:03:00 Test Item Value Reference Range Interpretation Comments MISC CHEMISTRY Procaalcitoni n = 0.11 ng/mL (test code = HIGH Ref range = 0.00-0.08 MISCCHEM) Jeri Villalobos : 1975 Patient ReportP atient ID: Age: 46 Account Numb er: [id number] n ID: [id number] Sex: Female Ordering Physic aakash:Ordered Items: Procalci toninDate Collected: 12/2021 Date Received: 03/29 DateReported: 0 03/30/2022 Fasting: Not GivenProcalcito ninTest Current Result and Flag Previous Result and Date UnitsReference IntervalProcalc qmrdky47 0.11 High ng/mL 0.00 -0.08A procalcitonin ( [...] years where there iss ufficient patient demogra [facility] data tomatch the res ult to the patient. Result s from certain testsare exclud ed from the Previous Result display.Icon Legend Out of R eference Range Critical or Stephany rtPerforming Labs01: [facility] [address], [place], [place],[address] D ir: Tiburcio Stevens MDFor Inquiries , the physician may contact Branch: Lab: [phone] ient DetailsLedkandy cervantes PiaPhone:Date o f : 1975Age: 46Sex: FemalePatient I D:Alternate Patient ID:Ramírez RachelNahum [facility] [address] [place], [place]Phone: Dya ount Number: [id number] an ID: [id number]:Spec imen DetailsSpecimen ID: [id number] ontrol ID: [id number] rnate Control Number: [id number] Collected: 12/2021 1328 LocalDate Recei elba: 03/29/2022 0000 ETDate Ent ered: 03/29/2022 2125 ETDate Reported: 03/30 1509 ETRte: 00Date C reated and Stored 03/30/22 1514 ET Final Report Page 1of 1 [id number] 07:01:00 Test Item Value Reference Range Interpretation Comments CREATININE (test code = CREAT) 0.56 mg/dL 0.44-1.03 N [id number] 06:29:00 Test Item Value Reference Range Interpretation Comments GLUBED (test code = GLUBED) 130 MG/DL 70-105 H [id number] 21:10:00 Test Item Value Reference Range Interpretation Comments GLUBED (test code = GLUBED) 99 MG/DL 70-105 N [id number] 16:24:00 Test Item Value Reference Range Interpretation Comments GLUBED (test code = GLUBED) 104 MG/DL 70-105 N [id number] 11:40:00 Test Item Value Reference Range Interpretation Comments GLUBED (test code = GLUBED) 110 MG/DL 70-105 H COMPREHENSIVE METABOLIC [id number] 07:12:00 Test Item Value Reference Range Interpretation [...] 42-121 N PHOSPHATASE (test code = ALKP) [id number] 06:23:00 Test Item Value Reference Range Interpretation Comments GLUBED (test code = GLUBED) 122 MG/DL 70-105 H [id number] 21:53:00 Test Item Value Reference Range Interpretation Comments GLUBED (test code = GLUBED) 112 MG/DL 70-105 H [id number] 15:53:00 Test Item Value Reference Range Interpretation Comments GLUBED (test code = GLUBED) 117 MG/DL 70-105 H PATHOLOGY REVIEW [id number] 11:04:00 Test Item Value Reference Range Interpretation [...] (test Kale Jewell, code = M.DRy SIGNATURE) [id number] 10:36:00 Test Item Value Reference Range Interpretation Comments GLUBED (test code = GLUBED) 100 MG/DL 70-105 N COMPREHENSIVE METABOLIC [id number] 07:52:00 Test Item Value Reference Range Interpretation [...] PHOSPHATASE (test code = ALKP) CBC W/AUTO [id number] 07:38:00 Test Item Value Reference Range Interpretation [...] = BA#) 0.0 x10 3/uL 0.0-0.1 N [id number] 06:28:00 Test Item Value Reference Range Interpretation Comments GLUBED (test code = GLUBED) 106 MG/DL 70-105 H [id number] 21:04:00 Test Item Value Reference Range Interpretation Comments GLUBED (test code = GLUBED) 122 MG/DL 70-105 H [id number] 15:47:00 Test Item Value Reference Range Interpretation Comments GLUBED (test code = GLUBED) 114 MG/DL 70-105 H MISCELLANEOUS LAB SEND [id number] 11:46:00 Test Item Value Reference Range Interpretation Comments MISCELLANEOUS LAB SEND PATHOLOGY REVIEW REQ OUT (test code = MISCLABSO) Test: Procalcitonin, serumOrdering physician contact information: Dr Xiong [phone] test: [id number] 11:03:00 Test Item Value Reference Range Interpretation Comments GLUBED (test code = GLUBED) 120 MG/DL 70-105 H COMPREHENSIVE METABOLIC [id number] 10:43:00 Test Item Value Reference Range Interpretation [...] N PHOSPHATASE (test code = ALKP) VANCOMYCIN [id number] 10:42:00 Test Item Value Reference Range Interpretation Comments VANCOMYCIN TROUGH 16.2 ug/ml 10.0-20.0 N Please ref er to (test code = VANCT) Medicati on Administration Record (MAR) forlast d ose date and time. [id number] 05:41:00 Test Item Value Reference Range Interpretation Comments GLUBED (test code = GLUBED) 121 MG/DL 70-105 H [id number] 03:50:00 Test Item Value Reference Range Interpretation Comments GLUBED (test code = GLUBED) 96 MG/DL 70-105 N [id number] 20:35:00 Test Item Value Reference Range Interpretation Comments GLUBED (test code = GLUBED) 127 MG/DL 70-105 H [id number] 16:32:00 Test Item Value Reference Range Interpretation Comments GLUBED (test code = GLUBED) 116 MG/DL 70-105 H [id number] 11:29:00 Test Item Value Reference Range Interpretation Comments GLUBED (test code = GLUBED) 114 MG/DL 70-105 H URINALYSIS [id number] 08:26:00 Test Item Value Reference Range Interpretation [...] CRYSTALS (test code = CAOXU) CBC W/AUTO [id number] 07:32:00 Test Item Value Reference Range Interpretation [...] 0.0 x10 3/uL 0.0-0.1 N RECOLLECT - [id number] 06:14:00 Test Item Value Reference Range Interpretation Comments GLUBED (test code = GLUBED) 126 MG/DL 70-105 H COMPREHENSIVE METABOLIC [id number] 05:55:00 Test Item Value Reference Range Interpretation [...] 42-121 N PHOSPHATASE (test code = ALKP) [id number] 20:47:00 Test Item Value Reference Range Interpretation Comments GLUBED (test code = GLUBED) 127 MG/DL 70-105 H [id number] 15:48:00 Test Item Value Reference Range Interpretation Comments GLUBED (test code = GLUBED) 138 MG/DL 70-105 H - XR CHEST 1 [id number] 12:31:00 [facility] : 1975 Sex: FPatient Name: JERI VILLALOBOS Unit No: [id number] EXAMS: CPT: [id number] XR CHEST 1 V 60856 CHEST, 1 VIEW:HISTORY: f/u. Fevers COMPARISON: March [...] Air Kerma (mGy): Trscr Dt/Tm: 03/26/2022 (1231) by:harpreet [email or web address] Orig Print D/T: S: 03/26/2022 (1234) BATCH NO: N/A Name: JERI VILLALOBOS [facility] Phys: SUMI - Casi-Salas Perera [address] [facility] : 1975 Age: 46 Sex: F [place], [place] [address] Loc: N.0385 1 Exam Date: 03/26/2022 Status: ADM IN PH: FAX: PAGE 1 Signed R [id number] 11:50:00 Test Item Value Reference Range Interpretation Comments GLUBED (test code = GLUBED) 165 MG/DL 70-105 H [id number] 06:35:00 Test Item Value Reference Range Interpretation Comments GLUBED (test code = GLUBED) 106 MG/DL 70-105 H BASIC METABOLIC [id number] 06:29:00 Test Item Value Reference Range Interpretation [...] mg/dL 8.5-10.5 N = CA) CBC W/AUTO [id number] 06:28:00 Test Item Value Reference Range Interpretation [...] = BA#) 0.0 x10 3/uL 0.0-0.1 N [id number] 20:02:00 Test Item Value Reference Range Interpretation Comments GLUBED (test code = GLUBED) 101 MG/DL 70-105 N [id number] 16:31:00 Test Item Value Reference Range Interpretation Comments GLUBED (test code = GLUBED) 141 MG/DL 70-105 H [id number] 11:51:00 Test Item Value Reference Range Interpretation Comments GLUBED (test code = GLUBED) 155 MG/DL 70-105 H [id number] 06:28:00 Test Item Value Reference Range Interpretation Comments GLUBED (test code = GLUBED) 138 MG/DL 70-105 H CBC W/AUTO [id number] 06:20:00 Test Item Value Reference Range Interpretation [...] 0.0 x10 3/uL 0.0-0.1 N BASIC METABOLIC [id number] 06:11:00 Test Item Value Reference Range Interpretation [...] code 8.8 mg/dL 8.5-10.5 N = CA) [id number] 20:18:00 Test Item Value Reference Range Interpretation Comments GLUBED (test code = GLUBED) 156 MG/DL 70-105 H [id number] 16:21:00 Test Item Value Reference Range Interpretation Comments GLUBED (test code = GLUBED) 120 MG/DL 70-105 H [id number] 11:13:00 Test Item Value Reference Range Interpretation Comments GLUBED (test code = GLUBED) 151 MG/DL 70-105 H BASIC METABOLIC [id number] 07:25:00 Test Item Value Reference Range Interpretation [...] mg/dL 8.5-10.5 N = CA) CBC W/AUTO [id number] 07:09:00 Test Item Value Reference Range Interpretation [...] = BA#) 0.0 x10 3/uL 0.0-0.1 N [id number] 06:45:00 Test Item Value Reference Range Interpretation Comments GLUBED (test code = GLUBED) 139 MG/DL 70-105 H [id number] 21:24:00 Test Item Value Reference Range Interpretation Comments GLUBED (test code = GLUBED) 118 MG/DL 70-105 H [id number] 16:08:00 Test Item Value Reference Range Interpretation Comments GLUBED (test code = GLUBED) 169 MG/DL 70-105 H - XR CHEST 1 [id number] 14:06:00 [facility] : 1975 Sex: FPatient Name: JERI VILLALOBOS Unit No: [id number] EXAMS: CPT: [id number] XR CHEST 1 V 81493 XR CHEST 1 VIEW HISTORY: tachycardia COMPARISON: [...] 03/23/2022 (1406) by:[email or web address] Orig PrintD/T: S: 03/23/2022 (1409) BATCH NO: N/A Name: JERI VILLALOBOS [facility] Phys: OLUOL02 - Kentrell Garrison,Sally Vargas [address] : 1975 Age: 46 Sex: F [place], [place] [address] Loc: N.0385 1 Exam Date: 03/23/2022 Status: ADM IN PH: FAX: PAGE 1 Signed [id number] 13:49:00 Test Item Value Reference Range Interpretation Comments MAGNESIUM (test code = MAG) 1.8 mg/dl 1.8-2.5 N [id number] 13:49:00 Test Item Value Reference Range Interpretation Comments TROPONIN-I (test code = TROPI) <0.020 ng/mL 0.000-0.034 N [id number] 12:08:00 Test Item Value Reference Range Interpretation Comments GLUBED (test code = GLUBED) 143 MG/DL 70-105 H [id number] 05:56:00 Test Item Value Reference Range Interpretation Comments GLUBED (test code = GLUBED) 142 MG/DL 70-105 H BASIC METABOLIC [id number] 05:52:00 Test Item Value Reference Range Interpretation [...] mg/dL 8.5-10.5 N = CA) CBC W/AUTO [id number] 05:50:00 Test Item Value Reference Range Interpretation [...] = BA#) 0.0 x10 3/uL 0.0-0.1 N [id number] 20:04:00 Test Item Value Reference Range Interpretation Comments GLUBED (test code = GLUBED) 114 MG/DL 70-105 H [id number] 16:03:00 Test Item Value Reference Range Interpretation Comments GLUBED (test code = GLUBED) 104 MG/DL 70-105 N [id number] 11:10:00 Test Item Value Reference Range Interpretation Comments GLUBED (test code = GLUBED) 129 MG/DL 70-105 H CBC W/AUTO [id number] 07:01:00 Test Item Value Reference Range Interpretation [...] = BA#) 0.0 x10 3/uL 0.0-0.1 N [id number] 06:53:00 Test Item Value Reference Range Interpretation Comments GLUBED (test code = GLUBED) 104 MG/DL 70-105 N BASIC METABOLIC [id number] 06:37:00 Test Item Value Reference Range Interpretation [...] code 8.5 mg/dL 8.5-10.5 N = CA) [id number] 20:39:00 Test Item Value Reference Range Interpretation Comments GLUBED (test code = GLUBED) 97 MG/DL 70-105 N [id number] 16:19:00 Test Item Value Reference Range Interpretation Comments GLUBED (test code = GLUBED) 104 MG/DL 70-105 N - CONT INJ GS/BURNS/JJ/[id number] 11:43:00 [facility] : 1975 Sex: FPatient Name: JERI VILLALOBOS Unit No: [id number] EXAMS: CPT: [id number] CONT INJ GS/BURNS/JJ/GJ 32078 EXAM: XR ABDOMEN CONTRAST INJECTION 2 VIEWS DATE: 03/21/2022 10:13 AM INDICATION: Tube study. COMPARISON: Prior study dated 03/20/2022. TECHNIQUE: Pre and postcontrast abdominal radiographs, before and after contrast injection through gastrostomy tube. FINDINGS: The initial leather roller radiograph demonstrates gastrostomy tube in the left [...] (1146) BATCH NO: N/A Name: JERI VILLALOBOS [facility] Phys: Archie Rider MD [address] : 1975 Age: 46 Sex: F [place] [address] Loc: N.0385 1 Exam Date: 03/21/2022 Status: ADM IN PH:FAX: PAGE 1 Signed [id number] 11:36:00 Test Item Value Reference Range Interpretation Comments GLUBED (test code = GLUBED) 102 MG/DL 70-105 N BASIC METABOLIC [id number] 06:31:00 Test Item Value Reference Range Interpretation [...] code 8.6 mg/dL 8.5-10.5 N = CA) [id number] 06:29:00 Test Item Value Reference Range Interpretation Comments GLUBED (test code = GLUBED) 83 MG/DL 70-105 N CBC W/AUTO [id number] 06:02:00 Test Item Value Reference Range Interpretation [...] = BA#) 0.0 x10 3/uL 0.0-0.1 N [id number] 04:02:00 Test Item Value Reference Range Interpretation Comments GLUBED (test code = GLUBED) 88 MG/DL 70-105 N [id number] 21:27:00 Test Item Value Reference Range Interpretation Comments GLUBED (test code = GLUBED) 86 MG/DL 70-105 N [id number] 17:12:00 Test Item Value Reference Range Interpretation Comments GLUBED (test code = GLUBED) 80 MG/DL 70-105 N - CONT INJ GS/BURNS/JJ/[id number] 14:19:00 [facility] : 1975 Sex: FPatient Name: JERI VILLALOBOS Unit No: [id number] EXAMS: CPT: [id number] CONT INJ GS/BURNS/JJ/GJ 30126 EXAM:XR ABDOMEN 1 VIEW DATE: 03/20/2022 12:22 [...] m2): Air Kerma (mGy): Trscr Dt/Tm: 03/20/2022 (9759) by:[email or web address] Orig Print D/T: S: 03/20/2022 (9321) BATCH NO: N/A Name: JERI VILLALOBOS [facility] Phys: Archie Rider MD [address] [facility] : 1975 Age: 46 Sex: F [place], [place] [address] Loc: N.0385 1 Exam Date: 03/20/2022 Status: ADM IN PH: FAX: PAGE 1 Signed [id number] 11:21:00 Test Item Value Reference Range Interpretation Comments GLUBED (test code = GLUBED) 100 MG/DL 70-105 N BASIC METABOLIC [id number] 09:13:00 Test Item Value Reference Range Interpretation [...] code 8.8 mg/dL 8.5-10.5 N = CA) [id number] 09:13:00 Test Item Value Reference Range Interpretation Comments PHOSPHOROUS (test code = PHOS) 3.5 mg/dl 2.5-4.6 N [id number] 09:13:00 Test Item Value Reference Range Interpretation Comments MAGNESIUM (test code = MAG) 2.1 mg/dl 1.8-2.5 N CBC W/AUTO [id number] 08:42:00 Test Item Value Reference Range Interpretation [...] = BA#) 0.0 x10 3/uL 0.0-0.1 N [id number] 06:38:00 Test Item Value Reference Range Interpretation Comments GLUBED (test code = GLUBED) 115 MG/DL 70-105 H [id number] 21:09:00 Test Item Value Reference Range Interpretation Comments GLUBED (test code = GLUBED) 115 MG/DL 70-105 H UR SODIUM [id number] 17:49:00 Test Item Value Reference Range Interpretation Comments UR SODIUM RANDOM 43 mmol/L No Normal R julia (test code = MACKENZIE) establishe d. UR CHLORIDE [id number] 17:49:00 Test Item Value Reference Range Interpretation Comments UR CHLORIDE RANDOM (test code = 22 mmol/L 15-300 N CLU) UR CREATININE [id number] 17:49:00 Test Item Value Reference Range Interpretation Comments UR CREATININE RANDOM (test code = 135 mg/dL 40-300 N CREATU) URINALYSIS [id number] 17:48:00 Test Item Value Reference Range Interpretation [...] NONE SEEN /HPF NONE SEEN = YEASTU) [id number] 16:41:00 Test Item Value Reference Range Interpretation Comments GLUBED (test code = GLUBED) 87 MG/DL 70-105 N - CT CHEST W/O [id number] 15:49:00 [facility] : 1975 Sex: FPatient Name: JERI VILLALOBOS Unit No: [id number] EXAMS: CPT: [id number] CT CHEST W/O CONTRAST 81847 TECHNIQUE: CT scan of the chest performed from the thoracic inlet through the upper abdomen without the administration of IV contrast. DLP: 409 mGy/cm. The study was performed with radiation dose optimization per ACR practice guidelines and metal trades instructor's recommendations which includes: automated exposure control, adjustment [...] Cheney MD CC: Ruiz Vaughn MD; Manuel Gusman Technologist: CELESTINE Stubbs CTDI: 11.16 DLP: 408.91 Trscr Dt/Tm: 03/19/2022 (1549) by:Lyly Orig Print D/T: S: 03/19/2022 (4899) BATCH NO: N/A Name: JERI VILLALOBOS [facility] Phys: Ruiz Wolfe MD [address] [facility] : 1975 Age: 46 Sex: F [place] [address] Loc: N.0385 1 Exam Date: 03/19/2022 Status: ADM IN PH: FAX: PAGE 1 Signed [id number] 11:40:00 Test Item Value Reference Range Interpretation Comments GLUBED (test code = GLUBED) 138 MG/DL 70-105 H [id number] 05:46:00 Test Item Value Reference Range Interpretation Comments GLUBED (test code = GLUBED) 112 MG/DL 70-105 H BASIC METABOLIC [id number] 05:04:00 Test Item Value Reference Range Interpretation [...] mg/dL 8.5-10.5 N = CA) CBC W/AUTO [id number] 04:55:00 Test Item Value Reference Range Interpretation [...] = BA#) 0.0 x10 3/uL 0.0-0.1 N [id number] 20:55:00 Test Item Value Reference Range Interpretation Comments GLUBED (test code = GLUBED) 102 MG/DL 70-105 N [id number] 16:05:00 Test Item Value Reference Range Interpretation Comments GLUBED (test code = GLUBED) 95 MG/DL 70-105 N BASIC METABOLIC [id number] 07:53:00 Test Item Value Reference Range Interpretation [...] mg/dL 8.5-10.5 N = CA) CBC W/AUTO [id number] 07:36:00 Test Item Value Reference Range Interpretation [...] BA#) 0.0 x10 3/uL 0.0-0.1 N DIFFERENTIAL [id number] 07:36:00 Test Item Value Reference Range Interpretation Comments PLATELET MORPHOLOGY (test code = Normal NORMAL PLTMORPH) [id number] 06:50:00 Test Item Value Reference Range Interpretation Comments GLUBED (test code = GLUBED) 114 MG/DL 70-105 H [id number] 00:10:00 Test Item Value Reference Range Interpretation Comments GLUBED (test code = GLUBED) 117 MG/DL 70-105 H BASIC METABOLIC [id number] 13:11:00 Test Item Value Reference Range Interpretation [...] mg/dL 8.5-10.5 N = CA) CBC W/AUTO [id number] 13:02:00 Test Item Value Reference Range Interpretation [...] = BA#) 0.1 x10 3/uL 0.0-0.1 N [id number] 05:54:00 Test Item Value Reference Range Interpretation Comments GLUBED (test code = GLUBED) 130 MG/DL 70-105 H [id number] 01:01:00 Test Item Value Reference Range Interpretation Comments GLUBED (test code = GLUBED) 135 MG/DL 70-105 H [id number] 18:22:00 Test Item Value Reference Range Interpretation Comments GLUBED (test code = GLUBED) 121 MG/DL 70-105 H [id number] 12:16:00 Test Item Value Reference Range Interpretation Comments GLUBED (test code = GLUBED) 118 MG/DL 70-105 H [id number] 06:15:00 Test Item Value Reference Range Interpretation Comments GLUBED (test code = GLUBED) 117 MG/DL 70-105 H [id number] 20:47:00 Test Item Value Reference Range Interpretation Comments GLUBED (test code = GLUBED) 107 MG/DL 70-105 H [id number] 15:49:00 Test Item Value Reference Range Interpretation Comments GLUBED (test code = GLUBED) 118 MG/DL 70-105 H [id number] 13:23:00 Test Item Value Reference Range Interpretation Comments GLUBED (test code = GLUBED) 135 MG/DL 70-105 H [id number] 08:39:00 Test Item Value Reference Range Interpretation Comments GLUBED (test code = GLUBED) 120 MG/DL 70-105 H BASIC METABOLIC [id number] 07:52:00 Test Item Value Reference Range Interpretation [...] mg/dL 8.5-10.5 N = CA) CBC W/AUTO [id number] 07:37:00 Test Item Value Reference Range Interpretation [...] = BA#) 0.1 x10 3/uL 0.0-0.1 N [id number] 06:16:00 Test Item Value Reference Range Interpretation Comments GLUBED (test code = GLUBED) 128 MG/DL 70-105 H [id number] 20:22:00 Test Item Value Reference Range Interpretation Comments GLUBED (test code = GLUBED) 120 MG/DL 70-105 H [id number] 14:13:00 Test Item Value Reference Range Interpretation Comments GLUBED (test code = GLUBED) 136 MG/DL 70-105 H BASIC METABOLIC [id number] 09:20:00 Test Item Value Reference Range Interpretation [...] mg/dL 8.5-10.5 N = CA) CBC W/AUTO [id number] 08:59:00 Test Item Value Reference Range Interpretation [...] = BA#) 0.0 x10 3/uL 0.0-0.1 N [id number] 05:46:00 Test Item Value Reference Range Interpretation Comments GLUBED (test code = GLUBED) 149 MG/DL 70-105 H [id number] 20:39:00 Test Item Value Reference Range Interpretation Comments GLUBED (test code = GLUBED) 115 MG/DL 70-105 H [id number] 17:26:00 Test Item Value Reference Range Interpretation Comments GLUBED (test code = GLUBED) 125 MG/DL 70-105 H BASIC METABOLIC [id number] 12:37:00 Test Item Value Reference Range Interpretation [...] mg/dL 8.5-10.5 N = CA) CBC W/AUTO [id number] 12:25:00 Test Item Value Reference Range Interpretation [...] 0.0 x10 3/uL 0.0-0.1 N 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 [id number] 12:16:00 Test Item Value Reference Range Interpretation Comments GLUBED (test code = GLUBED) 120 MG/DL 70-105 H LACTIC [id number] 11:58:00 Test Item Value Reference Range Interpretation Comments LACTIC ACID (test code = LACT) 1.5 mmol/L 0.5-2.0 N [id number] 06:32:00 Test Item Value Reference Range Interpretation Comments GLUBED (test code = GLUBED) 142 MG/DL 70-105 H [id number] 04:46:00 Test Item Value Reference Range Interpretation Comments GLUBED (test code = GLUBED) 133 MG/DL 70-105 H [id number] 21:12:00 Test Item Value Reference Range Interpretation Comments GLUBED (test code = GLUBED) 143 MG/DL 70-105 H [id number] 16:54:00 Test Item Value Reference Range Interpretation Comments GLUBED (test code = GLUBED) 118 MG/DL 70-105 H [id number] 12:48:00 Test Item Value Reference Range Interpretation Comments GLUBED (test code = GLUBED) 137 MG/DL 70-105 H - XR CHEST 1 [id number] 07:19:00 [facility] : 1975 Sex: FPatient Name: JERI VILLALOBOS Clifford Unit No: [id number] EXAMS: CPT: [id number] XR CHEST 1 V 89857 Comparison study: 03/09/2022 History: fu pneumonia CHEST [...] (718) by:[email or web address] Orig Print D/T: S: 03/12/2022 (721) BATCH NO: N/A Name: JERI VILLALOBOS [facility] Phys: Ruiz Wolfe MD [address] [facility] : 1975 Age: 46 Sex: F [place] [address] Loc:N.0385 1 Exam Date: 03/12/2022 Status: ADM IN PH: FAX: PAGE 1 Signed ReportCBC W/AUTO [id number] 07:06:00 Test Item Value Reference Range Interpretation [...] (test code = ADEQUATE ADEQUATE PLTEST) DIFFERENTIAL [id number] 07:06:00 Test Item Value Reference Range Interpretation Comments PLATELET MORPHOLOGY (test code = Normal NORMAL PLTMORPH) BASIC METABOLIC [id number] 06:45:00 Test Item Value Reference Range Interpretation [...] code 9.9 mg/dL 8.5-10.5 N = CA) [id number] 06:45:00 Test Item Value Reference Range Interpretation Comments MAGNESIUM (test code = MAG) 2.4 mg/dl 1.8-2.5 N [id number] 06:32:00 Test Item Value Reference Range Interpretation Comments GLUBED (test code = GLUBED) 125 MG/DL 70-105 H [id number] 21:02:00 Test Item Value Reference Range Interpretation Comments GLUBED (test code = GLUBED) 125 MG/DL 70-105 H [id number] 17:37:00 Test Item Value Reference Range Interpretation Comments GLUBED (test code = GLUBED) 119 MG/DL 70-105 H - XR ABDOMEN [id number] 12:22:00 [facility] : 1975 Sex: FPatient Name: JERI VILLALOBOS Unit No: [id number] EXAMS: CPT: [id number] XR ABDOMEN 1V 38441 ABDOMEN RADIOGRAPH, 1 VIEW: Supine. HISTORY: DISLODGED [...] Air Kerma (mGy): Trscr Dt/Tm: 03/11/2022 (1222) by:[email or web address] Orig Print D/T: S: 03/11/2022 (3425) BATCH NO: N/A Name: JERI VILLALOBOS [facility] Phys: YOLANDA - Annette,Brittney Tinsley DO [address] [facility] : 1975 Age: 46 Sex: F [place] [address] Loc: N.0385 1 Exam Date: 03/11/2022 Status: ADM IN PH: FAX: PAGE 1 Signed [id number] 12:21:00 Test Item Value Reference Range Interpretation Comments GLUBED (test code = GLUBED) 124 MG/DL 70-105 H [id number] 04:22:00 Test Item Value Reference Range Interpretation Comments GLUBED (test code = GLUBED) 109 MG/DL 70-105 H [id number] 22:04:00 Test Item Value Reference Range Interpretation Comments GLUBED (test code = GLUBED) 117 MG/DL 70-105 H [id number] 15:19:00 Test Item Value Reference Range Interpretation Comments GLUBED (test code = GLUBED) 126 MG/DL 70-105 H [id number] 10:52:00 Test Item Value Reference Range Interpretation Comments GLUBED (test code = GLUBED) 141 MG/DL 70-105 H [id number] 05:53:00 Test Item Value Reference Range Interpretation Comments GLUBED (test code = GLUBED) 151 MG/DL 70-105 H [id number] 21:42:00 Test Item Value Reference Range Interpretation Comments GLUBED (test code = GLUBED) 131 MG/DL 70-105 H [id number] 15:26:00 Test Item Value Reference Range Interpretation Comments GLUBED (test code = GLUBED) 136 MG/DL 70-105 H [id number] 11:43:00 Test Item Value Reference Range Interpretation Comments GLUBED (test code = GLUBED) 137 MG/DL 70-105 H - XR CHEST 1 [id number] 07:21:00 [facility] : 1975 Sex: FPatient Name: JERI VILLALOBOS Unit No: [id number] EXAMS: CPT: [id number] XR CHEST 1 V 42143 CHEST 1 VIEW:COMPARISON: 03/04/2022 CLINICAL HISTORY: Follow-up pneumonia FINDINGS: Left lower lobe pneumonia has mildly improved. Mild opacity seen in the right lower lobe, probably atelectasis, improved as well. Small left pleural effusion suspected. No pneumothorax. Heart size is with in normal limit. No acute bony abnormality seen. IMPRESSION: Improved left lower lobe pneumonia and right basilar atelectasis.Small left pleural effusion. at 0721 Reported and signed by: Ryan Cheney MD CC: Ruiz Vaughn MD; Manuel Rose DO Technologist: Virgilio Deleon Time: DAP (Gy m2): Air Kerma (mGy): Trscr Dt/Tm: 03/09/2022 (07) by:Lyly Orig Print D/T: S: 03/09/2022 (0724) BATCH NO: N/A Name: JERI VILLALOBOS Clifford [facility] Phys: Ruiz Wolfe MD [address] [place] : 1975 Age: 46 Sex: F [place], [place] [address] Loc: N.0385 1 Exam Date: 03/09/2022 Status: ADM IN PH: FAX: PAGE 1 Signed Report [id number] 06:09:00 Test Item Value Reference Range Interpretation Comments GLUBED (test code = GLUBED) 160 MG/DL 70-105 H [id number] 20:33:00 Test Item Value Reference Range Interpretation Comments GLUBED (test code = GLUBED) 115 MG/DL 70-105 H [id number] 15:34:00 Test Item Value Reference Range Interpretation Comments GLUBED (test code = GLUBED) 99 MG/DL 70-105 N [id number] 12:13:00 Test Item Value Reference Range Interpretation Comments GLUBED (test code = GLUBED) 112 MG/DL 70-105 H CBC W/AUTO [id number] 06:41:00 Test Item Value Reference Range Interpretation [...] 0.1 x10 3/uL 0.0-0.1 N BASIC METABOLIC [id number] 06:23:00 Test Item Value Reference Range Interpretation [...] code 9.4 mg/dL 8.5-10.5 N = CA) [id number] 06:16:00 Test Item Value Reference Range Interpretation Comments GLUBED (test code = GLUBED) 114 MG/DL 70-105 H [id number] 20:48:00 Test Item Value Reference Range Interpretation Comments GLUBED (test code = GLUBED) 119 MG/DL 70-105 H [id number] 16:26:00 Test Item Value Reference Range Interpretation Comments GLUBED (test code = GLUBED) 132 MG/DL 70-105 H [id number] 13:48:00 Test Item Value Reference Range Interpretation Comments GLUBED (test code = GLUBED) 126 MG/DL 70-105 H CBC W/AUTO [id number] 10:41:00 Test Item Value Reference Range Interpretation [...] BA#) 0.0 x10 3/uL 0.0-0.1 N DIFFERENTIAL [id number] 10:41:00 Test Item Value Reference Range Interpretation Comments PLATELET MORPHOLOGY (test code = Normal NORMAL PLTMORPH) BASIC METABOLIC [id number] 07:30:00 Test Item Value Reference Range Interpretation [...] code 8.7 mg/dL 8.5-10.5 N = CA) [id number] 05:19:00 Test Item Value Reference Range Interpretation Comments GLUBED (test code = GLUBED) 109 MG/DL 70-105 H [id number] 17:24:00 Test Item Value Reference Range Interpretation Comments GLUBED (test code = GLUBED) 118 MG/DL 70-105 H BASIC METABOLIC [id number] 09:47:00 Test Item Value Reference Range Interpretation [...] mg/dL 8.5-10.5 N = CA) CBC W/AUTO [id number] 09:00:00 Test Item Value Reference Range Interpretation [...] = BA#) 0.1 x10 3/uL 0.0-0.1 N [id number] 06:10:00 Test Item Value Reference Range Interpretation Comments GLUBED (test code = GLUBED) 118 MG/DL 70-105 H [id number] 01:06:00 Test Item Value Reference Range Interpretation Comments GLUBED (test code = GLUBED) 110 MG/DL 70-105 H [id number] 15:52:00 Test Item Value Reference Range Interpretation Comments GLUBED (test code = GLUBED) 121 MG/DL 70-105 H [id number] 11:55:00 Test Item Value Reference Range Interpretation Comments GLUBED (test code = GLUBED) 131 MG/DL 70-105 H [id number] 06:06:00 Test Item Value Reference Range Interpretation Comments GLUBED (test code = GLUBED) 119 MG/DL 70-105 H CBC W/AUTO [id number] 05:35:00 Test Item Value Reference Range Interpretation [...] 0.0 x10 3/uL 0.0-0.1 N BASIC METABOLIC [id number] 05:20:00 Test Item Value Reference Range Interpretation [...] code 8.5 mg/dL 8.5-10.5 N = CA) [id number] 20:55:00 Test Item Value Reference Range Interpretation Comments GLUBED (test code = GLUBED) 100 MG/DL 70-105 N [id number] 16:42:00 Test Item Value Reference Range Interpretation Comments GLUBED (test code = GLUBED) 117 MG/DL 70-105 H [id number] 11:49:00 Test Item Value Reference Range Interpretation Comments GLUBED (test code = GLUBED) 140 MG/DL 70-105 H - XR CHEST 1 [id number] 08:08:00 [facility] : 1975 Sex: FPatient Name: JERI VILLALOBOS Unit No: [id number] EXAMS: CPT: [id number] XR CHEST 1 V 52259 COMPARISON: 03/01/2022 FINDINGS: Atelectasis or pneumonia has [...] Hawkins MD CC: Ruiz Vaughn MD; Manuel Sidhu [place] Technologist: Oly Deleon Time: DAP (Gy m2): Air Kerma (mGy): Trscr Dt/Tm: 03/04/2022 (807) by:[email or web address] Orig Print D/T: S: 03/04/2022 (810) BATCH NO: N/A Name: JERI VILLALOBOS Clifford [facility] Phys: Ruiz Wolfe MD [address] [place] : 1975 Age: 46 Sex: F [place] [address] Loc: N.0385 1 Exam Date: 03/04/2022 Status: ADM IN PH: FAX: PAGE 1 Signed [id number] 05:53:00 Test Item Value Reference Range Interpretation Comments GLUBED (test code = GLUBED) 89 MG/DL 70-105 N [id number] 20:59:00 Test Item Value Reference Range Interpretation Comments GLUBED (test code = GLUBED) 131 MG/DL 70-105 H [id number] 15:42:00 Test Item Value Reference Range Interpretation Comments GLUBED (test code = GLUBED) 112 MG/DL 70-105 H [id number] 12:47:00 Test Item Value Reference Range Interpretation Comments GLUBED (test code = GLUBED) 128 MG/DL 70-105 H BASIC METABOLIC [id number] 08:10:00 Test Item Value Reference Range Interpretation [...] mg/dL 8.5-10.5 N = CA) CBC W/AUTO [id number] 08:09:00 Test Item Value Reference Range Interpretation [...] = BA#) 0.0 x10 3/uL 0.0-0.1 N [id number] 06:19:00 Test Item Value Reference Range Interpretation Comments GLUBED (test code = GLUBED) 111 MG/DL 70-105 H [id number] 20:56:00 Test Item Value Reference Range Interpretation Comments GLUBED (test code = GLUBED) 138 MG/DL 70-105 H [id number] 15:58:00 Test Item Value Reference Range Interpretation Comments GLUBED (test code = GLUBED) 137 MG/DL 70-105 H [id number] 12:19:00 Test Item Value Reference Range Interpretation Comments GLUBED (test code = GLUBED) 149 MG/DL 70-105 H [id number] 05:55:00 Test Item Value Reference Range Interpretation Comments GLUBED (test code = GLUBED) 114 MG/DL 70-105 H [id number] 21:40:00 Test Item Value Reference Range Interpretation Comments GLUBED (test code = GLUBED) 101 MG/DL 70-105 N [id number] 16:13:00 Test Item Value Reference Range Interpretation Comments GLUBED (test code = GLUBED) 126 MG/DL 70-105 H [id number] 11:40:00 Test Item Value Reference Range Interpretation Comments GLUBED (test code = GLUBED) 114 MG/DL 70-105 H - XR CHEST 1 [id number] 08:41:00 [facility] : 1975 Sex: FPatient Name: JERI VILLALOBOS Unit No: [id number] EXAMS: CPT: [id number] XR CHEST 1 V 79390 EXAM: XR CHEST1 VIEW DATE: 03/01/2022 5:00 [...] (0844) BATCH NO: N/A Name: JERI VILLALOBOS [facility] Phys: Ruiz Wolfe MD [address] [facility] : 1975 Age: 46 Sex: F [place], [place] [address] Loc: N.0385 1 Exam Date: 03/01/2022 Status: ADM IN PH: FAX: PAGE 1 Signed ReportBASIC METABOLIC [id number] 07:31:00 Test Item Value Reference Range Interpretation [...] mg/dL 8.5-10.5 N = CA) CBC W/AUTO [id number] 07:11:00 Test Item Value Reference Range Interpretation [...] = BA#) 0.0 x10 3/uL 0.0-0.1 N [id number] 06:14:00 Test Item Value Reference Range Interpretation Comments GLUBED (test code = GLUBED) 116 MG/DL 70-105 H [id number] 20:06:00 Test Item Value Reference Range Interpretation Comments GLUBED (test code = GLUBED) 103 MG/DL 70-105 N [id number] 17:02:00 Test Item Value Reference Range Interpretation Comments GLUBED (test code = GLUBED) 95 MG/DL 70-105 N [id number] 11:29:00 Test Item Value Reference Range Interpretation Comments GLUBED (test code = GLUBED) 137 MG/DL 70-105 H BASIC METABOLIC [id number] 07:06:00 Test Item Value Reference Range Interpretation [...] mg/dL 8.5-10.5 N = CA) CBC W/AUTO [id number] 06:47:00 Test Item Value Reference Range Interpretation [...] = BA#) 0.0 x10 3/uL 0.0-0.1 N [id number] 06:12:00 Test Item Value Reference Range Interpretation Comments GLUBED (test code = GLUBED) 135 MG/DL 70-105 H [id number] 00:40:00 Test Item Value Reference Range Interpretation Comments GLUBED (test code = GLUBED) 105 MG/DL 70-105 N [id number] 21:06:00 Test Item Value Reference Range Interpretation Comments GLUBED (test code = GLUBED) 103 MG/DL 70-105 N CBC W/AUTO [id number] 11:26:00 Test Item Value Reference Range Interpretation [...] = EO#) x10 3/uL 0.0-0.5 RECOLLECT CLOTTEDWBC [id number] 11:26:00 Test Item Value Reference Range Interpretation [...] NONE SEEN A POLC) RECOLLECT CLOTTEDCBC W/AUTO [id number] 08:54:00 Test Item Value Reference Range Interpretation Comments WHITE BLOOD CELL Test not 3.2-11.5 N Previously (test code = WBC) performed x10 reported result: 3/uL 10.2 x10\S\3/uLEdite d by: [id number] on 02/27/22:851~~ Corrected Repor t ~~Reason (required):CLOT TE D RED BLOOD CELL (test Test not 3.70-5.10 L Previou sly code = RBC) performed reported result : x10(6)/m 3.59 x10(6)/mEdited by: [id number] on 02/27/22~~ Corrected Repor t ~~Reason (required):CLOT TE D HEMOGLOBIN (test code Test not 12.0-15.0 L Previo usly = HGB) performed g/dL reported resu lt: 10.3 g/dLEdited by: [id number] on 02/27/22~~ Corrected Repor t ~~Reason (required):CLOT TE D HEMATOCRIT (test code Test not 35.7-44.8 L Previo usly = HCT) performed % reported result : 32.5 %Edited by : [id number] on 02/27/22~~ Corrected Repor t ~~Reason (required):CLOT TE D MEAN CELL VOLUME Test not 80-100 N Previously (test code = MCV) performed fL reported r esult: 91 fLEdited by: [id number] on 02/27/22:852~~ Corrected Repor t ~~Reason (required):CLOT TE D MEAN CELL HGB (test Test not 26.2-33.8 N Previous ly code = MCH) performed pg reported result : 28.7 pgEdited b y: [id number] on 02/27/22~~ Corrected Repor t ~~Reason (required):CLOT TE D MEAN CELL HGB Test not 30.0-34.0 N Previously CONCENTRATION (test performed g/dL report ed result: code = MCHC) 31.7 g/dLEdited by: [id number] on 02/27/22:852~~ Corrected Repor t ~~Reason (required):CLOT TE D RED CELL DISTRIBUTION Test not 11.3-14.5 WIDTH (test code = performed % RDW) PLATELET COUNT (test Test not 130-408 code = PLT) performed x10 3/uL MEAN PLATELET VOLUME Test not 8.6-12.6 N Previou sly (test code = MPV) performed fL reported r esult: 11.6 fLEdited b y: [id number] on 02/27/22:853~~ Corrected Repor t ~~Reason (required):CLOT TE D [...] (test code = PLTEST) performed BASIC METABOLIC [id number] 08:53:00 Test Item Value Reference Range Interpretation [...] code 8.6 mg/dL 8.5-10.5 N = CA) [id number] 06:09:00 Test Item Value Reference Range Interpretation Comments GLUBED (test code = GLUBED) 127 MG/DL 70-105 H [id number] 20:53:00 Test Item Value Reference Range Interpretation Comments GLUBED (test code = GLUBED) 117 MG/DL 70-105 H [id number] 17:43:00 Test Item Value Reference Range Interpretation Comments GLUBED (test code = GLUBED) 92 MG/DL 70-105 N [id number] 12:05:00 Test Item Value Reference Range Interpretation Comments GLUBED (test code = GLUBED) 132 MG/DL 70-105 H BASIC METABOLIC [id number] 10:55:00 Test Item Value Reference Range Interpretation [...] mg/dL 8.5-10.5 L = CA) CBC W/AUTO [id number] 10:42:00 Test Item Value Reference Range Interpretation [...] = BA#) 0.1 x10 3/uL 0.0-0.1 N [id number] 06:15:00 Test Item Value Reference Range Interpretation Comments GLUBED (test code = GLUBED) 115 MG/DL 70-105 H [id number] 03:49:00 Test Item Value Reference Range Interpretation Comments CREATININE (test code = CREAT) 0.61 mg/dL 0.44-1.03 N - DUP VEIN [id number] 23:43:00 [facility] : 1975 Sex: FPatient Name: JERI VILLALOBOS Unit No: [id number] EXAMS: CPT: [id number] DUP VEIN ARTEMIO 17196 BILATERAL LOWER EXTREMITY VENOUS DOPPLER AND COLOR FLOW DUPLEX IMAGING AND WAVE FORM ANALYSIS / PLETHYSMOGRAPHY CONCLUSIONS: 1. Normal venous Doppler study and duplex imaging of the deep veins of the right and leftlower extremities. The Wave Form Analysis is normal [...] of the right and left lower extremities. telecasting technician: Wilman Vasquez RVT TECHNICAL NOTES: 1. [...] by: LISANDRA PADRON MD Name: JERI [facility]OBOS [facility] Phys: HETAL Manuel Rose [address] [facility] : 1975 Age:46 Sex: F [place] [address] Loc: N.0385 1 Exam Date: 02/24/2022 Status: ADMIN PH: FAX: PAGE 1 Signed Report (CONTINUED) Patient Name: JERI VILLALOBOS Unit No: [id number] EXAMS: CPT: [id number] DUP VEIN ARTEMIO 49428 (Continued) CC: Manuel Rose DO Technologist: Wilman Stubbs Probe: Trscris Dt/Tm: 02/25/2022 (2343) by:BasilHR Orig Print D/T: S: 02/25/2022 (2346) BATCH NO: N/AName: JERI VILLALOBOS [facility] Phys: - MiltonManuel [address] : 1975 Age: 46 Sex: F [place], [place] [address] Loc: N.0385 1 Exam Date: 02/24/2022tatus: ADM IN PH: FAX: PAGE 2 Signed [id number] 20:34:00 Test Item Value Reference Range Interpretation Comments GLUBED (test code = GLUBED) 128 MG/DL 70-105 H [id number] 16:31:00 Test Item Value Reference Range Interpretation Comments GLUBED (test code = GLUBED) 116 MG/DL 70-105 H [id number] 11:44:00 Test Item Value Reference Range Interpretation Comments GLUBED (test code = GLUBED) 113 MG/DL 70-105 H - CT CHEST W/O [id number] 11:33:00 [facility] : 1975 Sex: FPatient Name: JERI VILLALOBOS Unit No: [id number] EXAMS: CPT: [id number] CT CHEST W/O CONTRAST 51888 EXAM: CT CHEST WITHOUT CONTRAST DATE: 02/25/2022 [...] IV contrast: None. 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 Lines, tubes and hardware: A tracheostomy [...] spaces are otherwise preserved. Name: FABIJERI Horton [facility] Phys: SIDFA. Manuel Rose [address] [facility] : 1975 Age: 46 Sex: F [place] [address] Loc: N.0385 1 Exam Date: 02/25/2022 Status: ADM IN PH: FAX: PAGE 1 Signed Report (CONTINUED) Patient Name: MIRELA VILLALOBOSNahum Horton Unit No: [id number] EXAMS: CPT: [id number] CT CHEST W/O CONTRAST 18246 (Continued) Soft tissues: Bila teral breast implants [...] (1136) BATCH NO: N/A Name: JERI VILLALOBOS [facility] Phys: TRANG.Mabel - MiltonManuel Sidhu Juanita [address] : 1975 Age: 46 Sex: F [place], [place] [address] Loc: N.0385 1Exam Date: 02/25/2022 Status: ADM IN PH: FAX: PAGE 2 Signed Report- DUP VEIN [id number] 11:14:00 [facility] : 1975 Sex: FPatient Name: JERI VILLALOBOS Unit No: [id number] EXAMS: CPT: [id number] DUP VEIN ARTEMIO 19102 EXAM: US BILATERAL UPPER EXTREMITY VENOUS DOPPLER [...] the tracheostomy appliance. The remaining portions of theinternal jugular vein are patent. Subclavian: Patent. Axillary: Patent. Brachial: Patent. Basilic: Patent. Cephalic: Patent. Other: None. IMPRESSION: No deep venous thrombosis (DVT) in the bilateral upper extremities. Partially occlusive superficial vein thrombosis surrounding the right basilic venous line. at 1114 Reported and signed by: Yung Abel MD Name: JERI VILLALOBOS [facility] Phys: SIDFA. - Milton,Manuel A D [address] [facility] : 1975 Age: 46 Sex: F [place] [address] Loc: N.0385 1 Exam Date: 02/25/2022 Status: ADM IN PH: FAX: PAGE 1 Signed Report (CONTINUED) Patient Name: JERI VILLALOBOS Unit No: [id number] EXAMS: CPT: [id number] DUP VEIN ARTEMIO 31872 (Continued) CC: Manuel Rose DO Technologist: Wilman Stubbs Probe: Trscr Dt/Tm: 02/25/2022 (1114) by:[email or web address] Orig Print D/T: S: 02/25/2022 (1117) BATCH NO: N/A Name: JERI VILLALOBOS [facility] Phys: .diqi,Manuel A D [address] [facility] : 1975 Age: 46 Sex: F [place] [address] Loc: N.04618 Exam Date: 02/25/2022 Status: ADM IN PH: FAX: PAGE 2 Signed Report BASIC METABOLIC [id number] 08:25:00 Test Item Value Reference Range Interpretation [...] mg/dL 8.5-10.5 L = CA) REDRAWCBC W/AUTO [id number] 07:31:00 Test Item Value Reference Range Interpretation [...] 10.4 fL 8.6-12.6 N = MPV) WBC [id number] 07:31:00 Test Item Value Reference Range Interpretation [...] 0.00 10 3/uL 0.00-0.00 N = OCT#) [id number] 05:47:00 Test Item Value Reference Range Interpretation Comments GLUBED (test code = GLUBED) 135 MG/DL 70-105 H [id number] 20:40:00 Test Item Value Reference Range Interpretation Comments GLUBED (test code = GLUBED) 121 MG/DL 70-105 H [id number] 17:03:00 Test Item Value Reference Range Interpretation Comments GLUBED (test code = GLUBED) 113 MG/DL 70-105 H VANCOMYCIN [id number] 13:43:00 Test Item Value Reference Range Interpretation Comments VANCOMYCIN TROUGH 15.9 ug/ml 10.0-20.0 N Please ref er to (test code = VANCT) Medicati on Administration Record (MAR) forlast d ose date and time. [id number] 11:50:00 Test Item Value Reference Range Interpretation Comments GLUBED (test code = GLUBED) 139 MG/DL 70-105 H BASIC METABOLIC [id number] 07:47:00 Test Item Value Reference Range Interpretation [...] mg/dL 8.5-10.5 L = CA) CBC W/AUTO [id number] 07:37:00 Test Item Value Reference Range Interpretation [...] = BA#) 0.1 x10 3/uL 0.0-0.1 N [id number] 06:21:00 Test Item Value Reference Range Interpretation Comments GLUBED (test code = GLUBED) 141 MG/DL 70-105 H [id number] 21:37:00 Test Item Value Reference Range Interpretation Comments GLUBED (test code = GLUBED) 135 MG/DL 70-105 H [id number] 17:38:00 Test Item Value Reference Range Interpretation Comments GLUBED (test code = GLUBED) 144 MG/DL 70-105 H [id number] 11:57:00 Test Item Value Reference Range Interpretation Comments GLUBED (test code = GLUBED) 141 MG/DL 70-105 H VANCOMYCIN [id number] 07:35:00 Test Item Value Reference Range Interpretation Comments VANCOMYCIN TROUGH 10.8 ug/ml 10.0-20.0 N Please ref er to (test code = VANCT) Medicati on Administration Record (MAR) forlast d ose date and time. [id number] 06:05:00 Test Item Value Reference Range Interpretation Comments GLUBED (test code = GLUBED) 139 MG/DL 70-105 H CBC W/AUTO [id number] 05:22:00 Test Item Value Reference Range Interpretation [...] 0.1 x10 3/uL 0.0-0.1 N BASIC METABOLIC [id number] 05:11:00 Test Item Value Reference Range Interpretation [...] code 8.5 mg/dL 8.5-10.5 N = CA) [id number] 21:02:00 Test Item Value Reference Range Interpretation Comments GLUBED (test code = GLUBED) 164 MG/DL 70-105 H LACTIC [id number] 18:08:00 Test Item Value Reference Range Interpretation Comments LACTIC ACID (test code = LACT) 1.2 mmol/L 0.5-2.0 N - XR CHEST 1 [id number] 14:36:00 [facility] 1975 Sex: FPatient Name: JERI VILLALOBOS Unit No: [id number] EXAMS: CPT: [id number] XR CHEST 1 V 26925 EXAM: XR CHEST 1 VIEW DATE: 02/22/2022 [...] (1436) by:[email or web address] Orig Print D/T: S: 02/22/2022 (1433) BATCH NO:N/A Name: JERI VILLALOBOS [facility] Phys: SIDFA. - Manuel Rose [address] [facility] : 1975 Age: 46 Sex: F [place], [place] [address] Loc: N.0353 1 Exam Date: 02/22/2022 Status: [...] culture: Temperature > 100.4 FSpecimen Description: CATHETERIZED (STRAIGHT)[id number] 11:40:00 Test Item Value Reference Range Interpretation Comments GLUBED (test code = GLUBED) 168 MG/DL 70-105 H BASIC METABOLIC [id number] 06:49:00 Test Item Value Reference Range Interpretation [...] code 9.5 mg/dL 8.5-10.5 N = CA) [id number] 06:49:00 Test Item Value Reference Range Interpretation Comments MAGNESIUM (test code = MAG) 2.4 mg/dl 1.8-2.5 N CBC W/AUTO [id number] 06:34:00 Test Item Value Reference Range Interpretation [...] = BA#) 0.1 x10 3/uL 0.0-0.1 N [id number] 05:45:00 Test Item Value Reference Range Interpretation Comments GLUBED (test code = GLUBED) 172 MG/DL 70-105 H [id number] 19:41:00 Test Item Value Reference Range Interpretation Comments GLUBED (test code = GLUBED) 138 MG/DL 70-105 H [id number] 15:35:00 Test Item Value Reference Range Interpretation Comments GLUBED (test code = GLUBED) 155 MG/DL 70-105 H [id number] 12:37:00 Test Item Value Reference Range Interpretation Comments GLUBED (test code = GLUBED) 157 MG/DL 70-105 H - XR CHEST 1 [id number] 09:18:00 [facility] : 1975 Sex: FPatient Name: JERI VILLALOBOS Unit No: [id number] EXAMS: CPT: [id number] XR CHEST 1 V 52208 EXAM: XR CHEST1 VIEW DATE: 02/21/2022 8:14 [...] MD CC: Manuel Rose DO Technologist: Logan iGll Fluoro Time: DAP (Gy m2): Air Kerma (mGy): Trscr Dt/Tm: 02/21/2022 (917) by:[email or web address] Orig Print D/T: S: 02/21/2022 (920) BATCH NO: N/A Name: MIRELA VILLALOBOSNahum Horton [facility] Phys: HETAL. Manuel Rose [address] [facility] : 1975 Age: 46 Sex: F [place], [place] [address] Loc: N.0353 1 Exam Date: 02/21/2022 Status: ADM IN PH: FAX: PAGE 1 Signed ReportCBC W/AUTO [id number] 07:45:00 Test Item Value Reference Range Interpretation [...] 0.1 x10 3/uL 0.0-0.1 N BASIC METABOLIC [id number] 07:22:00 Test Item Value Reference Range Interpretation [...] code 9.1 mg/dL 8.5-10.5 N = CA) [id number] 07:09:00 Test Item Value Reference Range Interpretation Comments GLUBED (test code = GLUBED) 160 MG/DL 70-105 H [id number] 20:59:00 Test Item Value Reference Range Interpretation Comments GLUBED (test code = GLUBED) 122 MG/DL 70-105 H BASIC METABOLIC [id number] 16:30:00 Test Item Value Reference Range Interpretation [...] mg/dL 8.5-10.5 N = CA) CBC W/AUTO [id number] 16:02:00 Test Item Value Reference Range Interpretation [...] = BA#) 0.1 x10 3/uL 0.0-0.1 N [id number] 15:05:00 Test Item Value Reference Range Interpretation Comments GLUBED (test code = GLUBED) 142 MG/DL 70-105 H [id number] 10:44:00 Test Item Value Reference Range Interpretation Comments GLUBED (test code = GLUBED) 150 MG/DL 70-105 H [id number] 06:45:00 Test Item Value Reference Range Interpretation Comments GLUBED (test code = GLUBED) 153 MG/DL 70-105 H [id number] 21:00:00 Test Item Value Reference Range Interpretation Comments GLUBED (test code = GLUBED) 135 MG/DL 70-105 H [id number] 12:11:00 Test Item Value Reference Range Interpretation Comments GLUBED (test code = GLUBED) 127 MG/DL 70-105 H - XR CHEST 1 [id number] 07:51:00 [facility] : 1975 Sex: FPatient Name: JERI VILLALOBOS Unit No: [id number] EXAMS: CPT: [id number] XR CHEST 1 V 66347 Comparison study: 02/15/2022 History: Respiratory failure CHEST 1 VIEW FINDINGS: A tracheostomy tube is present. There is been no significant change in the left lower lobe subsegmental atelectasis and/or infiltrates.The right lung is clear. The heart size is magnified by the AP technique. The pulmonary vasculatureis within normal limits. No pneumothorax or pleural [...] (0754) BATCH NO: N/A Name: JERI VILLALOBOS [facility] Phys: Shun Garcia NP [address] : 1975 Age: 46 Sex: F [place], [place] [address] [id number] Loc: N.1 1 Exam Date: 02/19/2022 Status: ADM IN PH: FAX: PAGE 1 Signed Report [id number] 06:40:00 Test Item Value Reference Range Interpretation Comments GLUBED (test code = GLUBED) 152 MG/DL 70-105 H BASIC METABOLIC [id number] 04:44:00 Test Item Value Reference Range Interpretation [...] code 9.5 mg/dL 8.5-10.5 N = CA) [id number] 04:44:00 Test Item Value Reference Range Interpretation Comments PHOSPHOROUS (test code = PHOS) 5.5 mg/dl 2.5-4.6 H [id number] 04:44:00 Test Item Value Reference Range Interpretation Comments MAGNESIUM (test code = MAG) 2.3 mg/dl 1.8-2.5 N CBC W/AUTO [id number] 04:30:00 Test Item Value Reference Range Interpretation [...] = BA#) 0.1 x10 3/uL 0.0-0.1 N [id number] 00:35:00 Test Item Value Reference Range Interpretation Comments GLUBED (test code = GLUBED) 136 MG/DL 70-105 H [id number] 16:43:00 Test Item Value Reference Range Interpretation Comments GLUBED (test code = GLUBED) 140 MG/DL 70-105 H [id number] 07:44:00 Test Item Value Reference Range Interpretation Comments GLUBED (test code = GLUBED) 152 MG/DL 70-105 H [id number] 07:44:00 Test Item Value Reference Range Interpretation Comments GLUBED (test code = GLUBED) 97 MG/DL 70-105 N [id number] 06:24:00 Test Item Value Reference Range Interpretation Comments GLUBED (test code = GLUBED) 142 MG/DL 70-105 H CBC W/AUTO [id number] 06:08:00 Test Item Value Reference Range Interpretation [...] 0.1 x10 3/uL 0.0-0.1 N BASIC METABOLIC [id number] 04:29:00 Test Item Value Reference Range Interpretation [...] code 10.0 mg/dL 8.5-10.5 N = CA) [id number] 04:29:00 Test Item Value Reference Range Interpretation Comments PHOSPHOROUS (test code = PHOS) 5.0 mg/dl 2.5-4.6 H [id number] 04:29:00 Test Item Value Reference Range Interpretation Comments MAGNESIUM (test code = MAG) 2.3 mg/dl 1.8-2.5 N [id number] 00:48:00 Test Item Value Reference Range Interpretation Comments GLUBED (test code = GLUBED) 103 MG/DL 70-105 N [id number] 16:28:00 Test Item Value Reference Range Interpretation Comments GLUBED (test code = GLUBED) 96 MG/DL 70-105 N - DUP EXTRACRANIAL [id number] 09:49:00 [facility] : 1975 Sex: FPatient Name: JERI VILLALOBOS Unit No: [id number] EXAMS: CPT: [id number] DUP EXTRACRANIAL ARTEMIO 10596 BILATERAL CAROTID ARTERY ULTRASOUND DUPLEX SCAN AND [...] Normal antegrade flow is present in the LeftVertebral artery. 4. The Carotid Artery Wave Form Spectral Analysis is normal bilaterally HISTORY AND INDICATIONS FOR STUDY: This study is performed to evaluate the presence and extent of carotid atherosclerotic disease. Technical note: The common, external, and internal carotid arteries were evaluated bilaterally. Ultrasound, grayscale, color Doppler, and spectral waveform analysis of peak and end-d iastolic velocities were performed at multiple levels. Comparison Study: None available FINDINGS: RIGHT CAROTID Ultrasound and duplex imaging of the right carotid bulb and right internal carotid arteryexhibit mild changes of atherosclerotic disease. The actual [...] VCCA ratio is 0.8. Name: JERI VILLALOBOS [facility] Phys: Tiburcio Angel MD [address] [facility] : 1975 Age: 46 Sex: F [place], [place] [address]Hwbm No: [id number] Loc: N.2050 1 Exam Date: 02/16/2022 Status: ADM IN PH: FAX: PAGE 1 Signed Report (CONTINUED) Patient Name: JERI VILLALOBOS Unit No: [id number] EXAMS: CPT: [id number] DUP EXTRACRANIAL ARTEMIO 40291 (Continued) VERTEBRAL ARTERY FLOW Normal antegrade vertebral artery flow bilaterally. at 0949 Reported and signed by: LISANDRA PADRON MD CC: Love Kumar MD; Tiburcio Cartagena MD Technologist: Anu So Probe: Trscr Dt/Tm: 02/17/2022 (0949) by:[facility]Ad[facility] Print D/T: S: 02/17/2022 (0953) BATCH NO: N/A Name: JERI VILLALOBOS [facility] Phys: Tiburcio Angel MD [address] [facility] : 1975 Age: 46 Sex: F [place] [address] Loc: N.2050 1 Exam Date: 02/16/2022 Status: ADM IN PH: FAX: PAGE 2 [id number] 07:58:00 Test Item Value Reference Range Interpretation Comments GLUBED (test code = GLUBED) 110 MG/DL 70-105 H HCG [id number] 03:51:00 Test Item Value Reference Range Interpretation [...] nitoring the treatment o fcancer patients PROTHROMBIN [id number] 03:39:00 Test Item Value Reference Range Interpretation [...] .5 recurrent syste chong embolism. THROMBOPLASTIN TIME [id number] 03:39:00 Test Item Value Reference Range Interpretation Comments THROMBOPLASTIN TIME PARTIAL (test 29 SECONDS 25-38 N code = PTT) BASIC METABOLIC [id number] 03:39:00 Test Item Value Reference Range Interpretation [...] mg/dL 8.5-10.5 N = CA) CBC W/AUTO [id number] 03:26:00 Test Item Value Reference Range Interpretation [...] = BA#) 0.1 x10 3/uL 0.0-0.1 N [id number] 00:22:00 Test Item Value Reference Range Interpretation Comments GLUBED (test code = GLUBED) 112 MG/DL 70-105 H [id number] 16:32:00 Test Item Value Reference Range Interpretation Comments GLUBED (test code = GLUBED) 112 MG/DL 70-105 H [id number] 12:51:00 Test Item Value Reference Range Interpretation Comments GLUBED (test code = GLUBED) 118 MG/DL 70-105 H [id number] 07:34:00 Test Item Value Reference Range Interpretation Comments GLUBED (test code = GLUBED) 97 MG/DL 70-105 N COMPREHENSIVE METABOLIC [id number] 07:32:00 Test Item Value Reference Range Interpretation [...] 42-121 N PHOSPHATASE (test code = ALKP) [id number] 04:16:00 Test Item Value Reference Range Interpretation Comments CREATININE (test code = CREAT) 0.63 mg/dL 0.44-1.03 N [id number] 04:16:00 Test Item Value Reference Range Interpretation Comments PHOSPHOROUS (test code = PHOS) 3.9 mg/dl 2.5-4.6 N [id number] 04:16:00 Test Item Value Reference Range Interpretation Comments MAGNESIUM (test code = MAG) 2.0 mg/dl 1.8-2.5 N [id number] 00:03:00 Test Item Value Reference Range Interpretation Comments GLUBED (test code = GLUBED) 110 MG/DL 70-105 H UA RFLX MICR CULT IF [id number] 13:51:00 Test Item Value Reference Range Interpretation [...] for culture: RiskForSepsis-no oth srcSpecimen Description: CATHETERIZED (STRAIGHT)[id number] 11:24:00 Test Item Value Reference Range Interpretation Comments GLUBED (test code = GLUBED) 106 MG/DL 70-105 H - DUP VEIN UNI [id number] 10:04:00 [facility] PIA N : 1975 Sex: FPatient Name: JERI VILLALOBOS Unit No: [id number] EXAMS: CPT: [id number] [address] RIGHT UPPER EXTREMITY VENOUS COLOR DOPPLER SCAN [...] Technologist: FAMILIA Chavarria Probe:Trscr Dt/Tm: 02/15/2022 (1004) by:Basil Orig Print D/T: S: 02/15/2022 (1007) BATCH NO: N/A Name: JERI VILLALOBOS [facility] Phys: JUANCARLOS. - Steph Kumari MD [address] [facility] : 1975 Age: 46 Sex: F [place] [address] Loc: N.2050 09 Exam Date: 02/14/2022 Status: ADM IN PH: FAX: PAGE 1 Signed [id number] 07:23:00 Test Item Value Reference Range Interpretation Comments GLUBED (test code = GLUBED) 134 MG/DL 70-105 H - XR CHEST 1 [id number] 06:40:00 [facility] : 1975 Sex: FPatient Name: JERI VILLALOBOS Unit No: [id number] EXAMS: CPT: [id number] XR CHEST 1 V 60981 Portable chest, 02/15/2022. Clinical: Aspiration. Comment: The [...] (0643) BATCH NO: N/A Name: JERI VILLALOBOS [facility] Phys: Jorje Brasher MD [address] [place] : 1975 Age: 46 Sex: F [place], [place] [address] Loc: N.2051 1 Exam Date: 02/15/2022 Status: ADM IN PH: FAX: PAGE 1Signed Report [id number] 06:14:00 Test Item Value Reference Range Interpretation Comments GLUBED (test code = GLUBED) 179 MG/DL 70-105 H BASIC METABOLIC [id number] 04:28:00 Test Item Value Reference Range Interpretation [...] code 8.5 mg/dL 8.5-10.5 N = CA) [id number] 04:28:00 Test Item Value Reference Range Interpretation Comments PHOSPHOROUS (test code = PHOS) 3.7 mg/dl 2.5-4.6 N [id number] 04:28:00 Test Item Value Reference Range Interpretation Comments MAGNESIUM (test code = MAG) 1.7 mg/dl 1.8-2.5 L CBC W/AUTO [id number] 04:18:00 Test Item Value Reference Range Interpretation [...] BA#) 0.0 x10 3/uL 0.0-0.1 N SED [id number] 02:39:00 Test Item Value Reference Range Interpretation Comments SED RATE (test code = SEDW) 57 mm/hr 0-20 H HIGH SENSITIVITY [id number] 01:33:00 Test Item Value Reference Range Interpretation Comments HIGH SENSITIVITY CRP (test code = 5.257 mg/dl 0.000-0.747 H CRPHS) [id number] 00:38:00 Test Item Value Reference Range Interpretation Comments GLUBED (test code = GLUBED) 96 MG/DL 70-105 N [id number] 16:56:00 Test Item Value Reference Range Interpretation Comments GLUBED (test code = GLUBED) 124 MG/DL 70-105 H ARTERIAL BLOOD [id number] 10:08:00 Test Item Value Reference Range Interpretation [...] d message] code = MARY) The system [employer] generated this result transmit may reference range [...] code 12.5 g/dL 12.0-18.0 N = THB) [id number] 08:45:00 Test Item Value Reference Range Interpretation Comments GLUBED (test code = GLUBED) 112 MG/DL 70-105 H [id number] 04:22:00 Test Item Value Reference Range Interpretation Comments PHOSPHOROUS (test code = PHOS) 4.5 mg/dl 2.5-4.6 N [id number] 04:22:00 Test Item Value Reference Range Interpretation Comments MAGNESIUM (test code = MAG) 1.9 mg/dl 1.8-2.5 N BASIC METABOLIC [id number] 04:14:00 Test Item Value Reference Range Interpretation [...] mg/dL 8.5-10.5 N = CA) CBC W/AUTO [id number] 04:03:00 Test Item Value Reference Range Interpretation [...] = BA#) 0.1 x10 3/uL 0.0-0.1 N [id number] 23:41:00 Test Item Value Reference Range Interpretation Comments GLUBED (test code = GLUBED) 89 MG/DL 70-105 N [id number] 18:22:00 Test Item Value Reference Range Interpretation Comments GLUBED (test code = GLUBED) 126 MG/DL 70-105 H - XR CHEST 1 [id number] 06:29:00 [facility] : 1975 Sex: FPatient Name: JERI VILLALOBOS Unit No: [id number] EXAMS: CPT: [id number] XR CHEST 1 V 19645 Portable chest, 02/13/2022. Clinical: Aspiration. Comment: The [...] m2): Air Kerma (mGy): Trscr Dt/Tm: 02/13/2022 (0629) by:[email or web address] Orig Print D/T: S: 02/13/2022 (0632) BATCH NO: N/A Name: JERI VILLALOBOS [facility] Phys: SANWILL01 - Tejas Zapata [address] [place] : 1975 Age: 46 Sex: F [place] [address] Loc: N.2050 09 Exam Date: 02/13/2022 Status: ADM IN PH: FAX: PAGE 1 Signed ReportCOMPREHENSIVE METABOLIC [id number] 04:15:00 Test Item Value Reference Range Interpretation [...] 42-121 N PHOSPHATASE (test code = ALKP) [id number] 04:15:00 Test Item Value Reference Range Interpretation Comments PHOSPHOROUS (test code = PHOS) 3.4 mg/dl 2.5-4.6 N [id number] 04:15:00 Test Item Value Reference Range Interpretation Comments MAGNESIUM (test code = MAG) 1.9 mg/dl 1.8-2.5 N CBC W/AUTO [id number] 04:06:00 Test Item Value Reference Range Interpretation [...] = BA#) 0.0 x10 3/uL 0.0-0.1 N [id number] 00:07:00 Test Item Value Reference Range Interpretation Comments GLUBED (test code = GLUBED) 109 MG/DL 70-105 H [id number] 18:06:00 Test Item Value Reference Range Interpretation Comments GLUBED (test code = GLUBED) 113 MG/DL 70-105 H [id number] 12:18:00 Test Item Value Reference Range Interpretation Comments GLUBED (test code = GLUBED) 111 MG/DL 70-105 H - XR CHEST 1 [id number] 06:13:00 [facility] : 1975 Sex: FPatient Name: JERI VILLALOBOS Unit No: [id number] EXAMS: CPT: [id number] XR CHEST 1 V 86657 Portable chest, 02/12/2022. Clinical: Pneumonia. Comment: The airway and gastric tubes remain in place. There are bilateral consolidations primarily within the left lung and right base. There is no evidence of pneumothorax. The regional skeleton appears stable. IMPRESSION: No significant change since 02/10/2022. E lectronically Signed by Curtis Llamas MD on 02/12/2022 at 0613 Reported and signed by: Curtis Llamas MD CC: Love Kumar MD; Steph Kumari MD Technologist: Papito Grider Fluoro Time: DAP (Gy m2): Air Kerma (mGy): Trscr Dt/Tm: 02/12/2022 (612) by:[email or web address] Orig Print D/T: S: 02/12/2022 (0616) BATCH NO: N/A Name: FABI,PIA N [facility] Phys: JUANCARLOS.Derick Steph Kumari MD [address] [facility] : 1975 Age: 46 Sex: F [place] [address] Loc: N.2050 09 Exam Date: 02/12/2022 Status: ADM IN PH: FAX: PAGE 1 Signed ReportCALCIUM [id number] 06:12:00 Test Item Value Reference Range Interpretation Comments CALCIUM IONIZED (test code = WESLY) 1.14 mmol/L 1.13-1.32 N [id number] 05:52:00 Test Item Value Reference Range Interpretation Comments PHOSPHOROUS (test code = PHOS) 2.7 mg/dl 2.5-4.6 N [id number] 05:52:00 Test Item Value Reference Range Interpretation Comments MAGNESIUM (test code = MAG) 1.7 mg/dl 1.8-2.5 L CBC W/AUTO [id number] 05:18:00 Test Item Value Reference Range Interpretation [...] 0.0 x10 3/uL 0.0-0.1 N COMPREHENSIVE METABOLIC [id number] 05:12:00 Test Item Value Reference Range Interpretation [...] 42-121 N PHOSPHATASE (test code = ALKP) [id number] 01:02:00 Test Item Value Reference Range Interpretation Comments GLUBED (test code = GLUBED) 110 MG/DL 70-105 H HGBA1C - GLYCOSYLATED [id number] 19:19:00 Test Item Value Reference Range Interpretation [...] red blood cells - MRI BRAIN W/O [id number] 16:41:00 [facility] : 1975 Sex: FPatient Name: JERI VILLALOBOS Unit No: [id number] EXAMS: CPT: [id number] MRI BRAIN W/O CONTRAST 19433 EXAM: MRI brain without intravenous contrast HISTORY: [...] Wedge shaped region of restricted diffusion in theinferior right cerebellar hemisphere, also compatible with acute infarct. This was also reported previously. No acute hemorrhage or mass effect at this time. Don Marshall DO Neuroradiology at 1641 Reported and signed by: DON MARSHALL MD Name:JERI VILLALOBOS [facility] Phys: JUANCARLOS.02 - Steph Kumari MD [address] [facility] : 1975 Age: 46 Sex: F [place] [address] Loc: N.2050 09 Exam Date: 02/11/2022 Status: ADM IN PH: FAX: PAGE 1 Signed Report (CONTINUED) Patient Name: JERI VILLALOBOS Unit No: [id number] EXAMS: CPT: [id number] MRI BRAIN W/O CONTRAST 82203 (Continued) CC: Love Kumar MD; Steph Kumari MD Technologist: Natty Perez [facility] Dt/Tm: 02/11/2022 (1640) by:[email or web address] Orig Print D/T: S: 02/11/2022 (164) BATCH NO: N/A Name: JERI VILLALOBOS [facility] Phys: JUANCARLOS. 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 THROMBOPLASTIN TIME [id number] 16:14:00 Test Item Value Reference Range Interpretation Comments THROMBOPLASTIN TIME PARTIAL (test 31 SECONDS 25-38 N code = PTT) COMPREHENSIVE METABOLIC [id number] 16:03:00 Test Item Value Reference Range Interpretation [...] risk) >23 >11 Spec Comments: MUST BE [id number] 16:03:00 Test Item Value Reference Range Interpretation Comments MAGNESIUM (test code = MAG) 2.1 mg/dl 1.8-2.5 N Spec Comments: MUST BE [id number] 15:49:00 Test Item Value Reference Range Interpretation Comments TROPONIN-I (test code = TROPI) <0.020 ng/mL 0.000-0.034 N CBC W/AUTO [id number] 15:34:00 Test Item Value Reference Range Interpretation [...] 3/uL 0.0-0.1 N - CT HEAD/BRAIN W/O [id number] 13:11:00 [facility] : 1975 Sex: FPatient Name: JERI VILLALOBOS Unit No: [id number] EXAMS: CPT: [id number] CT HEAD/BRAIN W/O CONT 13726 Comparison study: 02/09/2022 HISTORY: anoxic brain injury [...] (1315) BATCH NO: N/A Name: JERI VILLALOBOS [facility] Phys: JUANCARLOS. Steph Kumari MD [address] [facility] : 1975 Age: 46 Sex: F [place] [address] Loc: N.2050 09 Exam Date: 02/11/2022 Status: ADM IN PH: FAX: PAGE 1 Signed [id number] 11:47:00 Test Item Value Reference Range Interpretation Comments GLUBED (test code = GLUBED) 98 MG/DL 70-105 N COMPREHENSIVE METABOLIC [id number] 06:39:00 Test Item Value Reference Range Interpretation [...] N PHOSPHATASE (test code = ALKP) CALCIUM [id number] 06:33:00 Test Item Value Reference Range Interpretation Comments CALCIUM IONIZED (test code = WESLY) 1.12 mmol/L 1.13-1.32 L CBC W/AUTO [id number] 06:27:00 Test Item Value Reference Range Interpretation [...] = BA#) 0.0 x10 3/uL 0.0-0.1 N [id number] 05:34:00 Test Item Value Reference Range Interpretation Comments PHOSPHOROUS (test code = PHOS) 2.1 mg/dl 2.5-4.6 L [id number] 05:34:00 Test Item Value Reference Range Interpretation Comments MAGNESIUM (test code = MAG) 1.9 mg/dl 1.8-2.5 N ARTERIAL BLOOD [id number] 05:23:00 Test Item Value Reference Range Interpretation [...] d message] code = MARY) The system [employer] generated this result transmit may reference range [...] code 13.3 g/dL 12.0-18.0 N = THB) [id number] 16:35:00 Test Item Value Reference Range Interpretation Comments GLUBED (test code = GLUBED) 71 MG/DL 70-105 N [id number] 12:07:00 Test Item Value Reference Range Interpretation Comments GLUBED (test code = GLUBED) 148 MG/DL 70-105 H [id number] 11:42:00 Test Item Value Reference Range Interpretation Comments GLUBED (test code = GLUBED) 59 MG/DL 70-105 L COVID 19 INHOUSE [id number] 10:50:00 Test Item Value Reference Range Interpretation Comments COVID 19 INHOUSE AG NEGATIVE Negative Negative results should be (test code = treated as pres umptive [id number]) andconfirmed wi th a molecular assay , [...] oms consistent withCOVID-19.Sp ecimen Source: Nasopha ryngeal (PATIENT COMPANION) Swab COAGULATION TIME [id number] 08:14:00 Test Item Value Reference Range Interpretation Comments COAGULATION TIME ACTIVATED (test 159 SECONDS 91-151 H code = ACT) - XR ABDOMEN [id number] 07:53:00 [facility] : 1975 Sex: FPatient Name: JERI VILLALOBOS Unit No: [id number] EXAMS: CPT: [id number] XR ABDOMEN 1V 13044 COMPARISON: None available CLINICAL HISTORY: OG TUBE [...] CC: Love Kumar MD; Tejas Zapata Technologist: Magail Deleon Time: DAP (Gy m2): Air Kerma (mGy): Trscr Dt/Tm: 02/10/2022 (0753) by:[email or web address] Orig Print D/T: S: 02/10/2022 (0756) BATCH NO: N/A Name: JEIR VILLALOBOS [facility] Phys: [id number] - Tejas Zapata [address] [place] : 1975 Age: 46 [place], [place] [address] Loc: N.2051 1 Exam Date: 02/10/2022 Status: ADM IN PH: FAX: PAGE 1 Signed Report- XR CHEST 1 [id number] 07:41:00 [facility] : 1975 Sex: FPatient Name: JERI VILLALOBOS Unit No: [id number] EXAMS: CPT: [id number] XR CHEST 1 V 49693 AP CHEST 1 VIEW COMPARISON: February 09, [...] (0744) BATCH NO: N/A Name: JERI VILLALOBOS [facility] Phys: [id number] Anisa Epperson NP [address] [place] : 1975 Age: 46 Sex: F [place], [place] [address] Loc: N.2051 1 Exam Date: 02/10/2022 Status: ADM IN PH: FAX: PAGE 1 Signed [id number] 07:14:00 Test Item Value Reference Range Interpretation Comments PHOSPHOROUS (test code = PHOS) 2.3 mg/dl 2.5-4.6 L [id number] 07:14:00 Test Item Value Reference Range Interpretation Comments MAGNESIUM (test code = MAG) 1.8 mg/dl 1.8-2.5 N CALCIUM [id number] 06:51:00 Test Item Value Reference Range Interpretation Comments CALCIUM IONIZED (test code = WESLY) 1.11 mmol/L 1.13-1.32 L COMPREHENSIVE METABOLIC [id number] 06:02:00 Test Item Value Reference Range Interpretation [...] PHOSPHATASE (test code = ALKP) ARTERIAL BLOOD [id number] 05:43:00 Test Item Value Reference Range Interpretation [...] d message] code = MARY) The system [employer] generated this result transmitted ref erence range: [...] g/dL 12.0-18.0 N = THB) CBC W/AUTO [id number] 05:06:00 Test Item Value Reference Range Interpretation [...] 3/uL 0.0-0.1 N DRUGS OF ABUSE SCREEN [id number] 19:54:00 Test Item Value Reference Range Interpretation [...] [facility] use and [facility]. UR CANABINOIDS (test POSITIVE NEGATIVE A [...] ff concentrations by thebstance Ab use and [facility]. UR AMPHETAMINE (test POSITIVE NEGATIVE A The ing estion of natural code = AMPHU) herbal and carlo nt productscontain ing Ephedra/Ephedra -Metabolit es can produce in urineone or mor e substances capa ble of cross-reacting withAmphetamine /Methamphe juan luis melendez says. This testprovides a preliminary [...] ff concentrations by thebstance Ab use and [facility]. UR BARBITURATE (test NEGATIVE NEGATIVE This [...] ng/mLRecommende d screening cut-o ff concentrations by [facility] and [facility]. UR BENZODIAZEPINE NEGATIVE NEGATIVE This [...] by [facility] Ab use and [facility]. UR OPIATES QUAL (test NEGATIVE NEGATIVE This [...] by [facility] Ab use and [facility]. UR PHENCYCLIDINE NEGATIVE NEGATIVE This [...] by [facility] Ab use and [facility]. URINALYSIS [id number] 19:43:00 Test Item Value Reference Range Interpretation [...] code = 1+ /LPF NONE SEEN MUCU) [id number] 17:19:00 Test Item Value Reference Range Interpretation Comments GLUBED (test code = GLUBED) 95 MG/DL 70-105 N ARTERIAL BLOOD [id number] 16:39:00 Test Item Value Reference Range Interpretation [...] d message] code = MARY) The system [employer] generated this result transmit may reference range [...] N = THB) - XR CHEST 1 [id number] 14:10:00 [facility] 1975 Sex: FPatient Name: JERI VILLALOBOS Unit No: [id number] EXAMS: CPT: [id number] XR CHEST 1 V 06074 XR CHEST 1 VIEW HISTORY: ETT PLACEMENT [...] (1414) BATCH NO: N/A Name: JERI VILLALOBOS [facility] Phys: [id number] - Love Kumar V [address] : 1975 Age: 46 Sex: F [place] [address] Loc: N.2051 1 Exam Date: 02/09/2022 Status: ADM IN PH: FAX: PAGE 1 Signed Report- CT C-SPINE W/O [id number] 13:29:00 [facility] : 1975 Sex: FPatient Name: JERI VILLALOBOS Unit No: [id number] EXAMS: CPT: [id number] CT C-SPINE W/O CONT 82658 CT CERVICAL SPINE Multiplanar imaging of the cervical spine was performed without contrast. Radiation dose optimization was achieved by protocols in accordance with standard of practice, department policies and metal trades instructor's recommendations with one or more of the [...] disc degeneration and spondylosis. Name: JERI VILLALOBOS [facility] Phys: Ruiz Wolfe MD [address] [facility] 1975 Age: 46 Sex: F [place] [address] Loc: N.2050 1 Exam Date: 02/09/2022 Status: ADM IN PH: FAX: PAGE 1 Signed Report (CONTINUED) Patient Name: MIRELA VILLALOBOSNahum Horton Unit No: [id number] EXAMS: CPT: [id number] CT C-SPINE W/O CONT 94550 (Continued) Multilevel facet arthrosis. at 1329 Reported and signed by: Derick Norton MD CC: Ruiz Vaughn MD; Manuel Rose DO Technologist: Sarah Perez CTDI: 13.02 DLP:277.12 Trscr Dt/Tm: 02/09/2022 (1329) by:Cheri [facility] Print D/T: S: 02/09/2022 (1852) BATCH NO: N/A Name: JERI VILLALOBOS [facility] Phys: Ruiz Wolfe MD [address] [facility] : 1975 Age: 46 Sex: F [place] [address] Loc: N.2050 1 Exam Date: 02/09/2022 Status: ADM IN PH: FAX: PAGE 2 Signed Report- CTA CHEST FOR [id number] 13:24:00 [facility] : 1975 Sex: FPatient Name: JERI VILLALOBOS Unit No: [id number] EXAMS: CPT: [id number] [place] [address] CTA CHESTWITH CONTRAST: INDICATIONS:Pulmonary embolism. COMPARISON: None [...] with ACR practice standards and adherence to metal trades instructor's recommendations. Contrast: 100cc Isovue-300. Total DPL: 1497.94mGy*cm. [...] by: Jalen Black MD Name: FABI,JERI [facility] Phys: Ruiz Wolfe MD [address] [facility] : 1975 Age: 46 Sex: F [place], [place] [address] Loc: N.2050 1 Exam Date: 02/09/2022 Status: ADM IN PH: FAX: PAGE 1 Signed Report (CONTINUED) Patient Name: JERI VILLALOBOS [facility] Unit No: [id number] EXAMS: CPT: [id number] [place] [address] (Continued) CC: Ruiz Vaughn MD; Manuel Rose DO Technologist: Sarah Perez CTDI: 1106 DLP: 398.57 Trscr Dt/Tm: 02/09/2022 (1324) by:[email or web address] Orig Print D/T: S: 02/09/2022 (1327) BATCH NO: N/A Name: MIRELA VILLALOBOSNahum Horton [facility] Phys: Ruiz Wolfe MD [address] [facility] : 1975 Age: 46 Sex: F [place], [place] [address] Loc: N.2050 1 Exam Date: 02/09/2022 Status: ADM IN PH: FAX: PAGE 2 Signed Report- CT HEAD/BRAIN W/O [id number] 13:17:00 [facility] 1975 Sex: FPatient Name: JERI VILLALOBOS [facility] Unit No: [id number] EXAMS: CPT: [id number] CT HEAD/BRAIN W/O CONT 03239 CT HEAD Multiplanar imaging was performed without contrast. Radiation dose optimization was achieved by protocols in accordance with standard of practice, department policies and metal trades instructor's recommendations with one or more of the [...] by: Derick Norton MD Name: JERI VILLALOBOS [place] Phys: Ruiz Wolfe MD [address] [facility] : 1975 Age: 46 Sex: F [place] [address] Loc: N.2050 1 Exam Date: 02/09/2022 Status: ADM IN PH: FAX: PAGE 1 Signed Report (CONTINUED) Patient Name: FABIJERI Unit No: [id number] EXAMS: CPT: [id number] CT HEAD/BRAIN W/O CONT 51044 (Continued) CC: Ruiz Vaughn MD; Manuel Rose DO Technologist: Sarah Perez CTDI: 45.45 DLP: 736.2 Trscr Dt/Tm: 02/09/2022 (1317) by:Cheri Orig Print D/T: S: 02/09/2022 (1320) BATCH NO: N/A Name: JERI VILLALOBOS [facility] Phys: Ruiz Wolfe MD [address] : 1975 Age: 46 Sex: F [place], [place] [address] [id number] Loc: N.1 1 Exam Date: 02/09/2022 Status: ADM IN PH: FAX: PAGE 2 Signed ReportLACTIC [id number] 11:06:00 Test Item Value Reference Range Interpretation Comments LACTIC ACID (test code = LACT) 1.6 mmol/L 0.5-2.0 N ARTERIAL BLOOD [id number] 09:33:00 Test Item Value Reference Range Interpretation [...] [Automate d code = MARY) message] The [employer] stem which generated this result transmitted reference [...] g/dL 12.0-18.0 N = THB) CBC W/AUTO [id number] 07:34:00 Test Item Value Reference Range Interpretation [...] 8.8 fL 8.6-12.6 N = MPV) WBC [id number] 07:34:00 Test Item Value Reference Range Interpretation [...] 3/uL 0.00-0.00 N = OCT#) COMPREHENSIVE METABOLIC [id number] 06:52:00 Test Item Value Reference Range Interpretation [...] 42-121 N PHOSPHATASE (test code = ALKP) [id number] 05:45:00 Test Item Value Reference Range Interpretation Comments GLUBED (test code = GLUBED) 150 MG/DL 70-105 H - XR CHEST 1 [id number] 03:56:00 [facility] : 1975 Sex: FPatient Name: JERI VILLALOBOS Unit No: [id number] EXAMS: CPT: [id number] XR CHEST 1 V 22229 CHEST 1 VIEW CLINICAL HISTORY: Shortness of [...] (0400) BATCH NO: N/A Name: JERI VILLALOBOS [facility] Phys: Chris Blas MD [address] [place] : 1975 Age: 46 Sex: [place] [address] Loc: N.ERS Exam Date: 02/09/2022 Status: REG ER PH: FAX: PAGE 1 Signed Report
[2023-01-04 03:54] LABS: Absolute Lymphocytes (CBC) 0.6 K/uL (0.7-4.9); Hematocrit 32.5 % (36.0-45.0); Lymphocytes % 4.5 % (15.3-44.8); MCV 80.7 fL (80-100); MPV 7.7 fL (7.6-11.3); RBC Red Blood Cell Count 4.03 M/uL (3.86-4.86)
[2023-01-04 04:08] LABS: Albumin 2.4 g/dL (3.4-5.0); Bilirubin Total 0.2 mg/dL (0.2-1.0); Potassium 3.9 mEq/L (3.5-5.1); Protein, Total 7.5 g/dL (6.4-8.2)
[2023-01-04 04:10] LABS: Calcium Oxalate Crystals- Ur Few /HPF (None Seen); Renal Epithelial <5 /HPF (None Seen); Specific Gravity 1.018 (1.005-1.030); Urine Bacteria <20 /HPF (<20); Urine Bilirubin NEGATIVE (Negative); Urine Blood Negative (Negative); Urine Clarity Extremely Turbid (Clear); Urine Color Yellow (Yellow); Urine Glucose NEGATIVE (Negative); Urine Mucus Slight /HPF (None Seen); Urine Protein TRACE (Negative); Urine RBC >50 /HPF (None Seen); Urine Urobilinogen Normal (Normal); Urine Yeast with Hyphae Occasional /HPF (None Seen)
[2023-01-04 04:26] LABS: SARS-COV-2 RT PCR NEGATIVE (NEGATIVE)
[2023-01-04] MEDS ORDERED: NA CHLORIDE 0.9% 1,000 ML ONE (04:28)
[2023-01-04] MEDS ORDERED: Levofloxacin 750mg IV 750 MG/150 ML BAG IV ONE (04:28)
[2023-01-04] MEDS ORDERED: ACETAMINOPHEN 650MG/RECT SUPP PR ONE ×2 (04:28→13:30)
[2023-01-04] MEDS ORDERED: IPRATROPIUM BROM 0.5MG/2.5ML ONE (04:38)
[2023-01-04] MEDS ORDERED: LEVALBUTEROL 1.25 MG/3 ML NEB ONE (04:38)
[2023-01-04 04:43] LABS: Blood Morphology Comment NOT SEEN (NOT SEEN); Platelet Estimate ADEQ
[2023-01-04 04:45] LABS: Protime INR 1.06
--- NOTE | 2023-01-04 05:14 | ER ---
Nurse's Notes [facility] Name: Angelique Villalobos Age: 47 yrs Sex: Female : 1975 Arrival Date: 01/04/2023 Time: 02:23 Bed 19 Private MD: Diagnosis: Unspecified bacterial pneumonia;Left lower lung pneumonia with consolidation, SIRS, prolonged immobility, complications associated with immobility, dependence on tracheostomy, chronic respiratory failure Presentation: 01/04 02:38 Chief complaint: EMS states: EMS toned out for SOB by [place]. On arrival to 3 facility, pt trach suctioned. SOB resolved. Coronavirus screen: Client denies travel out of the [place] in the last 14 days. At this time, the client does not indicate any symptoms associated with coronavirus-19. Ebola Screen: No symptoms or risks identified at this time. Initial Sepsis Screen: Does the patient meet any 2 criteria? No. Patient's initial sepsis screen is negative. Does the patient have a suspected source of infection? No. Patient's initial sepsis screen is negative. Risk Assessment: Do you want to hurt yourself or someone else? Patient reports no desire to harm self or others. Onset of symptoms was January 04, 2023. 02:38 Method Of Arrival: EMS: [facility] 02:38 Acuity: DELMER 3 lg3 Triage Assessment: 02:44 General: Appears slender, unkempt, malnourished. Pain: Unable to use pain scale. EENT: lg3 No deficits noted. No signs and/or symptoms were reported regarding the EENT system. Neuro: Level of Consciousness is awake. Cardiovascular: No deficits noted. Capillary refill < 3 seconds Clubbing of nail beds Patient's skin is warm and dry. Respiratory: Trach in place. 10L \T\ 40% via aerosol Trach collar Ventilator assessment: HOB > 30 degrees. Suction provided. Breath sounds are clear bilaterally. GI: No deficits noted. Abdomen is flat, non-distended, PEG tube in place, Site clean. : No deficits noted. Randolph in place to gravity drainage Urine is clear. Derm: Wound noted coccyx and left gluteus jimmy. Musculoskeletal: Range of motion: limited in all extremities. 05:47 General: Behavior is flat. lg3 PRODUCT DEVELOPMENT INTERN: 02:44 LMP N/A - Irregular menses lg3 Historical: - Allergies: 02:44 albuterol sulfate; lg3 - Home Meds: 02:44 Unable to obtain [Active]; lg3 - PMHx: 02:44 anoxic brain injury; CVA; Hyperlipidemia; MRSA; lg3 - PSHx: 02:44 PEG tube; tracheostomy; lg3 - Immunization history:: Adult Immunizations unknown. - Social history:: Smoking status: unknown. - Family history:: not pertinent. Screenin:24 [facility] ED Fall Risk Assessment (Adult) History of falling in the last 3 months, lg3 including since admission No falls in past 3 months (0 pts). Abuse screen: Denies threats or abuse. Denies injuries from another. Nutritional screening: On NPO diet. Tuberculosis screening: No symptoms or risk factors identified. Assessment: 02:58 General: see triage assessment . lg3 05:37 Reassessment: Patient appears in no apparent distress at this time. No changes from lg3 previously documented assessment. Neuro: Strong Agitation-Sedation Scale (RASS): 0 - Alert and Calm Level of Consciousness is awake. Respiratory: Airway is patent Respiratory effort is even, unlabored, Respiratory pattern is regular, symmetrical. Vital Signs: 02:38 BP 100 / 70; Pulse 107; Resp 19 S; Temp 100.8(R); Pulse Ox 96% on 6 lpm trach; Weight lg3 43.14 kg (R); Height 5 ft. 3 in. (R); 05:38 BP 101 / 71; Pulse 116; Resp 21; Pulse Ox 100% on 10 lpm trach; lg3 02:38 Body Mass Index 16.85 (43.14 kg, 160.02 cm) lg3 ED Course: 02:23 Patient arrived in ED. ds4 02:26 Michael Mosher MD is Attending Physician. sp4 02:38 Miranda Jones RN is Primary Nurse. lg3 02:42 Triage completed. lg3 02:44 Arm band placed on right wrist. lg3 03:28 Chest Single View XRAY In Process Unspecified. EDMS 04:24 Patient has correct armband on for positive identification. Placed in gown. Bed in low lg3 position. Call light in reach. Side rails up X2. Client placed on continuous cardiac and pulse oximetry monitoring. NIBP monitoring applied. monitor tech on. Door closed. Noise minimized. Warm blanket given. Turned to left side. Cleaned of incontinence. Linen changed. 04:24 Randolph cath removed intact, balloon deflated. Accessed PICC line. Clean \T\ dry. Dressing lg3 intact. Good blood return. Flushes easily. Wound care: to decubitus located on left gluteus jimmy and coccyx was cleaned with soap and water, dressed with 4X4s, Patient tolerated well. 04:29 Randolph cath inserted, using sterile technique, 16 Fr., by ri, balloon inflated, to lg3 gravity drainage, urine specimen collected. 04:[address] In Process Unspecified. EDMS 05:12 Shelton Roland MD is Hospitalizing Provider. sp4 05:38 No provider procedures requiring assistance completed. Patient admitted, IV remains in lg3 place. intact, No redness/swelling at site. Administered Medications: 05:28 Drug: NS 0.9% IV 1000 ml Route: IV; Rate: 1 bolus; Site: right upper arm; aa9 06:42 Follow up: Response: No adverse reaction; IV Status: Completed infusion; IV Intake: lg3 1000ml 05:28 Drug: LevaQUIN IVPB 750 mg Route: IVPB; Site: right upper arm; aa9 06:43 Follow up: IV Status: Completed infusion; IV Intake: 250ml lg3 05:31 Drug: DuoNeb Nebulize (3:1) (2.5 mg - 0.5 mg) 3 ml Route: Nebulizer; lg3 06:10 Follow up: Response: No adverse reaction lg3 05:48 Drug: Acetaminophen TX Suppository 650 mg Route: TX; lg3 08:53 Follow up: Response: No adverse reaction db 06:10 Drug: cefTAZidime IVPB 2 grams Route: IVPB; Infused Over: 30 mins; Site: PICC; lg3 06:43 Follow up: Response: No adverse reaction; IV Status: Completed infusion; IV Intake: lg3 100ml 07:00 Follow up: Response: No adverse reaction; IV Status: Completed infusion; IV Intake: db 100ml Medication: 05:38 VIS not applicable for this client. lg3 Intake: 06:42 IV: 1000ml; Total: 1000ml. lg3 06:43 IV: 250ml; Total: 1250ml. lg3 06:43 IV: 100ml; Total: 1350ml. lg3 07:00 IV: 100ml; Total: 1450ml. db Outcome: 05:13 Decision to Hospitalize by Provider. sp4 05:38 Admitted to ER Hold. Please see [facility] for further documentation. lg3 05:38 Condition: stable 05:38 Instructed on the need for admit. 20:39 Patient left the ED. ld1 Signatures: Dispatcher [employer] EDMS Suresh Gooden ds4 Miranda Jones, RN RN lg3 Nasrin Seay RN RN ld1 Carol Barnett, SHARON RN [id number] Lina Lewis RN RN db Michael Mosher MD MD sp4 Corrections: (The following items were deleted from the chart) 02:44 02:38 BP 100 / 70; Pulse 107bpm; Resp 19bpm; Spontaneous; Pulse Ox 96% 6 lpm trach; lg3 Temp 99.2F Temporal; 47.63 kg; Height 5 ft. 3 in. Reported; BMI: 18.6; lg3 04:24 02:38 BP 100 / 70; Pulse 107bpm; Resp 19bpm; Spontaneous; Pulse Ox 96% 6 lpm trach; lg3 Temp 99.2F Temporal; 43.14 kg Reported; Height 5 ft. 3 in. Reported; BMI: 16.8; lg3 04:33 02:38 BP 100 / 70; Pulse 107bpm; Resp 19bpm; Spontaneous; Pulse Ox 96% 6 lpm trach; lg3 Temp 100F Rectal; 43.14 kg Reported; Height 5 ft. 3 in. Reported; BMI: 16.8; lg3
--- NOTE | 2023-01-04 05:14 | EDPHYS ---
Physician Documentation [facility] Name: Angelique Villalobos Age: 47 yrs Sex: Female : 1975 Arrival Date: 01/04/2023 Time: 02:23 Bed 19 Private MD: ED Physician Michael Mosher HPI: 01/04 02:27 This 47 yrs old Other Female presents to ER via Unassigned with unknown complaint. sp4 02:38 This 47 yrs old Female presents to ER via EMS with complaints of dyspnea . sp4 02:38 47-year-old female with history of traumatic brain injury chronic immobility history of sp4 tracheostomy and trach collar presents with EMS for acute dyspnea, patient is a resident of local assisted. Patient is nonverbal not able to communicate HPI or ROS. EMS states tracheostomy was suctioned and patient is breathing has improved. . 03:31 Patient has a history of anoxic brain injury, quadriplegia, paroxysmal sympathetic sp4 hyperactivity, tracheostomy dependence, gastrostomy dependence. Patient was managed at this hospital on 11/23/2022 and discharged on 12/01/2022 for a left hip and sacral decubitus ulcers, pneumonia, quadriplegia, and catheter associated UTI. Patient had left lower lung pneumonia. Patient was transitioned to oral doxycycline and ceftazidime based on antibiotic sensitivity. Patient's clinical course was stable patient was discharged on 6 weeks of antibiotic therapy including doxycycline and IV ceftazidime, patient has a right arm PICC line double-lumen. Patient's current medications; baclofen 5 mg p.o. 3 times daily, gabapentin, MiraLAX, clonidine, ipratropium, Zoloft, acetaminophen, Mucomyst, Jevity, Klonopin, chewable aspirin, atorvastatin, metoprolol, Xarelto, all administer via gastrostomy tube additional medications include collagenase, Nahun, ceftazidime IV 1 g every 8 hours, doxycycline 100 mg twice daily via gastrostomy tube, and a wound care gel Medihoney. . 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 - Social history:: Smoking status: unknown. - Family history:: not pertinent. ROS: 03:31 Constitutional: Negative for fever, otherwise unable to collect ROS secondary to sp4 nonverbal place 03:31 All other systems are negative. 03:31 All other systems are negative. 03:31 All other systems are negative. 03:31 Unable to obtain ROS due to patient is in a persistent vegetative state. Exam: 03:36 Constitutional: This is ill-appearing severely debilitated female, nonverbal, sp4 persistent vegetative state, thin malnourished appearing, tracheostomy dependent with a trach collar, gastrostomy tube in place, indwelling Randolph catheter, moderate to severe decubitus ulcers sacrum, right and left buttocks. Moderate to severe diffuse muscular atrophy, at this time nontoxic-appearing with chronic ill appearance. Head/Face: Normocephalic, atraumatic. Eyes: Pupils equal round and reactive to light, conjunctiva appears normal, lids appear normal ENT: Nares patent. No nasal discharge, no septal abnormalities noted. Tympanic membranes are normal and external auditory canals are clear. Dry mucous membranes Neck: Trachea midline, no thyromegaly or masses palpated, and no cervical lymphadenopathy. Supple, chronic neck contractures from immobility, tracheostomy present and is patent, tracheostomy collar present. Chest/axilla: Normal chest wall appearance and motion. Nontender with no deformity. No lesions are appreciated. Bilateral breast implants noted Cardiovascular: Tachycardia that is regular with a normal S1 and S2. No gallops, murmurs, or rubs. Normal PMI, no JVD. No pulse deficits. Respiratory: Lungs have equal breath sounds bilaterally, clear to auscultation and percussion. No rales, rhonchi or wheezes noted. Tachypnea on exam Abdomen/GI: Soft, with normal bowel sounds. No distension or tympany. Gastrostomy tube present left upper quadrant. Multiple tattoos including abdomen Back: No spinal tenderness. No costovertebral tenderness. Pelvic Exam: Normal external genitalia. Indwelling Randolph catheter present, funding specialist present on exam. Skin: Warm, dry with normal turgor. Normal color , extensive sacral and bilateral buttock decubitus ulcers stage III, multiple tattoos, several blistering lesions associated with EKG labels. MS/ Extremity: Pulses equal, no cyanosis. Bilateral pulses are intact, extensive flexion contractures and diffuse muscular atrophy from immobility Neuro: Patient is awake but is nonverbal, persistent vegetative state on exam 03:36 ECG was reviewed by the Attending Physician. EKG time 3:34 AM, there is sinus sp4 tachycardia at the rate of 109, no ST elevation or depression, no ectopy, overall EKG is normal apart from sinus tachycardia Vital Signs: 02:38 BP 100 / 70; Pulse 107; Resp 19 S; Temp 100.8(R); Pulse Ox 96% on 6 lpm trach; Weight lg3 43.14 kg (R); Height 5 ft. 3 in. (R); 05:38 BP 101 / 71; Pulse 116; Resp 21; Pulse Ox 100% on 10 lpm trach; lg3 02:38 Body Mass Index 16.85 (43.14 kg, 160.02 cm) lg3 MDM: 02:36 Patient medically screened. sp4 05:10 Differential Diagnosis sepsis, flu, Bacterial pneumonia, catheter associated UTI, SIRS. sp4 Data reviewed: vital signs, nurses notes, EMS record, old medical records, lab test result(s), cardiac enzymes, CBC, electrolytes, Flu: hepatic panel, urinalysis, EKG, radiologic studies, CT scan, plain films. Consideration of Admission/Observation Patient was admitted/placed on observation. Escalation of care including admission/observation considered. Management of patient was discussed with the following: Hospitalist: Discussed with hospitalist. ED course: Patient CT reveals significant and rather large left lower lung area of consolidation consistent with bacterial pneumonia. Patient will be restarted on ceftazidime IV and she was given IV Levaquin as well. Will also consider IV vancomycin to cover for MRSA. Patient warrants admission to the hospital for management of moderate to severe left lower lung bacterial pneumonia. . 04 02:34 Order name: Blood Culture Adult (2) sp4 01/04 02:34 Order name: CBC with Diff; Complete Time: 04:49 sp4 04 02:34 Order name: CMP; Complete Time: 04:13 sp4 01/04 02:34 Order name: Lactate w/ 2H reflex if indic.; Complete Time: 04:13 sp4 04 02:34 Order name: Protime (+inr); Complete Time: 04:49 sp4 01/04 02:34 Order name: Ptt, Activated; Complete Time: 04:49 sp4 01/04 02:34 Order name: Urinalysis w/ reflexes; Complete Time: 04:49 sp4 01/04 02:35 Order name: COVID-19/FLU A+B; Complete Time: 04:49 sp4 01/04 03:55 Order name: Glucose, Ancillary Testing; Complete Time: 04:00 EDMS 01/04 03:59 Order name: Manual Differential; Complete Time: 04:49 EDMS 01/04 04:20 Order name: Urine Culture EDMS 01/04 06:52 Order name: CBC with Automated Diff EDMS 01/04 06:52 Order name: CBC with Automated Diff EDMS 01/04 06:52 Order name: CBC with Automated Diff EDMS 01/04 06:52 Order name: CBC with Automated Diff EDMS 01/04 06:52 Order name: Comprehensive Metabolic Panel EDMS 01/04 06:52 Order name: Comprehensive Metabolic Panel EDMS 01/04 06:52 Order name: Comprehensive Metabolic Panel EDMS 01/04 06:52 Order name: Comprehensive Metabolic Panel EDMS 01/04 06:52 Order name: Sputum Culture EDMS 01/04 02:34 Order name: Chest Single View XRAY sp4 01/04 03:51 Order name: Chest Wo Con CT la1 01/04 02:34 Order name: EKG; Complete Time: 02:35 sp4 01/04 06:52 Order name: NPO EDMS 01/04 02:34 Order name: Accucheck; Complete Time: 04:29 sp4 01/04 02:34 Order name: Cardiac monitoring; Complete Time: 04:29 sp4 01/04 02:34 Order name: Cath; Complete Time: 04:29 sp4 01/04 02:34 Order name: EKG - Nurse/Tech; Complete Time: 04:29 sp4 01/04 02:34 Order name: IV Saline Lock - Large Bore; Complete Time: 04:29 sp4 01/04 02:34 Order name: Labs collected and sent; Complete Time: 04:30 sp4 01/04 02:34 Order name: O2 Per Protocol; Complete Time: 04:30 sp4 01/04 02:34 Order name: O2 Sat Monitoring; Complete Time: 04:30 sp4 01/04 02:34 Order name: Vital Signs; Complete Time: 04:30 sp4 01/04 02:35 Order name: Tomasa; Complete Time: 04:29 sp4 EC:36 Rate is 109 beats/min. Rhythm is regular, Sinus tachycardia. QRS [place] is Normal. PA sp4 interval is normal. QRS interval is normal. QT interval is normal. T waves are Normal. No ST changes noted. Clinical impression: No evidence of ischemia. Interpreted by me. Administered Medications: 05:28 Drug: NS 0.9% IV 1000 ml Route: IV; Rate: 1 bolus; Site: right upper arm; aa9 06:42 Follow up: Response: No adverse reaction; IV Status: Completed infusion; IV Intake: lg3 1000ml 05:28 Drug: LevaQUIN IVPB 750 mg Route: IVPB; Site: right upper arm; aa9 06:43 Follow up: IV Status: Completed infusion; IV Intake: 250ml lg3 05:31 Drug: DuoNeb Nebulize (3:1) (2.5 mg - 0.5 mg) 3 ml Route: Nebulizer; lg3 06:10 Follow up: Response: No adverse reaction lg3 05:48 Drug: Acetaminophen PA Suppository 650 mg Route: PA; lg3 08:53 Follow up: Response: No adverse reaction db 06:10 Drug: cefTAZidime IVPB 2 grams Route: IVPB; Infused Over: 30 mins; Site: PICC; lg3 06:43 Follow up: Response: No adverse reaction; IV Status: Completed infusion; IV Intake: lg3 100ml 07:00 Follow up: Response: No adverse reaction; IV Status: Completed infusion; IV Intake: db 100ml Disposition Summary: 01/04/23 05:13 Hospitalization Ordered Hospitalization Status: Inpatient Admission sp4 Provider: Shelton Roland Condition: Stable sp4 Problem: new sp4 Symptoms: are unchanged sp4 Bed/Room Type: Standard sp4 Location: Telemetry/MedSurg (Inpatient)(01/04/23 18:38) bd Room Assignment: 224(01/04/23 18:38) bd Diagnosis - Unspecified bacterial pneumonia sp4 - Left lower lung pneumonia with consolidation, SIRS, prolonged immobility, sp4 complications associated with immobility, dependence on tracheostomy, chronic respiratory failure Forms: - Medication Reconciliation Form sp4 - SBAR form sp4 Signatures: Dispatcher [employer] EDNicole Xiao Martha RN RN David Rutherford, VISUAL MERCHANDISING ASSOCIATE-C VISUAL MERCHANDISING ASSOCIATE-Cla1 Miranda Jones RN RN lg3 Carol Barnett RN RN aa9 Michael Mosher MD MD sp4 Lina Lewis RN db Corrections: (The following items were deleted from the chart) 05:20 05:13 Telemetry/MedSurg (Inpatient) sp4 mw 05:20 05:13 sp4 mw 18:38 05:20 [facility] ER HOLD mw bd 18:38 05:20 ERHOLD- mw bd
--- NOTE | 2023-01-04 05:39 | P.HP ---
Certification for Inpatient Patient admitted to: Inpatient With expected LOS: >2 Midnights Patient will require the following post-hospital care: None Practitioner: I am a practitioner with admitting privileges, knowledge of patient current condition, hospital course, and medical plan of care. Services: Services provided to patient in accordance with Admission requirements found in Title 42 Section 412.3 of the Code of Federal Regulations Patient History Date of Service: 01/04/23 Reason for admission: Pneumonia, sepsis History of Present Illness: 46-year-old female with history of anoxic brain injury who is trach dependent with PEG tube in place presents emergency department for dyspnea. longterm staff suctioned patient's trach prior to EMS arrival which did improve her symptoms. Of note patient was discharged on 12/02/2022 with PICC line in place on antibiotics including a total of 6 weeks of IV ceftazidime and p.o. doxycycline which long-term staff reports that she has been receiving. She had multidrug-resistant organisms in her sputum, wounds at that time. In the ER she did have low-grade fever, SIRS criteria were present including tachycardia, leukocytosis. Her lactic acid is 1.5 she has been normotensive at this time urinalysis showed 20-50 white blood cell, 500 leuk esterase, nitrate negative urine. Urine culture was sent patient does have chronic indwelling Randolph catheter in place. She also has 3 sacral wounds present on admission. Chest x- ray showed suspected left-sided pneumonia, follow-up CT chest without contrast was performed which revealed airspace consolidation in the left upper lobe, and left lower lobe with central air bronchograms consistent with pneumonia. Small bilateral pleural effusions. ED provider wishes to admit for further evaluation and management of pneumoniafailed outpatient management. Allergies sulfate ion Allergy (Unknown, Verified 06/25/22 18:34) unknown albuterol Adverse Reaction (Unknown, Verified 06/25/22 18:34) elevated hr Home Medications: Baclofen 5 mg PO TID 04/22/22 Gabapentin [Neurontin*] 300 mg PO TID 04/22/22 Polyethylene Glycol 3350 [Miralax] 17 gm PO DAILY 04/22/22 cloNIDine HCL [Clonidine HCl] 0.1 mg PO TID 04/22/22 Ipratropium Neb [Atrovent*] 0.5 mg NEB [id number] amp 04/25/22 Sertraline [Zoloft*] 100 mg PO BEDTIME 04/29/22 Acetaminophen [Tylenol] 650 mg FT Q6H PRN 06/25/22 Acetylcyst 20% Resp [Mucomyst 20% (FOR RESPIRATORY)*] 3 ml IH TID 06/25/22 Carboxymethylcellulose Sodium [Artificial Tears] 15 ml OP QID PRN 06/25/22 Jevity 1.2 Danie Liquid 55 ml FT CONT 06/25/22 clonazePAM [Klonopin] 1 tab PO BID 06/25/22 Aspirin Chewable [Aspirin Chewable*] 81 mg PO DAILY 07/11/22 Atorvastatin Calcium [Lipitor*] 20 mg PO BEDTIME 07/11/22 Metoprolol Tartrate [Lopressor*] 25 mg PO BID 07/11/22 Rivaroxaban [Xarelto*] 10 mg PO BEDTIME 07/11/22 Collagenase [Santyl Ointment*] 1 appl TOP DAILY tube 07/14/22 Nahun [Nahun*] 1 pkt FT BID 07/14/22 Acetaminophen [Tylenol*] 650 mg AK Q6H PRN supp 12/01/22 Ceftazidime [Fortaz*] 1 gm IVPB Q8H 35 Days ml 12/01/22 Doxycycline Hyclate 100 mg PO BID 35 Days cap 12/01/22 Medihoney [Medihoney Woundcare Gel*] 1 appl TOP DAILY tube 12/01/22 - Past Medical/Surgical History Diabetic: No -: Anoxic Brain Injury, secondary to substance overdose/fentanyl -: Paroxysmal sympathetic hyperactivity -: h/o MRSA -: Tracheostomy dependent -: bilat pontine stroke -: peg tube -: Hysterectomy -: G Tube -: Tracheostomy Psychosocial/ Personal History: Patient lives at [facility]. She has a daughter. - Family History Father Notes: unable to assess r/t pt condition Mother -: Hypertension, Lung disease, Stroke, Cancer Notes: breast ca - Social History Alcohol use: No CD- Drugs: No Caffeine use: No Place of Residence: [facility] Review of Systems is unable to be obtained Physical Examination - Physical Exam General: Cachectic, Other (Unkempt, blinks, does not track with her eyes) HEENT: Normocephalic Neck: Supple Respiratory: Diminished Cardiovascular: No edema Capillary refill: <2 Seconds Gastrointestinal: Normal bowel sounds, Other (G-tube in place) Musculoskeletal: No swelling Integumentary: Pressure ulcer (Sacral decubitus ulcerations present) Neurological: Other (Not verbally responsive, quadriplegia) Urinary: Randolph catheter (Chronic indwelling Randolph) - Studies Laboratory Data (last 24 hrs) 01/04/23 04:16: PT 11.7, INR 1.06, APTT 29.3 01/04/23 03:15: Sodium 138, Potassium 3.9, BUN 16, Creatinine 0.45 L, Glucose 161 H, Total Bilirubin 0.2, AST 42 H, ALT 48, Alkaline Phosphatase 122 H 01/04/23 03:15: WBC 12.50 H, Hgb 10.4 L, Hct 32.5 L, Plt Count 304 Assessment and Plan - Plan Assessment: Sepsis secondary to left-sided pneumoniafailed outpatient management with history of MDR organisms Sacral decubitus ulcerations Quadriplegia secondary to anoxic brain injury from overdose-trach/PEG dependent Paroxysmal sympathetic hyperactivity Plan: Sepsis secondary to left-sided pneumoniafailed outpatient management with history of MDR organisms Patient has been on ceftazidime IV, p.o. doxycycline since she was discharged from the hospital, began running low-grade fevers the past day with increasing work of breathing. SIRS criteria present including leukocytosis, tachycardia. Blood cultures obtained prior to antibiotic administration. Urine culture obtained as well, will obtain sputum/wound cultures. Infectious disease consulted, patient with history of multiple MDR organisms in sputum, wounds. Sacral decubitus ulcerations Wound healing, ID consulted. Quadriplegia secondary to anoxic brain injury from overdose-trach/PEG dependent At baseline Paroxysmal sympathetic hyperactivity Continue home medications once verified. DVT PPX: Lovenox Code status:full Discharge Plan: Home Plan to discharge in: Greater than 2 days - Advance Directives Does patient have a Living Will: No Does patient have a Durable POA for Healthcare: No - Code Status/Comfort Care Code Status Assessed: Yes (Full code) Critical Care: No Time Spent Managing Pts Care (In Minutes): 70
[2023-01-04] MEDS ORDERED: CEFTAZIDIME 1 GM VIAL ONE (05:55)
[2023-01-04] MEDS ORDERED: NA CHLORIDE 0.9% 100 ML ONE ×2 (05:55→11:22)
[2023-01-04] MEDS ORDERED: ONDANSETRON 4 MG/2 ML VIAL IV PRN (06:50)
[2023-01-04] MEDS ORDERED: VANCOMYCIN 1 GM in NA CHLORIDE 0.9% 250 ML IVPB SCH ×2 (08:00→09:00)
--- NOTE | 2023-01-04 08:11 | EKG ---
Test Date: 2023-01-04 Test Time: 03:34:28 Supervisor Wrapping Room: HUGO MEASUREMENT RESULTS: Intervals: Rate: 109 AL: 142 QRSD: 72 QT: 306 QTc: 412 [place]: P: 62 AL: 142 QRS: 53 T: 75 INTERPRETIVE STATEMENTS: Sinus tachycardia Otherwise normal ECG Compared to ECG 07/11/2022 10:59:14 Fusion complex(es) no longer present Indeterminate axis no longer present Myocardial infarct finding no longer present Electronically Signed On 01-04-23 08:10:44 CDT by Kris Coronado
[2023-01-04] MEDS ORDERED: Ringers Lactate 1,000 ML IV ONE ×2 (08:25→17:22)
[2023-01-04] MEDS: Ringers Lactate 1,000 ML IV SCH ×3 (08:29→22:16)
[2023-01-04] MEDS ORDERED: VANCOMYCIN 1.5 GM in NA CHLORIDE 0.9% 500 ML IVPB ONE (08:30)
[2023-01-04 08:40] VITALS: BMI 16.8
[2023-01-04] MEDS: ENOXAPARIN 40 MG/0.4 ML SQ SCH (09:00)
--- NOTE | 2023-01-04 09:47 | P.CNS ---
Chief Complaint: Pneumonia, sepsis History of Present Illness: Patient is a 47 yo female with a history of anoxic brain injury who is trach dependent and PEG tube dependent. Patient was recently discharged from hospital to halfway on 12/02 with IV ceftazidime via PICC line and PO doxycycline. Culture results from previous admission: 11/23/2022 urine culture with MRSA and pseudomonas aeruginosa. Wound buttock culture with p. aeruginosa; Wound left hip with p. aeruginosa and Acinetobacter marco. 11/26/2022 suputum culture with klebsiella oxytoca and p. aeruginosa. Allergies sulfate ion Allergy (Unknown, Verified 06/25/22 18:34) unknown albuterol Adverse Reaction (Unknown, Verified 06/25/22 18:34) elevated hr Home Medications: Baclofen 5 mg PO TID 04/22/22 Gabapentin [Neurontin*] 300 mg PO TID 04/22/22 Polyethylene Glycol 3350 [Miralax] 17 gm PO DAILY 04/22/22 cloNIDine HCL [Clonidine HCl] 0.1 mg PO TID 04/22/22 Ipratropium Neb [Atrovent*] 0.5 mg NEB [id number] amp 04/25/22 Sertraline [Zoloft*] 100 mg PO BEDTIME 04/29/22 Acetaminophen [Tylenol] 650 mg FT Q6H PRN 06/25/22 Acetylcyst 20% Resp [Mucomyst 20% (FOR RESPIRATORY)*] 3 ml IH TID 06/25/22 Carboxymethylcellulose Sodium [Artificial Tears] 15 ml OP QID PRN 06/25/22 Jevity 1.2 Danie Liquid 55 ml FT CONT 06/25/22 clonazePAM [Klonopin] 1 tab PO BID 06/25/22 Aspirin Chewable [Aspirin Chewable*] 81 mg PO DAILY 07/11/22 Atorvastatin Calcium [Lipitor*] 20 mg PO BEDTIME 07/11/22 Metoprolol Tartrate [Lopressor*] 25 mg PO BID 07/11/22 Rivaroxaban [Xarelto*] 10 mg PO BEDTIME 07/11/22 Collagenase [Santyl Ointment*] 1 appl TOP DAILY tube 07/14/22 Nahun [Nahun*] 1 pkt FT BID 07/14/22 Acetaminophen [Tylenol*] 650 mg AK Q6H PRN supp 12/01/22 Ceftazidime [Fortaz*] 1 gm IVPB Q8H 35 Days ml 12/01/22 Doxycycline Hyclate 100 mg PO BID 35 Days cap 12/01/22 Medihoney [Medihoney Woundcare Gel*] 1 appl TOP DAILY tube 12/01/22 - Past Medical/Surgical History Diabetic: No -: Anoxic Brain Injury, secondary to substance overdose/fentanyl -: Paroxysmal sympathetic hyperactivity -: h/o MRSA -: Tracheostomy dependent -: bilat pontine stroke -: peg tube -: Hysterectomy -: G Tube -: Tracheostomy Psychosocial/ Personal History: Patient lives at [facility]. She has a daughter. - Family History Father Notes: unable to assess r/t pt condition Mother Medical History: Hypertension, Lung disease, Stroke, Cancer Notes: breast ca - Social History Smoking Status: Unknown if ever smoked Alcohol use: No CD- Drugs: No Caffeine use: No Place of Residence: [facility] Physical Examination Temp Pulse Resp BP Pulse Ox 100.4 F 110 H 16 99/72 95 01/04/23 08:00 01/04/23 08:00 01/04/23 08:00 01/04/23 08:00 01/04/23 08:00 Laboratory Data (last 24 hrs) 01/04/23 04:16: PT 11.7, INR 1.06, APTT 29.3 01/04/23 03:15: Sodium 138, Potassium 3.9, BUN 16, Creatinine 0.45 L, Glucose 161 H, Total Bilirubin 0.2, AST 42 H, ALT 48, Alkaline Phosphatase 122 H 01/04/23 03:15: WBC 12.50 H, Hgb 10.4 L, Hct 32.5 L, Plt Count 304
[2023-01-04] MEDS ORDERED: ENOXAPARIN 40 MG/0.4 ML SQ ONE (11:22)
[2023-01-04] MEDS ORDERED: Meropenem 1000 MG/VIAL IV ONE (11:22)
[2023-01-04] MEDS: Meropenem 1,000 MG in NA CHLORIDE 0.9% 100 ML IV SCH ×2 (11:30→17:00)
--- NOTE | 2023-01-04 12:03 | RAD REPORT ---
EXAM DESCRIPTION: CT - Thorax Wo [employer] - 01/04/2023 6:49 am CLINICAL HISTORY: Abn CXR, eval for pneumonia TECHNIQUE: Contiguous axial images obtained through the chest without IV contrast. Coronal and sagit amaris reformatted images provided. This exam was performed according to our departmental dose-optimization program, which includes autom ated exposure control, adjustment of the mA and/or kV according to patient size and/or use of iterati ve reconstruction technique. COMPARISON: Correlation is made with prior plain film radiographs. FINDINGS: Lungs: Airspace consolidation in the left upper lobe, and left lower lobe, with central ai r bronchograms, consistent with pneumonia. Pleura: Small bilateral pleural effusions. No pneumothorax. Heart and pericardium: The heart is normal in size. No pericardial effusion. Mediastinum and alexis: No pathologically enlarged lymph nodes. Mild mediastinal shift to the left consistent with left hemithorax volume loss. Tracheostomy cannula in place. Right-sided PICC line in the SVC. Lower neck and chest wall: Unremarkable Vessels: Unremarkable Upper abdomen: Unremarkable Bones: Unremarkable IMPRESSION: Airspace consolidation in the left upper lobe, and left lower lobe, with central air bro nchograms, consistent with pneumonia. Small bilateral pleural effusions. Electronically signed by: Curtis Howell MD 01/04/2023 5:14 AM CDT Due to temporary technical issues with the PACS/Fluency reporting system, reports are being signed by the in house radiologist without review as a courtesy to ensure prompt reporting. The interpreting r adiologist is fully responsible for the content of the report.
--- NOTE | 2023-01-04 12:14 | CON ---
History Of Present Illness: The patient was brought in because of fevers. We have been consulted fo r leukocytosis and fevers in this patient. The patient is unable to give history. Most of the histo ry was obtained through medical records and staff. The patient was recently discharged to [facility] where she was getting antibiotic. Past Medical History: Anoxic brain injury, paroxysmal sympathetic hyperactivity, history of Pseudomo opal and MRSA infection, tracheostomy dependent, bilateral pontine stroke, PEG tube placement, hystere ctomy, G-tube, tracheostomy. Social History: group home resident. Nonsmoker, nondrinker. Family History: Noncontributory. Medications: Vancomycin and meropenem. See MAR for other medications. Allergies: SULFA DRUGS AND ALBUTEROL. Review of Systems: Unable to obtain. Physical Examination: General: This is a 47-year-old female, lying in bed. Vital Signs: Temperature 100.4, pulse 110, respirations 16, blood pressure 99/72. HEENT: Unremarkable. Neck: Supple. Lungs: Basal crackles. Heart: S1, S2. Regular. Abdomen: Soft. Bowel sounds present. Extremity: No edema. Muscle wasting noted. Hip and sacral wound noted. Laboratory Data: Shows WBC 12.5, hemoglobin 10.4, platelets are 304. Chemistry shows BUN of 16, cre atinine 0.4, albumin is 2.4. Urinalysis shows WBC 20-50. Micro data; cultures are pending. Previou s culture shows from sputum Klebsiella oxytoca and Pseudomonas aeruginosa. Left hip wound showed Pse udomonas aeruginosa and Acinetobacter. Buttock wound showed Pseudomonas aeruginosa and urine from [facility] shows MRSA and Pseudomonas. Chest x-ray and CT report are pending. X-ray done on admission shows possible left lower lobe infiltrate, but because of poor review, it is unable to determine. CT scan report is pending. Assessment And Plan: A 47-year-old female with anoxic brain injury, coming in with low-grade fevers, currently being treated with vancomycin and meropenem. We will recommend to continue current treatm ent and use Medihoney and Alginate to the wounds. Continue pulmonary hygiene. Pending culture resul ts. We will continue current treatment and follow the patient closely. Thank you for consult. NF/MICHAELLE Voice ID: [id number] Report ID: [id number]
--- NOTE | 2023-01-04 12:16 | RAD REPORT ---
EXAM DESCRIPTION: RAD - Chest Single View - 01/04/2023 3:26 am CLINICAL HISTORY: CHEST PAIN TECHNIQUE: AP chest COMPARISON: June 16, 2022 FINDINGS: CHEST: Tracheostomy cannula in expected position. There is a right-sided PICC line with the distal tip in the SVC. No evidence of pneumothorax. Cardiac silhouette is not enlarged. Confluent airspace disease in the left midlung and left lung base, most consistent with pneumonia. Left pleural effusion cannot be excluded. IMPRESSION: Confluent airspace disease in the left midlung and left lung base, most consistent with pneumonia. Left pleural effusion cannot be excluded. Follow-up PA and lateral radiographs would be he lpful in further evaluation. Electronically signed by: Curtis Howell MD 01/04/2023 3:38 AM CDT Due to temporary technical issues with the PACS/Fluency reporting system, reports are being signed by the in house radiologist without review as a courtesy to ensure prompt reporting. The interpreting r adiologist is fully responsible for the content of the report.
[2023-01-04] MEDS: ACETAMINOPHEN 650MG/RECT SUPP PR PRN (13:20)
[2023-01-04] MEDS: VANCOMYCIN 1 GM in NA CHLORIDE 0.9% 250 ML IVPB SCH (22:17)
[2023-01-05] MEDS: Meropenem 1,000 MG in NA CHLORIDE 0.9% 100 ML IV SCH ×3 (00:39→17:00)
[2023-01-05 03:18] LABS: Absolute Lymphocytes (CBC) 0.9 K/uL (0.7-4.9); Hematocrit 25.2 % (36.0-45.0); MCV 80.1 fL (80-100); MPV 7.6 fL (7.6-11.3); RBC Red Blood Cell Count 3.14 M/uL (3.86-4.86)
[2023-01-05 03:55] LABS: Bilirubin Total 0.4 mg/dL (0.2-1.0); Potassium 3.1 mEq/L (3.5-5.1); Protein, Total 6.4 g/dL (6.4-8.2)
[2023-01-05] MEDS ORDERED: FLUCONAZOLE 200mg IVPB 200 MG/100 ML BAG IV SCH (08:00)
[2023-01-05] MEDS: Ringers Lactate 1,000 ML IV SCH ×2 (09:12→22:52)
[2023-01-05] MEDS: VANCOMYCIN 1 GM in NA CHLORIDE 0.9% 250 ML IVPB SCH ×2 (09:13→21:02)
[2023-01-05] MEDS: ENOXAPARIN 40 MG/0.4 ML SQ SCH (09:14)
[2023-01-05] MEDS: JEVITY 1.2 CAL LIQUID 1,000 ML BOT FT SCH ×3 (09:21→17:00)
--- NOTE | 2023-01-05 13:00 | P.CNS ---
Date of Consult: 01/05/23 Reason for Consult: Pneumonia Chief Complaint: Pneumonia, sepsis History of Present Illness: Patient is 47 years of age recurrent hospital admission he has history of anoxic encephalopathy presented to the hospital with low-grade fever was found to have left lung pneumonia he also has multiple decubitus ulcers seen by ID not appear to be any distress patient is nonverbal Allergies adhesive Allergy (Severe, Verified 01/04/23 18:55) Hives sulfate ion Allergy (Unknown, Verified 06/25/22 18:34) unknown albuterol Adverse Reaction (Unknown, Verified 06/25/22 18:34) elevated hr Home Medications: Gabapentin [Neurontin*] 300 mg FT TID 04/22/22 Polyethylene Glycol 3350 [Miralax] 17 gm FT DAILY 04/22/22 cloNIDine HCL [Clonidine HCl] 0.1 mg PO Q8HP PRN 04/22/22 Ipratropium Neb [Atrovent*] 0.5 mg NEB [id number] amp 04/25/22 Sertraline [Zoloft*] 100 mg FT BEDTIME 04/29/22 Acetaminophen [Tylenol] 650 mg FT Q4HP PRN 06/25/22 Acetylcyst 20% Resp [Mucomyst 20% (FOR RESPIRATORY)*] 10 ml IH TID 06/25/22 Carboxymethylcellulose Sodium [Artificial Tears] 1 gtt EACH EYE Q6HP PRN 06/25/22 clonazePAM [Klonopin] 1 tab FT TID 06/25/22 Aspirin Chewable [Aspirin Chewable*] 81 mg FT DAILY 07/11/22 Atorvastatin Calcium [Lipitor*] 20 mg FT BEDTIME 07/11/22 Metoprolol Tartrate [Lopressor*] 25 mg PO BID 07/11/22 Rivaroxaban [Xarelto*] 10 mg FT BEDTIME 07/11/22 Ceftazidime [Fortaz*] 1 gm IVPB Q8H 35 Days ml 12/01/22 Acetaminophen with Codeine [Tylenol with Codeine Solution] 15 ml FT Q6HP PRN 01/04/23 Arginine 1 packet FT BID 01/04/23 Ascorbic Acid [Vitamin C] 500 mg FT BID 01/04/23 Baclofen 10 mg FT TID 01/04/23 0.9 % Sodium Chloride [Saline Flush] 10 ml IV QSHIFT 01/05/23 Acetaminophen [Tylenol*] 650 mg MT Q6H PRN 01/05/23 Clotrim/Betameth Cream [Lotrisone Cream] 1 appl TOP BID 01/05/23 Doxycycline Hyclate 100 mg FT BID 01/05/23 Ferrous Sulfate [Ferrous Sulfate Elixir] 5 ml FT DAILY 01/05/23 Jevity 1.2 Danie Liquid 360 ml FT QID 01/05/23 Medihoney [Medihoney Woundcare Gel*] 1 appl TOP BEDTIME 01/05/23 Scopolamine [Transderm-Scop] 1 each TD Q72H 01/05/23 Sodium Hypochlorite [Dakin's] 1 appl TOP BEDTIME 01/05/23 Zinc Sulfate [Zinc Sulfate*] 1 cap FT DAILY 01/05/23 - Past Medical/Surgical History Diabetic: No -: Anoxic Brain Injury, secondary to substance overdose/fentanyl -: Paroxysmal sympathetic hyperactivity -: h/o MRSA -: Tracheostomy dependent -: bilat pontine stroke -: peg tube -: Hysterectomy -: G Tube -: Tracheostomy Psychosocial/ Personal History: Patient lives at [facility]. She has a daughter. - Family History Father Notes: unable to assess r/t pt condition Mother Medical History: Hypertension, Lung disease, Stroke, Cancer Notes: breast ca - Social History Smoking Status: Unknown if ever smoked Alcohol use: No CD- Drugs: No Caffeine use: No Place of Residence: [facility] Review of Systems is unable to be obtained Physical Examination Temp Pulse Resp BP Pulse Ox 98.8 F 107 H 22 H 100/64 94 01/05/23 12:00 01/05/23 12:00 01/05/23 12:00 01/05/23 12:00 01/05/23 12:00 General: Alert Respiratory: Clear to auscultation bilaterally, Diminished Cardiovascular: No edema, Normal S1 S2 - Problems (1) Pneumonia Current Visit: Yes Status: Acute Plan: Patient is 47 years of age recurrent hospital admissions he now has a left lung pneumonia previously discharged with IV antibiotics at the intermediate came back again multiple decubitus ulcers darted on meropenem vancomycin White count is declining vital signs are stable oxygenation satisfactory cultures pending
--- NOTE | 2023-01-05 15:29 | P.PN ---
Subjective Date of Service: 01/05/23 Chief Complaint: Pneumonia, sepsis No acute events overnight per RN. She is nonverbal at baseline. She appears comfortable this morning on her home oxygen requirements. Review of Systems is unable to be obtained Physical Examination - Vital Signs Temperature: 98.8 F Blood Pressure: 100/64 Pulse: 107 Respirations: 22 Pulse Ox (%): 94 - Physical Exam General: In no apparent distress HEENT: Mucous membr. moist/pink, Other (S/P tracheostomy), Sclerae nonicteric Neck: JVD not distended Respiratory: Diminished, Rhonchi/gurgles Cardiovascular: No edema, Regular rate/rhythm, Normal S1 S2, No murmurs Gastrointestinal: Normal bowel sounds, Soft and benign, Non-distended, No tenderness, Other (PEG tube) Musculoskeletal: No clubbing Integumentary: No rashes, Pressure ulcer (multiple - sacral, left hip, right buttock, right ankle - examined alongside bedside RNSabina) Neurological: Other Assessment And Plan - Plan # Sepsis likely secondary to Community-Acquired Pneumonia and Fungal Urinary Tract Infection # Multiple Pressure Ulcers [(1) Sacrum - Unstageable, (2) Left Hip - Unstageable, (3) Right Buttock - Unstageable, (4) Right Ankle - Stage I) # History of MRSA, Pseudomonas Aeruginosa, Klebsiella Oxytoca, Pseudomonas Cepacia, Acinetobacter, Enterobacter Cloacae, and Stenotrphoomonas Maltophilia Infections # History of Opioid Overdose complicated by Anoxic Brain Injury now Trach/PEG- dependent # Paroxysmal Sympathetic Hyperactivity secondary to Anoxic Brain Injury She met sepsis criteria based on temperature > 100.4 F, HR > 90 bpm, RR > 20 breaths/min, and WBC > 12,000, and the suspected source is pneumonia and urinary. - Evaluation thus far: - Chest x-ray = "confluent airspace disease in the left midlung and left lung base, most consistent with pneumonia. Left pleural effusion cannot be excluded." - CT chest = "airspace consolidation in the left upper lobe, and left lower lobe, with central air bronchograms, consistent with pneumonia. Small bilateral pleural effusions." - Sacral culture = Gram-positive cocci in pairs + chains - Left hip culture = 3+ WBCs, 1+ yeast - Right buttock culture = 1+ WBCs - Urinalysis = 500 leukocyte esterase, >50 RBCs, 20-50 WBCs, many yeast, trace protein - Urine culture = 4+ yeast, Not Narda Albicans - Consulted Infectious Diseases and Pulmonology - recommendations appreciated - Sepsis order set was initiated - Initial Lactate was 1.5 - Blood cultures drawn before antibiotics were given - Broad spectrum antibiotics started: Vancomycin + Meropenem + Micafungin - In regards to fluids: - 30 mL/kg of IV fluids was not administered given SBP > 90, MAP > 65, lactic acid < 4 I have tried to contact her daughter, Ms. Spaulding, without success. I will be happy to update her if she calls back. Shelton Roland M.D.
[2023-01-05] MEDS ORDERED: NA CHLORIDE 0.9% IV SCH (16:00)
[2023-01-05] MEDS ORDERED: MICAFUNGIN SODIUM IV SCH (16:00)
[2023-01-05] MEDS ORDERED: MICAFUNGIN SODIUM 100 MG VIAL IV SCH (16:00)
[2023-01-05 18:30] LABS: Magnesium 1.4 mg/dL (1.6-2.4); Potassium 3.1 mEq/L (3.5-5.1)
[2023-01-05] MEDS ORDERED: MAGNESIUM 50% 3 GM in NA CHLORIDE 0.9% 100 ML IV ONE (18:45)
[2023-01-05] MEDS ORDERED: POTASSIUM PHOS 20 MM in NA CHLORIDE 0.9% 500 ML IV ONE (19:00)
[2023-01-05] MEDS ORDERED: MICAFUNGIN SODIUM 100 MG VIAL IV ONE (22:00)
[2023-01-05] MEDS: MICAFUNGIN SODIUM 100 MG in NA CHLORIDE 0.9% 100 ML IV SCH (23:23)
[2023-01-06] MEDS: Meropenem 1,000 MG in NA CHLORIDE 0.9% 100 ML IV SCH ×3 (00:22→17:00)
[2023-01-06] MEDS: JEVITY 1.2 CAL LIQUID 1,000 ML BOT FT SCH ×5 (01:00→21:00)
[2023-01-06 03:30] LABS: Absolute Lymphocytes (CBC) 0.9 K/uL (0.7-4.9); Hematocrit 25.1 % (36.0-45.0); Lymphocytes % 18.6 % (15.3-44.8); MCV 80.8 fL (80-100); MPV 7.5 fL (7.6-11.3); RBC Red Blood Cell Count 3.11 M/uL (3.86-4.86)
[2023-01-06 03:57] LABS: Bilirubin Total 0.3 mg/dL (0.2-1.0); Potassium 2.8 mEq/L (3.5-5.1); Protein, Total 6.5 g/dL (6.4-8.2)
[2023-01-06 05:06] LABS: Magnesium 2.2 mg/dL (1.6-2.4); Phosphorus 3.7 mg/dL (2.5-4.9)
[2023-01-06] MEDS: KCL 20 MEQ/100 mL IVPB 20 MEQ/100 ML BAG IV SCH ×4 (05:06→21:14)
[2023-01-06] MEDS: ENOXAPARIN 40 MG/0.4 ML SQ SCH (10:22)
[2023-01-06] MEDS: VANCOMYCIN 1 GM in NA CHLORIDE 0.9% 250 ML IVPB SCH ×2 (10:22→21:15)
[2023-01-06] MEDS: Ringers Lactate 1,000 ML IV SCH ×2 (10:26→21:15)
--- NOTE | 2023-01-06 19:43 | P.PN ---
Subjective Date of Service: 01/06/23 Chief Complaint: Pneumonia, sepsis Overnight, one of her blood cultures returned positive for yeast. Micafungin dose was increased to 100 mg daily. No other events overnight per RN. She is nonverbal at baseline. No further history available at this time. Review of Systems is unable to be obtained Physical Examination - Vital Signs Temperature: 98.1 F Blood Pressure: 115/69 Pulse: 91 Respirations: 19 Pulse Ox (%): 98 - Studies Microbiology Data (last 24 hrs): 01/04/23 03:29 Catheterized Urine [place] Count - Final >100,000 CFU/ML. 01/04/23 03:29 Catheterized Urine - Final Assessment And Plan - Plan - Physical Exam General: In no apparent distress HEENT: Other (S/P tracheostomy), Sclerae nonicteric Neck: JVD not distended Respiratory: Diminished, Rhonchi/gurgles Cardiovascular: No edema, Regular rate/rhythm, No murmurs Gastrointestinal: Soft, Non-distended, No tenderness, Other (PEG tube) Musculoskeletal: No clubbing Integumentary: No rashes, Pressure ulcer (multiple - sacral, left hip, right buttock, right ankle - examined alongside bedside RNSabina) Neurological: Other # Sepsis likely secondary to Community-Acquired Pneumonia and Fungal Urinary Tract Infection with Fungemia # Multiple Pressure Ulcers [(1) Sacrum - Unstageable, (2) Left Hip - Unstageable, (3) Right Buttock - Unstageable, (4) Right Ankle - Stage I) # History of MRSA, Pseudomonas Aeruginosa, Klebsiella Oxytoca, Pseudomonas Cepacia, Acinetobacter, Enterobacter Cloacae, and Stenotrphoomonas Maltophilia Infections # History of Opioid Overdose complicated by Anoxic Brain Injury now Trach/PEG- dependent # Paroxysmal Sympathetic Hyperactivity secondary to Anoxic Brain Injury She met sepsis criteria based on temperature > 100.4 F, HR > 90 bpm, RR > 20 breaths/min, and WBC > 12,000, and the suspected source is pneumonia and urinary. - Evaluation thus far: - Chest x-ray = "confluent airspace disease in the left midlung and left lung base, most consistent with pneumonia. Left pleural effusion cannot be excluded." - CT chest = "airspace consolidation in the left upper lobe, and left lower lobe, with central air bronchograms, consistent with pneumonia. Small bilateral pleural effusions." - Sacral culture = 2+ coagulase positive Staphylococcus - Left hip culture = 3+ WBCs, 1+ yeast - Right buttock culture = 1+ WBCs - Urinalysis = 500 leukocyte esterase, >50 RBCs, 20-50 WBCs, many yeast, trace protein - Urine culture = 4+ yeast, Not Narda Albicans - Consulted Infectious Diseases and Pulmonology - recommendations appreciated - Sepsis order set was initiated - Initial Lactate was 1.5 - Blood cultures drawn before antibiotics were given - positive for yeast - Broad spectrum antibiotics started: Vancomycin + Meropenem + Micafungin - In regards to fluids: - 30 mL/kg of IV fluids was not administered given SBP > 90, MAP > 65, lactic acid < 4 - Will require ophthalmolgic exam given fungemia - Unable to speak with her daughter, Ms. Spaulding, today. - Her prognosis is poor. Plan on [id number] discussion, once daughter is available. Shelton Roland M.D.
[2023-01-06] MEDS ORDERED: MICAFUNGIN SODIUM 100 MG in NA CHLORIDE 0.9% 100 ML IV SCH (21:00)
[2023-01-06] MEDS: MICAFUNGIN SODIUM 100 MG in NA CHLORIDE 0.9% 100 ML IV SCH (21:14)
[2023-01-07] MEDS: Meropenem 1,000 MG in NA CHLORIDE 0.9% 100 ML IV SCH ×2 (00:51→09:45)
[2023-01-07] MEDS: KCL 20 MEQ/100 mL IVPB 20 MEQ/100 ML BAG IV SCH (00:51)
[2023-01-07 05:37] LABS: Absolute Lymphocytes (CBC) 1.1 K/uL (0.7-4.9); Hematocrit 23.8 % (36.0-45.0); Lymphocytes % 23.3 % (15.3-44.8); MCV 81.5 fL (80-100); MPV 7.5 fL (7.6-11.3); RBC Red Blood Cell Count 2.92 M/uL (3.86-4.86)
[2023-01-07 05:47] LABS: Albumin 1.8 g/dL (3.4-5.0); Bilirubin Total 0.1 mg/dL (0.2-1.0); Magnesium 1.6 mg/dL (1.6-2.4); Phosphorus 2.3 mg/dL (2.5-4.9); Potassium 3.5 mEq/L (3.5-5.1); Protein, Total 5.9 g/dL (6.4-8.2)
[2023-01-07] MEDS ORDERED: KCL 20 MEQ/100 mL IVPB 20 MEQ/100 ML BAG IV SCH (07:00)
[2023-01-07] MEDS ORDERED: MAGNESIUM SULFATE 1 gm IVPB 1 GM/100 ML BAG IV ONE (08:00)
[2023-01-07] MEDS: Ringers Lactate 1,000 ML IV SCH ×2 (09:42→21:13)
[2023-01-07] MEDS: ENOXAPARIN 40 MG/0.4 ML SQ SCH (09:47)
[2023-01-07] MEDS: POTASS/SODIUM PHOSPHATE 1 PKT POWD.PACK PO SCH ×4 (09:47→21:13)
[2023-01-07] MEDS: JEVITY 1.2 CAL LIQUID 1,000 ML BOT FT SCH ×4 (09:48→21:00)
[2023-01-07] MEDS: VANCOMYCIN 1 GM in NA CHLORIDE 0.9% 250 ML IVPB SCH ×2 (11:26→21:13)
[2023-01-07] MEDS ORDERED: VABORBACTAM IV SCH (17:00)
[2023-01-07] MEDS ORDERED: NA CHLORIDE 0.9% IV SCH (17:00)
[2023-01-07] MEDS ORDERED: MEROPENEM IV SCH (17:00)
--- NOTE | 2023-01-07 17:05 | P.PN ---
Subjective Date of Service: 01/07/23 Chief Complaint: Pneumonia, sepsis Overnight, her sacral wound culture has returned positive for MRSA. Her sputum cultures have returned positive for ESBL and Pseudomonas Aeruginosa. No other events overnight per RN. I had an extensive discussion with her daughter, Ms. Spaulding, regarding her prognosis and current clinical condition. We discussed the topic of continued aggressive medical management versus transitioning to comfort care/hospice services. She states that she may be interested in hospice services as this may be what her mother would have wanted. She would like to discuss it further with her family prior to making any decisions. Review of Systems is unable to be obtained Physical Examination - Vital Signs Temperature: 97.4 F Blood Pressure: 118/76 Pulse: 78 Respirations: 22 Pulse Ox (%): 98 Assessment And Plan - Plan - Physical Exam General: In no apparent distress HEENT: Other (S/P tracheostomy), Sclerae nonicteric Neck: JVD not distended Respiratory: Diminished, Rhonchi/gurgles Cardiovascular: No edema, Regular rate/rhythm, No murmurs Gastrointestinal: Soft, Non-distended, No tenderness, Other (PEG tube) Musculoskeletal: No clubbing Integumentary: No rashes, Pressure ulcer (multiple - sacral, left hip, right buttock, right ankle - examined alongside bedside RN) Neurological: Other # Sepsis likely secondary to MRSA-Infected Sacral Wound, ESBL Escherichia Coli /Multi-Drug Resistant Pseudomonas Aeruginosa Pneumonia, and Fungal Urinary Tract Infection with Fungemia # Multiple Pressure Ulcers [(1) Sacrum - Unstageable, (2) Left Hip - Unstageable, (3) Right Buttock - Unstageable, (4) Right Ankle - Stage I) # History of MRSA, Pseudomonas Aeruginosa, Klebsiella Oxytoca, Pseudomonas Cepacia, Acinetobacter, Enterobacter Cloacae, and Stenotrphoomonas Maltophilia Infections # History of Opioid Overdose complicated by Anoxic Brain Injury now Trach/PEG- dependent # Paroxysmal Sympathetic Hyperactivity secondary to Anoxic Brain Injury She met sepsis criteria based on temperature > 100.4 F, HR > 90 bpm, RR > 20 breaths/min, and WBC > 12,000, and the suspected source is pneumonia and urinary. - Evaluation thus far: - Chest x-ray = "confluent airspace disease in the left midlung and left lung base, most consistent with pneumonia. Left pleural effusion cannot be excluded." - CT chest = "airspace consolidation in the left upper lobe, and left lower lobe, with central air bronchograms, consistent with pneumonia. Small bilateral pleural effusions." - Sacral culture = MRSA - Left hip culture = 3+ WBCs, 1+ yeast - Right buttock culture = 1+ WBCs - Urinalysis = 500 leukocyte esterase, >50 RBCs, 20-50 WBCs, many yeast, trace protein - Urine culture = 4+ yeast, Not Narda Albicans - Consulted Infectious Diseases and Pulmonology - recommendations appreciated - Sepsis order set was initiated - Initial Lactate was 1.5 - Blood cultures drawn before antibiotics were given - positive for yeast - Broad spectrum antibiotics started: Vancomycin + Meropenem-Vaborbactam + Micafungin - In regards to fluids: - 30 mL/kg of IV fluids was not administered given SBP > 90, MAP > 65, lactic acid < 4 - Will require ophthalmolgic exam given fungemia - Spoke with her daughter, Ms. Spaulding, today. We reviewed her hospital course and [id number]. She believes that Ms. Villalobos may have wanted hospice services. She would like to discuss this with her family prior to making any decisions. Will follow-up with her tomorrow. Shelton Roland M.D.
[2023-01-07] MEDS: MEROPENEM/VABORBACTAM 4 GM in NA CHLORIDE 0.9% 250 ML IV SCH (17:14)
[2023-01-07] MEDS: MICAFUNGIN SODIUM 100 MG in NA CHLORIDE 0.9% 100 ML IV SCH (21:12)
[2023-01-08] MEDS: Ringers Lactate 1,000 ML IV SCH ×3 (00:50→21:00)
[2023-01-08] MEDS: MEROPENEM/VABORBACTAM 4 GM in NA CHLORIDE 0.9% 250 ML IV SCH ×3 (00:55→18:29)
[2023-01-08 05:24] LABS: Absolute Lymphocytes (CBC) 1.2 K/uL (0.7-4.9); Hematocrit 25.6 % (36.0-45.0); Lymphocytes % 23.4 % (15.3-44.8); MCV 80.7 fL (80-100); MPV 7.5 fL (7.6-11.3); RBC Red Blood Cell Count 3.17 M/uL (3.86-4.86)
[2023-01-08 05:39] LABS: Bilirubin Total 0.2 mg/dL (0.2-1.0); Potassium 3.5 mEq/L (3.5-5.1); Protein, Total 6.4 g/dL (6.4-8.2)
[2023-01-08] MEDS ORDERED: KCL 20 MEQ/100 mL IVPB 20 MEQ/100 ML BAG IV ONE (07:00)
[2023-01-08] MEDS: ENOXAPARIN 40 MG/0.4 ML SQ SCH (09:51)
[2023-01-08] MEDS: JEVITY 1.2 CAL LIQUID 1,000 ML BOT FT SCH ×4 (09:53→21:01)
[2023-01-08] MEDS: VANCOMYCIN 1 GM in NA CHLORIDE 0.9% 250 ML IVPB SCH ×2 (09:55→21:00)
--- NOTE | 2023-01-08 16:02 | P.PN ---
Subjective Date of Service: 01/08/23 Chief Complaint: Pneumonia, sepsis No acute events overnight per RN. No significant changes in care. Spoke with her daughter, Ms. Spaulding, who stated that she has spoken to some family members, but not all family members. She states that she will continue to contact family members before making any decisions. Review of Systems is unable to be obtained Physical Examination - Vital Signs Temperature: 97.4 F Blood Pressure: 102/60 Pulse: 93 Respirations: 20 Pulse Ox (%): 98 Assessment And Plan - Plan - Physical Exam General: In no apparent distress HEENT: Other (S/P tracheostomy), Sclerae nonicteric Neck: JVD not distended Respiratory: Diminished, Rhonchi/gurgles Cardiovascular: No edema, Regular rate/rhythm, No murmurs Gastrointestinal: Soft, Non-distended, No tenderness, Other (PEG tube) Musculoskeletal: No clubbing Integumentary: No rashes, Pressure ulcer (multiple - sacral, left hip, right buttock, right ankle - examined alongside bedside RN) Neurological: Other # Sepsis likely secondary to MRSA-Infected Sacral Wound, ESBL Escherichia Coli /Multi-Drug Resistant Pseudomonas Aeruginosa Pneumonia, and Fungal Urinary Tract Infection with Fungemia # Multiple Pressure Ulcers [(1) Sacrum - Unstageable, (2) Left Hip - Unstageable, (3) Right Buttock - Unstageable, (4) Right Ankle - Stage I) # History of MRSA, Pseudomonas Aeruginosa, Klebsiella Oxytoca, Pseudomonas Cepacia, Acinetobacter, Enterobacter Cloacae, and Stenotrphoomonas Maltophilia Infections # History of Opioid Overdose complicated by Anoxic Brain Injury now Trach/PEG- dependent # Paroxysmal Sympathetic Hyperactivity secondary to Anoxic Brain Injury She met sepsis criteria based on temperature > 100.4 F, HR > 90 bpm, RR > 20 breaths/min, and WBC > 12,000, and the suspected source is pneumonia and urinary. - Evaluation thus far: - Chest x-ray = "confluent airspace disease in the left midlung and left lung base, most consistent with pneumonia. Left pleural effusion cannot be excluded." - CT chest = "airspace consolidation in the left upper lobe, and left lower lobe, with central air bronchograms, consistent with pneumonia. Small bilateral pleural effusions." - Sacral culture = MRSA - Left hip culture = 3+ WBCs, 1+ yeast - Right buttock culture = 1+ WBCs - Urinalysis = 500 leukocyte esterase, >50 RBCs, 20-50 WBCs, many yeast, trace protein - Urine culture = 4+ yeast, Not Narda Albicans - Consulted Infectious Diseases and Pulmonology - recommendations appreciated - Sepsis order set was initiated - Initial Lactate was 1.5 - Blood cultures drawn before antibiotics were given - positive for yeast - Broad spectrum antibiotics started: Vancomycin + Meropenem-Vaborbactam + Micafungin - In regards to fluids: - 30 mL/kg of IV fluids was not administered given SBP > 90, MAP > 65, lactic acid < 4 - Will require ophthalmolgic exam given fungemia - Spoke with her daughter, Ms. Spaulding, today. She is contacting different family members to decided on hospice vs continued aggressive medical management. Will follow-up with her tomorrow. Shelton Roland M.D.
[2023-01-08] MEDS: MICAFUNGIN SODIUM 100 MG in NA CHLORIDE 0.9% 100 ML IV SCH (21:01)
[2023-01-09] MEDS: MEROPENEM/VABORBACTAM 4 GM in NA CHLORIDE 0.9% 250 ML IV SCH ×3 (00:26→17:59)
[2023-01-09 04:19] LABS: Hematocrit 24.4 % (36.0-45.0); Lymphocytes % 25.5 % (15.3-44.8); MCV 81.5 fL (80-100); MPV 6.9 fL (7.6-11.3); RBC Red Blood Cell Count 2.99 M/uL (3.86-4.86)
[2023-01-09 04:37] LABS: Albumin 1.8 g/dL (3.4-5.0); Bilirubin Total 0.2 mg/dL (0.2-1.0); Magnesium 1.7 mg/dL (1.6-2.4); Phosphorus 2.6 mg/dL (2.5-4.9); Potassium 3.4 mEq/L (3.5-5.1); Protein, Total 6.1 g/dL (6.4-8.2)
[2023-01-09] MEDS: Ringers Lactate 1,000 ML IV SCH ×3 (06:32→16:50)
[2023-01-09] MEDS ORDERED: MAGNESIUM SULFATE 1 gm IVPB 1 GM/100 ML BAG IV ONE (08:00)
[2023-01-09] MEDS ORDERED: NA CHLORIDE 0.9% 0 ML ONE (08:11)
[2023-01-09] MEDS: KCL 20 MEQ/100 mL IVPB 20 MEQ/100 ML BAG IV SCH (08:18)
[2023-01-09] MEDS: ENOXAPARIN 40 MG/0.4 ML SQ SCH (10:02)
[2023-01-09] MEDS: JEVITY 1.2 CAL LIQUID 1,000 ML BOT FT SCH ×4 (10:02→21:00)
--- NOTE | 2023-01-09 14:31 | PN ---
Subjective: The patient is lying in bed, opens eyes spontaneously. Objective: Vital Signs: Afebrile, pulse 80, respirations 20, blood pressure 117/68. Lungs: Basal crackles. Heart: S1, S2. Regular. Abdomen: Soft, nontender. Bowel sounds present. Extremity: Wounds noted. Muscle wasting noted. Laboratory Data: Shows WBC 4, hemoglobin 7.8, platelets 284. BUN of 5, creatinine 0.2, albumin leve l is 1.8. Micro data shows MRSA at the coccyx wound and Pseudomonas aeruginosa and E coli ESBL in th e sputum. Assessment And Plan: Multiple wounds in a patient with anoxic encephalopathy, left lower consolidati on with pneumonia secondary to ESBL organism. The patient is currently on Levemir, vancomycin, and M ycamine. Continue current treatment. Poor prognosis. Agree with comfort care plans. We will follo w the patient as needed. NF/MODL Voice ID: [id number] Report ID: [id number]
[2023-01-09] MEDS: VANCOMYCIN 1 GM in NA CHLORIDE 0.9% 250 ML IVPB SCH ×2 (15:51→22:28)
--- NOTE | 2023-01-09 18:03 | P.PN ---
Subjective Date of Service: 01/09/23 Chief Complaint: Pneumonia, sepsis No acute events overnight per RN. No significant changes in care. Spoke with her daughter, Ms. Spaulding, who stated that she has spoken to some family members, and they are unsure of whether or not to pursue hospice. She states that she is visiting the hospital tomorrow with her aunt, so we will plan to discuss goals of care tomorrow. She is in agreement with this plan. Review of Systems is unable to be obtained Physical Examination - Vital Signs Temperature: 97.6 F Blood Pressure: 107/69 Pulse: 104 Respirations: 20 Pulse Ox (%): 97 - Studies Microbiology Data (last 24 hrs): 01/04/23 03:00 Blood - Blood Anaerobic Blood Culture - Final No growth in 5 days. 01/04/23 03:15 Blood - Blood Aerobic Blood Culture - Final No growth in 5 days. 01/04/23 03:15 Blood - Blood Anaerobic Blood Culture - Final No growth in 5 days. Assessment And Plan - Plan - Physical Exam General: In no apparent distress HEENT: Other (S/P tracheostomy), Sclerae nonicteric Neck: JVD not distended Respiratory: Diminished, Rhonchi/gurgles Cardiovascular: No edema, Regular rate/rhythm, No murmurs Gastrointestinal: Soft, Non-distended, No tenderness, Other (PEG tube) Musculoskeletal: No clubbing Integumentary: No rashes, Pressure ulcer (multiple - sacral, left hip, right buttock, right ankle - examined alongside bedside RN) Neurological: Other # Sepsis likely secondary to MRSA-Infected Sacral Wound, ESBL Escherichia Coli /Multi-Drug Resistant Pseudomonas Aeruginosa Pneumonia, and Fungal Urinary Tract Infection with Fungemia # Multiple Pressure Ulcers [(1) Sacrum - Unstageable, (2) Left Hip - Unstageable, (3) Right Buttock - Unstageable, (4) Right Ankle - Stage I) # History of MRSA, Pseudomonas Aeruginosa, Klebsiella Oxytoca, Pseudomonas Cepacia, Acinetobacter, Enterobacter Cloacae, and Stenotrphoomonas Maltophilia Infections # History of Opioid Overdose complicated by Anoxic Brain Injury now Trach/PEG- dependent # Paroxysmal Sympathetic Hyperactivity secondary to Anoxic Brain Injury She met sepsis criteria based on temperature > 100.4 F, HR > 90 bpm, RR > 20 breaths/min, and WBC > 12,000, and the suspected source is pneumonia and urinary. - Evaluation thus far: - Chest x-ray = "confluent airspace disease in the left midlung and left lung base, most consistent with pneumonia. Left pleural effusion cannot be excluded." - CT chest = "airspace consolidation in the left upper lobe, and left lower lobe, with central air bronchograms, consistent with pneumonia. Small bilateral pleural effusions." - Sacral culture = MRSA - Left hip culture = 3+ WBCs, 1+ yeast - Right buttock culture = 1+ WBCs - Urinalysis = 500 leukocyte esterase, >50 RBCs, 20-50 WBCs, many yeast, trace protein - Urine culture = 4+ yeast, Not Narda Albicans - Consulted Infectious Diseases and Pulmonology - recommendations appreciated - Sepsis order set was initiated - Initial Lactate was 1.5 - Blood cultures drawn before antibiotics were given - positive for yeast - Broad spectrum antibiotics started: Vancomycin + Meropenem-Vaborbactam + Micafungin - In regards to fluids: - 30 mL/kg of IV fluids was not administered given SBP > 90, MAP > 65, lactic acid < 4 - Will require ophthalmolgic exam given fungemia - Spoke with her daughter, Ms. Spaulding, today. Plan is for an in-person [id number] discussion with her and her aunt tomorrow. Will follow-up with her tomorrow. Shelton Roland M.D.
[2023-01-09] MEDS: MICAFUNGIN SODIUM 100 MG in NA CHLORIDE 0.9% 100 ML IV SCH (21:00)
[2023-01-09] MEDS ORDERED: NA CHLORIDE 0.9% 100 ML ONE (21:41)
[2023-01-10] MEDS: MEROPENEM/VABORBACTAM 4 GM in NA CHLORIDE 0.9% 250 ML IV SCH ×3 (01:21→18:13)
[2023-01-10] MEDS: Ringers Lactate 1,000 ML IV SCH ×2 (02:50→12:50)
[2023-01-10 04:46] LABS: Absolute Lymphocytes (CBC) 1.1 K/uL (0.7-4.9); Lymphocytes % 25.5 % (15.3-44.8); MCV 81.4 fL (80-100); MPV 7.2 fL (7.6-11.3); RBC Red Blood Cell Count 3.07 M/uL (3.86-4.86)
[2023-01-10 04:54] LABS: Magnesium 1.8 mg/dL (1.6-2.4); Phosphorus 2.7 mg/dL (2.5-4.9); Potassium 3.4 mEq/L (3.5-5.1)
[2023-01-10] MEDS: KCL 20 MEQ/100 mL IVPB 20 MEQ/100 ML BAG IV SCH (05:18)
[2023-01-10] MEDS ORDERED: MAGNESIUM SULFATE 1 gm IVPB 1 GM/100 ML BAG IV ONE (08:00)
[2023-01-10] MEDS ORDERED: KCL 20 MEQ/100 mL IVPB 20 MEQ/100 ML BAG IV SCH (08:00)
[2023-01-10] MEDS: VANCOMYCIN 1 GM in NA CHLORIDE 0.9% 250 ML IVPB SCH (09:00)
[2023-01-10] MEDS: JEVITY 1.2 CAL LIQUID 1,000 ML BOT FT SCH ×5 (10:23→21:00)
[2023-01-10] MEDS: VANCOMYCIN 0.75 GM in NA CHLORIDE 0.9% 150 ML IVPB SCH (12:00)
[2023-01-10] MEDS: ENOXAPARIN 40 MG/0.4 ML SQ SCH (13:01)
--- NOTE | 2023-01-10 19:28 | P.PN ---
Subjective Date of Service: 01/10/23 Chief Complaint: Pneumonia, sepsis No acute events overnight per RN. No significant changes in care. Had an extensive wheis-ws-ckeh discussion today. Present for the discussion were myself, Ms. Rouse (social work), Ms. Spaulding (her daughter), and Mr. Mtz (her brother- via phone). I reviewed her clinical course and her overall prognosis. I explained that, although her current treatment plan seems to be helping, I am concerned that she will continue to develop recurrent infections. We reviewed different types of medical management, including continued aggressive medical care versus hospice/comfort care. I encouraged them to choose what Ms. Villalobos would tell me to do if she could. It appears that they are leaning more towards hospice services, but there are a few family members they would like to consult with first - primarily her son, who will be unable to see her for the next few weeks. Ms. Rouse provided them with information on hospice services, and they will look more into this. At this time, plan is to continue aggressive medical management. I am off service tomorrow, but I have signed out to Dr. Garcia, who will follow this up with them tomorrow. Review of Systems is unable to be obtained Physical Examination - Vital Signs Temperature: 98.4 F Blood Pressure: 95/56 Pulse: 90 Respirations: 30 Pulse Ox (%): 98 Assessment And Plan - Plan - Physical Exam General: In no apparent distress HEENT: Other (S/P tracheostomy), Sclerae nonicteric Neck: JVD not distended Respiratory: Diminished, Scattered rhonchi/gurgles Cardiovascular: No edema, Regular rate/rhythm, No murmurs Gastrointestinal: Soft, Non-distended, No tenderness, Other (PEG tube) Musculoskeletal: No clubbing Integumentary: No rashes, Pressure ulcer (multiple - sacral, left hip, right buttock, right ankle - examined alongside bedside RN) Neurological: Other # Sepsis likely secondary to MRSA-Infected Sacral Wound, ESBL Escherichia Coli /Multi-Drug Resistant Pseudomonas Aeruginosa Pneumonia, and Fungal Urinary Tract Infection with Fungemia # Multiple Pressure Ulcers [(1) Sacrum - Unstageable, (2) Left Hip - Unstageable, (3) Right Buttock - Unstageable, (4) Right Ankle - Stage I) # History of MRSA, Pseudomonas Aeruginosa, Klebsiella Oxytoca, Pseudomonas Cepacia, Acinetobacter, Enterobacter Cloacae, and Stenotrphoomonas Maltophilia Infections # History of Opioid Overdose complicated by Anoxic Brain Injury now Trach/PEG- dependent # Paroxysmal Sympathetic Hyperactivity secondary to Anoxic Brain Injury She met sepsis criteria based on temperature > 100.4 F, HR > 90 bpm, RR > 20 breaths/min, and WBC > 12,000, and the suspected source is pneumonia and urinary. - Evaluation thus far: - Chest x-ray = "confluent airspace disease in the left midlung and left lung base, most consistent with pneumonia. Left pleural effusion cannot be excluded." - CT chest = "airspace consolidation in the left upper lobe, and left lower lobe, with central air bronchograms, consistent with pneumonia. Small bilateral pleural effusions." - Sacral culture = MRSA - Left hip culture = 3+ WBCs, 1+ yeast - Right buttock culture = 1+ WBCs - Urinalysis = 500 leukocyte esterase, >50 RBCs, 20-50 WBCs, many yeast, trace protein - Urine culture = 4+ yeast, Not Narda Albicans - Consulted Infectious Diseases and Pulmonology - recommendations appreciated - Sepsis order set was initiated - Initial Lactate was 1.5 - Blood cultures drawn before antibiotics were given - positive for yeast (speciation and sensitivities pending) - Broad spectrum antibiotics started: Vancomycin + Meropenem-Vaborbactam + Micafungin - In regards to fluids: - 30 mL/kg of IV fluids was not administered given SBP > 90, MAP > 65, lactic acid < 4 - Will require ophthalmolgic exam given fungemia - Family is leaning towards hospice services, but will discuss with other family members further prior to making any changes. Shelton Roland M.D. Time Spent Managing PTS Care (In Minutes): 50
[2023-01-10] MEDS: MICAFUNGIN SODIUM 100 MG in NA CHLORIDE 0.9% 100 ML IV SCH (21:41)
[2023-01-10 22:10] LABS: Potassium 3.7 mEq/L (3.5-5.1)
[2023-01-11] MEDS: VANCOMYCIN 0.75 GM in NA CHLORIDE 0.9% 150 ML IVPB SCH ×2 (00:13→13:02)
[2023-01-11] MEDS: MEROPENEM/VABORBACTAM 4 GM in NA CHLORIDE 0.9% 250 ML IV SCH ×3 (01:00→17:40)
[2023-01-11] MEDS: Ringers Lactate 1,000 ML IV SCH ×3 (03:00→16:18)
[2023-01-11 06:53] LABS: Absolute Lymphocytes (CBC) 1.3 K/uL (0.7-4.9); Lymphocytes % 27.6 % (15.3-44.8); MCV 81.8 fL (80-100); RBC Red Blood Cell Count 3.54 M/uL (3.86-4.86)
[2023-01-11 07:08] LABS: Albumin 2.2 g/dL (3.4-5.0); Bilirubin Total 0.2 mg/dL (0.2-1.0); Phosphorus 2.8 mg/dL (2.5-4.9); Potassium 3.5 mEq/L (3.5-5.1)
[2023-01-11] MEDS: PHENYLEPHRINE 2.5% OPTH 2 ML EACH EYE SCH ×3 (07:35→08:29)
[2023-01-11] MEDS: TROPICAMIDE 1% OPTH 3 ML BOT OPTH SCH ×3 (07:35→08:29)
--- NOTE | 2023-01-11 08:32 | P.PN ---
Subjective Date of Service: 01/11/23 Chief Complaint: Pneumonia, sepsis Subjective: No new changes Family discussion had yesterday. they are not willing to proceed with hospice care. Physical Examination - Vital Signs Temperature: 97.4 F Blood Pressure: 96/67 Pulse: 82 Respirations: 24 Pulse Ox (%): 91 - Physical Exam General: Alert HEENT: Atraumatic, Normocephalic Neck: Supple Cardiovascular: Regular rate/rhythm, Normal S1 S2 Gastrointestinal: Soft and benign Musculoskeletal: No swelling Assessment And Plan - Plan # Sepsis likely secondary to MRSA-Infected Sacral Wound, ESBL Escherichia Coli /Multi-Drug Resistant Pseudomonas Aeruginosa Pneumonia, and Fungal Urinary Tract Infection with Fungemia # Multiple Pressure Ulcers [(1) Sacrum - Unstageable, (2) Left Hip - Unstageable, (3) Right Buttock - Unstageable, (4) Right Ankle - Stage I) # History of MRSA, Pseudomonas Aeruginosa, Klebsiella Oxytoca, Pseudomonas Cepacia, Acinetobacter, Enterobacter Cloacae, and Stenotrphoomonas Maltophilia Infections # History of Opioid Overdose complicated by Anoxic Brain Injury now Trach/PEG- dependent # Paroxysmal Sympathetic Hyperactivity secondary to Anoxic Brain Injury She met sepsis criteria based on temperature > 100.4 F, HR > 90 bpm, RR > 20 breaths/min, and WBC > 12,000, and the suspected source is pneumonia and urinary. - Evaluation thus far: - Chest x-ray = "confluent airspace disease in the left midlung and left lung base, most consistent with pneumonia. Left pleural effusion cannot be excluded." - CT chest = "airspace consolidation in the left upper lobe, and left lower lobe, with central air bronchograms, consistent with pneumonia. Small bilateral pleural effusions." - Sacral culture = MRSA - Left hip culture = 3+ WBCs, 1+ yeast - Right buttock culture = 1+ WBCs - Urinalysis = 500 leukocyte esterase, >50 RBCs, 20-50 WBCs, many yeast, tr papo protein - Urine culture = 4+ yeast, Not Narda Albicans - Consulted Infectious Diseases and Pulmonology - recommendations appreciated - Sepsis management is place and final antibiotic recs are pending repeat blood cultures. -we will follow closely. - Family is leaning towards hospice services, but will discuss with other family members further prior to making any changes.
[2023-01-11] MEDS ORDERED: KCL 20 MEQ/100 mL IVPB 20 MEQ/100 ML BAG IV ONE (09:00)
[2023-01-11] MEDS: ENOXAPARIN 40 MG/0.4 ML SQ SCH (09:41)
[2023-01-11] MEDS: JEVITY 1.2 CAL LIQUID 1,000 ML BOT FT SCH ×4 (09:41→20:44)
--- NOTE | 2023-01-11 13:28 | PN ---
Subjective: The patient is lying in bed, opens eyes spontaneously, not in any acute distress. Trach in place. PICC line in place. Objective: Examination remained unchanged. Laboratory Data: Shows WBC 4.6, hemoglobin 9.3, platelets are 347. Chemistry shows BUN of 9, creati nine 0.38. Micro data; coccyx wound growing MRSA, right buttock wound is enterococcus faecalis, sput um is Pseudomonas aeruginosa and E coli ESBL. Assessment And Plan: Pneumonitis with Pseudomonas and E coli ESBL, methicillin-resistant Staphylococ cus aureus wound infection, Enterococcus infection. Continue vancomycin and meropenem. Poor prognos is. Moderate protein-calorie malnourishment, anemia of chronic disease. Continue supportive care. We will follow the patient as needed. NF/MODL Voice ID: [id number] Report ID: [id number]
[2023-01-11] MEDS: MICAFUNGIN SODIUM 100 MG in NA CHLORIDE 0.9% 100 ML IV SCH (20:44)
[2023-01-12] MEDS: MEROPENEM/VABORBACTAM 4 GM in NA CHLORIDE 0.9% 250 ML IV SCH ×3 (01:00→16:45)
[2023-01-12] MEDS: Ringers Lactate 1,000 ML IV SCH ×3 (04:50→19:58)
[2023-01-12] MEDS ORDERED: KCL 20 MEQ/100 mL IVPB 20 MEQ/100 ML BAG IV ONE (09:00)
[2023-01-12] MEDS: ENOXAPARIN 40 MG/0.4 ML SQ SCH (09:10)
[2023-01-12] MEDS: JEVITY 1.2 CAL LIQUID 1,000 ML BOT FT SCH ×5 (09:10→19:58)
[2023-01-12] MEDS: VANCOMYCIN 0.75 GM in NA CHLORIDE 0.9% 150 ML IVPB SCH ×3 (12:38)
[2023-01-12] MEDS: HYDROMORPHONE HCL 0.5 MG/0.5 ML INJ IV PRN ×2 (16:45→22:14)
--- NOTE | 2023-01-12 18:00 | P.PN ---
Subjective Date of Service: 01/12/23 Chief Complaint: Pneumonia, sepsis No issues overnight. No major changes from yesterday. Patient is awake. Physical Examination - Vital Signs Temperature: 97.3 F Blood Pressure: 122/83 Pulse: 122 Respirations: 16 Pulse Ox (%): 95 Assessment And Plan - Plan Physical Exam General: Awake, cachectic. HEENT: Atraumatic, Normocephalic Neck: Supple Cardiovascular: Regular rate/rhythm, Normal S1 S2 Gastrointestinal: Soft and benign Musculoskeletal: No swelling, contracted lower extremities. Plan: Sepsis likely secondary to MRSA-Infected Sacral Wound, ESBL Escherichia Coli /Multi-Drug Resistant Pseudomonas Aeruginosa Pneumonia, and Fungal Urinary Tract Infection with Fungemia Multiple Pressure Ulcers [(1) Sacrum - Unstageable, (2) Left Hip - Unstageable, (3) Right Buttock - Unstageable, (4) Right Ankle - Stage I) History of MRSA, Pseudomonas Aeruginosa, Klebsiella Oxytoca, Pseudomonas Cepacia , Acinetobacter, Enterobacter Cloacae, and Stenotrphoomonas Maltophilia Infections History of Opioid Overdose complicated by Anoxic Brain Injury now Trach/PEG- dependent Paroxysmal Sympathetic Hyperactivity secondary to Anoxic Brain Injury She met sepsis criteria based on temperature > 100.4 F, HR > 90 bpm, RR > 20 breaths/min, and WBC > 12,000, and the suspected source is pneumonia and urinary. - Evaluation thus far: - Chest x-ray = "confluent airspace disease in the left midlung and left lung base, most consistent with pneumonia. Left pleural effusion cannot be excluded." - CT chest = "airspace consolidation in the left upper lobe, and left lower lobe, with central air bronchograms, consistent with pneumonia. Small bilateral pleural effusions." - Sacral culture = MRSA - Left hip culture = 3+ WBCs, 1+ yeast - Right buttock culture = 1+ WBCs - Urinalysis = 500 leukocyte esterase, >50 RBCs, 20-50 WBCs, many yeast, trace protein - Urine culture = 4+ yeast, Not Narda Albicans - Consulted Infectious Diseases and Pulmonology - recommendations appreciated -Continue current antibiotics -we will follow closely. - Family is leaning towards hospice services but not made a decision yet. Ongoing discussions with family regarding goals of care.
[2023-01-12] MEDS: MICAFUNGIN SODIUM 100 MG in NA CHLORIDE 0.9% 100 ML IV SCH (19:57)
[2023-01-13] MEDS: MEROPENEM/VABORBACTAM 4 GM in NA CHLORIDE 0.9% 250 ML IV SCH ×3 (01:00→16:08)
[2023-01-13 05:21] LABS: Absolute Lymphocytes (CBC) 1.2 K/uL (0.7-4.9); Lymphocytes % 15.5 % (15.3-44.8); MCV 81.3 fL (80-100); MPV 7.1 fL (7.6-11.3); RBC Red Blood Cell Count 3.81 M/uL (3.86-4.86)
[2023-01-13 05:37] LABS: Potassium 3.6 mEq/L (3.5-5.1)
[2023-01-13] MEDS: Ringers Lactate 1,000 ML IV SCH ×2 (07:45→17:52)
[2023-01-13] MEDS: ENOXAPARIN 40 MG/0.4 ML SQ SCH (08:08)
[2023-01-13] MEDS: JEVITY 1.2 CAL LIQUID 1,000 ML BOT FT SCH ×5 (08:11→20:52)
[2023-01-13] MEDS ORDERED: KCL 20 MEQ/100 mL IVPB 20 MEQ/100 ML BAG IV SCH (09:00)
[2023-01-13] MEDS: VANCOMYCIN 0.75 GM in NA CHLORIDE 0.9% 150 ML IVPB SCH ×3 (12:29)
--- NOTE | 2023-01-13 15:30 | P.PN ---
Subjective Date of Service: 01/13/23 Chief Complaint: Pneumonia, sepsis No issues overnight. No changes from yesterday Patient has been stable on oxygen by trach collar. Physical Examination - Vital Signs Temperature: 97.0 F Blood Pressure: 116/68 Pulse: 100 Respirations: 16 Pulse Ox (%): 96 Assessment And Plan - Plan Physical Exam General: Awake, cachectic. HEENT: Atraumatic, Normocephalic Neck: Supple Cardiovascular: Regular rate/rhythm, Normal S1 S2 Gastrointestinal: Soft and benign Musculoskeletal: No swelling, contracted lower extremities. Plan: Sepsis likely secondary to MRSA-Infected Sacral Wound, ESBL Escherichia Coli /Multi-Drug Resistant Pseudomonas Aeruginosa Pneumonia, and Fungal Urinary Tract Infection with Fungemia Multiple Pressure Ulcers [(1) Sacrum - Unstageable, (2) Left Hip - Unstageable, (3) Right Buttock - Unstageable, (4) Right Ankle - Stage I) History of MRSA, Pseudomonas Aeruginosa, Klebsiella Oxytoca, Pseudomonas Cepacia , Acinetobacter, Enterobacter Cloacae, and Stenotrphoomonas Maltophilia Infections History of Opioid Overdose complicated by Anoxic Brain Injury now Trach/PEG- dependent Paroxysmal Sympathetic Hyperactivity secondary to Anoxic Brain Injury She met sepsis criteria based on temperature > 100.4 F, HR > 90 bpm, RR > 20 breaths/min, and WBC > 12,000, and the suspected source is pneumonia and urinary. - Evaluation thus far: - Chest x-ray = "confluent airspace disease in the left midlung and left lung base, most consistent with pneumonia. Left pleural effusion cannot be excluded." - CT chest = "airspace consolidation in the left upper lobe, and left lower lobe, with central air bronchograms, consistent with pneumonia. Small bilateral pleural effusions." - Sacral culture = MRSA - Left hip culture = 3+ WBCs, 1+ yeast - Right buttock culture = 1+ WBCs - Urinalysis = 500 leukocyte esterase, >50 RBCs, 20-50 WBCs, many yeast, trace protein - Urine culture = 4+ yeast, Not Narda Albicans - Consulted Infectious Diseases and Pulmonology - recommendations appreciated -Tracheal suctioning as needed. -Continue current antibiotics -I met with the daughter who stated she communicated with her mother and feels her mother wants to keep fighting. She would like to hold off on hospice and looking forward to place her mother in a shelter in [place]. She states that she now has a medicaid reward/approval letter to help her place her mother in another facility.
[2023-01-13] MEDS: HYDROMORPHONE HCL 0.5 MG/0.5 ML INJ IV PRN ×2 (16:32→20:48)
[2023-01-13] MEDS ORDERED: NA CHLORIDE 0.9% 100 ML ONE (20:45)
[2023-01-13] MEDS: MICAFUNGIN SODIUM 100 MG in NA CHLORIDE 0.9% 100 ML IV SCH (20:46)
[2023-01-14] MEDS: VANCOMYCIN 0.75 GM in NA CHLORIDE 0.9% 150 ML IVPB SCH ×2 (00:07→12:35)
[2023-01-14] MEDS: MEROPENEM/VABORBACTAM 4 GM in NA CHLORIDE 0.9% 250 ML IV SCH ×3 (01:10→15:59)
[2023-01-14] MEDS: Ringers Lactate 1,000 ML IV SCH ×3 (04:27→20:52)
[2023-01-14 04:43] LABS: Potassium 3.7 mEq/L (3.5-5.1)
[2023-01-14] MEDS ORDERED: KCL 20 MEQ/100 mL IVPB 20 MEQ/100 ML BAG IV ONE (05:00)
[2023-01-14] MEDS: ENOXAPARIN 40 MG/0.4 ML SQ SCH (09:32)
[2023-01-14] MEDS: JEVITY 1.2 CAL LIQUID 1,000 ML BOT FT SCH ×4 (09:34→20:53)
--- NOTE | 2023-01-14 10:42 | P.PN ---
Subjective Date of Service: 01/14/23 Chief Complaint: Pneumonia, sepsis No issues overnight. No new changes from yesterday Patient has been stable on oxygen by trach collar. She has been afebrile. Physical Examination - Vital Signs Temperature: 96.7 F Blood Pressure: 92/66 Pulse: 110 Respirations: 20 Pulse Ox (%): 97 Assessment And Plan - Plan Physical Exam General: Awake, cachectic. HEENT: Atraumatic, Normocephalic Neck: Supple Cardiovascular: Regular rate/rhythm, Normal S1 S2 Gastrointestinal: Soft and benign Musculoskeletal: No swelling, contracted lower extremities. Plan: Sepsis likely secondary to MRSA-Infected Sacral Wound, ESBL Escherichia Coli /Multi-Drug Resistant Pseudomonas Aeruginosa Pneumonia, and Fungal Urinary Tract Infection with Fungemia Multiple Pressure Ulcers [(1) Sacrum - Unstageable, (2) Left Hip - Unstageable, (3) Right Buttock - Unstageable, (4) Right Ankle - Stage I) History of MRSA, Pseudomonas Aeruginosa, Klebsiella Oxytoca, Pseudomonas Cepacia , Acinetobacter, Enterobacter Cloacae, and Stenotrphoomonas Maltophilia Infections History of Opioid Overdose complicated by Anoxic Brain Injury now Trach/PEG- dependent Paroxysmal Sympathetic Hyperactivity secondary to Anoxic Brain Injury She met sepsis criteria based on temperature > 100.4 F, HR > 90 bpm, RR > 20 breaths/min, and WBC > 12,000, and the suspected source is pneumonia and urinary. - Evaluation thus far: - Chest x-ray = "confluent airspace disease in the left midlung and left lung base, most consistent with pneumonia. Left pleural effusion cannot be excluded." - CT chest = "airspace consolidation in the left upper lobe, and left lower lobe, with central air bronchograms, consistent with pneumonia. Small bilateral pleural effusions." - Sacral culture = MRSA - Left hip culture = 3+ WBCs, 1+ yeast - Right buttock culture = 1+ WBCs - Urinalysis = 500 leukocyte esterase, >50 RBCs, 20-50 WBCs, many yeast, t race protein - Urine culture = 4+ yeast, Not Narda Albicans - Infectious Diseases and Pulmonology are following -Tracheal suctioning as needed. --Continue current antibiotics -Daughter wants to continue aggressive treatment. She is also looking for a half-way facility inside [place].
[2023-01-14] MEDS: MICAFUNGIN SODIUM 100 MG in NA CHLORIDE 0.9% 100 ML IV SCH (20:51)
[2023-01-15] MEDS: VANCOMYCIN 0.75 GM in NA CHLORIDE 0.9% 150 ML IVPB SCH ×3 (00:04→23:13)
[2023-01-15] MEDS: MEROPENEM/VABORBACTAM 4 GM in NA CHLORIDE 0.9% 250 ML IV SCH ×3 (00:52→17:21)
[2023-01-15 05:07] LABS: Potassium 3.5 mEq/L (3.5-5.1)
[2023-01-15] MEDS ORDERED: KCL 20 MEQ/100 mL IVPB 20 MEQ/100 ML BAG IV ONE (06:00)
[2023-01-15] MEDS: ENOXAPARIN 40 MG/0.4 ML SQ SCH (10:06)
[2023-01-15] MEDS: JEVITY 1.2 CAL LIQUID 1,000 ML BOT FT SCH ×5 (10:06→21:00)
--- NOTE | 2023-01-15 11:17 | P.PN ---
Subjective Date of Service: 01/15/23 Chief Complaint: Pneumonia, sepsis No new changes. Patient has been stable on oxygen by trach collar with stable vitals She has been afebrile. Physical Examination - Vital Signs Temperature: 98.5 F Blood Pressure: 95/68 Pulse: 98 Respirations: 14 Pulse Ox (%): 91 Assessment And Plan - Plan Physical Exam General: Awake, cachectic. HEENT: Atraumatic, Normocephalic Neck: Supple Cardiovascular: Regular rate/rhythm, Normal S1 S2 Gastrointestinal: Soft and benign Musculoskeletal: No swelling, contracted lower extremities. Plan: Sepsis likely secondary to MRSA-Infected Sacral Wound, ESBL Escherichia Coli /Multi-Drug Resistant Pseudomonas Aeruginosa Pneumonia, and Fungal Urinary Tract Infection with Fungemia Multiple Pressure Ulcers [(1) Sacrum - Unstageable, (2) Left Hip - Unstageable, (3) Right Buttock - Unstageable, (4) Right Ankle - Stage I) History of MRSA, Pseudomonas Aeruginosa, Klebsiella Oxytoca, Pseudomonas Cepacia , Acinetobacter, Enterobacter Cloacae, and Stenotrphoomonas Maltophilia Infections History of Opioid Overdose complicated by Anoxic Brain Injury now Trach/PEG-dependent Paroxysmal Sympathetic Hyperactivity secondary to Anoxic Brain Injury She met sepsis criteria based on temperature > 100.4 F, HR > 90 bpm, RR > 20 breaths/min, and WBC > 12,000, and the suspected source is pneumonia and urinary. - Evaluation thus far: - Chest x-ray = "confluent airspace disease in the left midlung and left lung base, most consistent with pneumonia. Left pleural effusion cannot be excluded." - CT chest = "airspace consolidation in the left upper lobe, and left lower lobe, with central air bronchograms, consistent with pneumonia. Small bilateral pleural effusions." - Sacral culture = MRSA - Left hip culture = 3+ WBCs, 1+ yeast - Right buttock culture = 1+ WBCs - Urinalysis = 500 leukocyte esterase, >50 RBCs, 20-50 WBCs, many yeast, trace protein - Urine culture = 4+ yeast, Not Narda Albicans - Infectious Diseases and Pulmonology are following -Tracheal suctioning as needed. -Stable vitals. --Continue current antibiotics. Duration of antibiotics per Infectious disease -Daughter wants to continue aggressive treatment. She is also looking for a assisted facility inside [place]. Social service assisting with disposition.
[2023-01-15] MEDS: Ringers Lactate 1,000 ML IV SCH ×2 (13:03→21:25)
[2023-01-15] MEDS ORDERED: NA CHLORIDE 0.9% 100 ML ONE (20:19)
[2023-01-15] MEDS: MICAFUNGIN SODIUM 100 MG in NA CHLORIDE 0.9% 100 ML IV SCH (21:23)
[2023-01-16] MEDS: MEROPENEM/VABORBACTAM 4 GM in NA CHLORIDE 0.9% 250 ML IV SCH ×3 (00:53→16:35)
[2023-01-16 07:08] LABS: Potassium 3.4 mEq/L (3.5-5.1)
[2023-01-16] MEDS ORDERED: cloNIDine HCL 0.1 MG TAB PO PRN (08:12)
[2023-01-16] MEDS ORDERED: POLYVINYL ALCOHOL 1.4% 15 ML OPTH PRN (08:12)
[2023-01-16] MEDS ORDERED: LORazepam 2 MG/ML VIAL IV ONE (08:14)
[2023-01-16] MEDS ORDERED: LORazepam 2 MG/ML VIAL ONE (08:24)
[2023-01-16] MEDS: Ringers Lactate 1,000 ML IV SCH ×3 (08:36→18:50)
[2023-01-16] MEDS: ENOXAPARIN 40 MG/0.4 ML SQ SCH (09:12)
[2023-01-16] MEDS: clonazePAM 0.5 MG TAB FT SCH ×3 (09:13→21:11)
[2023-01-16] MEDS: BACLOFEN 10 MG TAB FT SCH ×3 (09:13→21:12)
[2023-01-16] MEDS: KCL 20 MEQ/100 mL IVPB 20 MEQ/100 ML BAG IV SCH ×2 (09:13→11:53)
[2023-01-16] MEDS: ASPIRIN 81 MG CHEWABLE TABLET FT SCH (09:13)
[2023-01-16] MEDS: GABAPENTIN 300 MG CAP FT SCH ×3 (09:13→21:12)
[2023-01-16] MEDS: JEVITY 1.2 CAL LIQUID 1,000 ML BOT FT SCH ×4 (09:23→21:00)
--- NOTE | 2023-01-16 10:51 | P.PN ---
Subjective Date of Service: 01/16/23 Chief Complaint: Pneumonia, sepsis Occasional limb and trunk jerks noted today Patient has been stable on oxygen by trach collar with stable vitals Physical Examination - Vital Signs Temperature: 98.1 F Blood Pressure: 106/64 Pulse: 121 Respirations: 26 Pulse Ox (%): 88 Assessment And Plan - Plan Physical Exam General: Awake, cachectic. HEENT: Atraumatic, Normocephalic Neck: Supple Cardiovascular: Regular rate/rhythm, Normal S1 S2 Gastrointestinal: Soft and benign Musculoskeletal: No swelling, contracted lower extremities. Plan: Sepsis likely secondary to MRSA-Infected Sacral Wound, ESBL Escherichia Coli /Multi-Drug Resistant Pseudomonas Aeruginosa Pneumonia, and Fungal Urinary Tract Infection with Fungemia Multiple Pressure Ulcers [(1) Sacrum - Unstageable, (2) Left Hip - Unstageable, (3) Right Buttock - Unstageable, (4) Right Ankle - Stage I) History of MRSA, Pseudomonas Aeruginosa, Klebsiella Oxytoca, Pseudomonas Cepacia , Acinetobacter, Enterobacter Cloacae, and Stenotrphoomonas Maltophilia Infections History of Opioid Overdose complicated by Anoxic Brain Injury now Trach/PEG- dependent Paroxysmal Sympathetic Hyperactivity secondary to Anoxic Brain Injury She met sepsis criteria based on temperature > 100.4 F, HR > 90 bpm, RR > 20 breaths/min, and WBC > 12,000, and the suspected source is pneumonia and urinary. - Evaluation thus far: - Chest x-ray = "confluent airspace disease in the left midlung and left lung base, most consistent with pneumonia. Left pleural effusion cannot be excluded." - CT chest = "airspace consolidation in the left upper lobe, and left lower lobe, with central air bronchograms, consistent with pneumonia. Small bilateral pleural effusions." - Sacral culture = MRSA - Left hip culture = 3+ WBCs, 1+ yeast - Right buttock culture = 1+ WBCs - Urinalysis = 500 leukocyte esterase, >50 RBCs, 20-50 WBCs, many yeast, trace protein - Urine culture = 4+ yeast, Not Narda Albicans - Infectious Diseases and Pulmonology are following -Tracheal suctioning as needed. -Stable vitals. --Continue current antibiotics. Duration of antibiotics per Infectious disease Quadriplegia/myoclonic check/spasms -Resume home dose gabapentin and baclofen -Ativan 1 mg x 1 dose. -Monitor for seizures -Daughter wants to continue aggressive treatment. She is also looking for a fpc facility inside [place]. Social service assisting with disposition.
[2023-01-16] MEDS: VANCOMYCIN 0.75 GM in NA CHLORIDE 0.9% 150 ML IVPB SCH (11:53)
--- NOTE | 2023-01-16 19:25 | P.PN ---
Date of Service: 01/17/23 Subjective: nonverbal; updated patient on ongoing issues opens eyes to answer yes/no questions, mostly appropriate / seems to understand did not respond yes (open eyes big) when asked if in pain did respond yes (open eyes big) when asked if would want DNR. No answer regarding hospice ROS: unable to fully obtain Physical Exam: Gen: Awake, thin, NAD HEENT: normal conjunctiva, sclera anicteric, trach collar CV: regular rate & rhythm, no edema Pulm: non-labored respirations on room air, clear bilaterally Abd: soft, non-tender, PEG tube in place MSK: contracted lower extremities Skin: Sacral decubitus ulcers present Neuro: Not verbally responsive, quadriplegia Randolph PEG tube Trach collar vitals reviewed Problem List: Sepsis likely secondary to MRSA-Infected Sacral Wound, ESBL Escherichia Coli /Multi-Drug Resistant Pseudomonas Aeruginosa Pneumonia, and Fungal Urinary Tract Infection with Fungemia Multiple Pressure Ulcers [(1) Sacrum - Unstageable, (2) Left Hip - Unstageable, (3) Right Buttock - Unstageable, (4) Right Ankle - Stage I) History of MRSA, Pseudomonas Aeruginosa, Klebsiella Oxytoca, Pseudomonas Cepacia , Acinetobacter, Enterobacter Cloacae, and Stenotrphoomonas Maltophilia Infections History of Opioid Overdose complicated by Anoxic Brain Injury now Trach/PEG- dependent Paroxysmal Sympathetic Hyperactivity secondary to Anoxic Brain Injury She met sepsis criteria based on temperature > 100.4 F, HR > 90 bpm, RR > 20 breaths/min, and WBC > 12,000, and source: pneumonia, UTI, sacral wounds Chest x-ray 01/04 - "confluent airspace disease in the left midlung and left lung base, most consistent with pneumonia. Left pleural effusion cannot be excluded." CT chest 01/04 - "airspace consolidation in the left upper lobe, and left lower lobe, with central air bronchograms, consistent with pneumonia. Small bilateral pleural effusions." Sacral culture - MRSA Sputum - Pseudomonas Aeruginosa, E. coli esbl Left hip culture - 3+ WBCs, 1+ yeast Right buttock culture = Enterococcus Faecalis Urine culture = 4+ yeast, not Narda Albicans ID and Pulmonology consulted Tracheal suctioning as needed Stable vitals Continue current antibiotics reprotedly not accepted back to the facility she came from - due to financial issues / outstanding balance - unclear on legality of this social media job titles assisting in finding new facility initial long discussions were held with patient's daughter, who reported she felt patient would want to be DNR, however did not want to change code status On 01/17, when I asked the patient - via yes/no questions, confirming both DNR or full code, asking her to open eyes big and keep them big, she responding yes to DNR twice, and did not open eyes big to full code. When asked again (differently) that DNR is what she would want, she opened eyes big. will discuss with daughter. At times patient does not answer / not seemingly appropriate, however given history and prior interactions/reports; suspect this is more behavioral / choice, and she does understand Quadriplegia/myoclonic check/spasms Resume home dose gabapentin and baclofen Monitor for seizures VTE: Lovenox Code: Full Dispo: Daughter wants to continue aggressive treatment. She is also looking for a skilled nursing facility inside [place]. Social service assisting with disposition
[2023-01-16] MEDS: MICAFUNGIN SODIUM 100 MG in NA CHLORIDE 0.9% 100 ML IV SCH (21:10)
[2023-01-16] MEDS: SERTRALINE HCL 100 MG TAB FT SCH (21:12)
[2023-01-17] MEDS: MEROPENEM/VABORBACTAM 4 GM in NA CHLORIDE 0.9% 250 ML IV SCH ×3 (01:00→17:12)
[2023-01-17] MEDS: VANCOMYCIN 0.75 GM in NA CHLORIDE 0.9% 150 ML IVPB SCH ×2 (01:57→11:38)
[2023-01-17 05:25] LABS: Absolute Lymphocytes (CBC) 1.1 K/uL (0.7-4.9); Hematocrit 28.6 % (36.0-45.0); MCV 81.3 fL (80-100); RBC Red Blood Cell Count 3.52 M/uL (3.86-4.86)
[2023-01-17 05:41] LABS: Albumin 2.1 g/dL (3.4-5.0); Bilirubin Total 0.4 mg/dL (0.2-1.0); Magnesium 1.9 mg/dL (1.6-2.4); Phosphorus 2.8 mg/dL (2.5-4.9); Potassium 3.7 mEq/L (3.5-5.1); Protein, Total 6.9 g/dL (6.4-8.2)
[2023-01-17] MEDS: Ringers Lactate 1,000 ML IV SCH ×2 (05:49→13:42)
[2023-01-17] MEDS: ASPIRIN 81 MG CHEWABLE TABLET FT SCH (08:57)
[2023-01-17] MEDS: JEVITY 1.2 CAL LIQUID 1,000 ML BOT FT SCH ×5 (08:57→22:02)
[2023-01-17] MEDS: GABAPENTIN 300 MG CAP FT SCH ×3 (08:57→22:01)
[2023-01-17] MEDS: clonazePAM 0.5 MG TAB FT SCH ×3 (08:57→22:01)
[2023-01-17] MEDS: BACLOFEN 10 MG TAB FT SCH ×3 (08:57→22:01)
[2023-01-17] MEDS: ENOXAPARIN 40 MG/0.4 ML SQ SCH (08:57)
[2023-01-17] MEDS: SERTRALINE HCL 100 MG TAB FT SCH (22:01)
[2023-01-17] MEDS: MICAFUNGIN SODIUM 100 MG in NA CHLORIDE 0.9% 100 ML IV SCH (22:03)
[2023-01-18] MEDS: MEROPENEM/VABORBACTAM 4 GM in NA CHLORIDE 0.9% 250 ML IV SCH ×3 (00:17→16:25)
[2023-01-18] MEDS: VANCOMYCIN 0.75 GM in NA CHLORIDE 0.9% 150 ML IVPB SCH ×2 (00:17→14:14)
[2023-01-18] MEDS: Ringers Lactate 1,000 ML IV SCH ×3 (00:22→22:35)
--- NOTE | 2023-01-18 07:15 | P.PN ---
Date of Service: 01/18/23 Subjective: stable tube feeds briefly held overnight due to residuals ROS: unable to fully obtain Physical Exam: Gen: Awake, thin, NAD HEENT: normal conjunctiva, sclera anicteric, trach collar CV: regular rate & rhythm, no edema Pulm: non-labored respirations on trach collar, clear bilaterally Abd: soft, non-tender, PEG tube in place MSK: contracted lower extremities Skin: Sacral decubitus ulcers present Neuro: Not verbally responsive, quadriplegia; follows some basic commands - opens/closes eyes in response to questions Randolph PEG tube Trach collar vitals reviewed Problem List: Sepsis likely secondary to MRSA-Infected Sacral Wound, ESBL Escherichia Coli /Multi-Drug Resistant Pseudomonas Aeruginosa Pneumonia, and Fungal Urinary Tract Infection with Fungemia Multiple Pressure Ulcers [(1) Sacrum - Unstageable, (2) Left Hip - Unstageable, (3) Right Buttock - Unstageable, (4) Right Ankle - Stage I) History of MRSA, Pseudomonas Aeruginosa, Klebsiella Oxytoca, Pseudomonas Cepacia , Acinetobacter, Enterobacter Cloacae, and Stenotrphoomonas Maltophilia Infections History of Opioid Overdose complicated by Anoxic Brain Injury now Trach/PEG- dependent Paroxysmal Sympathetic Hyperactivity secondary to Anoxic Brain Injury She met sepsis criteria based on temperature > 100.4 F, HR > 90 bpm, RR > 20 breaths/min, and WBC > 12,000, and source: pneumonia, UTI, sacral wounds Chest x-ray 01/04 - "confluent airspace disease in the left midlung and left lung base, most consistent with pneumonia. Left pleural effusion cannot be excluded." CT chest 01/04 - "airspace consolidation in the left upper lobe, and left lower lobe, with central air bronchograms, consistent with pneumonia. Small bilateral pleural effusions." Sacral culture - MRSA Sputum - Pseudomonas Aeruginosa, E. coli esbl Left hip culture - 3+ WBCs, 1+ yeast Right buttock culture = Enterococcus Faecalis Urine culture = 4+ yeast, not Narda Albicans ID and Pulmonology consulted ID recommends total 2 week treatment Tracheal suctioning as needed Stable vitals reprotedly not accepted back to the facility she came from - due to financial issues / outstanding balance - unclear on legality of this social science professor assisting in finding new facility initial long discussions were held with patient's daughter, who reported she felt patient would want to be DNR, however did not want to change code status On 01/17, when I asked the patient - via yes/no questions, confirming both DNR or full code, asking her to open eyes big and keep them big, she responding yes to DNR twice, and did not open eyes big to full code. When asked again (differently) that DNR is what she would want, she opened eyes big. At times patient does not answer / not seemingly appropriate, however given history and prior interactions/reports; suspect this is more behavioral / choice, and she does understand asked patient if she would want me to discuss DNR status with daughter. Initially no response, then opened her eyes big indicating yes spoke to daughter on 01/18, states she thinks patient would want to be DNR, daughter would want her to be DNR as well, however, states rest of family does not want her DNR, so daughter will continue with full code for now discussed this decision is up to the patient and what she would want, not the family. Daughter expressed understanding and stated she will talk to the family Quadriplegia/myoclonic check/spasms continue home dose gabapentin and baclofen Monitor for seizures VTE: Lovenox Code: Full Dispo: Daughter wants to continue aggressive treatment. She is also looking for a [facility] facility inside [place]. Social service assisting with disposition
[2023-01-18] MEDS: ENOXAPARIN 40 MG/0.4 ML SQ SCH (10:24)
[2023-01-18] MEDS: BACLOFEN 10 MG TAB FT SCH ×3 (10:25→22:33)
[2023-01-18] MEDS: ASPIRIN 81 MG CHEWABLE TABLET FT SCH (10:25)
[2023-01-18] MEDS: GABAPENTIN 300 MG CAP FT SCH ×3 (10:25→22:33)
[2023-01-18] MEDS: clonazePAM 0.5 MG TAB FT SCH ×3 (10:25→22:33)
[2023-01-18] MEDS: JEVITY 1.2 CAL LIQUID 1,000 ML BOT FT SCH ×4 (10:26→22:34)
[2023-01-18 11:34] LABS: Urine Bilirubin NEGATIVE (Negative); Urine Blood Negative (Negative); Urine Clarity Clear (Clear); Urine Color Colorless (Yellow); Urine Glucose NEGATIVE (Negative); Urine Protein NEGATIVE (Negative); Urine Urobilinogen Normal (Normal); Urine pH 7.5 (5.0-7.0)
[2023-01-18] MEDS ORDERED: VANCOMYCIN 1 GM/VIAL ONE (14:14)
--- NOTE | 2023-01-18 16:34 | PN ---
Subjective: No new acute events. The patient pending transfer to skilled facility. Opens eyes spon taneously. Objective: Vital Signs: Reviewed. Lungs: Basal crackles. Heart: S1, S2. Regular. Abdomen: Soft, nontender. Bowel sounds present. Extremity: Muscle wasting. No edema. Laboratory Data: Reviewed. Assessment And Plan: We will repeat cultures. The patient with multiple wounds and chronic respirat ory failure. Continue supportive care and wound care. No other recommendation. Prognosis poor. Co nsider hospice care. We will follow the patient as needed. NF/MODL Voice ID: [id number] Report ID: [id number]
[2023-01-18] MEDS: ACETAMINOPHEN 650MG/RECT SUPP PR PRN (17:26)
[2023-01-18] MEDS: SERTRALINE HCL 100 MG TAB FT SCH (22:33)
[2023-01-18] MEDS: MICAFUNGIN SODIUM 100 MG in NA CHLORIDE 0.9% 100 ML IV SCH (22:33)
[2023-01-19] MEDS: VANCOMYCIN 0.75 GM in NA CHLORIDE 0.9% 150 ML IVPB SCH ×2 (00:38→12:11)
[2023-01-19] MEDS: MEROPENEM/VABORBACTAM 4 GM in NA CHLORIDE 0.9% 250 ML IV SCH ×3 (00:39→17:00)
[2023-01-19 06:08] LABS: Hematocrit 28.9 % (36.0-45.0); Lymphocytes % 18.6 % (15.3-44.8); MCV 80.7 fL (80-100); MPV 7.3 fL (7.6-11.3); RBC Red Blood Cell Count 3.58 M/uL (3.86-4.86)
[2023-01-19 06:19] LABS: Albumin 2.2 g/dL (3.4-5.0); Bilirubin Total 0.3 mg/dL (0.2-1.0); Potassium 3.7 mEq/L (3.5-5.1); Protein, Total 7.1 g/dL (6.4-8.2)
--- NOTE | 2023-01-19 07:40 | P.PN ---
Date of Service: 01/19/23 Subjective: stable ROS: unable to fully obtain Physical Exam: Gen: Awake, thin, NAD HEENT: normal conjunctiva, sclera anicteric, trach collar CV: regular rate & rhythm, no edema Pulm: non-labored respirations on trach collar, transmitted upper airway noises, +trach secretions Abd: soft, non-tender, PEG tube in place MSK: contracted lower extremities Skin: Sacral decubitus ulcers present Neuro: Not verbally responsive, quadriplegia; follows some basic commands - opens/closes eyes in response to questions Randolph PEG tube Trach collar vitals reviewed Problem List: Sepsis likely secondary to MRSA-Infected Sacral Wound, ESBL Escherichia Coli /Multi-Drug Resistant Pseudomonas Aeruginosa Pneumonia, and Fungal Urinary Tract Infection with Fungemia Multiple Pressure Ulcers [(1) Sacrum - Unstageable, (2) Left Hip - Unstageable, (3) Right Buttock - Unstageable, (4) Right Ankle - Stage I) History of MRSA, Pseudomonas Aeruginosa, Klebsiella Oxytoca, Pseudomonas Cepacia , Acinetobacter, Enterobacter Cloacae, and Stenotrphoomonas Maltophilia Infections History of Opioid Overdose complicated by Anoxic Brain Injury now Trach/PEG- dependent Paroxysmal Sympathetic Hyperactivity secondary to Anoxic Brain Injury She met sepsis criteria based on temperature > 100.4 F, HR > 90 bpm, RR > 20 breaths/min, and WBC > 12,000, and source: pneumonia, UTI, sacral wounds Chest x-ray 01/04 - "confluent airspace disease in the left midlung and left lung base, most consistent with pneumonia. Left pleural effusion cannot be excluded." CT chest 01/04 - "airspace consolidation in the left upper lobe, and left l ower lobe, with central air bronchograms, consistent with pneumonia. Small bilateral pleural effusions." Sacral culture - MRSA Sputum - Pseudomonas Aeruginosa, E. coli esbl Left hip culture - 3+ WBCs, 1+ yeast Right buttock culture = Enterococcus Faecalis Urine culture = 4+ yeast, not Narda Albicans ID and Pulmonology consulted ID recommends total 2 week treatment - completes full course 01/21 Tracheal suctioning as needed Stable vitals reprotedly not accepted back to the facility she came from - due to financial issues / outstanding balance - unclear on legality of this clinical social work therapist assisting in finding new facility initial long discussions were held with patient's daughter, who reported she felt patient would want to be DNR, however did not want to change code status On 01/17, when I asked the patient - via yes/no questions, confirming both DNR or full code, asking her to open eyes big and keep them big, she responding yes to DNR twice, and did not open eyes big to full code. When asked again (differently) that DNR is what she would want, she opened eyes big. At times patient does not answer / not seemingly appropriate, however given history and prior interactions/reports; suspect this is more behavioral / choice, and she does understand asked patient if she would want me to discuss DNR status with daughter. Initially no response, then opened her eyes big indicating yes spoke to daughter on 01/18, states she thinks patient would want to be DNR, daughter would want her to be DNR as well, however, states rest of family does not want her DNR, so daughter will continue with full code for now discussed this decision is up to the patient and what she would want, not the family. Daughter expressed understanding and stated she will talk to the family Quadriplegia/myoclonic check/spasms continue home dose gabapentin and baclofen Monitor for seizures VTE: Lovenox Code: Full Dispo: Daughter wants to continue aggressive treatment. She is also looking for a group home facility inside [place]. Social service assisting with disposition
[2023-01-19] MEDS: BACLOFEN 10 MG TAB FT SCH ×3 (09:00→20:25)
[2023-01-19] MEDS: JEVITY 1.2 CAL LIQUID 1,000 ML BOT FT SCH ×4 (09:00→21:00)
[2023-01-19] MEDS: ENOXAPARIN 40 MG/0.4 ML SQ SCH (09:53)
[2023-01-19] MEDS: clonazePAM 0.5 MG TAB FT SCH ×3 (09:53→20:24)
[2023-01-19] MEDS: GABAPENTIN 300 MG CAP FT SCH ×3 (09:53→20:24)
[2023-01-19] MEDS: ASPIRIN 81 MG CHEWABLE TABLET FT SCH (09:53)
[2023-01-19] MEDS: Ringers Lactate 1,000 ML IV SCH ×3 (12:11→21:35)
[2023-01-19] MEDS: SERTRALINE HCL 100 MG TAB FT SCH (20:25)
[2023-01-19] MEDS: MICAFUNGIN SODIUM 100 MG in NA CHLORIDE 0.9% 100 ML IV SCH (20:25)
[2023-01-20] MEDS: VANCOMYCIN 0.75 GM in NA CHLORIDE 0.9% 150 ML IVPB SCH ×2 (00:32→11:46)
[2023-01-20] MEDS: MEROPENEM/VABORBACTAM 4 GM in NA CHLORIDE 0.9% 250 ML IV SCH ×2 (01:16→09:08)
[2023-01-20] MEDS: Ringers Lactate 1,000 ML IV SCH ×3 (02:50→22:36)
--- NOTE | 2023-01-20 07:18 | P.PN ---
Date of Service: 01/20/23 Subjective: stable, no acute events overnight ROS: unable to fully obtain Physical Exam: Gen: Awake, cachectic, NAD HEENT: normal conjunctiva, sclera anicteric, trach collar CV: regular rate & rhythm, no edema Pulm: non-labored respirations on trach collar, clear bilaterally Abd: soft, non-tender, PEG tube in place MSK: contracted lower extremities Skin: Sacral decubitus ulcers present Neuro: Not verbally responsive, quadriplegia; follows some basic commands - opens/closes eyes in response to questions Randolph PEG tube Trach collar vitals reviewed Problem List: Sepsis secondary to MRSA-Infected Sacral Wound, ESBL Escherichia Coli/Multi-Drug Resistant Pseudomonas Aeruginosa Pneumonia, and Fungal Urinary Tract Infection with Fungemia Multiple Pressure Ulcers [(1) Sacrum - Unstageable, (2) Left Hip - Unstageable, (3) Right Buttock - Unstageable, (4) Right Ankle - Stage I) History of MRSA, Pseudomonas Aeruginosa, Klebsiella Oxytoca, Pseudomonas Cepacia , Acinetobacter, Enterobacter Cloacae, and Stenotrphoomonas Maltophilia Infections History of Opioid Overdose complicated by Anoxic Brain Injury now Trach/PEG- dependent Paroxysmal Sympathetic Hyperactivity secondary to Anoxic Brain Injury CT chest 01/04 - "airspace consolidation in the left upper lobe, and left lower lobe, with central air bronchograms, consistent with pneumonia. Small bilateral pleural effusions." Sacral culture - MRSA Sputum - Pseudomonas Aeruginosa, E. coli esbl Left hip Cx: 3+ WBCs, 1+ yeast Right buttock Cx: Enterococcus Faecalis Urine Cx: 4+ yeast, not Narda Albicans - still pending ID and Pulmonology consulted ID recommends total 2 week treatment - completes full course 01/21 Tracheal suctioning as needed Stable vitals reportedly not accepted back to the facility she came from - due to financial i ssues / outstanding balance mental health social worker assisting in finding new facility Quadriplegia/myoclonic check/spasms continue home dose gabapentin and baclofen Monitor for seizures VTE: Lovenox Code: Full Dispo: Daughter wants to continue aggressive treatment. She is also looking for a care home facility inside [place]. Social service assisting with disposition
[2023-01-20] MEDS: GABAPENTIN 300 MG CAP FT SCH ×3 (09:09→21:10)
[2023-01-20] MEDS: ENOXAPARIN 40 MG/0.4 ML SQ SCH (09:09)
[2023-01-20] MEDS: clonazePAM 0.5 MG TAB FT SCH ×3 (09:09→21:10)
[2023-01-20] MEDS: ASPIRIN 81 MG CHEWABLE TABLET FT SCH (09:09)
[2023-01-20] MEDS: BACLOFEN 10 MG TAB FT SCH ×3 (09:09→21:10)
[2023-01-20] MEDS: JEVITY 1.2 CAL LIQUID 1,000 ML BOT FT SCH ×4 (09:19→21:10)
[2023-01-20] MEDS: SERTRALINE HCL 100 MG TAB FT SCH (21:10)
[2023-01-20] MEDS: MICAFUNGIN SODIUM 100 MG in NA CHLORIDE 0.9% 100 ML IV SCH (21:11)
[2023-01-21 04:56] LABS: Magnesium 2.1 mg/dL (1.6-2.4); Phosphorus 3.6 mg/dL (2.5-4.9); Potassium 3.8 mEq/L (3.5-5.1)
[2023-01-21] MEDS ORDERED: KCL 20 MEQ/100 mL IVPB 20 MEQ/100 ML BAG IV SCH (06:00)
--- NOTE | 2023-01-21 07:57 | P.PN ---
Date of Service: 01/21/23 Subjective: stable, no acute events overnight ROS: unable to fully obtain Physical Exam: Gen: Awake, cachectic, NAD HEENT: normal conjunctiva, sclera anicteric, trach collar CV: regular rate & rhythm, no edema Pulm: non-labored respirations on trach collar, clear bilaterally Abd: soft, non-tender, PEG tube in place Skin: Sacral decubitus ulcers present Neuro: Not verbally responsive, quadriplegia; follows some basic commands - opens/closes eyes in response to questions Randolph PEG tube Trach collar vitals reviewed Problem List: Sepsis secondary to MRSA-Infected Sacral Wound, ESBL E. coli/MDR Pseudomonas Aeruginosa Pneumonia, and Fungal UTI with Fungemia Multiple Pressure Ulcers [(1) Sacrum - Unstageable, (2) Left Hip - Unstageable, (3) Right Buttock - Unstageable, (4) Right Ankle - Stage I) History of MRSA, Pseudomonas Aeruginosa, Klebsiella Oxytoca, Pseudomonas Cepacia , Acinetobacter, Enterobacter Cloacae, and Stenotrphoomonas Maltophilia Infections History of Opioid Overdose complicated by Anoxic Brain Injury now Trach/PEG- dependent Paroxysmal Sympathetic Hyperactivity secondary to Anoxic Brain Injury CT chest 01/04 - "airspace consolidation in the left upper lobe, and left lower lobe, with central air bronchograms, consistent with pneumonia. Small bilateral pleural effusions." Sacral culture - MRSA Sputum - Pseudomonas Aeruginosa, E. coli esbl Left hip Cx: 3+ WBCs, 1+ yeast Right buttock Cx: Enterococcus Faecalis Urine Cx: 4+ yeast, not Narda Albicans - still pending ID and Pulmonology consulted ID recommends total 2 week treatment - completes full course 01/21 Tracheal suctioning as needed Stable vitals reportedly not accepted back to the facility she came from - due to financial issues / outstanding balance nephrology social worker assisting in finding new facility Quadriplegia/myoclonic check/spasms continue home dose gabapentin and baclofen Monitor for seizures VTE: Lovenox Code: Full Dispo: Daughter wants to continue aggressive treatment. She is also looking for a [facility] facility inside [place]. Social service assisting with disposition
[2023-01-21] MEDS: Ringers Lactate 1,000 ML IV SCH ×3 (08:01→18:41)
[2023-01-21] MEDS: ENOXAPARIN 40 MG/0.4 ML SQ SCH (08:04)
[2023-01-21] MEDS: clonazePAM 0.5 MG TAB FT SCH ×3 (08:04→21:42)
[2023-01-21] MEDS: GABAPENTIN 300 MG CAP FT SCH ×3 (08:04→21:41)
[2023-01-21] MEDS: BACLOFEN 10 MG TAB FT SCH ×3 (08:04→21:41)
[2023-01-21] MEDS: ASPIRIN 81 MG CHEWABLE TABLET FT SCH (08:04)
[2023-01-21] MEDS: JEVITY 1.2 CAL LIQUID 1,000 ML BOT FT SCH ×4 (08:05→21:42)
[2023-01-21 11:07] LABS: Potassium 4.3 mEq/L (3.5-5.1)
[2023-01-21] MEDS: MICAFUNGIN SODIUM 100 MG in NA CHLORIDE 0.9% 100 ML IV SCH (21:42)
[2023-01-21] MEDS: SERTRALINE HCL 100 MG TAB FT SCH (21:42)
[2023-01-22] MEDS: Ringers Lactate 1,000 ML IV SCH ×4 (03:53→23:50)
--- NOTE | 2023-01-22 07:19 | P.PN ---
Date of Service: 01/22/23 Subjective: stable, no acute events overnight afebrile, tolerating tube feeds ROS: unable to fully obtain Physical Exam: Gen: Awake, NAD HEENT: normal conjunctiva, sclera anicteric, trach collar CV: regular rate & rhythm, no edema Pulm: non-labored respirations on trach collar, clear bilaterally Abd: soft, non-tender, PEG tube in place Skin: Sacral decubitus ulcers present Neuro: Not verbally responsive, quadriplegia; follows some basic commands - open s/closes eyes in response to questions. understands Randolph PEG tube Trach collar vitals reviewed Problem List: Sepsis secondary to MRSA-Infected Sacral Wound, ESBL E. coli/MDR Pseudomonas Aeruginosa Pneumonia, and Fungal UTI with Fungemia Multiple Pressure Ulcers [(1) Sacrum - Unstageable, (2) Left Hip - Unstageable, (3) Right Buttock - Unstageable, (4) Right Ankle - Stage I) History of MRSA, Pseudomonas Aeruginosa, Klebsiella Oxytoca, Pseudomonas Cepacia , Acinetobacter, Enterobacter Cloacae, and Stenotrphoomonas Maltophilia Infections History of Opioid Overdose complicated by Anoxic Brain Injury now Trach/PEG- dependent Paroxysmal Sympathetic Hyperactivity secondary to Anoxic Brain Injury CT chest 01/04 - "airspace consolidation in the left upper lobe, and left lower lobe, with central air bronchograms, consistent with pneumonia. Small bilateral pleural effusions." Sacral culture - MRSA Sputum - Pseudomonas Aeruginosa, E. coli esbl Left hip Cx: 3+ WBCs, 1+ yeast Right buttock Cx: Enterococcus Faecalis Urine Cx: 4+ yeast, not Narda Albicans - still pending ID and Pulmonology consulted ID recommends total 2 week treatment Tracheal suctioning as needed Stable vitals reportedly not accepted back to the facility she came from - due to financial issues / outstanding balance director social service assisting in finding new facility Quadriplegia/myoclonic check/spasms continue home dose gabapentin and baclofen Monitor for seizures VTE: Lovenox Code: Full Dispo: Daughter wants to continue aggressive treatment. She is also looking for a [facility] facility inside [place]. Social service assisting with disposition; approved - waiting on daughter to approve
[2023-01-22] MEDS: GABAPENTIN 300 MG CAP FT SCH ×3 (09:13→21:03)
[2023-01-22] MEDS: BACLOFEN 10 MG TAB FT SCH ×3 (09:13→21:03)
[2023-01-22] MEDS: ASPIRIN 81 MG CHEWABLE TABLET FT SCH (09:13)
[2023-01-22] MEDS: clonazePAM 0.5 MG TAB FT SCH ×3 (09:13→21:04)
[2023-01-22] MEDS: ENOXAPARIN 40 MG/0.4 ML SQ SCH (09:13)
[2023-01-22] MEDS: JEVITY 1.2 CAL LIQUID 1,000 ML BOT FT SCH ×4 (09:13→21:04)
[2023-01-22] MEDS: MICAFUNGIN SODIUM 100 MG in NA CHLORIDE 0.9% 100 ML IV SCH (21:03)
[2023-01-22] MEDS: SERTRALINE HCL 100 MG TAB FT SCH (21:03)
--- NOTE | 2023-01-23 07:05 | P.PN ---
Date of Service: 01/23/23 Subjective: stable, no acute events overnight awaiting to hear from daughter ROS: unable to fully obtain Physical Exam: Gen: Awake, NAD HEENT: normal conjunctiva, sclera anicteric, trach collar CV: regular rate & rhythm, no edema Pulm: non-labored respirations on trach collar, clear bilaterally Abd: soft, non-tender, PEG tube in place Skin: Sacral decubitus ulcers present, no purulent drainage Neuro: Not verbally responsive, quadriplegia; follows some basic commands - opens/closes eyes in response to questions Randolph PEG tube Trach collar vitals reviewed Problem List: Sepsis secondary to MRSA-Infected Sacral Wound, ESBL E. coli/MDR Pseudomonas Aeruginosa Pneumonia, and Fungal UTI with Fungemia Multiple Pressure Ulcers [(1) Sacrum - Unstageable, (2) Left Hip - Unstageable, (3) Right Buttock - Unstageable, (4) Right Ankle - Stage I) History of MRSA, Pseudomonas Aeruginosa, Klebsiella Oxytoca, Pseudomonas Cepacia , Acinetobacter, Enterobacter Cloacae, and Stenotrphoomonas Maltophilia Infections History of Opioid Overdose complicated by Anoxic Brain Injury now Trach/PEG- dependent Paroxysmal Sympathetic Hyperactivity secondary to Anoxic Brain Injury CT chest 01/04 - "airspace consolidation in the left upper lobe, and left lower lobe, with central air bronchograms, consistent with pneumonia. Small bilateral pleural effusions." Sacral culture - MRSA Sputum - Pseudomonas Aeruginosa, E. coli esbl Left hip Cx: 3+ WBCs, 1+ yeast Right buttock Cx: Enterococcus Faecalis Urine Cx: 4+ yeast, not Narda Albicans - still pending ID and Pulmonology consulted ID recommended total 2 week treatment Tracheal suctioning as needed Stable vitals reportedly not accepted back to the facility she came from - due to financial issues / outstanding balance neonatal social worker assisting in finding new facility have found a facility that has accepted the patient, awaiting for daughter to tour and accept. No other options Quadriplegia/myoclonic check/spasms continue home dose gabapentin and baclofen Monitor for seizures VTE: Lovenox Code: Full Dispo: Daughter wants to continue aggressive treatment. Social service assisting with disposition; approved - waiting on daughter to approve
[2023-01-23] MEDS: ENOXAPARIN 40 MG/0.4 ML SQ SCH (08:45)
[2023-01-23] MEDS: ASPIRIN 81 MG CHEWABLE TABLET FT SCH (08:45)
[2023-01-23] MEDS: JEVITY 1.2 CAL LIQUID 1,000 ML BOT FT SCH ×4 (08:45→21:04)
[2023-01-23] MEDS: clonazePAM 0.5 MG TAB FT SCH ×3 (08:45→20:55)
[2023-01-23] MEDS: GABAPENTIN 300 MG CAP FT SCH ×3 (08:45→20:55)
[2023-01-23] MEDS: BACLOFEN 10 MG TAB FT SCH ×3 (08:45→20:55)
[2023-01-23] MEDS: MEDIHONEY 44 ML TOPICAL TUBE TOP SCH (08:46)
[2023-01-23] MEDS: Ringers Lactate 1,000 ML IV SCH ×4 (08:47→20:50)
--- NOTE | 2023-01-23 17:19 | PN ---
Subjective: Patient is lying in bed, opens eyes spontaneously, not in any acute. Objective: Vital Signs: Temperature 97, pulse 89, respirations 16, blood pressure 110/77. No changes in examination. Laboratory Data: WBC 5.2, hemoglobin 9.3, platelets are 305. Chemistry is showing BUN of 9, creatin ine of 0.3. Patient is currently on empiric antibiotic treatment, micafungin and treatment, which is finishing to wawarsing. Continue supportive care and wound care. Assessment And Plan: Chronic respiratory failure, multiple wounds, moderate protein-calorie malnouri shment, anemia of chronic disease. We will follow the patient as needed. NF/MODL Voice ID: [id number] Report ID: [id number]
[2023-01-23] MEDS: MICAFUNGIN SODIUM 100 MG in NA CHLORIDE 0.9% 100 ML IV SCH (20:54)
[2023-01-23] MEDS: SERTRALINE HCL 100 MG TAB FT SCH (20:55)
[2023-01-24] MEDS: Ringers Lactate 1,000 ML IV SCH ×3 (03:58→17:45)
[2023-01-24 06:39] LABS: Phosphorus 4.8 mg/dL (2.5-4.9)
[2023-01-24] MEDS: ASPIRIN 81 MG CHEWABLE TABLET FT SCH (09:46)
[2023-01-24] MEDS: ENOXAPARIN 40 MG/0.4 ML SQ SCH (09:46)
[2023-01-24] MEDS: clonazePAM 0.5 MG TAB FT SCH ×3 (09:46→21:09)
[2023-01-24] MEDS: JEVITY 1.2 CAL LIQUID 1,000 ML BOT FT SCH ×4 (09:47→21:10)
[2023-01-24] MEDS: BACLOFEN 10 MG TAB FT SCH ×3 (09:47→21:09)
[2023-01-24] MEDS: MEDIHONEY 44 ML TOPICAL TUBE TOP SCH (09:47)
[2023-01-24] MEDS: GABAPENTIN 300 MG CAP FT SCH ×3 (09:47→21:10)
--- NOTE | 2023-01-24 14:53 | P.PN ---
Subjective Date of Service: 01/25/23 Chief Complaint: Pneumonia, sepsis No major changes. Patient has been stable on oxygen by trach collar with stable vitals. Physical Examination - Vital Signs Temperature: 97.4 F Blood Pressure: 107/69 Pulse: 87 Respirations: 16 Pulse Ox (%): 96 Assessment And Plan - Plan Physical Exam: Gen: Awake, NAD Neck: trach collar CV: regular rate & rhythm, no edema Pulm: non-labored respirations on trach collar, clear bilaterally Abd: soft, non-tender, PEG tube in place Skin: Sacral decubitus ulcers present, no purulent drainage Neuro: Not verbally responsive, quadriplegia. Randolph PEG tube Trach collar vitals reviewed Problem List: Sepsis secondary to MRSA-Infected Sacral Wound, ESBL E. coli/MDR Pseudomonas Aeruginosa Pneumonia, and Fungal UTI with Fungemia Multiple Pressure Ulcers [(1) Sacrum - Unstageable, (2) Left Hip - Unstageable, (3) Right Buttock - Unstageable, (4) Right Ankle - Stage I) History of MRSA, Pseudomonas Aeruginosa, Klebsiella Oxytoca, Pseudomonas Cepacia , Acinetobacter, Enterobacter Cloacae, and Stenotrphoomonas Maltophilia Infections History of Opioid Overdose complicated by Anoxic Brain Injury now Trach/PEG- dependent Paroxysmal Sympathetic Hyperactivity secondary to Anoxic Brain Injury CT chest 01/04 - "airspace consolidation in the left upper lobe, and left lower lobe, with central air bronchograms, consistent with pneumonia. Small bilateral pleural effusions." Sacral culture - MRSA Sputum - Pseudomonas Aeruginosa, E. coli esbl Left hip Cx: 3+ WBCs, 1+ yeast Right buttock Cx: Enterococcus Faecalis Urine Cx: 4+ yeast, not Narda Albicans - still pending ID and Pulmonology following. Patient completed antibiotics today. Tracheal suctioning as needed Stable vitals Patient has been accepted to a facility, awaiting for daughter to tour and accept the facility. Quadriplegia/myoclonic check/spasms continue home dose gabapentin and baclofen Monitor for seizures VTE: Lovenox Code: Full Dispo: Long-term care placement
[2023-01-24] MEDS: MICAFUNGIN SODIUM 100 MG in NA CHLORIDE 0.9% 100 ML IV SCH (21:10)
[2023-01-24] MEDS: SERTRALINE HCL 100 MG TAB FT SCH (21:10)
[2023-01-25] MEDS: Ringers Lactate 1,000 ML IV SCH ×4 (02:50→18:05)
[2023-01-25 04:54] LABS: Absolute Lymphocytes (CBC) 1.7 K/uL (0.7-4.9); Hematocrit 30.2 % (36.0-45.0); MCV 80.3 fL (80-100); MPV 7.1 fL (7.6-11.3); RBC Red Blood Cell Count 3.76 M/uL (3.86-4.86)
[2023-01-25 05:14] LABS: Potassium 3.9 mEq/L (3.5-5.1)
[2023-01-25] MEDS: clonazePAM 0.5 MG TAB FT SCH ×3 (09:08→21:29)
[2023-01-25] MEDS: MEDIHONEY 44 ML TOPICAL TUBE TOP SCH (09:08)
[2023-01-25] MEDS: GABAPENTIN 300 MG CAP FT SCH ×3 (09:08→21:00)
[2023-01-25] MEDS: BACLOFEN 10 MG TAB FT SCH ×3 (09:08→21:00)
[2023-01-25] MEDS: ENOXAPARIN 40 MG/0.4 ML SQ SCH (09:08)
[2023-01-25] MEDS: ASPIRIN 81 MG CHEWABLE TABLET FT SCH (09:08)
[2023-01-25] MEDS: JEVITY 1.2 CAL LIQUID 1,000 ML BOT FT SCH ×4 (09:09→21:30)
--- NOTE | 2023-01-25 14:37 | P.PN ---
Subjective Date of Service: 01/25/23 Chief Complaint: Pneumonia, sepsis No major issues. Patient has been stable on oxygen by trach collar with stable vitals. Physical Examination - Vital Signs Temperature: 97.4 F Blood Pressure: 107/69 Pulse: 87 Respirations: 16 Pulse Ox (%): 96 Assessment And Plan - Plan Physical Exam: Gen: Awake, NAD Neck: trach collar CV: regular rate & rhythm, no edema Pulm: non-labored respirations on trach collar, clear bilaterally Abd: soft, non-tender, PEG tube in place Skin: Sacral decubitus ulcers present, no purulent drainage Neuro: Not verbally responsive, quadriplegia. Randolph PEG tube Trach collar vitals reviewed Problem List: Sepsis secondary to MRSA-Infected Sacral Wound, ESBL E. coli/MDR Pseudomonas Aeruginosa Pneumonia, and Fungal UTI with Fungemia Multiple Pressure Ulcers [(1) Sacrum - Unstageable, (2) Left Hip - Unstageable, (3) Right Buttock - Unstageable, (4) Right Ankle - Stage I) History of MRSA, Pseudomonas Aeruginosa, Klebsiella Oxytoca, Pseudomonas Cepacia , Acinetobacter, Enterobacter Cloacae, and Stenotrphoomonas Maltophilia Infections History of Opioid Overdose complicated by Anoxic Brain Injury now Trach/PEG- dependent Paroxysmal Sympathetic Hyperactivity secondary to Anoxic Brain Injury CT chest 01/04 - "airspace consolidation in the left upper lobe, and left lower lobe, with central air bronchograms, consistent with pneumonia. Small bilateral pleural effusions." Sacral culture - MRSA Sputum - Pseudomonas Aeruginosa, E. coli esbl Left hip Cx: 3+ WBCs, 1+ yeast Right buttock Cx: Enterococcus Faecalis Urine Cx: 4+ yeast, not Narda Albicans - still pending ID and Pulmonology following. Patient completed antibiotics today. Tracheal suctioning as needed Stable vitals Patient has been accepted to a facility. Waiting for patient's daughter to tour the facility for discharge. Quadriplegia/myoclonic check/spasms continue home dose gabapentin and baclofen Monitor for seizures VTE: Lovenox Code: Full Dispo: Long-term care placement
[2023-01-25] MEDS: SERTRALINE HCL 100 MG TAB FT SCH (21:29)
[2023-01-26] MEDS: Ringers Lactate 1,000 ML IV SCH ×3 (05:00→13:57)
[2023-01-26] MEDS: ENOXAPARIN 40 MG/0.4 ML SQ SCH (08:55)
[2023-01-26] MEDS: GABAPENTIN 300 MG CAP FT SCH ×3 (08:55→21:51)
[2023-01-26] MEDS: BACLOFEN 10 MG TAB FT SCH ×3 (08:55→21:51)
[2023-01-26] MEDS: clonazePAM 0.5 MG TAB FT SCH ×3 (08:55→21:51)
[2023-01-26] MEDS: ASPIRIN 81 MG CHEWABLE TABLET FT SCH (08:55)
[2023-01-26] MEDS: JEVITY 1.2 CAL LIQUID 1,000 ML BOT FT SCH ×4 (08:57→21:51)
[2023-01-26] MEDS: MEDIHONEY 44 ML TOPICAL TUBE TOP SCH (08:59)
--- NOTE | 2023-01-26 17:37 | P.PN ---
Subjective Date of Service: 01/26/23 Chief Complaint: Pneumonia, sepsis No new changes from yesterday. Patient has been stable on oxygen by trach collar with stable vitals for several days. Physical Examination - Vital Signs Temperature: 97.5 F Blood Pressure: 175/78 Pulse: 108 Respirations: 16 Pulse Ox (%): 94 Assessment And Plan - Plan Physical Exam: Gen: Awake, NAD Neck: trach collar CV: regular rate & rhythm, no edema Pulm: non-labored respirations on trach collar, clear bilaterally Abd: soft, non-tender, PEG tube in place Skin: Sacral decubitus ulcers present, no purulent drainage Neuro: Not verbally responsive, quadriplegia. Randolph PEG tube Trach collar vitals reviewed Problem List: Sepsis secondary to MRSA-Infected Sacral Wound, ESBL E. coli/MDR Pseudomonas Aeruginosa Pneumonia, and Fungal UTI with Fungemia Multiple Pressure Ulcers [(1) Sacrum - Unstageable, (2) Left Hip - Unstageable, (3) Right Buttock - Unstageable, (4) Right Ankle - Stage I) History of MRSA, Pseudomonas Aeruginosa, Klebsiella Oxytoca, Pseudomonas Cepacia , Acinetobacter, Enterobacter Cloacae, and Stenotrphoomonas Maltophilia Infections History of Opioid Overdose complicated by Anoxic Brain Injury now Trach/PEG- dependent Paroxysmal Sympathetic Hyperactivity secondary to Anoxic Brain Injury CT chest 01/04 - "airspace consolidation in the left upper lobe, and left lower lobe, with central air bronchograms, consistent with pneumonia. Small bilateral pleural effusions." Sacral culture - MRSA Sputum - Pseudomonas Aeruginosa, E. coli esbl Left hip Cx: 3+ WBCs, 1+ yeast Right buttock Cx: Enterococcus Faecalis Urine Cx: 4+ yeast, not Narda Albicans - still pending ID and Pulmonology following. Patient completed antibiotics today. Tracheal suctioning as needed Stable vitals Patient has been accepted to a facility. Waiting for patient's daughter to tour the facility and complete paperwork for discharge. Quadriplegia/myoclonic check/spasms continue home dose gabapentin and baclofen Monitor for seizures VTE: Lovenox Code: Full Dispo: Long-term care placement
[2023-01-26] MEDS: SERTRALINE HCL 100 MG TAB FT SCH (21:51)
[2023-01-27] MEDS: Ringers Lactate 1,000 ML IV SCH ×3 (01:48→12:20)
[2023-01-27] MEDS: clonazePAM 0.5 MG TAB FT SCH ×3 (08:19→20:16)
[2023-01-27] MEDS: GABAPENTIN 300 MG CAP FT SCH ×3 (08:19→20:16)
[2023-01-27] MEDS: ASPIRIN 81 MG CHEWABLE TABLET FT SCH (08:19)
[2023-01-27] MEDS: BACLOFEN 10 MG TAB FT SCH ×3 (08:19→20:16)
[2023-01-27] MEDS: ENOXAPARIN 40 MG/0.4 ML SQ SCH (08:19)
[2023-01-27] MEDS: JEVITY 1.2 CAL LIQUID 1,000 ML BOT FT SCH ×4 (08:33→20:16)
[2023-01-27] MEDS: MEDIHONEY 44 ML TOPICAL TUBE TOP SCH (08:34)
[2023-01-27 09:35] VITALS: O2SAT 93
--- NOTE | 2023-01-27 14:04 | PN ---
Subjective: Patient lying in bed, opens eyes spontaneously. Objective: Vital Signs: Temperature 97, pulse 100, respirations 20, blood pressure . Examination unchanged. Laboratory Data: No new labs available at this time. Patient is off antibiotic and on no antifungal medications. Assessment And Plan: Chronic respiratory failure, multiple wounds to the body with the sacral stage IV wound and hip wounds. Methicillin-resistant Staphylococcus aureus infection, multidrug-resistant pseudomonas and extended spectrum beta-lactamase Escherichia coli, fungal infection of urinary tract system, status post treatment. Multiple wounds including sacral unstageable, left hip unstageable, r ight buttock unstageable, right ankle stage I. Prognosis guarded. I agree with the comfort care. F ollow patient as needed. NF/MODL Voice ID: [id number] Report ID: [id number]
--- NOTE | 2023-01-27 16:20 | P.PN ---
Subjective Date of Service: 01/27/23 Chief Complaint: Pneumonia, sepsis No new changes from yesterday. Stable on trach collar. Physical Examination - Vital Signs Temperature: 97.3 F Blood Pressure: 120/89 Pulse: 105 Respirations: 20 Pulse Ox (%): 93 Assessment And Plan - Plan Physical Exam: Gen: Awake, NAD Neck: trach collar CV: regular rate & rhythm, no edema Pulm: non-labored respirations on trach collar, clear bilaterally Abd: soft, non-tender, PEG tube in place Skin: Sacral decubitus ulcers present, no purulent drainage Neuro: Not verbally responsive, quadriplegia. Randolph PEG tube Trach collar vitals reviewed Problem List: Sepsis secondary to MRSA-Infected Sacral Wound, ESBL E. coli/MDR Pseudomonas Aeruginosa Pneumonia, and Fungal UTI with Fungemia Multiple Pressure Ulcers [(1) Sacrum - Unstageable, (2) Left Hip - Unstageable, (3) Right Buttock - Unstageable, (4) Right Ankle - Stage I) History of MRSA, Pseudomonas Aeruginosa, Klebsiella Oxytoca, Pseudomonas Cepacia , Acinetobacter, Enterobacter Cloacae, and Stenotrphoomonas Maltophilia Infections History of Opioid Overdose complicated by Anoxic Brain Injury now Trach/PEG- dependent Paroxysmal Sympathetic Hyperactivity secondary to Anoxic Brain Injury CT chest 01/04 - "airspace consolidation in the left upper lobe, and left lower lobe, with central air bronchograms, consistent with pneumonia. Small bilateral pleural effusions." Sacral culture - MRSA Sputum - Pseudomonas Aeruginosa, E. coli esbl Left hip Cx: 3+ WBCs, 1+ yeast Right buttock Cx: Enterococcus Faecalis Urine Cx: 4+ yeast, not Narda Albicans - still pending ID and Pulmonology following. Patient completed antibiotics today. Tracheal suctioning as needed Stable vitals Patient has been accepted to a facility. Waiting for patient's daughter to tour the facility and complete paperwork at the [facility]. Quadriplegia/myoclonic check/spasms continue home dose gabapentin and baclofen Monitor for seizures VTE: Lovenox Code: Full Dispo: Long-term care placement
--- NOTE | 2023-01-27 18:32 | P.DS ---
Admission Date: 01/04/23 Discharge Date: 01/27/23 Disposition: TRANSFER TO CORRECTION Discharge Condition: FAIR Reason for Admission: Pneumonia, sepsis Brief History of Present Illness: 46-year-old female with history of anoxic brain injury who is trach dependent with PEG tube in place presents emergency department for dyspnea. long term staff suctioned patient's trach prior to EMS arrival which did improve her symptoms. Of note patient was discharged on 12/02/[address] with [address]ICC line in place on antibiotics including a total of 6 weeks of IV ceftazidime and p.o. doxycycline which [facility] staff reports that she has been receiving. She had multidrug-resistant organisms in her sputum, wounds at that time. In the ER she did have low-grade fever, SIRS criteria were present including tachycardia, leukocytosis. Her lactic acid is 1.5 she has been normotensive at this time urinalysis showed 20-50 white blood cell, 500 leuk esterase, nitrate negative urine. Urine culture was sent patient does have chronic indwelling Randolph catheter in place. She also has 3 sacral wounds present on admission. Chest x- ray showed suspected left-sided pneumonia, follow-up CT chest without contrast was performed which revealed airspace consolidation in the left upper lobe, and left lower lobe with central air bronchograms consistent with pneumonia. Small bilateral pleural effusions. ED provider wishes to admit for further evaluation and management of pneumonia that has failed outpatient management. Hospital Course: Diagnosis Sepsis secondary to MRSA-Infected Sacral Wound, ESBL E. coli/MDR Pseudomonas Aeruginosa Pneumonia, and Fungal UTI with Fungemia Multiple Pressure Ulcers [(1) Sacrum - Unstageable, (2) Left Hip - Unstageable, (3) Right Buttock - Unstageable, (4) Right Ankle - Stage I) History of MRSA, Pseudomonas Aeruginosa, Klebsiella Oxytoca, Pseudomonas Cepacia , Acinetobacter, Enterobacter Cloacae, and Stenotrphoomonas Maltophilia Infections History of Opioid Overdose complicated by Anoxic Brain Injury now Trach/PEG- dependent Paroxysmal Sympathetic Hyperactivity secondary to Anoxic Brain Injury CT chest 01/04 - "airspace consolidation in the left upper lobe, and left lower lobe, with central air bronchograms, consistent with pneumonia. Small bilateral pleural effusions." Sacral culture - MRSA Sputum - Pseudomonas Aeruginosa, E. coli esbl Left hip Cx: 3+ WBCs, 1+ yeast Right buttock Cx: Enterococcus Faecalis Urine Cx: 4+ yeast, not Narda Albicans. ID and Pulmonology assisted with management. Patient treated with meropenem and vancomycin, later transitioned to Vabomere. Also treated with antifungals including fluconazole, transition to micafungin. Patient completed antibiotics. Tracheal suctioning as needed Vitals have been stable Patient has been accepted to a facility. Quadriplegia/myoclonic check/spasms continued home dose gabapentin and baclofen Monitor for seizures. Other home medications resumed on discharge. Vital Signs/Physical Exam: Temp Pulse Resp BP Pulse Ox 97.3 F 105 H 20 120/89 93 01/27/23 16:20 01/27/23 16:20 01/27/23 16:20 01/27/23 16:20 01/27/23 16:20 General: Other (Awake) HEENT: PERRLA, EOMI Neck: JVD not distended, Other (Tracheostomy collar) Respiratory: Clear to auscultation bilaterally, Normal air movement Cardiovascular: No edema, Regular rate/rhythm, Normal S1 S2 Gastrointestinal: Soft and benign, Non-distended Neurological: Other (Quadriplegia.) Laboratory Data at Discharge: WBC 5.90 thou/uL (4.3-10.9) 01/25/23 04:35 Hgb 9.9 g/dL (12.0-15.0) L 01/25/23 04:35 Hct 30.2 % (36.0-45.0) L 01/25/23 04:35 Plt Count 332 thou/uL (152-406) 01/25/23 04:35 PT 11.7 SECONDS (9.5-12.5) 01/04/23 04:16 INR 1.06 01/04/23 04:16 APTT 29.3 SECONDS (24.3-36.9) 01/04/23 04:16 Sodium 136 mEq/L (136-145) 01/25/23 04:35 Potassium 3.9 mEq/L (3.5-5.1) 01/25/23 04:35 BUN 13 mg/dL (7-18) 01/25/23 04:35 Creatinine 0.45 mg/dL (0.55-1.02) L 01/25/23 04:35 Glucose 104 mg/dL (74-106) 01/25/23 04:35 Phosphorus 4.8 mg/dL (2.5-4.9) 01/24/23 06:10 Magnesium 2.0 mg/dL (1.6-2.4) 01/24/23 06:10 Total Bilirubin 0.3 mg/dL (0.2-1.0) 01/19/23 05:48 AST 26 U/L (15-37) 01/19/23 05:48 ALT 24 U/L (13-56) 01/19/23 05:48 Alkaline Phosphatase 117 U/L (45-117) 01/19/23 05:48 Home Medications: Gabapentin [Neurontin*] 300 mg FT TID 04/22/22 Polyethylene Glycol 3350 [Miralax] 17 gm FT DAILY 04/22/22 cloNIDine HCL [Clonidine HCl] 0.1 mg PO Q8HP PRN 04/22/22 Ipratropium Neb [Atrovent*] 0.5 mg NEB [id number] amp 04/25/22 Sertraline [Zoloft*] 100 mg FT BEDTIME 04/29/22 Acetylcyst 20% Resp [Mucomyst 20% (FOR RESPIRATORY)*] 10 ml IH TID 06/25/22 Carboxymethylcellulose Sodium [Artificial Tears] 1 gtt EACH EYE Q6HP PRN 06/25/22 clonazePAM [Klonopin] 1 tab FT TID 06/25/22 Aspirin Chewable [Aspirin Chewable*] 81 mg FT DAILY 07/11/22 Atorvastatin Calcium [Lipitor*] 20 mg FT BEDTIME 07/11/22 Rivaroxaban [Xarelto*] 10 mg FT BEDTIME 07/11/22 Ascorbic Acid [Vitamin C*] 500 mg FT BID 01/04/23 Baclofen 10 mg FT TID 01/04/23 Ferrous Sulfate [Ferrous Sulfate Elixir*] 5 ml FT DAILY 01/05/23 Zinc Sulfate [Zinc Sulfate*] 1 cap FT DAILY 01/05/23 Acetaminophen [Tylenol*] 650 mg OR Q6HP PRN supp 01/27/23 Jevity 1.2 Danie Liquid 300 ml FT QID bot 01/27/23 Medihoney [Medihoney Woundcare Gel*] 1 appl TOP DAILY tube 01/27/23 Followup: Unknown,U [Primary Care Provider] -
[2023-01-27] MEDS: SERTRALINE HCL 100 MG TAB FT SCH (20:16)
[2023-01-27 20:32] VITALS: BP 109/71; TEMP 97.6
== END 2023-01-27 21:18 | DRG 871 ==
LOC: ER 02:21 → ERHOLD 07:03 → 2ND 19:43
PROVIDERS: ADMIT Internal Medicine; ATTEND Internal Medicine
DX: A41.51 Sepsis due to Escherichia coli [E. coli] (principal); G82.50 Quadriplegia, unspecified; J15.9 Unspecified bacterial pneumonia; Z68.1 Body mass index [BMI] 19.9 or less, adult; J96.10 Chronic respiratory failure, unspecified whether with hypoxia or hypercapnia; R64 Cachexia; G93.1 Anoxic brain damage, not elsewhere classified; N39.0 Urinary tract infection, site not specified; B48.8 Other specified mycoses; Z16.12 Extended spectrum beta lactamase (ESBL) resistance; Z16.24 Resistance to multiple antibiotics; E44.0 Moderate protein-calorie malnutrition; A41.02 Sepsis due to Methicillin resistant Staphylococcus aureus; A41.52 Sepsis due to Pseudomonas; R65.10 Systemic inflammatory response syndrome (SIRS) of non-infectious origin without acute organ dysfunction; E78.5 Hyperlipidemia, unspecified; L89.150 Pressure ulcer of sacral region, unstageable; L89.220 Pressure ulcer of left hip, unstageable; L89.310 Pressure ulcer of right buttock, unstageable; L89.511 Pressure ulcer of right ankle, stage 1; D63.8 Anemia in other chronic diseases classified elsewhere; G90.8 Other disorders of autonomic nervous system; Z93.0 Tracheostomy status; Z93.1 Gastrostomy status; Z88.1 Allergy status to other antibiotic agents; Z88.8 Allergy status to other drugs, medicaments and biological substances; Z91.51 Personal history of suicidal behavior; Z86.14 Personal history of Methicillin resistant Staphylococcus aureus infection; Z79.82 Long term (current) use of aspirin; Z79.01 Long term (current) use of anticoagulants; Z79.899 Other long term (current) drug therapy; Z87.820 Personal history of traumatic brain injury; Z90.710 Acquired absence of both cervix and uterus; Z91.048 Other nonmedicinal substance allergy status; Z20.822 Contact with and (suspected) exposure to COVID-19
CPT/HCPCS: 0240U; 36415; 51702; 71045; 71250; 80048; 80053; 80202; 81001; 81003; 82947; 83605; 83735; 84100; 84132; 85025; 85610; 85730; 87040; 87070; 87077; 87086; 87088; 87106; 87186; 87205; 93005; 94640; 99285; J0713; J1170; J1450; J1650; J2185; J2186; J2248; J3475; J3480; J7030; J7040; J7050; J7120; J7614; J7644; U0003